=== PATIENT | female | born 1960 | race Caucasian/White ===

== ENCOUNTER 2022-10-28 16:15 | Observation (INO) | payer OTHER, SELFPAY ==
[2022-10-28] VITALS (8 sets, daily range): BP systolic 111–138; BP diastolic 56–78; PULSE 76–94; RESP 16–24; TEMP 36.4; O2SAT 91–99; BMI 28.3
[2022-10-28 16:44] LABS: Basophils Absolute Auto 0.1 K/mm3 (0.0-0.1); Basophils Percent Auto 0.6 % (0.2-1.2); Eosinophils Absolute Auto 0.3 K/mm3 (0-0.3); Eosinophils Percent Auto 2.4 % (0-4.4); Hemoglobin 14.2 g/dL (12.0-15.0); Immature Granulocyte Absolute 0.07 K/mm3 (0.00-0.031); Immature Granulocyte Percent A 0.5 % (0-0.5); Lymphocytes Absolute Auto 1.64 K/mm3 (0.9-3.2); Lymphocytes Percent Auto 12.1 % (18.3-44.2); Mean Corpuscular Hemoglobin 30.7 pg (26-34); Mean Corpuscular Volume 92.9 fl (80-100); Mean Platelet Volume 10.2 fl (7.4-10.4); Neutrophils Absolute Auto 10.4 K/mm3 (1.3-6.7); Neutrophils Percent Auto 77.4 % (45.5-73.1); Platelet Count Result 356 k/mm3 (150-375); Red Blood Count 4.63 M/mm3 (4.2-5.4); Red Cell Distribution Width 12.1 % (11.5-14.5); White Blood Count 13.5 K/mm3 (4.5-10.0)
[2022-10-28 16:57] LABS: Alanine Aminotransferase 17 U/L (6-35); Alkaline Phosphatase 104 U/L (38-126); Anion Gap 8 mmol/L (8-16); Aspartate Amino Transferase 18 U/L (14-36); Bilirubin,Total 0.5 mg/dL (0.2-1.3); Blood Urea Nitrogen 22 mg/dL (7-17); Calcium 9.6 mg/dL (8.4-10.2); Carbon Dioxide 31 mmol/L (22-30); Chloride 94 mmol/L (98-107); Estimated CRCL calculation 58 ml/min; Estimated Glomerular Filt Rate 50; Glucose 475 mg/dL (65-110); Magnesium 1.4 mg/dL (1.6-2.3); Phosphorus 3.2 mg/dL (2.5-4.5); Potassium 4.6 mmol/L (3.4-5.0); Sodium 133 mmol/L (137-145)
--- NOTE | 2022-10-28 17:57 | ED.GENADULT ---
HPI - General Adult General Chief complaint: Recheck/Abnormal Lab/Rx <Sandro Hdz PA-C - Last Filed: 10/28/22 21:13> Stated complaint: high blood sugar <Sandro Hdz PA-C - Last Filed: 10/28/22 21:13> Time Seen by Provider: 10/28/22 17:23 <Sandro Hdz PA-C - Last Filed: 10/28/22 21:13> Source: patient <JUDD Luo Last Filed: 10/28/22 21:13> Mode of arrival: ambulatory <Sandro Hdz PA-C - Last Filed: 10/28/22 21:13> Limitations: no limitations <Sandro Hdz PA-C - Last Filed: 10/28/22 21:13> History of Present Illness HPI narrative: This is a 62-year-old female who presents to the ED with chief complaint of high blood sugars diagnosed at her outpatient appointment earlier today. They recommended that she go to an ER due to the abnormally high sugars. Patient recently had a CVA and was being treated at [facility]. She was discharged Thursday afternoon. She was receiving insulin in the hospital. She has a previous prescription for long-acting insulin but has not been able to pick it up in the last couple of days. She and family members state that she was sent to the ER to rule out DKA. Patient reports residual left-sided deficits in her leg and arm. She also has some speech deficit. Patient has additional complaints of left arm redness and tenderness at the AC. She states there is an infection of present from where the IV was in the hospital. She was given a prescription for Augmentin by her doctor today for this and they were going to recheck in a few days at her next appointment. Denies fevers, chills, nausea, vomiting, abdominal pain. Patient states she is feeling fine otherwise. <Sandro Hdz PA-C - Last Filed: 10/28/22 21:13> Related Data Home medications: Home Medications Medication Instructions Recorded Confirmed aspirin 81 mg chewable tablet 1 tablet PO DAILY 10/28/22 10/28/22 atorvastatin 40 mg tablet 40 mg PO DAILY 10/28/22 10/28/22 clotrimazole 1 % topical cream 1 applic topical BID 10/28/22 10/28/22 insulin glargine 100 unit/mL (3 10 unit subcut HS 10/28/22 10/28/22 mL) subcutaneous pen (Lantus Solostar U-100 Insulin) <Sandro Hdz PA-C - Last Filed: 10/28/22 21:13> Allergies/adverse reactions: Allergies Allergy/AdvReac Type Severity Reaction Status Date / Time No Known Allergies Allergy Verified 10/29/22 23:28 <Sandro Hdz PA-C - Last Filed: 10/28/22 21:13> PMFSH Social History Social History: Social History Smoking status: Never smoker Alcohol intake: never Substance use: never Lack of Transportation: No Lack of Food: Never True Current Housing: I Have Housing Concerned About Future Housing: No Difficulty Paying Gas/Electric Bills: No Difficulty Paying for Meds: No Currently Unemployed: No Education: High School Diploma/GED Difficulty w/ Childcare or Family Care: No Spiritual care concerns: No <Sandro Hdz PA-C - Last Filed: 10/28/22 21:13> Exam Narrative: GENERAL: Well-appearing, well-nourished, and in no acute distress. HEAD: Normocephalic, atraumatic. EYES: PERRLA and EOMI. ENT: Nares clear, no rhinorrhea or epistaxis. Mucous membranes moist. Oropharynx without tonsillar hypertrophy exudate or other lesions. NECK: Supple. No adenopathy or masses. CHEST: No respiratory distress. Clear to auscultation. No wheezes rales or rhonchi HEART: Regular rate and rhythm. No murmur heard. Normal peripheral pulses. ABDOMEN: Soft, nontender, nondistended, normal active bowel sounds. MSK: Normal range of motion. No edema. SKIN: 5 x 5 cm area of erythema to the left antecubital fossa. There is a central abscess appearing lesion. The area is very indurated. No active drainage. Warm to touch and quite tender. NEURO: Alert and oriented x3. No deficits above baseline. PSYCH: Normal mood and affect. <JUDD Luo
[2022-10-28 18:17] LABS: Appearance Urine Cloudy (Clear); Bacteria Urine 3+ /hpf; Bilirubin Urine Negative (Negative); Blood Urine 3+ (Negative); Color Urine Yellow (Yellow); Glucose Urine UA 3+ mg/dL (Negative); Ketones Urine Negative (Negative); Leukocyte Esterase Ur 2+ LEU/UL (Negative); Need Manual Microscopic Reviewed; Nitrate Urine Negative (Negative); Non Pathogenic Casts 0-2; Protein Urine 2+ mg/dL (Negative); Specific Grav Ur 1.025 (1.001-1.035); Squamous Epithelial Cell Urine Few /hpf (Few); Urobilinogen Urine 0.2 mg/dL (<2.0); WBC Urine >100 /hpf
[2022-10-28 18:19] LABS: Add Urine Microscopic? YES
[2022-10-28] MEDS: LACTATED RINGERS 1,000 ML 999 ML IV CONT ×2 (18:23)
[2022-10-28] MEDS: ONDANSETRON INJ 4 MG/2 ML VIAL IV PUSH (19:12)
[2022-10-28] MEDS: MORPHINE SULFATE (*CRX) 4 MG/ML INJ IV PUSH (19:12)
[2022-10-28] MEDS: CEFEPIME 2 GM/NS 50 ML 2 GM/50 ML BAG IVPB (19:13)
[2022-10-28 19:34] LABS: Glucose Point of Care 425 mg/dl (65-105)
[2022-10-28] MEDS: INSULIN HUMAN REGULAR (*BKC) 100 UNITS/ML 10 UNITS IV PUSH (19:38)
[2022-10-28] MEDS: metroNIDAZOLE 500 MG/ISO 100ML 500 MG/100 ML BAG 100 MG IVPB (19:51)
--- NOTE | 2022-10-28 20:24 | PM.IMHP ---
H&P: HPI History of Present Illness Date/Time: 10/28/22 20:24 Chief Complaint: Elevated blood sugars. Narrative: This is a 62-year-old with a past medical history including but not limited to recent stroke from which she was discharged from [facility]. She was sent to the ED with chief complaint of high blood sugars diagnosed at her outpatient appointment earlier today.? They recommended that she go to an ER due to the abnormally high sugars.? Patient recently had a CVA and was being treated at [facility] and was discharged Thursday afternoon.? She has a previous prescription for long-acting insulin but has not been able to pick it up in the last couple of days.? She and family members state that she was sent to the ER to rule out DKA. Patient reports residual left-sided deficits in her leg and arm.? She also has some speech deficit.Patient has additional complaints of left arm redness and tenderness at the AC.? She states there is an infection of present from where the IV was in the hospital.? She was given a prescription for Augmentin by her doctor today for this and they were going to recheck in a few days at her next appointment.? Denies fevers, chills, nausea, vomiting, abdominal pain.? Patient states she is feeling fine otherwise. On arrival to the emergency department, the patient was stable and afebrile with a temperature of 97.6?, pulse rate 94, respirations 16, blood pressure 124/78, pulse ox 96% on room air. Her CBC showed leukocytosis with 13.5 WBC, hemoglobin 14.2, hematocrit 43, platelet count 3 5 6. Her chemistry shows a sodium of 133, potassium 4.6, chloride 94, bicarbonate 31, BUN 22, creatinine 1.1 and glucose 475. She was given VA in insulin 10 units IV in started on IV antibiotic with cefepime. Hospital medicine was consulted for further evaluation and management. Patient will be admitted to the med surge unit under observation. Review of Systems Review of Systems: CONSTITUTIONAL: Negative for any fevers, chills, night sweats, tiredness, fatigue, malaise, anorexia or weight loss. CARDIOVASCULAR: Negative for chest pain, palpitations, dizziness, orthopnea or lower extremity edema. RESPIRATORY: Negative for shortness of breath, cough, wheezing, sputum. GASTROINTESTINAL: Negative for nausea vomiting diarrhea abdominal pain. GENITOURINARY: Negative for frequency, nocturia, dysuria, hematuria. GYNECOLOGIC: Negative for abnormal bleeding. HEMATOLOGIC: Negative for any abnormal bleeding or bruising. MUSCULOSKELETAL: Negative for joint swelling, stiffness or pain. SKIN: Positive for left arm is erythematous rash. Negative for drainage, oozing or eruption. NEUROLOGIC: Positive for left-sided neurologic deficits. PSYCHIATRIC: Negative for anxiety, panic, depression. [facility] Social History Social History Smoking status: Never smoker Alcohol intake: never Substance use: never Lack of Transportation: No Lack of Food: Never True Current Housing: I Have Housing Concerned About Future Housing: No Difficulty Paying Gas/Electric Bills: No Difficulty Paying for Meds: No Currently Unemployed: No Education: High School Diploma/GED Difficulty w/ Childcare or Family Care: No Spiritual care concerns: No Meds Home Medications and Allergies Home Medications Medication Instructions Recorded Confirmed Type amoxicillin 875 mg-potassium 1 tablet PO BID 10/28/22 10/28/22 History clavulanate 125 mg tablet aspirin 81 mg chewable tablet 1 tablet PO DAILY 10/28/22 10/28/22 History atorvastatin 40 mg tablet 40 mg PO DAILY 10/28/22 10/28/22 History clotrimazole 1 % topical cream 1 applic topical BID 10/28/22 10/28/22 History insulin glargine 100 unit/mL (3 10 unit subcut HS 10/28/22 10/28/22 History mL) subcutaneous pen (Lantus Solostar U-100 Insulin) Allergies Allergy/AdvReac Type Severity Reaction Status Date / Time No Known Allergies Allergy Ve
[2022-10-28 20:26] LABS: Beta-Hydroxybutyrate/Acetoacetate 0.26 mmol/L (0.02-0.27)
[2022-10-28 20:36] LABS: Glucose Point of Care 255 mg/dl (65-105)
[2022-10-28] MEDS: LACTATED RINGERS 1,000 ML 125 ML IV CONT (22:45)
[2022-10-28 22:48] LABS: Glucose Point of Care 219 mg/dl (65-105)
[2022-10-28] MEDS: INSULIN GLARGINE (*BKC) 100 UNITS/ML 15 UNITS SUB-Q (22:49)
[2022-10-29] MEDS: AMPICILLIN SULB 3 GM/NS 100 ML 3 GM/100 ML VIAL IVPB ×4 (00:46→18:01)
[2022-10-29] MEDS: MAGNESIUM SULF 1 GM/D5W 100 ML 1 GM/100 ML BAG IVPB (00:51)
[2022-10-29 01:11] LABS: Hemoglobin A1C 13.1 % (<5.7)
[2022-10-29 04:33] VITALS: BP 107/50; PULSE 83; RESP 16; TEMP 36.4; O2SAT 94
[2022-10-29] MEDS: ACETAMINOPHEN 325 MG TABLET 650 MG PO (04:39)
[2022-10-29 07:12] LABS: Creatine Kinase 107 U/L (30-135); Estimated CRCL calculation 58 ml/min; Estimated Glomerular Filt Rate 56; Magnesium 1.5 mg/dL (1.6-2.3)
[2022-10-29 07:21] LABS: Glucose Point of Care 259 mg/dl (65-105)
[2022-10-29] MEDS: INSULIN ASPART (*BKC) 100 UNITS/ML SUB-Q ×4 (08:59→21:11)
[2022-10-29] MEDS: ATORVASTATIN 40 MG TABLET PO (09:00)
[2022-10-29] MEDS: ASPIRIN 81 MG CHEWABLE TABLET PO (09:01)
[2022-10-29] MEDS: ENOXAPARIN 40 MG/0.4 ML SYRINGE SUB-Q (09:02)
[2022-10-29] MEDS: MICONAZOLE NITRATE 2% CREAM 30 GM TUBE 1 APPLIC TOPICAL ×2 (09:02→18:00)
[2022-10-29 11:35] LABS: Glucose Point of Care 296 mg/dl (65-105)
[2022-10-29] MEDS: LACTATED RINGERS 1,000 ML 125 ML IV CONT (12:33)
[2022-10-29 14:00] VITALS: BP 114/58; PULSE 68; RESP 14; TEMP 37; O2SAT 97
--- NOTE | 2022-10-29 16:05 | WPDPN ---
Progress Note: A&P Assessment and Plan (1) Cellulitis and abscess of other specified site: Code(s): L03.818 - Cellulitis of other sites; L02.818 - Cutaneous abscess of other sites Status: Acute Assessment and Plan: Patient was started on IV antibiotic with cefepime and vancomycin. Will continue with Unasyn 3 g IV q.6 hours. Given recent hospital admission and diabetes status, a resistant organism may be a concern. Follow up blood cultures and de-escalate if no MRSA growth. The patient pain will be managed appropriately. Warm compresses as needed. 10/29/2022 interval history: Patient presented with hyperglycemia a blood sugar have trended down, also patient is found to cellulitis in her left arm states started on IV infiltrated, patient states it is painful, there is redness and some swelling, patient is being treated with ampicillin and vancomycin blood and wound cultures were not collected, will continue clinically, urine culture is pending will monitor. (2) Acute hyperglycemia: Code(s): R73.9 - Hyperglycemia, unspecified Status: Acute Assessment and Plan: She has no evidence of DKA. Patient is not acidotic. No additional plan. Patient will be treated with IV fluid, insulin 10 units IV x2 doses with improvement of blood glucose down to 219. Continue home Lantus 10 units at bedtime. A single dose of 15 units at bedtime was given tonight. Patient was started on insulin sliding scale coverage. Monitor blood glucose. (3) History of CVA (cerebrovascular accident): Code(s): Z86.73 - Personal history of transient ischemic attack (TIA), and cerebral infarction without residual deficits Status: Acute Plan Per home medication list, patient is on aspirin. Will start the patient on high-dose statin as tolerated. Monitor CK level. Subjective Date/time seen: 10/29/22 16:05 Interval history: Elevated blood sugars. HPI-Narrative: This is a 62-year-old with a past medical history including but not limited to recent stroke from which she was discharged from [facility].? She was sent to the ED with chief complaint of high blood sugars diagnosed at her outpatient appointment earlier today.? They recommended that she go to an ER due to the abnormally high sugars.? Patient recently had a CVA and was being treated at [facility] and was discharged Thursday afternoon.? ?She has a previous prescription for long-acting insulin but has not been able to pick it up in the last couple of days.? She and family members state that she was sent to the ER to rule out DKA. Patient reports residual left-sided deficits in her leg and arm.? She also has some speech deficit.Patient has additional complaints of left arm redness and tenderness at the AC.? She states there is an infection of present from where the IV was in the hospital.? She was given a prescription for Augmentin by her doctor today for this and they were going to recheck in a few days at her next appointment.? Denies fevers, chills, nausea, vomiting, abdominal pain.? Patient states she is feeling fine otherwise. On arrival to the emergency department, the patient was stable and afebrile with a temperature of 97.6?, pulse rate 94, respirations 16, blood pressure 124/78, pulse ox 96% on room air.? Her CBC showed leukocytosis with 13.5 WBC, hemoglobin 14.2, hematocrit 43, platelet count 3 5 6.? Her chemistry shows a sodium of 133, potassium 4.6, chloride 94, bicarbonate 31, BUN 22, creatinine 1.1 and glucose 475. She was given VA in insulin 10 units IV in started on IV antibiotic with cefepime.? Hospital medicine was consulted for further evaluation and management. 10/29/2022 interval history: Patient presented with hyperglycemia a blood sugar have trended down, also patient is found to cellulitis in her left arm states started on IV infiltrated, patient states it is painful, there is redness and some swelling, patient is being treated with ampicillin and vancomycin blood and woun
[2022-10-29 16:45] LABS: Glucose Point of Care 327 mg/dl (65-105)
[2022-10-29 20:00] VITALS: PULSE 64; RESP 14; O2SAT 97
[2022-10-29] MEDS: INSULIN GLARGINE (*BKC) 100 UNITS/ML 10 UNITS SUB-Q (21:10)
[2022-10-29 21:44] LABS: Glucose Point of Care 341 mg/dl (65-105)
[2022-10-29 21:49] VITALS: BP 124/57; PULSE 64; RESP 14; TEMP 36; O2SAT 97
[2022-10-30] MEDS: LACTATED RINGERS 1,000 ML 125 ML IV CONT ×2 (01:53→12:35)
[2022-10-30] MEDS: AMPICILLIN SULB 3 GM/NS 100 ML 3 GM/100 ML VIAL IVPB ×4 (01:56→17:06)
--- NOTE | 2022-10-30 03:48 | ADMGEN ---
This patient, Maria Long, was admitted to [facility] Surg Room 323-01. Patient/family oriented to hospital policies and general routines including ID bracelet, bed and alarms, visiting hours, pain management, procedures, bathroom and other care routines, personal items, smoking policy, room service/diet, and visiting hours. Information on how to activate the Rapid Response Team has been discussed. Patient/Family are encouraged to report perceived risks to care and to ask questions if they do not understand what they are told or what they should do.
[2022-10-30 06:00] VITALS: BP 137/58; PULSE 70; RESP 16; TEMP 35.7; O2SAT 93
[2022-10-30 06:34] LABS: Hemoglobin 11.2 g/dL (12.0-15.0); Mean Corpuscular HGB Conc 32.9 g/dl (32-36); Mean Corpuscular Hemoglobin 30.4 pg (26-34); Mean Corpuscular Volume 92.4 fl (80-100); Mean Platelet Volume 10.3 fl (7.4-10.4); Platelet Count Result 282 k/mm3 (150-375); Red Blood Count 3.68 M/mm3 (4.2-5.4); Red Cell Distribution Width 11.8 % (11.5-14.5); White Blood Count 8.8 K/mm3 (4.5-10.0)
[2022-10-30 06:58] LABS: Anion Gap 4 mmol/L (8-16); Blood Urea Nitrogen 13 mg/dL (7-17); Calcium 8.5 mg/dL (8.4-10.2); Carbon Dioxide 29 mmol/L (22-30); Chloride 105 mmol/L (98-107); Estimated CRCL calculation 64 ml/min; Estimated Glomerular Filt Rate > 60; Glucose 253 mg/dL (65-110); Magnesium 1.3 mg/dL (1.6-2.3); Potassium 3.9 mmol/L (3.4-5.0); Sodium 138 mmol/L (137-145)
[2022-10-30 08:11] LABS: Glucose Point of Care 281 mg/dl (65-105)
[2022-10-30] MEDS: ATORVASTATIN 40 MG TABLET PO (09:14)
[2022-10-30] MEDS: ASPIRIN 81 MG CHEWABLE TABLET PO (09:14)
[2022-10-30] MEDS: ENOXAPARIN 40 MG/0.4 ML SYRINGE SUB-Q (09:14)
[2022-10-30] MEDS: MAGNESIUM SULFATE 3GM/D5W100ML 3 GM/100 ML BAG IVPB (09:15)
[2022-10-30] MEDS: INSULIN ASPART (*BKC) 100 UNITS/ML SUB-Q ×4 (09:15→21:40)
[2022-10-30] MEDS: MICONAZOLE NITRATE 2% CREAM 30 GM TUBE 1 APPLIC TOPICAL ×2 (09:16→17:07)
[2022-10-30 12:12] LABS: Glucose Point of Care 354 mg/dl (65-105)
[2022-10-30 13:38] VITALS: BP 128/57; PULSE 64; RESP 18; TEMP 37.2; O2SAT 96
--- NOTE | 2022-10-30 16:23 | WPDPN ---
Progress Note: A&P Assessment and Plan (1) Cellulitis and abscess of other specified site: Code(s): L03.818 - Cellulitis of other sites; L02.818 - Cutaneous abscess of other sites Status: Acute Assessment and Plan: Patient was started on IV antibiotic with cefepime and vancomycin. Will continue with Unasyn 3 g IV q.6 hours. Given recent hospital admission and diabetes status, a resistant organism may be a concern. Follow up blood cultures and de-escalate if no MRSA growth. The patient pain will be managed appropriately. Warm compresses as needed. 10/30/2022 interval history: Patient presented with hyperglycemia a blood sugar have trended down, also patient is found to have cellulitis in her left arm states started on IV infiltrated while she was at [facility], patient states it is painful, there is redness and some swelling, patient is being treated with ampicillin and vancomycin blood and wound cultures were not collected, will continue clinically, urine culture is pending will monitor. (2) Acute hyperglycemia: Code(s): R73.9 - Hyperglycemia, unspecified Status: Acute Assessment and Plan: She has no evidence of DKA. Patient is not acidotic. No additional plan. Patient will be treated with IV fluid, insulin 10 units IV x2 doses with improvement of blood glucose down to 219. Continue home Lantus 10 units at bedtime. A single dose of 15 units at bedtime was given tonight. Patient was started on insulin sliding scale coverage. Monitor blood glucose. (3) History of CVA (cerebrovascular accident): Code(s): Z86.73 - Personal history of transient ischemic attack (TIA), and cerebral infarction without residual deficits Status: Acute Plan Per home medication list, patient is on aspirin. Will start the patient on high-dose statin as tolerated. Monitor CK level. Subjective Date/time seen: 10/30/22 16:23 Interval history: Elevated blood sugars. HPI-Narrative: This is a 62-year-old with a past medical history including but not limited to recent stroke from which she was discharged from [facility].? She was sent to the ED with chief complaint of high blood sugars diagnosed at her outpatient appointment earlier today.? They recommended that she go to an ER due to the abnormally high sugars.? Patient recently had a CVA and was being treated at [facility] and was discharged Thursday afternoon.? ?She has a previous prescription for long-acting insulin but has not been able to pick it up in the last couple of days.? She and family members state that she was sent to the ER to rule out DKA. Patient reports residual left-sided deficits in her leg and arm.? She also has some speech deficit.Patient has additional complaints of left arm redness and tenderness at the AC.? She states there is an infection of present from where the IV was in the hospital.? She was given a prescription for Augmentin by her doctor today for this and they were going to recheck in a few days at her next appointment.? Denies fevers, chills, nausea, vomiting, abdominal pain.? Patient states she is feeling fine otherwise. On arrival to the emergency department, the patient was stable and afebrile with a temperature of 97.6?, pulse rate 94, respirations 16, blood pressure 124/78, pulse ox 96% on room air.? Her CBC showed leukocytosis with 13.5 WBC, hemoglobin 14.2, hematocrit 43, platelet count 3 5 6.? Her chemistry shows a sodium of 133, potassium 4.6, chloride 94, bicarbonate 31, BUN 22, creatinine 1.1 and glucose 475. She was given VA in insulin 10 units IV in started on IV antibiotic with cefepime.? Hospital medicine was consulted for further evaluation and management. 10/30/2022 interval history: Patient presented with hyperglycemia a blood sugar have trended down, also patient is found to have cellulitis in her left arm states started on IV infiltrated while she was [facility], patient states it is painful, there is redness and some swelling, patient is being rakan
[2022-10-30 17:09] LABS: Glucose Point of Care 270 mg/dl (65-105)
[2022-10-30 20:00] VITALS: PULSE 62; RESP 18; O2SAT 97
[2022-10-30 21:20] VITALS: BP 146/62; PULSE 62; RESP 18; TEMP 37.1; O2SAT 97
[2022-10-30 21:36] LABS: Glucose Point of Care 308 mg/dl (65-105)
[2022-10-30] MEDS: INSULIN GLARGINE (*BKC) 100 UNITS/ML 10 UNITS SUB-Q (21:40)
[2022-10-31] MEDS: AMPICILLIN SULB 3 GM/NS 100 ML 3 GM/100 ML VIAL IVPB ×4 (00:34→17:34)
[2022-10-31 06:00] VITALS: BP 130/58; PULSE 56; RESP 18; TEMP 36.9; O2SAT 98
[2022-10-31 07:43] LABS: Hematocrit 33.5 % (37.0-47.0); Mean Corpuscular HGB Conc 32.8 g/dl (32-36); Mean Corpuscular Hemoglobin 30.7 pg (26-34); Mean Corpuscular Volume 93.6 fl (80-100); Mean Platelet Volume 10.3 fl (7.4-10.4); Platelet Count Result 300 k/mm3 (150-375); Red Blood Count 3.58 M/mm3 (4.2-5.4); Red Cell Distribution Width 11.6 % (11.5-14.5); White Blood Count 8.5 K/mm3 (4.5-10.0)
[2022-10-31 07:49] LABS: Glucose Point of Care 263 mg/dl (65-105)
[2022-10-31 07:54] LABS: Anion Gap 8 mmol/L (8-16); Blood Urea Nitrogen 9 mg/dL (7-17); Calcium 8.5 mg/dL (8.4-10.2); Carbon Dioxide 27 mmol/L (22-30); Chloride 104 mmol/L (98-107); Estimated CRCL calculation 71 ml/min; Estimated Glomerular Filt Rate > 60; Glucose 236 mg/dL (65-110); Magnesium 1.5 mg/dL (1.6-2.3); Potassium 3.8 mmol/L (3.4-5.0); Sodium 139 mmol/L (137-145)
[2022-10-31] MEDS: INSULIN ASPART (*BKC) 100 UNITS/ML SUB-Q ×3 (08:35→17:34)
[2022-10-31] MEDS: ATORVASTATIN 40 MG TABLET PO (08:35)
[2022-10-31] MEDS: ENOXAPARIN 40 MG/0.4 ML SYRINGE SUB-Q (08:35)
[2022-10-31] MEDS: ASPIRIN 81 MG CHEWABLE TABLET PO (08:38)
[2022-10-31] MEDS: MICONAZOLE NITRATE 2% CREAM 30 GM TUBE 1 APPLIC TOPICAL ×2 (08:39→17:36)
[2022-10-31] MEDS: POTASSIUM CHLORIDE 20 MEQ ER TABLET 40 MEQ PO (08:54)
[2022-10-31] MEDS: MAGNESIUM SULF 2 GM/WATER 50ML 2 GM/50 ML BAG IVPB (08:54)
[2022-10-31 11:59] LABS: Glucose Point of Care 278 mg/dl (65-105)
[2022-10-31 14:00] VITALS: BP 131/63; PULSE 66; RESP 18; TEMP 36.2; O2SAT 94
--- NOTE | 2022-10-31 15:22 | WPDCN ---
Assessment and Plan Assessment and plan (1) Cellulitis and abscess of other specified site: Code(s): L03.818 - Cellulitis of other sites; L02.818 - Cutaneous abscess of other sites Status: Acute Assessment and Plan: The cellulitis and abscess in the left antecubital fossa is improving. She has been on IV antibiotics and can transition to an oral antibiotic if she is discharged home. There has been spontaneous drainage of the abscess which was now very small. The cellulitis looks to be improving. There are no neurovascular deficits the left arm. She be discharged home on oral antibiotic can follow-up see me in the office in [address] to [address] antibiotic ointment on the wound and cover with dry gauze and a large Band-Aid. No need for additional surgical drainage of the very small abscess. HPI Data of Consult Date/Time: 10/31/22 15:22 Requesting Physician: Ayanna Marc MD Primary Care Provider: Hyacinth Mujica, Consult Narrative Reason for consult: Left antecubital fossa cellulitis and small abscess. Narrative: Maria Long is a 62 year old female admitted to [facility] due to hyperglycemia. She apparently was treated recently at [facility] for stroke. During hospitalization she had a left antecubital fossa IV which has now become infected. She denies having significant pain in the area unless it is palpated. I have been asked to evaluate the wound to see if he has any surgical drainage. Review of Systems Review of Systems: The remainder of the review of systems to include constitutional, HEENT, cardiovascular, respiratory, GI, , integumentary, musculoskeletal, endocrine, immunologic, hematologic, psychiatric, and neurologic are all negative except for which is mentioned above in the HPI. [facility] Social History Social History Smoking status: Never smoker Alcohol intake: never Substance use: never Lack of Transportation: No Lack of Food: Never True Current Housing: I Have Housing Concerned About Future Housing: No Difficulty Paying Gas/Electric Bills: No Difficulty Paying for Meds: No Currently Unemployed: No Education: High School Diploma/GED Difficulty w/ Childcare or Family Care: No Spiritual care concerns: No Meds Home Medications and Allergies Home Medications Medication Instructions Recorded Confirmed Type amoxicillin 875 mg-potassium 1 tablet PO BID 10/28/22 10/28/22 History clavulanate 125 mg tablet aspirin 81 mg chewable tablet 1 tablet PO DAILY 10/28/22 10/28/22 History atorvastatin 40 mg tablet 40 mg PO DAILY 10/28/22 10/28/22 History clotrimazole 1 % topical cream 1 applic topical BID 10/28/22 10/28/22 History insulin glargine 100 unit/mL (3 10 unit subcut HS 10/28/22 10/28/22 History mL) subcutaneous pen (Lantus Solostar U-100 Insulin) Allergies Allergy/AdvReac Type Severity Reaction Status Date / Time No Known Allergies Allergy Verified 10/29/22 23:28 Vital Signs Vital Signs - 24 hr 10/30/22 21:20 10/30/22 20:00 10/31/22 06:00 Temperature 37.1 C 36.9 C Pulse Rate 62 62 56 L Respiratory Rate 18 18 18 Blood Pressure 146/62 H 130/58 L Pulse Oximetry 97 97 98 Oxygen Delivery Room Air 10/31/22 08:30 10/31/22 14:00 Temperature 36.2 C L Pulse Rate 66 Respiratory Rate 18 Blood Pressure 131/63 Pulse Oximetry 94 Oxygen Delivery Room Air Exam Const: General: comfortable and no acute distress Eyes: Sclera: sclerae normal Pupils: Equal, round and reactive pupils present EOM: EOMs intact bilaterally Neck: Neck: supple and no JVD Resp: Effort & Inspection: normal respiratory effort Auscultation: clear to auscultation bilaterally Cardio: Rate: regular rate Rhythm: regular rhythm GI: GI Palp: Yes Soft to palpation, No Firmness to palpation present (GI), No Tenderness to palpation pre
--- NOTE | 2022-10-31 16:09 | PM.DS ---
DS: Admitting Diagnosis Discharge Date 10/31/2022 Admitting Diagnosis Elevated blood sugars. DS: Discharge Diagnosis Discharge Diagnosis (1) Cellulitis and abscess of other specified site: Code(s): L03.818 - Cellulitis of other sites; L02.818 - Cutaneous abscess of other sites Status: Acute Assessment and Plan: Patient was started on IV antibiotic with cefepime and vancomycin. Will continue with Unasyn 3 g IV q.6 hours. Given recent hospital admission and diabetes status, a resistant organism may be a concern. Follow up blood cultures and de-escalate if no MRSA growth. The patient pain will be managed appropriately. Warm compresses as needed. 10/30/2022 interval history: Patient presented with hyperglycemia a blood sugar have trended down, also patient is found to have cellulitis in her left arm states started on IV infiltrated while she was at [facility], patient states it is painful, there is redness and some swelling, patient is being treated with ampicillin and vancomycin blood and wound cultures were not collected, will continue clinically, urine culture is pending will monitor. (2) Acute hyperglycemia: Code(s): R73.9 - Hyperglycemia, unspecified Status: Acute Assessment and Plan: She has no evidence of DKA. Patient is not acidotic. No additional plan. Patient will be treated with IV fluid, insulin 10 units IV x2 doses with improvement of blood glucose down to 219. Continue home Lantus 10 units at bedtime. A single dose of 15 units at bedtime was given tonight. Patient was started on insulin sliding scale coverage. Monitor blood glucose. (3) History of CVA (cerebrovascular accident): Code(s): Z86.73 - Personal history of transient ischemic attack (TIA), and cerebral infarction without residual deficits Status: Acute Plan Per home medication list, patient is on aspirin. Will start the patient on high-dose statin as tolerated. Monitor CK level. DS: Summary Hospital Course Reason for hospitalization: Elevated blood sugars. Narrative: This is a 62-year-old with a past medical history including but not limited to recent stroke from which she was discharged from [facility].? She was sent to the ED with chief complaint of high blood sugars diagnosed at her outpatient appointment earlier today.? They recommended that she go to an ER due to the abnormally high sugars.? Patient recently had a CVA and was being treated at [facility] and was discharged Thursday afternoon.? ?She has a previous prescription for long-acting insulin but has not been able to pick it up in the last couple of days.? She and family members state that she was sent to the ER to rule out DKA. Patient reports residual left-sided deficits in her leg and arm.? She also has some speech deficit.Patient has additional complaints of left arm redness and tenderness at the AC.? She states there is an infection of present from where the IV was in the hospital.? She was given a prescription for Augmentin by her doctor today for this and they were going to recheck in a few days at her next appointment.? Denies fevers, chills, nausea, vomiting, abdominal pain.? Patient states she is feeling fine otherwise. On arrival to the emergency department, the patient was stable and afebrile with a temperature of 97.6?, pulse rate 94, respirations 16, blood pressure 124/78, pulse ox 96% on room air.? Her CBC showed leukocytosis with 13.5 WBC, hemoglobin 14.2, hematocrit 43, platelet count 3 5 6.? Her chemistry shows a sodium of 133, potassium 4.6, chloride 94, bicarbonate 31, BUN 22, creatinine 1.1 and glucose 475. She was given VA in insulin 10 units IV in started on IV antibiotic with cefepime.? Hospital medicine was consulted for further evaluation and management.? Patient will be admitted to the med surge unit under observation. Hospital Course: Patient presented with hyperglycemia a blood sugar have trended down, also patient is found to have cellulitis in her lef
[2022-10-31 16:42] LABS: Glucose Point of Care 321 mg/dl (65-105)
== END 2022-10-31 18:58 | disposition home or self-care (01) ==
LOC: ANHED 19:19 → ANH3MEDSUR 22:02
PROVIDERS: Emergency Medicine; Admitting Provider Internal Medicine; Emergency Provider Physician Assistant; PCP Emergency Medicine; Visit Provider Family Medicine
DX: L03.114 Cellulitis of left upper limb (principal); L02.414 Cutaneous abscess of left upper limb; R73.9 Hyperglycemia, unspecified; I69.354 Hemiplegia and hemiparesis following cerebral infarction affecting left non-dominant side; I69.328 Other speech and language deficits following cerebral infarction; Z79.82 Long term (current) use of aspirin; Z79.4 Long term (current) use of insulin; Z79.899 Other long term (current) drug therapy; Z79.2 Long term (current) use of antibiotics
CPT/HCPCS: 10060; 36415; 80048; 80053; 81001; 82010; 82550; 82565; 82948; 83036; 83735; 84100; 85025; 85027; 87086; 96361; 96365; 96366; 96367; 96372; 96375; 96376; 97161; 97165; 99285; A9270; G0378; G0379; J0295; J0692; J1650; J1815; J1836; J2270; J2405; J3370; J3475; J7120

== ENCOUNTER 2023-07-17 15:56 | Inpatient (IN) | payer OTHER, SELFPAY ==
[2023-07-17] VITALS (10 sets, daily range): BP systolic 112–146; BP diastolic 54–75; PULSE 66–97; RESP 18–20; TEMP 36.2–36.7; O2SAT 92–99; BMI 28.4
--- NOTE | ~2023-07-17 | CT_ITS ---
Non-contrast CT scan of the Abdomen Clinical indication: Right renal mass Technique: 2.5 mm axial scans were obtained through the abdomen without intravenous or oral contrast . Dose reduction technique was used on this scan by utilizing automated exposure control and iterativ e reconstruction technique. The dose-length product (DLP) was 543.52 mGy-cm. Findings: Images through the lung bases reveal no abnormalities. There is no evidence of renal or ureteral calculi. The kidneys and the ureters are nondilated. 6.3 cm right renal cyst present with thin calcified septation. No other renal mass identified. The liver, spleen, pancreas, and adrenals appear normal. Gallbladder is absent. There are atheroscler otic calcifications of the aorta. Visualized bowel loops are unremarkable. There is a superior ventral fat-containing hernia. No ascite s. L3 compression fracture present. Impression: 6.3 cm benign-appearing right renal cyst with probable thin calcified septation. Pre and postcontrast exam would be more sensitive for small enhancing soft tissue components. Chronic L3 compression fracture. Superior ventral fat-containing hernia. Reviewed, dictated and finalized at [facility]. Impression: 6.3 cm benign-appearing right renal cyst with probable thin calcified septation . Pre and postcontrast exam would be more sensitive for small enhancing soft ti ssue components. Chronic L3 compression fracture. Superior ventral fat-containing hernia.
--- NOTE | ~2023-07-17 | MR_ITS ---
EXAMINATION: MR brain/brain stem wo/w con DATE: 07/18/2023 14:28 INDICATION: CVA TECHNIQUE: Magnetic resonance imaging (MRI) of the brain and brainstem was performed without and with 16 mL MultiHance intravenous contrast. Sequences included sagittal and axial T1-weighted SE, axial d iffusion-weighted FS EPI ASSET, axial T2*-weighted GRE, axial T2-weighted FLAIR, and axial T2-weighte d Propeller. Postcontrast sequences included axial and coronal T1 FSE Apparent diffusion coefficient (ADC) maps were created. COMPARISON: CT brain and CTA brain carotid 07/17/2023. FINDINGS: 4 mm focus of restricted diffusion in the inferior right thalamus. Focal old left basal ganglia and r ight periventricular white matter lacunar infarcts. Right occipital encephalomalacia. No MRI evidence of hemorrhage or extra-axial collection. No suspicious foci of susceptibility to suggest prior intra parenchymal hemorrhage. Scattered foci of white matter hyperintensity, likely representing mild small vessel ischemic disease. Mild generalized parenchymal volume loss. The basilar cisterns are patent. Flow voids are preserved. Paranasal sinus mucosal thickening. Bilateral lens replacements. IMPRESSION: 4 mm focal acute infarct in the inferior right thalamus. Reviewed, dictated and finalized at location [facility].
--- NOTE | ~2023-07-17 | CT_ITS ---
EXAMINATION: CTA brain carotid DATE: 07/17/2023 18:42 INDICATION: CVA suspected, left sided face, arm and leg numb TECHNIQUE: Computed tomographic angiography (CTA) of the head and neck was performed with 100 mL Omni paque-350 intravenous contrast. Automated exposure control and iterative reconstruction technique wer e employed. The dose-length product was 998.02 mGy-cm. Maximum intensity projection and volume rende red 3D-reconstructions were created by the technologist on a separate workstation. COMPARISON: CT brain, same date. FINDINGS: CTA HEAD: No large vessel occlusion, aneurysm, high flow vascular malformation, nidus or extravasation. Hypopla stic left P1 segment, with predominant flow via the left posterior communicating artery. The intradur al segment of the right vertebral artery appears to terminate in a cerebral artery, which is a normal variant. Old bilateral basal ganglia and right occipital infarcts, otherwise symmetric parenchymal e nhancement. Patent cerebral veins. CTA NECK: Aortic arch and proximal great vessels: Normal arch anatomy. Mild atherosclerotic calcification. Right common carotid, carotid bifurcation, and internal carotid artery: Mild calcified plaque at the bifurcation.There is 0% stenosis of the proximal right internal carotid artery relative to normal dis jeison artery lumen diameter (NASCET criteria). Left common carotid, carotid bifurcation, and internal carotid artery: Moderate calcified and noncalc ified plaque at the bifurcation.There is 19% stenosis of the proximal left internal carotid artery re lative to normal distal artery lumen diameter (NASCET criteria). Vertebral arteries: No significant plaque or stenosis. Left vertebral artery is dominant. Other findings: Paranasal sinus disease. Mild dependent atelectasis/edema. Subcentimeter left thyroid nodules which require no additional evaluation. IMPRESSION: No large vessel intracranial occlusion, high-grade intracranial stenosis, or aneurysm. No carotid or vertebral artery occlusion, dissection, or significant stenosis. Reviewed, dictated and finalized at location [facility]. IMPRESSION: No large vessel intracranial occlusion, high-grade intracranial stenosis, or an eurysm. No carotid or vertebral artery occlusion, dissection, or significant stenosis.
--- NOTE | ~2023-07-17 | CT_ITS ---
EXAMINATION: CT brain wo con DATE: 07/17/2023 16:53 INDICATION: Left-sided weakness and numbness TECHNIQUE: Computed tomography (CT) of the head was performed without intravenous contrast. Sagittal and coronal reconstructions were performed. The mA was adjusted according to patient size. Iterative reconstruction technique was employed. The dose-length product was 605.33 mGy-cm. COMPARISON: None FINDINGS: Small region of encephalomalacia in the right occipital lobe consistent with chronic infarct. Additio nal small old lacunar infarcts at the body of the left lentiform nucleus and at the right caudate nuc leus and adjacent right frontal lobe grant radiata. No acute intracranial hemorrhage, acute infarcti on or abnormal extra axial fluid collection. There is mild scattered white matter hypoattenuation con sistent with chronic small vessel ischemic disease. Symmetric prominence of the sulci consistent with mild age-appropriate diffuse cerebral volume loss. Ventricles are normal and symmetric. No mass/mass effect. Changes of bilateral intraocular lens replacement. The orbits and mastoid air cells are norm al. Mucosal thickening the paranasal sinuses with opacification of multiple left ethmoid air cells, t he left frontoethmoidal recess and partial opacification of the left frontal sinus. IMPRESSION: 1. A few old infarcts at the right occipital lobe and bilateral basal ganglia. No acute intracranial process. 2. Age-related changes including mild diffuse volume loss and mild scattered white matter hypoattenua tion consistent with chronic small vessel ischemic disease. 3. Sinus disease. Reviewed, dictated and finalized at location [facility]. IMPRESSION: 1. A few old infarcts at the right occipital lobe and bilateral basal ganglia. No acute intracranial process. 2. Age-related changes including mild diffuse volume loss and mild scattered wh ite matter hypoattenuation consistent with chronic small vessel ischemic diseas e. 3. Sinus disease.
--- NOTE | ~2023-07-17 | US_ITS ---
EXAMINATION: US renal BI DATE: 07/18/2023 13:15 INDICATION: elevated creatinine TECHNIQUE: Multiple grayscale and Doppler ultrasound images of the kidneys were obtained. COMPARISON: None. FINDINGS: The right kidney measures 12.0 x 6.2 x 5.6 cm. The left kidney measures 11.1 x 5.5 x 6.9 cm. The kidn eys demonstrate normal parenchymal echogenicity. 7.8 cm simple right upper pole mass, mostly anechoic , with echogenic, somewhat nodular appearing septae. There is no hydronephrosis. The bladder contains echogenic dependent debris. IMPRESSION: 7.8 cm right upper pole cystic mass, with echogenic somewhat nodular appearing septae, recommend CT o r MRI without and with contrast for further characterization. Echogenic dependent material in the urinary bladder may represent crystalline proteinaceous or hemorr hagic debris. Correlate with urinalysis Reviewed, dictated and finalized at [facility]. IMPRESSION: 7.8 cm right upper pole cystic mass, with echogenic somewhat nodular appearing septae, recommend CT or MRI without and with contrast for further characterizat ion. Echogenic dependent material in the urinary bladder may represent crystalline p roteinaceous or hemorrhagic debris. Correlate with urinalysis
--- NOTE | ~2023-07-17 | XR_ITS ---
EXAMINATION: XR chest 1V Exam Date/Time: 07/17/2023 16:57 CDT HISTORY: left sided weakness/numbness Comparison: None. RESULT: Lines, tubes, and devices: None. Lungs and pleura: Clear. Cardiomediastinal silhouette: Mild arch calcification. 2.2 cm ovoid opacity projecting over the righ t hilum/right pulmonary artery. Other: No acute osseous or upper abdominal finding. IMPRESSION: No focal consolidation, pleural effusion, or pneumothorax. 2.2 cm right hilar opacity probably representing the right pulmonary artery viewed en face, although hilar lymphadenopathy could appear similarly. Reviewed, dictated and finalized at location [facility]. IMPRESSION: No focal consolidation, pleural effusion, or pneumothorax. 2.2 cm right hilar opacity probably representing the right pulmonary artery vie wed en face, although hilar lymphadenopathy could appear similarly.
--- NOTE | 2023-07-17 16:31 | ECG_ITS ---
Measurements Intervals [place] Rate: 76 P: 37 IN: 169 QRS: -50 QRSD: 97 T: 75 QT: 368 QTc: 415 Interpretive Statements SINUS RHYTHM WITH OCCASIONAL VENTRICULAR PREMATURE COMPLEXES LEFT ANTERIOR FASCICULAR BLOCK [QRS AXIS <= -45, QR IN I, RS IN II] ANTEROSEPTAL MYOCARDIAL INFARCTION NO PREVIOUS ECG AVAILABLE FOR COMPARISON Electronically Signed On 07-18-2023 13:21:41 CDT by Mer Wells M.D.
[2023-07-17 16:37] LABS: Glucose Point of Care 340 mg/dl (65-105)
[2023-07-17 16:48] LABS: Basophils Absolute Auto 0.1 K/mm3 (0.0-0.1); Basophils Percent Auto 0.6 % (0.2-1.2); Eosinophils Absolute Auto 0.4 K/mm3 (0-0.3); Eosinophils Percent Auto 4.9 % (0-4.4); Hematocrit 36.6 % (37.0-47.0); Hemoglobin 12.1 g/dL (12.0-15.0); Immature Granulocyte Absolute 0.07 K/mm3 (0.00-0.031); Immature Granulocyte Percent A 0.9 % (0-0.5); Lymphocytes Absolute Auto 2.85 K/mm3 (0.9-3.2); Mean Corpuscular HGB Conc 33.1 g/dl (32-36); Mean Corpuscular Hemoglobin 29.7 pg (26-34); Mean Corpuscular Volume 89.7 fl (80-100); Mean Platelet Volume 9.8 fl (7.4-10.4); Monocytes Absolute Auto 0.7 K/mm3 (0.1-0.6); Monocytes Percent Auto 8.6 % (2.6-8.5); Neutrophils Absolute Auto 4.1 K/mm3 (1.3-6.7); Platelet Count Result 297 k/mm3 (150-375); Red Blood Count 4.08 M/mm3 (4.2-5.4); Red Cell Distribution Width 12.1 % (11.5-14.5); White Blood Count 8.2 K/mm3 (4.5-10.0)
[2023-07-17 16:58] LABS: Alanine Aminotransferase 8 U/L (6-35); Albumin Level 3.5 g/dL (3.5-5.1); Alkaline Phosphatase 106 U/L (38-126); Anion Gap 5 mmol/L (4-12); Aspartate Amino Transferase 17 U/L (14-36); Bilirubin,Total 0.6 mg/dL (0.2-1.3); Blood Urea Nitrogen 15 mg/dL (7-17); Calcium 9.6 mg/dL (8.4-10.2); Carbon Dioxide 26 mmol/L (22-30); Chloride 103 mmol/L (98-107); Estimated CRCL calculation 44 ml/min; Estimated Glomerular Filt Rate 45; Glucose 353 mg/dL (65-110); Potassium 4.2 mmol/L (3.4-5.0); Sodium 134 mmol/L (137-145)
[2023-07-17 17:00] LABS: Partial Thromboplastin Time 27.4 Seconds (22.3-36.8)
[2023-07-17 17:30] LABS: Troponin I 0.159 ng/mL (0.000-0.034)
--- NOTE | 2023-07-17 17:53 | ED.NEUROSD ---
HPI - Neuro Symptoms/Deficit General Chief Complaint: Suspected CVA Stated Complaint: think I had a stroke again Time Seen by Provider: 07/17/23 17:29 History of Present Illness HPI Narrative: 63-year-old female with a history of hypertension, hyperlipidemia, type 2 diabetes into prior CVAs presents to emergency department with her friend at bedside for left-sided facial, arm and leg numbness that started this morning at 2:00 a.m. patient reports decreased sensation in the left side of her face left leg with associated weakness in her left leg. She notes that she is not taking any for medications since May including her hypertension, cholesterol and diabetes medications. States she never had a refill and did not follow-up with her PCP to get another 1. States she had a stroke approximately 5 years ago and 1 in September of 2022 that left residual rights leg numbness and weakness. She denies head injury or trauma, chest pain or shortness of breath, dysarthria, aphasia or dysphasia. She is reporting a cough and runny nose. Related Data Home Medications Medication Instructions Recorded Confirmed aspirin 81 mg chewable tablet 1 tablet PO DAILY 10/28/22 10/28/22 atorvastatin 40 mg tablet 40 mg PO DAILY 10/28/22 10/28/22 clotrimazole 1 % topical cream 1 applic topical BID 10/28/22 10/28/22 insulin glargine 100 unit/mL (3 10 unit subcut HS 10/28/22 10/28/22 mL) subcutaneous pen (Lantus Solostar U-100 Insulin) Allergies Allergy/AdvReac Type Severity Reaction Status Date / Time No Known Allergies Allergy Verified 11/12/22 10:33 Review of Systems Review of Systems: CONSTITUTIONAL: Denies fever, chills, or sweats. EYES: Denies visual changes, redness, or discharge. ENT: Denies rhinorrhea, congestion, sore throat, or otalgia. CARDIOVASCULAR: Denies chest pain, palpitations, or edema. RESPIRATORY: Denies cough or dyspnea. GASTROINTESTINAL: Denies abdominal pain, nausea, vomiting, or diarrhea. GENITOURINARY: Denies dysuria or hematuria. SKIN: Denies rash or itching. MUSCULOSKELETAL: Denies back pain, joint pain, or myalgia. NEUROLOGIC: See HPI PSYCHIATRIC: Denies anxiety or depression. [facility] Social History Social History Smoking status: Never smoker Alcohol intake: never Substance use: never Lack of Transportation: No Lack of Food: Never True Current Housing: I Have Housing Concerned About Future Housing: No Difficulty Paying Gas/Electric Bills: No Difficulty Paying for Meds: No Currently Unemployed: No Education: High School Diploma/GED Difficulty w/ Childcare or Family Care: No Spiritual care concerns: No Exam Narrative: GENERAL: Well-appearing, well-nourished, and in no acute distress. HEAD: Normocephalic, atraumatic. EYES: PERRLA and EOMI. ENT: Nares clear, no rhinorrhea or epistaxis. Mucous membranes moist. NECK: Supple. CHEST: Clear to auscultation. No respiratory distress. HEART: Regular rate and rhythm. No murmur heard. Normal peripheral pulses. ABDOMEN: Soft, nontender, nondistended, normal active bowel sounds. EXTREMITIES: Normal range of motion. No edema. SKIN: Warm, dry, no rash. NEURO: Alert and oriented x3. Decreased sensation to the V2 and V3 distribution on the left side of the face when compared to the right. Decreased sensation throughout the left arm and left leg. Strength 4/5 with hip flexion of the left leg, otherwise strength 5/5 bilaterally throughout upper and lower extremities. Left drooping of the face with smiling. Tremulousness and overshooting with the [id number] test with the left hand. Positive left hand pronator drift. NIHSS: 5 Course Vital Signs Vital signs: Vital Signs Temperature 97.9 F 07/17/23 15:58 Pulse Rate 97 07/17/23 15:58 Respiratory Rate 18 07/17/23 15:58 Blood Pressure 140/67 07/17/23 15:58 Pulse Oximetry 99 07/17/23 15:58 Oxygen Delivery Room Air
[2023-07-17] MEDS: ASPIRIN 81 MG CHEWABLE TABLET 324 MG PO (18:15)
[2023-07-17 18:39] LABS: Influenza A QL RT-PCR Negative (Negative); Influenza B QL RT-PCR Negative (Negative); RSV RNA, RT-PCR Negative (Negative); SARS-CoV-2 RNA PCR Negative (Negative)
--- NOTE | 2023-07-17 19:23 | ECG_ITS ---
Measurements Intervals [employer] Rate: 71 P: 32 MD: 156 QRS: -39 QRSD: 85 T: 75 QT: 386 QTc: 420 Interpretive Statements SINUS RHYTHM MARKED LEFT AXIS DEVIATION [QRS AXIS < -30] LOW QRS VOLTAGE IN PRECORDIAL LEADS [QRS DEFLECTION < 1.0 mV IN CHEST LEADS] ANTEROSEPTAL MYOCARDIAL INFARCTION , OF INDETERMINATE AGE [40+ ms Q WAVE IN V1-V4] COMPARED TO ECG 07/17/2023 16:37:37 NO SIGNIFICANT CHANGES Electronically Signed On 07-18-2023 13:24:44 CDT by Mer Wells M.D.
--- NOTE | 2023-07-17 20:07 | PM.IMHP ---
H&P: HPI History of Present Illness Date/Time: 07/17/23 20:07 Chief Complaint: AMS Narrative: THIS IS A 63-YEAR-OLD FEMALE WITH PAST MEDICAL HISTORY SIGNIFICANT FOR INSULIN-DEPENDENT DIABETES MELLITUS, , STROKE,DYSLIPIDEMIA. PATIENT PRESENTS TO THE EMERGENCY ROOM DUE TO NUMBNESS PRESENT ON THE LEFT SIDE OF HER FACE AND ARM SINCE THE DAY BEFORE NO WORSENING THROUGHOUT THE DAY, NO SPEECH DISTURBANCE, NO DROOLING, NO FOCAL WEAKNESS. PATIENT STATES THAT SHE HAS BEEN HER USUAL STATE OF HEALTH UP UNTIL THIS POINT DENIES ANY FEVERS, RIGORS, CHILLS, NAUSEA, VOMITING, DIARRHEA, PAIN OR BURNING WITH URINATION. PRELIMINARY WORKUP WAS SIGNIFICANT FOR URINALYSIS WITH NUMEROUS WBCS PRESENT EXAMINATION: CT brain wo con DATE: 07/17/2023 16:53 INDICATION: Left-sided weakness and numbness TECHNIQUE: Computed tomography (CT) of the head was performed without intravenous contrast. Sagittal and coronal reconstructions were performed. The mA was adjusted according to patient size. Iterative reconstruction technique was employed. The dose-length product was 605.33 mGy-cm. COMPARISON: None FINDINGS: Small region of encephalomalacia in the right occipital lobe consistent with chronic infarct. Additional small old lacunar infarcts at the body of the left lentiform nucleus and at the right caudate nucleus and adjacent right frontal lobe grant radiata. No acute intracranial hemorrhage, acute infarction or abnormal extra axial fluid collection. There is mild scattered white matter hypoattenuation consistent with chronic small vessel ischemic disease. Symmetric prominence of the sulci consistent with mild age-appropriate diffuse cerebral volume loss. Ventricles are normal and symmetric. No mass/mass effect. Changes of bilateral intraocular lens replacement. The orbits and mastoid air cells are normal. Mucosal thickening the paranasal sinuses with opacification of multiple left ethmoid air cells, the left frontoethmoidal recess and partial opacification of the left frontal sinus. IMPRESSION: 1. A few old infarcts at the right occipital lobe and bilateral basal ganglia. No acute intracranial process. 2. Age-related changes including mild diffuse volume loss and mild scattered white matter hypoattenuation consistent with chronic small vessel ischemic disease. 3. Sinus disease. EXAMINATION:? XR chest 1V Exam Date/Time:? 07/17/2023 16:57 CDT HISTORY: left sided weakness/numbness ? Comparison:? None. RESULT: Lines, tubes, and devices:? None. Lungs and pleura:? Clear. Cardiomediastinal silhouette:? Mild arch calcification. 2.2 cm ovoid opacity projecting over the right hilum/right pulmonary artery. Other:? No acute osseous or upper abdominal finding. ? IMPRESSION: No focal consolidation, pleural effusion, or pneumothorax. 2.2 cm right hilar opacity probably representing the right pulmonary artery viewed en face, although hilar lymphadenopathy could appear similarly. Review of Systems Review of Systems: LEFT-SIDED OF THE FACE NUMBNESS AND ARM Constitutional: Constitutional: Denies chills, Denies fever(s), Denies malaise and Denies weakness Eyes: Eyes: Denies change in vision ENT: Denies dysphagia, Denies vertigo, Denies dizziness, Denies nasal congestion, Denies nasal discharge, Denies odynophagia and Denies disequilibrium Cardiovascular: Cardiovascular: Denies chest pain, Denies radiating jaw, neck or arm pain and Denies palpitations Respiratory: Respiratory: Denies chest congestion, Denies cough and Denies excessive phlegm production Gastrointestinal: Gastrointestinal: Denies abdominal pain, Denies dyspepsia, Denies heartburn, Denies diarrhea, Denies nausea and Denies vomiting Genitourinary: Genitourinary: Denies dysuria Musculoskeletal: Musculoskeletal: Denies myalgias and Reports other ( PATIENT USES A QUAD CANE) Integumentary/Breasts: Skin/Breast: Denies rash Neurologic: Denies focal weakness, Denies Sensory deficit (Neuro)
[2023-07-17 20:11] LABS: Troponin I 0.146 ng/mL (0.000-0.034)
--- NOTE | 2023-07-17 22:57 | ADMGEN ---
This patient, Maria Long, was admitted to IMU Room 204-01 at 2142. Patient/family oriented to hospital policies and general routines including ID bracelet, bed and alarms, visiting hours, pain management, procedures, bathroom and other care routines, personal items, smoking policy, room service/diet, and visiting hours. Information on how to activate the Rapid Response Team has been discussed. Patient/Family are encouraged to report perceived risks to care and to ask questions if they do not understand what they are told or what they should do.
[2023-07-17 23:43] LABS: Glucose Point of Care 264 mg/dl (65-105)
[2023-07-17 23:48] LABS: Troponin I 0.164 ng/mL (0.000-0.034)
[2023-07-18] VITALS (13 sets, daily range): BP systolic 112–127; BP diastolic 40–60; PULSE 58–89; RESP 18–20; TEMP 36.4–36.7; O2SAT 94–100
--- NOTE | 2023-07-18 | ECHO_ITS ---
Patient Info Name: Maria Long Age: 63 years : 1960 Gender: Female Ht: 69 in Wt: 185 lbs BSA: 2.04 m2 HR: 69 bpm BP: 125 / 57 mmHg Heart Rhythm: Sinus Rhythm Technical Quality: Good Exam Date: 07/18/2023 12:18 PM Exam Location: Echo Lab Patient Status: Outpatient Admit Date: 07/17/2023 Staff Ordering Physician: Ashish Kirkpatrick MD Environmental Marketer: Paxton Kramer RDCS Attending Provider: Chata Olivo MD Referring Physician: Casimiro CHAUDHARI; Exam Type: CA echo doppler w bubble study Study Info Indications - strtoke, abn ekg Complete two-dimensional, color flow and Doppler transthoracic echocardiogram is performed with agitated saline. Summary 1. Left ventricular chamber dimension is moderately enlarged. 2. Left ventricular systolic function is normal, estimated at 55-60%. 3. The left ventricular diastolic function is grade I diastolic dysfunction. 4. Right ventricular systolic function is normal. 5. No significant valvular disease. 6. Intact interatrial septum visualized by color flow and agitated saline imaging. Negative bubble study. Left Ventricle Left ventricular chamber dimension is moderately enlarged. Left ventricular systolic function is normal, estimated at 55-60%. There is no increased left ventricular wall thickness. The left ventricular diastolic function is grade I diastolic dysfunction. Right Ventricle Right ventricular chamber dimension is normal. Right ventricular systolic function is normal. Left Atria Left atrial chamber dimension is normal. Right Atria Right atrial chamber dimension is normal. Atrial Septum Intact interatrial septum visualized by color flow and agitated saline imaging. Negative bubble study. Aortic Valve The aortic valve is probable trileaflet. There is no aortic valve stenosis. There is no aortic valve regurgitation. Pulmonic Valve The pulmonic valve is not well visualized. Mitral Valve There is trace mitral valve regurgitation. Tricuspid Valve There is trace tricuspid valve regurgitation. Pericardium/Pleural There is no pericardial effusion. Inferior Vena Cava Normal inferior vena cava with >50% collapse upon inspiration consistent with normal right atrial pressure, 3 mmHg. Aorta The aortic root size at the sinus of Valsalva is normal. Left Ventricular Outflow Tract Name Value Normal LVOT 2D LVOT Diameter 2.2 cm LVOT Doppler LVOT Peak Gradient 3 mmHg LVOT Mean Gradient 2 mmHg LVOT VTI 21 cm LVOT VTI/AV VTI Ratio 0.8 LVOT Stroke Volume 84 ml LVOT CO 4.9 l/min LVOT CI 2.4 l/min/m2 Pulmonic Valve Name Value Normal RVOT Doppler RVOT Peak Gradient 1 mmHg PV Doppler
[2023-07-18 08:29] LABS: Glucose Point of Care 256 mg/dl (65-105)
[2023-07-18 08:56] LABS: Hematocrit 36.8 % (37.0-47.0); Hemoglobin 12.1 g/dL (12.0-15.0); Mean Corpuscular HGB Conc 32.9 g/dl (32-36); Mean Corpuscular Hemoglobin 29.7 pg (26-34); Mean Corpuscular Volume 90.2 fl (80-100); Mean Platelet Volume 9.7 fl (7.4-10.4); Platelet Count Result 287 k/mm3 (150-375); Red Blood Count 4.08 M/mm3 (4.2-5.4); Red Cell Distribution Width 12.2 % (11.5-14.5); White Blood Count 7.8 K/mm3 (4.5-10.0)
[2023-07-18 09:01] LABS: Appearance Urine Turbid (Clear); Bacteria Urine 4+ /hpf; Bilirubin Urine Negative (Negative); Blood Urine 2+ (Negative); Color Urine Yellow (Yellow); Glucose Urine UA Negative (Negative); Ketones Urine Negative (Negative); Leukocyte Esterase Ur 3+ LEU/UL (Negative); Need Manual Microscopic Reviewed; Nitrate Urine Negative (Negative); Non Pathogenic Casts 0-2; Protein Urine 3+ mg/dL (Negative); RBC Urine 21-50 /hpf (0-2); Squamous Epithelial Cell Urine Moderate /hpf (Few); Urobilinogen Urine 0.2 mg/dL (<2.0); WBC Urine >100 /hpf (0-3); pH Urine 6.5 (5.0-9.0)
[2023-07-18 09:02] LABS: Specific Grav Ur 1.044 (1.001-1.035)
[2023-07-18 09:03] LABS: Add Urine Microscopic? YES
[2023-07-18 09:34] LABS: Albumin Level 3.1 g/dL (3.5-5.1); Anion Gap 3 mmol/L (4-12); Blood Urea Nitrogen 16 mg/dL (7-17); Calcium 9.4 mg/dL (8.4-10.2); Carbon Dioxide 27 mmol/L (22-30); Chloride 106 mmol/L (98-107); Estimated CRCL calculation 48 ml/min; Estimated Glomerular Filt Rate 45; Glucose 268 mg/dL (65-110); Phosphorus 3.7 mg/dL (2.5-4.5); Potassium 4.1 mmol/L (3.4-5.0); Sodium 136 mmol/L (137-145)
[2023-07-18] MEDS: ATORVASTATIN 40 MG TABLET PO (09:36)
[2023-07-18] MEDS: ASPIRIN 81 MG CHEWABLE TABLET PO (09:36)
--- NOTE | 2023-07-18 10:05 | PM.IMPN ---
Progress Note: A&P Assessment and Plan (1) Neurological deficit present: Code(s): R29.818 - Other symptoms and signs involving the nervous system Status: Acute Assessment and Plan: Chronically most likely has acute right cortical stroke CT with old infarcts and CTA with no flow-limiting lesions MRI pending 07/17 Continue telemetry Consider outpatient tomographic tech Continue aspirin and add clopidogrel for 3 weeks, pending MRI results PT and OT (2) Urinary tract infection: Code(s): N39.0 - Urinary tract infection, site not specified Status: Acute Assessment and Plan: Ceftriaxone pending culture results (3) IDDM (insulin dependent diabetes mellitus): Status: Acute Assessment and Plan: Continue glycemic management (4) Elevated troponin: Code(s): R79.89 - Other specified abnormal findings of blood chemistry Status: Acute Assessment and Plan: 0.15, 0.14, 0.16 In presence of chronic kidney disease No acute coronary syndrome (5) Abnormal EKG: Code(s): R94.31 - Abnormal electrocardiogram [ECG] [EKG] Status: Acute Assessment and Plan: Suggests old anterior infarction Echocardiogram (6) History of CVA (cerebrovascular accident): Code(s): Z86.73 - Personal history of transient ischemic attack (TIA), and cerebral infarction without residual deficits Status: Acute Assessment and Plan: As above (7) Stage 3a chronic kidney disease (CKD): Code(s): N18.31 - Chronic kidney disease, stage 3a Status: Acute Assessment and Plan: Creatinine below 1 in October 2022 Renal ultrasound Subjective Date/time seen: 07/18/23 10:05 Interval history: Continues paresthesias left cheek left arm. Mild weakness left arm. No difficulty with vision speech or swallowing. No difficulty with gait. Denied chest pain shortness a breath palpitations. Denied GI issues. Chronic mixed urinary incontinence. Wears depends at home. Denied abnormal bleeding. Blood sugars at home run 180s. No hypoglycemia. Review of Systems Review of Systems: All systems reviewed & are unremarkable except as noted in HPI and below Exam Narrative: HEENT: EOMI, PERRL, sclerae nonicteric, pharyngeal mucosa pink and intact NECK: No JVD, adenopathy, or thyromegaly CHEST: Clear to auscultation. Normal effort. HEART: NL S1/S2, regular, no murmur ABDOMEN: BS+, soft, nontender, no mass, no bruits EXTREMITIES: No cyanosis, edema, or clubbing NEUROLOGIC: CN with mild left facial weakness vs right, DTRs symmetric and 2+ except absent ankle jerks, Babinski's negative, MILD LUE DRIFT AND MINIMAL FIX, LEFT TECHNICAL APPLICATIONS SPECIALIST 4/5, LEFT BICEPS AND TRICEPS 4/5, strength otherwise intact. MUSCULOSKELETAL: Tone and strength symmetric. PSYCH: Alert. Oriented to person, place, and time. Objective Data Vital Signs Vital Signs: Vital Signs - 24 hr 07/17/23 15:58 07/17/23 16:30 07/17/23 17:37 Temperature 97.9 F Pulse Rate 97 73 Respiratory Rate 18 18 Blood Pressure 140/67 136/71 Pulse Oximetry 99 97 96 Oxygen Delivery Room Air 07/17/23 16:30 07/17/23 19:22 07/17/23 20:35 Temperature Pulse Rate 70 77 Respiratory Rate 20 Blood Pressure 135/75 Pulse Oximetry 98 97 Oxygen Delivery 07/17/23 20:36 07/17/23 21:40 07/17/23 21:42 Temperature 97.2 F L Pulse Rate 66 71 69 Respiratory Rate 18 18 18 Blood Pressure 137/67 122/55 L 146/67 H Pulse Oximetry 97 98 97 Oxygen Delivery 07/17/23 23:52 07/17/23 22:00 07/18/23 00:00 Temperature 98.0 F Pulse Rate 69 Respiratory Rate 18 Blood Pressure 112/54 L Pulse Oximetry 92 Oxygen Delivery Room Air Room Air 07/17/23 21:56 07/18/23 00:00 07/18/23 02:00 Temperature Pulse Rate 73 69 70 Respiratory Rate Blood Pressure Pulse Oximetry Oxygen Delivery 07/18/23 04:00 07/18/23 04:00 07/18/23 05:49 Temperature 97.6 F Pulse Rate 58 L 66 Resp
[2023-07-18 12:16] LABS: Glucose Point of Care 267 mg/dl (65-105)
[2023-07-18] MEDS: CLOPIDOGREL BISULFATE 75 MG TABLET PO (13:17)
--- NOTE | 2023-07-18 15:01 | WPDNEURCNPN ---
Assessment and Plan Assessment and plan (1) Stage 3a chronic kidney disease (CKD): Code(s): N18.31 - Chronic kidney disease, stage 3a Status: Acute (2) Neurological deficit present: Code(s): R29.818 - Other symptoms and signs involving the nervous system Status: Acute (3) IDDM (insulin dependent diabetes mellitus): Status: Acute Plan 1. TIA 2. Early neuropathy 3. Subcortical infarcts 4. Plan as ordered Consult date: 07/18/23 HPI: Maria Long is a 63 year old female Admitted to the hospital through the emergency room for the possibility of stroke in addition to ongoing history of 1. Hypertension 2. Hyperlipidemia 3. Diabetes mellitus and with the information the left-sided facial arm and leg weakness is started to a.m. with decreased sensation on the left side of the face and left lower extremity patient has not been taking any medications since May which included medicine for the hypertension for hypercholesterolemia and for diabetes mellitus did not follow with a primary care physician to get another physician she has had stroke about 5 years ago and 2nd 1 in September of 2022 with residual weakness of the right lower extremity there is no history of recent trauma. Medications included aspirin 81mg daily atorvastatin 40mg daily insulin 10units subQ HS with no history of being allergic to any medications history of being never smoker never alcohol intake or and initial exam with decreased sensation on the left side of the face and the left upper extremity and left lower extremity along with the decreased strength and drooping of the face on the left side initial vital signs normal, CBC normal BMP with blood sugar 353 and sodium 134 BUN 15 creatinine 1.2, initial CT head with old infarct in the right occipital lobe bilateral basal ganglia along with the age-related changes with diffuse volume loss, head neck CTA negative next day of the chest with 2.2cm right hilar opacity. Review of Systems Review of Systems: All systems reviewed & are unremarkable except as noted in HPI and below [facility] Family History Family History Sibling Breast cancer Father Acute myocardial infarction Congestive heart failure Sibling Acute myocardial infarction Social History Social History Smoking packs per day: 0.10 Smoking cigarettes per day: 2.0 Years smoked: 40 Smoking pack-years: 4.00 Smoking status: Current every day smoker Tobacco type: cigarettes Additional smoking assessment comments: PT STARTED AGE 17, STOPPED 5YRS AGO, BUT HAS RESTARTED Alcohol intake: never Substance use: never Do You Feel Safe in your Home?: Yes Lack of Transportation: YES Lack of Food: Never True Current Housing: I Have Housing Concerned About Future Housing: No Difficulty Paying Gas/Electric Bills: No Difficulty Paying for Meds: No Currently Unemployed: No Education: High School Diploma/GED Difficulty w/ Childcare or Family Care: No Spiritual care concerns: No Meds Home Medications and Allergies Home Medications Medication Instructions Recorded Confirmed Type aspirin 81 mg chewable tablet 1 tablet PO DAILY 10/28/22 07/17/23 History atorvastatin 40 mg tablet 40 mg PO DAILY 10/28/22 07/17/23 History clotrimazole 1 % topical cream 1 applic topical BID PRN Rash 10/28/22 07/17/23 History insulin glargine 100 unit/mL (3 15 unit subcut HS 10/28/22 07/17/23 History mL) subcutaneous pen (Lantus Solostar U-100 Insulin) Allergies Allergy/AdvReac Type Severity Reaction Status Date / Time No Known Allergies Allergy Verified 07/17/23 22:18 Vital Signs Vital Signs - 24 hr 07/17/23 15:58 07/17/23 16:30 07/17/23 17:37 Temperature 36.6 C Pulse Rate 97 73 Respiratory Rate 18 18 Blood Pressure 140/67 136/71 Pulse Oximetry 99 97 96 Oxygen Delivery Room Air 07/17/23
[2023-07-18 16:09] LABS: Glucose Point of Care 235 mg/dl (65-105)
--- NOTE | 2023-07-18 18:47 | PC.NURSE ---
On 07/18/23, the student nurse, eLti Barahona, provided care and completed [facility] documentation on this patient. I have reviewed the student's documentation and agree with the findings.
--- NOTE | 2023-07-18 19:01 | PC.NURSE ---
Patient transferred from IMU to room 250 @ 1855.
--- NOTE | 2023-07-18 19:35 | PC.NURSE ---
This patient, Maria Long, was transferred to [facility] on 07/18/23 at 1830. Personal belongings sent with patient. Report given to LUTHER Titus. Appropriate documentation sent with patient.
[2023-07-18 20:29] LABS: Glucose Point of Care 453 mg/dl (65-105)
--- NOTE | 2023-07-18 20:38 | PCDIET ---
Report received at shift change that pt transfered from IMU and did not receive insulin today. Breakfast and lunch, BS high, not dosed due to NPO for Brain MRI. Dinner, BS high, not dosed because nurse had already put away insulin. Pt BS 453 at 1999. Provider notified.
[2023-07-18] MEDS: INSULIN ASPART (*BKC) 100 UNITS/ML 10 UNITS SUB-Q (21:01)
[2023-07-18] MEDS: INSULIN GLARGINE (*BKC) 100 UNITS/ML 15 UNITS SUB-Q (21:02)
[2023-07-19] VITALS: BP 125/50; PULSE 80; PULSE 81; RESP 18; TEMP 36.6; O2SAT 97
[2023-07-19 04:00] VITALS: PULSE 70
[2023-07-19 05:17] LABS: Anion Gap 3 mmol/L (4-12); Blood Urea Nitrogen 20 mg/dL (7-17); Calcium 8.9 mg/dL (8.4-10.2); Carbon Dioxide 27 mmol/L (22-30); Chloride 102 mmol/L (98-107); Cholesterol 163 mg/dL (0-200); Estimated CRCL calculation 35 ml/min; Estimated Glomerular Filt Rate 30; Glucose 218 mg/dL (65-110); HDL Direct 23 mg/dL; Phosphorus 3.3 mg/dL (2.5-4.5); Potassium 3.9 mmol/L (3.4-5.0); Sodium 132 mmol/L (137-145); Triglycerides 254 mg/dL (<150)
[2023-07-19 05:27] LABS: LDL Cholesterol Direct 85 mg/dL
[2023-07-19 06:07] VITALS: BP 103/46; PULSE 73; RESP 18; TEMP 36.8; O2SAT 96
[2023-07-19 08:00] VITALS: PULSE 67
[2023-07-19] MEDS: ATORVASTATIN 40 MG TABLET PO (08:15)
[2023-07-19] MEDS: CLOPIDOGREL BISULFATE 75 MG TABLET PO (08:15)
[2023-07-19] MEDS: ASPIRIN 81 MG CHEWABLE TABLET PO (08:15)
[2023-07-19 08:44] LABS: Glucose Point of Care 189 mg/dl (65-105)
[2023-07-19] MEDS: levoFLOXacin 250 MG TABLET PO (13:55)
[2023-07-19] MEDS: INSULIN ASPART (*BKC) 100 UNITS/ML SUB-Q (16:58)
--- NOTE | 2023-07-19 17:00 | PM.IMPN ---
Progress Note: A&P Assessment and Plan (1) Stroke: Code(s): I63.9 - Cerebral infarction, unspecified Status: Acute Assessment and Plan: Continue statin, ASA, clopidogrel PT, OT (2) Urinary tract infection: Code(s): N39.0 - Urinary tract infection, site not specified Status: Acute Assessment and Plan: Culture pending 07/18 stopped ceftriaxone and started po Levaquin (3) Stage 3a chronic kidney disease (CKD): Code(s): N18.31 - Chronic kidney disease, stage 3a Status: Acute Assessment and Plan: Creatinine below 1 in October 202207/17 creatinine 1.2, 07/18 1.7 (suspect due to IV contrast dye for CTA 07/16) Renal ultrasound: 7.8 cm right upper pole cystic mass, with echogenic somewhat nodular appearing septae.. Echogenic dependent material in the urinary bladder may represent crystalline proteinaceous or hemorrhagic debris. CT abdomen (w/o contrast initially due to creatinine 1.7) UA (4) Abnormal EKG: Code(s): R94.31 - Abnormal electrocardiogram [ECG] [EKG] Status: Acute Assessment and Plan: Suggests old anterior infarction Echocardiogram with good LV function and no wall motion abnormalities noted (5) IDDM (insulin dependent diabetes mellitus): Status: Acute Assessment and Plan: FBS 07/18 218, increased Lantus from 15 to 18 U (6) Elevated troponin: Code(s): R79.89 - Other specified abnormal findings of blood chemistry Status: Acute Assessment and Plan: 0.15, 0.14, 0.16 In presence of chronic kidney disease No acute coronary syndrome (7) History of CVA (cerebrovascular accident): Code(s): Z86.73 - Personal history of transient ischemic attack (TIA), and cerebral infarction without residual deficits Status: Acute Assessment and Plan: As above Subjective Date/time seen: 07/19/23 17:00 Interval history: Tolerating diet. Stable left arm numbness and mild weakness. Review of Systems Review of Systems: All systems reviewed & are unremarkable except as noted in HPI and below Exam Narrative: HEENT: EOMI, PERRL, sclerae nonicteric, pharyngeal mucosa pink and intact NECK: No JVD, adenopathy, or thyromegaly CHEST: Clear to auscultation. Normal effort. HEART: NL S1/S2, regular, no murmur ABDOMEN: BS+, soft, nontender, no mass, no bruits EXTREMITIES: No cyanosis, edema, or clubbing NEUROLOGIC: CN with mild left facial weakness vs right, LEFT DEPOT AGENT 4/5 MUSCULOSKELETAL: No gross deformities PSYCH: Alert. Oriented to person, place, and time. Objective Data Vital Signs Vital Signs: Vital Signs - 24 hr 07/18/23 18:51 07/18/23 19:43 07/18/23 20:00 Temperature 97.8 F Pulse Rate 80 89 Respiratory Rate 18 Blood Pressure 127/48 L Pulse Oximetry 99 Oxygen Delivery Room Air 07/19/23 00:00 07/19/23 00:00 07/18/23 21:40 Temperature 97.8 F Pulse Rate 81 80 Respiratory Rate 18 Blood Pressure 125/50 L Pulse Oximetry 97 97 Oxygen Delivery Room Air 07/19/23 04:00 07/19/23 06:07 07/19/23 08:00 Temperature 98.3 F Pulse Rate 70 73 Respiratory Rate 18 Blood Pressure 103/46 L Pulse Oximetry 96 Oxygen Delivery Room Air 07/19/23 09:35 07/19/23 08:00 07/19/23 12:28 Temperature Pulse Rate 67 Respiratory Rate Blood Pressure Pulse Oximetry Oxygen Delivery Room Air Room Air Intake/Output Intake/Output: Intake & Output 07/16/23 07/17/23 07/18/23 07/19/23 23:59 23:59 23:59 23:59 Intake Total 290 530 Output Total 301 Balance -11 530 Meds/Results Medications: Active Medications Generic Name Dose Route Start Last Admin Trade Name Freq PRN Reason Stop Dose Admin Aspirin 81 mg 07/18/23 09:00 07/19/23 08:15 Aspirin 81 Mg Chewable Tablet PO 81 mg DAILY PRERNA Administration Atorvastatin Calcium 40 mg 07/18/23 09:00 07/19/23 08:15 Atorvastatin 40 Mg Tablet PO 40 mg DAILY PRERNA Administration C
[2023-07-19 17:06] LABS: Glucose Point of Care 250 mg/dl (65-105)
[2023-07-19 17:12] LABS: Glucose Point of Care 316 mg/dl (65-105)
[2023-07-19] MEDS: INSULIN GLARGINE (*BKC) 100 UNITS/ML 18 UNITS SUB-Q (20:56)
[2023-07-19 22:00] VITALS: BP 131/59; PULSE 64; RESP 16; TEMP 36.1; O2SAT 98
[2023-07-19 22:42] LABS: Glucose Point of Care 212 mg/dl (65-105)
[2023-07-20] VITALS (7 sets, daily range): BP systolic 111–137; BP diastolic 58–61; PULSE 65–80; RESP 16–18; TEMP 36.1–37; O2SAT 95–100
[2023-07-20 06:43] LABS: Albumin Level 3.5 g/dL (3.5-5.1); Anion Gap 6 mmol/L (4-12); Blood Urea Nitrogen 21 mg/dL (7-17); Calcium 9.2 mg/dL (8.4-10.2); Carbon Dioxide 28 mmol/L (22-30); Chloride 101 mmol/L (98-107); Estimated CRCL calculation 33 ml/min; Estimated Glomerular Filt Rate 28; Glucose 170 mg/dL (65-110); Phosphorus 4.1 mg/dL (2.5-4.5); Potassium 3.6 mmol/L (3.4-5.0); Sodium 135 mmol/L (137-145)
[2023-07-20 07:24] LABS: Appearance Urine Turbid (Clear); Bacteria Urine None Seen /hpf; Bilirubin Urine Negative (Negative); Blood Urine 2+ (Negative); Color Urine Yellow (Yellow); Glucose Urine UA Negative (Negative); Ketones Urine Negative (Negative); Leukocyte Esterase Ur 3+ LEU/UL (Negative); Nitrate Urine Negative (Negative); Protein Urine 1+ mg/dL (Negative); RBC Urine 0-2 /hpf (0-2); Specific Grav Ur 1.006 (1.001-1.035); Squamous Epithelial Cell Urine None Seen /hpf (Few); Urobilinogen Urine 0.2 mg/dL (<2.0); WBC Urine >100 /hpf (0-3); pH Urine 5.5 (5.0-9.0)
[2023-07-20 07:32] LABS: Glucose Point of Care 178 mg/dl (65-105)
[2023-07-20 07:48] LABS: Add Urine Microscopic? YES
[2023-07-20] MEDS: CLOPIDOGREL BISULFATE 75 MG TABLET PO (08:15)
[2023-07-20] MEDS: levoFLOXacin 250 MG TABLET PO (08:15)
[2023-07-20] MEDS: ATORVASTATIN 40 MG TABLET PO (08:16)
[2023-07-20] MEDS: ASPIRIN 81 MG CHEWABLE TABLET PO (08:16)
[2023-07-20 11:39] LABS: Glucose Point of Care 257 mg/dl (65-105)
[2023-07-20] MEDS: INSULIN ASPART (*BKC) 100 UNITS/ML SUB-Q ×2 (12:28→16:51)
[2023-07-20 16:49] LABS: Glucose Point of Care 293 mg/dl (65-105)
--- NOTE | 2023-07-20 18:14 | WPDNEUROPN ---
Progress Note: A&P Assessment and Plan (1) Right thalamic infarction: Code(s): I63.81 - Other cerebral infarction due to occlusion or stenosis of small artery Status: Acute (2) IDDM (insulin dependent diabetes mellitus): Status: Acute (3) Stage 3a chronic kidney disease (CKD): Code(s): N18.31 - Chronic kidney disease, stage 3a Status: Acute (4) Smoker: Code(s): F17.200 - Nicotine dependence, unspecified, uncomplicated Status: Acute Plan Patient did well antiplatelets and statins. Her symptoms have improved nevertheless this he does have a right thalamic infarct that could present with sensory symptoms as he did. He seizure 2nd stroke within less than a year. His risk factor management including cessation of smoking and control of diabetes and blood pressure and lipid profile is certainly highly recommended. Patient was given some advice regarding this. She voices understanding and states he will work on these. Subjective Date/time seen: 07/20/23 18:14 Interval history: The patient presented with the numbness on the left side of the body. Subsequently symptoms have improved. They history of previous stroke in September of 2022 which should lead to right lower limb weakness however patient also improved from that. The history of smoking. Initial CT scan and CT angiogram of the head and neck did not show any large vessel occlusion. MRI of the brain shows a right thalamic infarct and old right occipital infarct. The films were reviewed. Review of Systems Review of Systems: All systems reviewed & are unremarkable except as noted in HPI and below Exam Const: General: comfortable and no acute distress Eyes: General: appearance normal, both eyes and all related structures Neck: Neck: supple Carotids: bruit (No carotid bruit) Resp: Effort & Inspection: normal respiratory effort Cardio: Rhythm: regular rhythm Skin: General skin exam: normal color Neuro: General: deep tendon reflexes 2+ bilaterally (Deep tendon reflex were 1 to 2/4) Speech: normal speech Motor exam (neuro): 5/5 motor strength present throughout and Normal motor muscle tone present throughout Sensory Exam: normal sensation Extrem: General: normal to inspection Objective Data Vital Signs Vital Signs: Vital Signs - 24 hr 07/19/23 20:00 07/19/23 22:00 07/20/23 04:46 Temperature 36.1 C L 36.1 C L Pulse Rate 64 75 Respiratory Rate 16 16 Blood Pressure 131/59 L 137/58 L Pulse Oximetry 98 100 Oxygen Delivery Room Air 07/20/23 08:00 07/20/23 14:00 07/20/23 08:00 Temperature 36.1 C L Pulse Rate 80 67 Respiratory Rate 16 Blood Pressure 111/60 Pulse Oximetry 100 Oxygen Delivery Room Air 07/20/23 12:00 07/20/23 16:00 Temperature Pulse Rate 79 65 Respiratory Rate Blood Pressure Pulse Oximetry Oxygen Delivery Intake/Output Intake/Output: Intake & Output 07/17/23 07/18/23 07/19/23 07/20/23 23:59 23:59 23:59 23:59 Intake Total 290 1302 1070 Output Total 301 175 Balance -11 1302 895 Meds/Results Medications: Active Medications Generic Name Dose Route Start Last Admin Trade Name Freq PRN Reason Stop Dose Admin Aspirin 81 mg 07/18/23 09:00 07/20/23 08:16 Aspirin 81 Mg Chewable Tablet PO 81 mg DAILY PRERNA Administration Atorvastatin Calcium 40 mg 07/18/23 09:00 07/20/23 08:16 Atorvastatin 40 Mg Tablet PO 40 mg DAILY PRERNA Administration Clopidogrel Bisulfate 75 mg 07/18/23 10:15 07/20/23 08:15 Clopidogrel Bisulfate 75 Mg Tablet PO 75 mg QAM PRERNA Administration Dextrose 12.5 gm 07/18/23 08:47 Dextrose 50% 25 Gm/50 Ml Syringe IV PUSH PRN PRN Hypoglycemia Protocol Glucagon 1 mg 07/18/23 08:47 Glucagon For Inj 1 Mg Vial IM PRN PRN Hypoglycemia Protocol Glucose 15 gm 07/18/23 08:47 Glucose Oral Gel 15 Gm Of Glucse In 37.5 Gm Tube PO PRN PRN Hypoglycemia Pr
--- NOTE | 2023-07-20 20:34 | PM.IMPN ---
Progress Note: A&P Assessment and Plan (1) Smoker: Code(s): F17.200 - Nicotine dependence, unspecified, uncomplicated Status: Acute (2) Right thalamic infarction: Code(s): I63.81 - Other cerebral infarction due to occlusion or stenosis of small artery Status: Acute (3) Stage 3a chronic kidney disease (CKD): Code(s): N18.31 - Chronic kidney disease, stage 3a Status: Acute (4) Urinary tract infection: Code(s): N39.0 - Urinary tract infection, site not specified Status: Acute (5) Stroke: Code(s): I63.9 - Cerebral infarction, unspecified Status: Acute Plan #Right thalamic infarct -symptoms improving, no apparent deficits -right thalamic infarct -appreciate neuro recs: DAPT, DMII management, statin, smoking cessation -aspirin/plavix, statin -reitereted importance of DMII management -LDL 85, continue high intensity statin #acute kidney injury on CKD3a -likely contrast induced nephropathy -Cr up to 1.8, will continue to monitor -patient has underlying renal disease #UTI -levaquin for UTI ,was on rocephin #Chronic conditions -DMII: lantus 18u qHS, sliding scale insulin, accucheck ACHS, hypoglycemia protocol. A1c was 13 last year -nicotine dependence: smoking cessation counseling Diet: Diabetic diet DVT ppx: ambulatory Code status: Full code Disposition: likely home tomorrow Subjective Date/time seen: 07/20/23 20:34 Interval history: Patient seen and examined. She is doing well clinically. However her Cr continues to rise which is likely from the contrast she had received several days ago. We will continue to monitor and anticipate discharge tomorrow. We will continue levaquin ABx. She denies fever, chills, N/V/D, chest pain, dyspnea. Review of Systems Review of Systems: 10 point ROS complete, negative other than what is specified in HPI. Exam Narrative: - GENERAL: Pleasant womain in no acute distress. Well-nourished. - EYES: EOMI. Anicteric. - HENT: Moist mucous membranes. - LUNGS: Clear to auscultation bilaterally, no wheezing, rhonchi, or rales. - CARDIOVASCULAR: Regular rate and rhythm. No murmur. No JVD. - ABDOMEN: Soft, non-tender and non-distended. No palpable masses. - EXTREMITIES: No edema. Peripheral pulses 2+. Non-tender. - NEUROLOGIC: No focal neurological deficits. CN II-XII grossly intact. - PSYCHIATRIC: Awake, Alert and oriented x 3. Appropriate mood and affect. - SKIN: No rashes or lesions. Warm. - LYMPH: No cervical lymphadenopathy. Objective Data Vital Signs Vital Signs: Vital Signs - 24 hr 07/19/23 22:00 07/20/23 04:46 07/20/23 08:00 Temperature 36.1 C L 36.1 C L Pulse Rate 64 75 Respiratory Rate 16 16 Blood Pressure 131/59 L 137/58 L Pulse Oximetry 98 100 Oxygen Delivery Room Air 07/20/23 14:00 07/20/23 08:00 07/20/23 12:00 Temperature 36.1 C L Pulse Rate 80 67 79 Respiratory Rate 16 Blood Pressure 111/60 Pulse Oximetry 100 Oxygen Delivery 07/20/23 16:00 Temperature Pulse Rate 65 Respiratory Rate Blood Pressure Pulse Oximetry Oxygen Delivery Intake/Output Intake/Output: Intake & Output 07/17/23 07/18/23 07/19/23 07/20/23 23:59 23:59 23:59 23:59 Intake Total 290 1302 1070 Output Total 301 175 Balance -11 1302 895 Meds/Results Medications: Active Medications Generic Name Dose Route Start Last Admin Trade Name Freq PRN Reason Stop Dose Admin Aspirin 81 mg 07/18/23 09:00 07/20/23 08:16 Aspirin 81 Mg Chewable Tablet PO 81 mg DAILY PRERNA Administration Atorvastatin Calcium 40 mg 07/18/23 09:00 07/20/23 08:16 Atorvastatin 40 Mg Tablet PO 40 mg DAILY PRERNA Administration Clopidogrel Bisulfate 75 mg 07/18/23 10:15 07/20/23 08:15 Clopidogrel Bisulfate 75 Mg Tablet PO 75 mg QAM PRERNA Administration Dextrose 12.5 gm 07/18/23 08:47 Dextrose 50% 25 Gm/50 Ml Syringe IV PUSH PRN PRN Hypoglycemia Protocol
[2023-07-20 20:51] LABS: Glucose Point of Care 252 mg/dl (65-105)
[2023-07-20] MEDS: INSULIN GLARGINE (*BKC) 100 UNITS/ML 18 UNITS SUB-Q (20:59)
[2023-07-21] VITALS: PULSE 61
[2023-07-21 04:00] VITALS: PULSE 60
[2023-07-21 05:10] VITALS: BP 119/67; PULSE 65; RESP 14; TEMP 36.4; O2SAT 99
[2023-07-21 06:28] LABS: Hematocrit 36.9 % (37.0-47.0); Hemoglobin 11.9 g/dL (12.0-15.0); Mean Corpuscular HGB Conc 32.2 g/dl (32-36); Mean Corpuscular Hemoglobin 29.5 pg (26-34); Mean Corpuscular Volume 91.6 fl (80-100); Platelet Count Result 265 k/mm3 (150-375); Red Blood Count 4.03 M/mm3 (4.2-5.4); Red Cell Distribution Width 11.9 % (11.5-14.5); White Blood Count 11.3 K/mm3 (4.5-10.0)
[2023-07-21 06:45] LABS: Albumin Level 3.6 g/dL (3.5-5.1); Anion Gap 8 mmol/L (4-12); Blood Urea Nitrogen 23 mg/dL (7-17); Calcium 9.6 mg/dL (8.4-10.2); Carbon Dioxide 25 mmol/L (22-30); Chloride 104 mmol/L (98-107); Estimated CRCL calculation 39 ml/min; Estimated Glomerular Filt Rate 35; Glucose 210 mg/dL (65-110); Phosphorus 4.4 mg/dL (2.5-4.5); Potassium 4.1 mmol/L (3.4-5.0); Sodium 137 mmol/L (137-145)
[2023-07-21 07:54] LABS: Glucose Point of Care 201 mg/dl (65-105)
[2023-07-21 08:00] VITALS: PULSE 71
[2023-07-21] MEDS: CLOPIDOGREL BISULFATE 75 MG TABLET PO (08:34)
[2023-07-21] MEDS: ASPIRIN 81 MG CHEWABLE TABLET PO (08:34)
[2023-07-21] MEDS: levoFLOXacin 250 MG TABLET PO (08:34)
[2023-07-21] MEDS: INSULIN ASPART (*BKC) 100 UNITS/ML SUB-Q ×2 (08:34→12:12)
[2023-07-21] MEDS: ATORVASTATIN 40 MG TABLET PO (08:34)
[2023-07-21 11:55] LABS: Glucose Point of Care 355 mg/dl (65-105)
[2023-07-21 12:00] VITALS: PULSE 74
--- NOTE | 2023-07-21 13:19 | PM.DS ---
DS: Admitting Diagnosis Discharge Date 07/21/23 Admitting Diagnosis Left-sided facial numbness DS: Discharge Diagnosis Discharge Diagnosis (1) Right thalamic infarction: Code(s): I63.81 - Other cerebral infarction due to occlusion or stenosis of small artery Status: Acute (2) Smoker: Code(s): F17.200 - Nicotine dependence, unspecified, uncomplicated Status: Acute (3) Stage 3a chronic kidney disease (CKD): Code(s): N18.31 - Chronic kidney disease, stage 3a Status: Acute (4) IDDM (insulin dependent diabetes mellitus): Status: Acute Plan #Right thalamic infarct -symptoms improving, no apparent deficits remaining -right thalamic infarct seen on MRI -appreciate neuro recs: DAPT, DMII management, statin, smoking cessation - echocardiogram shows EF 55-60%, grade 1 diastolic dysfunction, no cause for stroke seen -aspirin/plavix, statin -reitereted importance of DMII management. have increased home Lantus from 15 units to 20 units, Rx given -LDL 85, continue high intensity statin - patient worked well with therapy and will not need inpatient rehab #acute kidney injury on CKD3a -likely contrast induced nephropathy -Cr peaked at 1.8, down to 1.5 with supportive care -patient has underlying renal disease - patient stay hydrated, and may resume home med #UTI? -levaquin for UTI ,was on rocephin, completed treatment #Chronic conditions -DMII: lantus 18u qHS, sliding scale insulin, accucheck ACHS, hypoglycemia protocol. A1c was 13 last year -nicotine dependence: smoking cessation counseling Diet:?Diabetic diet DVT ppx:?ambulatory Code status:?Full code Disposition:?likely home tomorrow DS: Summary Hospital Course Reason for hospitalization: CVA Hospital Course: Patient is a 63-year-old female with past med history of poorly controlled insulin-dependent type 2 diabetes, dyslipidemia, nicotine dependence 2, CKD stage IIIA who presents to ED with complaints of left face and arm numbness. Patient on workup was found to have a right thalamic stroke. recommendation from neurology is for dual anti-platelet therapy aspirin, Plavix, patient is on statin 40 mg Lipitor. Her LDL is 85, will continue high-intensity statin. Echocardiogram showed no wall motion abnormality, EF 55-60%, grade 1 diastolic dysfunction. On telemetry patient did not have any abnormal rhythms. CTA neck shows no large vessel occlusion or stenosis. It is unclear where the source of her stroke was. We discussed importance of smoking cessation and diabetes management. I have increased her home Lantus from 15 units to 20 units nightly. Rx for Plavix, refill on Lantus given. Of note she started developing acute kidney injury secondary to the IV contrast from imaging. With supportive care her creatinine peaked at 1.8 and then decreased to 1.5. does also concern for UTI and patient was treated with Levaquin. No more antibiotics needed on discharge. At time of discharge patient's labs are stable, vitals stable, patient is stable for discharge home. Patient to follow up with PCP for further management of diabetes and smoking cessation. Patient understands and agrees with plan Status at Discharge Cognitive/behavioral status at discharge: stable, baseline Time Spent with Patient Time attestation: Total time spent providing and/or coordinating discharge services: 35 minutes Exam Narrative: - GENERAL:? Pleasant womain in no acute distress. Well-nourished. - EYES: EOMI. Anicteric. - HENT: Moist mucous membranes. - LUNGS: Clear to auscultation bilaterally, no wheezing, rhonchi, or rales. - CARDIOVASCULAR: Regular rate and rhythm. No murmur. No JVD. - ABDOMEN: Soft, non-tender and non-distended. No palpable masses. - EXTREMITIES: No edema. Peripheral pulses 2+. Non-tender. - NEUROLOGIC: No focal neurological deficits. CN II-XII grossly intact. - PSYCHIATRIC: Awake, Alert and oriented x 3. Appropriate mood and affect. - SKIN: N
[2023-07-21 13:36] VITALS: BP 107/55; PULSE 72; RESP 16; TEMP 35.9; O2SAT 100
== END 2023-07-21 13:45 | disposition home or self-care (01) | DRG 45 ==
LOC: ANHED 20:16 → ANHIMU 21:06 → ANH2MED 07-18 19:03 → ANH3MEDSUR 07-19 16:45
PROVIDERS: Emergency Medicine; Internal Medicine; Admitting Provider Internal Medicine; Emergency Provider Physician Assistant; PCP Emergency Medicine; Visit Provider Student in an Organized Health Care Education/Training Program
DX: I63.9 Cerebral infarction, unspecified (principal); R29.818 Other symptoms and signs involving the nervous system; R20.0 Anesthesia of skin; R29.810 Facial weakness; G81.94 Hemiplegia, unspecified affecting left nondominant side; E11.65 Type 2 diabetes mellitus with hyperglycemia; I12.9 Hypertensive chronic kidney disease with stage 1 through stage 4 chronic kidney disease, or unspecified chronic kidney disease; E11.22 Type 2 diabetes mellitus with diabetic chronic kidney disease; N14.11 Contrast-induced nephropathy; N17.9 Acute kidney failure, unspecified; N18.31 Chronic kidney disease, stage 3a; E78.5 Hyperlipidemia, unspecified; Z20.822 Contact with and (suspected) exposure to COVID-19; N39.0 Urinary tract infection, site not specified; R32 Unspecified urinary incontinence; E11.42 Type 2 diabetes mellitus with diabetic polyneuropathy; F17.210 Nicotine dependence, cigarettes, uncomplicated; R94.31 Abnormal electrocardiogram [ECG] [EKG]; R79.89 Other specified abnormal findings of blood chemistry
CPT/HCPCS: 36415; 70450; 70496; 70498; 70553; 71045; 74150; 76775; 80053; 80061; 80069; 81001; 82948; 84484; 85025; 85027; 85610; 85730; 87086; 87186; 87637; 93005; 93306; 96365; 96375; 97110; 97116; 97161; 97165; 97530; 97535; 99285; A9270; A9577; G0378; G0379; J0696; J1815; Q9967

== ENCOUNTER 2024-04-01 20:36 | Inpatient (IN) | payer SELFPAY ==
--- NOTE | ~2024-04-01 | XR_ITS ---
EXAMINATION: XR humerus RT DATE: 04/01/2024 21:30 INDICATION: Right humerus fracture. TECHNIQUE: 2 views of right humerus on 3 radiographs were obtained. COMPARISON: None. FINDINGS: There is a comminuted fracture of proximal humerus with displaced fracture components at th e greater tuberosity and surgical neck. The main distal fracture fragment demonstrates 1.6 cm anterio r displacement, 2.2 cm medial displacement, 3.3 cm shortening, and undefined angulation. The glenohum eral joint is not well profiled. There is mild acromioclavicular joint osteoarthritis. IMPRESSION: 1. Comminuted three-part fracture of proximal right humerus. Reviewed, dictated and finalized at location A. R EQUIPMENT LIEUTENANT
--- NOTE | ~2024-04-01 | CT_ITS ---
EXAMINATION: CT brain wo con DATE: 04/01/2024 21:46 INDICATION: Weakness. Fall. TECHNIQUE: Computed tomography (CT) of the head was performed without intravenous contrast. The mA wa s adjusted according to patient size. Iterative reconstruction technique was employed. The dose-lengt h product was 756.67 mGy-cm. COMPARISON: Head CT 07/17/2023 FINDINGS: There is an old infarct in the right occipital lobe. There is an old infarct involving the right basal ganglia and internal capsule. There are scattered areas of low attenuation in the cerebra l white matter. There is an old infarct in the left basal ganglia. There is an old infarct in the rig ht thalamus. There is no intracranial hemorrhage, acute infarction, or abnormal intracranial mass les ion. The ventricles are normal in size. There is mild mucosal thickening in paranasal sinuses. The ma stoid air cells are normal. There are likely changes of ocular lens replacement surgeries. Right paro tid gland is enlarged with surrounding fat stranding. IMPRESSION: 1. 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 2. Mild nonspecific cerebral white matter disease, which likely represents chronic small vessel ische paola disease. 3. Right-sided parotiditis. Reviewed, dictated and finalized at location A. 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 Old infarcts involving the right occipital lobe, bilateral basal ganglia, ri ght internal capsule, and right thalamus. 2. Mild nonspecific cerebral white matter disease, which likely represents material requirements worker melissa small vessel ischemic disease. 3. Right-sided parotiditis.
--- NOTE | ~2024-04-01 | CT_ITS ---
EXAMINATION: CT cervical spine wo con DATE: 04/01/2024 21:46 INDICATION: Neck injury. Fall. Weakness. TECHNIQUE: Computed tomography (CT) of the cervical spine was performed without intravenous contrast. Automated exposure control and iterative reconstruction technique were employed. The dose-length pro duct was 369.39 mGy-cm. COMPARISON: None FINDINGS: Right parotid gland is enlarged with surrounding fat stranding consistent with parotiditis. There is fat stranding in right neck. There are mildly enlarged bilateral spinal accessory chain nod es and a left occipital lymph node. There is 8 degrees dextrocurvature of cervical spine. Vertebral b fermin heights are normal. There is mildly decreased disc height at C4-C5 and C5-C6. The following disc levels are specifically discussed: C2-C3: There is moderate left uncovertebral joint osteoarthritis. There is mild right and moderate le ft facet joint osteoarthritis. There is mild left neural foraminal stenosis. There is no central will l stenosis. C3-C4: There is no uncovertebral joint osteoarthritis. There is severe left facet joint osteoarthriti s. There is mild left neural foraminal stenosis. There is no central canal stenosis. C4-C5: There is no uncovertebral joint osteoarthritis. There is mild right and moderate left facet kevan int osteoarthritis. There is no neural foraminal stenosis. There is no central canal stenosis. C5-C6: There is no uncovertebral joint osteoarthritis. There is no facet joint osteoarthritis. There is no neural foraminal stenosis. There is no central canal stenosis. C6-C7: There is no uncovertebral joint osteoarthritis. There is mild bilateral facet joint osteoarthr itis. There is no neural foraminal stenosis. There is no central canal stenosis. C7-T1: There is no uncovertebral joint osteoarthritis. There is mild bilateral facet joint osteoarthr itis. There is no neural foraminal stenosis. There is no central canal stenosis. IMPRESSION: 1. No fracture. 2. Mild cervical spondylosis. 3. Right-sided parotiditis. 4. Mild bilateral cervical lymphadenopathy, likely reactive. Reviewed, dictated and finalized at location A. SMAN
--- NOTE | ~2024-04-01 | CT_ITS ---
EXAMINATION:CT diagnostic chest wo con DATE: 04/01/2024 21:46 INDICATION: Right chest wall ecchymosis. Fall. TECHNIQUE: Computed tomography (CT) of the chest was performed without intravenous contrast. Automate d exposure control and iterative reconstruction technique were employed. The dose-length product (DLP ) was 458.94 mGy-cm. COMPARISON: CT abdomen 07/19/2023 FINDINGS: The lungs demonstrate mild atelectasis. No pleural effusion. The heart size is normal. Ther e is a small pericardial effusion. There are coronary artery calcifications. There is a 6.5 cm cyst i n right kidney. There are multiple old bilateral rib fractures. There is a comminuted fracture of pro ximal right humerus. IMPRESSION: 1. Small pericardial effusion. 2. Comminuted fracture of proximal right humerus. Reviewed, dictated and finalized at location A. CTURAL MILL SUPERVISOR
--- NOTE | ~2024-04-01 | CT_ITS ---
EXAMINATION: CT abdomen pelvis w con DATE: 04/02/2024 01:08 INDICATION: Sepsis. Urinary tract infection. Hematuria. TECHNIQUE: Computed tomography (CT) of the abdomen and pelvis was performed with 100 mL Omnipaque 350 intravenous contrast. Automated exposure control and iterative reconstruction technique were employe d. The dose-length product was 1214.11 mGy-cm. COMPARISON: CT abdomen 07/19/2023 FINDINGS: The visualized portions of the lung bases demonstrate mild atelectasis. No pleural effusion . Cardiomegaly is noted. There is thrombus in left ventricular apex. No pericardial effusion. There a re coronary artery calcifications. The liver and spleen are normal. The gallbladder is absent. The pa ncreas and adrenal glands are normal. There is cortical thinning of the kidneys. There is a 6.[address] in right kidney. There is gas in the bladder lumen and a calyx of left kidney, likely from recent instrumentation. There is wall thickening of the bladder, consistent with cystitis. There are no dila amber loops of bowel. The appendix is normal. There is an umbilical hernia containing fat. There is dave cified atherosclerosis of the aorta and many of the other arteries. There are no pathologically enlar ged lymph nodes. There is no free intraperitoneal fluid. There is fat stranding posterior to left ini tial tuberosity, consistent with inflammation/scarring. There is a supraumbilical ventral hernia cont aining fat. There are bilateral rib fractures. There is a chronic burst fracture of L3. IMPRESSION: 1. Cystitis. 2. Thrombus in left ventricular apex of the heart. Reviewed, dictated and finalized at location A. RVISOR GLYCERIN
--- NOTE | ~2024-04-01 | US_ITS ---
RIGHT UPPER EXTREMITY VENOUS ULTRASOUND Ordering provider: Gerardo Fonseca MD History: . edema . Comparison: None FINDINGS: --JUGULAR: Patent and free of thrombus. Normal compressibility, phasic flow and augmentation. --SUBCLAVIAN: Patent and free of thrombus. Normal compressibility, phasic flow and augmentation. --AXILLARY: Patent and free of thrombus. Normal compressibility, phasic flow and augmentation. --BRACHIAL: Patent and free of thrombus. Normal compressibility, phasic flow and augmentation. --CEPHALIC: Patent and free of thrombus. Normal compressibility, phasic flow and augmentation. --BASILIC: Thrombosed. --RADIAL: Patent and free of thrombus. Normal compressibility, phasic flow and augmentation. --ULNAR: Patent and free of thrombus. Normal compressibility, phasic flow and augmentation. IMPRESSION: THROMBOSED RIGHT BASILIC VEIN. OTHERWISE, UNREMARKABLE. Reviewed, dictated and finalized at location A. RALTY LAWYER
[2024-04-01 20:50] VITALS: BP 119/48; PULSE 101; PULSE 110; RESP 18; TEMP 36.8; O2SAT 99
--- NOTE | 2024-04-01 21:13 | PC.NURSE ---
Pt was given ice pack for right fractured arm/humerus.
--- NOTE | 2024-04-01 21:15 | ECG_ITS ---
Test Date: 2024-04-01 21:52:00 Measurements Intervals [place] Rate: 100 P: 39 FL: 150 QRS: -38 QRSD: 94 T: 66 QT: 351 QTc: 454 Interpretive Statements SINUS TACHYCARDIA LEFT AXIS DEVIATION [QRS AXIS < -30] LOW QRS VOLTAGE IN PRECORDIAL LEADS [QRS DEFLECTION < 1.0 mV IN CHEST LEADS] ANTEROSEPTAL MYOCARDIAL INFARCTION , OF INDETERMINATE AGE [40+ ms Q WAVE IN V1-V4] No previous ECG available for comparison Electronically Signed On 04-02-2024 07:40:16 VALUE ADVISOR by Meet Box M.D.
[2024-04-01] MEDS: ACETAMINOPHEN 500 MG TABLET 1000 MG PO (21:50)
[2024-04-01 22:20] LABS: Glucose Point of Care 485 mg/dl (65-105)
[2024-04-01 22:21] VITALS: BP 80/66; PULSE 103; RESP 18; O2SAT 100
[2024-04-01 22:52] VITALS: BP 110/58; PULSE 103; RESP 18; O2SAT 100
[2024-04-01 23:04] LABS: Basophils Absolute Auto 0.1 K/mm3 (0.0-0.1); Basophils Percent Auto 0.4 % (0.2-1.2); Eosinophils Absolute Auto 0.2 K/mm3 (0-0.3); Eosinophils Percent Auto 1.2 % (0-4.4); Hematocrit 27.6 % (37.0-47.0); Hemoglobin 8.6 g/dL (12.0-15.0); Immature Granulocyte Absolute 0.12 K/mm3 (0.00-0.031); Immature Granulocyte Percent A 0.6 % (0-0.5); Lymphocytes Absolute Auto 2.28 K/mm3 (0.9-3.2); Lymphocytes Percent Auto 12.3 % (18.3-44.2); Mean Corpuscular HGB Conc 31.2 g/dl (32-36); Mean Corpuscular Hemoglobin 29.4 pg (26-34); Mean Corpuscular Volume 94.2 fl (80-100); Monocytes Absolute Auto 0.8 K/mm3 (0.1-0.6); Monocytes Percent Auto 4.1 % (2.6-8.5); Neutrophils Absolute Auto 15.1 K/mm3 (1.3-6.7); Neutrophils Percent Auto 81.4 % (45.5-73.1); Platelet Count Result 440 k/mm3 (150-375); Red Blood Count 2.93 M/mm3 (4.2-5.4); Red Cell Distribution Width 12.2 % (11.5-14.5); White Blood Count 18.6 K/mm3 (4.5-10.0)
[2024-04-01] MEDS: SODIUM CHLORIDE 0.9% IV 1,000 ML 999 ML IV CONT (23:10)
[2024-04-01 23:17] LABS: INR 1.2; Prothrombin Time 15.7 Seconds (11.1-14.7)
[2024-04-01 23:18] LABS: Partial Thromboplastin Time 38.6 Seconds (22.3-36.8)
[2024-04-01 23:20] LABS: Add Urine Microscopic? YES; Appearance Urine Turbid (Clear); Bacteria Urine 4+ /hpf; Bilirubin Urine 2+ (Negative); Blood Urine 3+ (Negative); Color Urine Orange (Yellow); Glucose Urine UA 3+ mg/dL (Negative); Ketones Urine Negative (Negative); Leukocyte Esterase Ur 3+ LEU/UL (Negative); Mucus Urine Present /lpf; Need Manual Microscopic Reviewed; Nitrate Urine Negative (Negative); Protein Urine 4+ mg/dL (Negative); RBC Urine >100 /hpf (0-2); Specific Grav Ur 1.022 (1.001-1.035); Squamous Epithelial Cell Urine Moderate /hpf (Few); Urobilinogen Urine 0.2 mg/dL (<2.0); WBC Urine >100 /hpf (0-3)
[2024-04-01 23:22] LABS: Ethanol < 10 mg/dL (<10)
[2024-04-01 23:23] LABS: Lactic Acid Reflex 2.9 mmol/L (0.7-2.0)
[2024-04-01 23:24] LABS: Benzodiazepines Screen Urine Negative (Negative)
[2024-04-01 23:32] LABS: Barbiturate Screen Urine Negative (Negative)
[2024-04-01 23:51] LABS: Influenza A QL RT-PCR Negative (Negative); Influenza B QL RT-PCR Negative (Negative); RSV RNA, RT-PCR Negative (Negative); SARS-CoV-2 RNA PCR Positive (Negative)
[2024-04-02] VITALS (18 sets, daily range): BP systolic 96–127; BP diastolic 31–87; PULSE 68–102; RESP 14–22; TEMP 36.2–37; O2SAT 94–100; BMI 36.6
--- NOTE | 2024-04-02 | ECHO_ITS ---
Patient Info Name: Maria Long Age: 63 years : 1960 Gender: Female Ht: 68 in Wt: 241 lbs BSA: 2.33 m2 HR: 98 bpm BP: 126 / 87 mmHg Technical Quality: Fair Exam Date: 04/02/2024 11:13 AM Exam Location: Echo Lab Exam Room: [facility] Patient Status: Inpatient Admit Date: 04/02/2024 Staff Ordering Physician: Gerardo Fonseca MD Clerical Specialist: Tami Diaz RDCS Attending Provider: Carola Danielle DO Referring Physician: ECTOR; Exam Type: CA echo doppler color flow Study Info Complete two-dimensional, color flow and Doppler transthoracic echocardiogram is performed. Summary 1. Complete two-dimensional, color flow and Doppler transthoracic echocardiogram is performed. 2. Left ventricular chamber dimension is mildly enlarged. 3. Left ventricular systolic function is moderately reduced, estimated at 40-45%. 4. The left ventricular diastolic function is abnormal. 5. There is small pericardial effusion. 6. Technically difficult study. Left Ventricle Left ventricular chamber dimension is mildly enlarged. Left ventricular systolic function is moderately reduced, estimated at 40-45%. There is moderately increased left ventricular wall thickness. The left ventricular diastolic function is abnormal. Right Ventricle Right ventricular chamber dimension is normal. Right ventricular systolic function is normal. Left Atria Left atrial chamber dimension is normal. Right Atria Right atrial chamber dimension is normal. Aortic Valve The aortic valve is trileaflet. There is no aortic valve sclerosis. There is no aortic valve stenosis. There is no aortic valve regurgitation. Pulmonic Valve The pulmonic valve is normal. There is no pulmonic valve stenosis. There is no pulmonic regurgitation. Mitral Valve The mitral valve has normal leaflets. There is no mitral valve stenosis. There is no mitral valve regurgitation. Tricuspid Valve The tricuspid valve leaflets are normal. There is no significant tricuspid valve stenosis. There is no tricuspid valve regurgitation. Pericardium/Pleural The pericardium appears normal. There is small pericardial effusion. Inferior Vena Cava not well visualized. Aorta The aortic root size at the sinus of Valsalva is normal. The prox ascending aorta size is normal. Left Ventricular Outflow Tract Name Value Normal LVOT 2D LVOT Diameter 2.4 cm Pulmonic Valve Name Value Normal PV Doppler PV Peak Gradient 6 mmHg PV Regurgitation Doppler VA Peak End Diastolic Velocity 99 cm/s Mitral Valve Name Value Normal MV Doppler MV Decel [place] 314 cm/s2 MV PHT 69 ms MV Area (PHT) 3.2 cm2 4.0-5.0 MV Diastolic Function MV E Peak Velocity 75 cm/s MV A Peak Velocity 99 cm/s MV E/A 0.8 MV Decel Time 238 ms MV Annular TDI MV E/e' (Septal) 12.3 <=8.0 MV E/e' (Lateral) 15.2 <=8.0 MV E/e' (Average) 13.8 Aortic Valve Name Value Normal AV Regurgitation 2D LVOT Area 4.5 cm2 Ventricles Name Value Normal LV Dimensions 2D/MM IVS Diastolic Thickness (2D) 0.9 cm 0.6-1.0 LVID Diastole (2D) 6.6 cm 3.8-5.2 LVIW Diastolic Thickness (2D) 0.9 cm 0.6-0.9 LVID Systole (2D) 4.8 cm 2.2-3.5 LVOT Diameter 2.4 cm LV Mass (2D Cubed) 264.96 g 67.00-162.00 LV Mass Index (2D Cubed) 113 g/m2 43-95 Relative Wall Thickness (2D) 0.28 LV Fractional Shortening/Ejection Fraction 2D/MM LV Fractional Shortening (2D) 26 % 27-45 LV EF (2D Teicholz) 51 % 54-74 Atria Name Value Normal RA Dimensions RA Area (4C) 16.8 cm2 <=18.0 Report Signatures
--- NOTE | 2024-04-02 00:04 | ED.GENADULT ---
HPI - General Adult General Chief complaint: Weakness Stated complaint: feel weak in the legs Time Seen by Provider: 04/01/24 20:55 History of Present Illness HPI narrative: This is a 63 year female presenting for weakness. On March 23 the patient had a fall and fractured her right humerus. She was sitting [facility] and was formed the fracture but the family do not think that they scanned her head despite striking her head and losing consciousness. Since then the patient has not been getting out of bed. She says that she is too weak to get up. She is denying fever chills chest pain difficulty breathing abdominal pain or urinary symptoms. She does get frequent UTIs. She has also noticed swelling on her right cheek. The patient is tearful and states multiple life stressors including her failing health as well as accumulating bills. Related Data Home Medications ?Medication ?Instructions ?Recorded ?Confirmed ?Last Taken ?Type aspirin 81 mg chewable tablet 1 tablet PO DAILY 10/28/22 07/17/23 10/28/22 08:00 History atorvastatin 40 mg tablet 40 mg PO DAILY 10/28/22 07/17/23 Unknown History clotrimazole 1 % topical cream 1 applic topical BID PRN Rash 10/28/22 07/17/23 10/28/22 08:00 History Allergies Allergy/AdvReac Type Severity Reaction Status Date / Time No Known Allergies Allergy Verified 07/17/23 22:18 FOR[facility]LY [facility], [facility] Past Medical History Medical History (Updated 04/02/24 @ 02:52 by Uche Wheeler MD) Smoker Right thalamic infarction Stroke Family History Family History Sibling Breast cancer Father Acute myocardial infarction Congestive heart failure Sibling Acute myocardial infarction Social History Social History Smoking packs per day: 0.10 Smoking cigarettes per day: 2.0 Years smoked: 40 Smoking pack-years: 4.00 Smoking status: Current every day smoker Tobacco type: cigarettes Additional smoking assessment comments: PT STARTED AGE 17, STOPPED 5YRS AGO, BUT HAS RESTARTED Alcohol intake: never Substance use: never Do You Feel Safe in your Home?: Yes Lack of Transportation: YES Lack of Food: Never True Current Housing: I Have Housing Concerned About Future Housing: No Difficulty Paying Gas/Electric Bills: No Difficulty Paying for Meds: No Currently Unemployed: No Education: High School Diploma/GED Difficulty w/ Childcare or Family Care: No Spiritual care concerns: No Exam Narrative: APPEARANCE: Patient appears older than her stated age Head: Mild swelling over the right parotid gland EYES: EOMI, NOSE: Atraumatic NECK: Trachea midline RESPIRATORY: No increased rate of breathing clear to auscultation CARDIOVASCULAR: tachycardic, no peripheral edema Rectal exam: JANETH negative for blood. Hemoccult negative. ABDOMINAL: Non-distended , soft nontender MUSCULOSKELETAl: deformity and tenderness over the right upper extremity, additionally significant ecchymosis over the right breast. Hand is neurovascularly intact. NEURO: Alert. Moving 4/4 extremities SKIN:: Warm, dry. Normal color PSYCHIATRIC: Normal affect Course Vital Signs Vital signs: Vital Signs Temperature 98.2 F 04/01/24 20:50 Pulse Rate 110 H 04/01/24 20:50 Respiratory Rate 18 04/01/24 20:50 Blood Pressure 119/48 L 04/01/24 20:50 Pulse Oximetry 99 04/01/24 20:50 Oxygen Delivery Room Air 04/01/24 20:50 Temperature 98.2 F 04/01/24 20:50 Pulse Rate 101 H 04/02/24 02:15 Respiratory Rate 18 04/02/24 02:15 Blood Pressure 127/61 04/02/24 02:15 Pulse Oximetry 99 04/02/24 02:15 Oxygen Delivery Room Air 04/01/24 20:50 Medical Decision Making [facility] Narrative Medical decision making narrative: -Course: 63-year-old female presenting for weakness and lethargy since breaking her arm 10 days ago. Patient is tachycardic on arrival. Patient full sepsis workup obtained. Workup significant for an elevated white blood cell count and lactic. Sources of infection include urinary tract infection/covid/parotitis. No respiratory symptoms or hypoxia. review of previous cultures showed woods sensitive Klebsiella. Patient started on ceftriaxone/flagyl to cover UTI/Parotitis and given 30 cc/kilogram bolus. -DDX includes but is not limited to: Depression, sepsis UTI pneumonia viral syndrome -Co-morbidities complicating care: high cholesterol, diabetes, hypertension -Independent interpretation of studies: white count 18.6 hemoglobin 8.6 from a baseline of 11-12. no blood on digital rectal exam. Significant ecchymosis of the right humerus and left breast which may be a source of blood loss. Type and screen added she may need transfusion after fluid resuscitation potassium 5.4. BUN 67 with a creatinine of 1.8 lactic 2.9. Magnesium 1.5 which is been repleted urine indicative infection COVID positive UDS negative Independent EKG interpretation: Rhythm [sinus], Rate [100], [place] -[normal], [place] -[normal], QRS [narrow], QTC [normal], T waves -[negative for concerning inversions], ST Segments - [Negative for concerning elevations] Final interpretations: [Normal Sinus Rhythm] -Discussion of Management/Consultants:Carola Danielle -Shared decision making / Disposition:admitted. Vital Signs Vital Signs: Vital Signs Temperature 98.2 F 04/01/24 20:50 Pulse Rate 110 H 04/01/24 20:50 Respiratory Rate 18 04/01/24 20:50 Blood Pressure 119/48 L 04/01/24 20:50 Pulse Oximetry 99 04/01/24 20:50 Oxygen Delivery Room Air 04/01/24 20:50 Temperature 98.2 F 04/01/24 20:50 Pulse Rate 101 H 04/02/24 02:15 Respiratory Rate 18 04/02/24 02:15 Blood Pressure 127/61 04/02/24 02:15 Pulse Oximetry 99 04/02/24 02:15 Oxygen Delivery Room Air 04/01/24 20:50 Lab Data 04/01/24 22:53 04/01/24 22:53 Labs: Lab Results 04/01/24 04/01/24 04/01/24 Range/Units 22:16 22:53 22:53 WBC 18.6 H (4.5-10.0) K/mm3 RBC 2.93 L (4.2-5.4) M/mm3 Hgb 8.6 L D (12.0-15.0) g/dL Hct 27.6 L (37.0-47.0) % MCV 94.2 (80-100) fl MCH 29.4 (26-34) pg MCHC 31.2 L (32-36) g/dl RDW 12.2 (11.5-14.5) % Plt Count 440 H D (150-375) k/mm3 MPV 10.0 (7.4-10.4) fl Immature Gran % (Auto) 0.6 H (0-0.5) % Neut % (Auto) 81.4 H (45.5-73.1) % Lymph % (Auto) 12.3 L (18.3-44.2) % [place] % (Auto) 4.1 (2.6-8.5) % Eos % (Auto) 1.2 (0-4.4) % Baso % (Auto) 0.4 (0.2-1.2) % Lymph # (Auto) 2.28 (0.9-3.2) K/mm3 [place] # (Auto) 0.8 H (0.1-0.6) K/mm3 Eos # (Auto) 0.2 (0-0.3) K/mm3 Baso # (Auto) 0.1 (0.0-0.1) K/mm3 Abs Immat Gran (auto) 0.12 H (0.00-0.031) K/mm3 Absolute Neuts (auto) 15.1 H (1.3-6.7) K/mm3 Absolute Nucleated RBC 0.000 (0.0-0.012) K/mm3 Nucleated RBC % 0.0 (0.0-0.2) % PT 15.7 H (11.1-14.7) Seconds INR 1.2 APTT 38.6 H (22.3-36.8) Seconds Sodium 133 L (137-145) mmol/L Potassium 5.4 H (3.4-5.0) mmol/L Chloride 104 (98-107) mmol/L Carbon Dioxide 24 (22-30) mmol/L Anion Gap 5 (4-12) mmol/L BUN 67 H D (7-17) mg/dL Creatinine 1.80 H (0.7-1.0) mg/dL Estim Creat Clear Calc 37 ml/min Estimated GFR 28 L (59 - ) Glucose 454 H (65-110) mg/dL POC Capillary Glucose 485 H (65-105) mg/dl Lactic Acid 2.9 H (0.7-2.0) mmol/L Calcium 8.4 (8.4-10.2) mg/dL Phosphorus 3.1 Cancelled (2.5-4.5) mg/dL Magnesium 1.5 L (1.6-2.3) mg/dL Total Bilirubin (0.2-1.3) mg/dL AST (14-36) U/L ALT (6-35) U/L Alkaline Phosphatase (38-126) U/L Total Protein (6.3-8.2) g/dL Albumin (3.5-5.1) g/dL Lipase (23-300) U/L TSH (Reflex) (0.465-4.68) uIU/mL Urine Color (Yellow) Urine Appearance (Clear) Urine pH (5.0-9.0) Ur Specific [place] (1.001-1.035) Urine Protein (Negative) mg/dL Urine Glucose (UA) (Negative) mg/dL Urine Ketones (Negative) mg/dL Ur Blood (Man) (Negative) Urine Nitrate (Negative) Urine Bilirubin (Negative) Urine Urobilinogen (<2.0) mg/dL Add Ur Microanalysis Leukocyte Esterase Rfl (Negative) BRITTNEY/UL Urine RBC (0-2) /hpf Urine WBC (0-3) /hpf Ur Squamous Epith Cells (Few) /hpf Urine Bacteria /hpf Urine Casts Urine Mucus /lpf Urine Opiates Screen (Negative) Urine Methadone Screen (Negative) Ur Barbiturates Screen (Negative) Ur Phencyclidine Scrn (Negative) Ur Amphetamine Screen (Negative) U Benzodiazepines Scrn (Negative) Urine Cocaine Screen (Negative) U Cannabinoids Screen (Negative) Ethyl Alcohol (<10) mg/dL Influenza A (RT-PCR) (Negative) Influenza B (RT-PCR) (Negative) RSV (RT-PCR) (Negative) SARS-CoV-2 RNA (RT-PCR) (Negative) 04/01/24 04/01/24 04/01/24 Range/Units 22:53 22:53 23:09 WBC (4.5-10.0) K/mm3 RBC (4.2-5.4) M/mm3 Hgb (12.0-15.0) g/dL Hct (37.0-47.0) % MCV (80-100) fl MCH (26-34) pg MCHC (32-36) g/dl RDW (11.5-14.5) % Plt Count (150-375) k/mm3 MPV (7.4-10.4) fl Immature Gran % (Auto) (0-0.5) % Neut % (Auto) (45.5-73.1) % Lymph % (Auto) (18.3-44.2) % [place] % (Auto) (2.6-8.5) % Eos % (Auto) (0-4.4) % Baso % (Auto) (0.2-1.2) % Lymph # (Auto) (0.9-3.2) K/mm3 [place] # (Auto) (0.1-0.6) K/mm3 Eos # (Auto) (0-0.3) K/mm3 Baso # (Auto) (0.0-0.1) K/mm3 Abs Immat Gran (auto) (0.00-0.031) K/mm3 Absolute Neuts (auto) (1.3-6.7) K/mm3 Absolute Nucleated RBC (0.0-0.012) K/mm3 Nucleated RBC % (0.0-0.2) % PT (11.1-14.7) Seconds INR APTT (22.3-36.8) Seconds Sodium (137-145) mmol/L Potassium (3.4-5.0) mmol/L Chloride (98-107) mmol/L Carbon Dioxide (22-30) mmol/L Anion Gap (4-12) mmol/L BUN (7-17) mg/dL Creatinine (0.7-1.0) mg/dL Estim Creat Clear Calc ml/min Estimated GFR (59 - ) Glucose (65-110) mg/dL POC Capillary Glucose (65-105) mg/dl Lactic Acid (0.7-2.0) mmol/L Calcium (8.4-10.2) mg/dL Phosphorus (2.5-4.5) mg/dL Magnesium Cancelled (1.6-2.3) mg/dL Total Bilirubin 0.5 (0.2-1.3) mg/dL AST 31 (14-36) U/L ALT 11 (6-35) U/L Alkaline Phosphatase 116 (38-126) U/L Total Protein 7.0 (6.3-8.2) g/dL Albumin 2.5 L (3.5-5.1) g/dL Lipase 35 Cancelled (23-300) U/L TSH (Reflex) 2.730 (0.465-4.68) uIU/mL Urine Color [place] H (Yellow) Urine Appearance Turbid H (Clear) Urine pH 5.0 (5.0-9.0) Ur Specific [place] 1.022 (1.001-1.035) Urine Protein 4+ H (Negative) mg/dL Urine Glucose (UA) 3+ H (Negative) mg/dL Urine Ketones Negative (Negative) mg/dL Ur Blood (Man) 3+ H (Negative) Urine Nitrate Negative (Negative) Urine Bilirubin 2+ H (Negative) Urine Urobilinogen 0.2 (<2.0) mg/dL Add Ur Microanalysis Reviewed Leukocyte Esterase Rfl 3+ H (Negative) BRITTNEY/UL Urine RBC >100 H (0-2) /hpf Urine WBC >100 H (0-3) /hpf Ur Squamous Epith Cells Moderate (Few) /hpf Urine Bacteria 4+ H /hpf Urine Casts 11-20 Urine Mucus Present /lpf Urine Opiates Screen Negative (Negative) Urine Methadone Screen Negative (Negative) Ur Barbiturates Screen Negative (Negative) Ur Phencyclidine Scrn Negative (Negative) Ur Amphetamine Screen Negative (Negative) U Benzodiazepines Scrn Negative (Negative) Urine Cocaine Screen Negative (Negative) U Cannabinoids Screen Negative (Negative) Ethyl Alcohol < 10 (<10) mg/dL Influenza A (RT-PCR) Negative (Negative) Influenza B (RT-PCR) Negative (Negative) RSV (RT-PCR) Negative (Negative) SARS-CoV-2 RNA (RT-PCR) Positive A (Negative) Critical Care Time Critical Care Time Critical Care Time: Yes Total Critical Care Time: 35 Discharge Plan Discharge Clinical Impression: UTI (urinary tract infection), Sepsis, Acute parotitis, COVID Patient Disposition: Still a Patient Condition: Stable Patient Language: Chadian Prescriptions: No Action clopidogrel 75 mg Tablet 75 mg PO QAM 90 Days Qty: 90 1RF insulin glargine [Lantus Solostar U-100 Insulin] 100 unit/mL (3 mL) insulin pen 20 unit SUBCUT HS Qty: 15 0RF Patient Comments: Patient has not taken due to running out atorvastatin 40 mg tablet 40 mg PO DAILY Patient Comments: PATIENT HASNT STARTED YET MED HASNT BEEN PICKEDUP/RECEIVED YET PER SPOUSE aspirin 81 mg tablet,chewable 1 tablet PO DAILY clotrimazole 1 % cream 1 applic TOPICAL BID PRN (Reason: Rash) Rx Instructions: Apply to left arm rash Follow-up/Referrals: Guanako,Hyacinth Knight MD [Primary Care Provider] -
[2024-04-02] MEDS: SODIUM CHLORIDE 0.9% IV 2,000 ML 999 ML IV CONT (00:20)
[2024-04-02 00:23] LABS: Alanine Aminotransferase 11 U/L (6-35); Albumin Level 2.5 g/dL (3.5-5.1); Alkaline Phosphatase 116 U/L (38-126); Anion Gap 5 mmol/L (4-12); Aspartate Amino Transferase 31 U/L (14-36); Bilirubin,Total 0.5 mg/dL (0.2-1.3); Blood Urea Nitrogen 67 mg/dL (7-17); Calcium 8.4 mg/dL (8.4-10.2); Carbon Dioxide 24 mmol/L (22-30); Chloride 104 mmol/L (98-107); Estimated CRCL calculation 37 ml/min; Estimated Glomerular Filt Rate 28; Glucose 454 mg/dL (65-110); Lipase 35 U/L (23-300); Magnesium 1.5 mg/dL (1.6-2.3); Phosphorus 3.1 mg/dL (2.5-4.5); Potassium 5.4 mmol/L (3.4-5.0); Sodium 133 mmol/L (137-145)
[2024-04-02 00:24] LABS: Amphetamine Screen Urine Negative (Negative); Cannabinoid Screen Urine Negative (Negative); Cocaine Screen Urine Negative (Negative); Methadone Screen Urine Negative (Negative); Phencyclidine Screen Urine Negative (Negative)
[2024-04-02 01:00] LABS: Opiate Screen Urine Negative (Negative)
[2024-04-02] MEDS: MAGNESIUM SULF 2 GM/WATER 50ML 2 GM/50 ML BAG IVPB (01:20)
[2024-04-02 02:00] LABS: Reflex Lactic Acid Yes or No Add Lactic
[2024-04-02] MEDS: metroNIDAZOLE 500 MG/ISO 100ML 500 MG/100 ML BAG 100 MG IVPB ×3 (03:18→21:02)
[2024-04-02 04:18] LABS: Lactic Acid 1.2 mmol/L (0.7-2.0)
[2024-04-02] MEDS: LACTATED RINGERS 1,000 ML 100 ML IV CONT (04:51)
--- NOTE | 2024-04-02 06:41 | ADMGEN ---
This patient, Maria Long, was admitted to [facility] Room 317-02. Patient/family oriented to hospital policies and general routines including ID bracelet, bed and alarms, visiting hours, pain management, procedures, bathroom and other care routines, personal items, smoking policy, room service/diet, and visiting hours. Information on how to activate the Rapid Response Team has been discussed. Patient/Family are encouraged to report perceived risks to care and to ask questions if they do not understand what they are told or what they should do.
[2024-04-02 07:47] LABS: Glucose Point of Care 313 mg/dl (65-105)
--- NOTE | 2024-04-02 08:27 | PM.IMHP ---
H&P: HPI History of Present Illness Date/Time: 04/02/24 08:27 Chief Complaint: Weakness Narrative: 63yo female with hx of CVAs and DM here for weakness. She was seen at [place] ED 03/23/24 after a fall and was found to have a right humerus fracture. Patient is alert and oriented. She normally walks with a walker. Her CVA has resulted in diffuse weakness. She has not seen a provider since being in the ED. She has poor appetite but no bad pain, nausea, vomiting or diarrhea. She denied headache, vision changes, hearing changes, odynophagia or dysphagia. She denies fever or chills. She has been having dry mouth and developed right pre-auricular pain past few days. No CP, SOB or cough. No dysuria or hematuria but with mild urine frequency. She denies hx of GI bleeds, HLD, thyroid dz, CAD or seizures. She rarely checks her glucose at home. She is not on medications for DM. She believes that she has had COVID vaccine this year. She quit tobacco 1 month ago. She has been getting weaker to the point family was concerned and brought her in to the ED for evaluation. In the ED, she was hemodynamically stable. Heart rate elevated to 110. Afebrile and was not hypoxic. WBC 18.6K and was anemic with Hgb 8.6. Stool guaiac was negative in the ED but she was noted to have right shoulder and upper chest bruising. INR 1.2 with mildly elevated PT and PTT. Sodium was 133 with potassium 5.4. BUN 67 with Cr 1.8. Glucose 454 but no acidosis and normal gap. Lactic 2.9 that normalized on repeat. Mag level slightly low at 1.5. LFTs normal except for an albumin of 2.5. TSH and lipase normal. UA was consistent with UTI except for moderate squamous cells. Alcohol level negative. UDS negative. Influenza and RSV negative but she was COVID positive. Humerus xray showing comminuted 3 part fracture of the proximal right humerus. Head CT showing old CVAs right occipital, bilateral basal ganglia, right internal capsule and right thalamus. Also noted was right parotiditis. CT cervical spine showing no fracture but with right parotiditis and mild reactive adenopathy. CT chest showing small pericardial effusion and right humerus fracture. CT abd/pelvis showing cystitis and thrombus in LV apex of the heart. EKG showing sinus tach (100), LAD and possible old anteroseptal FL. She was given acetaminophen, IV fluid bolus for sepsis and started on Rocephin/Flagyl. Mag was replaced. This morning, noted patient had a CT Abdomen showing LV thrombus. Repeat labs ordered and Heparin drip ordered as well. Patient had an episode of emesis of bilious emesis this morning. Hgb this morning was 6.0. Cr 1.8 with BUN 82 now. Albumin was 2.0. Review of Systems Review of Systems: All systems reviewed & are unremarkable except as noted in HPI and below [facility] Past Medical History Medical History (Updated 04/02/24 @ 10:02 by Gerardo Fonseca MD) Stage 3a chronic kidney disease (CKD) Diabetes mellitus Smoker Right thalamic infarction Stroke Surgical History Surgical History (Updated 04/02/24 @ 09:29 by Gerardo Fonseca MD) No history of previous surgery Family History Family History Sibling Breast cancer Father Acute myocardial infarction Congestive heart failure Sibling Acute myocardial infarction Social History Social History (Updated 04/02/24 @ 13:33 by Gerardo Fonseca MD) Social History: Smoked <1ppd x 47yrs. No alcohol or drug use. Lives at home with her . They have a dog Code status - Full Surrogate decision maker - Smoking packs per day: 0.10 Smoking cigarettes per day: 2.0 Years smoked: 40 Smoking pack-years: 4.00 Smoking status: Never smoker Tobacco type: cigarettes Additional smoking assessment comments: PT STARTED AGE 17, STOPPED 5YRS AGO, BUT HAS RESTARTED Alcohol intake: former Drinks per week: 1 Substance use: never Do You Feel Safe in your Home?: Yes Lack of Transportation: YES Lack of Food: Sometimes True Current Housing: I Have Housing Concerned About Future Housing: No Difficulty Paying Gas/Electric Bills: No Difficulty Paying for Meds: YES Currently Unemployed: No Education: Don't Know Difficulty w/ Childcare or Family Care: No Spiritual care concerns: No Meds Home Medications and Allergies Home Medications ?Medication ?Instructions ?Recorded ?Confirmed ?Type aspirin 81 mg chewable tablet 1 tablet PO DAILY 10/28/22 04/02/24 History atorvastatin 40 mg tablet 40 mg PO DAILY 10/28/22 04/02/24 History clotrimazole 1 % topical cream 1 applic topical BID PRN Rash 10/28/22 04/02/24 History clopidogrel 75 mg tablet 75 mg PO QAM 90 days #90 tabs 07/21/23 04/02/24 Rx insulin glargine 100 unit/mL (3 20 unit (0.2 mL) subcut HS #15 mL 07/21/23 04/02/24 Rx mL) subcutaneous pen (Lantus Solostar U-100 Insulin) Allergies Allergy/AdvReac Type Severity Reaction Status Date / Time No Known Allergies Allergy Verified 04/02/24 06:59 Vital Signs Vital Signs - 24 hr 04/01/24 20:50 04/01/24 20:50 04/01/24 22:21 Temperature 98.2 F Pulse Rate 110 H 101 H 103 H Respiratory Rate 18 18 Blood Pressure 119/48 L 80/66 L Pulse Oximetry 99 100 Oxygen Delivery Room Air 04/01/24 22:52 04/02/24 00:47 04/02/24 02:15 Temperature Pulse Rate 103 H 99 101 H Respiratory Rate 18 18 18 Blood Pressure 110/58 L 105/57 L 127/61 Pulse Oximetry 100 99 99 Oxygen Delivery 04/02/24 04:11 04/02/24 05:19 04/02/24 06:00 Temperature 97.6 F Pulse Rate 91 99 98 Respiratory Rate 18 18 22 H Blood Pressure 105/73 111/67 126/87 Pulse Oximetry 98 99 100 Oxygen Delivery 04/02/24 08:14 Temperature Pulse Rate Respiratory Rate Blood Pressure Pulse Oximetry 100 Oxygen Delivery Room Air Exam Narrative: AF 97.6 126/87 98 22 100% ra Gen - ill appearing female in no acute respiratory distress who is nontoxic-appearing lying semi recumbent in bed HEENT - normocephalic. Atraumatic. Pupils equal round and reactive. Extraocular motions intact. Sclera clear and anicteric but with small amount of purulent material right medial canthus. Nares patent. Oropharynx was poorly visualized. Dry mucous membranes with bilious phlegm noted in the oral cavity. Tongue was midline. Right parotid sweling and tenderness. Neck - neck was supple. Prominent right sided neck edema. 2+ carotid upstrokes without bruits. Chest - left basilar crackles o/w clear. Right breast is enlarged compared to left (patient states this is chronic) and is ecchymotic but no masses of hematoma. CV - heart was regular rate and rhythm. S1-S2. No murmurs gallops or rubs. Abd - abdomen was soft. Nontender. Nondistended. Positive bowel sounds. No organomegaly or masses. - Green secured draining dark yellow urine Ext - no clubbing, cyanosis or edema. 2+ DP pulses bilaterally. Neuro - patient is alert and oriented x4. Strength is 4+/5 in both upper and lower extremities. Cranial nerves 2-12 are intact. Speech is clear. Psych - normal mood and affect. Patient appears ill Skin - warm and dry. No rashes noted but with healing thin linar excoriations right shoulder, posterior neck and shins H&P: Results Labs Labs: Short CBC 04/01/24 Range/Units 22:53 WBC 18.6 H (4.5-10.0) K/mm3 Hgb 8.6 L D (12.0-15.0) g/dL Hct 27.6 L (37.0-47.0) % Plt Count 440 H D (150-375) k/mm3 BMP 04/01/24 22:53 Sodium 133 L Potassium 5.4 H Chloride 104 Carbon Dioxide 24 BUN 67 H D Creatinine 1.80 H Glucose 454 H Calcium 8.4 Liver Function 04/01/24 Range/Units 22:53 Total Bilirubin 0.5 (0.2-1.3) mg/dL AST 31 (14-36) U/L ALT 11 (6-35) U/L Alkaline Phosphatase 116 (38-126) U/L Albumin 2.5 L (3.5-5.1) g/dL Urine 04/01/24 Range/Units 22:53 Urine Color [place] H (Yellow) Urine Appearance Turbid H (Clear) Urine pH 5.0 (5.0-9.0) Ur Specific [place] 1.022 (1.001-1.035) Urine Protein 4+ H (Negative) mg/dL Urine Glucose (UA) 3+ H (Negative) mg/dL Assessment and Plan Assessment and plan (1) Sepsis: Code(s): A41.9 - Sepsis, unspecified organism Status: Acute Assessment and Plan: Patient presents with weakness and found to have sepsis with tachycardia, leukocytisis and elevated lactic. She received appropriate IV fluids in ED. Source is COVID, UTI and parotiditis. Started on Rocephin and Flagyl after Cx collected. May have conjunctivitis but sclera clear so this may be coming from the tear duct. WBC better today. No Fevers. Follow on culture results (2) Anemia: Code(s): D64.9 - Anemia, unspecified Status: Acute Assessment and Plan: Hgb low on admission at 8.6. Hgb was 12 in July. She does take ASA but not Plavix at home. Suspect anemia is from recent fracture and noted ecchymosis. Stool guaiac negative by ED exam. She is now having bilious emesis but not felt to be coffee ground. Hgb today dropped to 6.0. Could be acute blood loss and/or Hgb drop from IV fluids. Will add PPI for possible gastric source. Iron studies and B12/folate ordered. Transfuse. Trend HH and transfuse to a stable Hgb. request old records from recent ED visit (3) LV (left ventricular) mural thrombus: Code(s): I51.3 - Intracardiac thrombosis, not elsewhere classified Status: Acute Assessment and Plan: CT Abd showing a LV thrombus. No hx of CAD or signs of CHF to suggest poor LV function. Echo in July 2023 showing normal LV systolic function with EF 55-60% and grade I diastolic dysfxn. Heparin drip ordered but now on hold for anemia Echo ordered. Consider anticoagulation once HH stable. (4) Acute parotitis: Code(s): K11.21 - Acute sialoadenitis Status: Acute Assessment and Plan: Imaging and exam confirm right parotiditis. Started on Rocephin and Flagyl. Monitor for clinical improvement. Lemon drops. (5) UTI (urinary tract infection): Code(s): N39.0 - Urinary tract infection, site not specified Status: Acute Assessment and Plan: UA is consistent with UTI except for moderate squamous cells and relatively asymptomatic. UCx collected. CT scan showing bladder wall thickening c/w cystitis. Rocephin started. Green placed. UCx pending. Follow up on UCx results. (6) COVID: Code(s): U07.1 - COVID-19 Status: Acute Assessment and Plan: Patient found to have COVID. She believes she received the COVID vaccine. CT chest showing mild atelectasis. Remains on room air so will monitor and provide supportive care (7) Fracture, humerus closed: Code(s): S42.309A - Unspecified fracture of shaft of humerus, unspecified arm, initial encounter for closed fracture Status: Acute Assessment and Plan: Patient with known right humerus fracture that is in 3 parts. This is associated with blood loss and bruising. Place in sling. No BP in right arm Ortho consult. (8) Diabetes mellitus: Code(s): E11.9 - Type 2 diabetes mellitus without complications Status: Acute Assessment and Plan: Patient with DM and is poorly controlled here. She does not take her insulin at home and rarely checks her glucose. Start AccuCheks covering with sliding scale. Hypoglycemia protocol will be available as needed. Check A1c and TSH (9) Hx of completed stroke: Code(s): Z86.73 - Personal history of transient ischemic attack (TIA), and cerebral infarction without residual deficits Status: Acute Assessment and Plan: Head CT showing old CVAs right occipital, bilateral basal ganglia, right internal capsule and right thalamus. She is on ASA but not on Plavix or lipitor at home Resume ASA when able. Restart lipitor. (10) Smoker: Code(s): F17.200 - Nicotine dependence, unspecified, uncomplicated Status: Acute Assessment and Plan: Patient was congratulated on stopping smoking. (11) Stage 3a chronic kidney disease (CKD): Code(s): N18.31 - Chronic kidney disease, stage 3a Status: Acute Assessment and Plan: Cr normal in 2022 but was 1.2-1.8 range when hospitalized in July for CVA. [place] she had an acute component at that time possible contrast induced nephropathy. Here, Cr 1.8 and BUN 67. Cr unchanged but BUN now 82. Related to occult GI bleed? CKD probably related to DM. CT Abd/pelvis showing cortical thinning of the kidneys and a 6.3cm right renal cyst. There is gas in the bladder and left kidny likely form instrumentation. UA noted and UCx pending. ROCIO could be related to UTI, parotiditis, anemia, COVID Given IV fluids which will continue for now. Check urine studies. Plan DVT prophylaxis - SCDs Code status - Full Hospitalist [facility] Advance Care Plan I have confirmed that the patient's Advanced Care Plan is present, code status is documented, or surrogate decision maker is listed in patient medical record.: Yes Medication Reconciliation I have utilized all available resources to obtain, update and review the patients current medications (includes all prescriptions, OTC, herbals, cannabis, and nutritional supplements).: Yes
[2024-04-02 08:33] LABS: Basophils Absolute Auto 0.1 K/mm3 (0.0-0.1); Basophils Percent Auto 0.3 % (0.2-1.2); Eosinophils Absolute Auto 0.4 K/mm3 (0-0.3); Eosinophils Percent Auto 2.5 % (0-4.4); Immature Granulocyte Absolute 0.11 K/mm3 (0.00-0.031); Immature Granulocyte Percent A 0.7 % (0-0.5); Lymphocytes Absolute Auto 3.28 K/mm3 (0.9-3.2); Lymphocytes Percent Auto 20.3 % (18.3-44.2); Mean Corpuscular HGB Conc 31.6 g/dl (32-36); Mean Corpuscular Hemoglobin 29.6 pg (26-34); Mean Corpuscular Volume 93.6 fl (80-100); Mean Platelet Volume 9.6 fl (7.4-10.4); Neutrophils Absolute Auto 11.3 K/mm3 (1.3-6.7); Neutrophils Percent Auto 70.2 % (45.5-73.1); Platelet Count Result 371 k/mm3 (150-375); Red Blood Count 2.03 M/mm3 (4.2-5.4); Red Cell Distribution Width 12.4 % (11.5-14.5); White Blood Count 16.2 K/mm3 (4.5-10.0)
[2024-04-02 08:44] LABS: Iron 76 ug/dL (37-170)
[2024-04-02 08:47] LABS: INR 1.3; Prothrombin Time 16.7 Seconds (11.1-14.7)
[2024-04-02 08:48] LABS: Partial Thromboplastin Time 38.7 Seconds (22.3-36.8)
[2024-04-02 08:50] LABS: Anisocytosis 1+; Platelet Estimate Adequate (Adequate); Schistocytes None Seen
[2024-04-02 08:53] LABS: Percent Iron Saturation 46 % (20-50); TOTAL IRON BINDING CAPACITY 166 ug/dL (261-462)
[2024-04-02 08:54] LABS: Alanine Aminotransferase 7 U/L (6-35); Alkaline Phosphatase 84 U/L (38-126); Anion Gap 3 mmol/L (4-12); Aspartate Amino Transferase 13 U/L (14-36); Bilirubin,Total 0.3 mg/dL (0.2-1.3); Blood Urea Nitrogen 82 mg/dL (7-17); Calcium 7.7 mg/dL (8.4-10.2); Carbon Dioxide 20 mmol/L (22-30); Chloride 111 mmol/L (98-107); Estimated CRCL calculation 37 ml/min; Estimated Glomerular Filt Rate 28; Glucose 376 mg/dL (65-110); Magnesium 1.8 mg/dL (1.6-2.3); Phosphorus 2.7 mg/dL (2.5-4.5); Potassium 4.8 mmol/L (3.4-5.0); Sodium 134 mmol/L (137-145)
[2024-04-02 09:22] LABS: Procalcitonin 0.7 ng/mL
[2024-04-02 10:38] LABS: Creatine Kinase 44 U/L (30-135)
[2024-04-02 10:58] LABS: Creatinine Urine 66.6 mg/dL; Urea Random Urine 595 MG/DL
[2024-04-02 11:02] LABS: Sodium Urine Random 25 meq/L
[2024-04-02 11:10] LABS: Eosinophil Urine 1 % (None Seen)
[2024-04-02 11:11] LABS: Urine Eos QC 2nd Tech Confirmed
[2024-04-02 11:59] LABS: Hemoglobin A1C 12.6 % (<5.7)
[2024-04-02 12:09] LABS: Glucose Point of Care 315 mg/dl (65-105)
[2024-04-02] MEDS: INSULIN ASPART (*BKC) 100 UNITS/ML SUB-Q ×2 (12:29→17:10)
[2024-04-02] MEDS: ONDANSETRON INJ 4 MG/2 ML VIAL IV PUSH (12:29)
[2024-04-02] MEDS: PANTOPRAZOLE SODIUM IV 40 MG VIAL IV PUSH ×2 (12:30→21:02)
[2024-04-02] MEDS: HYDROcodone/acetaminophen (*CRX) 5-325 MG TABLET 1 TAB PO ×2 (12:30→21:00)
--- NOTE | 2024-04-02 13:57 | PM.CNOR ---
Assessment and Plan Assessment and plan (1) Fracture of proximal end of right humerus: Qualifiers: Encounter type: initial encounter Fracture type: closed Fracture morphology: other fracture Fracture alignment: displaced Qualified Code(s): S42.291A - Other displaced fracture of upper end of right humerus, initial encounter for closed fracture Code(s): S42.201A - Unspecified fracture of upper end of right humerus, initial encounter for closed fracture Status: Acute Assessment and Plan: Displaced surgical neck fracture with extension into the greater tuberosity. Subacute presentation after a fall several weeks ago. Multiple medical comorbidities. Currently septic. Poor surgical candidate. I recommend non-operative treatment. Although she may have a reasonable clinical outcome, significant weakness and stiffness is expected. Risks associated with the fracture include malunion, nonunion, stiffness, and arthritis. She may begin to use the arm and perform therapy as tolerated. She may use a sling for comfort only. History of Present Illness HPI Consult date: 04/02/24 Chief complaint: UTI Narrative: 63-year-old patient with sepsis and multiple medical comorbidities fell 1 month ago. Suffered a proximal humerus fracture, treated in [place]. Now with UTI and sepsis. Review of Systems Review of Systems: ROS unobtainable: Yes unobtainable due to medical condition [facility] Past Medical History Medical History Stage 3a chronic kidney disease (CKD) Diabetes mellitus Smoker Right thalamic infarction Stroke Surgical History Surgical History No history of previous surgery Family History Family History Sibling Breast cancer Father Acute myocardial infarction Congestive heart failure Sibling Acute myocardial infarction Social History Social History Social History: Smoked <1ppd x 47yrs. No alcohol or drug use. Lives at home with her . They have a dog Code status - Full Surrogate decision maker - Smoking packs per day: 0.10 Smoking cigarettes per day: 2.0 Years smoked: 40 Smoking pack-years: 4.00 Smoking status: Never smoker Tobacco type: cigarettes Additional smoking assessment comments: PT STARTED AGE 17, STOPPED 5YRS AGO, BUT HAS RESTARTED Alcohol intake: former Drinks per week: 1 Substance use: never Do You Feel Safe in your Home?: Yes Lack of Transportation: YES Lack of Food: Sometimes True Current Housing: I Have Housing Concerned About Future Housing: No Difficulty Paying Gas/Electric Bills: No Difficulty Paying for Meds: YES Currently Unemployed: No Education: Don't Know Difficulty w/ Childcare or Family Care: No Spiritual care concerns: No Meds Home Medications and Allergies Home Medications ?Medication ?Instructions ?Recorded ?Confirmed ?Type aspirin 81 mg chewable tablet 1 tablet PO DAILY 10/28/22 04/02/24 History atorvastatin 40 mg tablet 40 mg PO DAILY 10/28/22 04/02/24 History clotrimazole 1 % topical cream 1 applic topical BID PRN Rash 10/28/22 04/02/24 History clopidogrel 75 mg tablet 75 mg PO QAM 90 days #90 tabs 07/21/23 04/02/24 Rx insulin glargine 100 unit/mL (3 20 unit (0.2 mL) subcut HS #15 mL 07/21/23 04/02/24 Rx mL) subcutaneous pen (Lantus Solostar U-100 Insulin) Allergies Allergy/AdvReac Type Severity Reaction Status Date / Time No Known Allergies Allergy Verified 04/02/24 06:59 Vital Signs Vital Signs - 24 hr 04/01/24 20:50 04/01/24 20:50 04/01/24 22:21 Temperature 36.8 C Pulse Rate 110 H 101 H 103 H Respiratory Rate 18 18 Blood Pressure 119/48 L 80/66 L Pulse Oximetry 99 100 Oxygen Delivery Room Air 04/01/24 22:52 04/02/24 00:47 04/02/24 02:15 Temperature Pulse Rate 103 H 99 101 H Respiratory Rate 18 18 18 Blood Pressure 110/58 L 105/57 L 127/61 Pulse Oximetry 100 99 99 Oxygen Delivery 04/02/24 04:11 04/02/24 05:19 04/02/24 06:00 Temperature 36.4 C Pulse Rate 91 99 98 Respiratory Rate 18 18 22 H Blood Pressure 105/73 111/67 126/87 Pulse Oximetry 98 99 100 Oxygen Delivery 04/02/24 08:00 04/02/24 08:14 04/02/24 08:50 Temperature 36.4 C Pulse Rate 102 H 98 Respiratory Rate 20 22 H Blood Pressure 107/65 126/87 Pulse Oximetry 98 100 100 Oxygen Delivery Room Air Room Air 04/02/24 11:10 04/02/24 11:25 04/02/24 12:25 Temperature 37.0 C 36.3 C L 36.2 C L Pulse Rate 94 88 88 Respiratory Rate 16 14 14 Blood Pressure 105/46 L 108/50 L 106/58 L Pulse Oximetry 95 94 100 Oxygen Delivery 04/02/24 13:27 04/02/24 13:42 Temperature 36.2 C L 36.5 C Pulse Rate 93 68 Respiratory Rate 16 16 Blood Pressure 106/31 L 108/48 L Pulse Oximetry 99 Oxygen Delivery Exam Narrative: Somnolent. Poorly responsive. Right shoulder without obvious clinical deformity. Fires deltoid. Good wind development director strength. Wiggles hands. Mild upper extremity edema. Skin with diffuse excoriations about the shoulder. No warmth erythema. No obvious effusion. Results Labs 04/02/24 08:25 04/02/24 08:25 Labs: Abnormal lab results 04/01/24 04/01/24 04/01/24 Range/Units 22:16 22:53 23:09 WBC 18.6 H (4.5-10.0) K/mm3 RBC 2.93 L (4.2-5.4) M/mm3 Hgb 8.6 L D (12.0-15.0) g/dL Hct 27.6 L (37.0-47.0) % MCHC 31.2 L (32-36) g/dl Plt Count 440 H D (150-375) k/mm3 Immature Gran % (Auto) 0.6 H (0-0.5) % Neut % (Auto) 81.4 H (45.5-73.1) % Lymph % (Auto) 12.3 L (18.3-44.2) % Lymph # (Auto) (0.9-3.2) K/mm3 [place] # (Auto) 0.8 H (0.1-0.6) K/mm3 Eos # (Auto) (0-0.3) K/mm3 Abs Immat Gran (auto) 0.12 H (0.00-0.031) K/mm3 Absolute Neuts (auto) 15.1 H (1.3-6.7) K/mm3 PT 15.7 H (11.1-14.7) Seconds APTT 38.6 H (22.3-36.8) Seconds Sodium 133 L (137-145) mmol/L Potassium 5.4 H (3.4-5.0) mmol/L Chloride (98-107) mmol/L Carbon Dioxide (22-30) mmol/L Anion Gap (4-12) mmol/L BUN 67 H D (7-17) mg/dL Creatinine 1.80 H (0.7-1.0) mg/dL Estimated GFR 28 L (59 - ) Glucose 454 H (65-110) mg/dL POC Capillary Glucose 485 H (65-105) mg/dl Hemoglobin A1c (<5.7) % Lactic Acid 2.9 H (0.7-2.0) mmol/L Calcium (8.4-10.2) mg/dL Magnesium 1.5 L (1.6-2.3) mg/dL TIBC (261-462) ug/dL AST (14-36) U/L Total Protein (6.3-8.2) g/dL Albumin 2.5 L (3.5-5.1) g/dL Urine Color [place] H (Yellow) Urine Appearance Turbid H (Clear) Urine Protein 4+ H (Negative) mg/dL Urine Glucose (UA) 3+ H (Negative) mg/dL Ur Blood (Man) 3+ H (Negative) Urine Bilirubin 2+ H (Negative) Leukocyte Esterase Rfl 3+ H (Negative) BRITTNEY/UL Urine RBC >100 H (0-2) /hpf Urine WBC >100 H (0-3) /hpf Urine Bacteria 4+ H /hpf SARS-CoV-2 RNA (RT-PCR) Positive A (Negative) Crossmatch 04/02/24 04/02/24 04/02/24 Range/Units 03:33 07:44 08:25 WBC 16.2 H (4.5-10.0) K/mm3 RBC 2.03 L (4.2-5.4) M/mm3 Hgb 6.0 L* (12.0-15.0) g/dL Hct 19.0 L* (37.0-47.0) % MCHC 31.6 L (32-36) g/dl Plt Count (150-375) k/mm3 Immature Gran % (Auto) 0.7 H (0-0.5) % Neut % (Auto) (45.5-73.1) % Lymph % (Auto) (18.3-44.2) % Lymph # (Auto) 3.28 H (0.9-3.2) K/mm3 [place] # (Auto) 1.0 H (0.1-0.6) K/mm3 Eos # (Auto) 0.4 H (0-0.3) K/mm3 Abs Immat Gran (auto) 0.11 H (0.00-0.031) K/mm3 Absolute Neuts (auto) 11.3 H (1.3-6.7) K/mm3 PT 16.7 H (11.1-14.7) Seconds APTT 38.7 H (22.3-36.8) Seconds Sodium 134 L (137-145) mmol/L Potassium (3.4-5.0) mmol/L Chloride 111 H (98-107) mmol/L Carbon Dioxide 20 L (22-30) mmol/L Anion Gap 3 L (4-12) mmol/L BUN 82 H D (7-17) mg/dL Creatinine 1.80 H (0.7-1.0) mg/dL Estimated GFR 28 L (59 - ) Glucose 376 H (65-110) mg/dL POC Capillary Glucose 313 H (65-105) mg/dl Hemoglobin A1c 12.6 H (<5.7) % Lactic Acid (0.7-2.0) mmol/L Calcium 7.7 L (8.4-10.2) mg/dL Magnesium (1.6-2.3) mg/dL TIBC 166 L (261-462) ug/dL AST 13 L (14-36) U/L Total Protein 6.0 L (6.3-8.2) g/dL Albumin 2.0 L (3.5-5.1) g/dL Urine Color (Yellow) Urine Appearance (Clear) Urine Protein (Negative) mg/dL Urine Glucose (UA) (Negative) mg/dL Ur Blood (Man) (Negative) Urine Bilirubin (Negative) Leukocyte Esterase Rfl (Negative) BRITTNEY/UL Urine RBC (0-2) /hpf Urine WBC (0-3) /hpf Urine Bacteria /hpf SARS-CoV-2 RNA (RT-PCR) (Negative) Crossmatch See Detail 04/02/24 Range/Units 12:07 WBC (4.5-10.0) K/mm3 RBC (4.2-5.4) M/mm3 Hgb (12.0-15.0) g/dL Hct (37.0-47.0) % MCHC (32-36) g/dl Plt Count (150-375) k/mm3 Immature Gran % (Auto) (0-0.5) % Neut % (Auto) (45.5-73.1) % Lymph % (Auto) (18.3-44.2) % Lymph # (Auto) (0.9-3.2) K/mm3 [place] # (Auto) (0.1-0.6) K/mm3 Eos # (Auto) (0-0.3) K/mm3 Abs Immat Gran (auto) (0.00-0.031) K/mm3 Absolute Neuts (auto) (1.3-6.7) K/mm3 PT (11.1-14.7) Seconds APTT (22.3-36.8) Seconds Sodium (137-145) mmol/L Potassium (3.4-5.0) mmol/L Chloride (98-107) mmol/L Carbon Dioxide (22-30) mmol/L Anion Gap (4-12) mmol/L BUN (7-17) mg/dL Creatinine (0.7-1.0) mg/dL Estimated GFR (59 - ) Glucose (65-110) mg/dL POC Capillary Glucose 315 H (65-105) mg/dl Hemoglobin A1c (<5.7) % Lactic Acid (0.7-2.0) mmol/L Calcium (8.4-10.2) mg/dL Magnesium (1.6-2.3) mg/dL TIBC (261-462) ug/dL AST (14-36) U/L Total Protein (6.3-8.2) g/dL Albumin (3.5-5.1) g/dL Urine Color (Yellow) Urine Appearance (Clear) Urine Protein (Negative) mg/dL Urine Glucose (UA) (Negative) mg/dL Ur Blood (Man) (Negative) Urine Bilirubin (Negative) Leukocyte Esterase Rfl (Negative) BRITTNEY/UL Urine RBC (0-2) /hpf Urine WBC (0-3) /hpf Urine Bacteria /hpf SARS-CoV-2 RNA (RT-PCR) (Negative) Crossmatch H & H 04/01/24 04/02/24 Range/Units 22:53 08:25 Hgb 8.6 L D 6.0 L* (12.0-15.0) g/dL Hct 27.6 L 19.0 L* (37.0-47.0) % Coagulation 04/01/24 04/02/24 Range/Units 22:53 08:25 INR 1.2 1.3 All other labs normal.
[2024-04-02 14:18] LABS: Folic Acid 3.5 ng/mL (2.76->20)
[2024-04-02] MEDS: SODIUM CHLORIDE 0.9% IV 250 ML 30 ML IV CONT (17:10)
[2024-04-02 17:54] LABS: Glucose Point of Care 372 mg/dl (65-105)
[2024-04-02 19:06] LABS: Hematocrit 23.7 % (37.0-47.0); Hemoglobin 7.8 g/dL (12.0-15.0)
[2024-04-02 20:56] LABS: Glucose Point of Care 233 mg/dl (65-105)
[2024-04-02] MEDS: INSULIN GLARGINE (*BKC) 100 UNITS/ML 16 UNITS SUB-Q (20:57)
[2024-04-03] MEDS: HYDROcodone/acetaminophen (*CRX) 5-325 MG TABLET 1 TAB PO ×3 (03:45→18:08)
[2024-04-03 04:42] VITALS: BP 88/52; PULSE 88; RESP 18; TEMP 36.2; O2SAT 94
[2024-04-03] MEDS: metroNIDAZOLE 500 MG/ISO 100ML 500 MG/100 ML BAG 100 MG IVPB ×3 (05:00→22:43)
[2024-04-03 06:41] LABS: Basophils Absolute Auto 0.1 K/mm3 (0.0-0.1); Basophils Percent Auto 0.4 % (0.2-1.2); Eosinophils Percent Auto 5.2 % (0-4.4); Hematocrit 23.8 % (37.0-47.0); Hemoglobin 7.6 g/dL (12.0-15.0); Immature Granulocyte Absolute 0.09 K/mm3 (0.00-0.031); Immature Granulocyte Percent A 0.5 % (0-0.5); Lymphocytes Absolute Auto 3.82 K/mm3 (0.9-3.2); Lymphocytes Percent Auto 20.4 % (18.3-44.2); Mean Corpuscular HGB Conc 31.9 g/dl (32-36); Mean Corpuscular Hemoglobin 29.7 pg (26-34); Mean Platelet Volume 9.6 fl (7.4-10.4); Monocytes Absolute Auto 0.9 K/mm3 (0.1-0.6); Monocytes Percent Auto 4.7 % (2.6-8.5); Neutrophils Absolute Auto 12.8 K/mm3 (1.3-6.7); Neutrophils Percent Auto 68.8 % (45.5-73.1); Platelet Count Result 351 k/mm3 (150-375); Red Blood Count 2.56 M/mm3 (4.2-5.4); Red Cell Distribution Width 13.9 % (11.5-14.5); White Blood Count 18.7 K/mm3 (4.5-10.0)
[2024-04-03 06:42] VITALS: BP 113/52
[2024-04-03 07:01] LABS: Alanine Aminotransferase 9 U/L (6-35); Albumin Level 2.2 g/dL (3.5-5.1); Alkaline Phosphatase 88 U/L (38-126); Anion Gap 7 mmol/L (4-12); Aspartate Amino Transferase 20 U/L (14-36); Bilirubin,Total 0.3 mg/dL (0.2-1.3); Blood Urea Nitrogen 92 mg/dL (7-17); Calcium 8.5 mg/dL (8.4-10.2); Carbon Dioxide 17 mmol/L (22-30); Chloride 115 mmol/L (98-107); Estimated CRCL calculation 32 ml/min; Estimated Glomerular Filt Rate 24; Glucose 144 mg/dL (65-110); Magnesium 1.9 mg/dL (1.6-2.3); Phosphorus 3.1 mg/dL (2.5-4.5); Potassium 4.2 mmol/L (3.4-5.0); Sodium 139 mmol/L (137-145)
[2024-04-03 08:00] VITALS: PULSE 88; RESP 18; O2SAT 94
[2024-04-03 08:13] LABS: Glucose Point of Care 142 mg/dl (65-105)
[2024-04-03] MEDS: INSULIN ASPART (*BKC) 100 UNITS/ML SUB-Q ×5 (08:58→18:10)
[2024-04-03] MEDS: PANTOPRAZOLE SODIUM IV 40 MG VIAL IV PUSH ×2 (08:59→22:42)
[2024-04-03] MEDS: SODIUM CHLORIDE 0.9% IV 1,000 ML 100 ML IV CONT ×2 (08:59→18:30)
[2024-04-03] MEDS: ATORVASTATIN 40 MG TABLET PO (08:59)
[2024-04-03] MEDS: ONDANSETRON INJ 4 MG/2 ML VIAL IV PUSH (10:47)
[2024-04-03 12:06] LABS: Glucose Point of Care 322 mg/dl (65-105)
--- NOTE | 2024-04-03 12:09 | PCSTNOTE ---
Please refer to the Bedside Swallow Evaluation in the EMR. Please note, silent aspiration cannot be ruled out at bedside. This 63 year old female patient was evaluated at bedside to ensure swallowing safety during oral intake. The pt was admitted d/t weakness. The pt has a hx of CVAs which has resulted in diffuse weakness. An oral motor exam was completed. The pt demonstrates appropriate range of mobility and strength for oral intake. The pt is edentulous but has dentures at home that she consistently wears during oral intake. Per LUTHER Verde, the pt got sick yesterday during oral intake with her tech and started coughing/spitting out water today when with Mehreen. Pt verbalized that she has not had trouble swallowing in the past, and she believes that she got sick and started coughing during previous events because she was eating/drinking to fast. Trials of thin liquid (water), mixed consistency (fruit cocktail), extremely thick liquid (pudding), and solids (fior cracker) were administered at bedside via cup edge, spoon, and straw. The pt was also observed taking a pill with a straw sip of water. Pt is right handed and has multiple broken bones in her right arm, so it is recommended that the pt have 1:1 supervision and assistance during meals. Throughout all trials of different consistencies, the pt demonstrated no s/s of aspiration. The pt?s vocal quality remained clear after all trials and the pt did not cough/throat clear. Oral transit was timely. No oral residue observed. Laryngeal elevation was adequate and timely for all swallows. Please note that silent aspiration cannot be ruled out at bedside. Given the results of this assessment, it is recommended this pt receive an oral diet of regular solids (IDDSI Level 7) and thin liquids (IDDSI Level 1). It is additionally recommended that the pt follow these standard swallowing precautions: Small bites/sips, slow down the pace of oral intake, sit upright during meals, and alternate solids/liquids with 1:1 supervision during meals. No further ST is warranted at this time. Thank you for this referral. Dr. Fonseca and LUTHER Verde were notified of BSE results and recommendations. Thank you for this referral.
--- NOTE | 2024-04-03 13:52 | PM.IMPN ---
Progress Note: A&P Assessment and Plan (1) Sepsis: Code(s): A41.9 - Sepsis, unspecified organism Status: Acute Assessment and Plan: Patient presents with weakness and found to have sepsis with tachycardia, leukocytisis and elevated lactic. She received appropriate IV fluids in ED. Source is COVID, UTI and parotiditis. Started on Rocephin and Flagyl after Cx collected. May have conjunctivitis but sclera clear so this may be coming from the tear duct. WBC worse today. No Fevers. Parotid exam worse. BCx NGTD. UCx growing EColi. Follow on culture results. Adjust abx now. (2) Anemia: Code(s): D64.9 - Anemia, unspecified Status: Acute Assessment and Plan: Hgb low on admission at 8.6. Hgb was 12 in July. She does take ASA but not Plavix at home. Suspect anemia is from recent fracture and noted ecchymosis. Stool guaiac negative by ED exam. She is now having bilious emesis but not felt to be coffee ground. Hgb dropped to 6.0 on 04/02 and transfused 2U PRBCs. Could be acute blood loss and/or Hgb drop from IV fluids. We added PPI for possible gastric source. Iron studies consistent with anemia of chronic disease. B12/folate normal Hgb only up to 7 range and stable on repeat. Trend HH and transfuse to a stable Hgb. (3) Acute parotitis: Code(s): K11.21 - Acute sialoadenitis Status: Acute Assessment and Plan: Imaging and exam confirm right parotiditis. Started on Rocephin and Flagyl. No fevers but WBC higher. Will advance Rocephin dose and add Vanco Requested family bring in Lemon drops. (4) Stage 3a chronic kidney disease (CKD): Code(s): N18.31 - Chronic kidney disease, stage 3a Status: Acute Assessment and Plan: Cr normal in 2022 but was 1.2-1.8 range when hospitalized in July for CVA. Conger she had an acute component at that time possible contrast induced nephropathy. Here, Cr 1.8 and BUN 67. Cr higher at 2.1 and BUN now 92. Related to occult GI bleed? CKD probably related to DM. ROCIO could be related to sepsis, UTI, parotiditis, anemia, COVID, HoTN CT Abd/pelvis showing cortical thinning of the kidneys and a 6.3cm right renal cyst. There is gas in the bladder and left kidney likely form instrumentation but consider pyelonephritis. UCx growing EColi. She was given IV fluids and fluid positive but UOP poor and BP soft. Continue IV fluids. Add Midodrine Follow renal function, electrolytes and UOP. (5) UTI (urinary tract infection): Code(s): N39.0 - Urinary tract infection, site not specified Status: Acute Assessment and Plan: UA is consistent with UTI except for moderate squamous cells and relatively asymptomatic. UCx collected. CT scan showing bladder wall thickening c/w cystitis. Rocephin started. Green placed. UCx growing EColi. Follow up on UCx results. (6) LV (left ventricular) mural thrombus: Code(s): I51.3 - Intracardiac thrombosis, not elsewhere classified Status: Acute Assessment and Plan: CT Abd showing a LV thrombus. No hx of CAD or signs of CHF to suggest poor LV function. Echo in July 2023 showing normal LV systolic function with EF 55-60% and grade I diastolic dysfxn. Heparin drip was ordered but held due to anemia (Heparin was never started). Echo this admission showing LV mildly enlarged with moderately reduced LV systolic fxn with EF 40-45% and diastolic dysfunction. No visualized thrombus in the LV by Echo. (7) COVID: Code(s): U07.1 - COVID-19 Status: Acute Assessment and Plan: Patient found to have COVID. She believes she received the COVID vaccine. CT chest showing mild atelectasis. Remains on room air so will monitor and provide supportive care (8) Fracture, humerus closed: Code(s): S42.309A - Unspecified fracture of shaft of humerus, unspecified arm, initial encounter for closed fracture Status: Inactive Assessment and Plan: Patient with known right humerus fracture that is in 3 parts. This is associated with blood loss and bruising. No BP in right arm. Use sling as needed Ortho consulted and apprecaite their input. (9) Diabetes mellitus: Code(s): E11.9 - Type 2 diabetes mellitus without complications Status: Acute Assessment and Plan: Patient with DM and is poorly controlled with A1c 12.6%. She does not take her insulin at home and rarely checks her glucose. The patient's blood glucose was reviewed on 04/03 Glucose better controlled. Continue AccuCheks covering with sliding scale. Hypoglycemia protocol available as needed. Continue Lantus and meal time Novolog. (10) Hx of completed stroke: Code(s): Z86.73 - Personal history of transient ischemic attack (TIA), and cerebral infarction without residual deficits Status: Acute Assessment and Plan: Head CT showing old CVAs right occipital, bilateral basal ganglia, right internal capsule and right thalamus. She is on ASA but not on Plavix or lipitor at home Resume ASA when able. Lipitor restarted. Bedside swallow was normal. Continue full liquid diet and advance as tolerated. (11) Smoker: Code(s): F17.200 - Nicotine dependence, unspecified, uncomplicated Status: Acute Assessment and Plan: Patient was congratulated on stopping smoking. Plan DVT prophylaxis - SCDs Code status - Full Subjective Date/time seen: 04/03/24 13:52 Interval history: 63yo female with hx of CVAs and DM here for weakness. Patient is 'itchy all over'. Having pain around her right ear but no change from yesterday. No n/v. No CP or SOB. No cough. Exam Narrative: AF 97.2 113/52 88 18 94% ra Gen - NARD HEENT - Right parotid swelling and tenderness with edema that tracts post-auricular Neck - neck was supple. Prominent right sided neck edema. Chest - lungs clear bilaterally. nml RR. bruising tracking into the medial left breast (RN present) CV - RRR S1/S2 Abd - soft. NT/ND - Green secured draining clear yellow urine Ext - no pedal edema. 2+ radial pulse Psych - normal mood and affect. Skin - excoriations right shoulder, posterior neck and up in to posterior hair line. no obvious bedbugs. no interdigital tunnels. small erythema noted in the groin c/w tinea Objective Data Vital Signs Vital Signs: Vital Signs - 24 hr 04/02/24 14:00 04/02/24 14:27 04/02/24 15:55 Temperature 97.3 F L 98.0 F 98.1 F Pulse Rate 90 68 88 Respiratory Rate 18 15 16 Blood Pressure 96/41 L 106/45 L 104/52 L Pulse Oximetry 97 100 Oxygen Delivery 04/02/24 16:00 04/02/24 20:00 04/02/24 20:07 Temperature 97.4 F L 97.3 F L Pulse Rate 86 86 Respiratory Rate 18 18 Blood Pressure 120/68 116/61 Pulse Oximetry 100 100 Oxygen Delivery Room Air 04/03/24 04:42 04/03/24 06:42 04/03/24 08:00 Temperature 97.2 F L Pulse Rate 88 88 Respiratory Rate 18 18 Blood Pressure 88/52 L 113/52 L Pulse Oximetry 94 94 Oxygen Delivery Room Air Intake/Output Intake/Output: Intake & Output 03/31/24 04/01/24 04/02/24 04/03/24 23:59 23:59 23:59 23:59 Intake Total 4100 440 Output Total 20 700 600 Balance -20 3400 -160 Meds/Results Medications: Active Medications Generic Name Dose Route Start Last Admin Trade Name Freq PRN Reason Stop Dose Admin Acetaminophen 650 mg 04/02/24 09:53 Acetaminophen 325 Mg Tablet PO Q6H PRN Mild Pain (1-5) Or Fever Hydrocodone Bitart/Acetaminophen 1 tab 04/02/24 09:53 04/03/24 10:46 Hydrocodone/Acetaminophen (*Crx) 5-325 Mg Tablet PO 1 tab Q6H PRN Administration Pain Rated 6 or Greater Atorvastatin Calcium 40 mg 04/03/24 09:00 04/03/24 08:59 Atorvastatin 40 Mg Tablet PO 40 mg DAILY PRERNA Administration Dextrose 12.5 gm 04/02/24 07:07 Dextrose 50% 25 Gm/50 Ml Syringe IV PUSH PRN PRN Hypoglycemia Protocol Glucagon 1 mg 04/02/24 07:07 Glucagon For Inj 1 Mg Vial IM PRN PRN Hypoglycemia Protocol Glucose 15 gm 04/02/24 07:07 Glucose Oral Gel 15 Gm Of Glucse In 37.5 Gm Tube PO PRN PRN Hypoglycemia Protocol Ceftriaxone Sodium 1 gm in 50 mls @ 100 mls/hr 04/03/24 00:00 04/03/24 00:00 Rocephin 1 Gm/Ns 50 Ml IVPB Infused Q24H PRERNA Infusion Metronidazole 500 mg in 100 mls @ 100 mls/hr 04/02/24 14:00 04/03/24 05:00 Flagyl 500 Mg/Iso Soln 100 Ml IVPB 100 mls/hr Q8HR PRERNA Administration Dextrose 1,000 mls @ 100 mls/hr 04/02/24 07:07 Dextrose 5% 1,000 Ml IVPB PRN PRN Hypoglycemia Protocol Sodium Chloride 1,000 mls @ 100 mls/hr 04/03/24 07:15 04/03/24 08:59 Normal Saline Iv IV CONT 100 mls/hr .Q10H PRERNA Administration Insulin Aspart 4 - 8 units 04/02/24 08:00 04/03/24 08:58 Insulin Aspart (*Bkc) 100 Units/Ml SUB-Q Not Given TIDWM [facility] Protocol Insulin Aspart 5 units 04/03/24 08:00 04/03/24 08:58 Insulin Aspart (*Bkc) 100 Units/Ml 0.05 units/kg (5 units) 5 units SUB-Q Administration TIDWM [facility] Insulin Glargine 16 units 04/02/24 21:00 04/02/24 20:57 Insulin Glargine (*Bkc) 100 Units/Ml 0.15 units/kg (16 units) 16 units SUB-Q Administration [facility] Ondansetron HCl 4 mg 04/02/24 09:53 04/03/24 10:47 Ondansetron Inj 4 Mg/2 Ml Vial IV PUSH 4 mg Q6H PRN Administration Nausea And Vomiting Pantoprazole Sodium 40 mg 04/02/24 09:00 04/03/24 08:59 Pantoprazole Sodium Iv 40 Mg Vial IV PUSH 40 mg Q12HR PRERNA Administration Perflutren Lipid Microsphere 0 ml 04/02/24 07:03 Perflutren Lipid Microspheres 1.5 Ml Vial Diluted To 10 Ml Total Volume IV PUSH 04/05/24 07:04 ONCE PRN adequate visualization Protocol Radiology Results: ITS Impressions Humerus X-Ray 04/01/24 21:37 IMPRESSION: 1. Comminuted three-part fracture of proximal right humerus. Head CT 04/01/24 21:47 IMPRESSION: 1. 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 2. Mild nonspecific cerebral white matter disease, which likely represents chronic small vessel ischemic disease. 3. Right-sided parotiditis. Cervical Spine CT 04/01/24 21:50 IMPRESSION: 1. No fracture. 2. Mild cervical spondylosis. 3. Right-sided parotiditis. 4. Mild bilateral cervical lymphadenopathy, likely reactive. Chest CT 04/01/24 21:56 IMPRESSION: 1. Small pericardial effusion. 2. Comminuted fracture of proximal right humerus. Abdomen/Pelvis CT 04/02/24 06:28 IMPRESSION: 1. Cystitis. 2. Thrombus in left ventricular apex of the heart. Labs Labs: Laboratory Results - last 24 hr 04/02/24 04/02/24 04/02/24 03:33 08:25 17:06 WBC RBC Hgb Hct MCV MCH MCHC RDW Plt Count MPV Immature Gran % (Auto) Neut % (Auto) Lymph % (Auto) Whiteside % (Auto) Eos % (Auto) Baso % (Auto) Lymph # (Auto) Whiteside # (Auto) Eos # (Auto) Baso # (Auto) Abs Immat Gran (auto) Absolute Neuts (auto) Absolute Nucleated RBC Nucleated RBC % Sodium Potassium Chloride Carbon Dioxide Anion Gap BUN Creatinine Estim Creat Clear Calc Estimated GFR Glucose POC Capillary Glucose 372 H Calcium Phosphorus Magnesium Total Bilirubin AST ALT Alkaline Phosphatase Total Protein Albumin Vitamin B12 954.0 H Folate 3.5 Crossmatch See Detail 04/02/24 04/02/24 04/03/24 19:01 20:36 06:35 WBC 18.7 H RBC 2.56 L Hgb 7.8 L 7.6 L Hct 23.7 L 23.8 L MCV 93.0 MCH 29.7 MCHC 31.9 L RDW 13.9 Plt Count 351 MPV 9.6 Immature Gran % (Auto) 0.5 Neut % (Auto) 68.8 Lymph % (Auto) 20.4 Whiteside % (Auto) 4.7 Eos % (Auto) 5.2 H Baso % (Auto) 0.4 Lymph # (Auto) 3.82 H Whiteside # (Auto) 0.9 H Eos # (Auto) 1.0 H Baso # (Auto) 0.1 Abs Immat Gran (auto) 0.09 H Absolute Neuts (auto) 12.8 H Absolute Nucleated RBC 0.000 Nucleated RBC % 0.0 Sodium 139 Potassium 4.2 Chloride 115 H Carbon Dioxide 17 L Anion Gap 7 BUN 92 H D Creatinine 2.10 H Estim Creat Clear Calc 32 Estimated GFR 24 L Glucose 144 H POC Capillary Glucose 233 H Calcium 8.5 Phosphorus 3.1 Magnesium 1.9 Total Bilirubin 0.3 AST 20 ALT 9 Alkaline Phosphatase 88 Total Protein 6.0 L Albumin 2.2 L Vitamin B12 Folate Crossmatch 04/03/24 04/03/24 08:07 12:00 WBC RBC Hgb Hct MCV MCH MCHC RDW Plt Count MPV Immature Gran % (Auto) Neut % (Auto) Lymph % (Auto) Whiteside % (Auto) Eos % (Auto) Baso % (Auto) Lymph # (Auto) Whiteside # (Auto) Eos # (Auto) Baso # (Auto) Abs Immat Gran (auto) Absolute Neuts (auto) Absolute Nucleated RBC Nucleated RBC % Sodium Potassium Chloride Carbon Dioxide Anion Gap BUN Creatinine Estim Creat Clear Calc Estimated GFR Glucose POC Capillary Glucose 142 H 322 H Calcium Phosphorus Magnesium Total Bilirubin AST ALT Alkaline Phosphatase Total Protein Albumin Vitamin B12 Folate Crossmatch
[2024-04-03 14:00] VITALS: BP 100/53; PULSE 84; RESP 16; TEMP 36.3; O2SAT 100
[2024-04-03 17:15] LABS: Glucose Point of Care 217 mg/dl (65-105)
[2024-04-03] MEDS: cefTRIAXone 2 GM/NS 100 ML 2 GM/100 ML BAG IVPB (18:06)
[2024-04-03] MEDS: MIDODRINE HCL 2.5 MG TABLET 5 MG PO (18:07)
[2024-04-03] MEDS: VANCOMYCIN 1,250 MG/NS 250 ML 1,250 MG/250 ML BAG 166.67 MG IVPB ×2 (18:07→18:08)
[2024-04-03] MEDS: DIPHENHYDRAMINE 1%/ZINC 0.1% CREAM 30 GM TUBE 1 APPLIC TOPICAL (18:07)
[2024-04-03] MEDS: MICONAZOLE NITRATE 2% CREAM 30 GM TUBE 1 APPLIC TOPICAL (18:08)
[2024-04-03 18:30] LABS: MRSA (PCR) NOT DETECTED (NOT DETECTE)
[2024-04-03 22:00] VITALS: BP 125/57; PULSE 78; RESP 22; TEMP 36.8; O2SAT 98
[2024-04-03] MEDS: INSULIN GLARGINE (*BKC) 100 UNITS/ML 16 UNITS SUB-Q (22:42)
[2024-04-03 22:44] LABS: Glucose Point of Care 126 mg/dl (65-105)
[2024-04-04] VITALS (13 sets, daily range): BP systolic 108–146; BP diastolic 44–68; PULSE 73–91; RESP 16–18; TEMP 36.1–36.9; O2SAT 96–100
[2024-04-04] MEDS: HYDROcodone/acetaminophen (*CRX) 5-325 MG TABLET 1 TAB PO ×2 (04:45→21:30)
[2024-04-04] MEDS: metroNIDAZOLE 500 MG/ISO 100ML 500 MG/100 ML BAG 100 MG IVPB ×3 (05:11→21:44)
[2024-04-04 07:31] LABS: Alanine Aminotransferase 7 U/L (6-35); Alkaline Phosphatase 77 U/L (38-126); Anion Gap 6 mmol/L (4-12); Aspartate Amino Transferase 24 U/L (14-36); Bilirubin,Total 0.4 mg/dL (0.2-1.3); Blood Urea Nitrogen 71 mg/dL (7-17); Calcium 8.4 mg/dL (8.4-10.2); Carbon Dioxide 15 mmol/L (22-30); Chloride 120 mmol/L (98-107); Estimated CRCL calculation 39 ml/min; Estimated Glomerular Filt Rate 30; Glucose 102 mg/dL (65-110); Magnesium 1.8 mg/dL (1.6-2.3); Potassium 4.9 mmol/L (3.4-5.0); Sodium 141 mmol/L (137-145)
[2024-04-04 08:09] LABS: Glucose Point of Care 105 mg/dl (65-105)
[2024-04-04 08:37] LABS: Basophils Absolute Auto 0.1 K/mm3 (0.0-0.1); Basophils Percent Auto 0.5 % (0.2-1.2); Eosinophils Absolute Auto 0.8 K/mm3 (0-0.3); Eosinophils Percent Auto 4.9 % (0-4.4); Hematocrit 21.6 % (37.0-47.0); Immature Granulocyte Absolute 0.08 K/mm3 (0.00-0.031); Immature Granulocyte Percent A 0.5 % (0-0.5); Lymphocytes Absolute Auto 2.94 K/mm3 (0.9-3.2); Lymphocytes Percent Auto 18.2 % (18.3-44.2); Mean Corpuscular Hemoglobin 29.3 pg (26-34); Mean Corpuscular Volume 94.3 fl (80-100); Mean Platelet Volume 9.4 fl (7.4-10.4); Monocytes Absolute Auto 0.9 K/mm3 (0.1-0.6); Monocytes Percent Auto 5.6 % (2.6-8.5); Neutrophils Absolute Auto 11.4 K/mm3 (1.3-6.7); Neutrophils Percent Auto 70.3 % (45.5-73.1); Platelet Count Result 370 k/mm3 (150-375); Red Blood Count 2.29 M/mm3 (4.2-5.4); White Blood Count 16.2 K/mm3 (4.5-10.0)
[2024-04-04 08:40] LABS: Hemoglobin 6.7 g/dL (12.0-15.0)
[2024-04-04 09:34] LABS: Lactate Dehydrogenase 272 U/L (120-246)
[2024-04-04] MEDS: SODIUM BICARBONATE TAB 650 MG TABLET PO (09:39)
[2024-04-04] MEDS: ATORVASTATIN 40 MG TABLET PO (09:39)
[2024-04-04] MEDS: MIDODRINE HCL 2.5 MG TABLET 5 MG PO ×3 (09:39→17:08)
[2024-04-04] MEDS: MICONAZOLE NITRATE 2% CREAM 30 GM TUBE 1 APPLIC TOPICAL ×2 (09:40→21:28)
[2024-04-04] MEDS: PANTOPRAZOLE SODIUM IV 40 MG VIAL IV PUSH ×2 (09:40→21:28)
--- NOTE | 2024-04-04 10:30 | P.CONGI_ITS ---
<Statement entered by Schuyler Alvarez MD - 04/04/24 15:35> I, Schuyler Alvarez MD, have provided a substantive portion of the care of this patient and discussed the patient with my Nurse Practitioner. I have reviewed any new relevant radiographic and laboratory results including medications. I agree with her documentation as noted below.?I personally performed the medical decision making and much of the history and exam for this encounter. briefly, she is here after a fall with humerus fracture, also recent COVID, bed bug infestation and diagnosed with parotiditis and sepsis on abx. Noted more anemia than usual but no overt gib in fact occult blood in stool negative. She is receiving blood transfusion. Anemia probably is multifactorial, no need of acute endoscopic intervention. If anemia persists then can be set up as outpatient. Will follow only as needed. Assessment and Plan Assessment and plan (1) Normocytic anemia: Code(s): D64.9 - Anemia, unspecified Status: Acute Plan 1. Anemia: Endoscopy Hx unknown. Iron panel normal except low TIBC. No B12 or folate deficiency noted. Patient with known CKD stage 3 with BUN 71, creatinine 1.70 and GFR 30. No signs of active GI bleeding and fecal occult blood negative. No coffee ground emesis since admission. On admission Hgb 8.6 and on 04/02 Hgb down to 6.0. Patient received one unit PRBC's. Patient with recent fall that resulted in a right humerus fracture March 23 and has bruising to right shoulder and chest. She has a Hx of stroke and right thalamic infarction and was previously prescribed Plavix and aspirin 81 mg daily but patient has not been taking Plavix. Patient has multiple poorly managed chronic conditions. Current COVID diagnosis and patient states that she is dealing with a bed bug infestation at her home. * Likely multifactorial etiology of anemia give multiple comorbidities and recent trauma * No indication for emergent endoscopic evaluation, may consider outpatient workup if anemia persists once patient is more stable * Primary care team to continue monitoring for signs of active GI bleeding and monitor H/H and transfuse as needed to keep Hgb >7 * Consider hematology evaluation to evaluate for non GI source of anemia * Continue PPI 2. Leukocytosis: Patient with Parotiditis and UTI. WBC's on admission 19 and now 16. Patient afebrile. * Primary care team managing, continue antibiotics Thank you very much for allowing me to share in the care of this patient. This report may have been done utilizing a voice recognition system. Attempts have been made to correct errors. However, there may be uncorrected grammatical, spelling, and recognition errors present. GI Consult Note Consult date/time: 04/04/24 10:30 Reason for consult: Anemia HPI: This is a 63-year-old female with history of CVA, right bowel make infarction, diabetes, chronic kidney disease stage 3, and recent right humerus fracture. She presented to the emergency room 04/01/2024 with complaints of weakness and lethargy. Patient was seen at [facility] March 23 after a fall resulting in a right humerus fracture. GI consulted for anemia. ENDOSCOPY HISTORY: EGD: Bx results: COLONOSCOPY: Bx results: LABS AND STOOL STUDIES: Labs 04/04/2024: Sodium 141, potassium 4.9, BUN 71, creatinine 1.70, GFR 30 WBC 16, HGB 7, HCT 22, MCV 94, platelets 370. Total bilirubin 0.4, AST 24, ALT 7, alkaline phosphatase 77, albumin 2.0 Calcium 8.4, phosphorus 4.0, magnesium 1.8 Iron 76, TIBC 166, iron saturation 46%, ferritin 149. Labs 04/01/2024 WBC 19, HGB 9, HCT 28, MCV 94, platelets 440 IMAGING: CT abd/pelvis w/contrast 04/02/2024 FINDINGS: The visualized portions of the lung bases demonstrate mild atelectasis. No pleural effusion. Cardiomegaly is noted. There is thrombus in left ventricular apex. No pericardial effusion. There are coronary artery calcifications. The liver and spleen are normal. The gallbladder is absent. The pancreas and adrenal glands are normal. There is cortical thinning of the kidneys. There is a 6.3 cm cyst in right kidney. There is gas in the bladder lumen and a calyx of left kidney, likely from recent instrumentation. There is wall thickening of the bladder, consistent with cystitis. There are no dilated loops of bowel. The appendix is normal. There is an umbilical hernia containing fat. There is calcified atherosclerosis of the aorta and many of the other arteries. There are no pathologically enlarged lymph nodes. There is no free intraperitoneal fluid. There is fat stranding posterior to left initial tuberosity, consistent with inflammation/scarring. There is a supraumbilical ventral hernia containing fat. There are bilateral rib fractures. There is a chronic burst fracture of L3. IMPRESSION: 1. Cystitis. 2. Thrombus in left ventricular apex of the heart. CT chest 04/01/2024 IMPRESSION: 1. Small pericardial effusion. 2. Comminuted fracture of proximal right humerus. Review of Systems 2 Review of Systems: ROS unobtainable: Yes unobtainable due to medical condition and other (History obtained from ER documentation, prior records and RN) [facility] Past Medical History Medical History Stage 3a chronic kidney disease (CKD) Diabetes mellitus Smoker Right thalamic infarction Stroke Surgical History Surgical History No history of previous surgery Family History Family History Sibling Breast cancer Father Acute myocardial infarction Congestive heart failure Sibling Acute myocardial infarction Social History Social History Social History: Smoked <1ppd x 47yrs. No alcohol or drug use. Lives at home with her . They have a dog Code status - Full Surrogate decision maker - Smoking packs per day: 0.10 Smoking cigarettes per day: 2.0 Years smoked: 40 Smoking pack-years: 4.00 Smoking status: Never smoker Tobacco type: cigarettes Additional smoking assessment comments: PT STARTED AGE 17, STOPPED 5YRS AGO, BUT HAS RESTARTED Alcohol intake: former Drinks per week: 1 Substance use: never Do You Feel Safe in your Home?: Yes Lack of Transportation: YES Lack of Food: Sometimes True Current Housing: I Have Housing Concerned About Future Housing: No Difficulty Paying Gas/Electric Bills: No Difficulty Paying for Meds: YES Currently Unemployed: No Education: Don't Know Difficulty w/ Childcare or Family Care: No Spiritual care concerns: No Meds Home Medications and Allergies Home Medications ?Medication ?Instructions ?Recorded ?Confirmed ?Type aspirin 81 mg chewable tablet 1 tablet PO DAILY 10/28/22 04/02/24 History atorvastatin 40 mg tablet 40 mg PO DAILY 10/28/22 04/02/24 History clotrimazole 1 % topical cream 1 applic topical BID PRN Rash 10/28/22 04/02/24 History clopidogrel 75 mg tablet 75 mg PO QAM 90 days #90 tabs 07/21/23 04/02/24 Rx insulin glargine 100 unit/mL (3 20 unit (0.2 mL) subcut HS #15 mL 07/21/23 04/02/24 Rx mL) subcutaneous pen (Lantus Solostar U-100 Insulin) Allergies Allergy/AdvReac Type Severity Reaction Status Date / Time No Known Allergies Allergy Verified 04/02/24 06:59 Vital Signs Vital Signs - 24 hr 04/03/24 14:00 04/03/24 20:00 04/03/24 22:00 Temperature 97.4 F L 98.2 F Pulse Rate 84 78 Respiratory Rate 16 22 H Blood Pressure 100/53 L 125/57 L Pulse Oximetry 100 98 Oxygen Delivery Room Air 04/04/24 04:46 04/04/24 08:00 Temperature 97.4 F L 96.9 F L Pulse Rate 91 86 Respiratory Rate 18 18 Blood Pressure 108/61 120/48 L Pulse Oximetry 98 100 Oxygen Delivery Results Labs 04/04/24 10:28 04/04/24 06:55 Labs: Short CBC 04/04/24 Range/Units 08:30 WBC 16.2 H (4.5-10.0) K/mm3 Hgb 6.7 L* (12.0-15.0) g/dL Hct 21.6 L (37.0-47.0) % Plt Count 370 (150-375) k/mm3 [facility] 04/04/24 06:55 Sodium 141 Potassium 4.9 Chloride 120 H Carbon Dioxide 15 L BUN 71 H D Creatinine 1.70 H Glucose 102 Calcium 8.4 Liver Function 04/04/24 Range/Units 06:55 Total Bilirubin 0.4 (0.2-1.3) mg/dL AST 24 (14-36) U/L ALT 7 (6-35) U/L Alkaline Phosphatase 77 (38-126) U/L Albumin 2.0 L (3.5-5.1) g/dL
[2024-04-04 10:54] LABS: Hematocrit 19.8 % (37.0-47.0); Hemoglobin 6.1 g/dL (12.0-15.0)
[2024-04-04 12:13] LABS: Glucose Point of Care 136 mg/dl (65-105)
--- NOTE | 2024-04-04 14:07 | P.PNIM_ITS ---
Progress Note: A&P Assessment and Plan (1) Sepsis: Code(s): A41.9 - Sepsis, unspecified organism Status: Acute Assessment and Plan: Patient presents with weakness and found to have sepsis with tachycardia, leuk ocytisis and elevated lactic. She received appropriate IV fluids in ED. Source is COVID, UTI and parotiditis. Started on Rocephin and Flagyl after Cx collected. May have conjunctivitis but sclera clear so this may be coming from the tear duct without recurrence. WBC worse and Parotid exam worse yesterday so Vanco added 04/03. BCx NGTD. UCx growing EColi. WBC better. Exam improved and patient feels better Follow on culture results. (2) Anemia: Code(s): D64.9 - Anemia, unspecified Status: Acute Assessment and Plan: Hgb low on admission at 8.6. Hgb was 12 in July. She does take ASA but not Plavix at home. Suspect anemia is from recent fracture and noted ecchymosis. Stool guaiac negative by ED exam. She was having bilious emesis but not felt to be coffee ground. Hgb dropped to 6.0 on 04/02 and transfused 2U PRBCs. Could be acute blood loss and/or Hgb drop from IV fluids. PPI added. Iron studies consistent with anemia of chronic disease. B12/folate normal. Hgb 6.1 today and 2u PRBCs ordered again. GI consulted and appreciate their input. Trend HH and transfuse to a stable Hgb. Serial HH (3) Acute parotitis: Code(s): K11.21 - Acute sialoadenitis Status: Acute Assessment and Plan: Imaging and exam confirm right parotiditis. Started on Rocephin and Flagyl. No fevers but WBC higher so Rocephin dose advanced and Vanco added. Clincially better and WBC improved. Requested family bring in Lemon drops. Follow (4) Stage 3a chronic kidney disease (CKD): Code(s): N18.31 - Chronic kidney disease, stage 3a Status: Acute Assessment and Plan: Cr normal in 2022 but was 1.2-1.8 range when hospitalized in July for CVA. [place] she had an acute component at that time possible contrast induced nephropathy. Here, Cr 1.8 and BUN 67. Cr higher at 2.1 and BUN now 92. Related to occult GI bleed? CKD probably related to DM. ROCIO could be related to sepsis, UTI, parotiditis, anemia, COVID, [facility] CT Abd/pelvis showing cystitis, cortical thinning of the kidneys and a 6.3cm right renal cyst. There is also gas in the bladder and left kidney likely form instrumentation but consider pyelonephritis. UCx growing EColi that is pansensitive. She was given IV fluids and UOP better. Stop IV fluids since will be receiving PRBCs. Continue Midodrine. Serum bicarb 15 (AG 6) so will add oral bicarb Follow renal function, electrolytes and UOP. (5) UTI (urinary tract infection): Code(s): N39.0 - Urinary tract infection, site not specified Status: Acute Assessment and Plan: UA is consistent with UTI except for moderate squamous cells and relatively asymptomatic. UCx collected. CT scan showing bladder wall thickening c/w cystitis. Also with gas in the bladder and left kidney likely form instrumentation but consider pyelonephritis. Rocephin started. Green placed. UCx growing relatively woods-sensitive EColi. Continue Rocephin (6) LV (left ventricular) mural thrombus: Code(s): I51.3 - Intracardiac thrombosis, not elsewhere classified Status: Acute Assessment and Plan: CT Abd showing a LV thrombus. No hx of CAD or signs of CHF to suggest poor LV function. Echo in July 2023 showing normal LV systolic function with EF 55-60% and grade I diastolic dysfxn. Heparin drip was ordered but held due to anemia (Heparin was never started). Echo this admission showing LV mildly enlarged with moderately reduced LV systolic fxn with EF 40-45% and diastolic dysfunction. No visualized thrombus in the LV by Echo. Will plan to start GDT if BP allows. (7) COVID: Code(s): U07.1 - COVID-19 Status: Acute Assessment and Plan: Patient found to have COVID. She believes she received the COVID vaccine. CT chest showing mild atelectasis. Remains on room air so will monitor and provide supportive care (8) Fracture, humerus closed: Code(s): S42.309A - Unspecified fracture of shaft of humerus, unspecified arm, initial encounter for closed fracture Status: Inactive Assessment and Plan: Patient with known right humerus fracture that is in 3 parts. This is associated with blood loss and bruising. No BP in right arm. Use sling as needed Ortho consulted and apprecaite their input. (9) Diabetes mellitus: Code(s): E11.9 - Type 2 diabetes mellitus without complications Status: Acute Assessment and Plan: Patient with DM and is poorly controlled with A1c 12.6%. She does not take her insulin at home and rarely checks her glucose. The patient's blood glucose was reviewed on 04/04 Glucose better controlled. Continue AccuCheks covering with sliding scale. Hypoglycemia protocol available as needed. Continue Lantus but decrease dose; stop meal time Novolog. (10) Hx of completed stroke: Code(s): Z86.73 - Personal history of transient ischemic attack (TIA), and cerebral infarction without residual deficits Status: Acute Assessment and Plan: Head CT showing old CVAs right occipital, bilateral basal ganglia, right internal capsule and right thalamus. She is on ASA but not on Plavix or lipitor at home Resume ASA when able. Lipitor restarted. Bedside swallow was normal. Started on full liquid diet due to n/v. Advance as tolerated. (11) Smoker: Code(s): F17.200 - Nicotine dependence, unspecified, uncomplicated Status: Acute Assessment and Plan: Patient was congratulated on stopping smoking. Plan DVT prophylaxis - SCDs Code status - Full Subjective Date/time seen: 04/04/24 14:07 Interval history: 63yo female with hx of CVAs and DM here for weakness. Pruritus better. Right ear/jaw pain better. Slept okay. No CP or SOB. No n/v. Exam Narrative: AF 97.6 115/6 85 16 100% ra Gen - NARD HEENT - Right parotid swelling and tenderness with decreasing edema Chest - bibasilar crackles. nml RR. CV - RRR S1/S2 Abd - soft. NT/ND - Green secured draining clear yellow urine Ext - no pedal edema. Psych - normal mood and affect. Skin - excoriations right shoulder, posterior neck and up in to posterior hair line. no obvious bedbugs. ecchymosis right upper chest without change. Objective Data Vital Signs Vital Signs: Vital Signs - 24 hr 04/03/24 20:00 04/03/24 22:00 04/04/24 04:46 Temperature 98.2 F 97.4 F L Pulse Rate 78 91 Respiratory Rate 22 H 18 Blood Pressure 125/57 L 108/61 Pulse Oximetry 98 98 Oxygen Delivery Room Air 04/04/24 08:00 04/04/24 10:59 04/04/24 13:15 Temperature 96.9 F L 97 F L Pulse Rate 86 85 Respiratory Rate 18 16 Blood Pressure 120/48 L 115/61 Pulse Oximetry 100 100 Oxygen Delivery Room Air 04/04/24 13:29 04/04/24 13:30 Temperature 97.6 F 97.6 F Pulse Rate 85 85 Respiratory Rate 16 16 Blood Pressure 115/62 115/62 Pulse Oximetry 100 100 Oxygen Delivery Intake/Output Intake/Output: Intake & Output 04/01/24 04/02/24 04/03/24 04/04/24 23:59 23:59 23:59 23:59 Intake Total 4100 1911.7 556 Output Total 20 700 1700 1000 Balance -20 3400 211.7 -444 Meds/Results Medications: Active Medications Generic Name Dose Route Start Last Admin Trade Name Freq PRN Reason Stop Dose Admin Acetaminophen 650 mg 04/02/24 09:53 Acetaminophen 325 Mg Tablet PO Q6H PRN Mild Pain (1-5) Or Fever Hydrocodone Bitart/Acetaminophen 1 tab 04/02/24 09:53 04/04/24 04:45 Hydrocodone/Acetaminophen (*Crx) 5-325 Mg Tablet PO 1 tab Q6H PRN Administration Pain Rated 6 or Greater Atorvastatin Calcium 40 mg 04/03/24 09:00 04/04/24 09:39 Atorvastatin 40 Mg Tablet PO 40 mg DAILY PRERNA Administration Dextrose 12.5 gm 04/02/24 07:07 Dextrose 50% 25 Gm/50 Ml Syringe IV PUSH PRN PRN Hypoglycemia Protocol Glucagon 1 mg 04/02/24 07:07 Glucagon For Inj 1 Mg Vial IM PRN PRN Hypoglycemia Protocol Glucose 15 gm 04/02/24 07:07 Glucose Oral Gel 15 Gm Of Glucse In 37.5 Gm Tube PO PRN PRN Hypoglycemia Protocol Metronidazole 500 mg in 100 mls @ 100 mls/hr 04/02/24 14:00 04/04/24 06:11 Flagyl 500 Mg/Iso Soln 100 Ml IVPB Infused Q8HR PRERNA Infusion Dextrose 1,000 mls @ 100 mls/hr 04/02/24 07:07 Dextrose 5% 1,000 Ml IVPB PRN PRN Hypoglycemia Protocol Ceftriaxone Sodium 2 gm in 100 mls @ 200 mls/hr 04/03/24 15:00 04/03/24 18:06 Rocephin 2 Gm/Ns 100 Ml IVPB 200 mls/hr Q24H PRERNA Administration Vancomycin HCl 1,500 mg in 500 mls @ 250 mls/hr 04/05/24 04:00 Vancomycin 1,500 Mg/Ns 500 Ml IVPB Q36H PRERNA Sodium Chloride 250 mls @ 30 mls/hr 04/04/24 10:58 Normal Saline Iv IV CONT 04/04/24 19:17 .Q8H20M STA Insulin Aspart 4 - 8 units 04/02/24 08:00 04/04/24 12:36 Insulin Aspart (*Bkc) 100 Units/Ml SUB-Q Not Given TIDWM [facility] Protocol Insulin Glargine 12 units 04/04/24 21:00 Insulin Glargine (*Bkc) 100 Units/Ml SUB-Q HS [facility] Miconazole Nitrate 1 applic 04/03/24 21:00 04/04/24 09:40 Miconazole Nitrate 2% Cream 30 Gm Tube TOPICAL 1 applic Q12HR PRERNA Administration Midodrine 5 mg 04/03/24 17:00 04/04/24 13:23 Midodrine Hcl 2.5 Mg Tablet PO 5 mg TID PRERNA Administration Ondansetron HCl 4 mg 04/02/24 09:53 04/03/24 10:47 Ondansetron Inj 4 Mg/2 Ml Vial IV PUSH 4 mg Q6H PRN Administration Nausea And Vomiting Pantoprazole Sodium 40 mg 04/02/24 09:00 04/04/24 09:40 Pantoprazole Sodium Iv 40 Mg Vial IV PUSH 40 mg Q12HR PRERNA Administration Perflutren Lipid Microsphere 0 ml 04/02/24 07:03 Perflutren Lipid Microspheres 1.5 Ml Vial Diluted To 10 Ml Total Volume IV PUSH 04/05/24 07:04 ONCE PRN adequate visualization Protocol Sodium Bicarbonate 650 mg 04/04/24 09:00 04/04/24 09:39 Sodium Bicarbonate Tab 650 Mg Tablet PO 650 mg BID PRERNA Administration Zinc Acetate/Diphenhydramine 1 applic 04/03/24 14:15 04/03/24 18:07 Diphenhydramine 1%/Zinc 0.1% Cream 30 Gm Tube TOPICAL 1 applic QID PRN Administration Itching Radiology Results: ITS Impressions Humerus X-Ray 04/01/24 21:37 IMPRESSION: 1. Comminuted three-part fracture of proximal right humerus. Head CT 04/01/24 21:47 IMPRESSION: 1. 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 2. Mild nonspecific cerebral white matter disease, which likely represents chronic small vessel ischemic disease. 3. Right-sided parotiditis. Cervical Spine CT 04/01/24 21:50 IMPRESSION: 1. No fracture. 2. Mild cervical spondylosis. 3. Right-sided parotiditis. 4. Mild bilateral cervical lymphadenopathy, likely reactive. Chest CT 04/01/24 21:56 IMPRESSION: 1. Small pericardial effusion. 2. Comminuted fracture of proximal right humerus. Abdomen/Pelvis CT 04/02/24 06:28 IMPRESSION: 1. Cystitis. 2. Thrombus in left ventricular apex of the heart. Labs Labs: Laboratory Results - last 24 hr 04/02/24 04/03/24 04/03/24 03:33 16:42 16:46 WBC RBC Hgb Hct MCV MCH MCHC RDW Plt Count MPV Immature Gran % (Auto) Neut % (Auto) Lymph % (Auto) [place] % (Auto) Eos % (Auto) Baso % (Auto) Lymph # (Auto) [place] # (Auto) Eos # (Auto) Baso # (Auto) Abs Immat Gran (auto) Absolute Neuts (auto) Absolute Nucleated RBC Nucleated RBC % Sodium Potassium Chloride Carbon Dioxide Anion Gap BUN Creatinine Estim Creat Clear Calc Estimated GFR Glucose POC Capillary Glucose 217 H Calcium Phosphorus Magnesium Total Bilirubin AST ALT Alkaline Phosphatase Lactate Dehydrogenase Total Protein Albumin Nasal MRSA (PCR) Not detected Blood Type O Negative Antibody Screen Negative Crossmatch See Detail 04/03/24 04/04/24 04/04/24 22:32 06:55 07:50 WBC RBC Hgb Hct MCV MCH MCHC RDW Plt Count MPV Immature Gran % (Auto) Neut % (Auto) Lymph % (Auto) [place] % (Auto) Eos % (Auto) Baso % (Auto) Lymph # (Auto) [place] # (Auto) Eos # (Auto) Baso # (Auto) Abs Immat Gran (auto) Absolute Neuts (auto) Absolute Nucleated RBC Nucleated RBC % Sodium 141 Potassium 4.9 Chloride 120 H Carbon Dioxide 15 L Anion Gap 6 BUN 71 H D Creatinine 1.70 H Estim Creat Clear Calc 39 Estimated GFR 30 L Glucose 102 POC Capillary Glucose 126 H 105 Calcium 8.4 Phosphorus 4.0 Magnesium 1.8 Total Bilirubin 0.4 AST 24 ALT 7 Alkaline Phosphatase 77 Lactate Dehydrogenase Total Protein 6.0 L Albumin 2.0 L Nasal MRSA (PCR) Blood Type Antibody Screen Crossmatch 04/04/24 04/04/24 04/04/24 08:29 08:30 10:28 WBC 16.2 H RBC 2.29 L Hgb 6.7 L* 6.1 L* Hct 21.6 L 19.8 L* MCV 94.3 MCH 29.3 MCHC 31.0 L RDW 14.0 Plt Count 370 MPV 9.4 Immature Gran % (Auto) 0.5 Neut % (Auto) 70.3 Lymph % (Auto) 18.2 L [place] % (Auto) 5.6 Eos % (Auto) 4.9 H Baso % (Auto) 0.5 Lymph # (Auto) 2.94 [place] # (Auto) 0.9 H Eos # (Auto) 0.8 H Baso # (Auto) 0.1 Abs Immat Gran (auto) 0.08 H Absolute Neuts (auto) 11.4 H Absolute Nucleated RBC 0.000 Nucleated RBC % 0.0 Sodium Potassium Chloride Carbon Dioxide Anion Gap BUN Creatinine Estim Creat Clear Calc Estimated GFR Glucose POC Capillary Glucose Calcium Phosphorus Magnesium Total Bilirubin AST ALT Alkaline Phosphatase Lactate Dehydrogenase 272 H Total Protein Albumin Nasal MRSA (PCR) Blood Type Antibody Screen Crossmatch 04/04/24 12:04 WBC RBC Hgb Hct MCV MCH MCHC RDW Plt Count MPV Immature Gran % (Auto) Neut % (Auto) Lymph % (Auto) [place] % (Auto) Eos % (Auto) Baso % (Auto) Lymph # (Auto) [place] # (Auto) Eos # (Auto) Baso # (Auto) Abs Immat Gran (auto) Absolute Neuts (auto) Absolute Nucleated RBC Nucleated RBC % Sodium Potassium Chloride Carbon Dioxide Anion Gap BUN Creatinine Estim Creat Clear Calc Estimated GFR Glucose POC Capillary Glucose 136 H Calcium Phosphorus Magnesium Total Bilirubin AST ALT Alkaline Phosphatase Lactate Dehydrogenase Total Protein Albumin Nasal MRSA (PCR) Blood Type Antibody Screen Crossmatch
[2024-04-04] MEDS: cefTRIAXone 2 GM/NS 100 ML 2 GM/100 ML BAG IVPB (17:07)
[2024-04-04 17:35] LABS: Glucose Point of Care 161 mg/dl (65-105)
[2024-04-04] MEDS: INSULIN GLARGINE (*BKC) 100 UNITS/ML 12 UNITS SUB-Q (21:36)
[2024-04-04 21:47] LABS: Glucose Point of Care 175 mg/dl (65-105)
[2024-04-05] MEDS: VANCOMYCIN 1,500 MG/NS 500 ML 1,500 MG/500 ML BAG 250 MG IVPB (03:48)
[2024-04-05 06:15] VITALS: BP 129/69; PULSE 89; RESP 16; TEMP 36.2; O2SAT 99
[2024-04-05 06:45] LABS: Basophils Absolute Auto 0.1 K/mm3 (0.0-0.1); Basophils Percent Auto 0.8 % (0.2-1.2); Eosinophils Absolute Auto 0.9 K/mm3 (0-0.3); Eosinophils Percent Auto 7.9 % (0-4.4); Hematocrit 28.7 % (37.0-47.0); Hemoglobin 9.1 g/dL (12.0-15.0); Immature Granulocyte Absolute 0.05 K/mm3 (0.00-0.031); Immature Granulocyte Percent A 0.4 % (0-0.5); Lymphocytes Absolute Auto 2.61 K/mm3 (0.9-3.2); Lymphocytes Percent Auto 22.5 % (18.3-44.2); Mean Corpuscular HGB Conc 31.7 g/dl (32-36); Mean Corpuscular Hemoglobin 30.4 pg (26-34); Mean Platelet Volume 9.4 fl (7.4-10.4); Monocytes Absolute Auto 0.8 K/mm3 (0.1-0.6); Monocytes Percent Auto 6.9 % (2.6-8.5); Neutrophils Absolute Auto 7.1 K/mm3 (1.3-6.7); Neutrophils Percent Auto 61.5 % (45.5-73.1); Platelet Count Result 330 k/mm3 (150-375); Red Blood Count 2.99 M/mm3 (4.2-5.4); Red Cell Distribution Width 14.5 % (11.5-14.5); White Blood Count 11.6 K/mm3 (4.5-10.0)
[2024-04-05] MEDS: metroNIDAZOLE 500 MG/ISO 100ML 500 MG/100 ML BAG 100 MG IVPB ×3 (06:48→21:25)
[2024-04-05 07:48] LABS: Albumin Level 2.4 g/dL (3.5-5.1); Anion Gap 2 mmol/L (4-12); Blood Urea Nitrogen 50 mg/dL (7-17); Calcium 8.5 mg/dL (8.4-10.2); Carbon Dioxide 19 mmol/L (22-30); Chloride 117 mmol/L (98-107); Estimated CRCL calculation 47 ml/min; Estimated Glomerular Filt Rate 38; Glucose 126 mg/dL (65-110); Magnesium 1.8 mg/dL (1.6-2.3); Phosphorus 3.7 mg/dL (2.5-4.5); Potassium 4.2 mmol/L (3.4-5.0); Sodium 138 mmol/L (137-145)
[2024-04-05] MEDS: SODIUM BICARBONATE TAB 650 MG TABLET PO ×2 (08:35→16:51)
[2024-04-05] MEDS: MIDODRINE HCL 2.5 MG TABLET 5 MG PO ×3 (08:35→16:51)
[2024-04-05] MEDS: PANTOPRAZOLE SODIUM IV 40 MG VIAL IV PUSH ×2 (08:35→21:25)
[2024-04-05] MEDS: ATORVASTATIN 40 MG TABLET PO (08:35)
[2024-04-05] MEDS: MICONAZOLE NITRATE 2% CREAM 30 GM TUBE 1 APPLIC TOPICAL ×2 (08:35→21:25)
[2024-04-05 08:39] LABS: Glucose Point of Care 130 mg/dl (65-105)
--- NOTE | 2024-04-05 10:50 | PC.NURSE ---
Outer shell of several bugs noted to patients bed. Bed cleansed and new linen applied. Informed patient to alert family of findings.
[2024-04-05 12:41] LABS: Glucose Point of Care 297 mg/dl (65-105)
[2024-04-05] MEDS: INSULIN ASPART (*BKC) 100 UNITS/ML SUB-Q ×2 (12:43→16:55)
[2024-04-05 14:00] VITALS: BP 126/65; PULSE 74; RESP 18; TEMP 36.3; O2SAT 99
[2024-04-05] MEDS: cefTRIAXone 2 GM/NS 100 ML 2 GM/100 ML BAG IVPB (14:05)
[2024-04-05 16:58] LABS: Glucose Point of Care 218 mg/dl (65-105)
--- NOTE | 2024-04-05 18:02 | PM.IMPN ---
Progress Note: A&P Assessment and Plan (1) Sepsis: Code(s): A41.9 - Sepsis, unspecified organism Status: Acute Assessment and Plan: Patient presents with weakness and found to have sepsis with tachycardia, leukocytisis and elevated lactic. She received appropriate IV fluids in ED. Source is COVID, UTI and/or parotiditis. Started on Rocephin and Flagyl after Cx collected. May have conjunctivitis but sclera clear so this may be coming from the tear duct; this has improved. WBC worsened and Parotid exam worsened so Vanco added and Rocephin increased 04/03. BCx NGTD. UCx growing EColi. WBC better. Exam much improved and patient feels better Follow on culture results. (2) Anemia: Code(s): D64.9 - Anemia, unspecified Status: Acute Assessment and Plan: Hgb low on admission at 8.6. Hgb was 12 in July. She does take ASA but not Plavix at home. Suspect anemia is from recent fracture and noted ecchymosis. Stool guaiac negative by ED exam. She was having bilious emesis on admission but not felt to be coffee ground. Hgb dropped to 6.0 on 04/02 and transfused 2U PRBCs. Could be acute blood loss and/or Hgb drop from IV fluids. PPI added. Iron studies consistent with anemia of chronic disease. B12/folate normal. Hgb 6.1 04/04 and 2u PRBCs ordered again. GI consulted and appreciate their input. Trend HH and transfuse to a stable Hgb. (3) Acute parotitis: Code(s): K11.21 - Acute sialoadenitis Status: Acute Assessment and Plan: Imaging and exam confirm right parotiditis. Started on Rocephin and Flagyl. MRSA nasal swab negative No fevers but WBC higher so Rocephin dose advanced and Vanco added 04/03. Clincially much better and WBC improved. Requested family bring in Lemon drops. Follow (4) Stage 3a chronic kidney disease (CKD): Code(s): N18.31 - Chronic kidney disease, stage 3a Status: Acute Assessment and Plan: Cr normal in 2022. Cr 1.2-1.8 range July 2023 for CVA. Possibly an acute component of contrast induced nephropathy. Here, Cr 1.8 and climbed to 2.1. BUN up to 92; related to occult GI bleed? CKD probably related to DM. ROCIO related to sepsis, UTI, parotiditis, anemia, COVID, HoTN CT Abd/pelvis showing cystitis, cortical thinning of the kidneys and a 6.3cm right renal cyst. There is also gas in the bladder and left kidney likely form instrumentation but consider pyelonephritis. UCx growing EColi that is pansensitive. She was given IV fluids and UOP better. Midodrine added for HoTN. Serum bicarb 15 (AG 6) so oral bicarb added Cr down to 1.4 and BUn 50. Serum bicarb improved. Follow renal function, electrolytes and UOP. (5) UTI (urinary tract infection): Code(s): N39.0 - Urinary tract infection, site not specified Status: Acute Assessment and Plan: UA is consistent with UTI except for moderate squamous cells and relatively asymptomatic. UCx collected. CT scan showing bladder wall thickening c/w cystitis. Also with gas in the bladder and left kidney likely form instrumentation but consider pyelonephritis. Rocephin started. Green placed. UCx growing relatively woods-sensitive EColi. Continue Rocephin. Remove Green (6) LV (left ventricular) mural thrombus: Code(s): I51.3 - Intracardiac thrombosis, not elsewhere classified Status: Acute Assessment and Plan: CT Abd showing a LV thrombus. No hx of CAD or signs of CHF to suggest poor LV function. Echo in July 2023 showing normal LV systolic function with EF 55-60% and grade I diastolic dysfxn. Heparin drip was ordered but never started due to anemia Echo this admission showing LV mildly enlarged with moderately reduced LV systolic fxn with EF 40-45% and diastolic dysfunction. No visualized thrombus in the LV by Echo. Will plan to start GDT if BP allows and renal function continues to improve. (7) COVID: Code(s): U07.1 - COVID-19 Status: Acute Assessment and Plan: Patient found to have COVID. She believes she received the COVID vaccine. CT chest showing mild atelectasis. Remains on room air so will monitor and provide supportive care (8) Fracture, humerus closed: Code(s): S42.309A - Unspecified fracture of shaft of humerus, unspecified arm, initial encounter for closed fracture Status: Inactive Assessment and Plan: Patient with known right humerus fracture that is in 3 parts. This is associated with blood loss and bruising. No BP in right arm. Use sling as needed for comfort Ortho consulted and appreciate their input. (9) Diabetes mellitus: Code(s): E11.9 - Type 2 diabetes mellitus without complications Status: Acute Assessment and Plan: Patient with DM and is poorly controlled with A1c 12.6%. She does not take her insulin at home and rarely checks her glucose. The patient's blood glucose was reviewed on 04/05 Glucose mostly better controlled. Continue AccuCheks covering with sliding scale. Hypoglycemia protocol available as needed. Continue Lantus (10) Hx of completed stroke: Code(s): Z86.73 - Personal history of transient ischemic attack (TIA), and cerebral infarction without residual deficits Status: Acute Assessment and Plan: Head CT showing old CVAs right occipital, bilateral basal ganglia, right internal capsule and right thalamus. She is on ASA but not on Plavix or lipitor at home Resume ASA when able. Lipitor restarted. Bedside swallow was normal. Started on full liquid diet due to n/v. Advanced to soft and bite sized level 6 . (11) Smoker: Code(s): F17.200 - Nicotine dependence, unspecified, uncomplicated Status: Acute Assessment and Plan: Patient was congratulated on stopping smoking. Plan DVT prophylaxis - SCDs Code status - Full Subjective Date/time seen: 04/05/24 18:02 Interval history: 63yo female with hx of CVAs and DM here for weakness. Feeling better. Slept well. Still having considerable pruritus. No SOB or CP. Decreased pain to the right jamshid-auricular region. Exam Narrative: AF 97.4 126/65 74 18 99% ra Gen - NARD HEENT - Right parotid swelling much better. No post-auricular erythema. less tender Chest - mild inspir scattered rhonchi o/w clear CV - RRR S1/S2 Abd - soft. NT/ND - Green secured draining clear yellow urine Ext - no pedal edema. Psych - normal mood and affect. Skin - excoriations right shoulder, posterior neck and up in to posterior hair line. no obvious bedbugs. ecchymosis right upper chest Objective Data Vital Signs Vital Signs: Vital Signs - 24 hr 04/04/24 18:56 04/04/24 19:12 04/04/24 20:00 Temperature 97 F L 97 F L Pulse Rate 85 85 Respiratory Rate 16 16 Blood Pressure 122/65 133/60 Pulse Oximetry 100 100 Oxygen Delivery Room Air 04/04/24 20:12 04/04/24 21:02 04/05/24 06:15 Temperature 98.5 F 98.2 F 97.1 F L Pulse Rate 73 84 89 Respiratory Rate 16 16 Blood Pressure 138/68 146/66 H 129/69 Pulse Oximetry 96 99 Oxygen Delivery 04/05/24 08:00 04/05/24 09:30 04/05/24 14:00 Temperature 97.4 F L Pulse Rate 74 Respiratory Rate 18 Blood Pressure 126/65 Pulse Oximetry 99 Oxygen Delivery Room Air Room Air Intake/Output Intake/Output: Intake & Output 04/02/24 04/03/24 04/04/24 04/05/24 23:59 23:59 23:59 23:59 Intake Total 4100 2011.7 2466 2380 Output Total 700 1700 1800 1550 Balance 3400 311.7 666 830 Meds/Results Medications: Active Medications Generic Name Dose Route Start Last Admin Trade Name Freq PRN Reason Stop Dose Admin Acetaminophen 650 mg 04/02/24 09:53 Acetaminophen 325 Mg Tablet PO Q6H PRN Mild Pain (1-5) Or Fever Hydrocodone Bitart/Acetaminophen 1 tab 04/02/24 09:53 04/04/24 21:30 Hydrocodone/Acetaminophen (*Crx) 5-325 Mg Tablet PO 1 tab Q6H PRN Administration Pain Rated 6 or Greater Atorvastatin Calcium 40 mg 04/03/24 09:00 04/05/24 08:35 Atorvastatin 40 Mg Tablet PO 40 mg DAILY PRERNA Administration Dextrose 12.5 gm 04/02/24 07:07 Dextrose 50% 25 Gm/50 Ml Syringe IV PUSH PRN PRN Hypoglycemia Protocol Glucagon 1 mg 04/02/24 07:07 Glucagon For Inj 1 Mg Vial IM PRN PRN Hypoglycemia Protocol Glucose 15 gm 04/02/24 07:07 Glucose Oral Gel 15 Gm Of Glucse In 37.5 Gm Tube PO PRN PRN Hypoglycemia Protocol Metronidazole 500 mg in 100 mls @ 100 mls/hr 04/02/24 14:00 04/05/24 14:03 Flagyl 500 Mg/Iso Soln 100 Ml IVPB Infused Q8HR PRERNA Infusion Dextrose 1,000 mls @ 100 mls/hr 04/02/24 07:07 Dextrose 5% 1,000 Ml IVPB PRN PRN Hypoglycemia Protocol Ceftriaxone Sodium 2 gm in 100 mls @ 200 mls/hr 04/03/24 15:00 04/05/24 14:35 Rocephin 2 Gm/Ns 100 Ml IVPB Infused Q24H PRERNA Infusion Vancomycin HCl 1,500 mg in 500 mls @ 250 mls/hr 04/06/24 04:00 Vancomycin 1,500 Mg/Ns 500 Ml IVPB Q24H [facility] Insulin Aspart 4 - 8 units 04/02/24 08:00 04/05/24 16:55 Insulin Aspart (*Bkc) 100 Units/Ml SUB-Q 4 units TIDWM [facility] Administration Protocol Insulin Glargine 12 units 04/04/24 21:00 04/04/24 21:36 Insulin Glargine (*Bkc) 100 Units/Ml SUB-Q 12 units HS PRERNA Administration Miconazole Nitrate 1 applic 04/03/24 21:00 04/05/24 08:35 Miconazole Nitrate 2% Cream 30 Gm Tube TOPICAL 1 applic Q12HR PRERNA Administration Midodrine 5 mg 04/03/24 17:00 04/05/24 16:51 Midodrine Hcl 2.5 Mg Tablet PO 5 mg TID PRERNA Administration Ondansetron HCl 4 mg 04/02/24 09:53 04/03/24 10:47 Ondansetron Inj 4 Mg/2 Ml Vial IV PUSH 4 mg Q6H PRN Administration Nausea And Vomiting Pantoprazole Sodium 40 mg 04/02/24 09:00 04/05/24 08:35 Pantoprazole Sodium Iv 40 Mg Vial IV PUSH 40 mg Q12HR PRERNA Administration Sodium Bicarbonate 650 mg 04/04/24 09:00 04/05/24 16:51 Sodium Bicarbonate Tab 650 Mg Tablet PO 650 mg BID PRERNA Administration Zinc Acetate/Diphenhydramine 1 applic 04/03/24 14:15 04/03/24 18:07 Diphenhydramine 1%/Zinc 0.1% Cream 30 Gm Tube TOPICAL 1 applic QID PRN Administration Itching Radiology Results: ITS Impressions Humerus X-Ray 04/01/24 21:37 IMPRESSION: 1. Comminuted three-part fracture of proximal right humerus. Head CT 04/01/24 21:47 IMPRESSION: 1. 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 2. Mild nonspecific cerebral white matter disease, which likely represents chronic small vessel ischemic disease. 3. Right-sided parotiditis. Cervical Spine CT 04/01/24 21:50 IMPRESSION: 1. No fracture. 2. Mild cervical spondylosis. 3. Right-sided parotiditis. 4. Mild bilateral cervical lymphadenopathy, likely reactive. Chest CT 04/01/24 21:56 IMPRESSION: 1. Small pericardial effusion. 2. Comminuted fracture of proximal right humerus. Abdomen/Pelvis CT 04/02/24 06:28 IMPRESSION: 1. Cystitis. 2. Thrombus in left ventricular apex of the heart. Labs Labs: Laboratory Results - last 24 hr 04/02/24 04/04/24 04/05/24 03:33 21:35 06:28 WBC 11.6 H RBC 2.99 L Hgb 9.1 L D Hct 28.7 L MCV 96.0 MCH 30.4 MCHC 31.7 L RDW 14.5 Plt Count 330 MPV 9.4 Immature Gran % (Auto) 0.4 Neut % (Auto) 61.5 Lymph % (Auto) 22.5 [place] % (Auto) 6.9 Eos % (Auto) 7.9 H Baso % (Auto) 0.8 Lymph # (Auto) 2.61 [place] # (Auto) 0.8 H Eos # (Auto) 0.9 H Baso # (Auto) 0.1 Abs Immat Gran (auto) 0.05 H Absolute Neuts (auto) 7.1 H Absolute Nucleated RBC 0.000 Nucleated RBC % 0.0 Sodium 138 Potassium 4.2 Chloride 117 H Carbon Dioxide 19 L Anion Gap 2 L BUN 50 H D Creatinine 1.40 H Estim Creat Clear Calc 47 Estimated GFR 38 L Glucose 126 H POC Capillary Glucose 175 H Calcium 8.5 Phosphorus 3.7 Magnesium 1.8 Albumin 2.4 L Blood Type O Negative Antibody Screen Negative Crossmatch See Detail 04/05/24 04/05/24 04/05/24 08:35 12:36 16:54 WBC RBC Hgb Hct MCV MCH MCHC RDW Plt Count MPV Immature Gran % (Auto) Neut % (Auto) Lymph % (Auto) [place] % (Auto) Eos % (Auto) Baso % (Auto) Lymph # (Auto) [place] # (Auto) Eos # (Auto) Baso # (Auto) Abs Immat Gran (auto) Absolute Neuts (auto) Absolute Nucleated RBC Nucleated RBC % Sodium Potassium Chloride Carbon Dioxide Anion Gap BUN Creatinine Estim Creat Clear Calc Estimated GFR Glucose POC Capillary Glucose 130 H 297 H 218 H Calcium Phosphorus Magnesium Albumin Blood Type Antibody Screen Crossmatch
[2024-04-05 21:24] VITALS: BP 142/65; PULSE 74; RESP 14; TEMP 36.2; O2SAT 97
[2024-04-05] MEDS: INSULIN GLARGINE (*BKC) 100 UNITS/ML 12 UNITS SUB-Q (21:25)
[2024-04-05] MEDS: HYDROcodone/acetaminophen (*CRX) 5-325 MG TABLET 1 TAB PO (21:25)
[2024-04-05 21:34] LABS: Glucose Point of Care 175 mg/dl (65-105)
[2024-04-06] MEDS: VANCOMYCIN 1,500 MG/NS 500 ML 1,500 MG/500 ML BAG 250 MG IVPB (03:24)
[2024-04-06 06:00] VITALS: BP 148/67; PULSE 68; RESP 14; TEMP 36.1; O2SAT 99
[2024-04-06] MEDS: metroNIDAZOLE 500 MG/ISO 100ML 500 MG/100 ML BAG 100 MG IVPB ×3 (06:51→22:08)
[2024-04-06 07:08] LABS: Hematocrit 26.1 % (37.0-47.0); Hemoglobin 8.5 g/dL (12.0-15.0); Mean Corpuscular HGB Conc 32.6 g/dl (32-36); Mean Corpuscular Volume 92.2 fl (80-100); Mean Platelet Volume 9.3 fl (7.4-10.4); Platelet Count Result 350 k/mm3 (150-375); Red Blood Count 2.83 M/mm3 (4.2-5.4); Red Cell Distribution Width 14.3 % (11.5-14.5); White Blood Count 12.6 K/mm3 (4.5-10.0)
[2024-04-06 07:27] LABS: Anion Gap -1 mmol/L (4-12); Blood Urea Nitrogen 33 mg/dL (7-17); Calcium 8.3 mg/dL (8.4-10.2); Carbon Dioxide 21 mmol/L (22-30); Chloride 117 mmol/L (98-107); Estimated CRCL calculation 55 ml/min; Estimated Glomerular Filt Rate 45; Glucose 152 mg/dL (65-110); Potassium 3.8 mmol/L (3.4-5.0); Sodium 137 mmol/L (137-145)
[2024-04-06 08:37] LABS: Glucose Point of Care 145 mg/dl (65-105)
[2024-04-06] MEDS: SODIUM BICARBONATE TAB 650 MG TABLET PO ×2 (09:48→17:47)
[2024-04-06] MEDS: ATORVASTATIN 40 MG TABLET PO (09:48)
[2024-04-06] MEDS: MIDODRINE HCL 2.5 MG TABLET 5 MG PO ×3 (09:48→17:47)
[2024-04-06] MEDS: MICONAZOLE NITRATE 2% CREAM 30 GM TUBE 1 APPLIC TOPICAL ×2 (11:15→21:30)
[2024-04-06] MEDS: PANTOPRAZOLE 40 MG TABLET PO ×2 (11:15→21:30)
[2024-04-06 12:01] LABS: Glucose Point of Care 193 mg/dl (65-105)
--- NOTE | 2024-04-06 13:02 | PM.IMPN ---
Progress Note: A&P Assessment and Plan (1) Sepsis: Code(s): A41.9 - Sepsis, unspecified organism Status: Acute Assessment and Plan: Patient presents with weakness and found to have sepsis with tachycardia, leukocytisis and elevated lactic. She received appropriate IV fluids in ED. Source is COVID, UTI and/or parotiditis. Started on Rocephin and Flagyl after Cx collected. May have conjunctivitis but sclera clear so this may be coming from the tear duct; this has improved. WBC worsened and Parotid exam worsened so Vanco added and Rocephin increased 04/03. BCx NGTD. UCx growing EColi. WBC better. Exam much improved and patient feels better Follow on culture results. 04/06/2024 urine culture showing E coli, will continue with IV antibiotics. (2) Anemia: Code(s): D64.9 - Anemia, unspecified Status: Acute Assessment and Plan: Hgb low on admission at 8.6. Hgb was 12 in July. She does take ASA but not Plavix at home. Suspect anemia is from recent fracture and noted ecchymosis. Stool guaiac negative by ED exam. She was having bilious emesis on admission but not felt to be coffee ground. Hgb dropped to 6.0 on 04/02 and transfused 2U PRBCs. Could be acute blood loss and/or Hgb drop from IV fluids. PPI added. Iron studies consistent with anemia of chronic disease. B12/folate normal. Hgb 6.1 04/04 and 2u PRBCs ordered again. GI consulted and appreciate their input. Trend HH and transfuse to a stable Hgb. 04/06/2024 will continue with trending and monitoring hemoglobin. Start vitamins and iron pills. (3) Acute parotitis: Code(s): K11.21 - Acute sialoadenitis Status: Acute Assessment and Plan: Imaging and exam confirm right parotiditis. Started on Rocephin and Flagyl. MRSA nasal swab negative No fevers but WBC higher so Rocephin dose advanced and Vanco added 04/03. Clincially much better and WBC improved. Requested family bring in Lemon drops. Follow 04/06/2024 Stable will continue to monitor (4) Stage 3a chronic kidney disease (CKD): Code(s): N18.31 - Chronic kidney disease, stage 3a Status: Acute Assessment and Plan: Cr normal in 2022. Cr 1.2-1.8 range July 2023 for CVA. Possibly an acute component of contrast induced nephropathy. Here, Cr 1.8 and climbed to 2.1. BUN up to 92; related to occult GI bleed? CKD probably related to DM. ROCIO related to sepsis, UTI, parotiditis, anemia, COVID, [facility]TN CT Abd/pelvis showing cystitis, cortical thinning of the kidneys and a 6.3cm right renal cyst. There is also gas in the bladder and left kidney likely form instrumentation but consider pyelonephritis. UCx growing EColi that is pansensitive. She was given IV fluids and UOP better. Midodrine added for HoTN. Serum bicarb 15 (AG 6) so oral bicarb added Cr down to 1.4 and BUn 50. Serum bicarb improved. Follow renal function, electrolytes and UOP. 04/06/2024 Renal function improving, continue to monitor closely. (5) UTI (urinary tract infection): Code(s): N39.0 - Urinary tract infection, site not specified Status: Acute Assessment and Plan: UA is consistent with UTI except for moderate squamous cells and relatively asymptomatic. UCx collected. CT scan showing bladder wall thickening c/w cystitis. Also with gas in the bladder and left kidney likely form instrumentation but consider pyelonephritis. Rocephin started. Green placed. UCx growing relatively woods-sensitive EColi. Continue Rocephin. Remove Green Continue current treatment, getting better.. (6) LV (left ventricular) mural thrombus: Code(s): I51.3 - Intracardiac thrombosis, not elsewhere classified Status: Acute Assessment and Plan: CT Abd showing a LV thrombus. No hx of CAD or signs of CHF to suggest poor LV function. Echo in July 2023 showing normal LV systolic function with EF 55-60% and grade I diastolic dysfxn. Heparin drip was ordered but never started due to anemia Echo this admission showing LV mildly enlarged with moderately reduced LV systolic fxn with EF 40-45% and diastolic dysfunction. No visualized thrombus in the LV by Echo. Will plan to start GDT if BP allows and renal function continues to improve. (7) COVID: Code(s): U07.1 - COVID-19 Status: Acute Assessment and Plan: Patient found to have COVID. She believes she received the COVID vaccine. CT chest showing mild atelectasis. Remains on room air so will monitor and provide supportive care (8) Fracture, humerus closed: Code(s): S42.309A - Unspecified fracture of shaft of humerus, unspecified arm, initial encounter for closed fracture Status: Inactive Assessment and Plan: Patient with known right humerus fracture that is in 3 parts. This is associated with blood loss and bruising. No BP in right arm. Use sling as needed for comfort Ortho consulted and appreciate their input. (9) Diabetes mellitus: Code(s): E11.9 - Type 2 diabetes mellitus without complications Status: Acute Assessment and Plan: Patient with DM and is poorly controlled with A1c 12.6%. She does not take her insulin at home and rarely checks her glucose. The patient's blood glucose was reviewed on 04/05 Glucose mostly better controlled. Continue AccuCheks covering with sliding scale. Hypoglycemia protocol available as needed. Continue Lantus (10) Hx of completed stroke: Code(s): Z86.73 - Personal history of transient ischemic attack (TIA), and cerebral infarction without residual deficits Status: Acute Assessment and Plan: Head CT showing old CVAs right occipital, bilateral basal ganglia, right internal capsule and right thalamus. She is on ASA but not on Plavix or lipitor at home Resume ASA when able. Lipitor restarted. Bedside swallow was normal. Started on full liquid diet due to n/v. Advanced to soft and bite sized level 6 . (11) Smoker: Code(s): F17.200 - Nicotine dependence, unspecified, uncomplicated Status: Acute Assessment and Plan: Patient was congratulated on stopping smoking. Plan DVT prophylaxis - SCDs Code status - Full Subjective Date/time seen: 04/06/24 13:02 Interval history: 04/06/2024 Patient was seen during the morning rounds today. 63yo female with hx of CVAs and DM here for weakness, sepsis and UTI. Feeling much better. No shortness breath or chest pain. Itching is better. Review of Systems Review of Systems: All systems reviewed & are unremarkable except as noted in HPI and below Exam Narrative: Vital signs are stable. Gen - NARD HEENT - Right parotid swelling much better. No post-auricular erythema. less tender Chest - Air entry is better and clear to auscultation. CV - RRR S1/S2 Abd - soft. NT/ND - Green secured draining clear yellow urine Ext - no pedal edema. Psych - normal mood and affect. Skin - excoriations right shoulder, posterior neck and up in to posterior hair line. no obvious bedbugs. ecchymosis right upper chest Objective Data Vital Signs Vital Signs: Vital Signs - 24 hr 04/05/24 14:00 04/05/24 20:00 04/05/24 21:24 Temperature 36.3 C L 36.2 C L Pulse Rate 74 74 Respiratory Rate 18 14 Blood Pressure 126/65 142/65 H Pulse Oximetry 99 97 Oxygen Delivery Room Air 04/06/24 06:00 Temperature 36.1 C L Pulse Rate 68 Respiratory Rate 14 Blood Pressure 148/67 H Pulse Oximetry 99 Oxygen Delivery Intake/Output Intake/Output: Intake & Output 04/03/24 04/04/24 04/05/24 04/06/24 23:59 23:59 23:59 23:59 Intake Total 2011.7 2466 2480 1010 Output Total 1700 1800 1550 250 Balance 311.7 666 930 760 Meds/Results Medications: Active Medications Generic Name Dose Route Start Last Admin Trade Name Freq PRN Reason Stop Dose Admin Acetaminophen 650 mg 04/02/24 09:53 Acetaminophen 325 Mg Tablet PO Q6H PRN Mild Pain (1-5) Or Fever Hydrocodone Bitart/Acetaminophen 1 tab 04/02/24 09:53 04/05/24 21:25 Hydrocodone/Acetaminophen (*Crx) 5-325 Mg Tablet PO 1 tab Q6H PRN Administration Pain Rated 6 or Greater Atorvastatin Calcium 40 mg 04/03/24 09:00 04/06/24 09:48 Atorvastatin 40 Mg Tablet PO 40 mg DAILY PRERNA Administration Dextrose 12.5 gm 04/02/24 07:07 Dextrose 50% 25 Gm/50 Ml Syringe IV PUSH PRN PRN Hypoglycemia Protocol Glucagon 1 mg 04/02/24 07:07 Glucagon For Inj 1 Mg Vial IM PRN PRN Hypoglycemia Protocol Glucose 15 gm 04/02/24 07:07 Glucose Oral Gel 15 Gm Of Glucse In 37.5 Gm Tube PO PRN PRN Hypoglycemia Protocol Metronidazole 500 mg in 100 mls @ 100 mls/hr 04/02/24 14:00 04/06/24 06:51 Flagyl 500 Mg/Iso Soln 100 Ml IVPB 100 mls/hr Q8HR PRERNA Administration Dextrose 1,000 mls @ 100 mls/hr 04/02/24 07:07 Dextrose 5% 1,000 Ml IVPB PRN PRN Hypoglycemia Protocol Ceftriaxone Sodium 2 gm in 100 mls @ 200 mls/hr 04/03/24 15:00 04/05/24 14:35 Rocephin 2 Gm/Ns 100 Ml IVPB Infused Q24H PRERNA Infusion Vancomycin HCl 1,500 mg in 500 mls @ 250 mls/hr 04/06/24 04:00 04/06/24 05:24 Vancomycin 1,500 Mg/Ns 500 Ml IVPB Infused Q24H PRERNA Infusion Insulin Aspart 4 - 8 units 04/02/24 08:00 04/06/24 12:05 Insulin Aspart (*Bkc) 100 Units/Ml SUB-Q Not Given TIDWM [facility] Protocol Insulin Glargine 12 units 04/04/24 21:00 04/05/24 21:25 Insulin Glargine (*Bkc) 100 Units/Ml SUB-Q 12 units HS PRERNA Administration Miconazole Nitrate 1 applic 04/03/24 21:00 04/06/24 11:15 Miconazole Nitrate 2% Cream 30 Gm Tube TOPICAL 1 applic Q12HR [facility] Administration Midodrine 5 mg 04/03/24 17:00 04/06/24 09:48 Midodrine Hcl 2.5 Mg Tablet PO 5 mg TID [facility] Administration Multivitamins/Minerals 15 ml 04/07/24 09:00 Multivit W/ Iron, Minerals 15 Ml Liquid (*Bkc) PO DAILY [facility] Ondansetron HCl 4 mg 04/02/24 09:53 04/03/24 10:47 Ondansetron Inj 4 Mg/2 Ml Vial IV PUSH 4 mg Q6H PRN Administration Nausea And Vomiting Pantoprazole Sodium 40 mg 04/06/24 09:55 04/06/24 11:15 Pantoprazole 40 Mg Tablet PO 40 mg Q12HR PRERNA Administration Sodium Bicarbonate 650 mg 04/04/24 09:00 04/06/24 09:48 Sodium Bicarbonate Tab 650 Mg Tablet PO 650 mg BID PRERNA Administration Zinc Acetate/Diphenhydramine 1 applic 04/03/24 14:15 04/03/24 18:07 Diphenhydramine 1%/Zinc 0.1% Cream 30 Gm Tube TOPICAL 1 applic QID PRN Administration Itching Radiology Results: ITS Impressions Humerus X-Ray 04/01/24 21:37 IMPRESSION: 1. Comminuted three-part fracture of proximal right humerus. Head CT 04/01/24 21:47 IMPRESSION: 1. 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 2. Mild nonspecific cerebral white matter disease, which likely represents chronic small vessel ischemic disease. 3. Right-sided parotiditis. Cervical Spine CT 04/01/24 21:50 IMPRESSION: 1. No fracture. 2. Mild cervical spondylosis. 3. Right-sided parotiditis. 4. Mild bilateral cervical lymphadenopathy, likely reactive. Chest CT 04/01/24 21:56 IMPRESSION: 1. Small pericardial effusion. 2. Comminuted fracture of proximal right humerus. Abdomen/Pelvis CT 04/02/24 06:28 IMPRESSION: 1. Cystitis. 2. Thrombus in left ventricular apex of the heart. Labs Labs: Laboratory Results - last 24 hr 04/05/24 04/05/24 04/06/24 16:54 21:22 06:51 WBC 12.6 H RBC 2.83 L Hgb 8.5 L Hct 26.1 L MCV 92.2 MCH 30.0 MCHC 32.6 RDW 14.3 Plt Count 350 MPV 9.3 Sodium 137 Potassium 3.8 Chloride 117 H Carbon Dioxide 21 L Anion Gap -1 L BUN 33 H D Creatinine 1.20 H Estim Creat Clear Calc 55 Estimated GFR 45 L Glucose 152 H POC Capillary Glucose 218 H 175 H Calcium 8.3 L 04/06/24 04/06/24 08:31 11:52 WBC RBC Hgb Hct MCV MCH MCHC RDW Plt Count MPV Sodium Potassium Chloride Carbon Dioxide Anion Gap BUN Creatinine Estim Creat Clear Calc Estimated GFR Glucose POC Capillary Glucose 145 H 193 H Calcium
[2024-04-06 14:00] VITALS: BP 118/56; PULSE 77; RESP 20; TEMP 36.2; O2SAT 96
[2024-04-06] MEDS: cefTRIAXone 2 GM/NS 100 ML 2 GM/100 ML BAG IVPB (14:23)
[2024-04-06 16:00] VITALS: BP 138/78; PULSE 82; RESP 16; TEMP 36.1; O2SAT 98
[2024-04-06 16:55] LABS: Glucose Point of Care 251 mg/dl (65-105)
[2024-04-06] MEDS: INSULIN ASPART (*BKC) 100 UNITS/ML SUB-Q (17:45)
--- NOTE | 2024-04-06 18:51 | PC.NURSE ---
On 04/06/24, the MANAGER PEST, [ Rafaela Carson], provided care and completed [facility] documentation on this patient. I have reviewed the MANAGER PEST's documentation and agree with the findings.
[2024-04-06] MEDS: INSULIN GLARGINE (*BKC) 100 UNITS/ML 12 UNITS SUB-Q (21:30)
[2024-04-06] MEDS: HYDROcodone/acetaminophen (*CRX) 5-325 MG TABLET 1 TAB PO (21:30)
[2024-04-06 22:00] VITALS: BP 132/56; PULSE 78; RESP 18; TEMP 36.7; O2SAT 95
[2024-04-06 22:00] LABS: Glucose Point of Care 210 mg/dl (65-105)
[2024-04-07 04:30] LABS: Vancomycin Trough 13.6 ug/mL (10.0-20.0)
[2024-04-07] MEDS: VANCOMYCIN 1,750 MG/NS 500 ML 1,750 MG/500 ML BAG 250 MG IVPB (05:56)
[2024-04-07 06:00] VITALS: BP 140/85; PULSE 75; RESP 18; TEMP 36.2; O2SAT 95
[2024-04-07] MEDS: metroNIDAZOLE 500 MG/ISO 100ML 500 MG/100 ML BAG 100 MG IVPB ×3 (06:00→21:34)
[2024-04-07 08:00] VITALS: O2SAT 95
[2024-04-07 08:17] LABS: Glucose Point of Care 161 mg/dl (65-105)
[2024-04-07] MEDS: ATORVASTATIN 40 MG TABLET PO (08:51)
[2024-04-07] MEDS: THERAPEUTIC MULTIVITAMINS/MINERALS TAB (*BKC) 1 TABLET PO (08:51)
[2024-04-07] MEDS: PANTOPRAZOLE 40 MG TABLET PO ×2 (08:51→21:35)
[2024-04-07] MEDS: SODIUM BICARBONATE TAB 650 MG TABLET PO ×2 (08:51→17:09)
[2024-04-07] MEDS: MIDODRINE HCL 2.5 MG TABLET 5 MG PO ×3 (08:51→17:09)
--- NOTE | 2024-04-07 11:14 | P.PNIM_ITS ---
Progress Note: A&P Assessment and Plan (1) Sepsis: Code(s): A41.9 - Sepsis, unspecified organism Status: Acute Assessment and Plan: Patient presents with weakness and found to have sepsis with tachycardia, leuk ocytisis and elevated lactic. She received appropriate IV fluids in ED. Source is COVID, UTI and/or parotiditis. Started on Rocephin and Flagyl after Cx collected. May have conjunctivitis but sclera clear so this may be coming from the tear duct; this has improved. WBC worsened and Parotid exam worsened so Vanco added and Rocephin increased 04/03. BCx NGTD. UCx growing EColi. WBC better. Exam much improved and patient feels better Follow on culture results. 04/06/2024 urine culture showing E coli, will continue with IV antibiotics. 04/07/2024 Patient is clinically for improvement. Plan is to continue with IV antibiotics monitor closely. (2) Anemia: Code(s): D64.9 - Anemia, unspecified Status: Acute Assessment and Plan: Hgb low on admission at 8.6. Hgb was 12 in July. She does take ASA but not Plavix at home. Suspect anemia is from recent fracture and noted ecchymosis. Stool guaiac negative by ED exam. She was having bilious emesis on admission but not felt to be coffee ground. Hgb dropped to 6.0 on 04/02 and transfused 2U PRBCs. Could be acute blood loss and/or Hgb drop from IV fluids. PPI added. Iron studies consistent with anemia of chronic disease. B12/folate normal. Hgb 6.1 04/04 and 2u PRBCs ordered again. GI consulted and appreciate their input. Trend HH and transfuse to a stable Hgb. 04/07/2024 will continue with trending and monitoring hemoglobin. Start vitamins and iron pills. (3) Acute parotitis: Code(s): K11.21 - Acute sialoadenitis Status: Acute Assessment and Plan: Imaging and exam confirm right parotiditis. Started on Rocephin and Flagyl. MRSA nasal swab negative No fevers but WBC higher so Rocephin dose advanced and Vanco added 04/03. Clincially much better and WBC improved. Requested family bring in Lemon drops. Follow 04/07/2024 Stable will continue to monitor (4) Stage 3a chronic kidney disease (CKD): Code(s): N18.31 - Chronic kidney disease, stage 3a Status: Acute Assessment and Plan: Cr normal in 2022. Cr 1.2-1.8 range July 2023 for CVA. Possibly an acute component of contrast induced nephropathy. Here, Cr 1.8 and climbed to 2.1. BUN up to 92; related to occult GI bleed? CKD probably related to DM. ROCIO related to sepsis, UTI, parotiditis, anemia, COVID, HoTN CT Abd/pelvis showing cystitis, cortical thinning of the kidneys and a 6.3cm right renal cyst. There is also gas in the bladder and left kidney likely form instrumentation but consider pyelonephritis. UCx growing EColi that is pansensitive. She was given IV fluids and UOP better. Midodrine added for HoTN. Serum bicarb 15 (AG 6) so oral bicarb added Cr down to 1.4 and BUn 50. Serum bicarb improved. Follow renal function, electrolytes and UOP. 04/07/2024 Renal function improving, continue to monitor closely. (5) UTI (urinary tract infection): Code(s): N39.0 - Urinary tract infection, site not specified Status: Acute Assessment and Plan: UA is consistent with UTI except for moderate squamous cells and relatively asym ptomatic. UCx collected. CT scan showing bladder wall thickening c/w cystitis. Also with gas in the bladder and left kidney likely form instrumentation but consider pyelonephritis. Rocephin started. Green placed. UCx growing relatively woods-sensitive EColi. Continue Rocephin. Remove Green 04/07/2024 Continue current treatment, getting better.. (6) LV (left ventricular) mural thrombus: Code(s): I51.3 - Intracardiac thrombosis, not elsewhere classified Status: Acute Assessment and Plan: CT Abd showing a LV thrombus. No hx of CAD or signs of CHF to suggest poor LV function. Echo in July 2023 showing normal LV systolic function with EF 55-60% and grade I diastolic dysfxn. Heparin drip was ordered but never started due to anemia Echo this admission showing LV mildly enlarged with moderately reduced LV systolic fxn with EF 40-45% and diastolic dysfunction. No visualized thrombus in the LV by Echo. Will plan to start GDT if BP allows and renal function continues to improve. (7) COVID: Code(s): U07.1 - COVID-19 Status: Acute Assessment and Plan: Patient found to have COVID. She believes she received the COVID vaccine. CT chest showing mild atelectasis. 04/07/2024 Remains on room air so will monitor and provide supportive care (8) Fracture, humerus closed: Code(s): S42.309A - Unspecified fracture of shaft of humerus, unspecified arm, initial encounter for closed fracture Status: Inactive Assessment and Plan: Patient with known right humerus fracture that is in 3 parts. This is associated with blood loss and bruising. No BP in right arm. Use sling as needed for comfort 04/07/2024 Ortho consulted and appreciate their input. (9) Diabetes mellitus: Code(s): E11.9 - Type 2 diabetes mellitus without complications Status: Acute Assessment and Plan: Patient with DM and is poorly controlled with A1c 12.6%. She does not take her insulin at home and rarely checks her glucose. The patient's blood glucose was reviewed on 04/05 Glucose mostly better controlled. Continue AccuCheks covering with sliding scale. Hypoglycemia protocol available as needed. Continue Lantus 04/07/2024 Stable on current medications, will continue current treatment (10) Hx of completed stroke: Code(s): Z86.73 - Personal history of transient ischemic attack (TIA), and cerebral infarction without residual deficits Status: Acute Assessment and Plan: Head CT showing old CVAs right occipital, bilateral basal ganglia, right internal capsule and right thalamus. She is on ASA but not on Plavix or lipitor at home Resume ASA when able. Lipitor restarted. Bedside swallow was normal. Started on full liquid diet due to n/v. Advanced to soft and bite sized level 6 . (11) Smoker: Code(s): F17.200 - Nicotine dependence, unspecified, uncomplicated Status: Acute Assessment and Plan: Patient was congratulated on stopping smoking. Plan DVT prophylaxis - SCDs Code status - Full Subjective Date/time seen: 04/07/24 11:14 Interval history: 04/07/2024 Patient was seen during the morning rounds today. 63yo female with hx of CVAs and DM here for weakness, sepsis and UTI. No new overnight complaints Feeling much better. No shortness breath or chest pain. Itching is better. Review of Systems Review of Systems: All systems reviewed & are unremarkable except as noted in HPI and below Exam Narrative: Vital signs are stable. Gen - NARD HEENT - Right parotid swelling much better. No post-auricular erythema. less tender Chest - Air entry is better and clear to auscultation. CV - RRR S1/S2 Abd - soft. NT/ND - Green secured draining clear yellow urine Ext - no pedal edema. Psych - normal mood and affect. Skin - excoriations right shoulder, posterior neck and up in to posterior hair line. no obvious bedbugs. ecchymosis right upper chest Objective Data Vital Signs Vital Signs: Vital Signs - 24 hr 04/06/24 14:00 04/06/24 16:00 04/06/24 20:00 Temperature 36.2 C L 36.1 C L Pulse Rate 77 82 Respiratory Rate 20 16 Blood Pressure 118/56 L 138/78 Pulse Oximetry 96 98 Oxygen Delivery Room Air 04/06/24 22:00 04/07/24 06:00 04/07/24 08:00 Temperature 36.7 C 36.2 C L Pulse Rate 78 75 Respiratory Rate 18 18 Blood Pressure 132/56 L 140/85 Pulse Oximetry 95 95 95 Oxygen Delivery Room Air Intake/Output Intake/Output: Intake & Output 04/04/24 04/05/24 04/06/24 04/07/24 23:59 23:59 23:59 23:59 Intake Total 2466 2480 2670 490 Output Total 1800 1550 1050 400 Balance 254 767 9291 90 Meds/Results Medications: Active Medications Generic Name Dose Route Start Last Admin Trade Name Freq PRN Reason Stop Dose Admin Acetaminophen 650 mg 04/02/24 09:53 Acetaminophen 325 Mg Tablet PO Q6H PRN Mild Pain (1-5) Or Fever Hydrocodone Bitart/Acetaminophen 1 tab 04/02/24 09:53 04/06/24 21:30 Hydrocodone/Acetaminophen (*Crx) 5-325 Mg Tablet PO 1 tab Q6H PRN Administration Pain Rated 6 or Greater Atorvastatin Calcium 40 mg 04/03/24 09:00 04/07/24 08:51 Atorvastatin 40 Mg Tablet PO 40 mg DAILY PRERNA Administration Dextrose 12.5 gm 04/02/24 07:07 Dextrose 50% 25 Gm/50 Ml Syringe IV PUSH PRN PRN Hypoglycemia Protocol Glucagon 1 mg 12/21/24 07:07 Glucagon For Inj 1 Mg Vial IM PRN PRN Hypoglycemia Protocol Glucose 15 gm 04/02/24 07:07 Glucose Oral Gel 15 Gm Of Glucse In 37.5 Gm Tube PO PRN PRN Hypoglycemia Protocol Metronidazole 500 mg in 100 mls @ 100 mls/hr 04/02/24 14:00 04/07/24 06:00 Flagyl 500 Mg/Iso Soln 100 Ml IVPB 100 mls/hr Q8HR PRERNA Administration Dextrose 1,000 mls @ 100 mls/hr 04/02/24 07:07 Dextrose 5% 1,000 Ml IVPB PRN PRN Hypoglycemia Protocol Ceftriaxone Sodium 2 gm in 100 mls @ 200 mls/hr 04/03/24 15:00 04/06/24 14:23 Rocephin 2 Gm/Ns 100 Ml IVPB 200 mls/hr Q24H PRERNA Administration Vancomycin HCl 1,750 mg in 500 mls @ 250 mls/hr 04/07/24 05:00 04/07/24 05:56 Vancomycin 1,750 Mg/Ns 500 Ml IVPB 250 mls/hr Q24H PRERNA Administration Insulin Aspart 4 - 8 units 04/02/24 08:00 04/07/24 08:39 Insulin Aspart (*Bkc) 100 Units/Ml SUB-Q Not Given TIDWM PRERNA Protocol Insulin Glargine 12 units 04/04/24 21:00 04/06/24 21:30 Insulin Glargine (*Bkc) 100 Units/Ml SUB-Q 12 units HS PRERNA Administration Miconazole Nitrate 1 applic 04/03/24 21:00 04/06/24 21:30 Miconazole Nitrate 2% Cream 30 Gm Tube TOPICAL 1 applic Q12HR PRERNA Administration Midodrine 5 mg 04/03/24 17:00 04/07/24 08:51 Midodrine Hcl 2.5 Mg Tablet PO 5 mg TID PRERNA Administration Multivitamins/Calcium 1 tablet 04/07/24 09:00 04/07/24 08:51 Therapeutic Multivitamins/Minerals Tab (*Bkc) PO 1 tablet DAILY PRERNA Administration Ondansetron HCl 4 mg 04/02/24 09:53 04/03/24 10:47 Ondansetron Inj 4 Mg/2 Ml Vial IV PUSH 4 mg Q6H PRN Administration Nausea And Vomiting Pantoprazole Sodium 40 mg 04/06/24 09:55 04/07/24 08:51 Pantoprazole 40 Mg Tablet PO 40 mg Q12HR PRERNA Administration Sodium Bicarbonate 650 mg 04/04/24 09:00 04/07/24 08:51 Sodium Bicarbonate Tab 650 Mg Tablet PO 650 mg BID PRERNA Administration Zinc Acetate/Diphenhydramine 1 applic 04/03/24 14:15 04/03/24 18:07 Diphenhydramine 1%/Zinc 0.1% Cream 30 Gm Tube TOPICAL 1 applic QID PRN Administration Itching Radiology Results: ITS Impressions Humerus X-Ray 04/01/24 21:37 IMPRESSION: 1. Comminuted three-part fracture of proximal right humerus. Head CT 04/01/24 21:47 IMPRESSION: 1. 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 2. Mild nonspecific cerebral white matter disease, which likely represents chronic small vessel ischemic disease. 3. Right-sided parotiditis. Cervical Spine CT 04/01/24 21:50 IMPRESSION: 1. No fracture. 2. Mild cervical spondylosis. 3. Right-sided parotiditis. 4. Mild bilateral cervical lymphadenopathy, likely reactive. Chest CT 04/01/24 21:56 IMPRESSION: 1. Small pericardial effusion. 2. Comminuted fracture of proximal right humerus. Abdomen/Pelvis CT 04/02/24 06:28 IMPRESSION: 1. Cystitis. 2. Thrombus in left ventricular apex of the heart. Labs Labs: Laboratory Results - last 24 hr 04/06/24 04/06/24 04/06/24 11:52 16:50 21:38 POC Capillary Glucose 193 H 251 H 210 H Vancomycin Trough 04/07/24 04/07/24 03:12 08:05 POC Capillary Glucose 161 H Vancomycin Trough 13.6
[2024-04-07 11:34] LABS: Glucose Point of Care 219 mg/dl (65-105)
[2024-04-07] MEDS: MICONAZOLE NITRATE 2% CREAM 30 GM TUBE 1 APPLIC TOPICAL ×2 (12:23→21:36)
[2024-04-07] MEDS: INSULIN ASPART (*BKC) 100 UNITS/ML SUB-Q ×2 (12:24→17:08)
[2024-04-07 14:00] VITALS: BP 152/67; PULSE 76; RESP 16; TEMP 36.3; O2SAT 100
[2024-04-07] MEDS: cefTRIAXone 2 GM/NS 100 ML 2 GM/100 ML BAG IVPB (14:41)
[2024-04-07 16:42] LABS: Glucose Point of Care 253 mg/dl (65-105)
[2024-04-07 17:57] LABS: Hematocrit 31.3 % (37.0-47.0); Hemoglobin 10.1 g/dL (12.0-15.0); Mean Corpuscular HGB Conc 32.3 g/dl (32-36); Mean Corpuscular Hemoglobin 30.1 pg (26-34); Mean Corpuscular Volume 93.4 fl (80-100); Mean Platelet Volume 9.4 fl (7.4-10.4); Platelet Count Result 417 k/mm3 (150-375); Red Blood Count 3.35 M/mm3 (4.2-5.4); Red Cell Distribution Width 14.3 % (11.5-14.5)
[2024-04-07] MEDS: INSULIN GLARGINE (*BKC) 100 UNITS/ML 12 UNITS SUB-Q (21:35)
[2024-04-07 21:46] LABS: Glucose Point of Care 254 mg/dl (65-105)
[2024-04-07 21:51] VITALS: BP 121/54; PULSE 72; RESP 18; TEMP 36.4; O2SAT 99
[2024-04-08] MEDS: VANCOMYCIN 1,750 MG/NS 500 ML 1,750 MG/500 ML BAG 250 MG IVPB (05:13)
[2024-04-08 05:18] VITALS: BP 141/71; PULSE 74; RESP 18; TEMP 36.4; O2SAT 98
--- NOTE | 2024-04-08 07:37 | PC.NURSE ---
Pt's IV started leaving while receiving vancomycin. She did not finish the last 1/3 of the vancomycin due to both of her IV's leaking. The day nurse was here and made aware. She is contacting the vascular nurse to get a new line.
[2024-04-08 08:00] VITALS: O2SAT 98
[2024-04-08 08:31] LABS: Glucose Point of Care 182 mg/dl (65-105)
[2024-04-08] MEDS: ATORVASTATIN 40 MG TABLET PO (08:36)
[2024-04-08] MEDS: THERAPEUTIC MULTIVITAMINS/MINERALS TAB (*BKC) 1 TABLET PO (08:36)
[2024-04-08] MEDS: MIDODRINE HCL 2.5 MG TABLET 5 MG PO ×2 (08:36→12:05)
[2024-04-08] MEDS: SODIUM BICARBONATE TAB 650 MG TABLET PO ×2 (08:36→16:40)
[2024-04-08] MEDS: PANTOPRAZOLE 40 MG TABLET PO ×2 (08:36→21:13)
[2024-04-08] MEDS: DIPHENHYDRAMINE 1%/ZINC 0.1% CREAM 30 GM TUBE 1 APPLIC TOPICAL (08:37)
[2024-04-08] MEDS: MICONAZOLE NITRATE 2% CREAM 30 GM TUBE 1 APPLIC TOPICAL ×2 (08:37→21:23)
[2024-04-08] MEDS: metroNIDAZOLE 500 MG/ISO 100ML 500 MG/100 ML BAG 100 MG IVPB ×3 (08:37→21:13)
[2024-04-08 08:51] LABS: Alanine Aminotransferase 8 U/L (6-35); Albumin Level 2.4 g/dL (3.5-5.1); Alkaline Phosphatase 74 U/L (38-126); Anion Gap 3 mmol/L (4-12); Aspartate Amino Transferase 21 U/L (14-36); Bilirubin,Total 0.5 mg/dL (0.2-1.3); Blood Urea Nitrogen 17 mg/dL (7-17); Calcium 8.1 mg/dL (8.4-10.2); Carbon Dioxide 22 mmol/L (22-30); Chloride 113 mmol/L (98-107); Estimated CRCL calculation 72 ml/min; Estimated Glomerular Filt Rate > 60; Glucose 173 mg/dL (65-110); Potassium 3.8 mmol/L (3.4-5.0); Sodium 138 mmol/L (137-145)
[2024-04-08 09:07] LABS: Hematocrit 27.7 % (37.0-47.0); Hemoglobin 8.9 g/dL (12.0-15.0); Mean Corpuscular HGB Conc 32.1 g/dl (32-36); Mean Corpuscular Hemoglobin 30.2 pg (26-34); Mean Corpuscular Volume 93.9 fl (80-100); Mean Platelet Volume 9.8 fl (7.4-10.4); Platelet Count Result 410 k/mm3 (150-375); Red Blood Count 2.95 M/mm3 (4.2-5.4); Red Cell Distribution Width 14.3 % (11.5-14.5); White Blood Count 14.7 K/mm3 (4.5-10.0)
[2024-04-08 11:52] LABS: Glucose Point of Care 212 mg/dl (65-105)
[2024-04-08] MEDS: INSULIN ASPART (*BKC) 100 UNITS/ML SUB-Q ×2 (12:04→16:39)
[2024-04-08 14:00] VITALS: BP 128/64; PULSE 75; RESP 14; TEMP 36.5; O2SAT 98
[2024-04-08] MEDS: cefTRIAXone 2 GM/NS 100 ML 2 GM/100 ML BAG IVPB (14:49)
--- NOTE | 2024-04-08 16:13 | P.PNIM_ITS ---
Progress Note: A&P Assessment and Plan (1) Sepsis: Code(s): A41.9 - Sepsis, unspecified organism Status: Acute Assessment and Plan: Patient presents with weakness and found to have sepsis with tachycardia, leuk ocytisis and elevated lactic. She received appropriate IV fluids in ED. Source is COVID, UTI and/or parotiditis. Started on Rocephin and Flagyl after Cx collected. May have conjunctivitis but sclera clear so this may be coming from the tear duct; this has improved. WBC worsened and Parotid exam worsened so Vanco added and Rocephin increased 04/03. BCx NGTD. UCx growing EColi. WBC better. Exam much improved and patient feels better Follow on culture results. (2) Anemia: Code(s): D64.9 - Anemia, unspecified Status: Acute Assessment and Plan: Hgb low on admission at 8.6. Hgb was 12 in July. She does take ASA but not Plavix at home. Suspect anemia is from recent fracture and noted ecchymosis. Stool guaiac negative by ED exam. She was having bilious emesis on admission but not felt to be coffee ground. Hgb dropped to 6.0 on 04/02 and transfused 2U PRBCs. Could be acute blood loss and/or Hgb drop from IV fluids. PPI added. Iron studies consistent with anemia of chronic disease. B12/folate normal. Hgb 6.1 04/04 and 2u PRBCs ordered again. GI consulted and appreciate their input. Trend HH and transfuse to a stable Hgb. (3) Acute parotitis: Code(s): K11.21 - Acute sialoadenitis Status: Acute Assessment and Plan: Imaging and exam confirm right parotiditis. Started on Rocephin and Flagyl MRSA nasal swab negative No fevers but WBC higher so Rocephin dose advanced and Vanco added 04/03. Clincially much better and WBC improved. Requested family bring in Lemon drops. (4) Stage 3a chronic kidney disease (CKD): Code(s): N18.31 - Chronic kidney disease, stage 3a Status: Acute Assessment and Plan: Cr normal in 2022. Cr 1.2-1.8 range July 2023 for CVA. Possibly an acute component of contrast induced nephropathy. Here, Cr 1.8 and climbed to 2.1. BUN up to 92; related to occult GI bleed? CKD probably related to DM. ROCIO related to sepsis, UTI, parotiditis, anemia, COVID, [facility] CT Abd/pelvis showing cystitis, cortical thinning of the kidneys and a 6.3cm right renal cyst. There is also gas in the bladder and left kidney likely form instrumentation but consider pyelonephritis. UCx growing EColi that is pansensitive. She was given IV fluids and UOP better. Midodrine added for HoTN. Serum bicarb 15 (AG 6) so oral bicarb added Cr down to 1.4 and BUn 50. Serum bicarb improved. Follow renal function, electrolytes and UOP. (5) UTI (urinary tract infection): Code(s): N39.0 - Urinary tract infection, site not specified Status: Acute Assessment and Plan: UA is consistent with UTI except for moderate squamous cells and relatively asymptomatic. UCx collected. CT scan showing bladder wall thickening c/w cystitis. Also with gas in the bladder and left kidney likely form instrumentation but consider pyelonephritis. Rocephin started. Green placed. UCx growing relatively woods-sensitive EColi. Continue Rocephin. Remove Green (6) LV (left ventricular) mural thrombus: Code(s): I51.3 - Intracardiac thrombosis, not elsewhere classified Status: Acute Assessment and Plan: CT Abd showing a LV thrombus. No hx of CAD or signs of CHF to suggest poor LV function. Echo in July 2023 showing normal LV systolic function with EF 55-60% and grade I diastolic dysfxn. Heparin drip was ordered but never started due to anemia Echo this admission showing LV mildly enlarged with moderately reduced LV systolic fxn with EF 40-45% and diastolic dysfunction. No visualized thrombus in the LV by Echo. Will plan to start GDT if BP allows and renal function continues to improve. will hold midodrine first (7) COVID: Code(s): U07.1 - COVID-19 Status: Acute Assessment and Plan: Patient found to have COVID. She believes she received the COVID vaccine. CT chest showing mild atelectasis. on room air, continue to monitor (8) Fracture, humerus closed: Code(s): S42.309A - Unspecified fracture of shaft of humerus, unspecified arm, initial encounter for closed fracture Status: Inactive Assessment and Plan: Patient with known right humerus fracture that is in 3 parts. This is associated with blood loss and bruising. No BP in right arm. Use sling as needed for comfort ortho consulted (9) Diabetes mellitus: Code(s): E11.9 - Type 2 diabetes mellitus without complications Status: Acute Assessment and Plan: Patient with DM and is poorly controlled with A1c 12.6%. She does not take her insulin at home and rarely checks her glucose. Continue AccuCheks covering with sliding scale. Hypoglycemia protocol available as needed. Continue Lantus (10) Hx of completed stroke: Code(s): Z86.73 - Personal history of transient ischemic attack (TIA), and cerebral infarction without residual deficits Status: Acute Assessment and Plan: Head CT showing old CVAs right occipital, bilateral basal ganglia, right internal capsule and right thalamus. She is on ASA but not on Plavix or lipitor at home Resume ASA when able. Lipitor restarted. Bedside swallow was normal. Started on full liquid diet due to n/v. Advanced to soft and bite sized level 6 . (11) Smoker: Code(s): F17.200 - Nicotine dependence, unspecified, uncomplicated Status: Acute Assessment and Plan: she stopped on stopping smoking Plan DVT prophylaxis - SCDs Code status - Full Subjective Date/time seen: 04/08/24 16:13 Interval history: Reports right arm pain and weakness. Breathing okay nose chest pain or shortness of breath. No cough. Review of Systems Review of Systems: All systems reviewed & are unremarkable except as noted in HPI and below Exam Narrative: Gen - NARD HEENT - Right parotid swelling much better. No post-auricular erythema. less tender Chest - Air entry is better and clear to auscultation. CV - RRR S1/S2 Abd - soft. NT/ND - Green secured draining clear yellow urine Ext - no pedal edema. Psych - normal mood and affect. Skin - excoriations right shoulder, posterior neck and up in to posterior hair line. no obvious bedbugs. ecchymosis right upper chest Objective Data Vital Signs Vital Signs: Vital Signs - 24 hr 04/07/24 21:51 04/08/24 05:18 04/08/24 08:00 Temperature 97.6 F 97.6 F Pulse Rate 72 74 Respiratory Rate 18 18 Blood Pressure 121/54 L 141/71 H Pulse Oximetry 99 98 98 Oxygen Delivery Room Air 04/08/24 14:00 Temperature 97.7 F Pulse Rate 75 Respiratory Rate 14 Blood Pressure 128/64 Pulse Oximetry 98 Oxygen Delivery Intake/Output Intake/Output: Intake & Output 04/05/24 04/06/24 04/07/24 04/08/24 23:59 23:59 23:59 23:59 Intake Total 2480 2770 1990 760 Output Total 1550 1050 800 575 Balance 930 1720 1190 185 Meds/Results Medications: Active Medications Generic Name Dose Route Start Last Admin Trade Name Freq PRN Reason Stop Dose Admin Acetaminophen 650 mg 04/02/24 09:53 Acetaminophen 325 Mg Tablet PO Q6H PRN Mild Pain (1-5) Or Fever Hydrocodone Bitart/Acetaminophen 1 tab 04/02/24 09:53 04/06/24 21:30 Hydrocodone/Acetaminophen (*Crx) 5-325 Mg Tablet PO 1 tab Q6H PRN Administration Pain Rated 6 or Greater Atorvastatin Calcium 40 mg 04/03/24 09:00 04/08/24 08:36 Atorvastatin 40 Mg Tablet PO 40 mg DAILY PRERNA Administration Dextrose 12.5 gm 04/02/24 07:07 Dextrose 50% 25 Gm/50 Ml Syringe IV PUSH PRN PRN Hypoglycemia Protocol Glucagon 1 mg 04/02/24 07:07 Glucagon For Inj 1 Mg Vial IM PRN PRN Hypoglycemia Protocol Glucose 15 gm 04/02/24 07:07 Glucose Oral Gel 15 Gm Of Glucse In 37.5 Gm Tube PO PRN PRN Hypoglycemia Protocol Metronidazole 500 mg in 100 mls @ 100 mls/hr 04/02/24 14:00 04/08/24 13:28 Flagyl 500 Mg/Iso Soln 100 Ml IVPB 100 mls/hr Q8HR PRERNA Administration Dextrose 1,000 mls @ 100 mls/hr 04/02/24 07:07 Dextrose 5% 1,000 Ml IVPB PRN PRN Hypoglycemia Protocol Ceftriaxone Sodium 2 gm in 100 mls @ 200 mls/hr 04/03/24 15:00 04/08/24 14:49 Rocephin 2 Gm/Ns 100 Ml IVPB 200 mls/hr Q24H PRERNA Administration Vancomycin HCl 1,750 mg in 500 mls @ 250 mls/hr 04/07/24 05:00 04/08/24 05:13 Vancomycin 1,750 Mg/Ns 500 Ml IVPB 250 mls/hr Q24H PRERNA Administration Insulin Aspart 4 - 8 units 04/02/24 08:00 04/08/24 12:04 Insulin Aspart (*Bkc) 100 Units/Ml SUB-Q 4 units TIDWM PRERNA Administration Protocol Insulin Glargine 12 units 04/04/24 21:00 04/07/24 21:35 Insulin Glargine (*Bkc) 100 Units/Ml SUB-Q 12 units HS PRERNA Administration Miconazole Nitrate 1 applic 04/03/24 21:00 04/08/24 08:37 Miconazole Nitrate 2% Cream 30 Gm Tube TOPICAL 1 applic Q12HR PRERNA Administration Midodrine 5 mg 04/03/24 17:00 04/08/24 12:05 Midodrine Hcl 2.5 Mg Tablet PO 5 mg TID PRERNA Administration Multivitamins/Calcium 1 tablet 04/07/24 09:00 04/08/24 08:36 Therapeutic Multivitamins/Minerals Tab (*Bkc) PO 1 tablet DAILY PRERNA Administration Ondansetron HCl 4 mg 04/02/24 09:53 04/03/24 10:47 Ondansetron Inj 4 Mg/2 Ml Vial IV PUSH 4 mg Q6H PRN Administration Nausea And Vomiting Pantoprazole Sodium 40 mg 04/06/24 09:55 04/08/24 08:36 Pantoprazole 40 Mg Tablet PO 40 mg Q12HR PRERNA Administration Sodium Bicarbonate 650 mg 04/04/24 09:00 04/08/24 08:36 Sodium Bicarbonate Tab 650 Mg Tablet PO 650 mg BID PRERNA Administration Zinc Acetate/Diphenhydramine 1 applic 04/03/24 14:15 04/08/24 08:37 Diphenhydramine 1%/Zinc 0.1% Cream 30 Gm Tube TOPICAL 1 applic QID PRN Administration Itching Radiology Results: ITS Impressions Humerus X-Ray 04/01/24 21:37 IMPRESSION: 1. Comminuted three-part fracture of proximal right humerus. Head CT 04/01/24 21:47 IMPRESSION: 1. 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 2. Mild nonspecific cerebral white matter disease, which likely represents chronic small vessel ischemic disease. 3. Right-sided parotiditis. Cervical Spine CT 04/01/24 21:50 IMPRESSION: 1. No fracture. 2. Mild cervical spondylosis. 3. Right-sided parotiditis. 4. Mild bilateral cervical lymphadenopathy, likely reactive. Chest CT 04/01/24 21:56 IMPRESSION: 1. Small pericardial effusion. 2. Comminuted fracture of proximal right humerus. Abdomen/Pelvis CT 04/02/24 06:28 IMPRESSION: 1. Cystitis. 2. Thrombus in left ventricular apex of the heart. Labs Labs: Laboratory Results - last 24 hr 04/07/24 04/07/24 04/07/24 16:38 17:51 20:28 WBC 17.0 H RBC 3.35 L Hgb 10.1 L Hct 31.3 L MCV 93.4 MCH 30.1 MCHC 32.3 RDW 14.3 Plt Count 417 H MPV 9.4 Sodium Potassium Chloride Carbon Dioxide Anion Gap BUN Creatinine Estim Creat Clear Calc Estimated GFR Glucose POC Capillary Glucose 253 H 254 H Calcium Total Bilirubin AST ALT Alkaline Phosphatase Total Protein Albumin 04/08/24 04/08/24 04/08/24 08:08 08:10 11:42 WBC 14.7 H RBC 2.95 L Hgb 8.9 L Hct 27.7 L MCV 93.9 MCH 30.2 MCHC 32.1 RDW 14.3 Plt Count 410 H MPV 9.8 Sodium 138 Potassium 3.8 Chloride 113 H Carbon Dioxide 22 Anion Gap 3 L BUN 17 D Creatinine 0.90 Estim Creat Clear Calc 72 Estimated GFR > 60 Glucose 173 H POC Capillary Glucose 182 H 212 H Calcium 8.1 L Total Bilirubin 0.5 AST 21 ALT 8 Alkaline Phosphatase 74 Total Protein 7.0 Albumin 2.4 L
[2024-04-08 16:36] LABS: Glucose Point of Care 259 mg/dl (65-105)
--- NOTE | 2024-04-08 16:37 | PM.PNORT ---
Progress Note: A&P Assessment and Plan (1) Fracture of proximal end of right humerus: Qualifiers: Encounter type: initial encounter Fracture alignment: displaced Fracture morphology: other fracture Fracture type: closed Qualified Code(s): S42.291A - Other displaced fracture of upper end of right humerus, initial encounter for closed fracture Code(s): S42.201A - Unspecified fracture of upper end of right humerus, initial encounter for closed fracture Status: Acute Assessment and Plan: Displaced surgical neck fracture with extension into the greater tuberosity. Subacute presentation after a fall several weeks ago. Continues to heal. Patient may continue formal physical therapy. Sling as needed for pain. I recommended ice and elevation to help with the hand swelling. Patient has multiple medical comorbidities. Currently septic. Poor surgical candidate. May cotninue non-operative treatment. Although she may have a reasonable clinical outcome, significant weakness and stiffness is expected. Risks associated with the fracture include malunion, nonunion, stiffness, and arthritis. Subjective Subjective Date/Time Seen: 04/08/24 16:37 Interval history: Patient resting comfortably. Notes some pain in the shoulder with motion but not terrible. She is wearing the sling. No numbness or tingling. Swelling in the hand. Review of Systems Review of Systems: All systems reviewed & are unremarkable except as noted in HPI and below Exam Narrative: 63 y/o female. Resting comfortably. Right shoulder without obvious clinical deformity. Mild ecchymosis in the chest. Fires deltoid. 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 Wiggles hands. Mild upper extremity edema. Skin with diffuse excoriations about the shoulder. No warmth erythema. No obvious effusion. Objective Data Vital Signs Vital Signs: Vital Signs - 24 hr 04/07/24 21:51 04/08/24 05:18 04/08/24 08:00 Temperature 97.6 F 97.6 F Pulse Rate 72 74 Respiratory Rate 18 18 Blood Pressure 121/54 L 141/71 H Pulse Oximetry 99 98 98 Oxygen Delivery Room Air 04/08/24 14:00 Temperature 97.7 F Pulse Rate 75 Respiratory Rate 14 Blood Pressure 128/64 Pulse Oximetry 98 Oxygen Delivery Intake/Output Intake/Output: Intake & Output 04/05/24 04/06/24 04/07/24 04/08/24 23:59 23:59 23:59 23:59 Intake Total 2480 2770 1990 760 Output Total 1550 1050 800 575 Balance 930 1720 1190 185 Meds/Results Medications: Active Medications Generic Name Dose Route Start Last Admin Trade Name Freq PRN Reason Stop Dose Admin Acetaminophen 650 mg 04/02/24 09:53 Acetaminophen 325 Mg Tablet PO Q6H PRN Mild Pain (1-5) Or Fever Hydrocodone Bitart/Acetaminophen 1 tab 04/02/24 09:53 04/06/24 21:30 Hydrocodone/Acetaminophen (*Crx) 5-325 Mg Tablet PO 1 tab Q6H PRN Administration Pain Rated 6 or Greater Atorvastatin Calcium 40 mg 04/03/24 09:00 04/08/24 08:36 Atorvastatin 40 Mg Tablet PO 40 mg DAILY PRERNA Administration Dextrose 12.5 gm 04/02/24 07:07 Dextrose 50% 25 Gm/50 Ml Syringe IV PUSH PRN PRN Hypoglycemia Protocol Glucagon 1 mg 04/02/24 07:07 Glucagon For Inj 1 Mg Vial IM PRN PRN Hypoglycemia Protocol Glucose 15 gm 04/02/24 07:07 Glucose Oral Gel 15 Gm Of Glucse In 37.5 Gm Tube PO PRN PRN Hypoglycemia Protocol Metronidazole 500 mg in 100 mls @ 100 mls/hr 04/02/24 14:00 04/08/24 13:28 Flagyl 500 Mg/Iso Soln 100 Ml IVPB 100 mls/hr Q8HR PRERNA Administration Dextrose 1,000 mls @ 100 mls/hr 04/02/24 07:07 Dextrose 5% 1,000 Ml IVPB PRN PRN Hypoglycemia Protocol Ceftriaxone Sodium 2 gm in 100 mls @ 200 mls/hr 04/03/24 15:00 04/08/24 14:49 Rocephin 2 Gm/Ns 100 Ml IVPB 200 mls/hr Q24H PRERNA Administration Vancomycin HCl 1,750 mg in 500 mls @ 250 mls/hr 04/07/24 05:00 04/08/24 05:13 Vancomycin 1,750 Mg/Ns 500 Ml IVPB 250 mls/hr Q24H PRERNA Administration Insulin Aspart 4 - 8 units 04/02/24 08:00 04/08/24 12:04 Insulin Aspart (*Bkc) 100 Units/Ml SUB-Q 4 units TIDWM PRERNA Administration Protocol Insulin Glargine 12 units 04/04/24 21:00 04/07/24 21:35 Insulin Glargine (*Bkc) 100 Units/Ml SUB-Q 12 units HS PRERNA Administration Miconazole Nitrate 1 applic 04/03/24 21:00 04/08/24 08:37 Miconazole Nitrate 2% Cream 30 Gm Tube TOPICAL 1 applic Q12HR PRERNA Administration Midodrine 5 mg 04/03/24 17:00 04/08/24 12:05 Midodrine Hcl 2.5 Mg Tablet PO 5 mg TID PRERNA Administration Multivitamins/Calcium 1 tablet 04/07/24 09:00 04/08/24 08:36 Therapeutic Multivitamins/Minerals Tab (*Bkc) PO 1 tablet DAILY PRERNA Administration Ondansetron HCl 4 mg 04/02/24 09:53 04/03/24 10:47 Ondansetron Inj 4 Mg/2 Ml Vial IV PUSH 4 mg Q6H PRN Administration Nausea And Vomiting Pantoprazole Sodium 40 mg 04/06/24 09:55 04/08/24 08:36 Pantoprazole 40 Mg Tablet PO 40 mg Q12HR PRERNA Administration Sodium Bicarbonate 650 mg 04/04/24 09:00 04/08/24 08:36 Sodium Bicarbonate Tab 650 Mg Tablet PO 650 mg BID PRERNA Administration Zinc Acetate/Diphenhydramine 1 applic 04/03/24 14:15 04/08/24 08:37 Diphenhydramine 1%/Zinc 0.1% Cream 30 Gm Tube TOPICAL 1 applic QID PRN Administration Itching Radiology Results: ITS Impressions Humerus X-Ray 04/01/24 21:37 IMPRESSION: 1. Comminuted three-part fracture of proximal right humerus. Head CT 04/01/24 21:47 IMPRESSION: 1. 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 2. Mild nonspecific cerebral white matter disease, which likely represents chronic small vessel ischemic disease. 3. Right-sided parotiditis. Cervical Spine CT 04/01/24 21:50 IMPRESSION: 1. No fracture. 2. Mild cervical spondylosis. 3. Right-sided parotiditis. 4. Mild bilateral cervical lymphadenopathy, likely reactive. Chest CT 04/01/24 21:56 IMPRESSION: 1. Small pericardial effusion. 2. Comminuted fracture of proximal right humerus. Abdomen/Pelvis CT 04/02/24 06:28 IMPRESSION: 1. Cystitis. 2. Thrombus in left ventricular apex of the heart. Labs Labs: Laboratory Results - last 24 hr 04/07/24 04/07/24 04/07/24 16:38 17:51 20:28 WBC 17.0 H RBC 3.35 L Hgb 10.1 L Hct 31.3 L MCV 93.4 MCH 30.1 MCHC 32.3 RDW 14.3 Plt Count 417 H MPV 9.4 Sodium Potassium Chloride Carbon Dioxide Anion Gap BUN Creatinine Estim Creat Clear Calc Estimated GFR Glucose POC Capillary Glucose 253 H 254 H Calcium Total Bilirubin AST ALT Alkaline Phosphatase Total Protein Albumin 04/08/24 04/08/24 04/08/24 08:08 08:10 11:42 WBC 14.7 H RBC 2.95 L Hgb 8.9 L Hct 27.7 L MCV 93.9 MCH 30.2 MCHC 32.1 RDW 14.3 Plt Count 410 H MPV 9.8 Sodium 138 Potassium 3.8 Chloride 113 H Carbon Dioxide 22 Anion Gap 3 L BUN 17 D Creatinine 0.90 Estim Creat Clear Calc 72 Estimated GFR > 60 Glucose 173 H POC Capillary Glucose 182 H 212 H Calcium 8.1 L Total Bilirubin 0.5 AST 21 ALT 8 Alkaline Phosphatase 74 Total Protein 7.0 Albumin 2.4 L 04/08/24 16:28 WBC RBC Hgb Hct MCV MCH MCHC RDW Plt Count MPV Sodium Potassium Chloride Carbon Dioxide Anion Gap BUN Creatinine Estim Creat Clear Calc Estimated GFR Glucose POC Capillary Glucose 259 H Calcium Total Bilirubin AST ALT Alkaline Phosphatase Total Protein Albumin
[2024-04-08 20:30] LABS: Glucose Point of Care 182 mg/dl (65-105)
[2024-04-08] MEDS: INSULIN GLARGINE (*BKC) 100 UNITS/ML 12 UNITS SUB-Q (21:11)
[2024-04-08 21:29] VITALS: BP 125/63; PULSE 72; RESP 16; TEMP 36.2; O2SAT 97
[2024-04-09] MEDS: metroNIDAZOLE 500 MG/ISO 100ML 500 MG/100 ML BAG 100 MG IVPB ×3 (05:01→21:53)
[2024-04-09 05:05] LABS: Basophils Absolute Auto 0.1 K/mm3 (0.0-0.1); Basophils Percent Auto 0.6 % (0.2-1.2); Eosinophils Absolute Auto 1.2 K/mm3 (0-0.3); Eosinophils Percent Auto 8.7 % (0-4.4); Hemoglobin 9.5 g/dL (12.0-15.0); Immature Granulocyte Absolute 0.15 K/mm3 (0.00-0.031); Immature Granulocyte Percent A 1.1 % (0-0.5); Lymphocytes Absolute Auto 2.96 K/mm3 (0.9-3.2); Lymphocytes Percent Auto 20.8 % (18.3-44.2); Mean Corpuscular HGB Conc 32.8 g/dl (32-36); Mean Corpuscular Hemoglobin 30.4 pg (26-34); Mean Corpuscular Volume 92.9 fl (80-100); Mean Platelet Volume 9.3 fl (7.4-10.4); Monocytes Absolute Auto 1.3 K/mm3 (0.1-0.6); Monocytes Percent Auto 8.9 % (2.6-8.5); Neutrophils Absolute Auto 8.5 K/mm3 (1.3-6.7); Neutrophils Percent Auto 59.9 % (45.5-73.1); Platelet Count Result 390 k/mm3 (150-375); Red Blood Count 3.12 M/mm3 (4.2-5.4); Red Cell Distribution Width 14.5 % (11.5-14.5); White Blood Count 14.2 K/mm3 (4.5-10.0)
--- OUTSIDE RECORDS SUMMARY | 2024-04-09 05:12 | XMS_ITS | Clinical Summary ---
Author Organization [facility] Address [address] [place] [address] Care Team Providers Care Plaster Block Layer Name Role Phone Unavailable Primary Care Provider Unavailabl e Allergies No known active allergies Medications glimepiride (AMARYL) 4 MG tablet Take 1 tablet (4 mg total) by mouth daily with breakfast. 30 tablet 8 Active metFORMIN (GLUCOPHAGE) 500 MG tablet Take 1 tablet (500 mg total) by mouth 2 (two) times a day with Breakfast and Dinner. 60 tablet 8 Active miconazole (ANTIFUNGAL) 2 % cream Apply topically 2 (two) times a day. 14 g 8 Active senna (SENOKOT) 8.6 MG tablet Take 1 tablet by mouth once a day. 0 8 Active aspirin 81 MG EC tablet Take 1 tablet (81 mg total) by mouth once a day. 0 8 Active Active Problems Problem Noted Date Diagnosed Date Essential hypertension 09/15/2017 Diabetes mellitus without me ntion of complication, type II or unspecified type, uncontrolled 09/15/2017 Hemiplegia affecting right dominant side 018 Dysarthria 09/15/2017 Dyslipidemia with high densi ty lipoprotein below reference range and triglyceride above reference range due to type 2 diabetes mellitus 09/15/2017 Multiple lacunar infarcts 09/15/2017 Morbid obesity 09/15/2017 Immunizations Name Administration Dates Next Due Influenza, Unspecified 09/15/2017(Deferred: Shannen ent Refused) Family History Medical History Relation Name Comments Heart disease Father No Known Problems Mother Relation Name Status Comments Father Mother Social History Tobacco Use Types Packs/Day Years Used Date Smoking Tobacco: Every Day Cigarettes 0.3 45 Started: 1980 Smokeless Tobacco: Never Tobacco Cessation:Ready to Q uit: Yes; Counseling Given: Yes Comments:offered nicotene patch, pt declined Alcohol Use Standard Drinks/Week Comments No 0 (1 standard drink = 0.6 oz pur e alcohol) Comments Unknown Sex and Gender Information Value Date Recorded Sex Assigned at Not on file Legal Sex Female 1:48 PM EDT Gender Identity Not on file Sexual Orientation Not on file Last Filed Vital Signs Vital Sign Reading Time Taken Comments Blood Pressure 124/71 10/10/2017 7:30 AM CDT Pulse 82 10/10/2017 7:30 AM CDT Temperature 36 ??C (96.8 ??F) 10/10/2017 7:30 AM CDT Respiratory Rate 18 10/10/2017 7:30 AM CDT Oxygen Saturation 94% 10/10/2017 7:30 AM CDT Inhaled Oxygen Concentration - - Weight 87.3 kg (192 lb 8 oz) 09/30/2017 6:00 AM CDT Height 167.6 cm (5' 6 ) 09/15/2017 8:07 PM CDT Body Mass Index 31.07 09/15/2017 8:07 PM CDT Plan of Treatment Not on file Advance Directives * Full Resuscitation (Latest Code Status on File) Date Activated Date Inactivated Comments 09/15/2017 8:36 PM 10/10/2017 2:38 PM
--- OUTSIDE RECORDS SUMMARY | 2024-04-09 05:12 | XMS_ITS | Data Portability ---
Author Organization [facility] Bryanna [facility] Address [address] [place] [address] Care Team Providers Care Insurance Salesperson Name Role Phone HYACINTH MUJICA Primary Care Provider Unavailabl e Assessment No assessment recorded. Plan of Treatment Reminders Order Date Submit Date Provider Last Modified By Organization Details Last Modified Time Details Appointments ANY 15 2024 11:00A Sera Gomez MD Not available Not available Not available Lab HbA1c (hemogl obin A1c), blood 2022 023 ANN In-Office Order, Internal Use Only DO Not Attach Compendium DO Not Attach Compendium, Do Not Delete/merge, [id number] 10/28/2022 09:22:03 HbA1c (hemogl obin A1c), blood 2022 023 [email or web address] In-Office Order, Internal Use Only DO Not Attach Compendium DO Not Attach Compendium, Do Not Delete/merge, [id number] 01/14/2023 14:43:42 CMP, serum or plasma 2022 023 [facility], [address], [address], [place], [address], 01/14/2023 14:43:58 CBC 2022 023 [facility], [facility] [address], [address], [place], [address], 01/14/2023 14:43:58 TSH, ultra-s ensitiv e, serum 2022 023 [facility], [address], [address], [place], [address], 01/14/2023 14:43:58 HbA1c (hemogl obin A1c), blood 2023 024 [facility] In-Office Order, Internal Use Only DO Not Attach Compendium DO Not Attach Compendium, Do Not Delete/merge, [id number] 04/20/2023 17:08:12 CMP, serum or plasma 2023 024 [facility], [address], [address], [place], [address], 04/20/2023 17:08:24 CBC 2023 024 [facility], [address], [address], [place], [address], 04/20/2023 17:08:24 urinaly sis, dipstic k 2023 024 ANN [facility], [address], [address], [place], [address], 04/20/2023 17:08:23 Referral home health referra l - PT 2022 023 [facility], [address] [facility], Andrea Gomez, [place], [address], 12/22/2022 14:50:12 ophthal mologis t referra l - diabete s 2023 024 [facility], [address], [place], [address], 07/06/2023 16:13:04 Procedures None recorde d. Surgeries None recorde d. Imaging None recorde d. Medication Orders Augment in 875 mg-125 mg tablet [address] [facility] #[id number], [address], [place], [place], [id number], 11/10/2022 15:00:54 aspirin 81 mg chewabl e tablet 2022 023 [facility] #82253, [address], [place], [place], [id number], 10/27/2022 17:10:48 atorvas tatin 40 mg tablet 2022 023 [facility] #79463, [address], [place], [place], [id number], 10/27/2022 17:10:50 insulin glargin e (U-100) 100 unit/mL (3 mL) subcuta neous pen 2022 023 [facility] #51677, [address], [place], [place], [id number], 11/26/2022 16:23:40 clotrim azole 1 % topical cream [address] [facility] #95294, [address], [place], [place], [id number], 11/10/2022 15:01:31 atorvas tatin 40 mg tablet 2022 023 [facility] #43037, [address], [place], [place], [id number], 11/10/2022 15:44:10 Lubride rm Daily Moistur e lotion 2022 023 [facility] #24448, [address], [place], [place], [id number], 11/10/2022 15:41:33 atorvas tatin 40 mg tablet 2022 023 [facility] #58033, [address], [place], [place], [id number], 01/14/2023 14:46:45 aspirin 81 mg chewabl e tablet 2022 023 [facility] #73289, [address], [place], [place], [id number], 01/14/2023 14:46:52 Lantus U-100 Insulin 100 unit/mL subcuta neous solutio n 2022 023 [facility] #04830, [address], [place], [place], [id number], 02/10/2023 10:19:26 OneTouc h Ultra Test strips 2022 023 [facility] #80364, [address] , [place], [place], [id number], 01/14/2023 14:46:52 metform in 850 mg tablet [address] [facility] #78051, [address], [place], [place], [id number], 04/20/2023 16:57:01 Lubride rm Daily Moistur e lotion 2022 023 [facility] #12487, [address], [place], [place], [id number], 01/14/2023 14:46:48 aspirin 81 mg chewabl e tablet 2023 024 [facility] #25928, [address], [place], [place], [id number], 04/20/2023 17:08:50 atorvas tatin 40 mg tablet 2023 024 [facility] #81468, [address], [place], [place], [id number], 04/20/2023 17:08:51 Lantus Solosta r U-100 Insulin 100 unit/mL (3 mL) subcuta neous pen 2023 [facility] #16893, [address], [place], [place], [id number], 04/20/2023 17:08:48 OneTouc h Ultra Test strips 2023 024 [facility] #56144, [address], [place], [place], [id number], 04/20/2023 17:08:51 Trulici ty 0.75 mg/0.5 mL subcuta neous pen injecto r 2023 024 [facility] #15281, [address], [place], [place], [id number], 04/20/2023 17:34:53 Patient TargetsNo targets recorded. 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 Referral for Type 2 diabetes mellitus diabetes Referring Physician: Family Ascencion Medina, Encounter Date: 04/20/2023 Results Created Date Observation Date Name Description Value Unit Range Abnormal Flag Note LastModifiedBy Organization Detail LastModifiedTime 10/29/19 23 10/28/2022 HbA1c (hemo globi n A1c), blood HbA1c 13.6 Not Available In-Office Order Internal Use Only DO Not Attach Compendium DO Not Attach Compendium, Do Not Delete/merge, [id number] 10/27/2022 17:29:49 01/15/20 23 01/14/2023 HbA1c (hemo globi n A1c), blood HbA1c 10.0 Not Available In-Office Order Internal Use Only DO Not Attach Compendium DO Not Attach Compendium, Do Not Delete/merge, [id number] 01/14/2023 14:16:13 04/20/19 24 04/20/2023 HbA1c (hemo globi n A1c), blood HbA1c 13.7 Not Available In-Office Order Internal Use Only DO Not Attach Compendium DO Not Attach Compendium, Do Not Delete/merge, [id number] 04/20/2023 16:53:38 07/18/19 24 07/17/2023 CT, angio gram, head, w/ contr ast No observ ation record ed. [address] [facility], [place], [address], 07/21/2023 09:51:13 01/18/20 24 01/18/2024 CT, chest + abdom en + pelvi s, w/o contr ast No observ ation record ed. [address] [place], [address], 01/25/2024 10:43:19 03/23/20 24 03/23/2024 XR, shoul aida No observ ation record ed. [facility] [address] [place], [address], 03/30/2024 10:25:29 Result Notes None recorded. Problems Name Problem SNOMED Code Status Onset Date Resolution Date Notes Provider Name and Address Organization Details Recorded Time Cerebrov ascular accident 620840643 Active 2017 Edrohit Bernstein PA-C Attn: Wiliamwilber mcnally,[address] [facility], [place], [address], [facility] 8 16:22:42 Pain in right arm 920218593 Active 2017 Gerardo Bernstein PA-C Attn: Accountwilber g,[address] [facility], [place], [address], [place] [facility] 8 12:45:21 On examinat ion - macules Active 2017 Gerardo Bernstein PA-C Attn: Accountwilber g,[address] [facility], [place], [address], [place] [facility] 8 11:24:12 Dehydrat ion 91076245 Active 2017 Gerardo Bernstein PA-C Attn: Accountin g,[address] [facility], [place], [address], [place] - [facility] 8 11:29:10 Tinea corporis 40157968 Active 2017 Gerardo Bernstein PA-C Attn: Accountwilber g,[address] [facility], [place], [address], [place] [facility] 8 11:33:56 Bladder muscle dysfunct ion - overacti ve Active 2017 Gerardo Bernstein PA-C Attn: Accountwilber mcnally,[address] [facility], [place], [address], [place] - [facility] 8 11:42:57 Acute urinary tract infectio n 417966545 Active 2017 Gerardo Bernstein PA-C Attn: Wiliamwilber g,[address] [facility], [place], [address], [place] - [facility] 8 18:23:17 Injury of shoulder region 923629300 Completed 201802/28/2020 Removal Reason: No longer injured Gerardo Bernstein PA-C Attn: Katharina g,[address] [facility], [place], [address], [place] - [facility] 0 11:46:19 Lacerati on of left forearm 61301753842 906350 Active 2018 Gerardo Bernstein PA-C Attn: Accountwilber g,[address] [facility], [place], [address], [place] [facility] 9 22:28:51 Plantar fasciiti s 757317958 Active 2018 Gerardo Bernstein PA-C Attn: Accountin g,[address] [facility], [place], [address], [place] [facility] 9 17:48:39 Pre-surg rhonda testing Active 2019 Gerardo Bernstein PA-C Attn: Accountin g,[address] [facility], [place], [address], [place] [facility] 0 10:24:16 Renal mass 951844179 Active 2020 right kidney Gerardo Bernstein PA-C Attn: Accountin g,[address] [facility], [place], [address], [place] [facility] 1 15:41:21 Disorder of vitamin B12 787666314 Active Gerardo Bernstein PA-C Attn: Accountin g,[address] [facility], [place], [address], [place] [facility] 6 16:17:58 Dyslipid emia 764723513 Active Gerardo Bernstein PA-C Attn: Accountin g,[address] [facility], [place], [address], [place] [facility] 6 16:17:58 Diabetes mellitus 87040248 Active Gerardo Bernstein PA-C Attn: Accountin g,[address] [facility], [place], [address], [place] [facility] 6 16:17:58 Syncope 718669584 Active Gerardo Bernstein PA-C Attn: Accountin g,[address] [facility], [place], [address], [place] [facility] 5 14:42:04 Obesity 938223648 Active Gerardo Bernstein PA-C Attn: Accountin g,[address] [facility], [place], [address], [place] [facility] 6 16:17:58 Vitamin D deficien cy 31005341 Active Gerardo Bernstein PA-C Attn: Accountin g,[address] [facility], [place], [place], [address] [place] [address] 2, [place] - [facility] 6 16:17:58 Strain of knee 19586878855 3 Active Gerardo Bernstein PA-C Attn: Accountin g,[address] [facility], [place], [address] [place] [address] 2, [place] [facility] 6 16:54:26 Bacteria l vaginosi s 916993104 Active Gerardo Bernstein PA-C Attn: Accountin g,[address] [facility], [place], [address] [place] [address] 2, [place] - [facility] 5 14:42:04 Knee pain Active Gerardo Bernstein PA-C Attn: Accountin g,[address] [facility], [place], [address] [place] [address] 2, [place] - [facility] 6 16:40:18 Contact dermatit is 37353110 Active Gerardo Bernstein PA-C Attn: Accountin g,[address] [facility], [place], [address], [place] [facility] 6 16:54:26 Rib pain 918463561 Active Gerardo Bernstein PA-C Attn: Accountin g,[address] [facility], [place], [address], [place] [facility] 6 16:40:18 Eruption 234034988 Active Gerardo Bernstein PA-C Attn: Accountin g,[address] [facility], [place], [address], [place] - [facility] 6 16:17:58 Problem Notes None recorded. Procedures Surgical History Date Name Laterality Status Provider Name and Address Organization Details Recorded Time 0 extraction of cataract completed Rafaela Mccrary MA [facility] 02/28/2020 11:15:24 0 extraction of cataract completed Rafaela Mccrary MA [facility] 02/28/2020 11:15:17 9 Suture/Staple removal completed Gerardo Bernstein PA-C Attn: Accounting,[address], [place], [address], [place] [facility] 07/21/2018 22:31:56 TURP completed Josefina Finley [place] - [facility] 06/20/2014 12:23:19 Imaging Results Imaging Date Name Status LastModified by Organiz ation Details LastModified Time 07/17/2023 CT, angiogram, head, w/ contrast completed [address], [place], [address], 07/21/2023 09:51:13 01/18/2024 CT, chest + abdomen + pelvis, w/o contrast completed [address] [place], [address], 01/25/2024 10:43:19 03/23/2024 XR, shoulder active [facility] [address] [place], [address], 03/30/2024 10:25:29 Procedure Notes None recorded. Medical Equipment None Reported. Allergies No known drug allergies Medications Name Sig Start Date Stop Date Status Note LastModified by Organization Details LastModified Time Prescript ion - Prior Authoriza tion Request 05/19 completed Not Available Not Available Not Available cyclobenz aprine 10 mg tablet TAKE 1 TABLET BY MOUTH ONCE DAILY AT BEDTIME FOR 30 DAYS 02/27 completed Not Available Not Available Not Available atorvasta tin 40 mg tablet TAKE 1 TABLET BY MOUTH NIGHTLY 2023 active Not Available Not Available Not Avai lable metformin 500 mg tablet TAKE 1 TABLET BY MOUTH IN THE MORNING THEN TAKE 2 TABLETS BY MOUTH IN THE EVENING BEFORE SUPPER 10/27 completed Not Available Not Available Not Available doxycycli ne hyclate 100 mg capsule TAKE 1 CAPSULE BY MOUTH TWICE DAILY 01/14 completed Not Available Not Available Not Available atorvasta tin 20 mg tablet Take 1 tablet every day by oral route in the morning for 30 days. 04/18/ 2017 01/09 /2019 completed Not Available Not Available Not Available azithromy kierra 250 mg tablet TAKE 2 TABLETS (500 MG) BY ORAL ROUTE ONCE DAILY FOR 1 DAY THEN 1 TABLET (250 MG) BY ORAL ROUTE ONCE DAILY FOR 4 DAYS 10/15 completed Not Available Not Available Not Available prednison e 20 mg tablet Take 2 tablets twice a day by oral route as directed for 2 days. 03/11 completed Not Available Not Available Not Available metformin 850 mg tablet TAKE 1 TABLET BY MOUTH TWICE DAILY active Not Available Not Available No t Available Lantus U-100 Insulin 100 unit/mL subcutane ous solution INJECT 15 UNITS SUBCUTAN EOUSLY ONCE DAILY AT BEDTIME 2022 active Not Available Not Available Not Avai lable pioglitaz one 45 mg tablet TAKE 1 TABLET BY MOUTH ONCE DAILY 07/26 completed hypoglyc emia Not Available Not Available Not Available metronida zole 500 mg tablet Take 1 tablet twice a day by oral route for 7 days. 03/11 completed Not Available Not Available Not Available clopidogr el 75 mg tablet TAKE 1 TABLET BY MOUTH EVERY MORNING active Not Available Not Available No t Available sulfameth oxazole 800 mg-trimet hoprim 160 mg tablet Take 1 tablet every 12 hours by oral route for 10 days. 04/21 completed Not Available Not Available Not Available glimepiri de 2 mg tablet TAKE 1 TABLET BY MOUTH IN THE MORNING FOR 30 DAYS 10/27 completed Not Available Not Available Not Available terbinafi ne HCl 250 mg tablet Take 1 tablet every day by oral route for 14 days. 04/21 completed Not Available Not Available Not Available OneTouch Ultra Test strips check fasting glucose daily active Not Available Not Available No t Available hydrocodo ne 7.5 mg-acetam inophen 325 mg tablet Take 1 tablet every 6 hours by oral route. 03/11 completed Not Available Not Available Not Available cyanocoba ricarda (vit B-12) 1,000 mcg/mL injection solution Inject 1000 microgra ms every month by intramus cular route. 03/11 completed Not Available Not Available Not Available triamcino lone acetonide 0.1 % topical ointment APPLY A THIN LAYER TO THE AFFECTED AREA(S) BY TOPICAL ROUTE 2 TIMES PER DAY 03/11 completed Not Available Not Available Not Available glimepiri de 4 mg tablet TAKE ONE TABLET BY MOUTH ONCE DAILY 03/11 completed Not Available Not Available Not Available ibuprofen 200 mg tablet Take 1 tablet every 6 hours by oral route for 30 days. 05/19 completed Not Available Not Available Not Available aspirin 81 mg chewable tablet Chew 1 tablet every day by oral route. 2023 active Not Available Not Available Not Avai lable alcohol swabs Apply 1 pad every day by topical route for 30 days. 10/27 completed Not Available Not Available Not Available cefdinir 300 mg capsule TAKE 1 CAPSULE BY MOUTH TWICE DAILY 10/27 completed Not Available Not Available Not Available metformin ER 500 mg tablet,ex tended release 24 hr TAKE 1 TABLET BY MOUTH IN THE EVENING WITH A MEAL 04/20 completed Not Available Not Available Not Available clotrimaz ole 1 % topical cream APPLY EXTERNAL LY TO THE AFFECTED AREA ON LEFT ARM TWICE DAILY FOR 2 WEEKS 11/10 completed Not Available Not Available Not Available naproxen 500 mg tablet Take 1 tablet twice a day by oral route with meals for 30 days. 02/27 completed Not Available Not Available Not Available griseoful clarice ultramicr osize 250 mg tablet TAKE 1 TABLET BY MOUTH TWICE DAILY FOR 14 DAYS 05/19 completed Not Available Not Available Not Available amoxicill in 875 mg-potass ium clavulana te 125 mg tablet TAKE 1 TABLET BY MOUTH TWICE DAILY active Not Available Not Available No t Available Vesicare 5 mg tablet TAKE 1 TABLET BY MOUTH ONCE DAILY FOR 30 DAYS 04/21 completed Not Available Not Available Not Available glimepiri de 03/11 completed Not Available Not Available Not Available Januvia 100 mg tablet TAKE 1 TABLET BY MOUTH ONCE DAILY IN THE MORNING FOR 30 DAYS 10/27 completed Not Available Not Available Not Available Lant Solmaliaar U-100 Insulin 100 unit/mL (3 mL) subcutane ous pen ADMINIST ER 15 UNITS UNDER THE SKIN AT BEDTIME 2023 active Not Available Not Available Not Avai lable diclofena c 1 % topical gel APPLY 2 GRAMS TO THE AFFECTED AREA(S) RUB INTO THE RIGHT UPPER ARM FOUR TIMES DAILY 02/27 completed Not Available Not Available Not Available Tradjenta 5 mg tablet TAKE ONE TABLET BY MOUTH ONCE DAILY IN THE MORNING 04/21 completed Not Available Not Available Not Available TRUEplus Insulin 1 mL 31 gauge x 5/16 syringe USE SYRINGE ONCE DAILY DIRECTED 10/27 completed Not Available Not Available Not Available Lubriderm Daily Moisture lotion apply BID to affected area 2022 active Not Available Not Available Not Avai lable Jardiance 25 mg tablet TAKE 1 TABLET BY MOUTH ONCE DAILY IN THE MORNING FOR 30 DAYS 10/27 completed Not Available Not Available Not Available Trulicity 0.75 mg/0.5 mL subcutane ous pen injector .75 mg subcu q week 2023 active Not Available Not Available Not Avai lable TRUEplus Pen Needle 31 gauge x 5/16 USE DIRECTED active Not Available Not Available No t Available Vitals Date Recorded Body height Oxygen saturation Oxygen saturation in Arterial blood by Pulse oximetry Heart rate Systolic blood pressure Diastolic blood pressure Provider Name and Address Organization Details Last Updated DateTime 3 170.18 cm 94 % 94 % 84 /min 133 mm[Hg] 77 mm[Hg] Roxanne Clay MA [facility] 3 16:21:31 Date Recorded Body height Oxygen saturation Oxygen saturation in Arterial blood by Pulse oximetry Heart rate Systolic blood pressure Diastolic blood pressure Provider Name and Address Organization Details Last Updated DateTime 3 170.18 cm 94 % 94 % 77 /min 128 mm[Hg] 80 mm[Hg] Roxanne Clay MA [facility] 3 14:46:56 Date Recorded Body height Body mass index (BMI) Body weight Oxygen saturation Oxygen saturation in Arterial blood by Pulse oximetry Heart rate Systolic blood pressure Diastolic blood pressure Provider Name and Address Organization Details Last Updated DateTime 3 170.18 cm 27.3 kg/m2 02688.0 7 g 96 % 96 % 73 /min 114 mm[Hg] 68 mm[Hg] Roxanne Clay MA [facility] 3 14:06:02 Date Recorded Body height Body mass index (BMI) Body weight Oxygen saturation Oxygen saturation in Arterial blood by Pulse oximetry Heart rate Systolic blood pressure Diastolic blood pressure Provider Name and Address Organization Details Last Updated DateTime 4 170.18 cm 30.4 kg/m2 48198.9 2 g 98 % 98 % 88 /min 118 mm[Hg] 78 mm[Hg] Roxanne Clay MA [facility] 4 16:21:01 Date Recorded Body height Body temperature Body mass index (BMI) Body weight Heart rate Systolic blood pressure Diastolic blood pressure Provider Name and Address Organization Details Last Updated DateTime 4 170.18 cm 97.9 [degF] 29.3 kg/m2 07395.4 9 g 85 /min 150 mm[Hg] 83 mm[Hg] Maria Alejandra Moses [place] [facility] 4 12:25:37 Social History Question Answer Notes LastModified by [email or web address] ion Details LastModified Time Tobacco Smoking Status Current Every Day Smoker every once in a while Roxanne Clay MA [facility], [place] - [facility] 01/14/2023 14:03:04 Do You Have An Advance Directive? No Information not available 06/18/2023 Are You Blind Or Do You Have Difficulty Seeing? No Information not available 06/20/2014 How Much Tobacco Do You Chew? None Information not available 06/20/2014 In The 14 Days Before Symptom Onset, Have You Had Close Contact With A Laboratory-confir med COVID-19 While That Case Was Ill? No Information not available 06/18/2023 In The 14 Days Before Symptom Onset, Have You Had Close Contact With A Person Who Is Under Investigation For COVID-19 While That Person Was Ill? No Information not available 06/18/2023 Have You Been To An Area Known To Be High Risk For COVID-19? No Information not available 06/18/2023 Are You Currently Employed? No Information not available 06/28/2020 Are You Deaf Or Do You Have Serious Difficulty Hearing? No Information not available 06/20/2014 What Type Of Diet Are You Following? REGULAR Information not available 06/20/2014 Are There Any Guns Present In Your Home? No Information not available 06/28/2020 Hard Of Hearing Or Deaf In One Or Both Ears? No Information not available 06/20/2014 Legally Blind In One Or Both Eyes? No Information no t available 06/20/2014 Marital Status Informatio n not available 06/20/2014 Do You Have A Medical Power Of Foreign Broadcast Specialist? No Information not available 06/18/2023 What Was The Date Of Your Most Recent Tobacco Screening? 06/18/2023 Information not available 06/18/2023 What Is Your Relationship Status? Information not available 06/28/2020 Do You Use Your Seat Belt Or Car Seat Routinely? Yes Information not available 06/28/2020 Do You Have Smoke And Carbon Monoxide Detectors In Your Home? Yes Information not available 06/28/2020 Are You Passively Exposed To Smoke? No Information no t available 06/28/2020 How Much Tobacco Do You Smoke? No Information not available 08/28/2020 General Stress Level Low Information not available 06/20/2014 Do You Feel Stressed (tense, Restless, Nervous, Or Anxious, Or Unable To Sleep At Night)? [id number] Information not available 06/28/2020 Do You Use Sunscreen Routinely? No Information not available 06/28/2020 On What Date Was Tobacco Cessation Counseling Provided? 06/18/2023 Information not available 06/18/2023 Sex: Female Functional Status Question Answer Note LastModified by Organization D etails LastModified Time Do you have difficulty walking or climbing stairs? Yes Information not available 06/20/2014 Do you have difficulty doing errands alone? Yes Information not available 06/20/2014 Are you able to care for yourself? Yes Information n ot available 06/28/2020 Do you have difficulty dressing or bathing? Yes Information not available 06/20/2014 What is your exercise level? None Information not available 06/20/2014 Mental Status None recorded. Family History Relationship Description Onset Age of this Age Resolved Age Notes LastModified by Organization Details LastModified Time Mother Heart disease Not available 2014 14:09:26 Mother Hypertensive disorder Not available 2014 14:09:26 Father Heart disease Not available 2014 14:09:26 Father Hypertensive disorder Not available 2014 14:09:26 Medical History Condition Response Coronary Artery Disease N Atrial Fibrillation N High Blood Pressure N Kidney or Bladder Problems N Thyroid Problems N GI Problems N Depression N COPD N Blood Clots N Skin Problems Y Anemia N Heart Attack ([place]) N Diabetes Y Anxiety Disorder N Muscle, Joint, or Bone Problems N Seizures/Epilepsy N Acid Reflux (GERD) N Cancer N Stroke Y Asthma N Allergies N High Cholesterol N Hepatitis N Liver Disease N Headaches N Osteoporosis N Heart Failure N Gynecological HistoryNo gynecological history recorded. Obstetrics History GPAL:G 0 P 0 0 0 0 Past Encounters Encounter ID Performer Location Encounter Start Date Encounter Closed Date Diagnosis/Indication Diagnosis SNOMED-CT Code Diagnosis ICD10 Code [id number] JUDD Qureshi (Adult Med) [address] [place] [address] 06/20/2014 11:31:13 06/20/2014 13:00:44 Strain of knee 1962001906 03 Diabetes mellitus 689678 09 Disorder o f vitamin B12 644411395 Dyslipidemia 824720903 Obesity 614176400 Syncope 749532690 Vitamin D deficiency 347 63690 [id number] NESSA Kendall (Adult Med) [address] [place] [address] 11/14/2014 13:41:46 11/14/2014 14:48:01 Strain of knee 9546922730 03 Obesity 502228631 Syncope 077027682 Dyslipidemia 101790265 Disorder o f vitamin B12 931316577 Diabetes mellitus 407393 09 Vitamin D deficiency 347 88560 Bacterial vaginosis 4197 73498 [id number] JUDD Qureshi (Adult Med) [address] [place] [address] 03/05/2015 16:09:26 03/05/2015 16:43:04 Knee pain 54326877 M25.561 Disorder o f vitamin B12 362983894 D51.1 Diabetes mellitus 233867 09 E11.9 Dyslipidemia 736441631 E 78.5 Obesity 841580993 E66.9 Vitamin D deficiency 347 49946 E55.9 [id number] Tania Osman Jaren (Adult Med) [address] [place] [address] 0 05/04/2015 15:43:17 05/04/2015 16:34:17 Dyslipidemia 674582627 E78.5 Diabetes mellitus 006953 09 E11.9 Disorder o f vitamin B12 344901144 D51.1 Knee pain 14168043 M25.5 61 [id number] JUDD Qureshi (Adult Med) [address] [place] [address]29[address]061 0 07/06/2015 15:59:46 07/06/2015 16:56:21 Knee pain 70248927 M25.561 Diabetes mellitus 336864 09 E11.9 Disorder o f vitamin B12 836779316 D51.1 Dyslipidemia 941159817 E 78.5 Obesity 696405885 E66.9 Strain of knee 572867884 1 03 S86.919D Vitamin D deficiency 347 32930 E55.9 Contact dermatitis 74468 004 L25.9 [id number] JUDD Qureshi (Adult Med) [address] [place] [address]236 0 10/09/2015 16:08:10 10/09/2015 18:18:36 Diabetes mellitus 46921050 E11.9 Disorder o f vitamin B12 146017312 D51.1 Dyslipidemia 739152490 E 78.5 Knee pain 09271288 M25.5 61 Obesity 708362137 E66.9 Vitamin D deficiency 347 34802 E55.9 Rib pain 723338980 R07.8 1 [id number] JUDD Qureshi (Adult Med) [address] [place] [address]669 0 01/01/2016 15:39:31 01/01/2016 16:14:34 Diabetes mellitus 13160702 E11.9 Disorder o f vitamin B12 888788757 D51.1 Dyslipidemia 552764846 E 78.5 Obesity 155612430 E66.9 Vitamin D deficiency 347 47803 E55.9 Eruption 808630287 R21 [id number] JUDD Qureshi (Adult Med) [address] [place] [address] 69948-574 0 03/11/2016 15:52:19 03/11/2016 18:29:14 Diabetes mellitus 72775928 E11.9 Disorder o f vitamin B12 011826625 D51.1 Vitamin D deficiency 347 14083 E55.9 Obesity 018711097 E66.9 Dyslipidemia 450353426 E 78.5 [id number] JUDD Qureshi (Adult Med) [address] [place] [address]395 0 06/05/2016 16:18:14 06/05/2016 17:00:44 Diabetes mellitus 42779719 E11.9 Hyperlipidemia 91561228 E78.5 Acute maxi llary sinusitis 70793496 J01.00 [id number] JUDD Qureshi (Adult Med) [address] [place] [address]81-808 0 07/29/2016 16:05:59 07/29/2016 17:06:46 Diabetes mellitus 09799749 E11.9 Disorder o f vitamin B12 267691533 D51.1 Dyslipidemia 014209516 E 78.5 Vitamin D deficiency 347 57146 E55.9 [id number] JUDD Qureshi (Adult Med) [address] [place] [address] 93582-838 0 12/24/2016 11:27:49 12/25/2016 11:36:18 Diabetes mellitus 24323952 E11.9 Obesity 643837701 E66.9 Disorder o f vitamin B12 026830287 D51.1 Dyslipidemia 984001094 E 78.5 Vitamin D deficiency 347 97775 E55.9 Knee pain 98652175 M25.5 61 [id number] JUDD Qureshi (Adult Med) [address] [place] [address] 17641-102 0 10/15/2017 15:21:16 10/15/2017 16:31:20 Dyslipidemia 623361816 E78.5 Cerebrovas cular accident 596158601 I63.9 Diabetes mellitus 283913 09 E11.9 Obesity 287312065 E66.9 [id number] JUDD Qureshi (Adult Med) [address] [place] [address] 45486-533 0 12/22/2017 10:50:22 12/22/2017 12:50:24 Diabetes mellitus 34128178 E11.9 Pain in right arm 379384 004 M79.601 Vitamin D deficiency 347 92805 E55.9 Dyslipidemia 451618758 E 78.5 Obesity 574727476 E66.9 [id number] JUDD Qureshi (Adult Med) [address] [place] [address] 37457-079 0 02/23/2018 10:33:42 02/23/2018 11:33:18 Diabetes mellitus 45493147 E11.9 On examina tion - macules 894250548 R21 Dehydration 78638815 E86 .0 Vitamin D deficiency 347 25248 E55.9 Dyslipidemia 653161852 E 78.5 Disorder o f vitamin B12 368162764 D51.1 Obesity 303745842 E66.9 [id number] JUDD Qureshi (Adult Med) [address] [place] [address] 21492-993 0 03/23/2018 10:15:50 03/23/2018 12:09:06 Tinea corporis 61997624 B35.4 Diabetes mellitus 111015 09 E11.9 Bladder mu scle dysfunction - overactive 956176001 N32.81 Cerebrovas cular accident 657207188 I63.9 Vitamin D deficiency 347 25265 E55.9 Dyslipidemia 841144701 E 78.5 Disorder o f vitamin B12 485428956 D51.1 Obesity 238701045 E66.9 [id number] JUDD Qureshi (Adult Med) [address] [place] [address] 24293[address]769 0 04/21/2018 09:09:18 04/21/2018 10:07:25 Tinea corporis 97927977 B35.4 Injury of shoulder region 028688936 S49.91XA Diabetes mellitus 715509 09 E11.9 Knee pain 42715784 M25.5 61 Pain in right arm 368353 004 M79.601 Dyslipidemia 254075210 E 78.5 Vitamin D deficiency 347 51748 E55.9 Cerebrovas cular accident 250086417 I63.9 Bladder mu scle dysfunction - overactive 494465166 N32.81 [id number] Leyla Wu [facility] FP (ANDREA 104) [address] [place] [address]30[address]735 2 05/05/2018 12:43:42 05/06/2018 08:18:26 Granuloma annulare 11572332 L92.0 [id number] JUDD Qureshi (Adult Med) [address] [place] [address] 21009-419 0 05/19/2018 10:04:07 05/19/2018 11:03:36 Injury of shoulder region 289848321 S49.91XA Diabetes mellitus 564421 09 E11.9 Cerebrovas cular accident 188023107 I63.9 Bladder mu scle dysfunction - overactive 097372997 N32.81 Vitamin D deficiency 347 06734 E55.9 Dyslipidemia 985171484 E 78.5 Obesity 371081054 E66.9 [id number] JUDD Qureshi (Adult Med) [address] [place] [address] 04379-572 0 07/01/2018 10:50:45 07/01/2018 11:51:13 Diabetes mellitus 97624468 E11.9 Cerebrovas cular accident 987619082 I63.9 Vitamin D deficiency 347 59805 E55.9 Dyslipidemia 026883224 E 78.5 Disorder o f vitamin B12 763299470 D51.1 Obesity 939756132 E66.9 Injury of shoulder region 896377179 S49.91XA [id number] JUDD Qureshi (Adult Med) [address] [place] [address] 99127-565 0 07/16/2018 15:38:37 07/22/2018 09:14:10 Laceration of left forearm 0696930198 4140510 S51.812D [id number] JUDD Qureshi (Adult Med) [address] [place] [address] 33634-038 0 12/23/2018 10:14:43 12/24/2018 15:54:33 Injury of shoulder region 429699824 S49.91XA Diabetes mellitus 382927 09 E11.9 Type 2 velia betes mellitus 68662365 E11.9 Dyslipidemia 032544613 E 78.5 Vitamin D deficiency 347 57303 E55.9 Disorder o f vitamin B12 186792684 D51.1 Obesity 829420634 E66.9 Cerebrovas cular accident 977025107 I63.9 Plantar fasciitis 048371 003 M72.2 [id number] JUDD Qureshi (Adult Med) [address] [place] [address] 87495-187 0 09/15/2019 08:27:14 09/15/2019 15:13:05 Diabetes mellitus 06936800 E11.9 [id number] JUDD Qureshi (Adult Med) [address] [place] [address] 71077-029 0 10/17/2019 16:23:56 10/18/2019 12:50:24 Vitamin D deficiency 88172513 E55.9 Diabetes mellitus 046023 09 E11.9 [id number] JUDD Qureshi (Adult Med) [address] [place] [address] 67258-613 0 11/29/2019 08:18:59 11/29/2019 15:25:03 Type 2 diabetes mellitus 74344147 E11.9 Cerebrovas cular accident 473213717 I63.9 Dyslipidemia 867647121 E 78.5 Vitamin D deficiency 347 98662 E55.9 Diabetes mellitus 771948 09 E11.9 Obesity 974035636 E66.9 [id number] JUDD Qureshi (Adult Med) [address] [place] [address] 87046-437 0 11/30/2019 11:15:56 11/30/2019 12:06:15 Diabetes mellitus 62341630 E11.9 Type 2 velia betes mellitus 04135243 E11.9 [id number] JUDD Qureshi (Adult Med) [address] [place] [address] 08912-273 0 12/30/2019 14:47:07 12/30/2019 15:44:49 Diabetes mellitus 36375550 E11.9 Dyslipidemia 683383872 E 78.5 Obesity 353528756 E66.9 Vitamin D deficiency 347 85550 E55.9 [id number] JUDD Qureshi (Adult Med) [address] [place] [address] 48962-375 0 02/28/2020 11:10:31 02/28/2020 11:49:01 Dyslipidemia 994234025 E78.5 Diabetes mellitus 659546 09 E11.9 Cerebrovas cular accident 958866357 I63.9 Disorder o f vitamin B12 577545838 D51.1 Vitamin D deficiency 347 55213 E55.9 [id number] JUDD Qureshi (Adult Med) [address] [place] [address] 81725-898 0 05/01/2020 10:28:52 05/02/2020 11:21:52 Type 2 diabetes mellitus 35686127 E11.9 Diabetes mellitus 268940 09 E11.9 Dyslipidemia 203419715 E 78.5 Cerebrovas cular accident 214740309 I63.9 Vitamin D deficiency 347 02117 E55.9 [id number] JUDD Qureshi (Adult Med) [address] [place] [address] 91793-754 0 06/28/2020 08:51:30 06/28/2020 16:38:08 Diabetes mellitus 82311760 E11.9 Cerebrovas cular accident 225251130 I63.9 Disorder o f vitamin B12 698497476 D51.1 Dyslipidemia 982237190 E 78.5 Obesity 414494346 E66.9 Vitamin D deficiency 347 82591 E55.9 [id number] JUDD Qureshi (Adult Med) [address] [place] [address] 43789-058 0 07/26/2020 08:39:52 07/26/2020 16:10:03 Renal mass 031944232 N28.89 Diabetes mellitus 293826 09 E11.9 Cerebrovas cular accident 600758739 I63.9 Disorder o f vitamin B12 989112102 D51.1 Dyslipidemia 455279893 E 78.5 Vitamin D deficiency 347 29167 E55.9 [id number] JUDD Qureshi (Adult Med) [address] [place] [address] 81019-953 0 08/28/2020 11:26:38 08/28/2020 12:45:00 Dehydration 16456788 E86.0 Type 2 velia betes mellitus 65150437 E11.9 Diabetes mellitus 623215 09 E11.9 Cerebrovas cular accident 353779057 I63.9 Renal mass 840729167 N28 .89 Vitamin D deficiency 347 23963 E55.9 Dyslipidemia 122721371 E 78.5 Disorder o f vitamin B12 829399624 D51.1 [id number] MD Jaren Medina (Adult Med) [address] [place] [address] 30673-904 0 10/27/2022 16:08:52 11/03/2022 17:07:58 Cerebrovascular accident 359566402 I63.9 Localized eruption of skin 910218236 R21 Abscess 856690066 L02.91 Type 2 velia betes mellitus 98667200 E11.9 [id number] MD Jaren Medina (Adult Med) [address] [place] [address] 46992-064 0 11/10/2022 14:09:41 11/11/2022 16:23:52 Cerebrovascular accident 778746874 I63.9 Type 2 velia betes mellitus 28466782 E11.9 Acute dermatitis 5530214 6 L30.9 Abscess 137733211 L02.91 Adjustment disorder with depressed mood 66454893 F43.21 [id number] MD Jaren Medina (Adult Med) [address] [place] [address] 48691-108 0 01/14/2023 13:47:11 01/20/2023 11:36:38 Cerebrovascular accident 060214009 I63.9 Type 2 velia betes mellitus 66048563 E11.9 Acute dermatitis 7639015 6 L30.9 [id number] MD Jaren Medina (Adult Med) [address] [place] [address] 59739-845 0 04/20/2023 15:59:12 04/22/2023 16:22:42 Cerebrovascular accident 727922992 I63.9 Type 2 velia betes mellitus 93648253 E11.9 Nicotine user 811115072 Z72.0 [id number] Luke Gomez MD [facility] [address] [place] [address] 06/18/2023 11:53:49 06/19/2023 13:53:18 Presbyopia 26343361 H52.4 Type 2 velia betes mellitus without complication 223421183 E11.9 After-analisa ract not obscuring vision following extraction of cataract 13475125 H26.492 Health Concerns Section Related Observation LastModified by Organization Detai ls LastModified Time None Recorded Concern Status LastModified by Organization Details LastModified Time None Recorded Advance Directives Directive N: Payers Encounter Date Sequence Insurance Name Policy Number Policy Bennett Covered Member ID Bennett Member ID Guarantor Name 10/27/2022 1 [facility] PRIOR TO 10/11/2020 (MEDICAID REPLACEMENT - HMO) Maria Nolasco [id number] Maria Long 11/10/2022 1 [facility] ON OR AFTER 10/11/20 (MEDICAID REPLACEMENT - HMO) Maria Long [id number] Maria Long 01/14/2023 1 [facility] ON OR AFTER 10/11/20 (MEDICAID REPLACEMENT - HMO) Maria Long [id number] Maria Long 04/20/2023 1 [facility] ON OR AFTER 10/11/20 (MEDICAID REPLACEMENT - HMO) Maria Long [id number] Maria Long 06/18/2023 1 [facility] ON OR AFTER 10/11/20 (MEDICAID REPLACEMENT - HMO) Maria Long [id number] Maria Long Notes Date Note Type Note Provider Name and Address Organization Details Recorded Time 10/27/2022 text/html follow up ER vis it, was diagnosed with CVA, left leg and arm went numb, no weakness, happened Thursday night, admitted to [facility], did an MRI of head, second stroke, five years ago had first stroke, no lasting symptoms, diabetes was well controlled, stopped medication two years ago, glucose was in the 400s this morning, physical therapy supposed to be coming to the house, has follow up with transitional care team tomorrow, has follow up with neurology in November, Hyacinth Mujica MD Attn: Accounting, [address] , [place], [address], [facility] 11/10/2022 18:02:53 11/10/2022 text/html 1.) discharged f [facility] October 31 for abscess, has follow up with General Surgeon later this week, 2.) did not see Neurologist yet for follow up, appointment is November 28, still taking aspirin daily and cholesterol medicine, has not started any PT yet 3.) continuing on insulin, doing ten units of insulin at night, brings in acu checks, needs glucose strips, 5.) left arm red, used antifungal for two weeks now, itches at night, 6.) has been feeling down, no thought of hurting herself, wondering about anti-depressant medication, Hyacinth Mujica MD Attn: Accounting[address] , [place], [address], [facility] 11/11/2022 15:12:03 01/14/2023 text/html released from [facility] PT, when started Metformin it helped bring sugar down some, started it in November, it is not causing any GI issues, taking insulin at night 15 units, yesterday for dinner had pizza, this morning had diarrhea, otherwise normal bowel movements, no abdominal pain, no increased urinary frequency or increased thirst, not sure how to manage diabetic diet, did not see neurologist, was unable to get a ride, physical therapy helped strength, walks better, able to get up, has been able to get out some, going on walks, goes to store, getting some dominique out of things, feeling better, CVA affected left side Hyacinth Mujica MD Attn: Accounting[address] , [place], [address], [facility] 01/14/2023 17:37:35 04/20/2023 text/html patient stopped taking blood sugar because couldn't tolerate Metformin, now is not taking any of her diabetic medication, Metformin was causing diarrhea, stopped Metformin, not taking insulin, ran out of that a month back, needs pens, has never taken anything else for diabetes, no problems today, at home uses the cane, steady with the cane without instability, could never get a ride to see neurologist, has difficulty getting transportation, needs cholesterol medication, last eye appointment 2020, checking feet every day, no numbness or pain with feet, no sores on feet, Hyacinth Mujica MD Attn: Accounting[address] [facility], [place], [address], [facility] 04/21/2023 09:33:47 06/18/2023 text/html Blurred vision , DM , Hyperlipidemia Luke Gomez MD [address], [place], [address], [facility] 06/18/2023 13:27:57 OBGyn Episode No OBEpisode recorded.
--- OUTSIDE RECORDS SUMMARY | 2024-04-09 05:13 | XMS_ITS | Referral Summary ---
Author Organization [facility] Address [address] [place] [address] Care Team Providers Care Binding Cutter Synthetic Cloth Name Role Phone Unavailable Primary Care Provider Unavailabl e Source Comments [facility],non-owned Affiliates and Associated Physician Practices is amultiple site organization consisting of ambulatory clinics and hospital sitesin [place], [place], [place] and [place]. This disclosure is being madepursuant to the Care Everywhere program and may not contain all information available regarding this patient. Last updated 18.[facility] Allergies No known active allergies Medications * Be aware that medications may not be up to date on this document. Alwaysverify current medications with the patient. Medication Sig Dispensed Refills Start Date End Date Status clotrimazole (LOTRIMIN AF) 1 % cream Apply to affected area 2 times daily 09/15/2017 Active aspirin (Aspirin) 81 MG chew tablet Take 1 (one) tablet by mouth once daily 30 tablet 3 10/25/2022 Active atorvastatin (Lipitor) 40 MG tablet Take 1 (one) tablet by mouth at bedtime 30 tablet 3 10/24/2022 Active Additional Information Patient not taking.Reported on 10/28/2022 amoxicillin-clavu lanate (Augmentin) 875-125 MG tablet Take 1 (one) tablet by mouth 2 times daily with morning and evening meal Active Cinnamon 500 MG Active insulin glargine (Lantus/Semglee) 100 units/mL pen Inject 10 (ten) Units subcutaneously at bedtime Active Active Problems Problem Noted Date Diagnosed Date Diabetes 10/23/2022 Left arm weakness 10/22/2022 Cerebrovascular accident (CVA), unspecified mech anism 10/22/2022 Facial droop due to acute stroke 10/22/2022 Cerebrovascular accident (CV A) due to occlusion of cerebral artery 09/12/2017 Immunizations Name Administration Dates Next Due PNEUMOCOCCAL PCV20 CONJ VAC IM 10/28/2022 TDAP (7yrs+) 10/28/2022 Zoster Hzv Vacc Recombinant Inj Im 10/28/2022 Social History Tobacco Use Types Packs/Day Years Used Date Smoking Tobacco: Every Day Cigarettes 0.5 45 Started: 1980 Smokeless Tobacco: Never Tobacco Cessation:Ready to Q uit: Not Asked; Counseling Given: Not Answered Comments:Smokes some days Alcohol Use Standard Drinks/Week Comments No 0 (1 standard drink = 0.6 oz pur e alcohol) PHQ-2 Answer Date Recorded PHQ2 TOTAL SCORE 1 10/28/2022 Sex and Gender Information Value Date Recorded Sex Assigned at Not on file Gender Identity Not on file Sexual Orientation Not on file Last Filed Vital Signs Vital Sign Reading Time Taken Comments Blood Pressure 127/74 10/28/2022 2:02 PM CDT Pulse 88 10/28/2022 2:02 PM CDT Temperature 36.6 ??C (97.8 ??F) 10/28/2022 2:02 PM CD T Respiratory Rate 16 10/28/2022 2:02 PM CDT Oxygen Saturation 97% 10/28/2022 2:02 PM CDT Inhaled Oxygen Concentration - - Weight 134.3 kg (296 lb) 10/24/2022 4:34 AM CDT Height 172.7 cm (5' 8 ) 10/28/2022 2:02 PM CDT Body Mass Index 45.01 10/24/2022 4:34 AM CDT Functional Status Functional Status Response Date of Assess ment Is person deaf or have serious hearing difficult y? No 10/24/2022 Is person blind or have serious difficulty seein g? No 10/24/2022 Does person have serious dif ficulty walking/climbing stairs? Yes 10/24/2022 Does person have difficulty dressing/bathing? Ye s 10/24/2022 Does person have difficulty doing errands alone? Yes 10/24/2022 Cognitive Status Response Date of Assessm ent Does person have difficulty concentrating/remembering/making decisions? Yes 10/24/2022 Plan of Treatment Not on file Procedures Procedure Name Priority Date/Time Associated Diagnosis Comments BASIC METABOLIC PANEL (CALCIUM TOTAL) Routine 10/24/2022 1:48 AM CDT HEMOGLOBIN A1C FILOMENA 10/23/2022 9:14 AM CDT from Last 3 Months or Most Recently Relevant to Health Maintenance Results * (ABNORMAL) BASIC METABOLIC PANEL (CALCIUM TOTAL) (10/24/2022 1:48 AM CDT) BUN 15 7 - 26 mg/dL 10/24/2022 3:36 AM [facility] Creatinine 1.23(H) 0.56 - 0.96 mg/dL 10/24/2022 3:36 AM [facility] Sodium 141 136 - 145 mmol/L 10/24/2022 3:36 AM [facility] Potassium 4.8(H) 3.5 - 4.5 mmol/L 10/24/2022 3:36 AM [facility] Chloride 104 98 - 107 mmol/L 10/24/2022 3:36 AM [facility] CO2 27 22 - 29 mmol/L 10/24/2022 3:36 AM [facility] Glucose 227(H) 70 - 115 mg/dL 10/24/2022 3:36 AM [facility] Calcium 9.8 8.4 - 10.2 mg/dL 10/24/2022 3:36 AM [facility] Anion Gap 15 8 - 18 10/24/2022 3:36 AM [facility] BUN/Creatinine Ratio 12 7 - 23 10/24/2022 3:36 AM [facility] Osmolality Calculated 300 270 - 300 mOsm/kg 10/24/2022 3:36 AM [facility] eGFR by CKD-EPI 49(L) >=90 mL/min/1.7 3 m2 10/24/2022 3:36 AM [facility] Blood BLOOD SPECIMEN / Unknown Lab Venipuncture / Unknown 10/24/2022 1:48 AM CDT 10/24/2022 3:17 AM CDT Jairo Nunez MD LAB - CHEMISTRY [facility] [address] [place] [address], [facility] [phone] * (ABNORMAL) HEMOGLOBIN A1C (10/23/2022 9:14 AM CDT) Hemoglobin A1c 13.8(H) <=5.6 % 10/23/2022 1:53 PM CDT [facility] Estimated Average Glucose 349 mg/dL 10/23/2022 1:53 PM CDT [facility] Comment: HbA1c Interpretation: Normal : < 5.7% Pre-diabetes: 5.7-6.4% Diabetes: Equal to or greater than 6.5% Test results diagnostic of diabetes should be repeated for confirmation. Treatment target values recommended by ADA and other clinical organizations should be used to evaluate metabolic control in patients. Reference: [place] [employer], Standards of Care in Diabetes -2020 In patients 70 years and older consider HbA1c target range of 7.0-7.5% (Reference: Mookie Gomez et al. JAMDA. 2012) The Sebia assay for the measurement of HbA1c is a National Glycohemoglobin Standardization Program (NGSP) certified method. Blood BLOOD SPECIMEN / Unknown Venipuncture / Unknown 10/23/2022 9:14 AM CDT 10/23/2022 9:27 AM CDT Shiva Nayak MD LAB - CHEMISTRY [facility] [address] [place] [address], [facility] [phone] from Last 3 Months or Most Recently Relevant to Health Maintenance Advance Directives * Full Code (Latest Code Status on File) Date Activated Date Inactivated Comments 10/22/2022 8:43 PM 10/24/2022 8:45 PM * Full Code Date Activated Date Inactivated Comments 10/03/2017 9:23 AM 10/10/2017 12:42 PM * Full Code Date Activated Date Inactivated Comments 09/12/2017 9:56 AM 09/15/2017 7:58 PM * Full Code Date Activated Date Inactivated Comments 09/12/2017 9:53 AM 09/12/2017 9:56 AM
--- OUTSIDE RECORDS SUMMARY | 2024-04-09 05:13 | XMS_ITS | Encounter Summary ---
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 Shear Operator Name Role Phone Unavailable Primary Care Provider Unavailabl e Reason for Referral * (Routine) - Closed Specialty Diagnoses / Procedures Referred By Devante t Referred To Contact Diagnoses Tinea corporis Essential hypertension Diabetes mellitus without mention of complication, type II or unspecified type, uncontrolled Dysarthria Dyslipidemia with high density lipoprotein below reference range and triglyceride above reference range due to type 2 diabetes mellitus Multiple lacunar infarcts Spastic hemiplegia affecting right dominant side Yue Reed MD [address] [place] [id number] Phone: tel: fax: Referral ID Status Reason Start Date Expiration Date V isits Requested Visits Authorized [id number] Closed Specialty Services Required 10/09/2017 04/07/2018 1 1 Question Answer Reason for Consult? s/p stroke Anticipated Discharge Date 10/10/2017 Therapy PT - eval and treat, OT - eval and treat, ST - eval and treat Frequency: eval and treat Duration: eval and treatt Encounter Details Date Type Department Care Team (Latest Contact Info) Description 09/15/2017 7:26 PM CDT - 10/10/2017 10:30 AM CDT Hospital Encounter [address] [id number] Yeu Reed MD [address] [place] [id number] Tinea corporis (Primary Dx); Essential hypertension; Diabetes mellitus without mention of complication, type II or unspecified type, uncontrolled; Flaccid hemiplegia affecting right dominant side; Dysarthria; Dyslipidemia with high density lipoprotein below reference range and triglyceride above reference range due to type 2 diabetes mellitus; Multiple lacunar infarcts; Spastic hemiplegia affecting right dominant side; Morbid obesity Discharge Disposition: Discharged Home/Self Care Social History Tobacco Use Types Packs/Day Years [...] on file Sexual Orientation Not on file documented as of this encounter Last Filed Vital Signs Vital Sign Reading [...] Mass Index 31.07 09/15/2017 8:07 PM CDT documented in this encounter Discharge Summaries * Yue Reed MD - 10/10/2017 10:30 AM CDT Date of Admission: 09/15/2017 Date of Discharge: 10/10/2017 Diagnosis on Admission and Discharge: Patient Active Problem List Diagnosis ??? Essential hypertension ??? Diabetes mellitus without mention of complication, type II or unspecified type, uncontrolled ??? Hemiplegia affecting right dominant side ??? Dysarthria ??? Dyslipidemia with high density lipoprotein below reference range and triglyceride above reference range due to type 2 diabetes mellitus ??? Multiple lacunar infarcts ??? Morbid obesity Hospital Course: The patient was admitted for the main diagnoses as above cited. The patient underwent comprehensive inpatient rehabilitation program and made significant progress during her stay. Issues of note during her hospitalization include: ? CVA / right tristan: 09/17 stable. Therapies initiated. 09/18 stable. Continue therapies. 10/07 improving. Continue therapies. Patient is happy with her progress. ? CVA PRX: ASA+Lipitor. ? HTN: 09/17 within nornal limit without treatment. Observe closely. 09/18 low level of normal range. On no treatment. Observe. 10/08 within nornal limit. F/up. ? Diabetes mellitus follow up: 09/17 BS is significantly hig. I started her on Glimepiride 4 mg daily and d/c Lantus. Continue Metformin. 09/18 BS remains high. I started alogliptin along with others. Continue SSI. 09/21 BS is appropriate. Continue current treatment. 09/22 discussed with [employer] [facility], her BS is now within a good range but we don't think she can afford alogliptin at home. It will be d/aislinn and I will adjust her on metformin and Glimepiride only. 09/23 within nornal limit..Observe. 09/24 BS at lunch was 190+ but in PM 74. Observe closely with decrease metformin from today. 09/25 BS is slightly down. I d/c SSI. Continue Glimepiride and Metformin. 09/28 BS increasing today.F/up closely. 09/29 BS appropriately high. Continue current meds. 09/30 bs 151, appropriate for now. Continue treatment. 10/01 appropriate. F/up. 10/07 relatively stable. I discussed with [employer] regarding meds and financial coverage. of her meds. 10/08 within nornal limit. Continue current treatment. ? Bowel and Bladder functions: 09/17 incontinent of bladder. I discussed with patient of scheduled assistance to toilet. ? Ring worm skin rash: 09/17 contact isolation was ordered. Lotrimin was started. Observed. 09/21 remains seen. Continue treatment. 09/22 improving. Observe. 09/25 I started her on Griseofulvin orally. Continue ointment. 09/28 the red color of the lesions are fading and the rings are flatten better. Patient is happy. I suggested the Griseofulvin to continue for 14 days course. 09/29 continue improving.10/07 the redness subsides gradually. The raise of the border is also flattened down. Continue Griseofulvin. 10/08 application signed for discount meds in prep for d/c plan. ? DVT PRx: 09/17 switch heparin to Lovenox 09/18 asymptomatic. 09/25 d/c Lovenox for good improvement of walking distance. ? Lab review: 09/21 non significant. F/up. ? Leda-pharyngeal dysphagia: 09/21 note: DIET: NDD3 and Thin liquids. SWALLOWING STRATEGIES: Upright 90 degrees, small bites/sips, slow rate, monitor right cheek for pocketing and alternation of solids/liquids. 10/07 resolved. ? Mobility progress: I have seen patient in the gym and reviewed the PT notes as follow: 09/17 ambulates 120 feet with fww with R hand splint with minimal assistance for safety and balance. gait deiations include dec joseline dec step length, dec control intermittently of R knee, dec base of support. 09/30 ambulates 300 feet with fww and close supervision. gait deviations include dec joseline dec step length, inc trunk flexion; ambualtes 100 feet with single point ncane and close supervision; dec step length and uneven step length on the R, dec R foot clearance but does not drag foot. 10/07 ambulates 200 feet x 3 with fww and modified independence. gait deviaitons include dec caddence dec step length, inc trunk felxion. ??ambulates 100 feet without assistive device with cga for safey and no loss of balance or safety issues noted. 10/09 D/C SUMMARY NOTE: TRANSFERS: sit to stand with modified independence, stand pivot with modified indpednence with fornt wheeled walker, independent in transfers with single point cane GAIT: Ambulates 200 feet with front wheeled walker and modified independence; 200 feet with single point cane and close supervision ELEVATIONS: ascends/descends 12 6 inch steps with rail and distant supervision,ascends/descends 2 inch and 6 [address] with fww with supervision; ascneds/desececnds [address] with single point cane and close supervision. WHEELCHAIR: PRopels manaual wheelchair 150 feet with modified independence. Car transfer with modified independencec [facility] fornt [facility]ed walker. MCDONALD 49/56 in dicating low risk for falls. She has made progress as noted above and she would benefit from continued skilled PT per POC in outpatient settting to maximize safety,functional abiltiies, and independence. Family attended family training and denied any furher questions at this time. family will be avaiable to assist at home as needed. reocmmend front wheeld walker for mobility at this time, pt alredy has isngle point cane. ? Personal care activity progress: I have reviewed OT progress notes as follow: 09/17 Pt demos good progress with R UE neuro re-education and functional transfers. POC to continue addressing R UE function, cognitive skills and balance. 10/01 Pt family expresses concern with bathroom setup and having a garden tub, which is a tub with awider ledge and a step to get into. Discussed having pt sit on wider ledge of tub then swing LEs into tub stand using grab bars and transfer to showre chair. Pt demos understanding on narrow ledge ofstandard tub shower and pt daughter provides CGA with cues for positioning from therapist after demo nstration. Pt and family are educated on recommendation to obtain shower chair and at least two grab bars at dc and they are agreeable. 10/07 KITCHEN TASK: She demos modified independence with simple and simple- moderate level cooking tasks. ? Cognitive linguistic functions: I have reviewed ST notes as follow: 09/21 COMPREHENSION: Supervisory assist for basic comprehension. WFL for basic conversation and increased amount of assist for complex conversation. EXPRESSION:Supervisory assist for verbal expression. WFL for basic conversation with increased amount of assist for complex conversation. Improved speech intelligibility over the past few days. REASONING: Moderately impaired for basic reasoning tasks.Cues required half of the time for reasoning. Decreased reasoning, thought organization, insight, and attention. MEMORY: Moderately impaired for basic memory tasks. She requires cues half of the timefor basic memory. Noted difficulty with delayed recall paragraph recall, and carryover of novel information. 09/28 Pt independently recalled weekend and name of new grandchild. Pt recalled 3/3 items after a 5-10 minute delay. Pt completed a scheduling activity to attend to thought organization, problem solving, attention, and reasoning with 50% accuracy with moderate to maximal assistance. Pt presented with slow processing speed during task. Pt completed problem solving task with 78% accuracy with minimal assistance. Pt required moderate to maximal assistance to attend to constraints of task. Recommendto continue current plan of care. 10/08 Pt independently recalled details of morning and breakfast as well as plans for discharge. Pt described planning of future holiday and accomodations for mobility. Pt independently recalled 2/3 details of a message after 15 minute delay. Pt answered problem solving questions with 75% accuracy with supervisory assistance. Pt completed basic sequencing task with 87% accuracy with independence. Pt completed word deduction task to address thought organization, reasoning, and word finding with 81% accuracy with minimal assistance. ? Coordination with consultants/read notes: ?? 09/[address] today. Progress and barriers ajnd discharge plan were discussed.Total time: 30 minutes, 1/2 spent in coordination of care. ?? 09/[address] today. Progress and barriers ajnd discharge plan were discussed.Total time: 30 minutes, 1/2 spent in coordination of care. ?? 10/[address] took place today. Progress and barriers ajnd discharge plan were discussed.Total time: 30 minutes, 1/2 spent in coordination of care. ?? 10/10 D/C home. Patient is ready. Meds reviewed and Rx written. Instructions was given for compliance of meds and fall precautions. ?Discharge exam: Temp: 96.8 ??F (36 ??C) Temp Source: Axillary Pulse: 82 Resp: 18 BP: 124/71 Patient Position: Lying SpO2: 94 % O2 Device: None (Room air) Drug Calculation Weight: 296 lb (134 kg) LABS/IMAGING: ?? I reviewed the lab test results as follow: ? POC Glucose ? POC Glucose ? 10/09/17 1150 132(A) ? 10/09/17 0607 116 ? Results for MARIA LONG ( ) as of 09/21/2017 14:12 ?? Ref. Range 09/21/2017 04:20 Glucose mg/dL Blood Latest Ref Range: 74 - 106 mg/dL 113 (H) Bun mg/dL Blood Latest Ref Range: 7 - 21 mg/dL 15 Creatinine S Latest Ref Range: 0.50 - 1.30 mg/dL 0.70 Sodium mmol/L Blood Latest Ref Range: 136 - 145 mmol/L 138 Potassium mmol/L Blood Latest Ref Range: 3.5 - 5.1 mmol/L 3.8 Chloride Latest Ref Range: 98 - 107 mmol/L 101 CO2 Latest Ref Range: 22 - 31 mmol/L 28 Calcium mg/dL Blood Latest Ref Range: 8.5 - 10.1 mg/dL 9.1 Anion Gap Blood Latest Ref Range: 8 - 16 mmol/L 9 Egfr By MDRD ml/Min/1.73 M2 Blood Latest Ref Range: >60 mL/min/1.73m2 >60 Egfr By MDRD ml/Min/1.73 M2 Blood Afr.Amer Latest Ref Range: >60 mL/min/1.73m2 >60 HCT % Blood Latest Ref Range: 35.9 - 45.5 % 44.3 HGB gm/dL Blood Latest Ref Range: 12.0 - 15.6 gm/dL 15.1 MCH pg Blood Latest Ref Range: 26.7 - 34.0 pg 31.7 MCHC gm/dL Blood Latest Ref Range: 30.8 - 35.9 gm/dL 34.1 MCV fL Blood Latest Ref Range: 80.7 - 98.3 fl 92.9 MPV fL Blood Latest Ref Range: 9.4 - 12.[address] X(10)9/L Blood Latest Ref Range: 153 - 416 x10E9/L 240 RDW-Cv % Blood Latest Ref Range: 12.1 - 14.9 % 11.9 (L) WBC X(10)9/L Blood Latest Ref Range: 4.4 - 10.7 x10E9/L 10.6 Rbc X(10)12/L Blood Latest Ref Range: 3.80 - 5.20 x10E12/L 4.77 ? CURRENT MEDS: ?? Scheduled/Continuous Medications Scheduled ?? Medication Dose/Rate, Route, Frequency Last Action ?? aspirin EC tablet 81 mg 81 mg, PO, Once a day Given: 10/09 817 ?? atorvastatin (LIPITOR) tablet 40 mg 40 mg, PO, Nightly Given: 10/08 2024 ?? glimepiride (AMARYL) tablet 4 mg 4 mg, PO, Daily with breakfast Given: 10/09 816 ?? griseofulvin (JOSELITO-PEG) tablet 250 mg 250 mg, PO, BID PC Given: 10/09 1736 ?? metFORMIN (GLUCOPHAGE) tablet 500 mg 500 mg, PO, BID with meals Given: 10/09 1736 ?? miconazole (MICOTIN) 2 % cream No Dose/Rate, TP, BID Given: 10/09 818 ?? senna (SENOKOT) tablet 8.6 mg 8.6 mg, PO, Nightly Given: 10/08 2025 ? glucose ??? dextrose 5 % and sodium chloride 0.45 % ??? dextrose ??? glucagon ??? lactulose ? No Known Allergies ?? documented in this encounter Discharge Instructions * Discharge Instr - Activity* Rona Cruz RN - 10/10/2017 9:58 AM CDT Activity as tolerated Do not drive until cleared by primary care provider * Discharge Instr- Wound* Rona Cruz RN - 10/10/2017 9:58 AM CDT Wash gently with soap and water Apply miconazole cream 2 times a day to ringworm rash. documented in this encounter Medications at Time of Discharge aspirin 81 MG EC tablet Take 1 tablet (81 mg total) by mouth once a day. 0 10/10/2017 glimepiride (AMARYL) 4 MG tablet Take 1 tablet (4 mg total) by mouth daily with breakfast. 30 tablet 10/09/2017 metFORMIN (GLUCOPHAGE) 500 MG tablet Take 1 tablet (500 mg total) by mouth 2 (two) times a day with Breakfast and Dinner. 60 tablet 10/08/2017 miconazole (ANTIFUNGAL) 2 % cream Apply topically 2 (two) times a day. 14 g 10/08/2017 senna (SENOKOT) 8.6 MG tablet Take 1 tablet by mouth once a day. 0 10/08/2017 atorvastatin (LIPITOR) 40 MG tablet Take 1 tablet (40 mg total) by mouth nightly. 30 tablet 10/08/2017 8 griseofulvin (JOSELITO-PEG) 250 MG tablet Take 1 tablet (250 mg total) by mouth 2 (two) times a day after meals for 18 doses. 18 tablet 10/08/2017 8 documented as of this encounter Progress Notes * Yue Reed MD - 10/09/2017 6:15 PM CDT REHAB PROGRESS NOTE Patient: Maria Long, 57 y.o. CC: No c/o. The rest of ROS is negative. PFSHX: PMH: I have reviewed and there is no change Family: I have reviewed and there is no change Social: I have reviewed and there is no change OBJECTIVE: Vitals: Vitals: 10/09/17 0700 BP: 110/72 Pulse: 82 Resp: 18 Temp: 97 ??F (36.1 ??C) SpO2: 98% CONSTITUTIONAL: CALM. EYES: PERRLA, EOMI ENT/MOUTH/NECK: EXT EAR NORMAL, NARES PATENT, OP CLEAR. CV: RRR. PULM: CTA BILATERAL. GI: SOFT, NON TENDER, NON DISTENDED, BOWEL SOUNDS INTACT. : DIAPERS EXT: NO CLUBBING, CYANOSIS, EDEMA, NO CALF TENDERNESS JAM'S SIGNS NEGATIVE. MSK: TONE, STRENGTH, GAIT SKIN: DRESSINGS, SURGICAL WOUND, EDEMA, LESIONS RING WORM LESIONS DRY CLEAN, FADING GRADUALLY. NEURO: A&OX3, REFLEXES, SENSATION. PSYCH: MOOD, AFFECT, PLEASANT. LABS/IMAGING: I reviewed the lab test results as follow: POC Glucose POC Glucose 10/09/17 1150 132(A) 10/09/17 0607 116 Results for MARIA LONG ( ) as of 09/21/2017 14:12 Ref. Range 09/21/2017 04:20 Glucose mg/dL Blood Latest Ref Range: 74 - 106 mg/dL 113 (H) Bun mg/dL Blood Latest Ref Range: 7 - 21 mg/dL 15 Creatinine S Latest Ref Range: 0.50 - 1.30 mg/dL 0.70 Sodium mmol/L Blood Latest Ref Range: 136 - 145 mmol/L 138 Potassium mmol/L Blood Latest Ref Range: 3.5 - 5.1 mmol/L 3.8 Chloride Latest Ref Range: 98 - 107 mmol/L 101 CO2 Latest Ref Range: 22 - 31 mmol/L 28 Calcium mg/dL Blood Latest Ref Range: 8.5 - 10.1 mg/dL 9.1 Anion Gap Blood Latest Ref Range: 8 - 16 mmol/L 9 Egfr By MDRD ml/Min/1.73 M2 Blood Latest Ref Range: >60 mL/min/1.73m2 >60 Egfr By MDRD ml/Min/1.73 M2 Blood Afr.Amer Latest Ref Range: >60 mL/min/1.73m2 >60 HCT % Blood Latest Ref Range: 35.9 - 45.5 % 44.3 HGB gm/dL Blood Latest Ref Range: 12.0 - 15.6 gm/dL 15.1 MCH pg Blood Latest Ref Range: 26.7 - 34.0 pg 31.7 MCHC gm/dL Blood Latest Ref Range: 30.8 - 35.9 gm/dL 34.1 MCV fL Blood Latest Ref Range: 80.7 - 98.3 fl 92.9 MPV fL Blood Latest Ref Range: 9.4 - 12.[address] X(10)9/L Blood Latest Ref Range: 153 - 416 x10E9/L 240 RDW-Cv % Blood Latest Ref Range: 12.1 - 14.9 % 11.9 (L) WBC X(10)9/L Blood Latest Ref Range: 4.4 - 10.7 x10E9/L 10.6 Rbc X(10)12/L Blood Latest Ref Range: 3.80 - 5.20 x10E12/L 4.77 CURRENT MEDS: Scheduled/Continuous Medications Scheduled Medication Dose/Rate, Route, Frequency Last Action aspirin EC tablet 81 mg 81 mg, PO, Once a day Given: 10/09 817 atorvastatin (LIPITOR) tablet 40 mg 40 mg, PO, Nightly Given: 10/08 2024 glimepiride (AMARYL) tablet 4 mg 4 mg, PO, Daily with breakfast Given: 10/09 816 griseofulvin (JOSELITO-PEG) tablet 250 mg 250 mg, PO, BID PC Given: 10/09 1736 metFORMIN (GLUCOPHAGE) tablet 500 mg 500 mg, PO, BID with meals Given: 10/09 1736 miconazole (MICOTIN) 2 % cream No Dose/Rate, TP, BID Given: 10/09 818 senna (SENOKOT) tablet 8.6 mg 8.6 mg, PO, Nightly Given: 10/08 2025 glucose ??? dextrose 5 % and sodium chloride 0.45 % ??? dextrose ??? glucagon ??? lactulose No Known Allergies MEDICAL DECISION MAKING/PLAN: Patient Active Problem List Diagnosis ??? Essential hypertension ??? Diabetes mellitus without mention of complication, type II or unspecified type, uncontrolled ??? Hemiplegia affecting right dominant side ??? Dysarthria ??? Dyslipidemia with high density lipoprotein below reference range and triglyceride above reference range due to type 2 diabetes mellitus ??? Multiple lacunar infarcts ??? Morbid obesity ?? CVA / right tristan: 09/17 stable. Therapies initiated. 09/18 stable. Continue therapies. 09/21 stable. Continues therapies. 09/25 improving. Continue therapies. 09/28 improving well. Continue therapies. 10/01 keep improving. Family training given today with patient. 10/07 improving. Continue therapies. Patient is happy with her progress. ?? CVA PRX: ASA+Lipitor. ?? HTN: 09/17 within nornal limit without treatment. Observe closely. 09/18 low level of normal range. On no treatment. Observe. 09/21 within nornal limit without treatment. F/up. 09/25 within nornal limit. Observe. 09/30 slightly low on no treatment. F/up. 10/07 within nornal limit.. Observe. 10/08 within nornal limit. F/up. ?? Diabetes mellitus follow up: 09/17 BS is significantly hig. I started her on Glimepiride 4 mg daily and d/c Lantus. Continue Metformin. 09/18 BS remains high. I started alogliptin along with others. Continue SSI. 09/21 BS is appropriate. Continue current treatment. 09/22 discussed with [employer] [facility], her BS is now within a good range but we don't think she can afford alogliptin at home. It will be d/aislinn and I will adjust her on metformin and Glimepiride only. 09/23 within nornal limit..Observe. 09/24 BS at lunch was 190+ but in PM 74. Observe closely with decrease metformin from today. 09/25 BS is slightly down. I d/c SSI. Continue Glimepiride and Metformin. 09/28 BS increasing today.F/up closely. 09/29 BS appropriately high. Continue current meds. 09/30 bs 151, appropriate for now. Continue treatment. 10/01 appropriate. F/up. 10/07 relatively stable. I discussed with [employer] regarding meds and financial coverage. of her meds. 10/08 within nornal limit. Continue current treatment. ?? Bowel and Bladder functions: 09/17 incontinent of bladder. I discussed with patient of scheduled assistance to toilet. ?? Ring worm skin rash: 09/17 contact isolation was ordered. Lotrimin was started. Observed. 09/21 remains seen. Continue treatment. 09/22 improving. Observe. 09/25 I started her on Griseofulvin orally. Continue ointment. 09/28 the red color of the lesions are fading and the rings are flatten better. Patient is happy. I suggested the Griseofulvin to continue for 14 days course. 09/29 continue improving.10/07 the redness subsides gradually. The raise of the border is also flattened down. Continue Griseofulvin. 10/08 application signed for discount meds in prep for d/c plan. ?? DVT PRx: 09/17 switch heparin to Lovenox 09/18 asymptomatic. 09/25 d/c Lovenox for good improvement of walking distance. ?? Lab review: 09/21 non significant. F/up. ?? Leda-pharyngeal dysphagia: 09/21 ST note: DIET: NDD3 and Thin liquids. SWALLOWING STRATEGIES: Upright 90 degrees, small bites/sips, slow rate, monitor right cheek for pocketing and alternation of solids/liquids. 10/07 resolved. ?? Mobility progress: I have seen patient in the gym and reviewed the PT notes as follow: 09/17 ambulates 120 feet with fww with R hand splint with minimal assistance for safety and balance. gait deiations include dec joseline dec step length, dec control intermittently of R knee, dec base of support. 09/18 t/f with minimal assistance. ambulates 20 ft with RW and min assist for balance. Gait deviations include decreased joseline, step length, increased trunk flexion. Slight path deviation x 3, difficulty navigating walker around cluttered corners. 09/22 ambulates 200 feet with R hand splint walker and conotact guard asssitance. gait deviations include dec joseline dec step length very slight r knee hyperextension but pt is able to control with cues. 09/23 ambulates 200 feet with fww and close supervision for safety. gait deviations include dec joseline dec step length, very slight r knee hyperextension. Ambulates 100 feet with single point cane and cga for safety. gait deviaitons include decc cdence dec step length, slightly dec R foot clearance. 09/25 ambulates 200 feet with fww and close supervision for safety. ambulates 100 feet with single point cane and contact guard assistance for safety. gait deviations include dec joseline dec step length, inc trunk flexion with single point cane needs cues for increasing RLE step length 09/28 ambulates 200 feet with fww and close supervision, no lob or safety issues noted. ambulates 140 feet with single point cane and contact guard assitance for safety, one instasnce of verbal cues for clearing R foot required. gait deviaiton sinclude dec joseline dec step lenght, inc trunk flexion,slightly uneven step lengths. 09/30 ambulates 300 feet with fww and close supervision. gait deviations include dec joseline dec step length, inc trunk flexion; ambualtes 100 feet with single point ncane and close supervision; dec step length and uneven step length on the R, dec R foot clearance but does not drag foot. 10/07 ambulates 200 feet x 3 with fww and modified independence. gait deviaitons include dec caddence dec step length, inc trunk felxion. ambulates 100 feet without assistive device with cga for safeyand no loss of balance or safety issues noted. 10/09 D/C SUMMARY NOTE: TRANSFERS: sit to stand with modified independence, stand pivot with modified indpednence with fornt wheeled walker, independent in transfers with single point cane GAIT: Ambulates 200 feet with front wheeled walker and modified independence; 200 feet with single point cane and close supervision ELEVATIONS: ascends/descends 12 6 inch steps with rail and distant supervision,ascends/descends 2 inch and 6 [address] with fww with supervision; ascneds/desececnds 6 [address] with single point cane and close supervision. WHEELCHAIR: PRopels manaual wheelchair 150 feet with modified independence. Car transfer with modified independencec iw fornt wheeled walker. MCDONALD 49/56 in dicating low risk for falls. She has made progress as noted above and she would benefit from continued skilled PT per POC in outpatient settting to maximize safety,functional abiltiies, and independence. Family attended family training and denied any furher questions at this time. family will be avaiable to assist at home as needed. reocmmend front wheeld walker for mobility at this time, pt alredy has isngle point cane. ? Personal care activity progress: I have reviewed OT progress notes as follow: 09/17 Pt demos good progress with R UE neuro re-education and functional transfers. POC to continue addressing R UE function, cognitive skills and balance. 09/29 In addition to transfer to and from mat/wc with SBA, pt completes functional mobilty approximately 150 feet pushing wc with cues for attention to R LE especially as pt fatigues. She require CGA for balance during task. 10/01 Pt family expresses concern with bathroom setup and having a garden tub, which is a tub with awider ledge and a step to get into. Discussed having pt sit on wider ledge of tub then swing LEs into tub stand using grab bars and transfer to showre chair. Pt demos understanding on narrow ledge ofstandard tub shower and pt daughter provides CGA with cues for positioning from therapist after demo nstration. Pt and family are educated on recommendation to obtain shower chair and at least two grab bars at [place] and they are agreeable. 10/07 KITCHEN TASK: She demos modified independence with simple and simple- moderate level cooking tasks. ?? Cognitive linguistic functions: I have reviewed ST notes as follow: 09/21 COMPREHENSION: Supervisory assist for basic comprehension. WFL for basic conversation and increased amount of assist for complex conversation. EXPRESSION:Supervisory assist for verbal expression. WFL for basic conversation with increased amount of assist for complex conversation. Improved speech intelligibility over the past few days. REASONING: Moderately impaired for basic reasoning tasks.Cues required half of the time for reasoning. Decreased reasoning, thought organization, insight, and attention. MEMORY: Moderately impaired for basic memory tasks. She requires cues half of the timefor basic memory. Noted difficulty with delayed recall paragraph recall, and carryover of novel information. 09/28 Pt independently recalled weekend and name of new grandchild. Pt recalled 3/3 items after a 5-10 minute delay. Pt completed a scheduling activity to attend to thought organization, problem solving, attention, and reasoning with 50% accuracy with moderate to maximal assistance. Pt presented with slow processing speed during task. Pt completed problem solving task with 78% accuracy with minimal assistance. Pt required moderate to maximal assistance to attend to constraints of task. Recommendto continue current plan of care. 10/08 Pt independently recalled details of morning and breakfast as well as plans for discharge. Pt described planning of future holiday and accomodations for mobility. Pt independently recalled 2/3 details of a message after 15 minute delay. Pt answered problem solving questions with 75% accuracy with supervisory assistance. Pt completed basic sequencing task with 87% accuracy with independence. Pt completed word deduction task to address thought organization, reasoning, and word finding with 81% accuracy with minimal assistance. ?? Coordination with consultants/read notes: ?? 09/[address] today. Progress and barriers ajnd discharge plan were discussed.Total time: 30 minutes, 1/2 spent in coordination of care. 09/[address] today. Progress and barriers ajnd discharge plan were discussed. Total time: 30 minutes, 1/2 spent in coordination of care. 10/[address] today. Progress and barriers ajnd discharge plan were discussed. Total time: 30 minutes, 1/2 spent in coordination of care. ?? 10/09 D/C home tomorrow. Patient is ready. Meds reviewed and Rx written. Instructions was given for compliance of meds and fall precautions. CODE: Full. YUE REED MD 6:15 PM * Yue Reed MD - 10/08/2017 10:40 AM CDT REHAB PROGRESS NOTE Patient: Maria Long, 57 y.o. CC: No c/o. The rest of ROS is negative. PFSHX: PMH: I have reviewed and there is no change Family: I have reviewed and there is no change Social: I have reviewed and there is no change OBJECTIVE: Vitals: Vitals: 10/09/17 0700 BP: 110/72 Pulse: 82 Resp: 18 Temp: 97 ??F (36.1 ??C) SpO2: 98% CONSTITUTIONAL: CALM. EYES: PERRLA, EOMI ENT/MOUTH/NECK: EXT EAR NORMAL, NARES PATENT, OP CLEAR. CV: RRR. PULM: CTA BILATERAL. GI: SOFT, NON TENDER, NON DISTENDED, BOWEL SOUNDS INTACT. : DIAPERS EXT: NO CLUBBING, CYANOSIS, EDEMA, NO CALF TENDERNESS JAM'S SIGNS NEGATIVE. MSK: TONE, STRENGTH, GAIT SKIN: DRESSINGS, SURGICAL WOUND, EDEMA, LESIONS RING WORM LESIONS DRY CLEAN, FADING GRADUALLY. NEURO: A&OX3, REFLEXES, SENSATION. PSYCH: MOOD, AFFECT, PLEASANT. LABS/IMAGING: I reviewed the lab test results as follow: POC Glucose POC Glucose 10/09/17 0607 116 10/08/17 1648 115 10/08/17 1232 109 Results for MARIA LONG ( ) as of 09/21/2017 14:12 Ref. Range 09/21/2017 04:20 Glucose mg/dL Blood Latest Ref Range: 74 - 106 mg/dL 113 (H) Bun mg/dL Blood Latest Ref Range: 7 - 21 mg/dL 15 Creatinine S Latest Ref Range: 0.50 - 1.30 mg/dL 0.70 Sodium mmol/L Blood Latest Ref Range: 136 - 145 mmol/L 138 Potassium mmol/L Blood Latest Ref Range: 3.5 - 5.1 mmol/L 3.8 Chloride Latest Ref Range: 98 - 107 mmol/L 101 CO2 Latest Ref Range: 22 - 31 mmol/L 28 Calcium mg/dL Blood Latest Ref Range: 8.5 - 10.1 mg/dL 9.1 Anion Gap Blood Latest Ref Range: 8 - 16 mmol/L 9 Egfr By MDRD ml/Min/1.73 M2 Blood Latest Ref Range: >60 mL/min/1.73m2 >60 Egfr By MDRD ml/Min/1.73 M2 Blood Afr.Amer Latest Ref Range: >60 mL/min/1.73m2 >60 HCT % Blood Latest Ref Range: 35.9 - 45.5 % 44.3 HGB gm/dL Blood Latest Ref Range: 12.0 - 15.6 gm/dL 15.1 MCH pg Blood Latest Ref Range: 26.7 - 34.0 pg 31.7 MCHC gm/dL Blood Latest Ref Range: 30.8 - 35.9 gm/dL 34.1 MCV fL Blood Latest Ref Range: 80.7 - 98.3 fl 92.9 MPV fL Blood Latest Ref Range: 9.4 - 12.[address] X(10)9/L Blood Latest Ref Range: 153 - 416 x10E9/L 240 RDW-Cv % Blood Latest Ref Range: 12.1 - 14.9 % 11.9 (L) WBC X(10)9/L Blood Latest Ref Range: 4.4 - 10.7 x10E9/L 10.6 Rbc X(10)12/L Blood Latest Ref Range: 3.80 - 5.20 x10E12/L 4.77 CURRENT MEDS: Scheduled/Continuous Medications Scheduled Medication Dose/Rate, Route, Frequency Last Action aspirin EC tablet 81 mg 81 mg, PO, Once a day Given: 10/09 817 atorvastatin (LIPITOR) tablet 40 mg 40 mg, PO, Nightly Given: 10/08 2024 glimepiride (AMARYL) tablet 4 mg 4 mg, PO, Daily with breakfast Given: 10/09 816 griseofulvin (JOSELITO-PEG) tablet 250 mg 250 mg, PO, BID PC Given: 10/09 817 metFORMIN (GLUCOPHAGE) tablet 500 mg 500 mg, PO, BID with meals Given: 10/09 817 miconazole (MICOTIN) 2 % cream No Dose/Rate, TP, BID Given: 10/09 818 senna (SENOKOT) tablet 8.6 mg 8.6 mg, PO, Nightly Given: 10/08 2025 glucose ??? dextrose 5 % and sodium chloride 0.45 % ??? dextrose ??? glucagon ??? lactulose No Known Allergies MEDICAL DECISION MAKING/PLAN: Patient Active Problem List Diagnosis ??? Essential hypertension ??? Diabetes mellitus without mention of complication, type II or unspecified type, uncontrolled ??? Hemiplegia affecting right dominant side ??? Dysarthria ??? Dyslipidemia with high density lipoprotein below reference range and triglyceride above reference range due to type 2 diabetes mellitus ??? Multiple lacunar infarcts ??? Morbid obesity ?? CVA / right tristan: 09/17 stable. Therapies initiated. 09/18 stable. Continue therapies. 09/21 stable. Continues therapies. 09/25 improving. Continue therapies. 09/28 improving well. Continue therapies. 10/01 keep improving. Family training given today with patient. 10/07 improving. Continue therapies. Patient is happy with her progress. ?? CVA PRX: ASA+Lipitor. ?? HTN: 09/17 within nornal limit without treatment. Observe closely. 09/18 low level of normal range. On no treatment. Observe. 09/21 within nornal limit without treatment. F/up. 09/25 within nornal limit. Observe. 09/30 slightly low on no treatment. F/up. 10/07 within nornal limit.. Observe. 10/08 within nornal limit. F/up. ?? Diabetes mellitus follow up: 09/17 BS is significantly hig. I started her on Glimepiride 4 mg daily and d/c Lantus. Continue Metformin. 09/18 BS remains high. I started alogliptin along with others. Continue SSI. 09/21 BS is appropriate. Continue current treatment. 09/22 discussed with [employer] [facility], her BS is now within a good range but we don't think she can afford alogliptin at home. It will be d/aislinn and I will adjust her on metformin and Glimepiride only. 09/23 within nornal limit..Observe. 09/24 BS at lunch was 190+ but in PM 74. Observe closely with decrease metformin from today. 09/25 BS is slightly down. I d/c SSI. Continue Glimepiride and Metformin. 09/28 BS increasing today.F/up closely. 09/29 BS appropriately high. Continue current meds. 09/30 bs 151, appropriate for now. Continue treatment. 10/01 appropriate. F/up. 10/07 relatively stable. I discussed with [employer] regarding meds and financial coverage. of her meds. 10/08 within nornal limit. Continue current treatment. ?? Bowel and Bladder functions: 09/17 incontinent of bladder. I discussed with patient of scheduled assistance to toilet. ?? Ring worm skin rash: 09/17 contact isolation was ordered. Lotrimin was started. Observed. 09/21 remains seen. Continue treatment. 09/22 improving. Observe. 09/25 I started her on Griseofulvin orally. Continue ointment. 09/28 the red color of the lesions are fading and the rings are flatten better. Patient is happy. I suggested the Griseofulvin to continue for 14 days course. 09/29 continue improving.10/07 the redness subsides gradually. The raise of the border is also flattened down. Continue Griseofulvin. 10/08 application signed for discount meds in prep for d/c plan. ?? DVT PRx: 09/17 switch heparin to Lovenox 09/18 asymptomatic. 09/25 d/c Lovenox for good improvement of walking distance. ?? Lab review: 09/21 non significant. F/up. ?? Leda-pharyngeal dysphagia: 09/21 ST note: DIET: NDD3 and Thin liquids. SWALLOWING STRATEGIES: Upright 90 degrees, small bites/sips, slow rate, monitor right cheek for pocketing and alternation of solids/liquids. 10/07 resolved. ?? Mobility progress: I have seen patient in the gym and reviewed the PT notes as follow: 09/17 ambulates 120 feet with fww with R hand splint with minimal assistance for safety and balance. gait deiations include dec joseline dec step length, dec control intermittently of R knee, dec base of support. 09/18 t/f with minimal assistance. ambulates 20 ft with RW and min assist for balance. Gait deviations include decreased joseline, step length, increased trunk flexion. Slight path deviation x 3, difficulty navigating walker around cluttered corners. 09/22 ambulates 200 feet with R hand splint walker and conotact guard asssitance. gait deviations include dec joseline dec step length very slight r knee hyperextension but pt is able to control with cues. 09/23 ambulates 200 feet with fww and close supervision for safety. gait deviations include dec joseline dec step length, very slight r knee hyperextension. Ambulates 100 feet with single point cane and cga for safety. gait deviaitons include decc cdence dec step length, slightly dec R foot clearance. 09/25 ambulates 200 feet with fww and close supervision for safety. ambulates 100 feet with single point cane and contact guard assistance for safety. gait deviations include dec joseline dec step length, inc trunk flexion with single point cane needs cues for increasing RLE step length 09/28 ambulates 200 feet with fww and close supervision, no lob or safety issues noted. ambulates 140 feet with single point cane and contact guard assitance for safety, one instasnce of verbal cues for clearing R foot required. gait deviaiton sinclude dec joseline dec step lenght, inc trunk flexion,slightly uneven step lengths. 09/30 ambulates 300 feet with fww and close supervision. gait deviations include dec joseline dec step length, inc trunk flexion; ambualtes 100 feet with single point ncane and close supervision; dec step length and uneven step length on the R, dec R foot clearance but does not drag foot. 10/07 ambulates 200 feet x 3 with fww and modified independence. gait deviaitons include dec caddence dec step length, inc trunk felxion. ambulates 100 feet without assistive device with cga for safeyand no loss of balance or safety issues noted. ?? Personal care activity progress: I have reviewed OT progress notes as follow: 09/17 Pt demos good progress with R UE neuro re-education and functional transfers. POC to continue addressing R UE function, cognitive skills and balance. 09/29 In addition to transfer to and from mat/wc with SBA, pt completes functional mobilty approximately 150 feet pushing wc with cues for attention to R LE especially as pt fatigues. She require CGA for balance during task. 10/01 Pt family expresses concern with bathroom setup and having a garden tub, which is a tub with awider ledge and a step to get into. Discussed having pt sit on wider ledge of tub then swing LEs into tub stand using grab bars and transfer to showre chair. Pt demos understanding on narrow ledge ofstandard tub shower and pt daughter provides CGA with cues for positioning from therapist after demo nstration. Pt and family are educated on recommendation to obtain shower chair and at least two grab bars at [place] and they are agreeable. 10/07 KITCHEN TASK: She demos modified independence with simple and simple- moderate level cooking tasks. ?? Cognitive linguistic functions: I have reviewed ST notes as follow: 09/21 COMPREHENSION: Supervisory assist for basic comprehension. WFL for basic conversation and increased amount of assist for complex conversation. EXPRESSION:Supervisory assist for verbal expression. WFL for basic conversation with increased amount of assist for complex conversation. Improved speech intelligibility over the past few days. REASONING: Moderately impaired for basic reasoning tasks.Cues required half of the time for reasoning. Decreased reasoning, thought organization, insight, and attention. MEMORY: Moderately impaired for basic memory tasks. She requires cues half of the timefor basic memory. Noted difficulty with delayed recall paragraph recall, and carryover of novel information. 09/28 Pt independently recalled weekend and name of new grandchild. Pt recalled 3/3 items after a 5-10 minute delay. Pt completed a scheduling activity to attend to thought organization, problem solving, attention, and reasoning with 50% accuracy with moderate to maximal assistance. Pt presented with slow processing speed during task. Pt completed problem solving task with 78% accuracy with minimal assistance. Pt required moderate to maximal assistance to attend to constraints of task. Recommendto continue current plan of care. 10/08 Pt independently recalled details of morning and breakfast as well as plans for discharge. Pt described planning of future holiday and accomodations for mobility. Pt independently recalled 2/3 details of a message after 15 minute delay. Pt answered problem solving questions with 75% accuracy with supervisory assistance. Pt completed basic sequencing task with 87% accuracy with independence. Pt completed word deduction task to address thought organization, reasoning, and word finding with 81% accuracy with minimal assistance. ?? Coordination with consultants/read notes: ?? 09/[address] today. Progress and barriers ajnd discharge plan were discussed.Total time: 30 minutes, 1/2 spent in coordination of care. 09/[address] today. Progress and barriers ajnd discharge plan were discussed. Total time: 30 minutes, 1/2 spent in coordination of care. 10/[address] today. Progress and barriers ajnd discharge plan were discussed. Total time: 30 minutes, 1/2 spent in coordination of care. ?? CODE: Full. YUE REED MD 10:40 AM * Yue Reed MD - 10/07/2017 6:07 PM CDT REHAB PROGRESS NOTE Patient: Maria Long, 57 y.o. CC: No c/o. The rest of ROS is negative. PFSHX: PMH: I have reviewed and there is no change Family: I have reviewed and there is no change Social: I have reviewed and there is no change OBJECTIVE: Vitals: Vitals: 10/07/17 0700 BP: 122/66 Pulse: 79 Resp: 18 Temp: 97.6 ??F (36.4 ??C) SpO2: 96% CONSTITUTIONAL: CALM. EYES: PERRLA, EOMI ENT/MOUTH/NECK: EXT EAR NORMAL, NARES PATENT, OP CLEAR. CV: RRR. PULM: CTA BILATERAL. GI: SOFT, NON TENDER, NON DISTENDED, BOWEL SOUNDS INTACT. : DIAPERS EXT: NO CLUBBING, CYANOSIS, EDEMA, NO CALF TENDERNESS JAM'S SIGNS NEGATIVE. MSK: TONE, STRENGTH, GAIT SKIN: DRESSINGS, SURGICAL WOUND, EDEMA, LESIONS RING WORM LESIONS DRY CLEAN, FADING GRADUALLY. NEURO: A&OX3, REFLEXES, SENSATION, STRENGTH RIGHT /5 AND LEFT /5 PSYCH: MOOD, AFFECT LABS/IMAGING: I reviewed the lab test results as follow: POC Glucose POC Glucose 10/07/17 0634 151(A) 10/06/172013 151(A) 10/06/172012 151(A) Results for MARIA LONG ( ) as of 09/21/2017 14:12 Ref. Range 09/21/2017 04:20 Glucose mg/dL Blood Latest Ref Range: 74 - 106 mg/dL 113 (H) Bun mg/dL Blood Latest Ref Range: 7 - 21 mg/dL 15 Creatinine S Latest Ref Range: 0.50 - 1.30 mg/dL 0.70 Sodium mmol/L Blood Latest Ref Range: 136 - 145 mmol/L 138 Potassium mmol/L Blood Latest Ref Range: 3.5 - 5.1 mmol/L 3.8 Chloride Latest Ref Range: 98 - 107 mmol/L 101 CO2 Latest Ref Range: 22 - 31 mmol/L 28 Calcium mg/dL Blood Latest Ref Range: 8.5 - 10.1 mg/dL 9.1 Anion Gap Blood Latest Ref Range: 8 - 16 mmol/L 9 Egfr By MDRD ml/Min/1.73 M2 Blood Latest Ref Range: >60 mL/min/1.73m2 >60 Egfr By MDRD ml/Min/1.73 M2 Blood Afr.Amer Latest Ref Range: >60 mL/min/1.73m2 >60 HCT % Blood Latest Ref Range: 35.9 - 45.5 % 44.3 HGB gm/dL Blood Latest Ref Range: 12.0 - 15.6 gm/dL 15.1 MCH pg Blood Latest Ref Range: 26.7 - 34.0 pg 31.7 MCHC gm/dL Blood Latest Ref Range: 30.8 - 35.9 gm/dL 34.1 MCV fL Blood Latest Ref Range: 80.7 - 98.3 fl 92.9 MPV fL Blood Latest Ref Range: 9.4 - 12.[address] X(10)9/L Blood Latest Ref Range: 153 - 416 x10E9/L 240 RDW-Cv % Blood Latest Ref Range: 12.1 - 14.9 % 11.9 (L) WBC X(10)9/L Blood Latest Ref Range: 4.4 - 10.7 x10E9/L 10.6 Rbc X(10)12/L Blood Latest Ref Range: 3.80 - 5.20 x10E12/L 4.77 CURRENT MEDS: Scheduled/Continuous Medications Scheduled Medication Dose/Rate, Route, Frequency Last Action aspirin EC tablet 81 mg 81 mg, PO, Once a day Given: 10/07 833 atorvastatin (LIPITOR) tablet 40 mg 40 mg, PO, Nightly Given: 10/06 2117 glimepiride (AMARYL) tablet 4 mg 4 mg, PO, Daily with breakfast Given: 10/07 833 griseofulvin (JOSELITO-PEG) tablet 250 mg 250 mg, PO, BID PC Given: 10/07 1728 metFORMIN (GLUCOPHAGE) tablet 500 mg 500 mg, PO, BID with meals Given: 10/07 1728 miconazole (MICOTIN) 2 % cream No Dose/Rate, TP, BID Given: 10/07 841 senna (SENOKOT) tablet 8.6 mg 8.6 mg, PO, Nightly Given: 10/06 2117 glucose ??? dextrose 5 % and sodium chloride 0.45 % ??? dextrose ??? glucagon ??? lactulose No Known Allergies MEDICAL DECISION MAKING/PLAN: Patient Active Problem List Diagnosis ??? Essential hypertension ??? Diabetes mellitus without mention of complication, type II or unspecified type, uncontrolled ??? Hemiplegia affecting right dominant side ??? Dysarthria ??? Dyslipidemia with high density lipoprotein below reference range and triglyceride above reference range due to type 2 diabetes mellitus ??? Multiple lacunar infarcts ??? Morbid obesity ?? CVA / right tristan: 09/17 stable. Therapies initiated. 09/18 stable. Continue therapies. 09/21 stable. Continues therapies. 09/25 improving. Continue therapies. 09/28 improving well. Continue therapies. 10/01 keep improving. Family training given today with patient. 10/07 improving. Continue therapies. Patient is happy with her progress. ?? CVA PRX: ASA+Lipitor. ?? HTN: 09/17 within nornal limit without treatment. Observe closely. 09/18 low level of normal range. On no treatment. Observe. 09/21 within nornal limit without treatment. F/up. 09/25 within nornal limit. Observe. 09/30 slightly low on no treatment. F/up. 10/07 within nornal limit.. Observe. ?? Diabetes mellitus follow up: 09/17 BS is significantly hig. I started her on Glimepiride 4 mg daily and d/c Lantus. Continue Metformin. 09/18 BS remains high. I started alogliptin along with others. Continue SSI. 09/21 BS is appropriate. Continue current treatment. 09/22 discussed with [employer] [facility], her BS is now within a good range but we don't think she can afford alogliptin at home. It will be d/aislinn and I will adjust her on metformin and Glimepiride only. 09/23 within nornal limit..Observe. 09/24 BS at lunch was 190+ but in PM 74. Observe closely with decrease metformin from today. 09/25 BS is slightly down. I d/c SSI. Continue Glimepiride and Metformin. 09/28 BS increasing today.F/up closely. 09/29 BS appropriately high. Continue current meds. 09/30 bs 151, appropriate for now. Continue treatment. 10/01 appropriate. F/up. 10/07 relatively stable. I discussed with [employer] regarding meds and financial coverage of her meds. ?? Bowel and Bladder functions: 09/17 incontinent of bladder. I discussed with patient of scheduled assistance to toilet. ?? Ring worm skin rash: 09/17 contact isolation was ordered. Lotrimin was started. Observed. 09/21 remains seen. Continue treatment. 09/22 improving. Observe. 09/25 I started her on Griseofulvin orally. Continue ointment. 09/28 the red color of the lesions are fading and the rings are flatten better. Patient is happy. I suggested the Griseofulvin to continue for 14 days course. 09/29 continue improving.10/07 the redness subsides gradually. The raise of the border is also flattened down. Continue Griseofulvin. ?? DVT PRx: 09/17 switch heparin to Lovenox 09/18 asymptomatic. 09/25 d/c Lovenox for good improvement of walking distance. ?? Lab review: 09/21 non significant. F/up. ?? Leda-pharyngeal dysphagia: 09/21 ST note: DIET: NDD3 and Thin liquids. SWALLOWING STRATEGIES: Upright 90 degrees, small bites/sips, slow rate, monitor right cheek for pocketing and alternation of solids/liquids. 10/07 resolved. ?? Mobility progress: I have seen patient in the gym and reviewed the PT notes as follow: 09/17 ambulates 120 feet with fww with R hand splint with minimal assistance for safety and balance. gait deiations include dec joseline dec step length, dec control intermittently of R knee, dec base of support. 09/18 t/f with minimal assistance. ambulates 20 ft with RW and min assist for balance. Gait deviations include decreased joseline, step length, increased trunk flexion. Slight path deviation x 3, difficulty navigating walker around cluttered corners. 09/22 ambulates 200 feet with R hand splint walker and conotact guard asssitance. gait deviations include dec joseline dec step length very slight r knee hyperextension but pt is able to control with cues. 09/23 ambulates 200 feet with fww and close supervision for safety. gait deviations include dec joseline dec step length, very slight r knee hyperextension. Ambulates 100 feet with single point cane and cga for safety. gait deviaitons include decc cdence dec step length, slightly dec R foot clearance. 09/25 ambulates 200 feet with fww and close supervision for safety. ambulates 100 feet with single point cane and contact guard assistance for safety. gait deviations include dec joseline dec step length, inc trunk flexion with single point cane needs cues for increasing RLE step length 09/28 ambulates 200 feet with fww and close supervision, no lob or safety issues noted. ambulates 140 feet with single point cane and contact guard assitance for safety, one instasnce of verbal cues for clearing R foot required. gait deviaiton sinclude dec joseline dec step lenght, inc trunk flexion,slightly uneven step lengths. 09/30 ambulates 300 feet with fww and close supervision. gait deviations include dec joseline dec step length, inc trunk flexion; ambualtes 100 feet with single point ncane and close supervision; dec step length and uneven step length on the R, dec R foot clearance but does not drag foot. 10/07 ambulates 200 feet x 3 with fww and modified independence. gait deviaitons include dec caddence dec step length, inc trunk felxion. ambulates 100 feet without assistive device with cga for safeyand no loss of balance or safety issues noted. ?? Personal care activity progress: I have reviewed OT progress notes as follow: 09/17 Pt demos good progress with R UE neuro re-education and functional transfers. POC to continue addressing R UE function, cognitive skills and balance. 09/29 In addition to transfer to and from mat/wc with SBA, pt completes functional mobilty approximately 150 feet pushing wc with cues for attention to R LE especially as pt fatigues. She require CGA for balance during task. 10/01 Pt family expresses concern with bathroom setup and having a garden tub, which is a tub with awider ledge and a step to get into. Discussed having pt sit on wider ledge of tub then swing LEs into tub stand using grab bars and transfer to showre chair. Pt demos understanding on narrow ledge ofstandard tub shower and pt daughter provides CGA with cues for positioning from therapist after demo nstration. Pt and family are educated on recommendation to obtain shower chair and at least two grab bars at [place] and they are agreeable. 10/07 KITCHEN TASK: She demos modified independence with simple and simple- moderate level cooking tasks. ?? Cognitive linguistic functions: I have reviewed ST notes as follow: 09/21 COMPREHENSION: Supervisory assist for basic comprehension. WFL for basic conversation and increased amount of assist for complex conversation. EXPRESSION:Supervisory assist for verbal expression. WFL for basic conversation with increased amount of assist for complex conversation. Improved speech intelligibility over the past few days. REASONING: Moderately impaired for basic reasoning tasks.Cues required half of the time for reasoning. Decreased reasoning, thought organization, insight, and attention. MEMORY: Moderately impaired for basic memory tasks. She requires cues half of the timefor basic memory. Noted difficulty with delayed recall paragraph recall, and carryover of novel information. 09/28 Pt independently recalled weekend and name of new grandchild. Pt recalled 3/3 items after a 5-10 minute delay. Pt completed a scheduling activity to attend to thought organization, problem solving, attention, and reasoning with 50% accuracy with moderate to maximal assistance. Pt presented with slow processing speed during task. Pt completed problem solving task with 78% accuracy with minimal assistance. Pt required moderate to maximal assistance to attend to constraints of task. Recommendto continue current plan of care. ?? Coordination with consultants/read notes: ?? 09/[address] today. Progress and barriers ajnd discharge plan were discussed.Total time: 30 minutes, 1/2 spent in coordination of care. 09/[address] today. Progress and barriers ajnd discharge plan were discussed. Total time: 30 minutes, 1/2 spent in coordination of care. 10/[address] took place today. Progress and barriers ajnd discharge plan were discussed. Total time: 30 minutes, 1/2 spent in coordination of care. ?? CODE: Full. YUE REED MD 6:07 PM * Ellie Martínez MD - 10/05/2017 5:06 PM CDT REHAB PROGRESS NOTE Patient: Maria Long, 57 y.o. CC: Patient indicates no new complaints, she is pleased with functional gains. PFSHX: PMH: I have reviewed and there is no change Family: I have reviewed and there is no change Social: I have reviewed and there is no change REVIEW OF SYSTEMS: She denies chest pain, dyspnea, nausea or emesis. OBJECTIVE: Vitals: Vitals: 10/05/17 0735 BP: 122/69 Pulse: 79 Resp: 18 Temp: 98.3 ??F (36.8 ??C) SpO2: 97% CONSTITUTIONAL: Alert, responsive. EYES: PERRLA, EOMI ENT/MOUTH/NECK: EXT EAR NORMAL, NARES PATENT, OP CLEAR. CV: RRR. PULM: CTA BILATERAL. GI: SOFT, NON TENDER, NON DISTENDED, BOWEL SOUNDS INTACT. : WNL EXT: Palpable pulses MSK: no peripheral joint pain or swelling. SKIN: fungal rash persists on extremities. NEURO: A&OX3, Right hemiplegia. PSYCH: MOOD stable, AFFECT bright and reactive. LABS/IMAGING: Recent labs reviewed. POC Glucose POC Glucose 10/05/17 1200 178(A) 10/05/17 0627 173(A) 10/04/17 2207 190(A) 10/04/17 1712 152(A) CURRENT MEDS: Scheduled/Continuous Medications Scheduled Medication Dose/Rate, Route, Frequency Last Action aspirin EC tablet 81 mg 81 mg, PO, Once a day Given: 10/05 857 atorvastatin (LIPITOR) tablet 40 mg 40 mg, PO, Nightly Given: 10/04 2025 glimepiride (AMARYL) tablet 4 mg 4 mg, PO, Daily with breakfast Given: 10/06 855 griseofulvin (JOSELITO-PEG) tablet 250 mg 250 mg, PO, BID PC Given: 10/05 857 metFORMIN (GLUCOPHAGE) tablet 500 mg 500 mg, PO, BID with meals Given: 10/05 857 miconazole (MICOTIN) 2 % cream No Dose/Rate, TP, BID Given: 10/05 858 senna (SENOKOT) tablet 8.6 mg 8.6 mg, PO, Nightly Given: 10/04 2026 glucose ??? dextrose 5 % and sodium chloride 0.45 % ??? dextrose ??? glucagon ??? lactulose No Known Allergies MEDICAL DECISION MAKING/PLAN: Patient Active Problem List Diagnosis ??? Essential hypertension ??? Diabetes mellitus without mention of complication, type II or unspecified type, uncontrolled ??? Hemiplegia affecting right dominant side ??? Dysarthria ??? Dyslipidemia with high density lipoprotein below reference range and triglyceride above reference range due to type 2 diabetes mellitus ??? Multiple lacunar infarcts ??? Morbid obesity ?? CVA / right tristan: Progress d/w team in Conference. Final recommendations for equipment reviewed.Anticipate discharge on October 10. ?? CVA PRX: ASA+Lipitor. HTN: BP in acceptable range. Diabetes mellitus follow up: Uncontrolled despite Amaryl, low dose Glucophage. Will d/w hospitalist. ?? Bowel and Bladder functions: Offering frequent toileting to minimize incontinence. ?? Ring worm skin rash: On oral Griseofulvin. ?? DVT PRx: Off LMWH due to markedly improved mobility. ?? Leda-pharyngeal dysphagia: Currently on bite cut solids, cleared for thin liquids. CODE: Full. ELLIE MARTÍNEZ MD 5:06 PM * Shanell Oh RD - 10/02/2017 4:17 PM CDT Medical Nutrition Therapy Progress Note Significant Information: po intake 100% Relevant Medications: Scheduled/Continuous Medications Scheduled Medication Dose/Rate, Route, Frequency Last Action aspirin EC tablet 81 mg 81 mg, PO, Once a day Given: 10/03 839 atorvastatin (LIPITOR) tablet 40 mg 40 mg, PO, Nightly Given: 10/01 2025 glimepiride (AMARYL) tablet 4 mg 4 mg, PO, Daily with breakfast Given: 10/02 840 griseofulvin (JOSELITO-PEG) tablet 250 mg 250 mg, PO, BID PC Given: 10/02 840 metFORMIN (GLUCOPHAGE) tablet 500 mg 500 mg, PO, BID with meals Given: 10/02 840 miconazole (MICOTIN) 2 % cream No Dose/Rate, TP, BID Given: 10/02 840 senna (SENOKOT) tablet 8.6 mg 8.6 mg, PO, Nightly Given: 10/01 2025 Relevant Labs: Most recent labs reviewed. POC Glucose POC Glucose 10/02/17 1152 200(A) 10/02/17 0658 182(A) 10/02/17 0612 73(A) 10/01/17 2217 125 10/01/172003 100 10/01/172003 151(A) 10/01/172002 125 Weight: Admit Weight: 196 lb 6 oz (89.1 kg) Latest Weight: 192 lb 8 oz (87.3 kg) (09/30/17 0600) Weight Comment: weight loss; bmi 31 Diet Order: Dietary Orders Start Ordered 09/21/17 0808 Adult Diet Therapeutic Diet: Low Fat, Carb Controlled; Carbohydrate Controlled: 5 Carb/75gm/meal (2000 calories); Diet Texture: Regular Bite-Cut; Liquid Consistency: All Liquids - No Restrictions Diet effective now Question Answer Comment Therapeutic Diet: Low Fat Therapeutic Diet: Carb Controlled Carbohydrate Controlled: 5 Carb/75gm/meal (2000 calories) Diet Texture: Regular Bite-Cut Liquid Consistency All Liquids - No Restrictions Place order in third democrat system. Done 09/21/17 0807 Nutrition Related Concerns: None Skin: Intact Energy Needs: Total Energy Estimated Needs: 25 calories/kg (89) = 2225 Total Protein Estimated Needs: 1.5 gm protien /kg = 135 Total Fluid Estimated Needs: 1 mL fluid/kcalorie Nutrition Support: No Goals: PO intake > or = to 50-100 % most meals & snacks Care Plans: Plan of Care - Nutrition Care Plans (Notes for yesterday and today) 1 Author: Shanell Oh RD Service: (none) Author Type: Registered Dietitian Filed: 10/02/2017 4:17 PM Date of Service: 10/02/2017 4:17 PM Status: Signed Director Of Maintenance: Shanell Oh RD (Registered Dietitian) Problem: Unintended Weight Loss Related to: hospitalizaiton As Evidenced By: pt stating she lost 29# in the past month since she had been hospitalized Goal: Clinical Nutrition Goal Outcome: Progressing 09/16/17 1612 09/24/17 0912 Nutrition Goals Primary Goal Adequate Meals and Snack/Oral Nutrition Supplement Intake -- Primary Goal Progress -- Ongoing Primary Indicator/Monitor PO intake 75-100% -- Intervention: Medical Nutrition Therapy Interventions 09/16/17 1612 Nutrition Interventions Meals and Snacks General/healthful diet Coordination of Nutrition Care Continue to Monitor Additional Comments/Recommendations: No issues; continue same diet order; reviewed carb controlled; hi fiber diet SHANELL OH RD 10/02/17 4:17 PM * Yue Reed MD - 10/01/2017 9:42 PM CDT REHAB PROGRESS NOTE Patient: Maria Long, 57 y.o. CC: No c/o. The rest of ROS is negative. PFSHX: PMH: I have reviewed and there is no change Family: I have reviewed and there is no change Social: I have reviewed and there is no change OBJECTIVE: Vitals: Vitals: 10/01/17 0932 BP: 122/70 Pulse: 79 Resp: 20 Temp: 97.7 ??F (36.5 ??C) SpO2: 95% CONSTITUTIONAL: CALM. EYES: PERRLA, EOMI ENT/MOUTH/NECK: EXT EAR NORMAL, NARES PATENT, OP CLEAR. CV: RRR. PULM: CTA BILATERAL. GI: SOFT, NON TENDER, NON DISTENDED, BOWEL SOUNDS INTACT. : DIAPERS EXT: NO CLUBBING, CYANOSIS, EDEMA, NO CALF TENDERNESS JAM'S SIGNS NEGATIVE. MSK: TONE, STRENGTH, GAIT SKIN: DRESSINGS, SURGICAL WOUND, EDEMA, LESIONS RING WORM LESIONS DRY CLEAN, FADING GRADUALLY. NEURO: A&OX3, REFLEXES, SENSATION, STRENGTH RIGHT /5 AND LEFT /5 PSYCH: MOOD, AFFECT LABS/IMAGING: I reviewed the lab test results as follow: POC Glucose POC Glucose 10/01/172003 100 10/01/172003 151(A) 10/01/172002 125 Results for MARIA LONG ( ) as of 09/21/2017 14:12 Ref. Range 09/21/2017 04:20 Glucose mg/dL Blood Latest Ref Range: 74 - 106 mg/dL 113 (H) Bun mg/dL Blood Latest Ref Range: 7 - 21 mg/dL 15 Creatinine S Latest Ref Range: 0.50 - 1.30 mg/dL 0.70 Sodium mmol/L Blood Latest Ref Range: 136 - 145 mmol/L 138 Potassium mmol/L Blood Latest Ref Range: 3.5 - 5.1 mmol/L 3.8 Chloride Latest Ref Range: 98 - 107 mmol/L 101 CO2 Latest Ref Range: 22 - 31 mmol/L 28 Calcium mg/dL Blood Latest Ref Range: 8.5 - 10.1 mg/dL 9.1 Anion Gap Blood Latest Ref Range: 8 - 16 mmol/L 9 Egfr By MDRD ml/Min/1.73 M2 Blood Latest Ref Range: >60 mL/min/1.73m2 >60 Egfr By MDRD ml/Min/1.73 M2 Blood Afr.Amer Latest Ref Range: >60 mL/min/1.73m2 >60 HCT % Blood Latest Ref Range: 35.9 - 45.5 % 44.3 HGB gm/dL Blood Latest Ref Range: 12.0 - 15.6 gm/dL 15.1 MCH pg Blood Latest Ref Range: 26.7 - 34.0 pg 31.7 MCHC gm/dL Blood Latest Ref Range: 30.8 - 35.9 gm/dL 34.1 MCV fL Blood Latest Ref Range: 80.7 - 98.3 fl 92.9 MPV fL Blood Latest Ref Range: 9.4 - 12.[address] X(10)9/L Blood Latest Ref Range: 153 - 416 x10E9/L 240 RDW-Cv % Blood Latest Ref Range: 12.1 - 14.9 % 11.9 (L) WBC X(10)9/L Blood Latest Ref Range: 4.4 - 10.7 x10E9/L 10.6 Rbc X(10)12/L Blood Latest Ref Range: 3.80 - 5.20 x10E12/L 4.77 CURRENT MEDS: Scheduled/Continuous Medications Scheduled Medication Dose/Rate, Route, Frequency Last Action aspirin EC tablet 81 mg 81 mg, PO, Once a day Given: 10/01 848 atorvastatin (LIPITOR) tablet 40 mg 40 mg, PO, Nightly Given: 10/01 2025 glimepiride (AMARYL) tablet 4 mg 4 mg, PO, Daily with breakfast Given: 10/02 847 griseofulvin (JOSELITO-PEG) tablet 250 mg 250 mg, PO, BID PC Given: 10/02 1727 metFORMIN (GLUCOPHAGE) tablet 500 mg 500 mg, PO, BID with meals Given: 10/02 1727 miconazole (MICOTIN) 2 % cream No Dose/Rate, TP, BID Given: 10/01 2024 senna (SENOKOT) tablet 8.6 mg 8.6 mg, PO, Nightly Given: 10/01 2025 glucose ??? dextrose 5 % and sodium chloride 0.45 % ??? dextrose ??? glucagon ??? lactulose No Known Allergies MEDICAL DECISION MAKING/PLAN: Patient Active Problem List Diagnosis ??? Essential hypertension ??? Diabetes mellitus without mention of complication, type II or unspecified type, uncontrolled ??? Hemiplegia affecting right dominant side ??? Dysarthria ??? Dyslipidemia with high density lipoprotein below reference range and triglyceride above reference range due to type 2 diabetes mellitus ??? Multiple lacunar infarcts ??? Morbid obesity ?? CVA / right tristan: 09/17 stable. Therapies initiated. 09/18 stable. Continue therapies. 09/21 stable. Continues therapies. 09/25 improving. Continue therapies. 09/28 improving well. Continue therapies. 10/01 keep improving. Family training given today with patient. ?? CVA PRX: ASA+Lipitor. ?? HTN: 09/17 within nornal limit without treatment. Observe closely. 09/18 low level of normal range. On no treatment. Observe. 09/21 within nornal limit without treatment. F/up. 09/25 within nornal limit. Observe. 09/30 slightly low on no treatment. F/up. ?? Diabetes mellitus follow up: 09/17 BS is significantly hig. I started her on Glimepiride 4 mg daily and d/c Lantus. Continue Metformin. 09/18 BS remains high. I started alogliptin along with others. Continue SSI. 09/21 BS is appropriate. Continue current treatment. 09/22 discussed with [employer] [facility], her BS is now within a good range but we don't think she can afford alogliptin at home. It will be d/aislinn and I will adjust her on metformin and Glimepiride only. 09/23 within nornal limit..Observe. 09/24 BS at lunch was 190+ but in PM 74. Observe closely with decrease metformin from today. 09/25 BS is slightly down. I d/c SSI. Continue Glimepiride and Metformin. 09/28 BS increasing today.F/up closely. 09/29 BS appropriately high. Continue current meds. 6/20 bs 151, appropriate for now. Continue treatment. 10/01 appropriate. F/up. ?? Bowel and Bladder functions: 09/17 incontinent of bladder. I discussed with patient of scheduled assistance to toilet. ?? Ring worm skin rash: 09/17 contact isolation was ordered. Lotrimin was started. Observed. 09/21 remains seen. Continue treatment. 09/22 improving. Observe. 09/25 I started her on Griseofulvin orally. Continue ointment. 09/28 the red color of the lesions are fading and the rings are flatten better. Patient is happy. I suggested the Griseofulvin to continue for 14 days course. 09/29 continue improving. ?? DVT PRx: 09/17 switch heparin to Lovenox 09/18 asymptomatic. 09/25 d/c Lovenox for good improvement of walking distance. ?? Lab review: 09/21 non significant. F/up. ?? Leda-pharyngeal dysphagia: 09/21 ST note: DIET: NDD3 and Thin liquids. SWALLOWING STRATEGIES: Upright 90 degrees, small bites/sips, slow rate, monitor right cheek for pocketing and alternation of solids/liquids. ?? Mobility progress: I have seen patient in the gym and reviewed the PT notes as follow: 09/17 ambulates 120 feet with fww with R hand splint with minimal assistance for safety and balance. gait deiations include dec joseline dec step length, dec control intermittently of R knee, dec base of support. 09/18 t/f with minimal assistance. ambulates 20 ft with RW and min assist for balance. Gait deviations include decreased joseline, step length, increased trunk flexion. Slight path deviation x 3, difficulty navigating walker around cluttered corners. 09/22 ambulates 200 feet with R hand splint walker and conotact guard asssitance. gait deviations include dec joseline dec step length very slight r knee hyperextension but pt is able to control with cues. 09/23 ambulates 200 feet with fww and close supervision for safety. gait deviations include dec joseline dec step length, very slight r knee hyperextension. Ambulates 100 feet with single point cane and cga for safety. gait deviaitons include decc cdence dec step length, slightly dec R foot clearance. 09/25 ambulates 200 feet with fww and close supervision for safety. ambulates 100 feet with single point cane and contact guard assistance for safety. gait deviations include dec joseline dec step length, inc trunk flexion with single point cane needs cues for increasing RLE step length 09/28 ambulates 200 feet with fww and close supervision, no lob or safety issues noted. ambulates 140 feet with single point cane and contact guard assitance for safety, one instasnce of verbal cues for clearing R foot required. gait deviaiton sinclude dec joseline dec step lenght, inc trunk flexion,slightly uneven step lengths. 09/30 ambulates 300 feet with fww and close supervision. gait deviations include dec joseline dec step length, inc trunk flexion; ambualtes 100 feet with single point ncane and close supervision; dec step length and uneven step length on the R, dec R foot clearance but does not drag foot. ?? Personal care activity progress: I have reviewed OT progress notes as follow: 09/17 Pt demos good progress with R UE neuro re-education and functional transfers. POC to continue addressing R UE function, cognitive skills and balance. 09/29 In addition to transfer to and from mat/wc with SBA, pt completes functional mobilty approximately 150 feet pushing wc with cues for attention to R LE especially as pt fatigues. She require CGA for balance during task. 10/01 Pt family expresses concern with bathroom setup and having a garden tub, which is a tub with awider ledge and a step to get into. Discussed having pt sit on wider ledge of tub then swing LEs into tub stand using grab bars and transfer to showre chair. Pt demos understanding on narrow ledge ofstandard tub shower and pt daughter provides CGA with cues for positioning from therapist after demo nstration. Pt and family are educated on recommendation to obtain shower chair and at least two grab bars at [place] and they are agreeable. ?? Cognitive linguistic functions: I have reviewed ST notes as follow: 09/21 COMPREHENSION: Supervisory assist for basic comprehension. WFL for basic conversation and increased amount of assist for complex conversation. EXPRESSION:Supervisory assist for verbal expression. WFL for basic conversation with increased amount of assist for complex conversation. Improved speech intelligibility over the past few days. REASONING: Moderately impaired for basic reasoning tasks.Cues required half of the time for reasoning. Decreased reasoning, thought organization, insight, and attention. MEMORY: Moderately impaired for basic memory tasks. She requires cues half of the timefor basic memory. Noted difficulty with delayed recall paragraph recall, and carryover of novel information. 09/28 Pt independently recalled weekend and name of new grandchild. Pt recalled 3/3 items after a 5-10 minute delay. Pt completed a scheduling activity to attend to thought organization, problem solving, attention, and reasoning with 50% accuracy with moderate to maximal assistance. Pt presented with slow processing speed during task. Pt completed problem solving task with 78% accuracy with minimal assistance. Pt required moderate to maximal assistance to attend to constraints of task. Recommendto continue current plan of care. ?? Coordination with consultants/read notes: ?? 09/[address] took [address] today. Progress and barriers ajnd discharge plan were discussed.Total time: 30 minutes, 1/2 spent in coordination of care. 09/[address] today. Progress and barriers ajnd discharge plan were discussed. Total time: 30 minutes, 1/2 spent in coordination of care. ?? CODE: Full. YUE REED MD 9:42 PM * Yue Reed MD - 09/30/2017 11:19 PM CDT REHAB PROGRESS NOTE Patient: Maria Long, 57 y.o. CC: No c/o. The rest of ROS is negative. PFSHX: PMH: I have reviewed and there is no change Family: I have reviewed and there is no change Social: I have reviewed and there is no change OBJECTIVE: Vitals: Vitals: 09/30/172030 BP: 99/65 Pulse: 96 Resp: 18 Temp: 98.7 ??F (37.1 ??C) SpO2: 93% CONSTITUTIONAL: CALM. EYES: PERRLA, EOMI ENT/MOUTH/NECK: EXT EAR NORMAL, NARES PATENT, OP CLEAR. CV: RRR. PULM: CTA BILATERAL. GI: SOFT, NON TENDER, NON DISTENDED, BOWEL SOUNDS INTACT. : DIAPERS EXT: NO CLUBBING, CYANOSIS, EDEMA, NO CALF TENDERNESS JAM'S SIGNS NEGATIVE. MSK: TONE, STRENGTH, GAIT SKIN: DRESSINGS, SURGICAL WOUND, EDEMA, LESIONS RING WORM LESIONS DRY CLEAN, FADING GRADUALLY. NEURO: A&OX3, REFLEXES, SENSATION, STRENGTH RIGHT /5 AND LEFT /5 PSYCH: MOOD, AFFECT LABS/IMAGING: I reviewed the lab test results as follow: POC Glucose POC Glucose 09/30/17 1840 151(A) Results for MARIA LONG ( ) as of 09/21/2017 14:12 Ref. Range 09/21/2017 04:20 Glucose mg/dL Blood Latest Ref Range: 74 - 106 mg/dL 113 (H) Bun mg/dL Blood Latest Ref Range: 7 - 21 mg/dL 15 Creatinine S Latest Ref Range: 0.50 - 1.30 mg/dL 0.70 Sodium mmol/L Blood Latest Ref Range: 136 - 145 mmol/L 138 Potassium mmol/L Blood Latest Ref Range: 3.5 - 5.1 mmol/L 3.8 Chloride Latest Ref Range: 98 - 107 mmol/L 101 CO2 Latest Ref Range: 22 - 31 mmol/L 28 Calcium mg/dL Blood Latest Ref Range: 8.5 - 10.1 mg/dL 9.1 Anion Gap Blood Latest Ref Range: 8 - 16 mmol/L 9 Egfr By MDRD ml/Min/1.73 M2 Blood Latest Ref Range: >60 mL/min/1.73m2 >60 Egfr By MDRD ml/Min/1.73 M2 Blood Afr.Amer Latest Ref Range: >60 mL/min/1.73m2 >60 HCT % Blood Latest Ref Range: 35.9 - 45.5 % 44.3 HGB gm/dL Blood Latest Ref Range: 12.0 - 15.6 gm/dL 15.1 MCH pg Blood Latest Ref Range: 26.7 - 34.0 pg 31.7 MCHC gm/dL Blood Latest Ref Range: 30.8 - 35.9 gm/dL 34.1 MCV fL Blood Latest Ref Range: 80.7 - 98.3 fl 92.9 MPV fL Blood Latest Ref Range: 9.4 - 12.[address] X(10)9/L Blood Latest Ref Range: 153 - 416 x10E9/L 240 RDW-Cv % Blood Latest Ref Range: 12.1 - 14.9 % 11.9 (L) WBC X(10)9/L Blood Latest Ref Range: 4.4 - 10.7 x10E9/L 10.6 Rbc X(10)12/L Blood Latest Ref Range: 3.80 - 5.20 x10E12/L 4.77 CURRENT MEDS: Scheduled/Continuous Medications Scheduled Medication Dose/Rate, Route, Frequency Last Action aspirin EC tablet 81 mg 81 mg, PO, Once a day Given: 09/30 816 atorvastatin (LIPITOR) tablet 40 mg 40 mg, PO, Nightly Given: 09/30 2041 clotrimazole (LOTRIMIN) 1 % cream No Dose/Rate, TP, BID Given: 09/30 2041 glimepiride (AMARYL) tablet 4 mg 4 mg, PO, Daily with breakfast Given: 09/30 816 griseofulvin (JOSELITO-PEG) tablet 250 mg 250 mg, PO, BID PC Given: 09/30 1729 metFORMIN (GLUCOPHAGE) tablet 500 mg 500 mg, PO, BID with meals Given: 09/30 1728 senna (SENOKOT) tablet 8.6 mg 8.6 mg, PO, Nightly Given: 09/30 2041 glucose ??? dextrose 5 % and sodium chloride 0.45 % ??? dextrose ??? glucagon ??? lactulose No Known Allergies MEDICAL DECISION MAKING/PLAN: Patient Active Problem List Diagnosis ??? Essential hypertension ??? Diabetes mellitus without mention of complication, type II or unspecified type, uncontrolled ??? Hemiplegia affecting right dominant side ??? Dysarthria ??? Dyslipidemia with high density lipoprotein below reference range and triglyceride above reference range due to type 2 diabetes mellitus ??? Multiple lacunar infarcts ??? Morbid obesity ?? CVA / right tristan: 09/17 stable. Therapies initiated. 09/18 stable. Continue therapies. 09/21 stable. Continues therapies. 09/25 improving. Continue therapies. 09/28 improving well. Continue therapies. ?? CVA PRX: ASA+Lipitor. ?? HTN: 09/17 within nornal limit without treatment. Observe closely. 09/18 low level of normal range. On no treatment. Observe. 09/21 within nornal limit without treatment. F/up. 09/25 within nornal limit. Observe. 09/30 slightly low on no treatment. F/up. ?? Diabetes mellitus follow up: 09/17 BS is significantly hig. I started her on Glimepiride 4 mg daily and d/c Lantus. Continue Metformin. 09/18 BS remains high. I started alogliptin along with others. Continue SSI. 09/21 BS is appropriate. Continue current treatment. 09/22 discussed with [employer] [facility], her BS is now within a good range but we don't think she can afford alogliptin at home. It will be d/aislinn and I will adjust her on metformin and Glimepiride only. 09/23 within nornal limit..Observe. 09/24 BS at lunch was 190+ but in PM 74. Observe closely with decrease metformin from today. 09/25 BS is slightly down. I d/c SSI. Continue Glimepiride and Metformin. 09/28 BS increasing today.F/up closely. 09/29 BS appropriately high. Continue current meds. 09/30 bs 151, appropriate for now. Continue treatment. ?? Bowel and Bladder functions: 09/17 incontinent of bladder. I discussed with patient of scheduled assistance to toilet. ?? Ring worm skin rash: 09/17 contact isolation was ordered. Lotrimin was started. Observed. 09/21 remains seen. Continue treatment. 09/22 improving. Observe. 09/25 I started her on Griseofulvin orally. Continue ointment. 09/28 the red color of the lesions are fading and the rings are flatten better. Patient is happy. I suggested the Griseofulvin to continue for 14 days course. 09/29 continue improving. ?? DVT PRx: 09/17 switch heparin to Lovenox 09/18 asymptomatic. 09/25 d/c Lovenox for good improvement of walking distance. ?? Lab review: 09/21 non significant. F/up. ?? Leda-pharyngeal dysphagia: 09/21 ST note: DIET: NDD3 and Thin liquids. SWALLOWING STRATEGIES: Upright 90 degrees, small bites/sips, slow rate, monitor right cheek for pocketing and alternation of solids/liquids. ?? Mobility progress: I have seen patient in the gym and reviewed the PT notes as follow: 09/17 ambulates 120 feet with fww with R hand splint with minimal assistance for safety and balance. gait deiations include dec joseline dec step length, dec control intermittently of R knee, dec base of support. 09/18 t/f with minimal assistance. ambulates 20 ft with RW and min assist for balance. Gait deviations include decreased joseline, step length, increased trunk flexion. Slight path deviation x 3, difficulty navigating walker around cluttered corners. 09/22 ambulates 200 feet with R hand splint walker and conotact guard asssitance. gait deviations include dec joseline dec step length very slight r knee hyperextension but pt is able to control with cues. 09/23 ambulates 200 feet with fww and close supervision for safety. gait deviations include dec joseline dec step length, very slight r knee hyperextension. Ambulates 100 feet with single point cane and cga for safety. gait deviaitons include decc cdence dec step length, slightly dec R foot clearance. 09/25 ambulates 200 feet with fww and close supervision for safety. ambulates 100 feet with single point cane and contact guard assistance for safety. gait deviations include dec joseline dec step length, inc trunk flexion with single point cane needs cues for increasing RLE step length 09/28 ambulates 200 feet with fww and close supervision, no lob or safety issues noted. ambulates 140 feet with single point cane and contact guard assitance for safety, one instasnce of verbal cues for clearing R foot required. gait deviaiton sinclude dec joseline dec step lenght, inc trunk flexion,slightly uneven step lengths. 09/30 ambulates 300 feet with fww and close supervision. gait deviations include dec joseline dec step length, inc trunk flexion; ambualtes 100 feet with single point ncane and close supervision; dec step length and uneven step length on the R, dec R foot clearance but does not drag foot. ?? Personal care activity progress: I have reviewed OT progress notes as follow: 09/17 Pt demos good progress with R UE neuro re-education and functional transfers. POC to continue addressing R UE function, cognitive skills and balance. 09/29 In addition to transfer to and from mat/wc with SBA, pt completes functional mobilty approximately 150 feet pushing wc with cues for attention to R LE especially as pt fatigues. She require CGA for balance during task. ?? Cognitive linguistic functions: I have reviewed ST notes as follow: 09/21 COMPREHENSION: Supervisory assist for basic comprehension. WFL for basic conversation and increased amount of assist for complex conversation. EXPRESSION:Supervisory assist for verbal expression. WFL for basic conversation with increased amount of assist for complex conversation. Improved speech intelligibility over the past few days. REASONING: Moderately impaired for basic reasoning tasks.Cues required half of the time for reasoning. Decreased reasoning, thought organization, insight, and attention. MEMORY: Moderately impaired for basic memory tasks. She requires cues half of the timefor basic memory. Noted difficulty with delayed recall paragraph recall, and carryover of novel information. 09/28 Pt independently recalled weekend and name of new grandchild. Pt recalled 3/3 items after a 5-10 minute delay. Pt completed a scheduling activity to attend to thought organization, problem solving, attention, and reasoning with 50% accuracy with moderate to maximal assistance. Pt presented with slow processing speed during task. Pt completed problem solving task with 78% accuracy with minimal assistance. Pt required moderate to maximal assistance to attend to constraints of task. Recommendto continue current plan of care. ?? Coordination with consultants/read notes: ?? 09/[address] today. Progress and barriers ajnd discharge plan were discussed.Total time: 30 minutes, 1/2 spent in coordination of care. 09/[address] today. Progress and barriers ajnd discharge plan were discussed. Total time: 30 minutes, 1/2 spent in coordination of care. ?? CODE: Full. YUE REED MD 11:19 PM * Yue Reed MD - 09/29/2017 10:31 PM CDT REHAB PROGRESS NOTE Patient: Maria Long, 57 y.o. CC: No c/o. The rest of ROS is negative. PFSHX: PMH: I have reviewed and there is no change Family: I have reviewed and there is no change Social: I have reviewed and there is no change OBJECTIVE: Vitals: Vitals: 09/29/17 0811 BP: 116/69 Pulse: 76 Resp: 18 Temp: 98.8 ??F (37.1 ??C) SpO2: 96% CONSTITUTIONAL: CALM. EYES: PERRLA, EOMI ENT/MOUTH/NECK: EXT EAR NORMAL, NARES PATENT, OP CLEAR. CV: RRR. PULM: CTA BILATERAL. GI: SOFT, NON TENDER, NON DISTENDED, BOWEL SOUNDS INTACT. : DIAPERS EXT: NO CLUBBING, CYANOSIS, EDEMA, NO CALF TENDERNESS JAM'S SIGNS NEGATIVE. MSK: TONE, STRENGTH, GAIT SKIN: DRESSINGS, SURGICAL WOUND, EDEMA, LESIONS NEURO: A&OX3, REFLEXES, SENSATION, STRENGTH RIGHT /5 AND LEFT /5 PSYCH: MOOD, AFFECT LABS/IMAGING: I reviewed the lab test results as follow: POC Glucose POC Glucose 09/29/17 1706 88 09/29/17 1200 154(A) 09/29/17 0648 151(A) Results for MARIA LONG ( ) as of 09/21/2017 14:12 Ref. Range 09/21/2017 04:20 Glucose mg/dL Blood Latest Ref Range: 74 - 106 mg/dL 113 (H) Bun mg/dL Blood Latest Ref Range: 7 - 21 mg/dL 15 Creatinine S Latest Ref Range: 0.50 - 1.30 mg/dL 0.70 Sodium mmol/L Blood Latest Ref Range: 136 - 145 mmol/L 138 Potassium mmol/L Blood Latest Ref Range: 3.5 - 5.1 mmol/L 3.8 Chloride Latest Ref Range: 98 - 107 mmol/L 101 CO2 Latest Ref Range: 22 - 31 mmol/L 28 Calcium mg/dL Blood Latest Ref Range: 8.5 - 10.1 mg/dL 9.1 Anion Gap Blood Latest Ref Range: 8 - 16 mmol/L 9 Egfr By MDRD ml/Min/1.73 M2 Blood Latest Ref Range: >60 mL/min/1.73m2 >60 Egfr By MDRD ml/Min/1.73 M2 Blood Afr.Amer Latest Ref Range: >60 mL/min/1.73m2 >60 HCT % Blood Latest Ref Range: 35.9 - 45.5 % 44.3 HGB gm/dL Blood Latest Ref Range: 12.0 - 15.6 gm/dL 15.1 MCH pg Blood Latest Ref Range: 26.7 - 34.0 pg 31.7 MCHC gm/dL Blood Latest Ref Range: 30.8 - 35.9 gm/dL 34.1 MCV fL Blood Latest Ref Range: 80.7 - 98.3 fl 92.9 MPV fL Blood Latest Ref Range: 9.4 - 12.[address] X(10)9/L Blood Latest Ref Range: 153 - 416 x10E9/L 240 RDW-Cv % Blood Latest Ref Range: 12.1 - 14.9 % 11.9 (L) WBC X(10)9/L Blood Latest Ref Range: 4.4 - 10.7 x10E9/L 10.6 Rbc X(10)12/L Blood Latest Ref Range: 3.80 - 5.20 x10E12/L 4.77 CURRENT MEDS: Scheduled/Continuous Medications Scheduled Medication Dose/Rate, Route, Frequency Last Action aspirin EC tablet 81 mg 81 mg, PO, Once a day Given: 09/29 824 atorvastatin (LIPITOR) tablet 40 mg 40 mg, PO, Nightly Given: 09/29 2113 clotrimazole (LOTRIMIN) 1 % cream No Dose/Rate, TP, BID Given: 09/29 2114 glimepiride (AMARYL) tablet 4 mg 4 mg, PO, Daily with breakfast Given: 09/30 823 griseofulvin (JOSELITO-PEG) tablet 250 mg 250 mg, PO, BID PC Given: 09/29 1730 metFORMIN (GLUCOPHAGE) tablet 500 mg 500 mg, PO, BID with meals Given: 09/29 1729 senna (SENOKOT) tablet 8.6 mg 8.6 mg, PO, Nightly Given: 09/29 2113 glucose ??? dextrose 5 % and sodium chloride 0.45 % ??? dextrose ??? glucagon ??? lactulose No Known Allergies MEDICAL DECISION MAKING/PLAN: Patient Active Problem List Diagnosis ??? Essential hypertension ??? Diabetes mellitus without mention of complication, type II or unspecified type, uncontrolled ??? Hemiplegia affecting right dominant side ??? Dysarthria ??? Dyslipidemia with high density lipoprotein below reference range and triglyceride above reference range due to type 2 diabetes mellitus ??? Multiple lacunar infarcts ??? Morbid obesity ?? CVA / right tristan: 09/17 stable. Therapies initiated. 09/18 stable. Continue therapies. 09/21 stable. Continues therapies. 09/25 improving. Continue therapies. 09/28 improving well. Continue therapies. ?? CVA PRX: ASA+Lipitor. ?? HTN: 6/7 within nornal limit without treatment. Observe closely. 09/18 low level of normal range. On no treatment. Observe. 09/21 within nornal limit without treatment. F/up. 09/25 within nornal limit. Observe. ?? Diabetes mellitus follow up: 09/17 BS is significantly hig. I started her on Glimepiride 4 mg daily and d/c Lantus. Continue Metformin. 09/18 BS remains high. I started alogliptin along with others. Continue SSI. 09/21 BS is appropriate. Continue current treatment. 09/22 discussed with [facility] [employer] [facility], her BS is now within a good range but we don't think she can afford alogliptin at home. It will be d/aislinn and I will adjust her on metformin and Glimepiride only. 09/23 within nornal limit..Observe. 09/24 BS at lunch was 190+ but in PM 74. Observe closely with decrease metformin from today. 09/25 BS is slightly down. I d/c SSI. Continue Glimepiride and Metformin. 09/28 BS increasing today.F/up closely. 09/29 BS appropriately high. Continue current meds. ?? Bowel and Bladder functions: 09/17 incontinent of bladder. I discussed with patient of scheduled assistance to toilet. ?? Ring worm skin rash: 09/17 contact isolation was ordered. Lotrimin was started. Observed. 09/21 remains seen. Continue treatment. 09/22 improving. Observe. 09/25 I started her on Griseofulvin orally. Continue ointment. 09/28 the red color of the lesions are fading and the rings are flatten better. Patient is happy. I suggested the Griseofulvin to continue for 14 days course. 09/29 continue improving. ?? DVT PRx: 09/17 switch heparin to Lovenox 09/18 asymptomatic. 09/25 d/c Lovenox for good improvement of walking distance. ?? Lab review: 09/21 non significant. F/up. ?? Leda-pharyngeal dysphagia: 09/21 ST note: DIET: NDD3 and Thin liquids. SWALLOWING STRATEGIES: Upright 90 degrees, small bites/sips, slow rate, monitor right cheek for pocketing and alternation of solids/liquids. ?? Mobility progress: I have seen patient in the gym and reviewed the PT notes as follow: 09/17 ambulates 120 feet with fww with R hand splint with minimal assistance for safety and balance. gait deiations include dec joseline dec step length, dec control intermittently of R knee, dec base of support. 09/18 t/f with minimal assistance. ambulates 20 ft with RW and min assist for balance. Gait deviations include decreased joseline, step length, increased trunk flexion. Slight path deviation x 3, difficulty navigating walker around cluttered corners. 09/22 ambulates 200 feet with R hand splint walker and conotact guard asssitance. gait deviations include dec joseline dec step length very slight r knee hyperextension but pt is able to control with cues. 09/23 ambulates 200 feet with fww and close supervision for safety. gait deviations include dec joseline dec step length, very slight r knee hyperextension. Ambulates 100 feet with single point cane and cga for safety. gait deviaitons include decc cdence dec step length, slightly dec R foot clearance. 09/25 ambulates 200 feet with fww and close supervision for safety. ambulates 100 feet with single point cane and contact guard assistance for safety. gait deviations include dec joseline dec step length, inc trunk flexion with single point cane needs cues for increasing RLE step length 09/28 ambulates 200 feet with fww and close supervision, no lob or safety issues noted. ambulates 140 feet with single point cane and contact guard assitance for safety, one instasnce of verbal cues for clearing R foot required. gait deviaiton sinclude dec joseline dec step lenght, inc trunk flexion,slightly uneven step lengths ?? Personal care activity progress: I have reviewed OT progress notes as follow: 09/17 Pt demos good progress with R UE neuro re-education and functional transfers. POC to continue addressing R UE function, cognitive skills and balance. 09/29 In addition to transfer to and from mat/wc with SBA, pt completes functional mobilty approximately 150 feet pushing wc with cues for attention to R LE especially as pt fatigues. She require CGA for balance during task. ?? Cognitive linguistic functions: I have reviewed ST notes as follow: 09/21 COMPREHENSION: Supervisory assist for basic comprehension. WFL for basic conversation and increased amount of assist for complex conversation. EXPRESSION:Supervisory assist for verbal expression. WFL for basic conversation with increased amount of assist for complex conversation. Improved speech intelligibility over the past few days. REASONING: Moderately impaired for basic reasoning tasks.Cues required half of the time for reasoning. Decreased reasoning, thought organization, insight, and attention. MEMORY: Moderately impaired for basic memory tasks. She requires cues half of the timefor basic memory. Noted difficulty with delayed recall paragraph recall, and carryover of novel information. 09/28 Pt independently recalled weekend and name of new grandchild. Pt recalled 3/3 items after a 5-10 minute delay. Pt completed a scheduling activity to attend to thought organization, problem solving, attention, and reasoning with 50% accuracy with moderate to maximal assistance. Pt presented with slow processing speed during task. Pt completed problem solving task with 78% accuracy with minimal assistance. Pt required moderate to maximal assistance to attend to constraints of task. Recommendto continue current plan of care. ?? Coordination with consultants/read notes: ?? 09/[address] today. Progress and barriers ajnd discharge plan were discussed.Total time: 30 minutes, 1/2 spent in coordination of care. 09/[address] today. Progress and barriers ajnd discharge plan were discussed. Total time: 30 minutes, 1/2 spent in coordination of care. ?? CODE: Full. YUE REED MD 10:31 PM * Yue Reed MD - 09/28/2017 11:11 PM CDT REHAB PROGRESS NOTE Patient: Maria Long, 57 y.o. CC: No c/o. The rest of ROS is negative. PFSHX: PMH: I have reviewed and there is no change Family: I have reviewed and there is no change Social: I have reviewed and there is no change OBJECTIVE: Vitals: Vitals: 09/28/17 1920 BP: 102/76 Pulse: 80 Resp: 18 Temp: 98 ??F (36.7 ??C) SpO2: 96% CONSTITUTIONAL: CALM. EYES: PERRLA, EOMI ENT/MOUTH/NECK: EXT EAR NORMAL, NARES PATENT, OP CLEAR. CV: RRR. PULM: CTA BILATERAL. GI: SOFT, NON TENDER, NON DISTENDED, BOWEL SOUNDS INTACT. : DIAPERS EXT: NO CLUBBING, CYANOSIS, EDEMA, NO CALF TENDERNESS JAM'S SIGNS NEGATIVE. MSK: TONE, STRENGTH, GAIT SKIN: DRESSINGS, SURGICAL WOUND, EDEMA, LESIONS NEURO: A&OX3, REFLEXES, SENSATION, STRENGTH RIGHT /5 AND LEFT /5 PSYCH: MOOD, AFFECT LABS/IMAGING: I reviewed the lab test results as follow: POC Glucose POC Glucose 09/28/17 1743 86 09/28/17 1217 182(A) 09/28/17 0630 219(A) Results for MARIA LONG ( ) as of 09/21/2017 14:12 Ref. Range 09/21/2017 04:20 Glucose mg/dL Blood Latest Ref Range: 74 - 106 mg/dL 113 (H) Bun mg/dL Blood Latest Ref Range: 7 - 21 mg/dL 15 Creatinine S Latest Ref Range: 0.50 - 1.30 mg/dL 0.70 Sodium mmol/L Blood Latest Ref Range: 136 - 145 mmol/L 138 Potassium mmol/L Blood Latest Ref Range: 3.5 - 5.1 mmol/L 3.8 Chloride Latest Ref Range: 98 - 107 mmol/L 101 CO2 Latest Ref Range: 22 - 31 mmol/L 28 Calcium mg/dL Blood Latest Ref Range: 8.5 - 10.1 mg/dL 9.1 Anion Gap Blood Latest Ref Range: 8 - 16 mmol/L 9 Egfr By MDRD ml/Min/1.73 M2 Blood Latest Ref Range: >60 mL/min/1.73m2 >60 Egfr By MDRD ml/Min/1.73 M2 Blood Afr.Amer Latest Ref Range: >60 mL/min/1.73m2 >60 HCT % Blood Latest Ref Range: 35.9 - 45.5 % 44.3 HGB gm/dL Blood Latest Ref Range: 12.0 - 15.6 gm/dL 15.1 MCH pg Blood Latest Ref Range: 26.7 - 34.0 pg 31.7 MCHC gm/dL Blood Latest Ref Range: 30.8 - 35.9 gm/dL 34.1 MCV fL Blood Latest Ref Range: 80.7 - 98.3 fl 92.9 MPV fL Blood Latest Ref Range: 9.4 - 12.[address] X(10)9/L Blood Latest Ref Range: 153 - 416 x10E9/L 240 RDW-Cv % Blood Latest Ref Range: 12.1 - 14.9 % 11.9 (L) WBC X(10)9/L Blood Latest Ref Range: 4.4 - 10.7 x10E9/L 10.6 Rbc X(10)12/L Blood Latest Ref Range: 3.80 - 5.20 x10E12/L 4.77 CURRENT MEDS: Scheduled/Continuous Medications Scheduled Medication Dose/Rate, Route, Frequency Last Action aspirin EC tablet 81 mg 81 mg, PO, Once a day Given: 09/28 857 atorvastatin (LIPITOR) tablet 40 mg 40 mg, PO, Nightly Given: 09/28 2028 clotrimazole (LOTRIMIN) 1 % cream No Dose/Rate, TP, BID Given: 09/28 2030 glimepiride (AMARYL) tablet 4 mg 4 mg, PO, Daily with breakfast Given: 09/28 857 griseofulvin (JOSELITO-PEG) tablet 250 mg 250 mg, PO, BID PC Given: 09/29 1747 metFORMIN (GLUCOPHAGE) tablet 500 mg 500 mg, PO, BID with meals Given: 09/29 1747 senna (SENOKOT) tablet 8.6 mg 8.6 mg, PO, Nightly Given: 09/28 2028 glucose ??? dextrose 5 % and sodium chloride 0.45 % ??? dextrose ??? glucagon ??? lactulose No Known Allergies MEDICAL DECISION MAKING/PLAN: Patient Active Problem List Diagnosis ??? Essential hypertension ??? Diabetes mellitus without mention of complication, type II or unspecified type, uncontrolled ??? Hemiplegia affecting right dominant side ??? Dysarthria ??? Dyslipidemia with high density lipoprotein below reference range and triglyceride above reference range due to type 2 diabetes mellitus ??? Multiple lacunar infarcts ??? Morbid obesity ?? CVA / right tristan: 09/17 stable. Therapies initiated. 09/18 stable. Continue therapies. 09/21 stable. Continues therapies. 09/25 improving. Continue therapies. 09/28 improving well. Continue therapies. ?? CVA PRX: ASA+Lipitor. ?? HTN: 09/17 within nornal limit without treatment. Observe closely. 09/18 low level of normal range. On no treatment. Observe. 09/21 within nornal limit without treatment. F/up. 09/25 within nornal limit. Observe. ?? Diabetes mellitus follow up: 09/17 BS is significantly hig. I started her on Glimepiride 4 mg daily and d/c Lantus. Continue Metformin. 09/18 BS remains high. I started alogliptin along with others. Continue SSI. 09/21 BS is appropriate. Continue current treatment. 09/22 discussed with [facility] [facility], her BS is now within a good range but we don't think she can afford alogliptin at home. It will be d/aislinn and I will adjust her on metformin and Glimepiride only. 09/23 within nornal limit..Observe. 09/24 BS at lunch was 190+ but in PM 74. Observe closely with decrease metformin from today. 09/25 BS is slightly down. I d/c SSI. Continue Glimepiride and Metformin. 09/28 BS increasing today.F/up closely. ?? Bowel and Bladder functions: 09/17 incontinent of bladder. I discussed with patient of scheduled assistance to toilet. ?? Ring worm skin rash: 09/17 contact isolation was ordered. Lotrimin was started. Observed. 09/21 remains seen. Continue treatment. 09/22 improving. Observe. 09/25 I started her on Griseofulvin orally. Continue ointment. 09/28 the red color of the lesions are fading and the rings are flatten better. Patient is happy. I suggested the Griseofulvin to continue for 14 days course. ?? DVT PRx: 09/17 switch heparin to Lovenox 09/18 asymptomatic. 09/25 d/c Lovenox for good improvement of walking distance. ?? Lab review: 09/21 non significant. F/up. ?? Leda-pharyngeal dysphagia: 09/21 ST note: DIET: NDD3 and Thin liquids. SWALLOWING STRATEGIES: Upright 90 degrees, small bites/sips, slow rate, monitor right cheek for pocketing and alternation of solids/liquids. ?? Mobility progress: I have seen patient in the gym and reviewed the PT notes as follow: 09/17 ambulates 120 feet with fww with R hand splint with minimal assistance for safety and balance. gait deiations include dec joseline dec step length, dec control intermittently of R knee, dec base of support. 09/18 t/f with minimal assistance. ambulates 20 ft with RW and min assist for balance. Gait deviations include decreased joseline, step length, increased trunk flexion. Slight path deviation x 3, difficulty navigating walker around cluttered corners. 09/22 ambulates 200 feet with R hand splint walker and conotact guard asssitance. gait deviations include dec joseline dec step length very slight r knee hyperextension but pt is able to control with cues. 09/23 ambulates 200 feet with fww and close supervision for safety. gait deviations include dec joseline dec step length, very slight r knee hyperextension. Ambulates 100 feet with single point cane and cga for safety. gait deviaitons include decc cdence dec step length, slightly dec R foot clearance. 09/25 ambulates 200 feet with fww and close supervision for safety. ambulates 100 feet with single point cane and contact guard assistance for safety. gait deviations include dec joseline dec step length, inc trunk flexion with single point cane needs cues for increasing RLE step length 09/28 ambulates 200 feet with fww and close supervision, no lob or safety issues noted. ambulates 140 feet with single point cane and contact guard assitance for safety, one instasnce of verbal cues for clearing R foot required. gait deviaiton sinclude dec joseline dec step lenght, inc trunk flexion,slightly uneven step lengths ?? Personal care activity progress: I have reviewed OT progress notes as follow: 09/17 Pt demos good progress with R UE neuro re-education and functional transfers. POC to continue addressing R UE function, cognitive skills and balance ?? Cognitive linguistic functions: I have reviewed ST notes as follow: 09/21 COMPREHENSION: Supervisory assist for basic comprehension. WFL for basic conversation and increased amount of assist for complex conversation. EXPRESSION:Supervisory assist for verbal expression. WFL for basic conversation with increased amount of assist for complex conversation. Improved speech intelligibility over the past few days. REASONING: Moderately impaired for basic reasoning tasks.Cues required half of the time for reasoning. Decreased reasoning, thought organization, insight, and attention. MEMORY: Moderately impaired for basic memory tasks. She requires cues half of the timefor basic memory. Noted difficulty with delayed recall paragraph recall, and carryover of novel information. 09/28 Pt independently recalled weekend and name of new grandchild. Pt recalled 3/3 items after a 5-10 minute delay. Pt completed a scheduling activity to attend to thought organization, problem solving, attention, and reasoning with 50% accuracy with moderate to maximal assistance. Pt presented with slow processing speed during task. Pt completed problem solving task with 78% accuracy with minimal assistance. Pt required moderate to maximal assistance to attend to constraints of task. Recommendto continue current plan of care. ?? Coordination with consultants/read notes: ?? 09/[address] today. Progress and barriers ajnd discharge plan were discussed.Total time: 30 minutes, 1/2 spent in coordination of care. 09/[address] today. Progress and barriers ajnd discharge plan were discussed. Total time: 30 minutes, 1/2 spent in coordination of care. ?? CODE: Full. YUE REED MD 11:11 PM * Gopi Ellis, PhD - 09/28/2017 1:46 PM CDT PSYCHOLOGY PROGRESS NOTE SUBJECTIVE: Ms. Long's perception of rehabilitation progress/specific concerns: pleased with rehabilitationprogress and continued gains in R LE and UE functions; she is distressed with separation from home and family Pain: does not report any pain Mood: distressed and hopeful OBJECTIVE: Behavior and Appearance: alert Orientation: oriented generally, but unable to retrieve the place name Speech and Communication: improving and word finding difficulties Affective Quality: congruent with mood and verbal expression Interactions: receptive to psychological support ASSESSMENT: Cognitive Function: Ms. Long demonstrated improving speech and language and insight into impairments and their implications Ms. Long demonstrated continued impairment in speech and language Adjustment: Ms. Long demonstrated improving perception of rehabilitation gains Ms. Long demonstrated continued distress with impairments and separation feelings Therapy Participation: Good PLAN: Interventions: concerns were discussed supportively continued efforts in rehab were encouraged GOPI ELLIS, PhD 09/28/2017 1:47 PM * Zehra Hirsch MD - 09/25/2017 11:05 PM CDT HOSPITALIST PROGRESS NOTE Patient Name: Maria Long : 1960 Medical Record: [id number] DATE OF SERVICE 09/25/17 ATTENDING Yue Reed MD SUBJECTIVE The patient is being seen for follow-up of <principal problem not specified>. BP, BS , HR, labs, strength. .Chief Complaint walkign better Rash improving strength improving, able to do therapy ok. No chest pain, no SOB, no dizziness, no palpitations, no new neurologic symptoms. No cough, No nausea or vomiting, No abdominal pain. History also obtained from Nurse and staff about how the patient did overnight and during the day strength improving, able to do therapy ok. CURRENT Medications Current Facility-Administered Medications: ??? aspirin EC tablet 81 mg, 81 mg, Oral, Once a day, Yue Reed MD, 81 mg at 09/25/17813 ??? atorvastatin (LIPITOR) tablet 40 mg, 40 mg, Oral, Nightly, Yue Reed MD, 40 mg at ??? clotrimazole (LOTRIMIN) 1 % cream, , Topical, 2 times per day, Yue Reed MD ??? dextrose (GLUTOSE) 40 % oral gel 15 g, 15 g, Oral, PRN, Yue Reed MD ??? dextrose 5 % and sodium chloride 0.45 % infusion, 50 mL/hr, Intravenous, PRN, Yue Reed MD ??? dextrose 50 % solution 25 g, 25 g, Intravenous, PRN, Yue Reed MD ??? glimepiride (AMARYL) tablet 4 mg, 4 mg, Oral, Daily with breakfast, Yue Reed MD, 4 mg at 09/25/17813 ??? glucagon (human recombinant) injection 1 mg, 1 mg, Intramuscular, PRN, Yue Reed MD ??? griseofulvin (JOSELITO-PEG) tablet 250 mg, 250 mg, Oral, BID PC, Yue Reed MD ??? lactulose (CHRONULAC) 10 GM/15ML solution 30 g, 30 g, Oral, Daily PRN, Yue Reed MD, 30 g at 09/23/17 1730 ??? metFORMIN (GLUCOPHAGE) tablet 500 mg, 500 mg, Oral, BID with meals, Yue Reed MD, 500 mg at 09/25/17 1730 ??? senna (SENOKOT) tablet 8.6 mg, 8.6 mg, Oral, Nightly, Yue Reed MD, 8.6 mg at 09/25/172052 DATA Vitals: 09/24/17 0700 09/24/17201409/25/17 0700 09/25/172032 BP: 111/68 120/74 105/68 100/62 Pulse: 81 78 73 69 Resp: Temp: 97.5 ??F (36.4 ??C) 98.8 ??F (37.1 ??C) 98.4 ??F (36.9 ??C) 98.2 ??F (36.8 ??C) TempSrc: Oral Oral Oral Oral SpO2: 98% 95% 94% 93% Weight: Height: POC Glucose POC Glucose 09/25/17 1659 90 09/25/17 1208 113 09/25/17 1208 113 09/25/17 0555 130 Weights (last 3 days) Date/Time Weight 09/23/17 0526 197 lb (89.4 kg) @ANTICOAGSUMMARY@ @FLOWDATE(2706:LAST)@ Intake/Output Summary (Last 24 hours) at 09/26/17 0105 Last data filed at 09/25/17 2000 Gross per 24 hour Intake 1080 ml Output 1 ml Net 1079 ml PHYSICAL EXAM General appearance: awake, alert, cooperative, no distress HEENT: Normocephalic, No icterus, No oral lesions, Oral and nasal mucosa moist Neck: Supple, no lymphadenopathy Eyes: EOMI, Conjunctiva normal, No discharge Cardiovascular: Normal heart rate, Normal rhythm, No murmurs, No rubs, No gallops Respiratory: Normal breath sounds, No respiratory distress, No wheezing, No rhonchi, No rales, No chest tenderness. GI: Bowel sounds normal, Soft, No tenderness, No rebound or guarding, No masses. Abdomen: soft without mass, non-tender, with normal bowel sounds Extremities: no clubbing, cyanosis or edema, no calf tenderness Musculoskeletal:no swelling of joints.no redness Psychologic: Mood ok, no suicidal ideation. Skin: No rash. Warm and Dry, CLOTH DYEING RANGE TENDER:No new deficits LABS CBC with Differential: No results found for: WBC, RBC, HGB, HEMOGLOBIN, HCT, HEMATOCRIT, PLT, MCV, MCH, MCHC, RDW, NEUTPERCENT, MONOPERCENT, LYMPHPERCENT, BASOPERCENT[ BMP: No results found for: NA, SODIUM, K, CL, CO2, BUN, CREATININE, LABCREA, AA, EGFR, GLU, LABGLUC, GLUCOSE, GLUCOSEFL, CALCIUM, CALCIUMUR, ANIONGAP MG/PHOS: No results found for: MG, PHOS CKMB: No components found for: CKMB;2 PT/INR: No results found for: LABPROT, INR BNP: No results found for: BNP Last 3 Troponin: No components found for: TROPONINI;3 U/A: No results found for: COLORU, CLARITYU, GLUCOSEU, BILIRUBINUR, KETONESU, SPECGRAV, BLOODU, PHUR, UROBILINOGEN, NITRITE, LEUKOCYTESUR, MUCUS, RBCUA, WBCUA CMP: No results found for: NA, SODIUM, K, CL, CO2, BUN, CREATININE, LABCREA, GLU, LABGLUC, GLUCOSE, PROT, CALCIUM, ALBUMIN, BILITOT, ALKALINEPHO, ALT, AST, ANIONGAP, AA, EGFR LFT's: No results found for: ALB, PROT Ionized Calcium: No components found for: IONCA ABG: No results found for: PHART, UCM9DRV, PO2ART, XVB4OZO, BEART, [id number] HgBA1c: No results found for: HGBA1C Lipid Panel: No results found for: CHOL, TRIG, HDL TSH: No results found for: TSH Lab Results Component Value Date GLUCOSE 113 (H) 09/21/2017 BUN 15 09/21/2017 CREATININE 0.70 09/21/2017 NA 138 09/21/2017 K 3.8 09/21/2017 CL 101 09/21/2017 CO2 28 09/21/2017 CALCIUM 9.1 09/21/2017 @RESU CBC: Results from last 7 days Lab Units 09/21/17 0420 WBC X(10)9/L BLOOD x10E9/L 10.6 HGB GM/DL BLOOD gm/dL 15.[address] X(10)9/L BLOOD x10E9/L 240 MCV FL BLOOD fl 92.9 BMP: Results from last 7 days Lab Units 09/21/17 0420 SODIUM MMOL/L BLOOD mmol/L 138 POTASSIUM MMOL/L BLOOD mmol/L 3.8 CHLORIDE mmol/L 101 CO2 mmol/L 28 BUN MG/DL BLOOD mg/dL 15 CREATININE mg/dL 0.70 GLUCOSE MG/DL BLOOD mg/dL 113* CALCIUM MG/DL BLOOD mg/dL 9.1 I reviewed the EKG tracing/Xray Results from last 7 days Lab Units 09/21/17 0420 SODIUM MMOL/L BLOOD mmol/L 138 POTASSIUM MMOL/L BLOOD mmol/L 3.8 CHLORIDE mmol/L 101 CO2 mmol/L 28 BUN MG/DL BLOOD mg/dL 15 CREATININE mg/dL 0.70 GLUCOSE MG/DL BLOOD mg/dL 113* CALCIUM MG/DL BLOOD mg/dL 9.1 ANION GAP BLOOD mmol/L 9 ASSESSMENT AND PLAN Active Problems: Essential hypertension Diabetes mellitus without mention of complication, type II or unspecified type, uncontrolled Hemiplegia affecting right dominant side Dysarthria Dyslipidemia with high density lipoprotein below reference range and triglyceride above reference range due to type 2 diabetes mellitus Multiple lacunar infarcts Morbid obesity Left Delgado Radiata/ Internal Capsule: - Lacunar infarction - Continue ASA, Statin - Target Normotension - PT/OT DMUncontrolled Increase lantus HT N allow pwrissive htn AZEEM UE TINEA corpioris rig worm Topical antifungals Rash improving Leukocytosis F/U METABOLIC ACIDOSIS FEN. Nutrition consult for evaluation of nutritional status and the best diet. And for BMI evaluation and education regarding maintaining a healthy BMI Bladder management Bowel management . Titrate bowel medications for constipation/diarrhea. Skin. Nursing to address skin care throughout stay. Sleep. Monitor sleep-wake cycle. High Fall risk- Fall precautions DVT Prophylaxis Code Status full D/w son in the room D/W patient , and attending physician about test results and treatment plan .No family in the room.Patient requiring monitoring of BP and HR while doing 3 hour intensive exercises to avoid fluctuations and hypotension . Aswell as monitoring of nutritional and fluid status , by weights, leg edema .Notified staff and patient to notify me of any change inconditions or new problems Electronically signed by: ZEHRA HIRSCH MD, 09/26/2017 1:05 AM * Yue Reed MD - 09/25/2017 6:02 PM CDT REHAB PROGRESS NOTE Patient: Maria Long, 57 y.o. CC: No c/o. The rest of ROS is negative. PFSHX: PMH: I have reviewed and there is no change Family: I have reviewed and there is no change Social: I have reviewed and there is no change OBJECTIVE: Vitals: Vitals: 09/25/17 0700 BP: 105/68 Pulse: 73 Resp: 18 Temp: 98.4 ??F (36.9 ??C) SpO2: 94% CONSTITUTIONAL: CALM. EYES: PERRLA, EOMI ENT/MOUTH/NECK: EXT EAR NORMAL, NARES PATENT, OP CLEAR. CV: RRR. PULM: CTA BILATERAL. GI: SOFT, NON TENDER, NON DISTENDED, BOWEL SOUNDS INTACT. : DIAPERS EXT: NO CLUBBING, CYANOSIS, EDEMA, NO CALF TENDERNESS JAM'S SIGNS NEGATIVE. MSK: TONE, STRENGTH, GAIT SKIN: DRESSINGS, SURGICAL WOUND, EDEMA, LESIONS NEURO: A&OX3, REFLEXES, SENSATION, STRENGTH RIGHT /5 AND LEFT /5 PSYCH: MOOD, AFFECT LABS/IMAGING: I reviewed the lab test results as follow: POC Glucose POC Glucose 09/25/17 1659 90 09/25/17 1208 113 09/25/17 1208 113 09/25/17 0555 130 09/24/17 2122 144(A) Results for MARIA LONG ( ) as of 09/21/2017 14:12 Ref. Range 09/21/2017 04:20 Glucose mg/dL Blood Latest Ref Range: 74 - 106 mg/dL 113 (H) Bun mg/dL Blood Latest Ref Range: 7 - 21 mg/dL 15 Creatinine S Latest Ref Range: 0.50 - 1.30 mg/dL 0.70 Sodium mmol/L Blood Latest Ref Range: 136 - 145 mmol/L 138 Potassium mmol/L Blood Latest Ref Range: 3.5 - 5.1 mmol/L 3.8 Chloride Latest Ref Range: 98 - 107 mmol/L 101 CO2 Latest Ref Range: 22 - 31 mmol/L 28 Calcium mg/dL Blood Latest Ref Range: 8.5 - 10.1 mg/dL 9.1 Anion Gap Blood Latest Ref Range: 8 - 16 mmol/L 9 Egfr By MDRD ml/Min/1.73 M2 Blood Latest Ref Range: >60 mL/min/1.73m2 >60 Egfr By MDRD ml/Min/1.73 M2 Blood Afr.Amer Latest Ref Range: >60 mL/min/1.73m2 >60 HCT % Blood Latest Ref Range: 35.9 - 45.5 % 44.3 HGB gm/dL Blood Latest Ref Range: 12.0 - 15.6 gm/dL 15.1 MCH pg Blood Latest Ref Range: 26.7 - 34.0 pg 31.7 MCHC gm/dL Blood Latest Ref Range: 30.8 - 35.9 gm/dL 34.1 MCV fL Blood Latest Ref Range: 80.7 - 98.3 fl 92.9 MPV fL Blood Latest Ref Range: 9.4 - 12.[address] X(10)9/L Blood Latest Ref Range: 153 - 416 x10E9/L 240 RDW-Cv % Blood Latest Ref Range: 12.1 - 14.9 % 11.9 (L) WBC X(10)9/L Blood Latest Ref Range: 4.4 - 10.7 x10E9/L 10.6 Rbc X(10)12/L Blood Latest Ref Range: 3.80 - 5.20 x10E12/L 4.77 CURRENT MEDS: Scheduled/Continuous Medications Scheduled Medication Dose/Rate, Route, Frequency Last Action aspirin EC tablet 81 mg 81 mg, PO, Once a day Given: 09/25 813 atorvastatin (LIPITOR) tablet 40 mg 40 mg, PO, Nightly Given: 09/24 2022 clotrimazole (LOTRIMIN) 1 % cream No Dose/Rate, TP, BID Given: 09/25 816 glimepiride (AMARYL) tablet 4 mg 4 mg, PO, Daily with breakfast Given: 09/25 813 griseofulvin (JOSELITO-PEG) tablet 250 mg 250 mg, PO, BID PC Ordered metFORMIN (GLUCOPHAGE) tablet 500 mg 500 mg, PO, BID with meals Given: 09/25 1730 senna (SENOKOT) tablet 8.6 mg 8.6 mg, PO, Nightly Ordered glucose ??? dextrose 5 % and sodium chloride 0.45 % ??? dextrose ??? glucagon ??? lactulose No Known Allergies MEDICAL DECISION MAKING/PLAN: Patient Active Problem List Diagnosis ??? Essential hypertension ??? Diabetes mellitus without mention of complication, type II or unspecified type, uncontrolled ??? Hemiplegia affecting right dominant side ??? Dysarthria ??? Dyslipidemia with high density lipoprotein below reference range and triglyceride above reference range due to type 2 diabetes mellitus ??? Multiple lacunar infarcts ??? Morbid obesity ?? CVA / right tristan: 09/17 stable. Therapies initiated. 09/18 stable. Continue therapies. 09/21 stable. Continues therapies. 09/25 improving. Continue therapies. ?? CVA PRX: ASA+Lipitor. ?? HTN: 09/17 within nornal limit without treatment. Observe closely. 09/18 low level of normal range. On no treatment. Observe. 09/21 within nornal limit without treatment. F/up. 09/25 within nornal limit. Observe. ?? Diabetes mellitus follow up: 09/17 BS is significantly hig. I started her on Glimepiride 4 mg daily and d/c Lantus. Continue Metformin. 09/18 BS remains high. I started alogliptin along with others. Continue SSI. 09/21 BS is appropriate. Continue current treatment. 09/22 discussed with [facility] [facility], her BS is now within a good range but we don't think she can afford alogliptin at home. It will be d/aislinn and I will adjust her on metformin and Glimepiride only. 09/23 within nornal limit..Observe. 09/24 BS at lunch was 190+ but in PM 74. Observe closely with decrease metformin from today. 09/25 BS is slightly down. I d/c SSI. Continue Glimepiride and Metformin. ?? Bowel and Bladder functions: 09/17 incontinent of bladder. I discussed with patient of scheduled assistance to toilet. ?? Ring worm skin rash: 09/17 contact isolation was ordered. Lotrimin was started. Observed. 09/21 remains seen. Continue treatment. 09/22 improving. Observe. 09/25 I started her on Griseofulvin orally. Continue ointment. ?? DVT PRx: 09/17 switch heparin to Lovenox 09/18 asymptomatic. 09/25 d/c Lovenox for good improvement of walking distance. ?? Lab review: 09/21 non significant. F/up. ?? Leda-pharyngeal dysphagia: 09/21 ST note: DIET: NDD3 and Thin liquids. SWALLOWING STRATEGIES: Upright 90 degrees, small bites/sips, slow rate, monitor right cheek for pocketing and alternation of solids/liquids. ?? Mobility progress: I have seen patient in the gym and reviewed the PT notes as follow: 09/17 ambulates 120 feet with fww with R hand splint with minimal assistance for safety and balance. gait deiations include dec joseline dec step length, dec control intermittently of R knee, dec base of support. 09/18 t/f with minimal assistance. ambulates 20 ft with RW and min assist for balance. Gait deviations include decreased joseline, step length, increased trunk flexion. Slight path deviation x 3, difficulty navigating walker around cluttered corners. 09/22 ambulates 200 feet with R hand splint walker and conotact guard asssitance. gait deviations include dec joseline dec step length very slight r knee hyperextension but pt is able to control with cues. 09/23 ambulates 200 feet with fww and close supervision for safety. gait deviations include dec joseline dec step length, very slight r knee hyperextension. Ambulates 100 feet with single point cane and cga for safety. gait deviaitons include decc cdence dec step length, slightly dec R foot clearance. 09/25 ambulates 200 feet with fww and close supervision for safety. ambulates 100 feet with single point cane and contact guard assistance for safety. gait deviations include dec joseline dec step length, inc trunk flexion with single point cane needs cues for increasing RLE step length ?? Personal care activity progress: I have reviewed OT progress notes as follow: 09/17 Pt demos good progress with R UE neuro re-education and functional transfers. POC to continue addressing R UE function, cognitive skills and balance ?? Cognitive linguistic functions: I have reviewed ST notes as follow: 09/21 COMPREHENSION: Supervisory assist for basic comprehension. WFL for basic conversation and increased amount of assist for complex conversation. EXPRESSION:Supervisory assist for verbal expression. WFL for basic conversation with increased amount of assist for complex conversation. Improved speech intelligibility over the past few days. REASONING: Moderately impaired for basic reasoning tasks.Cues required half of the time for reasoning. Decreased reasoning, thought organization, insight, and attention. MEMORY: Moderately impaired for basic memory tasks. She requires cues half of the timefor basic memory. Noted difficulty with delayed recall paragraph recall, and carryover of novel information. ?? Coordination with consultants/read notes: ?? 09/[address] today. Progress and barriers ajnd discharge plan were discussed.Total time: 30 minutes, 1/2 spent in coordination of care. CODE: Full. YUE REED MD 6:02 PM * Yue Reed MD - 09/24/2017 5:58 PM CDT REHAB PROGRESS NOTE Patient: Maria Long, 57 y.o. CC: No c/o. The rest of ROS is negative. PFSHX: PMH: I have reviewed and there is no change Family: I have reviewed and there is no change Social: I have reviewed and there is no change OBJECTIVE: Vitals: Vitals: 09/24/17 0700 BP: 111/68 Pulse: 81 Resp: 19 Temp: 97.5 ??F (36.4 ??C) SpO2: 98% CONSTITUTIONAL: CALM. EYES: PERRLA, EOMI ENT/MOUTH/NECK: EXT EAR NORMAL, NARES PATENT, OP CLEAR. CV: RRR. PULM: CTA BILATERAL. GI: SOFT, NON TENDER, NON DISTENDED, BOWEL SOUNDS INTACT. : DIAPERS EXT: NO CLUBBING, CYANOSIS, EDEMA, NO CALF TENDERNESS JAM'S SIGNS NEGATIVE. MSK: TONE, STRENGTH, GAIT SKIN: DRESSINGS, SURGICAL WOUND, EDEMA, LESIONS NEURO: A&OX3, REFLEXES, SENSATION, STRENGTH RIGHT /5 AND LEFT /5 PSYCH: MOOD, AFFECT LABS/IMAGING: I reviewed the lab test results as follow: POC Glucose POC Glucose 09/24/17 1709 74(A) 09/24/17 1143 194(A) 09/24/17 0629 137(A) 09/23/17 2128 98 Results for MARIA LONG ( ) as of 09/21/2017 14:12 Ref. Range 09/21/2017 04:20 Glucose mg/dL Blood Latest Ref Range: 74 - 106 mg/dL 113 (H) Bun mg/dL Blood Latest Ref Range: 7 - 21 mg/dL 15 Creatinine S Latest Ref Range: 0.50 - 1.30 mg/dL 0.70 Sodium mmol/L Blood Latest Ref Range: 136 - 145 mmol/L 138 Potassium mmol/L Blood Latest Ref Range: 3.5 - 5.1 mmol/L 3.8 Chloride Latest Ref Range: 98 - 107 mmol/L 101 CO2 Latest Ref Range: 22 - 31 mmol/L 28 Calcium mg/dL Blood Latest Ref Range: 8.5 - 10.1 mg/dL 9.1 Anion Gap Blood Latest Ref Range: 8 - 16 mmol/L 9 Egfr By MDRD ml/Min/1.73 M2 Blood Latest Ref Range: >60 mL/min/1.73m2 >60 Egfr By MDRD ml/Min/1.73 M2 Blood Afr.Amer Latest Ref Range: >60 mL/min/1.73m2 >60 HCT % Blood Latest Ref Range: 35.9 - 45.5 % 44.3 HGB gm/dL Blood Latest Ref Range: 12.0 - 15.6 gm/dL 15.1 MCH pg Blood Latest Ref Range: 26.7 - 34.0 pg 31.7 MCHC gm/dL Blood Latest Ref Range: 30.8 - 35.9 gm/dL 34.1 MCV fL Blood Latest Ref Range: 80.7 - 98.3 fl 92.9 MPV fL Blood Latest Ref Range: 9.4 - 12.[address] X(10)9/L Blood Latest Ref Range: 153 - 416 x10E9/L 240 RDW-Cv % Blood Latest Ref Range: 12.1 - 14.9 % 11.9 (L) WBC X(10)9/L Blood Latest Ref Range: 4.4 - 10.7 x10E9/L 10.6 Rbc X(10)12/L Blood Latest Ref Range: 3.80 - 5.20 x10E12/L 4.77 CURRENT MEDS: Scheduled/Continuous Medications Scheduled Medication Dose/Rate, Route, Frequency Last Action aspirin EC tablet 81 mg 81 mg, PO, Once a day Given: 09/24 899 atorvastatin (LIPITOR) tablet 40 mg 40 mg, PO, Nightly Given: 09/23 2024 clotrimazole (LOTRIMIN) 1 % cream No Dose/Rate, TP, BID Given: 09/24 902 enoxaparin (LOVENOX) syringe 40 mg 40 mg, SC, Q24H PRERNA Given: 09/24 599 glimepiride (AMARYL) tablet 4 mg 4 mg, PO, Daily with breakfast Given: 09/24 899 insulin lispro (HumaLOG) injection 0-12 Units 2 Units, SC, AC & HS Given - Witness Not Required: 09/24 122 metFORMIN (GLUCOPHAGE) tablet 750 mg 750 mg, PO, BID with meals Given: 09/24 1725 glucose ??? dextrose 5 % and sodium chloride 0.45 % ??? dextrose ??? glucagon ??? lactulose No Known Allergies MEDICAL DECISION MAKING/PLAN: Patient Active Problem List Diagnosis ??? Essential hypertension ??? Diabetes mellitus without mention of complication, type II or unspecified type, uncontrolled ??? Hemiplegia affecting right dominant side ??? Dysarthria ??? Dyslipidemia with high density lipoprotein below reference range and triglyceride above reference range due to type 2 diabetes mellitus ??? Multiple lacunar infarcts ??? Morbid obesity ?? CVA / right tristan: 09/17 stable. Therapies initiated. 09/18 stable. Continue therapies. 09/21 stable. Continues therapies. ? CVA PRX: ASA+Lipitor. ? HTN: 09/17 within nornal limit without treatment. Observe closely. 09/18 low level of normal range. On no treatment. Observe. 09/21 within nornal limit [id number] treatment. F/up. ?? Diabetes mellitus follow up: 09/17 BS is significantly hig. I started her on Glimepiride 4 mg daily and d/c Lantus. Continue Metformin. 09/18 BS remains high. I started alogliptin along with others. Continue SSI. 09/21 BS is appropriate. Continue current treatment. 09/22 discussed with [employer] [facility], her BS is now within a good range but we don't think she can afford alogliptin at home. It will be d/aislinn and I will adjust her on metformin and Glimepiride only. 09/23 within nornal limit..Observe. 09/24 BS at lunch was 190+ but in PM 74. Observe closely with decrease metformin from today. ?? Bowel and Bladder functions: 09/17 incontinent of bladder. I discussed with patient of scheduled assistance to toilet. ?? Ring worm skin rash: 09/17 contact isolation was ordered. Lotrimin was started. Observed. 09/21 remains seen. Continue treatment. 09/22 improving. Observe. ?? DVT PRx: 09/17 switch heparin to Lovenox 09/18 asymptomatic. ?? Lab review: 09/21 non significant. F/up. ?? Leda-pharyngeal dysphagia: 09/21 ST note: DIET: NDD3 and Thin liquids. SWALLOWING STRATEGIES: Upright 90 degrees, small bites/sips, slow rate, monitor right cheek for pocketing and alternation of solids/liquids. ?? Mobility progress: I have seen patient in the gym and reviewed the PT notes as follow: 09/17 ambulates 120 feet with fww with R hand splint with minimal assistance for safety and balance. gait deiations include dec joseline dec step length, dec control intermittently of R knee, dec base of support. 09/18 t/f with minimal assistance. ambulates 20 ft with RW and min assist for balance. Gait deviations include decreased joseline, step length, increased trunk flexion. Slight path deviation x 3, difficulty navigating walker around cluttered corners. 09/22 ambulates 200 feet with R hand splint walker and conotact guard asssitance. gait deviations include dec joseline dec step length very slight r knee hyperextension but pt is able to control with cues. 09/23 ambulates 200 feet with fww and close supervision for safety. gait deviations include dec joseline dec step length, very slight r knee hyperextension. Ambulates 100 feet with single point cane and cga for safety. gait deviaitons include decc cdence dec step length, slightly dec R foot clearance. ?? Personal care activity progress: I have reviewed OT progress notes as follow: 09/17 Pt demos good progress with R UE neuro re-education and functional transfers. POC to continue addressing R UE function, cognitive skills and balance ?? Cognitive linguistic functions: I have reviewed ST notes as follow: 09/21 COMPREHENSION: Supervisory assist for basic comprehension. WFL for basic conversation and increased amount of assist for complex conversation. EXPRESSION:Supervisory assist for verbal expression. WFL for basic conversation with increased amount of assist for complex conversation. Improved speech intelligibility over the past few days. REASONING: Moderately impaired for basic reasoning tasks.Cues required half of the time for reasoning. Decreased reasoning, thought organization, insight, and attention. MEMORY: Moderately impaired for basic memory tasks. She requires cues half of the timefor basic memory. Noted difficulty with delayed recall paragraph recall, and carryover of novel information. ?? Coordination with consultants/read notes: ?? 09/[address] today. Progress and barriers ajnd discharge plan were discussed.Total time: 30 minutes, 1/2 spent in coordination of care. CODE: Full. YUE REED MD 5:58 PM * Shanell Oh, GIGI - 09/24/2017 9:14 AM CDT Medical Nutrition Therapy Progress Note Significant Information: po intake 75-100% Relevant Medications: Scheduled/Continuous Medications Scheduled Medication Dose/Rate, Route, Frequency Last Action aspirin EC tablet 81 mg 81 mg, PO, Once a day Given: 09/24 899 atorvastatin (LIPITOR) tablet 40 mg 40 mg, PO, Nightly Given: 09/23 2024 clotrimazole (LOTRIMIN) 1 % cream No Dose/Rate, TP, BID Given: 09/24 902 enoxaparin (LOVENOX) syringe 40 mg 40 mg, SC, Q24H PRERNA Given: 09/24 599 glimepiride (AMARYL) tablet 4 mg 4 mg, PO, Daily with breakfast Given: 09/24 899 insulin lispro (HumaLOG) injection 0-12 Units 2 Units, SC, AC & HS Given: 09/22 2113 metFORMIN (GLUCOPHAGE) tablet 750 mg 750 mg, PO, BID with meals Given: 09/24 0859 Relevant Labs: Most recent labs reviewed. POC Glucose POC Glucose 09/24/17 0629 137(A) 09/23/17 2128 98 09/23/17 1721 111 09/23/17 1224 85 Weight: Admit Weight: 196 lb 6 oz (89.1 kg) Latest Weight: 197 lb (89.4 kg) (09/23/17 0526) Weight Comment: weight gain Diet Order: Dietary Orders Start Ordered 09/21/17 0808 Adult Diet Therapeutic Diet: Low Fat, Carb Controlled; Carbohydrate Controlled: 5 Carb/75gm/meal (2000 calories); Diet Texture: Regular Bite-Cut; Liquid Consistency: All Liquids - No Restrictions Diet effective now Question Answer Comment Therapeutic Diet: Low Fat Therapeutic Diet: Carb Controlled Carbohydrate Controlled: 5 Carb/75gm/meal (2000 calories) Diet Texture: Regular Bite-Cut Liquid Consistency All Liquids - No Restrictions Place order in third democrat system. Done 09/21/17 0807 Nutrition Related Concerns: None Skin: Intact Energy Needs: Total Energy Estimated Needs: 25 calories/kg (89) = 2225 Total Protein Estimated Needs: 1.5 gm protien /kg = 135 Total Fluid Estimated Needs: 1 mL fluid/kcalorie Nutrition Support: No Goals: PO intake > or = to 50-100 % most meals & snacks Care Plans: Plan of Care - Nutrition Care Plans (Notes for yesterday and today) 1 Author: Shanell Oh RD Service: (none) Author Type: Registered Dietitian Filed: 09/24/2017 9:13 AM Date of Service: 09/24/2017 9:13 AM Status: Signed Director Of Maintenance: Shanell Oh RD (Registered Dietitian) Problem: Unintended Weight Loss Related to: hospitalizaiton As Evidenced By: pt stating she lost 29# in the past month since she had been hospitalized Goal: Clinical Nutrition Goal Outcome: Progressing 09/16/17 1612 09/24/17 0912 Nutrition Goals Primary Goal Adequate Meals and Snack/Oral Nutrition Supplement Intake -- Primary Goal Progress -- Ongoing Primary Indicator/Monitor PO intake 75-100% -- Intervention: Medical Nutrition Therapy Interventions 09/16/17 1612 Nutrition Interventions Meals and Snacks General/healthful diet Coordination of Nutrition Care Continue to Monitor Additional Comments/Recommendations: Diet is advancing and po is improving; pt with weight gain. Reviewed new alternative menu selections SHANELL OH RD 09/24/17 9:20 AM * Zehra Hirsch MD - 09/23/2017 11:30 PM CDT HOSPITALIST PROGRESS NOTE Patient Name: Maria Long : 1960 Medical Record: [id number] DATE OF SERVICE 09/23/2017 ATTENDING Yue Reed MD SUBJECTIVE The patient is being seen for follow-up of <principal problem not specified>. BP, BS , HR, labs, strength. .Chief Complaint walkign better Rash improving strength improving, able to do therapy ok. No chest pain, no SOB, no dizziness, no palpitations, no new neurologic symptoms. No cough, No nausea or vomiting, No abdominal pain. History also obtained from Nurse and staff about how the patient did overnight and during the day strength improving, able to do therapy ok. CURRENT Medications Current Facility-Administered Medications: ??? aspirin EC tablet 81 mg, 81 mg, Oral, Once a day, Yue Reed MD, 81 mg at 09/23/17 0801 ??? atorvastatin (LIPITOR) tablet 40 mg, 40 mg, Oral, Nightly, Yue Reed MD, 40 mg at ??? clotrimazole (LOTRIMIN) 1 % cream, , Topical, 2 times per day, Yue Reed MD ??? dextrose (GLUTOSE) 40 % oral gel 15 g, 15 g, Oral, PRN, Yue Reed MD ??? dextrose 5 % and sodium chloride 0.45 % infusion, 50 mL/hr, Intravenous, PRN, Yue Reed MD ??? dextrose 50 % solution 25 g, 25 g, Intravenous, PRN, Yue Reed MD ??? enoxaparin (LOVENOX) syringe 40 mg, 40 mg, Subcutaneous, Q24H PRERNA, Yue Reed MD, 40 mg at 09/23/17 0504 ??? glimepiride (AMARYL) tablet 4 mg, 4 mg, Oral, Daily with breakfast, Yue Reed MD, 4 mg at 09/23/17 0800 ??? glucagon (human recombinant) injection 1 mg, 1 mg, Intramuscular, PRN, Yue Reed MD ? ? insulin lispro (HumaLOG) injection 0-12 Units, 0-12 Units, Subcutaneous, AC & HS, 2 Units at 09/22/17 2114 AND POCT glucose, , , AC & HS, Yue Reed MD ??? lactulose (CHRONULAC) 10 GM/15ML solution 30 g, 30 g, Oral, Daily PRN, Yue Reed MD, 30 g at 09/23/17 1730 ??? metFORMIN (GLUCOPHAGE) tablet 750 mg, 750 mg, Oral, BID with meals, Yue Reed MD, 750 mg at 09/23/17 1731 DATA Vitals: 09/22/17 2035 09/23/17 0526 09/23/17 0730 09/23/17 2203 BP: 119/65 124/68 119/77 Pulse: 70 70 78 Resp: Temp: 98.1 ??F (36.7 ??C) 98.1 ??F (36.7 ??C) 98.5 ??F (36.9 ??C) TempSrc: Oral Oral SpO2: 93% 97% 92% Weight: 197 lb (89.4 kg) Height: POC Glucose POC Glucose 09/23/17 2128 98 09/23/17 1721 111 09/23/17 1224 85 09/23/17 0626 118 Weights (last 3 days) Date/Time Weight 09/23/17 0526 197 lb (89.4 kg) @ANTICOAGSUMMARY@ @FLOWDATE(2706:LAST)@ Intake/Output Summary (Last 24 hours) at 09/23/17 2330 Last data filed at 09/23/17 1813 Gross per 24 hour Intake 840 ml Output 0 ml Net 840 ml PHYSICAL EXAM General appearance: awake, alert, cooperative, no distress HEENT: Normocephalic, No icterus, No oral lesions, Oral and nasal mucosa moist Neck: Supple, no lymphadenopathy Eyes: EOMI, Conjunctiva normal, No discharge Cardiovascular: Normal heart rate, Normal rhythm, No murmurs, No rubs, No gallops Respiratory: Normal breath sounds, No respiratory distress, No wheezing, No rhonchi, No rales, No chest tenderness. GI: Bowel sounds normal, Soft, No tenderness, No rebound or guarding, No masses. Abdomen: soft without mass, non-tender, with normal bowel sounds Extremities: no clubbing, cyanosis or edema, no calf tenderness Musculoskeletal:no swelling of joints.no redness Psychologic: Mood ok, no suicidal ideation. Skin: No rash. Warm and Dry, CLOTH DYEING RANGE TENDER:No new deficits LABS CBC with Differential: Lab Results Component Value Date WBC 10.6 09/21/2017 HGB 15.1 09/21/2017 HCT 44.3 09/21/2017 PLT 240 09/21/2017 MCV 92.9 09/21/2017 MCH 31.7 09/21/2017 MCHC 34.1 09/21/2017 RDW 11.9 (L) 09/21/2017 [ BMP: Lab Results Component Value Date NA 138 09/21/2017 K 3.8 09/21/2017 CL 101 09/21/2017 CO2 28 09/21/2017 BUN 15 09/21/2017 CREATININE 0.70 09/21/2017 GLUCOSE 113 (H) 09/21/2017 CALCIUM 9.1 09/21/2017 ANIONGAP 9 09/21/2017 MG/PHOS: No results found for: MG, PHOS CKMB: No components found for: CKMB;2 PT/INR: No results found for: LABPROT, INR BNP: No results found for: BNP Last 3 Troponin: No components found for: TROPONINI;3 U/A: No results found for: COLORU, CLARITYU, GLUCOSEU, BILIRUBINUR, KETONESU, SPECGRAV, BLOODU, PHUR, UROBILINOGEN, NITRITE, LEUKOCYTESUR, MUCUS, RBCUA, WBCUA CMP: Lab Results Component Value Date NA 138 09/21/2017 K 3.8 09/21/2017 CL 101 09/21/2017 CO2 28 09/21/2017 BUN 15 09/21/2017 CREATININE 0.70 09/21/2017 GLUCOSE 113 (H) 09/21/2017 CALCIUM 9.1 09/21/2017 ANIONGAP 9 09/21/2017 LFT's: No results found for: ALB, PROT Ionized Calcium: No components found for: IONCA ABG: No results found for: PHART, XFA1SLE, PO2ART, RZY3JHR, BEART, M2WCMCAT HgBA1c: No results found for: HGBA1C Lipid Panel: No results found for: CHOL, TRIG, HDL TSH: No results found for: TSH Lab Results Component Value Date GLUCOSE 113 (H) 09/21/2017 BUN 15 09/21/2017 CREATININE 0.70 09/21/2017 NA 138 09/21/2017 K 3.8 09/21/2017 CL 101 09/21/2017 CO2 28 09/21/2017 CALCIUM 9.1 09/21/2017 @RESU CBC: Results from last 7 days Lab Units 09/21/17 0420 WBC X(10)9/L BLOOD x10E9/L 10.6 HGB GM/DL BLOOD gm/dL 15.[address] X(10)9/L BLOOD x10E9/L 240 MCV FL BLOOD fl 92.9 BMP: Results from last 7 days Lab Units 09/21/17 0420 SODIUM MMOL/L BLOOD mmol/L 138 POTASSIUM MMOL/L BLOOD mmol/L 3.8 CHLORIDE mmol/L 101 CO2 mmol/L 28 BUN MG/DL BLOOD mg/dL 15 CREATININE mg/dL 0.70 GLUCOSE MG/DL BLOOD mg/dL 113* CALCIUM MG/DL BLOOD mg/dL 9.1 I reviewed the EKG tracing/Xray Results from last 7 days Lab Units 09/21/17 0420 SODIUM MMOL/L BLOOD mmol/L 138 POTASSIUM MMOL/L BLOOD mmol/L 3.8 CHLORIDE mmol/L 101 CO2 mmol/L 28 BUN MG/DL BLOOD mg/dL 15 CREATININE mg/dL 0.70 GLUCOSE MG/DL BLOOD mg/dL 113* CALCIUM MG/DL BLOOD mg/dL 9.1 ANION GAP BLOOD mmol/L 9 ASSESSMENT AND PLAN Active Problems: Essential hypertension Diabetes mellitus without mention of complication, type II or unspecified type, uncontrolled Hemiplegia affecting right dominant side Dysarthria Dyslipidemia with high density lipoprotein below reference range and triglyceride above reference range due to type 2 diabetes mellitus Multiple lacunar infarcts Morbid obesity Left Delgado Radiata/ Internal Capsule: - Lacunar infarction - Continue ASA, Statin - Target Normotension - PT/OT DMUncontrolled Increase lantus HT N allow pwrissive htn AZEEM UE TINEA corpioris rig worm Topical antifungals Rash improving Leukocytosis F/U METABOLIC ACIDOSIS FEN. Nutrition consult for evaluation of nutritional status and the best diet. And for BMI evaluation and education regarding maintaining a healthy BMI Bladder management Bowel management . Titrate bowel medications for constipation/diarrhea. Skin. Nursing to address skin care throughout stay. Sleep. Monitor sleep-wake cycle. High Fall risk- Fall precautions DVT Prophylaxis Code Status full D/w son in the room D/W patient , and attending physician about test results and treatment plan .No family in the room.Patient requiring monitoring of BP and HR while doing 3 hour intensive exercises to avoid fluctuations and hypotension . Aswell as monitoring of nutritional and fluid status , by weights, leg edema .Notified staff and patient to notify me of any change inconditions or new problems Electronically signed by: ZEHRA HIRSCH MD, 09/23/2017 11:30 PM * Yue Reed MD - 09/23/2017 5:56 PM CDT REHAB PROGRESS NOTE Patient: Maria Long, 57 y.o. CC: No c/o. The rest of ROS is negative. PFSHX: PMH: I have reviewed and there is no change Family: I have reviewed and there is no change Social: I have reviewed and there is no change OBJECTIVE: Vitals: Vitals: 09/24/17 0700 BP: 111/68 Pulse: 81 Resp: 19 Temp: 97.5 ??F (36.4 ??C) SpO2: 98% CONSTITUTIONAL: CALM. EYES: PERRLA, EOMI ENT/MOUTH/NECK: EXT EAR NORMAL, NARES PATENT, OP CLEAR. CV: RRR. PULM: CTA BILATERAL. GI: SOFT, NON TENDER, NON DISTENDED, BOWEL SOUNDS INTACT. : DIAPERS EXT: NO CLUBBING, CYANOSIS, EDEMA, NO CALF TENDERNESS JAM'S SIGNS NEGATIVE. MSK: TONE, STRENGTH, GAIT SKIN: DRESSINGS, SURGICAL WOUND, EDEMA, LESIONS NEURO: A&OX3, REFLEXES, SENSATION, STRENGTH RIGHT /5 AND LEFT /5 PSYCH: MOOD, AFFECT LABS/IMAGING: I reviewed the lab test results as follow: POC Glucose POC Glucose 09/24/17 1709 74(A) 09/24/17 1143 194(A) 09/24/17 0629 137(A) 09/23/17 2128 98 Results for MARIA LONG ( ) as of 09/21/2017 14:12 Ref. Range 09/21/2017 04:20 Glucose mg/dL Blood Latest Ref Range: 74 - 106 mg/dL 113 (H) Bun mg/dL Blood Latest Ref Range: 7 - 21 mg/dL 15 Creatinine S Latest Ref Range: 0.50 - 1.30 mg/dL 0.70 Sodium mmol/L Blood Latest Ref Range: 136 - 145 mmol/L 138 Potassium mmol/L Blood Latest Ref Range: 3.5 - 5.1 mmol/L 3.8 Chloride Latest Ref Range: 98 - 107 mmol/L 101 CO2 Latest Ref Range: 22 - 31 mmol/L 28 Calcium mg/dL Blood Latest Ref Range: 8.5 - 10.1 mg/dL 9.1 Anion Gap Blood Latest Ref Range: 8 - 16 mmol/L 9 Egfr By MDRD ml/Min/1.73 M2 Blood Latest Ref Range: >60 mL/min/1.73m2 >60 Egfr By MDRD ml/Min/1.73 M2 Blood Afr.Amer Latest Ref Range: >60 mL/min/1.73m2 >60 HCT % Blood Latest Ref Range: 35.9 - 45.5 % 44.3 HGB gm/dL Blood Latest Ref Range: 12.0 - 15.6 gm/dL 15.1 MCH pg Blood Latest Ref Range: 26.7 - 34.0 pg 31.7 MCHC gm/dL Blood Latest Ref Range: 30.8 - 35.9 gm/dL 34.1 MCV fL Blood Latest Ref Range: 80.7 - 98.3 fl 92.9 MPV fL Blood Latest Ref Range: 9.4 - 12.[address] X(10)9/L Blood Latest Ref Range: 153 - 416 x10E9/L 240 RDW-Cv % Blood Latest Ref Range: 12.1 - 14.9 % 11.9 (L) WBC X(10)9/L Blood Latest Ref Range: 4.4 - 10.7 x10E9/L 10.6 Rbc X(10)12/L Blood Latest Ref Range: 3.80 - 5.20 x10E12/L 4.77 CURRENT MEDS: Scheduled/Continuous Medications Scheduled Medication Dose/Rate, Route, Frequency Last Action aspirin EC tablet 81 mg 81 mg, PO, Once a day Given: 09/24 899 atorvastatin (LIPITOR) tablet 40 mg 40 mg, PO, Nightly Given: 09/23 2024 clotrimazole (LOTRIMIN) 1 % cream No Dose/Rate, TP, BID Given: 09/24 902 enoxaparin (LOVENOX) syringe 40 mg 40 mg, SC, Q24H PRERNA Given: 09/24 599 glimepiride (AMARYL) tablet 4 mg 4 mg, PO, Daily with breakfast Given: 09/24 899 insulin lispro (HumaLOG) injection 0-12 Units 2 Units, SC, AC & HS Given - Witness Not Required: 09/24 1229 metFORMIN (GLUCOPHAGE) tablet 750 mg 750 mg, PO, BID with meals Given: 09/24 172 glucose ??? dextrose 5 % and sodium chloride 0.45 % ??? dextrose ??? glucagon ??? lactulose No Known Allergies MEDICAL DECISION MAKING/PLAN: Patient Active Problem List Diagnosis ??? Essential hypertension ??? Diabetes mellitus without mention of complication, type II or unspecified type, uncontrolled ??? Hemiplegia affecting right dominant side ??? Dysarthria ??? Dyslipidemia with high density lipoprotein below reference range and triglyceride above reference range due to type 2 diabetes mellitus ??? Multiple lacunar infarcts ??? Morbid obesity ?? CVA / right tristan: 09/17 stable. Therapies initiated. 09/18 stable. Continue therapies. 09/21 stable. Continues therapies. ? CVA PRX: ASA+Lipitor. ? HTN: 09/17 within nornal limit without treatment. Observe closely. 09/18 low level of normal range. On no treatment. Observe. 09/21 within nornal limit [id number] treatment. F/up. ?? Diabetes mellitus follow up: 09/17 BS is significantly hig. I started her on Glimepiride 4 mg daily and d/c Lantus. Continue Metformin. 09/18 BS remains high. I started alogliptin along with others. Continue SSI. 09/21 BS is appropriate. Continue current treatment. 09/22 discussed with [employer] [facility], her BS is now within a good range but we don't think she can afford alogliptin at home. It will be d/aislinn and I will adjust her on metformin and Glimepiride only. 09/23 within nornal limit..Observe. ?? Bowel and Bladder functions: 09/17 incontinent of bladder. I discussed with patient of scheduled assistance to toilet. ?? Ring worm skin rash: 09/17 contact isolation was ordered. Lotrimin was started. Observed. 09/21 remains seen. Continue treatment. 09/22 improving. Observe. ?? DVT PRx: 09/17 switch heparin to Lovenox 09/18 asymptomatic. ?? Lab review: 09/21 non significant. F/up. ?? Leda-pharyngeal dysphagia: 09/21 ST note: DIET: NDD3 and Thin liquids. SWALLOWING STRATEGIES: Upright 90 degrees, small bites/sips, slow rate, monitor right cheek for pocketing and alternation of solids/liquids. ?? Mobility progress: I have seen patient in the gym and reviewed the PT notes as follow: 09/17 ambulates 120 feet with fww with R hand splint with minimal assistance for safety and balance. gait deiations include dec joseline dec step length, dec control intermittently of R knee, dec base of support. 09/18 t/f with minimal assistance. ambulates 20 ft with RW and min assist for balance. Gait deviations include decreased joseline, step length, increased trunk flexion. Slight path deviation x 3, difficulty navigating walker around cluttered corners. 09/22 ambulates 200 feet with R hand splint walker and conotact guard asssitance. gait deviations include dec joseline dec step length very slight r knee hyperextension but pt is able to control with cues. 09/23 ambulates 200 feet with fww and close supervision for safety. gait deviations include dec joseline dec step length, very slight r knee hyperextension. Ambulates 100 feet with single point cane and cga for safety. gait deviaitons include decc cdence dec step length, slightly dec R foot clearance. ?? Personal care activity progress: I have reviewed OT progress notes as follow: 09/17 Pt demos good progress with R UE neuro re-education and functional transfers. POC to continue addressing R UE function, cognitive skills and balance ?? Cognitive linguistic functions: I have reviewed ST notes as follow: 09/21 COMPREHENSION: Supervisory assist for basic comprehension. WFL for basic conversation and increased amount of assist for complex conversation. EXPRESSION:Supervisory assist for verbal expression. WFL for basic conversation with increased amount of assist for complex conversation. Improved speech intelligibility over the past few days. REASONING: Moderately impaired for basic reasoning tasks.Cues required half of the time for reasoning. Decreased reasoning, thought organization, insight, and attention. MEMORY: Moderately impaired for basic memory tasks. She requires cues half of the timefor basic memory. Noted difficulty with delayed recall paragraph recall, and carryover of novel information. ?? Coordination with consultants/read notes: ?? 09/[address] today. Progress and barriers ajnd discharge plan were discussed.Total time: 30 minutes, 1/2 spent in coordination of care. CODE: Full. YUE REED MD 5:56 PM * Yue Reed MD - 09/22/2017 5:17 PM CDT REHAB PROGRESS NOTE Patient: Maria Long, 57 y.o. CC: No c/o. The rest of ROS is negative. PFSHX: PMH: I have reviewed and there is no change Family: I have reviewed and there is no change Social: I have reviewed and there is no change OBJECTIVE: Vitals: Vitals: 09/22/17 0743 BP: 114/66 Pulse: 69 Resp: 16 Temp: 97.9 ??F (36.6 ??C) SpO2: 94% CONSTITUTIONAL: CALM. EYES: PERRLA, EOMI ENT/MOUTH/NECK: EXT EAR NORMAL, NARES PATENT, OP CLEAR. CV: RRR. PULM: CTA BILATERAL. GI: SOFT, NON TENDER, NON DISTENDED, BOWEL SOUNDS INTACT. : DIAPERS EXT: NO CLUBBING, CYANOSIS, EDEMA, NO CALF TENDERNESS JAM'S SIGNS NEGATIVE. MSK: TONE, STRENGTH, GAIT SKIN: DRESSINGS, SURGICAL WOUND, EDEMA, LESIONS NEURO: A&OX3, REFLEXES, SENSATION, STRENGTH RIGHT /5 AND LEFT /5 PSYCH: MOOD, AFFECT LABS/IMAGING: I reviewed the lab test results as follow: POC Glucose POC Glucose 09/22/17 1640 113 09/22/17 1219 131(A)[C] 09/22/17 0604 169(A) 09/21/17 2200 109 Results for MARIA LONG ( ) as of 09/21/2017 14:12 Ref. Range 09/21/2017 04:20 Glucose mg/dL Blood Latest Ref Range: 74 - 106 mg/dL 113 (H) Bun mg/dL Blood Latest Ref Range: 7 - 21 mg/dL 15 Creatinine S Latest Ref Range: 0.50 - 1.30 mg/dL 0.70 Sodium mmol/L Blood Latest Ref Range: 136 - 145 mmol/L 138 Potassium mmol/L Blood Latest Ref Range: 3.5 - 5.1 mmol/L 3.8 Chloride Latest Ref Range: 98 - 107 mmol/L 101 CO2 Latest Ref Range: 22 - 31 mmol/L 28 Calcium mg/dL Blood Latest Ref Range: 8.5 - 10.1 mg/dL 9.1 Anion Gap Blood Latest Ref Range: 8 - 16 mmol/L 9 Egfr By MDRD ml/Min/1.73 M2 Blood Latest Ref Range: >60 mL/min/1.73m2 >60 Egfr By MDRD ml/Min/1.73 M2 Blood Afr.Amer Latest Ref Range: >60 mL/min/1.73m2 >60 HCT % Blood Latest Ref Range: 35.9 - 45.5 % 44.3 HGB gm/dL Blood Latest Ref Range: 12.0 - 15.6 gm/dL 15.1 MCH pg Blood Latest Ref Range: 26.7 - 34.0 pg 31.7 MCHC gm/dL Blood Latest Ref Range: 30.8 - 35.9 gm/dL 34.1 MCV fL Blood Latest Ref Range: 80.7 - 98.3 fl 92.9 MPV fL Blood Latest Ref Range: 9.4 - 12.[address] X(10)9/L Blood Latest Ref Range: 153 - 416 x10E9/L 240 RDW-Cv % Blood Latest Ref Range: 12.1 - 14.9 % 11.9 (L) WBC X(10)9/L Blood Latest Ref Range: 4.4 - 10.7 x10E9/L 10.6 Rbc X(10)12/L Blood Latest Ref Range: 3.80 - 5.20 x10E12/L 4.77 CURRENT MEDS: Scheduled/Continuous Medications Scheduled Medication Dose/Rate, Route, Frequency Last Action Alogliptin Benzoate (NESINA) 6.25 mg 6.25 mg, PO, Once a day Given: 09/22 812 aspirin EC tablet 81 mg 81 mg, PO, Once a day Given: 09/22 812 atorvastatin (LIPITOR) tablet 40 mg 40 mg, PO, Nightly Given: 09/21 2057 clotrimazole (LOTRIMIN) 1 % cream No Dose/Rate, TP, BID Given: 09/23 815 enoxaparin (LOVENOX) syringe 40 mg 40 mg, SC, Q24H PRERNA Given: 09/22 521 glimepiride (AMARYL) tablet 4 mg 4 mg, PO, Daily with breakfast Given: 09/22 812 insulin lispro (HumaLOG) injection 0-12 Units 2 Units, SC, AC & HS Given - Witness Not Required: 09/22 812 metFORMIN (GLUCOPHAGE) tablet 500 mg 500 mg, PO, BID with meals Given: 09/22 812 glucose ??? dextrose 5 % and sodium chloride 0.45 % ??? dextrose ??? glucagon No Known Allergies MEDICAL DECISION MAKING/PLAN: Patient Active Problem List Diagnosis ??? Essential hypertension ??? Diabetes mellitus without mention of complication, type II or unspecified type, uncontrolled ??? Hemiplegia affecting right dominant side ??? Dysarthria ??? Dyslipidemia with high density lipoprotein below reference range and triglyceride above reference range due to type 2 diabetes mellitus ??? Multiple lacunar infarcts ??? Morbid obesity ?? CVA / right tristan: 09/17 stable. Therapies initiated. 09/18 stable. Continue therapies. 09/21 stable. Continues therapies. ? CVA PRX: ASA+Lipitor. ? HTN: 09/17 within nornal limit without treatment. Observe closely. 09/18 low level of normal range. On no treatment. Observe. 09/21 within nornal limit [id number] treatment. F/up. ?? Diabetes mellitus follow up: 09/17 BS is significantly hig. I started her on Glimepiride 4 mg daily and d/c Lantus. Continue Metformin. 09/18 BS remains high. I started alogliptin along with others. Continue SSI. 09/21 BS is appropriate. Continue current treatment. 09/22 discussed with [employer] [facility], her BS is now within a good range but we don't think she can afford alogliptin at home. It will be d/aislinn and I will adjust her on metformin and Glimepiride only. ?? Bowel and Bladder functions: 09/17 incontinent of bladder. I discussed with patient of scheduled assistance to toilet. ?? Ring worm skin rash: 09/17 contact isolation was ordered. Lotrimin was started. Observed. 09/21 remains seen. Continue treatment. 09/22 improving. Observe. ?? DVT PRx: 09/17 switch heparin to Lovenox 09/18 asymptomatic. ?? Lab review: 09/21 non significant. F/up. ?? Leda-pharyngeal dysphagia: 09/21 ST note: DIET: NDD3 and Thin liquids. SWALLOWING STRATEGIES: Upright 90 degrees, small bites/sips, slow rate, monitor right cheek for pocketing and alternation of solids/liquids. ?? Mobility progress: I have seen patient in the gym and reviewed the PT notes as follow: 09/17 ambulates 120 feet with fww with R hand splint with minimal assistance for safety and balance. gait deiations include dec joseline dec step length, dec control intermittently of R knee, dec base of support. 09/18 t/f with minimal assistance. ambulates 20 ft with RW and min assist for balance. Gait deviations include decreased joseline, step length, increased trunk flexion. Slight path deviation x 3, difficulty navigating walker around cluttered corners. 09/22 ambulates 200 feet with R hand splint walker and conotact guard asssitance. gait deviations include dec joseline dec step length very slight r knee hyperextension but pt is able to control with cues. ?? Personal care activity progress: I have reviewed OT progress notes as follow: 09/17 Pt demos good progress with R UE neuro re-education and functional transfers. POC to continue addressing R UE function, cognitive skills and balance ?? Cognitive linguistic functions: I have reviewed ST notes as follow: 09/21 COMPREHENSION: Supervisory assist for basic comprehension. WFL for basic conversation and increased amount of assist for complex conversation. EXPRESSION:Supervisory assist for verbal expression. WFL for basic conversation with increased amount of assist for complex conversation. Improved speech intelligibility over the past few days. REASONING: Moderately impaired for basic reasoning tasks.Cues required half of the time for reasoning. Decreased reasoning, thought organization, insight, and attention. MEMORY: Moderately impaired for basic memory tasks. She requires cues half of the timefor basic memory. Noted difficulty with delayed recall paragraph recall, and carryover of novel information. ?? Coordination with consultants/read notes: ?? 09/[address] today. Progress and barriers ajnd discharge plan were discussed.Total time: 30 minutes, 1/2 spent in coordination of care. CODE: Full. YUE REED MD 5:17 PM * Zehra Hirsch MD - 09/21/2017 11:57 PM CDT HOSPITALIST PROGRESS NOTE Patient Name: Maria Long : 1960 Medical Record: [id number] DATE OF SERVICE 09/21/2017 ATTENDING Yue Reed MD SUBJECTIVE The patient is being seen for follow-up of <principal problem not specified>. BP, BS , HR, labs, strength. .Chief Complaint strength improving, able to do therapy ok. No chest pain, no SOB, no dizziness, no palpitations, no new neurologic symptoms. No cough, No nausea or vomiting, No abdominal pain. History also obtained from Nurse and staff about how the patient did overnight and during the day strength improving, able to do therapy ok. CURRENT Medications Current Facility-Administered Medications: ??? Alogliptin Benzoate (NESINA) 6.25 mg, 6.25 mg, Oral, Once a day, Yue Reed MD, 6.25 mg at 09/21/17839 ??? aspirin EC tablet 81 mg, 81 mg, Oral, Once a day, Yue Reed MD, 81 mg at 09/21/17839 ??? atorvastatin (LIPITOR) tablet 40 mg, 40 mg, Oral, Nightly, Yue Reed MD, 40 mg at ??? clotrimazole (LOTRIMIN) 1 % cream, , Topical, 2 times per day, Yue Reed MD ??? dextrose (GLUTOSE) 40 % oral gel 15 g, 15 g, Oral, PRN, Yue Reed MD ??? dextrose 5 % and sodium chloride 0.45 % infusion, 50 mL/hr, Intravenous, PRN, Yue Reed MD ??? dextrose 50 % solution 25 g, 25 g, Intravenous, PRN, Yue Reed MD ??? enoxaparin (LOVENOX) syringe 40 mg, 40 mg, Subcutaneous, Q24H PRERNA, Yue Reed MD, 40 mg at 09/21/17 0526 ??? glimepiride (AMARYL) tablet 4 mg, 4 mg, Oral, Daily with breakfast, Yue Reed MD, 4 mg at 09/21/17 0750 ??? glucagon (human recombinant) injection 1 mg, 1 mg, Intramuscular, PRN, Yue Reed MD ? ? insulin lispro (HumaLOG) injection 0-12 Units, 0-12 Units, Subcutaneous, AC & HS, 2 Units at 09/20/17 0814 AND POCT glucose, , , AC & HS, Yue Reed MD ??? metFORMIN (GLUCOPHAGE) tablet 500 mg, 500 mg, Oral, BID with meals, Yue Reed MD, 500 mg at 09/21/17 1731 DATA Vitals: 09/20/17 0808 09/20/17 2018 09/21/17 0822 09/21/17 1900 BP: 123/73 140/86 108/72 120/77 Pulse: 93 86 88 85 Resp: Temp: 97 ??F (36.1 ??C) 98 ??F (36.7 ??C) 97.2 ??F (36.2 ??C) 97.3 ??F (36.3 ??C) TempSrc: Oral Oral Oral Oral SpO2: 97% 93% 95% 93% Weight: Height: POC Glucose POC Glucose 09/21/17 2200 109 09/21/17 1200 115 09/21/17 0621 140(A) 09/21/17 0621 140(A) Weights (last 3 days) None @ANTICOAGSUMMARY@ @FLOWDATE(2706:LAST)@ Intake/Output Summary (Last 24 hours) at 09/21/17 2357 Last data filed at 09/21/17 1837 Gross per 24 hour Intake 960 ml Output 0 ml Net 960 ml PHYSICAL EXAM General appearance: awake, alert, cooperative, no distress HEENT: Normocephalic, No icterus, No oral lesions, Oral and nasal mucosa moist Neck: Supple, no lymphadenopathy Eyes: EOMI, Conjunctiva normal, No discharge Cardiovascular: Normal heart rate, Normal rhythm, No murmurs, No rubs, No gallops Respiratory: Normal breath sounds, No respiratory distress, No wheezing, No rhonchi, No rales, No chest tenderness. GI: Bowel sounds normal, Soft, No tenderness, No rebound or guarding, No masses. Abdomen: soft without mass, non-tender, with normal bowel sounds Extremities: no clubbing, cyanosis or edema, no calf tenderness Musculoskeletal:no swelling of joints.no redness Psychologic: Mood ok, no suicidal ideation. Skin: No rash. Warm and Dry, CLOTH DYEING RANGE TENDER:No new deficits LABS CBC with Differential: Lab Results Component Value Date WBC 10.6 09/21/2017 HGB 15.1 09/21/2017 HCT 44.3 09/21/2017 PLT 240 09/21/2017 MCV 92.9 09/21/2017 MCH 31.7 09/21/2017 MCHC 34.1 09/21/2017 RDW 11.9 (L) 09/21/2017 [ BMP: Lab Results Component Value Date NA 138 09/21/2017 K 3.8 09/21/2017 CL 101 09/21/2017 CO2 28 09/21/2017 BUN 15 09/21/2017 CREATININE 0.70 09/21/2017 GLUCOSE 113 (H) 09/21/2017 CALCIUM 9.1 09/21/2017 ANIONGAP 9 09/21/2017 MG/PHOS: No results found for: MG, PHOS CKMB: No components found for: CKMB;2 PT/INR: No results found for: LABPROT, INR BNP: No results found for: BNP Last 3 Troponin: No components found for: TROPONINI;3 U/A: No results found for: COLORU, CLARITYU, GLUCOSEU, BILIRUBINUR, KETONESU, SPECGRAV, BLOODU, PHUR, UROBILINOGEN, NITRITE, LEUKOCYTESUR, MUCUS, RBCUA, WBCUA CMP: Lab Results Component Value Date NA 138 09/21/2017 K 3.8 09/21/2017 CL 101 09/21/2017 CO2 28 09/21/2017 BUN 15 09/21/2017 CREATININE 0.70 09/21/2017 GLUCOSE 113 (H) 09/21/2017 CALCIUM 9.1 09/21/2017 ANIONGAP 9 09/21/2017 LFT's: No results found for: ALB, PROT Ionized Calcium: No components found for: IONCA ABG: No results found for: PHART, [id number], PO2ART, [id number], BEART, [id number] HgBA1c: No results found for: HGBA1C Lipid Panel: No results found for: CHOL, TRIG, HDL TSH: No results found for: TSH Lab Results Component Value Date GLUCOSE 113 (H) 09/21/2017 BUN 15 09/21/2017 CREATININE 0.70 09/21/2017 NA 138 09/21/2017 K 3.8 09/21/2017 CL 101 09/21/2017 CO2 28 09/21/2017 CALCIUM 9.1 09/21/2017 @RESU CBC: Results from last 7 days Lab Units 09/21/17 0420 WBC X(10)9/L BLOOD x10E9/L 10.6 HGB GM/DL BLOOD gm/dL 15.[address] X(10)9/L BLOOD x10E9/L 240 MCV FL BLOOD fl 92.9 BMP: Results from last 7 days Lab Units 09/21/17 0420 SODIUM MMOL/L BLOOD mmol/L 138 POTASSIUM MMOL/L BLOOD mmol/L 3.8 CHLORIDE mmol/L 101 CO2 mmol/L 28 BUN MG/DL BLOOD mg/dL 15 CREATININE mg/dL 0.70 GLUCOSE MG/DL BLOOD mg/dL 113* CALCIUM MG/DL BLOOD mg/dL 9.1 I reviewed the EKG tracing/Xray Results from last 7 days Lab Units 09/21/17 0420 SODIUM MMOL/L BLOOD mmol/L 138 POTASSIUM MMOL/L BLOOD mmol/L 3.8 CHLORIDE mmol/L 101 CO2 mmol/L 28 BUN MG/DL BLOOD mg/dL 15 CREATININE mg/dL 0.70 GLUCOSE MG/DL BLOOD mg/dL 113* CALCIUM MG/DL BLOOD mg/dL 9.1 ANION GAP BLOOD mmol/L 9 ASSESSMENT AND PLAN Active Problems: Essential hypertension Diabetes mellitus without mention of complication, type II or unspecified type, uncontrolled Hemiplegia affecting right dominant side Dysarthria Dyslipidemia with high density lipoprotein below reference range and triglyceride above reference range due to type 2 diabetes mellitus Multiple lacunar infarcts Morbid obesity Left Delgado Radiata/ Internal Capsule: - Lacunar infarction - Continue ASA, Statin - Target Normotension - PT/OT DMUncontrolled Increase lantus HT N allow pwrissive htn AZEEM UE TINEA corpioris rig worm Topical antifungals Rash improving Leukocytosis F/U METABOLIC ACIDOSIS FEN. Nutrition consult for evaluation of nutritional status and the best diet. And for BMI evaluation and education regarding maintaining a healthy BMI Bladder management Bowel management . Titrate bowel medications for constipation/diarrhea. Skin. Nursing to address skin care throughout stay. Sleep. Monitor sleep-wake cycle. High Fall risk- Fall precautions DVT Prophylaxis Code Status full D/W patient , and attending physician about test results and treatment plan .No family in the room.Patient requiring monitoring of BP and HR while doing 3 hour intensive exercises to avoid fluctuations and hypotension . Aswell as monitoring of nutritional and fluid status , by weights, leg edema .Notified staff and patient to notify me of any change inconditions or new problems Electronically signed by: ZEHRA HIRSCH MD, 09/21/2017 11:57 PM * Gopi Ellis, PhD - 09/21/2017 3:12 PM CDT PSYCHOLOGY PROGRESS NOTE SUBJECTIVE: Ms. Long's perception of rehabilitation progress/specific concerns: pleased with rehabilitationprogress and noted continued gains in R UE and LE function Pain: does not report any pain Mood: good apart from distress related to isolation precautions OBJECTIVE: Behavior and Appearance: alert and pleasant Orientation: oriented to person, place, time and circumstance Speech and Communication: dysarthric and dysfluent Affective Quality: bright and calm Interactions: pleasant ASSESSMENT: Cognitive Function: Ms. Long demonstrated continued impairment in attention/concentration and new learning/recent memory Adjustment: Ms. Long demonstrated improving hope and perception of rehabilitation gains Therapy Participation: Good PLAN: Interventions: patient gains were reviewed continued efforts in rehab were encouraged discussed with physician discussed with rehabilitation team GOPI ELLIS, PhD 09/21/2017 3:18 PM * Yue Reed MD - 09/21/2017 2:13 PM CDT REHAB PROGRESS NOTE Patient: Maria Long, 57 y.o. CC: No c/o. The rest of ROS is negative. PFSHX: PMH: I have reviewed and there is no change Family: I have reviewed and there is no change Social: I have reviewed and there is no change OBJECTIVE: Vitals: Vitals: 09/21/17 0822 BP: 108/72 Pulse: 88 Resp: 20 Temp: 97.2 ??F (36.2 ??C) SpO2: 95% CONSTITUTIONAL: CALM. EYES: PERRLA, EOMI ENT/MOUTH/NECK: EXT EAR NORMAL, NARES PATENT, OP CLEAR. CV: RRR. PULM: CTA BILATERAL. GI: SOFT, NON TENDER, NON DISTENDED, BOWEL SOUNDS INTACT. : DIAPERS EXT: NO CLUBBING, CYANOSIS, EDEMA, NO CALF TENDERNESS JAM'S SIGNS NEGATIVE. MSK: TONE, STRENGTH, GAIT SKIN: DRESSINGS, SURGICAL WOUND, EDEMA, LESIONS NEURO: A&OX3, REFLEXES, SENSATION, STRENGTH RIGHT /5 AND LEFT /5 PSYCH: MOOD, AFFECT LABS/IMAGING: I reviewed the lab test results as follow: POC Glucose POC Glucose 09/21/17 1200 115 09/21/17 0621 140(A) 09/21/17 0621 140(A) 09/20/17 2201 149(A) 09/20/17 2201 149(A) Results for MARIA LONG ( ) as of 09/21/2017 14:12 Ref. Range 09/21/2017 04:20 Glucose mg/dL Blood Latest Ref Range: 74 - 106 mg/dL 113 (H) Bun mg/dL Blood Latest Ref Range: 7 - 21 mg/dL 15 Creatinine S Latest Ref Range: 0.50 - 1.30 mg/dL 0.70 Sodium mmol/L Blood Latest Ref Range: 136 - 145 mmol/L 138 Potassium mmol/L Blood Latest Ref Range: 3.5 - 5.1 mmol/L 3.8 Chloride Latest Ref Range: 98 - 107 mmol/L 101 CO2 Latest Ref Range: 22 - 31 mmol/L 28 Calcium mg/dL Blood Latest Ref Range: 8.5 - 10.1 mg/dL 9.1 Anion Gap Blood Latest Ref Range: 8 - 16 mmol/L 9 Egfr By MDRD ml/Min/1.73 M2 Blood Latest Ref Range: >60 mL/min/1.73m2 >60 Egfr By MDRD ml/Min/1.73 M2 Blood Afr.Amer Latest Ref Range: >60 mL/min/1.73m2 >60 HCT % Blood Latest Ref Range: 35.9 - 45.5 % 44.3 HGB gm/dL Blood Latest Ref Range: 12.0 - 15.6 gm/dL 15.1 MCH pg Blood Latest Ref Range: 26.7 - 34.0 pg 31.7 MCHC gm/dL Blood Latest Ref Range: 30.8 - 35.9 gm/dL 34.1 MCV fL Blood Latest Ref Range: 80.7 - 98.3 fl 92.9 MPV fL Blood Latest Ref Range: 9.4 - 12.[address] X(10)9/L Blood Latest Ref Range: 153 - 416 x10E9/L 240 RDW-Cv % Blood Latest Ref Range: 12.1 - 14.9 % 11.9 (L) WBC X(10)9/L Blood Latest Ref Range: 4.4 - 10.7 x10E9/L 10.6 Rbc X(10)12/L Blood Latest Ref Range: 3.80 - 5.20 x10E12/L 4.77 CURRENT MEDS: Scheduled/Continuous Medications Scheduled Medication Dose/Rate, Route, Frequency Last Action Alogliptin Benzoate (NESINA) 6.25 mg 6.25 mg, PO, Once a day Given: 09/22 839 aspirin EC tablet 81 mg 81 mg, PO, Once a day Given: 09/22 839 atorvastatin (LIPITOR) tablet 40 mg 40 mg, PO, Nightly Given: 09/20 2044 clotrimazole (LOTRIMIN) 1 % cream No Dose/Rate, TP, BID Given: 09/22 839 enoxaparin (LOVENOX) syringe 40 mg 40 mg, SC, Q24H PRERNA Given: 09/21 525 glimepiride (AMARYL) tablet 4 mg 4 mg, PO, Daily with breakfast Given: 09/21 749 insulin lispro (HumaLOG) injection 0-12 Units 2 Units, SC, AC & HS Given - Witness Not Required: 09/20 08 metFORMIN (GLUCOPHAGE) tablet 500 mg 500 mg, PO, BID with meals Given: 09/21 075 glucose ??? dextrose 5 % and sodium chloride 0.45 % ??? dextrose ??? glucagon No Known Allergies MEDICAL DECISION MAKING/PLAN: Patient Active Problem List Diagnosis ??? Essential hypertension ??? Diabetes mellitus without mention of complication, type II or unspecified type, uncontrolled ??? Hemiplegia affecting right dominant side ??? Dysarthria ??? Dyslipidemia with high density lipoprotein below reference range and triglyceride above reference range due to type 2 diabetes mellitus ??? Multiple lacunar infarcts ??? Morbid obesity ?? CVA / right tristan: 09/17 stable. Therapies initiated. 09/18 stable. Continue therapies. 09/21 stable. Continues therapies. ? CVA PRX: ASA+Lipitor. ? HTN: 09/17 within nornal limit without treatment. Observe closely. 09/18 low level of normal range. On no treatment. Observe. 09/21 within nornal limit [id number] treatment. F/up. ?? Diabetes mellitus follow up: 09/17 BS is significantly hig. I started her on Glimepiride 4 mg daily and d/c Lantus. Continue Metformin. 09/18 BS remains high. I started alogliptin along with others. Continue SSI. 09/21 BS is appropriate. Continue current treatment. ?? Bowel and Bladder functions: 09/17 incontinent of bladder. I discussed with patient of scheduled assistance to toilet. ?? Ring worm skin rash: 09/17 contact isolation was ordered. Lotrimin was started. Observed. 09/21 remains seen. Continue treatment. ?? DVT PRx: 09/17 switch heparin to Lovenox 09/18 asymptomatic. ?? Lab review: 09/21 non significant. F/up. ?? Leda-pharyngeal dysphagia: 09/21 ST note: DIET: NDD3 and Thin liquids. SWALLOWING STRATEGIES: Upright 90 degrees, small bites/sips, slow rate, monitor right cheek for pocketing and alternation of solids/liquids. ?? Mobility progress: I have seen patient in the gym and reviewed the PT notes as follow: 09/17 ambulates 120 feet with fww with R hand splint with minimal assistance for safety and balance. gait deiations include dec joseline dec step length, dec control intermittently of R knee, dec base of support. 09/18 t/f with minimal assistance. ambulates 20 ft with RW and min assist for balance. Gait deviations include decreased joseline, step length, increased trunk flexion. Slight path deviation x 3, difficulty navigating walker around cluttered corners. ?? Personal care activity progress: I have reviewed OT progress notes as follow: 09/17 Pt demos good progress with R UE neuro re-education and functional transfers. POC to continue addressing R UE function, cognitive skills and balance ?? Cognitive linguistic functions: I have reviewed ST notes as follow: 09/21 COMPREHENSION: Supervisory assist for basic comprehension. WFL for basic conversation and increased amount of assist for complex conversation. EXPRESSION:Supervisory assist for verbal expression. WFL for basic conversation with increased amount of assist for complex conversation. Improved speech intelligibility over the past few days. REASONING: Moderately impaired for basic reasoning tasks.Cues required half of the time for reasoning. Decreased reasoning, thought organization, insight, and attention. MEMORY: Moderately impaired for basic memory tasks. She requires cues half of the timefor basic memory. Noted difficulty with delayed recall paragraph recall, and carryover of novel information. ?? Coordination with consultants/read notes: ?? 09/[address] today[address] Progress and barriers ajnd discharge plan were discussed.Total time: 30 minutes, 1/2 spent in coordination of care. CODE: Full. YUE REED MD 2:13 PM * Yue Reed MD - 09/18/2017 6:25 PM CDT REHAB PROGRESS NOTE Patient: Maria Long, 57 y.o. CC: I wish I could go home soon . The rest of ROS is negative. PFSHX: PMH: I have reviewed and there is no change Family: I have reviewed and there is no change Social: I have reviewed and there is no change OBJECTIVE: Vitals: Vitals: 09/18/17 0700 BP: 107/63 Pulse: 61 Resp: 18 Temp: 98.2 ??F (36.8 ??C) SpO2: 99% CONSTITUTIONAL: CALM. EYES: PERRLA, EOMI ENT/MOUTH/NECK: EXT EAR NORMAL, NARES PATENT, OP CLEAR. CV: RRR. PULM: CTA BILATERAL. GI: SOFT, NON TENDER, NON DISTENDED, BOWEL SOUNDS INTACT. : DIAPERS EXT: NO CLUBBING, CYANOSIS, EDEMA, NO CALF TENDERNESS JAM'S SIGNS NEGATIVE. MSK: TONE, STRENGTH, GAIT SKIN: DRESSINGS, SURGICAL WOUND, EDEMA, LESIONS NEURO: A&OX3, REFLEXES, SENSATION, STRENGTH RIGHT /5 AND LEFT /5 PSYCH: MOOD, AFFECT LABS/IMAGING: I reviewed the lab test results as follow: POC Glucose POC Glucose 09/18/17 1718 145(A) 09/18/17 1200 230(A) 09/18/17 0536 241(A) 09/17/17 2219 220(A) Results for MARIA LONG ( ) as of 09/18/2017 18:27 Ref. Range 09/18/2017 04:00 Glucose mg/dL Blood Latest Ref Range: 74 - 106 mg/dL 219 (H) Bun mg/dL Blood Latest Ref Range: 7 - 21 mg/dL 19 Creatinine S Latest Ref Range: 0.50 - 1.30 mg/dL 0.62 Sodium mmol/L Blood Latest Ref Range: 136 - 145 mmol/L 136 Potassium mmol/L Blood Latest Ref Range: 3.5 - 5.1 mmol/L 4.3 Chloride Latest Ref Range: 98 - 107 mmol/L 105 CO2 Latest Ref Range: 22 - 31 mmol/L 21 (L) Calcium mg/dL Blood Latest Ref Range: 8.5 - 10.1 mg/dL 8.7 Anion Gap Blood Latest Ref Range: 8 - 16 mmol/L 10 Egfr By MDRD ml/Min/1.73 M2 Blood Latest Ref Range: >60 mL/min/1.73m2 >60 Egfr By MDRD ml/Min/1.73 M2 Blood Afr.Amer Latest Ref Range: >60 mL/min/1.73m2 >60 HCT % Blood Latest Ref Range: 35.9 - 45.5 % 45.1 HGB gm/dL Blood Latest Ref Range: 12.0 - 15.6 gm/dL 14.9 MCH pg Blood Latest Ref Range: 26.7 - 34.0 pg 31.3 MCHC gm/dL Blood Latest Ref Range: 30.8 - 35.9 gm/dL 33.0 MCV fL Blood Latest Ref Range: 80.7 - 98.3 fl 94.7 MPV fL Blood Latest Ref Range: 9.4 - 12.[address] X(10)9/L Blood Latest Ref Range: 153 - 416 x10E9/L 218 RDW-Cv % Blood Latest Ref Range: 12.1 - 14.9 % 11.5 (L) WBC X(10)9/L Blood Latest Ref Range: 4.4 - 10.7 x10E9/L 11.1 (H) Rbc X(10)12/L Blood Latest Ref Range: 3.80 - 5.20 x10E12/L 4.76 CURRENT MEDS: Scheduled/Continuous Medications Scheduled Medication Dose/Rate, Route, Frequency Last Action aspirin EC tablet 81 mg 81 mg, PO, Once a day Given: 09/18 909 atorvastatin (LIPITOR) tablet 40 mg 40 mg, PO, Nightly Given: 09/17 2020 clotrimazole (LOTRIMIN) 1 % cream No Dose/Rate, TP, BID Given: 09/18 909 enoxaparin (LOVENOX) syringe 40 mg 40 mg, SC, Q24H PRERNA Given: 09/18 513 glimepiride (AMARYL) tablet 4 mg 4 mg, PO, Daily with breakfast Given: 09/18 909 insulin lispro (HumaLOG) injection 0-12 Units 4 Units, SC, AC & HS Given - Witness Not Required: 09/18 122 metFORMIN (GLUCOPHAGE) tablet 500 mg 500 mg, PO, BID with meals Given: 09/18 175 glucose ??? dextrose 5 % and sodium chloride 0.45 % ??? dextrose ??? glucagon No Known Allergies MEDICAL DECISION MAKING/PLAN: Patient Active Problem List Diagnosis ??? Essential hypertension ??? Diabetes mellitus without mention of complication, type II or unspecified type, uncontrolled ??? Hemiplegia affecting right dominant side ??? Dysarthria ??? Dyslipidemia with high density lipoprotein below reference range and triglyceride above reference range due to type 2 diabetes mellitus ??? Multiple lacunar infarcts ??? Morbid obesity ?? CVA / right tristan: 09/17 stable. Therapies initiated. 09/18 stable. Continue therapies. ? CVA PRX: ASA+Lipitor. ? HTN: 09/17 within nornal limit without treatment. Observe closely. 09/18 low level of normal range. On no treatment. Observe. ?? Diabetes mellitus follow up: 09/17 BS is significantly hig. I started her on Glimepiride 4 mg daily and d/c Lantus. Continue Metformin. 09/18 BS remains high. I started alogliptin along with others. Continue SSI. ?? Bowel and Bladder functions: 09/17 incontinent of bladder. I discussed with patient of scheduled assistance to toilet. ?? Ring worm skin rash: 09/17 contact isolation was ordered. Lotrimin was started. Observed. ?? DVT PRx: 09/17 switch heparin to Lovenox 09/18 asymptomatic. ?? Mobility progress: I have seen patient in the gym and reviewed the PT notes as follow: 09/17 ambulates 120 feet with fww with R hand splint with minimal assistance for safety and balance. gait deiations include dec joseline dec step length, dec control intermittently of R knee, dec base of support. 09/18 t/f with minimal assistance. ambulates 20 ft with RW and min assist for balance. Gait deviations include decreased joseline, step length, increased trunk flexion. Slight path deviation x 3, difficulty navigating walker around cluttered corners. ?? Personal care activity progress: I have reviewed OT progress notes as follow: 09/17 Pt demos good progress with R UE neuro re-education and functional transfers. POC to continue addressing R UE function, cognitive skills and balance ?? Cognitive linguistic functions: I have reviewed ST notes as follow: ?? Coordination with consultants/read notes: CODE: Full. YUE REED MD 6:25 PM * Zehra Hirsch MD - 09/18/2017 4:40 PM CDT HOSPITALIST PROGRESS NOTE Patient Name: Maria Long : 1960 Medical Record: [id number] DATE OF SERVICE 09/18/2017 ATTENDING Yue Reed MD SUBJECTIVE The patient is being seen for follow-up of <principal problem not specified>. BP, BS , HR, labs, strength. .Chief Complaint ABN LABS strength improving, able to do therapy ok. No chest pain, no SOB, no dizziness, no palpitations, no new neurologic symptoms. No cough, No nausea or vomiting, No abdominal pain. History also obtained from Nurse and staff about how the patient did overnight and during the day strength improving, able to do therapy ok. CURRENT Medications Current Facility-Administered Medications: ??? aspirin EC tablet 81 mg, 81 mg, Oral, Once a day, Yue Reed MD, 81 mg at 09/18/17 0910 ??? atorvastatin (LIPITOR) tablet 40 mg, 40 mg, Oral, Nightly, Yue Reed MD, 40 mg at ??? clotrimazole (LOTRIMIN) 1 % cream, , Topical, 2 times per day, Yue Reed MD ??? dextrose (GLUTOSE) 40 % oral gel 15 g, 15 g, Oral, PRN, Yue Reed MD ??? dextrose 5 % and sodium chloride 0.45 % infusion, 50 mL/hr, Intravenous, PRN, Yue Reed MD ??? dextrose 50 % solution 25 g, 25 g, Intravenous, PRN, Yue Reed MD ??? enoxaparin (LOVENOX) syringe 40 mg, 40 mg, Subcutaneous, Q24H PRERNA, Yue Reed MD, 40 mg at 09/18/17 0514 ??? glimepiride (AMARYL) tablet 4 mg, 4 mg, Oral, Daily with breakfast, Yue Reed MD, 4 mg at 09/18/17 0910 ??? glucagon (human recombinant) injection 1 mg, 1 mg, Intramuscular, PRN, Yue Reed MD ? ? insulin lispro (HumaLOG) injection 0-12 Units, 0-12 Units, Subcutaneous, AC & HS, 4 Units at 09/18/17 1224 AND POCT glucose, , , AC & HS, Yue Reed MD ??? metFORMIN (GLUCOPHAGE) tablet 500 mg, 500 mg, Oral, BID with meals, Yue Reed MD, 500 mg at 09/18/17 0909 DATA Vitals: 09/16/17 2016 09/17/17 0715 09/17/17201209/18/17 0700 BP: 121/84 119/71 118/88 107/63 Pulse: 78 79 74 61 Resp: Temp: 98.1 ??F (36.7 ??C) 97.1 ??F (36.2 ??C) 98.1 ??F (36.7 ??C) 98.2 ??F (36.8 ??C) TempSrc: Oral Oral Oral Oral SpO2: 97% 94% 96% 99% Weight: Height: POC Glucose POC Glucose 09/18/17 0536 241(A) 09/17/17 2219 220(A) Weights (last 3 days) Date/Time Weight Drug Calculation Weight Height BSA (Calculated - sq m) 09/15/172006 196 lb 6 oz (89.1 kg) -- 5' 6 (1.676 m) 2.03 sq meters 09/15/17 1754 -- 296 lb (134 kg) -- -- @ANTICOAGSUMMARY@ @FLOWDATE(2706:LAST)@ Intake/Output Summary (Last 24 hours) at 09/18/17 1640 Last data filed at 09/17/17 1800 Gross per 24 hour Intake 240 ml Output 0 ml Net 240 ml PHYSICAL EXAM General appearance: awake, alert, cooperative, no distress HEENT: Normocephalic, No icterus, No oral lesions, Oral and nasal mucosa moist Neck: Supple, no lymphadenopathy Eyes: EOMI, Conjunctiva normal, No discharge Cardiovascular: Normal heart rate, Normal rhythm, No murmurs, No rubs, No gallops Respiratory: Normal breath sounds, No respiratory distress, No wheezing, No rhonchi, No rales, No chest tenderness. GI: Bowel sounds normal, Soft, No tenderness, No rebound or guarding, No masses. Abdomen: soft without mass, non-tender, with normal bowel sounds Extremities: no clubbing, cyanosis or edema, no calf tenderness Musculoskeletal:no swelling of joints.no redness Psychologic: Mood ok, no suicidal ideation. Skin: No rash. Warm and Dry, CLOTH DYEING RANGE TENDER:No new deficits LABS CBC with Differential: Lab Results Component Value Date WBC 11.1 (H) 09/18/2017 HGB 14.9 09/18/2017 HCT 45.1 09/18/2017 PLT 218 09/18/2017 MCV 94.7 09/18/2017 MCH 31.3 09/18/2017 MCHC 33.0 09/18/2017 RDW 11.5 (L) 09/18/2017 [ BMP: Lab Results Component Value Date NA 136 09/18/2017 K 4.3 09/18/2017 CL 105 09/18/2017 CO2 21 (L) 09/18/2017 BUN 19 09/18/2017 CREATININE 0.62 09/18/2017 GLUCOSE 219 (H) 09/18/2017 CALCIUM 8.7 09/18/2017 ANIONGAP 10 09/18/2017 MG/PHOS: No results found for: MG, PHOS CKMB: No components found for: CKMB;2 PT/INR: No results found for: LABPROT, INR BNP: No results found for: BNP Last 3 Troponin: No components found for: TROPONINI;3 U/A: No results found for: COLORU, CLARITYU, GLUCOSEU, BILIRUBINUR, KETONESU, SPECGRAV, BLOODU, PHUR, UROBILINOGEN, NITRITE, LEUKOCYTESUR, MUCUS, RBCUA, WBCUA CMP: Lab Results Component Value Date NA 136 09/18/2017 K 4.3 09/18/2017 CL 105 09/18/2017 CO2 21 (L) 09/18/2017 BUN 19 09/18/2017 CREATININE 0.62 09/18/2017 GLUCOSE 219 (H) 09/18/2017 CALCIUM 8.7 09/18/2017 ANIONGAP 10 09/18/2017 LFT's: No results found for: ALB, PROT Ionized Calcium: No components found for: IONCA ABG: No results found for: PHART, [id number], PO2ART, [id number], BEART, [id number] HgBA1c: No results found for: HGBA1C Lipid Panel: No results found for: CHOL, TRIG, HDL TSH: No results found for: TSH Lab Results Component Value Date GLUCOSE 219 (H) 09/18/2017 BUN 19 09/18/2017 CREATININE 0.62 09/18/2017 NA 136 09/18/2017 K 4.3 09/18/2017 CL 105 09/18/2017 CO2 21 (L) 09/18/2017 CALCIUM 8.7 09/18/2017 @RESU CBC: Results from last 7 days Lab Units 09/18/17 0400 WBC X(10)9/L BLOOD x10E9/L 11.1* HGB GM/DL BLOOD gm/dL 14.[address] X(10)9/L BLOOD x10E9/L 218 MCV FL BLOOD fl 94.7 BMP: Results from last 7 days Lab Units 09/18/17 0400 SODIUM MMOL/L BLOOD mmol/L 136 POTASSIUM MMOL/L BLOOD mmol/L 4.3 CHLORIDE mmol/L 105 CO2 mmol/L 21* BUN MG/DL BLOOD mg/dL 19 CREATININE mg/dL 0.62 GLUCOSE MG/DL BLOOD mg/dL 219* CALCIUM MG/DL BLOOD mg/dL 8.7 I reviewed the EKG tracing/Xray Results from last 7 days Lab Units 09/18/17 0400 SODIUM MMOL/L BLOOD mmol/L 136 POTASSIUM MMOL/L BLOOD mmol/L 4.3 CHLORIDE mmol/L 105 CO2 mmol/L 21* BUN MG/DL BLOOD mg/dL 19 CREATININE mg/dL 0.62 GLUCOSE MG/DL BLOOD mg/dL 219* CALCIUM MG/DL BLOOD mg/dL 8.7 ANION GAP BLOOD mmol/L 10 ASSESSMENT AND PLAN Active Problems: Essential hypertension Diabetes mellitus without mention of complication, type II or unspecified type, uncontrolled Hemiplegia affecting right dominant side Dysarthria Dyslipidemia with high density lipoprotein below reference range and triglyceride above reference range due to type 2 diabetes mellitus Multiple lacunar infarcts Morbid obesity Left Delgado Radiata/ Internal Capsule: - Lacunar infarction - Continue ASA, Statin - Target Normotension - PT/OT DMUncontrolled Increase lantus HT N allow pwrissive htn AZEEM UE TINEA corpioris rig worm Topical antifungals Leukocytosis F/U METABOLIC ACIDOSIS FEN. Nutrition consult for evaluation of nutritional status and the best diet. And for BMI evaluation and education regarding maintaining a healthy BMI Bladder management Bowel management . Titrate bowel medications for constipation/diarrhea. Skin. Nursing to address skin care throughout stay. Sleep. Monitor sleep-wake cycle. High Fall risk- Fall precautions DVT Prophylaxis Code Status full D/W patient , and attending physician about test results and treatment plan .No family in the room.Patient requiring monitoring of BP and HR while doing 3 hour intensive exercises to avoid fluctuations and hypotension . Aswell as monitoring of nutritional and fluid status , by weights, leg edema .Notified staff and patient to notify me of any change inconditions or new problems Electronically signed by: ZEHRA HIRSCH MD, 09/18/2017 4:40 PM * Zehra Hirsch MD - 09/17/2017 11:23 PM CDT HOSPITALIST PROGRESS NOTE Patient Name: Maria Long : 1960 Medical Record: [id number] DATE OF SERVICE 09/17/2017 ATTENDING Yue Reed MD SUBJECTIVE The patient is being seen for follow-up of <principal problem not specified>. BP, BS , HR, labs, strength. .Chief Complaint BG high strength improving, able to do therapy ok. No chest pain, no SOB, no dizziness, no palpitations, no new neurologic symptoms. No cough, No nausea or vomiting, No abdominal pain. History also obtained from Nurse and staff about how the patient did overnight and during the day strength improving, able to do therapy ok. CURRENT Medications Current Facility-Administered Medications: ??? aspirin EC tablet 81 mg, 81 mg, Oral, Once a day, Yue Reed MD, 81 mg at 09/17/17 0803 ??? atorvastatin (LIPITOR) tablet 40 mg, 40 mg, Oral, Nightly, Yue Reed MD, 40 mg at ??? clotrimazole (LOTRIMIN) 1 % cream, , Topical, 2 times per day, Yue Reed MD ??? dextrose (GLUTOSE) 40 % oral gel 15 g, 15 g, Oral, PRN, Yue Reed MD ??? dextrose 5 % and sodium chloride 0.45 % infusion, 50 mL/hr, Intravenous, PRN, Yue Reed MD ??? dextrose 50 % solution 25 g, 25 g, Intravenous, PRN, Yue Reed MD ??? [START ON 09/18/2017] enoxaparin (LOVENOX) syringe 40 mg, 40 mg, Subcutaneous, Q24H PRERNA, Yue Reed MD ??? [START ON 09/18/2017] glimepiride (AMARYL) tablet 4 mg, 4 mg, Oral, Daily with breakfast, Yue Reed MD ??? glucagon (human recombinant) injection 1 mg, 1 mg, Intramuscular, PRN, Yue Reed MD ? ? insulin lispro (HumaLOG) injection 0-12 Units, 0-12 Units, Subcutaneous, AC & HS, 4 Units at 09/17/17 2128 AND POCT glucose, , , AC & HS, Yue Reed MD ??? metFORMIN (GLUCOPHAGE) tablet 500 mg, 500 mg, Oral, BID with meals, Yue Reed MD, 500 mg at 09/17/17 1628 DATA Vitals: 09/16/17 1031 09/16/17201509/17/17 0715 09/17/172012 BP: 112/65 121/84 119/71 118/88 Pulse: 70 78 79 74 Resp: Temp: 98.1 ??F (36.7 ??C) 97.1 ??F (36.2 ??C) 98.1 ??F (36.7 ??C) TempSrc: Oral Oral Oral SpO2: 96% 97% 94% 96% Weight: Height: POC Glucose POC Glucose 09/17/17 2219 220(A) 09/17/17 1621 250(A) 09/17/17 1159 244(A) 09/17/17 0629 239(A) 09/16/17 2325 283(A) Weights (last 3 days) Date/Time Weight Drug Calculation Weight Height BSA (Calculated - sq m) 09/15/172006 196 lb 6 oz (89.1 kg) -- 5' 6 (1.676 m) 2.03 sq meters 09/15/17 175 -- 296 lb (134 kg) -- -- @ANTICOAGSUMMARY@ @FLOWDATE(2706:LAST)@ Intake/Output Summary (Last 24 hours) at 09/17/17 2323 Last data filed at 09/17/17 1800 Gross per 24 hour Intake 990 ml Output 0 ml Net 990 ml PHYSICAL EXAM General appearance: awake, alert, cooperative, no distress HEENT: Normocephalic, No icterus, No oral lesions, Oral and nasal mucosa moist Neck: Supple, no lymphadenopathy Eyes: EOMI, Conjunctiva normal, No discharge Cardiovascular: Normal heart rate, Normal rhythm, No murmurs, No rubs, No gallops Respiratory: Normal breath sounds, No respiratory distress, No wheezing, No rhonchi, No rales, No chest tenderness. GI: Bowel sounds normal, Soft, No tenderness, No rebound or guarding, No masses. Abdomen: soft without mass, non-tender, with normal bowel sounds Extremities: no clubbing, cyanosis or edema, no calf tenderness Musculoskeletal:no swelling of joints.no redness Psychologic: Mood ok, no suicidal ideation. Skin: circular rash on both hands. Warm and Dry, CLOTH DYEING RANGE TENDER:No new deficits LABS CBC with Differential: No results found for: WBC, RBC, HGB, HEMOGLOBIN, HCT, HEMATOCRIT, PLT, MCV, MCH, MCHC, RDW, NEUTPERCENT, MONOPERCENT, LYMPHPERCENT, BASOPERCENT[ BMP: No results found for: NA, SODIUM, K, CL, CO2, BUN, CREATININE, LABCREA, AA, EGFR, GLU, LABGLUC, GLUCOSE, GLUCOSEFL, CALCIUM, CALCIUMUR, ANIONGAP MG/PHOS: No results found for: MG, PHOS CKMB: No components found for: CKMB;2 PT/INR: No results found for: LABPROT, INR BNP: No results found for: BNP Last 3 Troponin: No components found for: TROPONINI;3 U/A: No results found for: COLORU, CLARITYU, GLUCOSEU, BILIRUBINUR, KETONESU, SPECGRAV, BLOODU, PHUR, UROBILINOGEN, NITRITE, LEUKOCYTESUR, MUCUS, RBCUA, WBCUA CMP: No results found for: NA, SODIUM, K, CL, CO2, BUN, CREATININE, LABCREA, GLU, LABGLUC, GLUCOSE,PROT, CALCIUM, ALBUMIN, BILITOT, ALKALINEPHO, ALT, AST, ANIONGAP, AA, EGFR LFT's: No results found for: ALB, PROT Ionized Calcium: No components found for: IONCA ABG: No results found for: PHART, [id number], PO2ART, [id number], BEART, [id number] HgBA1c: No results found for: HGBA1C Lipid Panel: No results found for: CHOL, TRIG, HDL TSH: No results found for: TSH No results found for: GLUCOSE, BUN, CREATININE, EGRF, AA, ROXANNE, NA, K, CL, CO2, CALCIUM @RESU CBC: BMP: I reviewed the EKG tracing/Xray Invalid input(s): POTASSIUM, GLF, CA ASSESSMENT AND PLAN Active Problems: Essential hypertension Diabetes mellitus without mention of complication, type II or unspecified type, uncontrolled Hemiplegia affecting right dominant side Dysarthria Dyslipidemia with high density lipoprotein below reference range and triglyceride above reference range due to type 2 diabetes mellitus Multiple lacunar infarcts Morbid obesity Left Delgado Radiata/ Internal Capsule: - Lacunar infarction - Continue ASA, Statin - Target Normotension - PT/OT DMUncontrolled Still high Just Increase lantus HT N allow pwrissive htn AZEEM UE TINEA corpioris rig worm Topical antifungals FEN. Nutrition consult for evaluation of nutritional status and the best diet. And for BMI evaluation and education regarding maintaining a healthy BMI Bladder management Bowel management . Titrate bowel medications for constipation/diarrhea. Skin. Nursing to address skin care throughout stay. Sleep. Monitor sleep-wake cycle. High Fall risk- Fall precautions DVT Prophylaxis Code Status full D/W patient , and attending physician about test results and treatment plan .No family in the room.Patient requiring monitoring of BP and HR while doing 3 hour intensive exercises to avoid fluctuations and hypotension . Aswell as monitoring of nutritional and fluid status , by weights, leg edema .Notified staff and patient to notify me of any change inconditions or new problems Electronically signed by: ZEHRA HIRSCH MD, 09/17/2017 11:23 PM * Yue Reed MD - 09/17/2017 12:04 PM CDT REHAB PROGRESS NOTE Patient: Maria Long, 57 y.o. CC: . The rest of ROS is negative. PFSHX: PMH: I have reviewed and there is no change Family: I have reviewed and there is no change Social: I have reviewed and there is no change OBJECTIVE: Vitals: Vitals: 09/17/17714 BP: 119/71 Pulse: 79 Resp: 18 Temp: 97.1 ??F (36.2 ??C) SpO2: 94% CONSTITUTIONAL: CALM. EYES: PERRLA, EOMI ENT/MOUTH/NECK: EXT EAR NORMAL, NARES PATENT, OP CLEAR. CV: RRR. PULM: CTA BILATERAL. GI: SOFT, NON TENDER, NON DISTENDED, BOWEL SOUNDS INTACT. : DIAPERS EXT: NO CLUBBING, CYANOSIS, EDEMA, NO CALF TENDERNESS JAM'S SIGNS NEGATIVE. MSK: TONE, STRENGTH, GAIT SKIN: DRESSINGS, SURGICAL WOUND, EDEMA, LESIONS NEURO: A&OX3, REFLEXES, SENSATION, STRENGTH RIGHT /5 AND LEFT /5 PSYCH: MOOD, AFFECT LABS/IMAGING: I reviewed the lab test results as follow: POC Glucose POC Glucose 09/17/17 1159 244(A) 09/17/17 0629 239(A) 09/16/17 2325 283(A) 09/16/17 1928 269(A) 09/16/17 192 263(A) CURRENT MEDS: Scheduled/Continuous Medications Scheduled Medication Dose/Rate, Route, Frequency Last Action aspirin EC tablet 81 mg 81 mg, PO, Once a day Given: 09/17 802 atorvastatin (LIPITOR) tablet 40 mg 40 mg, PO, Nightly Given: 09/16 2132 clotrimazole (LOTRIMIN) 1 % cream No Dose/Rate, TP, BID Given: 09/18 907 heparin (porcine) injection 5,000 Units 5,000 Units, SC, Q8H PRERNA Given: 09/17 614 insulin glargine (LANTUS) injection 10 Units 10 Units, SC, Daily with breakfast Given - Witness NotRequired: 09/18 719 insulin lispro (HumaLOG) injection 0-12 Units 4 Units, SC, AC & HS Given - Witness Not Required: 09/18 1199 metFORMIN (GLUCOPHAGE) tablet 500 mg 500 mg, PO, BID with meals Given: 09/17 720 glucose ??? dextrose 5 % and sodium chloride 0.45 % ??? dextrose ??? glucagon No Known Allergies MEDICAL DECISION MAKING/PLAN: Patient Active Problem List Diagnosis ??? Essential hypertension ??? Diabetes mellitus without mention of complication, type II or unspecified type, uncontrolled ??? Hemiplegia affecting right dominant side ??? Dysarthria ??? Dyslipidemia with high density lipoprotein below reference range and triglyceride above reference range due to type 2 diabetes mellitus ??? Multiple lacunar infarcts ??? Morbid obesity ?? CVA / right tristan: 09/17 stable. Therapies initiated. ? CVA PRX: ASA+Lipitor. ? HTN: 09/17 within nornal limit without treatment. Observe closely. ?? Diabetes mellitus follow up: 09/17 BS is significantly hig. I started her on Glimepiride 4 mg daily and d/c Lantus. Continue Metformin. ?? Bowel and Bladder functions: 09/17 incontinent of bladder. I discussed with patient of scheduled assistance to toilet. ?? Ring worm skin rash: 09/17 contact isolation was ordered. Lotrimin was started. Observed. ?? DVT PRx: 09/17 switch heparin to Lovenox ?? Mobility progress: I have seen patient in the gym and reviewed the PT notes as follow: 09/17 ambulates 120 feet with fww with R hand splint with minimal assistance for safety and balance. gait deiations include dec joseline dec step length, dec control intermittently of R knee, dec base of support. ?? Personal care activity progress: I have reviewed OT progress notes as follow: 09/17 Pt demos good progress with R UE neuro re-education and functional transfers. POC to continue addressing R UE function, cognitive skills and balance ?? Cognitive linguistic functions: I have reviewed ST notes as follow: ?? Coordination with consultants/read notes: CODE: Full. YUE REED MD 12:04 PM documented in this encounter H&P Notes * Yue Reed MD - 09/16/2017 1:17 PM CDT 09/15/2017 7:26 PM Date of admission to acute hospital: 09/12/2017 DIAGNOSES ON ADMISSION: Patient Active Problem List Diagnosis ??? Essential hypertension ??? Diabetes mellitus without mention of complication, type II or unspecified type, uncontrolled ??? Hemiplegia affecting right dominant side ??? Dysarthria ??? Dyslipidemia with high density lipoprotein below reference range and triglyceride above reference range due to type 2 diabetes mellitus ??? Multiple lacunar infarcts ??? Morbid obesity ?? Self-care, activities of daily living deficits ?? Mobility deficits ?? Cognition deficits. REASON FOR ADMISSION: I have a stroke. HPI: Patient is a 57 year old female with a PMHx of DM on metformin who presented to [facility] by [facility] for right sided weakness and slurred speech. Last seen normal on 09/11/2017 at 10 pm. Patient was noted to have right sided weakness and slurred speech by EMS at 1 am. She was brought next day morning to [facility] ER. Her glucose was 323 by EMS and 426 here at [facility]. Her CTH was negative for any bleeding. CTA didn't show LVO. Her NIHSS was 5 (3 for right arm, 1 for facial palsy and 1 for dysarthria). TPA was not given due to being outside the window. Patient was admitted to Stroke service for further evaluation. Neuro functions: Cortical Function: MS: Awake, Alert, Follows Commands, Oriented to Person, Place and Time. Language: Coherent, Repetition Intact. Mild dysarthria. VF: Intact to confrontation test. Neglect: No visual neglect, No tactile neglect. Cranial Nerves:Pupils 3 mm BRTL, Full EOM, No ptosis or nystagmus. Motor: Abnormal Movements: None. Bulk: Normal. Tone: Normal RUE Proximal: 1/5 LUE Proximal: 5/5. Distal: 1/5 Distal: 5/5 RLE Proximal: 4/5 LLE Proximal: 5/5 Distal: 4/5 Distal: 5/5 09/12/2017 16:32 MRI BRAIN WO CONTRAST: Small volume acute left basal ganglia infarct without hemorrhagic conversion. ECHO (09/14/2017) 1. There is concentric remodeling of the left ventricle. 2. The left ventricular cavity size and systolic function are normal with no regional wall motion abnormalities present. 3. The left ventricular ejection fraction is estimated at 65 %. 4. Normal left ventricular diastolic function. 5. The right ventricular systolic function is normal.The right ventricular cavity size is normal. 6. Agitated saline bubble study is technically difficult due to image quality but appears normal. 7. No hemodynamically significant valvular abnormalities. 09/13/2017 03:42 Hemoglobin A1c: 13.4 (H) Estimated average glucose: 338 09/12/2017 10:00 Cholesterol: 188 Triglycerides: 400 (H) HDL: 28 (L) LDL (Calculated): 80 Patient was evaluated by therapies in which she with moderate assistance for mobility and with minimal assistance/with moderate assistance for ADL's. She was deemed an appropriate candidate for inpatient rehabilitation and brought to [facility] for post acute care on 09/15/2017 7:26 PM Review of Systems Denied headache, dizziness, double or blurred vision, hearing deficit, stuffy nose, neck pain, chest pain, abdominal discomforts. RN reported to me of her skin rash to the hands and forearm. Patient reported of its chronicity, denied itching. Denied rash anywhere else in the body. Remainder of review of systems as per HPI. PAST MEDICAL HISTORY: Active Ambulatory Problems Diagnosis Date Noted ??? No Active Ambulatory Problems Resolved Ambulatory Problems Diagnosis Date Noted ??? No Resolved Ambulatory Problems Past Medical History: Diagnosis Date ??? Diabetes mellitus ??? Hypertension PAST SURGICAL HISTORY: Past Surgical History: Procedure Laterality Date ??? CHOLECYSTECTOMY 1986 FAMILY HISTORY: Parents . She doesn't remember their medical history. Daughter is healthy. SOCIAL HISTORY: Lives with:: Spouse;Daughter;Other (Comment) Type of Residence: Private Residence Steps to Enter: 1 Handrails: None Home Structure: One Story ALLERGIES: No Known Allergies CURRENT MEDICATIONS: Current Facility-Administered Medications Medication Dose Route Frequency Provider Last Rate Last Dose ??? aspirin EC tablet 81 mg 81 mg Oral Once a day Yue Reed MD 81 mg at 09/16/17 0840 ??? atorvastatin (LIPITOR) tablet 40 mg 40 mg Oral Nightly Yue Reed MD 40 mg at 09/15/17 2134 ??? clotrimazole (LOTRIMIN) 1 % cream Topical 2 times per day Yue Reed MD ??? dextrose (GLUTOSE) 40 % oral gel 15 g 15 g Oral PRN Yue Reed MD ??? dextrose 5 % and sodium chloride 0.45 % infusion 50 mL/hr Intravenous PRN Yue Reed MD ??? dextrose 50 % solution 25 g 25 g Intravenous PRN Yue Reed MD ??? glucagon (human recombinant) injection 1 mg 1 mg Intramuscular PRN Yue Reed MD ??? heparin (porcine) injection 5,000 Units 5,000 Units Subcutaneous Q8H [facility] Yue Reed MD 5,000 Units at 09/16/17 0604 ? ? insulin lispro (HumaLOG) injection 0-12 Units 0-12 Units Subcutaneous AC & HS Yue Reed MD 6 Units at 09/16/17 1225 PHYSICAL EXAMINATION: VITAL SIGNS: BP 112/65 Pulse 70 Temp 97.3 ??F (36.3 ??C) (Oral) Resp 18 Ht 5' 6 (1.676 m) Wt 196 lb 6 oz (89.1 kg) SpO2 96% BMI 31.7 kg/m2 GENERAL: calm, in no apparent distress. HEAD: Normocephalic. EYES: Extraocular muscles intact. ENT: Hearing grossly normal. Nares patent. Oropharynx clear. Mucous membranes moist. Patient is edentulous. CARDIOVASCULAR: S1, S2. No murmurs. LUNGS: Clear anteriorly. No wheezes, no rales. ABDOMEN: Soft, nontender, nondistended. Positive bowel sounds. EXTREMITIES: No clubbing, cyanosis, or edema. MUSCULOSKELETAL: good bulk. SKIN: rash is noted to both hand dorsum and left forearm, ring form, border raise, pink color of different sizes. Denied itching. NURSING WOUND ASSESSMENT: NEUROLOGIC: Patient is alert. Oriented X3 . CN II-XI: right facial drooping. Full EOM. No visual deficit. Slurred speech. Sightly drooping of right shoulder. Pt has impaired strength of right side with 4-/5 strength. Fair coordination and sensation. Performs [id number] with with weakness. 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 Reflexes are increased on right throughout. Speech is intelligible. Pt follows simple 1-step commands ok. Gait was not tested. LABS AND IMAGIN09/12/2017 09:50 XR CHEST 1VW PORTABLE: No acute pulmonary process. 09/12/2017 09:43 TROPONIN I: <0.010 09/12/2017 09:51 B-TYPE NATRIURETIC (SLH): <10 09/12/2017 09:51 PT: 13.0 INR: 1.0 PTT: 25.7 09/15/2017 03:04 Glucose: 189 (H) BUN: 19 Creatinine: 0.6 BUN/Creatinine Ratio: 32 (H) Sodium: 139 Potassium: 3.3 (L) Chloride: 104 Carbon Dioxide: 27 ANION GAP: 11 Calcium: 9.4 Alkaline Phosphatase: 88 ALT (SGPT): 11 AST/SGOT: 12 Total Protein: 6.3 Albumin: 3.0 (L) Bilirubin Total: 0.5 PHOSPHOROUS: 4.0 eGFR: >60 Osmolality Ca A/G Ratio: 0.9 (L) ASSESSMENT AND PLAN: Patient is admitted to inpatient rehab for post-acute care. ?? The patient will be admitted for inpatient comprehensive interdisciplinary rehabilitation to address the impairments and medical conditions listed above while assessing equipment needs and compensatory strategies with coordinated interdisciplinary services that will include physical therapy, occupational therapy, and close monitoring and treatment with 24-hour rehabilitative nursing. This interdisciplinary program will be performed under the direction of a tinning machine set up operator. ?? Internal medicine consult for medical comorbidity management. ?? Neuropsychological consult for adjustment to disability. ?? Case management to arrange team conferences and safe home disposition. ?? Cerebrovascular accident prophylaxis. Continue Aspirin and statin. ?? HTN - continue current regimen. Continue monitoring blood pressure. ?? DM - accucheck ACHS. Continue SSI and scheduled insulin. Continue hypoglycemia protocol. Will start Metformin and glimepiride. ?? Skin: r/o ring worm. Started Lotrimin. ?? Bladder management: Assisted schedule ?? Bowel management. Titrate bowel medications for constipation/diarrhea. We will encourage p.o. fluids and mobility. ?? Skin. Nursing to address skin care throughout stay. ?? Deep venous thrombosis on Heparin. CODE STATUS. I have reviewed the patient and she is a FULL CODE. DISPOSITION: Home. ESTIMATED LENGTH OF STAY: 2-3 weeks. REHABILITATION GOALS: ?? HTN: controlled. ?? DM: controlled. ?? CVA prophylaxis: ASA and Lipitor. ?? Mobility: independently with wheeled walker for in house distance. ?? Personal care activities independently with equipmwnt. ?? Patient and caregiver education for safe home disposition. ?? Equipment evaluation. PRECAUTIONS: Fall precautions and aspiration precautions. PROGNOSIS: At the current time, this inpatient hospital rehabilitation stay is medically necessary to achieve important health and functional goals. The patient requires frequent physician visits, 24-hour rehabilitation nursing, and a coordinated intensive rehabilitation program as described above to address complex medical, nursing, and rehabilitation needs. The patient has a good prognosis for benefiting from this program and returning to home and community. documented in this encounter Consult Notes * Zehra Hirsch MD - 09/16/2017 11:48 PM CDT Hospitalist Consultation Patient Name: Maria Long : 1960 Medical Record: [id number] Date of Service 09/16/2017 Primary Care Physician No primary care provider on file. Attending Physician Yue Reed MD Consulting physician ZEHRA HIRSCH MD Reason for consult Management of multiple active medical problems including Active Problems: Essential hypertension Diabetes mellitus without mention of complication, type II or unspecified type, uncontrolled Hemiplegia affecting right dominant side Dysarthria Dyslipidemia with high density lipoprotein below reference range and triglyceride above reference range due to type 2 diabetes mellitus Multiple lacunar infarcts Morbid obesity History of Present illness The patient is a 57 y.o. y/o female with history of DM , HTN presented to acute hospital forRIGHT WEAKNESS diagnsoed with cva , currently here for therapy Todays chief Complains Right weakness BG high Rash on hands circualr Duration of problems- Intensity Type Associated symptoms Aggrevating/relieving factors History also obtained from review of patients previous acute hospitalization chart, current rehabilitation chart , discussion with family members in the room and discussion with nursing staff taking care of the patient. Review of Systems General: no weight loss, no fever, no chills, no anorexia Skin: no rash Eyes: no blurry vision Ears/Nose/Throat: no nasal congestion, no sore throat Respiratory: no cough, no dyspnea, no wheezing Cardiovascular: no chest pain, no ankle swelling Gastrointestinal: no nausea, no vomiting, no diarrhea, no constipation, no abdominal pain. No melena, no bright red blood per rectum Genitourinary: no dysuria, no hematuria Musculoskeletal: no joint pain, no myalgia, no muscle weakness Neurologic: no seizures, no tremors, no fainting, no focal weakness , tingling or numbness Hematologic/Lymphatic: no abnormal bleeding, no abnormal bruising Endocrine: no heat or cold intolerance, no polydipsia, no polyuria Psychiatric: no anxiety, no depression Allergy/Immunology: no seasonal allergies, no joint stiffness in morning Review of ssytems pertinent as above and all the other 14 organ systems are negative Past Medical History Past Medical History: Diagnosis Date ??? Diabetes mellitus ??? Hypertension Past Surgical History Past Surgical History: Procedure Laterality Date ??? CHOLECYSTECTOMY 1986 Allergies No Known Allergies Home Medications Prior to Admission medications Not on File CURRENT Medications Current Facility-Administered Medications: ??? aspirin EC tablet 81 mg, 81 mg, Oral, Once a day, Yue Reed MD, 81 mg at 09/16/17 0840 ??? atorvastatin (LIPITOR) tablet 40 mg, 40 mg, Oral, Nightly, Yue Reed MD, 40 mg at 133 ??? clotrimazole (LOTRIMIN) 1 % cream, , Topical, 2 times per day, Yue Reed MD ??? dextrose (GLUTOSE) 40 % oral gel 15 g, 15 g, Oral, PRN, Yue Reed MD ??? dextrose 5 % and sodium chloride 0.45 % infusion, 50 mL/hr, Intravenous, PRN, Yue Reed MD ??? dextrose 50 % solution 25 g, 25 g, Intravenous, PRN, Yue Reed MD ??? glucagon (human recombinant) injection 1 mg, 1 mg, Intramuscular, PRN, Yue Reed MD ??? heparin (porcine) injection 5,000 Units, 5,000 Units, Subcutaneous, Q8H PRERNA, Yue Reed MD,5,000 Units at 09/16/172132 ? ? insulin lispro (HumaLOG) injection 0-12 Units, 0-12 Units, Subcutaneous, AC & HS, 6 Units at 09/16/172132 AND POCT glucose, , , AC & HS, Yue Reed MD ??? metFORMIN (GLUCOPHAGE) tablet 500 mg, 500 mg, Oral, BID with meals, Yue Reed MD, 500 mg at 09/16/17 1723 Social History reports that she has been smoking. She started smoking about 38 years ago. She has been smoking about 0.25 packs per day. She has never used smokeless tobacco. She reports that she does not drink alcohol or use illicit drugs. Denies smoking, alcohol or illicit drugs currently Family History Family History Problem Relation Age of Onset ??? No Known Problems Mother ??? Heart disease Father No known history of thromboembolism Physical Exam Vital Signs: Temp: [97.3 ??F (36.3 ??C)-98.1 ??F (36.7 ??C)] 98.1 ??F (36.7 ??C) Pulse: [70-112] 78 Resp: [18] 18 BP: (112-159)/(65-84) 121/84 I/O Intake/Output Summary (Last 24 hours) at 09/16/17 2348 Last data filed at 09/16/17 1230 Gross per 24 hour Intake 480 ml Output 0 ml Net 480 ml POC Glucose POC Glucose 09/16/17 2325 283(A) 09/16/171927 269(A) 09/16/171926 263(A) Weights (last 3 days) Date/Time Weight Drug Calculation Weight Height BSA (Calculated - sq m) 09/15/172006 196 lb 6 oz (89.1 kg) -- 5' 6 (1.676 m) 2.03 sq meters 09/15/17 175 -- 296 lb (134 kg) -- -- WEIGHTS 196 lb 6 oz (89.1 kg) General appearance: awake, alert, cooperative, no distress HEENT: Normocephalic, No icterus, No oral lesions, Oral and nasal mucosa moist Neck: Supple, no lymphadenopathy Eyes: EOMI, Conjunctiva normal, No discharge Cardiovascular: Normal heart rate, Normal rhythm, No murmurs, No rubs, No gallops Respiratory: Normal breath sounds, No respiratory distress, No wheezing, No rhonchi, No rales, No chest tenderness. GI: Bowel sounds normal, Soft, No tenderness, No rebound or guarding, No masses. Abdomen: soft without mass, non-tender, with normal bowel sounds External Genitalia not examined, groin Extremities: no clubbing, cyanosis or edema, no calf tenderness Musculoskeletal:no swelling of joints.no redness, FROM otherjoints Psychologic: Mood ok, no suicidal ideation. Skin: No rash, swelling or erythema identified . Warm and Dry, Neurologic/CLOTH DYEING RANGE TENDER:Alert & oriented x 3, Speech normal Tongue and uvulaleft extremities , right 3/5 , left 4/5 No clonus Gait not tested ? Please see height, weight, and BP reported elsewhere as part of this encounter Labs No results found for: BUN, CREATININE, EGRF, AA, ROXANNE, NA, K, CL, CALCIUM No results found for: NA, SODIUM, K, CL, CO2, BUN, CREATININE, LABCREA, GLU, LABGLUC, GLUCOSE, PROT, CALCIUM, ALBUMIN, BILITOT, ALKALINEPHO, ALT, AST, ANIONGAP, AA, EGFR HgBA1c: No results found for: HGBA1C Lipid Panel: No results found for: CHOL, TRIG, HDL TSH: No results found for: TSH CBC: BMP: CBC with Differential: No results found for: WBC, RBC, HGB, HEMOGLOBIN, HCT, HEMATOCRIT, PLT, MCV, MCH, MCHC, RDW, NEUTPERCENT, MONOPERCENT, LYMPHPERCENT, BASOPERCENT[ BMP: No results found for: NA, SODIUM, K, CL, CO2, BUN, CREATININE, LABCREA, AA, EGFR, GLU, LABGLUC, GLUCOSE, GLUCOSEFL, CALCIUM, CALCIUMUR, ANIONGAP MG/PHOS: No results found for: MG, PHOS CKMB: No components found for: CKMB;2 PT/INR: No results found for: LABPROT, INR BNP: No results found for: BNP Last 3 Troponin: No components found for: TROPONINI;3 U/A: No results found for: COLORU, CLARITYU, GLUCOSEU, BILIRUBINUR, KETONESU, SPECGRAV, BLOODU, PHUR, UROBILINOGEN, NITRITE, LEUKOCYTESUR, MUCUS, RBCUA, WBCUA CMP: No results found for: NA, SODIUM, K, CL, CO2, BUN, CREATININE, LABCREA, GLU, LABGLUC, GLUCOSE,PROT, CALCIUM, ALBUMIN, BILITOT, ALKALINEPHO, ALT, AST, ANIONGAP, AA, EGFR LFT's: No results found for: ALB, PROT Ionized Calcium: No components found for: IONCA ABG: No results found for: PHART, RUA9QOD, PO2ART, MSC4IGL, BEART, B5OFTCIT HgBA1c: No results found for: HGBA1C Lipid Panel: No results found for: CHOL, TRIG, HDL TSH: No results found for: TSH IMAGING STUDIES & OTHER STUDIES Xrays EKG Assessment and plan Active Problems: Essential hypertension Diabetes mellitus without mention of complication, type II or unspecified type, uncontrolled Hemiplegia affecting right dominant side Dysarthria Dyslipidemia with high density lipoprotein below reference range and triglyceride above reference range due to type 2 diabetes mellitus Multiple lacunar infarcts Morbid obesity Left Delgado Radiata/ Internal Capsule: - Lacunar infarction - Continue ASA, Statin - Target Normotension - PT/OT DMUncontrolled Increase lantus HT N allow pwrissive htn AZEEM UE TINEA corpioris rig worm Topical antifungals FEN. Nutrition consult for evaluation of nutritional status and the best diet. And for BMI evaluation and education regarding maintaining a healthy BMI Bladder management Bowel management . Titrate bowel medications for constipation/diarrhea. Skin. Nursing to address skin care throughout stay. Sleep. Monitor sleep-wake cycle. High Fall risk- Fall precautions DVT Prophylaxis Code Status full The plan was discussed with the patient, attending physician.no family in the room Thank you for the Consult. Electronically signed by: ZEHRA HIRSCH MD, 09/16/2017 11:48 PM CC: No primary care provider on file. * Shanell Oh RD - 09/16/2017 4:13 PM CDTAssociated Order(s): IP CONSULT TO NUTRITION SERVICES; IP CONSULT TO NUTRITION SERVICES Nutrition Initial Assessment Note Date: 09/16/2017 Time: 4:14 PM Patient Name: Maria Long Date of : 1960 Sex: Female Room/Bed: 321/[facility] Principal Problem: Multiple lacunar infarcts [I63.8] Admit Date/Time: 09/15/2017 7:26 PM Relevant Medications: Scheduled/Continuous Medications Scheduled Medication Dose/Rate, Route, Frequency Last Action aspirin EC tablet 81 mg 81 mg, PO, Once a day Given: 09/17 839 atorvastatin (LIPITOR) tablet 40 mg 40 mg, PO, Nightly Given: 09/15 2133 clotrimazole (LOTRIMIN) 1 % cream No Dose/Rate, TP, BID Given: 09/17 839 heparin (porcine) injection 5,000 Units 5,000 Units, SC, Q8H PRERNA Given: 09/17 603 insulin lispro (HumaLOG) injection 0-12 Units 6 Units, SC, AC & HS Given - Witness Not Required: 09/16 1225 metFORMIN (GLUCOPHAGE) tablet 500 mg 500 mg, PO, BID with meals Ordered Relevant Labs: Most recent labs reviewed. Weight: Admit Weight: 196 lb 6 oz (89.1 kg) Latest Weight: 196 lb 6 oz (89.1 kg) (09/15/172006) Weight Comment: usual weight 225# Diet Order: Dietary Orders Start Ordered 09/15/171936 Adult Diet Therapeutic Diet: Low Fat, Carb Controlled; Carbohydrate Controlled: 5 Carb/75gm/meal (2000 calories); Diet Texture: NDD III (Mechanical Soft); Liquid Consistency: All Liquids - No Restrictions Diet effective now Question Answer Comment Therapeutic Diet: Low Fat Therapeutic Diet: Carb Controlled Carbohydrate Controlled: 5 Carb/75gm/meal (2000 calories) Diet Texture: NDD III (Mechanical Soft) Liquid Consistency All Liquids - No Restrictions Place order in third democrat system. Done 09/15/171935 Food/Nutrient Intake: P.O. (mL): 240 mL Percent Meals Eaten (%): 75 Difficulty Chewing or Swallowing: No Anthropometrics: Height: 5' 6 (167.6 cm) Height Method: Stated Weight: 196 lb 6 oz (89.1 kg) Historical Weight Trend (Time Frame): usual weight 225# Weight Method: Bed scale Drug Calculation Weight: 296 lb (134 kg) BMI Amputation Adjustment: No BSA (Calculated - sq m): 2.03 sq meters BMI (Calculated): 31.7 Weight in (lb) to have BMI = 25: 154.6 Nutrition Focused Physical Findings: Physical Assessment: Yes Scalp/Hair: WDL Face: WDL [place] Region (Temporalis muscle): WDL Orbital Region: WDL Eyes: WDL Nose: WDL Lips: WDL Skin: WDL Wounds: No Edema: No edema Hand Region: WDL Nails: WDL Clinical Characteristics of Malnutrition: Malnutrition Context: Acute Illness or Injury Interpretation of weight loss from baseline: >5% over 1 month (severe) Findings: Moderate protein calorie malnutrition Energy Needs: Total Energy Estimated Needs: 25 calories/kg (89) = 2225 Total Protein Estimated Needs: 1.5 gm protien /kg = 135 Total Fluid Estimated Needs: 1 mL fluid/kcalorie Nutrition Support: No Plan of Care - Nutrition Care Plans (Notes for yesterday and today) 1 Author: Shanell Oh RD Service: (none) Author Type: Registered Dietitian Filed: 09/16/2017 4:13 PM Date of Service: 09/16/2017 4:13 PM Status: Signed Director Of Maintenance: Shanell Oh RD (Registered Dietitian) Problem: Unintended Weight [facility] As Evidenced By: pt stating she lost 29# in the past month since she had been hospitalized Goal: Clinical Nutrition Goal Outcome: Progressing 09/16/17 1612 Nutrition Goals Primary Goal Adequate Meals and Snack/Oral Nutrition Supplement Intake Primary Goal Progress New Primary Indicator/Monitor PO intake 75-100% Intervention: Medical Nutrition Therapy Interventions 09/16/17 1612 Nutrition Interventions Meals and Snacks General/healthful diet Coordination of Nutrition Care Continue to Monitor Additional Comments/Recommendations: Reviewed meal ordering process and gave alternative menu selections; Reviewed snacks available uponrequest; Rd name and number given Reviewed modified diet and carb controlled diet; SHANELL OH RD 09/16/17 4:14 PM * Gopi Ellis, PhD - 09/16/2017 3:09 PM CDT PSYCHOLOGY INITIAL EVALUATION SUBJECTIVE: Reason for Referral: Ms. Long is a right handed, female referred for evaluation in order to evaluate cognition and address adjustment to impairment or loss of function. 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 Diabetes mellitus ??? Hypertension Past Surgical History: Procedure Laterality Date ??? CHOLECYSTECTOMY 1987 History of Psych Disorders and Substance Abuse: no history reported Current Medications: Current Facility-Administered Medications: ??? aspirin EC tablet 81 mg, 81 mg, Oral, Once a day, Yue Reed MD, 81 mg at 06/06/18 0840 ??? atorvastatin (LIPITOR) tablet 40 mg, 40 mg, Oral, Nightly, Yue Reed MD, 40 mg at 134 ??? clotrimazole (LOTRIMIN) 1 % cream, , Topical, 2 times per day, Yue Reed MD ??? dextrose (GLUTOSE) 40 % oral gel 15 g, 15 g, Oral, PRN, Yue Reed MD ??? dextrose 5 % and sodium chloride 0.45 % infusion, 50 mL/hr, Intravenous, PRN, Yue Reed MD ??? dextrose 50 % solution 25 g, 25 g, Intravenous, PRN, Yue Reed MD ??? glucagon (human recombinant) injection 1 mg, 1 mg, Intramuscular, PRN, Yue Reed MD ??? heparin (porcine) injection 5,000 Units, 5,000 Units, Subcutaneous, Q8H PRERNA, Yue Reed MD,5,000 Units at 09/16/17 0604 ? ? insulin lispro (HumaLOG) injection 0-12 Units, 0-12 Units, Subcutaneous, AC & HS, 6 Units at 09/16/17 1225 AND POCT glucose, , , AC & HS, Yue Reed MD ??? metFORMIN (GLUCOPHAGE) tablet 500 mg, 500 mg, Oral, BID with meals, Yue Reed MD Family Psych History: no history reported Living Arrangement: family Prior Level of Functioning: Ambulated with an assisstive device Smoking: Yes, denies current cravings Behavior and Appearance: alert Speech: dysarthric Articulation: moderately impaired Fluency: mildly impaired Repetition: no impairment noted Comprehension; no impairment noted Pain: does not report any pain Neurovegetative Symptoms: disturbed sleep onset and disturbed sleep maintenance Affective Range: full Affective Quality: bright and calm Patient reports mood as okay Patient reports cognitive change? (describe if yes): No Recent Stressors or Losses: none Patients stated goals: get better Patients primary supports/community integration: family OBJECTIVE: Cognitive Assessment: Mini Mental Status Exam prorated score 24 / 30 T (age and edu) = 31 Domains Assessed: Orientation: oriented to person, place, time and circumstance Attention: mildly impaired Comprehension: no impairment noted Repetition: no impairment noted Naming: mildly impaired Memory: moderately impaired Registration: 06/13 Free Recall: 04/15 with confabulation Social Judgment: mildly impaired Mood Rating: Geriatric Depression Scale, Score +0/5, WNL ASSESSMENT: Mild to moderate cognitive and communication impairment without apparent insight. Mood non depressed The pt is hopeful for the benefit of rehabilitation; she already perceives gains in mobility and R UE function Ability and willingness to work towards goals, receptivity to psychological support and plan of care :Good PLAN: individual intervention Goals: Patient to show initial understanding of and adjustment to stroke Active participation in all therapies Recommendations for Treatment Team: Recommendations for Attention and Distractibility: ?? Minimize external distractions Recommendations for Memory: ?? Emphasize over-learned tasks such as basic self care ?? Emphasize procedural memory-patient will require much practice and learning by doing ?? Allow increased practice to facilitate encoding of novel information and unfamiliar tasks ?? Assess new learning in rehab via multiple choice ?? Emphasize new learning via demonstration vs. explanation Thank you for the opportunity to participate in your patient's care. If there are any questions about the assessment or recommendations, please do not hesitate to call. GOPI ELLIS, PhD 09/16/2017 3:09 PM documented in this encounter Nursing Notes * Rona Cruz RN - 10/10/2017 10:58 AM CDT Pt received all discharge education and safety education. Verbalized understanding. Discharged to home with family. Belongings went with pt * Amy Juarez RN - 10/09/2017 10:43 PM CDT Images from the original note were not included. * Pati Dean LPN - 10/09/2017 5:40 PM CDT Attended therapy today, has denied any pain today, up in w/c now, call light in reach Cosigned by Shiva Romero RN at 10/09/2017 7:29 PM CDT * Pati Dean LPN - 10/06/2017 3:00 PM CDT Attended therapy today, has denied any pain today Cosigned by Evelia Cowart RN at 10/06/2017 5:31 PM CDT * Pati Dean LPN - 10/05/2017 5:30 PM CDT attende therapy today, has denied any pain today, up in chair now, call light in reach Cosigned by Shiva Romero RN at 10/09/2017 7:29 PM CDT * Bettina Milner RN - 10/05/2017 3:09 AM CDT Pt slept well, no change in status or distress noted this far, pt denies pain upon assessment, cream applied as per protocol and contact precautions followed, pt uses call light appropriately, pt resting in bed at this time. * Kasey Cruz RN - 10/04/2017 6:33 PM CDT Pt denies pain, sat by window watching television most of the day. Seems to be in pleasant mood today. No major shift changes to report. * Bettina Milner RN - 10/04/2017 5:57 AM CDT Pt slept well denies pain upon assessment, no change in status or distress noted this far, cream applied to skin as per protocol. Pt sleeping at this time * Bettina Milner RN - 10/03/2017 10:23 PM CDT Pt HS blood sugar 88 pt given a snack * Bettina Milner RN - 10/03/2017 4:02 AM CDT Pt slept well denies pain upon assessment, no change in status or distress noted this far, pt remains on contact isolation, pt uses call light appropriately. * Emmie Logan RN - 10/02/2017 7:38 PM CDT Pt status unchanged since assessment * Anitha Negron RN - 10/02/2017 6:12 AM CDT Pt had restful night. No reports of pain/discomfort. VSS. Safety maintained. Call light in reach. * Kasey Cruz RN - 10/01/2017 6:00 PM CDT Pt has ringworms all over her body, not just her right and left hands. Has them on her legs and feet as well. Spoke to Dr. Reed, says Lotrimin treatment needs to be applied all over her body. No other major changes to report. * Yudelka Urrutia RN - 10/01/2017 3:41 AM CDT Slept well during the night. Physician ordered sleep hygiene is in effect for this patient. No change in condition noted. Contact plus isolation for ringworm infections currently being treated. Bed low, locked, and bed alarm on. Call light and bedside table in reach. Patient is pleasant and cooperative with care. * Kasey Cruz RN - 09/30/2017 6:37 PM CDT No major shift changes to report. Continuing to monitor pt. * Yudelka Urrutia RN - 09/30/2017 6:36 AM CDT Slept well. No change in condition noted. Pleasant and cooperative with care. * Bettina Milner RN - 09/28/2017 6:41 AM CDT Pt slept well denies pain upon assessment, pt educated about taking a laxative due to last BM documented 09/24/17, pt refused and voiced does not want med at this time. * Pati Dean LPN - 09/27/2017 4:59 PM CDT Has denied any pain today, LBM 09/24, patient refused laxative, up in w/c now, call light in reach Cosigned by Azul Wilson RN at 09/27/2017 6:41 PM CDT * Pati Dean LPN - 09/26/2017 5:42 PM CDT Has denied any pain today, up in w/c now, call light in reach, chair alarm on Cosigned by Shiva Romero RN at 09/26/2017 6:54 PM CDT * Clara Romero RN - 09/26/2017 4:18 AM CDT Patient had a restful night, denies pain, no s/s of distress noted. Assessment as charted, call light within reach. * Anitha Negron RN - 09/23/2017 6:26 AM CDT Pt had restful night. No reports of pain/discomfort. VSS. Safety maintained. Call light in reach. * Anitha Negron RN - 09/22/2017 6:04 AM CDT Pt had restful night. No reports of pain/discomfort. VSS. Safety maintained. Call light in reach. * Pati Dean LPN - 09/21/2017 6:04 PM CDT Attended therapy today, has denied any pain today, has rash on buttocks, Dr Reed was notified Cosigned by Shiva Romero RN at 09/21/2017 6:09 PM CDT * Bettina Milner RN - 09/21/2017 5:38 AM CDT Pt slept well no change in status or distress noted though tout the night, marybel a.m labs this far, pt denies pain upon assessment, contact precautions maintained, pt uses call light appropriately. * Bettina Milner RN - 09/20/2017 6:36 AM CDT Pt slept well denies pain upon assessment, cream applied to azeem arms, pt call light within reach, pt up in the chair at this time * Pati Dean LPN - 09/18/2017 5:30 PM CDT Attended therapy today, has denied any pain today, up in chair now, call light in reach Cosigned by Shiva Romero RN at 09/18/2017 6:25 PM CDT * Berta Youngblood RN - 09/17/2017 5:31 PM CDT Patient remain on contact isolation for ring worms.Patient incont of bladder today. Patient denies pain or discomfort. At this time in room with family. Will continue to monitor. * Migdalia Solano RN - 09/17/2017 4:34 AM CDT Appears to be resting well this noc. Denies pain. Bed alarm on & call baldwin at side. Incont X 1 . Cont to monitor * Kasey Cruz RN - 09/16/2017 6:30 PM CDT Patient skin lesions confirmed contagious. Placed on contact precautions for ringworms. Not other changes to report. * Yudelka Urrutia RN - 09/16/2017 4:16 AM CDT Slept well during this shift. No change in condition noted. Bed low, locked, with 3 siderails up and bed alarm on. Call light and bedside table in reach. Pleasant and cooperative with care. * Yudelka Urrutia RN - 09/15/2017 7:30 PM CDT 57 yo wf admitted to [facility] via [facility]. Awake and alert, No complaints of pain at this time. Admission nurse here to do admmission assessment. documented in this encounter Miscellaneous Notes * Plan of Care - Rona Cruz RN - 10/10/2017 10:55 AM CDT Bowel Incontinence ??? Perineal Skin Integrity is Maintained or Improved Adequate for Discharge Discharge Planning ??? Discharge to home or other facility with appropriate resources Adequate for Discharge ??? mud analysis operator will develop a plan to decrease their burden and enhance comfort in role Adequate for Discharge Fall Safety ??? Free from fall injury Adequate for Discharge Infection ??? Absence of infection and prevention of transmission during hospitalization Adequate for Discharge Knowledge Deficit ??? Patient and/or family demonstrate readiness to learn Adequate for Discharge ??? Patient and/or family verbalizes understanding of education, and/or performs desired skill Adequate for Discharge Knowledge Deficit ??? Patient/family/caregiver demonstrates understanding of disease process, treatment plan, medications, and discharge instructions Adequate for Discharge Potential for Compromised Skin Integrity ??? Skin integrity is maintained or improved Adequate for Discharge ??? Nutritional status is improving Adequate for Discharge Urinary Incontinence ??? Perineal skin integrity is maintained or improved Adequate for Discharge * Plan of Care - Amy Juarez RN - 10/09/2017 8:43 PM CDT Bowel Incontinence ??? Perineal Skin Integrity is Maintained or Improved Progressing Discharge Planning ??? Discharge to home or other facility with appropriate resources Progressing ??? 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 Free from fall injury Progressing Infection ??? Absence of infection and prevention of transmission during hospitalization Progressing Knowledge Deficit ??? Patient and/or family demonstrate readiness to learn Progressing ??? Patient and/or family verbalizes understanding of education, and/or performs desired skill Progressing Knowledge Deficit ??? Patient/family/caregiver demonstrates understanding of disease process, treatment plan, medications, and discharge instructions Progressing Potential for Compromised Skin Integrity ??? Skin integrity is maintained or improved Progressing ??? Nutritional status is improving Progressing Urinary Incontinence ??? Perineal skin integrity is maintained or improved Progressing * [employer] Discharge Summary - Inge Kenter - 10/09/2017 4:00 PM CDT SpeechTherapy Discharge Summary: Care Home Goals: Expression: Expression Care Home Goals Expression Goals - Curb Supervisor: Curb Supervisor 1 Expression Care Home Goal 1: participate in basic conversation with supervisory fior for use of speech intelligibility strategies and expression of thoughts/ideas. Expression Care Home Goal 1 Status: Achieved Expected Achievement Date: 09/30/17 Additional Cognition: Additional Cognition Care Home Goals Additional Cognition Goals - Care Home: Care Home 1 Additional Cognition Care Home Goal 1: participate in daily routines with minimal cues for basic memory and reasoning tasks to safely complete ADLs. Additional Cognition Care Home Goal 1 Status: Achieved Expected Achievement Date: 09/30/17 Swallowing: Swallowing Curb Supervisor Goals Swallowing Goals - Care Home: Curb Supervisor 1 Swallowing Care Home Goal 1: tolerate the least restrictive diet with less than 10% s/s of aspiration for safe and adequate consumption of daily meals. Swallowing Curb Supervisor Goal 1 Status: Achieved Expected Achievement Date: 09/30/17 Short Term Goals: Expression: Expression Short Term Goals Expression Goals - Short Term: Short Term 1 Expression Short Term Goal 1: utilize speech intelligibility strategies at the conversational levelat 100% intelligibility with supervisory assist. Expression Short Term Goal 1 Status: Achieved Expected Achievement Date: 10/02/17 Problem Solving: Problem Solving Short Term Goals Problem Solving Goals - Short Term: Short Term 2 Problem Solving Short Term Goal 1: complete functional problem solving/reasoning tasks at 80% accuracy with min cues. Problem Solving Short Term Goal 1 Status: Achieved Problem Solving Short Term Goal 2: complete functional problem solving/reasoning tasks at 80% accuracy with occasional cues Problem Solving Short Term Goal 2 Status: Partially Achieved Expected Achievement Date: 10/09/17 Memory: Memory Short Term Goals Memory Goals - Short Term: Short Term 1 Memory Short Term Goal 1: complete short term memory tasks at 80% with minimal cues. (Goal met for basic short-term recall; progressing to more complex tasks.) Memory Short Term Goal 1 Status: Partially Achieved Expected Achievement Date: 10/09/17 Additional Cognition: Additional Cognition Short Term Goals Additional Cognition Goals - Short Term: Short Term 1, Short Term 2 Additional Cognition Short Term Goal 1: complete thought organization tasks at 80% with minimal cues. Additional Cognition Short Term Goal 1 Status: Partially Achieved Additional Cognition Short Term Goal 2: participate in CLQT, as appropriate. Additional Cognition Short Term Goal 2 Status: Achieved Expected Achievement Date: 10/09/17 Swallowing: Swallowing Short Term Goals Swallowing Goals - Short Term: Short Term 1 Swallowing Short Term Goal 1: tolerate regular solids and thin liquids with less than 10% s/s of aspiration and independent use of swallowing strategies. Swallowing Short Term Goal 1 Status: Achieved Expected Achievement Date: 10/02/17 Facilitating Factors/Barriers: Facilitating Factors in Goal Achievement: Patient compliance, Patient motivation, Improvement in cognitive skills, Improvement in communication skills, Ability to use compensatory strategies, Progress to date, Support of other(s) Barriers: Other (comment) (complex cognition and reasoning) Date Last Assessed: 10/09/17 Functional Status at Discharge: 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 Long's current functional status is as follows: DIET: Regular and Thin liquids. SWALLOWING STRATEGIES: Upright 90 degrees, small bites/sips, slow rate, monitorright cheek for pocketing and alternation of solids/liquids. COMPREHENSION: Modified independence for basic comprehension. WFL for basic conversation with mild difficulty with complex conversation. EXPRESSION: Modified independence for verbal expression. WFL for basic conversation with mild difficulty with complex conversation. SOCIAL: WFL. Mrs. Long acts appropriately with staff and family members. REASONING: Supervisory assist for basic reasoning tasks. WFL for basic reasoning with increased amount of assist for complex reasoning. MEMORY: Supervisory assist for basic memory tasks. WFL for basic memory tasks requires increased amount of assist for complex and during unfamiliar circumstances. PROGRESS: Mrs. Long has demonstrated progress through improved score on the Cognitive Linguistic Quick Test (CLQT) from 2.0/4.0 (moderate severity) to 3.4/4.0 (mild severity). Mrs. Longdemonstrated progress over her length of stay with upgraded diet, increased intelligibility, and increased accuracy with short-term recall, thought organization, and functional problem solving tasks.Progress also noted for basic sequencing and reasoning. Mrs. Long would benefit from further ST at the next level of care which could include: cognitive retraining involving sequencing, reasoning, thought organization, and memory. Last Filed FIM Scores: Communication/ Cognition FIM - Comprehension : 6: Mod I - Patient understands readily or with only mild difficulty complex or abstract directions and conversations. Patient does not require prompting, though may require a hearing/visual aid, assistive device, or extra time to understand information. FIM - Primary Mode of Comprehension: Auditory FIM - Expression : 6: Mod I - In most situations, the patient expresses complex or abstract ideas relatively clear or with only mild difficulty. The patient does not need any prompting, but (s)he mayrequire an augmentative communication device or system. FIM - Primary Mode of Expression: Verbal FIM - Social Interaction : 7: Comp Ind - Patient interacts appropriately with staff, other patients, and family members (e.g., controls temper, accepts criticism, is aware that words and actions havean impact on others), and does not require medication for control. FIM - Problem Solvin: Supervision- The patient requires supervision (e.g., cueing, or coaxing) to solve less routine problems only under stressful or unfamiliar conditions, but no more than 10% of the time. FIM - Memory: 5: Supervision- The patient requires prompting (e.g., cueing, repetition, reminders) only under stressful or unfamiliar conditions, but not more than 10% of the time INGE VEGA Cosigned by ST Uyen at 10/09/2017 4:02 PM CDT * PT Discharge Summary - Bertha Dawn, PT - 10/09/2017 3:44 PM CDT Physical Therapy Discharge Summary: Care Home Goals: Transfers: Transfer Goals - Curb Supervisor Transfer Goals - Curb Supervisor: intermodal customer service 1, intermodal customer service 2 Transfer Care Home Goal 1: sit to stand with modified independence Transfer Curb Supervisor Goal 1 Status: Achieved Transfer Curb Supervisor Goal 2: stand pviot with modified idnependence Transfer Curb Supervisor Goal 2 Status: Achieved Expected Achievement Date: 10/15/17 Bed/Mat Mobility: Bed/Mat Mobility Goals - Curb Supervisor Bed/Mat Mobility Goals - Curb Supervisor: Curb Supervisor 1 Bed/Mat Mobility Curb Supervisor Goal 1: supine to and from sit with independence Bed/Mat Mobility Care Home Goal 1 Status: Achieved Expected Achievement Date: 10/07/17 Gait: Gait Goals - Care Home Gait Goals - Care Home: Care Home Goal 1 Gait Care Home Goal 1: Ambulate 150 feet with least restrictive assistive device and modified independence Gait Curb Supervisor Goal 1 Status: Achieved Expected Achievement Date: 10/07/17 Elevation: Elevation Goals - Curb Supervisor Elevation Goals - Care Home: Curb Supervisor 1, Care Home 2 Elevation Curb Supervisor Goal 1: ascend/descend 1 curb step with modified independence Elevation Curb Supervisor Goal Status: Achieved Elevation Care Home Goal 2: sacend/descend 4 steps with rail and supervision Elevation Care Home Goal 2 Status: Achieved Expected Achievement Date: 10/07/17 Wheelchair Management and Propulsion: Wheelchair Management and Propulsion Goals - Care Home Wheelchair Management and Propulsion Goals - Care Home: Care Home 1 Wheelchair Management and Propulsion Care Home Goal 1: Propel manual wheelchair 150 feet with supervision Wheelchair Management and Propulsion Curb Supervisor Goal 1 Status: Achieved Expected Achievement Date: 09/22/17 Other: Other PT Care Home Goals Other Goals - Curb Supervisor: Care Home 1 Other Curb Supervisor Goal 1: PASS to be completed Other Care Home Goal 1 Status: Discontinued Expected Achievement Date: 10/07/17 Short Term Goals: Transfers: Transfer Goals - Short Term Transfer Goals - Short Term: Short Term 3 Transfer Short Term Goal 1: sit to stand with contact guard assistance Transfer Short Term Goal 1 Status: Achieved Transfer Short Term Goal 2: stand pivot with contact guard assistance Transfer Short Term Goal 2 Status: Achieved Transfer Short Term Goal 3: sit to stand and stand pivot with modified indpeendence with front wheeeld walker Transfer Short Term Goal 3 Status: Achieved Transfer Short Term Goal 4: sit to stand and stand pivot with modified indpeendence with single point cane Transfer Short Term Goal 4 Status: Established Expected Achievement Date: 10/11/17 Bed/Mat Mobility: Bed/Mat Mobility Goals - Short Term Bed/Mat Mobility Goals - Short Term: Short Term 2 Bed/Mat Mobility Short Term Goal 1: supine to and from sit with supervision Bed/Mat Mobility Short Term Goal 1 Status: Achieved Bed/Mat Mobility Short Term Goal 2: supine to and from sit with independence Bed/Mat Mobility Short Term Goal 2 Status: Achieved Expected Achievement Date: 10/11/17 Gait: Gait Goals - Short Term Gait Goals - Short Term: Short Term Goal 1 Gait Short Term Goal 1: Ambulate 100 feet with front wheeled walker with splint and contact guard assistance. Gait Short Term Goal 1 Status: Achieved Gait Short Term Goal 2: Ambulate 150 feet with front wheeled walker with modified independence Gait Short Term Goal 2 Status: Partially Achieved Expected Achievement Date: 10/11/17 Elevation: Elevation Goals - Short Term Elevation Goals - Short Term: Short Term 3 Elevation Short Term Goal 1: ascend/descend curb step with front wheeeld walker and minimal assistance Elevation Short Term Goal 1 Status: Achieved Elevation Short Term Goal 2: ascend/descedn 4 4 inch steps with one rail and contact guard assistance Elevation Short Term Goal 2 Status: Partially Achieved Elevation Short Term Goal 3: asc/desc 6 inch curb step with modified independence and approrpiate assistive devcie Elevation Short Term Goal 3 Status: Established Expected Achievement Date: 10/11/17 Wheelchair Management and Propulsion: Wheelchair Management and Propulsion Goals - Short Term Wheelchair Management and Propulsion Goals - Short Term: Short Term 1 Wheelchair Management and Propulsion Short Term Goal 1: Propel manaul wheelchair 150 feet modified independent Wheelchair Management and Propulsion Short Term Goal 1 Status: Achieved Expected Achievement Date: 09/22/17 Facilitating Factors/Barriers: Facilitating Factors in Goal Achievement: Patient understanding and knowledge, Patient compliance, Patient motivation, Use of compensatory strategies, Improved safety awareness, Improved functional mobility, Improved strength, Improved ROM Barriers: Balance deficits, Strength limitations Date Last Assessed: 10/09/17 Functional Status at Discharge: PT Overall Functional Status: Ms. Long is currently: TRANSFERS: sit to stand with modified independence, stand pivot with modified indpednence with fornt wheeled walker, independent in transfers with single point cane GAIT: Ambulates 200 feet with front wheeled walker and modified independence;200 feet with single point cane and close supervision ELEVATIONS: ascends/descends 12 6 inch steps with rail and distant supervision, ascends/descends 2 inch and [address] with fww with supervision; ascneds/desececnds [address] with single point cane and close supervision. WHEELCHAIR: PRopels manaual wheelchair 150 feet with modified independence. Car transfer with modified independencec iwth fornt wheeled walker. MCDONALD 49/56 indicating low risk for falls. She has made progress as noted aboveand she would benefit from continued skilled PT per POC in outpatient settting to maximize safety,functional abiltiies, and independence. Family attended family training and denied any furher questions at this time. family will be avaiable to assist at home as needed. reocmmend front wheeld walker for mobility at this time, pt abramdc has isngle point cane. Last Filed FIM Scores: FIM-Locomotion FIM - Primary Mode of Locomotion: Walk FIM - Walk: 6: Mod I - The patient walks a minimum of 150ft. (50m), but uses a brace (orthosis) or prosthesis, adaptive shoes, cane, crutches, or walkerette, or takes more than a reasonable amount oftime to complete activity or there are safety considerations. FIM - Distance Walked: 150 or greater FIM - Wheelchair: 6: Mod I - The patient operates a manual or motorized wheelchair independently for a minimum of 150ft. (50m), turns around, maneuvers the chair to a table, bed, toilet, negotiates at least 3% grade, and maneuvers on rugs and over door wen. FIM - Distance Traveled in Wheelchair: 150 or greater FIM - Stairs: 5: Supervision - The patient requires supervision (e.g., standing by, cueing, or coaxing) to go up and down one flight of stairs. FIM - Number of Steps: 12 or greater Patient needs assistance with the following activities: (high level balance) Will patient require a prosthetic or orthotic device upon discharge: No (Retired) DME Recommendations (Retired) OT & PT DME Recommendations: (tbd) Bertha Dawn, PT 10/09/2017, 3:44 PM * PT Treatment Note - Bertha Dawn, PT - 10/09/2017 3:34 PM CDT 10/09/17 0827 Pain Assessment Pain Context Therapy Assessment Prior to Treatment Pain Assessment NRS 0-10 Pain Score 0 - No pain Transfer 1 Transfer to 1 Stand Transfer From 1 Sit Technique 1 Sit to stand Transfer Level of Assistance 1 Modified Independent Trials/Comments 1 to fww Transfers 2 Transfer to 2 Sit Transfer From 2 Stand Technique 2 Stand to sit Transfer Level of Assistance 2 Modified Independent Trials/Comments 2 from fww Transfers 3 Transfer to 3 Wheelchair Transfer From 3 Bed Technique 3 Ambulatory Transfer Level of Assistance 3 Modified Independent Trials/Comments 3 with fww Transfers 4 Transfer to 4 Car Transfer From 4 Stand Technique 4 Ambulatory Transfer Level of Assistance 4 Modified Independent Trials/Comments 4 with fww Ambulation Surface Even surface;Indoor Assistive Device RW Ambulation Level of Assistance Modified Independent Distance (feet) 300 ft Gait Analysis ambulates 300 feet with fww and modified independence Stairs Rails Right;Left (r asc/l desc) Assistive Device Single point cane Stairs Level of Assistance Distant Supervision Number of Steps 12 Stairs Height of Step 6-inch Stairs Analysis asc/desc 12 6 inch steps with cane and rail and distant supervision with one rail Curb Assistive device Cane Curb Level of Assistance Close Supervision Curb Height 6 inch Curb Comment asc/desc 3 6 inch curbs with single point cane and close supervision Activity tolerance Activity Type Standing Activity Endurance Good Activity Comment uses fww Therapeutic Activities and Neuromuscular Re-education Therapeutic Activities and Neuromuscular Re-education pt demonstrates independence with previously issues home exericse program, has written hand outs. she denies any questions or other needs. sheis able ot verbalize safety, fall prevention and was instructed in when to have assistance at home. recomend use of fww upon discharge. Outcomes PT Treatment Outcomes: Safety device reapplied;Patient tolerated treatment well;Patient is progressing toward STG;Goals met for this session PT Summary: pt aware of recommendatiosn for discharge home, home safety, fall prevention. family completed family tarining prior todischarge PT Summary Plan of Care (pt discharging home tomorrow) Individual (PT) Time In 0815 Time Out 0900 Total Time with Patient (Min) 45 min Missed Minutes Missed Minutes 0 Bertha Dawn, PT 10/09/2017, 3:34 PM * OT Discharge Summary - Shanae Chambers OT - 10/09/2017 3:10 PM CDT Occupational Therapy Discharge Summary: Curb Supervisor Goals: Eating: Eating Curb Supervisor Goals Eating Goals - Curb Supervisor: Care Home Goal 1 Eating Care Home Goal 1: with modified independence and dentures Eating Care Home Goal 1 Status: Achieved Expected Achievement Date: 10/14/17 Grooming: Grooming Curb Supervisor Goals Grooming Goals - Care Home: Grooming Care Home 1 Grooming Curb Supervisor Goal 1: with modified independence using hemitechnique Grooming Care Home Goal 1 Status: Achieved Expected Achievement Date: 10/14/17 Bathing: Bathing Curb Supervisor Goals Bathing Goals - Care Home: Bathing Curb Supervisor 1 Bathing Curb Supervisor Goal 1: with stand by assistance using grab bars Bathing Care Home Goal 1 Status: Achieved Expected Achievement Date: 10/14/17 Upper Body Dressing: Upper Body Dressing Curb Supervisor Goals Upper Body Dressing Goals - Care Home: Care Home Goal 1 UE Dressing Curb Supervisor Goal 1: with modified independence using hemitechnique UE Dressing Care Home Goal 1 Status: Achieved Expected Achievement Date: 10/14/17 Lower Body Dressing: Lower Body Dressing Care Home Goals Lower Body Dressing Goals - Care Home: Curb Supervisor Goal 1 LE Dressing Care Home Goal 1: with modified independence using hemitechnique LE Dressing Curb Supervisor Goal 1 Status: Achieved Expected Achievement Date: 10/14/17 Toileting: Toileting Curb Supervisor Goals Toileting Goals - Care Home: Curb Supervisor Goal 1 Toileting Curb Supervisor Goal 1: with modified independence using grab bars Toileting Care Home Goal 1 Status: Established Expected Achievement Date: 10/14/17 Transfer: Transfer Care Home Goals Transfer Care Home Goal 1: BED/CHAIR: with modified independence using least restrictive device Transfer Care Home Goal 1 Status: Achieved Transfer Curb Supervisor Goal 2: TOILET: with modified independence using grab bars Transfer Care Home Goal 2 Status: Achieved Transfer Curb Supervisor Goal 3: TUB/SHOWER: with stand by assistnace using grab bars Transfer Curb Supervisor Goal 3 Status: Achieved Expected Achievement Date: 10/14/17 Short Term Goals: Eating: Eating Short Term Goals Eating Goals - Short Term: Short Term Goal 1 Eating Short Term Goal 1: with modified independence Eating Short Term Goal 1 Status: Achieved Expected Achievement Date: 09/28/17 Grooming: Grooming Short Term Goals Grooming Goals - Short Term: Short Term Goal 1 Grooming Short Term Goal 1: with setup seated Grooming Short Term Goal 1 Status: Achieved Grooming Short Term Goal 2: with modified independence standing at sink Grooming Short Term Goal 2 Status: Not Achieved Expected Achievement Date: 10/12/17 Bathing: Bathing Short Term Goals Bathing Goals - Short Term: Bathing Short Term 1, Bathing Short Term 2, Bathing Short Term 3 Bathing Short Term Goal 1: with contact guard assistance using grab bars and shower chair Bathing Short Term Goal 1 Status: Achieved Bathing Short Term Goall 2: with stand by assistance using grab bars and shower chair Bathing Short Term Goal 2 Status: Achieved Bathing Short Term Goal 3: with distant supervision using grab bars and shower chair Bathing Short Term Goal 3 Status: Not Achieved Expected Achievement Date: 10/12/17 Upper Body Dressing: Upper Body Dressing Short Term Goals Upper Body Dressing Goals - Short Term: Short Term Goal 1, Short Term Goal 2 UE Dressing Short Term Goal 1: with setup and cues UE Dressing Short Term Goal 1 Status: Achieved UE Dressing short term goal 2: with modified independence UE Dressing Short Term Goal 2 Status: Not Achieved Expected Achievement Date: 10/12/17 Lower Body Dressing: Lower Body Dressing Short Term Goals Lower Body Dressing Goals - Short Term: Short Term Goal 1, Short Term Goal 2, Short Term Goal 3 LE Dressing Short Term Goal 1: with minimal assistance using hemitechnique LE Dressing Short Term Goal 1 Status: Achieved LE Dressing short term goal 2: with contact guard assistance using hemitechnique LE Dressing Short Term Goal 2 Status: Achieved LE Dressing Short Term Goal 3: with modified independence using ww LE Dressing Short Term Goal 3 Status: Not Achieved Expected Achievement Date: 10/12/17 Toileting: Toileting Short Term Goals Toileting Goals - Short Term: Short Term Goal 1, Short Term Goal 2, Short Term Goal 3, Short Term Goal 4 Toileting Short Term Goal 1: with maximal assistance using grab bars Toileting Short Term Goal 1 Status: Achieved Toileting Short Term Goal 2: with moderate assistance using grab bars Toileting Short Term Goal 2 Status: Achieved Toileting Short Term Goal 3: with modified independence using grab bars Toileting Short Term Goal 3 Status: Achieved Toileting Short Term Goal 4: with independence Toileting Short Term Goal 4 Status: Established Expected Achievement Date: 10/12/17 Transfer: Transfer Short Term Goals Transfer Goals-Short Term: Short Term 1, Short Term 2, Short Term 3 Transfer Short Term Goal 1: BED/CHAIR: with modified independence using wheeled walker Transfer Short Term Goal1 Status: Not Achieved Transfer Short Term Goal 2: TOILET: with modified independence using grab bars Transfer Short Term Goal 2 Status: Not Achieved Transfer Short Term Goal 3: TUB/SHOWER: with modified independence using grab bars Transfer Short Term Goal 3 Status: Not Achieved Expected Achievement Date: 10/12/17 Facilitating Factors/Barriers: Facilitating Factors in Goal Achievement: Patient understanding and knowledge, Patient compliance, Patient motivation, Use of compensatory strategies, Improved functional mobility, Improved strength Barriers: Strength limitations, Balance deficits, Motor control deficits, Cognitive deficits Date Last Assessed: 10/09/17 Functional Status at Discharge: OT Overall Functional Status: Ms Long and family have been educated on recommendation for supervision with initial bathing and tub transfer upon discharge home to ensure her safety. They have also been educated on recommendation to receive assistance with medication management, financial analyst, meal preparation, and housework at discharge. Education and handouts have been provided on recommended DME . She will benefit from further intensive out patient skilled occupational therapy to improve independence and safety at home and in community in order to return to prior level of function and participate in meaningful occupation as well as addressing high level balance, cognitive deficits and R UE strength and coordination. They verbalize and demonstrate understanding with all of these education topics. Last Filed FIM Scores: FIM-Self Care FIM - Eatin: Mod I - Performs activity with safety considerations, or pt. requires adaptive or assistive device, requires more than reasonable amount of time to eat, or requires modified food consistency, then self-administers the feedings. (use of dentures copmleting 3/3 aspects of task) FIM - Groomin: Comp Ind -The patient cleans teeth or dentures, rodrigues or brushes hair, washes the hands, washes the face, and either shaves the face or applies make-up, including all preparations.The patient performs this activity safely. (no deficits completing 4/4 aspects o task) FIM - Bathin: Mod I - The patient requires specialized equipment (including prosthesis or orthosis) to bathe, or takes more than a reasonable time, or there are safety considerations. (use of shower chair and grab bars completing 10/10 aspects) FIM - Dressing Upper Body: 7: Comp Ind - Dresses/undresses safely. Obtains clothes from customary place, manages bra, pullover garment, front-opening garment, zippers/buttons/snaps. Application/removal of prosthesis/orthosis (not used as device for dressing). (no deficits completing 15/15 aspects of task) FIM - Dressing Lower Body: 7: Comp Ind-Dresses/undresses safely. Obtains clothes from customary place, manages underpants, slacks, skirt, belt, stockings, shoes, zippers/buttons/snaps. Application/removal of prosthesis/orthosis (not used as device for dressing). (no deficits completing 20/20 aspects) FIM - Toiletin: Comp Ind - The patient safely cleanses self after voiding and bowel movements, and safely adjusts clothing before and after using toilet, bedpan, commode or urinal. (no deficits completing 3/3 aspects) FIM-Transfers FIM - Bed, Chair, Wheelchair Transfer: 6: Mod I - Requires adaptive/assistive device, or activity takes more than a reasonable amount of time, or there are safety considerations. A prosthesis or orthosis is considered an assistive device if used for transfer. FIM - Toilet Transfer: 6: Mod I - Requires adaptive/assistive device, or activity takes more than areasonable amount of time, or there are safety considerations. A prosthesis or orthosis is considered an assistive device if used for transfer. FIM - Shower Transfer : 6: Mod I - Patient requires adaptive/assistive device (including prosthesis/orthosis) such as a sliding board, lift, grab bars, or special seat, or takes more than a reasonable amount of time to complete the activity, or there are safety considerations. FIM-Functional Communication FIM - Comprehension : 6: Mod I - Patient understands readily or with only mild difficulty complex or abstract directions and conversations. Patient does not require prompting, though may require a hearing/visual aid, assistive device, or extra time to understand information. FIM - Primary Mode of Comprehension: Auditory FIM - Expression : 6: Mod I - In most situations, the patient expresses complex or abstract ideas relatively clear or with only mild difficulty. The patient does not need any prompting, but (s)he mayrequire an augmentative communication device or system. FIM - Primary Mode of Expression: Verbal FIM - Social Interaction : 7: Comp Ind - Patient interacts appropriately with staff, other patients, and family members (e.g., controls temper, accepts criticism, is aware that words and actions havean impact on others), and does not require medication for control. FIM - Problem Solvin: Supervision- The patient requires supervision (e.g., cueing, or coaxing) to solve less routine problems only under stressful or unfamiliar conditions, but no more than 10% of the time. Problem Solving comments: Pt continues to demonsrate deficits with complex cognitive skills but good reasoning with basic cognition to assemble complex puzzle following visual reference. She requirescues for strategy to break down tasks to make it more simple/basic and she reuqires increased time to manipulate small peices to push them together with cues for orientation of puzzle for greatest success FIM - Memory: 5: Supervision- The patient requires prompting (e.g., cueing, repetition, reminders) only under stressful or unfamiliar conditions, but not more than 10% of the time Memory comments: Pt reports memory feeling same as prior to admissoin. She requires min cues and iseducated on memory strategies during memory card matching task while standing Weight bearing status: Full - No restrictions throughout (Retired) DME Recommendations (Retired) OT & PT DME Recommendations: (Needs will be assessed as pt progresses) SHANAE CHAMBERS OT 10/09/2017 3:11 PM * OT Treatment Note - Shanae Chambers OT - 10/09/2017 1:00 PM CDT 10/09/17 1300 Pain Assessment Pain Context Therapy Assessment Prior to Treatment Pain Assessment NRS 0-10 Pain Assessment NRS 0-10 Pain Score 0 - No pain Coordination Training Coordination Training Narrative Pt completes R UE FMC training completing peg design replicatoin task within 16 minutes to pinch and obtain and place pegs and place into board. She demos poor in handmanipulation and complex motor movements but good motivation with task. Pt will benefit from continued R UE FMC training to improve functional use in self care Cognitive Skills Training Cognitive Skills Training Problem solving skill training;Training on executive function Problem Solving comments Pt continues to demonsrate deficits with complex cognitive skills but goodreasoning with basic cognition to assemble complex puzzle following visual reference. She requires cues for strategy to break down tasks to make it more simple/basic and she reuqires increased time to manipulate small peices to push them together with cues for orientation of puzzle for greatest success Other Interventions Narrative: Pt completes functional moblity to and from therapy gym propelling self in wc with BLEs with modified independence navigating environmental obstacles well Treatment, Outcomes, and Plan OT Narrative: Pt demos good progress with basic-moderate level reasoning, R UE FMC and strength. Please see discharge summary for further details OT Treatment Outcomes: Patient tolerated treatment well;Patient is progressing toward STG(s) OT Summary Plan of Care Continue with current plan of care Individual (OT) Time In 1300 Time Out 1345 Breaks/Pauses (Min) 0 mins Total Time with Patient (Min) 45 min Missed Minutes Missed Minutes 0 SHANAE CHAMBERS OT 10/09/2017 3:04 PM * [employer] Treatment Note - Inge Vega - 10/09/2017 12:33 PM CDT 10/09/17 0900 Patient Subjective Report Patient Subjective Report Pt seen alert and in chair; agreeable to treatment. Pain Assessment Pain Context Therapy Assessment Prior to Treatment Pain Assessment None/denies pain Daily Treatment Cognitive Communication Short-term memory;Basic attention;Semi-complex to complex attention;Recall of biographical information;Orientation;Word finding;Verbal organization;Organization;Speed of processing;Compensatory techniques for cognition Patient/Caregiver Training Discussed;Participated;Verbalized understanding Treatment Outcome and Plan of Care ST Narrative: Administered the Cognitive Linguistic Quick Test (CLQT) to compare to initial results, resulting in score of 3.4/4.0, indicating mild impairments. Pt demonstrated progress in all areas of assessment. For detailed results see CLQT flowsheets below. Results discussed with pt, who verbalized understanding. ST Session Outcomes Tolerated treatment well;Progressing toward STGs;Patient/family education progressing;Qualitative gains in function;Imrpovement in cognition ST Summary Plan of Care Continue with current plan of care Individual (ST) Time In 0900 Time Out 0945 Total Time with Patient (Min) 45 min Missed Minutes Missed Minutes 0 09/17/17 0900 Cognitive Linguistic Quick Test (CLQT) CLQT Administration Administered in entirety CLQT Tasks Personal Facts 8 Symbol Cancellation 11 Confrontation Naming 10 Clock Drawing 10 (use of non dominant hand) Story Retelling/Auditory Comprehension 3 Symbol Trails 4 Generative Naming 3 Design Memory 3 Mazes 4 Design Generation 1 CLQT Cognitive Domain Severity Ratings Attention Mild Memory Severe Executive Function Severe Language Moderate Visuospatial Skills Mild Composite Severity Rating Moderate (2.0) Clock Drawing Severity Rating Mild 10/09/17 0900 Cognitive Linguistic Quick Test (CLQT) CLQT Administration Administered in entirety CLQT Tasks Personal Facts 8 Symbol Cancellation 12 Confrontation Naming 10 Clock Drawing 13 Story Retelling/Auditory Comprehension 4 Symbol Trails 7 Generative Naming 3 Design Memory 6 Mazes 8 Design Generation 2 CLQT Cognitive Domain Severity Ratings Attention WNL Memory Mild Executive Function Mild Language Mild Visuospatial Skills WNL Composite Severity Rating Mild Clock Drawing Severity Rating WNL INGE VEGA Cosigned by ST Uyen at 10/09/2017 12:36 PM CDT * OT Treatment Note - Shanae Chambers OT - 10/09/2017 11:15 AM CDT 10/09/17 1115 Pain Assessment Pain Context Therapy Assessment Prior to Treatment Pain Assessment NRS 0-10 Pain Assessment NRS 0-10 Pain Score 0 - No pain Grooming Grooming Independent Grooming Where Assessed Standing at sink Grooming Comments no deficits Bathing Bathing Modified Independent Bathing Where Assessed Seated in shower;Standing in shower Bathing Comments bathing 10/10 body parts using shower chair and grab bars Toileting Toileting Independent Toileting Where Assessed Toilet Toilet Comments no deficits completing 3/3 aspects of task Upper Body Dressing Dressing Upper Body Independent Upper Body Dressing Where Assessed Sitting in chair Upper Body Dressing Comments no deficits complteing 15/15 aspects of task Lower Body Dressing Dressing Lower Body Independent Lower Body Dressing Where Assessed Sitting in chair;Standing Lower Body Dressing Comments no deficits completign 20/20 aspects of task Toilet Transfers Toilet Transfer Modified Independent Toilet Transfer To Standard toilet Toilet Transfer From Stand Toilet Transfer Technique Ambulatory Toilet Transfers Comments using ww Shower Transfers Shower Transfer Modified Independent Shower Transfer to Shower seat with back Shower Transfer From Stand Shower Transfer Technique Ambulatory Shower Transfers Comments use of grab bars and ww Bed, Chair, Wheelchair Transfers Bed, Chair, Wheelchair Transfer Modified Independent Bed/Chair Transfer to Wheelchair Bed/Chair Transfer from Stand Bed/Chair Transfer Technique Sit to stand;Stand to sit Assistive Devices Used Walker Treatment, Outcomes, and Plan OT Narrative: Pt completes dressing, bathing and functional tranfsers well. POC to continue addressing high level balance, R UE function, and safety OT Treatment Outcomes: Safety device reapplied;Patient tolerated treatment well;Patient is progressing toward STG(s) OT Summary Plan of Care Continue with current plan of care Individual (OT) Time In 1115 Time Out 1200 Breaks/Pauses (Min) 0 mins Total Time with Patient (Min) 45 min Missed Minutes Missed Minutes 0 SHANAE CHAMBERS OT 10/09/2017 2:58 PM * Plan of Care - Lisseth Child RN - 10/09/2017 9:23 AM CDT Problem: Case Management Discharge Goals Goal: Identify patient's discharge goals Outcome: Completed Date Met: 10/09/17 Goal: Coordinate Safe Discharge Plan Outcome: Completed Date Met: 10/09/17 Goal: Work with the treatment team to assess caregiver capability Outcome: Completed Date Met: 10/09/17 * PT Treatment Note - Bertha Dawn, PT - 10/08/2017 2:41 PM CDT 10/08/17 0844 Pain Assessment Pain Context Therapy Assessment Prior to Treatment Pain Assessment NRS 0-10 Pain Score 0 - No pain Transfer 1 Transfer to 1 Stand Transfer From 1 Sit Technique 1 Sit to stand Transfer Level of Assistance 1 Modified Independent Trials/Comments 1 fww Transfers 2 Transfer to 2 Sit Transfer From 2 Stand Technique 2 Stand to sit Transfer Level of Assistance 2 Modified Independent Trials/Comments 2 fww Ambulation Surface Even surface;Indoor Assistive Device Cane Ambulation Level of Assistance Close Supervision Distance (feet) 300 ft Gait Analysis ambulates 300 feet with spc and close supervision. gait deviaiotns include dec joseline dec step length Stairs Rails Right;Left (r asc/l desc) Assistive Device No device Stairs Level of Assistance Contact Guard Number of Steps 12 Stairs Height of Step 6-inch Stairs Analysis asc/desc 12 6 inch steps with one rail and contact guard assistnace for safety Curb Curb Comment asc/desc 3 steps with single point cane only and with contact guard asssitance for safety. Wheelchair Management Wheelchair Level of Assistance Modified Independent Distance Traveled in Wheelchair (feet) 200 ft Wheelchair Type Manual Left Brakes Level of Assistance Independent Right Brakes Level of Assistance Independent Wheelchair Propulsion Surface Even surface;Indoor Propulsion Method Bilateral lower extremity Outcomes PT Treatment Outcomes: Patient tolerated treatment well;Patient is progressing toward STG;Goals metfor this session PT Summary: discharging home this weekend PT Summary Plan of Care Continue with current plan of care Individual (PT) Time In 0815 Time Out 0900 Total Time with Patient (Min) 45 min Missed Minutes Missed Minutes 0 * Plan of Care - Berta Youngblood RN - 10/08/2017 1:06 PM CDT Discharge Planning ??? Discharge to home or other facility with appropriate resources Progressing ??? 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 Free from fall injury Progressing Infection ??? Absence of infection and prevention of transmission during hospitalization Progressing Knowledge Deficit ??? Patient and/or family demonstrate readiness to learn Progressing ??? Patient and/or family verbalizes understanding of education, and/or performs desired skill Progressing Knowledge Deficit ??? Patient/family/caregiver demonstrates understanding of disease process, treatment plan, medications, and discharge instructions Progressing Potential for Compromised Skin Integrity ??? Skin integrity is maintained or improved Progressing ??? Nutritional status is improving Progressing Urinary Incontinence ??? Perineal skin integrity is maintained or improved Progressing * [employer] Treatment Note - Inge Vega - 10/08/2017 12:42 PM CDT 10/08/17 1116 Patient Subjective Report Patient Subjective Report Pt seen alert and in chair; agreeable to treatment. Pain Assessment Pain Context Therapy Assessment Prior to Treatment Pain Assessment NRS 0-10 Pain Assessment NRS 0-10 Pain Score 2 Pain Location Arm Daily Treatment Cognitive Communication Short-term memory;Basic attention;Semi-complex to complex attention;Organization;Compensatory techniques for cognition;Planning and sequencing Patient/Caregiver Training Discussed;Participated;Verbalized understanding Treatment Outcome and Plan of Care ST Narrative: Pt independently recalled 3/3 details from a message with after a 10 minute delay. Ptindependently completed sequencing task to address thought organization, reasoning, and planning with 75% accuracy. Pt completed [employer] card game to address thought organization with supervisory assistance. Recommend to continue current plan of care. *Pt left in room with call light and phone within reach. ST Session Outcomes Tolerated treatment fairly;Progressing toward STGs;Patient/family education progressing ST Summary Plan of Care Continue with current plan of care Individual (ST) Time In 1116 Time Out 1201 Total Time with Patient (Min) 45 min Missed Minutes Missed Minutes 0 INGE VEGA Cosigned by ST Uyen at 10/08/2017 12:44 PM CDT * OT Treatment Note - Shanae Chambers OT - 10/08/2017 11:16 AM CDT 10/08/17 0946 Pain Assessment Pain Context Therapy Assessment Prior to Treatment Pain Assessment NRS 0-10 Pain Assessment None/denies pain Pain Score 0 - No pain Bed, Chair, Wheelchair Transfers Bed, Chair, Wheelchair Transfer Modified Independent Bed/Chair Transfer to Wheelchair Bed/Chair Transfer from Stand Bed/Chair Transfer Technique Sit to stand;Stand to sit Assistive Devices Used Walker Standing Tolerance Standing Tolerance Time (mins) 25 min then 10 min Activity static standing during cognitve task then BITs Functional Standing Tolerance Comments no LOB Standing Assist Modified Independent Therapeutic Exercise - Strength Strength Exercise Pt completes BUE strengthening using 6# dowel emphasizing R UE strength and bilateral integration while seated at wc level. She requires cues for proper form and core strength as she fatigues and leans back into chair. She completes 20 reps x 2 sets in planes of shoulder flexion, horizontal abduction, push press for tricep extension, bicep curls and protraction/retraction in punc mike form. She requires cues for form at R UE especially as she fatigues. Task completed to improveR UE functional use in self care skills and force production for transfers. Coordination Training Coordination Training Narrative Pt completes R UE FMC training using blocks to stack in strategic form with increased time while wearing 2# wrist weight then she uses R UE to push blocks from stack to improve accuracy of R UE. She participates in task for 14 min with increased time for in hand manipulation and accuracy in stacking and pushing blocks. Task completed to improve R UE FMC for improved independence with lids and fastners (such as bra) Cognitive Skills Training Problem Solving comments Pt completes complex calendar task emphasizing thought organization and planning. She follows written instructions and each direction has an associated color to fill in calendar with based on its proper category. She demos ability to complete basic instructions (first day of month starts on Thursday and there are 30 days in month) but more complex directions she requires increased time for reasoning and minimal cues for success and cues for though translation and dividedattention to switch colors as needed for proper categorization. She demos improved ability to complete legible handwriting with R UE during task however. She is educated on recommendation to obtain assist for complex planning tasks upon dc and is educated on double checking self to self identify and correct errors as needed. Other Interventions Narrative: Pt completes BITs while standing on user paced task to improve R UE reaction time, visual scanning and accuracy of R UE for improved functional use in daily meaningful occupations. First trial is as follows for one minute: 47%accuracy, 1.69 sec reaction time, 32 hits. Second and third trial as follows for 2 minutes each: 1) 61% accuracy, 2.35 sec reaction time (decreased attention to Rlower quadrant), 51 hits. 2) 56% accuracy, 1.80 sec reaction time, and 66 hits. On last and 4th trial pt participates in divided attention task with central fixator after demonstration with poor divided attention noted but good new learning for success and results are as follows for one minute: 80%accuracy, 2.11 sec reaction time, 28 hits, unattended 1/3 times to central fixator. Treatment, Outcomes, and Plan OT Narrative: Pt renettaos good progress with R UE strength, standing tolerance, and IADL management. POC to continue addressing ADLs, cognitive skills and balance OT Treatment Outcomes: Safety device reapplied;Patient tolerated treatment well;Patient is progressing toward STG(s) OT Summary Plan of Care Continue with current plan of care Individual (OT) Time In 0946 Time Out 1116 Breaks/Pauses (Min) 0 mins Total Time with Patient (Min) 90 min Missed Minutes Missed Minutes 0 SHANAE CHAMBERS OT 10/08/2017 11:16 AM * Plan of Care - Fortino Martinez RN - 10/07/2017 8:00 PM CDT Fall Safety ??? Free from fall injury Progressing Potential for Compromised Skin Integrity ??? Skin integrity is maintained or improved Progressing ??? Nutritional status is improving Progressing * PT Treatment Note - Bertha Dawn, PT - 10/07/2017 2:58 PM CDT 10/07/17 1411 Pain Assessment Pain Context Therapy Assessment Prior to Treatment Pain Assessment NRS 0-10 Pain Score 0 - No pain Bed Mobility Bed Mobility Performed on mat;Short sit to - from supine Bed Mobility Level of Assistance Independent Transfer 1 Transfer to 1 Stand Transfer From 1 Sit Technique 1 Sit to stand Transfer Level of Assistance 1 Modified Independent Trials/Comments 1 to fww Transfers 2 Transfer to 2 Sit Transfer From 2 Stand Technique 2 Stand to sit Transfer Level of Assistance 2 Modified Independent Trials/Comments 2 from fww Transfers 3 Transfer to 3 Floor Transfer From 3 Stand Technique 3 Stand to sit Transfer Level of Assistance 3 Contact Guard Trials/Comments 3 stand to floor with ue use on the mat, quad then sitting position Ambulation Surface Even surface;Indoor Assistive Device RW Ambulation Level of Assistance Modified Independent Distance (feet) 200 ft Gait Analysis ambulates 200 feet x 3 with fww and modified independence. gait deviaitons include dec caddence dec step length, inc trunk felxion. ambulates 100 feet without assistive device with cga for safey and no loss of balance or safety issues noted. Activity tolerance Activity Type Standing Activity Endurance Good Therapeutic Activities and Neuromuscular Re-education Therapeutic Activities and Neuromuscular Re-education completes sidelying exercises to improve RLE and core strength inclduding clams, hip extension to slightly past neutral, hip abd sidelying x 10 reps with rest breaks as needed. supine bridges x 10 reps and tva with hip flexion to improve core strenth and stabilization for carry over into gait. nm re-ed: stnading on blue air ex foam x 30 seconds with nbos with eyes open with cga for safety, eyes closed x 15 seconds with min assist for safety and mini steps on the foam x 5 reps on each side Outcomes PT Treatment Outcomes: Patient tolerated treatment well;Patient is progressing toward STG;Goals metfor this session;Improved safety awareness;Qualitative gains in function;Improved transfer ability noted;Improved ambulation performance;Gait deviations reduced PT Summary: tolerates session well, denies pain, reports some fatigue with RLE exercises but with rest denies any other issues. PT Summary Plan of Care Continue with current plan of care Individual (PT) Time In 1345 Time Out 1431 Total Time with Patient (Min) 46 min Missed Minutes Missed Minutes 1 Bertha Dawn, PT 10/07/2017, 2:58 PM * OT Treatment Note - Shanae Chambers, OT - 10/07/2017 12:14 PM CDT 10/07/17 1035 Pain Assessment Pain Context Therapy Assessment Prior to Treatment Pain Assessment NRS 0-10 Pain Assessment None/denies pain Pain Score 0 - No pain Standing Tolerance Standing Tolerance Time (mins) 40 min (10 min cog task, 10 min functional mobilty, 6 min laundry folding, 16 min meal prep) Activity various tasks Functional Standing Tolerance Comments no LOB using ww Standing Assist Modified Independent Kitchen Mobility Mobility Assist for the Kitchen Walker Kitchen Activity Retrieve items;Transport items;Store items Kitchen Mobility Comments see below Meal Prep Mobility Assist for Meal Prep Walker Meal Prep Level of Assistance Modified Independent Meal Preparation Pt is given demonstration and education of ww safety in home to transport and gather items in kitchen. She demos modified independence using ww and demos good understanding of safety. She demos good familiar recall of items needed to make grilled cheese sandwich and demos good safety in preheating then turning off hot appliances at proper times. She demos good sequencing and susta ined attention for task. She is educated on recommendation to obtain assist for complex meal prep tasks (use of oven/stove top and cutting items) and she is agreeable. She demos modified independencewith simple and simple-moderate level cooking tasks. Light Housekeeping Mobility Assist for Light Housekeeping Walker Light Housekeeping Level of Assistance Modified Independent Light Housekeeping Pt participates in various laundry tasks this date. Pt first is educated on technique using ww to gather clothing from various heights including from ground level. She demos understanding without cues and increased time to gather all clothing with increased time scan to obtain items from R side. She demos no LOB and requires modified independence. Pt then stands at table using ww for UE support to fold laundry with modified independence. Pt then loads front loading washing machine simulating home chores with modified independence. She does require orientation of knobs of unfamiliar washing machine however but demos ability to pick appropriate setting for washing clothing.Pt requires one cue for integration of use of RU Coordination Training Coordination Training Narrative Pt completes R UE FMC training for 15 min using R UE to pickling solution maker andreplace small various shaped pieces completing 100% of task within 15 minutes She demos good improvements with R UE function but decreased accuracy, in hand strength, and coordnation. Task completed to improve functional use of R UE in daily tasks. Cognitive Skills Training Cognitive Skills Training Problem solving skill training;Training in sequencing;Planning Problem Solving comments Pt demos ability to peice together 25 peice puzzle (upside down but when complete she orientes it properly) using visual reference with good strategy to obtain end pieces first then center pieces demonstating good basic reasoning skills Other Interventions Narrative: Pt completes functional mobility to and from therapy gym/bedroom using ww with modified independence and occasional raul with items on R side Treatment, Outcomes, and Plan OT Narrative: Pt demonstrates good progress with IADL management, balance and R UE FMC. POC to continue addressing dynamic standing balance, R UE strength, and safety in IADLs OT Treatment Outcomes: Safety device reapplied;Patient tolerated treatment well;Patient is progressing toward STG(s);Qualitative gains in function OT Summary Plan of Care Continue with current plan of care Individual (OT) Time In 1035 Time Out 1205 Breaks/Pauses (Min) 0 mins Total Time with Patient (Min) 90 min SHANAE CHAMBERS OT 10/07/2017 12:14 PM * [employer] Treatment Note - Inge Vega - 10/07/2017 11:38 AM CDT 10/07/17 0930 Patient Subjective Report Patient Subjective Report Pt seen alert and in chair; agreeable to treatment. Pain Assessment Pain Context Therapy Assessment Prior to Treatment Pain Assessment None/denies pain Daily Treatment Cognitive Communication Short-term memory;Verbal organization;Organization;Functional problem solving;Compensatory techniques for cognition Patient/Caregiver Training Discussed;Participated;Verbalized understanding Treatment Outcome and Plan of Care ST Narrative: Pt independently recalled details of morning and breakfast. Pt recalled 2/3 items after five minute delay with minimal cues. Pt answered functional problem solving questions with 88% accuracy with supervisory assistance. Pt identified similarities and differences between two words to a ddress thought organization and reasoning with 75% accuracy with moderate to maximal assistance to attend to constraints of task. Recommend to continue current plan of care. *Pt taken to OT. ST Session Outcomes Tolerated treatment well;Progressing toward STGs;Independent during session;Minimal cues during session;Moderate cues during session;Maximal cues during session;Patient/family education progressing ST Summary Plan of Care Continue with current plan of care Individual (ST) Time In 0945 Time Out 1030 Total Time with Patient (Min) 45 min Missed Minutes Missed Minutes 0 INGE VEGA Cosigned by ST Uyen at 10/07/2017 11:41 AM CDT * Plan of Care - Mata Downs RN - 10/07/2017 11:18 AM CDT Bowel Incontinence ??? Perineal Skin Integrity is Maintained or Improved Progressing Discharge Planning ??? Discharge to home or other facility with appropriate resources Progressing ??? 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 Free from fall injury Progressing Infection ??? Absence of infection and prevention of transmission during hospitalization Progressing Knowledge Deficit ??? Patient and/or family demonstrate readiness to learn Progressing ??? Patient and/or family verbalizes understanding of education, and/or performs desired skill Progressing Knowledge Deficit ??? Patient/family/caregiver demonstrates understanding of disease process, treatment plan, medications, and discharge instructions Progressing Potential for Compromised Skin Integrity ??? Skin integrity is maintained or improved Progressing ??? Nutritional status is improving Progressing Urinary Incontinence ??? Perineal skin integrity is maintained or improved Progressing * [facility] Treatment Note - Inge Vega - 10/06/2017 12:41 PM CDT 10/06/17 1030 Patient Subjective Report Patient Subjective Report Pt seen alert and in chair; agreeable to treatment. Pain Assessment Pain Context Therapy Assessment Prior to Treatment Pain Assessment None/denies pain Daily Treatment Cognitive Communication Basic attention;Short-term memory;Organization;Planning and sequencing;Functional problem solving;Compensatory techniques for cognition Patient/Caregiver Training Discussed;Participated;Verbalized understanding Treatment Outcome and Plan of Care ST Narrative: Pt independently recalled details of morning and breakfast as well as plans for discharge. Pt described planning of future holiday and accomodations for mobility. Pt independently recalled 2/3 details of a message after 15 minute delay. Pt answered problem solving questions with 75% accuracy with supervisory assistance. Pt completed basic sequencing task with 87% accuracy with independence. Pt completed word deduction task to address thought organization, reasoning, and word finding with 81% accuracy with minimal assistance. Recommend to continue current plan of care. Pt taken to PT. ST Session Outcomes Tolerated treatment well;Progressing toward STGs;Patient/family education progressing;Minimal cues during session;Independent during session ST Summary Plan of Care Continue with current plan of care Individual (ST) Time In 1030 Time Out 1115 Total Time with Patient (Min) 45 min Missed Minutes Missed Minutes 0 INGE VEGA Cosigned by ST Uyen at 10/06/2017 12:46 PM CDT * PT Treatment Note - Bertha Dawn, PT - 10/06/2017 12:34 PM CDT 10/06/17 1117 Pain Assessment Pain Context Therapy Assessment Prior to Treatment Pain Assessment NRS 0-10 Pain Score 0 - No pain Bed Mobility Bed Mobility Performed on mat;Short sit to - from supine Bed Mobility Level of Assistance Independent Transfer 1 Transfer to 1 Stand Transfer From 1 Sit Technique 1 Sit to stand Transfer Level of Assistance 1 Modified Independent Trials/Comments 1 to fww Transfers 2 Transfer to 2 Sit Transfer From 2 Stand Technique 2 Stand to sit Transfer Level of Assistance 2 Modified Independent Trials/Comments 2 from fww Transfers 3 Transfer to 3 Chair with arms Transfer From 3 Wheelchair Technique 3 Stand pivot Transfer Level of Assistance 3 Modified Independent Trials/Comments 3 with fww Ambulation Surface Even surface;Indoor Assistive Device RW Ambulation Level of Assistance Modified Independent Distance (feet) 200 ft Gait Analysis ambulates 200 feet with fww and modified independence. dec joseline, no safety issues noted Wheelchair Management Wheelchair Level of Assistance Modified Independent Distance Traveled in Wheelchair (feet) 150 ft Wheelchair Type Manual Wheelchair Cushion Standard Left Brakes Level of Assistance Modified Independent Right Brakes Level of Assistance Modified Indepdent Wheelchair Propulsion Surface Even surface;Indoor Propulsion Method Bilateral lower extremity Activity tolerance Activity Type Standing Activity Endurance Good Activity Comment use of fww Therapeutic Activities and Neuromuscular Re-education Therapeutic Activities and Neuromuscular Re-education pt was issued written home exercise program. pt demosntrates all exercises without cues from PT (completes with written instructions) independently. discussed safety and fall prevention. pt completes standing exercises iwth use of walker and no issues, completed modified independent stnading exericses x 10 reps including hip flexion, hip flexion with knee flexed, knee flexion, heel raises, toe raises, hip abd, hip ext, mini squats. completessitting exericse program and sidelying hip abd, hip ext and hip flexion with knee flexed, and clamsx 10 reps. denies any questions or needs at this time. Outcomes PT Treatment Outcomes: Patient is progressing toward STG;Patient tolerated treatment well PT Summary: pt issued green card this session; transfers and ambulates in room with front wheeled walker modified Ind; OT in agreement with green card. PT Summary Plan of Care Continue with current plan of care Individual (PT) Time In 1117 Time Out 1203 Total Time with Patient (Min) 46 min Missed Minutes Missed Minutes 1 Bertha Dawn, PT 10/06/2017, 12:34 PM * OT Treatment Note - Shanae Chambers OT - 10/06/2017 9:00 AM CDT 10/06/17 0730 Pain Assessment Pain Context Therapy Assessment Prior to Treatment Pain Assessment None/denies pain Pain Assessment NRS 0-10 Pain Score 0 - No pain Grooming Grooming Independent Grooming Where Assessed Standing at sink Bathing Bathing Distant Supervision Bathing Where Assessed Seated in shower;Standing in shower Bathing Equipment Provided Bath Mitt;Hand held shower hose Bathing Comments distant supervison when standing due to concerns with balance using grab bars and shower chair Toileting Toileting Modified Independent Toileting Where Assessed Toilet Toilet Comments using grab bar and ww Upper Body Dressing Dressing Upper Body Modified Independent Upper Body Dressing Where Assessed Sitting in chair Upper Body Dressing Comments increased time to fasten bra, completing 15/15 aspects of task, including using ww to gather clothing from bedroom Lower Body Dressing Dressing Lower Body Modified Independent Lower Body Dressing Where Assessed Sitting in chair;Standing Lower Body Dressing Comments use of ww for balance completing 20/20 aspects of task Toilet Transfers Toilet Transfer Modified Independent Toilet Transfer To Standard toilet Toilet Transfer From Stand Toilet Transfer Technique Ambulatory Toilet Transfers Comments use of grab bars and ww Shower Transfers Shower Transfer Close Supervision Shower Transfer to Shower seat with back Shower Transfer From Stand Shower Transfer Technique Ambulatory Shower Transfers Comments close SBA required using grab bars to step over simulated threshold Bed, Chair, Wheelchair Transfers Bed, Chair, Wheelchair Transfer Modified Independent Bed/Chair Transfer to Bed Bed/Chair Transfer from Stand Bed/Chair Transfer Technique Sit to stand;Stand to sit;Ambulatory Assistive Devices Used Walker Bed/Chair Transfer Comments BED MOBILITY : with independence. SIT TO ANDFROM STAND: with modified independence using ww Standing Tolerance Standing Tolerance Time (mins) 10 min Activity static standing Functional Standing Tolerance Comments no LOB Standing Assist Independent Therapeutic Exercise - Strength Strength Exercise Pt participates in R UE strengthening using 2# free weight in planes of shoulder flexion, abduction, protraction/retraction in punching form, elbow flexion and tricep extension x 10reps x 2 sets. She requires cues for form as she fatigues. She demos good progress with strength and good motivation througout. Task completed to improve R UE strength and overall endurance for functional transfers and self care skills Coordination Training Coordination Training Narrative Pt participates in R UE coordination training placing medium sized cylindrical pegs into slots on foam board with improved speed then she threads string through small holes on pegs with increased time but improved in hand manipulation skills of R UE. she places 25 pegs then strings 25 pegs within 12 min Cognitive Skills Training Memory comments Pt reports memory feeling same as prior to admissoin. She requires min cues and is educated on memory strategies during memory card matching task while standing Treatment, Outcomes, and Plan OT Narrative: Pt demos good progress with bathing and dressing as well as R UE strength. POC to contnue addressing IADL and cognition, R UE funciton and dynamic balance OT Treatment Outcomes: Safety device reapplied;Patient tolerated treatment well;Patient is progressing toward STG(s);Goals met for this session;Qualitative gains in function;Improved ADL performance OT Summary Plan of Care Continue with current plan of care Individual (OT) Time In 0730 Time Out 0900 Breaks/Pauses (Min) 0 mins Total Time with Patient (Min) 90 min Missed Minutes Missed Minutes 0 SHANAE CHAMBERS, TE[place]ORO 10/06/2017 9:00 AM * Plan of Care - Issa Mooney RN - 10/06/2017 4:44 AM CDT Bowel Incontinence ??? Perineal Skin Integrity is Maintained or Improved Progressing Case Management Discharge Goals ??? Identify patient's discharge goals Progressing ??? Coordinate Safe Discharge Plan Progressing ??? Work with the treatment team to assess caregiver capability Progressing Discharge Planning ??? Discharge to home or other facility with appropriate resources Progressing ??? 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 Free from fall injury Progressing Infection ??? Absence of infection and prevention of transmission during hospitalization Progressing Knowledge Deficit ??? Patient and/or family demonstrate readiness to learn Progressing ??? Patient and/or family verbalizes understanding of education, and/or performs desired skill Progressing Knowledge Deficit ??? Patient/family/caregiver demonstrates understanding of disease process, treatment plan, medications, and discharge instructions Progressing Potential for Compromised Skin Integrity ??? Skin integrity is maintained or improved Progressing ??? Nutritional status is improving Progressing Urinary Incontinence ??? Perineal skin integrity is maintained or improved Progressing * Plan of Care - Lisseth Child RN - 10/05/2017 5:00 PM CDT Problem: Case Management Discharge Goals Goal: Identify patient's discharge goals Outcome: Progressing Goal: Coordinate Safe Discharge Plan Outcome: Progressing Goal: Work with the treatment team to assess caregiver capability Outcome: Progressing * Team Conference - Lisseth Child RN - 10/05/2017 3:07 PM CDT Team Conference Note Date: 10/05/2017 Time: 3:07 PM Patient Name: Maria Long Date of : 1960 Sex: Female Room/Bed: 321/321-1 Payor Info: No coverage found. Admit Date/Time: 09/15/2017 7:26 PM Patient Active Problem List Diagnosis Date Noted ??? Essential hypertension 09/15/2017 ??? Diabetes mellitus without mention of complication, type II or unspecified type, uncontrolled 09/15/2017 ??? Hemiplegia affecting right dominant side 09/15/2017 ??? Dysarthria 09/15/2017 ??? Dyslipidemia with high density lipoprotein below reference range and triglyceride above reference range due to type 2 diabetes mellitus 09/15/2017 ??? Multiple lacunar infarcts 09/15/2017 ??? Morbid obesity 09/15/2017 Team Members Present: Attendees: Lisseth Child RN, Carlos A Sherwood, PharmD, Halle Santana, AIR DIRECTOR, Bertha Dawn, PT, Pati Dean, RECORD CENTER SPECIALIST, Shanae Chambers, OT, Other (comment), Scott Coles, [facility] (Dr Ellie Martínez MD) Patient/Family Present: Patient Present: No Patient's Family Present: No Anticipated Discharge 10/10/2017 Discharge Plan: Discharge Destination Type: Own Home Potential Barriers to Return to Prior Living (Use comments to be specific): Caregiver limitations;Architectural/environmental barrier(s);Potential need for 24 hour care Medications: Current Facility-Administered Medications: ??? aspirin EC tablet 81 mg, 81 mg, Oral, Once a day, Yue Reed MD, 81 mg at 10/05/17 0858 ??? atorvastatin (LIPITOR) tablet 40 mg, 40 mg, Oral, Nightly, Yue Reed MD, 40 mg at ??? dextrose (GLUTOSE) 40 % oral gel 15 g, 15 g, Oral, PRN, Yue Reed MD ??? dextrose 5 % and sodium chloride 0.45 % infusion, 50 mL/hr, Intravenous, PRN, Yue Reed MD ??? dextrose 50 % solution 25 g, 25 g, Intravenous, PRN, Yue Reed MD ??? glimepiride (AMARYL) tablet 4 mg, 4 mg, Oral, Daily with breakfast, Yue Reed MD, 4 mg at 10/05/17 0856 ??? glucagon (human recombinant) injection 1 mg, 1 mg, Intramuscular, PRN, Yue Reed MD ??? griseofulvin (JOSELITO-PEG) tablet 250 mg, 250 mg, Oral, BID PC, Yue Reed MD, 250 mg at 10/05/17 0858 ??? lactulose (CHRONULAC) 10 GM/15ML solution 30 g, 30 g, Oral, Daily PRN, Yue Reed MD, 30 g at 09/28/17 1748 ??? metFORMIN (GLUCOPHAGE) tablet 500 mg, 500 mg, Oral, BID with meals, Yue Reed MD, 500 mg at 10/05/17 0858 ??? miconazole (MICOTIN) 2 % cream, , Topical, 2 times per day, Yue Reed MD ??? senna (SENOKOT) tablet 8.6 mg, 8.6 mg, Oral, Nightly, Yue Reed MD, 8.6 mg at 10/04/172026 Pharmacy: Anti-infective Durations: Griseofulvin 250mg PO BIDWM for dermatophytosis through 10/17 Glycemic Control: Metformin BIDWM ; Glimepiride daily with breakfast Special Discharge Medications: Discharging on alogliptan Special Clinical Monitoring Protocols: CrCl 120ml/min Nursing Team Conference: Physical Therapy Weekly Progress Note: PT Overall Functional Status: Ms. Long is currently: TRANSFERS: sit to stand with modified independence (improved from close supervision) GAIT: Ambulates 200 feet with single point cane and closesupervision (improved from 200 feet with front wheeled walker and close supervision) ELEVATIONS: ascends/descends 3 6 inch steps with rail and contact guard assistance (improved from 1 4 inch step with minimal assistance), ascends/descends 2 inch and [address] with f[address] and with spc with close supervision and cga. WHEELCHAIR: PRopels manaual wheelchair 150 feet with modified independence (improved from supervision). She has made progress as noted above and she would benefit from continued skilled PT per POC to maximize safety,functional abiltiies, and independence (10/05/17 0943) Facilitating Factors in Goal Achievement: Patient understanding and knowledge, Patient compliance, Patient motivation, Use of compensatory strategies, Improved safety awareness, Improved functional mobility, Improved strength (10/05/17 1229) Barriers: Strength limitations, Balance deficits, Motor control deficits, Diminished endurance (10/05/17 1229) Short Term Goals: Transfer Goals - Short Term Transfer Goals - Short Term: Short Term 3 (09/28/17 1247) Transfer Short Term Goal 1: sit to stand with contact guard assistance (10/05/17 1223) Transfer Short Term Goal 1 Status: Achieved (10/05/17 1223) Transfer Short Term Goal 2: stand pivot with contact guard assistance (10/05/17 1223) Transfer Short Term Goal 2 Status: Achieved (10/05/17 122) Transfer Short Term Goal 3: sit to stand and stand pivot with modified indpeendence with front wheeeld walker (10/05/17 1223) Transfer Short Term Goal 3 Status: Achieved (10/05/17 1223) Transfer Short Term Goal 4: sit to stand and stand pivot with modified indpeendence with single point cane (10/05/17 1223) Transfer Short Term Goal 4 Status: Established (10/05/17 1223) Expected Achievement Date: 10/11/17 (10/05/17 1223) Bed/Mat Mobility Goals - Short Term Bed/Mat Mobility Goals - Short Term: Short Term 2 (09/28/17 1247) Bed/Mat Mobility Short Term Goal 1: supine to and from sit with supervision (10/05/17 1227) Bed/Mat Mobility Short Term Goal 1 Status: Achieved (10/05/17 122) Bed/Mat Mobility Short Term Goal 2: supine to and from sit with independence (10/05/17 1227) Bed/Mat Mobility Short Term Goal 2 Status: Achieved (10/05/17 122) Expected Achievement Date: 10/11/17 (10/05/17 1227) Gait Goals - Short Term Gait Goals - Short Term: Short Term Goal 1 (09/16/17 1608) Gait Short Term Goal 1: Ambulate 100 feet with front wheeled walker with splint and contact guard assistance. (10/05/17 1227) Gait Short Term Goal 1 Status: Achieved (10/05/17 1227) Gait Short Term Goal 2: Ambulate 150 feet with front wheeled walker with modified independence (10/05/17 1227) Gait Short Term Goal 2 Status: Partially Achieved (10/05/17 1227) Expected Achievement Date: 10/11/17 (10/05/17 1227) Elevation Goals - Short Term Elevation Goals - Short Term: Short Term 3 (10/05/17 1228) Elevation Short Term Goal 1: ascend/descend curb step with front wheeeld walker and minimal assistance (10/05/17 1228) Elevation Short Term Goal 1 Status: Achieved (10/05/17 1228) Elevation Short Term Goal 2: ascend/descedn 4 4 inch steps with one rail and contact guard assistance (10/05/17 1228) Elevation Short Term Goal 2 Status: Partially Achieved (10/05/17 1228) Elevation Short Term Goal 3: asc/desc 6 inch curb step with modified independence and approrpiate assistive devcie (10/05/17 1228) Elevation Short Term Goal 3 Status: Established (10/05/17 1228) Expected Achievement Date: 10/11/17 (10/05/17 1228) Wheelchair Management and Propulsion Goals - Short Term Wheelchair Management and Propulsion Goals - Short Term: Short Term 1 (09/16/17 1609) Wheelchair Management and Propulsion Short Term Goal 1: Propel manaul wheelchair 150 feet modified independent (10/05/17 1229) Wheelchair Management and Propulsion Short Term Goal 1 Status: Achieved (10/05/17 1229) Expected Achievement Date: 09/22/17 (09/16/17 1609) Curb Supervisor Goals: Transfer Goals - Care Home Transfer Goals - Curb Supervisor: prison 1, intermodal customer service 2 (09/16/17 1602) Transfer Curb Supervisor Goal 1: sit to stand with modified independence (09/16/17 1602) Transfer Care Home Goal 1 Status: Established (09/16/17 1602) Transfer Curb Supervisor Goal 2: stand pviot with modified idnependence (09/16/17 1602) Transfer Curb Supervisor Goal 2 Status: Established (09/16/17 1602) Expected Achievement Date: 10/07/17 (09/16/17 1602) Bed/Mat Mobility Goals - Care Home Bed/Mat Mobility Goals - Curb Supervisor: Curb Supervisor 1 (09/16/17 1603) Bed/Mat Mobility Care Home Goal 1: supine to and from sit with independence (09/16/17 1603) Bed/Mat Mobility Curb Supervisor Goal 1 Status: Established (09/16/17 1603) Expected Achievement Date: 10/07/17 (09/16/17 1603) Gait Goals - Care Home Gait Goals - Curb Supervisor: Care Home Goal 1 (09/16/17 1603) Gait Curb Supervisor Goal 1: Ambulate 150 feet with least restrictive assistive device and modified independence (09/16/17 1603) Gait Curb Supervisor Goal 1 Status: Established (09/16/17 1603) Expected Achievement Date: 10/07/17 (09/16/17 1603) Elevation Goals - Care Home Elevation Goals - Curb Supervisor: Care Home 1, Curb Supervisor 2 (09/16/17 1603) Elevation Care Home Goal 1: ascend/descend 1 curb step with modified independence (09/16/17 1603) Elevation Curb Supervisor Goal Status: Established (09/16/17 1603) Elevation Care Home Goal 2: sacend/descend 4 steps with rail and supervision (09/16/17 1603) Elevation Curb Supervisor Goal 2 Status: Established (09/16/17 1603) Expected Achievement Date: 10/07/17 (09/16/17 1603) Wheelchair Management and Propulsion Goals - Curb Supervisor Wheelchair Management and Propulsion Goals - Curb Supervisor: Curb Supervisor 1 (09/16/17 1604) Wheelchair Management and Propulsion Care Home Goal 1: Propel manual wheelchair 150 feet with supervision (09/16/17 1604) Wheelchair Management and Propulsion Care Home Goal 1 Status: Established (09/16/17 1604) Expected Achievement Date: 09/22/17 (09/16/17 1604) Other PT Care Home Goals Other Goals - Curb Supervisor: Curb Supervisor 1 (09/16/17 1605) Other Care Home Goal 1: PASS to be completed (09/16/17 1605) Other Curb Supervisor Goal 1 Status: Established (09/16/17 1605) Expected Achievement Date: 10/07/17 (09/16/17 1605) Occupational Therapy Weekly Progress Note: OT Overall Functional Status: Ms Long is making good progress in occupational therapy and current functional status is as follows: EATING: with modified independence GROOMING: with setup and increased time while standing BATHING: with stand by assistance using shower chair and grab bars with wash mitt UPPER BODY DRESSING: with setup and increased time LOWER BODY DRESSING: with stand by assistance TOILETING: with modified independence using grab bars (improved from stand by assistance using grab bars) BED/CHAIR TRANSFER: with stand by assistance using wheeled walker TOILET TRANSFER: with stand by assistance using grab bars TUB/SHOWER TRANSFER: with stand by assistance using grab bars. Inaddition to progress with ADLs and transfers, she has also made progress with R UE AROM and strength as well as FMC, static standing balance and tolerance, balance during functional mobility and functional cognitive skills. Continued impairments include decreased R UE strength and endurance, decreased high level cognitive skills impeding independence with IADLs, decreased dynamic standing balancedue to R knee instability. Ms Long will benefit from continued inpatient occupational therapy to improve independence with ADLs and transfers to ensure safe discharge to least restrictive environment. (10/05/17722) Facilitating Factors in Goal Achievement: Patient understanding and knowledge, Patient compliance, Patient motivation, Use of compensatory strategies, Improved functional mobility, Improved strength,Improved cognition, Improved safety awareness (10/05/17724) Barriers: Strength limitations, Balance deficits, Motor control deficits, Diminished endurance, Cognitive deficits (10/05/17724) Short Term Goals: Eating Short Term Goals Eating Goals - Short Term: Short Term Goal 1 (09/28/17 1059) Eating Short Term Goal 1: with modified independence (09/28/17 1059) Eating Short Term Goal 1 Status: Achieved (09/28/17 1059) Expected Achievement Date: 09/28/17 (09/21/17 07) Grooming Short Term Goals Grooming Goals - Short Term: Short Term Goal 1 (10/05/17722) Grooming Short Term Goal 1: with setup seated (10/05/17722) Grooming Short Term Goal 1 Status: Achieved (10/05/17722) Grooming Short Term Goal 2: with modified independence standing at sink (10/05/17722) Grooming Short Term Goal 2 Status: Not Achieved (10/05/17722) Expected Achievement Date: 10/12/17 (10/05/17722) Bathing Short Term Goals Bathing Goals - Short Term: Bathing Short Term 1, Bathing Short Term 2, Bathing Short Term 3 (10/05/17723) Bathing Short Term Goal 1: with contact guard assistance using grab bars and shower chair (724) Bathing Short Term Goal 1 Status: Achieved (10/05/17723) Bathing Short Term Goall 2: with stand by assistance using grab bars and shower chair (10/05/17723) Bathing Short Term Goal 2 Status: Achieved (10/05/17723) Bathing Short Term Goal 3: with distant supervision using grab bars and shower chair (10/05/17723) Bathing Short Term Goal 3 Status: Not Achieved (10/05/17723) Expected Achievement Date: 10/12/17 (10/05/17723) Upper Body Dressing Short Term Goals Upper Body Dressing Goals - Short Term: Short Term Goal 1, Short Term Goal 2 (10/05/17723) UE Dressing Short Term Goal 1: with setup and cues (10/05/17723) UE Dressing Short Term Goal 1 Status: Achieved (10/05/17723) UE Dressing short term goal 2: with modified independence (10/05/17723) UE Dressing Short Term Goal 2 Status: Not Achieved (10/05/17723) Expected Achievement Date: 10/12/17 (10/05/17723) Lower Body Dressing Short Term Goals Lower Body Dressing Goals - Short Term: Short Term Goal 1, Short Term Goal 2, Short Term Goal 3 (10/05/17723) LE Dressing Short Term Goal 1: with minimal assistance using hemitechnique (10/05/17723) LE Dressing Short Term Goal 1 Status: Achieved (10/05/17723) LE Dressing short term goal 2: with contact guard assistance using hemitechnique (10/05/17723) LE Dressing Short Term Goal 2 Status: Achieved (10/05/17723) LE Dressing Short Term Goal 3: with modified independence using ww (10/05/17723) LE Dressing Short Term Goal 3 Status: Not Achieved (06/25/18 0724) Expected Achievement Date: 10/12/17 (10/05/1724) Toileting Short Term Goals Toileting Goals - Short Term: Short Term Goal 1, Short Term Goal 2, Short Term Goal 3, Short Term Goal 4 (10/05/17723) Toileting Short Term Goal 1: with maximal assistance using grab bars (10/05/1724) Toileting Short Term Goal 1 Status: Achieved (10/05/17723) Toileting Short Term Goal 2: with moderate assistance using grab bars (10/05/17723) Toileting Short Term Goal 2 Status: Achieved (10/05/17723) Toileting Short Term Goal 3: with modified independence using grab bars (10/05/17723) Toileting Short Term Goal 3 Status: Achieved (10/05/17723) Toileting Short Term Goal 4: with independence (10/05/17723) Toileting Short Term Goal 4 Status: Established (10/05/17723) Expected Achievement Date: 10/12/17 (10/05/17723) Transfer Short Term Goals Transfer Goals-Short Term: Short Term 1, Short Term 2, Short Term 3 (10/05/17723) Transfer Short Term Goal 1: BED/CHAIR: with modified independence using wheeled walker (10/05/17723) Transfer Short Term Goal1 Status: Not Achieved (10/05/17723) Transfer Short Term Goal 2: TOILET: with modified independence using grab bars (10/05/17723) Transfer Short Term Goal 2 Status: Not Achieved (10/05/17723) Transfer Short Term Goal 3: TUB/SHOWER: with modified independence using grab bars (10/05/17723) Transfer Short Term Goal 3 Status: Not Achieved (10/05/17723) Expected Achievement Date: 10/12/17 (10/05/17723) Care Home Goals: Eating Curb Supervisor Goals Eating Goals - Curb Supervisor: Curb Supervisor Goal 1 (09/16/17 1034) Eating Curb Supervisor Goal 1: with modified independence and dentures (09/16/17 1034) Eating Care Home Goal 1 Status: Established (09/16/17 1034) Expected Achievement Date: 10/14/17 (09/16/17 1034) Grooming Care Home Goals Grooming Goals - Curb Supervisor: Grooming Curb Supervisor 1 (09/16/17 1034) Grooming Care Home Goal 1: with modified independence using hemitechnique (09/16/17 1034) Grooming Care Home Goal 1 Status: Established (09/16/17 1034) Expected Achievement Date: 10/14/17 (09/16/17 1034) Bathing Care Home Goals Bathing Goals - Care Home: Bathing Curb Supervisor 1 (09/16/17 1035) Bathing Curb Supervisor Goal 1: with stand by assistance using grab bars (09/16/17 1035) Bathing Care Home Goal 1 Status: Established (09/16/17 1035) Expected Achievement Date: 10/14/17 (09/16/17 1035) Upper Body Dressing Care Home Goals Upper Body Dressing Goals - Care Home: Care Home Goal 1 (09/16/17 1035) UE Dressing Care Home Goal 1: with modified independence using hemitechnique (09/16/17 1035) UE Dressing Curb Supervisor Goal 1 Status: Established (09/16/17 1035) Expected Achievement Date: 10/14/17 (09/16/17 1035) Lower Body Dressing Curb Supervisor Goals Lower Body Dressing Goals - Curb Supervisor: Care Home Goal 1 (09/16/17 1036) LE Dressing Curb Supervisor Goal 1: with modified independence using hemitechnique (09/16/17 1036) LE Dressing Curb Supervisor Goal 1 Status: Established (09/16/17 1036) Expected Achievement Date: 10/14/17 (09/16/17 1036) Toileting Curb Supervisor Goals Toileting Goals - Curb Supervisor: Care Home Goal 1 (09/16/17 1036) Toileting Care Home Goal 1: with modified independence using grab bars (09/16/17 1036) Toileting Care Home Goal 1 Status: Established (09/16/17 1036) Expected Achievement Date: 10/14/17 (09/16/17 1036) Transfer Care Home Goals Transfer Care Home Goal 1: BED/CHAIR: with modified independence using least restrictive device (09/16/17 1037) Transfer Curb Supervisor Goal 1 Status: Established (09/16/17 1037) Transfer Curb Supervisor Goal 2: TOILET: with modified independence using grab bars (09/16/17 1037) Transfer Care Home Goal 2 Status: Established (09/16/17 1037) Transfer Care Home Goal 3: TUB/SHOWER: with stand by assistnace using grab bars (09/16/17 1037) Transfer Care Home Goal 3 Status: Established (09/16/17 1037) Expected Achievement Date: 10/14/17 (09/16/17 1037) Speech Therapy Weekly Progress Note: CITY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 Long's current functional status is as follows: DIET: Regular and Thin liquids. SWALLOWING STRATEGIES: Upright 90 degrees, small bites/sips, slow rate, monitorright cheek for pocketing and alternation of solids/liquids. COMPREHENSION: Supervisory assist for basic comprehension. WFL for basic conversation and increased amount of assist for complex conversation. EXPRESSION: Supervisory assist for verbal expression. WFL for basic conversation with increasedamount of assist for complex conversation. SOCIAL: WFL. Mrs. Long acts appropriately with staffand family members. REASONING: Mildly impaired for basic reasoning tasks. Cues required some of the time for reasoning. Decreased reasoning, thought organization, and attention. MEMORY: Supervisory assist for basic memory tasks. WFL for basic memory tasks requires increased amount of assist for complex and during unfamiliar circumstances. Noted difficulty with paragraph recall. PROGRESS: Mrs. Long has continued to demonstrate progress with short-term recall, thought organization, and functional problem solving. Progress also noted for basic sequencing and reasoning. Mrs. Long would benefit from further ST. Recommend to continue current plan of care. (10/02/17 1455) Facilitating Factors in Goal Achievement: Patient motivation, Improvement in communication skills, Increased insight into deficits, Ability to use compensatory strategies, Progress to date (10/02/17 1502) Barriers: Other (comment) (Cognitive deficits) (10/02/17 1502) Short Term Goals: Expression Short Term Goals Expression Goals - Short Term: Short Term 1 (09/16/17 1248) Expression Short Term Goal 1: utilize speech intelligibility strategies at the conversational levelat 100% intelligibility with supervisory assist. (10/02/17 1456) Expression Short Term Goal 1 Status: Achieved (10/02/17 1456) Expected Achievement Date: 10/02/17 (10/02/17 1456) Problem Solving Short Term Goals Problem Solving Goals - Short Term: Short Term 2 (09/25/17 1453) Problem Solving Short Term Goal 1: complete functional problem solving/reasoning tasks at 80% accuracy with min cues. (10/02/17 1457) Problem Solving Short Term Goal 1 Status: Achieved (10/02/17 145) Problem Solving Short Term Goal 2: complete functional problem solving/reasoning tasks at 80% accuracy with occasional cues (10/02/17 1457) Problem Solving Short Term Goal 2 Status: Partially Achieved (10/02/17 1457) Expected Achievement Date: 10/09/17 (10/02/17 1457) Memory Short Term Goals Memory Goals - Short Term: Short Term 1 (09/16/17 1250) Memory Short Term Goal 1: complete short term memory tasks at 80% with minimal cues. (Goal met for basic short-term recall; progressing to more complex tasks.) (10/02/17 1458) Memory Short Term Goal 1 Status: Partially Achieved (10/02/17 1458) Expected Achievement Date: 10/09/17 (10/02/17 1458) Additional Cognition Short Term Goals Additional Cognition Goals - Short Term: Short Term 1, Short Term 2 (09/16/17 1252) Additional Cognition Short Term Goal 1: complete thought organization tasks at 80% with minimal cues. (10/02/17 1459) Additional Cognition Short Term Goal 1 Status: Partially Achieved (10/02/17 145) Additional Cognition Short Term Goal 2: participate in CLQT, as appropriate. (10/02/17 1459) Additional Cognition Short Term Goal 2 Status: Achieved (10/02/17 1459) Expected Achievement Date: 10/09/17 (10/02/17 1459) Swallowing Short Term Goals Swallowing Goals - Short Term: Short Term 1 (09/16/17 1247) Swallowing Short Term Goal 1: tolerate regular solids and thin liquids with less than 10% s/s of aspiration and independent use of swallowing strategies. (10/02/17 1500) Swallowing Short Term Goal 1 Status: Achieved (10/02/17 1500) Expected Achievement Date: 10/02/17 (10/02/17 1500) Care Home Goals: Expression Curb Supervisor Goals Expression Goals - Curb Supervisor: Curb Supervisor 1 (09/16/17 1241) Expression Care Home Goal 1: participate in basic conversation with supervisory fior for use of speech intelligibility strategies and expression of thoughts/ideas. (09/16/17 1241) Expression Care Home Goal 1 Status: Established (09/16/17 1241) Expected Achievement Date: 09/30/17 (09/16/17 124) Additional Cognition Care Home Goals Additional Cognition Goals - Care Home: Care Home 1 (09/16/17 124) Additional Cognition Curb Supervisor Goal 1: participate in daily routines with minimal cues for basic memory and reasoning tasks to safely complete ADLs. (09/16/17 1244) Additional Cognition Curb Supervisor Goal 1 Status: Established (09/16/17 1244) Expected Achievement Date: 09/30/17 (09/16/17 124) Swallowing Curb Supervisor Goals Swallowing Goals - Curb Supervisor: Curb Supervisor 1 (09/16/17 124) Swallowing Care Home Goal 1: tolerate the least restrictive diet with less than 10% s/s of aspiration for safe and adequate consumption of daily meals. (09/16/17 124) Swallowing Care Home Goal 1 Status: Established (09/16/17 124) Expected Achievement Date: 09/30/17 (09/16/17 124) Respiratory Team Conference: Nutrition Team Conference: Dietary Orders Start Ordered 09/21/17 0808 Adult Diet Therapeutic Diet: Low Fat, Carb Controlled; Carbohydrate Controlled: 5 Carb/75gm/meal (2000 calories); Diet Texture: Regular Bite-Cut; Liquid Consistency: All Liquids - No Restrictions Diet effective now Question Answer Comment Therapeutic Diet: Low Fat Therapeutic Diet: Carb Controlled Carbohydrate Controlled: 5 Carb/75gm/meal (2000 calories) Diet Texture: Regular Bite-Cut Liquid Consistency All Liquids - No Restrictions Place order in third democrat system. Done 09/21/17 0807 Height: 5' 6 (167.6 cm) Admit Weight: 196 lb 6 oz (89.1 kg) Current Weight: 192 lb 8 oz (87.3 kg) Body mass index is 31.07 kg/(m^2). Calorie Count: Nutrition Intake: Oral Nutrition Risk: Patient not at nutrition risk Nutrition Recommendations: continue same diet order Nutrition Update: 100% po intake of carb controlled, low fat diet with 4# weight loss - bmi 31 Wound: Case management: Family training completed Goal to dc home with dtr and spouse and home exercises Cont and incont of bladder Cont of bowel Pain: no c/o voiced Barriers: high level problem solving; decrease fine motor Need assest with all IALDS post dc Recommend dc with str cane poss instead of ww; [facility] family able to provide transportation Cosigned by Ellie Martínez MD at 10/05/2017 5:06 PM CDT Associated attestation - Ellie Martínez MD - 10/05/2017 6:06 PM EDT 10/05/2017 A team conference was held on 10/05/2017 and included members of the multidisciplinary team identified in the attendance section of this note. Issues related to Ms. Long's status include; continued contact isolation for ringworm. Improving fine motor coordination at right upper extremity. Ms. Crystals progress toward rehabilitation goals, impediments to attaining these goals, and associated revisions to the treatment plans and goals were discussed by the team. Details of this multidisciplinary process are included below. Issues of particular significance at this time regarding 's progress towards rehabilitation goals and treatment plan include: recommendation for a Green Card, will likely be able to use a straight ane by discharge. As discussed during this team conference, I concur with the decisions set forth by the members of the multidisciplinary team. Ms. Long continues to require frequent physician visits and 24 hours per day acute rehabilitation nursing care in order to meet medical needs and progress toward the achievement of the rehabilitation goals. LELIE MARTÍNEZ MD 10/05/2017 5:03 PM * OT Treatment Note - Shanae Chambers OT - 10/05/2017 2:45 PM CDT 10/05/17 1259 Pain Assessment Pain Context Therapy Assessment Prior to Treatment Pain Assessment NRS 0-10 Pain Assessment NRS 0-10 Pain Score 0 - No pain Grooming Grooming Independent Grooming Where Assessed Standing at sink Grooming Comments pt independent with washing hands at sink after toileting Toileting Toileting Modified Independent Toileting Where Assessed Toilet Toilet Comments use of grab bars for UE support Toilet Transfers Toilet Transfer Modified Independent Toilet Transfer To Standard toilet Toilet Transfer From Stand Toilet Transfer Technique Ambulatory Toilet Transfers Comments use of ww and grab bars Bed, Chair, Wheelchair Transfers Bed, Chair, Wheelchair Transfer Modified Independent Bed/Chair Transfer to Wheelchair Bed/Chair Transfer from Stand Bed/Chair Transfer Technique Sit to stand;Stand to sit;Ambulatory Assistive Devices Used Walker Bed/Chair Transfer Comments Pt completes functional mobility from bedroom to bathroom in bedroom onlevel surfaces using ww with modified independence. She completes sit to and from stand transfer with modified independence using ww Standing Tolerance Standing Tolerance Time (mins) 10 min Activity dynamic standing balance activity Functional Standing Tolerance Comments Pt completes dynamic standing balance task first using balloon and reaching out side base of support with BUEs out to each side and overhead with good reaction time and use of R UE. She has no LOB and completes this task for 5 min. She then takes a short rest break then stands again for 5 min to completes dynamic standing balance task using weighted (3#) medicine ball to toss with BUEs progressing to reaching ball behind back then tossing with only R UE toimprove dynamic standing balance and functional dynamic use of R UE in self care skills such as LB dressing and toileting, she has no LOB and does not use device Standing Assist Distant Supervision Transfer Training: Narrative: Pt completes functional mobility from therapy gym to bedroom with ww and modified independence approximately 125 feet navigating environmental obstacles well Weight Bearing Weight Bearing Technique Yes RUE Weight Bearing Prone Response to Weight Bearing Technique Pt tolerates prone positiong for 10 min weight bearing throughBUEs on forearms and elbows and uses R UE to complete coordination task. task completed to improve R UE function via weight bearing and proprioceptive input for improved independence in self care skills Coordination Training Coordination Training Narrative Pt completes various R UE coordination tasks this date. First she uses moderate resistance clothes pin to improve in hand strength to pinch small pegs and place into narrow slot to improve accuracy and precision. She initially demos difficulty with task and requries rest breaks as she fatigues. She demos good motivation despite and completes task for 15 min placingapprox 12 pegs into slot within this time frame. Pt then participates in R UE card game task requiring pt to flip cards with R UE with increased time and no signfiicant difficulty however. Pt completes this task to improve R UE function for self care skills and ADLs Cognitive Skills Training Cognitive Skills Training Activities to improve sustained attention;Problem solving skill training;Training on executive function;Complex problem solving;Planning;Training in sequencing Problem Solving comments Pt participates in [employer] map reading task. She states she uses public transit prior to admission. She requires max cues for success with task and reasoning and requires each question to be broken down with maximal guidance. She completes two separate tasks: hours of operation in which pt successfully answers 1/3 basic problems and reqiures cues for success on all moderate level problems. Pt then completes stations list questions and requires cues for 7/8 problems toensure success. Pt is educated to obtain assist for [place] to [place] and she is agreeable Sequencing comments Pt demos good famliar recall of basic card game and demos ability to take turnswithout cues Treatment, Outcomes, and Plan OT Narrative: Pt demos good progress with functional transfers, basic cogntiion and dynamic standing balance. POC to continue addressing dressing, bathing, and balance OT Treatment Outcomes: Safety device reapplied;Patient tolerated treatment well;Patient is progressing toward STG(s);Goals met for this session OT Summary Plan of Care Continue with current plan of care Individual (OT) Time In 1259 Time Out 1430 Breaks/Pauses (Min) 0 mins Total Time with Patient (Min) 91 min Missed Minutes Missed Minutes 1 SHANAE CHAMBERS, OT 10/05/2017 2:45 PM * PT Treatment Note - Bertha Dawn, PT - 10/05/2017 2:04 PM CDT 10/05/17 0915 Pain Assessment Pain Context Therapy Assessment Prior to Treatment Pain Assessment NRS 0-10 Pain Score 0 - No pain Transfer 1 Transfer to 1 Stand Transfer From 1 Sit Technique 1 Sit to stand Transfer Level of Assistance 1 Modified Independent Trials/Comments 1 to fww Transfers 2 Transfer to 2 Sit Transfer From 2 Stand Technique 2 Stand to sit Transfer Level of Assistance 2 Modified Independent Trials/Comments 2 from fww Transfers 3 Transfer to 3 Toilet Transfer From 3 Stand Technique 3 Ambulatory Transfer Level of Assistance 3 Distant Supervision Trials/Comments 3 with fww Ambulation Surface Even surface;Indoor Assistive Device Cane Ambulation Level of Assistance Close Supervision Distance (feet) 200 ft Gait Analysis ambulates 200 feet x 1 trial and 140 feet with single pointn cane and close supervision. gait deviations include dec cadnece dec step length, inc time to complete. Wheelchair Management Wheelchair Level of Assistance Modified Independent Distance Traveled in Wheelchair (feet) 160 ft Wheelchair Type Manual Left Brakes Level of Assistance Independent Right Brakes Level of Assistance Independent Wheelchair Propulsion Surface Even surface;Indoor Propulsion Method Bilateral lower extremity Wheelchair Analysis inc time adela omplete Activity tolerance Activity Type Standing Activity Endurance Good Activity Comment use of assistive device Therapeutic Activities and Neuromuscular Re-education Therapeutic Activities and Neuromuscular Re-education increased time for dressing and toileting this session. distant supervision for safety. ambulates short distances in the room with fww and modified independence; standing balance exercises including hip abduction on LLEto work on RLE stabilizingx 10 reps, sidelying clams x 15 reps to improve R hip abd strength, saq rle x 10 reps with 5 secondhold, bridges x 10 reps; all to improve rle and core strength Outcomes PT Treatment Outcomes: Safety device reapplied;Patient tolerated treatment well;Patient is progressing toward STG PT Summary Plan of Care Continue with current plan of care Individual (PT) Time In 0900 Time Out 0945 Total Time with Patient (Min) 45 min Missed Minutes Missed Minutes 0 Bertha Dawn, PT 10/05/2017, 2:04 PM * CITY COUNCILMAN Weekly Progress Note - ST New - 10/05/2017 12:32 PM CDT Hi Madrigal MS [facility] CITY COUNCILMAN have read and reviewed Inge Vgea's CITY COUNCILMAN Weekly Progress note from 10/05 and agree with the contents of this note. Note not formally co-signed due to EPIC malfunction. HI CESPEDES ST * CITY COUNCILMAN Treatment Note - Inge Vega - 10/05/2017 12:31 PM CDT 10/05/17 1030 Patient Subjective Report Patient Subjective Report Pt seen alert and in chair; agreeable to treatment. Pain Assessment Pain Context Therapy Assessment Prior to Treatment Pain Assessment None/denies pain Daily Treatment Cognitive Communication Organization;Basic attention;Semi-complex to complex attention;Planning andsequencing;Compensatory techniques for cognition;Functional problem solving Patient/Caregiver Training Discussed;Participated;Verbalized understanding;Further training needed Treatment Outcome and Plan of Care ST Narrative: Pt completed calendar activity to address functional thought organization, planning, and sequencing with 76% accuracy with supervisory assistance. Pt identified commonalities and differences between two words to address thought organization and reasoning with 75% accuracy with minimalto moderate assistance to attend to constraints of task. Pt answered functional problem solving questions with 84% accuracy with supervisory assistance. Recommend to continue current plan of care. *Pt left in room with call light and phone within reach. ST Session Outcomes Tolerated treatment well;Progressing toward STGs;Independent during session;Minimal cues during session;Patient/family education progressing ST Summary Plan of Care Continue with current plan of care Individual (ST) Time In 1030 Time Out 1115 Total Time with Patient (Min) 45 min Missed Minutes Missed Minutes 0 INGE VEGA Cosigned by ST Uyen at 10/06/2017 7:11 AM CDT * PT Weekly Progress Note - Bertha Dawn, PT - 10/05/2017 12:30 PM CDT Physical Therapy Weekly Progress Note: PT Overall Functional Status: Ms. Long is currently: TRANSFERS: sit to stand with modified independence (improved from close supervision) GAIT: Ambulates 200 feet with single point cane and closesupervision (improved from 200 feet with front wheeled walker and close supervision) ELEVATIONS: ascends/descends 3 6 inch steps with rail and contact guard assistance (improved from 1 4 inch step with minimal assistance), ascends/descends 2 inch and [address] with fww and with spc with close supervision and cga. WHEELCHAIR: PRopels manaual wheelchair 150 feet with modified independence (improved from supervision). She has made progress as noted above and she would benefit from continued skilled PT per POC to maximize safety,functional abiltiies, and independence (10/05/17 0943) Facilitating Factors in Goal Achievement: Patient understanding and knowledge, Patient compliance, Patient motivation, Use of compensatory strategies, Improved safety awareness, Improved functional mobility, Improved strength (10/05/17 1229) Barriers: Strength limitations, Balance deficits, Motor control deficits, Diminished endurance (10/05/17 1229) Short Term Goals: Transfer Goals - Short Term Transfer Goals - Short Term: Short Term 3 (09/28/17 1247) Transfer Short Term Goal 1: sit to stand with contact guard assistance (10/05/17 1223) Transfer Short Term Goal 1 Status: Achieved (10/05/17 1223) Transfer Short Term Goal 2: stand pivot with contact guard assistance (10/05/17 1223) Transfer Short Term Goal 2 Status: Achieved (10/05/17 1223) Transfer Short Term Goal 3: sit to stand and stand pivot with modified indpeendence with front wheeeld walker (10/05/17 1223) Transfer Short Term Goal 3 Status: Achieved (10/05/17 1223) Transfer Short Term Goal 4: sit to stand and stand pivot with modified indpeendence with single point cane (10/05/17 1223) Transfer Short Term Goal 4 Status: Established (10/05/17 1223) Expected Achievement Date: 10/11/17 (10/05/17 1223) Bed/Mat Mobility Goals - Short Term Bed/Mat Mobility Goals - Short Term: Short Term 2 (09/28/17 1247) Bed/Mat Mobility Short Term Goal 1: supine to and from sit with supervision (10/05/17 1227) Bed/Mat Mobility Short Term Goal 1 Status: Achieved (10/05/17 1227) Bed/Mat Mobility Short Term Goal 2: supine to and from sit with independence (10/05/17 1227) Bed/Mat Mobility Short Term Goal 2 Status: Achieved (10/05/17 1227) Expected Achievement Date: 10/11/17 (10/05/17 1227) Gait Goals - Short Term Gait Goals - Short Term: Short Term Goal 1 (09/16/17 1608) Gait Short Term Goal 1: Ambulate 100 feet with front wheeled walker with splint and contact guard assistance. (10/05/17 1227) Gait Short Term Goal 1 Status: Achieved (10/05/17 1227) Gait Short Term Goal 2: Ambulate 150 feet with front wheeled walker with modified independence (10/05/17 1227) Gait Short Term Goal 2 Status: Partially Achieved (10/05/17 1227) Expected Achievement Date: 10/11/17 (10/05/17 1227) Elevation Goals - Short Term Elevation Goals - Short Term: Short Term 3 (10/05/17 1228) Elevation Short Term Goal 1: ascend/descend curb step with front wheeeld walker and minimal assistance (10/05/17 1228) Elevation Short Term Goal 1 Status: Achieved (10/05/17 1228) Elevation Short Term Goal 2: ascend/descedn 4 4 inch steps with one rail and contact guard assistance (10/05/17 1228) Elevation Short Term Goal 2 Status: Partially Achieved (10/05/17 1228) Elevation Short Term Goal 3: asc/desc 6 inch curb step with modified independence and approrpiate assistive devcie (10/05/17 1228) Elevation Short Term Goal 3 Status: Established (10/05/17 1228) Expected Achievement Date: 10/11/17 (10/05/17 1228) Wheelchair Management and Propulsion Goals - Short Term Wheelchair Management and Propulsion Goals - Short Term: Short Term 1 (09/16/17 1609) Wheelchair Management and Propulsion Short Term Goal 1: Propel manaul wheelchair 150 feet modified independent (10/05/17 1229) Wheelchair Management and Propulsion Short Term Goal 1 Status: Achieved (10/05/17 1229) Expected Achievement Date: 09/22/17 (09/16/17 1609) Care Home Goals: Transfer Goals - Curb Supervisor Transfer Goals - Care Home: prison 1, intermodal customer service 2 (09/16/17 1602) Transfer Curb Supervisor Goal 1: sit to stand with modified independence (09/16/17 1602) Transfer Curb Supervisor Goal 1 Status: Established (09/16/17 1602) Transfer Care Home Goal 2: stand pviot with modified idnependence (09/16/17 1602) Transfer Care Home Goal 2 Status: Established (09/16/17 1602) Expected Achievement Date: 10/07/17 (09/16/17 1602) Bed/Mat Mobility Goals - Care Home Bed/Mat Mobility Goals - Care Home: Care Home 1 (09/16/17 1603) Bed/Mat Mobility Curb Supervisor Goal 1: supine to and from sit with independence (09/16/17 1603) Bed/Mat Mobility Care Home Goal 1 Status: Established (09/16/17 1603) Expected Achievement Date: 10/07/17 (09/16/17 1603) Gait Goals - Curb Supervisor Gait Goals - Care Home: Care Home Goal 1 (09/16/17 1603) Gait Curb Supervisor Goal 1: Ambulate 150 feet with least restrictive assistive device and modified independence (09/16/17 1603) Gait Care Home Goal 1 Status: Established (09/16/17 1603) Expected Achievement Date: 10/07/17 (09/16/17 1603) Elevation Goals - Curb Supervisor Elevation Goals - Care Home: Curb Supervisor 1, Curb Supervisor 2 (09/16/17 1603) Elevation Care Home Goal 1: ascend/descend 1 curb step with modified independence (09/16/17 1603) Elevation Care Home Goal Status: Established (09/16/17 1603) Elevation Curb Supervisor Goal 2: sacend/descend 4 steps with rail and supervision (09/16/17 1603) Elevation Care Home Goal 2 Status: Established (09/16/17 1603) Expected Achievement Date: 10/07/17 (09/16/17 1603) Wheelchair Management and Propulsion Goals - Curb Supervisor Wheelchair Management and Propulsion Goals - Care Home: Care Home 1 (09/16/17 1604) Wheelchair Management and Propulsion Care Home Goal 1: Propel manual wheelchair 150 feet with supervision (09/16/17 1604) Wheelchair Management and Propulsion Curb Supervisor Goal 1 Status: Established (09/16/17 1604) Expected Achievement Date: 09/22/17 (09/16/17 1604) Other PT Curb Supervisor Goals Other Goals - Curb Supervisor: Care Home 1 (09/16/17 1605) Other Curb Supervisor Goal 1: PASS to be completed (09/16/17 1605) Other Curb Supervisor Goal 1 Status: Established (09/16/17 1605) Expected Achievement Date: 10/07/17 (09/16/17 1605) Bertha Dawn, PT 10/05/2017, 12:31 PM * CITY COUNCILMAN Weekly Progress Note - Inge Vega - 10/05/2017 10:32 AM CDT Speech Therapy Weekly Progress Note: CITY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 Long's current functional status is as follows: DIET: Regular and Thin liquids. SWALLOWING STRATEGIES: Upright 90 degrees, small bites/sips, slow rate, monitorright cheek for pocketing and alternation of solids/liquids. COMPREHENSION: Supervisory assist for basic comprehension. WFL for basic conversation and increased amount of assist for complex conversation. EXPRESSION: Supervisory assist for verbal expression. WFL for basic conversation with increasedamount of assist for complex conversation. SOCIAL: WFL. Mrs. Long acts appropriately with staffand family members. REASONING: Mildly impaired for basic reasoning tasks. Cues required some of the time for reasoning. Decreased reasoning, thought organization, and attention. MEMORY: Supervisory assist for basic memory tasks. WFL for basic memory tasks requires increased amount of assist for complex and during unfamiliar circumstances. Noted difficulty with paragraph recall. PROGRESS: Mrs. Long has continued to demonstrate progress with short-term recall, thought organization, and functional problem solving. Progress also noted for basic sequencing and reasoning. Mrs. Long would benefit from further ST. Recommend to continue current plan of care. (10/02/17 1455) Facilitating Factors in Goal Achievement: Patient motivation, Improvement in communication skills, Increased insight into deficits, Ability to use compensatory strategies, Progress to date (10/02/17 1502) Barriers: Other (comment) (Cognitive deficits) (10/02/17 1502) Short Term Goals: Expression Short Term Goals Expression Goals - Short Term: Short Term 1 (09/16/17 1248) Expression Short Term Goal 1: utilize speech intelligibility strategies at the conversational levelat 100% intelligibility with supervisory assist. (10/02/17 1456) Expression Short Term Goal 1 Status: Achieved (10/02/17 1456) Expected Achievement Date: 10/02/17 (10/02/17 1456) Problem Solving Short Term Goals Problem Solving Goals - Short Term: Short Term 2 (09/25/17 1453) Problem Solving Short Term Goal 1: complete functional problem solving/reasoning tasks at 80% accuracy with min cues. (10/02/17 1457) Problem Solving Short Term Goal 1 Status: Achieved (10/02/17 1457) Problem Solving Short Term Goal 2: complete functional problem solving/reasoning tasks at 80% accuracy with occasional cues (10/02/17 1457) Problem Solving Short Term Goal 2 Status: Partially Achieved (10/02/17 1457) Expected Achievement Date: 10/09/17 (10/02/17 1457) Memory Short Term Goals Memory Goals - Short Term: Short Term 1 (09/16/17 1250) Memory Short Term Goal 1: complete short term memory tasks at 80% with minimal cues. (Goal met for basic short-term recall; progressing to more complex tasks.) (10/02/17 1458) Memory Short Term Goal 1 Status: Partially Achieved (10/02/17 1458) Expected Achievement Date: 10/09/17 (10/02/17 1458) Additional Cognition Short Term Goals Additional Cognition Goals - Short Term: Short Term 1, Short Term 2 (09/16/17 1252) Additional Cognition Short Term Goal 1: complete thought organization tasks at 80% with minimal cues. (10/02/17 1459) Additional Cognition Short Term Goal 1 Status: Partially Achieved (10/02/17 1459) Additional Cognition Short Term Goal 2: participate in CLQT, as appropriate. (10/02/17 1459) Additional Cognition Short Term Goal 2 Status: Achieved (10/02/17 1459) Expected Achievement Date: 10/09/17 (10/02/17 1459) Swallowing Short Term Goals Swallowing Goals - Short Term: Short Term 1 (09/16/17 1247) Swallowing Short Term Goal 1: tolerate regular solids and thin liquids with less than 10% s/s of aspiration and independent use of swallowing strategies. (10/02/17 1500) Swallowing Short Term Goal 1 Status: Achieved (10/02/17 1500) Expected Achievement Date: 10/02/17 (10/02/17 1500) Curb Supervisor Goals: Expression Curb Supervisor Goals Expression Goals - Care Home: Care Home 1 (09/16/17 1241) Expression Care Home Goal 1: participate in basic conversation with supervisory fior for use of speech intelligibility strategies and expression of thoughts/ideas. (09/16/17 1241) Expression Curb Supervisor Goal 1 Status: Established (09/16/17 1241) Expected Achievement Date: 09/30/17 (09/16/17 124) Additional Cognition Curb Supervisor Goals Additional Cognition Goals - Curb Supervisor: Curb Supervisor 1 (09/16/17 1244) Additional Cognition Curb Supervisor Goal 1: participate in daily routines with minimal cues for basic memory and reasoning tasks to safely complete ADLs. (09/16/17 1244) Additional Cognition Curb Supervisor Goal 1 Status: Established (09/16/17 1244) Expected Achievement Date: 09/30/17 (09/16/17 124) Swallowing Care Home Goals Swallowing Goals - Care Home: Care Home 1 (09/16/17 124) Swallowing Care Home Goal 1: tolerate the least restrictive diet with less than 10% s/s of aspiration for safe and adequate consumption of daily meals. (09/16/17 124) Swallowing Care Home Goal 1 Status: Established (09/16/17 1245) Expected Achievement Date: 09/30/17 (09/16/17 1245) INGE VEGA Cosigned by ST Uyen at 10/06/2017 7:11 AM CDT * OT Weekly Progress Note - Shanae Chambers OT - 10/05/2017 7:26 AM CDT Occupational Therapy Weekly Progress Note: OT Overall Functional Status: Ms Long is making good progress in occupational therapy and current functional status is as follows: EATING: with modified independence GROOMING: with setup and increased time while standing BATHING: with stand by assistance using shower chair and grab bars with wash mitt UPPER BODY DRESSING: with setup and increased time LOWER BODY DRESSING: with stand by assistance TOILETING: with modified independence using grab bars (improved from stand by assistance using grab bars) BED/CHAIR TRANSFER: with stand by assistance using wheeled walker TOILET TRANSFER: with stand by assistance using grab bars TUB/SHOWER TRANSFER: with stand by assistance using grab bars. Inaddition to progress with ADLs and transfers, she has also made progress with R UE AROM and strength as well as FMC, static standing balance and tolerance, balance during functional mobility and functional cognitive skills. Continued impairments include decreased R UE strength and endurance, decreased high level cognitive skills impeding independence with IADLs, decreased dynamic standing balancedue to R knee instability. Ms Long will benefit from continued inpatient occupational therapy to improve independence with ADLs and transfers to ensure safe discharge to least restrictive environment. (10/05/17722) Facilitating Factors in Goal Achievement: Patient understanding and knowledge, Patient compliance, Patient motivation, Use of compensatory strategies, Improved functional mobility, Improved strength,Improved cognition, Improved safety awareness (10/05/17724) Barriers: Strength limitations, Balance deficits, Motor control deficits, Diminished endurance, Cognitive deficits (10/05/17724) Short Term Goals: Eating Short Term Goals Eating Goals - Short Term: Short Term Goal 1 (09/28/17 105) Eating Short Term Goal 1: with modified independence (09/28/17 1059) Eating Short Term Goal 1 Status: Achieved (09/28/17 105) Expected Achievement Date: 09/28/17 (09/21/17719) Grooming Short Term Goals Grooming Goals - Short Term: Short Term Goal 1 (10/05/17722) Grooming Short Term Goal 1: with setup seated (10/05/17722) Grooming Short Term Goal 1 Status: Achieved (10/05/17722) Grooming Short Term Goal 2: with modified independence standing at sink (10/05/17722) Grooming Short Term Goal 2 Status: Not Achieved (10/05/17722) Expected Achievement Date: 10/12/17 (10/05/17722) Bathing Short Term Goals Bathing Goals - Short Term: Bathing Short Term 1, Bathing Short Term 2, Bathing Short Term 3 (10/05/17723) Bathing Short Term Goal 1: with contact guard assistance using grab bars and shower chair (724) Bathing Short Term Goal 1 Status: Achieved (10/05/17723) Bathing Short Term Goall 2: with stand by assistance using grab bars and shower chair (10/05/17723) Bathing Short Term Goal 2 Status: Achieved (10/05/17723) Bathing Short Term Goal 3: with distant supervision using grab bars and shower chair (10/05/17723) Bathing Short Term Goal 3 Status: Not Achieved (10/05/17723) Expected Achievement Date: 10/12/17 (10/05/17723) Upper Body Dressing Short Term Goals Upper Body Dressing Goals - Short Term: Short Term Goal 1, Short Term Goal 2 (10/05/17723) UE Dressing Short Term Goal 1: with setup and cues (10/05/17723) UE Dressing Short Term Goal 1 Status: Achieved (10/05/17723) UE Dressing short term goal 2: with modified independence (10/05/17723) UE Dressing Short Term Goal 2 Status: Not Achieved (10/05/17723) Expected Achievement Date: 10/12/17 (10/05/17723) Lower Body Dressing Short Term Goals Lower Body Dressing Goals - Short Term: Short Term Goal 1, Short Term Goal 2, Short Term Goal 3 (10/05/17723) LE Dressing Short Term Goal 1: with minimal assistance using hemitechnique (10/05/17723) LE Dressing Short Term Goal 1 Status: Achieved (10/05/17723) LE Dressing short term goal 2: with contact guard assistance using hemitechnique (10/05/17723) LE Dressing Short Term Goal 2 Status: Achieved (10/05/17723) LE Dressing Short Term Goal 3: with modified independence using ww (10/05/17723) LE Dressing Short Term Goal 3 Status: Not Achieved (10/05/17723) Expected Achievement Date: 10/12/17 (10/05/17723) Toileting Short Term Goals Toileting Goals - Short Term: Short Term Goal 1, Short Term Goal 2, Short Term Goal 3, Short Term Goal 4 (10/05/17723) Toileting Short Term Goal 1: with maximal assistance using grab bars (10/05/17723) Toileting Short Term Goal 1 Status: Achieved (10/05/17723) Toileting Short Term Goal 2: with moderate assistance using grab bars (10/05/17723) Toileting Short Term Goal 2 Status: Achieved (10/05/17723) Toileting Short Term Goal 3: with modified independence using grab bars (10/05/17723) Toileting Short Term Goal 3 Status: Achieved (10/05/17723) Toileting Short Term Goal 4: with independence (10/05/17723) Toileting Short Term Goal 4 Status: Established (10/05/17723) Expected Achievement Date: 10/12/17 (10/05/17723) Transfer Short Term Goals Transfer Goals-Short Term: Short Term 1, Short Term 2, Short Term 3 (10/05/17723) Transfer Short Term Goal 1: BED/CHAIR: with modified independence using wheeled walker (10/05/17723) Transfer Short Term Goal1 Status: Not Achieved (10/05/17723) Transfer Short Term Goal 2: TOILET: with modified independence using grab bars (10/05/17723) Transfer Short Term Goal 2 Status: Not Achieved (10/05/17723) Transfer Short Term Goal 3: TUB/SHOWER: with modified independence using grab bars (10/05/17723) Transfer Short Term Goal 3 Status: Not Achieved (10/05/17723) Expected Achievement Date: 10/12/17 (10/05/1724) Care Home Goals: Eating Care Home Goals Eating Goals - Care Home: Care Home Goal 1 (09/16/17 1034) Eating Curb Supervisor Goal 1: with modified independence and dentures (09/16/17 1034) Eating Curb Supervisor Goal 1 Status: Established (09/16/17 1034) Expected Achievement Date: 10/14/17 (09/16/17 1034) Grooming Care Home Goals Grooming Goals - Care Home: Grooming Curb Supervisor 1 (09/16/17 1034) Grooming Curb Supervisor Goal 1: with modified independence using hemitechnique (09/16/17 1034) Grooming Care Home Goal 1 Status: Established (09/16/17 1034) Expected Achievement Date: 10/14/17 (09/16/17 1034) Bathing Care Home Goals Bathing Goals - Care Home: Bathing Curb Supervisor 1 (09/16/17 1035) Bathing Curb Supervisor Goal 1: with stand by assistance using grab bars (09/16/17 1035) Bathing Care Home Goal 1 Status: Established (09/16/17 1035) Expected Achievement Date: 10/14/17 (09/16/17 1035) Upper Body Dressing Curb Supervisor Goals Upper Body Dressing Goals - Care Home: Care Home Goal 1 (09/16/17 1035) UE Dressing Curb Supervisor Goal 1: with modified independence using hemitechnique (09/16/17 1035) UE Dressing Curb Supervisor Goal 1 Status: Established (09/16/17 1035) Expected Achievement Date: 10/14/17 (09/16/17 1035) Lower Body Dressing Care Home Goals Lower Body Dressing Goals - Curb Supervisor: Care Home Goal 1 (09/16/17 1036) LE Dressing Care Home Goal 1: with modified independence using hemitechnique (09/16/17 1036) LE Dressing Care Home Goal 1 Status: Established (09/16/17 1036) Expected Achievement Date: 10/14/17 (09/16/17 1036) Toileting Curb Supervisor Goals Toileting Goals - Care Home: Curb Supervisor Goal 1 (09/16/17 1036) Toileting Curb Supervisor Goal 1: with modified independence using grab bars (09/16/17 1036) Toileting Care Home Goal 1 Status: Established (09/16/17 1036) Expected Achievement Date: 10/14/17 (09/16/17 1036) Transfer Curb Supervisor Goals Transfer Curb Supervisor Goal 1: BED/CHAIR: with modified independence using least restrictive device (09/16/17 1037) Transfer Care Home Goal 1 Status: Established (09/16/17 1037) Transfer Care Home Goal 2: TOILET: with modified independence using grab bars (09/16/17 1037) Transfer Care Home Goal 2 Status: Established (09/16/17 1037) Transfer Curb Supervisor Goal 3: TUB/SHOWER: with stand by assistnace using grab bars (09/16/17 1037) Transfer Curb Supervisor Goal 3 Status: Established (09/16/17 1037) Expected Achievement Date: 10/14/17 (09/16/17 1037) * Plan of Care - Bettina Milner RN - 10/04/2017 10:13 PM CDT Perineal Skin Integrity is Maintained or Improved Progressing Identify patient's discharge goals Progressing Coordinate Safe Discharge Plan Progressing Work with the treatment team to assess caregiver capability Progressing Discharge to home or other facility with appropriate resources Progressing mud analysis operator will develop a plan to decrease their burden and enhance comfort in role Progressing Free from fall injury Progressing Absence of infection and prevention of transmission during hospitalization Progressing Patient and/or family demonstrate readiness to learn Progressing Patient and/or family verbalizes understanding of education, and/or performs desired skill Progressing Patient/family/caregiver demonstrates understanding of disease process, treatment plan, medications, and discharge instructions Progressing Skin integrity is maintained or improved Progressing Nutritional status is improving Progressing Perineal skin integrity is maintained or improved Progressing * Plan of Care - Kasey Cruz RN - 10/04/2017 11:35 AM CDT Bowel Incontinence ??? Perineal Skin Integrity is Maintained or Improved Progressing Case Management Discharge Goals ??? Identify patient's discharge goals Progressing ??? Coordinate Safe Discharge Plan Progressing ??? Work with the treatment team to assess caregiver capability Progressing Discharge Planning ??? Discharge to home or other facility with appropriate resources Progressing ??? 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 Free from fall injury Progressing Infection ??? Absence of infection and prevention of transmission during hospitalization Progressing Knowledge Deficit ??? Patient and/or family demonstrate readiness to learn Progressing ??? Patient and/or family verbalizes understanding of education, and/or performs desired skill Progressing Knowledge Deficit ??? Patient/family/caregiver demonstrates understanding of disease process, treatment plan, medications, and discharge instructions Progressing Potential for Compromised Skin Integrity ??? Skin integrity is maintained or improved Progressing ??? Nutritional status is improving Progressing Urinary Incontinence ??? Perineal skin integrity is maintained or improved Progressing * Plan of Care - Bettina Milner RN - 10/04/2017 12:07 AM CDT Perineal Skin Integrity is Maintained or Improved Progressing Identify patient's discharge goals Progressing Coordinate Safe Discharge Plan Progressing Work with the treatment team to assess caregiver capability Progressing Discharge to home or other facility with appropriate resources Progressing mud analysis operator will develop a plan to decrease their burden and enhance comfort in role Progressing Free from fall injury Progressing Absence of infection and prevention of transmission during hospitalization Progressing Patient and/or family demonstrate readiness to learn Progressing Patient and/or family verbalizes understanding of education, and/or performs desired skill Progressing Patient/family/caregiver demonstrates understanding of disease process, treatment plan, medications, and discharge instructions Progressing Skin integrity is maintained or improved Progressing Nutritional status is improving Progressing Perineal skin integrity is maintained or improved Progressing * Plan of Care - Kasey Cruz RN - 10/03/2017 4:29 PM CDT Bowel Incontinence ??? Perineal Skin Integrity is Maintained or Improved Progressing Case Management Discharge Goals ??? Identify patient's discharge goals Progressing ??? Coordinate Safe Discharge Plan Progressing ??? Work with the treatment team to assess caregiver capability Progressing Discharge Planning ??? Discharge to home or other facility with appropriate resources Progressing ??? 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 Free from fall injury Progressing Infection ??? Absence of infection and prevention of transmission during hospitalization Progressing Knowledge Deficit ??? Patient and/or family demonstrate readiness to learn Progressing ??? Patient and/or family verbalizes understanding of education, and/or performs desired skill Progressing Knowledge Deficit ??? Patient/family/caregiver demonstrates understanding of disease process, treatment plan, medications, and discharge instructions Progressing Potential for Compromised Skin Integrity ??? Skin integrity is maintained or improved Progressing ??? Nutritional status is improving Progressing Urinary Incontinence ??? Perineal skin integrity is maintained or improved Progressing * Plan of Care - Bettina Milner RN - 10/03/2017 1:57 AM CDT Perineal Skin Integrity is Maintained or Improved Progressing Identify patient's discharge goals Progressing Coordinate Safe Discharge Plan Progressing Work with the treatment team to assess caregiver capability Progressing Discharge to home or other facility with appropriate resources Progressing mud analysis operator will develop a plan to decrease their burden and enhance comfort in role Progressing Free from fall injury Progressing Absence of infection and prevention of transmission during hospitalization Progressing Patient and/or family demonstrate readiness to learn Progressing Patient and/or family verbalizes understanding of education, and/or performs desired skill Progressing Skin integrity is maintained or improved Progressing Nutritional status is improving Progressing Perineal skin integrity is maintained or improved Progressing * Plan of Care - Shanell Oh RD - 10/02/2017 4:17 PM CDT Problem: Unintended Weight Loss Related to: hospitalizaiton As Evidenced By: pt stating she lost 29# in the past month since she had been hospitalized Goal: Clinical Nutrition Goal Outcome: Progressing 09/16/17 1612 09/24/17 0912 Nutrition Goals Primary Goal Adequate Meals and Snack/Oral Nutrition Supplement Intake -- Primary Goal Progress -- Ongoing Primary Indicator/Monitor PO intake 75-100% -- Intervention: Medical Nutrition Therapy Interventions 09/16/17 1612 Nutrition Interventions Meals and Snacks General/healthful diet Coordination of Nutrition Care Continue to Monitor * OT Treatment Note - Shanae Chambers OT - 10/02/2017 3:20 PM CDT 10/02/17 1300 Pain Assessment Pain Context Therapy Assessment Prior to Treatment Pain Assessment NRS 0-10 Pain Score 0 - No pain Grooming Grooming Independent Grooming Where Assessed Standing at sink Grooming Comments pt washes hands after toleting with independence Toileting Toileting Modified Independent Toileting Where Assessed Toilet Toilet Comments use of grab bars and ww Toilet Transfers Toilet Transfer Distant Supervision Toilet Transfer To Standard toilet Toilet Transfer From Stand Toilet Transfer Technique Ambulatory Toilet Transfers Comments use of ww Bed, Chair, Wheelchair Transfers Bed, Chair, Wheelchair Transfer Distant Supervision Bed/Chair Transfer to Wheelchair Bed/Chair Transfer from Stand Bed/Chair Transfer Technique Sit to stand;Stand to sit Bed/Chair Transfer Status With stand by assist Assistive Devices Used Walker Standing Tolerance Standing Tolerance Time (mins) 8 min Activity BUE strengthening Functional Standing Tolerance Comments static standing Standing Assist Modified Independent Coordination Training Coordination Training Narrative Pt participates in handwriting task with cues for proper pen grasp and improving in hand manipulation vs gross hand movements for legible handwriting during cogntive task. Pt is issued HEP of use of hand application software engineer with minimal resistance for R UE and she demos understanding of use x 25 reps x 2 sets to improve composite grasp and prolonged grasp strength during functional tasks. Endurance Training Endurance Training Narrative Pt participates in endurance training while using UE restorator with moderate resistance for 8 min while standing without a rest break. Task completed to improve BUE strength and overall endurance of improved independence with self care and functional transfers Other Interventions Narrative: COGNITION: Pt requires prompting for recall of day to day tasks and of next instruction for task completion in writing out dailiy routine at home prior to admission. She is then able to identify 3 items in which she will have difficulty with upon dc home demonstrating good insight (including dishes, taking the bus for errand running, and laundry , ie carrying laundry across home) . Treatment, Outcomes, and Plan OT Narrative: Pt demos good progress with standing balance ,R UE strength , and cognitve skills. Continue skilled OT services per POC OT Treatment Outcomes: Safety device reapplied;Patient tolerated treatment well;Patient is progressing toward STG(s) OT Summary Plan of Care Continue with current plan of care Individual (OT) Time In 1300 Time Out 1345 Breaks/Pauses (Min) 0 mins Total Time with Patient (Min) 45 min Missed Minutes Missed Minutes 0 SHANAE CHAMBERS, OT 10/02/2017 3:20 PM * [employer] Treatment Note - ST New - 10/02/2017 2:51 PM CDT I can confirm that the documented information created by Inge Vega is valid. Due to inability to cosign note, this note will be used to verify that I agree with documentation. [facility] * PT Treatment Note - Bertha Dawn, PT - 10/02/2017 2:45 PM CDT 10/02/17 1351 Pain Assessment Pain Context Therapy Assessment Prior to Treatment Pain Assessment NRS 0-10 Pain Score 0 - No pain Transfer 1 Transfer to 1 Stand Transfer From 1 Sit Technique 1 Sit to stand Transfer Level of Assistance 1 Modified Independent Trials/Comments 1 to straight cane Transfers 2 Transfer to 2 Sit Transfer From 2 Stand Technique 2 Stand to sit Transfer Level of Assistance 2 Modified Independent Trials/Comments 2 spc Ambulation Surface Even surface;Indoor Assistive Device Cane Ambulation Level of Assistance Close Supervision Distance (feet) 200 ft Gait Analysis ambulates 200 feet with single point cane and clsoe supervivsion for safety. gait deviations include dec joseline dec step length slight r knee hyperextension but pt able to control, verbal cues to increase step length on RLE required. Wheelchair Management Wheelchair Level of Assistance Modified Independent Distance Traveled in Wheelchair (feet) 100 ft Wheelchair Type Manual Left Brakes Level of Assistance Independent Right Brakes Level of Assistance Independent Wheelchair Propulsion Surface Even surface;Indoor Propulsion Method Bilateral lower extremity Wheelchair Analysis distance limited by destination not by effort Activity tolerance Activity Type Standing Activity Endurance Good Compromised ability to maintain sitting or standing? No Activity Comment requires rest breaks Therapeutic Activities and Neuromuscular Re-education Therapeutic Activities and Neuromuscular Re-education performs sitting on mat to quadruped positiontowards L side with close supervision, attempted towards r side but pt fearful. completes x 3 trials. tall kneeling x 3 trials with reaching to the R and L to work on core strength and then half kneeling x 1 trial with each le leading cga to min assist for trainsition to half kneeling, min assist for getting R leg in half kneeling positon. standing ble exericses to improve ble strength and endurance for carry over into functional mobility including hip abdcution with spc without putting foot down while abducted min assist for balalnce. completes standing marching in place with cues for getting R hip into higher flexion, knee flexion ble with cga and spc all x 10 reps. ,ambulates 40 feet without assistive device with contact guard assitance to work on dynamic staning balance and progression to no assistive device Outcomes PT Treatment Outcomes: Patient tolerated treatment well;Safety device reapplied;Patient is progressing toward STG PT Summary Plan of Care Continue with current plan of care Individual (PT) Time In 1347 Time Out 1435 Total Time with Patient (Min) 48 min Missed Minutes Missed Minutes 3 Bertha Dawn, PT 10/02/2017, 2:45 PM * [employer] Treatment Note - Inge Vega - 10/02/2017 12:50 PM CDT 10/02/17 0900 Patient Subjective Report Patient Subjective Report Pt seen alert and in chair; agreeable to treatment. Pain Assessment Pain Context Therapy Assessment Prior to Treatment Pain Assessment None/denies pain Daily Treatment Cognitive Communication Short-term memory;Organization;Functional problem solving;Compensatory techniques for cognition Treatment Outcome and Plan of Care ST Narrative: Pt independently recalled details of morning as well as 3/3 items after 15 minute delay. Pt completed word deduction task to address thought organization, reasoning, and word finding with 62% accuracy with minimal to moderate assistance. Pt answered questions when presented with problem solving pictures with 77% accuracy with minimal assistance. Recommend to continue current plan ofcare. *Pt left in room for OT. ST Session Outcomes Tolerated treatment well;Progressing toward STGs;Minimal cues during session;Patient/family education progressing ST Summary Plan of Care Continue with current plan of care Individual (ST) Time In 0900 Time Out 0945 Total Time with Patient (Min) 45 min Missed Minutes Missed Minutes 0 INGE VEGA Cosigned by ST Uyen at 10/06/2017 7:11 AM CDT * OT Treatment Note - Monalisa Wilson, OT - 10/02/2017 10:30 AM CDT 10/02/17 0945 Pain Assessment Pain Context Therapy Assessment Prior to Treatment Pain Assessment None/denies pain Pain Score 0 - No pain Grooming Grooming Modified Independent Grooming Where Assessed Standing at sink Grooming Comments pt stood at sink with SBA to wash and dry hands with Mod I Toileting Toileting Distant Supervision Toileting Where Assessed Toilet Toilet Transfers Toilet Transfer Distant Supervision Toilet Transfer To Standard toilet with rails Toilet Transfer From Chair with arms Toilet Transfer Technique Ambulatory Toilet Transfers Comments pt ambulated with WW from chair to toilet in room with SBA Wheelchair Propulsion Surface Even surface;Smooth surfaces Propulsion Method Bilateral lower extremity;Bilateral upper extremity Comments: pt able to complete WC mobility with SBA to mod I. Pt used B LE's and occasionallly UE's. Cognitive Skills Training Cognitive Skills Training Activities to improve selective attention;Routine problem solving;Complexproblem solving;Training on executive function;Activities to improve divided attention;Problem solving skill training Other Interventions Other Interventions Yes Narrative: pt participated in deduction reasoning puzzle, requiring maximal assist. Decreased higher level cogntion. Pt also noted to have decreased hand strength while handwiriting with pencil. Ableto complete handwriting with 100% legibility.. Pt used clothespins of varying resistance to complete hand exercises with R hand. Pt demonstrates significant weakness and only able to open high resistance clothespins a minimal amount. Pt reports that she has theraputty in her room for continued practice on hand strength Treatment, Outcomes, and Plan OT Narrative: Pt participated well in therapy. Continues to demonstrate improvement in therapy. OT Treatment Outcomes: Patient tolerated treatment well;Improved ability to perform functional transfers OT Summary Plan of Care Continue with current plan of care Individual (OT) Time In 0945 Time Out 1030 Total Time with Patient (Min) 45 min * Plan of Care - Anitha Negron RN - 10/01/2017 10:25 PM CDT Problem: Infection Goal: Absence of infection and prevention of transmission during hospitalization Outcome: Progressing Problem: Fall Safety Goal: Free from fall injury Outcome: Progressing Problem: Knowledge Deficit Goal: Patient and/or family demonstrate readiness to learn Outcome: Progressing Goal: Patient and/or family verbalizes understanding of education, and/or performs desired skill Outcome: Progressing Problem: Discharge Planning Goal: Discharge to home or other facility with appropriate resources Outcome: Progressing Goal: mud analysis operator will develop a plan to decrease their burden and enhance comfort in role Outcome: Progressing Problem: Knowledge Deficit Goal: Patient/family/caregiver demonstrates understanding of disease process, treatment plan, medications, and discharge instructions Outcome: Progressing Problem: Potential for Compromised Skin Integrity Goal: Skin integrity is maintained or improved Outcome: Progressing Goal: Nutritional status is improving Outcome: Progressing * Plan of Care - Kasey Cruz RN - 10/01/2017 6:00 PM CDT Bowel Incontinence ??? Perineal Skin Integrity is Maintained or Improved Progressing Case Management Discharge Goals ??? Identify patient's discharge goals Progressing ??? Coordinate Safe Discharge Plan Progressing ??? Work with the treatment team to assess caregiver capability Progressing Discharge Planning ??? Discharge to home or other facility with appropriate resources Progressing ??? 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 Free from fall injury Progressing Infection ??? Absence of infection and prevention of transmission during hospitalization Progressing Knowledge Deficit ??? Patient and/or family demonstrate readiness to learn Progressing ??? Patient and/or family verbalizes understanding of education, and/or performs desired skill Progressing Knowledge Deficit ??? Patient/family/caregiver demonstrates understanding of disease process, treatment plan, medications, and discharge instructions Progressing Potential for Compromised Skin Integrity ??? Skin integrity is maintained or improved Progressing ??? Nutritional status is improving Progressing Urinary Incontinence ??? Perineal skin integrity is maintained or improved Progressing * PT Treatment Note - Bertha Dawn, PT - 10/01/2017 3:45 PM CDT 10/01/17 1116 Pain Assessment Pain Context Therapy Assessment Prior to Treatment Pain Assessment NRS 0-10 Pain Score 0 - No pain Transfer 1 Transfer to 1 Stand Transfer From 1 Sit Technique 1 Sit to stand Transfer Level of Assistance 1 Modified Independent Trials/Comments 1 to fww Transfers 2 Transfer to 2 Sit Transfer From 2 Stand Technique 2 Stand to sit Transfer Level of Assistance 2 Modified Independent Trials/Comments 2 from fww Transfers 3 Transfer to 3 Car Transfer From 3 Stand Technique 3 Ambulatory Transfer Level of Assistance 3 Contact Guard Trials/Comments 3 cues for technique; daughter ocmpletes transfer with pt Transfers 4 Transfer to 4 Floor Transfer From 4 Stand Technique 4 Stand to sit Transfer Level of Assistance 4 Minimal Assistance Trials/Comments 4 min assist for getting from floor to quadruped position then contact guard assistance for the remainder of activity. pt tolerates well without complaints. daughter present and was trained on technique, daughter provided minimal assistance for getting pt to standing positon. use ofmat for upper extremity pushing to assist Ambulation Surface Even surface;Indoor Assistive Device RW;Cane Ambulation Level of Assistance Close Supervision Distance (feet) 200 ft Gait Analysis ambulates 200 feet with fww and clsoe supervision. gait deviaiotns include dec joseilne dec step length. Ambulates 200 feet with single point cane and contact guard assistance for safety. gait deviations include dec joseline dec step length, slightly unsteady but without any losses of balance this session Stairs Rails Left Assistive Device Single point cane Stairs Level of Assistance Contact Guard Number of Steps 3 Stairs Height of Step 6-inch Stairs Analysis asc/desc 3 6 inch steps with rail and spc and contact gaurd assistance, step to pattern, inc time to complete Curb Assistive device RW;Cane Curb Level of Assistance Contact Guard Curb Height 2 inch;6 inch Curb Comment asc/desc 2 and 6 inch curb with spc and with fww on 2 separate trials with close supervision for walker and cga for cane. Activity tolerance Activity Type Standing Activity Endurance Good Compromised ability to maintain sitting or standing? Yes Outcomes PT Treatment Outcomes: Safety device reapplied;Patient tolerated treatment well;Patient is progressing toward STG PT Summary: pt's family present for training (daughter, son in law and son). daughter dons/doffs gait belt,ambulates with pt with walker and cane, performs car transfer, elevaitons on steps and curb,floor transfer with pt. both daughter and pt deny any questions or concerns at this time. Discussedsafety and fall prevention with all family and with pt. PT Summary Plan of Care Continue with current plan of care Individual (PT) Time In 1116 Time Out 1201 Total Time with Patient (Min) 45 min Missed Minutes Missed Minutes 0 Bertha Dawn, PT 10/01/2017, 3:45 PM * OT Treatment Note - Shanae Chambers OT - 10/01/2017 3:29 PM CDT 10/01/17 1300 Pain Assessment Pain Context Therapy Assessment Prior to Treatment Pain Assessment NRS 0-10 Pain Score 0 - No pain Bathing Bathing Comments educated family on use of wash mitt Toilet Transfers Toilet Transfer Close Supervision Toilet Transfer To Standard toilet Toilet Transfer From Stand Toilet Transfer Technique Ambulatory Toilet Transfers Comments using ww and grab bar to simulate placement of coutner top at home, pt daughter provides SBA Tub Transfers Tub Transfer Contact Guard Tub Transfer to Standing Tub Transfer From Stand Tub Transfer Technique Ambulatory Tub Transfers Comments Pt family expresses concern with bathroom setup and having a garden tub, which is a tub with a wider ledge and a step to get into. Discussed having pt sit on wider ledge of tubthen swing LEs into tub stand using grab bars and transfer to showre chair. Pt demos understanding on narrow ledge of standard tub shower and pt daughter provides CGA with cues for positioning from therapist after demonstration. Pt and family are educated on recommendation to obtain shower chair and at least two grab bars at [place] and they are agreeable. Bed, Chair, Wheelchair Transfers Bed, Chair, Wheelchair Transfer Close Supervision Bed/Chair Transfer to Wheelchair Bed/Chair Transfer from Stand Bed/Chair Transfer Technique Stand pivot;Stand to sit;Sit to stand Bed/Chair Transfer Status With stand by assist Assistive Devices Used Walker Bed/Chair Transfer Comments cues for safe hand placement for optimal force production. discussed use of chairs that are firm with arm rests for ease of transfers and they are agreeable. Pt completes bed mobility sit to and from supine on flat bed with simulated bed height from home with independence. She completes functional mobility to and from therapy gym with approximately 200ft with SBA provided by daughter using juliann Neuromuscular Reducation Neuromuscular Narrative Pt and family are educated on and then pt demos understanding of RUE AROM HEP in all planes with handout provided x 20 reps with recommendation to complete 3-5 times per day to improve RUE strength and overall endurance for functional transfers and independence with self care skills. They are educated to utilize R UE functionally as much as possible daily to improve its use (i.e. eating, handwriting, meaningful occupations of board games, sorting coins, etc). Pt is also issued deck of cards to work with R UE in flipping cards Other Interventions Narrative: Pt and family (daughter, son in law, and son) are educated on general home safety concerns including to remove throw rugs to prevent tripping during functional mobility within the home, keeping items within a reachable height, keeping a night light in bedroom and bathroom, and moving clutter from walkways. They are agreeable and handout is provided. Pt and family are educated on recommendation to obtain assist with all meal prep, med management, housework, and finances due to poor standing balance, decreased endurance, and decreased safe reasoning skills to ensure pt safety and they are agreeable. Pt and family are educated on pts current functional status and level of assist required to ensure pt greatest independence and safety. They are educated on recommendation to provide pt with 24/7 assist at home as pt is unsafe to complete transfers and self care independently and they are agreeable, pt daughter reports staying home 24/7 as stay at home mother and she states she can assist pt as necessary. Treatment, Outcomes, and Plan OT Narrative: Pt demos good progress with transfers, R UE HEP, and endurance. POC to continue addressing R UE function, balance, and ADL OT Treatment Outcomes: Safety device reapplied;Patient tolerated treatment well;Patient is progressing toward STG(s) OT Summary Plan of Care Continue with current plan of care Individual (OT) Time In 1300 Time Out 1430 Breaks/Pauses (Min) 0 mins Total Time with Patient (Min) 90 min Missed Minutes Missed Minutes 0 SHANAE CHAMBERS OT 10/01/2017 3:29 PM * [employer] Treatment Note - Inge Vega - 10/01/2017 12:15 PM CDT 10/01/17 1030 Patient Subjective Report Patient Subjective Report Pt seen alert and in chair; agreeable to treatment. Pain Assessment Pain Context Therapy Assessment Prior to Treatment Pain Assessment None/denies pain Daily Treatment Cognitive Communication Basic attention;Short-term memory;Speed of processing;Organization;Planningand sequencing Treatment Outcome and Plan of Care ST Narrative: Pt independently recalled details of morning and previous days as well as who would be coming to visit today. Pt recalled 3/3 details of an appointment after 10 minute delay with minimal assistance. Pt completed sequencing task to address attention and thought organization with 89% accuracy with minimal assistance. Pt identified similarities between two words to address processing, thought organization, and reasoning with 76% accuracy supervisory assistance. Pt required minimal tomoderate cues to attend to constraints of task. Recommend to continue current plan of care. *Pt taken to PT. ST Session Outcomes Tolerated treatment well;Patient/family education progressing;Progressing toward STGs ST Summary Plan of Care Continue with current plan of care Individual (ST) Time In 1030 Time Out 1115 Total Time with Patient (Min) 45 min Missed Minutes Missed Minutes 0 INGE VEGA Cosigned by ST Uyen at 10/01/2017 12:16 PM CDT * Plan of Care - Kasey Cruz RN - 09/30/2017 6:35 PM CDT Bowel Incontinence ??? Perineal Skin Integrity is Maintained or Improved Progressing Case Management Discharge Goals ??? Identify patient's discharge goals Progressing ??? Coordinate Safe Discharge Plan Progressing ??? Work with the treatment team to assess caregiver capability Progressing Discharge Planning ??? Discharge to home or other facility with appropriate resources Progressing ??? 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 Free from fall injury Progressing Infection ??? Absence of infection and prevention of transmission during hospitalization Progressing Knowledge Deficit ??? Patient and/or family demonstrate readiness to learn Progressing ??? Patient and/or family verbalizes understanding of education, and/or performs desired skill Progressing Knowledge Deficit ??? Patient/family/caregiver demonstrates understanding of disease process, treatment plan, medications, and discharge instructions Progressing Potential for Compromised Skin Integrity ??? Skin integrity is maintained or improved Progressing ??? Nutritional status is improving Progressing Urinary Incontinence ??? Perineal skin integrity is maintained or improved Progressing * OT Treatment Note - Prema Beck, OT - 09/30/2017 3:55 PM CDT 09/30/17 1302 Pain Assessment Pain Context Therapy Assessment Prior to Treatment Pain Assessment NRS 0-10 Pain Score 0 - No pain Pre-therapy pain intervention required Patient expressed pain is tolerable/able to proceed Pain Evaluation and Follow-up Response to Therapy Interventions Improved functional status Pain Reassessment No pain Nursing notified of patient's pain assessment Not indicated - pain score 2 or less Grooming Grooming Setup Grooming Where Assessed Standing at sink Grooming Comments Patient able to comb hair with supervision standing at sink, but not able to squeeze out denture adhesive onto dentures (therapist not able to either, tube was malfunctioning). Therapist cut end of tube and applied once Pt seated and therapist able to obtain scissors. Once cream applied Pt able to put dentures in mouth no assist. Bathing Bathing Comments Verbal cues and close stand by/supervision for 10/10 tasks. Using shower seat and grab bars. Toileting Toileting Close Supervision Toileting Where Assessed Toilet Toilet Comments grab bars Upper Body Dressing Dressing Upper Body Minimal Assistance Upper Body Dressing Where Assessed Sitting in chair Upper Body Dressing Comments Assisted with 1/16 parts of UB dressing. doffed and donned bra and pulll over shirt. Pt was able to fasted the clasps of bra but had gotten the straps twisted, not able to correct herself once one unless starting all over with task, and requested assist out of frustration. . Lower Body Dressing Dressing Lower Body Close Supervision Lower Body Dressing Where Assessed Sitting in chair Lower Body Dressing Comments Able to complete 20/20 tasks herself given only supervision for safety Toilet Transfers Toilet Transfer Close Supervision Toilet Transfer Technique Ambulatory Toilet Transfers Comments walker. grab bars Shower Transfers Shower Transfer Close Supervision Shower Transfer to Shower seat with back Shower Transfer Technique Ambulatory Shower Transfers Comments use of walker and grab bar. Other Interventions Narrative: FINE MOTOR/HANDWRITING: Patient worked on handwriting tasks with built up handle on pen.Able to technical publications writer her name legibly with extended time and whole arm movements. Demonstrated isolated finger movements to compelte tasks, with following exercises. Demonstrated in room finger movements to complete (finger abd/add, tapping on table, rolling and flipping pen in hand). Treatment, Outcomes, and Plan OT Narrative: Patient continues to be motivated and engaged during therapy tasks. Observed to be following through in room recommendations for fine motor and in hand manipulation tasks. OT Treatment Outcomes: Patient tolerated treatment well;Patient is progressing toward STG(s) OT Summary Plan of Care Continue with current plan of care Individual (OT) Time In 1302 Time Out 1432 Total Time with Patient (Min) 90 min Missed Minutes Missed Minutes 0 PREMA BECK, OT * [employer] Treatment Note - Inge Vega - 09/30/2017 12:57 PM CDT 09/30/17 0900 Patient Subjective Report Patient Subjective Report Pt seen alert and in chair; agreeable to treatment. (Simultaneous filing. User may not have seen previous data.) Pain Assessment Pain Context Therapy Assessment Prior to Treatment Pain Assessment None/denies pain Daily Treatment Cognitive Communication Short-term memory;Functional problem solving;Planning and sequencing;Compensatory techniques for cognition Treatment Outcome and Plan of Care ST Narrative: Pt independently identified compensatory memory strategies and utilized them with independence. Pt recalled 3/3 details from a message after 20 minute delay with minimal assistance. Pt completed functional problem solving task with 80% accuracy with supervisory to minimal assistance. Pt completed sequencing task to address thought organization with 60% accuracy with independence. Recommend to continue current plan of care. *Pt left in room with call light and phone within reach. ST Session Outcomes Tolerated treatment well;Progressing toward STGs;Independent during session;Minimal cues during session;Patient/family education progressing ST Summary Plan of Care Continue with current plan of care Individual (ST) Time In 0900 Time Out 0945 Total Time with Patient (Min) 45 min Missed Minutes Missed Minutes 0 INGE VEGA Cosigned by ST Uyen at 09/30/2017 12:57 PM CDT * PT Treatment Note - Bertha Dawn, PT - 09/30/2017 12:32 PM CDT 09/30/17 1122 Pain Assessment Pain Context Therapy Assessment Prior to Treatment Pain Assessment NRS 0-10 Pain Score 0 - No pain Transfer 1 Transfer to 1 Stand Transfer From 1 Sit Technique 1 Sit to stand Transfer Level of Assistance 1 Close Supervision Transfers 2 Transfer to 2 Sit Transfer From 2 Stand Technique 2 Stand to sit Transfer Level of Assistance 2 Close Supervision Ambulation Surface Even surface;Indoor Assistive Device RW Ambulation Level of Assistance Close Supervision Distance (feet) 300 ft Gait Analysis ambulates 300 feet with fww and close supervision. gait deviations include dec joseline dec step length, inc trunk flexion; ambualtes 100 feet with single point ncane and close supervision; dec step length and uneven step length on the R, dec R foot clearance but does not drag foot Wheelchair Management Wheelchair Level of Assistance Modified Independent Distance Traveled in Wheelchair (feet) 150 ft Wheelchair Type Manual Left Brakes Level of Assistance Modified Independent Right Brakes Level of Assistance Modified Indepdent Wheelchair Propulsion Surface Even surface;Indoor Propulsion Method Bilateral lower extremity Therapeutic Activities and Neuromuscular Re-education Therapeutic Activities and Neuromuscular Re-education nm re-ed: mat exercises including supine hooklying hip flexion, hooklying R knee extension, sidelying clamx 15 reps and hip abducton with RLE straight x 10 reps with maximal verbal cues; supine slr on RLE x 10 reps with rest during reps, bkfo x 15 reps on each le with cues for core control and activation Outcomes PT Treatment Outcomes: Safety device reapplied;Patient tolerated treatment well;Patient is progressing toward STG PT Summary Plan of Care Continue with current plan of care Individual (PT) Time In 1115 Time Out 1200 Total Time with Patient (Min) 45 min Missed Minutes Missed Minutes 0 Bertha Dawn, PT 09/30/2017, 12:32 PM * OT Treatment Note - Shanae Chambers OT - 09/29/2017 4:25 PM CDT 09/29/17 1345 Pain Assessment Pain Context Therapy Assessment Prior to Treatment Pain Assessment NRS 0-10 Pain Score 0 - No pain Grooming Grooming Comments independence with hand washing after toileting seated at wc level Bathing Bathing Comments declines stating she wishes to work in therapy gym Toileting Toileting Close Supervision Toileting Where Assessed Toilet Toilet Comments use of grab bars Upper Body Dressing Upper Body Dressing Comments declines Lower Body Dressing Lower Body Dressing Comments declines Bed, Chair, Wheelchair Transfers Bed, Chair, Wheelchair Transfer Close Supervision Bed/Chair Transfer to Wheelchair Bed/Chair Transfer from Mat Bed/Chair Transfer Technique Stand pivot Bed/Chair Transfer Status With stand by assist Assistive Devices Used No Device Bed/Chair Transfer Comments In addition to transfer to and from mat/wc with SBA, pt completes functional mobilty approximately 150 feet pushing wc with cues for attention to R LE especially as pt fatigues. She require CGA for balance during task Transfer Training: Narrative: Pt completes transfer training task using 3# weighted ball. She sits edge of mat and completes sit to and from stand transfers with weighted ball held between each hand. While standing shelifts ball overhead. She requires SBA and completes 10 reps x 3 sets. She has no LOB. She requires cues for form and cues to synchronize stand with lifting ball overhead. She demos good strength in lifting ball with R UE in shoulder flexion. Task completed to improve core strength and trunk stability as well as force production for functional transfers and dynamic standing balance during self care skills Neuromuscular Reducation Neuromuscular Narrative Pt completes R UE coordination and neuro re-education task well. She participates in pouring water from various containers with R UE and stabilizing cup being poured into withLUE. She pours from milk gallon, to Styrofoam cup, to large glass, to small glass and then to coffee cup x 2 trials in same sequence with spillage noted x 2 instances during task due to poor R UE complex motor coordination and planning. She demos good motivation with task and improved functional use of R UE specifically with prolonged grasp and wrist movements. Next pt uses purdue pegboard to place small rods then washes into board x 12 minutes with increased time for in hand manipulation and neat pincher grasp for success with task. Task complete to improve functional use of R UE and R UE FMC for self care skills specifically fasteners such as bra. Other Interventions Narrative: COGNITION: Pt participates in basic sequencing and categorization task ([employer] it [employer]). She demos good new learning during 12 part task and demos ability to scan and sequence proper patterns. She requires cues for 2/12 items due to impaired attention to detail. Pt then uses same task to complete basic in head addition with 100% accuracy and good ability to follow through with new learning without cues. She continues to demo deficits with complex reasoning skills. Next pt completes basic sequencing pictures with 100% accuracy on sequencing simple meal prep task of cooking an egg. She requires cues for attention to detail with laundry (washer to dryer) sequencing task with attention to type of machine Treatment, Outcomes, and Plan OT Narrative: Pt demos good progress with R UE function, basic cognitive skills and functional transfers. POC to continue addressing balance, R UE strength, and IADL safety OT Treatment Outcomes: Safety device reapplied;Patient tolerated treatment well;Patient is progressing toward STG(s) OT Summary Plan of Care Continue with current plan of care Individual (OT) Time In 1345 Time Out 1517 Breaks/Pauses (Min) 2 mins (attended team conference [phone]) Total Time with Patient (Min) 90 min SHANAE CHAMBERS OT 09/29/2017 4:25 PM * [facility] Treatment Note - Inge Vega - 09/29/2017 2:57 PM CDT 09/29/17 1030 Patient Subjective Report Patient Subjective Report Pt seen alert and in chair; agreeable to treatment. Pain Assessment Pain Context Therapy Assessment Prior to Treatment Pain Assessment None/denies pain Daily Treatment Cognitive Communication Immediate memory;Organization;Functional problem solving;Compensatory techniques for cognition Treatment Outcome and Plan of Care ST Narrative: Pt completed paragraph recall with 56% accuracy with minimal assistance. Pt completedbasic problem solving questions with 80% accuracy with minimal assistance. Pt completed identifyingsimilarities between two words task to attend to thought organization with 65% accuracy with minimal assistance. Noted improvement attending to constraints of task with supervisory assistance. Recommend to continue current plan of care. *Pt left in room with call light and phone within reach. ST Session Outcomes Tolerated treatment well;Progressing toward STGs;Minimal cues during session;Patient/family education progressing ST Summary Plan of Care Continue with current plan of care Individual (ST) Time In 1030 Time Out 1115 Total Time with Patient (Min) 45 min Missed Minutes Missed Minutes 0 INGE VEGA Cosigned by ST Uyen at 09/29/2017 3:01 PM CDT * Plan of Care - Lisseth Child RN - 09/29/2017 2:01 PM CDT Problem: Case Management Discharge Goals Goal: Identify patient's discharge goals Outcome: Progressing Goal: Coordinate Safe Discharge Plan Outcome: Progressing Goal: Work with the treatment team to assess caregiver capability Outcome: Progressing * PT Treatment Note - Bertha Dawn, PT - 09/29/2017 12:28 PM CDT 09/29/17 1126 Pain Assessment Pain Context Therapy Assessment Prior to Treatment Pain Assessment NRS 0-10 Pain Score 0 - No pain Transfer 1 Transfer to 1 Stand Transfer From 1 Sit Technique 1 Sit to stand Transfer Level of Assistance 1 Close Supervision Trials/Comments 1 to fww Transfers 2 Transfer to 2 Sit Transfer From 2 Stand Technique 2 Stand to sit Transfer Level of Assistance 2 Contact Guard Trials/Comments 2 with spc Ambulation Surface Even surface;Indoor Assistive Device RW;Cane Ambulation Level of Assistance Close Supervision;Contact Guard Distance (feet) 300 ft Gait Analysis ambulates 200 feet with fww and close supervision and then immediately after ambulates 100 feet with single point cane. gait deviaitons include dec joseline dec step length, inc trunk flexion, with spc pt ambulates slower and more rigid. Wheelchair Management Wheelchair Level of Assistance Modified Independent Distance Traveled in Wheelchair (feet) 150 ft Wheelchair Type Manual Left Brakes Level of Assistance Modified Independent Right Brakes Level of Assistance Modified Indepdent Wheelchair Propulsion Surface Even surface;Indoor Propulsion Method Bilateral lower extremity Wheelchair Analysis inc time to complete Activity tolerance Activity Type Standing Activity Endurance Good Compromised ability to maintain sitting or standing? Yes Activity Comment requires rest breaks throughout session Therapeutic Activities and Neuromuscular Re-education Therapeutic Activities and Neuromuscular Re-education sit to stand x 10 blocked repetitions withoutUE use to improve ble strength and endurance, standing ble exercises including: hip abduction without toe tap while abducted, hip flexion, knee flexion, mini squats x 10 reps for all without rest between and with use of single point cane. ambulates through step ladder x 4 trials with cga and single point cane Outcomes PT Treatment Outcomes: Patient tolerated treatment well;Safety device reapplied;Patient is progressing toward STG PT Summary Plan of Care Continue with current plan of care Individual (PT) Time In 1118 Time Out 1203 Total Time with Patient (Min) 45 min Missed Minutes Missed Minutes 0 Bertha Dawn, PT 09/29/2017, 12:29 PM * Plan of Care - Mata Downs RN - 09/29/2017 10:48 AM CDT Fall Safety ??? Free from fall injury Progressing * Plan of Care - Mata Downs RN - 09/29/2017 10:48 AM CDT Fall Safety ??? Free from fall injury Progressing * Plan of Care - Issa Mooney RN - 09/29/2017 4:01 AM CDT Bowel Incontinence ??? Perineal Skin Integrity is Maintained or Improved Progressing Case Management Discharge Goals ??? Identify patient's discharge goals Progressing ??? Coordinate Safe Discharge Plan Progressing ??? Work with the treatment team to assess caregiver capability Progressing Discharge Planning ??? Discharge to home or other facility with appropriate resources Progressing ??? 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 Free from fall injury Progressing Infection ??? Absence of infection and prevention of transmission during hospitalization Progressing Knowledge Deficit ??? Patient and/or family demonstrate readiness to learn Progressing ??? Patient and/or family verbalizes understanding of education, and/or performs desired skill Progressing Knowledge Deficit ??? Patient/family/caregiver demonstrates understanding of disease process, treatment plan, medications, and discharge instructions Progressing Potential for Compromised Skin Integrity ??? Skin integrity is maintained or improved Progressing ??? Nutritional status is improving Progressing Urinary Incontinence ??? Perineal skin integrity is maintained or improved Progressing * PT Treatment Note - Bertha Dawn, PT - 09/28/2017 3:54 PM CDT 09/28/17 9211 Pain Assessment Pain Context Therapy Assessment Prior to Treatment Pain Assessment NRS 0-10 Pain Score 0 - No pain Transfer 1 Transfer to 1 Stand Transfer From 1 Sit Technique 1 Sit to stand Transfer Level of Assistance 1 Close Supervision Trials/Comments 1 to spc and to fww Transfers 2 Transfer to 2 Sit Transfer From 2 Stand Technique 2 Stand to sit Transfer Level of Assistance 2 Close Supervision Trials/Comments 2 from spc and fww Transfers 3 Transfer to 3 Floor Transfer From 3 Stand Technique 3 Stand to sit Transfer Level of Assistance 3 Minimal Assistance Trials/Comments 3 using mat for assist if needed, step by step cues needd Ambulation Surface Even surface;Indoor Assistive Device RW;Cane Ambulation Level of Assistance Close Supervision;Contact Guard Distance (feet) 200 ft Gait Analysis ambulates 200 feet with fww and close supervision, no lob or safety issues noted. ambulates 140 feet with single point cane and contact guard assitance for safety, one instasnce of verbal cues for clearing R foot required. gait deviaiton sinclude dec joseline dec step lenght, inc trunkflexion, slightly uneven step lengths Curb Assistive device RW Curb Level of Assistance Contact Guard Curb Height 2 inch;6 inch Curb Comment asc/desc 2 inch and 6 inch curb with fww and cga with verbal cues for safety Wheelchair Management Wheelchair Level of Assistance Modified Independent Distance Traveled in Wheelchair (feet) 150 ft Wheelchair Type Manual Left Brakes Level of Assistance Modified Independent Right Brakes Level of Assistance Modified Indepdent Wheelchair Propulsion Surface Even surface;Indoor Propulsion Method Bilateral lower extremity Wheelchair Analysis inc time to complete Activity tolerance Activity Type Standing Activity Endurance Good Compromised ability to maintain sitting or standing? Yes Therapeutic Activities and Neuromuscular Re-education Therapeutic Activities and Neuromuscular Re-education sit to stand x 5 blocked repetitions Outcomes PT Treatment Outcomes: Safety device reapplied;Patient tolerated treatment well;Patient is progressing toward STG PT Summary: pt initially anxious about floor transfer, but with step by step cues, able to completeand denies any anxiety after completing floor transfer. denies pain with rue or rle with any activity. progressing well. PT Summary Plan of Care Continue with current plan of care Individual (PT) Time In 1300 Time Out 1345 Total Time with Patient (Min) 45 min Missed Minutes Missed Minutes 0 Bertha Dawn, PT 09/28/2017, 3:54 PM * Team Conference - Lisseth Child RN - 09/28/2017 3:20 PM CDT Team Conference Note Date: 09/28/2017 Time: 3:20 PM Patient Name: Maria Long Date of : 1960 Sex: Female Room/Bed: 321/321-1 Payor Info: No coverage found. Admit Date/Time: 09/15/2017 7:26 PM Patient Active Problem List Diagnosis Date Noted ??? Essential hypertension 09/15/2017 ??? Diabetes mellitus without mention of complication, type II or unspecified type, uncontrolled 09/15/2017 ??? Hemiplegia affecting right dominant side 09/15/2017 ??? Dysarthria 09/15/2017 ??? Dyslipidemia with high density lipoprotein below reference range and triglyceride above reference range due to type 2 diabetes mellitus 09/15/2017 ??? Multiple lacunar infarcts 09/15/2017 ??? Morbid obesity 09/15/2017 Team Members Present: Attendees: Yue Reed MD, Lisseth Child RN, Shanae Chambers, OT, Mata Downs RN, Bertha Dawn, PT, Carlos A Sherwood, PharmD, Other (comment), ST Uyen (Dr Ellis, PHD) Patient/Family Present: Patient Present: No Patient's Family Present: No Anticipated Discharge 10/06/2017 Discharge Plan: Medications: Current Facility-Administered Medications: ??? aspirin EC tablet 81 mg, 81 mg, Oral, Once a day, Yue Reed MD, 81 mg at 09/28/17 0858 ??? atorvastatin (LIPITOR) tablet 40 mg, 40 mg, Oral, Nightly, Yeu Reed MD, 40 mg at 112 ??? clotrimazole (LOTRIMIN) 1 % cream, , Topical, 2 times per day, Yue Reed MD ??? dextrose (GLUTOSE) 40 % oral gel 15 g, 15 g, Oral, PRN, Yue Reed MD ??? dextrose 5 % and sodium chloride 0.45 % infusion, 50 mL/hr, Intravenous, PRN, Yue Reed MD ??? dextrose 50 % solution 25 g, 25 g, Intravenous, PRN, Yue Reed MD ??? glimepiride (AMARYL) tablet 4 mg, 4 mg, Oral, Daily with breakfast, Yue Reed MD, 4 mg at 09/28/17 0858 ??? glucagon (human recombinant) injection 1 mg, 1 mg, Intramuscular, PRN, Yue Reed MD ??? griseofulvin (JOSELITO-PEG) tablet 250 mg, 250 mg, Oral, BID PC, Yue Reed MD, 250 mg at 09/28/17 0859 ??? lactulose (CHRONULAC) 10 GM/15ML solution 30 g, 30 g, Oral, Daily PRN, Yue Reed MD, 30 g at 09/23/17 1730 ??? metFORMIN (GLUCOPHAGE) tablet 500 mg, 500 mg, Oral, BID with meals, Yue Reed MD, 500 mg at 09/28/17 0858 ??? senna (SENOKOT) tablet 8.6 mg, 8.6 mg, Oral, Nightly, Yue Reed MD, 8.6 mg at 09/27/17 2113 Pharmacy: Nursing Team Conference: Bladder Continent: Continent Bowel Continent: Continent Pain: Patient denies pain Nutrition Intake: Oral Respiratory O2 Delivery System: None Respiratory Interventions: None Skin Intact: Rash Skin Interventions: Weight shift/Turned respositioned every 2 hours Wound Rx: None (Rash) Safety Status: Good safety awareness Safety Interventions: Performed rounding Cognitive Orientation: Person;Place;Time;Date Pain Issues: None Educational Topics: Glucose control Patient-Family barriers to learning: None Is patient on dialysis?: No Physical Therapy Weekly Progress Note: PT Overall Functional Status: Ms. Long was just evaluated this session she currently: TRANSFERS: sit to stand with close supervision (improved from minimal assistance). GAIT: Ambulates 200 feet with front wheeled walker and close superivsion (improve dfrom 40 feet with fornt wheeled walker withhand splint and mnimal assistnace and 20 feet iwth single point cane and minimal assistance). ELEVATIONS: ascends/descends 1 4 inch step with minimal assistance. WHEELCHAIR: PRopels manaual wheelchair 150 feet with modified independence (improved from supervision). She would benefit from continued skilled PT per POC to maximize safety,functional abiltiies, and independence. (09/28/171236) Facilitating Factors in Goal Achievement: Patient understanding and knowledge, Patient compliance, Patient motivation, Use of compensatory strategies, Improved safety awareness, Improved functional mobility, Improved strength (09/28/171248) Barriers: Strength limitations, Balance deficits, Motor control deficits, Diminished endurance (09/28/171248) Short Term Goals: Transfer Goals - Short Term Transfer Goals - Short Term: Short Term 3 (09/28/171246) Transfer Short Term Goal 1: sit to stand with contact guard assistance (09/28/171246) Transfer Short Term Goal 1 Status: Achieved (09/28/171246) Transfer Short Term Goal 2: stand pivot with contact guard assistance (09/28/171246) Transfer Short Term Goal 2 Status: Achieved (09/28/171246) Transfer Short Term Goal 3: sit to stand and stand pivot with modified indpeendence with front wheeeld walker (09/28/171246) Transfer Short Term Goal 3 Status: Established (09/28/171246) Expected Achievement Date: 10/04/17 (09/28/171246) Bed/Mat Mobility Goals - Short Term Bed/Mat Mobility Goals - Short Term: Short Term 2 (09/28/171246) Bed/Mat Mobility Short Term Goal 1: supine to and from sit with supervision (09/28/171246) Bed/Mat Mobility Short Term Goal 1 Status: Achieved (09/28/171246) Bed/Mat Mobility Short Term Goal 2: supine to and from sit with independence (09/28/171246) Bed/Mat Mobility Short Term Goal 2 Status: Established (09/28/171246) Expected Achievement Date: 10/04/17 (09/28/17 1247) Gait Goals - Short Term Gait Goals - Short Term: Short Term Goal 1 (09/16/17 1608) Gait Short Term Goal 1: Ambulate 100 feet with front wheeled walker with splint and contact guard assistance. (09/28/17 1248) Gait Short Term Goal 1 Status: Established (09/16/17 1608) Gait Short Term Goal 2: Ambulate 150 feet with front wheeled walker with modified independence (09/28/17 1248) Gait Short Term Goal 2 Status: Established (09/28/17 1248) Expected Achievement Date: 10/04/17 (09/28/17 1248) Elevation Goals - Short Term Elevation Goals - Short Term: Short Term 1, Short Term 2 (09/16/17 1608) Elevation Short Term Goal 1: ascend/descend curb step with front wheeeld walker and minimal assistance (09/28/17 1248) Elevation Short Term Goal 1 Status: Established (09/16/17 1608) Elevation Short Term Goal 2: ascend/descedn 4 4 inch steps with one rail and contact guard assistance (09/28/17 1248) Elevation Short Term Goal 2 Status: Established (09/16/17 1608) Expected Achievement Date: 10/04/17 (09/28/17 1248) Wheelchair Management and Propulsion Goals - Short Term Wheelchair Management and Propulsion Goals - Short Term: Short Term 1 (09/16/17 1609) Wheelchair Management and Propulsion Short Term Goal 1: Propel manaul wheelchair 150 feet modified independent (09/28/17 1248) Wheelchair Management and Propulsion Short Term Goal 1 Status: Achieved (09/28/17 1248) Expected Achievement Date: 09/22/17 (09/16/17 1609) Care Home Goals: Transfer Goals - Curb Supervisor Transfer Goals - Care Home: prison 1, intermodal customer service 2 (09/16/17 1602) Transfer Curb Supervisor Goal 1: sit to stand with modified independence (09/16/17 1602) Transfer Curb Supervisor Goal 1 Status: Established (09/16/17 1602) Transfer Curb Supervisor Goal 2: stand pviot with modified idnependence (09/16/17 1602) Transfer Curb Supervisor Goal 2 Status: Established (09/16/17 1602) Expected Achievement Date: 10/07/17 (09/16/17 1602) Bed/Mat Mobility Goals - Curb Supervisor Bed/Mat Mobility Goals - Curb Supervisor: Curb Supervisor 1 (09/16/17 1603) Bed/Mat Mobility Care Home Goal 1: supine to and from sit with independence (09/16/17 1603) Bed/Mat Mobility Care Home Goal 1 Status: Established (09/16/17 1603) Expected Achievement Date: 10/07/17 (09/16/17 1603) Gait Goals - Care Home Gait Goals - Curb Supervisor: Care Home Goal 1 (09/16/17 1603) Gait Curb Supervisor Goal 1: Ambulate 150 feet with least restrictive assistive device and modified independence (09/16/17 1603) Gait Care Home Goal 1 Status: Established (09/16/17 1603) Expected Achievement Date: 10/07/17 (09/16/17 1603) Elevation Goals - Curb Supervisor Elevation Goals - Curb Supervisor: Curb Supervisor 1, Curb Supervisor 2 (09/16/17 1603) Elevation Curb Supervisor Goal 1: ascend/descend 1 curb step with modified independence (09/16/17 1603) Elevation Care Home Goal Status: Established (09/16/17 1603) Elevation Curb Supervisor Goal 2: sacend/descend 4 steps with rail and supervision (09/16/17 1603) Elevation Care Home Goal 2 Status: Established (09/16/17 1603) Expected Achievement Date: 10/07/17 (09/16/17 1603) Wheelchair Management and Propulsion Goals - Curb Supervisor Wheelchair Management and Propulsion Goals - Curb Supervisor: Curb Supervisor 1 (09/16/17 1604) Wheelchair Management and Propulsion Curb Supervisor Goal 1: Propel manual wheelchair 150 feet with supervision (09/16/17 1604) Wheelchair Management and Propulsion Care Home Goal 1 Status: Established (09/16/17 1604) Expected Achievement Date: 09/22/17 (09/16/17 1604) Other PT Curb Supervisor Goals Other Goals - Curb Supervisor: Care Home 1 (09/16/17 1605) Other Care Home Goal 1: PASS to be completed (09/16/17 1605) Other Curb Supervisor Goal 1 Status: Established (09/16/17 1605) Expected Achievement Date: 10/07/17 (09/16/17 1605) Occupational Therapy Weekly Progress Note: OT Overall Functional Status: Ms Long is making good progress in occupational therapy and current functional status is as follows: EATING: with modified independence (improved from setup) GROOMING: with setup and increased time (improved from minimal assistance for denture care seated) BATHING:with stand by assistance using shower chair and grab bars with wash mitt (improved from contact guard assistance using shower chair and grab bars) UPPER BODY DRESSING: with setup and increased time with minimal assistance for bra fastener LOWER BODY DRESSING: with stand by assistance (improved fromminimal assistance) TOILETING: with stand by assistance using grab bars (improved from maximal fluctuating to moderate assistance) BED/CHAIR TRANSFER: with stand by assistance using wheeled walker (improved from minimal assistance) TOILET TRANSFER: with stand by assistance using grab bars (improvedfrom minimal assistance) TUB/SHOWER TRANSFER: with stand by assistance using grab bars (improved from minimal assistance) . In addition to progress with ADLs and transfers, she has also made progresswith R UE functional grasp and release, R UE ROM especially at shoulder, static standing balance and tolerance, and moderate level functional cognitive skills during IADLs. Continued impairments include decreased R UE functional use due to weakness and decreased coordination, decreased high level cognitive skills impeding independence with IADLs, decreased dynamic standing balance due to R knee instability. Ms Long will benefit from continued inpatient occupational therapy to improve independence with ADLs and transfers to ensure safe discharge to least restrictive environment. (09/28/17 105) Facilitating Factors in Goal Achievement: Patient understanding and knowledge, Patient compliance, Patient motivation, Use of compensatory strategies, Improved cognition, Improved functional mobility, Improved strength, Improved safety awareness, Improved ROM (09/28/17 1102) Barriers: Strength limitations, Balance deficits, Motor control deficits, Cognitive deficits, Diminished endurance (09/28/17 1102) Short Term Goals: Eating Short Term Goals Eating Goals - Short Term: Short Term Goal 1 (09/28/17 105) Eating Short Term Goal 1: with modified independence (09/28/17 105) Eating Short Term Goal 1 Status: Achieved (09/28/17 105) Expected Achievement Date: 09/28/17 (09/21/17719) Grooming Short Term Goals Grooming Goals - Short Term: Short Term Goal 1, Short Term Goal 2 (09/28/17 105) Grooming Short Term Goal 1: with setup seated (09/28/171058) Grooming Short Term Goal 1 Status: Achieved (09/28/171058) Grooming Short Term Goal 2: with modified independence standing at sink (09/28/171058) Grooming Short Term Goal 2 Status: Established (09/28/17 105) Expected Achievement Date: 10/05/17 (09/28/17 105) Bathing Short Term Goals Bathing Goals - Short Term: Bathing Short Term 1, Bathing Short Term 2, Bathing Short Term 3 (09/28/171058) Bathing Short Term Goal 1: with contact guard assistance using grab bars and shower chair () Bathing Short Term Goal 1 Status: Achieved (09/28/171058) Bathing Short Term Goall 2: with stand by assistance using grab bars and shower chair (09/28/171058) Bathing Short Term Goal 2 Status: Achieved (09/28/171058) Bathing Short Term Goal 3: with distant supervision using grab bars and shower chair (09/28/171058) Bathing Short Term Goal 3 Status: Established (09/28/171058) Expected Achievement Date: 10/05/17 (09/28/171058) Upper Body Dressing Short Term Goals Upper Body Dressing Goals - Short Term: Short Term Goal 1, Short Term Goal 2 (09/28/17 1100) UE Dressing Short Term Goal 1: with setup and cues (09/28/17 1100) UE Dressing Short Term Goal 1 Status: Achieved (09/28/17 1100) UE Dressing short term goal 2: with modified independence (09/28/17 1100) UE Dressing Short Term Goal 2 Status: Established (09/28/17 1100) Expected Achievement Date: 10/05/17 (09/28/17 1100) Lower Body Dressing Short Term Goals Lower Body Dressing Goals - Short Term: Short Term Goal 1, Short Term Goal 2, Short Term Goal 3 (09/28/17 1100) LE Dressing Short Term Goal 1: with minimal assistance using hemitechnique (09/28/17 1100) LE Dressing Short Term Goal 1 Status: Achieved (09/28/17 1100) LE Dressing short term goal 2: with contact guard assistance using hemitechnique (09/28/17 1100) LE Dressing Short Term Goal 2 Status: Achieved (09/28/17 1100) LE Dressing Short Term Goal 3: with modified independence using ww (09/28/17 1100) LE Dressing Short Term Goal 3 Status: Established (09/28/17 1100) Expected Achievement Date: 10/05/17 (09/28/17 1100) Toileting Short Term Goals Toileting Goals - Short Term: Short Term Goal 1, Short Term Goal 2, Short Term Goal 3 (09/28/17 1101) Toileting Short Term Goal 1: with maximal assistance using grab bars (09/28/17 1101) Toileting Short Term Goal 1 Status: Achieved (09/28/17 1101) Toileting Short Term Goal 2: with moderate assistance using grab bars (09/28/17 1101) Toileting Short Term Goal 2 Status: Achieved (09/28/17 1101) Toileting Short Term Goal 3: with modified independence using grab bars (09/28/17 1101) Toileting Short Term Goal 3 Status: Established (09/28/17 1101) Expected Achievement Date: 10/05/17 (09/28/17 1101) Transfer Short Term Goals Transfer Goals-Short Term: Short Term 2, Short Term 1, Short Term 3 (09/28/17 1102) Transfer Short Term Goal 1: BED/CHAIR: with modified independence using wheeled walker (09/28/17 1102) Transfer Short Term Goal1 Status: Established (09/28/17 1102) Transfer Short Term Goal 2: TOILET: with modified independence using grab bars (09/28/17 1102) Transfer Short Term Goal 2 Status: Established (09/28/17 1102) Transfer Short Term Goal 3: TUB/SHOWER: with modified independence using grab bars (09/28/17 1102) Transfer Short Term Goal 3 Status: Established (09/28/17 1102) Expected Achievement Date: 10/05/17 (09/28/17 1102) Care Home Goals: Eating Curb Supervisor Goals Eating Goals - Care Home: Care Home Goal 1 (09/16/17 1034) Eating Curb Supervisor Goal 1: with modified independence and dentures (09/16/17 1034) Eating Care Home Goal 1 Status: Established (09/16/17 1034) Expected Achievement Date: 10/14/17 (09/16/17 1034) Grooming Curb Supervisor Goals Grooming Goals - Care Home: Grooming Curb Supervisor 1 (09/16/17 1034) Grooming Care Home Goal 1: with modified independence using hemitechnique (09/16/17 1034) Grooming Curb Supervisor Goal 1 Status: Established (09/16/17 1034) Expected Achievement Date: 10/14/17 (09/16/17 1034) Bathing Care Home Goals Bathing Goals - Curb Supervisor: Bathing Care Home 1 (09/16/17 1035) Bathing Care Home Goal 1: with stand by assistance using grab bars (09/16/17 1035) Bathing Care Home Goal 1 Status: Established (09/16/17 1035) Expected Achievement Date: 10/14/17 (09/16/17 1035) Upper Body Dressing Curb Supervisor Goals Upper Body Dressing Goals - Care Home: Curb Supervisor Goal 1 (09/16/17 1035) UE Dressing Curb Supervisor Goal 1: with modified independence using hemitechnique (09/16/17 1035) UE Dressing Curb Supervisor Goal 1 Status: Established (09/16/17 1035) Expected Achievement Date: 10/14/17 (09/16/17 1035) Lower Body Dressing Curb Supervisor Goals Lower Body Dressing Goals - Curb Supervisor: Care Home Goal 1 (09/16/17 1036) LE Dressing Care Home Goal 1: with modified independence using hemitechnique (09/16/17 1036) LE Dressing Curb Supervisor Goal 1 Status: Established (09/16/17 1036) Expected Achievement Date: 10/14/17 (09/16/17 1036) Toileting Curb Supervisor Goals Toileting Goals - Care Home: Curb Supervisor Goal 1 (09/16/17 1036) Toileting Care Home Goal 1: with modified independence using grab bars (09/16/17 1036) Toileting Curb Supervisor Goal 1 Status: Established (09/16/17 1036) Expected Achievement Date: 10/14/17 (09/16/17 1036) Transfer Curb Supervisor Goals Transfer Care Home Goal 1: BED/CHAIR: with modified independence using least restrictive device (09/16/17 1037) Transfer Care Home Goal 1 Status: Established (09/16/17 1037) Transfer Curb Supervisor Goal 2: TOILET: with modified independence using grab bars (09/16/17 1037) Transfer Care Home Goal 2 Status: Established (09/16/17 1037) Transfer Care Home Goal 3: TUB/SHOWER: with stand by assistnace using grab bars (09/16/17 1037) Transfer Care Home Goal 3 Status: Established (09/16/17 1037) Expected Achievement Date: 10/14/17 (09/16/17 1037) Speech Therapy Weekly Progress Note: 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 Long's current functional status is as follows: DIET: Regular and Thin liquids. SWALLOWING STRATEGIES: Upright 90 degrees, small bites/sips, slow rate, monitorright cheek for pocketing and alternation of solids/liquids. COMPREHENSION: Supervisory assist for basic comprehension. WFL for basic conversation and increased amount of assist for complex conversation. EXPRESSION:Supervisory assist for verbal expression. WFL for basic conversation with increased amount of assist for complex conversation. SOCIAL: WFL. Mrs. Long acts appropriately with staff and family members. REASONING: Mildly impaired for basic reasoning tasks. Cues required some of the time for reasoning. Decreased reasoning, thought organization, and attention. MEMORY: Supervisory assist for basic memory tasks. WFL for basic memory tasks requires increased amount of assist for complex and during unfamiliar circumstances. Noted difficulty with delayed recall paragraph recall. PROGRESS: Mrs. Long has demonstrated progress with carryover of novel information, short-term recall, thought organization, functional problem solving, and reasoning. Recommend to continue current plan of care. (09/25/17 3509) Facilitating Factors in Goal Achievement: Patient motivation, Patient compliance, Increased insightinto deficits, Improvement in cognitive skills, Progress to date, Support of other(s) (09/25/17 6926) Barriers: Other (comment) (Cognition) (09/25/17 7759) Short Term Goals: Expression Short Term Goals Expression Goals - Short Term: Short Term 1 (09/16/17 1248) Expression Short Term Goal 1: utilize speech intelligibility strategies at the conversational levelat 100% intelligibility with supervisory assist. (09/25/17 1452) Expression Short Term Goal 1 Status: Achieved (09/25/17 1452) Expected Achievement Date: 09/25/17 (09/25/17 1452) Problem Solving Short Term Goals Problem Solving Goals - Short Term: Short Term 2 (09/25/17 1453) Problem Solving Short Term Goal 1: complete functional problem solving/reasoning tasks at 80% accuracy with min cues. (09/25/17 1453) Problem Solving Short Term Goal 1 Status: Achieved (09/25/17 1453) Problem Solving Short Term Goal 2: complete functional problem solving/reasoning tasks at 80% accuracy with occasional cues (09/25/17 1453) Problem Solving Short Term Goal 2 Status: Established (09/25/17 1453) Expected Achievement Date: 10/02/17 (09/25/17 1453) Memory Short Term Goals Memory Goals - Short Term: Short Term 1 (09/16/17 1250) Memory Short Term Goal 1: complete short term memory tasks at 80% with minimal cues. (Goal met for basic short-term recall; progressing to more complex tasks.) (09/25/17 1456) Memory Short Term Goal 1 Status: Partially Achieved (09/25/17 1456) Expected Achievement Date: 10/02/17 (09/25/17 1456) Additional Cognition Short Term Goals Additional Cognition Goals - Short Term: Short Term 1, Short Term 2 (09/16/17 1252) Additional Cognition Short Term Goal 1: complete thought organization tasks at 80% with minimal cues. (09/25/17 1457) Additional Cognition Short Term Goal 1 Status: Partially Achieved (09/25/17 1457) Additional Cognition Short Term Goal 2: participate in CLQT, as appropriate. (09/18/17 1443) Additional Cognition Short Term Goal 2 Status: Achieved (09/18/17 1443) Expected Achievement Date: 10/02/17 (09/25/17 1457) Swallowing Short Term Goals Swallowing Goals - Short Term: Short Term 1 (09/16/17 1247) Swallowing Short Term Goal 1: tolerate regular solids and thin liquids with less than 10% s/s of aspiration and independent use of swallowing strategies. (09/25/17 1459) Swallowing Short Term Goal 1 Status: Achieved (09/25/17 1459) Expected Achievement Date: 09/25/17 (09/18/17 1444) Care Home Goals: Expression Care Home Goals Expression Goals - Care Home: Care Home 1 (09/16/17 1241) Expression Care Home Goal 1: participate in basic conversation with supervisory fior for use of speech intelligibility strategies and expression of thoughts/ideas. (09/16/17 1241) Expression Curb Supervisor Goal 1 Status: Established (09/16/17 1241) Expected Achievement Date: 09/30/17 (09/16/17 1241) Additional Cognition Curb Supervisor Goals Additional Cognition Goals - Care Home: Care Home 1 (09/16/17 1244) Additional Cognition Care Home Goal 1: participate in daily routines with minimal cues for basic memory and reasoning tasks to safely complete ADLs. (09/16/17 1244) Additional Cognition Curb Supervisor Goal 1 Status: Established (09/16/17 1244) Expected Achievement Date: 09/30/17 (09/16/17 124) Swallowing Curb Supervisor Goals Swallowing Goals - Curb Supervisor: Care Home 1 (09/16/17 124) Swallowing Curb Supervisor Goal 1: tolerate the least restrictive diet with less than 10% s/s of aspiration for safe and adequate consumption of daily meals. (09/16/17 1245) Swallowing Curb Supervisor Goal 1 Status: Established (09/16/17 1245) Expected Achievement Date: 09/30/17 (09/16/17 1245) Respiratory Team Conference: Nutrition Team Conference: Dietary Orders Start Ordered 09/21/17 0808 Adult Diet Therapeutic Diet: Low Fat, Carb Controlled; Carbohydrate Controlled: 5 Carb/75gm/meal (2000 calories); Diet Texture: Regular Bite-Cut; Liquid Consistency: All Liquids - No Restrictions Diet effective now Question Answer Comment Therapeutic Diet: Low Fat Therapeutic Diet: Carb Controlled Carbohydrate Controlled: 5 Carb/75gm/meal (2000 calories) Diet Texture: Regular Bite-Cut Liquid Consistency All Liquids - No Restrictions Place order in third democrat system. Done 09/21/17 0807 Height: 5' 6 (167.6 cm) Admit Weight: 196 lb 6 oz (89.1 kg) Current Weight: 193 lb 3.2 oz (87.6 kg) Body mass index is 31.18 kg/(m^2). Calorie Count: Nutrition Intake: Oral Nutrition Risk: Patient not at nutrition risk Nutrition Recommendations: encourage snacks Nutrition Update: 100% of carb controlled, low fat, diet with 3# weight loss Wound: Wound Rx: None (Rash) Case management: Medically stable Treatment cont to ringworm and add po meds for along with the cream Blood sugars: insulin dc'd on oral meds and montoiring/adjusting still Pain: no c/o voiced Cont of bowel and bladder Diet: regular with thin liquids Tearful and c/o homesick, but see progress with neuropsy Barriers: dif with high level with cog def; balance Right arm/hand good progress Need assist with IALDs DME: shower chair; ww Recommended tent dc for 10/13/17 with HEP Cosigned by Yue Reed MD at 09/28/2017 5:31 PM CDT Associated attestation - Yue Reed MD - 09/28/2017 6:31 PM EDT A team conference was held on 09/28/2017 and included members of the multidisciplinary team identified in the attendance section of this note. Issues related to Ms. Long's status include; Patient Active Problem List Diagnosis ??? Essential hypertension ??? Diabetes mellitus without mention of complication, type II or unspecified type, uncontrolled ??? Hemiplegia affecting right dominant side ??? Dysarthria ??? Dyslipidemia with high density lipoprotein below reference range and triglyceride above reference range due to type 2 diabetes mellitus ??? Multiple lacunar infarcts ??? Morbid obesity Ms. Hernandez progress toward rehabilitation goals, impediments to attaining these goals, and associated revisions to the treatment plans and goals were discussed by the team. Details of this multidisciplinary process are included below. Issues of particular significance at this time regarding progress towards rehabilitation goals and treatment plan include: Patient Active Problem List Diagnosis ??? Essential hypertension ??? Diabetes mellitus without mention of complication, type II or unspecified type, uncontrolled ??? Hemiplegia affecting right dominant side ??? Dysarthria ??? Dyslipidemia with high density lipoprotein below reference range and triglyceride above reference range due to type 2 diabetes mellitus ??? Multiple lacunar infarcts ??? Morbid obesity As discussed during this team conference, I concur with the decisions set forth by the members of the multidisciplinary team. Ms. Long continues to require frequent physician visits and 24 hours per day acute rehabilitation nursing care in order to meet medical needs and progress toward the achievement of the rehabilitation goals. YUE REED MD 09/28/2017 5:30 PM * Plan of Care - Mata Downs RN - 09/28/2017 2:37 PM CDT Fall Safety ??? Free from fall injury Progressing * Plan of Care - Mata Downs RN - 09/28/2017 2:36 PM CDT Fall Safety ??? Free from fall injury Progressing * [employer] Treatment Note - Inge Vega - 09/28/2017 1:53 PM CDT 09/28/17 0900 Patient Subjective Report Patient Subjective Report Pt seen alert in bed; agreeable to treatment. Pain Assessment Pain Context Therapy Assessment Prior to Treatment Pain Assessment None/denies pain Daily Treatment Cognitive Communication Short-term memory;Semi-complex to complex attention;Functional reading for activites of daily living;Organization;Planning and sequencing;Functional problem solving;Compensatory techniques for cognition Treatment Outcome and Plan of Care ST Narrative: Pt independently recalled weekend and name of new grandchild. Pt recalled 3/3 items after a 5-10 minute delay. Pt completed a scheduling activity to attend to thought organization, problem solving, attention, and reasoning with 50% accuracy with moderate to maximal assistance. Pt presented with slow processing speed during task. Pt completed problem solving task with 78% accuracy with minimal assistance. Pt required moderate to maximal assistance to attend to constraints of task. Recommend to continue current plan of care. *Pt left in room with call light and phone within reach. ST Session Outcomes Tolerated treatment well;Progressing toward STGs;Patient/family education progressing;Minimal cues during session;Moderate cues during session;Maximal cues during session ST Summary Plan of Care Continue with current plan of care Individual (ST) Time In 0900 Time Out 0945 Total Time with Patient (Min) 45 min Missed Minutes Missed Minutes 0 INGE VEGA Cosigned by ST Uyen at 09/28/2017 1:54 PM CDT * PT Weekly Progress Note - Bertha Dawn, PT - 09/28/2017 12:49 PM CDT Physical Therapy Weekly Progress Note: PT Overall Functional Status: Ms. Long was just evaluated this session she currently: TRANSFERS: sit to stand with close supervision (improved from minimal assistance). GAIT: Ambulates 200 feet with front wheeled walker and close superivsion (improve dfrom 40 feet with fornt wheeled walker withhand splint and mnimal assistnace and 20 feet iwth single point cane and minimal assistance). ELEVATIONS: ascends/descends 1 4 inch step with minimal assistance. WHEELCHAIR: PRopels manaual wheelchair 150 feet with modified independence (improved from supervision). She would benefit from continued skilled PT per POC to maximize safety,functional abiltiies, and independence. (09/28/17 123) Facilitating Factors in Goal Achievement: Patient understanding and knowledge, Patient compliance, Patient motivation, Use of compensatory strategies, Improved safety awareness, Improved functional mobility, Improved strength (09/28/17 1249) Barriers: Strength limitations, Balance deficits, Motor control deficits, Diminished endurance (09/28/17 1249) Short Term Goals: Transfer Goals - Short Term Transfer Goals - Short Term: Short Term 3 (09/28/17 124) Transfer Short Term Goal 1: sit to stand with contact guard assistance (09/28/17 1247) Transfer Short Term Goal 1 Status: Achieved (09/28/17 124) Transfer Short Term Goal 2: stand pivot with contact guard assistance (09/28/17 124) Transfer Short Term Goal 2 Status: Achieved (09/28/17 124) Transfer Short Term Goal 3: sit to stand and stand pivot with modified indpeendence with front wheeeld walker (09/28/17 1247) Transfer Short Term Goal 3 Status: Established (09/28/17 124) Expected Achievement Date: 10/04/17 (09/28/17 1247) Bed/Mat Mobility Goals - Short Term Bed/Mat Mobility Goals - Short Term: Short Term 2 (09/28/17 1247) Bed/Mat Mobility Short Term Goal 1: supine to and from sit with supervision (09/28/17 1247) Bed/Mat Mobility Short Term Goal 1 Status: Achieved (09/28/17 124) Bed/Mat Mobility Short Term Goal 2: supine to and from sit with independence (09/28/17 1247) Bed/Mat Mobility Short Term Goal 2 Status: Established (09/28/17 1247) Expected Achievement Date: 10/04/17 (09/28/17 1247) Gait Goals - Short Term Gait Goals - Short Term: Short Term Goal 1 (09/16/17 1608) Gait Short Term Goal 1: Ambulate 100 feet with front wheeled walker with splint and contact guard assistance. (09/28/17 1248) Gait Short Term Goal 1 Status: Established (09/16/17 1608) Gait Short Term Goal 2: Ambulate 150 feet with front wheeled walker with modified independence (09/28/17 1248) Gait Short Term Goal 2 Status: Established (09/28/17 1248) Expected Achievement Date: 10/04/17 (09/28/17 1248) Elevation Goals - Short Term Elevation Goals - Short Term: Short Term 1, Short Term 2 (09/16/17 1608) Elevation Short Term Goal 1: ascend/descend curb step with front wheeeld walker and minimal assistance (09/28/17 1248) Elevation Short Term Goal 1 Status: Established (09/16/17 1608) Elevation Short Term Goal 2: ascend/descedn 4 4 inch steps with one rail and contact guard assistance (09/28/17 1248) Elevation Short Term Goal 2 Status: Established (09/16/17 1608) Expected Achievement Date: 10/04/17 (09/28/17 1248) Wheelchair Management and Propulsion Goals - Short Term Wheelchair Management and Propulsion Goals - Short Term: Short Term 1 (09/16/17 1609) Wheelchair Management and Propulsion Short Term Goal 1: Propel manaul wheelchair 150 feet modified independent (09/28/17 1248) Wheelchair Management and Propulsion Short Term Goal 1 Status: Achieved (09/28/17 1248) Expected Achievement Date: 09/22/17 (09/16/17 1609) Curb Supervisor Goals: Transfer Goals - Curb Supervisor Transfer Goals - Care Home: prison 1, intermodal customer service 2 (09/16/17 1602) Transfer Curb Supervisor Goal 1: sit to stand with modified independence (09/16/17 1602) Transfer Care Home Goal 1 Status: Established (09/16/17 1602) Transfer Care Home Goal 2: stand pviot with modified idnependence (09/16/17 1602) Transfer Care Home Goal 2 Status: Established (09/16/17 1602) Expected Achievement Date: 10/07/17 (09/16/17 1602) Bed/Mat Mobility Goals - Curb Supervisor Bed/Mat Mobility Goals - Curb Supervisor: Curb Supervisor 1 (09/16/17 1603) Bed/Mat Mobility Care Home Goal 1: supine to and from sit with independence (09/16/17 1603) Bed/Mat Mobility Curb Supervisor Goal 1 Status: Established (09/16/17 1603) Expected Achievement Date: 10/07/17 (09/16/17 1603) Gait Goals - Care Home Gait Goals - Curb Supervisor: Care Home Goal 1 (09/16/17 1603) Gait Curb Supervisor Goal 1: Ambulate 150 feet with least restrictive assistive device and modified independence (09/16/17 1603) Gait Care Home Goal 1 Status: Established (09/16/17 1603) Expected Achievement Date: 10/07/17 (09/16/17 1603) Elevation Goals - Curb Supervisor Elevation Goals - Curb Supervisor: Curb Supervisor 1, Care Home 2 (09/16/17 1603) Elevation Care Home Goal 1: ascend/descend 1 curb step with modified independence (09/16/17 1603) Elevation Curb Supervisor Goal Status: Established (09/16/17 1603) Elevation Care Home Goal 2: sacend/descend 4 steps with rail and supervision (09/16/17 1603) Elevation Care Home Goal 2 Status: Established (09/16/17 1603) Expected Achievement Date: 10/07/17 (09/16/17 1603) Wheelchair Management and Propulsion Goals - Curb Supervisor Wheelchair Management and Propulsion Goals - Curb Supervisor: Curb Supervisor 1 (09/16/17 1604) Wheelchair Management and Propulsion Curb Supervisor Goal 1: Propel manual wheelchair 150 feet with supervision (09/16/17 1604) Wheelchair Management and Propulsion Curb Supervisor Goal 1 Status: Established (09/16/17 1604) Expected Achievement Date: 09/22/17 (09/16/17 1604) Other PT Care Home Goals Other Goals - Curb Supervisor: Care Home 1 (09/16/17 1605) Other Care Home Goal 1: PASS to be completed (09/16/17 1605) Other Care Home Goal 1 Status: Established (09/16/17 1605) Expected Achievement Date: 10/07/17 (09/16/17 1605) Bertha Dawn, PT 09/28/2017, 12:50 PM * OT Treatment Note - Shanae Chambers OT - 09/28/2017 12:03 PM CDT 09/28/17 1038 Pain Assessment Pain Context Therapy Assessment Prior to Treatment Pain Assessment NRS 0-10 Pain Score 0 - No pain Eating Eating Modified Independent Eating Where Assessed Sitting at table Feeding Comments use of denture Grooming Grooming Setup Grooming Where Assessed Standing at sink Grooming Comments pt stands at sink for 6 min and requires increased time for denture care and cleaning due to poor R UE [facility] [place] Bathing Bathing Comments declines stating she had shower yesterday Toileting Toileting Close Supervision Toileting Where Assessed Toilet Toilet Comments use of grab bars and increased time to don pants over R hip Upper Body Dressing Dressing Upper Body Setup Upper Body Dressing Where Assessed Sitting in chair Upper Body Dressing Comments pt demos ability to don/doff pullover shirt with setup Lower Body Dressing Dressing Lower Body Close Supervision Lower Body Dressing Where Assessed Sitting in chair;Standing Lower Body Dressing Comments pt demos sidnificant improvement with functional use of R UE in don/doff pants over hips, she requires increased time to don socks andshoes and close SBA for balance to complete all aspects of LB dressing Toilet Transfers Toilet Transfer Close Supervision Toilet Transfer To Standard toilet Toilet Transfer From Stand Toilet Transfer Technique Ambulatory Toilet Transfers Comments use of ww and grab bars Bed, Chair, Wheelchair Transfers Bed, Chair, Wheelchair Transfer Close Supervision Bed/Chair Transfer to Bed Bed/Chair Transfer from Wheelchair Bed/Chair Transfer Technique Stand pivot;Sit to stand;Stand to sit;Ambulatory Bed/Chair Transfer Status With stand by assist Assistive Devices Used Walker Bed/Chair Transfer Comments bed mobility with independence. sit to and from stand and functional mobillty within bedroom using ww with close SBA Therapeutic Exercise - Strength Strength Exercise Pt completes R UE strengthening using 1# free weight while seated at edge of mat.She requires cues for proper form and pacing. She completes 10 reps x 1 set in planes of bicep curls, shoulder flexion, protraction/retraction in punching form, tricep extension, abduction/adduction. She demos good motivation with task and noted strength improvements with R UE. Task completed to promote R UE strength for increased independence in meaningful occupations. Neuromuscular Reducation Neuromuscular Narrative Pt completes core strengthening tolerating quadruped position and alternating BUE/Les x 10 reps to each side x 3 sets with minimal rest break between sets and cues for proper form to improve trunk stability and core stability. She demos good sequencing during task without cues. Task completed to increase trunk stability and proximal UE strength for increased independence with dynamic balance for functional transfers and ADLs. Coordination Training Coordination Training Narrative Pt completes FMC training utilizing R UE well with noted improvement in digit extension and wrist control. She demos understanding of yellow theraputty HEP and states she completed her AROM of R UE HEP over the weekend. She then completes task emphasizing R UE FMC, spatial relations and in hand manipulation with small pieces (perfection). She is challenged to remove the 25 pieces she placed within 60 sec and demos ability to remove all the pieces with 5 sec to spare. Task completed to improve functional use of R UE in self care specifically for use of lid management and fasteners. Other Interventions Narrative: COGNITION: Pt completes moderate level complexity deductive reasoning puzzle. She requires mod cues for reasoning and recall of task throughout she demos good new learning and motivation for task completion. She completes handwriting to fill in worksheet with R UE, though handwriting is legible she demos shakiness. Treatment, Outcomes, and Plan OT Narrative: Pt demos good progress with dressing, grooming and hygiene and R UE function. POC to continue addressing balance, L UE strength, and IADL management OT Treatment Outcomes: Safety device reapplied;Patient is progressing toward STG(s);Patient tolerated treatment well;Goals met for this session OT Summary Plan of Care Continue with current plan of care Individual (OT) Time In 1031 Time Out 1202 Breaks/Pauses (Min) 0 mins Total Time with Patient (Min) 91 min Missed Minutes Missed Minutes 1 SHANAE CHAMBERS OT 09/28/2017 12:03 PM * OT Weekly Progress Note - Shanae Chambers OT - 09/28/2017 11:03 AM CDT Occupational Therapy Weekly Progress Note: OT Overall Functional Status: Ms Long is making good progress in occupational therapy and current functional status is as follows: EATING: with modified independence (improved from setup) GROOMING: with setup and increased time (improved from minimal assistance for denture care seated) BATHING:with stand by assistance using shower chair and grab bars with wash mitt (improved from contact guard assistance using shower chair and grab bars) UPPER BODY DRESSING: with setup and increased time with minimal assistance for bra fastener LOWER BODY DRESSING: with stand by assistance (improved fromminimal assistance) TOILETING: with stand by assistance using grab bars (improved from maximal fluctuating to moderate assistance) BED/CHAIR TRANSFER: with stand by assistance using wheeled walker (improved from minimal assistance) TOILET TRANSFER: with stand by assistance using grab bars (improvedfrom minimal assistance) TUB/SHOWER TRANSFER: with stand by assistance using grab bars (improved from minimal assistance) . In addition to progress with ADLs and transfers, she has also made progresswith R UE functional grasp and release, R UE ROM especially at shoulder, static standing balance and tolerance, and moderate level functional cognitive skills during IADLs. Continued impairments include decreased R UE functional use due to weakness and decreased coordination, decreased high level cognitive skills impeding independence with IADLs, decreased dynamic standing balance due to R knee instability. Ms Long will benefit from continued inpatient occupational therapy to improve independence with ADLs and transfers to ensure safe discharge to least restrictive environment. (09/28/17 1059) Facilitating Factors in Goal Achievement: Patient understanding and knowledge, Patient compliance, Patient motivation, Use of compensatory strategies, Improved cognition, Improved functional mobility, Improved strength, Improved safety awareness, Improved ROM (09/28/17 1102) Barriers: Strength limitations, Balance deficits, Motor control deficits, Cognitive deficits, Diminished endurance (09/28/17 1102) Short Term Goals: Eating Short Term Goals Eating Goals - Short Term: Short Term Goal 1 (09/28/17 105) Eating Short Term Goal 1: with modified independence (09/28/17 105) Eating Short Term Goal 1 Status: Achieved (09/28/17 105) Expected Achievement Date: 09/28/17 (09/21/17 0720) Grooming Short Term Goals Grooming Goals - Short Term: Short Term Goal 1, Short Term Goal 2 (09/28/17 105) Grooming Short Term Goal 1: with setup seated (09/28/17 105) Grooming Short Term Goal 1 Status: Achieved (09/28/17 105) Grooming Short Term Goal 2: with modified independence standing at sink (09/28/17 105) Grooming Short Term Goal 2 Status: Established (09/28/17 105) Expected Achievement Date: 10/05/17 (09/28/17 105) Bathing Short Term Goals Bathing Goals - Short Term: Bathing Short Term 1, Bathing Short Term 2, Bathing Short Term 3 (09/28/17 105) Bathing Short Term Goal 1: with contact guard assistance using grab bars and shower chair () Bathing Short Term Goal 1 Status: Achieved (09/28/17 105) Bathing Short Term Goall 2: with stand by assistance using grab bars and shower chair (09/28/17 105) Bathing Short Term Goal 2 Status: Achieved (09/28/17 105) Bathing Short Term Goal 3: with distant supervision using grab bars and shower chair (09/28/17 105) Bathing Short Term Goal 3 Status: Established (09/28/17 105) Expected Achievement Date: 10/05/17 (09/28/17 1059) Upper Body Dressing Short Term Goals Upper Body Dressing Goals - Short Term: Short Term Goal 1, Short Term Goal 2 (09/28/17 1100) UE Dressing Short Term Goal 1: with setup and cues (09/28/17 1100) UE Dressing Short Term Goal 1 Status: Achieved (09/28/17 1100) UE Dressing short term goal 2: with modified independence (09/28/17 1100) UE Dressing Short Term Goal 2 Status: Established (09/28/17 1100) Expected Achievement Date: 10/05/17 (09/28/17 1100) Lower Body Dressing Short Term Goals Lower Body Dressing Goals - Short Term: Short Term Goal 1, Short Term Goal 2, Short Term Goal 3 (09/28/17 1100) LE Dressing Short Term Goal 1: with minimal assistance using hemitechnique (09/28/17 1100) LE Dressing Short Term Goal 1 Status: Achieved (09/28/17 1100) LE Dressing short term goal 2: with contact guard assistance using hemitechnique (09/28/17 1100) LE Dressing Short Term Goal 2 Status: Achieved (09/28/17 1100) LE Dressing Short Term Goal 3: with modified independence using ww (09/28/17 1100) LE Dressing Short Term Goal 3 Status: Established (09/28/17 1100) Expected Achievement Date: 10/05/17 (09/28/17 1100) Toileting Short Term Goals Toileting Goals - Short Term: Short Term Goal 1, Short Term Goal 2, Short Term Goal 3 (09/28/17 1101) Toileting Short Term Goal 1: with maximal assistance using grab bars (09/28/17 1101) Toileting Short Term Goal 1 Status: Achieved (09/28/17 1101) Toileting Short Term Goal 2: with moderate assistance using grab bars (09/28/17 1101) Toileting Short Term Goal 2 Status: Achieved (09/28/17 1101) Toileting Short Term Goal 3: with modified independence using grab bars (09/28/17 1101) Toileting Short Term Goal 3 Status: Established (09/28/17 1101) Expected Achievement Date: 10/05/17 (09/28/17 1101) Transfer Short Term Goals Transfer Goals-Short Term: Short Term 2, Short Term 1, Short Term 3 (09/28/17 1102) Transfer Short Term Goal 1: BED/CHAIR: with modified independence using wheeled walker (09/28/17 1102) Transfer Short Term Goal1 Status: Established (09/28/17 1102) Transfer Short Term Goal 2: TOILET: with modified independence using grab bars (09/28/17 1102) Transfer Short Term Goal 2 Status: Established (09/28/17 1102) Transfer Short Term Goal 3: TUB/SHOWER: with modified independence using grab bars (09/28/17 1102) Transfer Short Term Goal 3 Status: Established (09/28/17 1102) Expected Achievement Date: 10/05/17 (09/28/17 1102) Curb Supervisor Goals: Eating Care Home Goals Eating Goals - Care Home: Care Home Goal 1 (09/16/17 1034) Eating Care Home Goal 1: with modified independence and dentures (09/16/17 1034) Eating Care Home Goal 1 Status: Established (09/16/17 1034) Expected Achievement Date: 10/14/17 (09/16/17 1034) Grooming Care Home Goals Grooming Goals - Care Home: Grooming Care Home 1 (09/16/17 1034) Grooming Care Home Goal 1: with modified independence using hemitechnique (09/16/17 1034) Grooming Care Home Goal 1 Status: Established (09/16/17 1034) Expected Achievement Date: 10/14/17 (09/16/17 1034) Bathing Care Home Goals Bathing Goals - Care Home: Bathing Care Home 1 (09/16/17 1035) Bathing Curb Supervisor Goal 1: with stand by assistance using grab bars (09/16/17 1035) Bathing Care Home Goal 1 Status: Established (09/16/17 1035) Expected Achievement Date: 10/14/17 (09/16/17 1035) Upper Body Dressing Care Home Goals Upper Body Dressing Goals - Curb Supervisor: Care Home Goal 1 (09/16/17 1035) UE Dressing Care Home Goal 1: with modified independence using hemitechnique (09/16/17 1035) UE Dressing Curb Supervisor Goal 1 Status: Established (09/16/17 1035) Expected Achievement Date: 10/14/17 (09/16/17 1035) Lower Body Dressing Curb Supervisor Goals Lower Body Dressing Goals - Curb Supervisor: Curb Supervisor Goal 1 (09/16/17 1036) LE Dressing Care Home Goal 1: with modified independence using hemitechnique (09/16/17 1036) LE Dressing Care Home Goal 1 Status: Established (09/16/17 1036) Expected Achievement Date: 10/14/17 (09/16/17 1036) Toileting Care Home Goals Toileting Goals - Care Home: Curb Supervisor Goal 1 (09/16/17 1036) Toileting Curb Supervisor Goal 1: with modified independence using grab bars (09/16/17 1036) Toileting Curb Supervisor Goal 1 Status: Established (09/16/17 1036) Expected Achievement Date: 10/14/17 (09/16/17 1036) Transfer Care Home Goals Transfer Care Home Goal 1: BED/CHAIR: with modified independence using least restrictive device (09/16/17 1037) Transfer Care Home Goal 1 Status: Established (09/16/17 1037) Transfer Curb Supervisor Goal 2: TOILET: with modified independence using grab bars (09/16/17 1037) Transfer Curb Supervisor Goal 2 Status: Established (09/16/17 1037) Transfer Curb Supervisor Goal 3: TUB/SHOWER: with stand by assistnace using grab bars (09/16/17 1037) Transfer Curb Supervisor Goal 3 Status: Established (09/16/17 1037) Expected Achievement Date: 10/14/17 (09/16/17 1037) * [facility]IL[facility] Weekly Progress Note - [facility] - 09/28/2017 9:11 AM CDT Speech Therapy Weekly Progress Note: [employer]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 Long's current functional status is as follows: DIET: Regular solids and Thin liquids. SWALLOWING STRATEGIES: Upright 90 degrees, small bites/sips, slow rate, monitor right cheek for pocketing and alternation of solids/liquids. COMPREHENSION: Supervisory assist for basic comprehension. WFL for basic conversation and increased amount of assist for complex conversation. EXPRESSION:Supervisory assist for verbal expression. WFL for basic conversation with increased amount of assist for complex conversation. SOCIAL: WFL. Mrs. Long acts appropriately withstaff and family members. REASONING: Mildly impaired for basic reasoning tasks. Cues required some of the time for reasoning. Decreased reasoning, thought organization, and attention. MEMORY: Supervisory assist for basic memory tasks. WFL for basic memory tasks requires increased amount of assist for complex and during unfamiliar circumstances. Noted difficulty with delayed recall paragraph recall. PROGRESS: Mrs. Long has demonstrated progress with carryover of novel information, short-termrecall, thought organization, functional problem solving, and reasoning. Recommend to continue current plan of care. (09/25/17 1452) Facilitating Factors in Goal Achievement: Patient motivation, Patient compliance, Increased insightinto deficits, Improvement in cognitive skills, Progress to date, Support of other(s) (09/25/17 1459) Barriers: Other (comment) (Cognition) (09/25/17 1459) Short Term Goals: Expression Short Term Goals Expression Goals - Short Term: Short Term 1 (09/16/17 1248) Expression Short Term Goal 1: utilize speech intelligibility strategies at the conversational levelat 100% intelligibility with supervisory assist. (09/25/17 1452) Expression Short Term Goal 1 Status: Achieved (09/25/17 1452) Expected Achievement Date: 09/25/17 (09/25/17 1452) Problem Solving Short Term Goals Problem Solving Goals - Short Term: Short Term 2 (09/25/17 1453) Problem Solving Short Term Goal 1: complete functional problem solving/reasoning tasks at 80% accuracy with min cues. (09/25/17 1453) Problem Solving Short Term Goal 1 Status: Achieved (09/25/17 145) Problem Solving Short Term Goal 2: complete functional problem solving/reasoning tasks at 80% accuracy with occasional cues (09/25/17 1453) Problem Solving Short Term Goal 2 Status: Established (09/25/17 1453) Expected Achievement Date: 10/02/17 (09/25/17 1453) Memory Short Term Goals Memory Goals - Short Term: Short Term 1 (09/16/17 1250) Memory Short Term Goal 1: complete short term memory tasks at 80% with minimal cues. (Goal met for basic short-term recall; progressing to more complex tasks.) (09/25/17 1456) Memory Short Term Goal 1 Status: Partially Achieved (09/25/17 1456) Expected Achievement Date: 10/02/17 (09/25/17 1456) Additional Cognition Short Term Goals Additional Cognition Goals - Short Term: Short Term 1, Short Term 2 (09/16/17 1252) Additional Cognition Short Term Goal 1: complete thought organization tasks at 80% with minimal cues. (09/25/17 1457) Additional Cognition Short Term Goal 1 Status: Partially Achieved (09/25/17 1457) Additional Cognition Short Term Goal 2: participate in CLQT, as appropriate. (09/18/17 1443) Additional Cognition Short Term Goal 2 Status: Achieved (09/18/17 1443) Expected Achievement Date: 10/02/17 (09/25/17 1457) Swallowing Short Term Goals Swallowing Goals - Short Term: Short Term 1 (09/16/17 1247) Swallowing Short Term Goal 1: tolerate regular solids and thin liquids with less than 10% s/s of aspiration and independent use of swallowing strategies. (09/25/17 1459) Swallowing Short Term Goal 1 Status: Achieved (09/25/17 145) Expected Achievement Date: 09/25/17 (09/18/17 1444) Care Home Goals: Expression Curb Supervisor Goals Expression Goals - Curb Supervisor: Curb Supervisor 1 (09/16/17 1241) Expression Care Home Goal 1: participate in basic conversation with supervisory fior for use of speech intelligibility strategies and expression of thoughts/ideas. (09/16/17 1241) Expression Curb Supervisor Goal 1 Status: Established (09/16/17 1241) Expected Achievement Date: 09/30/17 (09/16/17 1241) Additional Cognition Curb Supervisor Goals Additional Cognition Goals - Care Home: Curb Supervisor 1 (09/16/17 1244) Additional Cognition Care Home Goal 1: participate in daily routines with minimal cues for basic memory and reasoning tasks to safely complete ADLs. (09/16/17 1244) Additional Cognition Curb Supervisor Goal 1 Status: Established (09/16/17 1244) Expected Achievement Date: 09/30/17 (09/16/17 1244) Swallowing Care Home Goals Swallowing Goals - Curb Supervisor: Care Home 1 (09/16/17 1245) Swallowing Care Home Goal 1: tolerate the least restrictive diet with less than 10% s/s of aspiration for safe and adequate consumption of daily meals. (09/16/17 1245) Swallowing Curb Supervisor Goal 1 Status: Established (09/16/17 1245) Expected Achievement Date: 09/30/17 (09/16/17 1245) [facility] * Plan of Care - Bettina Milner RN - 09/27/2017 11:05 PM CDT Perineal Skin Integrity is Maintained or Improved Progressing Identify patient's discharge goals Progressing Coordinate Safe Discharge Plan Progressing Work with the treatment team to assess caregiver capability Progressing Discharge to home or other facility with appropriate resources Progressing mud analysis operator will develop a plan to decrease their burden and enhance comfort in role Progressing Free from fall injury Progressing Absence of infection and prevention of transmission during hospitalization Progressing Patient and/or family demonstrate readiness to learn Progressing Patient and/or family verbalizes understanding of education, and/or performs desired skill Progressing Patient/family/caregiver demonstrates understanding of disease process, treatment plan, medications, and discharge instructions Progressing Skin integrity is maintained or improved Progressing Nutritional status is improving Progressing Perineal skin integrity is maintained or improved Progressing * Plan of Care - Bettina Milner RN - 09/26/2017 11:30 PM CDT Perineal Skin Integrity is Maintained or Improved Progressing Identify patient's discharge goals Progressing Coordinate Safe Discharge Plan Progressing Work with the treatment team to assess caregiver capability Progressing Discharge to home or other facility with appropriate resources Progressing mud analysis operator will develop a plan to decrease their burden and enhance comfort in role Progressing Free from fall injury Progressing Absence of infection and prevention of transmission during hospitalization Progressing Patient and/or family demonstrate readiness to learn Progressing Patient and/or family verbalizes understanding of education, and/or performs desired skill Progressing Patient/family/caregiver demonstrates understanding of disease process, treatment plan, medications, and discharge instructions Progressing Skin integrity is maintained or improved Progressing Nutritional status is improving Progressing Perineal skin integrity is maintained or improved Progressing * Plan of Care - Clara Romero RN - 09/25/2017 11:48 PM CDT Bowel Incontinence ??? Perineal Skin Integrity is Maintained or Improved Progressing Case Management Discharge Goals ??? Identify patient's discharge goals Progressing ??? Coordinate Safe Discharge Plan Progressing ??? Work with the treatment team to assess caregiver capability Progressing Discharge Planning ??? Discharge to home or other facility with appropriate resources Progressing ??? 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 Free from fall injury Progressing Infection ??? Absence of infection and prevention of transmission during hospitalization Progressing Knowledge Deficit ??? Patient and/or family demonstrate readiness to learn Progressing ??? Patient and/or family verbalizes understanding of education, and/or performs desired skill Progressing Knowledge Deficit ??? Patient/family/caregiver demonstrates understanding of disease process, treatment plan, medications, and discharge instructions Progressing Potential for Compromised Skin Integrity ??? Skin integrity is maintained or improved Progressing ??? Nutritional status is improving Progressing Urinary Incontinence ??? Perineal skin integrity is maintained or improved Progressing * OT Treatment Note - Shanae Chambers OT - 09/25/2017 2:35 PM CDT 09/25/17 1303 Pain Assessment Pain Context Therapy Assessment Prior to Treatment Pain Assessment NRS 0-10 Pain Score 0 - No pain Bed, Chair, Wheelchair Transfers Bed, Chair, Wheelchair Transfer Close Supervision Bed/Chair Transfer to Wheelchair Bed/Chair Transfer from Stand Bed/Chair Transfer Technique Sit to stand;Stand to sit Bed/Chair Transfer Status With stand by assist Assistive Devices Used No Device Standing Tolerance Standing Tolerance Time (mins) 10 min Activity BUE strength task Functional Standing Tolerance Comments static standing, No LOB and good equal weight shifting to BLEs Standing Assist Distant Supervision Health Management Mobility Assist for Health Management Close Supervision Health Management Pt completes one simple and one complex med management task using pill organizer.She first completes simple 3 step med management task with 100% accuracy and minimal slippage due to R hand impaired ROM and coordination. She then completes complex 5 step med management task with use of pill organizer and moderate cues for attention to detail and complex reasoning. She demos good ability to discuss thought processing but despite continues to require cues for success with 3/5 problems. She is educated on recommendation to obtain assist with med management at [place] to ensure safety and compliance and she is agreeable. She requires significantly increased for med management as she incorporates use of R UE to obtain pills (small beads) and place into pill organizer and containers. She demos good motivation to incorporate R UE and use to open child proof pill containers with increased time. She demos spillage and slippage of pills using R UE. Therapeutic Exercise - Strength Strength Exercise Pt participates in BUE strengthening to increase strength and endurance for ADLs and functional transfers emphasizing bilateral integration and R shoulder strength using BUE tara on 45 degree incline with 3# resistance x 10 minutes without a rest break and cues for proper form and activity pacing as pt fatigues. Neuromuscular Reducation Neuromuscular Narrative Pt educated on and demos understanding of RUE AROM HEP and is issued handout in planes of shoulder shrugs, shoulder rolls, protraction/retraction, bicep curls, external shoulder rotation, shoulder flexion, wrist supination/pronation, wrist flexion/extension, digit composite f lexion/extension, digit finger isolation, serial opposition and finger abduction/adduction. She demos understanding of each exercise following handout without cues. She is educated on recommendation to complete x 20 reps with recommendation to complete 2-3 times per day to improve RUE strength and overall endurance for functional transfers and independence with self care skills. She is also educated to discontinue task if pain or discomfort occurs and is educated on recommendation to maintain proper form vs fast quick movements. She verbalizes understanding. Other Interventions Narrative: Pt participates in home safety card task. She completes 6 cards with cues for identifying unsafe situation on 2 cards. When unsafe situation is identified she demos abilty to identify safer situation and risk / hazard of unsafe situation for falls. Treatment, Outcomes, and Plan OT Narrative: Pt demos good progress with R UE strenghtening and AROM, home safety, and med management. Continue skilled OT services per POC OT Treatment Outcomes: Safety device reapplied;Patient tolerated treatment well;Patient is progressing toward STG(s) OT Summary Plan of Care Continue with current plan of care Individual (OT) Time In 1303 Time Out 1433 Breaks/Pauses (Min) 0 mins Total Time with Patient (Min) 90 min Missed Minutes Missed Minutes 0 SHANAE CHAMBERS OT 09/25/2017 2:35 PM * [employer] COUNCILMAN Treatment Note - Inge Vega - 09/25/2017 12:49 PM CDT 09/25/17 0815 Patient Subjective Report Patient Subjective Report Pt seen alert in bed; agreeable to treatment. Pain Assessment Pain Context Therapy Assessment Prior to Treatment Pain Assessment None/denies pain Daily Treatment Cognitive Communication Basic attention;Functional reading for activites of daily living;Organization;Compensatory techniques for cognition;Short-term memory;Speed of processing Treatment Outcome and Plan of Care ST Narrative: Pt completed functional organization task by independently making selections from tomorrow's menu. Pt completed thought organization task with 87% accuracy with minimal assistance. Pt completed functional organization, attention, reasoning, and functional reading task, by identifying billing information with 86% accuracy with minimal assistance. Noted improved attention to detail throughout task, when compare to previous sessions. Pt completed attention, and thought organization task by naming items in a concrete category with 92% accuracy with minimal assistance. Improved processing and thought organization with naming items in concrete cateogories; increased amount of assistfor categories with slight increased complexity. Recommend to continue current plan of care. *Pt left in room with call light and phone within reach. ST Session Outcomes Tolerated treatment well;Progressing toward STGs;Patient/family education progressing;Minimal cues during session;Independent during session ST Summary Plan of Care Continue with current plan of care Individual (ST) Time In 0815 Time Out 0900 Total Time with Patient (Min) 45 min Missed Minutes Missed Minutes 0 INGE VEGA Cosigned by ST Uyen at 09/25/2017 12:58 PM CDT * PT Treatment Note - Bertha Dawn, PT - 09/25/2017 12:26 PM CDT 09/25/17 1122 Pain Assessment Pain Context Therapy Assessment Prior to Treatment Pain Assessment NRS 0-10 Pain Score 0 - No pain Bed Mobility Bed Mobility Performed on mat;Short sit to - from supine Bed Mobility Level of Assistance Close supervision Transfer 1 Transfer to 1 Stand Transfer From 1 Sit Technique 1 Sit to stand Transfer Level of Assistance 1 Close Supervision Trials/Comments 1 to fww Transfers 2 Transfer to 2 Sit Transfer From 2 Stand Technique 2 Stand to sit Transfer Level of Assistance 2 Close Supervision Trials/Comments 2 from fww Ambulation Surface Even surface;Indoor Assistive Device RW;Cane Ambulation Level of Assistance (close sup for fww, cga for spc with verbal cues) Distance (feet) 200 ft Gait Analysis ambulates 200 feet with fww and close supervision for safety. ambulates 100 feet withsingle point cane and contact guard assistance for safety. gait deviations include dec joseline dec step length, inc trunk flexion with single point cane needs cues for increasing RLE step length Wheelchair Management Wheelchair Level of Assistance Modified Independent Distance Traveled in Wheelchair (feet) 150 ft Wheelchair Type Manual Left Brakes Level of Assistance (cues for brakes) Right Brakes Level of Assistance (cues for brakes) Wheelchair Propulsion Surface Even surface;Indoor Propulsion Method Bilateral lower extremity Wheelchair Analysis inc time to complete, no cues or safety issues noted Activity tolerance Activity Type Standing Activity Endurance Good Compromised ability to maintain sitting or standing? Yes Activity Comment requires rest breaks Therapeutic Activities and Neuromuscular Re-education Therapeutic Activities and Neuromuscular Re-education quadruped from prone position with 5 shoulderflexion on each side and 5 leg extension on each side to improve core strength and ble ue and le control and strength, tall kneeling x 30 seconds with one instance of min assist, otherwise contact guard assistance. ambulates 10 feet without assistive device with min assist for balance. Outcomes PT Treatment Outcomes: Safety device reapplied;Patient tolerated treatment well;Patient is progressing toward STG PT Summary Plan of Care Continue with current plan of care Individual (PT) Time In 1115 Time Out 1200 Total Time with Patient (Min) 45 min Missed Minutes Missed Minutes 0 Bertha Dawn, PT 09/25/2017, 12:26 PM * Plan of Care - Mata Downs RN - 09/25/2017 11:16 AM CDT Fall Safety ??? Free from fall injury Progressing * Plan of Care - Roxanne Lora RN - 09/24/2017 11:12 PM CDT Bowel Incontinence ??? Perineal Skin Integrity is Maintained or Improved Progressing Case Management Discharge Goals ??? Identify patient's discharge goals Progressing ??? Coordinate Safe Discharge Plan Progressing ??? Work with the treatment team to assess caregiver capability Progressing Discharge Planning ??? Discharge to home or other facility with appropriate resources Progressing ??? 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 Free from fall injury Progressing Infection ??? Absence of infection and prevention of transmission during hospitalization Progressing Knowledge Deficit ??? Patient and/or family demonstrate readiness to learn Progressing ??? Patient and/or family verbalizes understanding of education, and/or performs desired skill Progressing Knowledge Deficit ??? Patient/family/caregiver demonstrates understanding of disease process, treatment plan, medications, and discharge instructions Progressing Potential for Compromised Skin Integrity ??? Skin integrity is maintained or improved Progressing ??? Nutritional status is improving Progressing Urinary Incontinence ??? Perineal skin integrity is maintained or improved Progressing * Plan of Care - Mata Downs RN - 09/24/2017 4:07 PM CDT Fall Safety ??? Free from fall injury Progressing * Plan of Care - Mata Downs RN - 09/24/2017 4:06 PM CDT Fall Safety ??? Free from fall injury Progressing * Wound Progress Note - Maria Dave RN - 09/24/2017 3:33 PM CDT Wound Progress Note Reason for wound Consult: Asked to assist with assessment and recommendations for care of rash to buttocks. Patient is awake, alert and oriented Maria Long is a 57 y.o. female with the following Problems. Presented to ED at [facility] 09/12/17 with right sided weakness and slurred speech, work up revealed left acute ischemic stroke. Incontinentof urine and stool. Buttocks with redness and rash with satellite lesions at the edges suggesting fungal component - will cleanse with Dial soap and apply antifungal barrier cream BID and as needed. Lotriman cream 1% BID has been ordered to be applied to hands and feet to circular red areas BID. Heel elevation at all times when in bed. Minerin cream to feet and lower legs at HS Patient Active Problem List Diagnosis ??? Essential hypertension ??? Diabetes mellitus without mention of complication, type II or unspecified type, uncontrolled ??? Hemiplegia affecting right dominant side ??? Dysarthria ??? Dyslipidemia with high density lipoprotein below reference range and triglyceride above reference range due to type 2 diabetes mellitus ??? Multiple lacunar infarcts ??? Morbid obesity Past Medical History: Past Medical History: Diagnosis Date ??? Diabetes mellitus ??? Hypertension Past Surgical History: Past Surgical History: Procedure Laterality Date ??? CHOLECYSTECTOMY 1987 Allergies: Review of patient's allergies indicates no known allergies. Addi Score: Addi Scale Score: 17 Wound/Ulcer Assessment: Rash to buttock - see photo documentation Recommendations: Turn and reposition q 2-4 hours when in bed and encourage q 20- 30 min shifts in wheelchair Cleanse skin folds with Dial soap and water, rinse and dry and apply 2% Miconozole powder. Lotriman cream as ordered to hands and foot BID Heel elevation at all times when in bed. Anti fungalbarrier cream to buttocks BID and as needed after cleansing Minerin cream to feet and lower legs daily. Plan of care discussed with Dr Reed Signature: MARIA DAVE RN Date: 09/24/2017 Time: 3:33 PM * PT Treatment Note - Bertha Dawn, PT - 09/24/2017 12:41 PM CDT 09/24/17 0957 Pain Assessment Pain Context Therapy Assessment Prior to Treatment Pain Assessment NRS 0-10 Pain Score 0 - No pain Romano-Hinson FACES Pain Rating 0 Transfer 1 Transfer to 1 Stand Transfer From 1 Sit Technique 1 Sit to stand Transfer Level of Assistance 1 Close Supervision Trials/Comments 1 to fww Transfers 2 Transfer to 2 Sit Transfer From 2 Stand Technique 2 Stand to sit Transfer Level of Assistance 2 Close Supervision Trials/Comments 2 from fww Ambulation Surface Even surface;Indoor Assistive Device RW Ambulation Level of Assistance Close Supervision Distance (feet) 200 ft Gait Analysis ambulates 200 feet with fww and close supervision for safety. gait deviations includedec joseline dec step length, very slight r knee hyperextension. Ambulates 100 feet with single point cane and cga for safety. gait deviaitons include decc cdence dec step length, slightly dec R foot c learance. Wheelchair Management Wheelchair Level of Assistance Modified Independent Distance Traveled in Wheelchair (feet) 150 ft Wheelchair Type Manual Left Brakes Level of Assistance Modified Independent Right Brakes Level of Assistance Modified Indepdent Wheelchair Propulsion Surface Even surface;Indoor Propulsion Method Bilateral lower extremity Activity tolerance Activity Type Standing Activity Endurance Good Compromised ability to maintain sitting or standing? Yes Activity Comment requires assistive device Static Standing Balance Static Standing Balance Assistive device needed (Comment) (fww) Static Standing Level of Assistance Close Supervision Static Standing-# of Mins/Comments < 5 mins Therapeutic Activities and Neuromuscular Re-education Therapeutic Activities and Neuromuscular Re-education quadruped position on mat, tall kneeling on mat, completes 5 reps or alteranting shoulder flexion while in both positions, min assist to attain positions/ tolerated well without any complaints. completes standing small range lunge forward and back with RLE with emphasis on R knee flexion to improve RLE strength and endurance Outcomes PT Treatment Outcomes: Safety device reapplied;Patient tolerated treatment well;Patient is progressing toward STG PT Summary Plan of Care Continue with current plan of care Individual (PT) Time In 0945 Time Out 1030 Total Time with Patient (Min) 45 min Missed Minutes Missed Minutes 0 Bertha Dawn, PT 09/24/2017, 12:41 PM * [employer] Treatment Note - Inge Vega - 09/24/2017 12:40 PM CDT 09/24/17 1030 Patient Subjective Report Patient Subjective Report Pt seen alert and in chair; agreeable to treatment. Pain Assessment Pain Context Therapy Assessment Prior to Treatment Pain Assessment None/denies pain Daily Treatment Cognitive Communication Short-term memory;Functional reading for activites of daily living;Functional problem solving;Compensatory techniques for cognition;Organization;Planning and sequencing Treatment Outcome and Plan of Care ST Narrative: Pt independently recalled details of morning therapies and breakfast. Pt completed thought organization and sequencing task with 94% accuracy with minimal assistance. Pt completed functional thought organization, reasoning, attention, and reading activity identifying billing information with 75% accuracy with minimal assistance. Pt completed problem solving task with 90% accuracy with minimal assistance. Recommend to continue current plan of care. *Pt left in room with call light and phone within reach. ST Session Outcomes Tolerated treatment well;Progressing toward STGs;Minimal cues during session;Patient/family education progressing ST Summary Plan of Care Continue with current plan of care Individual (ST) Time In 1030 Time Out 1115 Total Time with Patient (Min) 45 min Missed Minutes Missed Minutes 0 INGE VEGA Cosigned by ST Uyen at 09/24/2017 12:41 PM CDT * OT Treatment Note - Shanae Chambers OT - 09/24/2017 9:46 AM CDT 09/24/17 0814 Pain Assessment Pain Context Therapy Assessment Prior to Treatment Pain Assessment NRS 0-10 Pain Score 0 - No pain Grooming Grooming Minimal Assistance Grooming Where Assessed Sitting at sink;Wheelchair Grooming Comments min assist for cleaning dentures seated at sinkside due to poor prolonged grasp and in hand manipulation skills of R UE . pt rodrigues hair with increased time and attempts to incorporate use of RUE in task and she washes face and hands with setup Bathing Bathing Close Supervision Bathing Where Assessed Seated in shower;Standing in shower Bathing Equipment Provided Bath Mitt;Hand held shower hose Bathing Comments pt demos ability to wash L UE using R UE with bath mitt after setup and use of shower chair and grab bars . she stands briefly with SBA for balance as she washes buttocks also attemptting to utlize R UE for success in task Toileting Toileting Close Supervision Toileting Where Assessed Toilet Toilet Comments cues for safety and pacing using grab bars completing 3/3 aspects of task with close SBA and increased time to don pants over R hip Upper Body Dressing Dressing Upper Body Contact Guard Upper Body Dressing Where Assessed Sitting in chair;Standing Upper Body Dressing Comments cues for donning bra fastener in front of body then twisting around and incidental assist required for success howver pt demos improving use of R UE in task. She don/doffpullover shirt with setup Lower Body Dressing Dressing Lower Body Contact Guard Lower Body Dressing Where Assessed Sitting in chair;Standing Lower Body Dressing Comments incidental assist to don pants over R hip thoroughly and close SBA required for balanc during LB dressing. Pt conitnues to demo good iniation in use of R UE in task Toilet Transfers Toilet Transfer Close Supervision Toilet Transfer To Standard toilet Toilet Transfer From Wheelchair Toilet Transfer Technique Stand pivot Toilet Transfers Comments cues for pacing and use of grab bars with cues for attention to R LE for success Shower Transfers Shower Transfer Close Supervision Shower Transfer to Shower seat with back Shower Transfer From Wheelchair Shower Transfer Technique Stand pivot Shower Transfers Comments use of grab bars and cues for pacing Bed, Chair, Wheelchair Transfers Bed, Chair, Wheelchair Transfer Close Supervision Bed/Chair Transfer to Wheelchair Bed/Chair Transfer from Stand Bed/Chair Transfer Technique Sit to stand;Stand to sit Bed/Chair Transfer Status With stand by assist Assistive Devices Used No Device Bed/Chair Transfer Comments cues to widen base of support specifally to R LE Coordination Training Coordination Training Narrative Pt completes R UE FMC training empahsizing in hand strength using resistnace clothes pins of min-mod resistance with cues for proper pinch grasp . She places clothes pins on rods horizontally placed at less su n90 degree shoulder flexion. She places 12 clothes pins within 18 min. Pt is then issued yellow soft resistance theraputty in which she demos abilty to pinch and pull small beads from putty with R UE only. She demos great motivation with task . She then isinstructed on futher HEP using putty to roll out and pinch to improve functional grasp and use of RUE in dailiy tasks such as LB dressing and fastener training. Treatment, Outcomes, and Plan OT Narrative: Pt demos good progress with R UE in hand strength and manipulation,dressing and incorporating R UE into tasks, and bathing. POC to continue addressing R UE function and coordination, balance and cognition for IADLs OT Treatment Outcomes: Safety device reapplied;Patient tolerated treatment well;Patient is progressing toward STG(s) OT Summary Plan of Care Continue with current plan of care Individual (OT) Time In 0814 Time Out 0944 Breaks/Pauses (Min) 0 mins Total Time with Patient (Min) 90 min Missed Minutes Missed Minutes 0 SHANAE CHAMBERS OT 09/24/2017 9:46 AM * Plan of Care - Shanell Oh RD - 09/24/2017 9:13 AM CDT Problem: Unintended [facility] As Evidenced By: pt stating she lost 29# in the past month since she had been hospitalized Goal: Clinical Nutrition Goal Outcome: Progressing 09/16/17 1612 09/24/17 0912 Nutrition Goals Primary Goal Adequate Meals and Snack/Oral Nutrition Supplement Intake -- Primary Goal Progress -- Ongoing Primary Indicator/Monitor PO intake 75-100% -- Intervention: Medical Nutrition Therapy Interventions 09/16/17 1612 Nutrition Interventions Meals and Snacks General/healthful diet Coordination of Nutrition Care Continue to Monitor * Plan of Care - Roxanne Lora RN - 09/23/2017 10:16 PM CDT Bowel Incontinence ??? Perineal Skin Integrity is Maintained or Improved Progressing Case Management Discharge Goals ??? Identify patient's discharge goals Progressing ??? Coordinate Safe Discharge Plan Progressing ??? Work with the treatment team to assess caregiver capability Progressing Discharge Planning ??? Discharge to home or other facility with appropriate resources Progressing ??? 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 Free from fall injury Progressing Infection ??? Absence of infection and prevention of transmission during hospitalization Progressing Knowledge Deficit ??? Patient and/or family demonstrate readiness to learn Progressing ??? Patient and/or family verbalizes understanding of education, and/or performs desired skill Progressing Knowledge Deficit ??? Patient/family/caregiver demonstrates understanding of disease process, treatment plan, medications, and discharge instructions Progressing Potential for Compromised Skin Integrity ??? Skin integrity is maintained or improved Progressing ??? Nutritional status is improving Progressing Urinary Incontinence ??? Perineal skin integrity is maintained or improved Progressing * OT Treatment Note - Shanae Chambers, OT - 09/23/2017 2:57 PM CDT 09/23/17 1302 Pain Assessment Pain Context Therapy Assessment Prior to Treatment Pain Assessment NRS 0-10 Pain Score 0 - No pain Grooming Grooming Comments setup for handwashing after toileting seated at wc level Toileting Toileting Contact Guard Toilet Comments Pt requries CGA for balance using grab bars to don/doff pants over hips primarily using L UE due to poor functional use of R UE depsite good progress with RUE . She demos ability to copmlete hygiene after voiding Toilet Transfers Toilet Transfer Close Supervision;Contact Guard Toilet Transfer To Standard toilet Toilet Transfer From Wheelchair Toilet Transfer Technique Stand pivot Toilet Transfers Comments CGA due to one LOB using grab bars but emergin SBA Bed, Chair, Wheelchair Transfers Bed, Chair, Wheelchair Transfer Contact Guard Bed/Chair Transfer to Wheelchair Bed/Chair Transfer from Mat Bed/Chair Transfer Technique Stand pivot Assistive Devices Used Walker Bed/Chair Transfer Comments cues for pacing and R LE attention Meal Prep Meal Preparation Pt participates in simple meal prep task emphasizing functional use of R UE for feeding. She requires assist of L UE to open peanut butter container and requires increased time with poor coordination and in hand manipulation of R UE to spread peanut butter on cracker. She demos good motivation for success with task throughout. Neuromuscular Reducation Neuromuscular Narrative Pt completes R UE AROM and strength training for improved functional use indaily tasks. She demos difficulty with full ROM at shoulder and digit/hand extension but continues to demo good effort and motivation for successful task completion. She uses mirror for visual biofeed back and is cued for noncompensatory use of R UE. She completes shoulder flexion, abduction, protraction/retraction in punching form, tricep extension, elbow flexion, wrist extension, composite digitflexion/extension with emphasis on extension, finger extension isolation, wrist supination/pronation. She tolerates this task well x 10 reps in each plane x 2 sets. Coordination Training Coordination Training Narrative Pt utilizes RUE to place and displace x 30 large cylindrical rods into depth perception board with increased time but noted improvement of in hand manipulation skills from previous treatment sessions as noted by less slippage and decreased amount of time for task completion. Task completed to improve R UE functional use in daily tasks such as clothing management for toileting. Other Interventions Narrative: Pt participates in R UE hand writing task as well as divergent naming. When handwriting she demos fair ability to maintain proper grasp on pen however utilizes whole arm movements for writing vs finger/wrist movements despite education for proper form. She demos legible but shaky handwriting in this manner. Pt demos ability to properly categorize 5 items in 4 basic grocery store categories with increased time for thought formation but no cues for accuracy. Treatment, Outcomes, and Plan OT Narrative: Pt demos good progress with R UE FMC and AROM at shoulder, functional transfers and sitting balance at edge of mat POC to continue addressing balance, R UE functional use and ADLs OT Treatment Outcomes: Safety device reapplied;Patient tolerated treatment well;Patient is progressing toward STG(s) OT Summary Plan of Care Continue with current plan of care Individual (OT) Time In 1302 Time Out 1432 Breaks/Pauses (Min) 0 mins Total Time with Patient (Min) 90 min Missed Minutes Missed Minutes 0 SHANAE CHAMBERS OT 09/23/2017 2:57 PM * [employer] Treatment Note - Inge Gary - 09/23/2017 1:58 PM CDT 09/23/17 0900 Patient Subjective Report Patient Subjective Report Pt seen alert and in chair; agreeable to treatment Pain Assessment Pain Context Therapy Assessment Prior to Treatment Pain Assessment None/denies pain Daily Treatment Cognitive Communication Short-term memory;Processing information of increased length or complexity;Verbal organization;Organization;Compensatory techniques for cognition Treatment Outcome and Plan of Care ST Narrative: Pt independently recalled details of morning and breakfast. Pt completed short-term memory task by independently recalling 3/3 items after 5-10 minute delay. Pt completed temporal reasoning task to adress functional executive functioning and processing with 70% accuracy with minimal to moderate cueing. Pt completed a deductive reasoning task to address attention, thought organization, reasoning, and processing with 50% accuracy with moderate to maximal assistance. Pt completed thought organization and reasoning task by identifying similarities between two words with 75% accuracywith minimal assistance. Recommend to continue current plan of care. *Pt left in room with phone and call light within reach. ST Session Outcomes Tolerated treatment well;Progressing toward STGs;Minimal cues during session;Moderate cues during session;Patient/family education progressing;Maximal cues during session ST Summary Plan of Care Continue with current plan of care Individual (ST) Time In 0900 Time Out 0945 Total Time with Patient (Min) 45 min Missed Minutes Missed Minutes 0 INGE VEGA Cosigned by ST Uyen at 09/23/2017 1:58 PM CDT * PT Treatment Note - Bertha Dawn, PT - 09/23/2017 12:42 PM CDT 09/23/17 1122 Pain Assessment Pain Context Therapy Assessment Prior to Treatment Pain Assessment None/denies pain Bed Mobility Bed Mobility Performed on mat;Short sit to - from supine Bed Mobility Level of Assistance Close supervision (scooting side to side supine sup but inc time to complete) Transfer 1 Transfer to 1 Stand Transfer From 1 Sit Technique 1 Sit to stand Transfer Level of Assistance 1 Close Supervision Trials/Comments 1 to fww Transfers 2 Transfer to 2 Sit Transfer From 2 Stand Technique 2 Stand to sit Transfer Level of Assistance 2 Close Supervision Trials/Comments 2 from fww Ambulation Surface Even surface;Indoor Assistive Device RW Ambulation Level of Assistance Contact Guard Distance (feet) 200 ft Gait Analysis ambulates 200 feet with fww and cga for safety. gait deviations include dec joseline dec step length, inc trunk flexion, slight R knee hyperextension Wheelchair Management Wheelchair Level of Assistance Modified Independent Distance Traveled in Wheelchair (feet) 150 ft Wheelchair Type Manual Left Brakes Level of Assistance Modified Independent Wheelchair Propulsion Surface Even surface;Indoor Propulsion Method Bilateral lower extremity Wheelchair Analysis inc time to complete Activity tolerance Activity Type Standing Activity Endurance Fair Compromised ability to maintain sitting or standing? Yes Activity Comment requires rest breaks Therapeutic Activities and Neuromuscular Re-education Therapeutic Activities and Neuromuscular Re-education sit to stand x 5 blocked trials from low mat,3 trials with RUE only and then 4 trials without any ue support. cga without ue support, close supervision and i ncreased time for other trials. ; hooklying mini hip flexion x 15 reps, partial range bkfo x 10 reps, very small range bridging x 10 reps pain free, glut sets x 15 reps, sidelying R clams x 15 reps pain free with verbal cues for proper technique Outcomes PT Treatment Outcomes: Safety device reapplied;Patient tolerated treatment well;Patient is progressing toward STG PT Summary Plan of Care Continue with current plan of care Individual (PT) Time In 1115 Time Out 1200 Total Time with Patient (Min) 45 min Missed Minutes Missed Minutes 0 Bertha Dawn, PT 09/23/2017, 12:43 PM * Plan of Care - Mata Downs RN - 09/23/2017 10:46 AM CDT Fall Safety ??? Free from fall injury Progressing * Plan of Care - Anitha Negron RN - 09/22/2017 10:09 PM CDT Problem: Infection Goal: Absence of infection and prevention of transmission during hospitalization Outcome: Progressing Problem: Fall Safety Goal: Free from fall injury Outcome: Progressing Problem: Knowledge Deficit Goal: Patient and/or family demonstrate readiness to learn Outcome: Progressing Goal: Patient and/or family verbalizes understanding of education, and/or performs desired skill Outcome: Progressing Problem: Discharge Planning Goal: Discharge to home or other facility with appropriate resources Outcome: Progressing Goal: mud analysis operator will develop a plan to decrease their burden and enhance comfort in role Outcome: Progressing Problem: Knowledge Deficit Goal: Patient/family/caregiver demonstrates understanding of disease process, treatment plan, medications, and discharge instructions Outcome: Progressing Problem: Potential for Compromised Skin Integrity Goal: Skin integrity is maintained or improved Outcome: Progressing Goal: Nutritional status is improving Outcome: Progressing * Plan of Care - Lisseth Child RN - 09/22/2017 3:36 PM CDT Problem: Case Management Discharge Goals Goal: Identify patient's discharge goals Outcome: Progressing Goal: Coordinate Safe Discharge Plan Outcome: Progressing Goal: Work with the treatment team to assess caregiver capability Outcome: Progressing * PT Treatment Note - Bertha Dawn, PT - 09/22/2017 2:44 PM CDT 09/22/17 1307 Pain Assessment Pain Context Therapy Assessment Prior to Treatment Pain Assessment NRS 0-10 Pain Score 0 - No pain Transfer 1 Transfer to 1 Stand Transfer From 1 Sit Technique 1 Sit to stand Transfer Level of Assistance 1 Contact Guard Trials/Comments 1 to fww with R hand splint Transfers 2 Transfer to 2 Sit Transfer From 2 Stand Technique 2 Stand to sit Transfer Level of Assistance 2 Contact Guard Trials/Comments 2 from fww Ambulation Surface Even surface;Indoor Assistive Device RW (with hand splint) Ambulation Level of Assistance Contact Guard Distance (feet) 200 ft Gait Analysis ambulates 200 feet with R hand splint walker and conotact guard asssitance. gait deviations include dec joseline dec step length very slight r knee hyperextension but pt is able to control with cues. Stairs Rails Left Assistive Device No device Stairs Level of Assistance Contact Guard Number of Steps 3 Stairs Height of Step 6-inch Stairs Analysis asc/desc 3 6inch steps with l rail and cga (both hands on the l rail) verbal cues for technique required.) step to pattern and increased time to complete. Wheelchair Management Wheelchair Level of Assistance Modified Independent Distance Traveled in Wheelchair (feet) 150 ft Wheelchair Type Manual Left Brakes Level of Assistance Modified Independent Wheelchair Propulsion Surface Even surface;Indoor Propulsion Method Bilateral lower extremity Wheelchair Analysis inc time to complete Activity tolerance Activity Type Standing Activity Endurance Fair Compromised ability to maintain sitting or standing? Yes Activity Comment requires rest breaks throughout session Therapeutic Activities and Neuromuscular Re-education Therapeutic Activities and Neuromuscular Re-education sit to stand x 10 blocked repetitions to fww with r hand splint and close supervision, completed for strength and endurance ble for carry over into functioanl mobility ; completes standing balance activity with cone taps including 10 taps on R and L with bue support and cga for safety increased time and cues for RLE control, completes two conetaps by color coding on both rle and lle x 4-5 trials on each side with cga for safety and then copmletes 3-5 taps with rue support only and min assist for balance and sfeaty' Outcomes PT Treatment Outcomes: Safety device reapplied;Patient tolerated treatment well;Patient is progressing toward STG PT Summary Plan of Care Continue with current plan of care Individual (PT) Time In 1300 Time Out 1345 Total Time with Patient (Min) 45 min Missed Minutes Missed Minutes 0 Bertha Dawn, PT 09/22/2017, 2:44 PM * OT Treatment Note - Xiomy Logan, OT - 09/22/2017 12:45 PM CDT 09/22/17 0908 Pain Assessment Pain Context Therapy Assessment Prior to Treatment Pain Score 0 - No pain Eating Feeding Comments issued built up foam for pt use with eating utensils Grooming Grooming Where Assessed Standing at sink Grooming Comments OT provided SBA while pt performs oral care w/denture removal, cleaning and application with set up assist; OT encouraged pt to use RUE in several aspects of task, especially as a helper limb, which pt performs well. Bathing Bathing Where Assessed Seated in shower Bathing Comments pt able to bathe all body parts, assist for drying back; OT encouraged pt's use ofRUE; issued bath shirin for right hand use (after shower). pt able to use RUE as helper limb; needs frequent reminders ro use right, as she over-compensates w/LUE. Upper Body Dressing Upper Body Dressing Where Assessed Standing Upper Body Dressing Comments OT assessed pt's ability to fasten bra in front, using both hands, however, is not possible at this time; briefly discussed velcro adapation for bra; dons shirt w/cueing to use RUE to assist w/pulling up over head Lower Body Dressing Lower Body Dressing Comments instructed pt to use rt hand on right side of brief and slacks when threading and pulling up; good return demo; needs incidental assist for pulling up both. dons shoes indep Shower Transfers Shower Transfer Minimal Assistance Shower Transfer to Shower seat with back Shower Transfer Technique Ambulatory (no AD) Bed, Chair, Wheelchair Transfers Bed, Chair, Wheelchair Transfer Contact Guard Assistive Devices Used No Device Bed/Chair Transfer Comments no AD in pt room so OT provided GAS BURNER OPERATOR with gait belt for all transfers, and ambulation to/from BR for self care Standing Tolerance Standing Tolerance Time (mins) stands for 10+ mins at sink during oral care, with good tolerance Coordination Training Coordination Training Narrative OT instructed pt in functional use of RUE for tasks such as turningtv on/off, using volunme and channel dials and turning on phone. pt shows fairly good return demo but will benefit from additional training Grasp and Pinch Training Grasp and Pinch Training Functional activities working towards skill to form grasp and voluntary release;Functional activities working towards skill to use tip to tip pinch Treatment, Outcomes, and Plan OT Narrative: Mrs. Long actively participates in self care and coordination tasks. She demonstrates good potential for improved functional use of RUE and increased independence in self care OT Treatment Outcomes: Patient tolerated treatment well;Patient is progressing toward STG(s);Improved ADL performance;Improved ability to tolerate 90 min. therapy session;Improved ability to perform functional transfers OT Summary Plan of Care Continue with current plan of care Individual (OT) Time In 0858 Time Out 1028 Total Time with Patient (Min) 90 min Missed Minutes Missed Minutes 0 XIOMY LOGAN OT * [facility] Treatment Note - Inge Vega - 09/22/2017 12:13 PM CDT 09/22/17 1030 Patient Subjective Report Patient Subjective Report Pt seen alert and in chair; agreeable to treatment. Pain Assessment Pain Context Therapy Assessment Prior to Treatment Pain Assessment None/denies pain Daily Treatment Cognitive Communication Short-term memory;Semi-complex to complex attention;Processing information of increased length or complexity;Functional reading for activites of daily living;Verbal organization;Organization;Planning and sequencing;Compensatory techniques for cognition Treatment Outcome and Plan of Care ST Narrative: Pt independently recalled events of her morning including therapy and breakfast. Pt completed functional billing information task to address functional thought organization, reasoning, and attention with 67% accuracy with minimal assistance. Slow processing speed throughout task was noted. Pt completed a thought organization, reasoning, sequencing and planning task with 80% accuracywith minimal assistance. Pt completed thought organization task identifying similarities between two words with 56% accuracy with minimal assistance. Recommend to continue current plan of care. *Pt left in room with call light and phone within reach. ST Session Outcomes Tolerated treatment well;Progressing toward STGs;Minimal cues during session;Patient/family education progressing ST Summary Plan of Care Continue with current plan of care Individual (ST) Time In 1030 Time Out 1115 Total Time with Patient (Min) 45 min Missed Minutes Missed Minutes 0 INGE VEGA Cosigned by ST Uyen at 09/22/2017 12:15 PM CDT * Plan of Care - Mata Downs RN - 09/22/2017 11:18 AM CDT Fall Safety ??? Free from fall injury Progressing * Plan of Care - Anitha Negron RN - 09/21/2017 10:56 PM CDT Problem: Infection Goal: Absence of infection and prevention of transmission during hospitalization Outcome: Progressing Problem: Fall Safety Goal: Free from fall injury Outcome: Progressing Problem: Knowledge Deficit Goal: Patient and/or family demonstrate readiness to learn Outcome: Progressing Goal: Patient and/or family verbalizes understanding of education, and/or performs desired skill Outcome: Progressing Problem: Discharge Planning Goal: Discharge to home or other facility with appropriate resources Outcome: Progressing Goal: mud analysis operator will develop a plan to decrease their burden and enhance comfort in role Outcome: Progressing Problem: Knowledge Deficit Goal: Patient/family/caregiver demonstrates understanding of disease process, treatment plan, medications, and discharge instructions Outcome: Progressing Problem: Potential for Compromised Skin Integrity Goal: Skin integrity is maintained or improved Outcome: Progressing Goal: Nutritional status is improving Outcome: Progressing * Team Conference - Lisseth Child RN - 09/21/2017 3:20 PM CDT Team Conference Note Date: 09/21/2017 Time: 3:20 PM Patient Name: Maria Long Date of : 1960 Sex: Female Room/Bed: 321/321-1 Payor Info: No coverage found. Admit Date/Time: 09/15/2017 7:26 PM Patient Active Problem List Diagnosis Date Noted ??? Essential hypertension 09/15/2017 ??? Diabetes mellitus without mention of complication, type II or unspecified type, uncontrolled 09/15/2017 ??? Hemiplegia affecting right dominant side 09/15/2017 ??? Dysarthria 09/15/2017 ??? Dyslipidemia with high density lipoprotein below reference range and triglyceride above reference range due to type 2 diabetes mellitus 09/15/2017 ??? Multiple lacunar infarcts 09/15/2017 ??? Morbid obesity 09/15/2017 Team Members Present: Attendees: Lisseth Child RN, Shanae Chambers, TEODORO, Pati Dean LPN, Carlos A Sherwood, DaneD, [facility] (Dr Gopi Ellis, PHD; Steffany Yang, PT) Patient/Family Present: Patient Present: No Patient's Family Present: No Anticipated Discharge 10/06/2017 Discharge Plan: Discharge Destination Type: Own Home Potential Barriers to Return to Prior Living (Use comments to be specific): Caregiver limitations;Architectural/environmental barrier(s);Potential need for 24 hour care;Basic living needs (including medication access) Clinical Barriers : Medication Medications: Current Facility-Administered Medications: ??? Alogliptin Benzoate (NESINA) 6.25 mg, 6.25 mg, Oral, Once a day, Yue Reed MD, 6.25 mg at 09/21/17 0840 ??? aspirin EC tablet 81 mg, 81 mg, Oral, Once a day, Yue Reed MD, 81 mg at 09/21/17 0840 ??? atorvastatin (LIPITOR) tablet 40 mg, 40 mg, Oral, Nightly, Yue Reed MD, 40 mg at 045 ??? clotrimazole (LOTRIMIN) 1 % cream, , Topical, 2 times per day, Yue Reed MD ??? dextrose (GLUTOSE) 40 % oral gel 15 g, 15 g, Oral, PRN, Yue Reed MD ??? dextrose 5 % and sodium chloride 0.45 % infusion, 50 mL/hr, Intravenous, PRN, Yue Reed MD ??? dextrose 50 % solution 25 g, 25 g, Intravenous, PRN, Yue Reed MD ??? enoxaparin (LOVENOX) syringe 40 mg, 40 mg, Subcutaneous, Q24H PRERNA, Yue Reed MD, 40 mg at 09/21/17 0526 ??? glimepiride (AMARYL) tablet 4 mg, 4 mg, Oral, Daily with breakfast, Yue Reed MD, 4 mg at 09/21/17 0750 ??? glucagon (human recombinant) injection 1 mg, 1 mg, Intramuscular, PRN, Yue Reed MD ? ? insulin lispro (HumaLOG) injection 0-12 Units, 0-12 Units, Subcutaneous, AC & HS, 2 Units at 09/20/17 0814 AND POCT glucose, , , AC & HS, Yue Reed MD ??? metFORMIN (GLUCOPHAGE) tablet 500 mg, 500 mg, Oral, BID with meals, Yue Reed MD, 500 mg at 09/21/17 0750 Pharmacy: Anti-infective Durations: None IV Medication Transitions: None Pain Management: None Sedation Impact: None Glycemic Control: Humalog, metformin, glimepiride, alogliptan Medication Impact- Delirium: None Medication Schedule Impact- Side Effects/ Behavior: Hypoglyecmia risk Special Discharge Medications: Discharging on alogliptan Adverse Reactions Impacting Team Goals: None Duration of Ongoing Medication Taper: None Special Clinical Monitoring Protocols: None Nursing Team Conference: Physical Therapy Weekly Progress Note: PT Overall Functional Status: Ms. Long was just evaluated this session she currently: TRANSFERS: sit to stand with minimal assistance to assistive device and no device. GAIT: Ambulates 40 feet with fornt wheeled walker with hand splint and mnimal assistnace and 20 feet iwth single point cane and minimal assistance. ELEVATIONS: ascends/descends 1 4 inch step with minimal assistance. WHEELCHAIR: PRopels manaual wheelchair 150 feet with supervision. She would benefit from continued skilled PT per POC to maximize safety,functional abiltiies, and independence. (09/16/17 1605) Facilitating Factors in Goal Achievement: (just evaluated this session) (09/16/17 1609) Barriers: (just evaluated this session) (09/16/17 1609) Short Term Goals: Transfer Goals - Short Term Transfer Goals - Short Term: Short Term 1, Short Term 2 (09/16/17 160) Transfer Short Term Goal 1: sit to stand with contact guard assistance (09/16/17 1607) Transfer Short Term Goal 1 Status: Established (09/16/17 160) Transfer Short Term Goal 2: stand pivot with contact guard assistance (09/16/17 1607) Transfer Short Term Goal 2 Status: Established (09/16/17 1607) Expected Achievement Date: 09/22/17 (09/16/17 160) Bed/Mat Mobility Goals - Short Term Bed/Mat Mobility Goals - Short Term: Short Term 1 (09/16/17 160) Bed/Mat Mobility Short Term Goal 1: supine to and from sit with supervision (09/16/17 160) Bed/Mat Mobility Short Term Goal 1 Status: Established (09/16/17 1607) Expected Achievement Date: 09/22/17 (09/16/17 1607) Gait Goals - Short Term Gait Goals - Short Term: Short Term Goal 1 (09/16/17 1608) Gait Short Term Goal 1: Ambulate 100 feet with front wheeled walker with splint and contact guard assistance. (09/16/17 1608) Gait Short Term Goal 1 Status: Established (09/16/17 1608) Expected Achievement Date: 09/22/17 (09/16/17 1608) Elevation Goals - Short Term Elevation Goals - Short Term: Short Term 1, Short Term 2 (09/16/17 1608) Elevation Short Term Goal 1: ascend/descend curb step with front wheeeld walker and minimal assistance (09/16/17 1608) Elevation Short Term Goal 1 Status: Established (09/16/17 1608) Elevation Short Term Goal 2: ascend/descedn 4 4 inch steps with one rail and contact guard assistance (09/16/17 1608) Elevation Short Term Goal 2 Status: Established (09/16/17 1608) Expected Achievement Date: 09/22/17 (09/16/17 1608) Wheelchair Management and Propulsion Goals - Short Term Wheelchair Management and Propulsion Goals - Short Term: Short Term 1 (09/16/17 1609) Wheelchair Management and Propulsion Short Term Goal 1: Propel manaul wheelchair 150 feet modified independent (09/16/17 1609) Wheelchair Management and Propulsion Short Term Goal 1 Status: Established (09/16/17 1609) Expected Achievement Date: 09/22/17 (09/16/17 1609) Care Home Goals: Transfer Goals - Care Home Transfer Goals - Care Home: prison 1, intermodal customer service 2 (09/16/17 1602) Transfer Care Home Goal 1: sit to stand with modified independence (09/16/17 1602) Transfer Care Home Goal 1 Status: Established (09/16/17 1602) Transfer Curb Supervisor Goal 2: stand pviot with modified idnependence (09/16/17 1602) Transfer Curb Supervisor Goal 2 Status: Established (09/16/17 1602) Expected Achievement Date: 10/07/17 (09/16/17 1602) Bed/Mat Mobility Goals - Curb Supervisor Bed/Mat Mobility Goals - Care Home: Curb Supervisor 1 (09/16/17 1603) Bed/Mat Mobility Care Home Goal 1: supine to and from sit with independence (09/16/17 1603) Bed/Mat Mobility Care Home Goal 1 Status: Established (09/16/17 1603) Expected Achievement Date: 10/07/17 (09/16/17 1603) Gait Goals - Curb Supervisor Gait Goals - Curb Supervisor: Care Home Goal 1 (09/16/17 1603) Gait Care Home Goal 1: Ambulate 150 feet with least restrictive assistive device and modified independence (09/16/17 1603) Gait Curb Supervisor Goal 1 Status: Established (09/16/17 1603) Expected Achievement Date: 10/07/17 (09/16/17 1603) Elevation Goals - Curb Supervisor Elevation Goals - Care Home: Curb Supervisor 1, Care Home 2 (09/16/17 1603) Elevation Care Home Goal 1: ascend/descend 1 curb step with modified independence (09/16/17 1603) Elevation Curb Supervisor Goal Status: Established (09/16/17 1603) Elevation Curb Supervisor Goal 2: sacend/descend 4 steps with rail and supervision (09/16/17 1603) Elevation Curb Supervisor Goal 2 Status: Established (09/16/17 1603) Expected Achievement Date: 10/07/17 (09/16/17 1603) Wheelchair Management and Propulsion Goals - Care Home Wheelchair Management and Propulsion Goals - Care Home: Curb Supervisor 1 (09/16/17 1604) Wheelchair Management and Propulsion Curb Supervisor Goal 1: Propel manual wheelchair 150 feet with supervision (09/16/17 1604) Wheelchair Management and Propulsion Curb Supervisor Goal 1 Status: Established (09/16/17 1604) Expected Achievement Date: 09/22/17 (09/16/17 1604) Other PT Care Home Goals Other Goals - Care Home: Curb Supervisor 1 (09/16/17 1605) Other Care Home Goal 1: PASS to be completed (09/16/17 1605) Other Curb Supervisor Goal 1 Status: Established (09/16/17 1605) Expected Achievement Date: 10/07/17 (09/16/17 1605) Occupational Therapy Weekly Progress Note: OT Overall Functional Status: Ms Long is making good progress in occupational therapy and current functional status is as follows: EATING: with setup GROOMING: with minimal assistance for denturecare seated BATHING: with contact guard assistance using shower chair and grab bars (improved from minimal assistance) UPPER BODY DRESSING: with minimal assistance for bra fastener LOWER BODY DRESSING: with minimal assistance (improved from moderate assistance) TOILETING: with maximal fluctuating to moderate assistance (improved from total assistance) BED/CHAIR TRANSFER: with minimal assistance (improved from moderate assistance) TOILET TRANSFER: with minimal assistance (improved from moderate a ssistance) TUB/SHOWER TRANSFER: with minimal assistance (improved from moderate assistance) . In addition to progress with ADLs and transfers, she has also made progress with R UE functional grasp and release, R UE ROM especially at shoulder, static standing balance, and force production for transfers. Continued impairments include decreased R UE functional use due to weakness, lack of ROM and decreased coordination, decreased high level cognitive skills impeding independence with IADLs, decreased dynamic standing balance due to R knee instability, and mild R inattention. Ms Long will benefit from continued inpatient occupational therapy to improve independence with ADLs and transfers to ensure safe discharge to least restrictive environment. (09/21/17719) Facilitating Factors in Goal Achievement: Patient understanding and knowledge, Patient compliance, Patient motivation, Use of compensatory strategies, Improved strength, Improved ROM (09/21/17721) Barriers: ROM limitations, Strength limitations, Balance deficits, Diminished endurance, Motor control deficits, Cognitive deficits, Decreased safety awareness, Visual deficits (09/21/17721) Short Term Goals: Eating Short Term Goals Eating Goals - Short Term: Short Term Goal 1 (09/21/17719) Eating Short Term Goal 1: with modified independence (09/21/17719) Eating Short Term Goal 1 Status: Not Achieved (09/21/17719) Expected Achievement Date: 09/28/17 (09/21/17719) Grooming Short Term Goals Grooming Goals - Short Term: Short Term Goal 1 (09/21/17719) Grooming Short Term Goal 1: with setup seated (09/21/17719) Grooming Short Term Goal 1 Status: Not Achieved (09/21/17719) Expected Achievement Date: 09/28/17 (09/21/17719) Bathing Short Term Goals Bathing Goals - Short Term: Bathing Short Term 1, Bathing Short Term 2 (09/21/17720) Bathing Short Term Goal 1: with contact guard assistance using grab bars and shower chair () Bathing Short Term Goal 1 Status: Achieved (09/21/17720) Bathing Short Term Goall 2: with stand by assistance using grab bars and shower chair (09/21/17720) Bathing Short Term Goal 2 Status: Established (09/21/17720) Expected Achievement Date: 09/28/17 (09/21/17720) Upper Body Dressing Short Term Goals Upper Body Dressing Goals - Short Term: Short Term Goal 1 (09/21/17720) UE Dressing Short Term Goal 1: with setup and cues (09/21/17720) UE Dressing Short Term Goal 1 Status: Not Achieved (09/21/17720) Expected Achievement Date: 09/28/17 (09/21/17720) Lower Body Dressing Short Term Goals Lower Body Dressing Goals - Short Term: Short Term Goal 1, Short Term Goal 2 (09/21/17720) LE Dressing Short Term Goal 1: with minimal assistance using hemitechnique (09/21/17720) LE Dressing Short Term Goal 1 Status: Achieved (09/21/17720) LE Dressing short term goal 2: with contact guard assistance using hemitechnique (09/21/17720) LE Dressing Short Term Goal 2 Status: Established (09/21/17720) Expected Achievement Date: 09/28/17 (09/21/17720) Toileting Short Term Goals Toileting Goals - Short Term: Short Term Goal 1, Short Term Goal 2 (09/21/17721) Toileting Short Term Goal 1: with maximal assistance using grab bars (09/21/17721) Toileting Short Term Goal 1 Status: Achieved (09/21/17721) Toileting Short Term Goal 2: with moderate assistance using grab bars (09/21/17721) Toileting Short Term Goal 2 Status: Established (09/21/17721) Expected Achievement Date: 09/28/17 (09/21/17721) Transfer Short Term Goals Transfer Goals-Short Term: Short Term 1, Short Term 2, Short Term 3 (09/21/17722) Transfer Short Term Goal 1: BED/CHAIR: with contact guard assistance using least restrictive device(09/21/17722) Transfer Short Term Goal1 Status: Established (09/21/17722) Transfer Short Term Goal 2: TOILET: with contact guard assistance using grab bars (09/21/17722) Transfer Short Term Goal 2 Status: Established (09/21/17722) Transfer Short Term Goal 3: TUB/SHOWER: with contact guard assistance using grab bars (09/21/17722) Transfer Short Term Goal 3 Status: Established (09/21/17 0723) Expected Achievement Date: 09/28/17 (09/21/17 0723) Curb Supervisor Goals: Eating Curb Supervisor Goals Eating Goals - Care Home: Care Home Goal 1 (09/16/17 1034) Eating Curb Supervisor Goal 1: with modified independence and dentures (09/16/17 1034) Eating Care Home Goal 1 Status: Established (09/16/17 1034) Expected Achievement Date: 10/14/17 (09/16/17 1034) Grooming Care Home Goals Grooming Goals - Care Home: Grooming Curb Supervisor 1 (09/16/17 1034) Grooming Care Home Goal 1: with modified independence using hemitechnique (09/16/17 1034) Grooming Curb Supervisor Goal 1 Status: Established (09/16/17 1034) Expected Achievement Date: 10/14/17 (09/16/17 1034) Bathing Curb Supervisor Goals Bathing Goals - Curb Supervisor: Bathing Curb Supervisor 1 (09/16/17 1035) Bathing Care Home Goal 1: with stand by assistance using grab bars (09/16/17 1035) Bathing Care Home Goal 1 Status: Established (09/16/17 1035) Expected Achievement Date: 10/14/17 (09/16/17 1035) Upper Body Dressing Care Home Goals Upper Body Dressing Goals - Care Home: Care Home Goal 1 (09/16/17 1035) UE Dressing Curb Supervisor Goal 1: with modified independence using hemitechnique (09/16/17 1035) UE Dressing Curb Supervisor Goal 1 Status: Established (09/16/17 1035) Expected Achievement Date: 10/14/17 (09/16/17 1035) Lower Body Dressing Curb Supervisor Goals Lower Body Dressing Goals - Curb Supervisor: Curb Supervisor Goal 1 (09/16/17 1036) LE Dressing Care Home Goal 1: with modified independence using hemitechnique (09/16/17 1036) LE Dressing Care Home Goal 1 Status: Established (09/16/17 1036) Expected Achievement Date: 10/14/17 (09/16/17 1036) Toileting Care Home Goals Toileting Goals - Care Home: Curb Supervisor Goal 1 (09/16/17 1036) Toileting Curb Supervisor Goal 1: with modified independence using grab bars (09/16/17 1036) Toileting Curb Supervisor Goal 1 Status: Established (09/16/17 1036) Expected Achievement Date: 10/14/17 (09/16/17 1036) Transfer Care Home Goals Transfer Care Home Goal 1: BED/CHAIR: with modified independence using least restrictive device (09/16/17 1037) Transfer Care Home Goal 1 Status: Established (09/16/17 1037) Transfer Curb Supervisor Goal 2: TOILET: with modified independence using grab bars (09/16/17 1037) Transfer Care Home Goal 2 Status: Established (09/16/17 1037) Transfer Care Home Goal 3: TUB/SHOWER: with stand by assistnace using grab bars (09/16/17 1037) Transfer Curb Supervisor Goal 3 Status: Established (09/16/17 1037) Expected Achievement Date: 10/14/17 (09/16/17 1037) Speech Therapy Weekly Progress Note: [employer]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 Long's current functional status is as follows: DIET: NDD3 and Thin liquids. SWALLOWING STRATEGIES: Upright 90 degrees, small bites/sips, slow rate, monitor right cheek for pocketing and alternation of solids/liquids. COMPREHENSION: Supervisory assist for basic comprehension. WFL for basic conversation and increased amount of assist for complex conversation. EXPRESSION:Supervisory assist for verbal expression. WFL for basic conversation with increased amount of assist for complex conversation. Improved speech intelligibility over the past few days. REASONING: Moderately impaired for basic reasoning tasks. Cues required half of the time for reasoning. D ecreased reasoning, thought organization, insight, and attention. MEMORY: Moderately impaired for basic memory tasks. She requires cues half of the time for basic memory. Noted difficulty with delayed recall paragraph recall, and carryover of novel information. PROGRESS: Mrs. Long has demonstrated progress through completion of the Cognitive Linguistic Quick Test (CLQT), resulting in score of2.0, indicating moderate impairments. Progress also noted with speech intelligibility, thought organization, and verbal reasoning. Recommend to continue current plan of care. (09/18/17 1442) Facilitating Factors in Goal Achievement: Patient understanding and knowledge, Patient motivation, Improvement in communication skills (09/18/17 1444) Barriers: Other (comment) (cognition) (09/18/17 1444) Short Term Goals: Expression Short Term Goals Expression Goals - Short Term: Short Term 1 (09/16/17 1248) Expression Short Term Goal 1: utilize speech intelligibility strategies at the conversational levelat 100% intelligibility with supervisory assist. (09/18/17 1443) Expression Short Term Goal 1 Status: Partially Achieved (09/18/17 1443) Expected Achievement Date: 09/25/17 (09/18/17 1443) Problem Solving Short Term Goals Problem Solving Goals - Short Term: Short Term 1 (09/16/17 1253) Problem Solving Short Term Goal 1: complete functional problem solving/reasoning tasks at 80% accuracy with min cues. (09/18/17 1443) Problem Solving Short Term Goal 1 Status: Not Achieved (09/18/17 1443) Expected Achievement Date: 09/25/17 (09/18/17 1443) Memory Short Term Goals Memory Goals - Short Term: Short Term 1 (09/16/17 1250) Memory Short Term Goal 1: complete short term memory tasks at 80% with minimal cues. (09/18/17 1443) Memory Short Term Goal 1 Status: Not Achieved (09/18/17 1443) Expected Achievement Date: 09/25/17 (09/18/17 1443) Additional Cognition Short Term Goals Additional Cognition Goals - Short Term: Short Term 1, Short Term 2 (09/16/17 1252) Additional Cognition Short Term Goal 1: complete thought organization tasks at 80% with minimal cues. (09/18/17 1443) Additional Cognition Short Term Goal 1 Status: Not Achieved (09/18/17 1443) Additional Cognition Short Term Goal 2: participate in CLQT, as appropriate. (09/18/17 1443) Additional Cognition Short Term Goal 2 Status: Achieved (09/18/17 1443) Expected Achievement Date: 09/25/17 (09/18/17 1443) Swallowing Short Term Goals Swallowing Goals - Short Term: Short Term 1 (09/16/17 1247) Swallowing Short Term Goal 1: tolerate regular solids and thin liquids with less than 10% s/s of aspiration and independent use of swallowing strategies. (09/18/17 1444) Swallowing Short Term Goal 1 Status: Not Achieved (09/18/17 1444) Expected Achievement Date: 09/25/17 (09/18/17 1444) Curb Supervisor Goals: Expression Curb Supervisor Goals Expression Goals - Care Home: Care Home 1 (09/16/17 1241) Expression Care Home Goal 1: participate in basic conversation with supervisory fior for use of speech intelligibility strategies and expression of thoughts/ideas. (09/16/17 1241) Expression Curb Supervisor Goal 1 Status: Established (09/16/17 1241) Expected Achievement Date: 09/30/17 (09/16/17 1241) Additional Cognition Care Home Goals Additional Cognition Goals - Care Home: Curb Supervisor 1 (09/16/17 1244) Additional Cognition Curb Supervisor Goal 1: participate in daily routines with minimal cues for basic memory and reasoning tasks to safely complete ADLs. (09/16/17 1244) Additional Cognition Care Home Goal 1 Status: Established (09/16/17 1244) Expected Achievement Date: 09/30/17 (09/16/17 1244) Swallowing Curb Supervisor Goals Swallowing Goals - Curb Supervisor: Care Home 1 (09/16/17 124) Swallowing Care Home Goal 1: tolerate the least restrictive diet with less than 10% s/s of aspiration for safe and adequate consumption of daily meals. (09/16/17 1245) Swallowing Care Home Goal 1 Status: Established (09/16/17 1245) Expected Achievement Date: 09/30/17 (09/16/17 124) Respiratory Team Conference: Nutrition Team Conference: Dietary Orders Start Ordered 09/21/17 0808 Adult Diet Therapeutic Diet: Low Fat, Carb Controlled; Carbohydrate Controlled: 5 Carb/75gm/meal (2000 calories); Diet Texture: Regular Bite-Cut; Liquid Consistency: All Liquids - No Restrictions Diet effective now Question Answer Comment Therapeutic Diet: Low Fat Therapeutic Diet: Carb Controlled Carbohydrate Controlled: 5 Carb/75gm/meal (2000 calories) Diet Texture: Regular Bite-Cut Liquid Consistency All Liquids - No Restrictions Place order in third democrat system. Done 09/21/17 0807 Height: 5' 6 (167.6 cm) Admit Weight: 196 lb 6 oz (89.1 kg) Current Weight: 196 lb 6 oz (89.1 kg) Body mass index is 31.7 kg/(m^2). Calorie Count: Case management: partnership manager arranged for 09/22/17 with dtr On oral diabetic meds and ss insulin only currently; pt was on insulin prior and could not afford insulin and stopped taking it; Dr Reed feels prob dc on oral meds ringworm on isolation and on treatment Goal to dc home with spouse and dtr and LUDIN Pain: no c/o voiced Cont of bowel and bladder Rash present on buttocks today and MD to assess Barriers: dif with high level Cog and will affect post dc IADLS assist; poor grasp UE right; decrease rt standing balance Diet: upgraded to reg with thn liquids MCDONALD high fall risk Less blockage of right knee Cosigned by Yue Reed MD at 09/21/2017 6:30 PM CDT Associated attestation - Yue Reed MD - 09/21/2017 7:30 PM EDT A team conference was held on 09/21/2017 and included members of the multidisciplinary team identified in the attendance section of this note. Issues related to Ms. Long's status include; Patient Active Problem List Diagnosis ??? Essential hypertension ??? Diabetes mellitus without mention of complication, type II or unspecified type, uncontrolled ??? Hemiplegia affecting right dominant side ??? Dysarthria ??? Dyslipidemia with high density lipoprotein below reference range and triglyceride above reference range due to type 2 diabetes mellitus ??? Multiple lacunar infarcts ??? Morbid obesity Ms. Hernandez progress toward rehabilitation goals, impediments to attaining these goals, and associated revisions to the treatment plans and goals were discussed by the team. Details of this multidisciplinary process are included below. Issues of particular significance at this time regarding progress towards rehabilitation goals and treatment plan include: Patient Active Problem List Diagnosis ??? Essential hypertension ??? Diabetes mellitus without mention of complication, type II or unspecified type, uncontrolled ??? Hemiplegia affecting right dominant side ??? Dysarthria ??? Dyslipidemia with high density lipoprotein below reference range and triglyceride above reference range due to type 2 diabetes mellitus ??? Multiple lacunar infarcts ??? Morbid obesity As discussed during this team conference, I concur with the decisions set forth by the members of the multidisciplinary team. Ms. Long continues to require frequent physician visits and 24 hours per day acute rehabilitation nursing care in order to meet medical needs and progress toward the achievement of the rehabilitation goals. YUE REED MD 09/21/2017 6:30 PM * PT Treatment Note - Scott Yang PT - 09/21/2017 12:18 PM CDT 09/21/17 1032 Subjective Patient Report Subjective Patient Report Pt reports feeling well this date. Pain Assessment Pain Context Therapy Assessment Prior to Treatment Pain Assessment None/denies pain Transfers Transfer Yes Transfer 1 Transfer to 1 Sit Transfer From 1 Stand Technique 1 Sit to stand Transfer Level of Assistance 1 Minimal Assistance Trials/Comments 1 To WW; min A due to UE assist on R with arm placement Transfers 2 Transfer to 2 Wheelchair Transfer From 2 Mat Technique 2 Stand pivot Transfer Level of Assistance 2 Contact Guard Trials/Comments 2 Without AD Ambulation Surface Even surface;Indoor;Tile Assistive Device RW (R UE splint ) Ambulation Level of Assistance Contact Guard Distance (feet) 200 ft Gait Analysis Pt ambulates 200 ft with WW and R hand splint; CGA. Pt has decreased awareness to deviations; pt hyperextends R LE, foot flat gait, absent heel strike, and decreased step length L due to stance on R. Pt fatigues after 200 ft. Ambulates additional 150 ft with focus on gait deviations. Wheelchair Management Wheelchair Level of Assistance Close Supervision Distance Traveled in Wheelchair (feet) 50 ft Wheelchair Propulsion Surface Even surface;Indoor;Tile Propulsion Method Bilateral lower extremity Wheelchair Analysis Pt propels self to room 50 ft; distance not limited. Increased time to complete. Therapeutic Exercises Seated Position Pt performs seated LAQ with focus on control, marching, and cone tap x 3 cones with2 lb weights. Standing Position Pt performs standing step taps x 20 reps forward and lateral. VCs for improved posture. Standing without UE support alternating toe taps with DF. 1 UE support heel raises x 20 reps. Mat position Pt performs supine hip abduction, briding, heel slides, with 2 lb ankle weights, knee to chest with physioball and focus on R LE control x 2 reps, sidelying clam shells. All therex to improve strength, R LE control, decreased deviations with gait and transfers, and improve independence. Pt tolerates therex well however fatigues quickly needing rest breaks. VCs for improved breathing. Static Sitting Balance Static Sitting Balance Support Feet supported Static Sitting Level of Assistance Distant Supervision Static Sitting-# of Mins/Comments < 5 mins Therapeutic Activities and Neuromuscular Re-education Therapeutic Activities and Neuromuscular Re-education Pt performs seated cone tap with 2 lb weights; pt has difficulty with control R LE and decreased force production. High level balance; step lungeonto foam with 1 UE support; pt has foot catch and decreased force production multiple reps necessitating min A. Standing static balance with feet together x 3 min without UE support and CGA. Pt performs static standing balance with eyes closed and feet together x 1 min with min A for correction. SLS x 15 sec multiple reps with 1 UE support and CGA. Unable to perform without UE support and mod A. Outcomes PT Treatment Outcomes: Patient tolerated treatment well PT Summary: Pt tolerates session well. Focus on strength deficits and deviations this date. Pt improves in awareness to deviations however slow processing demonstrated at times. Pt conitnues to benefit from PT. Pt reports no pain at end of session; pt seated in chair with belt in place and call light in reach upon exit. PT Summary Plan of Care Continue with current plan of care Individual (PT) Time In 1032 Time Out 1202 Total Time with Patient (Min) 90 min Missed Minutes Missed Minutes 0 Chart Correction Type of Chart Edit Addendum Reason for Correction Additional information added Name Scott Yang Date 09/21/17 Time 1218 SCOTT YANG PT * [employer]MAN Treatment Note - Inge Vega - 09/21/2017 12:11 PM CDT 09/21/17 0730 Patient Subjective Report Patient Subjective Report Pt seen alert and in chair; agreeable to treatment. Pain Assessment Pain Context Therapy Assessment Prior to Treatment Pain Assessment NRS 0-10 Pain Score 0 - No pain Daily Treatment Cognitive Communication Orientation;Short-term memory;Lingustic calculation for daily planning;Verbal organization;Compensatory techniques for cognition Treatment Outcome and Plan of Care ST Narrative: Pt seen with breakfast to observe tolerance of solids and use of strategies. Pt used strategies (taking small bites/drinks, sitting at a 90 degree angle, checking right cheek for pocketing) with minimal assistance throughout meal. Pt reminded that strategies are posted on wall;minimalcues for carryover. Pt tolerated solids with small amount of pocketing in right cheek and no s/s ofaspiration. Pt demonstrated occasional throat clearing and small coughs with large drinks of thin liquid trials. Improvement was noted when reminded to take small sips. Pt demonstrated short-term memory abilities by independently recalling what she did over the weekend and who had visited her. Pt completed functional organization task by making selections from tomorrow's menu with minimal assistance. Pt completed thought organization and reasoning task by naming similarities and differences between two words with 56% accuracy with moderate to maximal assistance. Recommend to continue current plan of care. *Pt left in room with call light and phone within reach. ST Session Outcomes Tolerated treatment well;Progressing toward STGs;Moderate cues during session;Patient/family education progressing;Diet upgraded ST Summary Plan of Care Continue with current plan of care Individual (ST) Time In 0730 Time Out 0815 Total Time with Patient (Min) 45 min Missed Minutes Missed Minutes 0 INGE VEGA Cosigned by ST Uyen at 09/21/2017 12:25 PM CDT * OT Treatment Note - Shanae Chambers OT - 09/21/2017 10:57 AM CDT 09/21/17 0944 Pain Assessment Pain Context Therapy Assessment Prior to Treatment Pain Assessment NRS 0-10 Pain Score 0 - No pain Grooming Grooming Comments setup for handwashing seated after toileting Toileting Toileting Moderate Assistance Toileting Where Assessed Toilet Toilet Comments Pt completes 2/3 aspects of task with assist to don pants over R side of hips, therapist blocks R knee to prevent buckling and pt intermittently using grab bars for UE support Toilet Transfers Toilet Transfer Contact Guard Toilet Transfer To Standard toilet Toilet Transfer From Wheelchair Toilet Transfer Technique Stand pivot Toilet Transfers Comments use of grab bars and blocking of L knee to prevent buckling Bed, Chair, Wheelchair Transfers Bed, Chair, Wheelchair Transfer Contact Guard Bed/Chair Transfer to Stand Bed/Chair Transfer from Wheelchair Bed/Chair Transfer Technique Sit to stand;Stand to sit Assistive Devices Used No Device Bed/Chair Transfer Comments CGA for sit to and from stand transfer at table Standing Tolerance Standing Tolerance Time (mins) 10 min Activity static standing during cognitive table top task Functional Standing Tolerance Comments intermittent support of UEs on table for balance, cues for equal weight shifting, no noted R knee buckling Standing Assist Contact Guard Coordination Training Coordination Training Narrative Pt completes R UE neuro re-education and FMC training using R UE toplace large pegs into foam board with increased time and frequent rest breaks due to pt c/o kaitlynn noted discoordination as pt becomes fatigued. She requires increased time and places 15 pegs within 18 min with cues for prolonged pinch and form. Pt then removes pegs and places them with R UE in bucket to L side crossing midline promoting shoulder flexion and prolonged grasp. Task completed to improve functional use of R UE in dailiy tasks. Other Interventions Narrative: COGNITION: pt completes 20 pc puzzle with minimal cues, but good initial strategy to find end peices of puzzle first then middle peices. She requires cues for thought translation using visual reference to reduce amount of use of trial and error reasoning Treatment, Outcomes, and Plan OT Narrative: Pt demos good progress with R UE shoulder ROM, R UE FMC and functional transfers. POCto continue addressing functional use of R UE, IADL management, and balance OT Treatment Outcomes: Safety device reapplied;Patient tolerated treatment well;Patient is progressing toward STG(s) OT Summary Plan of Care Continue with current plan of care Individual (OT) Time In 943 Time Out 1029 Breaks/Pauses (Min) 0 mins Total Time with Patient (Min) 45 min Missed Minutes Missed Minutes 0 SHANAE CHAMBERS OT 09/21/2017 10:57 AM * OT Weekly Progress Note - Shanae Chambers OT - 09/21/2017 7:24 AM CDT Occupational Therapy Weekly Progress Note: OT Overall Functional Status: Ms Long is making good progress in occupational therapy and current functional status is as follows: EATING: with setup GROOMING: with minimal assistance for denturecare seated BATHING: with contact guard assistance using shower chair and grab bars (improved from minimal assistance) UPPER BODY DRESSING: with minimal assistance for bra fastener LOWER BODY DRESSING: with minimal assistance (improved from moderate assistance) TOILETING: with maximal fluctuating to moderate assistance (improved from total assistance) BED/CHAIR TRANSFER: with minimal assistance (improved from moderate assistance) TOILET TRANSFER: with minimal assistance (improved from moderate a ssistance) TUB/SHOWER TRANSFER: with minimal assistance (improved from moderate assistance) . In addition to progress with ADLs and transfers, she has also made progress with R UE functional grasp and release, R UE ROM especially at shoulder, static standing balance, and force production for transfers. Continued impairments include decreased R UE functional use due to weakness, lack of ROM and decreased coordination, decreased high level cognitive skills impeding independence with IADLs, decreased dynamic standing balance due to R knee instability, and mild R inattention. Ms Long will benefit from continued inpatient occupational therapy to improve independence with ADLs and transfers to ensure safe discharge to least restrictive environment. (09/21/17719) Facilitating Factors in Goal Achievement: Patient understanding and knowledge, Patient compliance, Patient motivation, Use of compensatory strategies, Improved strength, Improved ROM (09/21/17721) Barriers: ROM limitations, Strength limitations, Balance deficits, Diminished endurance, Motor control deficits, Cognitive deficits, Decreased safety awareness, Visual deficits (09/21/17721) Short Term Goals: Eating Short Term Goals Eating Goals - Short Term: Short Term Goal 1 (09/21/17719) Eating Short Term Goal 1: with modified independence (09/21/17719) Eating Short Term Goal 1 Status: Not Achieved (09/21/17719) Expected Achievement Date: 09/28/17 (09/21/17719) Grooming Short Term Goals Grooming Goals - Short Term: Short Term Goal 1 (09/21/17719) Grooming Short Term Goal 1: with setup seated (09/21/17719) Grooming Short Term Goal 1 Status: Not Achieved (09/21/17719) Expected Achievement Date: 09/28/17 (09/21/17719) Bathing Short Term Goals Bathing Goals - Short Term: Bathing Short Term 1, Bathing Short Term 2 (09/21/17720) Bathing Short Term Goal 1: with contact guard assistance using grab bars and shower chair () Bathing Short Term Goal 1 Status: Achieved (09/21/17720) Bathing Short Term Goall 2: with stand by assistance using grab bars and shower chair (09/21/17720) Bathing Short Term Goal 2 Status: Established (09/21/17720) Expected Achievement Date: 09/28/17 (09/21/17720) Upper Body Dressing Short Term Goals Upper Body Dressing Goals - Short Term: Short Term Goal 1 (09/21/17720) UE Dressing Short Term Goal 1: with setup and cues (09/21/17720) UE Dressing Short Term Goal 1 Status: Not Achieved (09/21/17720) Expected Achievement Date: 09/28/17 (09/21/17720) Lower Body Dressing Short Term Goals Lower Body Dressing Goals - Short Term: Short Term Goal 1, Short Term Goal 2 (09/21/17720) LE Dressing Short Term Goal 1: with minimal assistance using hemitechnique (09/21/17720) LE Dressing Short Term Goal 1 Status: Achieved (09/21/17720) LE Dressing short term goal 2: with contact guard assistance using hemitechnique (09/21/17720) LE Dressing Short Term Goal 2 Status: Established (09/21/17720) Expected Achievement Date: 09/28/17 (09/21/17720) Toileting Short Term Goals Toileting Goals - Short Term: Short Term Goal 1, Short Term Goal 2 (09/21/17721) Toileting Short Term Goal 1: with maximal assistance using grab bars (09/21/17721) Toileting Short Term Goal 1 Status: Achieved (09/21/17721) Toileting Short Term Goal 2: with moderate assistance using grab bars (09/21/17721) Toileting Short Term Goal 2 Status: Established (09/21/17721) Expected Achievement Date: 09/28/17 (09/21/17721) Transfer Short Term Goals Transfer Goals-Short Term: Short Term 1, Short Term 2, Short Term 3 (09/21/17722) Transfer Short Term Goal 1: BED/CHAIR: with contact guard assistance using least restrictive device(09/21/17722) Transfer Short Term Goal1 Status: Established (09/21/17722) Transfer Short Term Goal 2: TOILET: with contact guard assistance using grab bars (09/21/17722) Transfer Short Term Goal 2 Status: Established (09/21/17722) Transfer Short Term Goal 3: TUB/SHOWER: with contact guard assistance using grab bars (09/21/17722) Transfer Short Term Goal 3 Status: Established (09/21/17722) Expected Achievement Date: 09/28/17 (09/21/17722) Curb Supervisor Goals: Eating Curb Supervisor Goals Eating Goals - Curb Supervisor: Care Home Goal 1 (09/16/17 1034) Eating Curb Supervisor Goal 1: with modified independence and dentures (09/16/17 1034) Eating Care Home Goal 1 Status: Established (09/16/17 1034) Expected Achievement Date: 10/14/17 (09/16/17 1034) Grooming Curb Supervisor Goals Grooming Goals - Curb Supervisor: Grooming Care Home 1 (09/16/17 1034) Grooming Care Home Goal 1: with modified independence using hemitechnique (09/16/17 1034) Grooming Care Home Goal 1 Status: Established (09/16/17 1034) Expected Achievement Date: 10/14/17 (09/16/17 1034) Bathing Care Home Goals Bathing Goals - Curb Supervisor: Bathing Care Home 1 (09/16/17 1035) Bathing Curb Supervisor Goal 1: with stand by assistance using grab bars (09/16/17 1035) Bathing Curb Supervisor Goal 1 Status: Established (09/16/17 1035) Expected Achievement Date: 10/14/17 (09/16/17 1035) Upper Body Dressing Care Home Goals Upper Body Dressing Goals - Care Home: Curb Supervisor Goal 1 (09/16/17 1035) UE Dressing Care Home Goal 1: with modified independence using hemitechnique (09/16/17 1035) UE Dressing Curb Supervisor Goal 1 Status: Established (09/16/17 1035) Expected Achievement Date: 10/14/17 (09/16/17 1035) Lower Body Dressing Curb Supervisor Goals Lower Body Dressing Goals - Care Home: Curb Supervisor Goal 1 (09/16/17 1036) LE Dressing Curb Supervisor Goal 1: with modified independence using hemitechnique (09/16/17 1036) LE Dressing Care Home Goal 1 Status: Established (09/16/17 1036) Expected Achievement Date: 10/14/17 (09/16/17 1036) Toileting Curb Supervisor Goals Toileting Goals - Curb Supervisor: Care Home Goal 1 (09/16/17 1036) Toileting Care Home Goal 1: with modified independence using grab bars (09/16/17 1036) Toileting Curb Supervisor Goal 1 Status: Established (09/16/17 1036) Expected Achievement Date: 10/14/17 (09/16/17 1036) Transfer Care Home Goals Transfer Curb Supervisor Goal 1: BED/CHAIR: with modified independence using least restrictive device (09/16/17 1037) Transfer Care Home Goal 1 Status: Established (09/16/17 1037) Transfer Curb Supervisor Goal 2: TOILET: with modified independence using grab bars (09/16/17 1037) Transfer Care Home Goal 2 Status: Established (09/16/17 1037) Transfer Care Home Goal 3: TUB/SHOWER: with stand by assistnace using grab bars (09/16/17 1037) Transfer Care Home Goal 3 Status: Established (09/16/17 1037) Expected Achievement Date: 10/14/17 (09/16/17 1037) * CITY 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 Long's current functional status is as follows: DIET: NDD3 and Thin liquids. SWALLOWING STRATEGIES: Upright 90 degrees, small bites/sips, slow rate, monitor right cheek for pocketing and alternation of solids/liquids. COMPREHENSION: Supervisory assist for basic comprehension. WFL for basic conversation and increased amount of assist for complex conversation. EXPRESSION:Supervisory assist for verbal expression. WFL for basic conversation with increased amount of assist for complex conversation. Improved speech intelligibility over the past few days. REASONING: Moderately impaired for basic reasoning tasks. Cues required half of the time for reasoning. D ecreased reasoning, thought organization, insight, and attention. MEMORY: Moderately impaired for basic memory tasks. She requires cues half of the time for basic memory. Noted difficulty with delayed recall paragraph recall, and carryover of novel information. PROGRESS: Mrs. Long has demonstrated progress through completion of the Cognitive Linguistic Quick Test (CLQT), resulting in score of2.0, indicating moderate impairments. Progress also noted with speech intelligibility, thought organization, and verbal reasoning. Recommend to continue current plan of care. (09/18/17 1442) Facilitating Factors in Goal Achievement: Patient understanding and knowledge, Patient motivation, Improvement in communication skills (09/18/17 144) Barriers: Other (comment) (cognition) (09/18/17 1444) Short Term Goals: Expression Short Term Goals Expression Goals - Short Term: Short Term 1 (09/16/17 1248) Expression Short Term Goal 1: utilize speech intelligibility strategies at the conversational levelat 100% intelligibility with supervisory assist. (09/18/17 144) Expression Short Term Goal 1 Status: Partially Achieved (09/18/17 1443) Expected Achievement Date: 09/25/17 (09/18/17 144) Problem Solving Short Term Goals Problem Solving Goals - Short Term: Short Term 1 (09/16/17 1253) Problem Solving Short Term Goal 1: complete functional problem solving/reasoning tasks at 80% accuracy with min cues. (09/18/17 1443) Problem Solving Short Term Goal 1 Status: Not Achieved (09/18/17 1443) Expected Achievement Date: 09/25/17 (09/18/17 1443) Memory Short Term Goals Memory Goals - Short Term: Short Term 1 (09/16/17 1250) Memory Short Term Goal 1: complete short term memory tasks at 80% with minimal cues. (09/18/17 1443) Memory Short Term Goal 1 Status: Not Achieved (09/18/17 1443) Expected Achievement Date: 09/25/17 (09/18/17 1443) Additional Cognition Short Term Goals Additional Cognition Goals - Short Term: Short Term 1, Short Term 2 (09/16/17 1252) Additional Cognition Short Term Goal 1: complete thought organization tasks at 80% with minimal cues. (09/18/17 1443) Additional Cognition Short Term Goal 1 Status: Not Achieved (09/18/17 1443) Additional Cognition Short Term Goal 2: participate in CLQT, as appropriate. (09/18/17 1443) Additional Cognition Short Term Goal 2 Status: Achieved (09/18/17 1443) Expected Achievement Date: 09/25/17 (09/18/17 1443) Swallowing Short Term Goals Swallowing Goals - Short Term: Short Term 1 (09/16/17 1247) Swallowing Short Term Goal 1: tolerate regular solids and thin liquids with less than 10% s/s of aspiration and independent use of swallowing strategies. (09/18/17 1444) Swallowing Short Term Goal 1 Status: Not Achieved (09/18/17 1444) Expected Achievement Date: 09/25/17 (09/18/17 1444) Curb Supervisor Goals: Expression Curb Supervisor Goals Expression Goals - Curb Supervisor: Curb Supervisor 1 (09/16/17 1241) Expression Care Home Goal 1: participate in basic conversation with supervisory fior for use of speech intelligibility strategies and expression of thoughts/ideas. (09/16/17 1241) Expression Curb Supervisor Goal 1 Status: Established (09/16/17 1241) Expected Achievement Date: 09/30/17 (09/16/17 124) Additional Cognition Care Home Goals Additional Cognition Goals - Care Home: Care Home 1 (09/16/17 1244) Additional Cognition Care Home Goal 1: participate in daily routines with minimal cues for basic memory and reasoning tasks to safely complete ADLs. (09/16/17 1244) Additional Cognition Care Home Goal 1 Status: Established (09/16/17 1244) Expected Achievement Date: 09/30/17 (09/16/17 1244) Swallowing Care Home Goals Swallowing Goals - Care Home: Curb Supervisor 1 (09/16/17 1245) Swallowing Care Home Goal 1: tolerate the least restrictive diet with less than 10% s/s of aspiration for safe and adequate consumption of daily meals. (09/16/17 1245) Swallowing Care Home Goal 1 Status: Established (09/16/17 1245) Expected Achievement Date: 09/30/17 (09/16/17 1245) [facility] * Plan of Care - Bettina Milner RN - 09/20/2017 11:24 PM CDT Perineal Skin Integrity is Maintained or Improved Progressing Identify patient's discharge goals Progressing Coordinate Safe Discharge Plan Progressing Work with the treatment team to assess caregiver capability Progressing Discharge to home or other facility with appropriate resources Progressing mud analysis operator will develop a plan to decrease their burden and enhance comfort in role Progressing Free from fall injury Progressing Absence of infection and prevention of transmission during hospitalization Progressing Patient and/or family demonstrate readiness to learn Progressing Patient/family/caregiver demonstrates understanding of disease process, treatment plan, medications, and discharge instructions Progressing Skin integrity is maintained or improved Progressing Nutritional status is improving Progressing Perineal skin integrity is maintained or improved Progressing * Plan of Care - Gilma Hope RN - 09/20/2017 3:38 PM CDT Bowel Incontinence ??? Perineal Skin Integrity is Maintained or Improved Progressing Discharge Planning ??? Discharge to home or other facility with appropriate resources Progressing ??? 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 Free from fall injury Progressing Infection ??? Absence of infection and prevention of transmission during hospitalization Progressing Knowledge Deficit ??? Patient and/or family demonstrate readiness to learn Progressing ??? Patient and/or family verbalizes understanding of education, and/or performs desired skill Progressing Knowledge Deficit ??? Patient/family/caregiver demonstrates understanding of disease process, treatment plan, medications, and discharge instructions Progressing Potential for Compromised Skin Integrity ??? Skin integrity is maintained or improved Progressing ??? Nutritional status is improving Progressing Urinary Incontinence ??? Perineal skin integrity is maintained or improved Progressing Patient tolerated therapy with no complaints of pain. Pt VS WNL. Gilma BARRIOS, RN * OT Treatment Note - Ann Faye OT - 09/20/2017 12:46 PM CDT 09/20/17 0950 Pain Assessment Pain Context Therapy Assessment Prior to Treatment Pain Assessment None/denies pain Pain Score 0 - No pain Pain Evaluation and Follow-up Response to Therapy Interventions Improved activity tolerance;Improved mobility Pain Reassessment No pain Nursing notified of patient's pain assessment Not indicated - pain score 2 or less Bed, Chair, Wheelchair Transfers Bed, Chair, Wheelchair Transfer Contact Guard Bed/Chair Transfer to Stand Bed/Chair Transfer from Sit Bed/Chair Transfer Technique Sit to stand;Stand to sit Assistive Devices Used (table top) Bed/Chair Transfer Comments Pt completed sit to stand at table top with CGA due to decreased standing balance. Standing Tolerance Standing Tolerance Time (mins) 5 minutes Activity word search at table top Functional Standing Tolerance Comments decreased standing endurance noted, no LOB noted Standing Assist Contact Guard Neuromuscular Reducation Neuromuscular Narrative Pt participated in neuromuscular re-education of R UE with son and [id number] present. Pt completed composite flexion/extension x10, wrist flexion/extension x10-in gravity eliminated plane, elbow flexion/extension x10, shoulder flexion/extension x10 with support of arm a gainst gravity to 140 degrees and AAROM for full range, Pt completed shoulder ab/adduction with support for arm weight to 90 degrees, and shoulder shrugs x10. Pt required increased time to complete and was educated on visually attending to R UE to increase motor engram. She verbalizes understanding. Pt completed repetitive grasp/release of small cone in diagonal pattern x30 in both directions with increased time to complete. Pt attempted grasping 1 pegs and inserting into peg board. Pt demos increased difficulty, task modified with Pt grasping clothespin x5 and releasing into bucket with increased accuracy. Pt used R hand during word search with increased time and cueing to use R hand. Pt and family educated on tasks Pt can complete in room to promote coordination and AROM. They verbalize understanding. Treatment, Outcomes, and Plan OT Narrative: Pt participated well in therapy session today and son and daughter in law were educated on AROM and FMC tasks Pt could complete in room OT Treatment Outcomes: Patient tolerated treatment well;Patient is progressing toward STG(s) OT Summary Plan of Care Continue with current plan of care Individual (OT) Time In 0950 Time Out 1030 Total Time with Patient (Min) 40 min Missed Minutes Missed Minutes -5 ANN FAYE OT * CITY COUNCILMAN Treatment Note - [facility] - 09/20/2017 12:00 PM CDT 09/20/17 1030 Patient Subjective Report Patient Subjective Report Pt was seen in room following contact precautions. Pt was seen sitting upright in her wheelchair. Pain Assessment Pain Context Therapy Assessment Prior to Treatment Pain Assessment NRS 0-10 Pain Score 0 - No pain Daily Treatment Cognitive Communication Basic attention;Semi-complex to complex attention;Speed of processing;Verbal organization;Organization Treatment Outcome and Plan of Care ST Narrative: Pt was seen for individual 45 minute session targeting attention, thought organization, and sequencing. Pt completed visual ID attention tasks in which the pt had to ID clocks using a color code system for certain times. This task was completed with 90% accuracy. Pt completed verbal category matrix with moderate cues for word identification due to impaired thought organization. Pt completed 6-step sequencing with 75% accuracy. Pt independently completed a moderately complex word search. ST Session Outcomes Tolerated treatment well ST Summary Plan of Care Continue with current plan of care Individual (ST) Time In 1030 Time Out 1120 Breaks/Pauses (Min) 0 mins Total Time with Patient (Min) 50 min Missed Minutes Missed Minutes [address] * PT Treatment Note - Steffany J Selena PT - 09/20/2017 11:57 AM CDT 09/20/17 0815 Pain Assessment Pain Context Therapy Assessment Prior to Treatment Pain Assessment NRS 0-10 Pain Score 0 - No pain Pain Evaluation and Follow-up Response to Therapy Interventions Improved mobility;Improved activity tolerance;Improved social interactions Pain Reassessment No pain Nursing notified of patient's pain assessment Not indicated - pain score 2 or less Transfer 1 Transfer to 1 Stand Transfer From 1 Sit Technique 1 Sit to stand Transfer Level of Assistance 1 Minimal Assistance Trials/Comments 1 to FWW with min A for force production Transfers 2 Transfer to 2 Sit Transfer From 2 Stand Technique 2 Stand to sit Transfer Level of Assistance 2 Contact Guard Trials/Comments 2 with FWW and minimal cues for hand position Transfers 3 Transfer to 3 Car Transfer From 3 Wheelchair Technique 3 Stand pivot Transfer Level of Assistance 3 Contact Guard Trials/Comments 3 no AD but holds onto car frame and requires CGA, but takes multiple attempts to perform sit to stand out of low car. Ambulation Surface Even surface;Indoor;Tile Assistive Device RW (with right hand splint) Ambulation Level of Assistance Contact Guard;Minimal Assistance Distance (feet) 200 ft Gait Analysis Ambulates 200 feet x2 with FWW with right hand splint support with CGA and occasionally min A due to poor step length on riht and foot catching and patient having non-continuous steps. Deviations: decrease foot clearance on right, step to gait pattern with right, poor heel strike on right, increase reliance on FWW with UEs, and decrease joseline. Occasional difficulty with walker management around corners. Ambulates over compliant surface 10 feet x2 with FWW with right hand slint and min A for balance. Stairs Rails Left Assistive Device No device Stairs Level of Assistance Minimal Assistance Number of Steps 4 Stairs Height of Step 6-inch Stairs Analysis Ascends/descends 4 steps with left hand rail and minimal assistance. Right knee block available every step, but patient did not have instance of knee buckling and was not needed. Stepto pattern. Curb Assistive device RW (right hand splint) Curb Level of Assistance Minimal Assistance Curb Height 4 inch Curb Comment Ascends/descends a 4 inch curb step x2 with min A for balance during walker managementand cues for step to gait pattern. Wheelchair Management Wheelchair Level of Assistance Close Supervision Distance Traveled in Wheelchair (feet) 200 ft Wheelchair Type Manual Wheelchair Parts Management Yes Left Brakes Level of Assistance Minimal Verbal Cues Right Brakes Level of Assistance Minimal Verbal Cues Wheelchair Propulsion Surface Even surface;Indoor;Tile Propulsion Method Bilateral lower extremity;Left upper extremity Wheelchair Analysis Patient propel manual WC 200 feet with 4 left turns and 4 right turns with close supervision and increase time. Therapeutic Exercises Seated Position Performs LE strengthening of marching 3x10 and LAQ 3x10 with minimal cues for form. Activity tolerance Activity Type Standing Activity Endurance Fair Compromised ability to maintain sitting or standing? Yes Activity Comment Requires seated rest breaks throughout the session due to fatigue. Static Sitting Balance Static Sitting Balance Support Feet supported;No upper extremity supported Static Sitting Level of Assistance Close Supervision Static Sitting-# of Mins/Comments < 5 mins Static Standing Balance Static Standing Balance Assistive device needed (Comment) (FWW) Static Standing Level of Assistance Contact Guard Static Standing-# of Mins/Comments < 5 mins Therapeutic Activities and Neuromuscular Re-education Therapeutic Activities and Neuromuscular Re-education Weaving through 8 cones over 20 feet with FWWwith right surgical instrument maker splint - performed for improved walker management and turns due to poor demonstration of walker management around corner. Patient demonstrates decrease ability to stay within walker on right turns more than left turns. Cues required for correct position and min A provided for stability during gait. Special Test and Outcome Measures Special Test and Outcome Measures BBS (MCDONALD 23/56 indicating high fall risk. ) Outcomes PT Treatment Outcomes: Patient tolerated treatment well;Goals met for this session;Cues needed for safety;Improved ambulation performance;Improved balance and coordination;Increasing strength;Improving neuromuscular control PT Summary: Patient demonstrated improved stability on the right LE during this session, improved ambulation, and improved elevation with less assistance. PT Summary Plan of Care Continue with current plan of care Individual (PT) Time In 0815 Time Out 0945 Total Time with Patient (Min) 90 min Missed Minutes Missed Minutes 0 Steffany Yang DPT 09/20/2017 11:57 AM * Plan of Care - Bettina Milner RN - 09/20/2017 12:55 AM CDT Perineal Skin Integrity is Maintained or Improved Progressing Identify patient's discharge goals Progressing Coordinate Safe Discharge Plan Progressing Work with the treatment team to assess caregiver capability Progressing Discharge to home or other facility with appropriate resources Progressing mud analysis operator will develop a plan to decrease their burden and enhance comfort in role Progressing Free from fall injury Progressing Absence of infection and prevention of transmission during hospitalization Progressing Patient and/or family demonstrate readiness to learn Progressing Patient and/or family verbalizes understanding of education, and/or performs desired skill Progressing Patient/family/caregiver demonstrates understanding of disease process, treatment plan, medications, and discharge instructions Progressing Skin integrity is maintained or improved Progressing Nutritional status is improving Progressing Perineal skin integrity is maintained or improved Progressing * Plan of Care - Gilma Hope RN - 09/19/2017 6:22 PM CDT Bowel Incontinence ??? Perineal Skin Integrity is Maintained or Improved Progressing Case Management Discharge Goals ??? Identify patient's discharge goals Progressing ??? Coordinate Safe Discharge Plan Progressing ??? Work with the treatment team to assess caregiver capability Progressing Discharge Planning ??? Discharge to home or other facility with appropriate resources Progressing ??? 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 Free from fall injury Progressing Infection ??? Absence of infection and prevention of transmission during hospitalization Progressing Knowledge Deficit ??? Patient and/or family demonstrate readiness to learn Progressing ??? Patient and/or family verbalizes understanding of education, and/or performs desired skill Progressing Knowledge Deficit ??? Patient/family/caregiver demonstrates understanding of disease process, treatment plan, medications, and discharge instructions Progressing Potential for Compromised Skin Integrity ??? Skin integrity is maintained or improved Progressing ??? Nutritional status is improving Progressing Urinary Incontinence ??? Perineal skin integrity is maintained or improved Progressing Pt denies pain and discomfort throughout day. Pt set in chair during lunch and dinner. Gilma BARRIOS, RN * Plan of Care - Fortino Martinez RN - 09/18/2017 8:00 PM CDT Bowel Incontinence ??? Perineal Skin Integrity is Maintained or Improved Progressing Fall Safety ??? Free from fall injury Progressing Potential for Compromised Skin Integrity ??? Skin integrity is maintained or improved Progressing ??? Nutritional status is improving Progressing Urinary Incontinence ??? Perineal skin integrity is maintained or improved Progressing * PT Treatment Note - Peg Alonso, PT - 09/18/2017 2:45 PM CDT 09/18/17 8763 Subjective Patient Report Subjective Patient Report Pt consents to therapy Pain Assessment Pain Context Therapy Assessment Prior to Treatment Pain Assessment NRS 0-10 Pain Score 0 - No pain Cognition Overall Cognitive Status WFL Transfer 1 Transfer to 1 Sit Transfer From 1 Stand Technique 1 Sit to stand;Stand to sit Transfer Level of Assistance 1 Minimal Assistance Trials/Comments 1 no AD and rW Transfers 2 Transfer to 2 Wheelchair Transfer From 2 Chair with arms Technique 2 Stand pivot Transfer Level of Assistance 2 Minimal Assistance;Minimal Verbal Cues Trials/Comments 2 no AD Transfers 3 Transfer to 3 Wheelchair Transfer From 3 Toilet Technique 3 Stand pivot Transfer Level of Assistance 3 Minimal Assistance;Minimal Verbal Cues Trials/Comments 3 with grab bars, cues for sequency, assist for self care Ambulation Surface Even surface;Indoor Assistive Device RW (R hand splint) Ambulation Level of Assistance Minimal Assistance Distance (feet) 80 ft (x2) Gait Analysis ambulates 20 ft with RW and min assist for balance. Gait deviations include decreasedcadence, step length, increased trunk flexion. Slight path deviation x 3, difficulty navigating walker around cluttered corners Curb Assistive device RW (R hand splint) Curb Level of Assistance Minimal Assistance;Maximal Verbal Cues Curb Height 6 inch Curb Comment Ascends/descends 6 inch curb step x 2. Max cues for sequencing, min A for steadying, close block of R knee upon descent (leg behind thigh incase of buckle) Therapeutic Exercises Seated Position Pt instructed on importance of self ROM in bed or chair. Ankle pumps, LAQs, assisted UE ROM, and propping of R UE to protect shoulder joint Activity tolerance Activity Type Standing Activity Endurance Fair Compromised ability to maintain sitting or standing? Yes Activity Comment requires seated rest break after ambulation and elevation training. Noted SOB thatresolves with light breathing techniques and with time Outcomes PT Treatment Outcomes: Safety device reapplied;Patient tolerated treatment well;Goals met for this session PT Summary: Pt tolerated treatment session well with some SOB after ambulation and elevation training. Resolves with rest and deep breathing. Pt expresses a lot of insecurity and fear about elevationtraining. Benefits from step by step instruction as well as reasoning behind sequencing. Noted improvement in elevation height today. She will continue to benefit from skilled PT while inpatient to address remaining deficits and maximimze functional recovery. PT Summary Plan of Care Continue with current plan of care Individual (PT) Time In 1345 Time Out 1430 Total Time with Patient (Min) 45 min Missed Minutes Missed Minutes 0 * [employer] COUNCILMAN Treatment Note - [facility] - 09/18/2017 9:44 AM CDT 06/08/18 0900 Patient Subjective Report Patient Subjective Report Pt seen alert and in chair; cooperative throughout session. Pain Assessment Pain Context Therapy Assessment Prior to Treatment Pain Assessment None/denies pain Daily Treatment Cognitive Communication Basic attention;Short-term memory;Verbal problem solving;Planning and sequencing;Verbal organization;Compensatory techniques for cognition Treatment Outcome and Plan of Care ST Narrative: Delayed recall of 3/3 pt selected food items following a 10 minute delay with independence; carryover of items a further 20 minutes with independence. Educated on compensatory memory strategies to facilitate accurate recall in functional situations. Convergent naming task completed at80% accuracy with min cues; pt added a similar item to the category at 90% accuracy with min cues. Occasional word finding exhibited throughout session. Verbal reasoning task completed at 80% accuacywith minimal cues. Recommend to continue current plan of care. *left in room with call light and phone within ST Session Outcomes Tolerated treatment well;Progressing toward STGs;Patient/family education progressing;Moderate cues during session;Minimal cues during session ST Summary Plan of Care Continue with current plan of care Individual (ST) Time In 0900 Time Out 0945 Total Time with Patient (Min) 45 min Missed Minutes Missed Minutes [address] * OT Treatment Note - Shanae Chambers OT - 09/18/2017 9:00 AM CDT 09/18/17 0728 Pain Assessment Pain Context Therapy Assessment Prior to Treatment Pain Assessment NRS 0-10 Pain Score 0 - No pain Eating Eating Setup Eating Where Assessed Sitting at table Feeding Comments pt uses non dominant L UE for feeding due to R UE coordination and strength deficits. She requires setup for object manipulation due to R UE weakness Grooming Grooming Minimal Assistance Grooming Where Assessed Sitting at sink;Wheelchair Grooming Comments pt requires assist with denture care (placing fixodent on dentures and cleaning) but demos abilty to complete all other aspects of grooming and hygiene with setup seated Bathing Bathing Contact Guard Bathing Where Assessed Seated in shower;Standing in shower Bathing Comments pt stands briefly using grab bars to wash jamshid area and buttocks with CGA. Pt requires setup for soapy wash cloth to wash all other body parts seated at shower chair Toileting Toileting Moderate Assistance;Maximal Assistance Toileting Where Assessed Toilet Toilet Comments pt demos abilty to doff pants with CGA for balance, she completes toilet hygiene after voiding with setup and use of non dominant UE. Anticipate she will require assist for hygiene after BM. She requires assist to don pants over R hip Upper Body Dressing Dressing Upper Body Minimal Verbal Cues;Minimal Assistance Upper Body Dressing Where Assessed Sitting in chair Upper Body Dressing Comments pt requires cues for recall of hemitechnique and educatio nof hemitechnique. She demos understanding to don/doff pullover shirt. She requires cues for alternate strategy for bra management and educated on alternate bra options (clasp in front/ pullover bra) and she verbalizes understanding Lower Body Dressing Dressing Lower Body Minimal Assistance Lower Body Dressing Where Assessed Sitting in chair;Standing Lower Body Dressing Comments pt requires assist to don underpants/pants over R hip. She requries incraesed time to don socks and shoes and requries education for hemitechnique to thread LEs into pants Toilet Transfers Toilet Transfer Minimal Assistance Toilet Transfer To Standard toilet Toilet Transfer From Wheelchair Toilet Transfer Technique Stand pivot Toilet Transfers Comments use of grab bars and R knee instability Shower Transfers Shower Transfer Minimal Assistance Shower Transfer to Shower seat with back Shower Transfer From Wheelchair Shower Transfer Technique Stand pivot Shower Transfers Comments min assist and use of grab bars with blocking of R knee to prevent buckling Bed, Chair, Wheelchair Transfers Bed, Chair, Wheelchair Transfer Minimal Assistance Bed/Chair Transfer to Bed Bed/Chair Transfer from Wheelchair Bed/Chair Transfer Technique Stand pivot Bed/Chair Transfer Status With minimal assist Assistive Devices Used No Device Bed/Chair Transfer Comments R knee instability requiring blocking and min assist for transfer. She completes bed mobility supine to sitting with SBA Wheelchair Propulsion Surface Even surface;Indoor;Tile Propulsion Method Bilateral lower extremity Comments: greater than 150 feet with supervisoin for navigating environmental obstacles Neuromuscular Reducation Neuromuscular Narrative Pt participates in R UE neuro re-education emphasizing smooth and controlled movement with full ROM in pain free range (as pt fatigues and with wrist / shoulder movements pt lacks full ROM). She completes task in planes of abduction/adduction to 90 degrees, shoulder flexion and bicep curls x 5 reps then wrist supination/pronation, wrist flexion/extension, finger abduction/adduction, composite grasp/extension x 10 reps and x 2 sets for all exercises. She requires cues throughout and use of mirror for non compensatory movement and pacing. Task completed to improve RUE ROM and overall endurance for improved independence with self care skills. Coordination Training Coordination Training Narrative Pt participates in R UE FMC training using MSRT to pickling solution maker and replace 1 diameter circular items into slots with increased time and multiple instances of slippage dueto poor R UE grasp, pinch and strength. She requires frequent rest breaks due to c/o R UE fatigue but great motivation with task. Task completed over 10 min time period and she demos ability to complete 30% of task. She completes this task to improve functional use of R UE in self care skills especially with bra fastener. Treatment, Outcomes, and Plan OT Narrative: Pt demos good progress with dressing, bathing and R UE funciton. Continue skilled OT services per POC OT Treatment Outcomes: Safety device reapplied;Patient tolerated treatment well;Patient is progressing toward STG(s);Goals met for this session;Qualitative gains in function;Improved ADL performance OT Summary Plan of Care Continue with current plan of care Individual (OT) Time In 0728 Time Out 0859 Breaks/Pauses (Min) 0 mins Total Time with Patient (Min) 91 min Missed Minutes Missed Minutes 1 SHANAE CHAMBERS, OT 09/18/2017 9:00 AM Cardiac Education Needs Maria Anaya Ethan 09/18/2017 Diagnosis: Multiple lacunar infarcts [I63.8] The following education is provided during the Cardiac Recovery Program. Understanding your Heart Condition ??? Coronary Heart Disease ??? Heart Attack with warning signs ??? Congestive Heart Failure ??? Pacemakers ??? Coronary Artery Bypass Graft ??? Valve Replacement Managing Risk Factors ??? High Blood Pressure ??? Cholesterol ??? Diabetes Managing Medication Resuming Daily Activities ??? Traveling ??? Sexual Activity ??? Returning to work Lifestyle Modifications Increasing Physical Activity Smoking Cessation Managing Stress Nutrition Management Shopping Tips Safe Home Environment Energy Conservation Patient will not require further education. Continued education needs include: (Understanding HeartCondition, Managing Risk Factors, Managing Medications, Resuming Daily Activity, Lifestyle Modifications, Increasing Physical Activity, Smoking Cessation, Managing Stress, Nutrition Management, Shopping Trips, Safe Home Environment, Energy Conservation.) Were the educational needs met for Maria Long yes. Specific questions for rehab team? no SHANAE CHAMBERS OT 09/18/2017 2:37 PM * Plan of Care - Roxanne Lora RN - 09/17/2017 11:32 PM CDT Bowel Incontinence ??? Perineal Skin Integrity is Maintained or Improved Progressing Case Management Discharge Goals ??? Identify patient's discharge goals Progressing ??? Coordinate Safe Discharge Plan Progressing ??? Work with the treatment team to assess caregiver capability Progressing Discharge Planning ??? Discharge to home or other facility with appropriate resources Progressing ??? 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 Free from fall injury Progressing Infection ??? Absence of infection and prevention of transmission during hospitalization Progressing Knowledge Deficit ??? Patient and/or family demonstrate readiness to learn Progressing ??? Patient and/or family verbalizes understanding of education, and/or performs desired skill Progressing Knowledge Deficit ??? Patient/family/caregiver demonstrates understanding of disease process, treatment plan, medications, and discharge instructions Progressing Potential for Compromised Skin Integrity ??? Skin integrity is maintained or improved Progressing ??? Nutritional status is improving Progressing Urinary Incontinence ??? Perineal skin integrity is maintained or improved Progressing * PT Treatment Note - Bertha Dawn, PT - 09/17/2017 12:35 PM CDT 09/17/17 0801 Pain Assessment Pain Context Therapy Assessment Prior to Treatment Pain Assessment NRS 0-10 Pain Score 0 - No pain Bed Mobility Bed Mobility Performed on bed;Short sit to - from supine (supine to sito from elevated hob) Bed Mobility Level of Assistance Close supervision Transfer 1 Transfer to 1 Stand Transfer From 1 Sit Technique 1 Sit to stand Transfer Level of Assistance 1 Contact Guard Trials/Comments 1 to no AD Transfers 2 Transfer to 2 Sit Transfer From 2 Stand Technique 2 Stand to sit Transfer Level of Assistance 2 Contact Guard Trials/Comments 2 no AD Transfers 3 Transfer to 3 Toilet Transfer From 3 Wheelchair Technique 3 Stand pivot Transfer Level of Assistance 3 Minimal Assistance Trials/Comments 3 with grab bars, cues for safety required Ambulation Surface Even surface;Indoor Assistive Device RW (with R hand splint) Ambulation Level of Assistance Minimal Assistance Distance (feet) 120 ft Gait Analysis ambulates 120 feet with fww with R hand splint with minimal assistance for safety andbalance. gait deiations include dec joseline dec step length, dec control intermittently of R knee, dec base of support. Wheelchair Management Wheelchair Level of Assistance Close Supervision Distance Traveled in Wheelchair (feet) 160 ft Wheelchair Type Manual Wheelchair Parts Management (mod I brakes, seat belt) Wheelchair Propulsion Surface Even surface;Indoor Propulsion Method Bilateral lower extremity Wheelchair Analysis inc time to complete Activity tolerance Activity Type Standing Activity Endurance Fair Compromised ability to maintain sitting or standing? Yes Activity Comment requires rest breaks Therapeutic Activities and Neuromuscular Re-education Therapeutic Activities and Neuromuscular Re-education increased time spent for toileting as well asassisting pt dress. standing balance ocmpleted without ue support while pulling up and down pants and brief, min assist for balance and verbal cues for safety Outcomes PT Treatment Outcomes: Safety device reapplied;Patient tolerated treatment well;Patient is progressing toward STG PT Summary Plan of Care Continue with current plan of care Individual (PT) Time In 0730 Time Out 0815 Total Time with Patient (Min) 45 min Missed Minutes Missed Minutes 0 Bertha Dawn, PT 09/17/2017, 12:35 PM * [facility]IL[facility] Treatment Note - [facility] Uyen - 09/17/2017 11:54 AM CDT 09/17/17 1116 Patient Subjective Report Patient Subjective Report Pt seen alert and in chair in room; cooperative and friendly. Pain Assessment Pain Context Therapy Assessment Prior to Treatment Pain Assessment None/denies pain Daily Treatment Cognitive Communication Basic attention;Short-term memory;Verbal problem solving;Compensatory techniques for cognition Treatment Outcome and Plan of Care ST Narrative: Daily recall of events from the morning; improved account of details. Completed the [place] [employer] My Life Check . Lifestyle change recommendations and management were discussed with patient to promote a healthier lifestyle. Further education completed regarding heart healthy diet management and options through review of the Healthy Living packet. Due to error in website unable to print My Life Check score and paperwork (pt had received score of 2.1/10). Educated on signs of CVA (FAST); mod to max cues for recall of signs of stroke following 20 minute delay. Recommend to continue current plan of care. *left in room with call light and phone within reach ST Session Outcomes Tolerated treatment well;Progressing toward STGs;Patient/family education progressing;Moderate cues during session ST Summary Plan of Care Continue with current plan of care Individual (ST) Time In 1116 Time Out 1201 Total Time with Patient (Min) 45 min Missed Minutes Missed Minutes [address] * OT Treatment Note - Shanae Chambers OT - 09/17/2017 10:30 AM CDT 09/17/17 0945 Pain Assessment Pain Context Therapy Assessment Prior to Treatment Pain Assessment NRS 0-10 Pain Score 0 - No pain Bed, Chair, Wheelchair Transfers Bed, Chair, Wheelchair Transfer Minimal Assistance Bed/Chair Transfer to Wheelchair Bed/Chair Transfer from Mat Bed/Chair Transfer Technique Stand pivot Bed/Chair Transfer Status With minimal assist Assistive Devices Used No Device Bed/Chair Transfer Comments unsteady gait for pivot Therapeutic Exercise - ROM Other Exercise Pt completes RUE shoulder ROM in pain free range . She lays supine and uses 2# dowelwith R hand ileana wrapped to dowel to promote prolonged grasp. She uses L UE as guide and uses R UE as primary muscular power. Pt requires cues throughout for proper form especially keeping R elbow straightened during shoulder flexion with gravity assist 90-180 , shoulder protraction/retraction in bench press form and elbow flexion/extension x 10 reps x 3 sets with minimal rest breaks between planes of motion. Pt then uses only R UE for active tricep extension with support at pt shoulder at 90 degrees with controlled movement in descent from extension to flexion. Tasks completd to promote R UE ROM and functional use during ADL tasks. Neuromuscular Reducation Neuromuscular Narrative Pt participates in R UE functional grasp and release training by picking upJenga blocks and placing into bucket at 45 degree shoulder flexion to improve prolonged grasp and voluntary release as well as [facility] for improved independence in self care skills. She requires increased time, frequent rest breaks and is very motivated for successful task completion. She places 20 blocks into bucket within 9 minutes Treatment, Outcomes, and Plan OT Narrative: Pt demos good progress with R UE neuro re-education and functional transfers. POC to continue addressing R UE function, cognitive skills and balance OT Treatment Outcomes: Safety device reapplied;Patient tolerated treatment well;Patient is progressing toward STG(s) OT Summary Plan of Care Continue with current plan of care Individual (OT) Time In 0945 Time Out 1030 Breaks/Pauses (Min) 0 mins Total Time with Patient (Min) 45 min Missed Minutes Missed Minutes 0 SHANAE CHAMBERS, TE[place]ORO 09/17/2017 10:30 AM * Plan of Care - Berta Youngblood RN - 09/17/2017 10:11 AM CDT Bowel Incontinence ??? Perineal Skin Integrity is Maintained or Improved Progressing Discharge Planning ??? Discharge to home or other facility with appropriate resources Progressing ??? 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 Free from fall injury Progressing Infection ??? Absence of infection and prevention of transmission during hospitalization Progressing Knowledge Deficit ??? Patient and/or family demonstrate readiness to learn Progressing ??? Patient and/or family verbalizes understanding of education, and/or performs desired skill Progressing Knowledge Deficit ??? Patient/family/caregiver demonstrates understanding of disease process, treatment plan, medications, and discharge instructions Progressing Potential for Compromised Skin Integrity ??? Skin integrity is maintained or improved Progressing ??? Nutritional status is improving Progressing Urinary Incontinence ??? Perineal skin integrity is maintained or improved Progressing * [facility] Treatment Note - [facility] - 09/17/2017 9:41 AM CDT 09/17/17 0900 Patient Subjective Report Patient Subjective Report Pt seen alert and in chair; cooperative throughout session. Pain Assessment Pain Context Therapy Assessment Prior to Treatment Pain Assessment None/denies pain Daily Treatment Cognitive Communication Basic attention;Short-term memory;Planning and sequencing;Compensatory techniques for cognition Treatment Outcome and Plan of Care ST Narrative: Administered the Cognitive Linguistic Quick Test (CLQT), resulting in score of 2.0/4.0, indicating moderate impairments (severe for memory and executive functions; moderate language; mild attention and visuospatial). For detailed results see CLQT flowsheet below. Results discussed with pt, who verbalized understanding. Recommend to continue current plan of care. *left in room with call light and phone within reach ST Session Outcomes Tolerated treatment well;Progressing toward STGs;Patient/family education progressing;Moderate cues during session ST Summary Plan of Care Continue with current plan of care Special Tests and Outcome Measures Special Tests and Outcome Measures CLQT Individual (ST) Time In 0900 Time Out 0945 Total Time with Patient (Min) 45 min Missed Minutes Missed Minutes 0 09/17/17 0900 Cognitive Linguistic Quick Test (CLQT) CLQT Administration Administered in entirety CLQT Tasks Personal Facts 8 Symbol Cancellation 11 Confrontation Naming 10 Clock Drawing 10 (use of non dominant hand) Story Retelling/Auditory Comprehension 3 Symbol Trails 4 Generative Naming 3 Design Memory 3 Mazes 4 Design Generation 1 CLQT Cognitive Domain Severity Ratings Attention Mild Memory Severe Executive Function Severe Language Moderate Visuospatial Skills Mild Composite Severity Rating Moderate (2.0) Clock Drawing Severity Rating Mild KAEL OSMAN ST * Plan of Care - Migdalia Solano RN - 09/16/2017 10:47 PM CDT Problem: Infection Goal: Absence of infection and prevention of transmission during hospitalization Outcome: Progressing Problem: Fall Safety Goal: Free from fall injury Outcome: Progressing Problem: Knowledge Deficit Goal: Patient and/or family demonstrate readiness to learn Outcome: Progressing Goal: Patient and/or family verbalizes understanding of education, and/or performs desired skill Outcome: Progressing Problem: Discharge Planning Goal: Discharge to home or other facility with appropriate resources Outcome: Progressing Problem: Urinary Incontinence Goal: Perineal skin integrity is maintained or improved Outcome: Progressing * Individualized Overall Plan of Care - Yue Reed MD - 09/16/2017 4:22 PM CDT INDIVIDUALIZED OVERALL PLAN OF CARE I have reviewed the admitting History and Physical examination on Maria Long and monitored the patient's status and progress since the admission. Based on the patient's multi-disciplinary evaluations, deficits, and functional needs, my plan of care is inclusive of the following therapies and associated goals: Physical Therapy The following physical therapy plan of care is recommended for Ms. Long Plan of Care and Recommendations Evaluation Summary:: Ms. Long is a 57 year old female admitted to inpatient rehabilitation hospital with a medical diagnosis of stroke R body involvement, L brain, HTN, type II DM. She lives withher and daughter in a one story home with 1 step to enter. She uses a cane at home but was independent in mobility. Problem List:: Decreased strength, Decreased range of motion, Decreased endurance, Impaired balance, Impaired transfer ability, Impaired ambulation ability, Impaired elevation ability, Impaired wheelchair management, Impaired bed mobility, Decreased mobility, Decreased coordination, Impaired Neuromm Control, Impaired Neuromm Strength Additional Pertinent Information: precautions include falls PT to Provide the Following Services:: Aerobic/Endurance conditioning, Adaptive equipment/DME prescription and application, Balance/proprioceptive training, Body mechanics/ergonomics, Education - patient/family, Electrical stimulation - Neuromuscular (NMES), Fall prevention, Elevation training, Gait training, Home Exercise Program (HEP) prescription, Neuromuscular re-education, Therapeutic exercise, Therapeutic activities, Wheelchair safety and mobility training, Therapeutic modalities - cold therapy Frequency:: 45-90 minutes 5 out of 7 days Therapist that Will Oversee Plan of Care:: Bertha Dawn Ms. Long will achieve the following: Transfer Goals - Care Home Transfer Goals - Curb Supervisor: prison 1, intermodal customer service 2 Transfer Care Home Goal 1: sit to stand with modified independence Transfer Curb Supervisor Goal 1 Status: Established Transfer Curb Supervisor Goal 2: stand pviot with modified idnependence Transfer Care Home Goal 2 Status: Established Expected Achievement Date: 10/07/17 Bed/Mat Mobility Goals - Care Home Bed/Mat Mobility Goals - Curb Supervisor: Care Home 1 Bed/Mat Mobility Curb Supervisor Goal 1: supine to and from sit with independence Bed/Mat Mobility Care Home Goal 1 Status: Established Expected Achievement Date: 10/07/17 Gait Goals - Curb Supervisor Gait Goals - Care Home: Curb Supervisor Goal 1 Gait Care Home Goal 1: Ambulate 150 feet with least restrictive assistive device and modified independence Gait Care Home Goal 1 Status: Established Expected Achievement Date: 10/07/17 Elevation Goals - Curb Supervisor Elevation Goals - Care Home: Curb Supervisor 1, Curb Supervisor 2 Elevation Curb Supervisor Goal 1: ascend/descend 1 curb step with modified independence Elevation Curb Supervisor Goal Status: Established Elevation Care Home Goal 2: sacend/descend 4 steps with rail and supervision Elevation Care Home Goal 2 Status: Established Expected Achievement Date: 10/07/17 Wheelchair Management and Propulsion Goals - Curb Supervisor Wheelchair Management and Propulsion Goals - Curb Supervisor: Care Home 1 Wheelchair Management and Propulsion Care Home Goal 1: Propel manual wheelchair 150 feet with supervision Wheelchair Management and Propulsion Care Home Goal 1 Status: Established Expected Achievement Date: 09/22/17 Other PT Curb Supervisor Goals Other Goals - Curb Supervisor: Care Home 1 Other Care Home Goal 1: PASS to be completed Other Care Home Goal 1 Status: Established Expected Achievement Date: 10/07/17 Occupational Therapy: The following occupational therapy plan of care is recommended for Ms. Long: Plan of Care and Recommendations Evaluation Summary:: Ms Long presents as 57 y/o female s/p L basal ganglia CVA, with a history of hypertension, diabetes type 2, ringworm. She was independent prior to admission. She currently presents with moderate deficits limiting independence with ADLs and transfers. PRECAUTIONS INCLUDE: FALL/SAFETY, ASPIRATION, RINGWORM. Ms Long demonstrates good potential to improve in rehab. She will receive 45-90 minute of intense occupational therapy in individual or group setting as appropriate 5 days per week to increase independence for safe d/c to least restrictive environment. Plan of care to include ADL and transfer training, UE therex and HEP, neuromuscular re- education, cognitive retraining, visual perceptual training, coordination training, balance training, energy conservation/work simplification techniques, AE/DME recommendations and patient/family training. Problem List:: Activity Tolerance, Cognitive deficits, Community access, Community deficits, Functional skill, Knowledge of resources, Knowledge of risk factors and health promotions, Leisure skill, Mobility, Social support, Decreased functional endurance, Decreased functional status in ADL's, Impaired balance, Decreased transfer status, Decreased upper extremity strength, Decreased upper extremity range of motion, Decreased fine motor coordination, Impaired gradation of grasp, Impaired hand eye coordination, Upper extremity edema, Impaired visual and/or perceptual skills, Impaired cognitive skills, Impaired sensation, Impaired sensory processing/integration, Impaired psychosocial adaption Additional Pertinent Information : Pt lives with and daughter and son in law (and 3 grandkids). Pt is retired, daughter stays home with kids, son in law works. Grandkids usually go toschool but summer so not in school (varying ages 11-6yo). 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: I with BADLs, IADLs, (-) driving, pt enjoys crossword puzzles, being outside, taking care of grand kids OT to Provide the Following Services:: ADL and Transfer Training, Neuromusculature Re-education, UETherex, Manual Therapy Techniques as Appropriate, Edema Management, Cognitive Retraining, Visual/Perceptual Skills Training, Visual/Perceptual Compensatory education, Balance Training, Coordination Training, Sensory Re-education, Sensory Processing/Integration, Functional Endurance Training, EnergyConservation and Activity Modifications, Home Safety and Modification Education, Assistive Technology Education and Training, Wheelchair Safety and Mobility Training, Adaptive Equipment/DME Education, Positioning, Splinting, Modalities to prepare for functional training, Home Evaluation as needed, Community Reintegration as needed prior to discharge, Patient/Family Education and Training, Scapular mobilization, Joint approximation, OT IADLS (homemaking skills, med. mgmt, meal prep,etc.), OT Neur omuscular Electrical Stimulation for UE, OT Constraint Induced Movement Therapy, OT General Conditioning Exercises & Endurance Training, OT Moist Heat, OT Progressive Resistive Exercise, OT Ice & Cold Packs, OT Shoulder Program, Ot Wheelchair & Seating Evaluation, OT Advanaced Wheelchair Skills, OT Upper Extremity FES Ergometry, OT Home Exercise Program Frequency:: 45-90 minutes 5 out of 7 days Therapist that Will Oversee Plan of Care:: SANDY Light/L Ms. Long will achieve the following: Eating Curb Supervisor Goals Eating Goals - Curb Supervisor: Care Home Goal 1 Eating Care Home Goal 1: with modified independence and dentures Eating Care Home Goal 1 Status: Established Expected Achievement Date: 10/14/17 Grooming Curb Supervisor Goals Grooming Goals - Curb Supervisor: Grooming Care Home 1 Grooming Curb Supervisor Goal 1: with modified independence using hemitechnique Grooming Curb Supervisor Goal 1 Status: Established Expected Achievement Date: 10/14/17 Bathing Curb Supervisor Goals Bathing Goals - Care Home: Bathing Curb Supervisor 1 Bathing Curb Supervisor Goal 1: with stand by assistance using grab bars Bathing Care Home Goal 1 Status: Established Expected Achievement Date: 10/14/17 Upper Body Dressing Curb Supervisor Goals Upper Body Dressing Goals - Curb Supervisor: Curb Supervisor Goal 1 UE Dressing Care Home Goal 1: with modified independence using hemitechnique UE Dressing Care Home Goal 1 Status: Established Expected Achievement Date: 10/14/17 Lower Body Dressing Care Home Goals Lower Body Dressing Goals - Curb Supervisor: Care Home Goal 1 LE Dressing Curb Supervisor Goal 1: with modified independence using hemitechnique LE Dressing Care Home Goal 1 Status: Established Expected Achievement Date: 10/14/17 Toileting Curb Supervisor Goals Toileting Goals - Curb Supervisor: Curb Supervisor Goal 1 Toileting Care Home Goal 1: with modified independence using grab bars Toileting Care Home Goal 1 Status: Established Expected Achievement Date: 10/14/17 Transfer Curb Supervisor Goals Transfer Curb Supervisor Goal 1: BED/CHAIR: with modified independence using least restrictive device Transfer Care Home Goal 1 Status: Established Transfer Care Home Goal 2: TOILET: with modified independence using grab bars Transfer Care Home Goal 2 Status: Established Transfer Curb Supervisor Goal 3: TUB/SHOWER: with stand by assistnace using grab bars Transfer Care Home Goal 3 Status: Established Expected Achievement Date: 10/14/17 Speech Therapy: The following speech therapy plan is recommended for Ms. Long: Plan of Care and Recommendations-Complete with each evaluation Recommended diet: NDD 3 (advanced/mechanical soft), All liquids-no restrictions Compensatory swallowing techniques recommended: Small bites, Small sips, Eat slowly-control rate, Alternate solids/liquids-liquid wash, Lingual/finger sweep Level of supervision at meals recommended: Assistance with set-up Therapy Recommendations : Speech therapy services recommended Treatment plan discussed with: Patient Patient/Caregiver Training : Discussed, Participated, Verbalized understanding, Further training needed, Dysphagia education Problem List:: Cognitive Communication Disorder, Dysarthria, Oral Dysphagia CITY COUNCILMAN to Provide the Following Dysphagia Services:: Therapeutic feeding trials, Diet modification as needed, Train in compensatory swallowing strategies CITY COUNCILMAN to Provide the Following Cognitive, Language, Speech Services:: Basic cognitive communication skills training/strategies, Articulatory precision training/strategies, Ongoing patient/caregiver training Frequency:: 45-90 minutes 5 out of 7 days Therapist that Will Oversee Plan of Care: Scott Coles Ms. Long will: Expression Curb Supervisor Goals Expression Goals - Curb Supervisor: Curb Supervisor 1 Expression Care Home Goal 1: participate in basic conversation with supervisory fior for use of speech intelligibility strategies and expression of thoughts/ideas. Expression Curb Supervisor Goal 1 Status: Established Expected Achievement Date: 09/30/17 Additional Cognition Curb Supervisor Goals Additional Cognition Goals - Curb Supervisor: Care Home 1 Additional Cognition Curb Supervisor Goal 1: participate in daily routines with minimal cues for basic memory and reasoning tasks to safely complete ADLs. Additional Cognition Care Home Goal 1 Status: Established Expected Achievement Date: 09/30/17 Swallowing Care Home Goals Swallowing Goals - Curb Supervisor: Curb Supervisor 1 Swallowing Curb Supervisor Goal 1: tolerate the least restrictive diet with less than 10% s/s of aspiration for safe and adequate consumption of daily meals. Swallowing Curb Supervisor Goal 1 Status: Established Expected Achievement Date: 09/30/17 Additionally, the patient will receive 24 hour rehabilitation nursing with the following goals: Care Plan Problems/Goals Infection Disciplines: Interdisciplinary, Nurse, Parcel Contractor/RN Absence of infection and prevention of transmission during hospitalization Progressing By Lorie Grace RN on 09/15/172005 Fall Safety Disciplines: Nurse, Parcel Contractor/RN, Interdisciplinary Free from fall injury Progressing By Lorie Grace RN on 09/15/172005 Knowledge Deficit Disciplines: Interdisciplinary, Nurse, Parcel Contractor/RN Patient and/or family demonstrate readiness to learn Progressing By Lorie Grace RN on 09/15/172005 Patient and/or family verbalizes understanding of education, and/or performs desired skill Progressing By Lorie Grace RN on 09/15/17 2006 Discharge Planning Disciplines: Interdisciplinary, Nurse, Parcel Contractor/faith healer to home or other facility with appropriate resources Progressing By Lorie Grace RN on 09/15/172005 mud analysis operator will develop a plan to decrease their burden and enhance comfort in role Progressing By Lorie Grace RN on 09/15/172005 Potential for Compromised Skin Integrity Disciplines: Nurse, Parcel Contractor/RN, Interdisciplinary Skin integrity is maintained or improved Progressing By Lorie Grace RN on 06/05/18 2006 Nutritional status is improving Progressing By Lorie rGace RN on 09/15/172005 Overall, I expect the patient will stay at our facility until approximately 10/06/2017, with an anticipated discharge destination of Patients own home and a tentative discharge plan of Home with outpatient. The patient's overall plan of care and current status continue to justify the patient's hospital inpatient status. I plan to monitor the patient's health and functional status daily, to assure that there is continuing benefit from our care. The patient's progress towards goals and treatment will also be monitoredon an ongoing basis during team conferences. The patient has a good prognosis for benefiting from this program and returning to home and community. YUE REED MD 09/16/2017 4:22 PM * Plan of Care - Shanell Oh RD - 09/16/2017 4:13 PM CDT Problem: Unintended Weight Loss Related to: hospitalizaiton As Evidenced By: pt stating she lost 29# in the past month since she had been hospitalized Goal: Clinical Nutrition Goal Outcome: Progressing 09/16/17 1612 Nutrition Goals Primary Goal Adequate Meals and Snack/Oral Nutrition Supplement Intake Primary Goal Progress New Primary Indicator/Monitor PO intake 75-100% Intervention: Medical Nutrition Therapy Interventions 09/16/17 1612 Nutrition Interventions Meals and Snacks General/healthful diet Coordination of Nutrition Care Continue to Monitor * PT Initial Evaluation - Bertha Dawn PT - 09/16/2017 4:10 PM CDT Physical Therapy Weekly Progress Note: PT Overall Functional Status: Ms. Long was just evaluated this session she currently: TRANSFERS: sit to stand with minimal assistance to assistive device and no device. GAIT: Ambulates 40 feet with fornt wheeled walker with hand splint and mnimal assistnace and 20 feet iwth single point cane and minimal assistance. ELEVATIONS: ascends/descends 1 4 inch step with minimal assistance. WHEELCHAIR: PRopels manaual wheelchair 150 feet with supervision. She would benefit from continued skilled PT per POC to maximize safety,functional abiltiies, and independence. (09/16/17 1605) Facilitating Factors in Goal Achievement: (just evaluated this session) (09/16/17 1609) Barriers: (just evaluated this session) (09/16/17 1609) Short Term Goals: Transfer Goals - Short Term Transfer Goals - Short Term: Short Term 1, Short Term 2 (09/16/17 160) Transfer Short Term Goal 1: sit to stand with contact guard assistance (09/16/17 1607) Transfer Short Term Goal 1 Status: Established (09/16/17 160) Transfer Short Term Goal 2: stand pivot with contact guard assistance (09/16/17 160) Transfer Short Term Goal 2 Status: Established (09/16/17 160) Expected Achievement Date: 09/22/17 (09/16/17 1607) Bed/Mat Mobility Goals - Short Term Bed/Mat Mobility Goals - Short Term: Short Term 1 (09/16/17 160) Bed/Mat Mobility Short Term Goal 1: supine to and from sit with supervision (09/16/17 160) Bed/Mat Mobility Short Term Goal 1 Status: Established (09/16/17 160) Expected Achievement Date: 09/22/17 (09/16/17 160) Gait Goals - Short Term Gait Goals - Short Term: Short Term Goal 1 (09/16/17 160) Gait Short Term Goal 1: Ambulate 100 feet with front wheeled walker with splint and contact guard assistance. (09/16/17 160) Gait Short Term Goal 1 Status: Established (09/16/17 160) Expected Achievement Date: 09/22/17 (09/16/17 1608) Elevation Goals - Short Term Elevation Goals - Short Term: Short Term 1, Short Term 2 (09/16/17 1608) Elevation Short Term Goal 1: ascend/descend curb step with front wheeeld walker and minimal assistance (09/16/17 1608) Elevation Short Term Goal 1 Status: Established (09/16/17 160) Elevation Short Term Goal 2: ascend/descedn 4 4 inch steps with one rail and contact guard assistance (09/16/17 1608) Elevation Short Term Goal 2 Status: Established (09/16/17 1608) Expected Achievement Date: 09/22/17 (09/16/17 1608) Wheelchair Management and Propulsion Goals - Short Term Wheelchair Management and Propulsion Goals - Short Term: Short Term 1 (09/16/17 1609) Wheelchair Management and Propulsion Short Term Goal 1: Propel manaul wheelchair 150 feet modified independent (09/16/17 1609) Wheelchair Management and Propulsion Short Term Goal 1 Status: Established (09/16/17 1609) Expected Achievement Date: 09/22/17 (09/16/17 1609) Curb Supervisor Goals: Transfer Goals - Care Home Transfer Goals - Care Home: intermodal customer service 1, intermodal customer service 2 (09/16/17 1602) Transfer Care Home Goal 1: sit to stand with modified independence (09/16/17 1602) Transfer Care Home Goal 1 Status: Established (09/16/17 1602) Transfer Care Home Goal 2: stand pviot with modified idnependence (09/16/17 1602) Transfer Care Home Goal 2 Status: Established (09/16/17 1602) Expected Achievement Date: 10/07/17 (09/16/17 1602) Bed/Mat Mobility Goals - Care Home Bed/Mat Mobility Goals - Care Home: Curb Supervisor 1 (09/16/17 1603) Bed/Mat Mobility Curb Supervisor Goal 1: supine to and from sit with independence (09/16/17 1603) Bed/Mat Mobility Curb Supervisor Goal 1 Status: Established (09/16/17 1603) Expected Achievement Date: 10/07/17 (09/16/17 1603) Gait Goals - Care Home Gait Goals - Care Home: Care Home Goal 1 (09/16/17 1603) Gait Care Home Goal 1: Ambulate 150 feet with least restrictive assistive device and modified independence (09/16/17 1603) Gait Curb Supervisor Goal 1 Status: Established (09/16/17 1603) Expected Achievement Date: 10/07/17 (09/16/17 1603) Elevation Goals - Care Home Elevation Goals - Care Home: Curb Supervisor 1, Curb Supervisor 2 (09/16/17 1603) Elevation Care Home Goal 1: ascend/descend 1 curb step with modified independence (09/16/17 1603) Elevation Care Home Goal Status: Established (09/16/17 1603) Elevation Care Home Goal 2: sacend/descend 4 steps with rail and supervision (09/16/17 1603) Elevation Curb Supervisor Goal 2 Status: Established (09/16/17 1603) Expected Achievement Date: 10/07/17 (09/16/17 1603) Wheelchair Management and Propulsion Goals - Care Home Wheelchair Management and Propulsion Goals - Care Home: Curb Supervisor 1 (09/16/17 1604) Wheelchair Management and Propulsion Care Home Goal 1: Propel manual wheelchair 150 feet with supervision (09/16/17 1604) Wheelchair Management and Propulsion Curb Supervisor Goal 1 Status: Established (09/16/17 1604) Expected Achievement Date: 09/22/17 (09/16/17 1604) Other PT Care Home Goals Other Goals - Curb Supervisor: Care Home 1 (09/16/17 1605) Other Care Home Goal 1: PASS to be completed (09/16/17 1605) Other Curb Supervisor Goal 1 Status: Established (09/16/17 1605) Expected Achievement Date: 10/07/17 (09/16/17 1605) Bertha Dawn, PT 09/16/2017, 4:10 PM * PT Initial Evaluation - Bertha Dawn, PT - 09/16/2017 4:01 PM CDT 09/16/17 1031 Pain Assessment Pain Context Therapy Assessment Prior to Treatment Pain Assessment NRS 0-10 Pain Score 0 - No pain Vitals BP 112/65 Pulse 70 SpO2 96 % Sensation Light Touch No apparent deficits Coordination Coordination Impaired Coordination and Movement Description Heels to samaniego eyes open right Transfers Transfer Yes Transfer 1 Transfer to 1 Stand Transfer From 1 Sit Technique 1 Sit to stand Transfer Level of Assistance 1 Minimal Assistance Trials/Comments 1 to no AD and fww Transfers 2 Transfer to 2 Sit Transfer From 2 Stand Technique 2 Stand to sit Transfer Level of Assistance 2 Minimal Assistance Trials/Comments 2 no AD Mode of Locomotion FIM - Primary Mode of Locomotion Walk Ambulation Surface Even surface;Indoor Assistive Device Cane (cane is plof) FIM - Walk 1: Total Assistance - The patient performs less than 25% of effort, or requires the assistance of two people, or walks to less than 50ft. (15m). FIM - Distance Walked 0-49 Gait Analysis ambualtes 20 feet with spc and minimal assistance for balance initially. gait deviations include dec joseline dec step length inc trunk flexion, guarded gait pattern; then ambulates 50 feet with front wheeled walker with R hand splint and minimal assitance to assist with walker management Wheelchair Management FIM - Wheelchair 5: Supervision - The patient requires standby supervision, cueing, or coaxing to go a minimum of 150ft. (50m) in a wheelchair. Wheelchair Level of Assistance Close Supervision FIM - Distance Traveled in Wheelchair 150 or greater Distance Traveled in Wheelchair (feet) 150 ft Wheelchair Type Manual Wheelchair Parts Management (cues for brakes) Wheelchair Propulsion Surface Even surface;Indoor Propulsion Method Bilateral lower extremity Wheelchair Analysis inc time to complete Stairs Rails Left Assistive Device No device FIM - Stairs 1: Total Assistance - The patient performs less than 25% of effort, or requires the assistance of two people, or goes up and down fewer than 4 stairs. FIM - Number of Steps Less than 4 Stairs Height of Step 4-inch Stairs Analysis asc/desc 1 4 inch step with left rail and minimal assistance. Activity tolerance Activity Type Standing Activity Endurance Fair Compromised ability to maintain sitting or standing? Yes Activity Comment requires rest break RLE Assessment-ROM and MMT RLE Assessment X Strength RLE R Hip Flexion 3+/5 R Hip ABduction 3/5 R Knee Flexion 1/5 R Knee Extension 2/5 (lacking 10 degrees of arom) R Ankle Dorsiflexion 3+/5 R Ankle Plantar Flexion 3+/5 LLE Assessment-ROM and MMT LLE Assessment (grossly 4+/5 to 5/5) DME Recommendations OT & PT DME Recommendations (tbd) Plan of Care and Recommendations Evaluation Summary: Ms. Long is a 57 year old female admitted to inpatient rehabilitation hospital with a medical diagnosis of stroke R body involvement, L brain, HTN, type II DM. She lives with her and daughter in a one story home with 1 step to enter. She uses a cane at home but was independent in mobility. Problem List: Decreased strength;Decreased range of motion;Decreased endurance;Impaired balance;Impaired transfer ability;Impaired ambulation ability;Impaired elevation ability;Impaired wheelchair management;Impaired bed mobility;Decreased mobility;Decreased coordination;Impaired Neuromm Control;Imp aired Neuromm Strength Additional Pertinent Information precautions include falls PT to Provide the Following Services: Aerobic/Endurance conditioning;Adaptive equipment/DME prescription and application;Balance/proprioceptive training;Body mechanics/ergonomics;Education - patient/family;Electrical stimulation - Neuromuscular (NMES);Fall prevention;Elevation training;Gait training;Home Exercise Program (HEP) prescription;Neuromuscular re-education;Therapeutic exercise;Therapeutic activities;Wheelchair safety and mobility training;Therapeutic modalities - cold therapy Frequency: 45-90 minutes 5 out of 7 days Therapist that Will Oversee Plan of Care: Bertha Dawn Evaluation (PT) Time In 1031 Time Out 1117 Time calculation (min) 46 min Missed Minutes Missed Minutes 1 Bertha Dawn, PT 09/16/2017, 4:01 PM * CITY COUNCILMAN Communication Evaluation - [facility] - 09/16/2017 2:28 PM CDT Speech Therapy Communication Evaluation: CITY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 Long is a 57 year old female with PMH of diabetes. She was recently admitted for left CVA. Prior to hospital admission, Mrs. Long lived with her spouse anddaughter. She reports receiving assistance from family for cooking, cleaning, laundry, and transportation; and reports independence for medicine and financial analyst. Mrs. Long's current functional status is as follows: DIET: NDD3 and Thin liquids. SWALLOWING STRATEGIES: Upright 90 degrees,small bites/sips, slow rate, monitor right cheek for pocketing and alternation of solids/liquids. COMPREHENSION: Supervisory assist for basic comprehension. WFL for basic conversation and increased amount of assist for complex conversation. EXPRESSION: Mildly impaired for basic verbal expression. She requires some of the time for expression. Mild dysarthria with occasional slurring and imprecise articulation. SOCIAL: Supervisory assist for basic social interactions. Cues required during stressful or unfamiliar circumstances. REASONING: Moderately impaired for basic reasoning tasks. Cues required half of the time for reasoning. Decreased reasoning, thought organization, insight, and attention. Recommend further assessment. MEMORY: Moderately impaired for basic memory tasks. She requires cues half of the time for basic memory. Noted difficulty with delayed recall paragraph recall, and carryover of novel information. Recommend further assessment. These impairments limit Mrs. Long's ability to independently and safely participate in daily conversations, routines, and to return to prior level of function. Mrs. Long demonstrates good potential for improvement and would benefit from intensive speech therapy 45-90 minutes daily, 5 days week, focusing on dysphagia treatment, and,cognitive-communication retraining for increased safety and independence. Plan of care to include: compensatory strategy training, cognitive retraining, and patient/family education. (09/16/17 7197) Facilitating Factors in Goal Achievement: Patient understanding and knowledge (09/16/17 1253) Barriers: Other (comment) (cognition) (09/16/17 1253) Short Term Goals: Expression Short Term Goals Expression Goals - Short Term: Short Term 1 (09/16/17 1248) Expression Short Term Goal 1: utilize speech intelligibility strategies at the conversational levelat 100% intelligibility with supervisory assist. (09/16/17 1248) Expression Short Term Goal 1 Status: Established (09/16/17 1248) Expected Achievement Date: 09/23/17 (09/16/17 1248) Problem Solving Short Term Goals Problem Solving Goals - Short Term: Short Term 1 (09/16/17 1253) Problem Solving Short Term Goal 1: complete functional problem solving/reasoning tasks at 80% accuracy with min cues. (09/16/17 1253) Problem Solving Short Term Goal 1 Status: Established (09/16/17 1253) Expected Achievement Date: 09/23/17 (09/16/17 1253) Memory Short Term Goals Memory Goals - Short Term: Short Term 1 (09/16/17 1250) Memory Short Term Goal 1: complete short term memory tasks at 80% with minimal cues. (09/16/17 1250) Memory Short Term Goal 1 Status: Established (09/16/17 1250) Expected Achievement Date: 09/23/17 (09/16/17 1250) Additional Cognition Short Term Goals Additional Cognition Goals - Short Term: Short Term 1, Short Term 2 (09/16/17 1252) Additional Cognition Short Term Goal 1: complete thought organization tasks at 80% with minimal cues. (09/16/17 1252) Additional Cognition Short Term Goal 1 Status: Established (09/16/17 1252) Additional Cognition Short Term Goal 2: participate in CLQT, as appropriate. (09/16/17 1252) Additional Cognition Short Term Goal 2 Status: Established (09/16/17 1252) Expected Achievement Date: 09/23/17 (09/16/17 1252) Swallowing Short Term Goals Swallowing Goals - Short Term: Short Term 1 (09/16/17 1247) Swallowing Short Term Goal 1: tolerate regular solids and thin liquids with less than 10% s/s of aspiration and independent use of swallowing strategies. (09/16/17 1247) Swallowing Short Term Goal 1 Status: Established (09/16/17 1247) Expected Achievement Date: 09/23/17 (09/16/17 1247) Care Home Goals: Expression Care Home Goals Expression Goals - Care Home: Care Home 1 (09/16/17 124) Expression Care Home Goal 1: participate in basic conversation with supervisory fior for use of speech intelligibility strategies and expression of thoughts/ideas. (09/16/17 124) Expression Care Home Goal 1 Status: Established (09/16/17 1241) Expected Achievement Date: 09/30/17 (09/16/17 1241) Additional Cognition Curb Supervisor Goals Additional Cognition Goals - Curb Supervisor: Care Home 1 (09/16/17 1244) Additional Cognition Care Home Goal 1: participate in daily routines with minimal cues for basic memory and reasoning tasks to safely complete ADLs. (09/16/17 1244) Additional Cognition Curb Supervisor Goal 1 Status: Established (09/16/17 1244) Expected Achievement Date: 09/30/17 (09/16/17 1244) Swallowing Care Home Goals Swallowing Goals - Care Home: Care Home 1 (09/16/17 1245) Swallowing Curb Supervisor Goal 1: tolerate the least restrictive diet with less than 10% s/s of aspiration for safe and adequate consumption of daily meals. (09/16/17 1245) Swallowing Curb Supervisor Goal 1 Status: Established (09/16/17 1245) Expected Achievement Date: 09/30/17 (09/16/17 1245) KAEL OSM[facility] * CITY COUNCILMAN Communication Evaluation - [facility] - 09/16/2017 2:22 PM CDT 09/16/17 0945 Patient Subjective Report Patient Subjective Report Pt seen alert and in chair; agreeable to evaluation. Pain Assessment Pain Context Therapy Assessment Prior to Treatment Pain Assessment NRS 0-10 Pain Score 3 Pain Location (right shoulder) General Patient Assessment-Complete with each evaluation Pertinent history CVA;Diabetes Auditory and visual status/observations Hearing WFL Diet at current time NDD 3 (advanced/mechanical soft);All liquids-no restrictions Oral peripheral speech mechanism Right facial weakness;Decreased lingual strength;Decreased lingualROM;Decreased labial ROM;Decreased labial strength;Decreased lingual coordination;Dysarthria Dentition and oral health status Adequate oral health;Upper denture;Patient has dentures but not inplace or reports missing Respiratory status - tracheostomy tube Room air Communication Assessment Comprehension Deficits Complex directions Expression Deficits Verbal fluency;Thoughts/Ideas Cognitive Deficits Short term memory;Working memory;Information processing- simple;Slow processing;Verbal /thought organization;Planning and sequencing;Further assessment indicated Dysarthria Symptoms Intelligibility- conversational level;Articulation;Further assessment indicated Narrative summary of evaluation Supervisory assist for basic comprehension. WFL for basic conversation and increased amount of assist for complex conversation. Mildly impaired for basic verbal expression. Mild dysarthria with cues some of the time for use of intelligibility strategies. Speech characterized with mild articulation errors and slurring. Language Screening Test (LAST), completed with score of 15/15. Moderately impaired for basic memory and reasoning tasks. She requires cues half of the time. Oriented x4. Divergent naming of 6 items in one minute; convergent naming at 20% accuracy,category differentiation at 40% accuracy, verbal reasoning at 90% with min cues, and math reasoningat 33% accuracy. Delayed recall of 1/3 items on BIMS with independence (2/3 with semantic cue), paragraph recall at 70% accuracy, and recall of events from the morning with independence. Recommend further assessment. Clinical Bedside Swallow Eval (CBSE) Patient complaints as related to swallowing Denies swallowing difficulty Cognitive status WFL;Compliant;Able to follow directions/strategies Consistencies tested Regular solid;Water;NDD I (puree) Oral phase impairments Slow anterior-posterior transport;Dentition status impacts mastication;Pocketing on right Clinical impressions Oral dysphagia;Mild severity;No overt signs/symptoms of aspiration across tested consistencies Narrative summary of evaluation Naik Assessment of Swallowing Ability (MASA), administered with score of 184/200, indicating nil abnormality or risk for dysphagia/aspiration. Oral [facility] exam remarkable for right facial weakness, edentulous state, lingual weakness/incoordination, decreased unilateralpalate movement, and strong volitional cough. Presented with trials of thin liquids, pureed solids,and fior cracker. Oral phase is prolonged with mild residue post swallow; suspect increased pocketing with solids from meal trays. Pharyngeal phase is timely with good laryngeal elevation to palpation. No overt s/s of aspiration exhibited. Recommend to continue current diet of NDD3 solids and thin liquids. Educated on swallowing strategies and handout placed in room. Special Tests and Outcome Measures Special Tests and Outcome Measures FIM;MASA (BIM; LAST) FIM-Functional Communication FIM - Comprehension 5: Standby Prompting - The patient understands directions and conversations about basic daily needs more than 90% of the time. The patient requires prompting less than 10 % of thetime. FIM - Primary Mode of Comprehension Auditory FIM - Expression 4: Minimal Prompting - The patient expresses basic daily needs and ideas 75 to 90%of the time. FIM - Primary Mode of Expression Verbal FIM - Social Interaction 5: Supervision- The patient requires supervision (e.g., monitoring, verbalcontrol, cueing, or coaxing) only under stressful or unfamiliar conditions, but less than 10% of the time. The patient may require encouragement to initiate participation. FIM - Problem Solving 3: Moderate Direction - The patient solves routine problems 50 to 74% of the time. FIM - Memory 3: Moderate Prompting - The patient recognizes and remembers 50 to 74% of the time. Patient's and/or Caregiver's Goals Goals (in their own words) To get back home Goals Generated By: Patient generated response independently Plan of Care and Recommendations-Complete with each evaluation Recommended diet NDD 3 (advanced/mechanical soft);All liquids-no restrictions Compensatory swallowing techniques recommended Small bites;Small sips;Eat slowly-control rate;Alternate solids/liquids-liquid wash;Lingual/finger sweep Level of supervision at meals recommended Assistance with set-up Therapy Recommendations Speech therapy services recommended Treatment plan discussed with Patient Patient/Caregiver Training Discussed;Participated;Verbalized understanding;Further training needed;Dysphagia education Problem List: Cognitive Communication Disorder;Dysarthria;Oral Dysphagia CITY COUNCILMAN to Provide the Following Dysphagia Services: Therapeutic feeding trials;Diet modification as needed;Train in compensatory swallowing strategies CITY COUNCILMAN to Provide the Following Cognitive, Language, Speech Services: Basic cognitive communication skills training/strategies;Articulatory precision training/strategies;Ongoing patient/caregiver training Frequency: 45-90 minutes 5 out of 7 days Therapist that Will Oversee Plan of Care Scott Gutierrez Evaluation (ST) Time In 0945 Time Out 1015 Time calculation (min) 30 min CBSE Evaluation (ST) Time In 1015 Time Out 1030 Time calculation (min) 15 min Missed Minutes Missed Minutes [address] * Post Admission Assessment - Yue Reed MD - 09/16/2017 1:16 PM CDT Post Admission Assessment: I have had the opportunity to examine the patient within 24 hours of admission and have reviewed the pre-admission assessment and find it consistent with my examination andevaluation of the patient. I confirm that this patient requires admission and treatment in this inpatient rehabilitation hospital, needs intense interdisciplinary rehabilitation care under my direction and is expected to achieve meaningful goals within a reasonable period of time that are consistent with the planned discharge disposition. We will provide comprehensive inpatient rehabilitation, which may include PT, OT and CITY COUNCILMAN and supportive services to improve functional outcome of impaired mobility, ADLs, transfers, and self-care. YUE REED MD * OT Initial Evaluation - Shanae Chambers OT - 09/16/2017 12:39 PM CDT Occupational Therapy Eval Goals: OT Overall Functional Status: Ms Long presents as 57 y/o female s/p L basal ganglia CVA, with ahistory of hypertension, diabetes type 2, ringworm. She was independent prior to admission. She currently presents with moderate deficits limiting independence with ADLs and transfers. PRECAUTIONS INCLUDE: FALL/SAFETY, ASPIRATION, RINGWORM. Ms Long demonstrates good potential to improve in rehab. She will receive 45-90 minute of intense occupational therapy in individual or group setting as appropriate 5 days per week to increase independence for safe d/c to least restrictive environment. Plan of care to include ADL and transfer training, UE therex and HEP, neuromuscular re- education, cognitive retraining, visual perceptual training, coordination training, balance training, energy conservation/work simplification techniques, AE/DME recommendations and patient/family training. (09/16/171041) Facilitating Factors in Goal Achievement: Patient understanding and knowledge, Patient compliance, Patient motivation (09/16/171045) Barriers: Balance deficits, Strength limitations, ROM limitations, Diminished endurance, Motor control deficits, Cognitive deficits, Decreased patient understanding, Communication deficits, Decreasedsafety awareness (09/16/171045) Short Term Goals: Eating Short Term Goals Eating Goals - Short Term: Short Term Goal 1 (09/16/171042) Eating Short Term Goal 1: with modified independence (09/16/171042) Eating Short Term Goal 1 Status: Established (09/16/171042) Expected Achievement Date: 09/23/17 (09/16/171042) Grooming Short Term Goals Grooming Goals - Short Term: Short Term Goal 1 (09/16/171042) Grooming Short Term Goal 1: with setup seated (09/16/171042) Grooming Short Term Goal 1 Status: Established (09/16/171042) Expected Achievement Date: 09/23/17 (09/16/171042) Bathing Short Term Goals Bathing Goals - Short Term: Bathing Short Term 1 (09/16/171043) Bathing Short Term Goal 1: with contact guard assistance using grab bars and shower chair () Bathing Short Term Goal 1 Status: Established (09/16/171043) Expected Achievement Date: 09/23/17 (09/16/171043) Upper Body Dressing Short Term Goals Upper Body Dressing Goals - Short Term: Short Term Goal 1 (09/16/171043) UE Dressing Short Term Goal 1: with setup and cues (09/16/171043) UE Dressing Short Term Goal 1 Status: Established (09/16/171043) Expected Achievement Date: 09/23/17 (09/16/171043) Lower Body Dressing Short Term Goals Lower Body Dressing Goals - Short Term: Short Term Goal 1 (09/16/171043) LE Dressing Short Term Goal 1: with minimal assistance using hemitechnique (09/16/17 1044) LE Dressing Short Term Goal 1 Status: Established (09/16/17 1044) Expected Achievement Date: 09/23/17 (09/16/17 1044) Toileting Short Term Goals Toileting Goals - Short Term: Short Term Goal 1 (09/16/17 1044) Toileting Short Term Goal 1: with maximal assistance using grab bars (09/16/17 1044) Toileting Short Term Goal 1 Status: Established (09/16/17 1044) Expected Achievement Date: 09/23/17 (09/16/17 1044) Transfer Short Term Goals Transfer Goals-Short Term: Short Term 1, Short Term 2, Short Term 3 (09/16/17 1045) Transfer Short Term Goal 1: BED/CHAIR: with minimal assistance using least restrictive device (09/16/17 1045) Transfer Short Term Goal1 Status: Established (09/16/17 1045) Transfer Short Term Goal 2: TOILET: with minimal assistance using grab bars (09/16/17 1045) Transfer Short Term Goal 2 Status: Established (09/16/17 1045) Transfer Short Term Goal 3: TUB/SHOWER: with minimal assistance using grab bars (09/16/17 1045) Transfer Short Term Goal 3 Status: Established (09/16/17 1045) Expected Achievement Date: 09/23/17 (09/16/17 1045) Curb Supervisor Goals: Eating Care Home Goals Eating Goals - Care Home: Curb Supervisor Goal 1 (09/16/17 1034) Eating Curb Supervisor Goal 1: with modified independence and dentures (09/16/17 1034) Eating Care Home Goal 1 Status: Established (09/16/17 1034) Expected Achievement Date: 10/14/17 (09/16/17 1034) Grooming Curb Supervisor Goals Grooming Goals - Care Home: Grooming Curb Supervisor 1 (09/16/17 1034) Grooming Curb Supervisor Goal 1: with modified independence using hemitechnique (09/16/17 1034) Grooming Care Home Goal 1 Status: Established (09/16/17 1034) Expected Achievement Date: 10/14/17 (09/16/17 1034) Bathing Curb Supervisor Goals Bathing Goals - Care Home: Bathing Curb Supervisor 1 (09/16/17 1035) Bathing Care Home Goal 1: with stand by assistance using grab bars (09/16/17 1035) Bathing Curb Supervisor Goal 1 Status: Established (09/16/17 1035) Expected Achievement Date: 10/14/17 (09/16/17 1035) Upper Body Dressing Care Home Goals Upper Body Dressing Goals - Curb Supervisor: Care Home Goal 1 (09/16/17 1035) UE Dressing Curb Supervisor Goal 1: with modified independence using hemitechnique (09/16/17 1035) UE Dressing Curb Supervisor Goal 1 Status: Established (09/16/17 1035) Expected Achievement Date: 10/14/17 (09/16/17 1035) Lower Body Dressing Curb Supervisor Goals Lower Body Dressing Goals - Curb Supervisor: Care Home Goal 1 (09/16/17 1036) LE Dressing Care Home Goal 1: with modified independence using hemitechnique (09/16/17 1036) LE Dressing Care Home Goal 1 Status: Established (09/16/17 1036) Expected Achievement Date: 10/14/17 (09/16/17 1036) Toileting Curb Supervisor Goals Toileting Goals - Curb Supervisor: Care Home Goal 1 (09/16/17 1036) Toileting Curb Supervisor Goal 1: with modified independence using grab bars (09/16/17 1036) Toileting Care Home Goal 1 Status: Established (09/16/17 1036) Expected Achievement Date: 10/14/17 (09/16/17 1036) Transfer Curb Supervisor Goals Transfer Curb Supervisor Goal 1: BED/CHAIR: with modified independence using least restrictive device (09/16/17 1037) Transfer Care Home Goal 1 Status: Established (09/16/17 1037) Transfer Curb Supervisor Goal 2: TOILET: with modified independence using grab bars (09/16/17 1037) Transfer Curb Supervisor Goal 2 Status: Established (09/16/17 1037) Transfer Curb Supervisor Goal 3: TUB/SHOWER: with stand by assistnace using grab bars (09/16/17 1037) Transfer Curb Supervisor Goal 3 Status: Established (09/16/17 1037) Expected Achievement Date: 10/14/17 (09/16/17 1037) * OT Initial Evaluation - Shanae Chambers, TEODORO - 09/16/2017 12:39 PM CDT 09/16/17 0730 Pain Assessment Pain Context Therapy Assessment Prior to Treatment Pain Assessment NRS 0-10 Pain Score 0 - No pain Vitals BP (!) 159/83 BP Location Right arm BP Method Automatic Patient Position Sitting Pulse 112 Resp 18 Oxygen Context Sitting SpO2 93 % O2 Device None (Room air) Occupation/Work History Vocation retired Current Work Status Retired Prior Functional Status ADL Required Assistance Independent DME Currently Owned (none) Previously Used Home Health Aide No Drove Vehicle Prior to Admission No Required assistance for mobility? No Significant Habits and Routines Roles Mother;Spouse Interests Games (being outside) Previous Living Status Lives with others;Private home Patient's and/or Caregiver's Goals Communication Goals (in their own words) I want to be able to walk and my arm Goals Generated By: Patient generated response independently FIM-Functional Communication FIM - Comprehension 5: Standby Prompting - The patient understands directions and conversations about basic daily needs more than 90% of the time. The patient requires prompting less than 10 % of thetime. FIM - Primary Mode of Comprehension Auditory FIM - Expression 4: Minimal Prompting - The patient expresses basic daily needs and ideas 75 to 90%of the time. FIM - Primary Mode of Expression Verbal FIM - Social Interaction 5: Supervision- The patient requires supervision (e.g., monitoring, verbalcontrol, cueing, or coaxing) only under stressful or unfamiliar conditions, but less than 10% of the time. The patient may require encouragement to initiate participation. FIM - Problem Solving 3: Moderate Direction - The patient solves routine problems 50 to 74% of the time. FIM - Memory 3: Moderate Prompting - The patient recognizes and remembers 50 to 74% of the time. Eating FIM - Eating 5: Supervision or Setup - Requires supervision (e.g., standing by, cueing, or coaxing)or setup (application of orthoses or assistive/adaptive devices), or another person is required to open containers, butter bread, cut meat, or pour liquids. Feeding Comments pt feeds self with cues for swallow strategy and alternating solids/liquids after setup completing 3/3 aspects of tassk Grooming FIM - Grooming 4: Minimal Contact Assistance - The patient performs 75% or more of grooming task. Grooming Where Assessed Sitting at sink;Wheelchair Grooming Comments assist with handwashing and setup for all other aspects of task including hair combing, face washing and oral care Bathing FIM - Bathing 4: Minimal Contact Assistance - The patient performs 75% or more of bathing task. Bathing Where Assessed Seated in shower Bathing Comments pt unsafe to sales representative business courses shower this date and bathes 8/10 body parts with assist for buttocks and washing L UE due to R UE weakness Toileting FIM - Toileting 1: Total Assistance - The patient performs less than 25% of toileting task. Toileting Where Assessed Toilet Toilet Comments pt iniates hygiene but requries assist for thoroughness and assist to don/doff pants requiring total assist completing 0/3 aspects of task Upper Body Dressing FIM - Dressing Upper Body 4: Minimal Contact Assistance - The patient performs 75% or more of dressing task. Upper Body Dressing Where Assessed Sitting in chair Upper Body Dressing Comments pt copmletes 12/15 aspects of UB dressing with good routine problem solving Lower Body Dressing FIM - Dressing Lower Body 3: Moderate Assistance - The patient performs 50% to 74% of dressing task. Lower Body Dressing Where Assessed Sitting in chair;Standing Lower Body Dressing Comments pt completes 14/20 aspects of task with good ination and assist in don/doff pants/underpants over hips as well as threading LEs into pants/underpants Toilet Transfers FIM - Toilet Transfer 3: Moderate Assistance - The patient requires more help than touching or performs 50% to 74% of transferring tasks. Toilet Transfer To Standard toilet Toilet Transfer From Wheelchair Toilet Transfer Technique Stand pivot Toilet Transfers Comments mod assist and blocking of R LE to prevent buckling for safety (no signs of buckling Shower Transfers FIM - Shower Transfer 3: Moderate Assistance - The patient requires more help than touching or performs 50% to 74% of transferring tasks. Shower Transfer to Shower seat with back Shower Transfer From Wheelchair Shower Transfer Technique Stand pivot Shower Transfers Comments mod assist with good effort emerging min assist Bed, Chair, Wheelchair Transfers FIM - Bed, Chair, Wheelchair Transfer 3: Moderate Assistance-The patient requires more help than touching or performs 50 to 74% of transferring tasks. Bed/Chair Transfer to Wheelchair Bed/Chair Transfer from Bed Bed/Chair Transfer Technique Sit to stand;Stand to sit;Stand pivot Bed/Chair Transfer Status With moderate assist Assistive Devices Used No Device Bed/Chair Transfer Comments BED MOBILITY: with SBA and increased time for all bed mobility. SIT TO AND FROM STAND with min assist. STAND PIVOT with mod assist Performance Skills Assessment Behavioral/Affective Observations Goal directed Cognitive Skills Oriented to personal circumstance;Oriented to place;Oriented to time;Able to follow 1 step commands;Able to follow 2 step commands;Impaired probem solving;Impaired memory;Decreased safety awareness or impaired judgement;Decreased awareness of deficits;Further evaluation required (dysarthric) Musculoskeletal Status Posture/Trunk Control Upright/symmetrical Static Sitting balance Close Supervision Dynamic Sitting Balance Minimal Assistance Gross Motor Coordination Right Finger to Nose Coordination-Eyes Open Impaired Left Finger to Nose Coordination- Eyes Open Intact Fine Motor/Dexterity 9 Hole Peg Right none 9 Hole Peg Left 27 sec Right Eye Hand Coordination Impaired Left Eye Hand Coordination Intact Hand Function Hand Dominance Right Right Gross Grasp Impaired Right Grasp Release Impaired Left Gross Grasp Functional Left Grasp Release Functional Coordination Impaired Senior Data Scientist Strength Right Senior Data Scientist Strength 4.6lb Left Senior Data Scientist Strength 29.4lb RUE Assessment-ROM and MMT RUE Assessment-ROM and MMT X (AROM of shoulder to 90 degrees, PROM WFL) UE Edema Location Mild;Distal;RUE (MMT at least 2+/5 in all planes) LUE Assessment-ROM and MMT LUE Assessment-ROM and MMT WFL (AROM WFL, MMT: 4/5) UE Edema Location No edema present Quality of UE Movements Left Upper Extremity WNL Tremors No Upper Extremity Sensation: Light Touch Right Upper Extremity Light Touch Intact Left Upper Extremity Light Touch Intact Plan of Care and Recommendations Evaluation Summary: Ms Long presents as 57 y/o female s/p L basal ganglia CVA, with a history of hypertension, diabetes type 2, ringworm. She was independent prior to admission. She currently presents with moderate deficits limiting independence with ADLs and transfers. PRECAUTIONS INCLUDE: FALL/SAFETY, ASPIRATION, RINGWORM. Ms Long demonstrates good potential to improve in rehab. She will receive 45-90 minute of intense occupational therapy in individual or group setting as appropriate5 days per week to increase independence for safe d/c to least restrictive environment. Plan of care to include ADL and transfer training, UE therex and HEP, neuromuscular re- education, cognitive retraining, visual perceptual training, coordination training, balance training, energy conservation/work simplification techniques, AE/DME recommendations and patient/family training. Problem List: Activity Tolerance;Cognitive deficits;Community access;Community deficits;Functional skill;Knowledge of resources;Knowledge of risk factors and health promotions;Leisure skill;Mobility;Social support;Decreased functional endurance;Decreased functional status in ADL's;Impaired balance;Decreased transfer status;Decreased upper extremity strength;Decreased upper extremity range of motion;Decreased fine motor coordination;Impaired gradation of grasp;Impaired hand eye coordination;Upper extremity edema;Impaired visual and/or perceptual skills;Impaired cognitive skills;Impaired sensation;Impaired sensory processing/integration;Impaired psychosocial adaption Additional Pertinent Information Pt lives with and daughter and son in law (and 3 grandkids). Pt is retired, daughter stays home with kids, son in law works. Grandkids usually go to school but summer so not in school (varying ages 11-6yo). Pt has tub shower, regular height toilet. 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: I with BADLs, IADLs, (-) driving, pt enjoys crossword puzzles, being outside, taking care of grand kids OT to Provide the Following Services: ADL and Transfer Training;Neuromusculature Re-education;UE Therex;Manual Therapy Techniques as Appropriate;Edema Management;Cognitive Retraining;Visual/Perceptual Skills Training;Visual/Perceptual Compensatory education;Balance Training;Coordination Training;Sensory Re-education;Sensory Processing/Integration;Functional Endurance Training;Energy Conservation and Activity Modifications;Home Safety and Modification Education;Assistive Technology Education andTraining;Wheelchair Safety and Mobility Training;Adaptive Equipment/DME Education;Positioning;Splinting;Modalities to prepare for functional training;Home Evaluation as needed;Community Reintegrationas needed prior to discharge;Patient/Family Education and Training;Scapular mobilization;Joint approximation;OT IADLS (homemaking skills, med. mgmt, meal prep,etc.);OT Neuromuscular Electrical Stimulation for UE;OT Constraint Induced Movement Therapy;OT General Conditioning Exercises & Endurance Training;OT Moist Heat;OT Progressive Resistive Exercise;OT Ice & Cold Packs;OT Shoulder Program;Ot Wheelchair & Seating Evaluation;OT Advanaced Wheelchair Skills;OT Upper Extremity FES Ergometry;OT Home Exercise Program Frequency: 45-90 minutes 5 out of 7 days Therapist that Will Oversee Plan of Care: Shanae Chambers OTR/L Evaluation (OT) Time In 0730 Time Out 0900 Breaks/Pauses (Min) 0 mins Time calculation (min) 90 min Missed Minutes Missed Minutes 0 SHANAE CHAMBERS OT 09/16/2017 12:39 PM * Plan of Care - Lorie Grace RN - 09/15/2017 8:06 PM CDT Bowel Incontinence ??? Perineal Skin Integrity is Maintained or Improved Progressing Discharge Planning ??? Discharge to home or other facility with appropriate resources Progressing ??? 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 Free from fall injury Progressing Infection ??? Absence of infection and prevention of transmission during hospitalization Progressing Knowledge Deficit ??? Patient and/or family demonstrate readiness to learn Progressing ??? Patient and/or family verbalizes understanding of education, and/or performs desired skill Progressing Knowledge Deficit ??? Patient/family/caregiver demonstrates understanding of disease process, treatment plan, medications, and discharge instructions Progressing Potential for Compromised Skin Integrity ??? Skin integrity is maintained or improved Progressing ??? Nutritional status is improving Progressing Urinary Incontinence ??? Perineal skin integrity is maintained or improved Progressing * Drug Regimen Review - Carlos A Sherwood PharmD - 09/15/2017 7:51 PM CDT [facility] Note Drug Regimen Review / Medication Reconciliation Performed A Drug Regimen Review / Medication Reconciliation was performed upon Admission for: MARIA LONG (57 y.o.) Medication orders from the previous facility were reviewed by the pharmacy department. The pharmacy department will monitor the medication orders and associated labs during the patient'slength of stay for assurance of medication safety and efficacy. CARLOS A SHERWOOD, PharmD 7:51 PM documented in this encounter Plan of Treatment Pending Results Name Type Priority Associated Diagnoses Date /Time POCT glucose Point of Care Testing Routine 09/15/2017 10:45 PM CDT POCT glucose Point of Care Testing Routine 09/16/2017 6:27 AM CDT POCT glucose Point of Care Testing Routine 09/19/2017 11:53 AM CDT Point of Care Glucose Testing Point of Care Testing Routine 09/19/2017 5:10 PM CDT POCT glucose Point of Care Testing Routine 09/20/2017 12:44 PM CDT POCT glucose Point of Care Testing Routine 09/20/2017 5:34 PM CDT POCT glucose Point of Care Testing Routine 09/21/2017 5:00 PM CDT POCT glucose Point of Care Testing Routine 09/29/2017 9:00 PM CDT Point of Care Glucose Testing Point of Care Testing Routine 09/29/2017 9:00 PM CDT POCT glucose Point of Care Testing Routine 09/30/2017 6:37 PM CDT POCT glucose Point of Care Testing Routine 09/30/2017 9:00 PM CDT Point of Care Glucose Testing Point of Care Testing Routine 09/30/2017 6:00 AM CDT POCT glucose Point of Care Testing Routine 10/01/2017 6:00 AM CDT Scheduled Referrals Name Type Priority Associated Diagnoses Orde r Schedule Consult to Outpatient Therapy Outpatient Referral Routine Tinea corporis Essential hypertension Diabetes mellitus without mention of complication, type II or unspecified type, uncontrolled Dysarthria Dyslipidemia with high density lipoprotein below reference range and triglyceride above reference range due to type 2 diabetes mellitus Multiple lacunar infarcts Spastic hemiplegia affecting right dominant side Ordered: 10/09/2017 documented as of this encounter Procedures Procedure Name Priority Date/Time Associated Diagnosis Comments POCT GLUCOSE Routine 10/10/2017 6:57 AM CDT POCT GLUCOSE Routine 10/09/2017 11:17 PM CDT POCT GLUCOSE Routine 10/09/2017 11:50 AM CDT POCT GLUCOSE Routine 10/09/2017 6:07 AM CDT POCT GLUCOSE Routine 10/08/2017 4:48 PM CDT POCT GLUCOSE Routine 10/08/2017 12:32 PM CDT POCT GLUCOSE Routine 10/08/2017 7:41 AM CDT POCT GLUCOSE Routine 10/08/2017 6:24 AM CDT POCT GLUCOSE Routine 10/07/2017 8:00 PM CDT POCT GLUCOSE Routine 10/07/2017 5:00 PM CDT POCT GLUCOSE Routine 10/07/2017 12:00 PM CDT POCT GLUCOSE Routine 10/07/2017 6:34 AM CDT POCT GLUCOSE Routine 10/06/2017 8:14 PM CDT POCT GLUCOSE Routine 10/06/2017 8:13 PM CDT POCT GLUCOSE Routine 10/06/2017 5:04 PM CDT POCT GLUCOSE Routine 10/06/2017 12:00 PM CDT POCT GLUCOSE Routine 10/06/2017 6:53 AM CDT POCT GLUCOSE Routine 10/05/2017 10:00 PM CDT POCT GLUCOSE Routine 10/05/2017 4:40 PM CDT POCT GLUCOSE Routine 10/05/2017 4:00 PM CDT POCT GLUCOSE Routine 10/05/2017 12:00 PM CDT POCT GLUCOSE Routine 10/05/2017 6:27 AM CDT POCT GLUCOSE Routine 10/04/2017 10:07 PM CDT POCT GLUCOSE Routine 10/04/2017 5:12 PM CDT POCT GLUCOSE Routine 10/04/2017 11:54 AM CDT POCT GLUCOSE Routine 10/04/2017 11:53 AM CDT POCT GLUCOSE Routine 10/04/2017 6:28 AM CDT POCT GLUCOSE Routine 10/03/2017 10:22 PM CDT POCT GLUCOSE Routine 10/03/2017 10:21 PM CDT POCT GLUCOSE Routine 10/03/2017 6:36 AM CDT POCT GLUCOSE Routine 10/03/2017 6:35 AM CDT POCT GLUCOSE Routine 10/03/2017 2:00 AM CDT POCT GLUCOSE Routine 10/02/2017 5:00 PM CDT POCT GLUCOSE Routine 10/02/2017 11:52 AM CDT POCT GLUCOSE Routine 10/02/2017 6:58 AM CDT POCT GLUCOSE Routine 10/02/2017 6:12 AM CDT POCT GLUCOSE Routine 10/01/2017 10:17 PM CDT POCT GLUCOSE Routine 10/01/2017 8:04 PM CDT POCT GLUCOSE Routine 10/01/2017 8:04 PM CDT POCT GLUCOSE Routine 10/01/2017 8:03 PM CDT POCT GLUCOSE Routine 09/30/2017 6:40 PM CDT POCT GLUCOSE Routine 09/29/2017 5:06 PM CDT POCT GLUCOSE Routine 09/29/2017 12:00 PM CDT POCT GLUCOSE Routine 09/29/2017 6:48 AM CDT POCT GLUCOSE Routine 09/28/2017 10:00 PM CDT POCT GLUCOSE Routine 09/28/2017 5:43 PM CDT POCT GLUCOSE Routine 09/28/2017 12:17 PM CDT POCT GLUCOSE Routine 09/28/2017 6:30 AM CDT POCT GLUCOSE Routine 09/27/2017 10:09 PM CDT POCT GLUCOSE Routine 09/27/2017 4:00 PM CDT POCT GLUCOSE Routine 09/27/2017 12:00 PM CDT POCT GLUCOSE Routine 09/27/2017 6:35 AM CDT POCT GLUCOSE Routine 09/27/2017 6:33 AM CDT POCT GLUCOSE Routine 09/26/2017 10:21 PM CDT POCT GLUCOSE Routine 09/26/2017 10:20 PM CDT POCT GLUCOSE Routine 09/26/2017 5:00 PM CDT POCT GLUCOSE Routine 09/26/2017 12:00 PM CDT POCT GLUCOSE Routine 09/26/2017 6:52 AM CDT POCT GLUCOSE Routine 09/25/2017 8:15 PM CDT POCT GLUCOSE Routine 09/25/2017 4:59 PM CDT POCT GLUCOSE Routine 09/25/2017 12:08 PM CDT POCT GLUCOSE Routine 09/25/2017 12:08 PM CDT POCT GLUCOSE Routine 09/25/2017 5:55 AM CDT POCT GLUCOSE Routine 09/24/2017 9:22 PM CDT POCT GLUCOSE Routine 09/24/2017 5:09 PM CDT POCT GLUCOSE Routine 09/24/2017 11:43 AM CDT POCT GLUCOSE Routine 09/24/2017 6:29 AM CDT POCT GLUCOSE Routine 09/23/2017 9:28 PM CDT POCT GLUCOSE Routine 09/23/2017 5:21 PM CDT POCT GLUCOSE Routine 09/23/2017 12:24 PM CDT POCT GLUCOSE Routine 09/23/2017 6:26 AM CDT POCT GLUCOSE Routine 09/22/2017 10:00 PM CDT POCT GLUCOSE Routine 09/22/2017 4:40 PM CDT POCT GLUCOSE Routine 09/22/2017 12:19 PM CDT POCT GLUCOSE Routine 09/22/2017 6:04 AM CDT POCT GLUCOSE Routine 09/21/2017 10:00 PM CDT POCT GLUCOSE Routine 09/21/2017 12:00 PM CDT POCT GLUCOSE Routine 09/21/2017 6:21 AM CDT POCT GLUCOSE Routine 09/21/2017 6:21 AM CDT CBC Routine 09/21/2017 4:20 AM CDT BASIC METABOLIC PANEL Routine 09/21/2017 4:20 AM CDT POCT GLUCOSE Routine 09/20/2017 10:01 PM CDT POCT GLUCOSE Routine 09/20/2017 10:01 PM CDT POCT GLUCOSE Routine 09/20/2017 6:18 AM CDT POCT GLUCOSE Routine 09/19/2017 10:30 PM CDT POCT GLUCOSE Routine 09/19/2017 6:20 AM CDT POCT GLUCOSE Routine 09/18/2017 9:12 PM CDT POCT GLUCOSE Routine 09/18/2017 5:18 PM CDT POCT GLUCOSE Routine 09/18/2017 12:00 PM CDT POCT GLUCOSE Routine 09/18/2017 5:36 AM CDT CBC Routine 09/18/2017 4:00 AM CDT BASIC METABOLIC PANEL Routine 09/18/2017 4:00 AM CDT POCT GLUCOSE Routine 09/17/2017 10:19 PM CDT POCT GLUCOSE Routine 09/17/2017 4:21 PM CDT POCT GLUCOSE Routine 09/17/2017 11:59 AM CDT POCT GLUCOSE Routine 09/17/2017 6:29 AM CDT POCT GLUCOSE Routine 09/16/2017 11:25 PM CDT POCT GLUCOSE Routine 09/16/2017 7:28 PM CDT POCT GLUCOSE Routine 09/16/2017 7:27 PM CDT documented in this encounter Results * (ABNORMAL) Point of Care Glucose Testing (10/10/2017 6:57 AM CDT) Glucose Blood, POC 138(A) 80 - 130 mg/dL SM IN-HOUSE PROCEDURES Blood 10/10/2017 6:57 AM CDT us Yue Reed MD LAB POINT OF CARE TEST ORDERABL ES Final Result Performing Organization Address [facility] de Phone Number SM IN-HOUSE PROCEDURES * (ABNORMAL) Point of Care Glucose Testing (10/09/2017 11:17 PM CDT) Glucose Blood, POC 134(A) 80 - 130 mg/dL SM IN-HOUSE PROCEDURES Blood 10/09/2017 11:1 7 PM CDT us Yue Reed MD LAB POINT OF CARE TEST ORDERABL ES Final Result Performing Organization Address [facility] de Phone Number SM IN-HOUSE PROCEDURES * (ABNORMAL) POCT glucose (10/09/2017 11:50 AM CDT) Glucose Blood, POC 132(A) 80 - 130 mg/dL SM IN-HOUSE PROCEDURES Blood 10/09/2017 11:5 0 AM CDT us Yue Reed MD LAB POINT OF CARE TEST ORDERABL ES Final Result Performing Organization Address [facility] Co de Phone Number IN-HOUSE PROCEDURES * POCT glucose (10/09/2017 6:07 AM CDT) Glucose Blood, POC 116 80 - 130 mg/dL SM IN-HOUSE PROCEDURES Blood 10/09/2017 6:07 AM CDT us Yue Reed MD LAB POINT OF CARE TEST ORDERABL ES Final Result Performing Organization Address [facility]/ZIP Co de Phone Number SM IN-HOUSE PROCEDURES * POCT glucose (10/08/2017 4:48 PM CDT) Glucose Blood, POC 115 80 - 130 mg/dL SM IN-HOUSE PROCEDURES Blood 10/08/2017 4:48 PM CDT us Yue Reed MD LAB POINT OF CARE TEST ORDERABL ES Final Result Performing Organization Address [facility] de Phone Number IN-HOUSE PROCEDURES * POCT glucose (10/08/2017 12:32 PM CDT) Glucose Blood, POC 109 80 - 130 mg/dL IN-HOUSE PROCEDURES Blood 10/08/2017 12:3 2 PM CDT us Yue Reed MD LAB POINT OF CARE TEST ORDERABL ES Final Result Performing Organization Address [facility] de Phone Number IN-HOUSE PROCEDURES * (ABNORMAL) POCT glucose (10/08/2017 7:41 AM CDT) Glucose Blood, POC 154(A) 80 - 130 mg/dL IN-HOUSE PROCEDURES Blood 10/08/2017 7:41 AM CDT us Yue Rede MD LAB POINT OF CARE TEST ORDERABL ES Final Result Performing Organization Address [facility] de Phone Number IN-HOUSE PROCEDURES * (ABNORMAL) Point of Care Glucose Testing (10/08/2017 6:24 AM CDT) Glucose Blood, POC 154(A) 80 - 130 mg/dL IN-HOUSE PROCEDURES Blood 10/08/2017 6:24 AM CDT us Yue Reed MD LAB POINT OF CARE TEST ORDERABL ES Final Result Performing Organization Address [facility] de Phone Number IN-HOUSE PROCEDURES * (ABNORMAL) Point of Care Glucose Testing (10/07/2017 8:00 PM CDT) Glucose Blood, POC 170(A) 80 - 130 mg/dL SM IN-HOUSE PROCEDURES Blood 10/07/2017 8:00 PM CDT us Yue Reed MD LAB POINT OF CARE TEST ORDERABL ES Final Result Performing Organization Address [facility] de Phone Number IN-HOUSE PROCEDURES * (ABNORMAL) Point of Care Glucose Testing (10/07/2017 5:00 PM CDT) Glucose Blood, POC 185(A) 80 - 130 mg/dL SM IN-HOUSE PROCEDURES Blood 10/07/2017 5:00 PM CDT us Yue Reed MD LAB POINT OF CARE TEST ORDERABL ES Final Result Performing Organization Address [facility] de Phone Number IN-HOUSE PROCEDURES * (ABNORMAL) Point of Care Glucose Testing (10/07/2017 12:00 PM CDT) Glucose Blood, POC 271(A) 80 - 130 mg/dL IN-HOUSE PROCEDURES Blood 10/07/2017 12:0 0 PM CDT us Yue Reed MD LAB POINT OF CARE TEST ORDERABL ES Final Result Performing Organization Address [facility] Co de Phone Number IN-HOUSE PROCEDURES * (ABNORMAL) POCT glucose (10/07/2017 6:34 AM CDT) Glucose Blood, POC 151(A) 80 - 130 mg/dL IN-HOUSE PROCEDURES Blood 10/07/2017 6:34 AM CDT us Yue Reed MD LAB POINT OF CARE TEST ORDERABL ES Final Result Performing Organization Address [facility] Co de Phone Number IN-HOUSE PROCEDURES * (ABNORMAL) POCT glucose (10/06/2017 8:14 PM CDT) Glucose Blood, POC 151(A) 80 - 130 mg/dL SM IN-HOUSE PROCEDURES Blood 10/06/2017 8:14 PM CDT us Yue Reed MD LAB POINT OF CARE TEST ORDERABL ES Final Result Performing Organization Address [facility] de Phone Number IN-HOUSE PROCEDURES * (ABNORMAL) Point of Care Glucose Testing (10/06/2017 8:13 PM CDT) Glucose Blood, POC 151(A) 80 - 130 mg/dL SM IN-HOUSE PROCEDURES Blood 10/06/2017 8:13 PM CDT us Yue Reed MD LAB POINT OF CARE TEST ORDERABL ES Final Result Performing Organization Address [facility] de Phone Number IN-HOUSE PROCEDURES * POCT glucose (10/06/2017 5:04 PM CDT) Glucose Blood, POC 91 80 - 130 mg/dL SM IN-HOUSE PROCEDURES Blood 10/06/2017 5:04 PM CDT us Yue Reed MD LAB POINT OF CARE TEST ORDERABL ES Final Result Performing Organization Address [facility] de Phone Number IN-HOUSE PROCEDURES * (ABNORMAL) POCT glucose (10/06/2017 12:00 PM CDT) Glucose Blood, POC 157(A) 80 - 130 mg/dL SM IN-HOUSE PROCEDURES Blood 10/06/2017 12:0 0 PM CDT us Yue Reed MD LAB POINT OF CARE TEST ORDERABL ES Final Result Performing Organization Address [facility] Co de Phone Number IN-HOUSE PROCEDURES * (ABNORMAL) POCT glucose (10/06/2017 6:53 AM CDT) Glucose Blood, POC 128 80 - 130 mg/dL SM IN-HOUSE PROCEDURES Blood 10/06/2017 6:53 AM CDT us Yue Reed MD LAB POINT OF CARE TEST ORDERABL ES Final Result Performing Organization Address [facility] de Phone Number IN-HOUSE PROCEDURES * (ABNORMAL) POCT glucose (10/05/2017 10:00 PM CDT) Glucose Blood, POC 142(A) 80 - 130 mg/dL SM IN-HOUSE PROCEDURES Blood 10/05/2017 10:0 0 PM CDT us Yue Reed MD LAB POINT OF CARE TEST ORDERABL ES Final Result Performing Organization Address [facility] Phone Number IN-HOUSE PROCEDURES * POCT glucose (10/05/2017 4:40 PM CDT) Glucose Blood, POC 81 80 - 130 mg/dL IN-HOUSE PROCEDURES Blood 10/05/2017 4:40 PM CDT us Yue Reed MD LAB POINT OF CARE TEST ORDERABL ES Final Result Performing Organization Address [facility] de Phone Number IN-HOUSE PROCEDURES * (ABNORMAL) Point of Care Glucose Testing (10/05/2017 4:00 PM CDT) Glucose Blood, POC 70(A) 80 - 130 mg/dL IN-HOUSE PROCEDURES Blood 10/05/2017 4:00 PM CDT us Yue Reed MD LAB POINT OF CARE TEST ORDERABL ES Final Result Performing Organization Address [facility] de Phone Number IN-HOUSE PROCEDURES * (ABNORMAL) POCT glucose (10/05/2017 12:00 PM CDT) Glucose Blood, POC 178(A) 80 - 130 mg/dL SM IN-HOUSE PROCEDURES Blood 10/05/2017 12:0 0 PM CDT us Yue Reed MD LAB POINT OF CARE TEST ORDERABL ES Final Result Performing Organization Address [facility] Phone Number IN-HOUSE PROCEDURES * (ABNORMAL) POCT glucose (10/05/2017 6:27 AM CDT) Glucose Blood, POC 173(A) 80 - 130 mg/dL IN-HOUSE PROCEDURES Blood 10/05/2017 6:27 AM CDT us Yue Reed MD LAB POINT OF CARE TEST ORDERABL ES Final Result Performing Organization Address [facility] Phone Number IN-HOUSE PROCEDURES * (ABNORMAL) POCT glucose (10/04/2017 10:07 PM CDT) Glucose Blood, POC 190(A) 80 - 130 mg/dL IN-HOUSE PROCEDURES Blood 10/04/2017 10:0 7 PM CDT us Yue Reed MD LAB POINT OF CARE TEST ORDERABL ES Final Result Performing Organization Address [facility] Phone Number IN-HOUSE PROCEDURES * (ABNORMAL) POCT glucose (10/04/2017 5:12 PM CDT) Glucose Blood, POC 152(A) 80 - 130 mg/dL IN-HOUSE PROCEDURES Blood 10/04/2017 5:12 PM CDT us Yue Reed MD LAB POINT OF CARE TEST ORDERABL ES Final Result Performing Organization Address [facility] de Phone Number IN-HOUSE PROCEDURES * (ABNORMAL) POCT glucose (10/04/2017 11:54 AM CDT) Glucose Blood, POC 139(A) 80 - 130 mg/dL IN-HOUSE PROCEDURES Blood 10/04/2017 11:5 4 AM CDT us uYe Reed MD LAB POINT OF CARE TEST ORDERABL ES Final Result Performing Organization Address [facility] de Phone Number IN-HOUSE PROCEDURES * (ABNORMAL) Point of Care Glucose Testing (10/04/2017 11:53 AM CDT) Glucose Blood, POC 174(A) 80 - 130 mg/dL IN-HOUSE PROCEDURES Blood 10/04/2017 11:5 3 AM CDT us Yue Reed MD LAB POINT OF CARE TEST ORDERABL ES Final Result Performing Organization Address [facility] de Phone Number IN-HOUSE PROCEDURES * (ABNORMAL) POCT glucose (10/04/2017 6:28 AM CDT) Glucose Blood, POC 174(A) 80 - 130 mg/dL IN-HOUSE PROCEDURES Blood 10/04/2017 6:28 AM CDT us Yue Reed MD LAB POINT OF CARE TEST ORDERABL ES Final Result Performing Organization Address [facility] de Phone Number IN-HOUSE PROCEDURES * Point of Care Glucose Testing (10/03/2017 10:22 PM CDT) Glucose Blood, POC 88 80 - 130 mg/dL IN-HOUSE PROCEDURES Blood 10/03/2017 10:2 2 PM CDT us Yue Reed MD LAB POINT OF CARE TEST ORDERABL ES Final Result Performing Organization Address [facility] Co de Phone Number IN-HOUSE PROCEDURES * POCT glucose (10/03/2017 10:21 PM CDT) Glucose Blood, POC 88 80 - 130 mg/dL IN-HOUSE PROCEDURES Blood 10/03/2017 10:2 1 PM CDT us Yue Reed MD LAB POINT OF CARE TEST ORDERABL ES Final Result Performing Organization Address [facility]/ZIP Co de Phone Number IN-HOUSE PROCEDURES * Point of Care Glucose Testing (10/03/2017 6:36 AM CDT) Glucose Blood, POC 128 80 - 130 mg/dL SM IN-HOUSE PROCEDURES Blood 10/03/2017 6:36 AM CDT us Yue Reed MD LAB POINT OF CARE TEST ORDERABL ES Final Result Performing Organization Address [facility] Co de Phone Number IN-HOUSE PROCEDURES * POCT glucose (10/03/2017 6:35 AM CDT) Glucose Blood, POC 128 80 - 130 mg/dL IN-HOUSE PROCEDURES Blood 10/03/2017 6:35 AM CDT us Yue Reed MD LAB POINT OF CARE TEST ORDERABL ES Final Result Performing Organization Address [facility] Co de Phone Number IN-HOUSE PROCEDURES * (ABNORMAL) POCT glucose (10/03/2017 2:00 AM CDT) Glucose Blood, POC 145(A) 80 - 130 mg/dL IN-HOUSE PROCEDURES Blood 10/03/2017 2:00 AM CDT us Yue Reed MD LAB POINT OF CARE TEST ORDERABL ES Final Result Performing Organization Address [facility]/ZIP Co de Phone Number IN-HOUSE PROCEDURES * Point of Care Glucose Testing (10/02/2017 5:00 PM CDT) Glucose Blood, POC 100 80 - 130 mg/dL IN-HOUSE PROCEDURES Blood 10/02/2017 5:00 PM CDT us Yue Reed MD LAB POINT OF CARE TEST ORDERABL ES Final Result Performing Organization Address [facility]/State/ZIP Co de Phone Number SM IN-HOUSE PROCEDURES * (ABNORMAL) Point of Care Glucose Testing (10/02/2017 11:52 AM CDT) Glucose Blood, POC 200(A) 80 - 130 mg/dL SM IN-HOUSE PROCEDURES Blood 10/02/2017 11:5 2 AM CDT us Yue Reed MD LAB POINT OF CARE TEST ORDERABL ES Final Result Performing Organization Address [facility]/ZIP Co de Phone Number IN-HOUSE PROCEDURES * (ABNORMAL) Point of Care Glucose Testing (10/02/2017 6:58 AM CDT) Glucose Blood, POC 182(A) 80 - 130 mg/dL SM IN-HOUSE PROCEDURES Blood 10/02/2017 6:58 AM CDT us Yue Reed MD LAB POINT OF CARE TEST ORDERABL ES Final Result Performing Organization Address [facility] Co de Phone Number IN-HOUSE PROCEDURES * (ABNORMAL) Point of Care Glucose Testing (10/02/2017 6:12 AM CDT) Glucose Blood, POC 73(A) 80 - 130 mg/dL SM IN-HOUSE PROCEDURES Blood 10/02/2017 6:1 2 AM CDT us Yue Reed MD LAB POINT OF CARE TEST ORDERABL ES Final Result Performing Organization Address [facility] Co de Phone Number IN-HOUSE PROCEDURES * Point of Care Glucose Testing (10/01/2017 10:17 PM CDT) Glucose Blood, POC 125 80 - 130 mg/dL SM IN-HOUSE PROCEDURES Blood 10/01/2017 10:1 7 PM CDT us Yue Reed MD LAB POINT OF CARE TEST ORDERABL ES Final Result Performing Organization Address [facility] de Phone Number IN-HOUSE PROCEDURES * Point of Care Glucose Testing (10/01/2017 8:04 PM CDT) Glucose Blood, POC 100 80 - 130 mg/dL IN-HOUSE PROCEDURES Blood 10/01/2017 8:04 PM CDT us Yue Reed MD LAB POINT OF CARE TEST ORDERABL ES Final Result Performing Organization Address [facility] de Phone Number IN-HOUSE PROCEDURES * (ABNORMAL) POCT glucose (10/01/2017 8:04 PM CDT) Glucose Blood, POC 151(A) 80 - 130 mg/dL IN-HOUSE PROCEDURES Blood 10/01/2017 8:04 PM CDT us Yue Reed MD LAB POINT OF CARE TEST ORDERABL ES Final Result Performing Organization Address [facility] de Phone Number IN-HOUSE PROCEDURES * Point of Care Glucose Testing (10/01/2017 8:03 PM CDT) Glucose Blood, POC 125 80 - 130 mg/dL IN-HOUSE PROCEDURES Blood 10/01/2017 8:03 PM CDT us Yue Reed MD LAB POINT OF CARE TEST ORDERABL ES Final Result Performing Organization Address [facility] de Phone Number IN-HOUSE PROCEDURES * (ABNORMAL) POCT glucose (09/30/2017 6:40 PM CDT) Glucose Blood, POC 151(A) 80 - 130 mg/dL IN-HOUSE PROCEDURES Blood 09/30/2017 6:40 PM CDT us Yue Reed MD LAB POINT OF CARE TEST ORDERABL ES Final Result Performing Organization Address [facility] de Phone Number IN-HOUSE PROCEDURES * Point of Care Glucose Testing (09/29/2017 5:06 PM CDT) Glucose Blood, POC 88 80 - 130 mg/dL SM IN-HOUSE PROCEDURES Blood 09/29/2017 5:06 PM CDT us Yue Reed MD LAB POINT OF CARE TEST ORDERABL ES Final Result Performing Organization Address [facility] Co de Phone Number IN-HOUSE PROCEDURES * (ABNORMAL) Point of Care Glucose Testing (09/29/2017 12:00 PM CDT) Glucose Blood, POC 154(A) 80 - 130 mg/dL SM IN-HOUSE PROCEDURES Blood 09/29/2017 12:0 0 PM CDT us Yue Reed MD LAB POINT OF CARE TEST ORDERABL ES Final Result Performing Organization Address [facility] de Phone Number IN-HOUSE PROCEDURES * (ABNORMAL) POCT glucose (09/29/2017 6:48 AM CDT) Glucose Blood, POC 151(A) 80 - 130 mg/dL IN-HOUSE PROCEDURES Blood 09/29/2017 6:48 AM CDT us Yue Reed MD LAB POINT OF CARE TEST ORDERABL ES Final Result Performing Organization Address [facility] Co de Phone Number IN-HOUSE PROCEDURES * POCT glucose (09/28/2017 10:00 PM CDT) Glucose Blood, POC 127 80 - 130 mg/dL SM IN-HOUSE PROCEDURES Blood 09/28/2017 10:0 0 PM CDT us Yue Reed MD LAB POINT OF CARE TEST ORDERABL ES Final Result Performing Organization Address [facility] Co de Phone Number IN-HOUSE PROCEDURES * Point of Care Glucose Testing (09/28/2017 5:43 PM CDT) Glucose Blood, POC 86 80 - 130 mg/dL SM IN-HOUSE PROCEDURES Blood 09/28/2017 5:43 PM CDT us Yue Reed MD LAB POINT OF CARE TEST ORDERABL ES Final Result Performing Organization Address [facility] Co de Phone Number IN-HOUSE PROCEDURES * (ABNORMAL) POCT glucose (09/28/2017 12:17 PM CDT) Glucose Blood, POC 182(A) 80 - 130 mg/dL SM IN-HOUSE PROCEDURES Blood 09/28/2017 12:1 7 PM CDT us Yue Reed MD LAB POINT OF CARE TEST ORDERABL ES Final Result Performing Organization Address [facility] de Phone Number IN-HOUSE PROCEDURES * (ABNORMAL) POCT glucose (09/28/2017 6:30 AM CDT) Glucose Blood, POC 219(A) 80 - 130 mg/dL SM IN-HOUSE PROCEDURES Blood 09/28/2017 6:30 AM CDT us Yue Reed MD LAB POINT OF CARE TEST ORDERABL ES Final Result Performing Organization Address [facility] de Phone Number IN-HOUSE PROCEDURES * (ABNORMAL) POCT glucose (09/27/2017 10:09 PM CDT) Glucose Blood, POC 147(A) 80 - 130 mg/dL SM IN-HOUSE PROCEDURES Blood 09/27/2017 10:0 9 PM CDT us Yue Reed MD LAB POINT OF CARE TEST ORDERABL ES Final Result Performing Organization Address [facility] Co de Phone Number IN-HOUSE PROCEDURES * (ABNORMAL) Point of Care Glucose Testing (09/27/2017 4:00 PM CDT) Glucose Blood, POC 142(A) 80 - 130 mg/dL SM IN-HOUSE PROCEDURES Blood 09/27/2017 4:00 PM CDT us Yue Reed MD LAB POINT OF CARE TEST ORDERABL ES Final Result Performing Organization Address [facility] Phone Number IN-HOUSE PROCEDURES * (ABNORMAL) Point of Care Glucose Testing (09/27/2017 12:00 PM CDT) Glucose Blood, POC 172(A) 80 - 130 mg/dL SM IN-HOUSE PROCEDURES Blood 09/27/2017 12:0 0 PM CDT us Yue Reed MD LAB POINT OF CARE TEST ORDERABL ES Final Result Performing Organization Address [facility] [facility] Phone Number IN-HOUSE PROCEDURES * (ABNORMAL) Point of Care Glucose Testing (09/27/2017 6:35 AM CDT) Glucose Blood, POC 174(A) 80 - 130 mg/dL SM IN-HOUSE PROCEDURES Blood 09/27/2017 6:35 AM CDT us Yue Reed MD LAB POINT OF CARE TEST ORDERABL ES Final Result Performing Organization Address [facility] de Phone Number IN-HOUSE PROCEDURES * (ABNORMAL) POCT glucose (09/27/2017 6:33 AM CDT) Glucose Blood, POC 174(A) 80 - 130 mg/dL IN-HOUSE PROCEDURES Blood 09/27/2017 6:33 AM CDT us Yue Reed MD LAB POINT OF CARE TEST ORDERABL ES Final Result Performing Organization Address [facility] Co de Phone Number IN-HOUSE PROCEDURES * (ABNORMAL) Point of Care Glucose Testing (09/26/2017 10:21 PM CDT) Glucose Blood, POC 149(A) 80 - 130 mg/dL SM IN-HOUSE PROCEDURES Blood 09/26/2017 10:2 1 PM CDT us Yue Reed MD LAB POINT OF CARE TEST ORDERABL ES Final Result Performing Organization Address [facility] de Phone Number IN-HOUSE PROCEDURES * (ABNORMAL) POCT glucose (09/26/2017 10:20 PM CDT) Glucose Blood, POC 149(A) 80 - 130 mg/dL SM IN-HOUSE PROCEDURES Blood 09/26/2017 10:2 0 PM CDT us Yue Reed MD LAB POINT OF CARE TEST ORDERABL ES Final Result Performing Organization Address [facility] Phone Number IN-HOUSE PROCEDURES * POCT glucose (09/26/2017 5:00 PM CDT) Glucose Blood, POC 127 80 - 130 mg/dL IN-HOUSE PROCEDURES Blood 09/26/2017 5:00 PM CDT us Yue Reed MD LAB POINT OF CARE TEST ORDERABL ES Final Result Performing Organization Address [facility] de Phone Number IN-HOUSE PROCEDURES * (ABNORMAL) POCT glucose (09/26/2017 12:00 PM CDT) Glucose Blood, POC 176(A) 80 - 130 mg/dL IN-HOUSE PROCEDURES Blood 09/26/2017 12:0 0 PM CDT us Yue Reed MD LAB POINT OF CARE TEST ORDERABL ES Final Result Performing Organization Address [facility] Co de Phone Number IN-HOUSE PROCEDURES * (ABNORMAL) POCT glucose (09/26/2017 6:52 AM CDT) Glucose Blood, POC 157(A) 80 - 130 mg/dL SM IN-HOUSE PROCEDURES Blood 09/26/2017 6:52 AM CDT us Yue Reed MD LAB POINT OF CARE TEST ORDERABL ES Final Result Performing Organization Address [facility] Phone Number IN-HOUSE PROCEDURES * POCT glucose (09/25/2017 8:15 PM CDT) Glucose Blood, POC 96 80 - 130 mg/dL IN-HOUSE PROCEDURES Blood 09/25/2017 8:15 PM CDT us Yue Reed MD LAB POINT OF CARE TEST ORDERABL ES Final Result Performing Organization Address [facility] Phone Number IN-HOUSE PROCEDURES * POCT glucose (09/25/2017 4:59 PM CDT) Glucose Blood, POC 90 80 - 130 mg/dL IN-HOUSE PROCEDURES Blood 09/25/2017 4:59 PM CDT us Yue Reed MD LAB POINT OF CARE TEST ORDERABL ES Final Result Performing Organization Address [facility] de Phone Number IN-HOUSE PROCEDURES * Point of Care Glucose Testing (09/25/2017 12:08 PM CDT) Glucose Blood, POC 113 80 - 130 mg/dL IN-HOUSE PROCEDURES Blood 09/25/2017 12:0 8 PM CDT us Yue Reed MD LAB POINT OF CARE TEST ORDERABL ES Final Result Performing Organization Address [facility] Co de Phone Number IN-HOUSE PROCEDURES * Point of Care Glucose Testing (09/25/2017 12:08 PM CDT) Glucose Blood, POC 113 80 - 130 mg/dL IN-HOUSE PROCEDURES Blood 09/25/2017 12:0 8 PM CDT us Yue Reed MD LAB POINT OF CARE TEST ORDERABL ES Final Result Performing Organization Address [facility]/ZIP Co de Phone Number IN-HOUSE PROCEDURES * POCT glucose (09/25/2017 5:55 AM CDT) Glucose Blood, POC 130 80 - 130 mg/dL SM IN-HOUSE PROCEDURES Blood 09/25/2017 5:55 AM CDT Yue Reed MD LAB POINT OF CARE TEST ORDERABL ES Final Result Performing Organization Address [facility] Co de Phone Number IN-HOUSE PROCEDURES * (ABNORMAL) POCT glucose (09/24/2017 9:22 PM CDT) Glucose Blood, POC 144(A) 80 - 130 mg/dL SM IN-HOUSE PROCEDURES Blood 09/24/2017 9:22 PM CDT Yue Reed MD LAB POINT OF CARE TEST ORDERABL ES Final Result Performing Organization Address [facility] Co de Phone Number IN-HOUSE PROCEDURES * (ABNORMAL) Point of Care Glucose Testing (09/24/2017 5:09 PM CDT) Glucose Blood, POC 74(A) 80 - 130 mg/dL SM IN-HOUSE PROCEDURES Blood 09/24/2017 5:09 PM CDT Yue Reed MD LAB POINT OF CARE TEST ORDERABL ES Final Result Performing Organization Address [facility] Co de Phone Number IN-HOUSE PROCEDURES * (ABNORMAL) Point of Care Glucose Testing (09/24/2017 11:43 AM CDT) Glucose Blood, POC 194(A) 80 - 130 mg/dL SM IN-HOUSE PROCEDURES Blood 09/24/2017 11:4 3 AM CDT us Yue Reed MD LAB POINT OF CARE TEST ORDERABL ES Final Result Performing Organization Address [facility] Co de Phone Number IN-HOUSE PROCEDURES * (ABNORMAL) POCT glucose (09/24/2017 6:29 AM CDT) Glucose Blood, POC 137(A) 80 - 130 mg/dL IN-HOUSE PROCEDURES Blood 09/24/2017 6:29 AM CDT us Yue Reed MD LAB POINT OF CARE TEST ORDERABL ES Final Result Performing Organization Address [facility] Co de Phone Number IN-HOUSE PROCEDURES * POCT glucose (09/23/2017 9:28 PM CDT) Glucose Blood, POC 98 80 - 130 mg/dL IN-HOUSE PROCEDURES Blood 09/23/2017 9:28 PM CDT us Yue Reed MD LAB POINT OF CARE TEST ORDERABL ES Final Result Performing Organization Address [facility] de Phone Number IN-HOUSE PROCEDURES * Point of Care Glucose Testing (09/23/2017 5:21 PM CDT) Glucose Blood, POC 111 80 - 130 mg/dL IN-HOUSE PROCEDURES Blood 09/23/2017 5:21 PM CDT us Yue Reed MD LAB POINT OF CARE TEST ORDERABL ES Final Result Performing Organization Address [facility] de Phone Number IN-HOUSE PROCEDURES * POCT glucose (09/23/2017 12:24 PM CDT) Glucose Blood, POC 85 80 - 130 mg/dL IN-HOUSE PROCEDURES Blood 09/23/2017 12:2 4 PM CDT us Yue Reed MD LAB POINT OF CARE TEST ORDERABL ES Final Result Performing Organization Address [facility] Co de Phone Number IN-HOUSE PROCEDURES * Point of Care Glucose Testing (09/23/2017 6:26 AM CDT) Glucose Blood, POC 118 80 - 130 mg/dL SM IN-HOUSE PROCEDURES Blood 09/23/2017 6:26 AM CDT us Yue Reed MD LAB POINT OF CARE TEST ORDERABL ES Final Result Performing Organization Address [facility] de Phone Number IN-HOUSE PROCEDURES * (ABNORMAL) Point of Care Glucose Testing (09/22/2017 10:00 PM CDT) Glucose Blood, POC 169(A) 80 - 130 mg/dL SM IN-HOUSE PROCEDURES Blood 09/22/2017 10:0 0 PM CDT us Yue Reed MD LAB POINT OF CARE TEST ORDERABL ES Final Result Performing Organization Address [facility] de Phone Number IN-HOUSE PROCEDURES * Point of Care Glucose Testing (09/22/2017 4:40 PM CDT) Glucose Blood, POC 113 80 - 130 mg/dL IN-HOUSE PROCEDURES Blood 09/22/2017 4:40 PM CDT us Yue Reed MD LAB POINT OF CARE TEST ORDERABL ES Final Result Performing Organization Address [facility] Co de Phone Number IN-HOUSE PROCEDURES * (ABNORMAL) POCT glucose (09/22/2017 12:19 PM CDT) Glucose Blood, POC 131(A) 80 - 130 mg/dL SM IN-HOUSE PROCEDURES Blood 09/22/2017 12:1 9 PM CDT us Yue Reed MD LAB POINT OF CARE TEST ORDERABL ES Edited Result - Final Performing Organization Address [facility] Co de Phone Number IN-HOUSE PROCEDURES * (ABNORMAL) Point of Care Glucose Testing (09/22/2017 6:04 AM CDT) Glucose Blood, POC 169(A) 80 - 130 mg/dL SM IN-HOUSE PROCEDURES Blood 09/22/2017 6:04 AM CDT us Yue Reed MD LAB POINT OF CARE TEST ORDERABL ES Final Result Performing Organization Address [facility] Phone Number IN-HOUSE PROCEDURES * Point of Care Glucose Testing (09/21/2017 10:00 PM CDT) Glucose Blood, POC 109 80 - 130 mg/dL SM IN-HOUSE PROCEDURES Blood 09/21/2017 10:0 0 PM CDT us Yue Reed MD LAB POINT OF CARE TEST ORDERABL ES Final Result Performing Organization Address [facility] Phone Number IN-HOUSE PROCEDURES * POCT glucose (09/21/2017 12:00 PM CDT) Glucose Blood, POC 115 80 - 130 mg/dL SM IN-HOUSE PROCEDURES Blood 09/21/2017 12:0 0 PM CDT us Yue Reed MD LAB POINT OF CARE TEST ORDERABL ES Final Result Performing Organization Address [facility] Phone Number IN-HOUSE PROCEDURES * (ABNORMAL) Point of Care Glucose Testing (09/21/2017 6:21 AM CDT) Glucose Blood, POC 140(A) 80 - 130 mg/dL SM IN-HOUSE PROCEDURES Blood 09/21/2017 6:21 AM CDT us Yue Reed MD LAB POINT OF CARE TEST ORDERABL ES Final Result Performing Organization Address [facility] de Phone Number IN-HOUSE PROCEDURES * (ABNORMAL) POCT glucose (09/21/2017 6:21 AM CDT) Glucose Blood, POC 140(A) 80 - 130 mg/dL IN-HOUSE PROCEDURES Blood 09/21/2017 6:21 AM CDT Yue Reed MD LAB POINT OF CARE TEST ORDERABL ES Final Result Performing Organization Address [facility] Co de Phone Number IN-HOUSE PROCEDURES * (ABNORMAL) Basic metabolic panel (09/21/2017 4:20 AM CDT) Glucose mg/dL Blood 113(H) 74 - 106 mg/dL [facility] Sodium mmol/L Blood 138 136 - 145 mmol/L [facility] Potassium mmol/L Blood 3.8 3.5 - 5.1 mmol/L [facility] Chloride 101 98 - 107 mmol/L [facility] CO2 28 22 - 31 mmol/L [facility] Calcium mg/dL Blood 9.1 8.5 - 10.1 mg/dL [facility] Anion Gap Blood 9 8 - 16 mmol/L [facility] Bun mg/dL Blood 15 7 - 21 mg/dL [facility] Creatinine 0.70 0.50 - 1.30 mg/dL [facility] Egfr By MDRD ml/Min/1.73 M2 Blood >60 >60 mL/min/1.7 3m2 [facility] Egfr By MDRD ml/Min/1.73 M2 Blood Afr.Amer >60 >60 mL/min/1.7 3m2 [facility] Blood 09/21/2017 4:20 AM CDT 09/21/2017 7:27 AM CDT Zehra Hirsch MD LAB BLOOD ORDERABLES Final Res ult Performing Organization Address [facility]/ZIP Co de Phone Number [facility] [address] [place] [address] * (ABNORMAL) CBC (09/21/2017 4:20 AM CDT) WBC X(10)9/L Blood 10.6 4.4 - 10.7 x10E9/L [facility] Rbc X(10)12/L Blood 4.77 3.80 - 5.20 x10E12/L [facility] HGB gm/dL Blood 15.1 12.0 - 15.6 gm/dL [facility] HCT % Blood 44.3 35.9 - 45.5 % [facility] MCV fL Blood 92.9 80.7 - 98.3 fl [facility] MCH pg Blood 31.7 26.7 - 34.0 pg [facility] MCHC gm/dL Blood 34.1 30.8 - 35.9 gm/dL [facility] Plt Ct X(10)9/L Blood 240 153 - 416 x10E9/L [facility] RDW-Cv % Blood 11.9(L) 12.1 - 14.9 % [facility] MPV fL Blood 11.1 9.4 - 12.9 fl [facility] Blood 09/21/2017 4:20 AM CDT 09/21/2017 7:27 AM CDT Zehra Hirsch MD LAB BLOOD ORDERABLES Final Res ult [facility] [id number] [place] [id number] * (ABNORMAL) Point of Care Glucose Testing (09/20/2017 10:01 PM CDT) Glucose Blood, POC 149(A) 80 - 130 mg/dL IN-HOUSE PROCEDURES Blood 09/20/2017 10:0 1 PM CDT Yue eRed MD LAB POINT OF CARE TEST ORDERABL ES Final Result IN-HOUSE PROCEDURES * (ABNORMAL) POCT glucose (09/20/2017 10:01 PM CDT) Glucose Blood, POC 149(A) 80 - 130 mg/dL IN-HOUSE PROCEDURES Blood 09/20/2017 10:0 1 PM CDT Yue Reed MD LAB POINT OF CARE TEST ORDERABL ES Final Result Performing Organization Address [facility] de Phone Number SM IN-HOUSE PROCEDURES * (ABNORMAL) POCT glucose (09/20/2017 6:18 AM CDT) Glucose Blood, POC 155(A) 80 - 130 mg/dL SM IN-HOUSE PROCEDURES Blood 09/20/2017 6:18 AM CDT us Yue Reed MD LAB POINT OF CARE TEST ORDERABL ES Final Result Performing Organization Address [facility] de Phone Number IN-HOUSE PROCEDURES * POCT glucose (09/19/2017 10:30 PM CDT) Glucose Blood, POC 122 80 - 130 mg/dL IN-HOUSE PROCEDURES Blood 09/19/2017 10:3 0 PM CDT us Yue Reed MD LAB POINT OF CARE TEST ORDERABL ES Final Result Performing Organization Address [facility] de Phone Number IN-HOUSE PROCEDURES * (ABNORMAL) Point of Care Glucose Testing (09/19/2017 6:20 AM CDT) Glucose Blood, POC 183(A) 80 - 130 mg/dL IN-HOUSE PROCEDURES Blood 09/19/2017 6:20 AM CDT us Yue Reed MD LAB POINT OF CARE TEST ORDERABL ES Final Result Performing Organization Address [facility] de Phone Number IN-HOUSE PROCEDURES * (ABNORMAL) Point of Care Glucose Testing (09/18/2017 9:12 PM CDT) Glucose Blood, POC 143(A) 80 - 130 mg/dL IN-HOUSE PROCEDURES Blood 09/18/2017 9:12 PM CDT us Yue Reed MD LAB POINT OF CARE TEST ORDERABL ES Final Result Performing Organization Address [facility] de Phone Number IN-HOUSE PROCEDURES * (ABNORMAL) POCT glucose (09/18/2017 5:18 PM CDT) Glucose Blood, POC 145(A) 80 - 130 mg/dL IN-HOUSE PROCEDURES Blood 09/18/2017 5:18 PM CDT Yue Reed MD LAB POINT OF CARE TEST ORDERABL ES Final Result Performing Organization Address [facility] de Phone Number IN-HOUSE PROCEDURES * (ABNORMAL) POCT glucose (09/18/2017 12:00 PM CDT) Glucose Blood, POC 230(A) 80 - 130 mg/dL IN-HOUSE PROCEDURES Blood 09/18/2017 12:0 0 PM CDT Yue Reed MD LAB POINT OF CARE TEST ORDERABL ES Final Result Performing Organization Address [facility] de Phone Number IN-HOUSE PROCEDURES * (ABNORMAL) POCT glucose (09/18/2017 5:36 AM CDT) Glucose Blood, POC 241(A) 80 - 130 mg/dL IN-HOUSE PROCEDURES Blood 09/18/2017 5:36 AM CDT Yue Reed MD LAB POINT OF CARE TEST ORDERABL ES Final Result Performing Organization Address [facility] de Phone Number IN-HOUSE PROCEDURES * (ABNORMAL) Basic metabolic panel (09/18/2017 4:00 AM CDT) Glucose mg/dL Blood 219(H) 74 - 106 mg/dL [facility] Sodium mmol/L Blood 136 136 - 145 mmol/L [facility] Potassium mmol/L Blood 4.3 3.5 - 5.1 mmol/L [facility] Chloride 105 98 - 107 mmol/L [facility] CO2 21(L) 22 - 31 mmol/L [facility] Calcium mg/dL Blood 8.7 8.5 - 10.1 mg/dL [facility] Anion Gap Blood 10 8 - 16 mmol/L [facility] Bun mg/dL Blood 19 7 - 21 mg/dL [facility] Creatinine 0.62 0.50 - 1.30 mg/dL [facility] Egfr By MDRD ml/Min/1.73 M2 Blood >60 >60 mL/min/1.7 3m2 [facility] Egfr By MDRD ml/Min/1.73 M2 Blood Afr.Amer >60 >60 mL/min/1.7 3m2 [facility] Blood 09/18/2017 4:00 AM CDT 09/18/2017 7:02 AM CDT us Zehra Hirsch MD LAB BLOOD ORDERABLES Final Res ult [facility] [address] [place] [address] * (ABNORMAL) CBC (09/18/2017 4:00 AM CDT) WBC X(10)9/L Blood 11.1(H) 4.4 - 10.7 x10E9/L [facility] Rbc X(10)12/L Blood 4.76 3.80 - 5.20 x10E12/L [facility] HGB gm/dL Blood 14.9 12.0 - 15.6 gm/dL [facility] HCT % Blood 45.1 35.9 - 45.5 % [facility] MCV fL Blood 94.7 80.7 - 98.3 fl [facility] MCH pg Blood 31.3 26.7 - 34.0 pg [facility] MCHC gm/dL Blood 33.0 30.8 - 35.9 gm/dL [facility] Plt Ct X(10)9/L Blood 218 153 - 416 x10E9/L [facility] RDW-Cv % Blood 11.5(L) 12.1 - 14.9 % [facility] MPV fL Blood 11.0 9.4 - 12.9 fl [facility] Blood 09/18/2017 4:00 AM CDT 09/18/2017 7:03 AM CDT Zehra Hirsch MD LAB BLOOD ORDERABLES Final Res ult Performing Organization Address [facility] Co de Phone Number [facility] [address] [place] [id number] * (ABNORMAL) POCT glucose (09/17/2017 10:19 PM CDT) Glucose Blood, POC 220(A) 80 - 130 mg/dL IN-HOUSE PROCEDURES Blood 09/17/2017 10:1 9 PM CDT Yue Reed MD LAB POINT OF CARE TEST ORDERABL ES Final Result Performing Organization Address [facility] de Phone Number IN-HOUSE PROCEDURES * (ABNORMAL) POCT glucose (09/17/2017 4:21 PM CDT) Glucose Blood, POC 250(A) 80 - 130 mg/dL IN-HOUSE PROCEDURES Blood 09/17/2017 4:21 PM CDT us Yue Reed MD LAB POINT OF CARE TEST ORDERABL ES Final Result Performing Organization Address [facility] de Phone Number IN-HOUSE PROCEDURES * (ABNORMAL) POCT glucose (09/17/2017 11:59 AM CDT) Glucose Blood, POC 244(A) 80 - 130 mg/dL IN-HOUSE PROCEDURES Blood 09/17/2017 11:5 9 AM CDT Yue Reed MD LAB POINT OF CARE TEST ORDERABL ES Final Result Performing Organization Address [facility] de Phone Number IN-HOUSE PROCEDURES * (ABNORMAL) POCT glucose (09/17/2017 6:29 AM CDT) Glucose Blood, POC 239(A) 80 - 130 mg/dL IN-HOUSE PROCEDURES Blood 09/17/2017 6:29 AM CDT us Yue Reed MD LAB POINT OF CARE TEST ORDERABL ES Final Result Performing Organization Address [facility] Co de Phone Number IN-HOUSE PROCEDURES * (ABNORMAL) POCT glucose (09/16/2017 11:25 PM CDT) Glucose Blood, POC 283(A) 80 - 130 mg/dL IN-HOUSE PROCEDURES Blood 09/16/2017 11:2 5 PM CDT us Yue Reed MD LAB POINT OF CARE TEST ORDERABL ES Final Result Performing Organization Address [facility] de Phone Number IN-HOUSE PROCEDURES * (ABNORMAL) POCT glucose (09/16/2017 7:28 PM CDT) Glucose Blood, POC 269(A) 80 - 130 mg/dL IN-HOUSE PROCEDURES Blood 09/16/2017 7:28 PM CDT us Yue Reed MD LAB POINT OF CARE TEST ORDERABL ES Final Result Performing Organization Address [facility] Co de Phone Number IN-HOUSE PROCEDURES * (ABNORMAL) POCT glucose (09/16/2017 7:27 PM CDT) Glucose Blood, POC 263(A) 80 - 130 mg/dL IN-HOUSE PROCEDURES Blood 09/16/2017 7:27 PM CDT us Yue Reed MD LAB POINT OF CARE TEST ORDERABL ES Final Result Performing Organization Address [facility] Co de Phone Number IN-HOUSE PROCEDURES documented in this encounter Visit Diagnoses Diagnosis Tinea corporis- Primary Essential hypertension Diabetes mellitus without mention of complication, type II or unspecified type, uncontrolled Flaccid hemiplegia affecting right dominant side Dysarthria Dyslipidemia with high density lipoprotein below reference range and triglyceride above reference range due to type 2 diabetes mellitus Multiple lacunar infarcts Spastic hemiplegia affecting right dominant side Morbid obesity Essential hypertension Diabetes mellitus without mention of complication, type II or unspecified type, uncontrolled Hemiplegia affecting right dominant side Dysarthria Dyslipidemia with high density lipoprotein below reference range and triglyceride above reference range due to type 2 diabetes mellitus Multiple lacunar infarcts Morbid obesity documented in this encounter Administered Medications Inactive Administered Medications - up to 3 most recent administrations Medication Order MAR Action Action Date Dose Rate Site Alogliptin Benzoate (NESINA) 6.25 mg 6.25 mg, Oral, Daily, First dose on Thu09/19/17 at 0900, Until Discontinued Given 09/22/2017 8:13 AM CDT 6.25 mg Given 09/21/2017 8:40 AM CDT 6.25 mg Given 09/20/2017 8:14 AM CDT 6.25 mg aspirin EC tablet 81 mg 81 mg, Oral, Daily, First dose on Thu09/16/17 at 0900, Until Discontinued Given 10/10/2017 9:07 AM CDT 81 mg Given 10/09/2017 8:18 AM CDT 81 mg Given 10/08/2017 8:20 AM CDT 81 mg atorvastatin (LIPITOR) tablet 40 mg 40 mg, Oral, Nightly, First dose on Thu09/15/17 at 2100, Until Discontinued Given 10/09/2017 9:49 PM CDT 40 mg Given 10/08/2017 8:25 PM CDT 40 mg Given 10/07/2017 8:04 PM CDT 40 mg clotrimazole (LOTRIMIN) 1 % cream Topical, 2 times daily (2 times per day), First dose on Thu09/15/17 at 2100, Until Discontinued, Apply to SKIN FOLDS WITH RASH., Reason for Therapy: Fungal Infection Suspected, Type of Therapy: Continued from 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, Indication: Other, Specify: SKIN FOLDS RASH Given 10/01/2017 8:49 AM CDT Given 09/30/2017 8:42 PM CDT Given 09/29/2017 9:15 PM CDT enoxaparin (LOVENOX) syringe 40 mg 40 mg, Subcutaneous, Every 24 hours, First dose on Thu09/18/17 at 0600, Until Discontinued, HIGH RISK MEDICATION Given 09/25/2017 5:15 AM CDT 40 mg Abdominal Tissue Given 09/24/2017 6:00 AM CDT 40 mg Ab dominal Tissue Given 09/23/2017 5:04 AM CDT 40 mg Ab dominal Tissue glimepiride (AMARYL) tablet 4 mg 4 mg, Oral, Daily with breakfast, First dose on Thu09/18/17 at 0800, Until Discontinued Given 10/10/2017 9:07 AM CDT 4 mg Given 10/09/2017 8:17 AM CDT 4 mg Given 10/08/2017 8:21 AM CDT 4 mg griseofulvin (JOSELITO-PEG) tablet 250 mg 250 mg, Oral, 2 times daily after meals, 28 doses, First dose on Thu09/26/17 at 1000, Last dose on Thu10/09/17 at 1800, Please continue the treatment for 3 weeks in total. PAVEL Reed M.D., Reason for Therapy: Fungal Infection Documented, Type of Therapy: New Therapy, Indication: Other, Specify: dermatophytosis Given 09/30/2017 8:17 AM CDT 250 mg Given 09/29/2017 5:31 PM CDT 250 mg Given 09/29/2017 8:25 AM CDT 250 mg griseofulvin (JOSELITO-PEG) tablet 250 mg 250 mg, Oral, 2 times daily after meals, 34 doses, First dose (after last modification) on Thu09/30/17 at 1800, Last dose on Thu10/17/17 at 0900, Please continue the treatment for 3 weeks in total. - note written 09/30. PAVEL Reed M.D., Reason for Therapy: Fungal Infection Documented, Type of Therapy: New Therapy, Indication: Other, Specify: dermatophytosis Given 10/10/2017 9:08 AM CDT 250 mg Given 10/09/2017 5:37 PM CDT 250 mg Given 10/09/2017 8:18 AM CDT 250 mg heparin (porcine) injection 5,000 Units 5,000 Units, Subcutaneous, Every 8 hours, First dose on Thu09/15/17 at 2200, Until Discontinued, HIGH RISK MEDICATION Given 09/17/2017 1:44 PM CDT 5,000 Units Abdominal Tissue Given 09/17/2017 6:15 AM CDT 5,000 Units A bdominal Tissue Given 09/16/2017 9:33 PM CDT 5,000 Units A bdominal Tissue insulin glargine (LANTUS) injection 10 Units 10 Units, Subcutaneous, Daily with breakfast, First dose on Thu09/17/17 at 0800, Until Discontinued Given - Witness Not Required 09/17/2017 7:20 AM CDT 10 Units Abdominal Tissue insulin lispro (HumaLOG) injection 0-12 Units 0-12 Units, Subcutaneous, 4 times daily before meals and nightly, 80 doses, First dose on Thu09/15/17 at 2230, Last dose on Thu10/05/17 at 1630, Blood Sugar Low Dose <70 Initiate hypoglycemia treatment 70 - 150 No Insulin 151-200 2 units 201-250 4 units 251-300 6 units 301-350 8 units 351-400 10 units >400 12 units & Call Medical Provider Given - Witness Not Required 09/24/2017 12:29 PM CDT 2 Units Abdominal Tissue Given 09/22/2017 9:14 PM CDT 2 Units Ab dominal Tissue Given - Witness Not Required 09/22/2017 8:13 AM CDT 2 Unit s Abdominal Tissue lactulose (CHRONULAC) 10 GM/15ML solution 30 g 30 g, Oral, Daily PRN, Starting on Thu09/23/17 at 1152, Until 10/10/17 at 1337, constipation Given 09/28/2017 5:48 PM CDT 30 g Given 09/23/2017 5:30 PM CDT 30 g metFORMIN (GLUCOPHAGE) tablet 500 mg 500 mg, Oral, 2 times daily with meals, First dose on Thu09/16/17 at 1700, Until Discontinued Given 09/22/2017 8:13 AM CDT 500 mg Given 09/21/2017 5:31 PM CDT 500 mg Given 09/21/2017 7:50 AM CDT 500 mg metFORMIN (GLUCOPHAGE) tablet 500 mg 500 mg, Oral, 2 times daily with meals, First dose (after last modification) on Thu09/25/17 at 0800, Until Discontinued Given 10/10/2017 9:07 AM CDT 500 mg Given 10/09/2017 5:37 PM CDT 500 mg Given 10/09/2017 8:18 AM CDT 500 mg metFORMIN (GLUCOPHAGE) tablet 750 mg 750 mg, Oral, 2 times daily with meals, First dose (after last modification) on Thu09/23/17 at 0800, Until Discontinued Given 09/24/2017 5:26 PM CDT 750 mg Given 09/24/2017 8:59 AM CDT 750 mg Given 09/23/2017 5:31 PM CDT 750 mg miconazole (MICOTIN) 2 % cream Topical, 2 times daily (2 times per day), First dose on Thu10/01/17 at 2100, Until Discontinued, Apply to skin folds with rash Given 10/10/2017 9:08 AM CDT Given 10/09/2017 9:00 PM CDT Given 10/09/2017 8:19 AM CDT senna (SENOKOT) tablet 8.6 mg 8.6 mg, Oral, Nightly, First dose on Thu09/25/17 at 2100, Until Discontinued Given 10/09/2017 9:50 PM CDT 8.6 mg Given 10/08/2017 8:26 PM CDT 8.6 mg Given 10/07/2017 8:04 PM CDT 8.6 mg documented in this encounter Active and Recently Administered Medications Times are shown in CDT. Scheduled Medication Order 10/08/2017 10/09/2017 10/10/2017 aspirin EC tablet 81 mg 81 mg, Oral, Daily, First dose on Thu09/16/17 at 0900, Until Discontinued 819 (Given - Provider: Berta Youngblood RN) 08 (Given - Provider: Pati Dean LPN) 0907 (Given - Provider: Rona Cruz, LUTHER) atorvastatin (LIPITOR) tablet 40 mg 40 mg, Oral, Nightly, First dose on Thu09/15/17 at 2100, Until Discontinued 2024 (Given - Provider: Madina Kirkpatrick RN) 2148 (Given - Provider: Amy Juarez RN) glimepiride (AMARYL) tablet 4 mg 4 mg, Oral, Daily with breakfast, First dose on Thu09/18/17 at 0800, Until Discontinued 820 (Given - Provider: Berta Youngblood RN) 0817 (Given - Provider: Pati Dean LPN) 0907 (Given - Provider: Rona Cruz, LUTHER) griseofulvin (JOSELITO-PEG) tablet 250 mg 250 mg, Oral, 2 times daily after meals, 34 doses, First dose (after last modification) on Thu09/30/17 at 1800, Last dose on Thu10/17/17 at 0900, Please continue the treatment for 3 weeks in total. - note written 6/20. PT Patrick Reed, Reason for Therapy: Fungal Infection Documented, Type of Therapy: New Therapy, Indication: Other, Specify: dermatophytosis 0821 (Given - Provider: Berta Youngblood RN)1717 (Given - Provider: Berta Youngblood RN) 0818 (Given - Provider: Pati Dean LPN)1737 (Given - Provider: Pati Dean LPN) 0908 (Given - Provider: Rona Cruz RN) metFORMIN (GLUCOPHAGE) tablet 500 mg 500 mg, Oral, 2 times daily with meals, First dose (after last modification) on Thu09/25/17 at 0800, Until Discontinued 0821 (Given - Provider: Berta Youngblood RN)1649 (Given - Provider: Berta Youngblood RN) 0818 (Given - Provider: Pati Dean LPN)1737 (Given - Provider: Pati Dean LPN) 0907 (Given - Provider: Rona Cruz RN) miconazole (MICOTIN) 2 % cream Topical, 2 times daily (2 times per day), First dose on Thu10/01/17 at 2100, Until Discontinued, Apply to skin folds with rash 1210 (Given - Provider: Berta Youngblood RN)202 (Given - Provider: Madina Kirkpatrick RN) 0819 (Given - Provider: Pati Dean LPN)2100 (Given - Provider: Amy Juarez RN) 0908 (Given - Provider: Rona Cruz, LUTHER) senna (SENOKOT) tablet 8.6 mg 8.6 mg, Oral, Nightly, First dose on Thu09/25/17 at 2100, Until Discontinued 2025 (Given - Provider: Madina Kirkpatrick, LUTHER) 2150 (Given - Provider: Amy Juarez RN) PRN Medication Order 10/08/2017 10/09/2017 10/10/2017 dextrose (GLUTOSE) 40 % oral gel 15 g 15 g, Oral, As needed, Starting on Thu09/15/17 at 1936, Until 10/10/17 at 1337, blood sugar < 70 mg/dL, If patient is alert and taking food/drink PO or per tube: a. Give patient ONE of the following: i. 4 ounces (1/2 cup) apple juice or non-diet carbonated beverage ii. 15 grams of glucose tablets or glucose gel b. Repeat finger stick every 15 minutes and treat as above if blood glucose remains less than 70 mg/dl. c. blood glucose remains less than 70 mg/dl after two treatments or meal time is more than one hour away, give patient ONE of the following. i. 8 ounces (1 cup) of milk ii. One serving of fruit and protein (i.e. juice, cheese, etc.) iii. One serving of bread and protein (i.e. peanut butter and crackers) d. Call physician to notify with patient response prior to administering any further insulin or oral hypoglycemia agents. dextrose 5 % and sodium chloride 0.45 % infusion 50 mL/hr, Intravenous, As needed, Starting on e 09/15/17 at 1936, Until 10/10/17 at 1337, For hypoglycemia dextrose 50 % solution 25 g 25 g, Intravenous, at 1,000 mL/hr, Administer over 3 Minutes, As needed, Starting on 09/15/17 at 1936, Until 10/10/17 at 1337, blood sugar < 70 mg/dL, If patient is not-alert or NPO and has IV access a. Give patient 50 ml of Dextrose 50% IV push over 3 minutes. b. Start IV D5-0.45% saline at 50 ml/hr. c. Call physician to notify with patient response prior to administering any further insulin or oral hypoglycemia agents. glucagon (human recombinant) injection 1 mg 1 mg, Intramuscular, As needed, Starting on Thu09/15/17 at 1936, Until 10/10/17 at 1337, blood sugar < 70 mg/dL, if no IV access, If patient is not-alert or NPO and has no IV access a. Give Glucagon 1 mg IM x 1 dose (give immediately do not wait for IV access). b. Place IV and start IV D5-0.45% saline at 50 ml/hr when IV can be started. c. Call physician to notify with patient response to treatment. lactulose (CHRONULAC) 10 GM/15ML solution 30 g 30 g, Oral, Daily PRN, Starting on 09/23/17 at 1152, Until 10/10/17 at 1337, constipation documented in this encounter
--- OUTSIDE RECORDS SUMMARY | 2024-04-09 05:13 | XMS_ITS | Clinical Summary ---
Author Organization [facility] Address [address] [place] [address] Care Team Providers Care Websphere Architect Name Role Phone Unavailable Primary Care Provider Unavailabl e Source Comments [facility],non-owned Affiliates and Associated Physician Practices is amultiple site organization consisting of ambulatory clinics and hospital sitesin [place], [place], [place] and [place]. This disclosure is being madepursuant to the Care Everywhere program and may not contain all information available regarding this patient. Last updated 18.[facility] Allergies No known active allergies Medications * [...] Mass Index 45.01 10/24/2022 4:34 AM CDT Plan of Treatment Health Maintenance Due Date Last Done Comments COLOGUARD (AGES 45-75) - COLON CA SCREENING 1959 COLON MONITORING 1959 COLONOSCOPY - COLON CA SCREENING 1959 CT COLONOGRAPHY - COLON CA SCREENING 1959 Colorectal Cancer Screening 1959 FIT - COLON CA SCREENING 1959 FLEX SIG - COLON CA SCREENING 1959 MAMMOGRAM 1959 PAP SMEAR 1959 HIV SCREENING 07/06/1974 HEPATITIS C SCREENING 07/02/1977 Respiratory Syncytial Virus (RSV) Vaccine Pt: or over 60 yrs (1 - Risk 60-74 years 1-dose series) 2019 DIABETES - URINE PROTEIN SCREENING 10/23/2022 DIABETES RETINOPATHY SCREENING 10/23/2022 DIABETES-FOOT EXAM WITH MONOFILAMENT 10/23/2022 ZOSTER VACCINE (2 of 2) 12/23/2022 10/28/2022 DIABETES-HGB A1C 01/23/2023 10/23/2022, 09/13/2017 DEPRESSION SCREENING 04/13/2023 10/28/2022 DIABETES-SERUM CREATININE 10/25/20232022, 10/23/2022, 10/22/2022, Additional history exists COVID-19 VACCINE ( - season) 2023 INFLUENZA VACCINE (#1) 2023 DTAP/TDAP/TD VACCINES (2 - Td or Tdap) 10/28/2032 10/28/2022 PNEUMOCOCCAL VACCINE Completed 10/28/2022 HEPATITIS B VACCINE Aged Out No longe r eligible based on patient's age to complete this topic HIB VACCINE Aged Out No longer eligi ble based on patient's age to complete this topic HPV VACCINE Aged Out No longer eligi ble based on patient's age to complete this topic MENINGOCOCCAL VACCINE Aged Out No orly cecile eligible based on patient's age to complete this topic Procedures Procedure Name Priority Date/Time Associated Diagnosis Comments BASIC METABOLIC PANEL (CALCIUM TOTAL) Routine 10/24/2022 1:48 AM CDT HEMOGLOBIN A1C FILOMENA 10/23/2022 9:14 AM CDT from Last 3 Months or Most Recently Relevant to Health Maintenance Results * (ABNORMAL) BASIC METABOLIC PANEL (CALCIUM TOTAL) (10/24/2022 1:48 AM CDT) BUN 15 7 - 26 mg/dL 10/24/2022 3:36 AM CDT [facility] Creatinine 1.23(H) 0.56 - 0.96 mg/dL 10/24/2022 3:36 AM CDT [facility] Sodium 141 136 - 145 mmol/L 10/24/2022 3:36 AM CDT [facility] Potassium 4.8(H) 3.5 - 4.5 mmol/L 10/24/2022 3:36 AM CDT [facility] Chloride 104 98 - 107 mmol/L 10/24/2022 3:36 AM [facility] CO2 27 22 - 29 mmol/L 10/24/2022 3:36 AM [facility] Glucose 227(H) 70 - 115 mg/dL 10/24/2022 3:36 AM [facility] Calcium 9.8 8.4 - 10.2 mg/dL 10/24/2022 3:36 AM [facility] Anion Gap 15 8 - 18 10/24/2022 3:36 AM [facility] BUN/Creatinine Ratio 12 7 - 23 10/24/2022 3:36 AM [facility] Osmolality Calculated 300 270 - 300 mOsm/kg 10/24/2022 3:36 AM [facility] eGFR by CKD-EPI 49(L) >=90 mL/min/1.7 3 m2 10/24/2022 3:36 AM [facility] Blood BLOOD SPECIMEN / Unknown Lab Venipuncture / Unknown 10/24/2022 1:48 AM CDT 10/24/2022 3:17 AM CDT Jairo Nunez MD LAB - CHEMISTRY MYLA [facility] Organization Address City/State/ZIP Co de Phone Number [facility] [address] [place] [address], [facility] [phone] * (ABNORMAL) HEMOGLOBIN A1C (10/23/2022 9:14 AM CDT) Hemoglobin A1c 13.8(H) <=5.6 % 10/23/2022 1:53 PM [facility] Estimated Average Glucose 349 mg/dL 10/23/2022 1:53 PM [facility] Comment: HbA1c Interpretation: Normal : < 5.7% Pre-diabetes: 5.7-6.4% Diabetes: Equal to or greater than 6.5% Test results diagnostic of diabetes should be repeated for confirmation. Treatment target values recommended by ADA and other clinical organizations should be used to evaluate metabolic control in patients. Reference: [place] [employer], Standards of Care in Diabetes -2020 In patients 70 years and older consider HbA1c target range of 7.0-7.5% (Reference: Damico A, et al. HERIDA. 2012) The Sebia assay for the measurement of HbA1c is a National Glycohemoglobin Standardization Program (NGSP) certified method. Blood BLOOD SPECIMEN / Unknown Venipuncture / Unknown 10/23/2022 9:14 AM CDT 10/23/2022 9:27 AM CDT Shiva Nayak MD LAB - CHEMISTRY MYLA [facility] Organization Address City/State/[facility] Co de Phone Number [facility] [address] [place] [address], [facility] [phone] from Last 3 Months or Most Recently [...]
--- OUTSIDE RECORDS SUMMARY | 2024-04-09 05:14 | XMS_ITS | Encounter Summary ---
Author Organization [facility] Address [address] [place] [address] Care Team Providers Care Assisted Sales Representative Name Role Phone Unavailable Primary Care Provider Unavailabl e Encounter Details Date Type Department Care Team (Latest Contact Info) Description 12/01/2022 Travel Social History Tobacco Use Types Packs/Day Years Used Date Smoking Tobacco: Every Day Cigarettes 0.5 45 Started: 1979 Smokeless Tobacco: Never Comments:Smokes some days Alcohol Use Standard Drinks/Week Comments No 0 (1 standard drink = 0.6 oz pur e alcohol) PHQ-2 Answer Date Recorded PHQ2 TOTAL SCORE 1 10/28/2022 Sex and Gender Information Value Date Recorded Sex Assigned at Not on file Gender Identity Not on file Sexual Orientation Not on file documented as of this encounter Functional Status Functional Status Response Date of [...] person have difficulty concentrating/remembering/making decisions? Yes 10/24/2022 documented as of this encounter Plan of Treatment Not on file documented as of this encounter Visit Diagnoses Not on filedocumented in this encounter
--- OUTSIDE RECORDS SUMMARY | 2024-04-09 05:14 | XMS_ITS | Encounter Summary ---
Author Organization [facility] Address [address] [place] [address] Care Team Providers Care Business Process Engineer Name Role Phone Unavailable Primary Care Provider Unavailabl e Reason for Visit * Reason Comments Hospital Discharge Encounter Details Date Type Department Care Team (Late st Contact Info) Description 10/28/2022 2:30 PM CDT Office Visit Transitional Care at [address] [id number] Unknown, Provider Hospital discharge follow-up (Primary Dx); Cerebrovascular accident (CVA), unspecified mechanism (HCC); Type 2 diabetes mellitus with other specified complication, with long-term current use of insulin (HCC); Tobacco abuse; Need for vaccination; Need for prophylactic vaccination with combined bjqdmxsmxi-afdtozz-xw rtussis (DTP) vaccine; Cellulitis, unspecified cellulitis site Social History Tobacco Use Types Packs/Day Years [...] CDT Inhaled Oxygen Concentration - - Weight - - Height 172.7 cm (5' 8 ) 10/28/2022 2:02 PM CDT Body Mass Index - - documented in this encounter Functional Status Functional Status Response [...] Yes 10/24/2022 documented as of this encounter Patient Instructions * Patient Instructions* Hyacinth Andrade PharmD - 10/28/2022 2:25 PM CDT Vaccinations Recommended: Below vaccines that are recommended based on your age and medical conditions. Please stop by your local pharmacy or ask your physician about these vaccines. COVID-19 (Pfizer or Moderna): 1 doses of Pfizer or Moderna COVID bivalent is recommended for primary series For those over the age of 65, 1 booster dose is recommended 4 months after the first shot. Moderately to severely immunocompromised patients who have received a single dose of bivalent vaccine are authorized to receive an additional bivalent dose at least two months after their initial bivalent dose. Additionally, these individuals may continue to receive additional bivalent doses at intervals determined by their healthcare provider. Shingles Shot (Shingrix): For those over the age of 50, a 2-dose series should be given 2-6 months apart regardless of previous shingles outbreak or previously received older formulation of vaccine (Zostavax) Today you were given: Shingrix (shingles), Boostrix (tetanus), Prevnar 20 (pneumonia) documented in this encounter Progress Notes * Hyacinth Andrade, DaneD - 10/28/2022 2:58 PM CDT [facility] Medication Reconciliation Note: Clarified outpatient medications with patient using memory. Medication Concerns/Issues: Other issues/concerns: Pt had recently seen PCP, who had sent her medications to a mail order pharmacy. Therefore, she did not have her Augmentin, aspirin, atorvastatin and Lantus. Pt had only been using clotrimazole and cinnamon tablets to help control infection and blood glucose. Pt states that the medications are being mailed to her now, but does not know when she will receive them. Pt's glucose has been running 300-400 at home. Discussed with nurse practitioner about prescribing an oral medication to help control blood sugar until they receive insulin Current Updated Home Medications: Current Outpatient Medications Medication Sig amoxicillin-clavulanate (Augmentin) 875-125 MG tablet Take 1 (one) tablet by mouth 2 times daily with morning and evening meal (Patient not taking: Reported on 10/28/2022) aspirin (Aspirin) 81 MG chew tablet Take 1 (one) tablet by mouth once daily atorvastatin (Lipitor) 40 MG tablet Take 1 (one) tablet by mouth at bedtime (Patient not taking: Reported on 10/28/2022) Cinnamon 500 MG clotrimazole (LOTRIMIN AF) 1 % cream Apply to affected area 2 times daily insulin glargine (Lantus/Semglee) 100 units/mL pen Inject 10 (ten) Units subcutaneously at bedtime metFORMIN (Glucophage) 500 MG tablet Take one tablet by mouth once daily for 3 days, then increase to one tablet twice daily No current facility-administered medications for this visit. Medication List Updates and Changes Made: added Augmentin and Lantus Med Rec was Completed by: Hyacinth Andrade PharmD 10/28/22 2:48 PM [facility] Vaccination Note: Maria Long is a 62 year old female who was screened for vaccination needs. The patient was provided education regarding need for: COVID bivalent (Pfizer/Moderna), Prevnar-20, Tetanus (Tdap), and Shingles vaccine (Shingrix) vaccine(s). Patient was given Prevnar-20, Tetanus (Tdap), and Shingles vaccine (Shingrix) vaccine(s). Patient experienced no signs or symptoms of adverse reaction after completing the 15-minute observation period. Vaccines given by Isabel Took PharmD * Arnulfo Hinton, SANTIAGO-TEACHER EMOTIONALLY IMPAIRED - 10/28/2022 2:30 PM CDT Ambulatory Discharge Clinic Note Date of Service: 10/28/2022 CC: discharge follow-up Assessment and Plan: - Hospital discharge follow-up - discussed all past and present medical history, social history, family history, and medications with pt during today's visit - f/u with pcp- saw pcp 10/27, and going back on Thursday- 10/31, neurology 11/28 # CVA - h/o stroke in the past as well- no residual CTA was negative for LVO. MRI confirmed right basal ganglia lacunar infarct, and an old, prior occipital lobe infarct - KATH as outpt - on statin, asa - reports no neuro deficient - already saw her pcp and neuro karon set # dm type2- uncontrolled -supposed to be on 10 units of lantus, insulin ss with meals - her pcp left- so she quit taking all of her meds for diabetes-her family was giving her cinnamon pills to help with - this morning it was 300- thanks for cinnamon pills since it was in 400's - all of her meds should be deloivered - was taking metformin at some point- out of it now- wants to restart but unable to get it filled now- until pt is checked out to ensure she is not in DKA/HHS - discussed the need not to skip med/insulin - education provided about Not stopping meds on her own Of note: accucheck is >493 in the office. Advised to go to ER for eval for DKA/HHS # tobacco abuse - actively trying to quit smoking - down to just few puffs here and there - encouraged to quit # cellulitis to lt forearm - was prescribed Augmentin for cellulitis - pt has not started taking it- waiting for meds to be delivered Complexity of Medical Decision-Making: high Subjective: Maria Long is an 62 year old female who presents for follow up after recent hospital admission for lt sided arm. Pt was seen by her PCP yesterday, all medications were reordered. Patient's medical problems include: Patient Active Problem List: Cerebrovascular accident (CVA) due to occlusion of cerebral artery (CMS/HCC) Left arm weakness Cerebrovascular accident (CVA), unspecified mechanism (CMS/HCC) Facial droop due to acute stroke (CMS/HCC) Diabetes (CMS/HCC) Date of Initial Inpatient Discharge: 10/24 Date of Successful Post-Discharge Communication with Patient: 10/27 Date(s) of Unsuccessful Post-Discharge Communication with Patient (Document at least 2 attempts): na Date of Ucfv-pn-Fwlt Visit: 10/28/2022 Previous Report(s) Reviewed: Hospital discharge summary Brief hospital course: Retrieved from hospital discharge summary Hospital Course: Maria Long??is a 62 year old??female??who has a PMH of DMT2 and an old stroke with no residual deficits who presented as a code stroke for new onset left sided arm weakness, left facial droop. On arrival her NIHSS was 6. CTH was obtained which showed a subacute appearing small hypodensity of the basal ganglia, internal capsule and of the right medial occipital lobe. CTA was negative for LVO. MRI confirmed right basal ganglia lacunar infarct, and an old, prior occipital lobe infarct. Surface echo was obtained and was unremarkable. She was discharged, to follow up [facility], and well as to obtain a KATH as an outpatient. Today's visit was focused on the following issues: Med list, vaccination, diabetic management, diabetic diet Past Medical/Surgical/Family/History History: Reviewed and updated in [facility] History tab Medication Reconciliation:Reviewed and updated in [facility] Medications tab Current Outpatient Medications Medication Sig Dispense Refill ??? amoxicillin-clavulanate (Augmentin) 875-125 MG tablet Take 1 (one) tablet by mouth 2 times daily with morning and evening meal (Patient not taking: Reported on 10/28/2022) ??? aspirin (Aspirin) 81 MG chew tablet Take 1 (one) tablet by mouth once daily 30 tablet 3 ??? atorvastatin (Lipitor) 40 MG tablet Take 1 (one) tablet by mouth at bedtime (Patient not taking: Reported on 10/28/2022) 30 tablet 3 ??? Cinnamon 500 MG ??? clotrimazole (LOTRIMIN AF) 1 % cream Apply to affected area 2 times daily ??? insulin glargine (Lantus SoloStar) pen Inject subcutaneously at bedtime (Patient not taking: Reported on 10/28/2022) ??? metFORMIN (Glucophage) 500 MG tablet Take one tablet by mouth once daily for 3 days, then increase to one tablet twice daily 180 tablet 0 No current facility-administered medications for this visit. I reconciled the patient's medications during this visit and the above list is accurate. Allergies: Reviewed and updated in Epic Allergies Tab Review of systems: Review of Systems HENT: Negative. Eyes: Negative. Respiratory: Negative. Cardiovascular: Negative. Gastrointestinal: Negative. Genitourinary: Negative. Musculoskeletal: Generalized weakness Neurological: Negative. Psychiatric/Behavioral: Negative. Objective: Physical Exam: BP 127/74 (BP SITE: RIGHT ARM, BP POSITION: SITTING) Pulse 88 Temp 97.8 ??F (36.6 ??C) (Temporal) Resp 16 Ht 1.727 m (5' 8 ) SpO2 97% ; Body mass index is 45.01 kg/m??. Physical Exam Vitals reviewed. Cardiovascular: Rate and Rhythm: Normal rate and regular rhythm. Pulmonary: Effort: Pulmonary effort is normal. Breath sounds: Normal breath sounds. Abdominal: General: Bowel sounds are normal. Palpations: Abdomen is soft. Skin: General: Skin is warm and dry. Neurological: General: No focal deficit present. Mental Status: She is alert and oriented to person, place, and time. Psychiatric: Mood and Affect: Mood normal. Lab Preference: [address] [id number] GUILHERME Iverson 10/28/2022 documented in this encounter Miscellaneous Notes * Addendum Note - Arnulfo Hinton APRN-CNP - 10/28/2022 3:12 PM CDTAddended by: ARNULFO HINTON on: 10/28/2022 03:12 PM Modules accepted: Orders documented in this encounter Plan of Treatment Not on file documented as of this encounter Procedures Procedure Name Priority Date/Time Associated Diagnosis Comments GLUCOSE - POINT OF CARE Routine 10/28/2022 2:39 PM CDT Type 2 diabetes mellitus with other specified complication, with long-term current use of insulin (HCC) documented in this encounter Results * (ABNORMAL) GLUCOSE - POINT OF CARE (10/28/2022 2:39 PM CDT) Glucose WB/POC 493(HH) 70 - 115 mg/dL 10/28/2022 2:40 PM CDT [facility] Specimen Type Cap Fingerstick 2022 2:40 PM CDT [facility] Blood BLOOD SPECIMEN / Unknown 10/28/2022 2:39 PM CDT 10/28/2022 2:40 PM CDT Arnulfo Hinton PAYER SPECIALIST-TEACHER EMOTIONALLY IMPAIRED LAB - POINT OF CA RE ORDERABLES [facility] [address] [address], [facility] [phone] documented in this encounter Visit Diagnoses Diagnosis Hospital discharge follow-up- Primary Other follow-up examination Cerebrovascular accident (CVA), unspecified mechanism (HCC) Type 2 diabetes mellitus with other specified complication, with long-term current use of insulin (HCC) Tobacco abuse Tobacco use disorder Need for vaccination Need for prophylactic vaccination and inoculation against unspecified single disease Need for prophylactic vaccination with combined fynpslgqzt-kncfyne-sbymmrirc (DTP) vaccine Cellulitis, unspecified cellulitis site documented in this encounter
--- OUTSIDE RECORDS SUMMARY | 2024-04-09 05:14 | XMS_ITS | Patient Health Summary ---
Author Organization [facility] Address [address] [place] [address] Care Team Providers Care Senior Applications Analyst Name Role Phone Unavailable Primary Care Provider Unavailabl e Note from [facility],non-owned Affiliates and Associated Physician Practices is amultiple site organization consisting of ambulatory clinics and hospital sitesin [place], [place], [place] and [place]. This disclosure is being madepursuant to the Care Everywhere program and may not contain all information available regarding this patient. Last updated 18.[facility] Game Closure Allergies No known active allergies Medications * Be aware that medications may not be up to date on this document. Alwaysverify current medications with the patient. * clotrimazole (LOTRIMIN AF) 1 % cream(Started 09/15/2017) Apply to affected area 2 times daily * aspirin (Aspirin) 81 MG chew tablet(Started 10/25/2022) Take 1 (one) tablet by mouth once daily 3 refills by 10/24/2023 * atorvastatin (Lipitor) 40 MG tablet(Started 10/24/2022) Take 1 (one) tablet by mouth at bedtime 3 refills by 10/24/2023 * amoxicillin-clavulanate (Augmentin) 875-125 MG tablet Take 1 (one) tablet by mouth 2 times daily with morning and evening meal * Cinnamon 500 MG * insulin glargine (Lantus/Semglee) 100 units/mL pen Inject 10 (ten) Units subcutaneously at bedtime Active Problems Problem Noted Date Diagnosed Date Diabetes 10/23/2022 Left arm weakness 10/22/2022 Cerebrovascular accident (CVA), unspecified mech anism 10/22/2022 Facial droop due to acute stroke 10/22/2022 Cerebrovascular accident (CV A) due to occlusion of cerebral artery 09/12/2017 Immunizations * PNEUMOCOCCAL PCV20 CONJ VAC IM(Given 10/28/2022) * TDAP (7yrs+)(Given 10/28/2022) * Zoster Hzv Vacc Recombinant Inj Im(Given 10/28/2022) Social History Tobacco Use Types Packs/Day Years [...] Mass Index 45.01 10/24/2022 4:34 AM CDT Procedures * GLUCOSE - POINT OF CARE(Performed 10/28/2022) Performed for Type 2 diabetes mellitus with other specified complication, with long-term current use of insulin (HCC) * GLUCOSE - POINT OF CARE(Performed 10/24/2022) * CARDIAC EKG ORDER(Performed 10/24/2022) * GLUCOSE - POINT OF CARE(Performed 10/24/2022) * ECHO COMPLETE W BUBBLE STUDY(Performed 10/24/2022) Performed for Cerebrovascular accident (CVA), unspecified mechanism (HCC), Left arm weakness, Facial droop due to acute stroke (HCC) * GLUCOSE - POINT OF CARE(Performed 10/24/2022) * CBC W/O DIFFERENTIAL(Performed 10/24/2022) * BASIC METABOLIC PANEL (CALCIUM TOTAL)(Performed 10/24/2022) * GLUCOSE - POINT OF CARE(Performed 10/23/2022) * GLUCOSE - POINT OF CARE(Performed 10/23/2022) * GLUCOSE - POINT OF CARE(Performed 10/23/2022) * HEMOGLOBIN A1C(Performed 10/23/2022) * MRI BRAIN WO CONTRAST(Performed 10/23/2022) Performed for Cerebrovascular accident (CVA), unspecified mechanism (HCC), Left arm weakness, Facial droop due to acute stroke (HCC) * GLUCOSE - POINT OF CARE(Performed 10/23/2022) * XR ABDOMEN KUB PORTABLE(Performed 10/23/2022) Performed for Left arm weakness * XR CHEST 1VW PORTABLE(Performed 10/23/2022) Performed for Left arm weakness * EKG 12-LEAD(Performed 10/23/2022) Performed for Cerebrovascular accident (CVA), unspecified mechanism (HCC) * BLOOD TYPE VERIFICATION(Performed 10/23/2022) * TROPONIN-I HIGH SENSITIVE REFLEX 1HOUR(Performed 10/23/2022) * LIPID PROFILE(Performed 10/23/2022) * CBC W/O DIFFERENTIAL(Performed 10/23/2022) * BASIC METABOLIC PANEL (CALCIUM TOTAL)(Performed 10/23/2022) * TROPONIN-I HIGH SENSITIVE BASELINE + 1HR(Performed 10/23/2022) * GLUCOSE - POINT OF CARE(Performed 10/22/2022) * CT ANGIO BRAIN NECK STROKE(Performed 10/22/2022) Performed for Cerebrovascular accident (CVA), unspecified mechanism (HCC) * CT BRAIN STROKE(Performed 10/22/2022) Performed for Cerebrovascular accident (CVA), unspecified mechanism (HCC) * TYPE + SCREEN PANEL(Performed 10/22/2022) * PT-INR [facility](Performed 10/22/2022) * COMPREHENSIVE METABOLIC PANEL(Performed 10/22/2022) * CBC W AUTO DIFFERENTIAL(Performed 10/22/2022) * CREATININE - POCT INTERFACED(Performed 10/22/2022) * INR WHOLE BLOOD - POINT OF CARE (IP) STROKE(Performed 10/22/2022) * BASIC METABOLIC PANEL (CALCIUM TOTAL)(Performed 09/21/2017) * CBC W/O DIFFERENTIAL(Performed 09/21/2017) * BASIC METABOLIC PANEL (CALCIUM TOTAL)(Performed 09/18/2017) * CBC W/O DIFFERENTIAL(Performed 09/18/2017) * GLUCOSE - POINT OF CARE(Performed 09/15/2017) * GLUCOSE - POINT OF CARE(Performed 09/15/2017) * GLUCOSE - POINT OF CARE(Performed 09/15/2017) * GLUCOSE - POINT OF CARE(Performed 09/15/2017) * PHOSPHORUS BLOOD(Performed 09/15/2017) * CBC W/O DIFFERENTIAL(Performed 09/15/2017) * COMPREHENSIVE METABOLIC PANEL(Performed 09/15/2017) * GLUCOSE - POINT OF CARE(Performed 09/15/2017) * GLUCOSE - POINT OF CARE(Performed 09/14/2017) * GLUCOSE - POINT OF CARE(Performed 09/14/2017) * ECHO COMPLETE(Performed 09/14/2017) Performed for Cerebrovascular accident (CVA) due to embolism of cerebral artery (HCC) * GLUCOSE - POINT OF CARE(Performed 09/14/2017) * GLUCOSE - POINT OF CARE(Performed 09/14/2017) * PHOSPHORUS BLOOD(Performed 09/14/2017) * CBC W/O DIFFERENTIAL(Performed 09/14/2017) * COMPREHENSIVE METABOLIC PANEL(Performed 09/14/2017) * GLUCOSE - POINT OF CARE(Performed 09/14/2017) * GLUCOSE - POINT OF CARE(Performed 09/13/2017) * GLUCOSE - POINT OF CARE(Performed 09/13/2017) * GLUCOSE - POINT OF CARE(Performed 09/13/2017) * GLUCOSE - POINT OF CARE(Performed 09/13/2017) * GLUCOSE - POINT OF CARE(Performed 09/13/2017) * CARDIAC EKG ORDER(Performed 09/13/2017) * CARDIAC EKG ORDER(Performed 09/13/2017) * GLUCOSE - POINT OF CARE(Performed 09/13/2017) * GLUCOSE - POINT OF CARE(Performed 09/13/2017) * HEMOGLOBIN A1C(Performed 09/13/2017) * PHOSPHORUS BLOOD(Performed 09/13/2017) * CBC W/O DIFFERENTIAL(Performed 09/13/2017) * COMPREHENSIVE METABOLIC PANEL(Performed 09/13/2017) * GLUCOSE - POINT OF CARE(Performed 09/13/2017) * GLUCOSE - POINT OF CARE(Performed 09/12/2017) * GLUCOSE - POINT OF CARE(Performed 09/12/2017) * MRI BRAIN WO CONTRAST(Performed 09/12/2017) Performed for Weakness * GLUCOSE - POINT OF CARE(Performed 09/12/2017) * GLUCOSE - POINT OF CARE(Performed 09/12/2017) * GLUCOSE - POINT OF CARE(Performed 09/12/2017) * GLUCOSE - POINT OF CARE(Performed 09/12/2017) * URINALYSIS W/MICROSCOPIC NO CULTURE(Performed 09/12/2017) * URINE DRUG SCREEN IMMUNOASSAY(Performed 09/12/2017) * CULTURE URINE(Performed 09/12/2017) * TROPONIN I(Performed 09/12/2017) * LIPID PROFILE(Performed 09/12/2017) * PULSE OXIMETRY, SPOT(Performed 09/12/2017) * PULSE OXIMETRY, SPOT(Performed 09/12/2017) * PULSE OXIMETRY, SPOT(Performed 09/12/2017) * PULSE OXIMETRY, SPOT(Performed 09/12/2017) * PULSE OXIMETRY, SPOT(Performed 09/12/2017) * PULSE OXIMETRY, SPOT(Performed 09/12/2017) * B-TYPE NATRIURETIC PEPTIDE(Performed 09/12/2017) * PTT [facility](Performed 09/12/2017) * PT-INR [facility](Performed 09/12/2017) * XR CHEST 1VW PORTABLE(Performed 09/12/2017) Performed for Weakness * EKG 12-LEAD(Performed 09/12/2017) Performed for Weakness * TROPONIN I(Performed 09/12/2017) * BLOOD GASES ALLYSON(Performed 09/12/2017) * HYDROXYBUTYRATE BETA(Performed 09/12/2017) * PHOSPHORUS BLOOD(Performed 09/12/2017) * MAGNESIUM BLOOD(Performed 09/12/2017) * ALCOHOL ETHYL BLOOD(Performed 09/12/2017) * CBC W AUTO DIFFERENTIAL(Performed 09/12/2017) * COMPREHENSIVE METABOLIC PANEL(Performed 09/12/2017) * CT CEREBRAL PERFUSION ANALYSIS(Performed 09/12/2017) Performed for Weakness * CT ANGIO BRAIN AND NECK(Performed 09/12/2017) Performed for Weakness * CT HEAD WO CONTRAST(Performed 09/12/2017) Performed for Weakness * CREATININE BLOOD - POCT (IP) [facility](Performed 09/12/2017) Performed for Weakness * GLUCOSE - POINT OF CARE(Performed 09/12/2017) Results * (ABNORMAL) GLUCOSE - POINT OF CARE (10/28/2022 2:39 PM CDT) Only the most recent of34 resultswithin the time period is included. Glucose WB/POC 493(HH) 70 - 115 mg/dL 10/28/2022 2:40 PM CDT [facility] Specimen Type Cap Fingerstick 2022 2:40 PM CDT [facility] Blood BLOOD SPECIMEN / Unknown 10/28/2022 2:39 PM CDT 10/28/2022 2:40 PM CDT Marisel Jamaal PRODUCT TECHNICIAN-DEHYDRATION UNIT OPERATOR LAB - POINT OF CA RE ORDERABLES [address] [address], [place] [phone] * CARDIAC EKG ORDER (10/24/2022 3:32 PM CDT) Only the most recent of3 resultswithin the time period is included. Narrative 10/24/2022 3:32 PM CDT Ordered by an unspecified provider. Scanned Document CARDIAC SERVICES ORD ERABLES * ECHO COMPLETE W BUBBLE STUDY (10/24/2022 8:45 AM CDT) Pathologist [facility] BSA [id number] m2 SSM CV FUJ I PACS LV biplane EF 59 54 - 74 % SSM CV FUJI PACS LV A2C EF 55 52 - 76 % SSM CV FUJ I PACS LV A4C EF 61 46 - 78 % SSM CV FUJ I PACS LV stroke vol 2D teich 74.182 ml SSM CV FUJI PACS LV stroke vol index A4C MOD 86.802 ml SSM CV FUJI PACS LVIDd 4.85 3.8 - 5.2 cm SSM CV FUJI PACS LVIDs 3.04 2.2 - 3.5 cm SSM CV FUJI PACS IVSd 2D 1.625 0.6 - 0.9 cm SSM CV FUJI PACS LVPWd 1.16 cm SSM CV FUJ I PACS Fractional Shortening 2D 37 28 - 44 % SSM CV FUJI PACS LV ESV BP 56.995 14 - 42 mL SSM CV FUJI PACS LV ESV index BP 21.9 8 - 24 mL/m2 SSM CV FUJI PACS LV ESV A2C 56.41 10 - 54 mL SSM CV FUJI PACS LV EDV BP 137.518 mL SSM CV FUJ I PACS LV ESV A4C 56.637 12 - 60 mL SSM CV FUJI PACS LV EDV index BP 52.7 29 - 61 mL/m2 SSM CV FUJI PACS LV EDV A2C 126.758 41 - 133 mL SSM CV FUJI PACS LV EDV A4C 143.212 mL SSM CV FU JI PACS LV ESV 2D 36.064 14 - 42 mL SSM CV FUJI PACS LV EDV 2D 110.246 46 - 106 mL SSM CV FUJI PACS LVOT diam 2.1 cm SSM CV FUJ I PACS LVOT area 3.46 cm2 SSM CV FUJ I PACS LV RWT 0.478 SSM CV FUJ I PACS LV White A2C 9.193 cm SSM CV F UJI PACS LV White A4C 8.787 cm SSM CV F UJI PACS IVS/LVPW 1.402 SSM CV FUJ I PACS MV E pk hellen 53.895 cm/s SSM CV F UJI PACS MV avg E/e' ratio 10.63 SS M CV FUJI PACS MV A pk hellen 72.7 cm/s SSM CV F UJI PACS MV E A ratio 0.74 SSM CV FUJI PACS MV E' lateral hellen 5.334 cm/s SS M CV FUJI PACS MV DT 349 ms SSM CV FUJ I PACS MV E' septal hellen 4.834 cm/s SSM CV FUJI PACS MV A duration 220 ms SSM CV FUJI PACS MV E/e' septal 11.149 SSM C V FUJI PACS MV E/e' lateral 10.103 SSM CV FUJI PACS P vein A hellen 23.9 cm/s SSM CV FUJI PACS P vein A duration 160 ms SS M CV FUJI PACS LA ESV A2C MOD Index 26 ml/m2 SSM CV FUJI PACS LA ESV A4C MOD Index 18 ml/m2 SSM CV FUJI PACS LA size 3.499 2.7 - 3.8 cm SSM CV FUJI PACS LA vol BP A-L 69.685 mL SSM CV FUJI PACS RV-white basal diam 3.2 2.5 - 4.1 cm SSM CV FUJI PACS RV-white longitudinal diam 7.9 5.9 - 8.3 cm SSM CV FUJI PACS RVIDd 3.2 cm SSM CV FUJ I PACS RVOT VTI 14.697 cm SSM CV FUJ I PACS TV S' hellen 10.54 SSM CV FUJ I PACS TAPSE 2.595 1.7 cm SSM CV FUJ I PACS RVOT pk hellen 0.63 m/s SSM CV F UJI PACS RA area 14.964 cm2 SSM CV FUJ I PACS AV mn grad 3 mmHg SSM CV FU JI PACS AV pk grad 7 mmHg SSM CV FU JI PACS AV pk hellen 1.28 m/s SSM CV FUJ I PACS AV VTI 27.955 cm SSM CV FUJ I PACS MV mn grad 1 mmHg SSM CV FU JI PACS MV pk grad 5 mmHg SSM CV FU JI PACS MV mn hellen 0.48 m/s SSM CV FUJ I PACS MV pk hellen 114.638 cm/s SSM CV FUJ I PACS MV VTI 26.773 cm SSM CV FUJ I PACS MV decel slope 154.562 cm/s2 SSM C V FUJI PACS RVOT mn grad 1 mmHg SSM CV FUJI PACS RVOT pk grad 2 mmHg SSM CV FUJI PACS PV mn grad 2 mmHg SSM CV FU JI PACS PV pk hellen 91.7 cm/s SSM CV FUJ I PACS PV pk grad 3 mmHg SSM CV FU JI PACS PV VTI 18.741 cm SSM CV FUJ I PACS PV mn hellen 58.281 cm/s SSM CV FUJ I PACS IVC size 1.6 cm SSM CV FUJ I PACS Max Age Predicted HR 157 SSM CV FUJI PACS Target HR 133 SSM CV FUJ I PACS [id number] 7.611 cm SSM CV FUJ I PACS [id number] 7.769 cm SSM CV FUJ I PACS LV stroke vol BP 80.523 ml/m2 SSM CV FUJI PACS LVIDs index 1.17 1.3 - 2.1 cm/m2 SSM CV FUJI PACS LV LVIDd index 1.86 2.3 - 3.1 cm/m2 SSM CV FUJI PACS Est RA pressure 3.0 mmHg SSM CV FUJI PACS Sinus of Valsalva 3.60 cm SS M CV FUJI PACS Ascending aorta 3.40 cm SSM CV FUJI PACS Anatomical Region Laterality Modality Ultrasound Narrative 10/24/2022 10:02 AM CDT ?Left??Ventricle: Left ventricle size is normal. Mildly increased wall thickness. Mildly increased ventricular mass. Findings consistent with concentric hypertrophy. Normal systolic function. EF by 2D Pearce biplane is 59%. Normal wall motion. Normal diastolic function. Normal mean left atrial pressure. ?Left??Atrium: No intracardiac shunt viewable with agitated saline. ?Mitral??Valve: Trace regurgitation. ?Aortic??Valve: Trace regurgitation. ?Tricuspid??Valve: Trace regurgitation. The pulmonary artery systolic pressure is normal (under 35 mmHg). ?IVC/SVC: IVC diameter is less than or equal to 21 mm and decreases greater than 50% during inspiration; therefore the estimated right atrial pressure is normal (~3 mmHg). ?Pericardium: No pericardial effusion. Left Ventricle Left ventricle size is normal. Mildly increased wall thickness. Mildly increased ventricular mass. Findings consistent with concentric hypertrophy. Normal systolic function. EF by 2D Pearce biplane is 59%. Normal wall motion. Normal diastolic function. Normal mean left atrial pressure. Right Ventricle Right ventricle size is normal. Normal systolic function. TAPSE is 2.595 cm. Left Atrium Left atrium size is normal. No intracardiac shunt viewable with agitated saline. Right Atrium Right atrium size is normal. IVC/SVC IVC diameter is less than or equal to 21 mm and decreases greater than 50% during inspiration; therefore the estimated right atrial pressure is normal (~3 mmHg). Mitral Valve Valve structure is normal. Trace regurgitation. No stenosis. Tricuspid Valve Valve structure is normal. Trace regurgitation. The pulmonary artery systolic pressure is normal (under 35 mmHg). No stenosis. Aortic Valve Valve structure is trileaflet. Trace regurgitation. No stenosis. Pulmonic Valve Valve structure is normal. No regurgitation. No stenosis. Ascending Aorta Normal sized sinus of Valsalva (aortic root) and ascending aorta. Sinus of Valsalva is 3.60 cm. Ascending Aorta is 3.40 cm. Pericardium No pericardial effusion. Study Details Study quality was adequate. A complete 2D, color Doppler, spectral Doppler and M-mode echocardiogram was performed. The apical, parasternal, subcostal and suprasternal views were obtained. Saline ultrasound enhancing agent used. Jairo Nunez MD ECHO CUPID * CBC W/O DIFFERENTIAL (10/24/2022 1:48 AM [facility]) Only the most recent of7 resultswithin the time period is included. WBC 8.4 3.5 - 10.5 10? 3 /uL 10/24/2022 3:04 AM [facility] RBC 4.38 3.80 - 5.20 10? 6 /uL 10/24/2022 3:04 AM [facility] Hemoglobin 13.1 12.0 - 15.6 g/dL 10/24/2022 3:04 AM [facility] Hematocrit 40.0 35.0 - 45.0 % 10/24/2022 3:04 AM [facility] MCV 91.3 80.7 - 98.3 fL 10/24/2022 3:04 AM [facility] MCH 29.9 26.7 - 34.0 pg 10/24/2022 3:04 AM [facility] MCHC 32.8 30.8 - 35.9 g/dL 10/24/2022 3:04 AM [facility] RDW-SD 39.7 36.0 - 50.0 fL 10/24/2022 3:04 AM [facility] RDW-CV 11.9 11.2 - 14.8 % 10/24/2022 3:04 AM [facility] Platelet Count 349 150 - 400 10? 3 /uL 10/24/2022 3:04 AM [facility] MPV 10.1 9.4 - 12.9 fL 10/24/2022 3:04 AM [facility] nRBC Absolute 0.00 0 10? 3 /uL 10/24/2022 3:04 AM [facility] nRBC Auto 0.0 0 /100 WBC 10/24/2022 3:04 AM [facility] Blood BLOOD SPECIMEN / Unknown Lab Venipuncture / Unknown 10/24/2022 1:48 AM CDT 10/24/2022 2:59 AM CDT Jairo Nunez MD LAB - HEMATOLOGY ORD ERABLES [facility] [address] [place] [address], [place] [phone] * (ABNORMAL) BASIC METABOLIC PANEL (CALCIUM TOTAL) (10/24/2022 1:48 AM CDT) Only the most recent of4 resultswithin the time period is included. BUN 15 7 - 26 mg/dL 10/24/2022 3:36 AM [facility] Creatinine 1.23(H) 0.56 - 0.96 mg/dL 10/24/2022 3:36 AM [facility] Sodium 141 136 - 145 mmol/L 10/24/2022 3:36 AM [facility] Potassium 4.8(H) 3.5 - 4.5 mmol/L 10/24/2022 3:36 AM [facility] Chloride 104 98 - 107 mmol/L 10/24/2022 3:36 AM [facility] CO2 27 22 - 29 mmol/L 10/24/2022 3:36 AM [facility] Glucose 227(H) 70 - 115 mg/dL 10/24/2022 3:36 AM [facility] Calcium 9.8 8.4 - 10.2 mg/dL 10/24/2022 3:36 AM [facility] Anion Gap 15 8 - 18 10/24/2022 3:36 AM [facility] BUN/Creatinine Ratio 12 7 - 23 10/24/2022 3:36 AM [facility] Osmolality Calculated 300 270 - 300 mOsm/kg 10/24/2022 3:36 AM [facility] eGFR by CKD-EPI 49(L) >=90 mL/min/1.7 3 m2 10/24/2022 3:36 AM CDT [facility] Blood BLOOD SPECIMEN / Unknown Lab Venipuncture / Unknown 10/24/2022 1:48 AM CDT 10/24/2022 3:17 AM CDT Jairo Nunez MD LAB - CHEMISTRY MYLA GOOD Performing Organization Address City/[facility]/ZIP Co de Phone Number [address] [address], [place] [phone] * (ABNORMAL) HEMOGLOBIN A1C (10/23/2022 9:14 AM CDT) Only the most recent of2 resultswithin the time period is included. Hemoglobin A1c 13.8(H) <=5.6 % 10/23/2022 1:53 PM CDT [facility] Estimated Average Glucose 349 mg/dL 10/23/2022 1:53 PM T [facility] Comment: HbA1c Interpretation: Normal : < 5.7% Pre-diabetes: 5.7-6.4% Diabetes: Equal to or greater than 6.5% Test results diagnostic of diabetes should be repeated for confirmation. Treatment target values recommended by ADA and other clinical organizations should be used to evaluate metabolic control in patients. Reference: [place] [employer], Standards of Care in Diabetes [...] Nayak MD LAB - CHEMISTRY MYLA GOOD Performing Organization Address City/[facility]/ZIP Co de Phone Number [facility] [address] [place] [id number], [place] [phone] * MRI BRAIN NON CONTRAST (10/23/2022 9:09 AM CDT) Only the most recent of2 resultswithin the time period is included. Anatomical Region Laterality Modality Head Magnetic Resonan ce 10/23/2022 9:09 AM CDT Impressions 10/23/2022 9:59 AM CDT IMPRESSION: 1.Small focus of restricted diffusion and T2 hyperintensity in the right periventricular white matter, compatible with small acute infarction. No evidence of hemorrhagic transformation. 2.No midline shift. 3.Chronic encephalomalacia and gliosis in the right occipital lobe. 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 Report dictated by Krystian Zhao MD (vice president of advertising). I, Fatuma Green MD have personally reviewed and interpreted this examination/study. > Interpreting Provider: Fatuma Green MD on 10/23/2022 9:59 AM Narrative 10/23/2022 9:59 AM CDT PROCEDURE: ??MRI BRAIN WO CONTRAST, DATE/TIME OF EXAM: ??10/23/2022 9:09 AM, LOCATION ??[facility] INDICATION: I63.9: Cerebrovascular accident (CVA), unspecified mechanism (CMS/HCC) R29.898: Left arm weakness I63.9: Facial droop due to acute stroke (CMS/HCC) R29.810: Facial droop due to acute stroke ([facility]/HCC) ADDITIONAL CLINICAL INFORMATION: Ordering Provider Reason For Exam: ??stroke follow up TECHNIQUE: MRI of the brain was performed without contrast according to standard protocol. COMPARISON: CT brain stroke 10/22/2022 FINDINGS: There is an area of diffusion restriction and T2 hyperintensity in the right periventricular white matter. This appears to extend inferiorly to involve the posterior limb of the right internal capsule. Findings are consistent with acute infarct. T2 FLAIR hyperintensities in the right posterior parieto-occipital region without corresponding diffusion restriction represents a chronic infarct. No evidence of acute or chronic hemorrhage is identified. There is mild cerebral volume loss with associated ex vacuo ventricular dilatation. No mass effect or midline shift is seen. Periventricular white matter FLAIR hyperintensities likely represent sequelae of chronic small vessel ischemic disease. Old lacunar infarcts are present in the left basal ganglia. The corpus callosum and sella appear normal. The posterior fossa, brainstem, and craniocervical junction appear normal. No evidence of acute or chronic hemorrhage is identified. There is a small area of restricted diffusion in the right periventricular white matter, involving the right grant radiata and the posterior limb of the right internal capsule, compatible with evolving acute infarction. No evidence of hemorrhagic transformation. The ventricles are of normal size, shape, and morphology. No mass effect or midline shift is seen. Periventricular, subcortical, and pontine white matter FLAIR hyperintensities likely represent sequelae of chronic small vessel ischemic disease. There is a region of encephalomalacia and gliosis in the right occipital lobe, compatible with chronic right WOOL SAMPLER territory infarction. Chronic infarcts are seen in the left basal ganglia. Suspected partial empty sella. The corpus callosum appears grossly unremarkable. The posterior fossa, brainstem, and craniocervical junction appear grossly unremarkable. Subtle increased FLAIR hyperintensity in the periaqueductal templeton matter and the hypothalamus is a nonspecific finding but can be seen in the setting of thiamine deficiency. Clinical correlation is recommended. Other than bilateral cataract extractions, the visualized portions of the orbits, paranasal sinuses, and mastoids appear normal. Normal flow voids are demonstrated in the carotid arteries and basilar artery. The calvarium and visualized cervical spine appear normal. Procedure Note Fatuma Green MD - 10/23/2022 PROCEDURE: MRI BRAIN WO CONTRAST, DATE/TIME OF EXAM: 10/23/2022 9:09AM, LOCATION [facility] INDICATION: I63.9: Cerebrovascular accident (CVA), unspecified mechanism (CMS/HCC) R29.898: Left arm weakness I63.9: Facial droop due to acute stroke (CMS/HCC) R29.810: Facial droop due to acute stroke (CMS/HCC) ADDITIONAL CLINICAL INFORMATION: Ordering Provider Reason For Exam: stroke follow up TECHNIQUE: MRI of the brain was performed without contrast according to standard protocol. COMPARISON: CT brain stroke 10/22/2022 FINDINGS: There is an area of diffusion restriction and T2 hyperintensity in the right periventricular white matter. This appears to extend inferiorly to involve the posterior limb of the right internal capsule. Findings are consistent with acute infarct. T2 FLAIR hyperintensities in the right posterior parieto-occipitalregion without corresponding diffusion restriction represents a chronicinfarct. No evidence of acute or chronic hemorrhage is identified. There is mild cerebral volume loss with associated ex vacuo ventricular dilatation. No mass effect or midline shift is seen. Periventricular white matter FLAIR hyperintensities likely represent sequelae of chronic small vesselischemic disease. Old lacunar infarcts are present in the left basal ganglia. The corpus callosum and sella appear normal. The posterior fossa, brainstem, and craniocervical junction appear normal. No evidence of acute or chronic hemorrhage is identified. There is a small area of restricted diffusion in the rightperiventricular white matter, involving the right grant radiata and the posterior limbof the right internal capsule, compatible with evolving acute infarction.No evidence of hemorrhagic transformation. The ventricles are of normal size, shape, and morphology. No mass effector midline shift is seen. Periventricular, subcortical, and pontine white matter FLAIR hyperintensities likely represent sequelae of chronic small vessel ischemic disease. There is a region of encephalomalacia andgliosis in the right occipital lobe, compatible with chronic right WOOL SAMPLER territory infarction. Chronic infarcts are seen in the left basal ganglia.Suspected partial empty sella. The corpus callosum appears grossly unremarkable.The posterior fossa, brainstem, and craniocervical junction appear grossly unremarkable. Subtle increased FLAIR hyperintensity in theperiaqueductal templeton matter and the hypothalamus is a nonspecific finding but can beseen in the setting of thiamine deficiency. Clinical correlation isrecommended. Other than bilateral cataract extractions, the visualized portions ofthe orbits, paranasal sinuses, and mastoids appear normal. Normal flow voids are demonstrated in the carotid arteries and basilar artery. Thecalvarium and visualized cervical spine appear normal. IMPRESSION: 1.Small focus of restricted diffusion and T2 hyperintensity in the right periventricular white matter, compatible with small acute infarction. No evidence of hemorrhagic transformation. 2.No midline shift. 3.Chronic encephalomalacia and gliosis in the right occipital lobe. 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 Report dictated by Krystian Zhao MD (vice president of advertising). I, Fatuma Green MD have personally reviewed and interpretedthis examination/study. > Interpreting Provider: Fatuma Green MD on 10/23/2022 9:59 AM Jairo Nunez MD MR ORDERABLES * XR ABDOMEN KUB PORTABLE (10/23/2022 7:38 AM CDT) Anatomical Region Laterality Modality Abdomen Radiographic Ashely ging 10/23/2022 7:41 AM CDT Impressions 10/23/2022 9:28 AM CDT IMPRESSION: No unexpected radiopaque object is identified in the llrgz-ti-purd. Foreshortening of the left femoral neck. Consider x-rays of the left hip. Report dictated by George Silva MD (resident service coordinator). Adia Madrigal MD have personally reviewed and interpreted this examination/study. > Interpreting Provider: Adia King MD on 10/23/2022 9:28 AM Narrative 10/23/2022 9:28 AM CDT EXAMINATION: XR ABDOMEN KUB PORTABLE DATE/TIME OF EXAM: ??10/23/2022 7:38 AM, LOCATION ??[facility] HISTORY: R29.898: Left arm weakness MRI safety COMPARISON: No prior study is available for comparison. FINDINGS: No unexpected radiopaque object is identified in the wiawh-qp-qend. Average stool burden. There are no abnormally dilated bowel loops. Free intraperitoneal air is not adequately assessed on supine radiographs. No pathological calcifications are seen. The urinary bladder is distended with contrast. There is foreshortening of the left femoral neck; consider further evaluation with radiographs of the hip. There is compression deformity of L3 and associated degenerative changes. Procedure Note Adia King MD - 10/23/2022 EXAMINATION: XR ABDOMEN KUB PORTABLE DATE/TIME OF EXAM: 10/23/2022 7:38 AM, LOCATION [facility] HISTORY: R29.898: Left arm weakness MRI safety COMPARISON: No prior study is available for comparison. FINDINGS: No unexpected radiopaque object is identified in the rvudk-oj-cvoa. Average stool burden. There are no abnormally dilated bowel loops. Free intraperitoneal air is not adequately assessed on supine radiographs. No pathological calcifications are seen. The urinary bladder is distendedwith contrast. There is foreshortening of the left femoral neck; consider further evaluation with radiographs of the hip. There is compression deformity of L3 and associated degenerative changes. IMPRESSION: No unexpected radiopaque object is identified in the mosth-mi-ifwb. Foreshortening of the left femoral neck. Consider x-rays of the lefthip. Report dictated by George Silva MD (resident service coordinator). Adia Madrigal MD have personally reviewed and interpreted this examination/study. > Interpreting Provider: Adia King MD on 10/23/2022 9:28 AM Shiva Nayak MD DIAGNOSTIC IMAGING O RDERABLES * XR CHEST 1VW PORTABLE (10/23/2022 7:38 AM CDT) Only the most recent of2 resultswithin the time period is included. Anatomical Region Laterality Modality Chest Radiographic Ashely ging 10/23/2022 7:39 AM CDT Impressions 10/23/2022 9:30 AM CDT IMPRESSION: No unexpected radiopaque object is identified in the ndhkx-mo-kvoo. No acute pulmonary process. Report dictated by George Silva MD (resident service coordinator). Adia Madrigal MD have personally reviewed and interpreted this examination/study. > Interpreting Provider: Adia King MD on 10/23/2022 9:30 AM Narrative 10/23/2022 9:30 AM CDT EXAMINATION: XR CHEST 1VW PORTABLE DATE/TIME OF EXAM: ??10/23/2022 7:38 AM, LOCATION ??[facility] HISTORY: R29.898: Left arm weakness MRI safety COMPARISON: 09/12/2017 FINDINGS: No unexpected radiopaque object is identified in the rtkar-at-dozm. No confluent consolidation is noted. No pleural effusion is seen. No pneumothorax is identified. The cardiac silhouette is normal. Aortic atherosclerosis is noted. The superior mediastinal contours are within normal limits. No acute osseous abnormality. Old right rib fractures are seen. Procedure Note Adia King MD - 10/23/2022 EXAMINATION: XR CHEST 1VW PORTABLE DATE/TIME OF EXAM: 10/23/2022 7:38 AM, LOCATION [facility] HISTORY: R29.898: Left arm weakness MRI safety COMPARISON: 09/12/2017 FINDINGS: No unexpected radiopaque object is identified in the ucozl-bj-pspl. No confluent consolidation is noted. No pleural effusion is seen. No pneumothorax is identified. The cardiac silhouette is normal. Aortic atherosclerosis is noted. The superior mediastinal contours are within normal limits. No acute osseous abnormality. Old right rib fractures are seen. IMPRESSION: No unexpected radiopaque object is identified in the ntdkv-yn-htgs. No acute pulmonary process. Report dictated by George Silva MD (resident service coordinator). I, Adia King MD have personally reviewed and interpreted this examination/study. > Interpreting Provider: Adia King MD on 10/23/2022 9:30 AM Shiva Nayak MD DIAGNOSTIC IMAGING O RDERABLES * EKG 12-LEAD (10/23/2022 6:13 AM CDT) Only the most recent of2 resultswithin the time period is included. Ventricular Rate 64 BPM SL MUSE Atrial Rate 64 BPM [facility] MUSE P-R Interval 170 ms [facility] MUSE QRS Duration ms 84 ms [facility] MUSE Q-T Interval ms 426 ms [facility] MUSE QTC Calculation (Bezet) 439 ms SL MUSE Calculated P [place] 33 degrees SL MUSE Calculated R [place] -52 degrees SL MUSE Calculated T [place] 44 degrees SL MUSE Interpretation EKG NORMAL SINUS RHYTHM LEFT AXIS DEVIATION POSSIBLE SEPTAL INFARCT , AGE UNDETERMINED ABNORMAL ECG WHEN COMPARED WITH ECG OF 12-SEP-2017 09:45, NO SIGNIFICANT CHANGE WAS FOUND Confirmed by GEORGE SNELL, NATALIANGUYEN ([id number]) on 10/24/2022 10:42:46 PM [facility] MUSE 10/23/2022 6:13 AM CDT 10/24/2022 10:42 PM CDT Steffany Bailey MD ECG ORDERABLES [facility] M[facility] * (ABNORMAL) TROPONIN-I HIGH SENSITIVE REFLEX 1HOUR (10/23/2022 6:08 AM CDT) Pathologist [facility] Troponin I High Sensitive 15(H) <=14 ng/L 10/23/2022 7:26 AM CDT [facility] Delta Troponin I HS 10/23/2022 7:26 AM CDT [facility] Comment:Delta value intentio joel not calculated. Baseline to 1 hour specimen collection interval exceeded. Blood BLOOD SPECIMEN / Unknown Venipuncture / Unknown 10/23/2022 6:08 AM CDT 10/23/2022 6:39 AM CDT Jairo Nunez MD LAB - CHEMISTRY MYLA GOOD Performing Organization Address City/[facility]/ZIP Co de Phone Number [address] [address], [place] [phone] * BLOOD TYPE VERIFICATION (10/23/2022 6:08 AM CDT) ABO Rh O NEG 10/23/2022 7:0 5 AM CDT [facility] Blood Bank BLOOD SPECIMEN / Unknown Venipuncture / Unknown 10/23/2022 6:08 AM CDT 10/23/2022 6:21 AM CDT Leyla Weber MD LAB - BLOOD BANK ORD ENMA Performing Organization Address [facility]/ZIP Co de Phone Number [facility] [address] [place] [id number], [place] [phone] * (ABNORMAL) TROPONIN-I HIGH SENSITIVE BASELINE + 1HR (10/23/2022 3:48 AM CDT) Troponin I High Sensitive 15(H) <=14 ng/L 10/23/2022 4:23 AM CDT [facility] Blood BLOOD SPECIMEN / Unknown Venipuncture / Unknown 10/23/2022 3:48 AM CDT 10/23/2022 4:04 AM CDT Jairo Nunez MD LAB - CHEMISTRY [facility]LA [facility] Performing Organization Address City/[facility]/ZIP Co de Phone Number [address] [address], [place] [phone] * (ABNORMAL) LIPID PROFILE (10/23/2022 3:48 AM CDT) Only the most recent of2 resultswithin the time period is included. Cholesterol Total 157 <200 mg/dL 10/23/2022 4:17 AM CDT [facility] HDL 22(L) >40 mg/dL 10/23/2022 4:17 AM [facility] Comment: ATP III Classification of HDL Cholesterol: ? <40 mg/dL: ??Considered a major risk factor. ? >60 mg/dL: ??Considered a negative risk factor. ? LDL Calculated 76 <100 mg/dL 10/23/2022 4:17 AM [facility] Comment: ATP III Classification of LDL Cholesterol: ?<100 mg/dL: ??Optimal ? 100 - 129 mg/dL: ??Near Optimal/Above Optimal ? 130 - 159 mg/dL: ??Borderline High ? 160 - 189 mg/dL: ??High ?>190 mg/dL: ??Very High ? Triglycerides 296(H) <150 mg/dL 10/23/2022 4:17 AM [facility] Comment: ATP III Classification of Triglycerides: ?<150 mg/dL: ??Normal ? 150 - 199 mg/dL: ??Borderline High ? 200 - 400 mg/dL: ??High ?>500 mg/dL: ??Very High Blood BLOOD SPECIMEN / Unknown Venipuncture / Unknown 10/23/2022 3:48 AM CDT 10/23/2022 4:04 AM CDT Jairo Nunez MD LAB - CHEMISTRY MYLA [facility] Performing Organization Address [facility]/State/ZIP Co de Phone Number [facility] [address] [place] [address], [place] [phone] * CT ANGIO BRAIN NECK STROKE (10/22/2022 8:40 PM CDT) Anatomical Region Laterality Modality Head Computed Tomogra phy 10/22/2022 9:00 PM CDT Impressions 10/22/2022 9:22 PM CDT IMPRESSION: 1.No occlusion, hemodynamically significant stenosis, or aneurysm of the major intracranial arteries. 2.No occlusion, hemodynamically significant stenosis, or dissection of the major neck arteries. Results of this exam were verbally discussed by Dr. Zeynep Rosenberg with Dr. Garcia on 10/22/2022 at 9:11 PM for a Critical Stroke Protocol with readback confirmation and verification. The images were reviewed by attending physician Dr. Zeynep Rosenberg prior to this communication. > Interpreting Provider: Zeynep Rosenberg MD, PhD on 10/22/2022 9:22 PM Narrative 10/22/2022 9:22 PM CDT EXAM: CT ANGIO BRAIN NECK STROKE, DATE/TIME OF EXAM: 10/22/2022 8:52 PM, LOCATION: ??[facility] HISTORY: I63.9: Cerebrovascular accident (CVA), unspecified mechanism (CMS/HCC) EXAMINATION: CT angiogram images of the head and neck acquired with intravenous contrast. Multiplanar reformations acquired. TECHNIQUE: CT angiography of the head and neck was obtained after administration of intravenous contrast. Three dimensional postprocessing was performed by the technologist and sent to the workstation for review. NASCET criteria was utilized for evaluation of carotid stenosis. Additionally, Viz.AI was used for large vessel occlusion detection. CT dose reduction technique was used, including Automated Exposure Control. CONTRAST: ??IOPAMIDOL 76 % IV SOLN:80 mL ?? COMPARISON: Head CT 10/22/2022 at 8:34 PM. FINDINGS: CTA HEAD: No occlusion, hemodynamically significant stenosis, or aneurysm. Ohna-nx-ejatcicj calcific atherosclerosis of the cavernous and clinoid segments of the internal carotid arteries (ICAs) and minimal calcific atherosclerosis of the left vertebral artery V4 segment without occlusion or hemodynamically significant stenosis. 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 CTA NECK: GREAT VESSELS: Visualized segments are patent. Mild calcific atherosclerosis of the aortic arch and proximal branches. RIGHT CCA/ICA: No occlusion. ICA at the carotid bifurcation with less than 50% stenosis by NASCET criteria secondary to calcific atherosclerosis. No evidence of dissection. LEFT CCA/ICA: No occlusion. ICA at the carotid bifurcation with less than 50% stenosis by NASCET criteria secondary to calcific atherosclerosis. No evidence of dissection. VERTEBRAL ARTERIES: No occlusion or hemodynamically significant stenosis. No evidence of dissection. Dominant left vertebral artery. OTHER: Minimal dependent subsegmental atelectasis of the imaged portions of the lung apices. No neck mass or suspicious lymph nodes. Bones demonstrate no significant abnormality. ??Patient is edentulous. Procedure Note Zeynep Rosenberg MD - 10/22/2022 EXAM: CT ANGIO BRAIN NECK STROKE, DATE/TIME OF EXAM: 10/22/2022 8:52 PM, LOCATION: [facility] HISTORY: I63.9: Cerebrovascular accident (CVA), unspecified mechanism (CMS/HCC) EXAMINATION: CT angiogram images of the head and neck acquired with intravenous contrast. Multiplanar reformations acquired. TECHNIQUE: CT angiography of the head and neck was obtained after administration of intravenous contrast. Three dimensional postprocessing was performed by the technologist and sent to the workstation forreview. NASCET criteria was utilized for evaluation of carotid stenosis. Additionally, Viz.AI was used for large vessel occlusion detection. CTdose reduction technique was used, including Automated Exposure Control. CONTRAST: IOPAMIDOL 76 % IV SOLN:80 mL COMPARISON: Head CT 10/22/2022 at 8:34 PM. FINDINGS: CTA HEAD: No occlusion, hemodynamically significant stenosis, oraneurysm. Yfuu-wj-odkxksmt calcific atherosclerosis of the cavernous and clinoid segments of the internal carotid arteries (ICAs) and minimal calcific atherosclerosis of the left vertebral artery V4 segment withoutocclusion or hemodynamically significant stenosis. 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 CTA NECK: GREAT VESSELS: Visualized segments are patent. Mild calcific atherosclerosis of the aortic arch and proximal branches. RIGHT CCA/ICA: No occlusion. ICA at the carotid bifurcation with lessthan 50% stenosis by NASCET criteria secondary to calcific atherosclerosis.No evidence of dissection. LEFT CCA/ICA: No occlusion. ICA at the carotid bifurcation with lessthan 50% stenosis by NASCET criteria secondary to calcific atherosclerosis.No evidence of dissection. VERTEBRAL ARTERIES: No occlusion or hemodynamically significantstenosis. No evidence of dissection. Dominant left vertebral artery. OTHER: Minimal dependent subsegmental atelectasis of the imaged portionsof the lung apices. No neck mass or suspicious lymph nodes. Bonesdemonstrate no significant abnormality. Patient is edentulous. IMPRESSION: 1.No occlusion, hemodynamically significant stenosis, or aneurysm of the major intracranial arteries. 2.No occlusion, hemodynamically significant stenosis, or dissection ofthe major neck arteries. Results of this exam were verbally discussed by Dr. Zeynep Rosenberg with Dr. Garcia on 10/22/2022 at 9:11 PM for a Critical Stroke Protocol withreadback confirmation and verification. The images were reviewed by attending physician Dr. Zeynep Rosenberg prior to this communication. > Interpreting Provider: Zeynep Rosenberg MD, PhD on 10/22/2022 9:22 PM Steffany Bailey MD CT ORDERABLES * CT BRAIN - Stroke (10/22/2022 8:35 PM CDT) Anatomical Region Laterality Modality Head Computed Tomogra phy 10/22/2022 8:44 PM CDT Impressions 10/22/2022 9:00 PM CDT IMPRESSION: 1.Right medial occipital lobe with an age-indeterminate hypodensity with mcnally-white differentiation loss, which is new compared to prior brain MRI 09/12/2017 and favors a mwsujtbv-rp-jotfbde infarct. 2.Right gangliocapsular region with an age-indeterminate hypodensity measuring 1.2 cm, which is new compared to prior brain MRI 09/12/2017 and favors a chronic lacune. 3.No acute intracranial hemorrhage or significant mass effect. Results of this exam were verbally discussed by Dr. Zeynep Rosenberg with Dr. Garcia on 10/22/2022 at 8:47 PM for a Critical Stroke Protocol with readback confirmation and verification. The images were reviewed by attending physician Dr. Zeynep Rosenberg prior to this communication. > Interpreting Provider: Zeynep Rosenberg MD, PhD on 10/22/2022 9:00 PM Narrative 10/22/2022 9:00 PM CDT EXAM: CT BRAIN STROKE, DATE/TIME OF EXAM: 10/22/2022 8:42 PM, LOCATION: ??[facility] HISTORY: Code Stroke EXAMINATION: CT scan of the head without intravenous contrast TECHNIQUE: CT of the head was performed without intravenous contrast according to standard protocol. CT dose reduction technique was used, including Automated Exposure Control. COMPARISON: Brain MRI and head CT 09/12/2017. FINDINGS: BRAIN PARENCHYMA: No acute parenchymal hemorrhage or significant mass effect. Right medial occipital lobe with an age-indeterminate hypodensity with mcnally-white differentiation loss, which is new compared to prior brain MRI 09/12/2017 and favors a uuhdbghy-do-agcikip infarct. Right gangliocapsular region with an age-indeterminate hypodensity measuring 1.2 cm, which is new compared to prior brain MRI 09/12/2017 and favors a chronic lacune. Additional small chronic lacunes of the left gangliocapsular region. Scattered white matter hypodensities, which are nonspecific but likely represents the sequela of chronic microangiopathic change. Mild generalized parenchymal volume loss, which is commensurate for age. VENTRICLES/EXTRA-AXIAL SPACES: No ventriculomegaly or extra-axial collection. Basal cisterns are patent. Incidentally noted prominent anterior parafalcine ossific focus. EXTRACRANIAL STRUCTURES: Normal bones and soft tissues. Paranasal sinuses, nasal cavity, and mastoid air cells are clear. Bilateral lens replacement; otherwise, orbits are unremarkable. Wgaj-wo-ullvqetu calcific atherosclerosis of the carotid siphons. Procedure Note Zeynep Rosenberg MD - 10/22/2022 EXAM: CT BRAIN STROKE, DATE/TIME OF EXAM: 10/22/2022 8:42 PM, LOCATION:[facility] HISTORY: Code Stroke EXAMINATION: CT scan of the head without intravenous contrast TECHNIQUE: CT of the head was performed without intravenous contrast according to standard protocol. CT dose reduction technique was used, including Automated Exposure Control. COMPARISON: Brain MRI and head CT 09/12/2017. FINDINGS: BRAIN PARENCHYMA: No acute parenchymal hemorrhage or significant mass effect. Right medial occipital lobe with an age-indeterminate hypodensity with mcnally-white differentiation loss, which is new compared to prior brainMRI 09/12/2017 and favors a oqbxswls-vk-rgphrib infarct. Right gangliocapsular region with an age-indeterminate hypodensity measuring 1.2 cm, which is new compared to prior brain MRI 09/12/2017 and favors a chronic lacune. Additional small chronic lacunes of the left gangliocapsular region. Scattered white matter hypodensities, which are nonspecific but likely represents the sequela of chronic microangiopathic change. Mildgeneralized parenchymal volume loss, which is commensurate for age. VENTRICLES/EXTRA-AXIAL SPACES: No ventriculomegaly or extra-axial collection. Basal cisterns are patent. Incidentally noted prominent anterior parafalcine ossific focus. EXTRACRANIAL STRUCTURES: Normal bones and soft tissues. Paranasalsinuses, nasal cavity, and mastoid air cells are clear. Bilateral lensreplacement; otherwise, orbits are unremarkable. Oxjb-vs-muueixrf calcific atherosclerosis of the carotid siphons. IMPRESSION: 1.Right medial occipital lobe with an age-indeterminate hypodensity with mcnally-white differentiation loss, which is new compared to prior brainMRI 09/12/2017 and favors a wjnlclsf-js-dpodppk infarct. 2.Right gangliocapsular region with an age-indeterminate hypodensity measuring 1.2 cm, which is new compared to prior brain MRI 09/12/2017 and favors a chronic lacune. 3.No acute intracranial hemorrhage or significant mass effect. Results of this exam were verbally discussed by Dr. Zeynep Rosenberg with Dr. Garcia on 10/22/2022 at 8:47 PM for a Critical Stroke Protocol withreadback confirmation and verification. The images were reviewed by attending physician Dr. Zeynep Rosenberg prior to this communication. > Interpreting Provider: Zeynep Rosenberg MD, PhD on 10/22/2022 9:00 PM Steffany Bailey MD CT ORDERABLES * PT-INR [facility] (10/22/2022 8:34 PM CDT) Only the most recent of2 resultswithin the time period is included. PT 13.1 12.1 - 14.8 Seconds 10/22/2022 8:59 PM CDT [facility] INR 1.0 See Comment 10/22/2022 8:59 PM CDT [facility] Comment:The suggested therap eutic range for standard coumadin (warfarin) therapy is an INR of 2.0-3.0. For high-risk patients (Mechanical Mitral Valve Prosthesis, etc.), the suggested prophylactic therapeutic range is an INR of 2.5-3.5. Blood BLOOD SPECIMEN / Unknown Venipuncture / Unknown 10/22/2022 8:34 PM CDT 10/22/2022 8:51 PM CDT Steffany Bailey MD LAB - COAGULATION OR DERABLES Performing Organization Address City/[facility]/ZIP Co de Phone Number [facility] [address] [place] [address], [place] [phone] * TYPE + SCREEN PANEL (10/22/2022 8:34 PM CDT) Pathologist [facility] Antibody Screen NEG 9:21 PM CDT [facility] ABO Rh O NEG 10/22/2022 9:21 PM CDT [facility] Blood Bank BLOOD SPECIMEN / Unknown Venipuncture / Unknown 10/22/2022 8:34 PM CDT 10/22/2022 8:39 PM CDT Steffany Bailey MD LAB - BLOOD BANK ORD ERABLES Performing Organization Address [facility] Co de Phone Number [facility] [address] [place] [address], [place] [phone] * (ABNORMAL) CBC W AUTO DIFFERENTIAL (10/22/2022 8:34 PM CDT) Only the most recent of2 resultswithin the time period is included. WBC 11.4(H) 3.5 - 10.5 10? 3 /uL 10/22/2022 8:49 PM CDT [facility] RBC 4.19 3.80 - 5.20 10? 6 /uL 10/22/2022 8:49 PM CDT [facility] Hemoglobin 12.8 12.0 - 15.6 g/dL 10/22/2022 8:49 PM CDT [facility] Hematocrit 38.2 35.0 - 45.0 % 10/22/2022 8:49 PM [facility] MCV 91.2 80.7 - 98.3 fL 10/22/2022 8:49 PM [facility] MCH 30.5 26.7 - 34.0 pg 10/22/2022 8:49 PM [facility] MCHC 33.5 30.8 - 35.9 g/dL 10/22/2022 8:49 PM [facility] RDW-SD 39.7 36.0 - 50.0 fL 10/22/2022 8:49 PM [facility] RDW-CV 11.9 11.2 - 14.8 % 10/22/2022 8:49 PM [facility] Platelet Count 383 150 - 400 10? 3 /uL 10/22/2022 8:49 PM [facility] MPV 9.8 9.4 - 12.9 fL 10/22/2022 8:49 PM [facility] nRBC Absolute 0.00 0 10? 3 /uL 10/22/2022 8:49 PM [facility] nRBC Auto 0.0 0 /100 WBC 10/22/2022 8:49 PM [facility] Neutrophils % 56.4 35.0 - 70.0 % 10/22/2022 8:49 PM [facility] Lymphocytes % 30.2 20.0 - 43.0 % 10/22/2022 8:49 PM [facility] Monocytes % 7.9 5.0 - 13.0 % 10/22/2022 8:49 PM [facility] Eosinophils % 4.5 0.0 - 6.0 % 10/22/2022 8:49 PM [facility] Basophil % 0.5 0.0 - 2.0 % 10/22/2022 8:49 PM [facility] Neutrophils Absolute 6.40 1.60 - 7.00 10? 3 /uL 10/22/2022 8:49 PM [facility] Lymphocyte Absolute 3.43 1.10 - 3.90 10? 3 /uL 10/22/2022 8:49 PM [facility] Monocytes Absolute 0.90 0.26 - 1.07 10? 3 /uL 10/22/2022 8:49 PM [facility] Eosinophils Absolute 0.51(H) 0.00 - 0.47 10? 3 /uL 10/22/2022 8:49 PM CDT [facility] Basophils Absolute 0.06 0.00 - 0.08 10? 3 /uL 10/22/2022 8:49 PM CDT [facility] Immature Granulocytes % 0.5 0.0 - 1.0 % 10/22/2022 8:49 PM [facility] Immature Granulocytes Absolute 0.06 10/22/2022 8:49 PM [facility] Blood BLOOD SPECIMEN / Unknown Venipuncture / Unknown 10/22/2022 8:34 PM CDT 10/22/2022 8:40 PM CDT Steffany Bailey MD LAB - HEMATOLOGY ORD ERABLES [address] [address], [place] [phone] * (ABNORMAL) COMPREHENSIVE METABOLIC PANEL (10/22/2022 8:34 PM CDT) Only the most recent of5 resultswithin the time period is included. BUN 17 7 - 26 mg/dL 10/22/2022 9:18 PM [facility] Creatinine 1.13(H) 0.56 - 0.96 mg/dL 10/22/2022 9:18 PM [facility] Sodium 134(L) 136 - 145 mmol/L 10/22/2022 9:18 PM [facility] Potassium 3.9 3.5 - 4.5 mmol/L 10/22/2022 9:18 PM [facility] Chloride 102 98 - 107 mmol/L 10/22/2022 9:18 PM [facility] CO2 24 22 - 29 mmol/L 10/22/2022 9:18 PM [facility] Glucose 289(H) 70 - 115 mg/dL 10/22/2022 9:18 PM [facility] Calcium 9.6 8.4 - 10.2 mg/dL 10/22/2022 9:18 PM [facility] Protein Total 7.5 6.0 - 8.3 g/dL 10/22/2022 9:18 PM [facility] Albumin 2.8(L) 3.4 - 5.0 g/dL 10/22/2022 9:18 PM [facility] Bilirubin Total 0.2 0.2 - 1.2 mg/dL 10/22/2022 9:18 PM [facility] Alkaline Phosphatase 79 40 - 150 U/L 10/22/2022 9:18 PM [facility] ALT 9 5 - 55 U/L 10/22/2022 9:18 PM [facility] AST 9 5 - 34 U/L 10/22/2022 9:18 PM [facility] Anion Gap 12 8 - 18 10/22/2022 9:18 PM [facility] BUN/Creatinine Ratio 15 7 - 23 10/22/2022 9:18 PM [facility] Osmolality Calculated 290 270 - 300 mOsm/kg 10/22/2022 9:18 PM [facility] Albumin/Globulin Ratio 0.6(L) 1.1 - 2.3 10/22/2022 9:18 PM [facility] eGFR by CKD-EPI 55(L) >=90 mL/min/1.7 3 m2 10/22/2022 9:18 PM [facility] Blood BLOOD SPECIMEN / Unknown Venipuncture / Unknown 10/22/2022 8:34 PM CDT 10/22/2022 9:04 PM CDT Steffany Bailey MD LAB - CHEMISTRY ORDE LATISHA [facility] Organization Address City/State/ZIP Co de Phone Number [facility] [address] [place] [address], [place] [phone] * INR WHOLE BLOOD - POINT OF CARE (IP) STROKE (10/22/2022 8:32 PM CDT) INR 0.9 0.9 - 1.2 10/22/2022 8:37 PM [facility] Device [id number] 10/22/2022 8:37 PM CDT [facility] [employer] Artist ID [id number] 10/22/2022 8:37 PM CDT [facility] Blood BLOOD SPECIMEN / Unknown 10/22/2022 8:32 PM CDT 10/22/2022 8:37 PM CDT Provider Unknown LAB - POINT OF CARE ORDERABLES Performing Organization Address City/[facility]/ZIP Co de Phone Number [facility] [address] [place] [phone], [place] [phone] * (ABNORMAL) CREATININE - POCT INTERFACED (10/22/2022 8:32 PM CDT) Creatinine POCT 0.79 0.30 - 1.30 mg/dL 10/22/2022 8:38 PM CDT [facility] eGFR 84(L) >90 mL/min/1.7 3 m2 10/22/2022 8:38 PM CDT [facility] Blood BLOOD SPECIMEN / Unknown 10/22/2022 8:32 PM CDT 10/22/2022 8:37 PM CDT Provider Unknown LAB - POINT OF CARE ORDERABLES Performing Organization Address [facility]/ZIP Co de Phone Number [facility] [address] [place] [phone], [place] [phone] * PHOSPHORUS BLOOD (09/15/2017 3:04 AM CDT) Only the most recent of4 resultswithin the time period is included. Phosphorus 4.0 2.3 - 4.7 mg/dL 09/15/2017 3:52 AM CDT [facility] Blood BLOOD SPECIMEN / Unknown Lab Venipuncture / Unknown 09/15/2017 3:04 AM CDT 09/15/2017 3:21 AM CDT John Carpenter MD LAB - CHEMISTRY MYLA GOOD [facility] [address] [place] [address], [place] [phone] * ECHO W DOPPLER AND COLOR FLOW (09/14/2017 3:59 PM CDT) Anatomical Region Laterality Modality Color Flow Doppl er 09/14/2017 3:29 PM CDT Narrative Procedure Note Migdalia Mace MD - 09/14/2017 Jose Hughes MD ECHOCARDIOGRAPHY RAD IANT * (ABNORMAL) URINALYSIS W/MICROSCOPIC NO CULTURE (09/12/2017 10:38 AM CDT) Color UA Yellow Straw, Yellow, Colorless, Light Yellow 09/12/2017 10:51 AM [facility] Clarity UA Clear Clear 09/12/2017 10:51 AM [facility] Specific [place] UA >1.040(H) 1.001 - 1.030 09/12/2017 10:51 AM [facility] pH UA 6.0 5.0 - 8.0 09/12/2017 10:51 AM [facility] Protein UA Negative <=20 mg/dL 09/12/2017 10:51 AM [facility] Glucose UA >1000(A) Negative mg/dL 09/12/2017 10:51 AM [facility] Ketone UA Trace(A) Negative mg/dL 09/12/2017 10:51 AM [facility] Bilirubin UA Negative Negative mg/dL 09/12/2017 10:51 AM [facility] Blood UA Negative Negative 09/12/2017 10:51 AM [facility] Nitrite UA Negative Negative 09/12/2017 10:51 AM [facility] Leukocyte Esterase Small(A) Negative 09/12/2017 10:51 AM [facility] Urobilinogen UA <2.0 <2.0 mg/dL 8 10:51 AM [facility] RBC UA 3 0 - 8 /HPF 09/12/2017 10:51 AM [facility] WBC UA 22(H) 0 - 2 /HPF 09/12/2017 10:51 AM [facility] Bacteria UA Occasional Rare, Occasional, None /HPF 09/12/2017 10:51 AM CDT [facility] Squamous Epithelial Cells UA <1 0 - 1 /HPF 09/12/2017 10:51 AM CDT [facility] Renal Epithelial UA <1 0 - 1 /HPF 09/12/2017 10:51 AM CDT [facility] Urine URINE SPECIMEN OBTAINED BY CLEAN CATCH PROCEDURE / Unknown Collection / Unknown 09/12/2017 10:38 AM CDT 09/12/2017 10:38 AM CDT Narrative [facility] - 09/12/2017 10:51 AM CDT Specific gravity results confirmed by refractometer. Alesha Aragon MD LAB - URINALYSIS ORD ERABLES Performing Organization Address City/[facility]/ZIP Co de Phone Number [facility] [address] [phone] * CULTURE URINE (09/12/2017 10:38 AM CDT) Culture Urine 10,000-50,000 CFU/mL urogenital darryl KIMBERLY 09/13/2017 9:51 AM CDT [facility] Urine URINE SPECIMEN OBTAINED BY CLEAN CATCH PROCEDURE / Unknown Collection / Unknown 09/12/2017 10:38 AM CDT 09/12/2017 10:38 AM CDT Alesha Aragon MD LAB - MICROBIOLOGY O RDERABLES [facility] [address] [phone] * DRUG SCREEN TOX URINE PANEL (09/12/2017 10:38 AM CDT) Amphetamines Screen Urine Negative Negative: < 1000 ng/mL 09/12/2017 11:02 AM [facility] Barbiturates Screen Urine Negative Negative: < 200 ng/mL 09/12/2017 11:02 AM [facility] Benzodiazepine Screen Urine Negative Negative: < 200 ng/mL 09/12/2017 11:02 AM [facility] Opiates Urine Negative Negative: < 300 ng/mL 09/12/2017 11:02 AM CDT [facility] Cocaine Metabolites Urine Negative Negative: < 300 ng/mL 09/12/2017 11:02 AM CDT [facility] Phencyclidine Screen Urine Negative Negative: < 25 ng/ml 09/12/2017 11:02 AM CDT [facility] Cannabinoids Screen Urine Negative Negative: <50 ng/mL 09/12/2017 11:02 AM CDT [facility] Methadone Screen Urine Negative Negative: < 300 ng/mL 09/12/2017 11:02 AM T [facility] Urine URINE / Unknown Collection / Unknown 09/12/2017 10:38 AM CDT 09/12/2017 10:38 AM CDT Narrative [facility] - 09/12/2017 11:02 AM CDT The Urine Toxicology Screening Panel does not screen for Propoxyphene, Meprobamate, Carisoprodol, Trazodone, rrvy-qng-rsonspw medications and/or volatiles (Acetone, Isopropanol, Methanol or Ethylene Glycol). Ethanol, Salicylate, Acetaminophen, Tricyclic Antidepressants and several therapeutic drugs may be individually assayed in serum or plasma specimen. Toxicology testing by the [facility] is an aid to medical diagnosis and treatment of patients. No documented chain of custody was maintained. Results are intended to be used for clinical purposes only. ? Alesha Aragon MD LAB - URINE CHEMISTR Y ORDERABLES [facility] [address] [place] [address], [place] [phone] * TROPONIN I (09/12/2017 10:00 AM CDT) Only the most recent of2 resultswithin the time period is included. Troponin I <0.010 <0.032 ng/mL 09/12/2017 10:49 AM CDT [facility] Blood BLOOD SPECIMEN / Unknown Venipuncture / Unknown 09/12/2017 10:00 AM CDT 09/12/2017 10:12 AM CDT Jose Hughes MD LAB - CHEMISTRY ORDE LATISHA [facility] [address] [place] [address] * PTT [facility] (09/12/2017 9:51 AM CDT) APTT 25.7 23.0 - 38.4 Seconds 09/12/2017 10:25 AM CDT [facility] Comment: Suggested therapeutic range for full dose I.V. heparin therapy for venous thromboembolism is 66.0-91.0 seconds. Blood BLOOD SPECIMEN / Unknown Venipuncture / Unknown 09/12/2017 9:51 AM CDT 09/12/2017 9:55 AM CDT Alesha Aragon MD LAB - COAGULATION OR DERABLES Performing Organization Address [facility]/ZIP Co de Phone Number [address] [phone] * B-TYPE NATRIURETIC PEPTIDE (09/12/2017 9:51 AM CDT) BNP <10 See Comment pg/mL 09/12/2017 10:29 AM CDT [facility] Comment: A decision threshold of 100 pg/mL has been demonstrated to provide the maximal combination of sensitivity, specificity and predictive value for the diagnosis of congestive heart failure (CHF). ??Virtually all patients with no evidence of CHF have BNP values less than 100 pg/mL. A BNP value greater than 100 pg/mL is consistent with the diagnosis of CHF in the appropriate clinical setting. In a study of 693 patients (male and female) with diagnosed CHF, the following values were determined based on the NYHA functional classification system: NYHA Functional Class ?Mean Valule (pg/mL) ? % >100 pg/mL ?I ?320 ? 58.1 ?II ? 432 ? 73.0 ?III ?656 ? 79.0 ?IV ?1635 ? 98.3 ? Blood BLOOD SPECIMEN / Unknown Venipuncture / Unknown 09/12/2017 9:51 AM CDT 09/12/2017 9:59 AM CDT Alesha Aragon MD LAB - CHEMISTRY MYLA GOOD Performing Organization Address [facility]/State/[place] [address], [place] [phone] * (ABNORMAL) HYDROXYBUTYRATE BETA (09/12/2017 9:43 AM CDT) Beta-Hydroxybu tyrate 0.64(H) 0.02 - 0.27 mmol/L 09/12/2017 10:14 AM CDT [facility] Blood BLOOD SPECIMEN / Unknown Venipuncture / Unknown 09/12/2017 9:43 AM CDT 09/12/2017 9:50 AM CDT Alesha Aragon MD LAB - CHEMISTRY MYLA GOOD [facility] Organization Address City/State/ZIP Co de Phone Number [facility] [address] [place] [address] * (ABNORMAL) BLOOD GASES [place] (09/12/2017 9:43 AM CDT) pH Mixed Venous 7.41(H) 7.30 - 7.40 09/12/2017 9:54 AM [facility] pCO2 Mixed Venous 43 40 - 46 mmHg 09/12/2017 9:54 AM [facility] pO2 Mixed Venous 40 35 - 42 mmHg 09/12/2017 9:54 AM [facility] HCO3 Mixed Venous 26.2(H) 22.0 - 26.0 mmol/L 09/12/2017 9:54 AM [facility] TCO2 Mixed Venous 27.5 25.0 - 29.0 mmol/L 09/12/2017 9:54 AM [facility] Base Excess Venous 1.2 -2.0 - 2.0 mmol/L 09/12/2017 9:54 AM [facility] Hemoglobin Mixed Venous 14.5 12.0 - 15.5 g/dL 09/12/2017 9:54 AM [facility] Oxyhemoglobin Mixed Venous 77.0 66.0 - 77.0 % 09/12/2017 9:54 AM [facility] Carboxyhemoglobin Venous 3.8(H) 0.0 - 3.0 % 09/12/2017 9:54 AM [facility] Methemoglobin 0.3 0.0 - 2.0 % 09/12/2017 9:54 AM [facility] FI O2 Mixed Venous 21.0 % 2017 9:54 AM [facility] Blood BLOOD SPECIMEN / Unknown Venipuncture / Unknown 09/12/2017 9:43 AM CDT 09/12/2017 9:49 AM CDT Alesha Aragon MD LAB - BLOOD GASES OR DERABLES Performing Organization Address [facility] Co de Phone Number [address] [phone] * (ABNORMAL) MAGNESIUM BLOOD (09/12/2017 9:43 AM CDT) Pathologist [facility] Magnesium 1.4(L) 1.6 - 2.6 mg/dL 09/12/2017 10:09 AM CDT [facility] Blood BLOOD SPECIMEN / Unknown Venipuncture / Unknown 09/12/2017 9:43 AM CDT 09/12/2017 9:50 AM CDT Alesha Aragon MD LAB - CHEMISTRY MYLA GOOD Performing Organization Address [facility] Co de Phone Number [address] [phone] ALCOHOL ETHYL BLOOD (09/12/2017 9:43 AM CDT) [facility] Interpretation Ethanol None Detected None Detected mg/dL 09/12/2017 10:11 AM CDT [facility] Comment: Ethanol levels less than 10 mg/dL are resulted as None detected . Blood BLOOD SPECIMEN / Unknown Venipuncture / Unknown 09/12/2017 9:43 AM CDT 09/12/2017 9:50 AM CDT Alesha Aragon MD LAB - CHEMISTRY MYLA GOOD Performing Organization Address [facility] Co de Phone Number [address] [phone] * CT ANGIO BRAIN AND NECK (09/12/2017 9:36 AM CDT) Anatomical Region Laterality Modality Head Computed Tomogra phy 09/12/2017 9:28 AM CDT Impressions 09/12/2017 1:14 PM CDT IMPRESSION: 1. No acute intracranial hemorrhage. 2. No large arterial occlusions or significant stenoses identified in the head or neck. 3. No cerebral perfusion abnormality identified. I, Dr. Ruben Matthews have personally reviewed and interpreted this examination/study. This report was electronically signed by Ruben Matthews ??on 09/12/2017 1:14 PM . Narrative 09/12/2017 1:14 PM CDT EXAMINATION: 1. Computed tomographic (CT) angiography of the head without and with contrast 2. CT angiography of the neck with contrast 3. CT cerebral perfusion HISTORY: R53.1: Weakness TECHNIQUE: CT of the head was performed without contrast according to standard protocol. Then CT angiography of the head and neck and CT cerebral perfusion was obtained after the uneventful administration of 75 mL Isovue-370 intravenous contrast. Three dimensional postprocessing was performed by the technologist and sent to the workstation for review. FINDINGS: No prior study is available for comparison at the time of this dictation. Non-angiographic findings: No acute intra- or extra-axial fluid collections are identified. The ventricles are of normal size, shape, and morphology. The basilar cisterns are patent. No mass effect or midline shift is seen. The templeton-white matter differentiation is normal. Periventricular white matter hypoattenuation is indicative of chronic small vessel ischemic disease. There is vascular calcification of the carotid siphons. The visualized portions of the orbits, paranasal sinuses, and mastoids appear normal. No acute fracture is identified. Nonspecific scattered lymph nodes. Angiographic findings: There is mild atherosclerotic disease of the aortic arch. The configuration of the brachiocephalic vessels is typical. The innominate artery and both calcified plaque in the left reflux segment. Subclavian arteries appear normal. There is mild atherosclerotic disease of the right carotid bifurcation and origin of the right internal carotid artery with less than 50 percent focal stenosis. The right common and internal carotid arteries otherwise appear normal. There is mild atherosclerotic disease of the left carotid bifurcation and origin of the left internal carotid artery with less than 50 percent focal stenosis. The left common and internal carotid arteries otherwise appear normal. The normal-appearing left cervical vertebral artery is dominant and terminates as the basilar artery. The right cervical vertebral artery is diminutive and terminates as the right posterior inferior cerebellar artery. There is atherosclerotic disease involving the distal internal carotid arteries without significant focal stenosis. The anterior and middle cerebral arteries appear normal. . The basilar artery and posterior cerebral arteries appear normal with origin of the left posterior cerebral artery. No aneurysms, vascular occlusions, or intracranial stenoses are identified. Calcified plaque in the left V4 segment. Perfusion findings: No perfusion abnormality is identified. Procedure Note Ruben Matthews MD - 09/12/2017 EXAMINATION: 1. Computed tomographic (CT) angiography of the head without and with contrast 2. CT angiography of the neck with contrast 3. CT cerebral perfusion HISTORY: R53.1: Weakness TECHNIQUE: CT of the head was performed without contrast according to standard protocol. Then CT angiography of the head and neck and CT cerebral perfusion was obtained after the uneventful administration of75 mL Isovue-370 intravenous contrast. Three dimensional postprocessing was performed by the technologist and sent to the workstation for review. FINDINGS: No prior study is available for comparison at the time of this dictation. Non-angiographic findings: No acute intra- or extra-axial fluid collections are identified. The ventricles are of normal size, shape, and morphology. The basilarcisterns are patent. No mass effect or midline shift is seen. The templeton-whitematter differentiation is normal. Periventricular white matter hypoattenuationis indicative of chronic small vessel ischemic disease. There is vascular calcification of the carotid siphons. The visualized portions of the orbits, paranasal sinuses, and mastoids appear normal. No acute fracture is identified. Nonspecific scattered lymph nodes. Angiographic findings: There is mild atherosclerotic disease of the aortic arch. The configuration of the brachiocephalic vessels is typical. The innominate artery and both calcified plaque in the left reflux segment. Subclavian arteries appear normal. There is mild atherosclerotic disease of theright carotid bifurcation and origin of the right internal carotid artery with less than 50 percent focal stenosis. The right common and internalcarotid arteries otherwise appear normal. There is mild atherosclerotic diseaseof the left carotid bifurcation and origin of the left internal carotid artery with less than 50 percent focal stenosis. The left common and internal carotid arteries otherwise appear normal. The normal-appearing left cervical vertebral artery is dominant and terminates as the basilar artery. The right cervical vertebral artery is diminutive and terminates as the right posterior inferior cerebellar artery. There is atherosclerotic disease involving the distal internal carotid arteries without significant focal stenosis. The anterior and middle cerebral arteries appear normal. . The basilar artery and posterior cerebral arteries appear normal with origin of the left posterior cerebral artery. No aneurysms, vascular occlusions, or intracranial stenoses are identified. Calcified plaque in the left V4 segment. Perfusion findings: No perfusion abnormality is identified. IMPRESSION: 1. No acute intracranial hemorrhage. 2. No large arterial occlusions or significant stenoses identified inthe head or neck. 3. No cerebral perfusion abnormality identified. Dr. Ruben Madrigal have personally reviewed and interpreted this examination/study. This report was electronically signed by Ruben Matthews on 09/12/20171:14 PM . Alesha Aragon MD CT ORDERABLES * CT CEREBRAL PERFUSION ANALYSIS (09/12/2017 9:36 AM CDT) Anatomical Region Laterality Modality Head Computed Tomogra phy 09/12/2017 9:28 AM CDT Impressions 09/12/2017 1:14 PM CDT IMPRESSION: 1. No acute intracranial hemorrhage. 2. No large arterial occlusions or significant stenoses identified in the head or neck. 3. No cerebral perfusion abnormality identified. IDr. Ruben have personally reviewed and interpreted this examination/study. This report was electronically signed by Ruben Matthews ??on 09/12/2017 1:14 PM . Narrative 09/12/2017 1:14 PM CDT EXAMINATION: 1. Computed tomographic (CT) angiography of the head without and with contrast 2. CT angiography of the neck with contrast 3. CT cerebral perfusion HISTORY: R53.1: Weakness TECHNIQUE: CT of the head was performed without contrast according to standard protocol. Then CT angiography of the head and neck and CT cerebral perfusion was obtained after the uneventful administration of 75 mL Isovue-370 intravenous contrast. Three dimensional postprocessing was performed by the technologist and sent to the workstation for review. FINDINGS: No prior study is available for comparison at the time of this dictation. Non-angiographic findings: No acute intra- or extra-axial fluid collections are identified. The ventricles are of normal size, shape, and morphology. The basilar cisterns are patent. No mass effect or midline shift is seen. The templeton-white matter differentiation is normal. Periventricular white matter hypoattenuation is indicative of chronic small vessel ischemic disease. There is vascular calcification of the carotid siphons. The visualized portions of the orbits, paranasal sinuses, and mastoids appear normal. No acute fracture is identified. Nonspecific scattered lymph nodes. Angiographic findings: There is mild atherosclerotic disease of the aortic arch. The configuration of the brachiocephalic vessels is typical. The innominate artery and both calcified plaque in the left reflux segment. Subclavian arteries appear normal. There is mild atherosclerotic disease of the right carotid bifurcation and origin of the right internal carotid artery with less than 50 percent focal stenosis. The right common and internal carotid arteries otherwise appear normal. There is mild atherosclerotic disease of the left carotid bifurcation and origin of the left internal carotid artery with less than 50 percent focal stenosis. The left common and internal carotid arteries otherwise appear normal. The normal-appearing left cervical vertebral artery is dominant and terminates as the basilar artery. The right cervical vertebral artery is diminutive and terminates as the right posterior inferior cerebellar artery. There is atherosclerotic disease involving the distal internal carotid arteries without significant focal stenosis. The anterior and middle cerebral arteries appear normal. . The basilar artery and posterior cerebral arteries appear normal with origin of the left posterior cerebral artery. No aneurysms, vascular occlusions, or intracranial stenoses are identified. Calcified plaque in the left V4 segment. Perfusion findings: No perfusion abnormality is identified. Procedure Note Ruben Matthews MD - 09/12/2017 EXAMINATION: 1. Computed tomographic (CT) angiography of the head without and with contrast 2. CT angiography of the neck with contrast 3. CT cerebral perfusion HISTORY: R53.1: Weakness TECHNIQUE: CT of the head was performed without contrast according to standard protocol. Then CT angiography of the head and neck and CT cerebral perfusion was obtained after the uneventful administration of75 mL Isovue-370 intravenous contrast. Three dimensional postprocessing was performed by the technologist and sent to the workstation for review. FINDINGS: No prior study is available for comparison at the time of this dictation. Non-angiographic findings: No acute intra- or extra-axial fluid collections are identified. The ventricles are of normal size, shape, and morphology. The basilarcisterns are patent. No mass effect or midline shift is seen. The templeton-whitematter differentiation is normal. Periventricular white matter hypoattenuationis indicative of chronic small vessel ischemic disease. There is vascular calcification of the carotid siphons. The visualized portions of the orbits, paranasal sinuses, and mastoids appear normal. No acute fracture is identified. Nonspecific scattered lymph nodes. Angiographic findings: There is mild atherosclerotic disease of the aortic arch. The configuration of the brachiocephalic vessels is typical. The innominate artery and both calcified plaque in the left reflux segment. Subclavian arteries appear normal. There is mild atherosclerotic disease of theright carotid bifurcation and origin of the right internal carotid artery with less than 50 percent focal stenosis. The right common and internalcarotid arteries otherwise appear normal. There is mild atherosclerotic diseaseof the left carotid bifurcation and origin of the left internal carotid artery with less than 50 percent focal stenosis. The left common and internal carotid arteries otherwise appear normal. The normal-appearing left cervical vertebral artery is dominant and terminates as the basilar artery. The right cervical vertebral artery is diminutive and terminates as the right posterior inferior cerebellar artery. There is atherosclerotic disease involving the distal internal carotid arteries without significant focal stenosis. The anterior and middle cerebral arteries appear normal. . The basilar artery and posterior cerebral arteries appear normal with origin of the left posterior cerebral artery. No aneurysms, vascular occlusions, or intracranial stenoses are identified. Calcified plaque in the left V4 segment. Perfusion findings: No perfusion abnormality is identified. IMPRESSION: 1. No acute intracranial hemorrhage. 2. No large arterial occlusions or significant stenoses identified inthe head or neck. 3. No cerebral perfusion abnormality identified. Dr. Ruben Madrigal have personally reviewed and interpreted this examination/study. This report was electronically signed by Ruben Matthews on 09/12/20171:14 PM . Alesha Aragon MD CT ORDERABLES * CT HEAD NON CONTRAST (09/12/2017 9:36 AM CDT) Anatomical Region Laterality Modality Head Computed Tomogra phy 09/12/2017 9:28 AM CDT Impressions 09/12/2017 1:14 PM CDT IMPRESSION: 1. No acute intracranial hemorrhage. 2. No large arterial occlusions or significant stenoses identified in the head or neck. 3. No cerebral perfusion abnormality identified. Dr. Ruben Madrigal have personally reviewed and interpreted this examination/study. This report was electronically signed by Ruben Matthews ??on 09/12/2017 1:14 PM . Narrative 09/12/2017 1:14 PM CDT EXAMINATION: 1. Computed tomographic (CT) angiography of the head without and with contrast 2. CT angiography of the neck with contrast 3. CT cerebral perfusion HISTORY: R53.1: Weakness TECHNIQUE: CT of the head was performed without contrast according to standard protocol. Then CT angiography of the head and neck and CT cerebral perfusion was obtained after the uneventful administration of 75 mL Isovue-370 intravenous contrast. Three dimensional postprocessing was performed by the technologist and sent to the workstation for review. FINDINGS: No prior study is available for comparison at the time of this dictation. Non-angiographic findings: No acute intra- or extra-axial fluid collections are identified. The ventricles are of normal size, shape, and morphology. The basilar cisterns are patent. No mass effect or midline shift is seen. The templeton-white matter differentiation is normal. Periventricular white matter hypoattenuation is indicative of chronic small vessel ischemic disease. There is vascular calcification of the carotid siphons. The visualized portions of the orbits, paranasal sinuses, and mastoids appear normal. No acute fracture is identified. Nonspecific scattered lymph nodes. Angiographic findings: There is mild atherosclerotic disease of the aortic arch. The configuration of the brachiocephalic vessels is typical. The innominate artery and both calcified plaque in the left reflux segment. Subclavian arteries appear normal. There is mild atherosclerotic disease of the right carotid bifurcation and origin of the right internal carotid artery with less than 50 percent focal stenosis. The right common and internal carotid arteries otherwise appear normal. There is mild atherosclerotic disease of the left carotid bifurcation and origin of the left internal carotid artery with less than 50 percent focal stenosis. The left common and internal carotid arteries otherwise appear normal. The normal-appearing left cervical vertebral artery is dominant and terminates as the basilar artery. The right cervical vertebral artery is diminutive and terminates as the right posterior inferior cerebellar artery. There is atherosclerotic disease involving the distal internal carotid arteries without significant focal stenosis. The anterior and middle cerebral arteries appear normal. . The basilar artery and posterior cerebral arteries appear normal with origin of the left posterior cerebral artery. No aneurysms, vascular occlusions, or intracranial stenoses are identified. Calcified plaque in the left V4 segment. Perfusion findings: No perfusion abnormality is identified. Procedure Note Ruben Matthews MD - 09/12/2017 EXAMINATION: 1. Computed tomographic (CT) angiography of the head without and with contrast 2. CT angiography of the neck with contrast 3. CT cerebral perfusion HISTORY: R53.1: Weakness TECHNIQUE: CT of the head was performed without contrast according to standard protocol. Then CT angiography of the head and neck and CT cerebral perfusion was obtained after the uneventful administration of75 mL Isovue-370 intravenous contrast. Three dimensional postprocessing was performed by the technologist and sent to the workstation for review. FINDINGS: No prior study is available for comparison at the time of this dictation. Non-angiographic findings: No acute intra- or extra-axial fluid collections are identified. The ventricles are of normal size, shape, and morphology. The basilarcisterns are patent. No mass effect or midline shift is seen. The templeton-whitematter differentiation is normal. Periventricular white matter hypoattenuationis indicative of chronic small vessel ischemic disease. There is vascular calcification of the carotid siphons. The visualized portions of the orbits, paranasal sinuses, and mastoids appear normal. No acute fracture is identified. Nonspecific scattered lymph nodes. Angiographic findings: There is mild atherosclerotic disease of the aortic arch. The configuration of the brachiocephalic vessels is typical. The innominate artery and both calcified plaque in the left reflux segment. Subclavian arteries appear normal. There is mild atherosclerotic disease of theright carotid bifurcation and origin of the right internal carotid artery with less than 50 percent focal stenosis. The right common and internalcarotid arteries otherwise appear normal. There is mild atherosclerotic diseaseof the left carotid bifurcation and origin of the left internal carotid artery with less than 50 percent focal stenosis. The left common and internal carotid arteries otherwise appear normal. The normal-appearing left cervical vertebral artery is dominant and terminates as the basilar artery. The right cervical vertebral artery is diminutive and terminates as the right posterior inferior cerebellar artery. There is atherosclerotic disease involving the distal internal carotid arteries without significant focal stenosis. The anterior and middle cerebral arteries appear normal. . The basilar artery and posterior cerebral arteries appear normal with origin of the left posterior cerebral artery. No aneurysms, vascular occlusions, or intracranial stenoses are identified. Calcified plaque in the left V4 segment. Perfusion findings: No perfusion abnormality is identified. IMPRESSION: 1. No acute intracranial hemorrhage. 2. No large arterial occlusions or significant stenoses identified inthe head or neck. 3. No cerebral perfusion abnormality identified. I, Dr. Ruben Mhapsekar have personally reviewed and interpreted this examination/study. This report was electronically signed by Ruben Matthews on 09/12/20171:14 PM . Alesha Aragon MD CT ORDERABLES * CREATININE BLOOD - POCT (IP) [facility] (09/12/2017 9:21 AM CDT) Creatinine POCT 0.89 0.3 - 1.3 mg/dL [facility] eGFR POCT 60 60 ml/min [facility] Blood BLOOD SPECIMEN / Unknown 09/12/2017 9:21 AM CDT René Lawrence MD LAB - POINT OF CARE ORDERABLES [facility] [address] [phone]
--- OUTSIDE RECORDS SUMMARY | 2024-04-09 05:14 | XMS_ITS | Encounter Summary ---
Author Organization [facility] Health Address [address] [facility] [place] [address] Care Team Providers Care Rough Rounder Machine Name Role Phone Unavailable Primary Care Provider Unavailabl e Reason for Visit * Reason Comments Weakness pt BIBEMS for R side d weakness and facial droop around 10 pm last night. * Auth/Cert Specialty Diagnoses / Procedures Referred By Devante t Referred To Contact Referral ID Status Reason Start Date Expiration Date Visits Re quested Visits Authorized [id number] 1 1 Encounter Details Date Type Department Care Team (Late st Contact Info) Description 09/12/2017 9:14 AM CDT - 09/15/2017 6:53 PM CDT Hospital Encounter [address] [address] René Lawrence MD [facility] [place] [address] John Carpenter MD [address] [address] Neurology Discharge Disposition: Rehab:Inpatient Social History Tobacco Use Types Packs/Day Years Used Date Smoking Tobacco: Every Day Cigarettes 0.5 45 Started: 1979 Smokeless Tobacco: Never Tobacco Cessation:Ready to Q uit: No; Counseling Given: No Alcohol Use Standard Drinks/Week Comments No 0 (1 standard drink = 0.6 oz pur e alcohol) Sex and Gender Information Value Date Recorded Sex Assigned at Not on file Gender Identity Not on file Sexual Orientation Not on file documented as of this encounter Last Filed Vital Signs Vital Sign Reading Time Taken Comments Blood Pressure 101/57 09/15/2017 4:00 PM CDT Pulse 61 09/15/2017 4:00 PM CDT Temperature 36.8 ??C (98.3 ??F) 09/15/2017 4:00 PM CD T Respiratory Rate 18 09/15/2017 4:00 PM CDT Oxygen Saturation 94% 09/15/2017 4:00 PM CDT Inhaled Oxygen Concentration - - Weight 134.3 kg (296 lb) 09/12/2017 9:15 AM CDT Height 172.7 cm (5' 8 ) 09/12/2017 9:15 AM CDT Body Mass Index 45.01 09/12/2017 9:15 AM CDT documented in this encounter Functional Status Functional Status Response Date of Assess ment Is person deaf or have serious hearing difficult y? No 09/15/2017 Is person blind or have serious difficulty seein g? No 09/15/2017 Does person have serious dif ficulty walking/climbing stairs? Yes 09/15/2017 Does person have difficulty dressing/bathing? Ye s 09/15/2017 Does person have difficulty doing errands alone? Yes 09/15/2017 Cognitive Status Response Date of Assessm ent Does person have difficulty concentrating/remembering/making decisions? No 09/15/2017 documented as of this encounter Discharge Summaries * Jose Hughes MD - 09/15/2017 6:53 PM CDT Physician Discharge Summary Patient ID: Maria Long [id number] y.o. 1960 Admit date: 09/12/2017 Discharge date: 09/15/2017 Admitting Physician: John Carpenter MD Discharge Physician: John Carpenter MD Admission Diagnoses: There are no admission diagnoses documented for this encounter. Discharge Diagnoses: acute left basal ganglia infarct Admission Condition: fair Discharged Condition: good Indication for Admission: right sided weakness and slurred speech Hospital Course: Patient is a 57 year old female with a PMHx of DM recently off metformin who presented to [facility] by EMS for right sided weakness and slurred speech. Last seen normal on 09/11/2017 at 10 pm. Her glucose was 323 by EMS and 426 here at [facility]. Her CTH was negative for any bleeding. CTA didn'tshow LVO. Her NIHSS was 5 (3 for right arm, 1 for facial palsy and 1 for dysarthria). TPA was not given due to being outside the window. Patient was admitted to Stroke service for further evaluation.MRI showed small volume acute left basal ganglia infarct without hemorrhagic conversion. TTE with EF of 65%. No motion abnormalities. Started on ASA and Lipitor for stroke prevention. HbA1c 13.4 was placed on SSI and received Lantus while inpatient. regulatory compliance specialist was consulted. Consults: regulatory compliance specialist Significant Diagnostic Studies: CT Brain No acute intracranial hemorrhage. CTA H & N No large arterial occlusions or significant stenoses identified in the head or neck. No cerebral perfusion abnormality identified on CTP MRI Brain small volume acute left basal ganglia infarct without hemorrhagic conversion Discharge Exam: Cortical Function: MS: Awake, Alert, Follows Commands Oriented to Person, Place and Time Language: Mild dysarthria VF Intact to confrontation test Neglect No visual neglect, No tactile neglect Cranial Nerves: Pupils 4 mm BRTL, Full EOM, Facial sensation intact bilaterally to LT; RUMN facial weakness Palate symmetric; Normal tongue protrusion Motor: Abnormal Movements: None Bulk: Normal Tone: Normal Strength: Appropriate for Age RUE 3/5 LUE 5/5 RLE 4/5 LLE 5/5 DTR: Bi Tri BR Pat Ach Toes R 2 2 2 2 2 Down L 2 2 2 2 2 Down Sensory: Intact to light touch and pin prick Cerebellar: FNF intact bilaterally in left side Gait: Deferred Discharge Dispo: Rehabilitation Medications Current Discharge Medication List START taking these medications Instructions Authorizing Provider aspirin 81 MG chew tablet Commonly known as: ASPIRIN Take 1 tablet by mouth once daily Shmuel Bruno atorvastatin 40 MG tablet Commonly known as: LIPITOR Quantity Dispensed: 30 tablet Take 1 tablet by mouth at bedtime Shmuel Bruno clotrimazole 1 % cream Commonly known as: LOTRIMIN AF Apply to affected area 2 times daily Shmuel Bruno heparin 5000 UNIT/ML injection Inject 1 mL subcutaneously every 8 hours Shmuel rBuno insulin aspart vial Commonly known as: NovoLOG Inject 0-12 Units subcutaneously every 4 hours Shmuel Bruno Signed: Jose Hughes MD 09/16/2017 3:30 PM documented in this encounter Discharge Instructions * Discharge Instructions* Noelle Doe RN - 09/15/2017 3:17 PM CDT Images from the original note were not included. Ischemic Stroke WHAT YOU NEED TO KNOW: An ischemic stroke occurs when blood flow to a part of your brain is blocked. The blockage is usually caused by a blood clot that gets stuck in a narrow blood vessel. When oxygen cannot get to an area of the brain, tissue in that area may get damaged. The damage can cause loss of body functions controlled by that area of the brain. DISCHARGE INSTRUCTIONS: Call 911 for any of the following: ? You have any of the following signs of a stroke: ?? Numbness or drooping on one side of your face ?? Weakness in an arm or leg ?? Confusion or difficulty speaking ?? Dizziness, a severe headache, or vision loss ?? You have a seizure. ?? You feel lightheaded, short of breath, and have chest pain. ?? You cough up blood. ?? You have a severe headache, or loss of balance or coordination. Seek care immediately if: ?? Your arm or leg feels warm, tender, and painful. It may look swollen and red. ?? You have double vision or vision loss. ?? You have unusual or heavy bleeding. Contact your healthcare provider or neurologist if: ?? Your blood pressure is higher or lower than you were told it should be. ?? You have questions or concerns about your condition or care. Warning signs of a stroke: The word F.A.S.T. can help you remember and recognize signs of a stroke: ?? F = Face: One side of the face droops. ?? A = Arms: One arm starts to drop when both arms are raised. ?? S = Speech: Speech is slurred or sounds different than usual. ?? T = Time: A person who is having a stroke needs to be seen immediately. A stroke is a medical emergency that needs immediate treatment. Some medicines and treatments work best if given within a few hours of a stroke. Early treatment can decrease the risk of long-term effects of a stroke. ?? Medicines: You may need any of the following: ?? Thrombolytics help break apart clots. ?? Antiplatelets , such as aspirin, help prevent blood clots. Take your antiplatelet medicine exactly as directed. These medicines make it more likely for you to bleed or bruise. If you are told to take aspirin, do not take acetaminophen or ibuprofen instead. ?? Blood thinners help prevent blood clots. Examples of blood thinners include heparin and warfarin. Clots can cause strokes, heart attacks, and . The following are general safety guidelines to follow while you are taking a blood thinner: ?? Watch for bleeding and bruising while you take blood thinners. Watch for bleeding from your gumsor nose. Watch for blood in your urine and bowel movements. Use a soft washcloth on your skin, and a soft toothbrush to brush your teeth. This can keep your skin and gums from bleeding. If you shave,use an electric shaver. Do not play contact sports. ?? Tell your dentist and other healthcare providers that you take anticoagulants. Wear a bracelet or necklace that says you take this medicine. ?? Do not start or stop any medicines unless your healthcare provider tells you to. Many medicines cannot be used with blood thinners. ?? Tell your healthcare provider right away if you forget to take the medicine, or if you take too much. ?? Warfarin is a blood thinner that you may need to take. The following are things you should be aware of if you take warfarin. ?? Foods and medicines can affect the amount of warfarin in your blood. Do not make major changes to your diet while you take warfarin. Warfarin works best when you eat about the same amount of vitamin K every day. Vitamin K is found in green leafy vegetables and certain other foods. Ask for more information about what to eat when you are taking warfarin. ?? You will need to see your healthcare provider for follow-up visits when you are on warfarin. Youwill need regular blood tests. These tests are used to decide how much medicine you need. ?? Other medicines may be given to treat other health conditions such as high cholesterol, high blood pressure, or diabetes. ?? Take your medicine as directed. Contact your healthcare provider if you think your medicine is not helping or if you have side effects. Tell him or her if you are allergic to any medicine. Keep a list of the medicines, vitamins, and herbs you take. Include the amounts, and when and why you take them. Bring the list or the pill bottles to follow-up visits. Carry your medicine list with you in case of an emergency. Follow up with your healthcare provider or neurologist as directed: You may need to come in for regular tests of your brain function. You may also need regular blood tests. Write down your questions so you remember to ask them during your visits. Self-care: ?? Go to rehabilitation (rehab) as directed. Rehab is an important part of treatment. A speech therapist helps you relearn or improve your ability to talk and swallow. You may start slowly and start doing more difficult tasks over time. Physical therapists can help you gain strength and build endurance. Occupational therapists teach you new ways to do daily activities, such as getting dressed. Therapy can help you improve your ability to walk or keep your balance. Your therapy may include tasksor movements you will need to do for everyday activities. An example is being able to raise or lower yourself from a chair. ?? Make your home safe. Remove anything you might trip over. Tape electrical cords down. Keep pathsclear throughout your home. Make sure your home is well lit. Put nonslip materials on surfaces thatmight be slippery. An example is your bathtub or shower floor. ?? Use walking devices as directed. A cane or walker may help you keep your balance as you walk. What you need to know about depression: Depression can happen after a stroke. Talk to your healthcare provider if you have depression that continues or is getting worse. Your provider may be able to help treat your depression. Your provider can also recommend support groups for you to join. A support group is a place to talk with others who have had a stroke. It may also help to talk to friends and family members about how you are feeling. Tell your family and friends that if they see these signs, to let your healthcare provider know. You may show any of the following signs of depression: ?? Extreme sadness ?? Avoiding social interaction with family or friends ?? A lack of interest in things you once enjoyed ?? Irritability ?? Trouble sleeping ?? Low energy levels ?? A change in eating habits or sudden weight gain or loss Decrease your risk for another stroke: ?? Manage health conditions. Take your medicine as directed. Check your blood pressure and blood sugar levels as directed. Keep a record and bring it to your follow-up visits. ?? Eat a variety of healthy foods. Healthy foods include whole-grain breads, low-fat dairy products, beans, fish, and lean meats. Eat at least 5 servings of fruits and vegetables each day. Choose foods that are low in salt, unhealthy fats (saturated and trans fat), salt, and sugar. Eat foods that are high in potassium, such as potatoes and bananas. Ask your dietitian what other nutrition guidelines you should follow. He or she can help you choose foods that are right for you. ?? Maintain a healthy weight. Ask your healthcare provider how much you should weigh. Ask him or her to help you create a weight loss plan if you are overweight. Ask about the best exercise plan for you. ?? Do not drink alcohol. Alcohol can increase your risk for a stroke. Alcohol may also increase your blood pressure or thin your blood. Blood thinning can increase your risk for hemorrhagic stroke. ?? Do not smoke cigarettes or use illegal drugs. Smoking and drugs increase your risk for a stroke.Nicotine and other chemicals in cigarettes and cigars can also cause lung damage. Ask your healthcare provider for information if you currently smoke or use drugs and need help to quit. E-cigarettes or smokeless tobacco still contain nicotine. Talk to your healthcare provider before you use these pr oducts. For support and more information: ?? National Stroke Association [address] [place] [address] Phone: Web Address: http://www.stroke.org ?? 2017 [employer] Information is for End User's use only and may not be sold, redistributed or otherwise used for commercial purposes. All illustrations and images included in CareNotes?? are the copyrighted property of [employer]. or [employer]. The above information is an educational technician only. It is not intended as medical advice for individual conditions or treatments. Talk to your doctor, nurse or pharmacist before following any medical regimen to see if it is safe and effective for you. Stroke Prevention MACHINE WOODWORKING SANDER: Stroke prevention includes a number of ways that you can decrease your risk for a stroke. Talk to your healthcare provider about your risk for stroke. Create a plan with him to decrease your risk. Know your risk factors: The following are risk factors for a stroke: ?? Age greater than 55 or being -[place] ?? A family history of stroke or heart attack, or a personal history of transient ischemic attacks (TIA) ?? Diabetes or high cholesterol ?? Atrial fibrillation, high blood pressure, or heart disease ?? Smoking cigarettes, excessive use of alcohol, or using drugs such as cocaine ?? Not enough physical activity, or obesity ?? Taking control pills, especially in women older than 35 who smoke cigarettes Stay active: Physical activity for 30 minutes most days of the week can lower your blood pressure, cholesterol, weight, and blood sugar levels. It can also reduce your risk for a stroke. Find an exercise that you enjoy. This will make it easier for you to exercise every day. Ask your healthcare provider about the best exercise plan for you. Follow a heart healthy diet: A heart healthy diet may help control your blood pressure, and preventatherosclerosis or coronary artery disease. It may also help you manage your weight and blood sugarlevels. A heart healthy diet is an eating plan low in total fat, unhealthy fats, and sodium (salt).Limit sodium to less than 2,300 mg each day. Eat plenty of fruits and vegetables. Ask your healthcare provider for more information about a heart healthy diet. Maintain a healthy weight: Being overweight or obese can increase your risk for a stroke. Ask your healthcare provider how much you should weigh. Limit alcohol: Heavy alcohol use can increase your risk for a stroke. Ask your healthcare provider if it is okay for you to drink alcohol. A drink of alcohol is 12 ounces of beer, 5 ounces of wine, or 1?? ounces of liquor. Do not smoke: Nicotine and other chemicals in cigarettes and cigars can cause lung and heart damage. Heart and lung damage can increase your risk for a stroke. Ask your healthcare provider for information if you currently smoke and need help to quit. E-cigarettes or smokeless tobacco still contain nicotine. Talk to your healthcare provider before you use these products. Do not use illegal drugs: The use of cocaine and other illegal drugs can cause a stroke. Talk to your healthcare provider if you currently use cocaine or other drugs and need help to quit. Manage your heart conditions: Management of your blood pressure and heart conditions may reduce your risk for a stroke. Atrial fibrillation (a-fib), an abnormal heart rhythm, can cause blood clots. Blood clots may happen in your brain and cause a stroke. You may need to do the following to manage your blood pressure or heart conditions: ?? Medicine may be needed to lower your blood pressure, prevent blood clots, or control abnormal heart rhythms. You may also need medicine to lower your cholesterol. Talk to your healthcare provider about a daily aspirin or blood thinner to reduce your risk for a blood clot. ?? Regular blood pressure screening will help reduce your risk for stroke. You can monitor your blood pressure at home. Ask your healthcare provider how often to check your blood pressure and what your blood pressure should be. Tell your healthcare provider if your blood pressure is higher than what he says it should be. He may need to change your medicine or help you make changes to your diet or exercise plan. ?? Surgery and other procedures may be needed to remove blockages in your blood vessels and improveblood flow to your heart or brain. Procedures may also be needed to treat a-fib. Manage your sleep apnea: Sleep apnea can cause high blood pressure, heart failure, arrhythmias, heart attack, and stroke. Get screened and treated for sleep apnea. Screening and treatment for sleep apnea may reduce your risk for stroke and other health problems. Talk to your healthcare provider about devices that help prevent complications from sleep apnea. You may need to use a special machine during sleep. The machine will increase your oxygen levels and keep your airways open. Manage your diabetes: Good control of your blood sugar levels may decrease your risk for a stroke. If you take diabetes medicine or insulin, take it as directed. A healthy diet and exercise also helplower your blood sugar levels. Monitor your blood sugars as directed. Keep a record of your blood sugar levels and bring them to your appointments. This will help your healthcare provider make changes to your medicines. It may also help you find ways to get better control of your diabetes. Stroke risk factors for women: ?? The use of control pills may increase your risk for a stroke. Smoking while taking control pills may also increase your risk for a stroke. Talk to your healthcare provider about other forms of contraception. ?? Estrogen levels drop during menopause. Low estrogen levels may increase your risk for stroke. Talk to your healthcare provider about hormone replacement therapy to reduce your risk for a stroke. Talk to your healthcare provider about other medical conditions: Other medical conditions such as anxiety, depression, and sickle cell disease, can increase your risk for a stroke. Depression and anxiety can cause stress on your heart. This may lead to high blood pressure or heart disease. Sickle cell disease, or sickle cell anemia, can cause blockages in blood vessels. If these blockages happen in the blood vessels in your brain, it may cause a stroke. Talk to your healthcare provider about how you can manage these health conditions and decrease your risk for a stroke. Follow up with your healthcare provider as directed: You may need a CT or MRI of your brain to check for problems that may cause stroke. Write down your questions so you remember to ask them during your visits. ?? 2017 [employer] Information is for End User's use only and may not be sold, redistributed or otherwise used for commercial purposes. All illustrations and images included in CareNotes?? are the copyrighted property of [employer]. or [employer]. The above information is an educational technician only. It is not intended as medical advice for individual conditions or treatments. Talk to your doctor, nurse or pharmacist before following any medical regimen to see if it is safe and effective for you. How to Stop Smoking WHAT YOU NEED TO KNOW: You will improve your health and the health of others around you if you stop smoking. Your risk forheart and lung disease, cancer, stroke, heart attack, and vision problems will also decrease. You can benefit from quitting no matter how long you have smoked. DISCHARGE INSTRUCTIONS: Prepare to stop smoking: Nicotine is a highly addictive drug found in cigarettes. Withdrawal symptoms can happen when you stop smoking and make it hard to quit. These include anxiety, depression, irritability, trouble sleeping, and increased appetite. You increase your chances of success if you prepare to quit. ?? Set a quit date. Pick a date that is within the next 2 weeks. Do not pick a day that you think may be stressful or busy. Write down the day or [place] it on your calender. ?? Tell friends and family that you plan to quit. Explain that you may have withdrawal symptoms when you try to quit. Ask them to support you. They may be able to encourage you and help reduce your stress to make it easier for you to quit. ?? Make a list of your reasons for quitting. Put the list somewhere you will see it every day, suchas your refrigerator. You can look at the list when you have a craving. ?? Remove all tobacco and nicotine products from your home, car, and workplace. Also, remove anything else that will tempt you to smoke, such as lighters, matches, or ashtrays. Clean your car, home, and places at work that smell like smoke. The smell of smoke can trigger a craving. ?? Identify triggers that make you want to smoke. This may include activities, feelings, or people.Also write down 1 way you can deal with each of your triggers. For example, if you want to smoke assoon as you wake up, plan another activity during this time, such as exercise. ?? Make a plan for how you will quit. Learn about the tools that can help you quit, such as medicine, counseling, or nicotine replacement therapy. Choose at least 2 options to help you quit. Tools to help you stop smoking: ?? Counseling from a trained healthcare provider can provide you with support and skills to quit smoking. The provider will also teach you to manage your withdrawal symptoms and cravings. You may receive counseling from one counselor, in group therapy, or through phone therapy called a quit line. ?? Nicotine replacement therapy (NRT) such as nicotine patches, gum, or lozenges may help reduce your nicotine cravings. You may get these without a doctor's order. Do not use e-cigarettes or smokeless tobacco in place of cigarettes or to help you quit. They still contain nicotine. ?? Prescription medicines such as nasal sprays or nicotine inhalers may help reduce your withdrawalsymptoms. Other medicines may also be used to reduce your urge to smoke. Ask your healthcare provider about these medicines. You may need to start certain medicines 2 weeks before your quit date for them to work well. ?? Hypnosis is a practice that helps guide you through thoughts and feelings. Hypnosis may help decrease your cravings and make you more willing to quit. ?? Acupuncture therapy uses very thin needles to balance energy channels in the body. This is thought to help decrease cravings and symptoms of nicotine withdrawal. ?? Support groups let you talk to others who are trying to quit or have already quit. It may be helpful to speak with others about how they quit. Manage your cravings: ?? Avoid situations, people, and places that tempt you to smoke. Go to nonsmoking places, such as libraries or restaurants. Understand what tempts you and try to avoid these things. ?? Keep your hands busy. Hold things such as a stress ball or pen. ?? Put candy or toothpicks in your mouth. Keep lollipops, sugarless gum, or toothpicks with you at all times. ?? Do not have alcohol or caffeine. These drinks may tempt you to smoke. Drink healthy liquids suchas water or juice instead. ?? Reward yourself when you resist your cravings. Rewards will motivate you and help you stay positive. ?? Do an activity that distracts you from your craving. Examples include going for a walk, exercising, or cleaning. Prevent weight gain after you quit: You may gain a few pounds after you quit smoking. It is healthier for you to gain a few pounds than to continue to smoke. The following can help you prevent weightgain: ?? Eat healthy foods. These include fruits, vegetables, whole-grain breads, low- fat dairy products,beans, lean meats, and fish. Eat healthy snacks, such as low- fat yogurt, if you get hungry between meals. ?? Drink water before, during, and between meals. This will make your stomach feel full and help prevent you from overeating. Ask your healthcare provider how much liquid to drink each day and which liquids are best for you. ?? Exercise. Take a walk or do some kind of exercise every day. Ask your healthcare provider what exercise is right for you. This may help reduce your cravings and reduce stress. For support and more information: ?? [employer]Sk[employer] Phone: Web Address: www.[employer] ?? 2017 [employer] Information is for End User's use only and may not be sold, redistributed or otherwise used for commercial purposes. All illustrations and images included in CareNotes?? are the copyrighted property of [employer].D.A.M., Inc. or [employer]. The above information is an educational technician only. It is not intended as medical advice for individual conditions or treatments. Talk to your doctor, nurse or pharmacist before following any medical regimen to see if it is safe and effective for you. Type 2 Diabetes in Adults WHAT YOU NEED TO KNOW: Type 2 diabetes is a disease that affects how your body uses glucose (sugar). Normally, when the blood sugar level increases, the pancreas makes more insulin. Insulin helps move sugar out of the blood so it can be used for energy. Type 2 diabetes develops because either the body cannot make enough insulin, or it cannot use the insulin correctly. After many years, your pancreas may stop making insulin. DISCHARGE INSTRUCTIONS: Call 911 for any of the following: ?? You have any of the following signs of a stroke: ?? Numbness or drooping on one side of your face ?? Weakness in an arm or leg ?? Confusion or difficulty speaking ?? Dizziness, a severe headache, or vision loss ?? You have any of the following signs of a heart attack: ?? Squeezing, pressure, or pain in your chest ?? and any of the following: ?? Discomfort or pain in your back, neck, jaw, stomach, or arm ?? Shortness of breath ?? Nausea or vomiting ?? Lightheadedness or a sudden cold sweat Seek care immediately if: ?? You have severe abdominal pain, or the pain spreads to your back. You may also be vomiting. ?? You have trouble staying awake or focusing. ?? You are shaking or sweating. ?? You have blurred or double vision. ?? Your breath has a fruity, sweet smell. ?? Your breathing is deep and labored, or rapid and shallow. ?? Your heartbeat is fast and weak. Contact your healthcare provider if: ?? You are vomiting or have diarrhea. ?? You have an upset stomach and cannot eat the foods on your meal plan. ?? You feel weak or more tired than usual. ?? You feel dizzy, have headaches, or are easily irritated. ?? Your skin is red, warm, dry, or swollen. ?? You have a wound that does not heal. ?? You have numbness in your arms or legs. ?? You have trouble coping with your illness, or you feel anxious or depressed. ?? You have questions or concerns about your condition or care. Medicines: You may need any of the following: ?? Hypoglycemic medicines or insulin may be given to decrease the amount of sugar in your blood. ?? Blood pressure medicine may be given to lower your blood pressure. ?? Cholesterol lowering medicine may be given to prevent heart disease. ?? Antiplatelets , such as aspirin, help prevent blood clots. Take your antiplatelet medicine exactly as directed. These medicines make it more likely for you to bleed or bruise. If you are told to take aspirin, do not take acetaminophen or ibuprofen instead. ?? Take your medicine as directed. Contact your healthcare provider if you think your medicine is not helping or if you have side effects. Tell him or her if you are allergic to any medicine. Keep a list of the medicines, vitamins, and herbs you take. Include the amounts, and when and why you take them. Bring the list or the pill bottles to follow-up visits. Carry your medicine list with you in case of an emergency. Check your blood sugar level as directed: You will be taught how to use a glucose monitor. Ask yourhealthcare provider when and how often to check during the day. You will need to check your blood sugar level at least 3 times each day if you are on insulin. If you check your blood sugar level before a meal , it should be between 80 and 130 mg/dL. If you check your blood sugar level 1 to 2 hours after a meal , it should be less than 180 mg/dL. Ask your healthcare provider if these are good goals for you. Write down your results, and show them to your healthcare provider. He may use the results to make changes to your medicine, food, or exercise schedules. If your blood sugar level is too low: Your blood sugar level is too low if it goes below 70 mg/dL. If the level is too low, eat or drink 15 grams of fast- acting carbohydrate. These are found naturally in fruits. Fast-acting carbohydrates will raise your blood sugar level quickly. Examples of 15 grams of fast-acting carbohydrate are 4 ounces (?? cup) of fruit juice or 4 ounces of regular soda. Other examples are 2 tablespoons of raisins or 3 to 4 glucose tablets. Check your blood sugar level 15 minutes later. If the level is still low (less than 100 mg/dL), eat another 15 grams of carbohydrate. When the level returns to 100 mg/dL, eat a snack or meal that contains carbohydrates. This will help prevent another drop in blood sugar. Always carefully follow your healthcare provider's instructions on how to treat low blood sugar levels. Wear medical alert identification: Wear medical alert jewelry or carry a card that says you have diabetes. Ask your healthcare provider where to get these items. Check your feet each day for sores: Wear shoes and socks that fit correctly. Do not trim your toenails. Ask your healthcare provider for more information about foot care. Maintain a healthy weight: Ask your healthcare provider how much you should weigh. A healthy weightcan help you control your diabetes. Ask your provider to help you create a weight loss plan if you are overweight. Together you can set manageable weight loss goals. Follow your meal plan: A dietitian will help you make a meal plan to keep your blood sugar level steady. Do not skip meals. Your blood sugar level may drop too low if you have taken diabetes medicineand do not eat. ?? Keep track of carbohydrates (sugar and starchy foods). Your blood sugar level can get too high if you eat too many carbohydrates. Your dietitian will help you plan meals and snacks that have the right amount of carbohydrates. ?? Eat low-fat foods , such as skinless chicken and low-fat milk. ?? Eat less sodium (salt). Limit high-sodium foods, such as soy sauce, potato chips, and soup. Do not add salt to food you cook. Limit your use of table salt. You should have less than 2,300 mg of sodium per day. ?? Eat high-fiber foods , such as vegetables, whole grain breads, and beans. ?? Limit alcohol. Alcohol affects your blood sugar level and can make it harder to manage your diabetes. Limit alcohol to 1 drink a day if you are a woman. Limit alcohol to 2 drinks a day if you are a man. A drink of alcohol is 12 ounces of beer, 5 ounces of wine, or 1?? ounces of liquor. Exercise as directed: Exercise can help keep your blood sugar level steady, decrease your risk of heart disease, and help you lose weight. Stretch before and after you exercise. Exercise for at minutes every week. Spread this amount of exercise over at least 3 days a week. Do not skip exercise more than 2 days in a row. Include muscle strengthening activities 2 to 3 days each week. Older adults should include balance training 2 to 3 times each week. Activities that help increase balance include yoga and nikki chi. Work with your healthcare provider to create an exercise plan. ?? Check your blood sugar level before and after exercise. Healthcare providers may tell you to change the amount of insulin you take or food you eat. If your blood sugar level is high, check your blood or urine for ketones before you exercise. Do not exercise if your blood sugar level is high and you have ketones. ?? If your blood sugar level is less than 100 mg/dL, have a carbohydrate snack before you exercise.Examples are 4 to 6 crackers, ?? banana, 8 ounces (1 cup) of milk, or 4 ounces (?? cup) of juice. Drink water or liquids that do not contain sugar before, during, and after exercise. Ask your dietitian or healthcare provider which liquids you should drink when you exercise. ?? Do not sit for longer than 30 minutes. If you cannot walk around, at least stand up. This will help you stay active and keep your blood circulating. Do not smoke: Nicotine and other chemicals in cigarettes and cigars can cause lung damage and make it more difficult to manage your diabetes. Ask your healthcare provider for information if you currently smoke and need help to quit. Do not use e-cigarettes or smokeless tobacco in place of cigarettes or to help you quit. They still contain nicotine. Check your blood pressure as directed: A normal blood pressure is 119/79 or lower. A normal blood pressure can help prevent certain complications from diabetes. Examples include retinopathy (eye damage) and kidney damage. Talk to your healthcare provider about your blood pressure goals. Together you can create a plan to lower your blood pressure if needed and keep it in a healthy range. The plan may include lifestyle changes or medicines to lower your blood pressure. Ask about vaccines: You have a higher risk for serious illness if you get the flu, pneumonia, or hepatitis. Ask your healthcare provider if you should get a flu, pneumonia, or hepatitis B vaccine, and when to get the vaccine. Follow up with your healthcare provider as directed: You may need to return to have your A1c checked every 3 months. You will need to return at least once each year to have your feet checked. You will need an eye exam once a year to check for retinopathy. You will also need urine tests every year to check for kidney problems. You may need tests to monitor for heart disease such as an EKG, stress test, blood pressure monitoring, and blood tests. Write down your questions so you remember to ask them during your visits. ?? 2017 [employer] Information is for End User's use only and may not be sold, redistributed or otherwise used for commercial purposes. All illustrations and images included in CareNotes?? are the copyrighted property of [employer] or [employer]. The above information is an educational technician only. It is not intended as medical advice for individual conditions or treatments. Talk to your doctor, nurse or pharmacist before following any medical regimen to see if it is safe and effective for you. documented in this encounter Medications at Time of Discharge Medication Sig Dispensed Refills Start Date End Date clotrimazole (LOTRIMIN AF) 1 % cream Apply to affected area 2 times daily 09/15/2017 aspirin (ASPIRIN) 81 MG chew tablet Take 1 tablet by mouth once daily 09/16/2017 10/24/2022 atorvastatin (LIPITOR) 40 MG tablet Take 1 tablet by mouth at bedtime 30 tablet 3 09/15/2017 10/24/2022 heparin 5000 UNIT/ML injection Inject 1 mL subcutaneously every 8 hours 09/15/2017 10/24/2022 insulin aspart (NOVOLOG) vial Inject 0-12 Units subcutaneously every 4 hours 09/15/2017 10/28/2022 documented as of this encounter Progress Notes * Sigrid Evans, PASTRYCOOK'S ASSISTANT - 09/15/2017 5:54 PM CDT 09/15/17 1700 PHQ-9 Over the past two weeks, how often have you been bothered by any of the following problems? Little interest or pleasure in doing things 0 Feeling down, depressed, or hopeless 0 Trouble falling or staying asleep, or sleeping too much 0 Feeling tired or having little energy 0 Poor appetite or overeating 0 Feeling bad about yourself - or that you are a failure or have let yourself or your family down 0 Trouble concentrating on things, such as reading the newspaper or watching television 0 Moving or speaking so slowly that other people could have noticed. Or the opposite -- being so fidgety or restless that you have been moving around a lot more than usual 0 Thoughts that you would be better off , or of hurting yourself in some way 0 PHQ9 TOTAL SCORE 0 Results/Impressions: 1. SW met with patient at bedside on 09/15/2017 and administered this PHQ-9 Depression Screening. 2. Patient scored a total of 0, indicating no presence of depression symptoms. 3. Patient reported having some worry over not having insurance. 4. Patient did not appear to be a danger to herself or others and seem to have a great support system. 5. Patient was educated on how to report signs and symptoms of depression if they develop. 6. No further intervention is required at this time. BERNADETTE Christine 09/15/2017 5:57 PM *[id number] * Sigrid Evans MSW - 09/15/2017 5:28 PM CDT Facility Transfer Note Level of Care: Inpatient Acute Rehab Facility Name (include name of person confirming admission): [facility]. [place] Made Aware of Special Needs (if applicable): N/A RN to Please Call Report to: [phone] RN to Please Fax D/C Orders to: [phone] Transportation (company and number): [facility] Certificate of Medical Necessity rationale: CVA; Unable to walk without assist. Date/time of transfer: 09/15/2017, with a scheduled picker tender helper time of 5:15pm. Accepting MD: Dr. Montes Completed and signed DA 124C (if applicable): N/A Family/Other Notified of Transfer (name/phone): SW notified patient and her daughter at bedside of transfer plan and they verbalized agreement. Authorization Skilled Care: Obtained by Facility. Authorization for Transportation: Obtained by transport company. Comments: SW was notified for the first time by [facility] liaison at 2:45pm that patient is approved for transfer to today. Patient is medicaid pending and was accepted on katie by [facility]. Name/Phone number: BERNADETTE Christine, *[id number] * Angella Pickard, LUTHER - 09/15/2017 3:46 PM CDT [facility] Rehab has accepted this patient and she is in agreement be transfered to acute rehab on the [facility] to room [address] Dr[address] Montes is the accepting physician. May fax discharge ORDERS and a copy of the MAR to [phone]. May call REPORT to [phone]. Thank you for the referral. Angella Pickard RN MSN Clinical Liaison [facility] [phone] * Jose Hughes MD - 09/15/2017 11:42 AM CDT Stroke service progress notes Patient: Maria Nolasco (:1960) Room: [address] [place] [address] Subjective: Patient is a 57 year old female with a PMHx of DM on metformin who presented to [facility] by EMS for right sided weakness and slurred speech. Last seen normal on 09/11/2017 at 10 pm. Her glucose was 323 by EMS and 426 here at [facility]. Her CTH was negative for any bleeding. CTA didn't show LVO. Her NIHSS was 5 (3 for right arm, 1 for facial palsy and 1 for dysarthria). TPA was not given due to being outside the window. Patient was admitted to Stroke service for further evaluation. MRI showed small volume acute left basal ganglia infarct without hemorrhagic conversion. TTE with EF of 65%. No motion abnormalities. HbA1c 13.4 Overnight Events: No significant overnight events. CT Brain No acute intracranial hemorrhage. CTA H & N No large arterial occlusions or significant stenoses identified in the head or neck. No cerebral perfusion abnormality identified on CTP MRI Brain small volume acute left basal ganglia infarct without hemorrhagic conversion TTE with EF of 65%. No motion abnormalities EKG/Tele NSR HbA1c 13.4 LDL 80 Objective: Temp: [97.1 ??F (36.2 ??C)-98.1 ??F (36.7 ??C)] 98.1 ??F (36.7 ??C) Pulse: [56-79] 70 Resp: [16-18] 18 BP: (110-131)/(64-78) 115/64 Exam: Cortical Function: MS: Awake, Alert, Follows Commands Oriented to Person, Place and Time Language: Mild dysarthria VF Intact to confrontation test Neglect No visual neglect, No tactile neglect Cranial Nerves: Pupils 4 mm BRTL, Full EOM, Facial sensation intact bilaterally to LT; RUMN facial weakness Palate symmetric; Normal tongue protrusion Motor: Abnormal Movements: None Bulk: Normal Tone: Normal Strength: Appropriate for Age RUE 3/5 LUE 5/5 RLE 4/5 LLE 5/5 DTR: Bi Tri BR Pat Ach Toes R 2 2 2 2 2 Down L 2 2 2 2 2 Down Sensory: Intact to light touch and pin prick Cerebellar: FNF intact bilaterally in left side Gait: Deferred Labs: CBC: Recent Labs Component Name 09/15/17 0304 09/14/17 0353 09/13/17 034 WBC 9.4 10.1 10.5 RBC 4.57 4.67 4.55 HGB 14.4 14.4 14.0 HCT 41.8 42.6 41.7 PLT 208 220 208 BMP: Recent Labs Component Name 09/15/17 0304 09/14/17 0353 09/13/17 034 NA 139 139 140 CL 104 105 105 CO2 27 27 25 BUN 19 17 13 CREATININE 0.6 0.6 0.6 GLU 189* 159* 208* CALCIUM 9.4 9.3 9.0 Magnesium: No results for input(s): MG in the last 34653 hours. Phosphorus: Recent Labs Component Name 09/15/17 0304 09/14/17 0353 09/13/17 034 PHOS 4.0 3.9 3.2 Coagulation: Recent Labs Component Name 09/12/17 0951 PT 13.0 INR 1.0 PTT 25.7 @liver function tests Lab results smartLinks are not currently available Lab results smartLinks are not currently available Lab results smartLinks are not currently available Cardiac markers: ) Recent Labs Component Name 09/12/17 1000 09/12/17 0951 09/12/17 0943 TROPONINI <0.010 - <0.010 BNP - <10 - Medications: Current Facility-Administered Medications Medication ??? aspirin (ASPIRIN) chew tablet 81 mg ??? clotrimazole (LOTRIMIN AF) 1 % cream ??? perflutren Lipid Microsphere (DEFINITY) injection SUSP 0.5 mL ??? atorvastatin (LIPITOR) tablet 40 mg ??? labetalol (NORMODYNE; TRANDATE) injection 10 mg Or ??? labetalol (NORMODYNE; TRANDATE) injection 20 mg Or ??? hydrALAZINE (APRESOLINE) injection 10 mg ??? heparin injection 5,000 Units ??? glucose (Diabetic Use) oral gel ??? dextrose IV 12.5-25 g ??? glucagon (GLUCAGEN) injection 1 mg ??? insulin aspart (NovoLOG) vial 0-12 Units Problem List: Patient Active Problem List Diagnosis ??? Cerebrovascular accident (CVA) due to occlusion of cerebral artery Assesment and Plan: Left ischemic stroke- Left basal ganglia infarct Mechanism: Likely SMV ?? Plan: -ASA 81 mg for stroke prevention -Lipitor 40 mg qhs for stroke prevention -SSI/Accuchecks -PRN Hydralazine and Labetalol -Neurochecks -Tele while inpatient -TTE with EF of 65%. No motion abnormalities -Lipitor 40 mg qhs -PT/OT/COMBER FIXER/SW -Daily CBC, CMP, Mag and phsoph ? Core Measures: ?? tPA administration: no Anti-thrombotic: ASA: yes Statin; Lipitor 40 mg qhs DVT prophylaxis; Heparin SQ: Yes Subq heparin and SCDs Swallow Evaluation: Passed PT/OT Evaluation: Acute rehab Smoking cessation; will bereavement counselor: No ?? Individual Modifiable Risk Factors: ?? Hypertension: no Hyperlipidemia: Yes Diabetes: yes Atrial Fibrillation: no Tobacco: no ? Patient was seen and examined with Dr. Carpenter, stroke attending Jose Hughes MD, MD PGY-2, Neurology 09/15/2017 11:43 AM Associated attestation - John Carpenter MD - 09/15/2017 3:45 PM CDT I saw this patient with the resident team today. I reviewed the interval history, labs, presentation, confirmed the kirk elements of examination as noted in the resident's note. I agree with the assessment and plan. In addition, I note this 57 y/o woman hx of DM, recently off metformin due to insurance reasons waslkw 10 pm and this AM was noted to have right sided weakness with dysarthria following which evaluated for acute stroke, initial NIHSS 5, tPA not administered due to delayed presentation, while no LVO noted on CTA. Initial blood sugar in 400s. F/u MR brain with left capsular infarct. O/N: no events Temp Min: 97.1 ??F (36.2 ??C) Max: 98.5 ??F (36.9 ??C), Pulse Min: 56 Max: 87, Resp Min: 16 Max: 21, BP Min: 93/50 Max: 158/85 AAO x self, location, situation, mild dysarthria (improving), language wnl otherwise, EOMI, RUMN facial weakness, right hemiparesis (UE, weakly against gravity> LE, against gravity) Noted to have semi-raised skin rashes on extremities, long-standing per patient, stable Recent Labs Component Name 09/15/17 0304 09/14/17 0353 HGB 14.4 14.4 HCT 41.8 42.6 MCV 91.5 91.2 PLT 208 220 Recent Labs Component Name 09/15/1730309/14/17 0353 NA 139 139 CL 104 105 CO2 27 27 BUN 19 17 CREATININE 0.6 0.6 CALCIUM 9.4 9.3 PHOS 4.0 3.9 Recent Labs Component Name 09/15/17 0304 ALT 11 AST 12 ALKPHOS 88 TBILI 0.5 ALB 3.0* No results for input(s): A1C in the last 55349 hours. Recent Labs Component Name 09/12/17 1000 CHOL 188 HDL 28* LDLCALC 80 TRIG 400* aspirin 81 mg Oral QDAY clotrimazole Topical BID perflutren Lipid Microsphere 0.5 mL Intravenous intra-Procedure multiple atorvastatin 40 mg Oral AT BEDTIME heparin 5,000 Units Subcutaneous q8h insulin aspart 0-12 Units Subcutaneous q4h I/P Stroke: Likely small vessel, atherosclerotic disease Continue secondary stroke prophylaxis TTE wnl COMBER FIXER, PT, OT, ADAT, Lantus 40 u today SCDs, SC heparin Counseled patient re: smoking cessation and improved diet Clotrimazole re: skin rash SW consult re: placement- acute rehab John Carpenter MD 09/15/2017 3:40 PM * Steffany Almaraz - 09/15/2017 10:58 AM CDT [facility] Occupational Therapy Progress Note Patient: Maria Nolasco Med Record Number: [id number] Date of : 1960 Age: 57 y.o. Recommendation: Recommendation: Patient will benefit from intense 3 hour per day multidisciplinary inpatient therapies Treatment Interventions: ADL retraining;Functional transfer training;UE strengthening/ROM;Patient/Family training;Neuro muscular reeducation Need Tech Assist: Yes OT Patient: Yes Plan: OT Frequency: 7 Times/Week Precautions: Subjective: Patient reports I feel okay , agreeable to therapy. Patient daughter in room. At start of therapy session, patient found in patient bedside chair and with chair alarm on. Pain: Patient reports no pain this date. Activities of Daily Living Feeding:Not tested Grooming/Bathing: Minimal assist for set up to complete facial and body hygiene seated EOB, mod assist to use R UE in hygiene tasks Upper Extremity Dressing: Minimal assist to fasten gown seated EOB Lower Extremity Dressing: not tested Toileting/Transfers: not tested Mobility: Assist device: Tristan Cane Supine to/from Sit:Minimal assist of 2 Sit to/from Stand: Moderate assist of 2 Bed to/from Chair: Moderate assist of 2 Functional Mobility: From bed to chair with Moderate assist of 2, patient requires R knee block during mobility, min physical/verbal cueing to advance R LE Splint Issued/Checked: none Splint Check Completed: N/A Balance: Static Sitting: good Dynamic Sitting: fair minus, patient demonstrates mild R posterior lean with UE movement sitting EOB, able to self correct with min verbal cues Static Standing: poor Dynamic Standing: poor Activity Tolerance: Patient's activity tolerance: fair, Patient requests to return to supine in bed post treatment, instead of returning to bedside chair 2/2 fatigue. Modified [place] Scale: Moderate severe disability, unable to walk without assistance and unable to attend to own bodily needs without assistance Cognitive/Perceptual: Patient A&O x4, has fair+ safety awareness, and good insight to deficits.Patient follows 100% of multi-step commands and is appropriate in conversation. Patient demonstrates good carryover of tristan techniques, is motivated to participate in therapy and has pleasant affect t hroughout session. Treatment/Therapeutic Exercise: Treatment session this date focused on ADL training Functional transfer training Endurance training Safety awareness Patient/Family Teaching: Exercise, Mobility and Self care Patient complete L UE AROM, R UE AAROM with assist from L UE and therapist shoulder flexion/extension, elbow flexion/extension, wrist flexion/extension, composite digit flexion/extension x10. Patient completes dynamic reaching activity in all planes with L UE and R UE with assist from L UE x5. Equipment Issued: none Update Treatment Plan/Goals : Patient continues to benefit from skilled OT to improve independence with activities of daily living, increase strength, endurance, range of motion and decrease pain. Will continue per POC. Short Term Goals: Patient will perform lower extremity dressing ??With min assist Patient will perform sit to stand ??With min assist Patient will perform bed to chair ??With min assist Patient will tolerate AROM ?10 reps and with good endurance Patient will tolerate treatment ??15 minutes and with fair + endurance ? [facility] Goal: Patient to discharge to appropriate next level of inpatient care If patient is discharged from the facility, this note serves as a discharge note if further occupational therapy visits did not occur. Following therapy session, patient left in bed, with bed alarm on, with call light within reach andwith family in room. PILAR Hartley * Isabel Wells, PT - 09/15/2017 10:57 AM CDT [facility] Medicine and Rehabilitation PhysicalTherapy Progress Note Patient: Maria Nolasco Med Record Number: [id number] Date of : 1960 Age: 57 y.o. Discharge Recommendation: Recommendation: Patient will benefit from intense 3 hour per day multidisciplinary inpatient therapies Plan: Treatment/Interventions: Functional transfer training;Patient/family training;Gait training;Bed mobility PT Frequency: 7 Times/Week Need Tech Assist: Yes PT Weekend Patient: Yes Subjective: states she is ready to work Patient currently using Tristan Cane and needs equipment if d/c home. Mental Status: A&Ox3; neglect and decreased safety awareness At start of therapy session, patient found in bed and with bed alarm on. Pain: Patient has 0 out of 10 pain. Nurse notified. Weight Bearing Status: WBAT Mobility: Rolling: Minimal assist Supine to Sit:Minimal assist of 1 Sit to Supine: NT Sit to Stand:Moderate assist of 2 first trial; subsequent trials mod x1 and min x 1 Bed to Chair: mod x 2 Gait: Device:Tristan Cane Assistance: Moderate assist of 2 Distance: 5 steps L and then 5 steps R alongside bed; second trial small steps and pivot from bed to chair; third trial 6 feet forward Deviations: needs cues to move R LE; barely moves R LE; cues for tristan cane use and position; needs cues to stand upright Oxygen Used: no Balance: Able to sit EOB with sbx1; tends to lose balance to R or posterior Static Sitting: good minus Dynamic sitting: fair plus Static Standing: poor Dynamic Standing: poor Stairs: NT Vitals: No c/o dizziness or SOB during mobility or treatment Activity Tolerance: Patient's activity tolerance: good Modified Rachel Scale: Moderate severe disability, unable to walk without assistance and unable to attend to own bodily needs without assistance Treatment/therapeutic Exercise: bed mobility, transfer, standing static balance, standing weight shifting; gait training; general LE AROM exercises bilat x 10 reps; seated AAROM for forward flexion and curls for R UE with pt using R UE and min cues Patient/Family Teaching: Exercise and Mobility Patient demonstrated Fair understanding of instructions given. Short Term Goals: Goal Formation With patient, Patient will transfer supine to/from sit With minimal assist, Sit to stand goal: With minimal assist and With assist of 2, Patient will perform rolling With stand by assist, Patient will transfer bed to/from chair With minimal assist and With assist of 2, Patient will ambulate 31-50 feet, With moderate assist and With assistive device, Patient will demonstrate standing balance Fair and + and Patient will sit on edge of bed 6-10 min and Independently ? [facility] Goal(s): Patient to discharge to appropriate next level of inpatient care Update Treatment Plan: continue If patient is discharged from the facility, this note serves as a discharge note if further physical therapy visits did not occur. Following therapy session, patient left in patient bedside chair, with chair alarm on, with call light within reach, with family in room, with Noelle SLOAN aware and with RN/CP rehab cues written on white board. Isabel Wells, PT 09/15/2017 * Sigrid Evans MSW - 09/15/2017 8:40 AM CDT Care Coordination Initial Assessment Case Management screen completed, welcome letter given. Met with patient; her son; and [id number] at bedside on 09/14/2017 and completed this SALES MANAGER. Lives with Spouse Emergency Contact: neville Morrow, at [phone]. Prior Level of Functioning: Physical Limitations: None Requires assistance with:: (TBD.) Discharge Plan: Patient is recommended for Inpatient Acute Rehab. SW discussed recommendation with patient and she verbalized agreement to transferring to [facility]. SW has initiated the referral process with [facility] liaison, who will be making contact with patient and her family. As of time of this note, patient has not been medically cleared for discharge. Anticipated level of care at discharge: Acute Rehab Facility Anticipated Discharge Date: 09/22/17 Transportation at discharge: Ambulance Transportation to MD appointments: Self; Family Equipment at Home: Cane-Straight Equipment Provider: N/A PCP: Blaine Bernstein MD Pharmacy benefit: Yes. If no, action taken: Pharmacy: Any If patient requires HHC at discharge, he/she requests: N/A Comments: SW explained role and the discharge planning process. Patient confirmed that, she is uninsured. SW sent request to [facility] to start a medicaid application on 09/14/17. Psychosocial: Patient denied experiencing any abuse. Patient denied having any problems with drugs and/or alcohol. ZIGGY will continue to follow. For any questions or needs please contact: Food Service Manager Name/Phone number: BERNADETTE Christine, Phone: *[phone] 09/15/2017 * Sigrid Evans MSW - 09/14/2017 6:11 PM CDT ZIGGY met with patient; her son, Cristhian; and [id number] at bedside and completed the SALES MANAGER. ZIGGY will complete documentation on 09/15/2017. BERNADETTE Christine 09/14/2017 6:12 PM * Shmuel Bruno APRN-TUBE MOUNTER - 09/14/2017 2:55 PM CDT Interdisciplinary Team Conference Date of Admission: 09/12/2017 Reason for Admission: There are no admission diagnoses documented for this encounter. Patient Name: Maria Nolasco Weight: 296 lb Current Facility-Administered Medications Medication ??? aspirin (ASPIRIN) chew tablet 81 mg ??? clotrimazole (LOTRIMIN AF) 1 % cream ??? atorvastatin (LIPITOR) tablet 40 mg ??? labetalol (NORMODYNE; TRANDATE) injection 10 mg Or ??? labetalol (NORMODYNE; TRANDATE) injection 20 mg Or ??? hydrALAZINE (APRESOLINE) injection 10 mg ??? heparin injection 5,000 Units ??? glucose (Diabetic Use) oral gel ??? dextrose IV 12.5-25 g ??? glucagon (GLUCAGEN) injection 1 mg ??? insulin aspart (NovoLOG) vial 0-12 Units Room/Bed: [address] [place] [address] Heater Tender: Sigrid Evans Patient Status: Lives with:: Spouse;Daughter;Other (Comment) Prior to admission level of care: Unknown Prior to admit provider: None Anticipated level of care at discharge: Unknown Anticipated level of care provider: None Patient's Current Condition: Continues to have R weakness Patient and Family Goals of Care: rehab Anticipated Discharge Date: Supervision Required at Discharge: Intermittent Equipment Needed: Tristan Greer Barriers to Achieving Goals: further testing and placement Medical Barriers: TTE pending Team Recommendations: rehab Unresolved issues and follow-up plan: 2-3 months Financial: no insurance - Medicaid application in progress Plan of Care Reviewed: no Plan of Care Updated: no Staff Present: Chief Dispatcher Service: Heater Tender: Sigrid Evans Surgery Nurse: Agueda Peter Nurse Flight Engineer Instructor: Nurse: Physician/Designee: Shmuel Bruno Nutrition: Anna Hester Therapy: Alka Vargas Palliative Care: Patient/Family: Other: Guillermo Grey - Pharmacy Documented by GUILHERME Hess * Isabel Wells, PT - 09/14/2017 11:20 AM CDT [facility] Physical Medicine and Rehabilitation PhysicalTherapy Progress Note Patient: Maria Nolasco Med Record Number: [id number] Date of : 1960 Age: 57 y.o. Discharge Recommendation: Recommendation: Patient will benefit from intense 3 hour per day multidisciplinary inpatient therapies Plan: Treatment/Interventions: Functional transfer training;Patient/family training;Gait training;Bed mobility PT Frequency: 7 Times/Week Need Tech Assist: Yes PT Weekend Patient: Yes Subjective: states she worked with OT earlier Patient currently using Tristan Cane and needs equipment if d/c home. Mental Status: A&Ox3; neglect and decreased safety awareness At start of therapy session, patient found in bed and with bed alarm on. Pain: Patient has 0 out of 10 pain. Nurse notified. Weight Bearing Status: WBAT Mobility: Rolling: Minimal assist Supine to Sit:Minimal assist of 1 Sit to Supine: Minimal assist of 1 Sit to Stand:Moderate assist of 2 first trial; subsequent trials mod x1 and min x 1 Bed to Chair: not tested Gait: Device:Tristan Cane Assistance: Moderate assist of 2 Distance: 5 steps L and then 5 steps R alongside bed; 2 trials of this Deviations: needs cues to move R LE; barely moves R LE; cues for tristan cane use and position; needs cues to stand upright Oxygen Used: no Balance: Able to sit EOB with sb/minx1; tends to lose balance to R or posterior Static Sitting: good minus Dynamic sitting: fair Static Standing: poor Dynamic Standing: poor Stairs: NT Vitals: No c/o dizziness or SOB during mobility or treatment Activity Tolerance: Patient's activity tolerance: good Modified Wyandot Scale: Moderate severe disability, unable to walk without assistance and unable to attend to own bodily needs without assistance Treatment/therapeutic Exercise: bed mobility, transfer, standing static balance, standing weight shifting; gait training; general LE AROM exercises bilat x 10 reps; seated AAROM for forward flexion and curls for R UE with pt using R UE and min cues Patient/Family Teaching: Exercise and Mobility Patient demonstrated Fair understanding of instructions given. Short Term Goals: Goal Formation With patient, Patient will transfer supine to/from sit With minimal assist, Sit to stand goal: With minimal assist and With assist of 2, Patient will perform rolling With stand by assist, Patient will transfer bed to/from chair With minimal assist and With assist of 2, Patient will ambulate 31-50 feet, With moderate assist and With assistive device, Patient will demonstrate standing balance Fair and + and Patient will sit on edge of bed 6-10 min and Independently ? [facility] Goal(s): Patient to discharge to appropriate next level of inpatient care Update Treatment Plan: continue If patient is discharged from the facility, this note serves as a discharge note if further physical therapy visits did not occur. Following therapy session, patient left in bed, with bed alarm on, with call light within reach, with RNRafaela aware and with RN/CP rehab cues written on white board. Isabel Wells, PT 09/14/2017 * Steffany Almaraz - 09/14/2017 10:05 AM CDT [facility] Physical Medicine and Rehabilitation Occupational Therapy Progress Note Patient: Maria Nolasco Med Record Number: [id number] Date of : 1960 Age: 57 y.o. Recommendation: Recommendation: Patient will benefit from intense 3 hour per day multidisciplinary inpatient therapies Treatment Interventions: ADL retraining;Functional transfer training;UE strengthening/ROM;Patient/Family training;Neuro muscular reeducation Need Tech Assist: Yes OT Weekend Patient: Yes Plan: OT Frequency: 7 Times/Week Precautions: Subjective: Patient reports I feel fine , agreeable to therapy. At start of therapy session, patient found in bed and with bed alarm on. Pain: Patient reports no pain this date. Activities of Daily Living Feeding:Not tested Grooming/Bathing: Minimal assist for set up to complete facial and body hygiene sitting EOB, mod assist to complete upperbody hygiene with R UE, min verbal cueing to complete hygiene tasks with R UE Upper Extremity Dressing: Minimal assist (to tie/untie) to don/doff gown sitting EOB, mod verbal cueing to use tristan-dressing technique Lower Extremity Dressing: Max assist to don/doff socks sitting EOB Toileting/Transfers: not tested Mobility: Assist device: HOT DIE PRESS FEEDER x2 Supine to/from Sit:Minimal assist of 2 Sit to/from Stand: Moderate assist of 2 Bed to/from Chair: not tested Functional Mobility: From head of bed to foot of bed x3 with min-Moderate assist of 2 Splint Issued/Checked: none Splint Check Completed: N/A Balance: Static Sitting: fair minus Dynamic Sitting: fair minus Static Standing: poor plus Dynamic Standing: poor Activity Tolerance: Patient's activity tolerance: fair. Patient demonstrates SOB periodically throughout treatment, instructed in PLB, able to return to normal breathing pattern. Modified Wyandot Scale: Moderate severe disability, unable to walk without assistance and unable to attend to own bodily needs without assistance Cognitive/Perceptual: Patient A&O x4, has good safety awareness, and fair+ insight to deficits.Patient follows 100% of multi-step commands and is appropriate in conversation. Patient becomes tearful when using R UE in dressing task, emotional support provided, patient is motivated throughout entire treatment. Treatment/Therapeutic Exercise: Treatment session this date focused on ADL training Functional transfer training Endurance training Safety awareness Patient/Family Teaching: Exercise, Mobility, Self care Patient completed L UE AROM, R UE AAROM with assist from L UE shoulder flexion/extension, elbow flexion/extension x10, L UE AROM, R UE AAROM with assist from therapist composite digit flexion/extension x10 sitting EOB. Equipment Issued: none Update Treatment Plan/Goals : Patient continues to benefit from skilled OT to improve independence with activities of daily living, increase strength, endurance, range of motion and decrease pain. Will continue per POC. Short Term Goals: Patient will perform lower extremity dressing With min assist Patient will perform sit to stand With min assist Patient will perform bed to chair With min assist Patient will tolerate AROM 10 reps and with good endurance Patient will tolerate treatment 15 minutes and with fair + endurance ? Trimmer And Borer Machine Operator Goal: Patient to discharge to appropriate next level of inpatient care If patient is discharged from the facility, this note serves as a discharge note if further occupational therapy visits did not occur. Following therapy session, patient left in bed, with bed alarm on and with call light within reach. PILAR Hartley * Lei Carpenter MD - 09/14/2017 8:52 AM CDT Stroke Progress Note Patient: Maria Nolasco (:1960) Room: [address] [place] [address] Subjective: Maria Nolasco is a 57 y.o. female admitted on 09/12 due to right sided weakness and speech difficulties. Course of hospital stay is summarized as followed: Last seen normal at 2200 on 09/11/2017. Thepatient presented to ER at 0915 on 09/12 with above symptoms. NIHSS score was 5. tPA was not administered Smoking status: yes. Antithrombotics at home: none. No significant overnight events. CT Brain NAICP CTA H & N No vessel occlusion MRI Brain left grant radiata/IC infarction TTE pending EKG NSr HbA1c 13.4 LDL 80 Objective: BP 109/63 Pulse 63 Temp 98 ??F (36.7 ??C) Resp 18 Ht 5' 8 Wt 296 lb SpO2 95% BMI 45.01 kg/m2 Exam: General appearance: alert, well appearing, and in no distress. Cortical Function: MS: Awake, Alert, Follows Commands Oriented to Person, Place and Time Language: Fluent, Coherent, Repetition Intact VF Intact to confrontation test Neglect No visual neglect, No tactile neglect Cranial Nerves: Pupils 3 mm BRTL, Full EOM, No ptosis or nystagmus Facial sensation intact bilaterally to LT; RUMN facial palsy Motor: Abnormal Movements: None Bulk: Normal Tone: Normal Strength: Appropriate for Age RUE 3/5 LUE 5/5 RLE 4/5 LLE 5/5 DTR: Symmetric Sensory: Intact to light touch, pin prick on both sides Cerebellar: FNF intact bilaterally Gait: Deferred Problem List: Patient Active Problem List: Cerebrovascular accident (CVA) due to occlusion of cerebral artery Assesment and Plan: Left Grant Radiata/ Internal Capsule: - Lacunar infarction - Continue ASA, Statin - Target Normotension - PT/OT - Passed swal eval - Echo is pending DM- Uncontrolled, non compliance - Accu checks in 200s - Received lantus 20 U yesterday, PRN Insulin 14 U - will give Lantus 30 U today, keep sliding scale Case findings discussed with Dr. Carpenter, Neurology Attending. Lei Carpenter MD Neurology Resident Associated attestation - John Carpenter MD - 09/14/2017 2:27 PM CDT I saw this patient with the resident team today. I reviewed the interval history, labs, presentation, confirmed the kirk elements of examination as noted in the resident's note. I agree with the assessment and plan. In addition, I note this 57 y/o woman hx of DM, recently off metformin due to insurance reasons waslkw 10 pm and this AM was noted to have right sided weakness with dysarthria following which evaluated for acute stroke, initial NIHSS 5, tPA not administered due to delayed presentation, while no LVO noted on CTA. Initial blood sugar in 400s. F/u MR brain with left capsular infarct. O/N: no events Temp Min: 97.6 ??F (36.4 ??C) Max: 98.5 ??F (36.9 ??C), Pulse Min: 58 Max: 87, Resp Min: 16 Max: 21, BP Min: 93/50 Max: 158/85 Working with therapy at bedside AAO x self, location, situation, mild dysarthria, language wnl otherwise, EOMI, RUMN facial weakness, right hemiparesis (UE, weakly against gravity> LE, against gravity) Noted to have semi-raised skin rashes on extremities, long-standing per patient Recent Labs Component Name 09/14/17 0353 09/13/17 0342 HGB 14.4 14.0 HCT 42.6 41.7 MCV 91.2 91.6 PLT 220 208 Recent Labs Component Name 09/14/17 0353 09/13/17 0342 NA 139 140 CL 105 105 CO2 27 25 BUN 17 13 CREATININE 0.6 0.6 CALCIUM 9.3 9.0 PHOS 3.9 3.2 Recent Labs Component Name 09/14/17 0353 ALT 11 AST 12 ALKPHOS 88 TBILI 0.5 ALB 3.0* No results for input(s): A1C in the last 59146 hours. Recent Labs Component Name 09/12/17 1000 CHOL 188 HDL 28* LDLCALC 80 TRIG 400* aspirin 81 mg Oral QDAY clotrimazole Topical BID atorvastatin 40 mg Oral AT BEDTIME heparin 5,000 Units Subcutaneous q8h insulin aspart 0-12 Units Subcutaneous q4h I/P Stroke: Likely small vessel, atherosclerotic disease Continue secondary stroke prophylaxis F/u TTE COMBER FIXER, PT, OT, ADAT, Lantus 30 u today SCDs, SC heparin Counseled patient re: smoking cessation SW consult re: placement- acute rehab John Carpenter MD 09/14/2017 2:26 PM * Isabel Wells, PT - 09/13/2017 9:53 AM CDT [facility] Department of Physical Medicine & Rehabilitation Progress Note Patient: Maria Nolasco Med Record Number: [id number] Date of : 1960 Age: 57 y.o. 09/13/17 0900 Author/Specialty Author / Specialty Physical Therapy Modified Wyandot Scale (To Be Completed by Therapists) Assessment Interval Initial Modified Wyandot Scale 4 Evaluation Status PT initial evaluation done Yes * Isabel Wells, PT - 09/13/2017 9:44 AM CDT [facility] Physical Medicine and Rehabilitation PhysicalTherapy Initial Evaluation Note Patient: Maria Nolasco [facility] Record Number: [id number] Date of : 1960 Age: 57 y.o. Recommendation: PT Frequency: 7 Times/Week Treatment/Interventions: Functional transfer training;Patient/family training;Gait training;Bed mobility Recommendation: Patient will benefit from intense 3 hour per day multidisciplinary inpatient therapies Need Tech Assist: Yes PT Weekend Patient: Yes Patient currently using no assistive device. Nurse and Occupational Therapy contacted regarding patient status and/or discharge plan. Physician Orders: Evaluation and Treat PRECAUTIONS: Fall Activity Level as tolerated DIAGNOSIS: Patient Active Problem List Diagnosis ??? Cerebrovascular accident (CVA) due to occlusion of cerebral artery Past Medical History: Diagnosis Date ??? Diabetes SUBJECTIVE: pt reports at least 4 falls in last 6 months - R knee gives out ; states multiple family members at home and someone would be with her all the time; PATIENT GOALS: get better Home living: Type of Residence: Private Residence Lives with:: Spouse;Daughter;Other (Comment) Steps to Enter: 1 Handrails: None Home Structure: One Story Prior Function: Mobility: Independent (pt reports occasional use of cane) Fallen Within 6 Mos: 4 Activity at Home: Active At start of therapy session, patient found in bed and with no alarm Pain: Patient has 0/10 pain Follow-up for pain: No follow-up for pain indicated and patient agreed to proceed with treatment OBJECTIVE: General Appearance: Obese female in bed in NAD Precautions: IV's: Peripheral line Skin, Incisions, Edema: Red martinez on legs and arms and several rings of red martinez - pt states MD thinks it is from a medication she was on Other: Vital Signs:(*Assess the 3 levels of oxygen saturations both for room air and 02 unless rest on room air is 88% or less). Rest: BP: HR: O2 SAT: L 02 Room air Post Ex/gait: BP: HR: O2 SAT: L 02 Room air Post cool down BP: HR: O2 SAT: L 02 Room air Observations:No c/o dizziness or SOB during mobility or treatment MENTAL STATUS: Alert and oriented times 3; flat affect; decrease insight and safety awareness DIRECTION FOLLOWING: Able to follow multi-step commands 100% ROM: LES WFL STRENGTH: L LE WFL; R hip 2+, knee 3, ankle 3 SENSATION: intact light touch LES TONE: WNL NEGLECT: yes R side COORDINATION: NT FUNCTIONAL MOBILITY Not Tested Not Applicable Independent Stand by Assist Minimal Moderate Maximum Dependent Rolling x Scooting x2 Supine to/from sit x2 Sit to/from Stand x2 Bed to/ chair x Observation: in static sitting requires min x1 - tends to lose balance posterior and to R BALANCE: Sitting Static: fair Dynamic: poor plus Standing Static: poor Dynamic: poor Observation: requires mod x 2 for static standing and bracing of R knee GAIT: Weight Bearing: WBAT Distance: 6 side steps to L/R alongside bed x2 trials Device: none Assistance: Moderate assist of 2 Balance: poor Steps: NT fair endurance Observation: both knees slightly buckle; small steps ACTIVITY TOLERANCE: Patient's activity tolerance: fair plus TREATMENT : evaluation, bed mobility training, transfer training and gait training EDUCATION: While performing PT, Patient was instructed in:Functional mobility training/weight bearing status and Safety awareness/fall precaution Patient demonstrated Fair understanding of instructions given. INFORMED CONSENT TO TREATMENT: Plan of care including recommended therapy, goals and frequency, discussed with patient who understands and agrees to proceed. ASSESSMENT: Pt would benefit from continued PT secondary to R sided weakness and neglect to increase indep with functional mobility Patient's functional performance presently limited due to: medical condition, strength, endurance, bed mobility, transfers, gait, safety awareness and balance and Patient would benefit from additional Physical Therapy to achieve the following functional goals to enhance independence. Modified Rachel Scale: Moderate severe disability, unable to walk without assistance and unable to attend to own bodily needs without assistance Short Term Goals: Goal Formation With patient, Patient will transfer supine to/from sit With minimal assist, Sit to stand goal: With minimal assist and With assist of 2, Patient will perform rolling With stand by assist, Patient will transfer bed to/from chair With minimal assist and With assist of 2, Patient will ambulate 31-50 feet, With moderate assist and With assistive device, Patient will demonstrate standing balance Fair and + and Patient will sit on edge of bed 6-10 min and Independently [facility] Goal(s): Patient to discharge to appropriate next level of inpatient care Equipment Issued: gait belt Plan: If patient is discharged from the facility, this note serves as a discharge summary if further physical therapy visits did not occur. Following therapy session, patient left in bed, with bed alarm on, with call light within reach, with Joy SLOAN aware and with RN/CP rehab cues written on white board Isabel Wells PT 09/13/2017 * Jose Hughes MD - 09/13/2017 8:49 AM CDT Stroke service progress notes Patient: Maria Nolasco (:1960) Room: [address] [place] [address] Subjective: Patient is a 57 year old female with a PMHx of DM on metformin who presented to [facility] by EMS for right sided weakness and slurred speech. Last seen normal on 09/11/2017 at 10 pm. Her glucose was 323 by EMS and 426 here at [facility]. Her CTH was negative for any bleeding. CTA didn't show LVO. Her NIHSS was 5 (3 for right arm, 1 for facial palsy and 1 for dysarthria). TPA was not given due to being outside the window. Patient was admitted to Stroke service for further evaluation Overnight Events: No significant overnight events. CT Brain No acute intracranial hemorrhage. CTA H & N No large arterial occlusions or significant stenoses identified in the head or neck. No cerebral perfusion abnormality identified on CTP MRI Brain Left internal capsule/grant radiata infarction TTE P EKG/Tele NSR HbA1c 13.4 LDL 80 WBC 8.8 Objective: Temp: [97.7 ??F (36.5 ??C)-98.5 ??F (36.9 ??C)] 98.3 ??F (36.8 ??C) Pulse: [60-81] 75 Resp: [16-21] 20 BP: (93-158)/(50-85) 120/72 Exam: Cortical Function: MS: Awake, Alert, Follows Commands Oriented to Person, Place and Time Language: Mild dysarthria VF Intact to confrontation test Neglect No visual neglect, No tactile neglect Cranial Nerves: Pupils 4 mm BRTL, Full EOM, Facial sensation intact bilaterally to LT; RUMN facial weakness Palate symmetric; Normal tongue protrusion Motor: Abnormal Movements: None Bulk: Normal Tone: Normal Strength: Appropriate for Age RUE 1/5 LUE 5/5 RLE 4/5 LLE 5/5 DTR: Bi Tri BR Pat Ach Toes R 2 2 2 2 2 Down L 2 2 2 2 2 Down Sensory: Intact to light touch and pin prick Cerebellar: FNF intact bilaterally in left side Gait: Deferred Labs: CBC: Recent Labs Component Name 09/13/17 0342 09/12/17 0943 WBC 10.5 8.8 RBC 4.55 4.67 HGB 14.0 14.6 HCT 41.7 41.7 PLT 208 213 BMP: Recent Labs Component Name 09/13/17 0342 09/12/17 0943 NA 140 136 CL 105 99 CO2 25 25 BUN 13 11 CREATININE 0.6 0.6 GLU 208* 458* CALCIUM 9.0 9.4 Magnesium: No results for input(s): MG in the last 65136 hours. Phosphorus: Recent Labs Component Name 09/13/17 0342 09/12/17 0943 PHOS 3.2 4.1 Coagulation: Recent Labs Component Name 09/12/17 0951 PT 13.0 INR 1.0 PTT 25.7 @liver function tests Lab results smartLinks are not currently available Lab results smartLinks are not currently available Lab results smartLinks are not currently available Cardiac markers: )Recent Labs Component Name 09/12/17 1000 09/12/17 0951 09/12/1743 TROPONINI <0.010 - <0.010 BNP - <10 - Medications: Current Facility-Administered Medications: potassium chloride 40 mEq in 0.9% NaCl 270 mL bolus iopamidol (ISOVUE 370) 76 % contrast labetalol (NORMODYNE; TRANDATE) injection 10 mg Or labetalol (NORMODYNE; TRANDATE) injection 20 mg Or hydrALAZINE (APRESOLINE) injection 10 mg heparin injection 5,000 Units aspirin (ASPIRIN) tablet 325 mg Or aspirin (ASPIRIN) suppository 300 mg glucose (Diabetic Use) oral gel dextrose IV 12.5-25 g glucagon (GLUCAGEN) injection 1 mg insulin aspart (NovoLOG) vial 0-12 Units Problem List: Patient Active Problem List: Cerebrovascular accident (CVA) due to occlusion of cerebral artery Assesment and Plan: Left ischemic stroke- Internal capsule/grant radiata Mechanism: Likely SMV ?? Plan: -ASA -SSI/Accuchecks -PRN Hydralazine and Labetalol PRN to keep SBP<220, DBP<110 -Neurochecks -IVF -Tele while inpatient -TTE -Lipitor 40 mg qhs -PT/OT/COMBER FIXER/SW -Daily CBC, CMP, Mag and phsoph ? Core Measures: ?? tPA administration: no Anti-thrombotic: ASA: yes Statin; Lipitor: P DVT prophylaxis; Heparin SQ: Yes Subq heparin and SCDs Swallow Evaluation: P PT/OT Evaluation: P Smoking cessation; will bereavement counselor: No ?? Individual Modifiable Risk Factors: ?? Hypertension: no Hyperlipidemia: no Diabetes: yes Atrial Fibrillation: no Tobacco: no ? Patient was seen and examined with Dr. Carpenter, stroke attending Jose Hughes MD, MD PGY-2, Neurology 09/13/2017 8:49 AM Associated attestation - John Carpenter MD - 09/13/2017 1:35 PM CDT I saw this patient with the resident team today. I reviewed the interval history, labs, presentation, confirmed the kirk elements of examination as noted in the resident's note. I agree with the assessment and plan. In addition, I note this 57 y/o woman hx of DM, recently off metformin due to insurance reasons waslkw 10 pm and this AM was noted to have right sided weakness with dysarthria following which evaluated for acute stroke, initial NIHSS 5, tPA not administered due to delayed presentation, while no LVO noted on CTA. Initial blood sugar in 400s. F/u MR brain with left capsular infarct. O/N: no events Temp Min: 97.7 ??F (36.5 ??C) Max: 98.5 ??F (36.9 ??C), Pulse Min: 60 Max: 81, Resp Min: 16 Max: 21, BP Min: 93/50 Max: 158/85 Feels better today AAO x self, location, situation, mild dysarthria, language wnl otherwise, EOMI, RUMN facial weakness, right hemiparesis (UE, weakly against gravity> LE, against gravity) Noted to have semi-raised skin rashes on extremities Recent Labs Component Name 09/13/1734109/12/17 0943 HGB 14.0 14.6 HCT 41.7 41.7 MCV 91.6 89.3 PLT 208 213 Recent Labs Component Name 09/13/1734109/12/17 0943 NA 140 136 CL 105 99 CO2 25 25 BUN 13 11 CREATININE 0.6 0.6 CALCIUM 9.0 9.4 PHOS 3.2 4.1 Recent Labs Component Name 06/03/18 0342 ALT 11 AST 13 ALKPHOS 87 TBILI 0.7 ALB 2.9* No results for input(s): A1C in the last 37692 hours. Recent Labs Component Name 09/12/17 1000 CHOL 188 HDL 28* LDLCALC 80 TRIG 400* atorvastatin 40 mg Oral AT BEDTIME iopamidol Intravenous Contrast - Once heparin 5,000 Units Subcutaneous q8h aspirin 325 mg Oral QDAY Or aspirin 300 mg Rectal QDAY insulin aspart 0-12 Units Subcutaneous q4h I/P Stroke: Likely small vessel, atherosclerotic disease Plan brain MR Continue secondary stroke prophylaxis F/u TTE COMBER FIXER, PT, OT, ADAT, Lantus 20 u today SCDs, SC heparin SW consult re: placement- acute rehab John Carpenter MD 09/13/2017 1:26 PM * Delmi Doe OT - 09/13/2017 8:45 AM CDT [facility] Physical Medicine and Rehabilitation Occupational Therapy Initial Evaluation Note Patient: Maria Nolasco [facility] Record Number: [id number] Date of : 1960 Age: 57 y.o. Recommendation: Patient will benefit from intense 3 hour per day multidisciplinary inpatient therapies Treatment Interventions: ADL retraining;Functional transfer training;UE strengthening/ROM;Patient/Family training;Neuro muscular reeducation Need Tech Assist: Yes OT Patient: Yes Plan: OT Frequency: 7 Times/Week Physician Orders: Evaluation and Treat Precautions: DIAGNOSIS: Patient Active Problem List Diagnosis ??? Cerebrovascular accident (CVA) due to occlusion of cerebral artery Past Medical History: Diagnosis Date ??? Diabetes SUBJECTIVE / PATIENT GOALS: Home living: Type of Residence: Private Residence Lives with:: Spouse;Daughter;Other (Comment) Steps to Enter: 1 Handrails: None Home Structure: One Story Equipment At Home: Cane-Straight Prior Function: Mobility: Independent (pt reports occasional use of cane) Fallen Within 6 Mos: 4 Activity at Home: Active At start of therapy session, patient found in bed. Pain: Patient has 0/10 pain Follow-up for pain: No follow-up for pain indicated and patient agreed to proceed with treatment OBJECTIVE: General Appearance: Pt is a 57 year old female presenting supine in bed in NAD. Pt agreeable to participation in therapy Precautions: IV's: Peripheral line Edema: No edema noted Vital Signs:(*Assess the 3 levels of oxygen saturations both for room air and 02 unless rest on room air is 88% or less). Pre-activity BP: HR: O2 SAT: L 02 Room air Peak activity BP: HR: O2 SAT: L 02 Room air Post cool down BP: HR: O2 SAT: L 02 Room air Cognitive: Pt A&O x3. Pt able to follow 1 step commands 100% of the time with increased time. Difficulty sequencing multi step commands. Pt demo fair activity tolerance, safety and insight into deficits Perceptual: No visual deficits noted. Pt able to track in all iqbal Upper extremity range of motion: LUE WFL, RUE shoulder flexion approximately 0- 85 degrees, elbow flexion lacking approximately 45 degrees, PROM WFL Upper extremity strength: RUE 3-/5, LUE 4/5 Tone: Flaccid RUE Coordination: Impaired Sensation: Pt denies any numbness/tingling in BUE Patient's activity tolerance: fair FUNCTIONAL MOBILITY Not tested Independent Stand by Assist Minimal Moderate Maximum Dependent Rolling x Supine to/from sit x2 Sit to/from Standing x2 Bed to/from chair x Pt able to demo lateral steps towards both left and right with mod assist x2 Balance: Static Sitting: fair pt tends to laterally lean to the R while seated Dynamic Sitting: poor Static Standing: poor Dynamic Standing: poor Feeding: Not tested Self-Care: Max assist for donning socks and managing gown during functional transfer Splint Issued/Checked: none TREATMENT / EDUCATION / EVALUATION: Purpose of Occupational Therapy evaluation explained. While performing mobility and self care, Patient was instructed in: Functional mobility training/weight bearing status, Safety awareness/fall precaution and Self care training Presented to patient who demonstrates Fair understanding of instructions given. INFORMED CONSENT TO TREATMENT: Plan of care including recommended therapy, goals and frequency, as well as potential risks and benefits of treatment/assessment explained to patient. Patient understands and agrees to proceed. ASSESSMENT: Patient continues to benefit from skilled Occupational Therapy to achieve the following functional goals. Modified [place] Scale: Moderate severe disability, unable to walk without assistance and unable to attend to own bodily needs without assistance Nurse contacted regarding patient status and/or discharge plan. 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 Following therapy session, patient left in bed, with bed alarm on and with call light within reach. Delmi Doe OT 09/13/2017 documented in this encounter H&P Notes * Jose Hughes MD - 09/12/2017 11:47 AM CDT [facility] Stroke History and Physical Maria Nolasco Age: 57 y.o. Date of : 1960 Date of Admission: 09/12/2017 Subjective: Patient is a 57 y.o. white female presents with right sided weakness and slurred speech. Date last known well: 09/11/2017 Time last known well: 10 pm Patient denies pain.. Past history includes Diabetes on metformin Previous studies include: None Patient is a 57 year old female [...] admitted to Stroke service for further evaluation. Patient Active Problem List Diagnosis Date Noted ??? Cerebrovascular accident (CVA) due to occlusion of cerebral artery 09/12/2017 Priority: Not Prioritized No past medical history on file. No past surgical history on file. (Not in a hospital admission) No Known Allergies Family History: No family history on file. Social History: Social History Social History ??? Marital status: Spouse name: N/A ??? Number of children: N/A ??? Years of education: N/A Social History Main Topics ??? Smoking status: Not on file ??? Smokeless tobacco: Not on file ??? Alcohol use Not on file ??? Drug use: Not on file ??? Sexual activity: Not on file Other Topics Concern ??? Not on file Social History Narrative Review of Systems Unable to obtain due to her condition Objective: Patient Vitals for the past 8 hrs: BP Temp Pulse Resp SpO2 Height Weight 09/12/17 1130 140/74 - 81 20 96 % - - 09/12/17 1000 128/61 - 77 17 95 % - - 09/12/17 0945 128/56 - - - - - - 09/12/17 0915 158/85 98.5 ??F (36.9 ??C) 80 18 92 % 5' 8 296 lb No intake or output data in the 24 hours ending 09/12/17 1147 General In no acute distress HEENT: Head normocephalic and atraumatic Heart: Regular rate and rhythm without murmur Lungs: Clear to auscultation bilaterally Abdomen: Non-tender, non-distended Extremities: No cyanosis or edema noted Cortical Function: MS: Awake, Alert, Follows Commands Oriented to Person, Place and Time Language: Fluent, Coherent, Repetition Intact Mild dysarthria VF Intact to confrontation test Neglect No visual neglect, No tactile neglect Cranial Nerves: Pupils 3 mm BRTL, Full EOM, No ptosis or nystagmus Facial sensation intact bilaterally to LT; Mild facial asymmetry Hearing intact to finger rub bilaterally Palate symmetric; Normal tongue protrusion Motor: Abnormal Movements: None Bulk: Normal Tone: Normal RUE Proximal 1/5 LUE Proximal 5/5 Distal 1/5 Distal 5/5 RLE Proximal 4/5 LLE Proximal 5/5 Distal 4/5 Distal 5/5 DTR: Bi Tri BR Pat Ach Toes R 2 2 2 2 2 Down L 2 2 2 2 2 Down Sensory: Intact to light touch and pin prick Cerebellar: FNF intact on left side Gait: Deferred ECG: NSR . Ischemic: Ischemic Stroke Documentation Comorbidities DM CardiovascularCerebrovascular Comorbidities None NIHSS Stroke Scale: Interval: Baseline Time: 0910 Person Administering Scale: Jose Hughes MD Administer stroke scale items in the order listed. Record performance in each category after each subscale exam. Do not go back and change scores. Follow directions provided for each exam technique. Scores should reflect whatthe patient does, not what the clinician thinks the patient can do. The clinician should record answers while administering the exam and work quickly. Except where indicated,the patient should not be coached (i.e., repeatedrequests to patient to make a special effort). 1a Level of consciousness: 0=alert; keenly responsive 1b. LOC questions: 0=Performs both tasks correctly 1c. LOC commands: 0=Performs both tasks correctly 2. Best Gaze: 0=normal 3. Visual: 0=No visual loss 4. Facial Palsy: 1=Minor paralysis (flattened nasolabial fold, asymmetric on smiling) 5a. Motor left arm: 0=No drift, limb holds 90 (or 45) degrees for full 10 seconds 5b. Motor right arm: 3=No effort against gravity, limb falls 6a. motor left le=No drift, limb holds 90 (or 45) degrees for full 10 seconds 6b Motor right le=No drift, limb holds 90 (or 45) degrees for full 10 seconds 7. Limb Ataxia: 0=Absent 8. Sensory: 0=Normal; no sensory loss 9. Best Language: 0=No aphasia, normal 10. Dysarthria: 1=Mild to moderate, patient slurs at least some words and at worst, can be understood with some difficulty 11. Extinction and Inattention: 0=No abnormality Total 5 Inclusion criteria for treatment 0-3 hours from last known well: A. Age equal to or greater than 18 years yes B. Clinical presentation consistent with acute ischemic stroke yes C. Head CT excludes ICH as primary cause of stroke symptoms yes Exclusion criteria for treatment 0-3 hours from last known well: A. Current ICH, SAH no B. Active internal bleeding no C .Recent (within 3 months) intracranial or intra-spinal surgery or serious head trauma no D. Presence of intracranial conditions that may increase the risk of bleeding (some neoplasms, AVMsor aneurysms) no E. Bleeding diathesis no F. Current severe uncontrolled hypertension no Additional exclusion criteria for treatment 3-4.5 hours from last known well: A. Age > 80 years no B. NIHSS >25 no C. History of stroke and diabetes mellitus no D. Oral anticoagulant use regardless of INR no tPA was not given due to: Outside the window Mechanical Thrombectomy Inclusion/Exclusion Factors: A. Age equal to or greater than 18 years yes B. Clinical presentation consistent with acute ischemic stroke yes C. Head CT excludes ICH as primary cause of stroke symptoms yes 1. Evidence of proximal large vessel intracranial occlusion no 2. Completed large infarction on neuroimaging no 3. Baseline disability with modified Wy[place]ot score greater or equal to 3 no 4. Patient and/or family refusal of treatment no 5. Mild/non-disabling neurological deficits no Mechanical Thrombectomy not considered due to: No LVO Assessment: Active Problems: Cerebrovascular accident (CVA) due to occlusion of cerebral artery Left ischemic stroke Mechanism: Likely underlying CE vs A-A Plan: -Admit to stroke floor for stroke workup -Brain MRI w/o contrast -Permissive HTN with Hydralazine and Labetalol PRN to keep SBP<220, DBP<110 -Neurochecks -A1c -Hold metformin while inpatient. Stat SSI and accuchecks -IVF -Troponin q8hx3 -Tele while inpatient -TTE -ASA 300 mg supp then daily once pass swallow eval -Lipid panel. Start lipitor for LDL>70 -PT/OT/COMBER FIXER/SW -Daily CBC, CMP, Mag and phsoph Core Measures: tPA administration: no Anti-thrombotic: ASA: yes Statin; Lipitor: P DVT prophylaxis; Heparin SQ: Yes Subq heparin and SCDs Swallow Evaluation: P PT/OT Evaluation: P Smoking cessation; will bereavement counselor: No Individual Modifiable Risk Factors: Hypertension: no Hyperlipidemia: no Diabetes: yes Atrial Fibrillation: no Tobacco: no Patient was seen and examined with Dr. Carpenter, stroke attending Jose Hughes MD PGY2 Neurology Associated attestation - John Carpenter MD - 09/12/2017 4:20 PM CDT I saw this patient with the resident team today after a code stroke. I reviewed the interval history, imaging, labs, presentation confirmed the kirk elements of examination as noted in the resident's note. I agree with the assessment and plan. In addition, I note this 57 y/o woman hx of DM, recently off metformin due to insurance reasons waslkw 10 pm and this AM was noted to have right sided weakness with dysarthria following which evaluated for acute stroke, initial NIHSS 5, tPA not administered due to delayed presentation, while no LVO noted on CTA. Initial blood sugar in 400s. Denies any palpitations/ dysrhythmias/ chest pain. Temp Min: 98.5 ??F (36.9 ??C) Max: 98.5 ??F (36.9 ??C), Pulse Min: 60 Max: 81, Resp Min: 16 Max: 21, BP Min: 111/55 Max: 158/85 Anxious, emotional, crying AAO x self, location, situation, mild dysarthria, language wnl otherwise, EOMI, RUMN facial weakness, right hemiparesis (UE, weakly against gravity> LE, against gravity) Recent Labs Component Name 09/12/17 0943 HGB 14.6 HCT 41.7 MCV 89.3 PLT 213 Recent Labs Component Name 09/12/17 0943 NA 136 CL 99 CO2 25 BUN 11 CREATININE 0.6 CALCIUM 9.4 PHOS 4.1 Recent Labs Component Name 09/12/17 0943 ALT 12 AST 10 ALKPHOS 122 TBILI 0.4 ALB 3.1* No results for input(s): A1C in the last 64346 hours. Recent Labs Component Name 09/12/17 1000 CHOL 188 HDL 28* LDLCALC 80 TRIG 400* iopamidol Intravenous Contrast - Once heparin 5,000 Units Subcutaneous q8h aspirin 325 mg Oral QDAY Or aspirin 300 mg Rectal QDAY insulin aspart 0-12 Units Subcutaneous q4h I/P Stroke: Likely small vessel, atherosclerotic disease Plan brain MR Continue secondary stroke prophylaxis Blood sugar control to normoglycemia Hydration with NS F/u trops, TTE COMBER FIXER, PT, OT SCDs, SC heparin John Carpenter MD 09/12/2017 4:14 PM documented in this encounter Consult Notes * Rafaela Alvarado - 09/15/2017 8:30 AM CDTAssociated Order(s): IP CONSULT TO SASH MAKER Chart Reviewed. This patient will need Stroke Education Documented by nursing EACH SHIFT. If possible, education could be completed during the NIH assessment. 1st Documented NIHSS Score: NIH Stroke Scale Assessment Interval: Baseline (06/02/18 0910) Level of Consciousness: Alert, keenly responsive (09/12/17909) LOC: Questions (Month and Age): Answers both questions correctly (09/12/17909) LOC: Commands (opens/closes, eyes/fists): Performs both tasks correctly (09/12/17909) Best Gaze: Normal (09/12/17909) Visual: No visual loss (09/12/17909) Facial Palsy: Minor paralysis (flattened naolabial fold, asymmetry on smiling) (09/12/17909) Motor Arm Function - Right: No effort against gravity, limb falls. (09/12/17909) Motor Arm Function - Left: No drift, limb hold 90 (or 45) degrees for full 10 seconds. (09/12/17909) Motor Leg - Right: No drift, leg holds 30-degree position for full 5 seconds. (09/12/17909) Motor Leg - Left: No drift, leg holds 30-degree position for full 5 seconds. (09/12/17909) Limb Ataxia: Absent (09/12/17909) Sensory: Normal, no sensory loss (09/12/17909) Best Language: No aphasis, normal (09/12/17909) Dysarthria: [id number]-mpesxinc dysarthria, patient slurs at least some words and, at worst, can be understood with some difficulty. (09/12/17909) Extinction and Inattention: No abnormality (09/12/17909) NIH Total: 5 (09/12/17909) LDL= DOES NOT MEET Core Measure Guideline of GOAL <70. Recent Labs Component Name 09/12/17 1000 LDLCALC 80 HGBA1C= If HGBA1C >6.5 Please assure that Diabetic Education has been consulted Per Protocol. Recent Labs Component Name 09/13/17 0342 HGBA1C 13.4* CORE MEASURE REVIEW: Anti platelet: Received Anticoagulant: Received DVT Prophylaxis: Received Per CMS guidelines: *Please assure that STK-1 and STK-2 are addressed daily to prevent outliers. *VTE abstraction begins on the day of the IP admission. If the patient is on OBS status for greaterthan 24 hours, the IP admission may be Day 2 or greater than the hospital stay. Statin: Received Per CMS guidelines: *If discharge diagnosis is AIS the patient must be discharged on a statin if: -There is no lipid panel drawn. -If the patient has an LDL > or equal to 70. *If the patient's LDL is less than 70 during the current IP admission, the patient does not need mayra discharged home on a Statin. CVA Education: Received Depression Screen: Received Nursing pending course of action: 1) Complete Stroke/TIA Education with documentation of Handout Given when you deem appropriate. *Document on Modifiable Risk Factors DAILY. *Document and provide Stroke Education Binder as a Handout. 2) Complete Depression Screener for patient's diagnosed with TIA/CVA after admission and prior to discharge located at the bottom of NIH Doc Flowsheet to evaluate the patient's potential for developing depression post potential Stroke/TIA. 3) Complete Neuro Checks and document as ordered by MD 4) Complete NIHSS per MD orders. I) To be completed at shift change and at any change in LOC. II) Per nursing judgement, if patient has an NIHSS deviation of 4 or greater from baseline, or per nursing judgement, please call Neurologist or PCP and repeat swallow screen evaluation. 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 She carrion no insurance at this time and for that reason she will likely need to be discharged on 70/30 regimen. Agreed that purchasing insulin at [facility] for $24 per bottle would be possible. Self injection with syringe and vial will be necessary. Will provide this teaching prior to discharge. Daughter lives with patient and can assist her. Exducation on Diet and exercise management ofthe disease, will also be provided. documented in this encounter ED Notes * Stephanie Ramirez RN - 09/12/2017 4:45 PM CDT [facility] hand off with Lorrie SLOAN. * Stephanie Ramirez RN - 09/12/2017 4:05 PM CDT Pt in MRI. * Stephanie Ramirez RN - 09/12/2017 10:38 AM CDT Pt used bedpan. Urine sent to lab. * René Lawrence MD - 09/12/2017 9:15 AM CDT ED Attending Note Interval History: Maria Nolasco is a 57 y.o. female presenting to the ED via EMS as a code stroke. LKW was 10 PM lastnight. ROS is unobtainable due to acuity of condition. Per EMS, pt's daughter noticed stroke-like symptoms around 1 AM this morning. EMS report slurred speech and R sided weakness. Pt is a&o x 3 per EMS and has been in NSR en route to ED. HPI limited 2/2 to patient's acuity of condition. No past medical history on file. No past surgical history on file. Social History Social History ??? Marital status: Spouse name: N/A ??? Number of children: N/A ??? Years of education: N/A Occupational History ??? Not on file. Social History Main Topics ??? Smoking status: Not on file ??? Smokeless tobacco: Not on file ??? Alcohol use Not on file ??? Drug use: Not on file ??? Sexual activity: Not on file Other Topics Concern ??? Not on file Social History Narrative Review of Systems: unable to obtain due to acuity of condition Vitals: 09/12/17 1400 09/12/17 1430 09/12/17 1500 09/12/17 1530 BP: 131/64 119/65 129/60 111/55 Pulse: 81 71 70 60 Resp: 20 17 18 18 Temp: SpO2: 100% 96% 95% 94% Weight: Exam: Constitutional: well developed, well nourished, no acute distress HENT: normocephalic, atraumatic, moist oral mucosa, conjunctiva normal Eyes: PERRL, EOMi Neck: supple, normal ROM Cardiovascular: regular rate and rhythm, no murmur Respiratory: clear to auscultation bilaterally, no wheezes, no respiratory distress Abdomen: soft, non-tender, non-distended Musculoskeletal: no edema or deformities Skin: warm, dry, no lesions Neurological: Right upper and right lower extremity weakness. Right facial droop and slurred speechnoted. 5/5 motor strength in LUE and LLE. Sensation is intact to light touch. Psychiatric: unable to assess Medical Decision Makin. Code stroke Differential diagnosis considered: CVA vs hyperglycemia vs DKA vs metabolic vs tox vs infections vs other Plan: Stroke consult, imaging, medications, labs, maintain blood sugar with insulin, and admit to stroke team Results: Labs Reviewed COMPREHENSIVE METABOLIC PANEL - Abnormal; Notable for the following: Result Value Glucose 458 (*) Albumin 3.1 (*) Calculated Osmolality 301 (*) A/G Ratio 0.9 (*) All other components within normal limits CBC W AUTO DIFFERENTIAL - Abnormal; Notable for the following: Eosinophil Absolute 0.29 (*) All other components within normal limits MAGNESIUM BLOOD - Abnormal; Notable for the following: Magnesium 1.4 (*) All other components within normal limits URINALYSIS W/MICROSCOPIC NO CULTURE - Abnormal; Notable for the following: Specific [place] UA >1.040 (*) Glucose UA >1000 (*) Ketones UA Trace (*) Leukocyte Esterase UA Small (*) WBC UA 22 (*) All other components within normal limits Narrative: Specific gravity results confirmed by refractometer. HYDROXYBUTYRATE BETA - Abnormal; Notable for the following: Beta-hydroxybutyrate 0.64 (*) All other components within normal limits BLOOD GASES ALLYSON - Abnormal; Notable for the following: pH Venous 7.41 (*) HCO3 Mixed Venous 26.2 (*) Carboxyhemoglobin 3.8 (*) All other components within normal limits LIPID PROFILE - Abnormal; Notable for the following: HDL 28 (*) Triglycerides 400 (*) All other components within normal limits GLUCOSE - POINT OF CARE - Abnormal; Notable for the following: Glucose 426 (*) All other components within normal limits Narrative: Social Media Marketer: LIAN CHONG GLUCOSE - POINT OF CARE - Abnormal; Notable for the following: Glucose 272 (*) All other components within normal limits Narrative: Social Media Marketer: NAYAN HANKINS GLUCOSE - POINT OF CARE - Abnormal; Notable for the following: Glucose 331 (*) All other components within normal limits Narrative: Social Media Marketer: NAYAN STEPHANIE GLUCOSE - POINT OF CARE - Abnormal; Notable for the following: Glucose 263 (*) All other components within normal limits Narrative: Social Media Marketer: ANIL PINTO PHOSPHORUS BLOOD - Normal DRUG SCREEN TOX URINE PANEL - Normal Narrative: The Urine Toxicology Screening Panel does not screen for Propoxyphene, Meprobamate, Carisoprodol, Trazodone, oobc-yge-jmqosrx medications and/or volatiles (Acetone, Isopropanol, Methanol or Ethylene Glycol). Ethanol, Salicylate, Acetaminophen, Tricyclic Antidepressants and several therapeutic drugsmay be individually assayed in serum or plasma specimen. Toxicology testing by the [facility] is an aid to medical diagnosisand treatment of patients. No documented chain of custody was maintained. Results are intended to be used for clinical purposes only. TROPONIN I - Normal PT-INR SLH - Normal PTT [facility] - Normal B-TYPE NATRIURETIC PEPTIDE - Normal TROPONIN I - Normal CULTURE URINE ALCOHOL ETHYL BLOOD CREATININE BLOOD - POCT (IP) [facility] CREATININE BLOOD - POCT (IP) [facility] CT HEAD NON CONTRAST Final Result EXAMINATION: 1. Computed tomographic (CT) angiography of [...] was electronically signed by Ruben Matthews on 09/12/2017 1:[address] ANGIO BRAIN AND NECK Final Result EXAMINATION: 1. Computed tomographic (CT) angiography of [...] was electronically signed by Ruben Matthews on 09/12/2017 1:[address] CEREBRAL PERFUSION ANALYSIS Final Result EXAMINATION: 1. Computed tomographic (CT) angiography of [...] was electronically signed by Ruben Matthews on 09/12/2017 1:14 PM . XR CHEST 1VW PORTABLE Final Result EXAMINATION: XR CHEST 1VW PORTABLE HISTORY: R53.1: Weakness COMPARISON: No prior study is available for comparison. FINDINGS: The lungs are clear. There is no focal consolidation, pleural effusion, or pneumothorax. The cardiac silhouette is normal. The aorta is atherosclerotic. The visible bony thorax is intact. IMPRESSION: No acute pulmonary process. Dictated by Jamaal Boswell MD (radiology clerk). I, Dr. Tj JAIME M.D. have personally reviewed and interpreted this examination/study. This report was electronically signed by Tj JAIME M.D. on 09/12/2017 1:06 PM . MRI BRAIN NON CONTRAST (Results Pending) EKG Interpretation: Interpreted by me 9:45 AM NSR, no acute changes 79 bpm ED course: The patient's Oxygen Saturation Monitor was interpreted by me. The reading was 95%. The patient wason RA at the time of the reading. This is interpreted as normal. 9:40 AM Neuro stroke team recommends managing BS at this time, pending CT/CTA brain results. Pt will be admitted to neuro stroke team. 4:03 PM: Patient has an available bed with the admitting service Neuro Stroke at this time. I have reviewed the diagnostic findings with the patient and they have had an opportunity to ask me any questions they have about care, diagnosis, and reason for admission. The patient states understanding and agrees to admission. Consult Yes Neuro stroke team Procedure done at this time No Ultrasound done at this time No CRITICAL CARE IN THE ED No Orders and Medicine administered during this encounter: Orders Placed This Encounter ??? CULTURE URINE ??? CT HEAD NON CONTRAST ??? CT ANGIO BRAIN AND NECK ??? CT CEREBRAL PERFUSION ANALYSIS ??? XR CHEST 1VW PORTABLE ??? MRI BRAIN NON CONTRAST ??? COMPREHENSIVE METABOLIC PANEL ??? CBC W AUTO DIFFERENTIAL ??? ALCOHOL ETHYL BLOOD ??? MAGNESIUM BLOOD ??? PHOSPHORUS BLOOD ??? DRUG SCREEN TOX URINE PANEL ??? URINALYSIS W/MICROSCOPIC NO CULTURE ??? HYDROXYBUTYRATE BETA ??? BLOOD GASES ALLYSON ??? TROPONIN I ??? PT-INR SLH ??? PTT SLH ??? B-TYPE NATRIURETIC PEPTIDE ??? LIPID PROFILE ??? COMPREHENSIVE METABOLIC PANEL ??? CBC W/O DIFFERENTIAL ??? PHOSPHORUS BLOOD ??? PT-INR [facility] ??? DRUG SCREEN TOX URINE PANEL ??? TROPONIN I ??? HEMOGLOBIN A1C ??? HEMOGLOBIN A1C ??? IP CONSULT TO SASH MAKER ??? IP CONSULT TO FROTHING MACHINE OPERATOR ??? PULSE OXIMETRY, SPOT ??? CREATININE BLOOD - POCT (IP) SL[facility] ??? CREATININE BLOOD - POCT (IP) SL[facility] ??? EKG 12-LEAD ??? iopamidol (ISOVUE 370) 76 % contrast ??? 0.9% NaCl IV Bolus ??? OR Linked Order Group ??? labetalol (NORMODYNE; TRANDATE) injection 10 mg ??? labetalol (NORMODYNE; TRANDATE) injection 20 mg ??? hydrALAZINE (APRESOLINE) injection 10 mg ??? heparin injection 5,000 Units ??? OR Linked Order Group ??? aspirin (ASPIRIN) tablet 325 mg ??? aspirin (ASPIRIN) suppository 300 mg ??? DISCONTD: aspirin (ASPIRIN) chew tablet 81 mg ??? insulin regular human (humuLIN R; novoLIN R) 100 UNIT/ML injection 10 Units ??? 0.9% NaCl IV Bolus ??? glucose (Diabetic Use) oral gel ??? dextrose IV 12.5-25 g ??? glucagon (GLUCAGEN) injection 1 mg ??? insulin aspart (NovoLOG) vial 0-12 Units Medications iopamidol (ISOVUE 370) 76 % contrast (125 mL Intravenous $ Given - Contrast 09/12/17 0921) labetalol (NORMODYNE; TRANDATE) injection 10 mg (not administered) Or labetalol (NORMODYNE; TRANDATE) injection 20 mg (not administered) Or hydrALAZINE (APRESOLINE) injection 10 mg (not administered) heparin injection 5,000 Units (5,000 Units Subcutaneous $ Given 09/12/17 1324) aspirin (ASPIRIN) tablet 325 mg (325 mg Oral $ Given 09/12/17 1007) Or aspirin (ASPIRIN) suppository 300 mg ( Rectal See Alternative 09/12/17 1007) glucose (Diabetic Use) oral gel (not administered) dextrose IV 12.5-25 g (not administered) glucagon (GLUCAGEN) injection 1 mg (not administered) insulin aspart (NovoLOG) vial 0-12 Units (6 Units Subcutaneous $ Given 09/12/17 1324) 0.9% NaCl IV Bolus (0 mL Intravenous Stopped 09/12/17 1038) insulin regular human (humuLIN R; novoLIN R) 100 UNIT/ML injection 10 Units (10 Units Intravenous $Given 09/12/17 1041) 0.9% NaCl IV Bolus (0 mL Intravenous Stopped 09/12/17 1157) Clinical Impression: 1. Weakness 2. Cerebrovascular accident (CVA) due to occlusion of cerebral artery Scripts: Disposition: Admit to neuro stroke Follow-up: By signing my name below, I, Taylor Cline, attfernando that this documentation has been prepared under thedirection and in the presence of Dr. Lawrence. Signed: Paloma Gonzalez. Date: 09/12/2017. Time:9:15 AM. By signing my name below, I, Abbe Madden, attfernando that this documentation has been prepared underthe direction and in the presence of Dr. Lawrence. Signed: Paloma Burk. Date: 09/12/2017 Time:2:52 PM I, Dr. Lawrence, personally performed the services described in this documentation. All medical record entries made by the scribe were at my direction and in my presence. I have reviewed the chart and agree that the record reflects my personal performance and is accurate and complete. Electronically signed: Dr. Lawrence. Date: 09/12/2017 Time: 4:14 PM * Payal Samuel RN - 09/12/2017 9:14 AM CDT Bed: T2 Expected date: Expected time: Means of arrival: Comments: Code stroke documented in this encounter Plan of Treatment Not on file documented as of this encounter Procedures Procedure Name Priority Date/Time Associated Diagnosis Comments GLUCOSE - POINT OF CARE Routine 09/16/19 18 6:09 PM CDT GLUCOSE - POINT OF CARE Routine 09/16/19 18 12:12 PM CDT GLUCOSE - POINT OF CARE Routine 09/16/19 18 8:02 AM CDT GLUCOSE - POINT OF CARE Routine 09/16/19 18 4:00 AM CDT CBC W/O DIFFERENTIAL Routine 09/15/2017 3:04 AM CDT COMPREHENSIVE METABOLIC PANEL Routine 09/15/2017 3:04 AM CDT PHOSPHORUS BLOOD Routine 09/15/2017 3:04 AM CDT GLUCOSE - POINT OF CARE Routine 09/16/19 18 12:02 AM CDT GLUCOSE - POINT OF CARE Routine 09/15/19 8:54 PM CDT GLUCOSE - POINT OF CARE Routine 09/15/19 5:48 PM CDT ECHO COMPLETE Routine 09/14/2017 3:59 PM CDT Cerebrovascular accident (CVA) due to embolism of cerebral artery (HCC) GLUCOSE - POINT OF CARE Routine 09/15/19 18 12:27 PM CDT GLUCOSE - POINT OF CARE Routine 09/15/19 8:14 AM CDT CBC W/O DIFFERENTIAL Routine 09/14/2017 3:53 AM CDT COMPREHENSIVE METABOLIC PANEL Routine 09/14/2017 3:53 AM CDT PHOSPHORUS BLOOD Routine 09/14/2017 3:53 AM CDT GLUCOSE - POINT OF CARE Routine 09/15/19 18 3:33 AM CDT GLUCOSE - POINT OF CARE Routine 09/14/19 18 11:47 PM CDT GLUCOSE - POINT OF CARE Routine 09/14/19 18 7:56 PM CDT GLUCOSE - POINT OF CARE Routine 09/14/19 5:11 PM CDT GLUCOSE - POINT OF CARE Routine 09/14/19 18 3:40 PM CDT GLUCOSE - POINT OF CARE Routine 09/14/19 18 12:27 PM CDT CARDIAC EKG ORDER 09/13/2017 9:3 5 AM CDT CARDIAC EKG ORDER 09/13/2017 9:3 5 AM CDT GLUCOSE - POINT OF CARE Routine 09/14/19 18 7:32 AM CDT GLUCOSE - POINT OF CARE Routine 09/14/19 18 4:04 AM CDT HEMOGLOBIN A1C Routine 09/13/2017 3:42 AM CDT CBC W/O DIFFERENTIAL Routine 09/13/2017 3:42 AM CDT COMPREHENSIVE METABOLIC PANEL Routine 09/13/2017 3:42 AM CDT PHOSPHORUS BLOOD Routine 09/13/2017 3:42 AM CDT GLUCOSE - POINT OF CARE Routine 09/14/19 18 12:04 AM CDT GLUCOSE - POINT OF CARE Routine 09/13/19 18 9:15 PM CDT GLUCOSE - POINT OF CARE Routine 09/13/19 18 6:40 PM CDT MRI BRAIN WO CONTRAST Routine 09/12/2017 4:32 PM CDT Weakness GLUCOSE - POINT OF CARE Routine 09/13/19 18 3:01 PM CDT GLUCOSE - POINT OF CARE Routine 09/13/19 18 1:19 PM CDT GLUCOSE - POINT OF CARE Routine 09/13/19 18 12:29 PM CDT GLUCOSE - POINT OF CARE Routine 09/13/19 18 11:09 AM CDT URINALYSIS W/MICROSCOPIC NO CULTURE STAT 09/12/2017 10:38 AM CDT CULTURE URINE STAT 09/12/2017 10:38 AM CDT URINE DRUG SCREEN IMMUNOASSAY STAT 09/12/2017 10:38 AM CDT TROPONIN I STAT 09/12/2017 10:00 AM CDT LIPID PROFILE STAT 09/12/2017 10:00 AM CDT PULSE OXIMETRY, SPOT Routine 09/12/2017 9:53 AM CDT PULSE OXIMETRY, SPOT Routine 09/12/2017 9:53 AM CDT PULSE OXIMETRY, SPOT Routine 09/12/2017 9:53 AM CDT PULSE OXIMETRY, SPOT Routine 09/12/2017 9:53 AM CDT PULSE OXIMETRY, SPOT Routine 09/12/2017 9:53 AM CDT PULSE OXIMETRY, SPOT Routine 09/12/2017 9:53 AM CDT PTT SLH STAT 09/12/2017 9:51 AM CDT PT-INR [facility]H STAT 09/12/2017 9:51 AM CDT B-TYPE NATRIURETIC PEPTIDE STAT 09/12/2017 9:51 AM CDT XR CHEST 1VW PORTABLE STAT 09/12/2017 9:50 AM CDT Weakness EKG 12-LEAD STAT 09/12/2017 9:45 AM CDT Weakness TROPONIN I STAT 09/12/2017 9:43 AM CDT HYDROXYBUTYRATE BETA STAT 09/12/2017 9:43 AM CDT CBC W AUTO DIFFERENTIAL STAT 09/13/19 18 9:43 AM CDT BLOOD GASES ALLYSON STAT 09/12/2017 9:43 AM CDT COMPREHENSIVE METABOLIC PANEL STAT 09/12/2017 9:43 AM CDT PHOSPHORUS BLOOD STAT 09/12/2017 9:43 AM CDT MAGNESIUM BLOOD STAT 09/12/2017 9:43 AM CDT ALCOHOL ETHYL BLOOD STAT 09/12/2017 9 :[address] ANGIO BRAIN AND NECK STAT 09/13/19 18 9:[address] CEREBRAL PERFUSION ANALYSIS STAT 09/12/2017 9:[address] HEAD WO CONTRAST STAT 09/12/2017 9 :36 AM CDT Weakness CREATININE BLOOD - POCT (IP) [facility] Routine 09/12/2017 9:21 AM CDT Weakness GLUCOSE - POINT OF CARE Routine 09/13/19 9:13 AM CDT documented in this encounter Results * (ABNORMAL) GLUCOSE - POINT OF CARE (09/15/2017 6:09 PM CDT) Glucose WB/POC 225(H) 70 - 115 mg/dL 09/15/2017 6:23 PM CDT [facility] Specimen Type Arterial/C apillary 09/15/2017 6:23 PM CDT [facility] Blood BLOOD SPECIMEN / Unknown 09/15/2017 6:09 PM CDT 09/15/2017 6:23 PM CDT Narrative [facility] - 09/15/2017 6:23 PM CDT Social Media Marketer: ALINA ??ANGEL John Carpenter MD LAB - POINT OF CARE ORDERABLES [facility] [address] [place] [address] * (ABNORMAL) GLUCOSE - POINT OF CARE (09/15/2017 12:12 PM CDT) Glucose WB/POC 236(H) 70 - 115 mg/dL 09/15/2017 12:25 PM CDT [facility] Specimen Type Arterial/C apillary 09/15/2017 12:25 PM CDT [facility] Blood BLOOD SPECIMEN / Unknown 09/15/2017 12:12 PM CDT 09/15/2017 12:25 PM CDT [facility] - 09/15/2017 12:25 PM CDT Social Media Marketer: ALINA ??ANGEL John Carpenter MD LAB - POINT OF CARE ORDERABLES [address] [phone] * (ABNORMAL) GLUCOSE - POINT OF CARE (09/15/2017 8:02 AM CDT) Glucose WB/POC 201(H) 70 - 115 mg/dL 09/15/2017 8:22 AM CDT [facility] Specimen Type Arterial/C apillary 09/15/2017 8:22 AM CDT [facility] Blood BLOOD SPECIMEN / Unknown 09/15/2017 8:02 AM CDT 09/15/2017 8:22 AM CDT [facility] - 09/15/2017 8:22 AM CDT Social Media Marketer: ALINA ??ANGEL John Carpenter MD LAB - POINT OF CARE ORDERABLES [address] [phone] * (ABNORMAL) GLUCOSE - POINT OF CARE (09/15/2017 4:00 AM CDT) Glucose WB/POC 218(H) 70 - 115 mg/dL 09/15/2017 4:22 AM CDT [facility] Specimen Type Arterial/C apillary 09/15/2017 4:22 AM CDT [facility] Blood BLOOD SPECIMEN / Unknown 09/15/2017 4:00 AM CDT 09/15/2017 4:22 AM CDT Narrative [facility] - 09/15/2017 4:22 AM CDT Social Media Marketer: ALEXIS ??CALI John Carpenter MD LAB - POINT OF CARE ORDERABLES Performing Organization Address [facility]/ZIP Co de Phone Number [address] [phone] * PHOSPHORUS BLOOD (09/15/2017 3:04 AM CDT) Phosphorus 4.0 2.3 - 4.7 mg/dL 09/15/2017 3:52 AM T [facility] Blood BLOOD SPECIMEN / Unknown Lab Venipuncture / Unknown 09/15/2017 3:04 AM CDT 09/15/2017 3:21 AM CDT John Carpenter MD LAB - CHEMISTRY ORDE LATISHA Performing Organization Address [facility]/ZIP Co de Phone Number [address] [phone] * CBC W/O DIFFERENTIAL (09/15/2017 3:04 AM CDT) WBC 9.4 3.5 - 10.5 10? 3 /uL 09/15/2017 3:27 AM [facility] RBC 4.57 3.90 - 5.00 10? 6 /uL 09/15/2017 3:27 AM [facility] Hemoglobin 14.4 12.0 - 15.5 g/dL 09/15/2017 3:27 AM [facility] Hematocrit 41.8 35.0 - 45.0 % 09/15/2017 3:27 AM [facility] MCV 91.5 81.0 - 97.0 fL 09/15/2017 3:27 AM [facility] MCH 31.5 28.0 - 34.0 pg 09/15/2017 3:27 AM [facility] MCHC 34.4 32.0 - 36.0 g/dL 09/15/2017 3:27 AM [facility] Platelet Count 208 150 - 400 10? 3 /uL 09/15/2017 3:27 AM [facility] RDW-SD 40.4 36.0 - 50.0 fL 09/15/2017 3:27 AM [facility] RDW-CV 12.1 11.2 - 14.8 % 09/15/2017 3:27 AM [facility] MPV 10.7 9.3 - 12.8 fL 09/15/2017 3:27 AM [facility] Blood BLOOD SPECIMEN / Unknown Lab Venipuncture / Unknown 09/15/2017 3:04 AM CDT 09/15/2017 3:21 AM CDT John Carpenter MD LAB - HEMATOLOGY ORD ERABLES [facility] [address] [phone] * (ABNORMAL) COMPREHENSIVE METABOLIC PANEL (09/15/2017 3:04 AM T) BUN 19 7 - 26 mg/dL 09/15/2017 3:52 AM [facility] Creatinine 0.6 0.6 - 1.2 mg/dL 09/15/2017 3:52 AM [facility] Sodium 139 136 - 145 mmol/L 09/15/2017 3:52 AM [facility] Potassium 3.3(L) 3.5 - 4.5 mmol/L 09/15/2017 3:52 AM [facility] Chloride 104 98 - 107 mmol/L 09/15/2017 3:52 AM [facility] CO2 27 22 - 29 mmol/L 09/15/2017 3:52 AM [facility] Glucose 189(H) 70 - 115 mg/dL 09/15/2017 3:52 AM [facility] Calcium 9.4 8.4 - 10.2 mg/dL 09/15/2017 3:52 AM [facility] Protein Total 6.3 6.0 - 8.3 g/dL 09/15/2017 3:52 AM [facility] Albumin 3.0(L) 3.4 - 5.0 g/dL 09/15/2017 3:52 AM [facility] Bilirubin Total 0.5 0.2 - 1.2 mg/dL 09/15/2017 3:52 AM [facility] Alkaline Phosphatase 88 40 - 150 Units/L 09/15/2017 3:52 AM [facility] ALT 11 0 - 55 Units/L 09/15/2017 3:52 AM [facility] AST 12 5 - 34 Units/L 09/15/2017 3:52 AM [facility] Anion Gap 11 8 - 18 09/15/2017 3:52 AM [facility] BUN/Creatinine Ratio 32(H) 7 - 23 09/15/2017 3:52 AM [facility] Osmolality Calculated 295 270 - 300 mOsm/kg 09/15/2017 3:52 AM [facility] Albumin/Globulin Ratio 0.9(L) 1.1 - 2.3 09/15/2017 3:52 AM [facility] eGFR >60 >60 mL/min/1.7 3 m2 09/15/2017 3:52 AM [facility] Blood BLOOD SPECIMEN / Unknown Lab Venipuncture / Unknown 09/15/2017 3:04 AM CDT 09/15/2017 3:21 AM CDT John Carpenter MD LAB - CHEMISTRY [facility] Organization Address City/State/ZIP Co de Phone Number [facility] [address] [place] [address] * (ABNORMAL) GLUCOSE - POINT OF CARE (09/15/2017 12:02 AM CDT) Glucose WB/POC 176(H) 70 - 115 mg/dL 09/15/2017 12:25 AM [facility] Specimen Type Arterial/C apillary 09/15/2017 12:25 AM [facility] Blood BLOOD SPECIMEN / Unknown 09/15/2017 12:02 AM CDT 09/15/2017 12:25 AM CDT Narrative [facility] - 09/15/2017 12:25 AM CDT Social Media Marketer: ALEXIS ?BRYCE John Carpenter MD LAB - POINT OF CARE ORDERABLES Performing Organization Address [facility]/ZIP Co de Phone Number [address] [phone] * (ABNORMAL) GLUCOSE - POINT OF CARE (09/14/2017 8:54 PM CDT) Glucose WB/POC 223(H) 70 - 115 mg/dL 09/14/2017 9:07 PM CDT [facility] Specimen Type Arterial/C apillary 09/14/2017 9:07 PM CDT [facility] Blood BLOOD SPECIMEN / Unknown 09/14/2017 8:54 PM CDT 09/14/2017 9:07 PM CDT Narrative [facility] - 09/14/2017 9:07 PM CDT Social Media Marketer: ALEXIS ??CALI John Carpenter MD LAB - POINT OF CARE ORDERABLES Performing Organization Address [facility]/ZIP Co de Phone Number [address] [phone] * (ABNORMAL) GLUCOSE - POINT OF CARE (09/14/2017 5:48 PM CDT) Glucose WB/POC 240(H) 70 - 115 mg/dL 09/14/2017 6:09 PM CDT [facility] Specimen Type Arterial/C apillary 09/14/2017 6:09 PM CDT [facility] Blood BLOOD SPECIMEN / Unknown 09/14/2017 5:48 PM CDT 09/14/2017 6:09 PM CDT Narrative [facility] - 09/14/2017 6:09 PM CDT Social Media Marketer: DEEP Garcia?ANIL John Carpenter MD LAB - POINT OF CARE ORDERABLES Performing Organization Address [facility]/[place] [address], [facility] [phone] * ECHO W DOPPLER AND COLOR FLOW (09/14/2017 3:59 PM CDT) Anatomical Region Laterality Modality Color Flow Doppl er 09/14/2017 3:29 PM CDT Narrative Procedure Note Migdalia Mace MD - 09/14/2017 Jose Hughes MD ECHOCARDIOGRAPHY RAD IANT * (ABNORMAL) GLUCOSE - POINT OF CARE (09/14/2017 12:27 PM CDT) Glucose WB/POC 263(H) 70 - 115 mg/dL 09/14/2017 12:47 PM CDT [facility] Specimen Type Arterial/C apillary 09/14/2017 12:47 PM CDT [facility] Blood BLOOD SPECIMEN / Unknown 09/14/2017 12:27 PM CDT 09/14/2017 12:47 PM CDT [facility] - 09/14/2017 12:47 PM CDT Social Media Marketer: DEEP GRIFFIN John Carpenter MD LAB - POINT OF CARE ORDERABLES Performing Organization Address [facility] Co de Phone Number [address] [phone] * (ABNORMAL) GLUCOSE - POINT OF CARE (09/14/2017 8:14 AM CDT) Glucose WB/POC 203(H) 70 - 115 mg/dL 09/14/2017 8:28 AM CDT [facility] Specimen Type Arterial/C apillary 09/14/2017 8:28 AM CDT [facility] Blood BLOOD SPECIMEN / Unknown 09/14/2017 8:14 AM CDT 09/14/2017 8:28 AM CDT Narrative [facility] - 09/14/2017 8:28 AM CDT Social Media Marketer: DEEP GRIFFIN John Carpenter MD LAB - POINT OF CARE ORDERABLES Performing Organization Address [facility]/ZIP Co de Phone Number [address] [phone] * PHOSPHORUS BLOOD (09/14/2017 3:53 AM CDT) Phosphorus 3.9 2.3 - 4.7 mg/dL 09/14/2017 4:55 AM [facility] Blood BLOOD SPECIMEN / Unknown Venipuncture / Unknown 09/14/2017 3:53 AM CDT 09/14/2017 4:29 AM CDT John Carpenter MD LAB - CHEMISTRY [facility] Organization Address City/State/[facility] Co de Phone Number [facility] [address] [place] [address] * CBC W/O DIFFERENTIAL (09/14/2017 3:53 AM CDT) WBC 10.1 3.5 - 10.5 10? 3 /uL 09/14/2017 4:34 AM [facility] RBC 4.67 3.90 - 5.00 10? 6 /uL 09/14/2017 4:34 AM [facility] Hemoglobin 14.4 12.0 - 15.5 g/dL 09/14/2017 4:34 AM [facility] Hematocrit 42.6 35.0 - 45.0 % 09/14/2017 4:34 AM [facility] MCV 91.2 81.0 - 97.0 fL 09/14/2017 4:34 AM [facility] MCH 30.8 28.0 - 34.0 pg 09/14/2017 4:34 AM [facility] MCHC 33.8 32.0 - 36.0 g/dL 09/14/2017 4:34 AM [facility] Platelet Count 220 150 - 400 10? 3 /uL 09/14/2017 4:34 AM [facility] RDW-SD 39.9 36.0 - 50.0 fL 09/14/2017 4:34 AM [facility] RDW-CV 12.0 11.2 - 14.8 % 09/14/2017 4:34 AM [facility] MPV 10.7 9.3 - 12.8 fL 09/14/2017 4:34 AM [facility] Blood BLOOD SPECIMEN / Unknown Venipuncture / Unknown 09/14/2017 3:53 AM CDT 09/14/2017 4:29 AM CDT John Carpenter MD LAB - HEMATOLOGY ORD ERABLES [facility] [address] [phone] * (ABNORMAL) COMPREHENSIVE METABOLIC PANEL (09/14/2017 3:53 AM CDT) BUN 17 7 - 26 mg/dL 09/14/2017 4:55 AM [facility] Creatinine 0.6 0.6 - 1.2 mg/dL 09/14/2017 4:55 AM [facility] Sodium 139 136 - 145 mmol/L 09/14/2017 4:55 AM [facility] Potassium 3.3(L) 3.5 - 4.5 mmol/L 09/14/2017 4:55 AM [facility] Chloride 105 98 - 107 mmol/L 09/14/2017 4:55 AM [facility] CO2 27 22 - 29 mmol/L 09/14/2017 4:55 AM [facility] Glucose 159(H) 70 - 115 mg/dL 09/14/2017 4:55 AM [facility] Calcium 9.3 8.4 - 10.2 mg/dL 09/14/2017 4:55 AM [facility] Protein Total 6.2 6.0 - 8.3 g/dL 09/14/2017 4:55 AM [facility] Albumin 3.0(L) 3.4 - 5.0 g/dL 09/14/2017 4:55 AM [facility] Bilirubin Total 0.5 0.2 - 1.2 mg/dL 09/14/2017 4:55 AM [facility] Alkaline Phosphatase 88 40 - 150 Units/L 09/14/2017 4:55 AM [facility] ALT 11 0 - 55 Units/L 09/14/2017 4:55 AM [facility] AST 12 5 - 34 Units/L 09/14/2017 4:55 AM [facility] Anion Gap 10 8 - 18 09/14/2017 4:55 AM [facility] BUN/Creatinine Ratio 28(H) 7 - 23 09/14/2017 4:55 AM [facility] Osmolality Calculated 293 270 - 300 mOsm/kg 09/14/2017 4:55 AM [facility] Albumin/Globulin Ratio 0.9(L) 1.1 - 2.3 09/14/2017 4:55 AM [facility] eGFR >60 >60 mL/min/1.7 3 m2 09/14/2017 4:55 AM [facility] Blood BLOOD SPECIMEN / Unknown Venipuncture / Unknown 09/14/2017 3:53 AM CDT 09/14/2017 4:29 AM CDT John Carpenter MD LAB - CHEMISTRY ORDE RABLES Performing Organization Address [facility]/ZIP Co de Phone Number [address] [phone] * (ABNORMAL) GLUCOSE - POINT OF CARE (09/14/2017 3:33 AM CDT) Glucose WB/POC 165(H) 70 - 115 mg/dL 09/14/2017 6:23 AM [facility] Specimen Type Arterial/C apillary 09/14/2017 6:23 AM [facility] Blood BLOOD SPECIMEN / Unknown 09/14/2017 3:33 AM CDT 09/14/2017 6:23 AM CDT Narrative [facility] - 09/14/2017 6:23 AM CDT Social Media Marketer: ROGELIO ??WEI John Carpenter MD LAB - POINT OF CARE ORDERABLES [address] [phone] * (ABNORMAL) GLUCOSE - POINT OF CARE (09/13/2017 11:47 PM CDT) Glucose WB/POC 155(H) 70 - 115 mg/dL 09/14/2017 12:03 AM CDT [facility] Specimen Type Arterial/C apillary 09/14/2017 12:03 AM CDT [facility] Blood BLOOD SPECIMEN / Unknown 09/13/2017 11:47 PM CDT 09/14/2017 12:03 AM CDT [facility] - 09/14/2017 12:03 AM CDT Social Media Marketer: ROGELIO KIM John Carpenter MD LAB - POINT OF CARE ORDERABLES Performing Organization Address [facility]/ZIP Co de Phone Number [address] [phone] * (ABNORMAL) GLUCOSE - POINT OF CARE (09/13/2017 7:56 PM CDT) Glucose WB/POC 201(H) 70 - 115 mg/dL 09/13/2017 8:42 PM CDT [facility] Specimen Type Arterial/C apillary 09/13/2017 8:42 PM CDT [facility] Blood BLOOD SPECIMEN / Unknown 09/13/2017 7:56 PM CDT 09/13/2017 8:42 PM CDT [facility] - 09/13/2017 8:42 PM CDT Social Media Marketer: ROGELIO KIM John Carpenter MD LAB - POINT OF CARE ORDERABLES Performing Organization Address [facility] Co de Phone Number [address] [phone] * (ABNORMAL) GLUCOSE - POINT OF CARE (09/13/2017 5:11 PM CDT) Glucose WB/POC 187(H) 70 - 115 mg/dL 09/13/2017 5:27 PM CDT [facility] Specimen Type Arterial/C apillary 09/13/2017 5:27 PM CDT [facility] Blood BLOOD SPECIMEN / Unknown 09/13/2017 5:11 PM CDT 09/13/2017 5:27 PM CDT [facility] - 09/13/2017 5:27 PM CDT Social Media Marketer: SETH BERUMEN John Carpenter MD LAB - POINT [place] [address], [facility] [phone] * (ABNORMAL) GLUCOSE - POINT OF CARE (09/13/2017 3:40 PM CDT) Glucose WB/POC 215(H) 70 - 115 mg/dL 09/13/2017 4:50 PM CDT [facility] Specimen Type Arterial/C apillary 09/13/2017 4:50 PM CDT [facility] Blood BLOOD SPECIMEN / Unknown 09/13/2017 3:40 PM CDT 09/13/2017 4:50 PM CDT Narrative [facility] - 09/13/2017 4:50 PM CDT Social Media Marketer: FELICIA ?TEMITOPE John Carpenter MD LAB - POINT OF CARE ORDERABLES Performing Organization Address [facility]/[place] [address], [facility] [phone] * (ABNORMAL) GLUCOSE - POINT OF CARE (09/13/2017 12:27 PM CDT) Glucose WB/POC 262(H) 70 - 115 mg/dL 09/13/2017 1:06 PM CDT [facility] Specimen Type Arterial/C apillary 09/13/2017 1:06 PM CDT [facility] Blood BLOOD SPECIMEN / Unknown 09/13/2017 12:27 PM CDT 09/13/2017 1:06 PM CDT Narrative [facility] - 09/13/2017 1:06 PM CDT Social Media Marketer: SETH BERUMEN John Carpenter MD LAB - POINT OF CARE ORDERABLES Performing Organization Address City/[facility]/[place] [address], [facility] [phone] * CARDIAC EKG ORDER (09/13/2017 9:35 AM CDT) Narrative 09/13/2017 9:35 AM CDT Ordered by an unspecified provider. Scanned Document CARDIAC SERVICES ORD ERABLES * CARDIAC EKG ORDER (09/13/2017 9:35 AM CDT) Narrative 09/13/2017 9:35 AM CDT Ordered by an unspecified provider. Scanned Document CARDIAC SERVICES ORD ERABLES * (ABNORMAL) GLUCOSE - POINT OF CARE (09/13/2017 7:32 AM CDT) Glucose WB/POC 240(H) 70 - 115 mg/dL 09/13/2017 7:49 AM CDT [facility] Specimen Type Arterial/C apillary 09/13/2017 7:49 AM CDT [facility] Blood BLOOD SPECIMEN / Unknown 09/13/2017 7:32 AM CDT 09/13/2017 7:49 AM CDT [facility] - 09/13/2017 7:49 AM CDT Social Media Marketer: SETH ?TORO John Carpenter MD LAB - POINT OF CARE ORDERABLES [address] [phone] * (ABNORMAL) GLUCOSE - POINT OF CARE (09/13/2017 4:04 AM CDT) Glucose WB/POC 193(H) 70 - 115 mg/dL 09/13/2017 4:22 AM CDT [facility] Specimen Type Arterial/C apillary 09/13/2017 4:22 AM CDT [facility] Blood BLOOD SPECIMEN / Unknown 09/13/2017 4:04 AM CDT 09/13/2017 4:22 AM CDT [facility] - 09/13/2017 4:22 AM CDT Social Media Marketer: KENYON LARSEN John Carpenter MD LAB - POINT OF CARE ORDERABLES [address] [phone] * PHOSPHORUS BLOOD (09/13/2017 3:42 AM CDT) Phosphorus 3.2 2.3 - 4.7 mg/dL 09/13/2017 4:29 AM [facility] Blood BLOOD SPECIMEN / Unknown Line Draw / Unknown 09/13/2017 3:42 AM CDT 09/13/2017 4:02 AM CDT John Carpenter MD LAB - CHEMISTRY [facility] Organization Address City/State/ZIP Co de Phone Number [facility] [address] [phone] * CBC W/O DIFFERENTIAL (09/13/2017 3:42 AM CDT) WBC 10.5 3.5 - 10.5 10? 3 /uL 09/13/2017 4:18 AM [facility] RBC 4.55 3.90 - 5.00 10? 6 /uL 09/13/2017 4:18 AM [facility] Hemoglobin 14.0 12.0 - 15.5 g/dL 09/13/2017 4:18 AM [facility] Hematocrit 41.7 35.0 - 45.0 % 09/13/2017 4:18 AM [facility] MCV 91.6 81.0 - 97.0 fL 09/13/2017 4:18 AM [facility] MCH 30.8 28.0 - 34.0 pg 09/13/2017 4:18 AM [facility] MCHC 33.6 32.0 - 36.0 g/dL 09/13/2017 4:18 AM [facility] Platelet Count 208 150 - 400 10? 3 /uL 09/13/2017 4:18 AM [facility] RDW-SD 41.0 36.0 - 50.0 fL 09/13/2017 4:18 AM [facility] RDW-CV 12.2 11.2 - 14.8 % 09/13/2017 4:18 AM [facility] MPV 10.7 9.3 - 12.8 fL 09/13/2017 4:18 AM [facility] Blood BLOOD SPECIMEN / Unknown Line Draw / Unknown 09/13/2017 3:42 AM CDT 09/13/2017 4:02 AM T John Carpenter MD LAB - HEMATOLOGY ORD ERABLES [facility] [address] [phone] * (ABNORMAL) COMPREHENSIVE METABOLIC PANEL (09/13/2017 3:42 AM CDT) BUN 13 7 - 26 mg/dL 09/13/2017 4:29 AM [facility] Creatinine 0.6 0.6 - 1.2 mg/dL 09/13/2017 4:29 AM [facility] Sodium 140 136 - 145 mmol/L 09/13/2017 4:29 AM [facility] Potassium 3.3(L) 3.5 - 4.5 mmol/L 09/13/2017 4:29 AM [facility] Chloride 105 98 - 107 mmol/L 09/13/2017 4:29 AM [facility] CO2 25 22 - 29 mmol/L 09/13/2017 4:29 AM [facility] Glucose 208(H) 70 - 115 mg/dL 09/13/2017 4:29 AM [facility] Calcium 9.0 8.4 - 10.2 mg/dL 09/13/2017 4:29 AM [facility] Protein Total 6.1 6.0 - 8.3 g/dL 09/13/2017 4:29 AM [facility] Albumin 2.9(L) 3.4 - 5.0 g/dL 09/13/2017 4:29 AM [facility] Bilirubin Total 0.7 0.2 - 1.2 mg/dL 09/13/2017 4:29 AM [facility] Alkaline Phosphatase 87 40 - 150 Units/L 09/13/2017 4:29 AM [facility] ALT 11 0 - 55 Units/L 09/13/2017 4:29 AM [facility] AST 13 5 - 34 Units/L 09/13/2017 4:29 AM [facility] Anion Gap 13 8 - 18 09/13/2017 4:29 AM [facility] BUN/Creatinine Ratio 22 7 - 23 09/13/2017 4:29 AM [facility] Osmolality Calculated 296 270 - 300 mOsm/kg 09/13/2017 4:29 AM [facility] Albumin/Globulin Ratio 0.9(L) 1.1 - 2.3 09/13/2017 4:29 AM [facility] eGFR >60 >60 mL/min/1.7 3 m2 09/13/2017 4:29 AM [facility] Blood BLOOD SPECIMEN / Unknown Line Draw / Unknown 09/13/2017 3:42 AM CDT 09/13/2017 4:02 AM T John Carpenter MD LAB - CHEMISTRY [facility] Organization Address City/State/ZIP Co de Phone Number [address] [phone] * (ABNORMAL) HEMOGLOBIN A1C (09/13/2017 3:42 AM CDT) Hemoglobin A1c 13.4(H) 4.4 - 6.3 % 09/13/2017 8:10 AM [facility] Estimated Average Glucose 338 mg/dL 09/13/2017 8:10 AM [facility] Comment: HbA1c Interpretation: Treatment target values recommended by ADA and other clinical organizations should be used to evaluate metabolic control in patients. Treatment Target Values: Normal : < 5.7% Pre-diabetes: 5.7-6.4% Diabetes: Equal to or greater than 6.5% Reference: [place] [employer] Standards of Care in Diabetes -2014 In patients 70 years and older consider HbA1c target range of 7.0-7.5% Reference: ??Diabetes Mellitus in Older People: Position Statement on behalf of the International Association of Gerontology and Geriatrics (IAGG), the Diabetes Working [employer] for Older People (EDWPOP), and the International Task Force of Experts in Diabetes. ??Mookie Gomez, et al. J [employer]. 2012 Test results diagnostic of diabetes should be repeated for confirmation. The Tosoh G8 assay for the measurement of HbA1c is a National Glycohemoglobin Standardization Program (NGSP)certified method. Results for patients with HbE disease should be interpreted with caution as this hemoglobinopathy has been shown to interfere with the Tosoh G8 assay. Whole Blood BLOOD SPECIMEN WITH EDTA / Unknown Line Draw / Unknown 09/13/2017 3:42 AM CDT 09/13/2017 4:02 AM CDT Jose Hughes MD LAB - CHEMISTRY [facility] Performing Organization Address City/[facility]/ZIP Co de Phone Number [address] [phone] * (ABNORMAL) GLUCOSE - POINT OF CARE (09/13/2017 12:04 AM CDT) Glucose WB/POC 210(H) 70 - 115 mg/dL 09/13/2017 12:25 AM CDT [facility] Specimen Type Arterial/C apillary 09/13/2017 12:25 AM CDT [facility] Blood BLOOD SPECIMEN / Unknown 09/13/2017 12:04 AM CDT 09/13/2017 12:25 AM CDT [facility] - 09/13/2017 12:25 AM CDT Social Media Marketer: KENYON LARSEN John Carepnter MD LAB - POINT OF CARE ORDERABLES Performing Organization Address [facility] Co de Phone Number [address] [phone] * (ABNORMAL) GLUCOSE - POINT OF CARE (09/12/2017 9:15 PM CDT) Glucose WB/POC 233(H) 70 - 115 mg/dL 09/12/2017 9:30 PM CDT [facility] Specimen Type Arterial/C apillary 09/12/2017 9:30 PM CDT [facility] Blood BLOOD SPECIMEN / Unknown 09/12/2017 9:15 PM CDT 09/12/2017 9:30 PM CDT [facility] - 09/12/2017 9:30 PM CDT Social Media Marketer: KENYON ??DAREK John Carpenter MD LAB - POINT OF CARE ORDERABLES Performing Organization Address City/[facility]/[place] [address], [facility] [phone] * (ABNORMAL) GLUCOSE - POINT OF CARE (09/12/2017 6:40 PM CDT) Glucose WB/POC 220(H) 70 - 115 mg/dL 09/12/2017 6:57 PM CDT [facility] Specimen Type Arterial/C apillary 09/12/2017 6:57 PM CDT [facility] Blood BLOOD SPECIMEN / Unknown 09/12/2017 6:40 PM CDT 09/12/2017 6:57 PM CDT Narrative [facility] - 09/12/2017 6:57 PM CDT Social Media Marketer: MARTA ??BEHZAD John Carpenter MD LAB - POINT OF CARE ORDERABLES Performing Organization Address [facility] [place] [address], [facility] [phone] * MRI BRAIN NON CONTRAST (09/12/2017 4:32 PM CDT) Anatomical Region Laterality Modality Head Magnetic Resonan ce 09/12/2017 4:42 PM CDT Impressions 09/13/2017 10:52 AM CDT IMPRESSION: 1. Small volume acute left basal ganglia infarct without hemorrhagic conversion. I, Dr. Ruben Matthews have personally reviewed and interpreted this examination/study. This report was electronically signed by Ruben Matthews ??on 09/13/2017 10:52 AM . Narrative 09/13/2017 10:52 AM CDT EXAMINATION: Magnetic resonance imaging (MRI) of the brain without contrast HISTORY: R53.1: Weakness TECHNIQUE: MRI of the brain was performed without contrast according to standard protocol. FINDINGS: No prior study is available for comparison at the time of this dictation. No evidence of acute or chronic hemorrhage is identified. There is abnormal signal on DWI in the left basal ganglia with matching hypointensity on the ADC map, consistent with an acute infarct. There is matching T2 signal abnormality. The ventricles are nondilated. No mass effect or midline shift is seen. Periventricular and subcortical white matter FLAIR hyperintensities likely represent sequelae of chronic small vessel ischemic disease. The corpus callosum and sella appear normal. The posterior fossa, brainstem, and craniocervical junction appear normal. The visualized portions of the orbits, paranasal sinuses, and mastoids appear normal. Normal flow voids are demonstrated in the carotid arteries and basilar artery. The calvarium and visualized cervical spine appear normal. Procedure Note Ruben Matthews MD - 09/13/2017 EXAMINATION: Magnetic resonance imaging (MRI) of the brain withoutcontrast HISTORY: R53.1: Weakness TECHNIQUE: MRI of the brain was performed without contrast according to standard protocol. FINDINGS: No prior study is available for comparison at the time of this dictation. No evidence of acute or chronic hemorrhage is identified. There is abnormal signal on DWI in the left basal ganglia with matching hypointensity on the ADC map, consistent with an acute infarct. There is matching T2 signal abnormality. The ventricles are nondilated. No mass effect or midline shift is seen. Periventricular and subcortical white matter FLAIR hyperintensities likely represent sequelae of chronic small vessel ischemic disease. The corpus callosum and sella appear normal.The posterior fossa, brainstem, and craniocervical junction appear normal. The visualized portions of the orbits, paranasal sinuses, and mastoids appear normal. Normal flow voids are demonstrated in the carotidarteries and basilar artery. The calvarium and visualized cervical spine appear normal. IMPRESSION: 1. Small volume acute left basal ganglia infarct without hemorrhagic conversion. I, Dr. Ruben Matthews have personally reviewed and interpreted this examination/study. This report was electronically signed by Ruben Matthews on 09/13/2017 10:52 AM . John Carpenter MD MR ORDERABLES * (ABNORMAL) GLUCOSE - POINT OF CARE (09/12/2017 3:01 PM CDT) Glucose WB/POC 263(H) 70 - 115 mg/dL 09/12/2017 3:15 PM CDT [facility] Specimen Type Arterial/C apillary 09/12/2017 3:15 PM CDT [facility] Blood BLOOD SPECIMEN / Unknown 09/12/2017 3:01 PM CDT 09/12/2017 3:15 PM CDT [facility] - 09/12/2017 3:15 PM CDT Social Media Marketer: ANIL MAJOR René Lawrence MD LAB - POINT OF CARE ORDERABLES Performing Organization Address City/[facility]/ZIP Co de Phone Number [address] [phone] * (ABNORMAL) GLUCOSE - POINT OF CARE (09/12/2017 1:19 PM CDT) Glucose WB/POC 272(H) 70 - 115 mg/dL 09/12/2017 1:32 PM CDT [facility] Specimen Type Arterial/C apillary 09/12/2017 1:32 PM CDT [facility] Blood BLOOD SPECIMEN / Unknown 09/12/2017 1:19 PM CDT 09/12/2017 1:32 PM CDT [facility] - 09/12/2017 1:32 PM CDT Social Media Marketer: NAYAN EWING René Lawrence MD LAB - POINT OF CARE ORDERABLES Performing Organization Address [facility]/ZIP Co de Phone Number [address] [phone] * (ABNORMAL) GLUCOSE - POINT OF CARE (09/12/2017 12:29 PM CDT) Glucose WB/POC 266(H) 70 - 115 mg/dL 09/13/2017 5:11 PM CDT [facility] Specimen Type Arterial/C apillary 09/13/2017 5:11 PM CDT [facility] Blood BLOOD SPECIMEN / Unknown 09/12/2017 12:29 PM CDT 09/13/2017 5:11 PM CDT [facility] - 09/13/2017 5:11 PM CDT Social Media Marketer: NETO ??KIRSTIN René Lawrence MD LAB - POINT OF CARE ORDERABLES [address] [phone] * (ABNORMAL) GLUCOSE - POINT OF CARE (09/12/2017 11:09 AM CDT) Glucose WB/POC 331(H) 70 - 115 mg/dL 09/12/2017 3:15 PM CDT [facility] Specimen Type Arterial/C apillary 09/12/2017 3:15 PM CDT [facility] Blood BLOOD SPECIMEN / Unknown 09/12/2017 11:09 AM CDT 09/12/2017 3:15 PM CDT Narrative [facility] - 09/12/2017 3:15 PM CDT Social Media Marketer: NAYAN ??STEPHANIE René Lawrence MD LAB - POINT OF CARE ORDERABLES Performing Organization Address [facility] Co de Phone Number [address] [phone] * CULTURE URINE (09/12/2017 10:38 AM CDT) Pathologist [facility] Culture Urine 10,000-50,000 CFU/mL urogenital darryl KIMBERLY 09/13/2017 9:51 AM CDT [facility] MICROBIOLOGY Urine URINE SPECIMEN OBTAINED BY CLEAN CATCH PROCEDURE / Unknown Collection / Unknown 09/12/2017 10:38 AM CDT 09/12/2017 10:38 AM CDT Alesha Aragon MD LAB - MICROBIOLOGY O RDERABLES [facility] MICROBIOLOGY [address] [place] [address], [facility] [phone] * (ABNORMAL) URINALYSIS W/MICROSCOPIC NO CULTURE (09/12/2017 10:38 AM CDT) Color UA Yellow Straw, Yellow, Colorless, Light Yellow 09/12/2017 10:51 AM CDT [facility] Clarity UA Clear Clear 09/12/2017 10:51 AM CDT [facility] Specific [place] UA >1.040(H) 1.001 - 1.030 09/12/2017 10:51 AM [facility] pH UA 6.0 5.0 - 8.0 09/12/2017 10:51 AM [facility] Protein UA Negative <=20 mg/dL 09/12/2017 10:51 AM [facility] Glucose UA >1000(A) Negative mg/dL 09/12/2017 10:51 AM [facility] Ketone UA Trace(A) Negative mg/dL 09/12/2017 10:51 AM [facility] Bilirubin UA Negative Negative mg/dL 09/12/2017 10:51 AM [facility] Blood UA Negative Negative 09/12/2017 10:51 AM [facility] Nitrite UA Negative Negative 09/12/2017 10:51 AM [facility] Leukocyte Esterase Small(A) Negative 09/12/2017 10:51 AM [facility] Urobilinogen UA <2.0 <2.0 mg/dL 8 10:51 AM [facility] RBC UA 3 0 - 8 /HPF 09/12/2017 10:51 AM [facility] WBC UA 22(H) 0 - 2 /HPF 09/12/2017 10:51 AM [facility] Bacteria UA Occasional Rare, Occasional, None /HPF 09/12/2017 10:51 AM [facility] Squamous Epithelial Cells UA <1 0 - 1 /HPF 09/12/2017 10:51 AM [facility] Renal Epithelial UA <1 0 - 1 /HPF 09/12/2017 10:51 AM [facility] Urine URINE SPECIMEN OBTAINED BY CLEAN CATCH PROCEDURE / Unknown Collection / Unknown 09/12/2017 10:38 AM T 09/12/2017 10:38 AM [facility] - 09/12/2017 10:51 AM [facility] Specific gravity results confirmed by refractometer. Alesha Aragon MD LAB - URINALYSIS ORD ERABLES [address] [phone] * DRUG SCREEN TOX URINE PANEL (09/12/2017 10:38 AM [facility]) [facility] Amphetamines Screen Urine Negative Negative: < 1000 ng/mL 09/12/2017 11:02 AM [facility] Barbiturates Screen Urine Negative Negative: < 200 ng/mL 09/12/2017 11:02 AM [facility] Benzodiazepine Screen Urine Negative Negative: < 200 ng/mL 09/12/2017 11:02 AM [facility] Opiates Urine Negative Negative: < 300 ng/mL 09/12/2017 11:02 AM [facility] Cocaine Metabolites Urine Negative Negative: < 300 ng/mL 09/12/2017 11:02 AM [facility] Phencyclidine Screen Urine Negative Negative: < 25 ng/ml 09/12/2017 11:02 AM [facility] Cannabinoids Screen Urine Negative Negative: <50 ng/mL 09/12/2017 11:02 AM [facility] Methadone Screen Urine Negative Negative: < 300 ng/mL 09/12/2017 11:02 AM [facility] Urine URINE / Unknown Collection / Unknown 09/12/2017 10:38 AM T 09/12/2017 10:38 AM [facility] - 09/12/2017 11:02 AM [facility] The Urine Toxicology Screening Panel does not screen for Propoxyphene, Meprobamate, Carisoprodol, Trazodone, [id number]-pjvepsx medications and/or volatiles (Acetone, Isopropanol, Methanol or Ethylene Glycol). Ethanol, Salicylate, Acetaminophen, Tricyclic Antidepressants and several therapeutic drugs may be individually assayed in serum or plasma specimen. Toxicology testing by the [facility] is an aid to medical diagnosis and treatment of patients. No documented chain of custody was maintained. Results are intended to be used for clinical purposes only. ? Alesha Aragon MD LAB - URINE CHEMISTR Y ORDERABLES Performing Organization Address [facility] Co de Phone Number [address] [phone] * TROPONIN I (09/12/2017 10:00 AM CDT) [facility] Troponin I <0.010 <0.032 ng/mL 09/12/2017 10:49 AM T [facility] Blood BLOOD SPECIMEN / Unknown Venipuncture / Unknown 09/12/2017 10:00 AM CDT 09/12/2017 10:12 AM CDT Jose Hughes MD LAB - CHEMISTRY [facility] Performing Organization Address [facility] Co de Phone Number [address] [phone] * (ABNORMAL) LIPID PROFILE (09/12/2017 10:00 AM CDT) [facility] Cholesterol Total 188 <200 mg/dL 09/12/2017 10:41 AM [facility] HDL 28(L) >40 mg/dL 09/12/2017 10:41 AM [facility] Comment: ATP III Classification of HDL Cholesterol: ? <40 mg/dL: ??Considered a major risk factor. ? >60 mg/dL: ??Considered a negative risk factor. ? LDL Calculated 80 <100 mg/dL 09/12/2017 10:41 AM [facility] Comment: ATP III Classification of LDL Cholesterol: ?<100 mg/dL: ??Optimal ? 100 - 129 mg/dL: ??Near Optimal/Above Optimal ? 130 - 159 mg/dL: ??Borderline High ? 160 - 189 mg/dL: ??High ?>190 mg/dL: ??Very High ? Triglycerides 400(H) <150 mg/dL 09/12/2017 10:41 AM CDT [facility] Comment: ATP III Classification of Triglycerides: ?<150 mg/dL: ??Normal ? 150 - 199 mg/dL: ??Borderline High ? 200 - 400 mg/dL: ??High ?>500 mg/dL: ??Very High Blood BLOOD SPECIMEN / Unknown Venipuncture / Unknown 09/12/2017 10:00 AM CDT 09/12/2017 10:12 AM CDT John Carpenter MD LAB - CHEMISTRY MYLA GOOD Performing Organization Address City/State/[facility] Co de Phone Number [facility] [address] [place] [address] * B-TYPE NATRIURETIC PEPTIDE (09/12/2017 9:51 AM CDT) BNP <10 See Comment pg/mL 09/12/2017 10:29 AM CDT [facility] Comment: A decision threshold of 100 pg/mL [...] - CHEMISTRY MYLA GOOD Performing Organization Address [facility] [facility] Phone Number [address] [phone] * PTT [facility] (09/12/2017 9:51 AM CDT) [facility] Signature APTT 25.7 23.0 - 38.4 Seconds 09/12/2017 10:25 AM CDT [facility] Comment: Suggested therapeutic range for full dose I.V. heparin therapy for venous thromboembolism is 66.0-91.0 seconds. Blood BLOOD SPECIMEN / Unknown Venipuncture / Unknown 09/12/2017 9:51 AM CDT 09/12/2017 9:55 AM CDT Alesha Aragon MD LAB - COAGULATION OR DERABLES Performing Organization Address [facility] [place] [address], [place] [phone] * PT-INR [facility] (09/12/2017 9:51 AM CDT) PT 13.0 12.1 - 14.8 Seconds 09/12/2017 10:24 AM CDT [facility] INR 1.0 See Comment 09/12/2017 10:24 AM CDT [facility] Comment: Suggested therapeutic range for low-intensity coumadin therapy for venous thromboembolism prophylaxis is an INR of 2.0-3.0. ??For high risk patients (Mitral Valve Prosthesis, Atrial Fibrillation, history of TIA/stroke), suggested prophylactic therapeutic range is an INR of 2.5-3.5. Blood BLOOD SPECIMEN / Unknown Venipuncture / Unknown 09/12/2017 9:51 AM CDT 09/12/2017 9:55 AM CDT Alesha Aragon MD LAB - COAGULATION OR DERABLES [facility] [address] [phone] * XR CHEST 1VW PORTABLE (09/12/2017 9:50 AM CDT) Anatomical Region Laterality Modality Chest Radiographic Ashely ging 09/12/2017 9:56 AM CDT Impressions 09/12/2017 1:06 PM CDT IMPRESSION: No acute pulmonary process. Dictated by Jamaal Boswell MD (radiology clerk). Dr. Tj Madrigal M.D. have personally reviewed and interpreted this examination/study. This report was electronically signed by Tj JAIME M.D. ??on 09/12/2017 1:06 PM . Narrative 09/12/2017 1:06 PM CDT EXAMINATION: XR CHEST 1VW PORTABLE HISTORY: R53.1: Weakness COMPARISON: No prior study is available for comparison. FINDINGS: The lungs are clear. There is no focal consolidation, pleural effusion, or pneumothorax. The cardiac silhouette is normal. The aorta is atherosclerotic. The visible bony thorax is intact. Procedure Note Maira Jaime MD - 09/12/2017 EXAMINATION: XR CHEST 1VW PORTABLE HISTORY: R53.1: Weakness COMPARISON: No prior study is available for comparison. FINDINGS: The lungs are clear. There is no focal consolidation, pleural effusion,or pneumothorax. The cardiac silhouette is normal. The aorta is atherosclerotic. The visible bony thorax is intact. IMPRESSION: No acute pulmonary process. Dictated by Jamaal Boswell MD (radiology clerk). I, Dr. Tj JAIME M.D. have personally reviewed and interpretedthis examination/study. This report was electronically signed by Tj JAIME M.D. on 09/12/2017 1:06 PM . Alesha Aragon MD DIAGNOSTIC IMAGING O RDERABLES * EKG 12-LEAD (09/12/2017 9:45 AM CDT) Ventricular Rate 79 BPM [facility] Atrial Rate 79 BPM [facility] P-R Interval 158 ms [facility] QRS Duration ms 82 ms [facility] Q-T Interval ms 398 ms H MUSE QTC Calculation (Bezet) 456 ms [facility] MUSE Calculated P Gilberts 44 degrees [facility] MUSE Calculated R Gilberts -40 degrees [facility] MUSE Calculated T Gilberts 39 degrees [facility] MUSE Interpretation EKG Normal sinus rhythm~Left axis deviation~P robably Inferior infarct , age undetermine d~Abnormal ECG~No previous ECGs available~C onfirmed by Royce COOPER, KIRBY ([id number]), editor school photograph Mateo Olsen ([id number]) on 09/18/2017 12:02:31 PM [facility] MUSE 09/12/2017 9:45 AM CDT 09/18/2017 12:02 PM CDT Alesha Aragon MD ECG ORDERABLES [facility] MUSE * TROPONIN I (09/12/2017 9:43 AM CDT) Troponin I <0.010 <0.032 ng/mL 09/12/2017 10:17 AM CDT [facility] Blood BLOOD SPECIMEN / Unknown Venipuncture / Unknown 09/12/2017 9:43 AM CDT 09/12/2017 9:50 AM CDT Alesha Aragon MD LAB - CHEMISTRY [facility] Organization Address City/State/ZIP Co de Phone Number [facility] [address] [phone] * (ABNORMAL) BLOOD GASES ALLYSON (09/12/2017 9:43 AM CDT) Pathologist [facility] pH Mixed Venous 7.41(H) 7.30 - 7.40 09/12/2017 9:54 AM [facility] pCO2 Mixed Venous 43 40 - 46 mmHg 09/12/2017 9:54 AM [facility] pO2 Mixed Venous 40 35 - 42 mmHg 09/12/2017 9:54 AM [facility] HCO3 Mixed Venous 26.2(H) 22.0 - 26.0 mmol/L 09/12/2017 9:54 AM [facility] TCO2 Mixed Venous 27.5 25.0 - 29.0 mmol/L 09/12/2017 9:54 AM [facility] Base Excess Venous 1.2 -2.0 - 2.0 mmol/L 09/12/2017 9:54 AM [facility] Hemoglobin Mixed Venous 14.5 12.0 - 15.5 g/dL 09/12/2017 9:54 AM [facility] Oxyhemoglobin Mixed Venous 77.0 66.0 - 77.0 % 09/12/2017 9:54 AM [facility] Carboxyhemoglobin Venous 3.8(H) 0.0 - 3.0 % 09/12/2017 9:54 AM [facility] Methemoglobin 0.3 0.0 - 2.0 % 09/12/2017 9:54 AM [facility] FI O2 Mixed Venous 21.0 % 2017 9:54 AM [facility] Blood BLOOD SPECIMEN / Unknown Venipuncture / Unknown 09/12/2017 9:43 AM CDT 09/12/2017 9:49 AM CDT Alesha Aragon MD LAB - BLOOD GASES OR DERABLES Performing Organization Address [facility]/ZIP Co de Phone Number [address] [phone] * (ABNORMAL) HYDROXYBUTYRATE BETA (09/12/2017 9:43 AM CDT) Beta-Hydroxybu tyrate 0.64(H) 0.02 - 0.27 mmol/L 09/12/2017 10:14 AM CDT [facility] Blood BLOOD SPECIMEN / Unknown Venipuncture / Unknown 09/12/2017 9:43 AM CDT 09/12/2017 9:50 AM CDT Alesha Aragon MD LAB - CHEMISTRY MYLA GOOD Performing Organization Address [facility] Co de Phone Number [address] [phone] * PHOSPHORUS BLOOD (09/12/2017 9:43 AM CDT) Phosphorus 4.1 2.3 - 4.7 mg/dL 09/12/2017 10:09 AM CDT [facility] Blood BLOOD SPECIMEN / Unknown Venipuncture / Unknown 09/12/2017 9:43 AM CDT 09/12/2017 9:50 AM CDT Alesha Aragon MD LAB - CHEMISTRY MYLA GOOD Performing Organization Address [facility] Co de Phone Number [address] [phone] * (ABNORMAL) MAGNESIUM BLOOD (09/12/2017 9:43 AM CDT) Magnesium 1.4(L) 1.6 - 2.6 mg/dL 09/12/2017 10:09 AM CDT [facility] Blood BLOOD SPECIMEN / Unknown Venipuncture / Unknown 09/12/2017 9:43 AM CDT 09/12/2017 9:50 AM CDT Alesha Aragon MD LAB - CHEMISTRY MYLA GOOD [address] [phone] * ALCOHOL ETHYL BLOOD (09/12/2017 9:43 AM CDT) Pathologist [facility] Interpretation Ethanol None Detected None Detected mg/dL 09/12/2017 10:11 AM [facility] Comment: Ethanol levels less than 10 mg/dL are resulted as None detected . Blood BLOOD SPECIMEN / Unknown Venipuncture / Unknown 09/12/2017 9:43 AM CDT 09/12/2017 9:50 AM CDT Alesha Aragon MD LAB - CHEMISTRY MYLA GOOD Performing Organization Address [facility]/ZIP Co de Phone Number [address] [phone] * (ABNORMAL) CBC W AUTO DIFFERENTIAL (09/12/2017 9:43 AM CDT) [facility] WBC 8.8 3.5 - 10.5 10? 3 /uL 09/12/2017 9:52 AM [facility] RBC 4.67 3.90 - 5.00 10? 6 /uL 09/12/2017 9:52 AM [facility] Hemoglobin 14.6 12.0 - 15.5 g/dL 09/12/2017 9:52 AM [facility] Hematocrit 41.7 35.0 - 45.0 % 09/12/2017 9:52 AM [facility] MCV 89.3 81.0 - 97.0 fL 09/12/2017 9:52 AM [facility] MCH 31.3 28.0 - 34.0 pg 09/12/2017 9:52 AM [facility] MCHC 35.0 32.0 - 36.0 g/dL 09/12/2017 9:52 AM [facility] Platelet Count 213 150 - 400 10? 3 /uL 09/12/2017 9:52 AM [facility] RDW-SD 38.1 36.0 - 50.0 fL 09/12/2017 9:52 AM [facility] RDW-CV 11.9 11.2 - 14.8 % 09/12/2017 9:52 AM [facility] MPV 10.9 9.3 - 12.8 fL 09/12/2017 9:52 AM [facility] Neutrophils % 60.4 35.0 - 70.0 % 09/12/2017 9:52 AM [facility] Lymphocytes % 29.5 19.7 - 55.1 % 09/12/2017 9:52 AM [facility] Monocytes % 6.5 3.0 - 15.0 % 09/12/2017 9:52 AM [facility] Eosinophils % 3.3 0.0 - 6.0 % 09/12/2017 9:52 AM [facility] Basophil % 0.3 0.0 - 1.5 % 09/12/2017 9:52 AM [facility] Neutrophils Absolute 5.3 1.6 - 7.0 10? 3 /uL 09/12/2017 9:52 AM [facility] Lymphocyte Absolute 2.6 0.8 - 2.9 10? 3 /uL 09/12/2017 9:52 AM [facility] Monocytes Absolute 0.57 0.14 - 0.66 10? 3 /uL 09/12/2017 9:52 AM [facility] Eosinophils Absolute 0.29(H) 0.00 - 0.22 10? 3 /uL 09/12/2017 9:52 AM [facility] Basophils Absolute 0.03 0.00 - 0.06 10? 3 /uL 09/12/2017 9:52 AM [facility] Immature Granulocytes % 0.3 0.0 - 1.0 % 09/12/2017 9:52 AM [facility] Blood BLOOD SPECIMEN / Unknown Venipuncture / Unknown 09/12/2017 9:43 AM CDT 09/12/2017 9:50 AM CDT Alesha Aragon MD LAB - HEMATOLOGY ORD ERABLES [facility] [address] [phone] * (ABNORMAL) COMPREHENSIVE METABOLIC PANEL (09/12/2017 9:43 AM CDT) BUN 11 7 - 26 mg/dL 09/12/2017 10:14 AM [facility] Creatinine 0.6 0.6 - 1.2 mg/dL 09/12/2017 10:14 AM [facility] Sodium 136 136 - 145 mmol/L 09/12/2017 10:14 AM [facility] Potassium 4.1 3.5 - 4.5 mmol/L 09/12/2017 10:14 AM [facility] Chloride 99 98 - 107 mmol/L 09/12/2017 10:14 AM [facility] CO2 25 22 - 29 mmol/L 09/12/2017 10:14 AM [facility] Glucose 458(H) 70 - 115 mg/dL 09/12/2017 10:14 AM [facility] Calcium 9.4 8.4 - 10.2 mg/dL 09/12/2017 10:14 AM [facility] Protein Total 6.6 6.0 - 8.3 g/dL 09/12/2017 10:14 AM [facility] Albumin 3.1(L) 3.4 - 5.0 g/dL 09/12/2017 10:14 AM [facility] Bilirubin Total 0.4 0.2 - 1.2 mg/dL 09/12/2017 10:14 AM [facility] Alkaline Phosphatase 122 40 - 150 Units/L 09/12/2017 10:14 AM [facility] ALT 12 0 - 55 Units/L 09/12/2017 10:14 AM [facility] AST 10 5 - 34 Units/L 09/12/2017 10:14 AM [facility] Anion Gap 16 8 - 18 09/12/2017 10:14 AM [facility] BUN/Creatinine Ratio 18 7 - 23 09/12/2017 10:14 AM [facility] Osmolality Calculated 301(H) 270 - 300 mOsm/kg 09/12/2017 10:14 AM [facility] Albumin/Globulin Ratio 0.9(L) 1.1 - 2.3 09/12/2017 10:14 AM [facility] eGFR >60 >60 mL/min/1.7 3 m2 09/12/2017 10:14 AM CDT [facility] Blood BLOOD SPECIMEN / Unknown Venipuncture / Unknown 09/12/2017 9:43 AM CDT 09/12/2017 9:50 AM CDT Alesha Aragon MD LAB - CHEMISTRY MYLA Blanco Organization Address City/State/ZIP Co de Phone Number [facility] [address] [place] [address] * CT CEREBRAL PERFUSION ANALYSIS (09/12/2017 9:36 [...] Alesha Aragon MD CT ORDERABLES * CT ANGIO BRAIN AND NECK (09/12/2017 [...] 3. No cerebral perfusion abnormality identified. IDr. Miranda Mhapsekar have personally reviewed and interpreted this [...] ORDERABLES * CREATININE BLOOD - POCT (IP) [facility] (09/12/2017 9:21 AM CDT) [facility] Creatinine POCT 0.89 0.3 - 1.3 mg/dL [facility] POCT TESTING eGFR POCT 60 60 ml/min [facility] POCT TESTING Blood BLOOD SPECIMEN / Unknown 09/12/2017 9:21 AM CDT René Lawrence MD LAB - POINT OF CARE ORDERABLES [facility] POCT TESTING [address] [phone] * (ABNORMAL) GLUCOSE - POINT OF CARE (09/12/2017 9:13 AM CDT) [facility] Glucose WB/POC 426(HH) 70 - 115 mg/dL 09/12/2017 9:30 AM CDT [facility] Specimen Type Arterial/C apillary 09/12/2017 9:30 AM CDT [facility] Blood BLOOD SPECIMEN / Unknown 09/12/2017 9:13 AM CDT 09/12/2017 9:30 AM CDT Narrative [facility] - 09/12/2017 9:30 AM CDT Social Media Marketer: LIAN ??CASTILLO Provider Unknown LAB - POINT OF CARE ORDERABLES [address] [phone] documented in this encounter Visit Diagnoses Diagnosis Weakness Other malaise and fatigue Cerebrovascular accident (CVA) due to occlusion of cerebral artery (HCC) 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 $ Given 09/14/2017 3:56 PM CDT 10 mL $ Given 09/14/2017 3:55 PM CDT 10 mL 0.9% NaCl IV Bolus 1,000 mL, at 3,000 mL/hr, Administer over 20 Minutes, NOW, 1 dose, On 09/12/17 at 1000 $ New Bag/Syringe 09/12/2017 10:07 AM CDT 1,000 mL 3000 mL/hr 0.9% NaCl IV Bolus 1,000 mL, at 3,000 mL/hr, Administer over 20 Minutes, NOW, 1 dose, On 09/12/17 at 1100 $ New Bag/Syringe 09/12/2017 11:20 AM CDT 1,000 mL 3000 mL/hr aspirin (ASPIRIN) chew tablet 81 mg 81 mg, Oral, DAILY, 365 doses, First dose on Thu09/14/17 at 0900, Last dose on Thu09/13/18 at 0900 $ Given 09/15/2017 8:15 AM CDT 81 mg $ Given 09/14/2017 8:26 AM CDT 81 mg aspirin (ASPIRIN) tablet 325 mg 325 mg, Oral, DAILY, 365 doses, First dose on Thu09/12/17 at 1030, Last dose on Thu09/11/18 at 0900, May give aspirin PO or OK $ Given 09/13/2017 8:44 AM CDT 325 mg $ Given 09/12/2017 10:07 AM CDT 325 mg atorvastatin (LIPITOR) tablet 40 mg 40 mg, Oral, AT BEDTIME, 365 doses, First dose on Thu09/13/17 at 2100, Last dose on Thu09/12/18 at 2100 $ Given 09/14/2017 9:10 PM CDT 40 mg $ Given 09/13/2017 8:20 PM CDT 40 mg clotrimazole (LOTRIMIN AF) 1 % cream Topical, 2 TIMES DAILY, 730 doses, First dose on Thu09/14/17 at 1130, Last dose on Thu09/13/18 at 2100, Apply to affected areas $ Given 09/15/2017 8:15 AM CDT $ Given 09/14/2017 9:12 PM CDT $ Given 09/14/2017 4:08 PM CDT dextrose IV 12.5-25 g 12.5-25 g (25-50 mL), Intravenous, PRN, Bedside Glucose less than 70 mg/dL -If NOT able to eat and/or NPO and with IV Access, Starting on Thu09/12/17 at 1124, Until Thu09/15/17 at 1927, If NOT able to eat and/or NPO and with IV Access: For Bedside Glucose 50-69 mg/dL give 25 mls D50W IVP STAT For Bedside glucose 50 mg/dL or LESS verify with a second Bedside Glucose (from a different site) and give 50 mls D50W IVP STAT Re-check and Re-treat blood glucose EVERY 10-25 minutes until blood glucose GREATER than or equal to 80 mg/dl. NOTIFY PROVIDER OF HYPOGLYCEMIC EVENT. glucagon (GLUCAGEN) injection 1 mg 1 mg, Intramuscular, PRN, Bedside Glucose less than 70 mg/dL - If NOT able to eat and/or NPO and withOUT IV Access, Starting on Thu09/12/17 at 1124, Until Thu09/15/17 at 1927, If NOT able to eat and/or NPO and NO IV Access: For Bedside glucose 50-69 mg/dL Give 1 mg IM or SQ For Bedside Glucose LESS than 50 mg/dl verify with a second bedside glucose (from a different site) and Give 1 mg IM or SQ Re-check and Re-treat blood glucose EVERY 10-25 minutes until blood glucose GREATER than or equal to 80 mg/dl. NOTIFY PROVIDER OF HYPOGLYCEMIC EVENT. Reconstitute vial with 1 mL of sterile water for injection for a final concentration of 1 mg/mL; shake vial gently; use immediately and discard unused portion glucose (Diabetic Use) oral gel Oral, PRN, Other, Bedside Glucose less than 70 mg/dL -If able to eat and does not have swallowing difficulties, Starting on 09/12/17 at 1124, Until 09/15/17 at 1927, If able to eat and does not have swallowing difficulties: For Bedside Glucose 50 - 69 mg/dL Give 15 grams of oral carbohydrates - 1 glucose gel (see MAR) If patient refuses glucose gel, then offer: - 4 ounces of fruit juice OR - 4 ounces non-diet soda OR - 8 ounces of fat-free milk For Bedside Glucose LESS than 50 mg/dL verify with a second Bedside Glucose (from a different site) - If pt is symptomatic, do not delay treatment If the patient is exhibiting symptoms which are not consistent with the results obtained, confirm the glucose with a STAT laboratory test. Give 30 grams of oral carbohydrates - 2 glucose gels (see MAR) If patient refuses glucose gel, then offer: - 8 ounces of fruit juice OR - 8 ounces non-diet soda OR - 16 ounces of fat-free milk Re-check and Re-treat blood glucose EVERY 10-25 minutes until blood glucose GREATER than or equal to 80 mg/dl. NOTIFY PROVIDER OF HYPOGLYCEMIC EVENT. heparin injection 5,000 Units 5,000 Units, Subcutaneous, EVERY 8 HOURS, 1095 doses, First dose on 09/12/17 at 1400, Last dose on Thu09/12/18 at 0600 $ Given 09/15/2017 1:52 PM CDT 5,000 Units Abdominal Tissue $ Given 09/15/2017 5:44 AM CDT 5,000 Units A bdominal Tissue $ Given 09/14/2017 9:10 PM CDT 5,000 Units A bdominal Tissue hydrALAZINE (APRESOLINE) injection 10 mg 10 mg, Intravenous, EVERY 15 MIN PRN, Hypertension, Starting on Thu09/12/17 at 0947, Until Thu09/15/17 at 1927, For SBP greater than 220 mmHg or DBP greater than 110 mmHg Administer if HR less than 70. Contact physician if no response after 4 doses. insulin aspart (NovoLOG) vial 0-12 Units 0-12 Units, Subcutaneous, EVERY 4 HOURS, 2190 doses, First dose on Thu09/12/17 at 1200, Last dose on Thu09/12/18 at 0800, . 150-200 = 2 unit 201-250 = 4 units 251-300 = 6 units 301-350 = 8 units 351-400 = 10 units GREATER than 400 = 12 units and call $ Given 09/15/2017 6:23 PM CDT 4 Units Abdominal Tissue $ Given 09/15/2017 12:38 PM CDT 4 Units A bdominal Tissue $ Given 09/15/2017 8:16 AM CDT 4 Units Ab dominal Tissue insulin glargine (LANTUS) pen 20 Units 20 Units, Subcutaneous, ONCE, 1 dose, On Thu09/13/17 at 0945, Obtain current Blood Glucose if necessary . WASTE DISPOSAL INSTRUCTIONS: Black Bin Disposal required. $ Given 09/13/2017 9:59 AM CDT 20 Units Left Arm insulin glargine (LANTUS) pen 30 Units 30 Units, Subcutaneous, ONCE, 1 dose, On Thu09/14/17 at 0715, Obtain current Blood Glucose if necessary . WASTE DISPOSAL INSTRUCTIONS: Black Bin Disposal required. $ Given 09/14/2017 8:26 AM CDT 30 Units Left Arm insulin glargine (LANTUS) pen 40 Units 40 Units, Subcutaneous, ONCE, 1 dose, On Thu09/15/17 at 0715, Obtain current Blood Glucose if necessary . WASTE DISPOSAL INSTRUCTIONS: Black Bin Disposal required. $ Given 09/15/2017 8:16 AM CDT 40 Units Abdominal Tissue insulin regular human (humuLIN R; novoLIN R) 100 UNIT/ML injection 10 Units 10 Units, Intravenous, NOW, 1 dose, On Thu09/12/17 at 1045, Obtain current Blood Glucose if necessary. . WASTE DISPOSAL INSTRUCTIONS: Black Bin Disposal required. $ Given 09/12/2017 10:41 AM CDT 10 Units iopamidol (ISOVUE 370) 76 % contrast Intravenous, CONTRAST ONCE, Starting on 09/12/17 at 0919, Until 09/14/17 at 0918 $ Given - Contrast 09/12/2017 9:21 AM CDT 125 mL labetalol (NORMODYNE; TRANDATE) injection 10 mg 10 mg, Intravenous, EVERY 15 MIN PRN, Hypertension, Starting on 09/12/17 at 0947, Until 09/15/17 at 1927, For SBP greater than 220 mmHg or DBP greater than 110 mmHg Hold Labetalol if HR less than 70 and administer hydralazine. May administer 20 mg dose if 10 mg dose is ineffective. Contact physician if no response after 4 doses. labetalol (NORMODYNE; TRANDATE) injection 20 mg 20 mg, Intravenous, EVERY 15 MIN PRN, Hypertension, Starting on 09/12/17 at 0947, Until 09/15/17 at 1927, For SBP greater than 220 mmHg or DBP greater than 110 mmHg Hold Labetalol if HR less than 70 and administer hydralazine. May administer 20 mg dose if 10 mg dose is ineffective. Contact physician if no response after 4 doses. perflutren Lipid Microsphere (DEFINITY) injection SUSP 0.5 mL 0.5 mL, Intravenous, INTRA-PROCEDURE MULTIPLE, 6 doses, Starting on 09/14/17 at 1549, Until Thu09/15/17 at 1927, For Echo Procedure - Per Protocol Give slowly Shake well before using. $ Given 09/14/2017 3:58 PM CDT 0.5 mL potassium chloride (KLOR-CON M) tablet 40 mEq 40 mEq, Oral, ONCE, 1 dose, On Thu09/15/17 at 0715, Do not crush or chew. $ Given 09/15/2017 8:15 AM CDT 40 mEq potassium chloride 40 mEq in 0.9% NaCl 270 mL bolus 40 mEq, at 67.5 mL/hr, Administer over 4 Hours, Intravenous, ONCE, 1 dose, On Thu09/13/17 at 0545 $ New Bag/Syringe 09/13/2017 6:31 AM CDT 40 mEq 67.5 mL/hr documented in this encounter Active and Recently Administered Medications Times are shown in CDT. Scheduled Medication Order 09/13/2017 09/14/2017 09/15/2017 0.9% NaCl injection 10 mL () 10 mL, Intracatheter, INTRA-PROCEDURE MULTIPLE, Starting on Thu09/14/17 at 1549, Until Thu09/14/17 at 1948, For Echo Procedure - Per Protocol Agitate saline before administration. 1555 ($ Given - Provider: Alice Cyr, RN)1556 ($ Given - Provider: Alice Cyr RN) aspirin (ASPIRIN) chew tablet 81 mg 81 mg, Oral, DAILY, 365 doses, First dose on Thu09/14/17 at 0900, Last dose on Thu09/13/18 at 0900 0826 ($ Given - Provider: Rafaela Mo, LUTHER) 0815 ($ Given - Provider: Noelle Doe, LUTHER) aspirin (ASPIRIN) tablet 325 mg (CANCELED)(Linked Group 1) 325 mg, Oral, DAILY, 365 doses, First dose on 09/12/17 at 1030, Last dose on Thu09/11/18 at 0900, May give aspirin PO or OK 0844 ($ Given - Provider: Rafaela Mo RN) atorvastatin (LIPITOR) tablet 40 mg 40 mg, Oral, AT BEDTIME, 365 doses, First dose on 09/13/17 at 2100, Last dose on 09/12/18 at 2100 2020 ($ Given - Provider: Gilma Bishop RN) 211 ($ Given - Provider: Ijeoma Asher, LUTHER) clotrimazole (LOTRIMIN AF) 1 % cream Topical, 2 TIMES DAILY, 730 doses, First dose on Thu09/14/17 at 1130, Last dose on Thu09/13/18 at 2100, Apply to affected areas 1608 ($ Given - Provider: Rafaela Mo RN - Comment: administered while talking with patient earlier in shift)2111 ($ Given - Provider: Ijeoma Asher, LUTHER - Comment: left hand) 0815 ($ Given - Provider: Noelle Doe, LUTHER) heparin injection 5,000 Units 5,000 Units, Subcutaneous, EVERY 8 HOURS, 1095 doses, First dose on 09/12/17 at 1400, Last dose on 09/12/18 at 0600 0631 ($ Given - Provider: Gilma L Bishop, RN)1243 ($ Given - Provider: Rafaela Mo RN)2020 ($ Given - Provider: Gilma Bishop RN) 0540 ($ Given - Provider: Gilma Bishop RN)1230 ($ Given - Provider: Rafaela Mo RN)2110 ($ Given - Provider: Ijeoma Asher RN) 0544 ($ Given - Provider: Ijeoma Asher, LUTHER)1352 ($ Given - Provider: Noelle Doe RN) insulin aspart (NovoLOG) vial 0-12 Units 0-12 Units, Subcutaneous, EVERY 4 HOURS, 2190 doses, First dose on 09/12/17 at 1200, Last dose on 09/12/18 at 0800, . 150-200 = 2 unit 201-250 = 4 units 251-300 = 6 units 301-350 = 8 units 351-400 = 10 units GREATER than 400 = 12 units and call 0014 ($ Given - Provider: Gilma Bishop RN)0411 ($ Given - Provider: Gilma Bishop RN)0844 ($ Given - Provider: Rafaela Mo RN)1245 ($ Given - Provider: Rafaela Mo RN)1730 ($ Given - Provider: Rafaela Mo RN)2020 ($ Given - Provider: Gilma Bishop RN) 0008 ($ Given - Provider: Gilma Bishop RN)0353 ($ Given - Provider: Gilma Bishop RN)0826 ($ Given - Provider: Rafaela Mo RN)1230 ($ Given - Provider: Rafaela Mo RN)1751 ($ Given - Provider: Rafaela Mo RN)2110 ($ Given - Provider: Ijeoma Asher RN) 0003 ($ Given - Provider: Ijeoma Asher RN)0401 ($ Given - Provider: Ijeoma Asher RN)0816 ($ Given - Provider: Noelle Doe RN)1238 ($ Given - Provider: Noelle Doe RN)1823 ($ Given - Provider: Noelle Doe RN - Comment: given with dinner trays) insulin glargine (LANTUS) pen 20 Units (COMPLETED) 20 Units, Subcutaneous, ONCE, 1 dose, On Thu09/13/17 at 0945, Obtain current Blood Glucose if necessary . WASTE DISPOSAL INSTRUCTIONS: Black Bin Disposal required. 0959 ($ Given - Provider: Rafaela Mo, LUTHER) insulin glargine (LANTUS) pen 30 Units (COMPLETED) 30 Units, Subcutaneous, ONCE, 1 dose, On Thu09/14/17 at 0715, Obtain current Blood Glucose if necessary . WASTE DISPOSAL INSTRUCTIONS: Black Bin Disposal required. 0826 ($ Given - Provider: Rafaela Mo, RN) insulin glargine (LANTUS) pen 40 Units (COMPLETED) 40 Units, Subcutaneous, ONCE, 1 dose, On Thu09/15/17 at 0715, Obtain current Blood Glucose if necessary . WASTE DISPOSAL INSTRUCTIONS: Black Bin Disposal required. 0816 ($ Given - Provider: Noelle Doe, LUTHER) perflutren Lipid Microsphere (DEFINITY) injection SUSP 0.5 mL 0.5 mL, Intravenous, INTRA-PROCEDURE MULTIPLE, 6 doses, Starting on Thu09/14/17 at 1549, Until Thu09/15/17 at 1927, For Echo Procedure - Per Protocol Give slowly Shake well before using. 1558 ($ Given - Provider: Alice Cyr, LUTHER) potassium chloride (KLOR-CON M) tablet 40 mEq (COMPLETED) 40 mEq, Oral, ONCE, 1 dose, On Thu09/15/17 at 0715, Do not crush or chew. 0815 ($ Given - Provider: Noelle Doe, LUTHER) potassium chloride 40 mEq in 0.9% NaCl 270 mL bolus (COMPLETED) 40 mEq, at 67.5 mL/hr, Administer over 4 Hours, Intravenous, ONCE, 1 dose, On Thu09/13/17 at 0545 0631 ($ New Bag/Syringe - Provider: Gilma Bishop RN)1035 (Stopped - Provider: Rafaela Mo, LUTHER) PRN Medication Order 09/13/2017 09/14/2017 09/15/2017 dextrose IV 12.5-25 g 12.5-25 g (25-50 mL), Intravenous, PRN, Bedside Glucose less than 70 mg/dL -If NOT able to eat and/or NPO and with IV Access, Starting on 09/12/17 at 1124, Until Thu09/15/17 at 1927, If NOT able to eat and/or NPO and with IV Access: For Bedside Glucose 50-69 mg/dL give 25 mls D50W IVP STAT For Bedside glucose 50 mg/dL or LESS verify with a second Bedside Glucose (from a different site) and give 50 mls D50W IVP STAT Re-check and Re-treat blood glucose EVERY 10-25 minutes until blood glucose GREATER than or equal to 80 mg/dl. NOTIFY PROVIDER OF HYPOGLYCEMIC EVENT. glucagon (GLUCAGEN) injection 1 mg 1 mg, Intramuscular, PRN, Bedside Glucose less than 70 mg/dL - If NOT able to eat and/or NPO and withOUT IV Access, Starting on 09/12/17 at 1124, Until Thu09/15/17 at 1927, If NOT able to eat and/or NPO and NO IV Access: For Bedside glucose 50-69 mg/dL Give 1 mg IM or SQ For Bedside Glucose LESS than 50 mg/dl verify with a second bedside glucose (from a different site) and Give 1 mg IM or SQ Re-check and Re-treat blood glucose EVERY 10-25 minutes until blood glucose GREATER than or equal to 80 mg/dl. NOTIFY PROVIDER OF HYPOGLYCEMIC EVENT. Reconstitute vial with 1 mL of sterile water for injection for a final concentration of 1 mg/mL; shake vial gently; use immediately and discard unused portion glucose (Diabetic Use) oral gel Oral, PRN, Other, Bedside Glucose less than 70 mg/dL -If able to eat and does not have swallowing difficulties, Starting on 09/12/17 at 1124, Until Thu09/15/17 at 1927, If able to eat and does not have swallowing difficulties: For Bedside Glucose 50 - 69 mg/dL Give 15 grams of oral carbohydrates - 1 glucose gel (see MAR) If patient refuses glucose gel, then offer: - 4 ounces of fruit juice OR - 4 ounces non-diet soda OR - 8 ounces of fat-free milk For Bedside Glucose LESS than 50 mg/dL verify with a second Bedside Glucose (from a different site) - If pt is symptomatic, do not delay treatment If the patient is exhibiting symptoms which are not consistent with the results obtained, confirm the glucose with a STAT laboratory test. Give 30 grams of oral carbohydrates - 2 glucose gels (see MAR) If patient refuses glucose gel, then offer: - 8 ounces of fruit juice OR - 8 ounces non-diet soda OR - 16 ounces of fat-free milk Re-check and Re-treat blood glucose EVERY 10-25 minutes until blood glucose GREATER than or equal to 80 mg/dl. NOTIFY PROVIDER OF HYPOGLYCEMIC EVENT. hydrALAZINE (APRESOLINE) injection 10 mg(Linked Group 2) 10 mg, Intravenous, EVERY 15 MIN PRN, Hypertension, Starting on 09/12/17 at 0947, Until 09/15/17 at 1927, For SBP greater than 220 mmHg or DBP greater than 110 mmHg Administer if HR less than 70. Contact physician if no response after 4 doses. labetalol (NORMODYNE; TRANDATE) injection 10 mg(Linked Group 2) 10 mg, Intravenous, EVERY 15 MIN PRN, Hypertension, Starting on 09/12/17 at 0947, Until 09/15/17 at 1927, For SBP greater than 220 mmHg or DBP greater than 110 mmHg Hold Labetalol if HR less than 70 and administer hydralazine. May administer 20 mg dose if 10 mg dose is ineffective. Contact physician if no response after 4 doses. labetalol (NORMODYNE; TRANDATE) injection 20 mg(Linked Group 2) 20 mg, Intravenous, EVERY 15 MIN PRN, Hypertension, Starting on 09/12/17 at 0947, Until 09/15/17 at 1927, For SBP greater than 220 mmHg or DBP greater than 110 mmHg Hold Labetalol if HR less than 70 and administer hydralazine. May administer 20 mg dose if 10 mg dose is ineffective. Contact physician if no response after 4 doses. Linked Groups Order Group 1: aspirin (ASPIRIN) tablet 325 mg (CANCELED)Jump to med 325 mg, Oral, DAILY, 365 doses, First dose on 09/12/17 at 1030, Last dose on 09/11/18 at 0900, May give aspirin PO or OK Or aspirin (ASPIRIN) suppository 300 mg (CANCELED) 300 mg, Rectal, DAILY, 365 doses, First dose on 09/12/17 at 1030, Last dose on 09/11/18 at 0900, May give rectally if unable to take orally. Group 2: labetalol (NORMODYNE; TRANDATE) injection 10 mgJump to med 10 mg, Intravenous, EVERY 15 MIN PRN, Hypertension, Starting on 09/12/17 at 0947, Until 09/15/17 at 1927, For SBP greater than 220 mmHg or DBP greater than 110 mmHg Hold Labetalol if HR less than 70 and administer hydralazine. May administer 20 mg dose if 10 mg dose is ineffective. Contact physician if no response after 4 doses. Or labetalol (NORMODYNE; TRANDATE) injection 20 mgJump to med 20 mg, Intravenous, EVERY 15 MIN PRN, Hypertension, Starting on 09/12/17 at 0947, Until 09/15/17 at 1927, For SBP greater than 220 mmHg or DBP greater than 110 mmHg Hold Labetalol if HR less than 70 and administer hydralazine. May administer 20 mg dose if 10 mg dose is ineffective. Contact physician if no response after 4 doses. Or hydrALAZINE (APRESOLINE) injection 10 mgJump to med 10 mg, Intravenous, EVERY 15 MIN PRN, Hypertension, Starting on 09/12/17 at 0947, Until 09/15/17 at 1927, For SBP greater than 220 mmHg or DBP greater than 110 mmHg Administer if HR less than 70. Contact physician if no response after 4 doses. documented in this encounter
--- OUTSIDE RECORDS SUMMARY | 2024-04-09 05:14 | XMS_ITS | Encounter Summary ---
Author Organization [facility] Health Address [address] [place] [address] Care Team Providers Care Parquetry Layer Name Role Phone Unavailable Primary Care Provider Unavailabl e Encounter Details Date Type Department Care Team (Latest Contact Info) Description 09/15/2017 7:31 PM CDT - 10/10/2017 10:30 AM CDT Hospital [facility] [id number] [place] [id number] Yue Jones MD Rehabilitation Discharge Disposition: Home or Self Care Social History Tobacco Use Types Packs/Day Years Used Date Smoking Tobacco: Every Day Cigarettes 0.5 45 Started: 1980 Smokeless Tobacco: Never Alcohol Use Standard Drinks/Week Comments No 0 [...] No 09/15/2017 documented as of this encounter Medications at Time of Discharge [...] 09/15/2017 10/28/2022 documented as of this encounter Plan of Treatment Not on file documented as of this encounter Visit Diagnoses Not on filedocumented in this encounter
--- OUTSIDE RECORDS SUMMARY | 2024-04-09 05:14 | XMS_ITS | Encounter Summary ---
Author Organization [facility] Address [address] [place] [address] Care Team Providers Care Precision Grinder Name Role Phone Unavailable Primary Care Provider Unavailabl e Encounter Details Date Type Department Care Team (Latest Contact Info) Description 09/15/2017 7:26 PM CDT - 10/10/2017 10:30 AM CDT Hospital Encounter [address] [address] Yue Jones MD [facility] Direct Discharge Disposition: Home or Self Care Social [...] Procedure Name Priority Date/Time Associated Diagnosis Comments CBC W/O DIFFERENTIAL Routine 09/21/2017 4:20 AM CDT BASIC METABOLIC PANEL (CALCIUM TOTAL) Routine 09/21/2017 4:20 AM CDT CBC W/O DIFFERENTIAL Routine 09/18/2017 4:00 AM CDT BASIC METABOLIC PANEL (CALCIUM TOTAL) Routine 09/18/2017 4:00 AM CDT documented in this encounter Results * (ABNORMAL) BASIC METABOLIC PANEL (CALCIUM TOTAL) (09/21/2017 4:20 AM CDT) Glucose 113(H) 74 - 106 mg/dL 09/21/2017 7:55 AM CDT [facility] Sodium 138 136 - 145 mmol/L 09/21/2017 7:55 AM CDT [facility] Potassium 3.8 3.5 - 5.1 mmol/L 09/21/2017 7:55 AM CDT [facility] Chloride 101 98 - 107 mmol/L 09/21/2017 7:55 AM CDT [facility] CO2 28 22 - 31 mmol/L 09/21/2017 7:55 AM CDT [facility] Calcium 9.1 8.5 - 10.1 mg/dL 09/21/2017 7:55 AM CDT [facility] Anion Gap 9 8 - 16 mmol/L 09/21/2017 7:55 AM CDT [facility] BUN 15 7 - 21 mg/dL 09/21/2017 7:55 AM CDT [facility] Creatinine 0.70 0.50 - 1.30 mg/dL 09/21/2017 7:55 AM CDT [facility] eGFR by MDRD >60 >60 mL/min/1.7 3m2 09/21/2017 7:55 AM CDT [facility] eGFR by MDRD >60 >60 mL/min/1.7 3m2 09/21/2017 7:55 AM CDT [facility] Blood BLOOD SPECIMEN / Unknown 09/21/2017 4:20 AM CDT 09/21/2017 7:27 AM CDT Zehra Hirsch MD LAB - CHEMISTRY MYLA [facility] Organization Address City/State/ZIP Co de Phone Number [facility] [address] [place] [address] * (ABNORMAL) CBC W/O DIFFERENTIAL (09/21/2017 4:20 AM CDT) WBC 10.6 4.4 - 10.7 x10E9/L 09/21/2017 7:38 AM CDT [facility] RBC 4.77 3.80 - 5.20 x10E12/L 09/21/2017 7:38 AM CDT [facility] Hemoglobin 15.1 12.0 - 15.6 gm/dL 09/21/2017 7:38 AM CDT [facility] Hematocrit 44.3 35.9 - 45.5 % 09/21/2017 7:38 AM CDT [facility] MCV 92.9 80.7 - 98.3 fl 09/21/2017 7:38 AM CDT [facility] MCH 31.7 26.7 - 34.0 pg 09/21/2017 7:38 AM CDT [facility] MCHC 34.1 30.8 - 35.9 gm/dL 09/21/2017 7:38 AM CDT [facility] Platelet Count 240 153 - 416 x10E9/L 09/21/2017 7:38 AM CDT [facility] RDW-CV 11.9(L) 12.1 - 14.9 % 09/21/2017 7:38 AM CDT [facility] MPV 11.1 9.4 - 12.9 fl 09/21/2017 7:38 AM CDT [facility] Blood BLOOD SPECIMEN / Unknown 09/21/2017 4:20 AM CDT 09/21/2017 7:27 AM CDT Zehra Hirsch MD LAB - HEMATOLOGY ORD ERABLES Performing Organization Address City/[facility]/ZIP Co de Phone Number [facility] [address] [place] [address] * (ABNORMAL) BASIC METABOLIC PANEL (CALCIUM TOTAL) (09/18/2017 4:00 AM CDT) Glucose 219(H) 74 - 106 mg/dL 09/18/2017 7:29 AM CDT [facility] Sodium 136 136 - 145 mmol/L 09/18/2017 7:29 AM CDT [facility] Potassium 4.3 3.5 - 5.1 mmol/L 09/18/2017 7:29 AM CDT [facility] Chloride 105 98 - 107 mmol/L 09/18/2017 7:29 AM CDT [facility] CO2 21(L) 22 - 31 mmol/L 09/18/2017 7:29 AM T [facility] Calcium 8.7 8.5 - 10.1 mg/dL 09/18/2017 7:29 AM T [facility] Anion Gap 10 8 - 16 mmol/L 09/18/2017 7:29 AM CDT [facility] BUN 19 7 - 21 mg/dL 09/18/2017 7:29 AM T [facility] Creatinine 0.62 0.50 - 1.30 mg/dL 09/18/2017 7:29 AM CDT [facility] eGFR by MDRD >60 >60 mL/min/1.7 3m2 09/18/2017 7:29 AM T [facility] eGFR by MDRD >60 >60 mL/min/1.7 3m2 09/18/2017 7:29 AM T [facility] Blood BLOOD SPECIMEN / Unknown Venipuncture / Unknown 09/18/2017 4:00 AM CDT 09/18/2017 7:02 AM CDT Zehra Hirsch MD LAB - CHEMISTRY ORDCarolyn GOOD Performing Organization Address City/[facility]/ZIP Co de Phone Number [facility] [address] [place], [place] [phone] * (ABNORMAL) CBC W/O DIFFERENTIAL (09/18/2017 4:00 AM CDT) WBC 11.1(H) 4.4 - 10.7 x10E9/L 09/18/2017 7:16 AM CDT [facility] RBC 4.76 3.80 - 5.20 x10E12/L 09/18/2017 7:16 AM CDT [facility] Hemoglobin 14.9 12.0 - 15.6 gm/dL 09/18/2017 7:16 AM CDT [facility] Hematocrit 45.1 35.9 - 45.5 % 09/18/2017 7:16 AM CDT [facility] MCV 94.7 80.7 - 98.3 fl 09/18/2017 7:16 AM CDT [facility] MCH 31.3 26.7 - 34.0 pg 09/18/2017 7:16 AM CDT [facility] MCHC 33.0 30.8 - 35.9 gm/dL 09/18/2017 7:16 AM CDT [facility] Platelet Count 218 153 - 416 x10E9/L 09/18/2017 7:16 AM CDT [facility] RDW-CV 11.5(L) 12.1 - 14.9 % 09/18/2017 7:16 AM CDT [facility] MPV 11.0 9.4 - 12.9 fl 09/18/2017 7:16 AM CDT [facility] Blood BLOOD SPECIMEN / Unknown Venipuncture / Unknown 09/18/2017 4:00 AM CDT 09/18/2017 7:03 AM CDT Zehra Hirsch MD LAB - HEMATOLOGY ORD ERABLES [facility] [address] [place] [address] documented in this encounter Visit Diagnoses Not on filedocumented in this encounter
--- OUTSIDE RECORDS SUMMARY | 2024-04-09 05:14 | XMS_ITS | Encounter Summary ---
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 Name Role Phone Unavailable Primary Care Provider Unavailabl e Reason for Referral * Home Health Care (Routine) - Closed Specialty Diagnoses / Procedures Referred By Devante rudolph Referred To Contact Home Health Services Diagnoses Left arm weakness Jairo Nunez MD [address] [place] [address] [facility] [address] [address] Referral ID Status Reason Start Date Expiration Date V isits Requested Visits Authorized [id number] Closed Specialty Services Required 10/24/2022 10/24/2023 999 999 * Evaluate & Treat (Routine) - Closed Specialty Diagnoses / Procedures Referred By Devante rudolph Referred To Contact Neurology Diagnoses Cerebrovascular accident (CVA) due to occlusion of cerebral artery (HCC) Jairo Nunez MD [address] [place] [address] Jairo Nunez MD [address] [place] [address] Referral ID Status Reason Start Date Expiration Date V isits Requested Visits Authorized [id number] Closed Discharge Follow-up 10/24/2022 10/24/2023 1 1 * Home Health Care (Routine) - Closed Specialty Diagnoses / Procedures Referred By Devante rudolph Referred To Contact Home Health Services Diagnoses Left arm weakness Jairo Nunez MD [address] [place] [address] [address] [place] [address] [facility] [address] [address] Referral ID Status Reason Start Date Expiration Date V isits Requested Visits Authorized [id number] Closed Specialty Services Required 10/24/2022 10/24/2023 999 999 Reason for Visit * Reason Comments Weakness Pt arrives with comp laint of weakness to left side. Per report, last known well from family was 1300 today. * Auth/Cert (Routine) Specialty Diagnoses / Procedures Referred By Devante rudolph Referred To Contact Referral ID Status Reason Start Date Expiration Date Visits Re quested Visits Authorized [id number] 1 1 Encounter Details Date Type Department Care Team (Latest Contact Info) Description 10/22/2022 8:30 PM CDT - 10/24/2022 7:45 PM CDT Hospital Encounter [facility] 5N ACUTE [address] [place] [id number] Steffany Bailey MD [address] [place], [place] [id number] Shiva Nayak MD [address] [place] [address] Jairo Nunez MD [address] [place] [address] [address] [place] [address] Neurology Discharge Disposition: Home Health Care Svc Social History Tobacco Use Types Packs/Day Years Used Date Smoking Tobacco: Every Day Cigarettes 0.5 45 Started: 1979 Smokeless Tobacco: Never Tobacco Cessation:Ready to Q uit: Not Asked; Counseling Given: Not Answered Alcohol Use Standard Drinks/Week Comments No 0 (1 standard drink = 0.6 oz pur e alcohol) Sex and Gender Information Value Date Recorded Sex Assigned at Not on file Gender Identity Not on file Sexual Orientation Not on file documented as of this encounter Last Filed Vital Signs Vital Sign Reading Time Taken Comments Blood Pressure 138/62 10/24/2022 4:07 PM CDT Pulse 76 10/24/2022 4:07 PM CDT Temperature 36.7 ??C (98 ??F) 10/24/2022 4:07 PM CDT Respiratory Rate 20 10/24/2022 4:07 PM CDT Oxygen Saturation 96% 10/24/2022 4:07 PM CDT Inhaled Oxygen Concentration - - Weight 134.3 kg (296 lb) 10/24/2022 4:34 AM CDT Height 172.7 cm (5' 8 ) 10/24/2022 4:34 AM CDT Body Mass Index 45.01 10/24/2022 4:34 AM CDT documented in this encounter Functional [...] Yes 10/24/2022 documented as of this encounter Discharge Summaries * Fabian Goldstein MD - 10/24/2022 12:27 PM CDT Stroke Team Physician Discharge Summary Patient ID: Maria Beck [id number] 62 year old 1960 Admit date: 10/22/2022 Discharge date and time: No discharge date for patient encounter. Admitting Physician: Jairo Nunez MD Discharge Physician: Jairo Nunez MD Present on Admission: None Discharge Diagnoses: stroke Admission Condition: stable Discharged Condition: stable Indication for Admission: right basal ganglia lacunar infarct Hospital Course: Maria Beck is a 62 year old female who has a PMH of DMT2 and an old stroke with no residual deficits who presented as a code stroke for new onset left sided arm weakness, left facial droop. On arrival her NIHSS was 6. CTH was obtained which showed a subacute appearing small hypodensity of thebasal ganglia, internal capsule and of the right medial occipital lobe. CTA was negative for LVO. MRI confirmed right basal ganglia lacunar infarct, and an old, prior occipital lobe infarct. Surface echo was obtained and was unremarkable. She was discharged, to follow up with [facility], and well as to obtain a KATH as an outpatient. Consults: Neurology Significant Diagnostic Studies: See hospital course Discharge Exam: Mental status: Awake, alert, Follows commands. Oriented x 3 Language: Fluency intact, comprehension intact, repetition intact. Visual moss: Intact bilaterally to confrontation. Neglect: No appreciable visual or tactile neglect noted. CN 3 - 12: left facial droop Motor: Tone/bulk/Abnormal movements: None. ?? Objective strength: ?? Proximal Upper Distal Upper Proximal Lower Distal Lower Right 5/5 5/5 5/5 5/5 Left 4-/5 4-/5 4+/5 4+/5 ?? Muscle Stretch Reflexes ?? BI BR PAT ACH TOES Right 2 2 2 2 Down Left 2 2 2 2 Down ?? Sensory LT: symmetric PP: symmetric Vibration: Deferred Proprioception: Deferred. ?? Cerebellar ?? FNF Right Intact Left dysmetria ?? Gait Deferred NIHSS at discharge: 5 Disposition: Home Medications at discharge for secondary stroke prophylaxis: Medication List CONTINUE taking these medications aspirin 81 MG chew tablet Commonly known as: Aspirin Take 1 (one) tablet by mouth once daily Start taking on: October 25, 2022 atorvastatin 40 MG tablet Commonly known as: Lipitor Take 1 (one) tablet by mouth at bedtime clotrimazole 1 % cream Commonly known as: Lotrimin AF Apply to affected area 2 times daily insulin aspart vial Commonly known as: NovoLOG Inject 0-12 Units subcutaneously every 4 hours STOP taking these medications heparin 5000 UNIT/ML injection Where to Get Your Medications These medications were sent to [facility] [id number] Portal to Registered [facility] [id number] ?? aspirin 81 MG chew tablet ?? atorvastatin 40 MG tablet Follow-up Information [facility] . Specialty: Neurology Contact information: [address] [facility] [address] [facility] [address] Transitional Care at [facility] . Specialty: Transitional Care Contact information: [address] [facility] [address] Discharge Instructions You were admitted to [facility] after presenting with a stroke. We recommend you take a daily aspirin 81mg and atorvastatin 40mg daily for your cholesterol (both have been prescribed). Your diabetes is severely uncontrolled. We have scheduled you into the hospital discharge clinic which will help you establish with a primary care provider for diabetes management. You have been scheduled with Monalisa Delgado PA-C for follow up in regards to your stroke and hospital stay. If the time and/or day of this appointment doesn't work for you, or you would like to do a virtual visit (by phone or video), please call [phone] to make changes. Signed: Fabian Goldstein MD 10/24/2022 documented in this encounter Discharge Instructions * Discharge Instructions* Bernadette Feng MD - 10/23/2022 10:41 AM CDT You were admitted to [facility] after presenting with a stroke. We recommend you take a daily aspirin 81mg and atorvastatin 40mg daily for your cholesterol (both have been prescribed). Your diabetes is severe uncontrolled. We have scheduled you into the hospital discharge clinic which will help you establish with a primary care provider for diabetes management. You have been scheduled with Monalisa Delgado PA-C for follow up in regards to your stroke and hospital stay. If the time and/or day of this appointment doesn't work for you, or you would like to do a virtual visit (by phone or video), please call [phone] to make changes. documented in this encounter Medications at Time of Discharge Medication Sig Dispensed Refills Start Date End Date aspirin (Aspirin) 81 MG chew tablet Take 1 (one) tablet by mouth once daily 30 tablet 3 10/25/2022 atorvastatin (Lipitor) 40 MG tablet Take 1 (one) tablet by mouth at bedtime 30 tablet 3 10/24/2022 clotrimazole (LOTRIMIN AF) 1 % cream Apply to affected area 2 times daily 09/15/2017 insulin aspart (NOVOLOG) vial Inject 0-12 Units subcutaneously every 4 hours 09/15/2017 10/28/2022 documented as of this encounter Progress Notes * Tanya Perera RN - 10/24/2022 7:45 PM CDT Case Management Progress Note Discharge Summary Maria Beck 1960 ?? Admit date: 10/22/2022 ?? Discharge date 10/24/2022 Patient Disposition: Home with [facility]. Discharge summary faxed. Pt arranged transportation home. No other CM needs identified. [facility] Tanya Perera RN [phone] Care Coordination Nurse Director Of Database Marketing * Tanya Perera RN - 10/24/2022 12:06 PM CDT Discharge Recommendations: Patient would benefit from ongoing therapy with home health. Referrals sent. Pending acceptance. Continued Care and Services - Admitted Since 10/22/2022 Home Medical Care Service Provider Request Status Selected Services Address Phone Fax Patient [facility]ALTH Pending - Request Sent N/A [address] [phone] -- [facility] Pending - Request Sent N/A [address] [address] [phone] -- [facility] Pending - Request Sent N/A [address] [facility] [address] [phone] -- [facility] Pending - Request Sent N/A [address] [facility] [address] [phone] -- [facility] Pending - Request Sent N/A [address] [place] [address] [phone] -- [facility] Declined Facility cannot provide for patient's needs N/A [address] [place], [address], [place] [address] -- Tanya Perera RN [phone] Care Coordination Nurse Director Of Database Marketing * Isabel Marc RN - 10/24/2022 10:25 AM CDT Discharge Process Trainer received a referral to schedule an appointment with the [facility]. The patient is scheduled to be seen on 10/28/22 at 1430 in the [facility]. [facility]. Isabel Marc RN 10/24/2022 * Debra Ruiz SLP - 10/24/2022 10:00 AM CDT [facility] Cognitive/Speech Evaluation Patient: Maria Beck Med Record Number: [id number] Date of : 1960 Age: [age] year old In addition to the 1:1 evaluation of the patient, additional eval time was spent completing the chart review prior to the assessment, completing the multidisciplinary plan of care and education plan post evaluation and communicating results of the eval to other treatment team members. Impressions: Pt demonstrated functional expressive communication but speech was marked by mild dysarthria with mild slowness of rate. Pt verbalized awareness of left facial weakness and admitted to some anterior leakage of liquids on left side. Pt was instructed in oral motor exercises. Pt was specifically oriented but demonstrated decreased delayed recall and decreased mathematical reasoning. Will continue speech therapy for improved cognitive/communicative function. Discharge Recommendations: Pt will likely benefit from further speech therapy upon discharge. Speech therapy is recommended to improve speech/cognitive/communicative function. Subjective: Mental Status: Alert and responsive Patient Goals: Pt was awaiting breakfast. Pain: Patient has no reported pain. Follow-up for pain: No follow-up for pain indicated and patient agreed to proceed with treatment Objective: Cognitive-Communication: Mild difficulties Visual neglect: none noted Attention: Pt attended to task with minimal distractions present; pt required occasional repetitions of stimuli Oriented to: Pt was oriented to self, day, month, year, and specific hospital. Immediate Recall: Pt recalled 5-7 digits in series; pt partially recalled 11- word sentence. Delayed/Recent Recall: Pt answered 4/6 questions from paragraph read aloud Reasoning: Decreased mathematical reasoning (pt required multiple cues and repetitions to answer questions); pt answered 2/6 questions Problem Solving: Pt required cues to elaborate solutions to everyday problem situations. Awareness/Insight: Decreased; with questioning, pt admitted to left facial weakness along with slower rate of speech. Organization: pt named items in categories and identified common features of items. Pragmatics: Pt established and maintained eye contact; pt participated in conversation with appropriate turn-taking; pt informed callers on phone that she needed to call them later because she was working with therapy. Assessment: Behavioral: Cooperative and pleasant Cognitive-Communication: Decreased Education: Patient instructed in recommedations and indicated understanding. Goals: Short Term Goals: Patient to demonstrate the ability to complete oral motor and/or pharyngeal exercises 3-5 times per week to improve swallow function. Patient to demonstrate use of techniques to improve speech intelligibility. Patient to demonstrate gains in problem solving/abstract reasoning. Fpc Goals: Patient to be independent/baseline with speech/language/cognitive/swallowing to beable to safely discharge to prior level of care. If patient is discharged from the facility, this note serves as a discharge note if further speech therapy visits did not occur. * Debra Ruiz SLP - 10/24/2022 8:19 AM CDT [facility] Department of Physical Medicine & Rehabilitation Speech Therapy Progress Note Patient: Maria Beck Med Record Number: [id number] Date of : 1960 Age: [age] year old 10/24/22 0817 Missed Visit Missed Visit Procedure In Room; Will attempt again at later time. * Pepe Rebolledo, PT - 10/23/2022 4:41 PM CDT [facility] Physical Medicine and Rehabilitation Physical Therapy Initial Evaluation Note Patient: Maria Beck [facility] Record Number: [id number] Date of : 1960 Age: [age] year old PPE worn by staff: gloves;mask - procedural PPE worn by patient: gown - patient, clean;socks - clean Co-eval with OT due to unknown level of skilled assist Recommendations: Discharge PT Discharge Recommendations: Patient would benefit from ongoing therapy with home health (PT) In addition to the 1:1 evaluation of the patient, additional eval time was spent completing the chart review prior to the assessment, completing the multidisciplinary plan of care and education plan post evaluation and communicating results of the eval to other treatment team members. Patient currently using Wheeled Walker and has equipment at home. No equipment needs if d/c home. Nurse and Occupational Therapy contacted regarding patient status and/or discharge plan. Physician Orders: Evaluation and Treat PRECAUTIONS: Weight Bearing Status: (no restrictions) Activity Level: Activity as Tolerated DIAGNOSIS: Patient Active Problem List: Cerebrovascular accident (CVA) due to occlusion of cerebral artery (CMS/HCC) Left arm weakness Cerebrovascular accident (CVA), unspecified mechanism (CMS/HCC) Facial droop due to acute stroke (CMS/HCC) Diabetes (CMS/HCC) Past Medical History: Diagnosis Date ??? Diabetes (CMS/HCC) SUBJECTIVE: PATIENT GOALS: Home Situation: Type of Residence: Private Residence Lives with:: Spouse;Son Steps to Enter: 1 Handrails: None Home Structure: One Story Primary Bedroom: First Floor Primary Bathroom: First Floor Bathroom : Tub/Shower Combo Equipment at Home: Hand Held Shower;Chair-Shower;Walker-4 Wheeled with Seat;Cane-Straight Prior Level of Functioning: Prior Level of Function Mobility: Ambulate-In Home ;With Assistive Device (and assist) Fallen Within 6 Mos: 4 (3-4 per daughter) Have Help at Home?: Yes, there is help at home now Who assists you at home?: Friends/Family How often is assistance provided?: Daily Oxygen at Home: No Vision: Corrected with glasses Hearing Exceptions: Hearing concerns Pain Assessment: Pain Location #1 Pain Scale/Observation: Numeric (0-10) Pain Rating Score #1: 0 OBJECTIVE: At start of therapy session, patient found in bed General Appearance: Pt supine in bed, NAD. Pt's daughter present. LDA: IV's: Peripheral line and Oxygen Nasal Cannula Edema: No edema noted ?? Vitals: (*Assess the 3 levels of oxygen saturations both for room air and 02 unless rest on room air is 88% or less). Rest BP: ? 130/70 (101) HR: 70 Sp02 ?? Sp02 95% Room Air ? Post Activity BP: 130/76 (86) HR: 75 Sp02 ?? Sp02 96% ?? Room Air ?? Observations: Pt monitored during session. Vitals stable and pt without signs or symptoms of distress. Mental Status/Cognition: Level of Consciousness-Adult: Alert Orientation Level: Oriented X4 Cognition: Follows Commands-Consistent;Attention/concentration-normal for age;Processing-Appropriate Attention Span: Appears intact Following Commands: Follows all commands and directions without difficulty Safety Judgement: Decreased awareness of need for safety Awareness of Errors: Decreased awareness of deficits ROM: RLE: AROM WFL LLE: AROM WFL Strength: RLE:WFL LLE: WFL Tone: RLE: no abnormal tone noted LLE: no abnormal tone noted Coordination: RLE: not tested LLE: not tested Sensation: RLE: intact, no complaints of numbness or tingling LLE: intact, no complaints of numbness or tingling Mobility: A gait belt and non-slip socks were used for all out of bed activity this date. Bed Mobility: Supine to Sit: Minimal Assistance (with increased time) with HOB in semi-fowlers position Sit to Supine: Stand By Assist Transfers: Sit to Stand: Minimal Assistance;Moderate Assistance Stand to Sit: Minimal Assistance;Moderate Assistance Transfer Device: Gait belt;Walker-2 Wheeled Gait: Weight Bearing Status: (no restrictions) Distance Ambulated: 20 FEET Ambulation: Assistive Device: Gait Belt;Walker-2 Wheeled Ambulation: Level of Assistance: Minimum Assistance Ambulation: Gait Deviations: Nicole - Decreased;Base of Support - Decreased;Increased Trunk Flexion;Increased Weight Bearing through Upper Extremity;Step Length - Decreased Balance: Balance Scales/Tests Used: Sitting: Static/Dynamic;Standing: Static/Dynamic Sitting - Static: Good - Sitting - Dynamic: Fair + Standing - Static: Fair;With Both Upper Extremity's Support Standing - Dynamic: Fair -;With Both Upper Extremity's Support ACTIVITY TOLERANCE: Patient's activity tolerance: good TREATMENT/INTERVENTIONS: evaluation, bed mobility training, transfer training and gait training Modified Rachel: Current Modified [place] Score: 4 AM-PAC 6 Clicks Mobility Raw Score:: 17 EDUCATION: While performing PT, Patient was instructed in:functional mobility training, energy conservation, safety awareness/fall precautions , pursed lip breathing techniques, use of adaptive equipment, discharge planning, use of call light Presented to patient who demonstrates Fair understanding of instructions given. INFORMED CONSENT TO TREATMENT: Plan of care including recommended therapy, goals and frequency, discussed with patient who understands and agrees to proceed. ASSESSMENT: Patient would benefit from additional Physical Therapy sessions to achieve the following functionalgoals to enhance independence. Short Term Goals: Goal Formation With patient Patient will perform bed mobility with stand by assist Patient will transfer sit to/from stand with stand by assist Patient will transfer bed to/from chair with stand by assist Patient will ambulate 50 feet with stand by assist and appropriate AD Surgical Manager Goal(s): Patient to be baseline with functional mobility and self-care and should discharge to prior level of care. Equipment Issued: gait belt Plan: Plan: Gait training Transfer training Stair training Assistive device training Endurance training Bed mobility training Balance training Energy conservation techniques Safety awareness If patient is discharged from the facility, this note serves as a discharge summary if further physical therapy visits did not occur. Refer to filed flowsheet for further details. Following therapy session, patient left in bed, with call light within reach, with family in room, with RN in room. * Fabian Goldstein MD - 10/23/2022 3:00 PM CDT Images from the original note were not included. [facility] Stroke Progress Maria Beck Age: [age] year old Date of : 1960 Date of Admission: 10/22/2022 Hospital Day: 1 Subjective Timeline Date LKW October 14 Time LKW unknown Code Stroke Paged 2020 Arrival at [facility] ED 2025 NIHSS Completed 2028 [facility] 2033 tPA orders placed - tPA begun - Presenting Blood pressure: 170/90 POC Glucose 259 POC INR 1 History of Present Illness Maria Beck is a 62 year old female who has a PMH of DMT2 and an old stroke with no residual deficits who presented as a code stroke for new onset left sided arm weakness, left facial droop. Her last known well was October 14. She was at a friends house for the 14 of October and had an episodeof fall while stepping off the deck. She did not hit her head and her blood glucose was high in [id number] so they attributed it to that. They are unsure if she had any noticeable weakness on the left side at that time. Patient herself states that since then for the past week she has been feeling weak on the left side. She lives with her who was unsure of the left sided weakness, thought that it would resolve. Today when her son and daughter in law were visiting, they noticed the left facial droop and noticeable left arm weakness and called the ambulance. On arrival her NIHSS was 6 see breakdown below. CTH was obtained which showed a subacute appearing small hypodensity of the basal ganglia, internal capsule and of the right medial occipital lobe. CTAwas negative for LVO. She denies history of hypertension Past Medical history: DMT2 Past Surgical history: no recent surgery Current medications: Was supposed to be on metformin and insulin but has not been taking it. Can not provide doses. Family Hx: Heart disease in brother Social Hx: smokes 1/2 PPD for 15 years, denies EtOH use and illicit drug use. Lives with . Interval Events No acute events overnight. Patient this morning reports slight improvement in left sided strength. Allergy No Known Allergies Review of Systems As per HPI Objective Patient Vitals for the past 8 hrs: BP Temp Pulse SpO2 10/23/22 1127 125/53 97.9 ??F (36.6 ??C) 60 93 % 10/23/22 1049 -- -- 68 -- Exam: Mental status: Awake, alert, Follows commands. Oriented x 3 Language: Fluency intact, comprehension intact, repetition intact. Visual moss: Intact bilaterally to confrontation. Neglect: No appreciable visual or tactile neglect noted. CN 3 - 12: left facial droop Motor: Tone/bulk/Abnormal movements: None. Objective strength: Proximal Upper Distal Upper Proximal Lower Distal Lower Right 5/5 5/5 5/5 5/5 Left 4-/5 4-/5 4+/5 4+/5 Muscle Stretch Reflexes BI BR PAT ACH TOES Right 2 2 2 2 Down Left 2 2 2 2 Down Sensory LT: symmetric PP: symmetric Vibration: Deferred Proprioception: Deferred. Cerebellar FNF Right Intact Left dysmetria Gait Deferred Ischemic Stroke Documentation NIHSS Stroke Scale: Interval: Baseline Time: 2028 Person Administering Scale: Nadine Garcia MD 1a Level of consciousness 0 = Alert; keenly responsive. 1b LOC questions 0 = Answers both questions correctly. 1c LOC commands 0 = Performs both tasks correctly. 2 Best gaze 0 = Normal. 3 Visual 0 = No visual loss. 4 Facial Palsy 2 = Partial paralysis (total or near-total paralysis of lower face). 5a Motor Left Arm 1 = Drift; limb holds 90 (or 45) degrees, but drifts down before full 10 seconds;does not hit bed or other support. 5b Motor Right Arm 0 = No drift; limb holds 90 (or 45) degrees for full 10 seconds. 6a Motor Left Leg 0 = No drift; leg holds 30 degree position for full 5 seconds. 6b Motor Right Leg 0 = No drift; leg holds 30 degree position for full 5 seconds. 7 Limb Ataxia 1 = Present in one limb. 8 Sensory 1 = Ybpu-ii-vdewmgps sensory loss; patient feels pinprick is less sharp or is dull on theaffected side; or there is a loss of superficial pain with pinprick, but patient is aware of being touched. 9 Best Language 0 = No aphasia; normal. 10 Dysarthria 1 = Yagf-dh-cbvksobb dysarthria; patient slurs at least some words and, at worst, canbe understood with some difficulty. 11 Extinction/Inattention 0 = No abnormality. Total - 6 Tenecteplase Administered? No, Tenecteplase exclusion: Last Known Well > 4.5 Hours of Unknown Large Vessel Occlusion Suspected? No Hospital Problems on Admission: Diabetes (CMS/HCC) (POA: Unknown) Left arm weakness (POA: Unknown) Cerebrovascular accident (CVA), unspecified mechanism (CMS/HCC) (POA: Unknown) Facial droop due to acute stroke (CMS/HCC) (POA: Unknown) Neuro Imagin10/23/2022 MRI BRAIN WO CONTRAST 1.Small focus of restricted diffusion and T2 hyperintensity in the right periventricular white matter, compatible with small acute infarction. No evidence of hemorrhagic transformation. 2.No midline shift. 3.Chronic encephalomalacia and gliosis in the right occipital lobe. 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 10/22/2022 CTA: IMPRESSION: 1.No occlusion, hemodynamically significant stenosis, or aneurysm of the major intracranial arteries. ?? 2.No occlusion, hemodynamically significant stenosis, or dissection of the major neck arteries. Aelr-ln-nqyklmzn calcific atherosclerosis of the cavernous and clinoid segments of the internal carotid arteries (ICAs) and minimal calcific atherosclerosis of the left vertebral artery V4 segment without occlusion or hemodynamically significant stenosis. ?? Incidentally noted -type left posterior cerebral artery with a hypoplastic left P1 segment 10/22/2022 CTH: IMPRESSION: 1.Right medial occipital lobe with an age-indeterminate hypodensity with mcnally-white differentiation loss, which is new compared to prior brain MRI 09/12/2017 and favors a lsjrvaun-hc-rwhpfpl infarct. ?? 2.Right gangliocapsular region with an age-indeterminate hypodensity measuring 1.2 cm, which is new compared to prior brain MRI 09/12/2017 and favors a chronic lacune. Assessment Maria Beck is a 62 year old female presented for left sided weakness, left facial droop, withlast well known about 1 week ago. CTH remarkable for right medial occipital and right gangliocapsular region hypodensity. CTA with no LVO or major stenosis. MRI demonstrates a new small acute infarctin the right periventricular white matter. Stroke Type: Ischemic Stroke Mechanism (As per TOAST Classification): Cardioembolic vs Small Vessel/HTN vs ESUS Plan Right occipital and gangliocapsular ischemic stroke - TTE and Telemetry; if TTE negative, consider KATH - HbA1C, Lipid Panel, Cardiac Enzymes - q4h vitals and neurological checks - Aspirin 81daily - Lipitor 40 Blood Pressure Goals: Stroke without tPA < 180 since subacute stroke for the first 12 hours Decrease SBP goals in the morning DMT2 - follow up A1c - SSI, may need a lantus lispro regimen. She is not compliant with home insulin - Also on metformin, does not remember dose, also non compliant Core Measures tPA administration: no Anti-thrombotic: no Statin: yes, lipitor DVT prophylaxis: HSQ Swallow Evaluation: pending PT/OT Evaluation: pending Smoking cessation; will milieu counselor: pending Individual Modifiable Risk Factors Hypertension: no Hyperlipidemia: no Diabetes: yes Atrial Fibrillation: no Tobacco: yes Diabetes plan of care based on A1c: Patient's A1c pending Fabian Goldstein MD Neurology Resident. PGY-3 [facility]. * Gladys Solares MD - 10/23/2022 2:50 PM CDT Images from the original note were not included. Vascular Neurology Fellow Plan of Care Note I have personally examined this patient, discussed the plan of care with resident, and have personally reviewed the laboratory and imaging results. Please refer to progress note dated for today for further details. Routine multidisciplinary rounds were completed today with the presence of the primary team staff, residents, PT/OT/SENIOUR INSIGHT MANAGER and CM/SW. Maria Beck is a 62 year old with PMHx of DM2 and prior R occipital lobe stroke w/o residual deficits presenting with left face, arm and leg weakness after a fall on 10/14/22. Sxs thought to be attributed to fall hence delayed hospital presentation. MRI b revealed infarct in R grant radiata. Patient Vitals for the past 6 hrs: Temp Pulse BP 10/23/22 1127 97.9 ??F (36.6 ??C) 60 125/53 10/23/22 1049 -- 68 -- Recent Labs Component Name 10/23/22 0348 WBC 10.3 Recent Labs Component Name 10/23/22 0348 10/22/22 2034 10/22/22 2032 09/21/17 0420 09/18/17 0400 SODIUM - - - 138 136 POTASSIUM 3.6 3.9 - 3.8 4.3 CHLORIDE - - - 101 105 CO2 25 24 - 28 21* BUN 16 17 - 15 19 CREATININE 1.08* 1.13* - 0.70 0.62 EGFR 58* 55* 84* >60 >60 GLUCOSE 206* 289* - 113* 219* CALCIUM 9.4 9.6 - 9.1 8.7 A1c: 13.8 LDL: 76 MRI BRAIN NON CONTRAST Result Date: 10/23/2022 IMPRESSION: 1.Small focus of restricted diffusion and T2 hyperintensity in the right periventricular white matter, compatible with small acute infarction. No evidence of hemorrhagic transformation. 2.No midline shift. 3.Chronic encephalomalacia and gliosis in the right occipital lobe. 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 Report dictated by Krystian Zhao MD (residential direct support professional). I, Fatuma Green MD have personally reviewed and interpreted this examination/study. > Interpreting Provider: Fatuma Green MD on 10/23/2022 9:59 AM XR CHEST 1VW PORTABLE Result Date: 10/23/2022 IMPRESSION: No unexpected radiopaque object is identified in the gptjf-uf-dsto. No acute pulmonary process. Report dictated by George Silva MD (radiology special procedure tech). Adia Madrigal MD have personally reviewed and interpreted this examination/study. > Interpreting Provider: Adia King MD on 10/23/2022 9:30 AM XR ABDOMEN KUB PORTABLE Result Date: 10/23/2022 IMPRESSION: No unexpected radiopaque object is identified in the qcnjd-cw-fnmn. Foreshortening of the left femoral neck. Consider x-rays of the left hip. Report dictated by George Silva MD (radiology special procedure tech). Adia Madrigal MD have personally reviewed and interpreted this examination/study. > Interpreting Provider: Adia King MD on 10/23/2022 9:[address] ANGIO BRAIN NECK STROKE Result Date: 10/22/2022 IMPRESSION: 1.No occlusion, hemodynamically significant stenosis, or aneurysm of the major intracranial arteries. 2.No occlusion, hemodynamically significant stenosis, or dissection of the major neckarteries. Results of this exam were verbally discussed by Dr. Zeynep Rosenberg with Dr. Garcia on 10/22/2022 at 9:11 PM for a Critical Stroke Protocol with readback confirmation and verification. The imageswere reviewed by attending physician Dr. Zeynep Rosenberg prior to this communication. > InterpretingProvider: Zeynep Rosneberg MD, PhD on 10/22/2022 9:[address] BRAIN - Stroke Result Date: 10/22/2022 IMPRESSION: 1.Right medial occipital lobe with an age-indeterminate hypodensity with mcnally-white differentiation loss, which is new compared to prior brain MRI 09/12/2017 and favors a fvrrnvvt-da-grgowmq infarct. 2.Right gangliocapsular region with an age-indeterminate hypodensity measuring 1.2 cm, which is new compared to prior brain MRI 09/12/2017 and favors a chronic lacune. 3.No acute intracranialhemorrhage or significant mass effect. Results of this exam were verbally discussed by Dr. Zeynep Rosenberg with Dr. Garcia on 10/22/2022 at 8:47 PM for a Critical Stroke Protocol with readback confirmationand verification. The images were reviewed by attending physician Dr. Zeynep Rosenberg prior to this comm unication. > Interpreting Provider: Zeynep Rosenberg MD, PhD on 10/22/2022 9:00 PM Plan: - TTE w/ bubble study; will pursue KATH if non-revealing - ASA 81 mg, Lipitor 40 gm - aggressive glycemic control - PT/OT, telemetry Gladys Solares MD, PhD Vascular and Interventional Neurology Fellow [facility] * Tanya Perera RN - 10/23/2022 2:40 PM CDT Care Coordination Progress Note Anticipated level of care at discharge: Home, Acute Rehab Facility Discharge Plan: Discharge needs dependent on response to clinical treatment and therapy recommendations. CM will continue to follow. READMISSION RISK SCORE is 10 at 2:40 PM 10/23/2022. Anticipated Discharge Date: 10/25/22 Patient/Family provided with list of resources? Unknown Preferred Provider / High Quality Network List given?: Unknown Reason for provider choice: Unknown Family Support (Name and Phone): Extended Emergency Contact Information Primary Emergency Contact: Alka Maldonado [facility] Relation: Daughter Secondary Emergency Contact: Cristhian Beck Address: [address] Relation: Other Patient is alert & orientated or has capacity for decision making: Yes If No , Legal or Designated Decision Maker: Transportation at Discharge: family Equipment at Home: List DME patient requires but does not have: DME Provider: Medication affordability concerns: No Follow Up Appointment: Transportation to MD: Auth Number (if required): [place]: DME: Medications: Transportation: Name: Tanya Perera RN Phone: [phone] * Aleshia Wallace OT - 10/23/2022 10:47 AM CDT [facility] Physical Medicine and Rehabilitation Occupational Therapy Initial Evaluation Note Patient: Maria Beck Med Record Number: [id number] Date of : 1960 Age: [age] year old PPE worn by staff: gloves;mask - procedural PPE worn by patient: gown - patient, clean;socks - clean Co-Evaluation with PT Recommendations: Discharge OT Discharge Recommendations: Patient would benefit from ongoing therapy with home health (OT) In addition to the 1:1 evaluation of the patient, additional eval time was spent completing the chart review prior to the assessment, completing the multidisciplinary plan of care and education plan post evaluation and communicating results of the eval to other treatment team members. Nurse and Physical Therapy contacted regarding patient status and/or discharge plan. Physician Orders: Evaluation and Treat Activity Level: as tolerated PRECAUTIONS: Weight Bearing Status: Lower Extremity;Upper Extremity Weight Bearing: WBAT DIAGNOSIS: Patient Active Problem List: Cerebrovascular accident (CVA) due to occlusion of cerebral artery (CMS/HCC) Left arm weakness Cerebrovascular accident (CVA), unspecified mechanism (CMS/HCC) Facial droop due to acute stroke (CMS/HCC) Diabetes (CMS/HCC) Past Medical History: Diagnosis Date ??? Diabetes (CMS/HCC) SUBJECTIVE: Subjective: Pt agreeable to therapy. PATIENT GOALS: Patient's Primary Concern: To get better Home Situation: Type of Residence: Private Residence Lives with:: Spouse;Son Steps to Enter: 1 Handrails: None Home Structure: One Story Primary Bedroom: First Floor Primary Bathroom: First Floor Bathroom : Tub/Shower Combo Equipment at Home: Hand Held Shower;Chair-Shower;Walker-4 Wheeled with Seat;Cane-Straight Prior Level of Functioning: Mobility: Ambulate-In Home ;With Assistive Device (and assist) Fallen Within 6 Mos: 4 (3-4 per daughter) Have Help at Home?: Yes, there is help at home now Who assists you at home?: Friends/Family How often is assistance provided?: Daily Oxygen at Home: No Vision: Corrected with glasses Hearing Exceptions: Hearing concerns Who manages medications?: Self and Pain Assessment: Pain Location #1 Pain Scale/Observation: Numeric (0-10) Pain Rating Score #1: 0 OBJECTIVE: At start of therapy session, patient found in bed General Appearance: Pt supine in bed, NAD. Pt's daughter present. LDA: IV's: Peripheral line and Oxygen Nasal Cannula Edema: No edema noted Vitals: (*Assess the 3 levels of oxygen saturations both for room air and 02 unless rest on room air is 88% or less). Rest BP: 130/70 (101) HR: 70 Sp02 Sp02 95% Room Air L O2 Post Activity BP: 130/76 (86) HR: 75 Sp02 Sp02 96% L O2 Room Air Observations: Pt monitored during session. Vitals stable and pt without signs or symptoms of distress. 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, otherwise 3+/5 grossly UE Tone RUE: no abnormal tone noted LUE: no abnormal tone noted Coordination: intact serial opposition for R hand, deficits noted for L hand UE Sensation RUE: intact, no complaints of numbness or tingling LUE: no complaints of numbness or tingling ; pt reports it feels slightly different than RUE Perception: Inattention/Neglect: Appears intact Initiation: Appears intact Motor Planning: Appears intact Visual Motor Tracking: Able to track stimulus in all quads w/o difficulty (Pt reports it feels more difficult when tracking pen in L visual field) Visual Moss: (Pt reports L>R difficulty) Mobility: A gait belt and non-slip socks were used for all out of bed activity this date. Bed Mobility: Supine to Sit: Minimal Assistance (with increased time) with HOB in semi-fowlers position Sit to Supine: Stand By Assist Transfers: Sit to Stand: Minimal Assistance;Moderate Assistance Stand to Sit: Minimal Assistance;Moderate Assistance Transfer Device: Gait belt;Walker-2 Wheeled Functional Ambulation: Functional mobility of ambulation with 2-wheeled walker and Minimal Assist. Balance: Balance Scales/Tests Used: Sitting: Static/Dynamic;Standing: Static/Dynamic Sitting - Static: Good - Sitting - Dynamic: Fair + Standing - Static: Fair;With Both Upper Extremity's Support Standing - Dynamic: Fair -;With Both Upper Extremity's Support Activities of Daily Living Lower Body Dressing: Stand By Assist (To don socks while sitting EOB) ACTIVITY TOLERANCE: Patient's activity tolerance: fair. Modified [place]: Current Modified Rachel Score: 4 AM-PAC 6 Clicks Daily Activity Raw Score:: 20 TREATMENT / EDUCATION / INTERVENTIONS: While performing OT, Patient and daugther was instructed in:functional mobility training, self-care training, safety awareness/fall precautions , discharge planning, use of call light Presented to patient who demonstrates Fair understanding of instructions given. INFORMED CONSENT TO TREATMENT: Plan of care including recommended therapy, goals and frequency, discussed with patient who understands and agrees to proceed. ASSESSMENT: Functional performance limited due to: limited activities of daily living, decreased functional mobility, decreased functional balance, upper extremity functional impairments and decreased visual motor skills. Short Term Goals: Goal Formation With patient/family Patient will perform lower extremity dressing independently Patient will perform supine to/from sit with stand by assist Patient will transfer sit to stand with minimal assist, with appropriate assistive device and with good safety/judgment Patient will tolerate treatment 15 minutes and with good endurance Patient will demonstrate good understanding of safety education Fpc Goal(s): Patient to be baseline with functional mobility and self-care and should discharge to prior level of care. Plan: Plan: ADL training Functional transfer training Functional balance training Endurance training Bed mobility training Safety awareness If patient is discharged from the facility, this note serves as a discharge summary if further occupational therapy visits did not occur. Refer to filed flowsheet for further details. Following therapy session, patient left in bed, with call light within reach, with family in room, with RN in room, with RNRonald aware, and being transported to floor room. * Fortino Alejandre MSW - 10/22/2022 8:42 PM CDT ED Initial Stroke Page PTs Name: Maria Beck : 1960 Deficit Noted in Page: EMS Company: [facility] location: home Family Contact: Alka Maldonado (daugther) [phone] POA/DPOA/ Advanced Directives Available: Substance Abuse: unknown Comments: Per EMS, patient's family aware of transfer. documented in this encounter H&P Notes * Nadine Garcia MD - 10/22/2022 8:43 PM CDT Images from the original note were not included. [facility] Stroke History and Physical Maria Beck Age: [age] year old Date of : 1960 Date of Admission: 10/22/2022 Hospital Day: 1 Subjective Timeline Date LKW October 14 Time LKW unknown Code Stroke Paged 2020 Arrival at [facility] ED 2025 NIHSS Completed 2028 First Imaging Slice 2033 tPA orders placed - tPA begun - Presenting Blood pressure: 170/90 POC Glucose 259 POC INR 1 History of Present Illness Maria Beck is a 62 year old female who has a PMH of DMT2 and an old stroke with no residual deficits who presented as a code stroke for new onset left sided arm weakness, left facial droop. Her last known well was October 14. She was at a friends house for the 14 of October and had an episodeof fall while stepping off the deck. She did not hit her head and her blood glucose was high in [id number] so they attributed it to that. They are unsure if she had any noticeable weakness on the left side at that time. Patient herself states that since then for the past week she has been feeling weak on the left side. She lives with her who was unsure of the left sided weakness, thought that it would resolve. Today when her son and daughter in law were visiting, they noticed the left facial droop and noticeable left arm weakness and called the ambulance. On arrival her NIHSS was 6 see breakdown below. CTH was obtained which showed a subacute appearing small hypodensity of the basal ganglia, internal capsule and of the right medial occipital lobe. CTAwas negative for LVO. She denies history of hypertension Past Medical history: DMT2 Past Surgical history: no recent surgery Current medications: Was supposed to be on metformin and insulin but has not been taking it. Can not provide doses. Family Hx: Heart disease in brother Social Hx: smokes 1/2 PPD for 15 years, denies EtOH use and illicit drug use. Lives with . Allergy No Known Allergies Review of Systems As per HPI Objective No data found. Exam: Mental status: Awake, alert, Follows commands. Oriented x 3 Language: Fluency intact, comprehension intact, repetition intact. Visual moss: Intact bilaterally to confrontation. Neglect: No appreciable visual or tactile neglect noted. CN 3 - 12: left facial droop Motor: Tone/bulk/Abnormal movements: None. Objective strength: Proximal Upper Distal Upper Proximal Lower Distal Lower Right 5/5 5/5 5/5 5/5 Left 4-/5 4-/5 4+/5 4+/5 Muscle Stretch Reflexes BI BR PAT ACH TOES Right 2 2 2 2 Down Left 2 2 2 2 Down Sensory LT: symmetric PP: symmetric Vibration: Deferred Proprioception: Deferred. Cerebellar FNF Right Intact Left dysmetria Gait Deferred Ischemic Stroke Documentation NIHSS Stroke Scale: Interval: Baseline Time: 2028 Person Administering Scale: Nadine Garcia MD 1a Level of consciousness 0 = Alert; keenly responsive. 1b LOC questions 0 = Answers both questions correctly. 1c LOC commands 0 = Performs both tasks correctly. 2 Best gaze 0 = Normal. 3 Visual 0 = No visual loss. 4 Facial Palsy 2 = Partial paralysis (total or near-total paralysis of lower face). 5a Motor Left Arm 1 = Drift; limb holds 90 (or 45) degrees, but drifts down before full 10 seconds;does not hit bed or other support. 5b Motor Right Arm 0 = No drift; limb holds 90 (or 45) degrees for full 10 seconds. 6a Motor Left Leg 0 = No drift; leg holds 30 degree position for full 5 seconds. 6b Motor Right Leg 0 = No drift; leg holds 30 degree position for full 5 seconds. 7 Limb Ataxia 1 = Present in one limb. 8 Sensory 1 = Suci-cw-kmioxbbo sensory loss; patient feels pinprick is less sharp or is dull on theaffected side; or there is a loss of superficial pain with pinprick, but patient is aware of being touched. 9 Best Language 0 = No aphasia; normal. 10 Dysarthria 1 = Qbbe-ja-wkqgqitl dysarthria; patient slurs at least some words and, at worst, canbe understood with some difficulty. 11 Extinction/Inattention 0 = No abnormality. Total - 6 Tenecteplase Administered? No, Tenecteplase exclusion: Last Known Well > 4.5 Hours of Unknown Large Vessel Occlusion Suspected? No Hospital Problems on Admission: Diabetes (CMS/HCC) (POA: Unknown) Left arm weakness (POA: Unknown) Cerebrovascular accident (CVA), unspecified mechanism (CMS/HCC) (POA: Unknown) Facial droop due to acute stroke (CMS/HCC) (POA: Unknown) Neuro Imagin10/22/2022 CTA: IMPRESSION: 1.No occlusion, hemodynamically significant stenosis, or aneurysm of the major intracranial arteries. ?? 2.No occlusion, hemodynamically significant stenosis, or dissection of the major neck arteries. Mdbz-fv-slnbzvnn calcific atherosclerosis of the cavernous and clinoid segments of the internal carotid arteries (ICAs) and minimal calcific atherosclerosis of the left vertebral artery V4 segment without occlusion or hemodynamically significant stenosis. ?? Incidentally noted -type left posterior cerebral artery with a hypoplastic left P1 segment 10/22/2022 CTH: IMPRESSION: 1.Right medial occipital lobe with an age-indeterminate hypodensity with mcnally-white differentiation loss, which is new compared to prior brain MRI 09/12/2017 and favors a tfswhsdz-un-gqqruwu infarct. ?? 2.Right gangliocapsular region with an age-indeterminate hypodensity measuring 1.2 cm, which is new compared to prior brain MRI 09/12/2017 and favors a chronic lacune. Assessment Maria Beck is a 62 year old female presented for left sided weakness, left facial droop, withlast well known about 1 week ago. CTH remarkable for right medial occipital and right gangliocapsular region hypodensity. CTA with no LVO or major stenosis. Stroke Type: Ischemic Stroke Mechanism (As per TOAST Classification): Cardioembolic vs Small Vessel/HTN vs ESUS Plan Right occipital and gangliocapsular ischemic stroke - CTH, CTA H/N, MRI Brain, MRI H/N - TTE and Telemetry; if TTE negative, consider KATH - HbA1C, Lipid Panel, Cardiac Enzymes - UA and UDS - NPO until passes swallow - q4h vitals and neurological checks - Loaded with aspirin 325mg - Aspirin 81daily - Lipitor 40 Blood Pressure Goals: Stroke without tPA < 180 since subacute stroke for the first 12 hours Decrease SBP goals in the morning DMT2 - follow up A1c - SSI, may need a lantus lispro regimen. She is not compliant with home insulin - Also on metformin, does not remember dose, also non compliant Core Measures tPA administration: no Anti-thrombotic: no Statin: yes, lipitor DVT prophylaxis: HSQ Swallow Evaluation: pending PT/OT Evaluation: pending Smoking cessation; will milieu counselor: pending Individual Modifiable Risk Factors Hypertension: no Hyperlipidemia: no Diabetes: yes Atrial Fibrillation: no Tobacco: yes Diabetes plan of care based on A1c: Patient's A1c pending Nadine Garcia MD Neurology Resident. PGY-3 [facility]. Associated attestation - Jairo Nunez MD - 10/23/2022 2:55 PM CDT Images from the original note were not included. I have seen and examined the patient with the resident and I agree with the findings and plan of care as documented by the resident. Date of Service: 10/23/2022 Jairo Nunez MD Multidisciplinary rounds were held at 9am and the patient's care and recovery plan were reviewed and developed with the assembled team. Maria Beck is a 62 year old F who presents subacutely with L sided weakness. MR shows SV grant radiata infarction. Problem List Diabetes (CMS/HCC) (POA: Unknown) Left arm weakness (POA: Unknown) Cerebrovascular accident (CVA), unspecified mechanism (CMS/HCC) (POA: Unknown) Facial droop due to acute stroke (CMS/HCC) (POA: Unknown) See Resident note for the remaining problem specific plan. 1 MEDICATIONS FOR CURRENT ENCOUNTER: SCHEDULED MEDICATIONS: Or Or 0.9% NaCl injection 3 mL, Intracatheter, q8h aspirin chew tablet 81 mg, Oral, QDAY aspirin suppository 300 mg, Rectal, QDAY atorvastatin (Lipitor) tablet 40 mg, Oral, AT BEDTIME heparin injection 5,000 Units, Subcutaneous, q8h insulin lispro (HumaLOG;ADMelog) 100 UNIT/ML pen 0-6 Units, Subcutaneous, TID WC iopamidol (Isovue 370) 76 % contrast, Intravenous, Contrast - Once [COMPLETED] aspirin suppository 300 mg, Rectal, Once [COMPLETED] aspirin tablet 325 mg, Oral, Once CONTINUOUS MEDICATIONS: PRN MEDICATIONS: Or 0.9% NaCl injection 1-10 mL, Intracatheter, PRN dextrose 10 % IV bolus, Intravenous, PRN dextrose 10 % IV bolus, Intravenous, PRN glucagon (Glucagen) injection 1 mg, Subcutaneous, PRN glucose (Diabetic Use) (Dex4 Glucose) oral liquid, Oral, PRN glucose (Diabetic Use) oral gel, Oral, PRN glucose chew tablet 4 tablet, Oral, PRN Patient Vitals for the past 24 hrs: Temp Pulse Resp BP 10/23/22 0600 -- 74 16 129/65 10/23/22 0500 -- 58 13 106/48 10/22/222049 97.6 ??F (36.4 ??C) -- -- -- 10/22/222045 -- 78 19 157/73 10/22/222035 -- 71 10 150/72 10/22/222030 -- 77 16 -- Recent Labs Component Name 10/23/22 0348 10/22/22203309/21/17 0420 09/18/17 0400 09/15/17 0304 09/14/17 0353 09/13/17 0342 NA 138 134* - - 139 139 140 CL 105 102 - - 104 105 105 CO2 25 24 28 - 27 27 25 BUN 16 17 15 - 19 17 13 CREATININE 1.08* 1.13* 0.70 - 0.6 0.6 0.6 CALCIUM 9.4 9.6 9.1 - 9.4 9.3 9.0 PHOS - - - - 4.0 3.9 3.2 - = values in this interval not displayed. Recent Labs Component Name 10/23/2234710/22/22203309/21/17 0420 WBC 10.3 11.4* 10.6 RBC 4.09 4.19 4.77 HGB 12.4 12.8 15.1 HCT 37.1 38.2 44.3 Recent Labs Component Name 10/23/2234709/12/17 1000 CHOL 157 188 TRIG 296* 400* HDL 22* 28* LDLCALC 76 80 Recent Labs Component Name 09/13/17341 HGBA1C 13.4* EAG 338 Recent Labs Component Name 10/23/2234710/22/22203309/21/17 0420 PLTCOUNT 348 383 240 documented in this encounter Consult Notes * Shayy Calixto RD/JOSELIN - 10/24/2022 1:46 PM CDTAssociated Order(s): IP CONSULT TO NUTRITIONAL SERV Initial Nutrition Assessment Brief Synopsis: Patient is at Nutrition Risk; Specific criteria can be found in assessment below Nutrition Plan: Consistent CHO diet -- RD to modify to Consistent CHO Cardiac diet per stroke protocol Recommendations to Physician: See above Consult endocrinology for DM medication management Comments: RD consulted per stroke protocol. Per neurology notes, pt found to have prior R occipitallobe stroke and new stroke in R grant radiata. A/Ox4. Pt currently on Consistent CHO diet order. Noted hx of T2DM in chart. A1C at 13.8%. PO intake 0-50% of meals during admission. Last BM 10/23 -- no GI issues noted in chart. Noted elevated triglyceride and decreased HDL levels. RD to modify current diet order to Consistent CHO Cardiac to align with stroke protocol. RD visited pt at bedside. Noted pt on phone with daughter at time of visit, but continued to participate in interview. Pt reported appetite is fine. Denies N/V/D/C. Stated UBW is around 220# and doesnot endorse any weight loss door captain. Pt shared that she takes oral medication (Metformin) daily in the AM at home. Noted that she will start on insulin at d/c. Pt, then, received another phone call from in-room phone from another daughter. RD briefly finished interview and left Stroke diet handout for pt to review. RD encouraged contact if questions/concern arise prior to d/c. RD to monitor per clinical nutrition guidelines. Assessment: Med/Surg History and Clinical Diagnoses: 62 year old female who has a PMH of DMT2 and an old strokewith no residual deficits who presented as a code stroke for new onset left sided arm weakness, left facial droop. Height: 172.7 cm (5' 8 ) Weight: 134.3 kg (296 lb) BMI: Body mass index is 45.01 kg/m??. BMI Range: Morbidly Obese Class 3 IBW/lb (Calculated) Female: 140, Recent Weights/Methods 09/12/2017 0915 09/12/2017 1000 10/24/2022 0434 Weight: 134.3 kg (296 lb) 134.7 kg (297 lb) 134.3 kg (296 lb) Weight Method (Utilize Scales): Bedscale -- -- Wt Comments: reviewed -- weight hx limited door captain Diet order accuracy Current diet order: Consistent Carb Standard Nutrition recommendation: alter/change nutrition order P.O.Intake for the past 48 hrs: % Meal Taken Av.7 % Min: 0 % Max: 50 % Supplement(s) Consumed- Last 48 hours None Food Allergies: No known food allergies GI Concerns: None Chewing/Swallowing: None Pain affecting intake: No Estimated Needs: KCAL: 8353-8572 (25-30 kcal/kg) Protein (g): 64-76 (1.0-1.2 g/kg) Fluid (ml): 1 ml/kcal Needs based on: Kcal/kg- (Comment) (IBW - 63.6kg (stroke protocol)) Recommended Access Route: PO Laboratory values: Recent Labs Component Name 10/24/22 0148 10/23/22 0348 10/22/22203310/22/22203109/21/17 0420 09/18/17 0400 09/18/17 0400 09/15/17 0304 09/14/17 0353 BUN 15 16 17 - 15 - 19 19 17 CREATININE 1.23* 1.08* 1.13* - 0.70 - 0.62 0.6 0.6 NA 141 138 134* - - - - 139 139 POTASSIUM 4.8* 3.6 3.9 - 3.8 - 4.3 3.3* 3.3* CL 104 105 102 - - - - 104 105 CO2 27 25 24 - 28 - 21* 27 27 GLUCOSE 227* 206* 289* - 113* - 219* 189* 159* CALCIUM 9.8 9.4 9.6 - 9.1 - 8.7 9.4 9.3 PROT - - 7.5 - - - - 6.3 6.2 ALB - - 2.8* - - - - 3.0* 3.0* TBILI - - 0.2 - - - - 0.5 0.5 ALKPHOS - - 79 - - - - 88 88 ALT - - 9 - - - - 11 11 AST - - 9 - - - - 12 12 ANIONGAP 15 12 12 - 9 - 10 11 10 BCR 12 15 15 - - - - 32* 28* OSMOLALITY 300 293 290 - - - - 295 293 AGRATIO - - 0.6* - - - - 0.9* 0.9* EGFR 49* 58* 55* - >60 - >60 >60 >60 EGFRAFR - - - - >60 - >60 - - - = values in this interval not displayed. Medications: Current Facility-Administered Medications Medication ??? 0.9% NaCl injection 3 mL And ??? 0.9% NaCl injection 1-10 mL ??? aspirin chew tablet 81 mg Or ??? aspirin suppository 300 mg ??? atorvastatin (Lipitor) tablet 40 mg ??? dextrose 10 % IV bolus Or ??? dextrose 10 % IV bolus ??? glucagon (Glucagen) injection 1 mg ??? glucose (Diabetic Use) (Dex4 Glucose) oral liquid ??? glucose (Diabetic Use) oral gel ??? glucose chew tablet 4 tablet ??? heparin injection 5,000 Units ??? insulin lispro (HumaLOG;ADMelog) 100 UNIT/ML pen 0-6 Units ??? iopamidol (Isovue 370) 76 % contrast Skin/Wound: WDL Education needed: Stroke Nutrition Therapy Nutrition Care Process (1) Nutrition Diagnostic Statement: Inadequate protein-energy intake related to:: decreased ability to consume or tolerate adequate food and/or fluids due to illness as evidenced by:: estimated intake insufficient to meet requirements Nutrition Diagnostic Statement Progress: New diagnostic statement established Nutrition Intervention: Meals and snacks:;Medical Food Supplements:;Nutrition Education - Content Monitoring: GI, PO intake, WT, labs, medications Evaluation: Nutrition Goal: Total intake will meet estimated nutrient needs Nutrition Goal Timeframe: Throughout stay Nutrition Goal Progress: New goal established Shayy Calixto RD/SETH, JOSELIN Ascom: [phone] * Ольга Weiss RN - 10/24/2022 12:47 PM CDT HOME CARE REFERRAL RECEIVED HOWEVER [facility] IN PATIENT'S LOCATION IS UNABLE TO ACCEPT NEW REFERRALS AT THIS TIME THEY ARE UNABLE TO OPEN TIMELY. CASE MANAGE MADE AWARE & REFERRAL CLOSED. Suzy Weiss RN technical services consultant Liaison [facility] [phone] * Adrianna Byrd RN - 10/24/2022 8:56 AM CDTAssociated Order(s): IP CONSULT TO PAPER WOOD CUTTER I have been consulted due to the possibility or diagnosis of stroke, chart reviewed. Patient Name: Maria Beck Arrival: Start: Start (10/22/222025) EMS Activated Code Stroke: Yes Arrival Mode: EMS Arrival Service(document name here): [place] [id number] (10/22/222025) EMS BP: 170/90 (10/22/222025) Last Known Well: Last known to be well Last known well - Date: 10/22/22 (10/22/222025) Last known well - Time: 1300 (10/22/222025) Initial NIHSS Score: NIH Total: 6 (10/22/222027) Last Documented NIHSS Score: NIH Total: 5 (10/23/22 1127) Initial Blood Pressure: BP: 150/72 (10/22/222035) Current Blood Pressure: BP: 133/76 (10/24/22 0810) Stroke Risk Factors: Age, Sex, Diabetes mellitus, Prior history of Stroke/Transient Ischemic Attack and Tobacco use Quality Measures - Risk Factor Modification Antithrombotic by day 2: Received Antithrombotic: Aspirin VTE Prophylaxis by day 2: Received VTE Prophylaxis: Heparin Anticoagulant if in Afib: NA KATH/ILR? Pending workup Interventions? NA LDL= Recent Labs Component Name 10/23/22 0348 09/12/17 1000 LDLCALC 76 80 High Intensity Statin: Received HGBA1C = Recent Labs Component Name 10/23/22 0914 09/13/17 0342 HGBA1C 13.8* 13.4* Appropriate Diet for patient based on HgBA1c: Diabetic I) HGBA1C >6.5 Nutrition Intern has been consulted per protocol to provide the patient with appropriate educational resources to better manage stroke risk factors. Diabetes plan of care based on A1c: Patient's A1c is equal to or greater than 6.5%. For patients with diabetes (A1c >6.5%), SGLT-2 inhibitors or GLP-1 receptor agonists have been shown to reduce major adverse cardiovascular events. These medications require close follow up with PCP or clinical laboratory scientist and lab monitoring. Due to this reason, we have deferred treatment until outpatient follow up. Envelope Fold Operator should be consulted to provide patient education. Patient will follow with PCP/Paintless Dent Repair Technician after discharge for diabetes medications and continued disease management. Nursing Swallow Screen: Total Score of questionnaire (6 or greater did not advance to the water test): Total Row: 2 (10/22/222027) Water Test Results: Fail - (Clinical signs of aspiration noted) - Keep NPO, notify physician and place on aspiration precautions. (10/22/222027) Awaiting speech therapy evaluation Evaluated by Therapy: Received Discharge Recommendation: Home Health PT/OT Personalized Stroke Education Added to AVS: Completed Depression Screen Score = Pending PHQ-2 PHQ-9 Nursing pending course of action: 1) Complete stroke/TIA education daily. 2) Individualize stroke care plan, document daily. 3) Complete neuro checks and document as ordered by MD. 4) Complete NIHSS per MD orders. (If patient has an NIHSS deviation of 4 or greater from baseline, or per nursing judgement, please call Neurologist and repeat swallow screen evaluation.) 5) Complete depression screener for patient's diagnosed with stroke/TIA on day 2 or prior to discharge to evaluate the patient's potential for developing depression. Imaging: MRI BRAIN NON CONTRAST Result Date: 10/23/2022 IMPRESSION: 1.Small focus of restricted diffusion and T2 hyperintensity in the right periventricular white matter, compatible with small acute infarction. No evidence of hemorrhagic transformation. 2.No midline shift. 3.Chronic encephalomalacia and gliosis in the right occipital lobe. 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 Report dictated by Krystian Zhao MD (residential direct support professional). Fatuma Madrigal MD have personally reviewed and interpreted this examination/study. > Interpreting Provider: Fatuma Green MD on 10/23/2022 9:59 AM XR CHEST 1VW PORTABLE Result Date: 10/23/2022 IMPRESSION: No unexpected radiopaque object is identified in the wvktm-bo-qvqv. No acute pulmonary process. Report dictated by George Silva MD (radiology special procedure tech). Adia Madrigal MD have personally reviewed and interpreted this examination/study. > Interpreting Provider: Adia King MD on 10/23/2022 9:30 AM XR ABDOMEN KUB PORTABLE Result Date: 10/23/2022 IMPRESSION: No unexpected radiopaque object is identified in the wljmh-qv-nghb. Foreshortening of the left femoral neck. Consider x-rays of the left hip. Report dictated by George Silva MD (radiology special procedure tech). Adia Madrigal MD have personally reviewed and interpreted this examination/study. > Interpreting Provider: Adia King MD on 10/23/2022 9:[address] ANGIO BRAIN NECK STROKE Result Date: 10/22/2022 IMPRESSION: 1.No occlusion, hemodynamically significant stenosis, or aneurysm of the major intracranial arteries. 2.No occlusion, hemodynamically significant stenosis, or dissection of the major neckarteries. Results of this exam were verbally discussed by Dr. Zeynep Rosenberg with Dr. Garcia on 10/22/2022 at 9:11 PM for a Critical Stroke Protocol with readback confirmation and verification. The imageswere reviewed by attending physician Dr. Zeynep Rosenberg prior to this communication. > InterpretingProvider: Zeynep Rosenberg MD, PhD on 10/22/2022 9:[address] BRAIN - Stroke Result Date: 10/22/2022 IMPRESSION: 1.Right medial occipital lobe with an age-indeterminate hypodensity with mcnally-white differentiation loss, which is new compared to prior brain MRI 09/12/2017 and favors a lgfeomri-ku-xgnwfmo infarct. 2.Right gangliocapsular region with an age-indeterminate hypodensity measuring 1.2 cm, which is new compared to prior brain MRI 09/12/2017 and favors a chronic lacune. 3.No acute intracranialhemorrhage or significant mass effect. Results of this exam were verbally discussed by Dr. Zeynep Rosenberg with Dr. Garcia on 10/22/2022 at 8:47 PM for a Critical Stroke Protocol with readback confirmationand verification. The images were reviewed by attending physician Dr. Zeynep Rosenberg prior to this comm unication. > Interpreting Provider: Zeynep Rosenberg MD, PhD on 10/22/2022 9:00 PM Thank you for allowing me to participate in the care of Maria Beck. Adrianna Byrd RN, BSN Stroke Navigator, [facility] Ascom: [phone] Email: [email or web address] * Cindy Luevano RN - 10/23/2022 8:27 AM CDTAssociated Order(s): IP CONSULT TO PHYSICAL MED AND REHAB [facility] Rehab has initiated an evaluation per stroke protocol. Will continue to follow for medical stability and tolerance/participation in therapies. Thank you for the referral. Cindy Luevano RN, BSN Clinical Liaison [facility] [phone] * Fortino Alejandre MSW - 10/22/2022 11:55 PM CDTAssociated Order(s): IP CONSULT TO CASE MANAGEMENT Stroke Psychosocial Assessment Case Management Screen completed, welcome letter given Met with patient Lives with: self Diagnosis: The primary encounter diagnosis was Left arm weakness. Diagnoses of Cerebrovascular accident (CVA), unspecified mechanism (CMS/HCC) and Facial droop due to acute stroke (CMS/HCC) were alsopertinent to this visit. Contacts/Support: Extended Emergency Contact Information Primary Emergency Contact: Alka Maldonado [facility] Relation: Daughter Secondary Emergency Contact: Cristhian Beck Address: [address] Relation: Other Insurance: Payer/Plan Subscriber Name Rel Member # Group # [id number] * MARIA BECK Self [id number] [address] Prior level of functioning: Cognition: A&Ox4 Mental Health History: n/a Employment/income status: Retired Alcohol/Drug/Tobacco: cigarettes Prior Stroke: yes Co-morbidities: prior stroke, HTN, diabetes Medication Needs: Established Resources: Community Resource Contact Information: SW Referral: Yes If patient requires HHC at discharge, he/she requests: Anticipated level of care provider: None Equipment at Home: Current DME Provider: Recommended/Needed DME: PCP: No primary care provider on file. If no PCP, action taken: Transportation: Coping Strengths: family support Short Term Goals: PT/OT/speeh Surgical Manager Goals: return to baseline Family/Support included in planning:N/A Patient and Family Questions/Concerns: Discharge Plan: Anticipated level of care at discharge: Unknown Anticipated Discharge Date: BERNADETTE Macedo Phone: [phone] 10/22/2022 documented in this encounter ED Notes * Ronald Stearns RN - 10/23/2022 11:10 AM CDT Report given to LUTHER Sifuentes on 5N. * Ronald Stearns RN - 10/23/2022 8:42 AM CDT Pt out of room taken to MRI. Pt's daughter Alka in room. * Shiva Nayak MD - 10/23/2022 6:20 AM CDT ASSUMED CARE NOTE Patient seen as a team with the resident, Dr. Perdomo, who has also contributed to this note. Patient signed out to me by Dr. Bailey at 6:00 AM. Briefly, Maria Beck is a 62 year old female is being evaluated for left- sided weakness. Last known well was October 11. At this time the patient's condition is stable. Pending bed availability. Plan is admit to stroke neurology. Vitals: 10/22/22 2046 10/22/22 2050 10/23/22 0500 10/23/22 0600 BP: 157/73 106/48 129/65 Pulse: 78 58 74 Resp: 19 13 16 Temp: 97.6 ??F (36.4 ??C) SpO2: 93% 91% 95% ED Course: 6:30 AM Reassessed the patient. Patient is resting comfortably with no new complaints. NAD. VSS. 10:16 AM: At this time, the patient has a bed assigned with stroke neurology's service. Patient to be transferred to their inpatient bed. Clinical Impression: 1. Left arm weakness 2. Cerebrovascular accident (CVA), unspecified mechanism (CMS/HCC) 3. Facial droop due to acute stroke (CMS/HCC) Disposition: Admitted to stroke neurology By signing my name below, I, Cristhian Gaytan, attest that this documentation has been prepared underthe direction and in the presence of Dr. Nayak. Signed: Paloma Mancilla. By signing my name below, IЕлена, attest that this documentation has been prepared under the direction and in the presence of Dr. Nayak. Signed: Paloma Robles. I, Dr. Nayak, personally performed the services described in this documentation. All medical record entries made by the scribe were at my direction and in my presence. I have reviewed the chart and agree that the record reflects my personal performance and is accurate and complete. * Arline Bo RN - 10/22/2022 10:42 PM CDT Bed: [facility] Expected date: Expected time: Means of arrival: Comments: Nath 1T * Jeanne Burciaga RN - 10/22/2022 10:17 PM CDT Pt arrives with complaint of weakness to left side. Per report, last known well from family was 1300 today. Past Medical History: Diagnosis Date ??? Diabetes No past surgical history on file. * Steffany Bailey MD - 10/22/2022 8:37 PM CDT ED Attending Note Interval History: Maria Beck is a 62 year old female presenting to the ED c/o weakness. Patient's family went to visit at around 1300 today and noticed a left-sided facial droop. Patient had not been seen by family since October 12 where she appeared to be in her normal state of health. Patient has a PMHx of previous stroke with no residual deficits and type 2 diabetes. Patient reports an unwitnessed fall on 10/14 that she did not pursue any medical care following. Patient arrives to ED with stable blood pressure and glucose level of 259. Per EMS, patient has not been taking insulin as instructed. Past Medical History: Diagnosis Date ??? Diabetes No past surgical history on file. Social History Socioeconomic History ??? Marital status: Spouse name: Not on file ??? Number of children: Not on file ??? Years of education: Not on file ??? Highest education level: Not on file Occupational History ??? Not on file Tobacco Use ??? Smoking status: Every Day Packs/day: 0.50 Years: 15.00 Pack years: 7.50 Types: Cigarettes Start date: 1979 ??? Smokeless tobacco: Never Substance and Sexual Activity ??? Alcohol use: No ??? Drug use: No ??? Sexual activity: Never Other Topics Concern ??? Not on file Social History Narrative ??? Not on file Social Determinants of Health Financial Resource Strain: Not on file Food Insecurity: Not on file Transportation Needs: Not on file Stress: Not on file Housing Stability: Not on file Review of Systems: (+) positive All systems negative except as marked. Constitutional: Negative for fever HENT: Negative for sore throat. Eyes: Negative for visual changes Respiratory: Negative for SOB, cough Cardiovascular: Negative for chest pain, palpitations Gastrointestinal: Negative abdominal pain, nausea, vomiting, diarrhea Genitourinary: Negative for difficulty urinating, hematuria, dysuria Musculoskeletal: Negative for neck pain, back pain, myalgia Skin: Negative for rash, itching Neurological: Positive for left-sided weakness, facial droop, and recent fall Psychiatric: Negative for SI, hallucinations, anxiety Vitals: 10/22/22 2046 10/22/22 2050 10/23/22 0500 10/23/22 0600 BP: 157/73 106/48 129/65 Pulse: 78 58 74 Resp: 19 13 16 Temp: 97.6 ??F (36.4 ??C) SpO2: 93% 91% 95% Exam: Constitutional: well developed, well nourished, no acute distress HENT: normocephalic, atraumatic, moist oral mucosa, conjunctiva normal Eyes: PERRL, no drainage Neck: supple, normal ROM Cardiovascular: regular rate and rhythm, no murmur Respiratory: clear to auscultation bilaterally, no wheezes, no respiratory distress Abdomen: soft, non-tender, non-distended Musculoskeletal: no edema or deformities Skin: warm, dry, no lesions Neurological: awake, left-sided facial droop, left-sided weakness Psychiatric: mood and affect normal MDM: Problem List: 1) Weakness Differential diagnosis to evaluate in the emergent setting: Ischemic stroke Hemorrhagic stroke Hyperglycemia Metabolic derangement Intracranial mass Other Workup: See lab testing and radiography ordered Treatment plan: Stroke protocol Symptom control Workup with labs/imaging Reassess Results: Labs Reviewed CBC W AUTO DIFFERENTIAL - Abnormal; Notable for the following components: Result Value WBC 11.4 (*) Eosinophils Absolute 0.51 (*) All other components within normal limits COMPREHENSIVE METABOLIC PANEL - Abnormal; Notable for the following components: Creatinine 1.13 (*) Sodium 134 (*) Glucose 289 (*) Albumin 2.8 (*) Albumin/Globulin Ratio 0.6 (*) eGFR by CKD-EPI 55 (*) All other components within normal limits TROPONIN-I HIGH SENSITIVE BASELINE + 1HR - Abnormal; Notable for the following components: Troponin I High Sensitive 15 (*) All other components within normal limits BASIC METABOLIC PANEL (CALCIUM TOTAL) - Abnormal; Notable for the following components: Creatinine 1.08 (*) Glucose 206 (*) eGFR by CKD-EPI 58 (*) All other components within normal limits LIPID PROFILE - Abnormal; Notable for the following components: HDL 22 (*) Triglycerides 296 (*) All other components within normal limits CREATININE - POCT INTERFACED - Abnormal; Notable for the following components: eGFR 84 (*) All other components within normal limits GLUCOSE - POINT OF CARE - Abnormal; Notable for the following components: Glucose WB/POC 266 (*) All other components within normal limits PT-INR SLH - Normal CBC W/O DIFFERENTIAL - Normal HEMOGLOBIN A1C TROPONIN-I HIGH SENSITIVE REFLEX 1HOUR INR WHOLE BLOOD - POINT OF CARE (IP) STROKE TYPE + SCREEN PANEL BLOOD TYPE VERIFICATION CT ANGIO BRAIN NECK STROKE Final Result EXAM: CT ANGIO BRAIN NECK STROKE, DATE/TIME OF EXAM: 10/22/2022 8:52 PM, LOCATION: [facility] HISTORY: I63.9: Cerebrovascular accident (CVA), unspecified mechanism [...] No occlusion, hemodynamically significant stenosis, or aneurysm. Tmvt-bo-cuyxcfey calcific atherosclerosis of the cavernous and clinoid [...] lymph nodes. Bones demonstrate no significant abnormality. Patient is edentulous. IMPRESSION: [...] Rosenberg MD, PhD on 10/22/2022 9:[address] BRAIN - Stroke Final Result EXAM: CT BRAIN STROKE, DATE/TIME OF EXAM: 10/22/2022 8:42 PM, LOCATION: [facility] HISTORY: Code Stroke EXAMINATION: CT scan of [...] prior brain MRI 09/12/2017 and favors a wfqwfuwr-zy-ywoackg infarct. Right gangliocapsular region with an age-indeterminate [...] Bilateral lens replacement; otherwise, orbits are unremarkable. Qlkg-hz-xpvjvchq calcific atherosclerosis of the carotid siphons. IMPRESSION: 1.Right medial occipital lobe with an age-indeterminate hypodensity with mcnally-white differentiation loss, which is new compared to prior brain MRI 09/12/2017 and favors a fpqspfqp-wu-ewynnci infarct. 2.Right gangliocapsular region with an age-indeterminate [...] Rosenberg MD, PhD on 10/22/2022 9:00 PM MRI BRAIN NON CONTRAST (Results Pending) EKG Interpretation: Interpreted by me: Date: 10/22/2022 Time: 612 R&R: nl sinus rhythm with a ventricular rate of 64 bpm Additional findings: left axis deviation ED course: The patient's Oxygen Saturation Monitor was interpreted by me. The reading was 93%. The patient wason RA at the time of the reading. This is interpreted as nl. 2025 Patient arrived at ED with neurology at bedside. 2032 Patient's creatine found to be 0.79 and INR of 0.9 2033 First slice 2042 After discussion with neurology, the patient will be admitted to their service for further management of CVA. Admitting provider is Dr. Nunez. - I have reviewed the diagnostic findings with the patient and they have had an opportunity to ask me any questions they have about care, diagnosis, and reason for admission. The patient states understanding and agrees to admission. [address] Nayak pending inpatient bed assignment Consult Yes, stroke team Procedure done at this time No Ultrasound done at this time No CRITICAL CARE IN THE ED No Orders and Medicine administered during this encounter: Orders Placed This Encounter ??? CT BRAIN - Stroke ??? CT ANGIO BRAIN NECK STROKE ??? MRI BRAIN NON CONTRAST ??? CBC W AUTO DIFFERENTIAL ??? COMPREHENSIVE METABOLIC PANEL ??? PT-INR [facility] ??? BASIC METABOLIC PANEL (CALCIUM TOTAL) ??? CBC W/O DIFFERENTIAL ??? TROPONIN-I HIGH SENSITIVE BASELINE + 1HR ??? HEMOGLOBIN A1C ??? LIPID PROFILE ??? TROPONIN-I HIGH SENSITIVE REFLEX 1HOUR ??? CONSULT TO PAPER WOOD CUTTER ??? CONSULT TO VASCULAR NEUROLOGY ??? IP CONSULT TO CASE MANAGEMENT ??? IP CONSULT TO NUTRITIONAL SERV ??? IP CONSULT TO PAPER WOOD CUTTER ??? CONSULT TO REHAB ??? INR WHOLE BLOOD - POINT OF CARE (IP) STROKE ??? EKG 12-LEAD ??? AND Linked Order Group ??? 0.9% NaCl injection 3 mL ??? 0.9% NaCl injection 1-10 mL ??? iopamidol (Isovue 370) 76 % contrast ??? heparin injection 5,000 Units ??? atorvastatin (Lipitor) tablet 40 mg ??? DISCONTD: aspirin chew tablet 81 mg ??? DISCONTD: aspirin suppository 300 mg ??? OR Linked Order Group ??? aspirin chew tablet 81 mg ??? aspirin suppository 300 mg ??? OR Linked Order Group ??? aspirin tablet 325 mg ??? aspirin suppository 300 mg ??? glucose (Diabetic Use) (Dex4 Glucose) oral liquid ??? glucose (Diabetic Use) oral gel ??? glucose chew tablet 4 tablet ??? OR Linked Order Group ??? dextrose 10 % IV bolus ??? dextrose 10 % IV bolus ??? glucagon (Glucagen) injection 1 mg ??? insulin lispro (HumaLOG;ADMelog) 100 UNIT/ML pen 0-6 Units Medications 0.9% NaCl injection 3 mL (3 mL Intracatheter $ Given 10/23/22 0636) And 0.9% NaCl injection 1-10 mL (has no administration in time range) iopamidol (Isovue 370) 76 % contrast (80 mL Intravenous $ Given - Contrast 10/22/222035) heparin injection 5,000 Units (5,000 Units Subcutaneous Not Administered 10/22/222199) atorvastatin (Lipitor) tablet 40 mg (40 mg Oral $ Given 10/22/222308) aspirin chew tablet 81 mg (has no administration in time range) Or aspirin suppository 300 mg (has no administration in time range) glucose (Diabetic Use) (Dex4 Glucose) oral liquid (has no administration in time range) glucose (Diabetic Use) oral gel (has no administration in time range) glucose chew tablet 4 tablet (has no administration in time range) dextrose 10 % IV bolus (has no administration in time range) Or dextrose 10 % IV bolus (has no administration in time range) glucagon (Glucagen) injection 1 mg (has no administration in time range) insulin lispro (HumaLOG;ADMelog) 100 UNIT/ML pen 0-6 Units (has no administration in time range) aspirin tablet 325 mg (325 mg Oral $ Given 10/22/222308) Or aspirin suppository 300 mg ( Rectal See Alternative 10/22/222308) Clinical Impression: 1. Left arm weakness 2. Cerebrovascular accident (CVA), unspecified mechanism (CMS/HCC) 3. Facial droop due to acute stroke (CMS/HCC) Scripts: Disposition: Admitted to neurology / GRETEL to Dr. Nayak Follow-up: By signing my name below, I, Jenn Lewis, attest that this documentation has been prepared under the direction and in the presence of Dr. Bailey. Signed: Paloma Devries. I, Dr. Bailey, personally performed the services described in this documentation. All medical record entries made by the scribe were at my direction and in my presence. I have reviewed the chart and agree that the record reflects my personal performance and is accurate and complete. Signed: Dr. Bailey. 10/29/2022. 11:19 AM. * Arline Bo RN - 10/22/2022 8:30 PM CDT Bed: T04 Expected date: Expected time: Means of arrival: Comments: Code Stroke for [facility] Age: 62 Gender: F Deficit: L sided weakness, facial droop, aphasia Glucose Levels: 259 Last Well: 1300 ETA: 9 min Paged 2019 documented in this encounter Miscellaneous Notes * Clinical References HILDA - Adrianna Byrd RN - 10/24/2022 9:15 AM CDT 538[address] Discharge Instructions for Stroke You have a high risk for a stroke, or a TIA (transient ischemic attack). During a stroke, blood stops flowing to part of your brain. This can damage areas in the brain that control other parts of thebody. Symptoms from a stroke depend on which part of the brain has been affected. Stroke risk factors Once you?ve had a stroke, you?re at greater risk for another one. Listed below are some other factors that can raise your risk for a stroke: ?? High blood pressure: Measure your blood pressure twice a day?morning and late afternoon?at aboutthe same times every day. For best results, sit comfortably with both feet on the floor for at least two minutes before taking a measurement. When you measure your blood pressure, rest your arm on a table so the blood pressure cuff is at about the same height as your heart. Record your blood pressure and show it to your doctor at every visit. ?? High cholesterol ?? Cigarette or cigar smoking: Continued smoking after stroke is associated with a high risk of stroke recurrence and other cardiovascular disease. It?s thought that smokers are around three times more likely to have a stroke than non- smokers. After a stroke or a transient ischemic attack (TIA or mini-stroke), one of the first pieces of advice given to smokers is to quit smoking. It could be one of the most important lifestyle changes you make to help you stay healthy and reduce your risk of another stroke. ?? Diabetes: HGBA1C 13.8. At your follow up appointment with your primary care physician, be sure to discuss your diabetes management and potential modifications to your disease management plan, as you have suffered a major cardiovascular event. Medications called SGLT-2 inhibitors or GLP-1 receptor agonists have been shown to reduce major adverse cardiovascular events in patients with diabetes. These medications require close follow up with PCP or clinical laboratory scientist and some lab monitoring. Due to this reason, we have deferred treatment until outpatient follow up.? ?It is important to assess your risk for future events and prevention strategies with your outpatient care team. For more information about diabetes, visit the [place] [employer] website at www.diabetes.org. Or you eneidacall 976-131-2699.? ?? Carotid or other artery disease ?? Atrial fibrillation, atrial flutter, or other heart disease ?? Not being physically active ?? Obesity ?? Certain blood disorders, such as sickle cell anemia ?? Drinking too much alcohol ?? Abusing street drugs ?? Race ?? Gender ?? Family history of stroke ?? Diet high in salty, fried, or greasy foods Changes in daily living Doing some everyday tasks may be hard after you?ve had a stroke. But you can learn new ways to manage. In fact, doing daily activities may help you to regain muscle strength. This can help your affected arm or leg work more normally. Be patient. Give yourself time to adjust. And appreciate the progress you make. Daily activities You may be at risk of falling. Make changes to your home to help you walk more easily. A therapist will decide if you need an assistive device, such as a cane or walker, to walk safely. You may need to see an occupational therapist (OT). Or you may see a physical therapist (PT). Thesehealthcare providers can help you to learn new ways of doing things. For example, you may need to make changes in how you bathe or dress. You may also need a speech therapist. This is someone who helps you speak normally again and be able to swallow. Tips for showering or bathing ?? Test the water temperature with a hand or foot that was not affected by the stroke. ?? Use grab bars, a shower seat, a handheld showerhead, and a long-handled brush. ?? Use any other device as advised by your therapists. Tips for getting dressed ?? Dress while sitting, starting with the affected side or limb. ?? Wear shirts that pull easily over your head. Wear pants or skirts with elastic waistbands. ?? Use zippers with loops attached to the pull tabs. Lifestyle changes ?? Take your medicines exactly as directed. Don?t skip doses. ?? Begin an exercise program. Ask your provider how to get started. Ask how much activity you should try to get every day or week. You can benefit from simple activities such as walking or gardening. ?? Limit how much alcohol you drink. ?? Control your cholesterol level. Follow your provider?s advice about how to do this. ?? If you are a smoker, quit now. Join a stop-smoking program to improve your chances of success. Ask your provider about medicines or other methods to help you quit. ?? Learn stress management methods. These can help you deal with stress in your home and work life. Diet Your healthcare provider will guide you on changes you may need to make to your diet. They may advise that you see a registered dietitian for help with changes. The changes can improve your cholesterol, blood pressure, and blood sugar. Changes may include: ?? Reducing the amount of fat and cholesterol you eat ?? Reducing the amount of salt (sodium) in your diet, especially if you have high blood pressure ?? Eating more vegetables and fruits ?? Eating more lean proteins, such as fish, poultry, and beans and peas (legumes) ?? Eating less red meat and processed meats ?? Using low-fat dairy products ?? Limiting vegetable oils and nut oils ?? Limiting sweets and processed foods such as chips, cookies, and baked goods ?? Not eating trans fats. These are often found in processed foods. Don't eat any food that has hydrogenated oils listed in its ingredients. Follow-up care ?? Keep your medical appointments. Close follow-up is important to stroke rehabilitation and recovery. ?? Some medicines require blood tests to check for progress or problems. Keep follow-up appointments for any blood tests ordered by your providers. Call 911 Call 911 right away if you have any of the following symptoms of stroke: ?? Weakness, tingling, or loss of feeling on one side of your face or body ?? Sudden double vision or trouble seeing in one or both eyes ?? Sudden trouble talking or slurred speech ?? Trouble understanding others ?? Sudden, severe headache ?? Dizziness, loss of balance, or a sense of falling ?? Blackouts or seizures B.E. F.A.S.T. is an easy way to remember the signs of stroke. When you see these signs, you know that you need to call 911 fast. B.E. F.A.S.T. stands for: ?? B is for balance. Sudden loss of balance or coordination. ?? E is for eyes. Vision changes in one or both eyes. ?? F is for face drooping. One side of the face is drooping or numb. When the person smiles, the smile is uneven. ?? A is for arm weakness. One arm is weak or numb. When the person lifts both arms at the same time, one arm may drift downward. ?? S is for speech difficulty. You may notice slurred speech or trouble speaking. The person can't repeat a simple sentence correctly when asked. ?? T is for time to call 911. If someone shows any of these symptoms, even if they go away, call 911 right away. Make note of the time the symptoms first appeared. Last Reviewed Date: 2021 ?? 7087-0952 [employer]. All rights reserved. This information is not intended as a substitute for professional medical care. Always follow your healthcare professional's instructions.This information has been modified by your health care provider with permission from the publisher. * Clinical References Adrianna Spears RN - 10/24/2022 9:11 AM CDT Images from the original note were not included. The Need to Quit Smoking When You Have Diabetes - Video See how smoking affects people with diabetes and learn some strategies you can use to help you quit. To view the video go to this web address: https://bit.ly/7M7AxwT Or, scan this QR code with your smart phone ?? [employer] * Clinical References Adrianna Spears RN - 10/24/2022 9:10 AM CDT Images from the original note were not included. Diabetes - Controlling Your Blood Sugar is Important - Video Let's take a minute to talk about diabetes. Diabetes is when levels of blood sugar are too high in the blood. Blood sugar is needed by the cells in your body for energy. To view the video go to this web address: https://bit.ly/0npRkV9 Or, scan this QR code with your smart phone ?? 2022 [employer] / [employer]. All Rights Reserved. * Clinical References AVS - Adrianna Byrd RN - 10/24/2022 9:07 AM CDT Images from the original note were not included. [id number] What Is Ischemic Stroke? The brain needs a constant supply of blood to work. During a stroke, blood stops flowing to part ofthe brain. The affected area is damaged. Its functions are harmed or even lost. Most strokes are caused by a blockage in a blood vessel that supplies the brain. This is an ischemic stroke. They can also occur if a blood vessel in the brain ruptures (hemorrhagic stroke). The carotids are large arteries that carry blood from the heart to the brain. From the heart to the brain The heart is a pump. It sends oxygen-rich blood out through blood vessels called arteries. If an artery between the heart and the brain is blocked, the brain can?t get enough oxygen. Some artery blockages are caused by fatty deposits (plaque). Arteries can also be blocked by blood clots. Some clotsform on the plaque. Others can form in the heart?especially in people with atrial fibrillation, an irregular heart rhythm. If a piece of plaque or clot breaks off and enters the bloodstream, it can block flow to the brain and cause a stroke. How a stroke occurs Ischemic stroke occurs when an artery that supplies the brain is greatly narrowed or blocked. This can be caused by a buildup of plaque. It can also occur when small pieces of plaque or blood clot (emboli) break off from the blood vessel or heart into the bloodstream. The emboli flow in the blood until they get stuck in a small blood vessel in the brain. Healthy arteries. In a healthy artery, the lining of the artery wall is smooth. This lets blood flow freely from the heart to the rest of the body. The brain gets all the blood it needs to function well. Damaged arteries. High blood pressure, cigarette smoking, high cholesterol, or other problems can roughen artery saravia. This allows plaque to build up in the saravia. Blood clots may also form on the plaque. This can narrow the artery and limit blood flow. Healthy arteries Damaged arteries Know the symptoms of a stroke ?? Weakness. You may feel a sudden weakness, tingling, or a loss of feeling on one side of your face or body including your arm or leg. ?? Vision problems. You may have sudden double vision or trouble seeing in one or both eyes. ?? Speech problems. You may have sudden trouble talking, slurred speech, or problems understanding others. ?? Movement problems. You may have sudden trouble walking, dizziness, a feeling of spinning, a lossof balance, a feeling of falling, or blackouts. Remember: If you have any of these symptoms, call 911 and your doctor as soon as possible. B.E. F.A.S.T. is an easy way to remember the signs of a stroke. When you see the signs, you will know what you need to call 911 fast. B.E. F.A.S.T. stands for: ?? B is for balance. Sudden loss of balance or coordination. ?? E is for eyes. Vision changes in one or both eyes. ?? F is for face drooping. One side of the face is drooping or numb. When the person smiles, the smile is uneven. ?? A is for arm weakness. One arm is weak or numb. When the person lifts both arms and the same time, one arm may drift downward. ?? S is for speech difficulty. You may notice slurred speech or trouble speaking. The person can't repeat a simple sentence correctly when asked. ?? T is for time to call 911. If someone shows any of these symptoms, even if they go away, call 911 right away. Make note of the time the symptoms first appeared. Last Reviewed Date: 2021 ?? [id number] [employer]. All rights reserved. This information is not intended as a substitute for professional medical care. Always follow your healthcare professional's instructions. documented in this encounter Plan of Treatment Scheduled Referrals Name Type Priority Associated Diagnoses Orde r Schedule Referral to Home Health Care Outpatient Referral Routine Left arm weakness Ordered: 10/24/2022 Ref to Neurology [facility] Outpatient Referral Routine Cerebrovascular accident (CVA) due to occlusion of cerebral artery (HCC) Ordered: 10/24/2022 Referral to Home Health Care Outpatient Referral Routine Left arm weakness Ordered: 10/28/2022 documented as of this encounter Procedures Procedure Name Priority Date/Time Associated Diagnosis Comments GLUCOSE - POINT OF CARE Routine 10/24/2022 4:05 PM CDT CARDIAC EKG ORDER 10/24/2022 3:3 2 PM CDT GLUCOSE - POINT OF CARE Routine 10/24/2022 12:06 PM CDT ECHO COMPLETE W BUBBLE STUDY Routine 10/24/2022 8:45 AM CDT Cerebrovascular accident (CVA), unspecified mechanism (HCC) Left arm weakness Facial droop due to acute stroke (HCC) GLUCOSE - POINT OF CARE Routine 10/24/2022 8:12 AM CDT CBC W/O DIFFERENTIAL Routine 10/24/2022 1:48 AM CDT BASIC METABOLIC PANEL (CALCIUM TOTAL) Routine 10/24/2022 1:48 AM CDT GLUCOSE - POINT OF CARE Routine 10/23/2022 4:58 PM CDT GLUCOSE - POINT OF CARE Routine 10/23/2022 2:02 PM CDT GLUCOSE - POINT OF CARE Routine 10/23/2022 9:15 AM CDT HEMOGLOBIN A1C FILOMENA 10/23/2022 9:14 AM CDT MRI BRAIN WO CONTRAST STAT 10/23/2022 9:09 AM CDT Cerebrovascular accident (CVA), unspecified mechanism (HCC) Left arm weakness Facial droop due to acute stroke (HCC) GLUCOSE - POINT OF CARE Routine 10/23/2022 8:05 AM CDT XR ABDOMEN KUB PORTABLE STAT 10/23/2022 7:38 AM CDT Left arm weakness XR CHEST 1VW PORTABLE STAT 10/23/2022 7:38 AM CDT Left arm weakness EKG 12-LEAD STAT 10/23/2022 6:13 AM CDT Cerebrovascular accident (CVA), unspecified mechanism (HCC) TROPONIN-I HIGH SENSITIVE REFLEX 1HOUR Timed 10/23/2022 6:08 AM CDT BLOOD TYPE VERIFICATION STAT 10/23/2022 6:08 AM CDT TROPONIN-I HIGH SENSITIVE BASELINE + 1HR STAT 10/23/2022 3:48 AM CDT CBC W/O DIFFERENTIAL STAT 10/23/2022 3:48 AM CDT BASIC METABOLIC PANEL (CALCIUM TOTAL) STAT 10/23/2022 3:48 AM CDT LIPID PROFILE STAT 10/23/2022 3:48 AM CDT GLUCOSE - POINT OF CARE Routine 10/22/2022 8:[address] ANGIO BRAIN NECK STROKE STAT 10/22/2022 8:40 PM CDT Cerebrovascular accident (CVA), unspecified mechanism (HCC) CT BRAIN STROKE STAT 10/22/2022 8:35 PM CDT Cerebrovascular accident (CVA), unspecified mechanism (HCC) PT-INR [facility] STAT 10/22/2022 8:34 PM CDT TYPE + SCREEN PANEL STAT 10/22/2022 8 :34 PM CDT CBC W AUTO DIFFERENTIAL STAT 10/22/2022 8:34 PM CDT COMPREHENSIVE METABOLIC PANEL STAT 10/22/2022 8:34 PM CDT INR WHOLE BLOOD - POINT OF CARE (IP) STROKE Routine 10/22/2022 8:32 PM CDT CREATININE - POCT INTERFACED Routine 10/22/2022 8:32 PM CDT documented in this encounter Results * (ABNORMAL) GLUCOSE - POINT OF CARE (10/24/2022 4:05 PM CDT) Glucose WB/POC 325(H) 70 - 115 mg/dL 10/24/2022 4:06 PM CDT [facility] Specimen Type Arterial 10/24/2022 4:06 PM CDT [facility] Blood BLOOD SPECIMEN / Unknown 10/24/2022 4:05 PM CDT 10/24/2022 4:06 PM CDT Jairo Nunez MD LAB - POINT OF CARE ORDERABLES Performing Organization Address [facility] [place] Co de Phone Number [address] [address], [place] [phone] * CARDIAC EKG ORDER (10/24/2022 3:32 PM CDT) Narrative 10/24/2022 3:32 PM CDT Ordered by an unspecified provider. Scanned Document CARDIAC SERVICES ORD ERABLES * (ABNORMAL) GLUCOSE - POINT OF CARE (10/24/2022 12:06 PM CDT) Glucose WB/POC 316(H) 70 - 115 mg/dL 10/24/2022 12:10 PM CDT [facility] Specimen Type Arterial 10/24/2022 12:10 PM CDT [facility] Blood BLOOD SPECIMEN / Unknown 10/24/2022 12:06 PM CDT 10/24/2022 12:10 PM CDT Jairo Nunez MD LAB - POINT OF CARE ORDERABLES Performing Organization Address [facility]/ZIP Co de Phone Number [address] [address], [place] [phone] * ECHO COMPLETE W BUBBLE STUDY (10/24/2022 8:45 AM CDT) BSA [id number] m2 [facility] CV FUJ I PACS LV [...] HR 133 [facility] CV FUJ I PACS [id number] 7.611 cm [facility] CV FUJ I PACS [id number] 7.769 cm [facility] CV FUJ I PACS [...] used. Jairo Nunez MD ECHO CUPID * (ABNORMAL) GLUCOSE - POINT OF CARE (10/24/2022 8:12 AM CDT) Glucose WB/POC 278(H) 70 - 115 mg/dL 10/24/2022 8:12 AM CDT [facility] Specimen Type Arterial 10/24/2022 8:12 AM CDT [facility] Blood BLOOD SPECIMEN / Unknown 10/24/2022 8:12 AM CDT 10/24/2022 8:12 AM CDT Jairo Nunez MD LAB - POINT OF CARE ORDERABLES [facility] [address] [place] [id number], [facility] [phone] * CBC W/O DIFFERENTIAL (10/24/2022 1:48 AM CDT) WBC 8.4 3.5 - 10.5 10? 3 /uL 10/24/2022 3:04 AM [facility] RBC 4.38 3.80 - 5.20 10? 6 /uL 10/24/2022 3:04 AM [facility] Hemoglobin 13.1 12.0 - 15.6 g/dL 10/24/2022 3:04 AM [facility] Hematocrit 40.0 35.0 - 45.0 % 10/24/2022 3:04 AM [facility] MCV 91.3 80.7 - 98.3 fL 10/24/2022 3:04 AM [facility] MCH 29.9 26.7 - 34.0 pg 10/24/2022 3:04 AM [facility] MCHC 32.8 30.8 - 35.9 g/dL 10/24/2022 3:04 AM [facility] RDW-SD 39.7 36.0 - 50.0 fL 10/24/2022 3:04 AM [facility] RDW-CV 11.9 11.2 - 14.8 % 10/24/2022 3:04 AM [facility] Platelet Count 349 150 - 400 10? 3 /uL 10/24/2022 3:04 AM [facility] MPV 10.1 9.4 - 12.9 fL 10/24/2022 3:04 AM [facility] nRBC Absolute 0.00 0 10? 3 /uL 10/24/2022 3:04 AM [facility] nRBC Auto 0.0 0 /100 WBC 10/24/2022 3:04 AM [facility] Blood BLOOD SPECIMEN / Unknown Lab Venipuncture / Unknown 10/24/2022 1:48 AM CDT 10/24/2022 2:59 AM CDT Jairo Nunez MD LAB - HEMATOLOGY ORD ERABLES [facility] [address] [place] [address], [facility] [phone] * (ABNORMAL) BASIC METABOLIC PANEL (CALCIUM TOTAL) (10/24/2022 1:48 AM CDT) BUN 15 7 - 26 mg/dL 10/24/2022 3:36 AM [facility] Creatinine 1.23(H) 0.56 - 0.96 mg/dL 10/24/2022 3:36 AM [facility] Sodium 141 136 - 145 mmol/L 10/24/2022 3:36 AM [facility] Potassium 4.8(H) 3.5 - 4.5 mmol/L 10/24/2022 3:36 AM [facility] Chloride 104 98 - 107 mmol/L 10/24/2022 3:36 AM [facility] CO2 27 22 - 29 mmol/L 10/24/2022 3:36 AM [facility] Glucose 227(H) 70 - 115 mg/dL 10/24/2022 3:36 AM [facility] Calcium 9.8 8.4 - 10.2 mg/dL 10/24/2022 3:36 AM [facility] Anion Gap 15 8 - 18 10/24/2022 3:36 AM [facility] BUN/Creatinine Ratio 12 7 - 23 10/24/2022 3:36 AM [facility] Osmolality Calculated 300 270 - 300 mOsm/kg 10/24/2022 3:36 AM [facility] eGFR by CKD-EPI 49(L) >=90 mL/min/1.7 3 m2 10/24/2022 3:36 AM [facility] Blood BLOOD SPECIMEN / Unknown Lab Venipuncture / Unknown 10/24/2022 1:48 AM CDT 10/24/2022 3:17 AM CDT Jairo Nunez MD LAB - CHEMISTRY ORDE RABLES [facility] [address] [place] [address], [place] [phone] * (ABNORMAL) GLUCOSE - POINT OF CARE (10/23/2022 4:58 PM CDT) Glucose WB/POC 298(H) 70 - 115 mg/dL 10/23/2022 5:07 PM CDT [facility] Specimen Type Cap Fingerstick 2022 5:07 PM CDT [facility] Blood BLOOD SPECIMEN / Unknown 10/23/2022 4:58 PM CDT 10/23/2022 5:06 PM CDT Jairo Nunez MD LAB - POINT OF CARE ORDERABLES Performing Organization Address City[facility]/ZIP Co de Phone Number [facility] [address] [place] [phone], [place] [phone] * (ABNORMAL) GLUCOSE - POINT OF CARE (10/23/2022 2:02 PM CDT) Glucose WB/POC 289(H) 70 - 115 mg/dL 10/24/2022 12:50 AM CDT [facility] Specimen Type Cap Fingerstick 2022 12:50 AM CDT [facility] Blood BLOOD SPECIMEN / Unknown 10/23/2022 2:02 PM CDT 10/24/2022 12:50 AM CDT Jairo Nunez MD LAB - POINT OF CARE ORDERABLES [facility] [address] [place] [phone], [place] [phone] * (ABNORMAL) GLUCOSE - POINT OF CARE (10/23/2022 9:15 AM CDT) Glucose WB/POC 256(H) 70 - 115 mg/dL 10/23/2022 9:17 AM CDT [facility] Specimen Type Cap Fingerstick 2022 9:17 AM CDT [facility] Blood BLOOD SPECIMEN / Unknown 10/23/2022 9:15 AM CDT 10/23/2022 9:17 AM CDT Shiva Nayak MD LAB - POINT OF CARE ORDERABLES Performing Organization Address [facility] Co de Phone Number [facility] [address] [place] [phone], [facility] [phone] * (ABNORMAL) HEMOGLOBIN A1C (10/23/2022 9:14 AM CDT) Hemoglobin A1c 13.8(H) <=5.6 % 10/23/2022 1:53 PM CDT [facility] Estimated Average Glucose 349 mg/dL 10/23/2022 1:53 PM CDT [facility] Comment: HbA1c Interpretation: Normal : < 5.7% Pre-diabetes: 5.7-6.4% Diabetes: Equal to or greater than 6.5% Test results diagnostic of diabetes should be repeated for confirmation. Treatment target values recommended by ADA and other clinical organizations should be used to evaluate metabolic control in patients. Reference: [place] [employer], Standards of Care in Diabetes [...] CDT Shiva Nayak MD LAB - CHEMISTRY ORDE RABFLORI Performing Organization Address [facility]/ZIP Co de Phone Number [facility] [address] [place] [phone], [facility] [phone] * MRI BRAIN NON CONTRAST (10/23/2022 9:09 AM CDT) Anatomical Region Laterality Modality Head Magnetic [...] ganglia. Report dictated by Krystian Zhao MD (residential direct support professional). I, Fatuma Green MD have personally reviewed and interpreted this examination/study. > Interpreting Provider: Fatuma Green MD on 10/23/2022 9:59 AM Narrative 10/23/2022 9:59 AM CDT PROCEDURE: ??MRI BRAIN WO CONTRAST, DATE/TIME OF EXAM: ??10/23/2022 9:09 AM, LOCATION ??[facility] INDICATION: I63.9: Cerebrovascular accident (CVA), unspecified mechanism [...] right occipital lobe, compatible with chronic right [employer] territory infarction. Chronic infarcts are seen in [...] CONTRAST, DATE/TIME OF EXAM: 10/23/2022 9:09AM, LOCATION [facility] INDICATION: I63.9: Cerebrovascular accident (CVA), unspecified mechanism [...] right occipital lobe, compatible with chronic right [employer] territory infarction. Chronic infarcts are seen in [...] ganglia. Report dictated by Krystian Zhao MD (residential direct support professional). I, Fatuma Green MD have personally reviewed and interpretedthis examination/study. > Interpreting Provider: Fatuma Green MD on 10/23/2022 9:59 AM Jairo Nunez MD MR ORDERABLES * (ABNORMAL) GLUCOSE - POINT OF CARE (10/23/2022 8:05 AM CDT) Glucose WB/POC 226(H) 70 - 115 mg/dL 10/23/2022 8:06 AM CDT [facility] Specimen Type Cap Fingerstick 2022 8:06 AM CDT [facility] Blood BLOOD SPECIMEN / Unknown 10/23/2022 8:05 AM CDT 10/23/2022 8:06 AM CDT Shiva Nayak MD LAB - POINT OF CARE ORDERABLES [facility] [address] [place] [address], [facility] [phone] * XR ABDOMEN KUB PORTABLE (10/23/2022 7:38 AM CDT) Anatomical Region Laterality Modality Abdomen Radiographic Ashely ging 10/23/2022 7:41 AM CDT Impressions 10/23/2022 9:28 AM CDT IMPRESSION: No unexpected radiopaque object is identified in the wvldy-qk-klhq. Foreshortening of the left femoral neck. Consider x-rays of the left hip. Report dictated by George Silva MD (radiology special procedure tech). I, Adia King MD have personally reviewed and interpreted this examination/study. > Interpreting Provider: Adia King MD on 10/23/2022 9:28 AM Narrative 10/23/2022 9:28 AM CDT EXAMINATION: XR ABDOMEN KUB PORTABLE DATE/TIME OF EXAM: ??10/23/2022 7:38 AM, LOCATION ??[facility] HISTORY: R29.898: Left arm weakness MRI safety COMPARISON: No prior study is available for comparison. FINDINGS: No unexpected radiopaque object is identified in the oswfc-uz-jmjb. Average stool burden. There are no abnormally [...] DATE/TIME OF EXAM: 10/23/2022 7:38 AM, LOCATION [facility] HISTORY: R29.898: Left arm weakness MRI safety COMPARISON: No prior study is available for comparison. FINDINGS: No unexpected radiopaque object is identified in the ltrfk-ns-ddtj. Average stool burden. There are no abnormally [...] unexpected radiopaque object is identified in the xmdqz-xg-xwnw. Foreshortening of the left femoral neck. Consider x-rays of the lefthip. Report dictated by George Silva MD (radiology special procedure tech). Adia Madrigal MD have personally reviewed and interpreted this examination/study. > Interpreting Provider: Adia King MD on 10/23/2022 9:28 AM Shiva Nayak MD DIAGNOSTIC IMAGING O RDERABLES * XR CHEST 1VW PORTABLE (10/23/2022 7:38 AM CDT) Anatomical Region Laterality Modality Chest Radiographic Ashely ging 10/23/2022 7:39 AM CDT Impressions 10/23/2022 9:30 AM CDT IMPRESSION: No unexpected radiopaque object is identified in the sxkjr-ay-uxfg. No acute pulmonary process. Report dictated by George Silva MD (radiology special procedure tech). Adia Madrigal MD have personally reviewed and interpreted this examination/study. > Interpreting Provider: Adia King MD on 10/23/2022 9:30 AM Narrative 10/23/2022 9:30 AM CDT EXAMINATION: XR CHEST 1VW PORTABLE DATE/TIME OF EXAM: ??10/23/2022 7:38 AM, LOCATION ??[facility] HISTORY: R29.898: Left arm weakness MRI safety COMPARISON: 09/12/2017 FINDINGS: No unexpected radiopaque object is identified in the givhw-hq-vhvv. No confluent consolidation is noted. No pleural effusion is seen. No pneumothorax is identified. The cardiac silhouette is normal. Aortic atherosclerosis is noted. The superior mediastinal contours are within normal limits. No acute osseous abnormality. Old right rib fractures are seen. Procedure Note Adia King MD - 10/23/2022 EXAMINATION: XR CHEST 1VW PORTABLE DATE/TIME OF EXAM: 10/23/2022 7:38 AM, LOCATION [facility] HISTORY: R29.898: Left arm weakness MRI safety COMPARISON: 09/12/2017 FINDINGS: No unexpected radiopaque object is identified in the kzgnd-ju-opvc. No confluent consolidation is noted. No pleural effusion is seen. No pneumothorax is identified. The cardiac silhouette is normal. Aortic atherosclerosis is noted. The superior mediastinal contours are within normal limits. No acute osseous abnormality. Old right rib fractures are seen. IMPRESSION: No unexpected radiopaque object is identified in the bhwht-tq-ivuo. No acute pulmonary process. Report dictated by George Silva MD (radiology special procedure tech). I, Adia King MD have personally reviewed and interpreted this examination/study. > Interpreting Provider: Adia King MD on 10/23/2022 9:30 AM Shiva Nayak MD DIAGNOSTIC IMAGING O RDERABLES * EKG 12-LEAD (10/23/2022 6:13 AM CDT) Ventricular Rate 64 BPM [facility] Atrial Rate 64 BPM [facility] P-R Interval 170 ms [facility] QRS Duration ms 84 ms [facility] Q-T Interval ms 426 ms [facility] QTC Calculation (Bezet) 439 ms [facility] Calculated P [place] 33 degrees [facility] Calculated R [place] -52 degrees [facility] Calculated T [place] 44 degrees [facility] Interpretation EKG NORMAL SINUS RHYTHM LEFT AXIS DEVIATION POSSIBLE SEPTAL INFARCT , AGE UNDETERMINED ABNORMAL ECG WHEN COMPARED WITH ECG OF 12-SEP-2017 09:45, NO SIGNIFICANT CHANGE WAS FOUND Confirmed by GEORGE SNELL, LOCO ([id number]) on 10/24/2022 10:42:46 PM [facility] 10/23/2022 6:13 AM CDT 10/24/2022 10:42 PM CDT Steffany Bailey MD ECG ORDERABLES [facility] * (ABNORMAL) TROPONIN-I HIGH SENSITIVE REFLEX 1HOUR (10/23/2022 6:08 AM CDT) Pathologist [facility] Troponin I High Sensitive 15(H) <=14 ng/L 10/23/2022 7:26 AM CDT [facility] Delta Troponin I HS 10/23/2022 7:26 AM CDT [facility] Comment:Delta value intentio joel not calculated. Baseline to 1 hour specimen collection interval exceeded. Blood BLOOD SPECIMEN / Unknown Venipuncture / Unknown 10/23/2022 6:08 AM CDT 10/23/2022 6:39 AM CDT Jairo Nunez MD LAB - CHEMISTRY MYLA GOOD [facility] [address] [place] [address], [facility] [phone] * BLOOD TYPE VERIFICATION (10/23/2022 6:08 AM CDT) Pathologist [facility] ABO Rh O NEG 10/23/2022 7:0 5 AM CDT [facility] Blood Bank BLOOD SPECIMEN / Unknown Venipuncture / Unknown 10/23/2022 6:08 AM CDT 10/23/2022 6:21 AM CDT Leyla Weber MD LAB - BLOOD BANK ORD ENMA [facility] [address] [place] [address], [facility] [phone] * CBC W/O DIFFERENTIAL (10/23/2022 3:48 AM CDT) Pathologist [facility] WBC 10.3 3.5 - 10.5 10? 3 /uL 10/23/2022 3:57 AM CDT [facility] RBC 4.09 3.80 - 5.20 10? 6 /uL 10/23/2022 3:57 AM CDT [facility] Hemoglobin 12.4 12.0 - 15.6 g/dL 10/23/2022 3:57 AM CDT [facility] Hematocrit 37.1 35.0 - 45.0 % 10/23/2022 3:57 AM CDT [facility] MCV 90.7 80.7 - 98.3 fL 10/23/2022 3:57 AM CDT [facility] MCH 30.3 26.7 - 34.0 pg 10/23/2022 3:57 AM [facility] MCHC 33.4 30.8 - 35.9 g/dL 10/23/2022 3:57 AM [facility] RDW-SD 39.6 36.0 - 50.0 fL 10/23/2022 3:57 AM [facility] RDW-CV 11.9 11.2 - 14.8 % 10/23/2022 3:57 AM [facility] Platelet Count 348 150 - 400 10? 3 /uL 10/23/2022 3:57 AM [facility] MPV 9.6 9.4 - 12.9 fL 10/23/2022 3:57 AM [facility] nRBC Absolute 0.00 0 10? 3 /uL 10/23/2022 3:57 AM [facility] nRBC Auto 0.0 0 /100 WBC 10/23/2022 3:57 AM [facility] Blood BLOOD SPECIMEN / Unknown Venipuncture / Unknown 10/23/2022 3:48 AM CDT 10/23/2022 3:52 AM CDT Jairo Nunez MD LAB - HEMATOLOGY ORD ERABLES Performing Organization Address [facility]/State/[facility] Co de Phone Number [facility] [address] [place] [phone] [phone] * (ABNORMAL) BASIC METABOLIC PANEL (CALCIUM TOTAL) (10/23/2022 3:48 AM CDT) BUN 16 7 - 26 mg/dL 10/23/2022 4:17 AM [facility] Creatinine 1.08(H) 0.56 - 0.96 mg/dL 10/23/2022 4:17 AM [facility] Sodium 138 136 - 145 mmol/L 10/23/2022 4:17 AM [facility] Potassium 3.6 3.5 - 4.5 mmol/L 10/23/2022 4:17 AM [facility] Chloride 105 98 - 107 mmol/L 10/23/2022 4:17 AM [facility] CO2 25 22 - 29 mmol/L 10/23/2022 4:17 AM [facility] Glucose 206(H) 70 - 115 mg/dL 10/23/2022 4:17 AM [facility] Calcium 9.4 8.4 - 10.2 mg/dL 10/23/2022 4:17 AM [facility] Anion Gap 12 8 - 18 10/23/2022 4:17 AM [facility] BUN/Creatinine Ratio 15 7 - 23 10/23/2022 4:17 AM [facility] Osmolality Calculated 293 270 - 300 mOsm/kg 10/23/2022 4:17 AM [facility] eGFR by CKD-EPI 58(L) >=90 mL/min/1.7 3 m2 10/23/2022 4:17 AM [facility] Blood BLOOD SPECIMEN / Unknown Venipuncture / Unknown 10/23/2022 3:48 AM CDT 10/23/2022 4:04 AM CDT Jairo Nunez MD LAB - CHEMISTRY MYLA GOOD [facility] Organization Address City/State/ZIP Co de Phone Number [facility] [address] [place] [address], [facility] [phone] * (ABNORMAL) LIPID PROFILE (10/23/2022 3:48 AM CDT) Cholesterol Total 157 <200 mg/dL 10/23/2022 4:17 AM [facility] HDL 22(L) >40 mg/dL 10/23/2022 4:17 AM [facility] Comment: ATP III Classification of HDL Cholesterol: ? <40 mg/dL: ??Considered a major risk factor. ? >60 mg/dL: ??Considered a negative risk factor. ? LDL Calculated 76 <100 mg/dL 10/23/2022 4:17 AM [facility] Comment: ATP III Classification of LDL Cholesterol: ?<100 mg/dL: ??Optimal ? 100 - 129 mg/dL: ??Near Optimal/Above Optimal ? 130 - 159 mg/dL: ??Borderline High ? 160 - 189 mg/dL: ??High ?>190 mg/dL: ??Very High ? Triglycerides 296(H) <150 mg/dL 10/23/2022 4:17 AM CDT [facility] Comment: ATP III Classification of Triglycerides: ?<150 mg/dL: ??Normal ? 150 - 199 mg/dL: ??Borderline High ? 200 - 400 mg/dL: ??High ?>500 mg/dL: ??Very High Blood BLOOD SPECIMEN / Unknown Venipuncture / Unknown 10/23/2022 3:48 AM CDT 10/23/2022 4:04 AM CDT Jairo Nunez MD LAB - CHEMISTRY MYLA GOOD Performing Organization Address [facility]/ZIP Co de Phone Number [address] [address], [place] [phone] * (ABNORMAL) TROPONIN-I HIGH SENSITIVE BASELINE + 1HR (10/23/2022 3:48 AM CDT) Troponin I High Sensitive 15(H) <=14 ng/L 10/23/2022 4:23 AM CDT [facility] Blood BLOOD SPECIMEN / Unknown Venipuncture / Unknown 10/23/2022 3:48 AM CDT 10/23/2022 4:04 AM CDT Jairo Nunez MD LAB - CHEMISTRY MYLA GOOD Performing Organization Address City[facility]/ZIP Co de Phone Number [address] [address], [place] [phone] * (ABNORMAL) GLUCOSE - POINT OF CARE (10/22/2022 8:44 PM CDT) Glucose WB/POC 266(H) 70 - 115 mg/dL 10/22/2022 8:45 PM CDT [facility] Specimen Type Cap Fingerstick 2022 8:45 PM CDT [facility] Blood BLOOD SPECIMEN / Unknown 10/22/2022 8:44 PM CDT 10/22/2022 8:45 PM CDT Provider Unknown LAB - POINT OF CARE ORDERABLES [facility] [address] [place] [phone], [facility] [phone] * CT ANGIO BRAIN NECK STROKE (10/22/2022 [...] DATE/TIME OF EXAM: 10/22/2022 8:52 PM, LOCATION: ??[facility] HISTORY: I63.9: Cerebrovascular accident (CVA), unspecified mechanism [...] No occlusion, hemodynamically significant stenosis, or aneurysm. Jxdo-pp-vvocvhhm calcific atherosclerosis of the cavernous and clinoid [...] DATE/TIME OF EXAM: 10/22/2022 8:52 PM, LOCATION: [facility] HISTORY: I63.9: Cerebrovascular accident (CVA), unspecified mechanism [...] HEAD: No occlusion, hemodynamically significant stenosis, oraneurysm. Ketn-up-diiaeacd calcific atherosclerosis of the cavernous and clinoid [...] prior brain MRI 09/12/2017 and favors a woynojrq-ph-vhxdhdr infarct. 2.Right gangliocapsular region with an age-indeterminate [...] DATE/TIME OF EXAM: 10/22/2022 8:42 PM, LOCATION: ??[facility] HISTORY: Code Stroke EXAMINATION: CT scan of [...] prior brain MRI 09/12/2017 and favors a twblbjhf-ge-hiwaulk infarct. Right gangliocapsular region with an age-indeterminate [...] Bilateral lens replacement; otherwise, orbits are unremarkable. Ehbr-zo-vfzglplu calcific atherosclerosis of the carotid siphons. Procedure Note Zeynep Rosenberg MD - 10/22/2022 EXAM: CT BRAIN STROKE, DATE/TIME OF EXAM: 10/22/2022 8:42 PM, LOCATION:[facility] HISTORY: Code Stroke EXAMINATION: CT scan of [...] to prior brainMRI 09/12/2017 and favors a vfbqcfan-dy-luspbzk infarct. Right gangliocapsular region with an age-indeterminate [...] clear. Bilateral lensreplacement; otherwise, orbits are unremarkable. Dnqe-vl-rjaffseg calcific atherosclerosis of the carotid siphons. IMPRESSION: 1.Right medial occipital lobe with an age-indeterminate hypodensity with mcnally-white differentiation loss, which is new compared to prior brainMRI 09/12/2017 and favors a jboyudwv-pb-eiumvlp infarct. 2.Right gangliocapsular region with an age-indeterminate [...] PM Steffany Bailey MD CT ORDERABLES * TYPE + SCREEN PANEL (10/22/2022 8:34 PM CDT) Antibody Screen NEG 9:21 PM CDT [facility] ABO Rh O NEG 10/22/2022 9:21 PM CDT [facility] Blood Bank BLOOD SPECIMEN / Unknown Venipuncture / Unknown 10/22/2022 8:34 PM CDT 10/22/2022 8:39 PM CDT Steffany Bailey MD LAB - BLOOD BANK ORD ERABLES [facility] [address] [place] [address], [facility] [phone] * PT-INR [facility] (10/22/2022 8:34 PM CDT) PT 13.1 12.1 - 14.8 Seconds 10/22/2022 8:59 PM CDT [facility] INR 1.0 See Comment 10/22/2022 8:59 PM CDT [facility] Comment:The suggested therap eutic range for standard coumadin (warfarin) therapy is an INR of 2.0-3.0. For high-risk patients (Mechanical Mitral Valve Prosthesis, etc.), the suggested prophylactic therapeutic range is an INR of 2.5-3.5. Blood BLOOD SPECIMEN / Unknown Venipuncture / Unknown 10/22/2022 8:34 PM CDT 10/22/2022 8:51 PM CDT Steffany Bailey MD LAB - COAGULATION OR DERABLES [facility] [address] [place] [address], [facility] [phone] * (ABNORMAL) COMPREHENSIVE METABOLIC PANEL (10/22/2022 8:34 PM CDT) BUN 17 7 - 26 mg/dL 10/22/2022 9:18 PM [facility] Creatinine 1.13(H) 0.56 - 0.96 mg/dL 10/22/2022 9:18 PM [facility] Sodium 134(L) 136 - 145 mmol/L 10/22/2022 9:18 PM [facility] Potassium 3.9 3.5 - 4.5 mmol/L 10/22/2022 9:18 PM [facility] Chloride 102 98 - 107 mmol/L 10/22/2022 9:18 PM [facility] CO2 24 22 - 29 mmol/L 10/22/2022 9:18 PM [facility] Glucose 289(H) 70 - 115 mg/dL 10/22/2022 9:18 PM [facility] Calcium 9.6 8.4 - 10.2 mg/dL 10/22/2022 9:18 PM [facility] Protein Total 7.5 6.0 - 8.3 g/dL 10/22/2022 9:18 PM [facility] Albumin 2.8(L) 3.4 - 5.0 g/dL 10/22/2022 9:18 PM [facility] Bilirubin Total 0.2 0.2 - 1.2 mg/dL 10/22/2022 9:18 PM [facility] Alkaline Phosphatase 79 40 - 150 U/L 10/22/2022 9:18 PM [facility] ALT 9 5 - 55 U/L 10/22/2022 9:18 PM [facility] AST 9 5 - 34 U/L 10/22/2022 9:18 PM [facility] Anion Gap 12 8 - 18 10/22/2022 9:18 PM [facility] BUN/Creatinine Ratio 15 7 - 23 10/22/2022 9:18 PM [facility] Osmolality Calculated 290 270 - 300 mOsm/kg 10/22/2022 9:18 PM [facility] Albumin/Globulin Ratio 0.6(L) 1.1 - 2.3 10/22/2022 9:18 PM [facility] eGFR by CKD-EPI 55(L) >=90 mL/min/1.7 3 m2 10/22/2022 9:18 PM [facility] Blood BLOOD SPECIMEN / Unknown Venipuncture / Unknown 10/22/2022 8:34 PM CDT 10/22/2022 9:04 PM CDT Steffany Bailey MD LAB - CHEMISTRY MYLA [facility] Organization Address City/State/ZIP Co de Phone Number [address] [address], [facility] [phone] * (ABNORMAL) CBC W AUTO DIFFERENTIAL (10/22/2022 8:34 PM CDT) WBC 11.4(H) 3.5 - 10.5 10? 3 /uL 10/22/2022 8:49 PM [facility] RBC 4.19 3.80 - 5.20 10? 6 /uL 10/22/2022 8:49 PM [facility] Hemoglobin 12.8 12.0 - 15.6 g/dL 10/22/2022 8:49 PM [facility] Hematocrit 38.2 35.0 - 45.0 % 10/22/2022 8:49 PM [facility] MCV 91.2 80.7 - 98.3 fL 10/22/2022 8:49 PM [facility] MCH 30.5 26.7 - 34.0 pg 10/22/2022 8:49 PM [facility] MCHC 33.5 30.8 - 35.9 g/dL 10/22/2022 8:49 PM [facility] RDW-SD 39.7 36.0 - 50.0 fL 10/22/2022 8:49 PM [facility] RDW-CV 11.9 11.2 - 14.8 % 10/22/2022 8:49 PM [facility] Platelet Count 383 150 - 400 10? 3 /uL 10/22/2022 8:49 PM [facility] MPV 9.8 9.4 - 12.9 fL 10/22/2022 8:49 PM [facility] nRBC Absolute 0.00 0 10? 3 /uL 10/22/2022 8:49 PM [facility] nRBC Auto 0.0 0 /100 WBC 10/22/2022 8:49 PM [facility] Neutrophils % 56.4 35.0 - 70.0 % 10/22/2022 8:49 PM [facility] Lymphocytes % 30.2 20.0 - 43.0 % 10/22/2022 8:49 PM [facility] Monocytes % 7.9 5.0 - 13.0 % 10/22/2022 8:49 PM [facility] Eosinophils % 4.5 0.0 - 6.0 % 10/22/2022 8:49 PM [facility] Basophil % 0.5 0.0 - 2.0 % 10/22/2022 8:49 PM [facility] Neutrophils Absolute 6.40 1.60 - 7.00 10? 3 /uL 10/22/2022 8:49 PM [facility] Lymphocyte Absolute 3.43 1.10 - 3.90 10? 3 /uL 10/22/2022 8:49 PM [facility] Monocytes Absolute 0.90 0.26 - 1.07 10? 3 /uL 10/22/2022 8:49 PM [facility] Eosinophils Absolute 0.51(H) 0.00 - 0.47 10? 3 /uL 10/22/2022 8:49 PM [facility] Basophils Absolute 0.06 0.00 - 0.08 10? 3 /uL 10/22/2022 8:49 PM [facility] Immature Granulocytes % 0.5 0.0 - 1.0 % 10/22/2022 8:49 PM [facility] Immature Granulocytes Absolute 0.06 10/22/2022 8:49 PM CDT [facility] Blood BLOOD SPECIMEN / Unknown Venipuncture / Unknown 10/22/2022 8:34 PM CDT 10/22/2022 8:40 PM CDT Steffany Bailey MD LAB - HEMATOLOGY ORD ERABLES [address] [address], [facility] [phone] * (ABNORMAL) CREATININE - POCT INTERFACED (10/22/2022 8:32 PM CDT) Creatinine POCT 0.79 0.30 - 1.30 mg/dL 10/22/2022 8:38 PM CDT [facility] eGFR 84(L) >90 mL/min/1.7 3 m2 10/22/2022 8:38 PM CDT [facility] Blood BLOOD SPECIMEN / Unknown 10/22/2022 8:32 PM CDT 10/22/2022 8:37 PM CDT Provider Unknown LAB - POINT OF CARE ORDERABLES Performing Organization Address [facility]/ZIP Co de Phone Number [address] [address], [place] [phone] * INR WHOLE BLOOD - POINT OF CARE (IP) STROKE (10/22/2022 8:32 PM CDT) INR 0.9 0.9 - 1.2 10/22/2022 8:37 PM CDT [facility] Device [id number] 10/22/2022 8:37 PM CDT [facility] Broadcast Operations Manager ID [id number] 10/22/2022 8:37 PM CDT [facility] Blood BLOOD SPECIMEN / Unknown 10/22/2022 8:32 PM CDT 10/22/2022 8:37 PM CDT Provider Unknown LAB - POINT OF CARE ORDERABLES [facility] [address] [place] [address], [facility] [phone] documented in this encounter Visit Diagnoses Diagnosis Left arm weakness- Primary Other musculoskeletal symptoms referable to limbs Cerebrovascular accident (CVA), unspecified mechanism (HCC) Left arm weakness Other musculoskeletal symptoms referable to limbs Facial droop due to acute stroke (HCC) Cerebrovascular accident (CVA) due to occlusion of cerebral artery (HCC) Cerebrovascular accident (CVA), unspecified mechanism (HCC) Facial droop due to acute stroke (HCC) Diabetes (HCC) documented in this encounter Administered Medications Inactive Administered Medications - up to 3 most recent administrations Medication Order MAR Action Action Date Dose Rate Site 0.9% NaCl injection 1-10 mL 1-10 mL, Intracatheter, PRN, Other, peripheral line flush, Starting on Thu10/22/22 at 2030, Until Thu10/24/22 at 2044, Flush peripheral IV catheter with 1-10 mL of normal saline before and after medications and prn to clear blood from the line or to verify patency. 0.9% NaCl injection 3 mL 3 mL, Intracatheter, EVERY 8 HOURS, First dose on Thu10/22/22 at 2200, Until Discontinued, Flush peripheral IV catheter with 3 mL of normal saline every 8 hours. $ Given 10/24/2022 2:50 PM CDT 3 mL $ Given 10/24/2022 5:26 AM CDT 3 mL $ Given 10/23/2022 9:01 PM CDT 3 mL aspirin chew tablet 81 mg 81 mg, Oral, DAILY, First dose on Thu10/23/22 at 0900, Until Discontinued, May give aspirin PO or CA $ Given 10/24/2022 9:01 AM CDT 81 mg $ Given 10/23/2022 9:17 AM CDT 81 mg aspirin suppository 300 mg 300 mg, Rectal, DAILY, First dose on Thu10/23/22 at 0900, Until Discontinued, May give aspirin PO or CA aspirin tablet 325 mg 325 mg, Oral, ONCE, 1 dose, On Thu10/22/22 at 2100 $ Given 10/22/2022 11:09 PM CDT 325 mg atorvastatin (Lipitor) tablet 40 mg 40 mg, Oral, AT BEDTIME, First dose on Thu10/22/22 at 2115, Until Discontinued $ Given 10/23/2022 9:00 PM CDT 40 mg $ Given 10/22/2022 11:09 PM CDT 40 mg dextrose 10 % IV bolus 12.5 g, at 468.75 mL/hr, Intravenous, PRN, Other, Bedside Glucose less than 70 mg/dL -If NOT able to eat and/or NPO and with IV Access, Starting on Thu10/22/22 at 2352, Until Thu10/24/22 at 2044, If NOT able to eat and/or NPO and with IV Access: For Bedside Glucose 54-69 mg/dL give 12.5 g Dextrose IV STAT For Bedside Glucose LESS than 54 mg/dl verify with a second Bedside Glucose (from a different site) and give 25 g Dextrose IV STAT Re-check and Re-treat blood glucose EVERY , 10-25 minutes until blood glucose GREATER than or equal to 80 mg/dl. NOTIFY PROVIDER OF HYPOGLYCEMIC EVENT. dextrose 10 % IV bolus 25 g, at 937.5 mL/hr, Intravenous, PRN, Other, Bedside Glucose less than 70 mg/dL -If NOT able to eat and/or NPO and with IV Access, Starting on Thu10/22/22 at 2352, Until Thu10/24/22 at 2044, If NOT able to eat and/or NPO and with IV Access: For Bedside Glucose 54-69 mg/dL - give 12.5 g Dextrose IV STAT For Bedside Glucose LESS than 54 mg/dl - verify with a second Bedside Glucose (from a different site) and give 25 g Dextrose IV STAT Re-check and Re-treat blood glucose EVERY - 10-25 minutes until blood glucose GREATER than or equal to 80 mg/dl. - If repeat bedside glucose 54-79 give 12.5 g Dextrose IV STAT NOTIFY PROVIDER OF HYPOGLYCEMIC EVENT. glucagon (Glucagen) injection 1 mg 1 mg, Subcutaneous, PRN, Bedside Glucose less than 70 mg/dL - If NOT able to eat and/or NPO and withOUT IV Access, Starting on Thu10/22/22 at 2352, Until Thu10/24/22 at 2044, If NOT able to eat and/or NPO and NO IV Access: For Bedside glucose 54-69 mg/dL - Give 1 mg subcutaneous For Bedside Glucose LESS than 54 mg/dl - verify with a second bedside glucose (from a different site) - Give 1 mg subcutaneous Re-check and Re-treat blood glucose EVERY 10-25 minutes until blood glucose GREATER than or equal to 80 mg/dl. NOTIFY PROVIDER OF HYPOGLYCEMIC EVENT. Reconstitute vial with 1 mL of sterile water for injection for a final concentration of 1 mg/mL; shake vial gently; use immediately and discard unused portion glucose (Diabetic Use) (Dex4 Glucose) oral liquid Oral, PRN, Other, Bedside Glucose less than 70 mg/dL -If able to eat and does not have swallowing difficulties, Starting on Thu10/22/22 at 2352, Until Thu10/24/22 at 2044, If able to eat and can swallow thin liquids: For Bedside Glucose 54 - 69 mg/dL Give 15 grams of oral carbohydrates - 1 glucose liquid (see MAR) If patient refuses glucose liquid, then offer: - 4 ounces of fruit juice OR - 4 ounces non-diet soda OR - 8 ounces of fat-free milk For Bedside Glucose LESS than 54 mg/dL - verify with a second Bedside Glucose (from a different site) - If pt is symptomatic, do not delay treatment - If accuracy of the POC glucose is in question, confirm glucose with a STAT laboratory test. Give 30 grams of oral carbohydrates - 2 glucose liquid (see MAR) If patient refuses glucose liquid, then offer: - 8 ounces of fruit juice OR - 8 ounces non-diet soda OR - 16 ounces of fat-free milk Re-check and Re-treat blood glucose EVERY 10-25 minutes until blood glucose GREATER than or equal to 80 mg/dl. - If on recheck, bedside glucose 54-79 mg/dL - Give 15 grams of oral carbohydrates (see above for choices) NOTIFY PROVIDER OF HYPOGLYCEMIC EVENT. glucose (Diabetic Use) oral gel Oral, PRN, Other, Bedside Glucose less than 70 mg/dL -If able to eat and does not have swallowing difficulties, Starting on Thu10/22/22 at 2352, Until Thu10/24/22 at 2044, If able to eat and is better able to swallow gel: For Bedside Glucose 54 - 69 mg/dL Give 15 grams of oral carbohydrates - 1 glucose gel (see MAR) If patient refuses glucose gel, then offer: - 4 ounces of fruit juice OR - 4 ounces non-diet soda OR - 8 ounces of fat-free milk For Bedside Glucose LESS than 54 mg/dL verify with a second Bedside Glucose (from a different site) - If pt is symptomatic, do not delay treatment - If accuracy of the POC glucose is in question, confirm glucose with a STAT laboratory test Give 30 grams of oral carbohydrates - 2 glucose gels (see MAR) If patient refuses glucose gel, then offer: - 8 ounces of fruit juice OR - 8 ounces non-diet soda OR - 16 ounces of fat-free milk Re-check and Re-treat blood glucose EVERY 10-25 minutes until blood glucose GREATER than or equal to 80 mg/dl. - If on recheck, bedside glucose 54-79 mg/dL - Give 15 grams of oral carbohydrates (see above for choices) NOTIFY PROVIDER OF HYPOGLYCEMIC EVENT. glucose chew tablet 4 tablet 4 tablet (16 g), Oral, PRN, Other, Bedside Glucose less than 70 mg/dL -If able to eat and does not have swallowing difficulties, Starting on Thu10/22/22 at 2352, Until Thu10/24/22 at 2045, If able to eat and does not have swallowing difficulties: For Bedside Glucose 54 - 69 mg/dL Give 16 grams of oral carbohydrates - 4 glucose tabs (see MAR) If patient refuses glucose tabs, then offer: - 4 ounces of fruit juice OR - 4 ounces non-diet soda OR - 8 ounces of fat-free milk For Bedside Glucose LESS than 54 mg/dL - verify with a second Bedside Glucose (from a different site) - If pt is symptomatic, do not delay treatment - If accuracy of the POC glucose is in question, confirm glucose with a STAT laboratory test. Give 32 grams of oral carbohydrates - 8 glucose tabs (see MAR) If patient refuses glucose gel, then offer: - 8 ounces of fruit juice OR - 8 ounces non-diet soda OR - 16 ounces of fat-free milk Re-check and Re-treat blood glucose EVERY 10-25 minutes until blood glucose GREATER than or equal to 80 mg/dl. - If on recheck, bedside glucose 54-79 mg/dL - Give 15 grams of oral carbohydrates (see above for choices). NOTIFY PROVIDER OF HYPOGLYCEMIC EVENT. heparin injection 5,000 Units 5,000 Units, Subcutaneous, EVERY 8 HOURS, First dose on Thu10/22/22 at 2200, Until Discontinued $ Given 10/24/2022 2:52 PM CDT 5,000 Units Abdominal Tissue $ Given 10/24/2022 5:27 AM CDT 5,000 Units A bdominal Tissue $ Given 10/23/2022 9:00 PM CDT 5,000 Units A bdominal Tissue insulin lispro (HumaLOG;ADMelog) 100 UNIT/ML pen 0-6 Units 0-6 Units, Subcutaneous, 3 TIMES DAILY WITH MEALS, First dose on Thu10/23/22 at 0800, Until Discontinued, DO NOT HOLD CORRECTION BOLUS EVEN IF PATIENT IS NPO. If patient is eating meals and has orders for Mealtime Insulin Bolus, combine and give at the same time. BEDSIDE GLUCOSE MUST BE PERFORMED AND DOCUMENTED WITHIN 30-60 MINUTES OF CORRECTION INSULIN ADMINISTRATION. BG (mg/dL) LESS than 70 = follow Hypoglycemic guidelines 150-200 = give 1 unit 201-250 = give 2 units, 251-300 = give 3 units 301-350 = give 4 units 351-400 = give 5 units and notify physician GREATER than 400 = give 6 units and notify physician $ Given 10/24/2022 2:49 PM CDT 4 Units Abdominal Tissue $ Given 10/24/2022 9:01 AM CDT 3 Units Le ft Arm $ Given 10/23/2022 6:16 PM CDT 3 Units Ab dominal Tissue iopamidol (Isovue 370) 76 % contrast Intravenous, CONTRAST ONCE, Starting on Thu10/22/22 at 2036, Until Thu10/24/22 at 2034 $ Given - Contrast 10/22/2022 8:36 PM CDT 80 mL documented in this encounter Active and Recently Administered Medications Times are shown in CDT. Scheduled Medication Order 10/22/2022 10/23/2022 10/24/2022 0.9% NaCl injection 3 mL(Linked Group 1) 3 mL, Intracatheter, EVERY 8 HOURS, First dose on Thu10/22/22 at 2200, Until Discontinued, Flush peripheral IV catheter with 3 mL of normal saline every 8 hours. 2200 (Not Administered - Provider: Pati Cruz RN - Reason: Patient sleeping) 0636 ($ Given - Provider: Luis Fernando Hu RN)1403 ($ Given - Provider: Maria Moss RN)2101 ($ Given - Provider: Deborah Huffman RN) 0526 ($ Given - Provider: Deborah Huffman, LUTHER)1450 ($ Given - Provider: Maria Moss, LUTHER) aspirin chew tablet 81 mg(Linked Group 2) 81 mg, Oral, DAILY, First dose on Thu10/23/22 at 0900, Until Discontinued, May give aspirin PO or CA 0917 ($ Given - Provider: Ronald Stearns RN) 09 ($ Given - Provider: Maria Moss RN) aspirin suppository 300 mg(Linked Group 2) 300 mg, Rectal, DAILY, First dose on Thu10/23/22 at 0900, Until Discontinued, May give aspirin PO or CA 0917 (See Alternative - Provider: Ronald Stearns RN) 09 (See Alternative - Provider: Maria Moss RN) aspirin tablet 325 mg (COMPLETED)(Linked Group 3) 325 mg, Oral, ONCE, 1 dose, On Thu10/22/22 at 2100 230 ($ Given - Provider: Meghana Ross RN) atorvastatin (Lipitor) tablet 40 mg 40 mg, Oral, AT BEDTIME, First dose on Thu10/22/22 at 2115, Until Discontinued 230 ($ Given - Provider: Meghana Ross RN) 2100 ($ Given - Provider: Deborah Huffman RN) heparin injection 5,000 Units 5,000 Units, Subcutaneous, EVERY 8 HOURS, First dose on Thu10/22/22 at 2200, Until Discontinued 220 (Not Administered - Provider: Pati Cruz RN - Reason: See Comments) 0926 ($ Given - Provider: Ronald Stearns RN)1405 ($ Given - Provider: Maria Moss RN)2100 ($ Given - Provider: Deborah Huffman, LUTHER) 0527 ($ Given - Provider: Deborah Huffman RN)1452 ($ Given - Provider: Maria Moss RN) insulin lispro (HumaLOG;ADMelog) 100 UNIT/ML pen 0-6 Units 0-6 Units, Subcutaneous, 3 TIMES DAILY WITH MEALS, First dose on Thu10/23/22 at 0800, Until Discontinued, DO NOT HOLD CORRECTION BOLUS EVEN IF PATIENT IS NPO. If patient is eating meals and has orders for Mealtime Insulin Bolus, combine and give at the same time. BEDSIDE GLUCOSE MUST BE PERFORMED AND DOCUMENTED WITHIN 30-60 MINUTES OF CORRECTION INSULIN ADMINISTRATION. BG (mg/dL) LESS than 70 = follow Hypoglycemic guidelines 150-200 = give 1 unit 201-250 = give 2 units, 251-300 = give 3 units 301-350 = give 4 units 351-400 = give 5 units and notify physician GREATER than 400 = give 6 units and notify physician 0917 ($ Given - Provider: Ronald Stearns RN)1403 ($ Given - Provider: Maria Moss, RN)1816 ($ Given - Provider: Maria Moss, RN) 0901 ($ Given - Provider: Maria Moss, RN)1449 ($ Given - Provider: Maria Moss RN)1800 (Due) iopamidol (Isovue 370) 76 % contrast Intravenous, CONTRAST ONCE, Starting on Thu10/22/22 at 2035, Until Thu10/24/22 at 2034 2035 ($ Given - Contrast - Provider: Samantha Barfield, RT(R)) PRN Medication Order 10/22/2022 10/23/2022 10/24/2022 0.9% NaCl injection 1-10 mL(Linked Group 1) 1-10 mL, Intracatheter, PRN, Other, peripheral line flush, Starting on Thu10/22/22 at 2030, Until Thu10/24/22 at 2044, Flush peripheral IV catheter with 1-10 mL of normal saline before and after medications and prn to clear blood from the line or to verify patency. dextrose 10 % IV bolus(Linked Group 4) 12.5 g, at 468.75 mL/hr, Intravenous, PRN, Other, Bedside Glucose less than 70 mg/dL -If NOT able to eat and/or NPO and with IV Access, Starting on Thu10/22/22 at 2352, Until Thu10/24/22 at 2044, If NOT able to eat and/or NPO and with IV Access: For Bedside Glucose 54-69 mg/dL give 12.5 g Dextrose IV STAT For Bedside Glucose LESS than 54 mg/dl verify with a second Bedside Glucose (from a different site) and give 25 g Dextrose IV STAT Re-check and Re-treat blood glucose EVERY , 10-25 minutes until blood glucose GREATER than or equal to 80 mg/dl. NOTIFY PROVIDER OF HYPOGLYCEMIC EVENT. dextrose 10 % IV bolus(Linked Group 4) 25 g, at 937.5 mL/hr, Intravenous, PRN, Other, Bedside Glucose less than 70 mg/dL -If NOT able to eat and/or NPO and with IV Access, Starting on Thu10/22/22 at 2352, Until Thu10/24/22 at 2044, If NOT able to eat and/or NPO and with IV Access: For Bedside Glucose 54-69 mg/dL - give 12.5 g Dextrose IV STAT For Bedside Glucose LESS than 54 mg/dl - verify with a second Bedside Glucose (from a different site) and give 25 g Dextrose IV STAT Re-check and Re-treat blood glucose EVERY - 10-25 minutes until blood glucose GREATER than or equal to 80 mg/dl. - If repeat bedside glucose 54-79 give 12.5 g Dextrose IV STAT NOTIFY PROVIDER OF HYPOGLYCEMIC EVENT. glucagon (Glucagen) injection 1 mg 1 mg, Subcutaneous, PRN, Bedside Glucose less than 70 mg/dL - If NOT able to eat and/or NPO and withOUT IV Access, Starting on Thu10/22/22 at 2352, Until Thu10/24/22 at 2044, If NOT able to eat and/or NPO and NO IV Access: For Bedside glucose 54-69 mg/dL - Give 1 mg subcutaneous For Bedside Glucose LESS than 54 mg/dl - verify with a second bedside glucose (from a different site) - Give 1 mg subcutaneous Re-check and Re-treat blood glucose EVERY 10-25 minutes until blood glucose GREATER than or equal to 80 mg/dl. NOTIFY PROVIDER OF HYPOGLYCEMIC EVENT. Reconstitute vial with 1 mL of sterile water for injection for a final concentration of 1 mg/mL; shake vial gently; use immediately and discard unused portion glucose (Diabetic Use) (Dex4 Glucose) oral liquid Oral, PRN, Other, Bedside Glucose less than 70 mg/dL -If able to eat and does not have swallowing difficulties, Starting on Thu10/22/22 at 2352, Until Thu10/24/22 at 2044, If able to eat and can swallow thin liquids: For Bedside Glucose 54 - 69 mg/dL Give 15 grams of oral carbohydrates - 1 glucose liquid (see MAR) If patient refuses glucose liquid, then offer: - 4 ounces of fruit juice OR - 4 ounces non-diet soda OR - 8 ounces of fat-free milk For Bedside Glucose LESS than 54 mg/dL - verify with a second Bedside Glucose (from a different site) - If pt is symptomatic, do not delay treatment - If accuracy of the POC glucose is in question, confirm glucose with a STAT laboratory test. Give 30 grams of oral carbohydrates - 2 glucose liquid (see MAR) If patient refuses glucose liquid, then offer: - 8 ounces of fruit juice OR - 8 ounces non-diet soda OR - 16 ounces of fat-free milk Re-check and Re-treat blood glucose EVERY 10-25 minutes until blood glucose GREATER than or equal to 80 mg/dl. - If on recheck, bedside glucose 54-79 mg/dL - Give 15 grams of oral carbohydrates (see above for choices) NOTIFY PROVIDER OF HYPOGLYCEMIC EVENT. glucose (Diabetic Use) oral gel Oral, PRN, Other, Bedside Glucose less than 70 mg/dL -If able to eat and does not have swallowing difficulties, Starting on Thu10/22/22 at 2352, Until Thu10/24/22 at 2045, If able to eat and is better able to swallow gel: For Bedside Glucose 54 - 69 mg/dL Give 15 grams of oral carbohydrates - 1 glucose gel (see MAR) If patient refuses glucose gel, then offer: - 4 ounces of fruit juice OR - 4 ounces non-diet soda OR - 8 ounces of fat-free milk For Bedside Glucose LESS than 54 mg/dL verify with a second Bedside Glucose (from a different site) - If pt is symptomatic, do not delay treatment - If accuracy of the POC glucose is in question, confirm glucose with a STAT laboratory test Give 30 grams of oral carbohydrates - 2 glucose gels (see MAR) If patient refuses glucose gel, then offer: - 8 ounces of fruit juice OR - 8 ounces non-diet soda OR - 16 ounces of fat-free milk Re-check and Re-treat blood glucose EVERY 10-25 minutes until blood glucose GREATER than or equal to 80 mg/dl. - If on recheck, bedside glucose 54-79 mg/dL - Give 15 grams of oral carbohydrates (see above for choices) NOTIFY PROVIDER OF HYPOGLYCEMIC EVENT. glucose chew tablet 4 tablet 4 tablet (16 g), Oral, PRN, Other, Bedside Glucose less than 70 mg/dL -If able to eat and does not have swallowing difficulties, Starting on Thu10/22/22 at 2352, Until Thu10/24/22 at 2044, If able to eat and does not have swallowing difficulties: For Bedside Glucose 54 - 69 mg/dL Give 16 grams of oral carbohydrates - 4 glucose tabs (see MAR) If patient refuses glucose tabs, then offer: - 4 ounces of fruit juice OR - 4 ounces non-diet soda OR - 8 ounces of fat-free milk For Bedside Glucose LESS than 54 mg/dL - verify with a second Bedside Glucose (from a different site) - If pt is symptomatic, do not delay treatment - If accuracy of the POC glucose is in question, confirm glucose with a STAT laboratory test. Give 32 grams of oral carbohydrates - 8 glucose tabs (see MAR) If patient refuses glucose gel, then offer: - 8 ounces of fruit juice OR - 8 ounces non-diet soda OR - 16 ounces of fat-free milk Re-check and Re-treat blood glucose EVERY 10-25 minutes until blood glucose GREATER than or equal to 80 mg/dl. - If on recheck, bedside glucose 54-79 mg/dL - Give 15 grams of oral carbohydrates (see above for choices). NOTIFY PROVIDER OF HYPOGLYCEMIC EVENT. Linked Groups Order Group 1: SALINE LOCK, INSERT AND MAINTAIN (CANCELED) Routine, CONTINUOUS, Starting on Thu10/22/22 at 2044, Until Specified, New collection, Task Completed: Yes And 0.9% NaCl injection 3 mLJump to med 3 mL, Intracatheter, EVERY 8 HOURS, First dose on Thu10/22/22 at 2200, Until Discontinued, Flush peripheral IV catheter with 3 mL of normal saline every 8 hours. And 0.9% NaCl injection 1-10 mLJump to med 1-10 mL, Intracatheter, PRN, Other, peripheral line flush, Starting on Thu10/22/22 at 203, Until Thu10/24/22 at 2044, Flush peripheral IV catheter with 1-10 mL of normal saline before and after medications and prn to clear blood from the line or to verify patency. Group 2: aspirin chew tablet 81 mgJump to med 81 mg, Oral, DAILY, First dose on Thu10/23/22 at 0900, Until Discontinued, May give aspirin PO or CA Or aspirin suppository 300 mgJump to med 300 mg, Rectal, DAILY, First dose on Thu10/23/22 at 0900, Until Discontinued, May give aspirin PO or CA Group 3: aspirin tablet 325 mg (COMPLETED)Jump to med 325 mg, Oral, ONCE, 1 dose, On Thu10/22/22 at 2100 Or aspirin suppository 300 mg (COMPLETED) 300 mg, Rectal, ONCE, 1 dose, On Thu10/22/22 at 2100, May give rectally if unable to take orally. Group 4: dextrose 10 % IV bolusJump to med 12.5 g, at 468.75 mL/hr, Intravenous, PRN, Other, Bedside Glucose less than 70 mg/dL -If NOT able to eat and/or NPO and with IV Access, Starting on Thu10/22/22 at 2352, Until Thu10/24/22 at 2044, If NOT able to eat and/or NPO and with IV Access: For Bedside Glucose 54-69 mg/dL give 12.5 g Dextrose IV STAT For Bedside Glucose LESS than 54 mg/dl verify with a second Bedside Glucose (from a different site) and give 25 g Dextrose IV STAT Re-check and Re-treat blood glucose EVERY , 10-25 minutes until blood glucose GREATER than or equal to 80 mg/dl. NOTIFY PROVIDER OF HYPOGLYCEMIC EVENT. Or dextrose 10 % IV bolusJump to med 25 g, at 937.5 mL/hr, Intravenous, PRN, Other, Bedside Glucose less than 70 mg/dL -If NOT able to eat and/or NPO and with IV Access, Starting on Thu10/22/22 at 2352, Until Thu10/24/22 at 2044, If NOT able to eat and/or NPO and with IV Access: For Bedside Glucose 54-69 mg/dL - give 12.5 g Dextrose IV STAT For Bedside Glucose LESS than 54 mg/dl - verify with a second Bedside Glucose (from a different site) and give 25 g Dextrose IV STAT Re-check and Re-treat blood glucose EVERY - 10-25 minutes until blood glucose GREATER than or equal to 80 mg/dl. - If repeat bedside glucose 54- 79 give 12.5 g Dextrose IV STAT NOTIFY PROVIDER OF HYPOGLYCEMIC EVENT. documented in this encounter
--- OUTSIDE RECORDS SUMMARY | 2024-04-09 05:14 | XMS_ITS | Encounter Summary ---
Author Organization [facility] Address [address] [place] [address] Care Team Providers Care Hammerer Helper Name Role Phone Unavailable Primary Care Provider Unavailabl e Reason for Visit * Reason Comments Transitional Care Encounter Details Date Type Department Care Team (Late st Contact Info) Description 10/27/2022 Transitional Care Transitional Care at [address] [id number] Isabel Marc RNmobile development manager Social History Tobacco Use Types Packs/Day Years [...] Yes 10/24/2022 documented as of this encounter Miscellaneous Notes * Telephone Encounter - Isabel Marc RN - 10/27/2022 12:26 PM CDT RN 48 hour post discharge follow-up contact by telephone: Patient with recent IP discharge from [facility] on 10/24/22. This RN contacted Maria Al by telephone ([phone]) to complete 48 hour post-discharge follow-up contact for [facility] appointment. 1) How are you feeling? Patient states she is feeling about the same, last BS 384 2) How is your mobility? Patient states she is taking it slow 3) New concerns or problems? No 4) Have you had to go the ER for any reason? No 5) Any questions about your discharge diagnosis and instructions? No 6) Do you have a follow up appointment made? Confirmed [facility] appt on [facility] for 10/28/22 @ 1430. Instructed on location, parking and to bring current medications and BS log. 7) Do you currently have home health, any questions about home care? No 8) Have you filled all of your RX's? Yes, but no insulin was prescribed 9) Any questions or concerns that we can help you with? No Maria Long denied any questions related to diet, medications, or condition at this time. Patient was encouraged to call this remote mortgage underwriter with questions, concerns, barriers to care, and/or additional resources if needed. Patient verbalized understanding and agreement with plan. This RN will continue to provide post-discharge monitoring until patient completes [facility] clinic follow up. Call Duration: 5 min Isabel Marc RN, BSN Video Engineer, [facility] Office: [phone] 10/27/2022 documented in this encounter Plan of Treatment Not on file documented as of this encounter Visit Diagnoses Not on filedocumented in this encounter
--- OUTSIDE RECORDS SUMMARY | 2024-04-09 05:14 | XMS_ITS | Encounter Summary ---
Author Organization [facility] Address [address] [place] [address] Care Team Providers Care Bus Dispatcher [place] Name Role Phone Unavailable Primary Care Provider Unavailabl e Encounter Details Date Type Department Care Team (Latest Contact Info) Description 10/28/2022 Travel Social History Tobacco Use Types Packs/Day [...]
--- OUTSIDE RECORDS SUMMARY | 2024-04-09 05:16 | XMS_ITS | Encounter Summary ---
Author Organization [facility] Address Counts include 234 beds at the [facility] [place] [address] [place] [address] Care Team Providers Care Zinc Furnace Charger Name Role Phone Gerardo Bernstein Primary Care Provider + Reason for Visit * Auth/Cert Specialty Diagnoses / Procedures Referred By Devante rudolph Referred To Contact Diagnoses H25.11 Procedures RIGHT CATARACT REMOVAL WITH IOL IMPLANT Referral ID Status Reason Start Date Expiration Date Visits Re quested Visits Authorized [id number] 1 1 Encounter Details Date Type Department Care Team (Late st Contact Info) Description 02/20/2020 9:47 AM INNER LAYER SCRUBBER TENDER Anesthesia Event [facility] [address] [place] [address] Gale Marley, CONVEX GRINDER OPERATOR [address] [place] [address] Mio Aragon CRNA [address] [place] [address] Anesthesia Record Procedure Summary Procedure Name Responsible Anesthesiologist Anesthesia Start Time Anesthesia Stop Time RIGHT CATARACT REMOVAL WITH IOL IMPLANT (Right: Eye) Gale Marley CRNA 02/20/20 0947 02/20/20 1006 Events Date Time Event Comment 02/20/2020 0851 0851 AN CONVEX GRINDER OPERATOR Prepped 0947 An Start Patient ID and consent checked and patient reassessed. 0947 An Start Data 0950 Anesthesia Ready 1006 An Stop 1006 an stop data Meds Name Total midazolam 2 mg/2 mL injection 2 mg * Agents Name O2 * Blood No blood administrations on file. Lines, Drains, and Airways Type Details Placement Removal Peripheral IV Placement Date: 02/20/20; Placement Time: 906; Placed Outside of This Facility?: No; Size: 20 G; Orientation: Right; Location: Hand; Site Prep: Chlorhexidine; Local Anesthetic: None; Inserted By: Maria SLOAN; Insertion attempts: 1; Ultrasound-guided Placement?: No; Patient Tolerance: Tolerated well; Removal Date: 02/20/20; Removal Time: 10102/20/20906 by Maria Llanes RN 02/20/201016 by Jose Angel Melissa RN Surgical/Incision 02/20/20; 957; Surgical Wound; Eye; Right; SHIELD EYE ADULT (x1), TAPE PAPER 2 (x1); 02/20/20; 1230 02/20/20957 by Rossy Nickerson RN 02/20/20 123 by Automatic Discharge Provider documented in this encounter Social History Tobacco Use Types Packs/Day Years Used Date Smoking Tobacco: Light Smoker Smokeless Tobacco: Never Alcohol Use Standard Drinks/Week Comments Never 0 (1 standard drink = 0.6 oz pur e alcohol) AUDIT-C Answer Date Recorded Frequency of Alcohol Consumption Never 09/12/2019 Average Number of Drinks Not on file 020 Frequency of Binge Drinking Not on file 04/2019 Comments No Sex and Gender Information Value Date Recorded Sex Assigned at Not on file Legal Sex Female 3:12 PM CDT Gender Identity Not on file Sexual Orientation Not on file COVID-19 Exposure Response Date Recorded In the last month, have you been in contact with someone who was confirmed or suspected to have Coronavirus / COVID-19? No / Unsure 02/20/2020 8:30 AM INNER LAYER SCRUBBER TENDER documented as of this encounter OR Notes * Anesthesia Postprocedure Evaluation - Gale Marley CRNA - 02/20/2020 10:06 AM CST Anesthesia Post-op Note Maria Long Procedure(s): RIGHT CATARACT REMOVAL WITH IOL IMPLANT (Right Eye) Anesthesia type: MAC Vitals: 02/20/20845 BP: 120/56 Vitals: 02/20/20845 Pulse: 86 Vitals: 02/20/20845 Resp: 20 Vitals: 02/20/20845 Temp: 36 ??C Vitals: 02/20/20845 SpO2: 97% Patient Location: Phase II/Outpatient Level of Consciousness: awake Pain Management: adequate analgesia Airway Patency: patent Respiratory Status: acceptable Cardiovascular Status: acceptable Post-Op Nausea: none Postoperative Hydration: euvolemic Complications: no anesthesia complication R LAYER SCRUBBER TENDER * Anesthesia Preprocedure Evaluation - Veronica Joshua CRNA - 02/13/2020 11:12 AM CST Anesthesia ROS/MED History Reviewed: Patient summary , Nursing notes , ECG, Family history anesthesia, Anesthesia history , Medications Pre-Anesthetic State: alert, awake and responds appropriately Pulmonary neg pulmonary ROS Cardiovascular Exercise tolerance:good (+) hyperlipidemia ROS comment: SINUS RHYTHM LOW QRS VOLTAGE IN PRECORDIAL LEADS (QRS DEFLECTION < 1.0 mV IN CHEST LEADS) POSSIBLE ANTERIOR MYOCARDIAL INFARCTION , PROBABLY OLD (30 ms Q WAVE IN V3/V4, OR R < 0.2 mV IN V4) INFERIOR MYOCARDIAL INFARCTION , PROBABLY OLD (40+ ms Q WAVE AND/OR ST/T ABNORMALITY IN II/aVF) No previous ECG available for comparison Neuro/Psych (+) CVA GI/Hepatic/Renal neg GI/hepatic/renal ROS Endo/Other (+) diabetes mellitus Physical Evaluation Airway Mallampati: III TM Distance: >3 FB Neck ROM: normal Dental No notable dental history Pulmonary Breath sounds clear to auscultation Cardiovascular Rhythm: regular Rate: normal Anesthesia Plan ASA 3 Intravenous Induction Anesthesia type: MAC Informed Consent Anesthetic plan and risks discussed with patient of whom consent was obtained. Consent of blood products not discussed. . Cosigned by Frankie Reich MD at 02/20/2020 9:25 AM INNER LAYER SCRUBBER TENDER R LAYER SCRUBBER TENDER R LAYER SCRUBBER TENDER R LAYER SCRUBBER TENDER R LAYER SCRUBBER TENDER Associated attestation - Frankie Reich MD - 02/20/2020 9:25 AM INNER LAYER SCRUBBER TENDER I am certifying my agreement with the anesthesia plan of care and will be supervising the administration of anesthesia. documented in this encounter Plan of Treatment Not on file documented as of this encounter Visit Diagnoses Not on filedocumented in this encounter Administered Medications Inactive Administered Medications - up to 3 most recent administrations Medication Order MAR Action Action Date Dose Rate Site midazolam (VERSED) injection Intravenous, PRN, Starting on Thu02/20/20 at 0950, Until Thu02/20/20 at 1006, Anesthesia Intra-Op Given 02/20/2020 9:50 AM INNER LAYER SCRUBBER TENDER 2 mg documented in this encounter Care Teams Zinc Furnace Charger Relationship Specialty Start Date End Date Gerardo Bernstein PA PCP - General PHYSICIAN AGRICULTURE INSPECTOR 09/14/19 documented as of this encounter
--- OUTSIDE RECORDS SUMMARY | 2024-04-09 05:16 | XMS_ITS | Encounter Summary ---
Author Organization [facility] Address [address] [place] [address]. [place], [place] [address] [place] [address] Care Team Providers Care Merchandise Flow Team Member Name Role Phone Gerardo Bernstein Primary Care Provider + Encounter Details Date Type Department Care Team (Latest Contact Info) Description 02/20/2020 Travel Social History Tobacco Use Types Packs/Day [...] COVID-19? No / Unsure 02/20/2020 8:30 AM RESEARCH PROFESSOR OF BIOSTATISTICS documented as of this encounter Plan of Treatment Not on file documented as of this encounter Visit Diagnoses Not on filedocumented in this encounter Care Teams Merchandise Flow Team Member Relationship Specialty Start Date End Date Gerardo Bernstein PA PCP - General PHYSICIAN FUNERAL PREARRANGEMENT COUNSELOR 09/14/19 documented as of this encounter
--- OUTSIDE RECORDS SUMMARY | 2024-04-09 05:16 | XMS_ITS | Encounter Summary ---
Author Organization [facility] Address [address] [place] [address]. [place], [place] [address] [place] [address] Care Team Providers Care Swing Manager Name Role Phone Gerardo Bernstein Primary Care Provider + Encounter Details Date Type Department Care Team (Latest Contact Info) Description 02/17/2020 Travel Social History Tobacco Use Types Packs/Day [...] have Coronavirus / COVID-19? No / Unsure 02/17/2020 10:32 AM FIBERGLASS DOWEL DRAWING OPERATOR documented as of this encounter Plan of Treatment Not on file documented as of this encounter Visit Diagnoses Not on filedocumented in this encounter Additional Health Concerns Infection Onset Date Last Indicated Resolved Time COVID-19 Rule Out 02/17/2020 02/17/2020 02/19/2020 2:16 AM FIBERGLASS DOWEL DRAWING OPERATOR documented as of this encounter Care Teams Swing Manager Relationship Specialty Start Date End Date Gerardo Bernstein PA PCP - General PHYSICIAN SOFTWARE ASSET MANAGEMENT ANALYST 09/14/19 documented as of this encounter
--- OUTSIDE RECORDS SUMMARY | 2024-04-09 05:16 | XMS_ITS | Encounter Summary ---
Author Organization [facility] Address [address] [place] [address]. [place] [address] [place] [address] Care Team Providers Care Flexographic Press Helper Name Role Phone Gerardo Bernstein Primary Care Provider + Encounter Details Date Type Department Care Team (Latest Contact Info) Description 02/17/2020 10:33 AM HOSPITAL ACCOUNT MANAGER - 02/17/2020 11:59 PM HOSPITAL ACCOUNT MANAGER Hospital Encounter [facility] [address] [place] [address] Frankie Reich MD [address] [facility] [address] [place] [address] Discharge Disposition: Home or Self Care (Routine Discharge) Social History Tobacco Use Types Packs/Day Years [...] COVID-19? No / Unsure 02/17/2020 10:32 AM HOSPITAL ACCOUNT MANAGER documented as of this encounter Medications at Time of Discharge aspirin EC (ASPIRIN EC) 81 MG tablet Take 81 mg by mouth daily. atorvastatin 40 MG tablet Take 40 mg by mouth nightly at bedtime. empagliflozin (JARDIANCE) 25 MG tablet Take 25 mg by mouth daily. glimepiride 2 MG tablet Take 2 mg by mouth every morning before breakfast. JANUVIA 100 MG tablet Take 100 mg by mouth daily. 09/15/2019 metFORMIN 500 MG tabletIndications :1 in am and 2 in pm Take 500 mg by mouth 2 (two) times daily with meals. Indications: 1 in am and 2 in pm pioglitazone 45 MG tablet Take 45 mg by mouth. 09/15/2019 documented as of this encounter Plan of Treatment Not on file documented as of this encounter Procedures Procedure Name Priority Date/Time Associated Diagnosis Comments CORONAVIRUS (COVID 19) Routine 02/17/2020 10:35 AM HOSPITAL ACCOUNT MANAGER Preop testing documented in this encounter Results * PRE-SURGICAL/PRE-PROCEDURE CORONAVIRUS (COVID 19) (02/17/2020 10:35 AM HOSPITAL ACCOUNT MANAGER) CORONAVIRUS SARS COV 2 PCR (RESP) NOT DETECTED NOT DETECTED 02/19/2020 2:15 AM HOSPITAL ACCOUNT MANAGER [facility] Comment: A Not Detected (negative) test result for this test means that SARS- CoV-2 RNA was not present in the specimen above the limit of detection. A negative result does not rule out the possibility of COVID-19 and should not be used as the sole basis for treatment or patient management decisions. ??If COVID-19 is still suspected, based on exposure history together with other clinical findings, re-testing should be considered in consultation with public health authorities. Laboratory test results should always be considered in the context of clinical observations and epidemiological data in making a final diagnosis and patient management decisions. Please review the Fact Sheets and FDA authorized labeling available for health care providers and patients using the following websites: https://www.Techoz.Elementum/home/Covid-19/HCP/NAAT/fact-sheet2 https://www.Techo[employer].Elementum/home/Covid-19/Patients/NAAT/ fact-sheet2 This test has been authorized by the FDA under an Emergency Use Authorization (EUA) for use by authorized laboratories. Due to the current public health emergency, [facility] is receiving a high volume of samples from a wide variety of swabs and media for COVID-19 testing. In order to serve patients during this public health crisis, samples from appropriate clinical sources are being tested. Negative test results derived from specimens received in non-commercially manufactured viral collection and transport media, or in media and sample collection kits not yet authorized by FDA for COVID-19 testing should be cautiously evaluated and the patient potentially subjected to extra precautions such as additional clinical monitoring, including collection of an additional specimen. Methodology: ??Nucleic Acid Amplification Test (NAAT) includes RT-PCR or TMA Additional information about COVID-19 can be found at the [facility] website: www.MyOutdoorTV.com.[employer]um/Covid19. Test performed at [facility] [address] [place] [address] ??[phone] Director: STEVE ZURITA DO,MPH FIRST TEST NO 02/17/2020 10:33 AM [facility] EMPLOYED IN HEALTHCARE NO 02/17/2020 10:33 AM [facility] SYMPTOMATIC DEFINED BY CDC NO 02/17/2020 10:33 AM [facility] DATE OF SYMPTOM ONSET UNKNOWN 02/17/2020 10:49 AM [facility] HOSPITALIZATION STATUS NO 02/17/2020 10:33 AM [facility] PATIENT IN ICU NO 02/17/2020 10:33 AM [facility] RESIDENT OF [facility] NO 02/17/2020 10:33 AM [facility] UNKNOWN 02/17/2020 10:49 AM [facility] PATIENT'S RACE WHITE OR 02/17/2020 10:33 AM [facility] ETHNICITY NONHISPANIC 02/17/2020 10:33 AM [facility] SOURCE (QST) NASOPHARYNGEAL SWAB 02/17/2020 10:33 AM [facility] NASOPHARYNGEAL SWAB / Unknown 02/17/2020 10:35 AM HOSPITAL ACCOUNT MANAGER us Frankie Reich MD MICROBIOLOGY - GENERAL ORDERAB LES Final Result [facility] [address] [place] [address], [place] [phone] [facility] [address] [place] [address], documented in this encounter Visit Diagnoses Diagnosis Preop testing Preoperative examination, unspecified documented in this encounter Additional Health Concerns Infection Onset Date Last Indicated Resolved Time COVID-19 Rule Out 02/17/2020 02/17/2020 02/19/2020 2:16 AM HOSPITAL ACCOUNT MANAGER documented as of this encounter Care Teams Flexographic Press Helper Relationship Specialty Start Date End Date Gerardo Bernstein PA PCP - General PHYSICIAN PREDATORY GAME HUNTER 09/14/19 documented as of this encounter
--- OUTSIDE RECORDS SUMMARY | 2024-04-09 05:16 | XMS_ITS | Encounter Summary ---
Author Organization [facility] Address [address] [place] [address]. [place] [address] [place] [address] Care Team Providers Care Tare Worker Name Role Phone Gerardo Bernstein Primary Care Provider + Encounter Details Date Type Department Care Team (Latest Contact Info) Description 01/20/2020 7:00 AM CDT - 01/20/2020 10:40 AM CDT Hospital Encounter [facility] [address] [place] [address] Frankie Reich MD [address] [facility] [address] [place] [phone] Discharge Disposition: Home or Self Care [...] Binge Drinking Not on file 04/2019 Comments Unknown Sex and Gender Information Value Date Recorded Sex Assigned at Not on file Legal Sex Female 3:12 PM CDT Gender Identity Not on file Sexual Orientation Not on file COVID-19 Exposure Response Date Recorded In the last month, have you been in contact with someone who was confirmed or suspected to have Coronavirus / COVID-19? No / Unsure 01/20/2020 10:37 AM CDT documented as of this encounter Medications at [...] Associated Diagnosis Comments CORONAVIRUS (COVID 19) Routine 01/20/2020 10:39 AM CDT Preop testing documented in this encounter Results * PRE-SURGICAL/PRE-PROCEDURE CORONAVIRUS (COVID 19) (01/20/2020 10:39 AM CDT) CORONAVIRUS SARS COV 2 PCR (RESP) NOT DETECTED NOT DETECTED 01/21/2020 7:59 PM CDT [facility] Comment: A Not Detected (negative) test result [...] providers and patients using the following websites: https://www.Spruce Media.Eltechs/home/Covid-19/HCP/NAAT/fact-sheet2 https://www.Spruce Media.Eltechs/home/Covid-19/Patients/NAAT/ fact-sheet2 This test has been authorized by the FDA under an Emergency Use Authorization (EUA) for use by authorized laboratories. Due to the current public health emergency, [facility] is receiving a high volume of samples [...] about COVID-19 can be found at the [facility] website: www.[employer]/Covid19. Test performed at [facility] [address] ??[phone] Director: STEVE ZURITA DO,MPH FIRST TEST YES 01/20/2020 10:37 AM CDT [facility] EMPLOYED IN HEALTHCARE UNKNOWN 01/20/2020 10:37 AM CDT [facility] SYMPTOMATIC DEFINED BY CDC NO 01/20/2020 10:37 AM CDT [facility] HOSPITALIZATION STATUS NO 01/20/2020 10:37 AM CDT [facility] PATIENT IN ICU NO 01/20/2020 10:37 AM CDT [facility] RESIDENT OF [facility] UNKNOWN 01/20/2020 10:37 AM CDT [facility] NO 01/20/2020 11:47 AM CDT [facility] PATIENT'S RACE WHITE OR 01/20/2020 10:37 AM CDT [facility] ETHNICITY NONHISPANIC 01/20/2020 10:37 AM CDT [facility] SOURCE (QST) NASOPHARYNGEAL SWAB 01/20/2020 10:37 AM CDT [facility] NASOPHARYNGEAL SWAB / Unknown 01/20/2020 10:39 AM CDT Frankie Reich MD MICROBIOLOGY - GENERAL ORDERAB LES Final Result [facility] [address] [place] [address], [place] [phone] [facility] [address] [place] [address], documented in this encounter Visit Diagnoses Diagnosis Preop testing Preoperative examination, unspecified documented in this encounter Additional Health Concerns Infection Onset Date Last Indicated Resolved Time COVID-19 Rule Out 01/20/2020 01/20/2020 01/21/2020 8:00 PM CDT documented as of this encounter Care Teams Tare Worker Relationship Specialty Start Date End Date Gerardo Bernstein PA PCP - General PHYSICIAN CONTINUOUS IMPROVEMENT INTERN 09/14/19 documented as of this encounter
--- OUTSIDE RECORDS SUMMARY | 2024-04-09 05:16 | XMS_ITS | Encounter Summary ---
Author Organization [facility] Address [address] [place] [address]. [place] [address] [place] [address] Care Team Providers Care Decorative Greens Cutter Name Role Phone Gerardo Bernstein Primary Care Provider + Reason for Visit * Auth/Cert Specialty Diagnoses / Procedures Referred By Devante rudolph Referred To Contact Diagnoses H25.12 Procedures LEFT CATARACT REMOVAL WITH IOL IMPLANT Referral ID Status Reason Start Date Expiration Date Visits Re quested Visits Authorized [id number] 1 1 Encounter Details Date Type Department Care Team (Latest Contact Info) Description 01/23/2020 6:55 AM CDT - 01/23/2020 9:35 AM CDT Hospital Encounter [facility] [address] [place] [address] Frankie Lepe MD [address] [facility] [address] [place] [phone] Discharge Disposition: Home [...] have Coronavirus / COVID-19? No / Unsure 01/23/2020 6:55 AM CDT documented as of this encounter Last Filed Vital Signs Vital Sign Reading Time Taken Comments Blood Pressure 121/48 01/23/2020 9:15 AM CDT Pulse 81 01/23/2020 9:15 AM CDT Temperature 37.1 ??C (98.8 ??F) 01/23/2020 7:14 AM CD T Respiratory Rate 16 01/23/2020 9:15 AM CDT Oxygen Saturation 98% 01/23/2020 9:15 AM CDT Inhaled Oxygen Concentration - - Weight 97.5 kg (215 lb) 01/23/2020 7:14 AM CDT Height 175.3 cm (5' 9 ) 01/23/2020 7:14 AM CDT Body Mass Index 31.75 01/23/2020 7:14 AM CDT documented in this encounter Discharge Instructions * Discharge Instructions* Jose Angel Melissa RN - 01/23/2020 9:19 AM CDT [facility] POST-OP INSTRUCTIONS FOLLOWING CATARACT SURGERY 1. You will be sent home from surgery with a patch over your eye. DO NOT REMOVE THE PATCH FOR ANY REASON. Dr. Lepe will remove the patch at your 1st Post-Op (The day of surgery or the next day) and instruct you on how to use your eye drops. 2. SLEEP ON YOUR BACK OR EITHER SIDE. The night after surgery DO NOT SLEEP FACE DOWN . 3. DO NOT RUB OR PRESS ON YOUR EYE. Blot underneath or at the corner of your eye. 4. PROTECT YOUR EYE WHEN YOU NAP DURING THE DAY OR SLEEP AT NIGHT FOR 10 DAYS FOLLOWING SURGERY. Use the clear plastic shield (found in your surgery kit). Place the shield over the eye with paper tape across it to hold the shield in place. 5. LIMIT BENDING MUCH POSSIBLE AND KEEP HEAD FROM A DEPENDENT POSITION. Instead, bend your knees. You may want to hold onto a chair etc. To help keep your balance. 6. DO NOT LIFT ANYTHING OVER 20 POUNDS FOR 2 WEEKS. 7. DO NOT DO ANY STRENUOUS WORK OR EXERCISE FOR 2 WEEKS. For example: Where you strain or break a sweat. 8. DO NOT GET SOAP IN YOUR EYES. When you shower and shampoo. 9. DO NOT WEAR EYE MAKEUP OR USE CREAMS OR LOTIONS around your eyes for 2 weeks. 10. YOU MAY DRIVE WHEN YOUR VISION PERMITS. Ask you doctor. You must have a cpr ambulance driver for the day of surgery and your 1st post op exam. 11. ALWAYS WERE SUNGLASSES WHEN YOU GO OUTSIDE. These are found in your surgery kit. Dr. Lepe OFFICE [phone] AFTER HOURS EMERGENCY [phone] * Attachments The following attachments cannot be sent through Care Everywhere. * Cataracts Discharge Instructions (Lebanese) documented in this encounter Medications at Time [...] mouth. 09/15/2019 documented as of this encounter OR Notes * Op Note - Frankie Lepe MD - 01/23/2020 8:37 AM CDT Date: 01/23/2020 Patient Name: Maria ParkinsonO.B.: 1960 Surgeon: FRANKIE LEPE M.D. Preoperative Diagnosis: Cataract Left Postoperative Diagnosis: Cataract Left Name of Operation: Cataract Extraction (by Phacoemulsification) and Intraocular Lens Implant Anesthesia: Topical Specimen: None Description of Procedure: The eye was anesthetized with topical 0.75% bupivacaine. After intravenous sedation and placement of monitors, the patient was prepped and draped in the usual sterile manner. A lid speculum was placed. A paracentesis was made, and preservative free 1% lidocaine was instilled in the anterior chamber. The anterior chamber was then filled with Viscoat viscoelastic. A filomena keratome was used to create the wound. Continuous tear anterior capsulotomy was performed. The lens was hydro dissected before being removed with phacoemulsification. The remaining lenticular cortexwas removed with aspiration. The capsular bag was polished and filled with viscoelastic material. An intraocular lens was chosen, inspected, irrigated and placed within the capsular bag where it was seen to be centered and stable. The viscoelastic material was aspirated. The wound was closed and found to be watertight. Betadine and antibiotic drops were placed in the eye. The speculum was removed. A Underwood shield was applied. The patient tolerated the procedure well and left the operating room in satisfactory condition. Frankie Lepe MD documented in this encounter Plan of Treatment Not on file documented as of this encounter Procedures Procedure Name Priority Date/Time Associated Diagnosis Comments CATARACT REMOVAL WITH IOL IMPLANT 01/23/2020 8:39 AM CDT H25.12 Special Needs 0900 per [id number] per office POCT GLUCOSE - CHRISTY DOCKED DEVICE Routine 01/23/2020 7:25 AM CDT documented in this encounter Results * POCT glucose (01/23/2020 7:25 AM CDT) GLUCOSE POC 103 70 - 110 mg/dL 01/23/2020 7:42 AM CDT [facility] 01/23/2020 7:25 AM CDT us Frankie Lepe MD POCT ORDERABLES - DEVICE Final Result [facility] [address] [place] [address], [place] [phone] documented in this encounter Visit Diagnoses Not on filedocumented in this encounter Administered Medications Inactive Administered Medications - up to 3 most recent administrations Medication Order MAR Action Action Date Dose Rate Site besifloxacin (BESIVANCE) 0.6 % ophthalmic suspension 1 drop 1 drop, Left Eye, Every 5 min, 3 doses, First dose on Thu01/23/20 at 0745, Last dose on Thu01/23/20 at 0755, Instill to operative eye, Pre-Op Given 01/23/2020 7:46 AM CDT 1 drop Given 01/23/2020 7:41 AM CDT 1 drop Given 01/23/2020 7:35 AM CDT 1 drop BUpivacaine (PF) (MARCAINE) 0.5 % injection 0.1 mL 0.1 mL, Left Eye, Every 5 min, 3 doses, First dose on Thu01/23/20 at 0745, Last dose on Thu01/23/20 at 0755, Instill to operative eye, Pre-Op Given 01/23/2020 7:46 AM CDT 10 mLs Given 01/23/2020 7:41 AM CDT 10 mLs Given 01/23/2020 7:35 AM CDT 10 mLs flurbiprofen (OCUFEN) 0.03 % ophthalmic solution 1 drop 1 drop, Left Eye, Every 5 min, 3 doses, First dose on Thu01/23/20 at 0745, Last dose on Thu01/23/20 at 0755, Instill to operative eye, Pre-Op Given 01/23/2020 7:46 AM CDT 1 drop Given 01/23/2020 7:41 AM CDT 1 drop Given 01/23/2020 7:35 AM CDT 1 drop methazolAMIDE (NEPTAZANE) tablet 50 mg 50 mg, Oral, Once, 1 dose, On Thu01/23/20 at 0945, If NOT allergic to Sulfa, Post-Op Given 01/23/2020 9:31 AM CDT 50 m g phenylephrine (MYDFRIN) 2.5 % ophthalmic solution 1 drop 1 drop, Left Eye, Every 5 min, 3 doses, First dose on Thu01/23/20 at 0745, Last dose on Thu01/23/20 at 0755, Instill to operative eye, Pre-Op Given 01/23/2020 7:46 AM CDT 1 drop Given 01/23/2020 7:41 AM CDT 1 drop Given 01/23/2020 7:35 AM CDT 1 drop tropicamide (MYDRIACYL) 1 % ophthalmic solution 1 drop 1 drop, Left Eye, Every 5 min, 2 doses, First dose on Thu01/23/20 at 0745, Last dose on Thu01/23/20 at 0750, Instill to operative eye, Pre-Op Given 01/23/2020 7:41 AM CDT 1 drop Given 01/23/2020 7:35 AM CDT 1 drop documented in this encounter Active and Recently Administered Medications Times are shown in CDT. Scheduled Medication Order 01/21/2020 01/22/2020 01/23/2020 besifloxacin (BESIVANCE) 0.6 % ophthalmic suspension 1 drop (COMPLETED) 1 drop, Left Eye, Every 5 min, 3 doses, First dose on 01/23/20 at 0745, Last dose on Thu01/23/20 at 0755, Instill to operative eye, Pre-Op 0735 (Given - Provid er: Maria Llanes RN)0741 (Given - Provider: Maria Llanes RN)0746 (Given - Provider: Maria Llanes RN) BUpivacaine (PF) (MARCAINE) 0.5 % injection 0.1 mL (COMPLETED) 0.1 mL, Left Eye, Every 5 min, 3 doses, First dose on Thu01/23/20 at 0745, Last dose on Thu01/23/20 at 0755, Instill to operative eye, Pre-Op 0735 (Given - Provid er: Maria Llanes RN)0741 (Given - Provider: Maria Llanes RN)0746 (Given - Provider: Maria Llanes RN) flurbiprofen (OCUFEN) 0.03 % ophthalmic solution 1 drop (COMPLETED) 1 drop, Left Eye, Every 5 min, 3 doses, First dose on Thu01/23/20 at 0745, Last dose on Thu01/23/20 at 0755, Instill to operative eye, Pre-Op 0735 (Given - Provid er: aMria Llanes RN)0741 (Given - Provider: Maria Llanes RN)0746 (Given - Provider: Maria Llanes RN) methazolAMIDE (NEPTAZANE) tablet 50 mg (COMPLETED) 50 mg, Oral, Once, 1 dose, On Thu01/23/20 at 0945, If NOT allergic to Sulfa, Post-Op 0931 (Given - Provid er: Jose Angel Melissa RN) phenylephrine (MYDFRIN) 2.5 % ophthalmic solution 1 drop (COMPLETED) 1 drop, Left Eye, Every 5 min, 3 doses, First dose on Thu01/23/20 at 0745, Last dose on 10/12/20 at 0755, Instill to operative eye, Pre-Op 0735 (Given - Provid er: Maria Llanes RN)0741 (Given - Provider: Maria Llanes RN)0746 (Given - Provider: Maria Llanes RN) tropicamide (MYDRIACYL) 1 % ophthalmic solution 1 drop (COMPLETED) 1 drop, Left Eye, Every 5 min, 2 doses, First dose on Thu01/23/20 at 0745, Last dose on Thu01/23/20 at 0750, Instill to operative eye, Pre-Op 0735 (Given - Provid er: Maria Llanes RN)0741 (Given - Provider: Maria Llanes RN) PRN Medication Order 01/21/2020 01/22/2020 01/23/2020 apraclonidine (IOPIDINE) 0.5 % ophthalmic solution (CANCELED) As needed, Starting on 01/23/20 at 0851, Until Thu01/23/20 at 0908, Intra-Op 0851 (Given - Provid er: Frankie Lepe MD) EPINEPHrine 0.3 mg in balanced salts (BSS) irrigation solution (CANCELED) As needed, Starting on 01/23/20 at 0852, Until Thu01/23/20 at 0908, Intra-Op 0852 (Given - Provid er: Frankie Lepe MD) lidocaine (PF) (XYLOCAINE) 1 % injection (CANCELED) As needed, Starting on 01/23/20 at 0852, Until Thu01/23/20 at 0908, Intra-Op 0852 (Given - Provid er: Frankie Lepe MD) moxifloxacin (VIGAMOX) 0.5 % ophthalmic solution (CANCELED) As needed, Starting on 01/23/20 at 0852, Until 01/23/20 at 0908, Intra-Op 0852 (Given - Provid er: Frankie Lepe MD) povidone-iodine (BETADINE) 5 % ophthalmic solution (CANCELED) As needed, Starting on 01/23/20 at 0852, Until Thu01/23/20 at 0908, Intra-Op 0852 (Given - Provid er: Frankie Lepe MD) documented in this encounter Care Teams Decorative Greens Cutter Relationship Specialty Start Date End Date Gerardo Bernstein PA PCP - General PHYSICIAN DRY KILN OPERATOR 09/14/19 documented as of this encounter
--- OUTSIDE RECORDS SUMMARY | 2024-04-09 05:16 | XMS_ITS | Clinical Summary ---
Author Organization [facility] Address [facility] [facility] [place] [address] [place] [address] Care Team Providers Care Can Piler Name Role Phone Gerardo Bernstein Primary Care Provider + Allergies No known active allergies Medications JANUVIA 100 MG tablet Take 100 mg by mouth daily. 09/15/2019 Active pioglitazone 45 MG tablet Take 45 mg by mouth. 09/15/2019 Active metFORMIN 500 MG tabletIndicatio ns:1 in am and 2 in pm Take 500 mg by mouth 2 (two) times daily with meals. Indications: 1 in am and 2 in pm Active glimepiride 2 MG tablet Take 2 mg by mouth every morning before breakfast. Active aspirin EC (ASPIRIN EC) 81 MG tablet Take 81 mg by mouth daily. Active atorvastatin 40 MG tablet Take 40 mg by mouth nightly at bedtime. Active empagliflozin (JARDIANCE) 25 MG tablet Take 25 mg by mouth daily. Active Active Problems No known active problems Social History Tobacco Use Types Packs/Day Years [...] Sign Reading Time Taken Comments Blood Pressure 101/67 02/20/2020 10:15 AM CHAR BELT OPERATOR Pulse 80 02/20/2020 10:15 AM CHAR BELT OPERATOR Temperature 36 ??C (96.8 ??F) 02/20/2020 8:46 AM CHAR BELT OPERATOR Respiratory Rate 16 02/20/2020 10:15 AM CHAR BELT OPERATOR Oxygen Saturation 95% 02/20/2020 10:15 AM CHAR BELT OPERATOR Inhaled Oxygen Concentration - - Weight 97.5 kg (215 lb) 02/20/2020 8:46 AM CHAR BELT OPERATOR Height 172.7 cm (5' 8 ) 02/20/2020 8:46 AM CHAR BELT OPERATOR Body Mass Index 32.69 02/20/2020 8:46 AM CHAR BELT OPERATOR Plan of Treatment Health Maintenance Due Date Last Done Comments Cervical Cancer Screening Pa p Smear (Age 30 to 64) Every 3 Years 1960 Colorectal Cancer Screening Colonoscopy (10 Years) 1960 Annual Physical 07/06/1962 Pneumococcal Vaccine: Pediat rics (0 to 5 Years) and At-Risk Patients (6 to 64 Years) (1 of 2 - PCV) 07/06/1965 Hepatitis C 07/06/1977 DTaP, Tdap and Td Vaccines ( 1 - Tdap) 07/06/1978 Cervical Cancer Screening Pa p with HPV Testing (Age 30 to 64) Every 5 Years 07/06/1989 Cervical Cancer Screening with HPV 07/06/1989 Mammogram Screening 1999 Zoster Vaccines (1 of 2) 07/06/2009 COVID-19 Vaccine (2023-2 5 season) 2023 Influenza Adult (#1) 2024 RSV Immunization or 60+ Years (1 - 1-dose 75+ series) 07/06/2034 Meningococcal Vaccine Aged Out No orly cecile eligible based on patient's age to complete this topic RSV Immunizations Under 20 Months Aged Out No longer eligible based on patient's age to complete this topic Medical Devices Implanted Type Area Manager Of Care Device Identifier Shelf Expiration Date Model / Serial / Lot Iol [employer] Zcboo - [id number] Implanted:Qty: 1 on 01/23/2020 by Frankie Reich MD at [facility] Lens Left: Eye [employer] 01/21/2021 ZCB00 / [id number] / Iol [employer] Zcboo - [id number] Implanted:Qty: 1 on 02/20/2020 by Frankie Reich MD at [facility] Lens [employer] 11/03/2021 ZCB00 / [id number] / [facility] Care Teams Can Piler Relationship Specialty Start Date End Date Gerardo Bernstein PA PCP - General PHYSICIAN SUPERVISOR TANK HOUSE 09/14/19
--- OUTSIDE RECORDS SUMMARY | 2024-04-09 05:16 | XMS_ITS | Encounter Summary ---
Author Organization [facility] Address [address] [place] [address]. [place] [address] [place] [address] Care Team Providers Care Hand Outside Cutter Name Role Phone Gerardo Bernstein Primary Care Provider + Encounter Details Date Type Department Care Team (Late st Contact Info) Description 09/12/2019 Prep for Procedure [facility] [address] [place] [address] Frankie Reich MD [address] [facility] [address] [place] [address] Social History Tobacco Use Types Packs/Day Years [...] on file documented as of this encounter Plan of Treatment Not on file documented as of this encounter Visit Diagnoses Diagnosis Pre-op testing- Primary Preoperative examination, unspecified documented in this encounter Additional Health Concerns Infection Onset Date Last Indicated Resolved Time COVID-19 Rule Out 01/20/2020 01/20/2020 01/21/2020 8:00 PM CDT COVID-19 Rule Out 02/17/2020 02/17/2020 02/19/2020 2:16 AM CRUSHER FOREMAN documented as of this encounter Care Teams Hand Outside Cutter Relationship Specialty Start Date End Date Gerardo Bernstein PA PCP - General PHYSICIAN CONTACT REPRESENTATIVE 09/14/19 documented as of this encounter
--- OUTSIDE RECORDS SUMMARY | 2024-04-09 05:16 | XMS_ITS | Encounter Summary ---
Author Organization [facility] Address [address] [place] [address]. [place] [address] [place] [address] Care Team Providers Care Land Lease Information Clerk Name Role Phone Gerardo Bernstein Primary Care Provider + Encounter Details Date Type Department Care Team (Late st Contact Info) Description 01/20/[address] [facility] [address] [place] [address] Gerardo Bernstein PA [address] [place] [address] [place] [address] Social History Tobacco Use Types Packs/Day Years [...] COVID-19? No / Unsure 02/20/2020 8:30 AM INTERVENTIONAL NEURORADIOLOGIST documented as of this encounter Plan of Treatment Not on file documented as of this encounter Results * LIPID PANEL (01/20/2020 10:58 AM CDT) CHOLESTEROL 111 <200.0 MG/DL 01/20/2020 11:53 AM [facility] TRIGLYCERIDES 121 <150 MG/DL 01/20/2020 11:53 AM [facility] HDL 41 >40.0 MG/DL 01/20/2020 11:53 AM [facility] LDL (CALCULATED) 46 <100 MG/DL 01/20/20 20 11:53 AM [facility] NON HDL CHOLESTEROL 70 <130 MG/DL 01/19 11:53 AM [facility] CHOL/HDL RATIO 2.7 0.0 - 4.5 01/20/2020 11:53 AM [facility] VLDL CALCULATION 24 5 - 55 MG/DL 01/20/2020 11:53 AM [facility] LIPID INTERPRETATION 01/20/2020 11:53 AM [facility] Comment: [facility] REPORT RECOMMENDATIONS: ?ADULT ?CHILD ??LOW RISK: ?CHOLESTEROL ? <200 ? <170 ?TRIGLYCERIDE ?<150 ?--- ?HDL ? >=60 ?--- ?LDL ? <100 ? <110 ??BORDERLINE: ?CHOLESTEROL ? 200-239 ?? 170-199 ?TRIGLYCERIDE ?150-199 ? --- ?HDL ?40-59 ?--- ?LDL ? 100-159 ?? 110-129 ??HIGH RISK: ?CHOLESTEROL ? >=240 ?>=200 ?TRIGLYCERIDE ?>=200 ? --- ?HDL ?<40 ?--- ?LDL ? >=160 ?>=130 01/20/2020 10:5 8 AM CDT Gerardo LEE LABORATORY Final Re sult Performing Organization Address [facility] de Phone Number [facility] [address] [place] [address], * THYROXINE, FREE (FT4) (01/20/2020 10:58 AM CDT) FREE T4 1.07 0.76 - 1.46 NG/DL 01/20/2020 11:53 AM CDT [facility] 01/20/2020 10:5 8 AM CDT Gerardo LEE LABORATORY Final Re sult Performing Organization Address [facility] de Phone Number [facility] [address] [place] [address], * THYROID STIM HORMONE, TSH (01/20/2020 10:58 AM CDT) TSH 2.120 0.358 - 3.74 uIU/ML 01/20/2020 11:53 AM CDT [facility] Comment: HIGH DOSES OF BIOTIN MAY INTERFERE WITH THIS TEST RESULT. CORRELATION TO CLINICAL HISTORY AND PRESENTATION RECOMMENDED. 01/20/2020 10:5 8 AM CDT Gerardo LEE LABORATORY Final Re sult Performing Organization Address City/[facility]/ZIP Co de Phone Number [facility] [address] [place] [address], [place] [phone] * (ABNORMAL) PARTIAL THROMBOPLASTIN TIME,PTT (01/20/2020 10:58 AM CDT) PTT 38.2(H) 27.0 - 36.8 SEC 01/20/2020 11:38 AM CDT [facility] 01/20/2020 10:5 8 AM CDT Gerardo LEE LABORATORY Final Re sult Performing Organization Address [facility] Co de Phone Number [facility] [address] [place] [address], [place] [phone] * PROTIME/INR, VENOUS (01/20/2020 10:58 AM CDT) PROTIME 11.4 9.1 - 12.4 SEC 01/20/2020 11:38 AM CDT [facility] INR 0.9 01/20/2020 11:38 AM CDT [facility] Comment: Recommend INR ranges for Oral Anticoagulant Therapy: Mechanical Cardiac Values 2.5-3.5 All others indication 2.0-3.0 01/20/2020 10:5 8 AM CDT Gerardo LEE LABORATORY Final Re sult Performing Organization Address [facility] Co de Phone Number [facility] [address] [place] [address], [place] [phone] * (ABNORMAL) COMPREHENSIVE METABOLIC PANEL (01/20/2020 10:58 AM CDT) [facility] Signature GLUCOSE 156(H) 70 - 99 MG/DL 01/20/2020 11:53 AM T [facility] BUN 21(H) 7 - 18 MG/DL 01/20/2020 11:53 AM T [facility] CREATININE S/P/B 1.12(H) 0.55 - 1.02 MG/DL 01/20/2020 11:53 AM T [facility] SODIUM S/P/B 140 136 - 145 MMOL/L 01/20/2020 11:53 AM T [facility] POTASSIUM S/P/B 4.1 3.5 - 5.1 MMOL/L 01/20/2020 11:53 AM T [facility] CHLORIDE S/P/B 103 100 - 108 MMOL/L 01/20/2020 11:53 AM [facility] CO2 28.0 21 - 32 MMOL/L 01/20/2020 11:53 AM T [facility] CALCIUM S/P/B 9.5 8.5 - 10.1 MG/DL 01/20/2020 11:53 AM T [facility] BILIRUBIN TOTAL S/P/B 0.3 0.2 - 1.2 MG/DL 01/20/2020 11:53 AM [facility] TOTAL PROTEIN S/P/B 7.9 6.4 - 8.2 G/DL 01/20/2020 11:53 AM T [facility] ALBUMIN S/P/B 3.4 3.4 - 5.0 G/DL 01/20/2020 11:53 AM T [facility] AST 11(L) 15 - 37 U/L 01/20/2020 11:53 AM T [facility] ALT 21 14 - 55 U/L 01/20/2020 11:53 AM CDT [facility] ALKALINE PHOSPHATASE S/P/B 65 50 - 136 U/L 01/20/2020 11:53 AM CDT [facility] ANION GAP 9.0 5 - 15 MMOL/L 01/20/2020 11:53 AM CDT [facility] BUN CREATININE RATIO 18.8 6 - 26 01/20/2020 11:53 AM T [facility] A/G RATIO 0.8(L) 1.0 - 2.0 RATIO 01/20/2020 11:53 AM CDT [facility] EGFR NON-AFR. AMER. 53(L) >90 ML/MIN/1.7 3 M2 01/20/2020 11:53 AM CDT [facility] EGFR AFR. AMER. 62(L) >90 ML/MIN/1.7 3 M2 01/20/2020 11:53 AM T [facility] Comment: NOTE: eGFR is not calculated for patients <18 years of age. This is an estimated GFR (CKD EPI) and should not be used for calculating drug doses. 01/20/2020 10:5 8 AM CDT Gerardo LEE LABORATORY Final Re sult [facility] [address] [place] [phone], * (ABNORMAL) CBC W/DIFF AUTOMATED (01/20/2020 10:58 AM CDT) WBC 9.7 4.4 - 11.0 x10'3/uL 01/20/2020 11:26 AM CDT [facility] RBC 4.47(L) 4.50 - 5.10 x10'6/uL 01/20/2020 11:26 AM CDT [facility] HGB 13.5 12.3 - 15.3 G/DL 01/20/2020 11:26 AM [facility] HCT 42.5 35.9 - 44.6 % 01/20/2020 11:26 AM [facility] MCV 95.1 80.0 - 96.0 FL 01/20/2020 11:26 AM [facility] MCH 30.2 25.3 - 30.9 PG 01/20/2020 11:26 AM [facility] MCHC 31.8 31.0 - 34.1 G/DL 01/20/2020 11:26 AM [facility] RDW 12.9 12.4 - 15.1 % 01/20/2020 11:26 AM [facility] PLT 276 151 - 353 x10'3/uL 01/20/2020 11:26 AM [facility] MPV 9.7 9.6 - 12.0 FL 01/20/2020 11:26 AM [facility] RBC MORPHOLOGY NORMAL 01/20/2020 11:26 AM [facility] PLT MORPH. NORMAL 01/20/2020 11:26 AM [facility] WBC MORPHOLOGY NORMAL 01/20/2020 11:26 AM [facility] LYMPHOCYTES % 25.5 15.8 - 45.0 % 01/20/2020 11:26 AM [facility] NEUTROPHILS % 62.6 42.1 - 71.9 % 01/20/2020 11:26 AM [facility] MONOCYTES % 5.8 5.7 - 12.5 % 01/20/2020 11:26 AM [facility] EOSINOPHILS 5.3 0.0 - 5.6 % 01/20/2020 11:26 AM CDT [facility] BASOPHILS 0.6 0.0 - 1.3 % 01/20/2020 11:26 AM CDT [facility] ABS. NEUTROPHILS TOTAL 6.08(H) 1.40 - 6.00 x10'3/uL 01/20/2020 11:26 AM CDT [facility] IMMATURE GRANS % 0.2 0.0 - 0.5 % 01/20/2020 11:26 AM CDT [facility] ABS. LYMPHOCYTES 2.47 0.80 - 4.70 x10'3/uL 01/20/2020 11:26 AM CDT [facility] 01/20/2020 10:5 8 AM CDT Gerardo LEE LABORATORY Final Re sult Performing Organization Address [facility] Co de Phone Number [facility] [address] [place] [address], [place] [phone] * BLOOD TYPING, ABO AND RH (01/20/2020 10:58 AM CDT) ABO/RH O NEGATIVE 01/20/2020 11:45 AM CDT [facility] 01/20/2020 10:5 8 AM CDT us Gerardo LEE BLOOD BANK TEST ORDERABL ES Final Result Performing Organization Address [facility] Co de Phone Number [facility] [address] [place] [address], [place] [phone] documented in this encounter Visit Diagnoses Diagnosis Encounter for other specified special examinations- Primary documented in this encounter Additional Health Concerns Infection Onset Date Last Indicated Resolved Time COVID-19 Rule Out 01/20/2020 01/20/2020 01/21/2020 8:00 PM CDT COVID-19 Rule Out 02/17/2020 02/17/2020 02/19/2020 2:16 AM INTERVENTIONAL NEURORADIOLOGIST documented as of this encounter Care Teams Land Lease Information Clerk Relationship Specialty Start Date End Date Gerardo Bernstein PA PCP - General PHYSICIAN NETWORK ADMINISTRATOR 09/14/19 documented as of this encounter
--- OUTSIDE RECORDS SUMMARY | 2024-04-09 05:16 | XMS_ITS | Encounter Summary ---
Author Organization [facility] Address [address] [place] [address]. [place] [address] [place] [address] Care Team Providers Care Dry Wall Installer Name Role Phone Gerardo Bernstein Primary Care Provider + Encounter Details Date Type Department Care Team (Late st Contact Info) Description 01/20/2020 10:47 AM CDT - 01/20/2020 11:59 PM CDT Hospital Encounter [facility] [address] [place], [place] [phone] Gerardo Bernstein PA [address] [place] [address] [place] [phone] Discharge Disposition: Home or Self Care (Routine [...] Procedure Name Priority Date/Time Associated Diagnosis Comments PARTIAL THROMBOPLASTIN TIME,PTT Routine 01/20/2020 10:58 AM CDT Encounter for other specified special examinations PROTHROMBIN TIME, VENOUS Routine 01/20/2020 10:58 AM CDT Encounter for other specified special examinations COMPREHENSIVE METABOLIC PANEL Routine 01/20/2020 10:58 AM CDT Encounter for other specified special examinations LIPID PANEL Routine 01/20/2020 10:58 AM CDT Encounter for other specified special examinations HC BLOOD TYPING ABO Routine 01/20/2020 1 0:58 AM CDT Encounter for other specified special examinations CBC W/DIFF AUTOMATED Routine 01/20/2020 10:58 AM CDT Encounter for other specified special examinations THYROXINE, FREE (FT4) Routine 01/20/2020 10:58 AM CDT Encounter for other specified special examinations THYROID STIM HORMONE TSH Routine 01/20/2020 10:58 AM CDT Encounter for other specified special examinations documented in this encounter Results * LIPID PANEL (01/20/2020 10:58 AM CDT) CHOLESTEROL 111 <200.0 MG/DL 01/20/2020 11:53 AM CDT [facility] TRIGLYCERIDES 121 <150 MG/DL 01/20/2020 11:53 AM [facility] HDL 41 >40.0 MG/DL 01/20/2020 11:53 AM [facility] LDL (CALCULATED) 46 <100 MG/DL 01/20/20 20 11:53 AM [facility] NON HDL CHOLESTEROL 70 <130 MG/DL 01/19 11:53 AM [facility] CHOL/HDL RATIO 2.7 0.0 - 4.5 01/20/2020 11:53 AM [facility] VLDL CALCULATION 24 5 - 55 MG/DL 01/20/2020 11:53 AM [facility] LIPID INTERPRETATION 01/20/2020 11:53 AM [facility] Comment: [facility] REPORT RECOMMENDATIONS: ?ADULT ?CHILD ??LOW RISK: [...] LABORATORY Final Re sult Performing Organization Address [facility] de Phone Number [facility] [address] [place] [address], * THYROXINE, FREE (FT4) (01/20/2020 10:58 AM CDT) FREE T4 1.07 0.76 - 1.46 NG/DL 01/20/2020 11:53 AM CDT [facility] 01/20/2020 10:5 8 AM CDT Gerardo LEE LABORATORY Final Re sult Performing Organization Address [facility] de Phone Number [facility] [address] [place] [address], [place] [phone] * THYROID STIM HORMONE, TSH (01/20/2020 10:58 AM CDT) TSH 2.120 0.358 - 3.74 uIU/ML 01/20/2020 11:53 AM CDT [facility] Comment: HIGH DOSES OF BIOTIN MAY INTERFERE WITH THIS TEST RESULT. CORRELATION TO CLINICAL HISTORY AND PRESENTATION RECOMMENDED. 01/20/2020 10:5 8 AM CDT Gerardo LEE LABORATORY Final Re sult [facility] [address] [place] [address], [place] [phone] * (ABNORMAL) PARTIAL THROMBOPLASTIN TIME,PTT (01/20/2020 10:58 AM CDT) PTT 38.2(H) 27.0 - 36.8 SEC 01/20/2020 11:38 AM CDT [facility] 01/20/2020 10:5 8 AM CDT Gerardo LEE LABORATORY Final Re sult Performing Organization Address [facility] Co de Phone Number [facility] [address] [place] [address], [place] [phone] * PROTIME/INR, VENOUS (01/20/2020 10:58 AM CDT) PROTIME 11.4 9.1 - 12.4 SEC 01/20/2020 11:38 AM CDT [facility] INR 0.9 01/20/2020 11:38 AM CDT [facility] Comment: Recommend INR ranges for Oral Anticoagulant Therapy: Mechanical Cardiac Values 2.5-3.5 All others indication 2.0-3.0 01/20/2020 10:5 8 AM CDT Gerardo LEE LABORATORY Final Re sult Performing Organization Address City/[facility]/ZIP Co de Phone Number [facility] [address] [place] [address], [place] [phone] * (ABNORMAL) COMPREHENSIVE METABOLIC PANEL (01/20/2020 10:58 AM CDT) GLUCOSE 156(H) 70 - 99 MG/DL 01/20/2020 11:53 AM [facility] BUN 21(H) 7 - 18 MG/DL 01/20/2020 11:53 AM [facility] CREATININE S/P/B 1.12(H) 0.55 - 1.02 MG/DL 01/20/2020 11:53 AM [facility] SODIUM S/P/B 140 136 - 145 MMOL/L 01/20/2020 11:53 AM [facility] POTASSIUM S/P/B 4.1 3.5 - 5.1 MMOL/L 01/20/2020 11:53 AM [facility] CHLORIDE S/P/B 103 100 - 108 MMOL/L 01/20/2020 11:53 AM [facility] CO2 28.0 21 - 32 MMOL/L 01/20/2020 11:53 AM [facility] CALCIUM S/P/B 9.5 8.5 - 10.1 MG/DL 01/20/2020 11:53 AM [facility] BILIRUBIN TOTAL S/P/B 0.3 0.2 - 1.2 MG/DL 01/20/2020 11:53 AM [facility] TOTAL PROTEIN S/P/B 7.9 6.4 - 8.2 G/DL 01/20/2020 11:53 AM [facility] ALBUMIN S/P/B 3.4 3.4 - 5.0 G/DL 01/20/2020 11:53 AM [facility] AST 11(L) 15 - 37 U/L 01/20/2020 11:53 AM [facility] ALT 21 14 - 55 U/L 01/20/2020 11:53 AM CDT [facility] ALKALINE PHOSPHATASE S/P/B 65 50 - 136 U/L 01/20/2020 11:53 AM CDT [facility] ANION GAP 9.0 5 - 15 MMOL/L 01/20/2020 11:53 AM CDT [facility] BUN CREATININE RATIO 18.8 6 - 26 01/20/2020 11:53 AM CDT [facility] A/G RATIO 0.8(L) 1.0 - 2.0 RATIO 01/20/2020 11:53 AM CDT [facility] EGFR NON-AFR. AMER. 53(L) >90 ML/MIN/1.7 3 M2 01/20/2020 11:53 AM CDT [facility] EGFR AFR. AMER. 62(L) >90 ML/MIN/1.7 3 M2 01/20/2020 11:53 AM CDT [facility] Comment: NOTE: eGFR is not calculated for patients <18 years of age. This is an estimated GFR (CKD EPI) and should not be used for calculating drug doses. 01/20/2020 10:5 8 AM CDT Gerardo LEE LABORATORY Final Re sult [facility] [address] [place] [address], * (ABNORMAL) CBC W/DIFF AUTOMATED (01/20/2020 10:58 AM CDT) WBC 9.7 4.4 - 11.0 x10'3/uL 01/20/2020 11:26 AM CDT [facility] RBC 4.47(L) 4.50 - 5.10 x10'6/uL 01/20/2020 11:26 AM CDT [facility] HGB 13.5 12.3 - 15.3 G/DL 01/20/2020 11:26 AM [facility] HCT 42.5 35.9 - 44.6 % 01/20/2020 11:26 AM T [facility] MCV 95.1 80.0 - 96.0 FL 01/20/2020 11:26 AM [facility] MCH 30.2 25.3 - 30.9 PG 01/20/2020 11:26 AM [facility] MCHC 31.8 31.0 - 34.1 G/DL 01/20/2020 11:26 AM [facility] RDW 12.9 12.4 - 15.1 % 01/20/2020 11:26 AM [facility] PLT 276 151 - 353 x10'3/uL 01/20/2020 11:26 AM [facility] MPV 9.7 9.6 - 12.0 FL 01/20/2020 11:26 AM [facility] RBC MORPHOLOGY NORMAL 01/20/2020 11:26 AM [facility] PLT MORPH. NORMAL 01/20/2020 11:26 AM [facility] WBC MORPHOLOGY NORMAL 01/20/2020 11:26 AM [facility] LYMPHOCYTES % 25.5 15.8 - 45.0 % 01/20/2020 11:26 AM [facility] NEUTROPHILS % 62.6 42.1 - 71.9 % 01/20/2020 11:26 AM [facility] MONOCYTES % 5.8 5.7 - 12.5 % 01/20/2020 11:26 AM [facility] EOSINOPHILS 5.3 0.0 - 5.6 % 01/20/2020 11:26 AM [facility] BASOPHILS 0.6 0.0 - 1.3 % 01/20/2020 11:26 AM CDT [facility] ABS. NEUTROPHILS TOTAL 6.08(H) 1.40 - 6.00 x10'3/uL 01/20/2020 11:26 AM CDT [facility] IMMATURE GRANS % 0.2 0.0 - 0.5 % 01/20/2020 11:26 AM CDT [facility] ABS. LYMPHOCYTES 2.47 0.80 - 4.70 x10'3/uL 01/20/2020 11:26 AM CDT [facility] 01/20/2020 10:5 8 AM CDT Gerardo LEE LABORATORY Final Re sult Performing Organization Address [facility]/ZIP Co de Phone Number [facility] [address] [place] [address], * BLOOD TYPING, ABO AND RH (01/20/2020 10:58 AM CDT) ABO/RH O NEGATIVE 01/20/2020 11:45 AM CDT [facility] 01/20/2020 10:5 8 AM CDT Gerardo LEE BLOOD BANK TEST ORDERABL ES Final Result Performing Organization Address [facility] de Phone Number [facility] [address] [place] [address], [place] [phone] documented in this encounter Visit Diagnoses Diagnosis Encounter for other specified special examinations documented in this encounter Additional Health Concerns Infection Onset Date Last Indicated Resolved Time COVID-19 Rule Out 01/20/2020 01/20/2020 01/21/2020 8:00 PM CDT documented as of this encounter Care Teams Dry Wall Installer Relationship Specialty Start Date End Date Gerardo Bernstein PA PCP - General PHYSICIAN TUNNEL HEADING INSPECTOR 09/14/19 documented as of this encounter
--- OUTSIDE RECORDS SUMMARY | 2024-04-09 05:16 | XMS_ITS | Encounter Summary ---
Author Organization [facility] Address [address] [place] [address]. [place] [address] [place] [address] Care Team Providers Care Insurance Defense Paralegal Name Role Phone Gerardo Bernstein Primary Care Provider + Encounter Details Date Type Department Care Team (Late st Contact Info) Description 01/18/2020 Prep for Procedure [facility] [address] [place] [address] Frankie Reich MD [address] [facility] [address] [place] [address] Social History Tobacco Use Types [...] AM CDT documented as of this encounter Plan of Treatment Not on file documented as of this encounter Results * PRE-SURGICAL/PRE-PROCEDURE CORONAVIRUS (COVID 19) (02/17/2020 10:35 AM CHILDBIRTH EDUCATOR) CORONAVIRUS SARS COV 2 PCR (RESP) NOT DETECTED NOT DETECTED 02/19/2020 2:15 AM [employer] [facility] Comment: A Not Detected (negative) test result [...] providers and patients using the following websites: https://www.[employer]/home/Covid-19/HCP/NAAT/fact-sheet2 https://www.[employer]/home/Covid-19/Patients/NAAT/ fact-sheet2 This test has been authorized by the FDA under an Emergency Use Authorization (EUA) for use by authorized laboratories. Due to the current public health emergency, [facility] is receiving a high volume of samples [...] about COVID-19 can be found at the [employer] website: www.[employer]/Covid19. Test performed at [facility] [place] [address] [place], [place] ??[address] Director: STEVE ZURITA DO,MPH FIRST TEST NO 02/17/2020 10:33 AM [facility] EMPLOYED IN HEALTHCARE NO 02/17/2020 10:33 AM [facility] SYMPTOMATIC DEFINED BY CDC NO 02/17/2020 10:33 AM CHILDBIRTH EDUCATOR [facility] DATE OF SYMPTOM ONSET UNKNOWN 02/17/2020 10:49 AM [facility] HOSPITALIZATION STATUS NO 02/17/2020 10:33 AM [facility] PATIENT IN ICU NO 02/17/2020 10:33 AM CHILDBIRTH EDUCATOR [facility] RESIDENT OF [facility] CARE NO 02/17/2020 10:33 AM CHILDBIRTH EDUCATOR [facility] UNKNOWN 02/17/2020 10:49 AM CHILDBIRTH EDUCATOR [facility] PATIENT'S RACE WHITE OR 02/17/2020 10:33 AM [facility] ETHNICITY NONHISPANIC 02/17/2020 10:33 AM [facility] SOURCE (QST) NASOPHARYNGEAL SWAB 02/17/2020 10:33 AM [facility] NASOPHARYNGEAL SWAB / Unknown 02/17/2020 10:35 AM CHILDBIRTH EDUCATOR Frankie Reich MD MICROBIOLOGY - GENERAL ORDERAB LES Final Result Performing Organization Address [facility]/State/[facility] Co de Phone Number [facility] [address] [place] [address], [facility] [id number] [place] [address], * PRE-SURGICAL/PRE-PROCEDURE CORONAVIRUS (COVID 19) (01/20/2020 10:39 AM CDT) CORONAVIRUS SARS COV 2 PCR (RESP) NOT DETECTED NOT DETECTED 01/21/2020 7:59 PM CDT [email or web address] Comment: A Not Detected (negative) test result [...] providers and patients using the following websites: https://www.[employer]/home/Covid-19/HCP/NAAT/fact-sheet2 https://www.[employer]/home/Covid-19/Patients/NAAT/ fact-sheet2 This test has been authorized by the FDA under an Emergency Use Authorization (EUA) for use by authorized laboratories. Due to the current public health emergency, [facility] is receiving a high volume of samples [...] about COVID-19 can be found at the [employer] website: www.[employer]/Covid19. Test performed at [facility] [address] ??[phone] Director: STEVE ZURITA DO,MPH FIRST TEST YES 01/20/2020 10:37 AM CDT [facility] EMPLOYED IN HEALTHCARE UNKNOWN 01/20/2020 10:37 AM CDT [facility] SYMPTOMATIC DEFINED BY CDC NO 01/20/2020 10:37 AM CDT [facility] HOSPITALIZATION STATUS NO 01/20/2020 10:37 AM CDT [facility] PATIENT IN ICU NO 01/20/2020 10:37 AM CDT [facility] RESIDENT OF [facility] UNKNOWN 01/20/2020 10:37 AM CDT [facility] NO 01/20/2020 11:47 AM CDT [facility] PATIENT'S RACE WHITE OR 01/20/2020 10:37 AM CDT [facility] ETHNICITY NONHISPANIC 01/20/2020 10:37 AM CDT [facility] SOURCE (QST) NASOPHARYNGEAL SWAB 01/20/2020 10:37 AM CDT [facility] NASOPHARYNGEAL SWAB / Unknown 01/20/2020 10:39 AM CDT us Frankie Reich MD MICROBIOLOGY - GENERAL ORDERAB LES Final Result [facility] [address] [place] [address], [facility] [address] [place] [address], documented in this encounter Visit Diagnoses Diagnosis Preop testing- Primary Preoperative examination, unspecified documented in this encounter Additional Health Concerns Infection Onset Date Last Indicated Resolved Time COVID-19 Rule Out 01/20/2020 01/20/2020 01/21/2020 8:00 PM CDT COVID-19 Rule Out 02/17/2020 02/17/2020 02/19/2020 2:16 AM CHILDBIRTH EDUCATOR documented as of this encounter Care Teams Insurance Defense Paralegal Relationship Specialty Start Date End Date Gerardo Bernstein PA PCP - General PHYSICIAN PATIENT TRANSPORT ORDERLY 09/14/19 documented as of this encounter
--- OUTSIDE RECORDS SUMMARY | 2024-04-09 05:16 | XMS_ITS | Encounter Summary ---
Author Organization [facility] Address [facility] [facility] [place] [address] [place] [address] Care Team Providers Care Aircraft Maintenance Engineer Name Role Phone Gerardo Bernstein Primary Care Provider + Reason for Visit * Auth/Cert Specialty Diagnoses / Procedures Referred By Devante rudolph Referred To Contact Diagnoses H25.12 Procedures LEFT CATARACT REMOVAL WITH IOL IMPLANT Referral ID Status Reason Start Date Expiration Date Visits Re quested Visits Authorized [id number] 1 1 Encounter Details Date Type Department Care Team (Late st Contact Info) Description 01/23/2020 8:39 AM CDT Anesthesia Event [facility] Surgery [address] [place] [address] Veronica Joshua CRNA [address] [place] [address] Anesthesia Record Procedure Summary Procedure Name Responsible Anesthesiologist Anesthesia Start Time Anesthesia Stop Time LEFT CATARACT REMOVAL WITH IOL IMPLANT (Left: Eye) Veronica Joshua CRNA 01/23/20 0839 01/23/20 0905 Events Date Time Event Comment 01/23/2020 0710 0710 AN JOURNEYMAN PAINTER Prepped 0839 An Start Patient ID and consent checked and patient reassessed. 0839 An Start Data 0839 Anesthesia Ready 0905 An Stop 0905 an stop data 0905 Post Anesthetic Care Handoff I completed my handoff to the receiving nurse during which we: 1. Identified the patient 2. Identified the responsible provider 3. Reviewed the pertinent medical history 4. Discussed the surgical course 5. Reviewed intra-op anesthesia management and issues during anesthesia 6. Set expectations for post-procedure period 7. Allowed opportunity for questions and acknowledgement of understanding. Meds Name Total midazolam 2 mg/2 mL injection 2 mg * Agents No agents on file. * Blood No blood administrations on file. Lines, Drains, and Airways Type Details Placement Removal Surgical/Incision 01/23/20; 0851; Surgical Wound; Eye; Left; SHIELD EYE ADULT, TAPE PAPER 1 ; 01/23/20; 1135 01/23/20 0851 by Evelia Ferrara RN 01/23/20 1135 by Automatic Discharge Provider documented in this [...] AM CDT documented as of this encounter OR Notes * Anesthesia Postprocedure Evaluation - Veronica Joshua CRNA - 01/23/2020 9:05 AM CDT Anesthesia Post-op Note Maria Long Procedure(s): LEFT CATARACT REMOVAL WITH IOL IMPLANT (Left Eye) Anesthesia type: MAC Vitals: 01/23/20 0716 BP: 135/70 Vitals: 01/23/20713 Pulse: 76 Vitals: 01/23/2014 Resp: 20 Vitals: 01/23/20713 Temp: 37.1 ??C Vitals: 01/23/20713 SpO2: 96% Patient Location: PACU Level of Consciousness: awake, oriented and alert Pain Management: adequate analgesia Airway Patency: patent Respiratory Status: acceptable Cardiovascular Status: acceptable Post-Op Nausea: none Postoperative Hydration: euvolemic Complications: no anesthesia complication * Anesthesia Preprocedure Evaluation - Veronica Joshua CRNA - 01/18/2020 12:03 PM CDT Anesthesia ROS/MED History Reviewed: Patient summary , Nursing notes , Family history anesthesia, Anesthesia history , Medications Pre-Anesthetic State: alert, awake and responds appropriately Pulmonary Cardiovascular Exercise tolerance:poor (+) hyperlipidemia Neuro/Psych (+) CVA GI/Hepatic/Renal Endo/Other (+) diabetes mellitus, obese Physical Evaluation Airway Mallampati: III TM Distance: >3 FB Neck ROM: normal Dental No notable dental history Pulmonary Breath sounds clear to auscultation Cardiovascular Rhythm: regular Rate: normal Anesthesia Plan ASA 3 Intravenous Induction Anesthesia type: MAC Informed Consent Anesthetic plan and risks discussed with patient of whom consent was obtained. . Cosigned by Frankie Reich MD at 01/23/2020 7:59 AM CDT documented in this encounter Plan of Treatment Not on file documented as of this encounter Visit Diagnoses Not on filedocumented in this encounter Administered Medications Inactive Administered Medications - up to 3 most recent administrations Medication Order MAR Action Action Date Dose Rate Site midazolam (VERSED) injection Intravenous, PRN, Starting on Thu01/23/20 at 0842, Until Thu01/23/20 at 0905, Anesthesia Intra-Op Given 01/23/2020 8:42 AM CDT 2 mg documented in this encounter Care Teams Aircraft Maintenance Engineer Relationship Specialty Start Date End Date Gerardo Bernstein PA PCP - General PHYSICIAN LABORATORY COURIER 09/14/19 documented as of this encounter
--- OUTSIDE RECORDS SUMMARY | 2024-04-09 05:16 | XMS_ITS | Encounter Summary ---
Author Organization [facility] Address [address] [place] [address]. [place] [address] [place] [address] Care Team Providers Care Industrial Plant Custodian Name Role Phone Gerardo Bernstein Primary Care Provider + Encounter Details Date Type Department Care Team (Late st Contact Info) Description 01/20/2020 10:41 AM CDT - 01/20/2020 10:43 AM CDT Hospital Encounter [facility] [address] [place], [place] [id number] Gerardo Bernstein PA [address] [place] [address] [place] [address] Discharge Disposition: Home or Self Care (Routine [...] Procedure Name Priority Date/Time Associated Diagnosis Comments XR CHEST PA+LAT Routine 01/20/2020 11:30 AM CDT Radiological examination, not elsewhere classified documented in this encounter Results * XR CHEST PA+LAT (01/20/2020 11:30 AM CDT) Anatomical Region Laterality Modality Chest Radiographic Ashely ging 01/20/2020 11:4 0 AM CDT Impressions 01/20/2020 11:40 AM CDT IMPRESSION: No evidence of acute cardiopulmonary disease. Scattered interstitial fibrosis and calcified granuloma without overt failure, air-space disease or large pleural effusion. Atherosclerotic aorta without cardiomegaly. Chronic changes within the shoulders and spine. Interpreted By: Uche Zheng, 01/20/2020 11:40 AM Narrative 01/20/2020 11:40 AM CDT IMAGING STUDIES: ??XR CHEST PA+LAT ? EXAM DATE/TIME: ??01/20/2020 10:58 AM INDICATION: pre-op ?? . COMPARISON: ??No comparison.. TECHNIQUE: 2 views. Procedure Note Uche Zheng MD - 01/20/2020 IMAGING STUDIES: XR CHEST PA+LAT EXAM DATE/TIME: 01/20/2020 10:58 AM INDICATION: pre-op . COMPARISON: No comparison.. TECHNIQUE: 2 views. IMPRESSION: No evidence of acute cardiopulmonary disease. Scattered interstitial fibrosis and calcified granuloma without overt failure, air-space disease or large pleural effusion. Atherosclerotic aorta without cardiomegaly. Chronic changes within the shoulders and spine. Interpreted By: Uche Zheng, 01/20/2020 11:40 AM Gerardo [facility] Final Re sult documented in this encounter Visit Diagnoses Diagnosis Radiological examination, not elsewhere classified documented in this encounter Additional Health Concerns Infection Onset Date Last Indicated Resolved Time COVID-19 Rule Out 01/20/2020 01/20/2020 01/21/2020 8:00 PM CDT documented as of this encounter Care Teams Industrial Plant Custodian Relationship Specialty Start Date End Date Gerardo Bernstein PA PCP - General PHYSICIAN URBAN PLANNING TEACHER 09/14/19 documented as of this encounter
--- OUTSIDE RECORDS SUMMARY | 2024-04-09 05:16 | XMS_ITS | Encounter Summary ---
Author Organization [facility] Address [facility] [facility] [place] [address] [place] [address] Care Team Providers Care Media Aid Name Role Phone Gerardo Bernstein Primary Care Provider + Reason for Visit * Auth/Cert Specialty Diagnoses / Procedures Referred By Devante rudolph Referred To Contact Diagnoses H25.11 Procedures RIGHT CATARACT REMOVAL WITH IOL IMPLANT Referral ID Status Reason Start Date Expiration Date Visits Re quested Visits Authorized [id number] 1 1 Encounter Details Date Type Department Care Team (Late st Contact Info) Description 02/20/2020 10:40 AM PACKAGE DYEING MACHINE OPERATOR - 02/20/2020 11:18 AM PACKAGE DYEING MACHINE OPERATOR Surgery [facility] [address] [place] [address] Frankie Lepe MD [address] [facility] [address] [place] [phone] RIGHT CATARACT REMOVAL WITH IOL IMPLANT Surgery Details Date/Time Status Location OR Service Patient Class Case Class Case Type Trauma Case? 02/20/2020 10:[address] [facility] OR OR 2 Ophthalmology Short Stay/Outpat ient Surgery No Panel 1 Procedure LRB Anes Op Region Wound Class Comments RIGHT CATARACT REMOVAL WITH IOL IMPLANT Right Monitor Anesthesia Care Eye Clean Surgeon Surgeon Role Service Panel Frankie Lepe MD Primary Ophthalmology 1 Special Needs 2414 documented in this encounter Social History Tobacco Use Types Packs/Day Years Used Date Smoking Tobacco: Light Smoker Smokeless Tobacco: Never Alcohol Use Standard Drinks/Week Comments Never 0 (1 standard drink = 0.6 oz pur e alcohol) AUDIT-C Answer Date Recorded Frequency of Alcohol Consumption Never 09/12/2019 Average Number of Drinks Not on file 020 Frequency of Binge Drinking Not on file 060 04/2019 Comments No Sex and Gender Information [...] COVID-19? No / Unsure 02/20/2020 8:30 AM PACKAGE DYEING MACHINE OPERATOR documented as of this encounter Last Filed Vital Signs Vital Sign Reading Time Taken Comments Blood Pressure 101/67 02/20/2020 10:15 AM PACKAGE DYEING MACHINE OPERATOR Pulse 80 02/20/2020 10:15 AM PACKAGE DYEING MACHINE OPERATOR Temperature 36 ??C (96.8 ??F) 02/20/2020 8:46 AM PACKAGE DYEING MACHINE OPERATOR Respiratory Rate 16 02/20/2020 10:15 AM PACKAGE DYEING MACHINE OPERATOR Oxygen Saturation 95% 02/20/2020 10:15 AM PACKAGE DYEING MACHINE OPERATOR Inhaled Oxygen Concentration - - Weight 97.5 kg (215 lb) 02/20/2020 8:46 AM PACKAGE DYEING MACHINE OPERATOR Height 172.7 cm (5' 8 ) 02/20/2020 8:46 AM PACKAGE DYEING MACHINE OPERATOR Body Mass Index 32.69 02/20/2020 8:46 AM PACKAGE DYEING MACHINE OPERATOR documented in this encounter Discharge Instructions * Discharge Instructions* Jose Angel Melissa RN - 02/20/2020 10:20 AM PACKAGE DYEING MACHINE OPERATOR Sophia [facility] POST-OP INSTRUCTIONS FOLLOWING [...] Ask you doctor. You must have a line haul driver for the day of surgery and your 1st post op exam. 11. ALWAYS WERE SUNGLASSES WHEN YOU GO OUTSIDE. These are found in your surgery kit. Dr. Lepe OFFICE [phone] AFTER HOURS EMERGENCY [phone] AGE DYEING MACHINE OPERATOR * Attachments The following attachments cannot be sent through Care Everywhere. * Cataracts Discharge Instructions (Ecuadorean) documented in this encounter Medications at Time [...] Op Note - Frankie Lepe MD - 02/20/2020 9:22 AM CST Date: 02/20/2020 Patient Name: Maria ParkinsonO.B.: 1960 Surgeon: FRANKIE LEPE M.D. Preoperative Diagnosis: Cataract Right Postoperative Diagnosis: Cataract Right Name of Operation: Cataract Extraction (by Phacoemulsification) [...] room in satisfactory condition. Frankie Lepe MD AGE DYEING MACHINE OPERATOR documented in this encounter Plan of Treatment Not on file documented as of this encounter Procedures Procedure Name Priority Date/Time Associated Diagnosis Comments CATARACT REMOVAL WITH IOL IMPLANT 02/20/2020 9:48 AM PACKAGE DYEING MACHINE OPERATOR H25.11 Special Needs 0830 POCT GLUCOSE - CHRISTY DOCKED DEVICE Routine 02/20/2020 9:06 AM PACKAGE DYEING MACHINE OPERATOR documented in this encounter Results * (ABNORMAL) POCT glucose (02/20/2020 9:06 AM PACKAGE DYEING MACHINE OPERATOR) GLUCOSE POC 125(H) 70 - 110 mg/dL 02/20/2020 9:08 AM PACKAGE DYEING MACHINE OPERATOR [facility] 02/20/2020 9:06 AM PACKAGE DYEING MACHINE OPERATOR us Frankie Lepe MD POCT ORDERABLES - DEVICE Final Result [facility] [address] [place] [address], [place] [phone] documented in this encounter Visit Diagnoses Not on filedocumented in this encounter Administered Medications Inactive Administered Medications - up to 3 most recent administrations Medication Order MAR Action Action Date Dose Rate Site apraclonidine (IOPIDINE) 0.5 % ophthalmic solution As needed, Starting on Thu02/20/20 at 0959, Until Thu02/20/20 at 1006, Intra-Op Given 02/20/2020 10:00 AM PACKAGE DYEING MACHINE OPERATOR 1 drop besifloxacin (BESIVANCE) 0.6 % ophthalmic suspension 1 drop 1 drop, Right Eye, Every 5 min, 3 doses, First dose on Thu02/20/20 at 0900, Last dose on Thu02/20/20 at 0910, Instill to operative eye, Pre-Op Given 02/20/2020 9:10 AM PACKAGE DYEING MACHINE OPERATOR 1 drop Given 02/20/2020 9:04 AM PACKAGE DYEING MACHINE OPERATOR 1 drop Given 02/20/2020 8:58 AM PACKAGE DYEING MACHINE OPERATOR 1 drop BUpivacaine (PF) (MARCAINE) 0.5 % injection 0.1 mL 0.1 mL, Right Eye, Every 5 min, 3 doses, First dose on Thu02/20/20 at 0900, Last dose on Thu02/20/20 at 0910, Instill to operative eye, Pre-Op Given 02/20/2020 9:09 AM PACKAGE DYEING MACHINE OPERATOR 10 mLs Given 02/20/2020 9:04 AM PACKAGE DYEING MACHINE OPERATOR 10 mLs Given 02/20/2020 8:57 AM PACKAGE DYEING MACHINE OPERATOR 10 mLs EPINEPHrine 0.3 mg in balanced salts (BSS) irrigation solution As needed, Starting on Thu02/20/20 at 0958, Until Thu02/20/20 at 1006, Intra-Op Given 02/20/2020 9:58 AM PACKAGE DYEING MACHINE OPERATOR 500 mLs flurbiprofen (OCUFEN) 0.03 % ophthalmic solution 1 drop 1 drop, Right Eye, Every 5 min, 3 doses, First dose on Thu02/20/20 at 0900, Last dose on Thu02/20/20 at 0910, Instill to operative eye, Pre-Op Given 02/20/2020 9:09 AM PACKAGE DYEING MACHINE OPERATOR 1 drop Given 02/20/2020 9:04 AM PACKAGE DYEING MACHINE OPERATOR 1 drop Given 02/20/2020 8:58 AM PACKAGE DYEING MACHINE OPERATOR 1 drop lidocaine (PF) (XYLOCAINE) 1 % injection As needed, Starting on Thu02/20/20 at 0959, Until Thu02/20/20 at 1006, Intra-Op Given 02/20/2020 9:59 AM PACKAGE DYEING MACHINE OPERATOR 1 mL methazolAMIDE (NEPTAZANE) tablet 50 mg 50 mg, Oral, Once, 1 dose, On Thu02/20/20 at 1045, If NOT allergic to Sulfa, Post-Op Given 02/20/2020 10:23 AM PACKAGE DYEING MACHINE OPERATOR 50 mg moxifloxacin (VIGAMOX) 0.5 % ophthalmic solution As needed, Starting on Thu02/20/20 at 1000, Until Thu02/20/20 at 1006, Intra-Op Given 02/20/2020 10:00 AM PACKAGE DYEING MACHINE OPERATOR 1 drop phenylephrine (MYDFRIN) 2.5 % ophthalmic solution 1 drop 1 drop, Right Eye, Every 5 min, 3 doses, First dose on Thu02/20/20 at 0900, Last dose on Thu02/20/20 at 0910, Instill to operative eye, Pre-Op Given 02/20/2020 9:09 AM PACKAGE DYEING MACHINE OPERATOR 1 drop Given 02/20/2020 9:04 AM PACKAGE DYEING MACHINE OPERATOR 1 drop Given 02/20/2020 8:58 AM PACKAGE DYEING MACHINE OPERATOR 1 drop povidone-iodine (BETADINE) 5 % ophthalmic solution As needed, Starting on Thu02/20/20 at 1001, Until Thu02/20/20 at 1006, Intra-Op Given 02/20/2020 10:01 AM PACKAGE DYEING MACHINE OPERATOR 1 drop tropicamide (MYDRIACYL) 1 % ophthalmic solution 1 drop 1 drop, Right Eye, Every 5 min, 2 doses, First dose on Thu02/20/20 at 0900, Last dose on Thu02/20/20 at 0905, Instill to operative eye, Pre-Op Given 02/20/2020 9:04 AM PACKAGE DYEING MACHINE OPERATOR 1 drop Given 02/20/2020 8:58 AM PACKAGE DYEING MACHINE OPERATOR 1 drop documented in this encounter Active and Recently Administered Medications Times are shown in PACKAGE DYEING MACHINE OPERATOR. Scheduled Medication Order 02/18/2020 02/19/2020 02/20/2020 besifloxacin (BESIVANCE) 0.6 % ophthalmic suspension 1 drop (COMPLETED) 1 drop, Right Eye, Every 5 min, 3 doses, First dose on Thu02/20/20 at 0900, Last dose on Thu02/20/20 at 0910, Instill to operative eye, Pre-Op 0858 (Given - Provid er: Maria Llanes RN)09 (Given - Provider: Maria Llanes RN)09 (Given - Provider: Maria Llanes RN) BUpivacaine (PF) (MARCAINE) 0.5 % injection 0.1 mL (COMPLETED) 0.1 mL, Right Eye, Every 5 min, 3 doses, First dose on Thu02/20/20 at 0900, Last dose on Thu02/20/20 at 0910, Instill to operative eye, Pre-Op 0857 (Given - Provid er: Maria Llanes RN)09 (Given - Provider: Maria Llanes RN)09 (Given - Provider: Maria Llanes RN) flurbiprofen (OCUFEN) 0.03 % ophthalmic solution 1 drop (COMPLETED) 1 drop, Right Eye, Every 5 min, 3 doses, First dose on Thu02/20/20 at 0900, Last dose on Thu02/20/20 at 0910, Instill to operative eye, Pre-Op 0858 (Given - Provid er: Maria Llanes RN)09 (Given - Provider: Maria Llanes RN)09 (Given - Provider: Maria Llanes RN) methazolAMIDE (NEPTAZANE) tablet 50 mg (COMPLETED) 50 mg, Oral, Once, 1 dose, On Thu02/20/20 at 1045, If NOT allergic to Sulfa, Post-Op 1023 (Given - Provid er: Jose Angel Melissa RN) phenylephrine (MYDFRIN) 2.5 % ophthalmic solution 1 drop (COMPLETED) 1 drop, Right Eye, Every 5 min, 3 doses, First dose on Thu02/20/20 at 0900, Last dose on Thu02/20/20 at 0910, Instill to operative eye, Pre-Op 0858 (Given - Provid er: Maria Llanes RN)09 (Given - Provider: Maria Llanes RN)09 (Given - Provider: Maria Llanes RN) tropicamide (MYDRIACYL) 1 % ophthalmic solution 1 drop (COMPLETED) 1 drop, Right Eye, Every 5 min, 2 doses, First dose on Thu02/20/20 at 0900, Last dose on Thu02/20/20 at 0905, Instill to operative eye, Pre-Op 0858 (Given - Provid er: Maria Llanes RN)09 (Given - Provider: Maria Llanes RN) PRN Medication Order 02/18/2020 02/19/2020 02/20/2020 apraclonidine (IOPIDINE) 0.5 % ophthalmic solution (CANCELED) As needed, Starting on Thu02/20/20 at 0959, Until Thu02/20/20 at 1006, Intra-Op 0959 (Canceled Entry - Provider: Frankie Lepe MD - Comment: intraop)1000 (Given - Provider: Frankie Lepe MD - Comment: intraop) EPINEPHrine 0.3 mg in balanced salts (BSS) irrigation solution (CANCELED) As needed, Starting on Thu02/20/20 at 0958, Until Thu02/20/20 at 1006, Intra-Op 0958 (Given - Provid er: Frankie Lepe MD - Comment: intraop) lidocaine (PF) (XYLOCAINE) 1 % injection (CANCELED) As needed, Starting on Thu02/20/20 at 0959, Until Thu02/20/20 at 1006, Intra-Op 0959 (Given - Provid er: Frankie Lepe MD - Comment: intraop) moxifloxacin (VIGAMOX) 0.5 % ophthalmic solution (CANCELED) As needed, Starting on Thu02/20/20 at 1000, Until Thu02/20/20 at 1006, Intra-Op 1000 (Given - Provid er: Frankie Lepe MD - Comment: introap) povidone-iodine (BETADINE) 5 % ophthalmic solution (CANCELED) As needed, Starting on Thu02/20/20 at 1001, Until Thu02/20/20 at 1006, Intra-Op 1001 (Given - Provid er: Frankie Lepe MD - Comment: intraop) documented in this encounter Care Teams Media Aid Relationship Specialty Start Date End Date Gerardo Bernstein PA PCP - General PHYSICIAN MARKETING SPECIALIST 09/14/19 documented as of this encounter
--- OUTSIDE RECORDS SUMMARY | 2024-04-09 05:16 | XMS_ITS | Encounter Summary ---
Author Organization [facility] Address [address] [place] [address]. [place], [place] [address] [place] [address] Care Team Providers Care Gathering Machine Setter Name Role Phone Gerardo Bernstein Primary Care Provider + Encounter Details Date Type Department Care Team (Latest Contact Info) Description 01/20/2020 Travel Social History Tobacco Use Types Packs/Day [...] documented as of this encounter Care Teams Gathering Machine Setter Relationship Specialty Start Date End Date Gerardo Bernstein PA PCP - General PHYSICIAN NETWORK ENGINEER ADMINISTRATOR 09/14/19 documented as of this encounter
--- OUTSIDE RECORDS SUMMARY | 2024-04-09 05:16 | XMS_ITS | Encounter Summary ---
Author Organization [facility] Address [address] [place] [address]. [place], [place] [address] [place] [address] Care Team Providers Care Network Operations Manager Name Role Phone Gerardo Bernstein Primary Care Provider + Encounter Details Date Type Department Care Team (Latest Contact Info) Description 01/23/2020 Travel Social History Tobacco Use Types Packs/Day [...] on filedocumented in this encounter Care Teams Network Operations Manager Relationship Specialty Start Date End Date Gerardo Bernstein PA PCP - General PHYSICIAN HAND FINISHER 09/14/19 documented as of this encounter
--- OUTSIDE RECORDS SUMMARY | 2024-04-09 05:16 | XMS_ITS | Encounter Summary ---
Author Organization [facility] Address [address] [place] [address]. [place] [address] [place] [address] Care Team Providers Care Cellophane Bath Mixer Name Role Phone Gerardo Bernstein Primary Care Provider + Reason for Visit * Auth/Cert Specialty Diagnoses / Procedures Referred By Devante rudolph Referred To Contact Diagnoses H25.11 Procedures RIGHT CATARACT REMOVAL WITH IOL IMPLANT Referral ID Status Reason Start Date Expiration Date Visits Re quested Visits Authorized [id number] 1 1 Encounter Details Date Type Department Care Team (Latest Contact Info) Description 02/20/2020 8:32 AM SALES ACCOUNT DIRECTOR - 02/20/2020 10:30 AM [facility] Hospital Encounter [facility] [address] [place] [address] Frankie Lepe MD [address] [facility] [address] [phone] Discharge Disposition: Home or Self Care (Routine [...] COVID-19? No / Unsure 02/20/2020 8:30 AM SALES ACCOUNT DIRECTOR documented as of this encounter Last Filed Vital Signs Vital Sign Reading Time Taken Comments Blood Pressure 101/67 02/20/2020 10:15 AM SALES ACCOUNT DIRECTOR Pulse 80 02/20/2020 10:15 AM SALES ACCOUNT DIRECTOR Temperature 36 ??C (96.8 ??F) 02/20/2020 8:46 AM SALES ACCOUNT DIRECTOR Respiratory Rate 16 02/20/2020 10:15 AM SALES ACCOUNT DIRECTOR Oxygen Saturation 95% 02/20/2020 10:15 AM SALES ACCOUNT DIRECTOR Inhaled Oxygen Concentration - - Weight 97.5 kg (215 lb) 02/20/2020 8:46 AM SALES ACCOUNT DIRECTOR Height 172.7 cm (5' 8 ) 02/20/2020 8:46 AM SALES ACCOUNT DIRECTOR Body Mass Index 32.69 02/20/2020 8:46 AM SALES ACCOUNT DIRECTOR documented in this encounter Discharge Instructions * Discharge Instructions* Jose Angel Melissa RN - 02/20/2020 10:20 AM SALES ACCOUNT DIRECTOR Sophia [facility] POST-OP INSTRUCTIONS FOLLOWING [...] Ask you doctor. You must have a stud driver for the day of surgery and your 1st post op exam. 11. ALWAYS WERE SUNGLASSES WHEN YOU GO OUTSIDE. These are found in your surgery kit. Dr. Lepe OFFICE [phone] AFTER HOURS EMERGENCY [phone] S ACCOUNT DIRECTOR * Attachments The following attachments cannot be sent through Care Everywhere. * Cataracts Discharge Instructions (Upper Sorbian) documented in this encounter Medications at Time [...] AM CST Date: 02/20/2020 Patient Name: Maria Héctor ParkinsonO.B.: 1960 Surgeon: FRANKIE LEPE M.D. Preoperative [...] room in satisfactory condition. Frankie Lepe MD S ACCOUNT DIRECTOR documented in this encounter Plan of Treatment Not on file documented as of this encounter Procedures Procedure Name Priority Date/Time Associated Diagnosis Comments CATARACT REMOVAL WITH IOL IMPLANT 02/20/2020 9:48 AM SALES ACCOUNT DIRECTOR H25.11 Special Needs 0830 POCT GLUCOSE - CHRISTY DOCKED DEVICE Routine 02/20/2020 9:06 AM SALES ACCOUNT DIRECTOR documented in this encounter Results * (ABNORMAL) POCT glucose (02/20/2020 9:06 AM SALES ACCOUNT DIRECTOR) GLUCOSE POC 125(H) 70 - 110 mg/dL 02/20/2020 9:08 AM SALES ACCOUNT DIRECTOR [facility] 02/20/2020 9:06 AM SALES ACCOUNT DIRECTOR us Frankie Lepe MD POCT ORDERABLES - DEVICE Final Result [facility] [address] [place] [address], [place] [phone] documented in this encounter Visit Diagnoses Not [...] operative eye, Pre-Op Given 02/20/2020 9:10 AM SALES ACCOUNT DIRECTOR 1 drop Given 02/20/2020 9:04 AM SALES ACCOUNT DIRECTOR 1 drop Given 02/20/2020 8:58 AM SALES ACCOUNT DIRECTOR 1 drop BUpivacaine (PF) (MARCAINE) 0.5 % injection 0.1 mL 0.1 mL, Right Eye, Every 5 min, 3 doses, First dose on Thu02/20/20 at 0900, Last dose on Thu02/20/20 at 0910, Instill to operative eye, Pre-Op Given 02/20/2020 9:09 AM SALES ACCOUNT DIRECTOR 10 mLs Given 02/20/2020 9:04 AM SALES ACCOUNT DIRECTOR 10 mLs Given 02/20/2020 8:57 AM SALES ACCOUNT DIRECTOR 10 mLs flurbiprofen (OCUFEN) 0.03 % ophthalmic solution 1 drop 1 drop, Right Eye, Every 5 min, 3 doses, First dose on Thu02/20/20 at 0900, Last dose on Thu02/20/20 at 0910, Instill to operative eye, Pre-Op Given 02/20/2020 9:09 AM SALES ACCOUNT DIRECTOR 1 drop Given 02/20/2020 9:04 AM SALES ACCOUNT DIRECTOR 1 drop Given 02/20/2020 8:58 AM SALES ACCOUNT DIRECTOR 1 drop methazolAMIDE (NEPTAZANE) tablet 50 mg 50 mg, Oral, Once, 1 dose, On Thu02/20/20 at 1045, If NOT allergic to Sulfa, Post-Op Given 02/20/2020 10:23 AM SALES ACCOUNT DIRECTOR 50 mg phenylephrine (MYDFRIN) 2.5 % ophthalmic solution 1 drop 1 drop, Right Eye, Every 5 min, 3 doses, First dose on Thu02/20/20 at 0900, Last dose on Thu02/20/20 at 0910, Instill to operative eye, Pre-Op Given 02/20/2020 9:09 AM SALES ACCOUNT DIRECTOR 1 drop Given 02/20/2020 9:04 AM SALES ACCOUNT DIRECTOR 1 drop Given 02/20/2020 8:58 AM SALES ACCOUNT DIRECTOR 1 drop tropicamide (MYDRIACYL) 1 % ophthalmic solution 1 drop 1 drop, Right Eye, Every 5 min, 2 doses, First dose on Thu02/20/20 at 0900, Last dose on Thu02/20/20 at 0905, Instill to operative eye, Pre-Op Given 02/20/2020 9:04 AM SALES ACCOUNT DIRECTOR 1 drop Given 02/20/2020 8:58 AM SALES ACCOUNT DIRECTOR 1 drop documented in this encounter Active and Recently Administered Medications Times are shown in SALES ACCOUNT DIRECTOR. Scheduled Medication Order 02/18/2020 02/19/2020 02/20/2020 besifloxacin [...] Llanes RN)09 (Given - Provider: Maria Llanes RN)0909 (Given - Provider: Maria Llanes RN) methazolAMIDE [...] Llanes RN)09 (Given - Provider: Maria Llanes RN)0909 (Given - Provider: Maria Llanes RN) tropicamide (MYDRIACYL) 1 % ophthalmic solution 1 drop (COMPLETED) 1 drop, Right Eye, Every 5 min, 2 doses, First dose on Thu02/20/20 at 0900, Last dose on Thu02/20/20 at 0905, Instill to operative eye, Pre-Op 0858 (Given - Provid er: Maria Llanes RN)0904 (Given - Provider: Maria Llanes RN) PRN Medication Order 02/18/2020 02/19/2020 02/20/2020 apraclonidine (IOPIDINE) 0.5 % ophthalmic solution (CANCELED) As needed, Starting on 02/20/20 at 0959, Until Thu02/20/20 at 1006, Intra-Op 0959 (Canceled Entry - Provider: Frankie Lepe MD - Comment: intraop)1000 (Given - Provider: Frankie Lepe MD - Comment: intraop) EPINEPHrine 0.3 mg in balanced salts (BSS) irrigation solution (CANCELED) As needed, Starting on Thu02/20/20 at 0958, Until 02/20/20 at 1006, Intra-Op 0958 (Given - Provid er: Frankie Lepe MD - Comment: intraop) lidocaine (PF) (XYLOCAINE) 1 % injection (CANCELED) As needed, Starting on Thu02/20/20 at 0959, Until 02/20/20 at 1006, Intra-Op 0959 (Given - Provid er: Frankie Lepe MD - Comment: intraop) moxifloxacin (VIGAMOX) 0.5 % ophthalmic solution (CANCELED) As needed, Starting on Thu02/20/20 at 1000, Until 02/20/20 at 1006, Intra-Op 1000 (Given - Provid er: Frankie Lepe MD - Comment: introap) povidone-iodine (BETADINE) 5 % ophthalmic solution (CANCELED) As needed, Starting on Thu02/20/20 at 1001, Until 02/20/20 at 1006, Intra-Op 1001 (Given - Provid er: Frankie Lepe MD - Comment: intraop) documented in this encounter Care Teams Cellophane Bath Mixer Relationship Specialty Start Date End Date Gerardo Bernstein PA PCP - General PHYSICIAN HEADWAITRESS 09/14/19 documented as of this encounter
--- OUTSIDE RECORDS SUMMARY | 2024-04-09 05:16 | XMS_ITS | Encounter Summary ---
Author Organization [facility] Address [facility] [place] [address] [place] [address] Care Team Providers Care Microstrategy Architect Name Role Phone Gerardo Bernstein Primary Care Provider + Reason for Visit * Auth/Cert Specialty Diagnoses / Procedures Referred By Devante rudolph Referred To Contact Diagnoses H25.12 Procedures LEFT CATARACT REMOVAL WITH IOL IMPLANT Referral ID Status Reason Start Date Expiration Date Visits Re quested Visits Authorized [id number] 1 1 Encounter Details Date Type Department Care Team (Late st Contact Info) Description 01/23/2020 8:46 AM CDT - 01/23/2020 9:24 AM CDT Surgery [facility] [address] [place] [address] Frankie Lepe MD [address] [facility] [address] [phone] LEFT CATARACT REMOVAL WITH IOL IMPLANT Surgery Details Date/Time Status Location OR Service Patient Class Case Class Case Type Trauma Case? 01/23/2020 8:46 AM Posted [facility] OR OR 2 Ophthalmology Short Stay/Outpat ient Surgery No Panel 1 Procedure LRB Anes Op Region Wound Class Comments LEFT CATARACT REMOVAL WITH IOL IMPLANT Left Monitor Anesthesia Care Eye Clean Surgeon Surgeon Role Service Panel Frankie Lepe MD Primary Ophthalmology 1 Special Needs 0900 per [id number] per office documented in this encounter Social History Tobacco [...] Ask you doctor. You must have a scoop driver for the day of surgery and your 1st post op exam. 11. ALWAYS WERE SUNGLASSES WHEN YOU GO OUTSIDE. These are found in your surgery kit. Dr. Lepe OFFICE [phone] AFTER HOURS EMERGENCY [phone] * Attachments The following attachments cannot be [...] procedure well and left the operating room insatisfactory condition. Frankie Lepe MD documented in this encounter Plan of Treatment Not on file documented as of this encounter Procedures Procedure Name Priority Date/Time Associated Diagnosis Comments CATARACT REMOVAL WITH IOL IMPLANT 01/23/2020 8:39 AM CDT H25.12 Special Needs 0900 per [id number] per office POCT GLUCOSE - CHRISTY DOCKED DEVICE Routine 01/23/2020 7:25 AM CDT documented in this encounter Results * POCT glucose (01/23/2020 7:25 AM CDT) GLUCOSE POC 103 70 - 110 mg/dL 01/23/2020 7:42 AM CDT [facility] 01/23/2020 7:25 AM CDT us Frankie Lepe MD POCT ORDERABLES - DEVICE Final Result [facility] [address] [place] [address], [place] [phone] documented in this encounter Visit Diagnoses Not on filedocumented in this encounter Administered Medications Inactive Administered Medications - up to 3 most recent administrations Medication Order MAR Action Action Date Dose Rate Site apraclonidine (IOPIDINE) 0.5 % ophthalmic solution As needed, Starting on Thu01/23/20 at 0851, Until Thu01/23/20 at 0908, Intra-Op Given 01/23/2020 8:51 AM CDT 1 drop besifloxacin (BESIVANCE) 0.6 % ophthalmic [...] Given 01/23/2020 7:35 AM CDT 10 mLs EPINEPHrine 0.3 mg in balanced salts (BSS) irrigation solution As needed, Starting on Thu01/23/20 at 0852, Until Thu01/23/20 at 0908, Intra-Op Given 01/23/2020 8:52 AM CDT 500 mLs Left Eye flurbiprofen (OCUFEN) 0.03 % ophthalmic solution 1 drop 1 drop, Left Eye, Every 5 min, 3 doses, First dose on Thu01/23/20 at 0745, Last dose on Thu01/23/20 at 0755, Instill to operative eye, Pre-Op Given 01/23/2020 7:46 AM CDT 1 drop Given 01/23/2020 7:41 AM CDT 1 drop Given 01/23/2020 7:35 AM CDT 1 drop lidocaine (PF) (XYLOCAINE) 1 % injection As needed, Starting on Thu01/23/20 at 0852, Until Thu01/23/20 at 0908, Intra-Op Given 01/23/2020 8:52 AM CDT 1 mL Left Eye methazolAMIDE (NEPTAZANE) tablet 50 mg 50 mg, Oral, Once, 1 dose, On Thu01/23/20 at 0945, If NOT allergic to Sulfa, Post-Op Given 01/23/2020 9:31 AM CDT 50 mg moxifloxacin (VIGAMOX) 0.5 % ophthalmic solution As needed, Starting on Thu01/23/20 at 0852, Until Thu01/23/20 at 0908, Intra-Op Given 01/23/2020 8:52 AM CDT 1 drop phenylephrine (MYDFRIN) 2.5 % ophthalmic solution 1 drop 1 drop, Left Eye, Every 5 min, 3 doses, First dose on Thu01/23/20 at 0745, Last dose on Thu01/23/20 at 0755, Instill to operative eye, Pre-Op Given 01/23/2020 7:46 AM CDT 1 heather p Given 01/23/2020 7:41 AM CDT 1 drop Given 01/23/2020 7:35 AM CDT 1 drop povidone-iodine (BETADINE) 5 % ophthalmic solution As needed, Starting on Thu01/23/20 at 0852, Until Thu01/23/20 at 0908, Intra-Op Given 01/23/2020 8:52 AM CDT 2 drops tropicamide (MYDRIACYL) 1 % ophthalmic solution 1 [...] at 0852, Until 01/23/20 at 0908, Intra-Op 08 (Given - Provid er: Frankie Lepe MD) lidocaine (PF) (XYLOCAINE) 1 % injection (CANCELED) As needed, Starting on 01/23/20 at 0852, Until 01/23/20 at 0908, Intra-Op 851 (Given - Provid er: Frankie Lepe MD) moxifloxacin (VIGAMOX) 0.5 % ophthalmic solution (CANCELED) As needed, Starting on 01/23/20 at 0852, Until 01/23/20 at 0908, Intra-Op 851 (Given - Provid er: Frankie Lepe MD) povidone-iodine (BETADINE) 5 % ophthalmic solution (CANCELED) As needed, Starting on 01/23/20 at 0852, Until Thu01/23/20 at 0908, Intra-Op 851 (Given - Provid er: Frankie Lepe MD) documented in this encounter Care Teams Microstrategy Architect Relationship Specialty Start Date End Date Gerardo Bernstein PA PCP - General PHYSICIAN EXTRACTIONS TECHNOLOGIST 09/14/19 documented as of this encounter
--- OUTSIDE RECORDS SUMMARY | 2024-04-09 05:16 | XMS_ITS | Encounter Summary ---
Author Organization [facility] Address [address] [place] [address]. [place] [address] [place] [address] Care Team Providers Care Auto Tune Up Mechanic Name Role Phone Gerardo Marino Primary Care Provider + Encounter Details Date Type Department Care Team (Late st Contact Info) Description 01/20/2020 10:44 AM CDT - 01/20/2020 10:46 AM CDT Hospital Encounter [facility] [address] [place], [place] [id number] Gerardo Marino PA [address] [place] [address] [place] [address] Discharge Disposition: Home or Self [...] Procedure Name Priority Date/Time Associated Diagnosis Comments ECG 12-LEAD Routine 01/20/2020 11:18 AM CDT Preop examination documented in this encounter Results * ECG 12 lead (01/20/2020 11:18 AM CDT) 01/20/2020 11:1 8 AM CDT Narrative [facility] RAD - 01/21/2020 9:08 AM CDT ?[facility] ? Test Date: ?2020-01-20 Pat Name: ? SIGIFREDO BECK ? Department: ? Room: ? Gender: ? Female ? Rn Icu: ?? : ?1960 ? Requested By: GERARDO MARINO Order Number: [id number] ? Reading MD: ?? Abdulkadir Osman ? Measurements Intervals ?[place] ? Rate: ? 68 ? P: ?36 MA: ? 163 ?QRS: ?-38 QRSD: ? 81 ? T: ?50 QT: ? 380 ? QTc: ?406 ? Interpretive Statements SINUS RHYTHM LOW QRS VOLTAGE IN PRECORDIAL LEADS ??[QRS DEFLECTION < 1.0 mV IN CHEST LEADS] POSSIBLE ANTERIOR MYOCARDIAL INFARCTION , PROBABLY OLD [30 ms Q WAVE IN V3/V4, OR R < 0.2 mV IN V4] INFERIOR MYOCARDIAL INFARCTION , PROBABLY OLD [40+ ms Q WAVE AND/OR ST/T ABNORMALITY IN II/aVF] No previous ECG available for comparison Procedure Note Abdulkadir Osman MD - 01/21/2020 [facility] Test Date: 2020-01-20 Pat Name: SIGIFREDO BECK Department: Room: Gender: Female Rn Icu: : 1960 Requested By: GERARDO MARINO Order Number: [id number] Reading MD: Abdulkadir Osman Measurements Intervals [place] Rate: 68 P: 36 MA: 163 QRS: -38 QRSD: 81 T: 50 QT: 380 QTc: 406 Interpretive Statements SINUS RHYTHM LOW QRS VOLTAGE IN PRECORDIAL LEADS [QRS DEFLECTION < 1.0 mV IN CHESTLEADS] POSSIBLE ANTERIOR MYOCARDIAL INFARCTION , PROBABLY OLD [30 ms Q WAVE IN V3/V4, OR R < 0.2 mV IN V4] INFERIOR MYOCARDIAL INFARCTION , PROBABLY OLD [40+ ms Q WAVE AND/OR ST/T ABNORMALITY IN II/aVF] No previous ECG available for comparison us Gerardo LEE ECG ORDERABLES Final Re sult [facility] RAD documented in this encounter Visit Diagnoses Diagnosis Preop examination- Primary Preoperative examination, unspecified documented in this encounter Additional Health Concerns Infection Onset Date Last Indicated Resolved Time COVID-19 Rule Out 01/20/2020 01/20/2020 01/21/2020 8:00 PM CDT documented as of this encounter Care Teams Auto Tune Up Mechanic Relationship Specialty Start Date End Date Gerardo Marino PA PCP - General PHYSICIAN MATERIALS TECH 09/14/19 documented as of this encounter
--- OUTSIDE RECORDS SUMMARY | 2024-04-09 05:17 | XMS_ITS | CONTINUITY OF CARE DOCUMENT ---
Author Name aishwarya neff Address Unknown Organization [facility] Address [address] [place] [address] [address] [place] [address] Phone [phone] Care Team Providers Care Aoc Director Combat Plans Officer Name Role Phone Ned SNELL, Mustapha Unavailable KELLY SNELL, ESTHER Unavailable [phone] INSURANCE PROVIDERS Payer name Policy type / Coverage type Victor M red democrat ID [id number] PAY [id number]
[2024-04-09 05:24] LABS: Alanine Aminotransferase 9 U/L (6-35); Albumin Level 2.4 g/dL (3.5-5.1); Alkaline Phosphatase 93 U/L (38-126); Anion Gap 1 mmol/L (4-12); Aspartate Amino Transferase 17 U/L (14-36); Bilirubin,Total 0.3 mg/dL (0.2-1.3); Blood Urea Nitrogen 14 mg/dL (7-17); Calcium 8.2 mg/dL (8.4-10.2); Carbon Dioxide 25 mmol/L (22-30); Chloride 112 mmol/L (98-107); Estimated CRCL calculation 65 ml/min; Estimated Glomerular Filt Rate 56; Glucose 210 mg/dL (65-110); Magnesium 1.3 mg/dL (1.6-2.3); Potassium 3.4 mmol/L (3.4-5.0); Sodium 138 mmol/L (137-145)
[2024-04-09 05:31] LABS: Vancomycin Trough 15.7 ug/mL (10.0-20.0)
[2024-04-09 05:32] VITALS: BP 145/65; PULSE 74; RESP 16; TEMP 36.4; O2SAT 97
[2024-04-09] MEDS: VANCOMYCIN 1,750 MG/NS 500 ML 1,750 MG/500 ML BAG 200 MG IVPB (06:01)
[2024-04-09] MEDS: PANTOPRAZOLE 40 MG TABLET PO ×2 (08:55→21:52)
[2024-04-09] MEDS: ATORVASTATIN 40 MG TABLET PO (08:55)
[2024-04-09] MEDS: MAGNESIUM SULF 2 GM/WATER 50ML 2 GM/50 ML BAG IVPB (08:55)
[2024-04-09] MEDS: THERAPEUTIC MULTIVITAMINS/MINERALS TAB (*BKC) 1 TABLET PO (08:55)
[2024-04-09] MEDS: SODIUM BICARBONATE TAB 650 MG TABLET PO ×2 (08:55→17:15)
[2024-04-09] MEDS: MICONAZOLE NITRATE 2% CREAM 30 GM TUBE 1 APPLIC TOPICAL ×2 (08:56→21:54)
[2024-04-09] MEDS: HYDROcodone/acetaminophen (*CRX) 5-325 MG TABLET 1 TAB PO ×2 (10:13→21:52)
--- NOTE | 2024-04-09 12:34 | PM.IMPN ---
Progress Note: A&P Assessment and Plan (1) Sepsis: Code(s): A41.9 - Sepsis, unspecified organism Status: Acute Assessment and Plan: Patient presents with weakness and found to have sepsis with tachycardia, leukocytisis and elevated lactic. She received appropriate IV fluids in ED. Source is COVID, UTI and/or parotiditis. Started on Rocephin and Flagyl after Cx collected. May have conjunctivitis but sclera clear so this may be coming from the tear duct; this has improved. WBC worsened and Parotid exam worsened so Vanco added and Rocephin increased 04/03. BCx NGTD. UCx growing EColi. WBC better. Exam much improved and patient feels better Follow on culture results. (2) Anemia: Code(s): D64.9 - Anemia, unspecified Status: Acute Assessment and Plan: Hgb low on admission at 8.6. Hgb was 12 in July. She does take ASA but not Plavix at home. Suspect anemia is from recent fracture and noted ecchymosis. Stool guaiac negative by ED exam. She was having bilious emesis on admission but not felt to be coffee ground. Hgb dropped to 6.0 on 04/02 and transfused 2U PRBCs. Could be acute blood loss and/or Hgb drop from IV fluids. PPI added. Iron studies consistent with anemia of chronic disease. B12/folate normal. Hgb 6.1 04/04 and 2u PRBCs ordered again. GI consulted and appreciate their input. Trend HH and transfuse to a stable Hgb. (3) Acute parotitis: Code(s): K11.21 - Acute sialoadenitis Status: Acute Assessment and Plan: Imaging and exam confirm right parotiditis. Started on Rocephin and Flagyl MRSA nasal swab negative No fevers but WBC higher so Rocephin dose advanced and Vanco added 04/03. Clincially much better and WBC improved. Requested family bring in Lemon drops. (4) Stage 3a chronic kidney disease (CKD): Code(s): N18.31 - Chronic kidney disease, stage 3a Status: Acute Assessment and Plan: Cr normal in 2022. Cr 1.2-1.8 range July 2023 for CVA. Possibly an acute component of contrast induced nephropathy. Here, Cr 1.8 and climbed to 2.1. BUN up to 92; related to occult GI bleed? CKD probably related to DM. ROCIO related to sepsis, UTI, parotiditis, anemia, COVID, HoTN CT Abd/pelvis showing cystitis, cortical thinning of the kidneys and a 6.3cm right renal cyst. There is also gas in the bladder and left kidney likely form instrumentation but consider pyelonephritis. UCx growing EColi that is pansensitive. She was given IV fluids and UOP better. Midodrine added for HoTN. Serum bicarb 15 (AG 6) so oral bicarb added Cr down to 1.4 and BUn 50. Serum bicarb improved. Follow renal function, electrolytes and UOP. (5) UTI (urinary tract infection): Code(s): N39.0 - Urinary tract infection, site not specified Status: Acute Assessment and Plan: UA is consistent with UTI except for moderate squamous cells and relatively asymptomatic. UCx collected. CT scan showing bladder wall thickening c/w cystitis. Also with gas in the bladder and left kidney likely form instrumentation but consider pyelonephritis. Rocephin started. Green placed. UCx growing relatively woods-sensitive EColi. Continue Rocephin. Remove Green (6) LV (left ventricular) mural thrombus: Code(s): I51.3 - Intracardiac thrombosis, not elsewhere classified Status: Acute Assessment and Plan: CT Abd showing a LV thrombus. No hx of CAD or signs of CHF to suggest poor LV function. Echo in July 2023 showing normal LV systolic function with EF 55-60% and grade I diastolic dysfxn. Heparin drip was ordered but never started due to anemia Echo this admission showing LV mildly enlarged with moderately reduced LV systolic fxn with EF 40-45% and diastolic dysfunction. No visualized thrombus in the LV by Echo. Will plan to start GDT if BP allows and renal function continues to improve. held midodrine 04/08 (7) COVID: Code(s): U07.1 - COVID-19 Status: Acute Assessment and Plan: Patient found to have COVID. She believes she received the COVID vaccine. CT chest showing mild atelectasis. on room air, continue to monitor (8) Fracture, humerus closed: Code(s): S42.309A - Unspecified fracture of shaft of humerus, unspecified arm, initial encounter for closed fracture Status: Inactive Assessment and Plan: Patient with known right humerus fracture that is in 3 parts. This is associated with blood loss and bruising. No BP in right arm. Use sling as needed for comfort ortho consulted (9) Diabetes mellitus: Code(s): E11.9 - Type 2 diabetes mellitus without complications Status: Acute Assessment and Plan: Patient with DM and is poorly controlled with A1c 12.6%. She does not take her insulin at home and rarely checks her glucose. Continue AccuCheks covering with sliding scale. Hypoglycemia protocol available as needed. Continue Lantus (10) Hx of completed stroke: Code(s): Z86.73 - Personal history of transient ischemic attack (TIA), and cerebral infarction without residual deficits Status: Acute Assessment and Plan: Head CT showing old CVAs right occipital, bilateral basal ganglia, right internal capsule and right thalamus. She is on ASA but not on Plavix or lipitor at home Resume ASA when able. Lipitor restarted. Bedside swallow was normal. Started on full liquid diet due to n/v. Advanced to soft and bite sized level 6 . (11) Smoker: Code(s): F17.200 - Nicotine dependence, unspecified, uncomplicated Status: Acute Assessment and Plan: she stopped on stopping smoking Plan DVT prophylaxis - SCDs Code status - Full Subjective Date/time seen: 04/09/24 12:34 Interval history: no overnight events, pain is controlled. no fever, chills. right cheek is feeling much better now Review of Systems Review of Systems: All systems reviewed & are unremarkable except as noted in HPI and below Exam Narrative: Gen - NARD HEENT - Right parotid swelling much better. No post-auricular erythema. less tender Chest - Air entry is better and clear to auscultation. CV - RRR S1/S2 Abd - soft. NT/ND - Green secured draining clear yellow urine Ext - no pedal edema. Psych - normal mood and affect. Skin - excoriations right shoulder, posterior neck and up in to posterior hair line. no obvious bedbugs. ecchymosis right upper chest Objective Data Vital Signs Vital Signs: Vital Signs - 24 hr 04/08/24 14:00 04/08/24 21:29 04/09/24 05:32 Temperature 97.7 F 97.1 F L 97.6 F Pulse Rate 75 72 74 Respiratory Rate 14 16 16 Blood Pressure 128/64 125/63 145/65 H Pulse Oximetry 98 97 97 Intake/Output Intake/Output: Intake & Output 04/06/24 04/07/24 04/08/24 04/09/24 23:59 23:59 23:59 23:59 Intake Total 2770 1989 1200 340 Output Total 8600 957 0738 750 Balance 1720 1190 175 -410 Meds/Results Medications: Active Medications Generic Name Dose Route Start Last Admin Trade Name Freq PRN Reason Stop Dose Admin Acetaminophen 650 mg 04/02/24 09:53 Acetaminophen 325 Mg Tablet PO Q6H PRN Mild Pain (1-5) Or Fever Hydrocodone Bitart/Acetaminophen 1 tab 04/02/24 09:53 04/09/24 10:13 Hydrocodone/Acetaminophen (*Crx) 5-325 Mg Tablet PO 1 tab Q6H PRN Administration Pain Rated 6 or Greater Atorvastatin Calcium 40 mg 04/03/24 09:00 04/09/24 08:55 Atorvastatin 40 Mg Tablet PO 40 mg DAILY PRERNA Administration Dextrose 12.5 gm 04/02/24 07:07 Dextrose 50% 25 Gm/50 Ml Syringe IV PUSH PRN PRN Hypoglycemia Protocol Glucagon 1 mg 04/02/24 07:07 Glucagon For Inj 1 Mg Vial IM PRN PRN Hypoglycemia Protocol Glucose 15 gm 04/02/24 07:07 Glucose Oral Gel 15 Gm Of Glucse In 37.5 Gm Tube PO PRN PRN Hypoglycemia Protocol Metronidazole 500 mg in 100 mls @ 100 mls/hr 04/02/24 14:00 04/09/24 06:01 Flagyl 500 Mg/Iso Soln 100 Ml IVPB Infused Q8HR PRERNA Infusion Dextrose 1,000 mls @ 100 mls/hr 04/02/24 07:07 Dextrose 5% 1,000 Ml IVPB PRN PRN Hypoglycemia Protocol Ceftriaxone Sodium 2 gm in 100 mls @ 200 mls/hr 04/03/24 15:00 04/08/24 14:49 Rocephin 2 Gm/Ns 100 Ml IVPB 200 mls/hr Q24H PRERNA Administration Vancomycin HCl 1,750 mg in 500 mls @ 250 mls/hr 04/09/24 06:00 04/09/24 06:01 Vancomycin 1,750 Mg/Ns 500 Ml IVPB 200 mls/hr Q24H PRERNA Administration Insulin Aspart 4 - 8 units 04/02/24 08:00 04/09/24 08:50 Insulin Aspart (*Bkc) 100 Units/Ml SUB-Q Not Given TIDWM [facility] Protocol Insulin Glargine 12 units 04/04/24 21:00 04/08/24 21:11 Insulin Glargine (*Bkc) 100 Units/Ml SUB-Q 12 units HS PRERNA Administration Miconazole Nitrate 1 applic 04/03/24 21:00 04/09/24 08:56 Miconazole Nitrate 2% Cream 30 Gm Tube TOPICAL 1 applic Q12HR PRERNA Administration Midodrine 5 mg 04/03/24 17:00 04/08/24 12:05 Midodrine Hcl 2.5 Mg Tablet PO 5 mg TID PRERNA Administration Multivitamins/Calcium 1 tablet 04/07/24 09:00 04/09/24 08:55 Therapeutic Multivitamins/Minerals Tab (*Bkc) PO 1 tablet DAILY PRERNA Administration Ondansetron HCl 4 mg 04/02/24 09:53 04/03/24 10:47 Ondansetron Inj 4 Mg/2 Ml Vial IV PUSH 4 mg Q6H PRN Administration Nausea And Vomiting Pantoprazole Sodium 40 mg 04/06/24 09:55 04/09/24 08:55 Pantoprazole 40 Mg Tablet PO 40 mg Q12HR PRERNA Administration Sodium Bicarbonate 650 mg 04/04/24 09:00 04/09/24 08:55 Sodium Bicarbonate Tab 650 Mg Tablet PO 650 mg BID PRERNA Administration Zinc Acetate/Diphenhydramine 1 applic 04/03/24 14:15 04/08/24 08:37 Diphenhydramine 1%/Zinc 0.1% Cream 30 Gm Tube TOPICAL 1 applic QID PRN Administration Itching Radiology Results: ITS Impressions Humerus X-Ray 04/01/24 21:37 IMPRESSION: 1. Comminuted three-part fracture of proximal right humerus. Head CT 04/01/24 21:47 IMPRESSION: 1. 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 2. Mild nonspecific cerebral white matter disease, which likely represents chronic small vessel ischemic disease. 3. Right-sided parotiditis. Cervical Spine CT 04/01/24 21:50 IMPRESSION: 1. No fracture. 2. Mild cervical spondylosis. 3. Right-sided parotiditis. 4. Mild bilateral cervical lymphadenopathy, likely reactive. Chest CT 04/01/24 21:56 IMPRESSION: 1. Small pericardial effusion. 2. Comminuted fracture of proximal right humerus. Abdomen/Pelvis CT 04/02/24 06:28 IMPRESSION: 1. Cystitis. 2. Thrombus in left ventricular apex of the heart. Labs Labs: Laboratory Results - last 24 hr 04/08/24 04/08/24 04/09/24 16:28 20:24 05:00 WBC 14.2 H RBC 3.12 L Hgb 9.5 L Hct 29.0 L MCV 92.9 MCH 30.4 MCHC 32.8 RDW 14.5 Plt Count 390 H MPV 9.3 Immature Gran % (Auto) 1.1 H Neut % (Auto) 59.9 Lymph % (Auto) 20.8 [place] % (Auto) 8.9 H Eos % (Auto) 8.7 H Baso % (Auto) 0.6 Lymph # (Auto) 2.96 [place] # (Auto) 1.3 H Eos # (Auto) 1.2 H Baso # (Auto) 0.1 Abs Immat Gran (auto) 0.15 H Absolute Neuts (auto) 8.5 H Absolute Nucleated RBC 0.000 Nucleated RBC % 0.0 Sodium 138 Potassium 3.4 Chloride 112 H Carbon Dioxide 25 Anion Gap 1 L BUN 14 Creatinine 1.00 Estim Creat Clear Calc 65 Estimated GFR 56 L Glucose 210 H POC Capillary Glucose 259 H 182 H Calcium 8.2 L Magnesium 1.3 L Total Bilirubin 0.3 AST 17 ALT 9 Alkaline Phosphatase 93 Total Protein 6.0 L Albumin 2.4 L Vancomycin Trough 15.7
[2024-04-09 14:00] VITALS: BP 121/51; PULSE 88; RESP 18; TEMP 35.8; O2SAT 98
[2024-04-09] MEDS: cefTRIAXone 2 GM/NS 100 ML 2 GM/100 ML BAG IVPB (14:22)
[2024-04-09] MEDS: DIPHENHYDRAMINE 1%/ZINC 0.1% CREAM 30 GM TUBE 1 APPLIC TOPICAL (14:29)
[2024-04-09 16:45] LABS: Glucose Point of Care 198 mg/dl (65-105)
[2024-04-09 20:00] VITALS: PULSE 88; RESP 18; O2SAT 98
[2024-04-09] MEDS: INSULIN GLARGINE (*BKC) 100 UNITS/ML 12 UNITS SUB-Q (21:53)
[2024-04-09 22:00] VITALS: BP 160/77; PULSE 71; RESP 20; TEMP 36.1; O2SAT 95
[2024-04-09 22:03] LABS: Glucose Point of Care 197 mg/dl (65-105)
[2024-04-10] MEDS: metroNIDAZOLE 500 MG/ISO 100ML 500 MG/100 ML BAG 100 MG IVPB ×3 (05:26→21:12)
[2024-04-10 05:59] LABS: Immunochemical Fecal Occult Bl Negative (N)
[2024-04-10 06:00] VITALS: BP 138/69; PULSE 70; RESP 20; TEMP 36; O2SAT 98
[2024-04-10 06:00] LABS: IFOB Positive Control Positive
[2024-04-10] MEDS: VANCOMYCIN 1,750 MG/NS 500 ML 1,750 MG/500 ML BAG 125 MG IVPB (06:25)
[2024-04-10 06:27] LABS: Toxigenic C. Diff NEGATIVE (NEGATIVE)
[2024-04-10 06:42] LABS: Basophils Absolute Auto 0.1 K/mm3 (0.0-0.1); Basophils Percent Auto 0.8 % (0.2-1.2); Eosinophils Absolute Auto 1.2 K/mm3 (0-0.3); Eosinophils Percent Auto 8.5 % (0-4.4); Hematocrit 29.5 % (37.0-47.0); Hemoglobin 9.5 g/dL (12.0-15.0); Immature Granulocyte Absolute 0.15 K/mm3 (0.00-0.031); Lymphocytes Absolute Auto 2.83 K/mm3 (0.9-3.2); Lymphocytes Percent Auto 19.5 % (18.3-44.2); Mean Corpuscular HGB Conc 32.2 g/dl (32-36); Mean Corpuscular Hemoglobin 30.3 pg (26-34); Mean Corpuscular Volume 93.9 fl (80-100); Mean Platelet Volume 9.5 fl (7.4-10.4); Monocytes Percent Auto 7.2 % (2.6-8.5); Neutrophils Absolute Auto 9.1 K/mm3 (1.3-6.7); Platelet Count Result 393 k/mm3 (150-375); Red Blood Count 3.14 M/mm3 (4.2-5.4); Red Cell Distribution Width 14.7 % (11.5-14.5); White Blood Count 14.5 K/mm3 (4.5-10.0)
[2024-04-10 06:51] LABS: Alanine Aminotransferase 9 U/L (6-35); Albumin Level 2.4 g/dL (3.5-5.1); Alkaline Phosphatase 87 U/L (38-126); Anion Gap 3 mmol/L (4-12); Aspartate Amino Transferase 16 U/L (14-36); Bilirubin,Total 0.4 mg/dL (0.2-1.3); Blood Urea Nitrogen 11 mg/dL (7-17); Calcium 8.1 mg/dL (8.4-10.2); Carbon Dioxide 24 mmol/L (22-30); Chloride 112 mmol/L (98-107); Estimated CRCL calculation 59 ml/min; Estimated Glomerular Filt Rate 50; Glucose 160 mg/dL (65-110); Magnesium 1.5 mg/dL (1.6-2.3); Sodium 139 mmol/L (137-145)
[2024-04-10 08:09] LABS: Glucose Point of Care 147 mg/dl (65-105)
[2024-04-10] MEDS: MAGNESIUM SULF 2 GM/WATER 50ML 2 GM/50 ML BAG IVPB (09:37)
[2024-04-10] MEDS: POTASSIUM CHLORIDE 20 MEQ ER TABLET 40 MEQ PO (09:37)
[2024-04-10] MEDS: ATORVASTATIN 40 MG TABLET PO (09:38)
[2024-04-10] MEDS: PANTOPRAZOLE 40 MG TABLET PO ×2 (09:38→20:54)
[2024-04-10] MEDS: THERAPEUTIC MULTIVITAMINS/MINERALS TAB (*BKC) 1 TABLET PO (09:38)
[2024-04-10] MEDS: MICONAZOLE NITRATE 2% CREAM 30 GM TUBE 1 APPLIC TOPICAL ×2 (10:02→20:54)
--- NOTE | 2024-04-10 11:34 | PM.IMPN ---
Progress Note: A&P Assessment and Plan (1) Sepsis: Code(s): A41.9 - Sepsis, unspecified organism Status: Acute Assessment and Plan: Patient presents with weakness and found to have sepsis with tachycardia, leukocytisis and elevated lactic. She received appropriate IV fluids in ED. Source is COVID, UTI and/or parotiditis. Started on Rocephin and Flagyl after Cx collected. May have conjunctivitis but sclera clear so this may be coming from the tear duct; this has improved. WBC worsened and Parotid exam worsened so Vanco added and Rocephin increased 04/03. BCx NGTD. UCx growing EColi. WBC better. Exam much improved and patient feels better Follow on culture results. (2) Anemia: Code(s): D64.9 - Anemia, unspecified Status: Acute Assessment and Plan: Hgb low on admission at 8.6. Hgb was 12 in July. She does take ASA but not Plavix at home. Suspect anemia is from recent fracture and noted ecchymosis. Stool guaiac negative by ED exam. She was having bilious emesis on admission but not felt to be coffee ground. Hgb dropped to 6.0 on 04/02 and transfused 2U PRBCs. Could be acute blood loss and/or Hgb drop from IV fluids. PPI added. Iron studies consistent with anemia of chronic disease. B12/folate normal. Hgb 6.1 04/04 and 2u PRBCs ordered again. GI consulted and appreciate their input. Trend HH and transfuse to a stable Hgb. (3) Acute parotitis: Code(s): K11.21 - Acute sialoadenitis Status: Acute Assessment and Plan: Imaging and exam confirm right parotiditis. Started on Rocephin and Flagyl MRSA nasal swab negative No fevers but WBC higher so Rocephin dose advanced and Vanco added 04/03. Clincially much better and WBC improved. Requested family bring in Lemon drops. (4) Stage 3a chronic kidney disease (CKD): Code(s): N18.31 - Chronic kidney disease, stage 3a Status: Acute Assessment and Plan: Cr normal in 2022. Cr 1.2-1.8 range July 2023 for CVA. Possibly an acute component of contrast induced nephropathy. Here, Cr 1.8 and climbed to 2.1. BUN up to 92; related to occult GI bleed? CKD probably related to DM. ROCIO related to sepsis, UTI, parotiditis, anemia, COVID, [facility]TN CT Abd/pelvis showing cystitis, cortical thinning of the kidneys and a 6.3cm right renal cyst. There is also gas in the bladder and left kidney likely form instrumentation but consider pyelonephritis. UCx growing EColi that is pansensitive. She was given IV fluids and UOP better. Midodrine added for HoTN. Serum bicarb 15 (AG 6) so oral bicarb added Cr down to 1.4 and BUn 50. Serum bicarb improved. Follow renal function, electrolytes and UOP. will stop sodium bicarb tablets (5) UTI (urinary tract infection): Code(s): N39.0 - Urinary tract infection, site not specified Status: Acute Assessment and Plan: UA is consistent with UTI except for moderate squamous cells and relatively asymptomatic. UCx collected. CT scan showing bladder wall thickening c/w cystitis. Also with gas in the bladder and left kidney likely form instrumentation but consider pyelonephritis. Rocephin started. Green placed. UCx growing relatively woods-sensitive EColi. Continue Rocephin. Remove Green (6) LV (left ventricular) mural thrombus: Code(s): I51.3 - Intracardiac thrombosis, not elsewhere classified Status: Acute Assessment and Plan: CT Abd showing a LV thrombus. No hx of CAD or signs of CHF to suggest poor LV function. Echo in July 2023 showing normal LV systolic function with EF 55-60% and grade I diastolic dysfxn. Heparin drip was ordered but never started due to anemia Echo this admission showing LV mildly enlarged with moderately reduced LV systolic fxn with EF 40-45% and diastolic dysfunction. No visualized thrombus in the LV by Echo. Will plan to start GDT if BP allows and renal function continues to improve. held midodrine 04/08 Blood pressure stable will restart small dose of beta-eliazar (7) COVID: Code(s): U07.1 - COVID-19 Status: Acute Assessment and Plan: Patient found to have COVID. She believes she received the COVID vaccine. CT chest showing mild atelectasis. on room air, continue to monitor (8) Fracture, humerus closed: Code(s): S42.309A - Unspecified fracture of shaft of humerus, unspecified arm, initial encounter for closed fracture Status: Inactive Assessment and Plan: Patient with known right humerus fracture that is in 3 parts. This is associated with blood loss and bruising. No BP in right arm. Use sling as needed for comfort ortho consulted (9) Diabetes mellitus: Code(s): E11.9 - Type 2 diabetes mellitus without complications Status: Acute Assessment and Plan: Patient with DM and is poorly controlled with A1c 12.6%. She does not take her insulin at home and rarely checks her glucose. Continue AccuCheks covering with sliding scale. Hypoglycemia protocol available as needed. Continue Lantus (10) Hx of completed stroke: Code(s): Z86.73 - Personal history of transient ischemic attack (TIA), and cerebral infarction without residual deficits Status: Acute Assessment and Plan: Head CT showing old CVAs right occipital, bilateral basal ganglia, right internal capsule and right thalamus. She is on ASA but not on Plavix or lipitor at home Resume ASA when able. Lipitor restarted. Bedside swallow was normal. Started on full liquid diet due to n/v. Advanced to soft and bite sized level 6 . (11) Smoker: Code(s): F17.200 - Nicotine dependence, unspecified, uncomplicated Status: Acute Assessment and Plan: she stopped on stopping smoking Plan DVT prophylaxis - SCDs Code status - Full Subjective Date/time seen: 04/10/24 11:34 Interval history: no overnight events. No new complaints. had dark stool. However occult blood came back negative Review of Systems Review of Systems: All systems reviewed & are unremarkable except as noted in HPI and below Exam Narrative: Gen - NARD HEENT - Right parotid swelling much better. No post-auricular erythema. less tender Chest - Air entry is better and clear to auscultation. CV - RRR S1/S2 Abd - soft. NT/ND - Green secured draining clear yellow urine Ext - no pedal edema. Psych - normal mood and affect. Skin - excoriations right shoulder, posterior neck and up in to posterior hair line. no obvious bedbugs. ecchymosis right upper chest Objective Data Vital Signs Vital Signs: Vital Signs - 24 hr 04/09/24 14:00 04/09/24 20:00 04/09/24 22:00 Temperature 96.5 F L 97.0 F L Pulse Rate 88 88 71 Respiratory Rate 18 18 20 Blood Pressure 121/51 L 160/77 H Pulse Oximetry 98 98 95 Oxygen Delivery Room Air 04/10/24 06:00 Temperature 96.8 F L Pulse Rate 70 Respiratory Rate 20 Blood Pressure 138/69 Pulse Oximetry 98 Oxygen Delivery Intake/Output Intake/Output: Intake & Output 04/07/24 04/08/24 04/09/24 04/10/24 23:59 23:59 23:59 23:59 Intake Total 1989 1300 1860 580 Output Total 800 1025 750 250 Balance 6582 710 3290 330 Meds/Results Medications: Active Medications Generic Name Dose Route Start Last Admin Trade Name Freq PRN Reason Stop Dose Admin Acetaminophen 650 mg 04/02/24 09:53 Acetaminophen 325 Mg Tablet PO Q6H PRN Mild Pain (1-5) Or Fever Hydrocodone Bitart/Acetaminophen 1 tab 04/02/24 09:53 04/09/24 21:52 Hydrocodone/Acetaminophen (*Crx) 5-325 Mg Tablet PO 1 tab Q6H PRN Administration Pain Rated 6 or Greater Atorvastatin Calcium 40 mg 04/03/24 09:00 04/10/24 09:38 Atorvastatin 40 Mg Tablet PO 40 mg DAILY PRERNA Administration Dextrose 12.5 gm 04/02/24 07:07 Dextrose 50% 25 Gm/50 Ml Syringe IV PUSH PRN PRN Hypoglycemia Protocol Glucagon 1 mg 04/02/24 07:07 Glucagon For Inj 1 Mg Vial IM PRN PRN Hypoglycemia Protocol Glucose 15 gm 04/02/24 07:07 Glucose Oral Gel 15 Gm Of Glucse In 37.5 Gm Tube PO PRN PRN Hypoglycemia Protocol Metronidazole 500 mg in 100 mls @ 100 mls/hr 04/02/24 14:00 04/10/24 06:26 Flagyl 500 Mg/Iso Soln 100 Ml IVPB Infused Q8HR PRERNA Infusion Dextrose 1,000 mls @ 100 mls/hr 04/02/24 07:07 Dextrose 5% 1,000 Ml IVPB PRN PRN Hypoglycemia Protocol Ceftriaxone Sodium 2 gm in 100 mls @ 200 mls/hr 04/03/24 15:00 04/09/24 14:52 Rocephin 2 Gm/Ns 100 Ml IVPB Infused Q24H PRERNA Infusion Vancomycin HCl 1,750 mg in 500 mls @ 250 mls/hr 04/09/24 06:00 04/10/24 06:25 Vancomycin 1,750 Mg/Ns 500 Ml IVPB 125 mls/hr Q24H PRERNA Administration Insulin Aspart 4 - 8 units 04/02/24 08:00 04/10/24 09:33 Insulin Aspart (*Bkc) 100 Units/Ml SUB-Q Not Given TIDWM [facility] Protocol Insulin Glargine 12 units 04/04/24 21:00 04/09/24 21:53 Insulin Glargine (*Bkc) 100 Units/Ml SUB-Q 12 units HS PRERNA Administration Miconazole Nitrate 1 applic 04/03/24 21:00 04/10/24 10:02 Miconazole Nitrate 2% Cream 30 Gm Tube TOPICAL 1 applic Q12HR PRERNA Administration Midodrine 5 mg 04/03/24 17:00 04/08/24 12:05 Midodrine Hcl 2.5 Mg Tablet PO 5 mg TID PRERNA Administration Multivitamins/Calcium 1 tablet 04/07/24 09:00 04/10/24 09:38 Therapeutic Multivitamins/Minerals Tab (*Bkc) PO 1 tablet DAILY PRERNA Administration Ondansetron HCl 4 mg 04/02/24 09:53 04/03/24 10:47 Ondansetron Inj 4 Mg/2 Ml Vial IV PUSH 4 mg Q6H PRN Administration Nausea And Vomiting Pantoprazole Sodium 40 mg 04/06/24 09:55 04/10/24 09:38 Pantoprazole 40 Mg Tablet PO 40 mg Q12HR PRERNA Administration Zinc Acetate/Diphenhydramine 1 applic 04/03/24 14:15 04/09/24 14:29 Diphenhydramine 1%/Zinc 0.1% Cream 30 Gm Tube TOPICAL 1 applic QID PRN Administration Itching Radiology Results: ITS Impressions Humerus X-Ray 04/01/24 21:37 IMPRESSION: 1. Comminuted three-part fracture of proximal right humerus. Head CT 04/01/24 21:47 IMPRESSION: 1. 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 2. Mild nonspecific cerebral white matter disease, which likely represents chronic small vessel ischemic disease. 3. Right-sided parotiditis. Cervical Spine CT 04/01/24 21:50 IMPRESSION: 1. No fracture. 2. Mild cervical spondylosis. 3. Right-sided parotiditis. 4. Mild bilateral cervical lymphadenopathy, likely reactive. Chest CT 04/01/24 21:56 IMPRESSION: 1. Small pericardial effusion. 2. Comminuted fracture of proximal right humerus. Abdomen/Pelvis CT 04/02/24 06:28 IMPRESSION: 1. Cystitis. 2. Thrombus in left ventricular apex of the heart. Labs Labs: Laboratory Results - last 24 hr 04/09/24 04/09/24 04/10/24 16:43 21:21 05:24 WBC RBC Hgb Hct MCV MCH MCHC RDW Plt Count MPV Immature Gran % (Auto) Neut % (Auto) Lymph % (Auto) [place] % (Auto) Eos % (Auto) Baso % (Auto) Lymph # (Auto) [place] # (Auto) Eos # (Auto) Baso # (Auto) Abs Immat Gran (auto) Absolute Neuts (auto) Absolute Nucleated RBC Nucleated RBC % Sodium Potassium Chloride Carbon Dioxide Anion Gap BUN Creatinine Estim Creat Clear Calc Estimated GFR Glucose POC Capillary Glucose 198 H 197 H Calcium Magnesium Total Bilirubin AST ALT Alkaline Phosphatase Total Protein Albumin Stl Occult Blood (IFOB) Negative C. difficile (PCR) Negative Blood Type Antibody Screen 04/10/24 04/10/24 06:20 07:49 WBC 14.5 H RBC 3.14 L Hgb 9.5 L Hct 29.5 L MCV 93.9 MCH 30.3 MCHC 32.2 RDW 14.7 H Plt Count 393 H MPV 9.5 Immature Gran % (Auto) 1.0 H Neut % (Auto) 63.0 Lymph % (Auto) 19.5 [place] % (Auto) 7.2 Eos % (Auto) 8.5 H Baso % (Auto) 0.8 Lymph # (Auto) 2.83 [place] # (Auto) 1.0 H Eos # (Auto) 1.2 H Baso # (Auto) 0.1 Abs Immat Gran (auto) 0.15 H Absolute Neuts (auto) 9.1 H Absolute Nucleated RBC 0.000 Nucleated RBC % 0.0 Sodium 139 Potassium 3.0 L Chloride 112 H Carbon Dioxide 24 Anion Gap 3 L BUN 11 Creatinine 1.10 H Estim Creat Clear Calc 59 Estimated GFR 50 L Glucose 160 H POC Capillary Glucose 147 H Calcium 8.1 L Magnesium 1.5 L Total Bilirubin 0.4 AST 16 ALT 9 Alkaline Phosphatase 87 Total Protein 6.0 L Albumin 2.4 L Stl Occult Blood (IFOB) C. difficile (PCR) Blood Type O Negative Antibody Screen Negative
[2024-04-10 12:22] LABS: Glucose Point of Care 200 mg/dl (65-105)
[2024-04-10 12:39] VITALS: PULSE 72
[2024-04-10] MEDS: METOPROLOL SUCCINATE EXT REL 12.5 MG TABCR PO (12:39)
[2024-04-10] MEDS: HYDROcodone/acetaminophen (*CRX) 5-325 MG TABLET 1 TAB PO (13:09)
[2024-04-10 14:00] VITALS: BP 126/76; PULSE 120; RESP 20; TEMP 36.5; O2SAT 96
[2024-04-10] MEDS: cefTRIAXone 2 GM/NS 100 ML 2 GM/100 ML BAG IVPB (15:55)
[2024-04-10 16:53] LABS: Glucose Point of Care 159 mg/dl (65-105)
[2024-04-10 20:40] LABS: Glucose Point of Care 166 mg/dl (65-105)
[2024-04-10 20:50] VITALS: PULSE 120; RESP 20; O2SAT 96
[2024-04-10] MEDS: INSULIN GLARGINE (*BKC) 100 UNITS/ML 12 UNITS SUB-Q (20:54)
[2024-04-10 22:00] VITALS: BP 126/78; PULSE 69; RESP 20; TEMP 36.2; O2SAT 100
[2024-04-11] MEDS: metroNIDAZOLE 500 MG/ISO 100ML 500 MG/100 ML BAG 100 MG IVPB (05:11)
[2024-04-11 06:00] VITALS: BP 141/73; PULSE 79; RESP 20; TEMP 36.1; O2SAT 94
[2024-04-11] MEDS: VANCOMYCIN 1,750 MG/NS 500 ML 1,750 MG/500 ML BAG 125 MG IVPB (06:32)
[2024-04-11 07:02] LABS: Basophils Absolute Auto 0.1 K/mm3 (0.0-0.1); Basophils Percent Auto 0.7 % (0.2-1.2); Eosinophils Absolute Auto 1.1 K/mm3 (0-0.3); Eosinophils Percent Auto 9.8 % (0-4.4); Hematocrit 29.8 % (37.0-47.0); Hemoglobin 9.3 g/dL (12.0-15.0); Immature Granulocyte Absolute 0.08 K/mm3 (0.00-0.031); Immature Granulocyte Percent A 0.7 % (0-0.5); Lymphocytes Absolute Auto 2.43 K/mm3 (0.9-3.2); Lymphocytes Percent Auto 22.7 % (18.3-44.2); Mean Corpuscular HGB Conc 31.2 g/dl (32-36); Mean Corpuscular Hemoglobin 30.2 pg (26-34); Mean Corpuscular Volume 96.8 fl (80-100); Mean Platelet Volume 9.4 fl (7.4-10.4); Monocytes Absolute Auto 0.8 K/mm3 (0.1-0.6); Neutrophils Absolute Auto 6.3 K/mm3 (1.3-6.7); Neutrophils Percent Auto 59.1 % (45.5-73.1); Platelet Count Result 400 k/mm3 (150-375); Red Blood Count 3.08 M/mm3 (4.2-5.4); Red Cell Distribution Width 14.9 % (11.5-14.5); White Blood Count 10.7 K/mm3 (4.5-10.0)
[2024-04-11 07:28] LABS: Alanine Aminotransferase 10 U/L (6-35); Albumin Level 2.5 g/dL (3.5-5.1); Alkaline Phosphatase 87 U/L (38-126); Anion Gap 2 mmol/L (4-12); Aspartate Amino Transferase 18 U/L (14-36); Bilirubin,Total 0.3 mg/dL (0.2-1.3); Blood Urea Nitrogen 10 mg/dL (7-17); Calcium 8.3 mg/dL (8.4-10.2); Carbon Dioxide 25 mmol/L (22-30); Chloride 112 mmol/L (98-107); Estimated CRCL calculation 55 ml/min; Estimated Glomerular Filt Rate 45; Glucose 129 mg/dL (65-110); Magnesium 1.7 mg/dL (1.6-2.3); Sodium 139 mmol/L (137-145)
[2024-04-11 07:32] LABS: Glucose Point of Care 130 mg/dl (65-105)
[2024-04-11 07:46] LABS: Potassium 3.4 mmol/L (3.4-5.0)
[2024-04-11] MEDS: METOPROLOL SUCCINATE EXT REL 12.5 MG TABCR PO (09:01)
[2024-04-11] MEDS: THERAPEUTIC MULTIVITAMINS/MINERALS TAB (*BKC) 1 TABLET PO (09:01)
[2024-04-11] MEDS: PANTOPRAZOLE 40 MG TABLET PO ×2 (09:01→20:37)
[2024-04-11] MEDS: ATORVASTATIN 40 MG TABLET PO (09:02)
[2024-04-11] MEDS: MICONAZOLE NITRATE 2% CREAM 30 GM TUBE 1 APPLIC TOPICAL ×2 (09:02→20:37)
[2024-04-11] MEDS: MAGNESIUM OXIDE 400 MG TABLET PO (09:02)
[2024-04-11] MEDS: POTASSIUM CHLORIDE 20 MEQ ER TABLET PO (09:02)
--- NOTE | 2024-04-11 11:05 | PCNWS ---
Weekly nutritional screen. Patient is tolerating current Diabetic, soft and bite sized level 6 diet with adequate intake per pt and nurse. No weight loss reported. Pt not interested in supplements. No nutritional recommendations at this time.
[2024-04-11 11:28] LABS: Glucose Point of Care 198 mg/dl (65-105)
[2024-04-11] MEDS: AMOXICILLIN/CLAVULANATE K 875-125 MG TAB 1 TABLET PO ×2 (12:29→20:37)
[2024-04-11] MEDS: DOXYCYCLINE HYCLATE 100 MG TABLET PO ×2 (12:29→20:37)
--- NOTE | 2024-04-11 12:54 | PM.IMPN ---
Progress Note: A&P Assessment and Plan (1) Sepsis: Code(s): A41.9 - Sepsis, unspecified organism Status: Acute Assessment and Plan: Patient presents with weakness and found to have sepsis with tachycardia, leukocytisis and elevated lactic. She received appropriate IV fluids in ED. Source is COVID, UTI and/or parotiditis. Started on Rocephin and Flagyl after Cx collected. May have conjunctivitis but sclera clear so this may be coming from the tear duct; this has improved. WBC worsened and Parotid exam worsened so Vanco added and Rocephin increased 04/03. BCx NGTD. UCx growing EColi. WBC better. Exam much improved and patient feels better Follow on culture results. Will switch to Augmentin and doxycycline to finish the course (2) Anemia: Code(s): D64.9 - Anemia, unspecified Status: Acute Assessment and Plan: Hgb low on admission at 8.6. Hgb was 12 in July. She does take ASA but not Plavix at home. Suspect anemia is from recent fracture and noted ecchymosis. Stool guaiac negative by ED exam. She was having bilious emesis on admission but not felt to be coffee ground. Hgb dropped to 6.0 on 04/02 and transfused 2U PRBCs. Could be acute blood loss and/or Hgb drop from IV fluids. PPI added. Iron studies consistent with anemia of chronic disease. B12/folate normal. Hgb 6.1 04/04 and 2u PRBCs ordered again. GI consulted and appreciate their input. Trend HH and transfuse to a stable Hgb. (3) Acute parotitis: Code(s): K11.21 - Acute sialoadenitis Status: Acute Assessment and Plan: Imaging and exam confirm right parotiditis. Started on Rocephin and Flagyl MRSA nasal swab negative No fevers but WBC higher so Rocephin dose advanced and Vanco added 04/03. Clincially much better and WBC improved. Requested family bring in Lemon drops. (4) Stage 3a chronic kidney disease (CKD): Code(s): N18.31 - Chronic kidney disease, stage 3a Status: Acute Assessment and Plan: Cr normal in 2022. Cr 1.2-1.8 range July 2023 for CVA. Possibly an acute component of contrast induced nephropathy. Here, Cr 1.8 and climbed to 2.1. BUN up to 92; related to occult GI bleed? CKD probably related to DM. ROCIO related to sepsis, UTI, parotiditis, anemia, COVID, HoTN CT Abd/pelvis showing cystitis, cortical thinning of the kidneys and a 6.3cm right renal cyst. There is also gas in the bladder and left kidney likely form instrumentation but consider pyelonephritis. UCx growing EColi that is pansensitive. She was given IV fluids and UOP better. Midodrine added for HoTN. Serum bicarb 15 (AG 6) so oral bicarb added Cr down to 1.4 and BUn 50. Serum bicarb improved. Follow renal function, electrolytes and UOP. will stop sodium bicarb tablets (5) UTI (urinary tract infection): Code(s): N39.0 - Urinary tract infection, site not specified Status: Acute Assessment and Plan: UA is consistent with UTI except for moderate squamous cells and relatively asymptomatic. UCx collected. CT scan showing bladder wall thickening c/w cystitis. Also with gas in the bladder and left kidney likely form instrumentation but consider pyelonephritis. Rocephin started. Green placed. UCx growing relatively woods-sensitive EColi. Continue Rocephin. Remove Green (6) LV (left ventricular) mural thrombus: Code(s): I51.3 - Intracardiac thrombosis, not elsewhere classified Status: Acute Assessment and Plan: CT Abd showing a LV thrombus. No hx of CAD or signs of CHF to suggest poor LV function. Echo in July 2023 showing normal LV systolic function with EF 55-60% and grade I diastolic dysfxn. Heparin drip was ordered but never started due to anemia Echo this admission showing LV mildly enlarged with moderately reduced LV systolic fxn with EF 40-45% and diastolic dysfunction. No visualized thrombus in the LV by Echo. Will plan to start GDT if BP allows and renal function continues to improve. held midodrine 04/08 Blood pressure stable will r started beta-eliazar which she is tolerating well. Add losartan (7) COVID: Code(s): U07.1 - COVID-19 Status: Acute Assessment and Plan: Patient found to have COVID. She believes she received the COVID vaccine. CT chest showing mild atelectasis. on room air, continue to monitor (8) Fracture, humerus closed: Code(s): S42.309A - Unspecified fracture of shaft of humerus, unspecified arm, initial encounter for closed fracture Status: Inactive Assessment and Plan: Patient with known right humerus fracture that is in 3 parts. This is associated with blood loss and bruising. No BP in right arm. Use sling as needed for comfort ortho consulted (9) Diabetes mellitus: Code(s): E11.9 - Type 2 diabetes mellitus without complications Status: Acute Assessment and Plan: Patient with DM and is poorly controlled with A1c 12.6%. She does not take her insulin at home and rarely checks her glucose. Continue AccuCheks covering with sliding scale. Hypoglycemia protocol available as needed. Continue Lantus (10) Hx of completed stroke: Code(s): Z86.73 - Personal history of transient ischemic attack (TIA), and cerebral infarction without residual deficits Status: Acute Assessment and Plan: Head CT showing old CVAs right occipital, bilateral basal ganglia, right internal capsule and right thalamus. She is on ASA but not on Plavix or lipitor at home Resume ASA when able. Lipitor restarted. Bedside swallow was normal. Started on full liquid diet due to n/v. Advanced to soft and bite sized level 6 . (11) Smoker: Code(s): F17.200 - Nicotine dependence, unspecified, uncomplicated Status: Acute Assessment and Plan: she stopped on stopping smoking Plan DVT prophylaxis - SCDs Code status - Full Subjective Date/time seen: 04/11/24 12:54 Interval history: No overnight events. Working with therapy. Off COVID isolation now. Remains on room air. Pain controlled. Review of Systems Review of Systems: All systems reviewed & are unremarkable except as noted in HPI and below Exam Narrative: Gen - NARD HEENT - Right parotid swelling much better. No post-auricular erythema. less tender Chest - Air entry is better and clear to auscultation. CV - RRR S1/S2 Abd - soft. NT/ND - Green secured draining clear yellow urine Ext - no pedal edema. Psych - normal mood and affect. Skin - excoriations right shoulder, posterior neck and up in to posterior hair line. no obvious bedbugs. ecchymosis right upper chest Objective Data Vital Signs Vital Signs: Vital Signs - 24 hr 04/10/24 14:00 04/10/24 20:50 04/10/24 22:00 Temperature 97.7 F 97.2 F L Pulse Rate 120 H 120 H 69 Respiratory Rate 20 20 20 Blood Pressure 126/76 126/78 Pulse Oximetry 96 96 100 Oxygen Delivery Room Air 04/11/24 06:00 04/11/24 08:00 Temperature 96.9 F L Pulse Rate 79 Respiratory Rate 20 Blood Pressure 141/73 H Pulse Oximetry 94 Oxygen Delivery Room Air Intake/Output Intake/Output: Intake & Output 04/08/24 04/09/24 04/10/24 04/11/24 23:59 23:59 23:59 23:59 Intake Total 1300 1860 2910 886 Output Total 1025 750 250 Balance 275 1110 2660 886 Meds/Results Medications: Active Medications Generic Name Dose Route Start Last Admin Trade Name Freq PRN Reason Stop Dose Admin Acetaminophen 650 mg 04/02/24 09:53 Acetaminophen 325 Mg Tablet PO Q6H PRN Mild Pain (1-5) Or Fever Hydrocodone Bitart/Acetaminophen 1 tab 04/02/24 09:53 04/10/24 13:09 Hydrocodone/Acetaminophen (*Crx) 5-325 Mg Tablet PO 1 tab Q6H PRN Administration Pain Rated 6 or Greater Amoxicillin/Clavulanate Potassium 1 tablet 04/11/24 12:00 04/11/24 12:29 Amoxicillin/Clavulanate K 875-125 Mg Tab PO 1 tablet Q12HR PRERNA Administration Atorvastatin Calcium 40 mg 04/03/24 09:00 04/11/24 09:02 Atorvastatin 40 Mg Tablet PO 40 mg DAILY PRERNA Administration Dextrose 12.5 gm 04/02/24 07:07 Dextrose 50% 25 Gm/50 Ml Syringe IV PUSH PRN PRN Hypoglycemia Protocol Doxycycline Hyclate 100 mg 04/11/24 12:00 04/11/24 12:29 Doxycycline Hyclate 100 Mg Tablet PO 100 mg Q12HR PRERNA Administration Glucagon 1 mg 04/02/24 07:07 Glucagon For Inj 1 Mg Vial IM PRN PRN Hypoglycemia Protocol Glucose 15 gm 04/02/24 07:07 Glucose Oral Gel 15 Gm Of Glucse In 37.5 Gm Tube PO PRN PRN Hypoglycemia Protocol Dextrose 1,000 mls @ 100 mls/hr 04/02/24 07:07 Dextrose 5% 1,000 Ml IVPB PRN PRN Hypoglycemia Protocol Insulin Aspart 4 - 8 units 12/21/24 08:00 04/11/24 11:35 Insulin Aspart (*Bkc) 100 Units/Ml SUB-Q Not Given TIDWM [facility] Protocol Insulin Glargine 12 units 04/04/24 21:00 04/10/24 20:54 Insulin Glargine (*Bkc) 100 Units/Ml SUB-Q 12 units HS PRERNA Administration Metoprolol Succinate 12.5 mg 04/10/24 11:40 04/11/24 09:01 Metoprolol Succinate Ext Rel 12.5 Mg Tabcr PO 12.5 mg QAM PRERNA Administration Miconazole Nitrate 1 applic 04/03/24 21:00 04/11/24 09:02 Miconazole Nitrate 2% Cream 30 Gm Tube TOPICAL 1 applic Q12HR PRERNA Administration Midodrine 5 mg 04/03/24 17:00 04/08/24 12:05 Midodrine Hcl 2.5 Mg Tablet PO 5 mg TID PRERNA Administration Miscellaneous Information 1 each 04/11/24 00:01 [place] Needs To Be Renewed Or It Will Automatically Discontinue. XX 05/11/24 00:00 CLARIFY [facility] Multivitamins/Calcium 1 tablet 04/07/24 09:00 04/11/24 09:01 Therapeutic Multivitamins/Minerals Tab (*Bkc) PO 1 tablet DAILY PRERNA Administration Ondansetron HCl 4 mg 04/02/24 09:53 04/03/24 10:47 Ondansetron Inj 4 Mg/2 Ml Vial IV PUSH 4 mg Q6H PRN Administration Nausea And Vomiting Pantoprazole Sodium 40 mg 04/06/24 09:55 04/11/24 09:01 Pantoprazole 40 Mg Tablet PO 40 mg Q12HR PRERNA Administration Zinc Acetate/Diphenhydramine 1 applic 04/03/24 14:15 04/09/24 14:29 Diphenhydramine 1%/Zinc 0.1% Cream 30 Gm Tube TOPICAL 1 applic QID PRN Administration Itching Radiology Results: ITS Impressions Humerus X-Ray 04/01/24 21:37 IMPRESSION: 1. Comminuted three-part fracture of proximal right humerus. Head CT 04/01/24 21:47 IMPRESSION: 1. 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 2. Mild nonspecific cerebral white matter disease, which likely represents chronic small vessel ischemic disease. 3. Right-sided parotiditis. Cervical Spine CT 04/01/24 21:50 IMPRESSION: 1. No fracture. 2. Mild cervical spondylosis. 3. Right-sided parotiditis. 4. Mild bilateral cervical lymphadenopathy, likely reactive. Chest CT 04/01/24 21:56 IMPRESSION: 1. Small pericardial effusion. 2. Comminuted fracture of proximal right humerus. Abdomen/Pelvis CT 04/02/24 06:28 IMPRESSION: 1. Cystitis. 2. Thrombus in left ventricular apex of the heart. Labs Labs: Laboratory Results - last 24 hr 04/10/24 04/10/24 04/11/24 16:30 20:28 06:45 WBC 10.7 H RBC 3.08 L Hgb 9.3 L Hct 29.8 L MCV 96.8 MCH 30.2 MCHC 31.2 L RDW 14.9 H Plt Count 400 H MPV 9.4 Immature Gran % (Auto) 0.7 H Neut % (Auto) 59.1 Lymph % (Auto) 22.7 [place] % (Auto) 7.0 Eos % (Auto) 9.8 H Baso % (Auto) 0.7 Lymph # (Auto) 2.43 [place] # (Auto) 0.8 H Eos # (Auto) 1.1 H Baso # (Auto) 0.1 Abs Immat Gran (auto) 0.08 H Absolute Neuts (auto) 6.3 Absolute Nucleated RBC 0.000 Nucleated RBC % 0.0 Sodium 139 Potassium 3.4 Chloride 112 H Carbon Dioxide 25 Anion Gap 2 L BUN 10 Creatinine 1.20 H Estim Creat Clear Calc 55 Estimated GFR 45 L Glucose 129 H POC Capillary Glucose 159 H 166 H Calcium 8.3 L Magnesium 1.7 Total Bilirubin 0.3 AST 18 ALT 10 Alkaline Phosphatase 87 Total Protein 7.0 Albumin 2.5 L 04/11/24 04/11/24 07:29 11:25 WBC RBC Hgb Hct MCV MCH MCHC RDW Plt Count MPV Immature Gran % (Auto) Neut % (Auto) Lymph % (Auto) [place] % (Auto) Eos % (Auto) Baso % (Auto) Lymph # (Auto) [place] # (Auto) Eos # (Auto) Baso # (Auto) Abs Immat Gran (auto) Absolute Neuts (auto) Absolute Nucleated RBC Nucleated RBC % Sodium Potassium Chloride Carbon Dioxide Anion Gap BUN Creatinine Estim Creat Clear Calc Estimated GFR Glucose POC Capillary Glucose 130 H 198 H Calcium Magnesium Total Bilirubin AST ALT Alkaline Phosphatase Total Protein Albumin
[2024-04-11 14:00] VITALS: BP 139/65; PULSE 70; RESP 16; TEMP 36.1; O2SAT 100
[2024-04-11 16:27] LABS: Glucose Point of Care 182 mg/dl (65-105)
[2024-04-11 20:35] VITALS: PULSE 70; RESP 16; O2SAT 100
[2024-04-11] MEDS: INSULIN GLARGINE (*BKC) 100 UNITS/ML 12 UNITS SUB-Q (20:37)
[2024-04-11 20:55] VITALS: BP 130/87; PULSE 73; RESP 22; TEMP 37; O2SAT 98
[2024-04-11 21:14] LABS: Glucose Point of Care 195 mg/dl (65-105)
[2024-04-12 04:00] VITALS: BP 135/60; PULSE 73; RESP 18; TEMP 37.2; O2SAT 93
[2024-04-12 07:30] LABS: Basophils Absolute Auto 0.1 K/mm3 (0.0-0.1); Basophils Percent Auto 0.6 % (0.2-1.2); Eosinophils Absolute Auto 1.1 K/mm3 (0-0.3); Eosinophils Percent Auto 8.7 % (0-4.4); Hematocrit 30.4 % (37.0-47.0); Hemoglobin 9.5 g/dL (12.0-15.0); Immature Granulocyte Absolute 0.07 K/mm3 (0.00-0.031); Immature Granulocyte Percent A 0.6 % (0-0.5); Lymphocytes Absolute Auto 2.05 K/mm3 (0.9-3.2); Lymphocytes Percent Auto 16.9 % (18.3-44.2); Mean Corpuscular HGB Conc 31.3 g/dl (32-36); Mean Corpuscular Hemoglobin 29.8 pg (26-34); Mean Corpuscular Volume 95.3 fl (80-100); Mean Platelet Volume 9.7 fl (7.4-10.4); Monocytes Absolute Auto 0.8 K/mm3 (0.1-0.6); Monocytes Percent Auto 6.5 % (2.6-8.5); Neutrophils Absolute Auto 8.1 K/mm3 (1.3-6.7); Neutrophils Percent Auto 66.7 % (45.5-73.1); Platelet Count Result 383 k/mm3 (150-375); Red Blood Count 3.19 M/mm3 (4.2-5.4); Red Cell Distribution Width 14.8 % (11.5-14.5); White Blood Count 12.1 K/mm3 (4.5-10.0)
[2024-04-12 07:43] LABS: Glucose Point of Care 173 mg/dl (65-105)
[2024-04-12 07:44] LABS: Alanine Aminotransferase 9 U/L (6-35); Albumin Level 2.4 g/dL (3.5-5.1); Alkaline Phosphatase 87 U/L (38-126); Anion Gap 2 mmol/L (4-12); Aspartate Amino Transferase 17 U/L (14-36); Bilirubin,Total 0.4 mg/dL (0.2-1.3); Blood Urea Nitrogen 10 mg/dL (7-17); Calcium 8.2 mg/dL (8.4-10.2); Carbon Dioxide 24 mmol/L (22-30); Chloride 110 mmol/L (98-107); Estimated CRCL calculation 55 ml/min; Estimated Glomerular Filt Rate 45; Glucose 157 mg/dL (65-110); Magnesium 1.6 mg/dL (1.6-2.3); Potassium 3.6 mmol/L (3.4-5.0); Sodium 136 mmol/L (137-145)
[2024-04-12] MEDS: METOPROLOL SUCCINATE EXT REL 12.5 MG TABCR PO (09:17)
[2024-04-12] MEDS: THERAPEUTIC MULTIVITAMINS/MINERALS TAB (*BKC) 1 TABLET PO (09:17)
[2024-04-12] MEDS: AMOXICILLIN/CLAVULANATE K 875-125 MG TAB 1 TABLET PO ×2 (09:17→21:31)
[2024-04-12] MEDS: DOXYCYCLINE HYCLATE 100 MG TABLET PO ×2 (09:17→21:31)
[2024-04-12] MEDS: ATORVASTATIN 40 MG TABLET PO (09:17)
[2024-04-12] MEDS: MICONAZOLE NITRATE 2% CREAM 30 GM TUBE 1 APPLIC TOPICAL ×2 (09:18→21:32)
[2024-04-12] MEDS: PANTOPRAZOLE 40 MG TABLET PO ×2 (09:18→21:31)
[2024-04-12] MEDS: LOSARTAN POTASSIUM 25 MG TABLET PO (09:18)
[2024-04-12] MEDS: ACETAMINOPHEN 325 MG TABLET 650 MG PO (11:40)
[2024-04-12 11:59] LABS: Glucose Point of Care 227 mg/dl (65-105)
[2024-04-12] MEDS: INSULIN ASPART (*BKC) 100 UNITS/ML SUB-Q ×2 (12:00→17:23)
--- NOTE | 2024-04-12 12:24 | P.PNIM_ITS ---
Progress Note: A&P Assessment and Plan (1) Sepsis: Code(s): A41.9 - Sepsis, unspecified organism Status: Acute Assessment and Plan: Patient presents with weakness and found to have sepsis with tachycardia, leuk ocytisis and elevated lactic. She received appropriate IV fluids in ED. Source is COVID, UTI and/or parotiditis. Started on Rocephin and Flagyl after Cx collected. May have conjunctivitis but sclera clear so this may be coming from the tear duct; this has improved. WBC worsened and Parotid exam worsened so Vanco added and Rocephin increased 04/03. BCx NGTD. UCx growing EColi. WBC better. Exam much improved and patient feels better Follow on culture results. Will switch to Augmentin and doxycycline to finish the course (2) Anemia: Code(s): D64.9 - Anemia, unspecified Status: Acute Assessment and Plan: Hgb low on admission at 8.6. Hgb was 12 in July. She does take ASA but not Plavix at home. Suspect anemia is from recent fracture and noted ecchymosis. Stool guaiac negative by ED exam. She was having bilious emesis on admission but not felt to be coffee ground. Hgb dropped to 6.0 on 04/02 and transfused 2U PRBCs. Could be acute blood loss and/or Hgb drop from IV fluids. PPI added. Iron studies consistent with anemia of chronic disease. B12/folate normal. Hgb 6.1 04/04 and 2u PRBCs ordered again. GI consulted and appreciate their input. Trend HH and transfuse to a stable Hgb. (3) Acute parotitis: Code(s): K11.21 - Acute sialoadenitis Status: Acute Assessment and Plan: Imaging and exam confirm right parotiditis. Started on Rocephin and Flagyl MRSA nasal swab negative No fevers but WBC higher so Rocephin dose advanced and Vanco added 04/03. Clincially much better and WBC improved. Requested family bring in Lemon drops. (4) Stage 3a chronic kidney disease (CKD): Code(s): N18.31 - Chronic kidney disease, stage 3a Status: Acute Assessment and Plan: Cr normal in 2022. Cr 1.2-1.8 range July 2023 for CVA. Possibly an acute component of contrast induced nephropathy. Here, Cr 1.8 and climbed to 2.1. BUN up to 92; related to occult GI bleed? CKD probably related to DM. ROCIO related to sepsis, UTI, parotiditis, anemia, COVID, [facility]TN CT Abd/pelvis showing cystitis, cortical thinning of the kidneys and a 6.3cm right renal cyst. There is also gas in the bladder and left kidney likely form instrumentation but consider pyelonephritis. UCx growing EColi that is pansensitive. She was given IV fluids and UOP better. Midodrine added for HoTN. Serum bicarb 15 (AG 6) so oral bicarb added Cr down to 1.4 and BUn 50. Serum bicarb improved. Follow renal function, electrolytes and UOP. Discontinued Sodium bicarb tablets (5) UTI (urinary tract infection): Code(s): N39.0 - Urinary tract infection, site not specified Status: Acute Assessment and Plan: UA is consistent with UTI except for moderate squamous cells and relatively asymptomatic. UCx collected. CT scan showing bladder wall thickening c/w cystitis. Also with gas in the bladder and left kidney likely form instrumentation but consider pyelonephritis. Rocephin started. Green placed. UCx growing relatively woods-sensitive EColi. Continue Rocephin. Removed Green (6) LV (left ventricular) mural thrombus: Code(s): I51.3 - Intracardiac thrombosis, not elsewhere classified Status: Acute Assessment and Plan: CT Abd showing a LV thrombus. No hx of CAD or signs of CHF to suggest poor LV function. Echo in July 2023 showing normal LV systolic function with EF 55-60% and grade I diastolic dysfxn. Heparin drip was ordered but never started due to anemia Echo this admission showing LV mildly enlarged with moderately reduced LV syst olic fxn with EF 40-45% and diastolic dysfunction. No visualized thrombus in the LV by Echo. Will plan to start GDT if BP allows and renal function continues to improve. held midodrine 04/08 Blood pressure stable will r started beta-eliazar which she is tolerating well. Add losartan (7) COVID: Code(s): U07.1 - COVID-19 Status: Acute Assessment and Plan: Patient found to have COVID. She believes she received the COVID vaccine. CT chest showing mild atelectasis. on room air, continue to monitor (8) Fracture, humerus closed: Code(s): S42.309A - Unspecified fracture of shaft of humerus, unspecified arm, initial encounter for closed fracture Status: Inactive Assessment and Plan: Patient with known right humerus fracture that is in 3 parts. This is associated with blood loss and bruising. No BP in right arm. Use sling as needed for comfort ortho consulted (9) Diabetes mellitus: Code(s): E11.9 - Type 2 diabetes mellitus without complications Status: Acute Assessment and Plan: Patient with DM and is poorly controlled with A1c 12.6%. She does not take her insulin at home and rarely checks her glucose. Continue AccuCheks covering with sliding scale. Hypoglycemia protocol available as needed. Continue Lantus (10) Hx of completed stroke: Code(s): Z86.73 - Personal history of transient ischemic attack (TIA), and cerebral infarction without residual deficits Status: Acute Assessment and Plan: Head CT showing old CVAs right occipital, bilateral basal ganglia, right internal capsule and right thalamus. She is on ASA but not on Plavix or lipitor at home Resume ASA when able. Lipitor restarted. Bedside swallow was normal. Started on full liquid diet due to n/v. Advanced to soft and bite sized level 6 . (11) Smoker: Code(s): F17.200 - Nicotine dependence, unspecified, uncomplicated Status: Acute Assessment and Plan: she stopped on stopping smoking Plan DVT prophylaxis - SCDs Code status - Full Disposition: Awaiting placement Subjective Date/time seen: 04/12/24 12:24 Interval history: No overnight events. Working with therapy. Off COVID isolation now. Remains on room air. Pain controlled. Review of Systems Review of Systems: All systems reviewed & are unremarkable except as noted in HPI and below Exam Narrative: Gen - NARD HEENT - Right parotid swelling much better. No post-auricular erythema. less tender Chest - Air entry is better and clear to auscultation. CV - RRR S1/S2 Abd - soft. NT/ND - Green secured draining clear yellow urine Ext - no pedal edema. Psych - normal mood and affect. Skin - excoriations right shoulder, posterior neck and up in to posterior hair line. ecchymosis right upper chest Objective Data Vital Signs Vital Signs: Vital Signs - 24 hr 04/11/24 14:00 04/11/24 20:35 04/11/24 20:55 Temperature 97.0 F L 98.6 F Pulse Rate 70 70 73 Respiratory Rate 16 16 22 H Blood Pressure 139/65 130/87 Pulse Oximetry 100 100 98 Oxygen Delivery Room Air 04/12/24 04:00 Temperature 98.9 F Pulse Rate 73 Respiratory Rate 18 Blood Pressure 135/60 Pulse Oximetry 93 Oxygen Delivery Intake/Output Intake/Output: Intake & Output 04/09/24 04/10/24 04/11/24 04/12/24 23:59 23:59 23:59 23:59 Intake Total 1860 2910 1366 240 Output Total 750 250 Balance 1110 2660 1366 240 Meds/Results Medications: Active Medications Generic Name Dose Route Start Last Admin Trade Name Freq PRN Reason Stop Dose Admin Acetaminophen 650 mg 04/02/24 09:53 04/12/24 11:40 Acetaminophen 325 Mg Tablet PO 650 mg Q6H PRN Administration Mild Pain (1-5) Or Fever Amoxicillin/Clavulanate Potassium 1 tablet 04/11/24 12:00 04/12/24 09:17 Amoxicillin/Clavulanate K 875-125 Mg Tab PO 1 tablet Q12HR PRERNA Administration Atorvastatin Calcium 40 mg 04/03/24 09:00 04/12/24 09:17 Atorvastatin 40 Mg Tablet PO 40 mg DAILY PRERNA Administration Dextrose 12.5 gm 04/02/24 07:07 Dextrose 50% 25 Gm/50 Ml Syringe IV PUSH PRN PRN Hypoglycemia Protocol Doxycycline Hyclate 100 mg 04/11/24 12:00 04/12/24 09:17 Doxycycline Hyclate 100 Mg Tablet PO 100 mg Q12HR PRERNA Administration Glucagon 1 mg 04/02/24 07:07 Glucagon For Inj 1 Mg Vial IM PRN PRN Hypoglycemia Protocol Glucose 15 gm 04/02/24 07:07 Glucose Oral Gel 15 Gm Of Glucse In 37.5 Gm Tube PO PRN PRN Hypoglycemia Protocol Dextrose 1,000 mls @ 100 mls/hr 04/02/24 07:07 Dextrose 5% 1,000 Ml IVPB PRN PRN Hypoglycemia Protocol Insulin Aspart 4 - 8 units 04/02/24 08:00 04/12/24 12:00 Insulin Aspart (*Bkc) 100 Units/Ml SUB-Q 4 units TIDWM PRERNA Administration Protocol Insulin Glargine 12 units 04/04/24 21:00 04/11/24 20:37 Insulin Glargine (*Bkc) 100 Units/Ml SUB-Q 12 units HS PRERNA Administration Losartan Potassium 25 mg 04/12/24 09:00 04/12/24 09:18 Losartan Potassium 25 Mg Tablet PO 25 mg DAILY PRERNA Administration Metoprolol Succinate 12.5 mg 04/10/24 11:40 04/12/24 09:17 Metoprolol Succinate Ext Rel 12.5 Mg Tabcr PO 12.5 mg QAM PRERNA Administration Miconazole Nitrate 1 applic 04/03/24 21:00 04/12/24 09:18 Miconazole Nitrate 2% Cream 30 Gm Tube TOPICAL 1 applic Q12HR PRERNA Administration Miscellaneous Information 1 each 04/11/24 00:01 [place] Needs To Be Renewed Or It Will Automatically Discontinue. XX 05/11/24 00:00 CL[facility]IFY [facility] Multivitamins/Calcium 1 tablet 04/07/24 09:00 04/12/24 09:17 Therapeutic Multivitamins/Minerals Tab (*Bkc) PO 1 tablet DAILY PRERNA Administration Ondansetron HCl 4 mg 04/02/24 09:53 04/03/24 10:47 Ondansetron Inj 4 Mg/2 Ml Vial IV PUSH 4 mg Q6H PRN Administration Nausea And Vomiting Pantoprazole Sodium 40 mg 04/06/24 09:55 04/12/24 09:18 Pantoprazole 40 Mg Tablet PO 40 mg Q12HR PRERNA Administration Zinc Acetate/Diphenhydramine 1 applic 04/03/24 14:15 04/09/24 14:29 Diphenhydramine 1%/Zinc 0.1% Cream 30 Gm Tube TOPICAL 1 applic QID PRN Administration Itching Radiology Results: ITS Impressions Humerus X-Ray 04/01/24 21:37 IMPRESSION: 1. Comminuted three-part fracture of proximal right humerus. Head CT 04/01/24 21:47 IMPRESSION: 1. 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 2. Mild nonspecific cerebral white matter disease, which likely represents chronic small vessel ischemic disease. 3. Right-sided parotiditis. Cervical Spine CT 04/01/24 21:50 IMPRESSION: 1. No fracture. 2. Mild cervical spondylosis. 3. Right-sided parotiditis. 4. Mild bilateral cervical lymphadenopathy, likely reactive. Chest CT 04/01/24 21:56 IMPRESSION: 1. Small pericardial effusion. 2. Comminuted fracture of proximal right humerus. Abdomen/Pelvis CT 04/02/24 06:28 IMPRESSION: 1. Cystitis. 2. Thrombus in left ventricular apex of the heart. Labs Labs: Laboratory Results - last 24 hr 04/11/24 04/11/24 04/12/24 16:24 20:59 06:53 WBC 12.1 H RBC 3.19 L Hgb 9.5 L Hct 30.4 L MCV 95.3 MCH 29.8 MCHC 31.3 L RDW 14.8 H Plt Count 383 H MPV 9.7 Immature Gran % (Auto) 0.6 H Neut % (Auto) 66.7 Lymph % (Auto) 16.9 L [place] % (Auto) 6.5 Eos % (Auto) 8.7 H Baso % (Auto) 0.6 Lymph # (Auto) 2.05 [place] # (Auto) 0.8 H Eos # (Auto) 1.1 H Baso # (Auto) 0.1 Abs Immat Gran (auto) 0.07 H Absolute Neuts (auto) 8.1 H Absolute Nucleated RBC 0.000 Nucleated RBC % 0.0 Sodium 136 L Potassium 3.6 Chloride 110 H Carbon Dioxide 24 Anion Gap 2 L BUN 10 Creatinine 1.20 H Estim Creat Clear Calc 55 Estimated GFR 45 L Glucose 157 H POC Capillary Glucose 182 H 195 H Calcium 8.2 L Magnesium 1.6 Total Bilirubin 0.4 AST 17 ALT 9 Alkaline Phosphatase 87 Total Protein 6.0 L Albumin 2.4 L 04/12/24 04/12/24 07:38 11:47 WBC RBC Hgb Hct MCV MCH MCHC RDW Plt Count MPV Immature Gran % (Auto) Neut % (Auto) Lymph % (Auto) [place] % (Auto) Eos % (Auto) Baso % (Auto) Lymph # (Auto) [place] # (Auto) Eos # (Auto) Baso # (Auto) Abs Immat Gran (auto) Absolute Neuts (auto) Absolute Nucleated RBC Nucleated RBC % Sodium Potassium Chloride Carbon Dioxide Anion Gap BUN Creatinine Estim Creat Clear Calc Estimated GFR Glucose POC Capillary Glucose 173 H 227 H Calcium Magnesium Total Bilirubin AST ALT Alkaline Phosphatase Total Protein Albumin
[2024-04-12 14:00] VITALS: BP 124/56; PULSE 73; RESP 18; TEMP 36.9; O2SAT 98
[2024-04-12 16:39] LABS: Glucose Point of Care 209 mg/dl (65-105)
[2024-04-12 20:00] VITALS: PULSE 76; RESP 20; O2SAT 98
[2024-04-12 21:17] LABS: Glucose Point of Care 210 mg/dl (65-105)
[2024-04-12] MEDS: INSULIN GLARGINE (*BKC) 100 UNITS/ML 12 UNITS SUB-Q (21:31)
[2024-04-12 22:00] VITALS: BP 135/61; PULSE 76; RESP 20; TEMP 36.3; O2SAT 98
[2024-04-13 05:41] VITALS: BP 119/57; PULSE 75; RESP 18; TEMP 36.2; O2SAT 96
[2024-04-13 07:46] LABS: Basophils Absolute Auto 0.1 K/mm3 (0.0-0.1); Basophils Percent Auto 0.8 % (0.2-1.2); Eosinophils Absolute Auto 1.1 K/mm3 (0-0.3); Eosinophils Percent Auto 10.1 % (0-4.4); Hematocrit 27.4 % (37.0-47.0); Hemoglobin 8.7 g/dL (12.0-15.0); Immature Granulocyte Absolute 0.06 K/mm3 (0.00-0.031); Immature Granulocyte Percent A 0.6 % (0-0.5); Lymphocytes Absolute Auto 2.19 K/mm3 (0.9-3.2); Lymphocytes Percent Auto 20.3 % (18.3-44.2); Mean Corpuscular HGB Conc 31.8 g/dl (32-36); Mean Corpuscular Volume 94.5 fl (80-100); Mean Platelet Volume 9.6 fl (7.4-10.4); Monocytes Absolute Auto 0.8 K/mm3 (0.1-0.6); Monocytes Percent Auto 7.6 % (2.6-8.5); Neutrophils Absolute Auto 6.5 K/mm3 (1.3-6.7); Neutrophils Percent Auto 60.6 % (45.5-73.1); Platelet Count Result 338 k/mm3 (150-375); Red Cell Distribution Width 14.9 % (11.5-14.5); White Blood Count 10.8 K/mm3 (4.5-10.0)
[2024-04-13 07:53] LABS: Glucose Point of Care 183 mg/dl (65-105)
[2024-04-13 08:05] LABS: Anion Gap -1 mmol/L (4-12); Blood Urea Nitrogen 10 mg/dL (7-17); Carbon Dioxide 27 mmol/L (22-30); Chloride 111 mmol/L (98-107); Estimated CRCL calculation 47 ml/min; Estimated Glomerular Filt Rate 38; Glucose 177 mg/dL (65-110); Potassium 3.7 mmol/L (3.4-5.0); Sodium 137 mmol/L (137-145)
[2024-04-13] MEDS: METOPROLOL SUCCINATE EXT REL 12.5 MG TABCR PO (08:49)
[2024-04-13] MEDS: LOSARTAN POTASSIUM 25 MG TABLET PO (08:50)
[2024-04-13] MEDS: THERAPEUTIC MULTIVITAMINS/MINERALS TAB (*BKC) 1 TABLET PO (08:50)
[2024-04-13] MEDS: ATORVASTATIN 40 MG TABLET PO (08:50)
[2024-04-13] MEDS: PANTOPRAZOLE 40 MG TABLET PO ×2 (08:50→20:52)
[2024-04-13] MEDS: DOXYCYCLINE HYCLATE 100 MG TABLET PO ×2 (08:50→20:52)
[2024-04-13] MEDS: AMOXICILLIN/CLAVULANATE K 875-125 MG TAB 1 TABLET PO ×2 (08:50→20:52)
[2024-04-13] MEDS: MICONAZOLE NITRATE 2% CREAM 30 GM TUBE 1 APPLIC TOPICAL (08:50)
[2024-04-13] MEDS: ACETAMINOPHEN 325 MG TABLET 650 MG PO ×2 (08:52→17:42)
[2024-04-13 11:39] LABS: Glucose Point of Care 225 mg/dl (65-105)
[2024-04-13] MEDS: INSULIN ASPART (*BKC) 100 UNITS/ML SUB-Q ×2 (11:59→17:42)
--- NOTE | 2024-04-13 12:18 | PM.IMPN ---
Progress Note: A&P Assessment and Plan (1) Sepsis: Code(s): A41.9 - Sepsis, unspecified organism Status: Acute Assessment and Plan: Patient presents with weakness and found to have sepsis with tachycardia, leukocytisis and elevated lactic. She received appropriate IV fluids in ED. Source is COVID, UTI and/or parotiditis. Started on Rocephin and Flagyl after Cx collected. May have conjunctivitis but sclera clear so this may be coming from the tear duct; this has improved. WBC worsened and Parotid exam worsened so Vanco added and Rocephin increased 04/03. BCx NGTD. UCx growing EColi. WBC better. Exam much improved and patient feels better Follow on culture results. Switched to Augmentin and doxycycline to finish the course (2) Anemia: Code(s): D64.9 - Anemia, unspecified Status: Acute Assessment and Plan: Hgb low on admission at 8.6. Hgb was 12 in July. She does take ASA but not Plavix at home. Suspect anemia is from recent fracture and noted ecchymosis. Stool guaiac negative by ED exam. She was having bilious emesis on admission but not felt to be coffee ground. Hgb dropped to 6.0 on 04/02 and transfused 2U PRBCs. Could be acute blood loss and/or Hgb drop from IV fluids. PPI added. Iron studies consistent with anemia of chronic disease. B12/folate normal. Hgb 6.1 04/04 and 2u PRBCs ordered again. GI consulted and appreciate their input. Trend HH and transfuse to a stable Hgb. (3) Acute parotitis: Code(s): K11.21 - Acute sialoadenitis Status: Acute Assessment and Plan: Imaging and exam confirm right parotiditis. Started on Rocephin and Flagyl MRSA nasal swab negative No fevers but WBC higher so Rocephin dose advanced and Vanco added 04/03. Clincially much better and WBC improved. Abx changed to oral (4) Stage 3a chronic kidney disease (CKD): Code(s): N18.31 - Chronic kidney disease, stage 3a Status: Acute Assessment and Plan: Cr normal in 2022. Cr 1.2-1.8 range July 2023 for CVA. Possibly an acute component of contrast induced nephropathy. Here, Cr 1.8 and climbed to 2.1. BUN up to 92; related to occult GI bleed? CKD probably related to DM. ROCIO related to sepsis, UTI, parotiditis, anemia, COVID, HoTN CT Abd/pelvis showing cystitis, cortical thinning of the kidneys and a 6.3cm right renal cyst. There is also gas in the bladder and left kidney likely form instrumentation but consider pyelonephritis. UCx growing EColi that is pansensitive. She was given IV fluids and UOP better. Midodrine added for HoTN. Serum bicarb 15 (AG 6) so oral bicarb added Cr down to 1.2-1.4. Serum bicarb improved so bicarb tabs stopped. Follow renal function, electrolytes and UOP. (5) UTI (urinary tract infection): Code(s): N39.0 - Urinary tract infection, site not specified Status: Acute Assessment and Plan: UA is consistent with UTI except for moderate squamous cells and relatively asymptomatic. UCx collected. CT scan showing bladder wall thickening c/w cystitis. Also with gas in the bladder and left kidney likely form instrumentation but consider pyelonephritis. Rocephin started. Green placed. UCx growing relatively woods-sensitive EColi. Continue abx. Removed Green (6) LV (left ventricular) mural thrombus: Code(s): I51.3 - Intracardiac thrombosis, not elsewhere classified Status: Acute Assessment and Plan: CT Abd showing a LV thrombus. No hx of CAD or signs of CHF to suggest poor LV function. Echo in July 2023 showing normal LV systolic function with EF 55-60% and grade I diastolic dysfxn. Heparin drip was ordered but never started due to anemia Echo this admission showing LV mildly enlarged with moderately reduced LV systolic fxn with EF 40-45% and diastolic dysfunction. No visualized thrombus in the LV by Echo. Will plan to start GDT if BP allows and renal function continues to improve. held midodrine 04/08 Blood pressure stable so restarted beta-eliazar which she is tolerating well. Losartan added (7) COVID: Code(s): U07.1 - COVID-19 Status: Acute Assessment and Plan: Patient found to have COVID. She believes she received the COVID vaccine. CT chest showing mild atelectasis. on room air, continue to monitor (8) Fracture, humerus closed: Code(s): S42.309A - Unspecified fracture of shaft of humerus, unspecified arm, initial encounter for closed fracture Status: Inactive Assessment and Plan: Patient with known right humerus fracture that is in 3 parts. This is associated with blood loss and bruising. No BP in right arm. Use sling as needed for comfort ortho consulted (9) Diabetes mellitus: Code(s): E11.9 - Type 2 diabetes mellitus without complications Status: Acute Assessment and Plan: Patient with DM and is poorly controlled with A1c 12.6%. She does not take her insulin at home and rarely checks her glucose. Continue AccuCheks covering with sliding scale. Hypoglycemia protocol available as needed. Glucose still elevated. Advance Lantus (10) Hx of completed stroke: Code(s): Z86.73 - Personal history of transient ischemic attack (TIA), and cerebral infarction without residual deficits Status: Acute Assessment and Plan: Head CT showing old CVAs right occipital, bilateral basal ganglia, right internal capsule and right thalamus. She is on ASA but not on Plavix or lipitor at home Resume ASA when able. Lipitor restarted. Bedside swallow was normal. Started on full liquid diet due to n/v. Advanced to soft and bite sized level 6 . (11) Smoker: Code(s): F17.200 - Nicotine dependence, unspecified, uncomplicated Status: Acute Assessment and Plan: Patient was congratulated on stopping smoking. Plan DVT prophylaxis - SCDs Code status - Full Disposition: Awaiting placement Subjective Date/time seen: 04/13/24 12:18 Interval history: 63yo female with hx of CVAs and DM here for weakness. Assuming care. Chart reviewed. She slept well. No right jaw or ear pain. No CP or SOB. She was able to walk to the chair. No melena or hematochezia that she is aware of. Complains of right arm pain. Exam Narrative: AF 97.2 119/57 75 18 96% ra Gen - NARD sitting up in a chair HEENT - No right parotid swelling or tenderness noted Chest - CTA bilaterally, nml RR CV - RRR S1/S2 Abd - soft. NT/ND Ext - no pedal edema. Right hand edema but RUE overall only scant edema. Psych - normal mood and affect. Skin - excoriations right shoulder, posterior neck and up in to posterior hair line that are healing. Objective Data Vital Signs Vital Signs: Vital Signs - 24 hr 04/12/24 14:00 04/12/24 20:00 04/12/24 22:00 Temperature 98.4 F 97.4 F L Pulse Rate 73 76 76 Respiratory Rate 18 20 20 Blood Pressure 124/56 L 135/61 Pulse Oximetry 98 98 98 Oxygen Delivery Room Air 04/13/24 05:41 Temperature 97.2 F L Pulse Rate 75 Respiratory Rate 18 Blood Pressure 119/57 L Pulse Oximetry 96 Oxygen Delivery Intake/Output Intake/Output: Intake & Output 04/10/24 04/11/24 04/12/24 04/13/24 23:59 23:59 23:59 23:59 Intake Total 2910 1366 720 360 Output Total 250 Balance 2660 1366 720 360 Meds/Results Medications: Active Medications Generic Name Dose Route Start Last Admin Trade Name Freq PRN Reason Stop Dose Admin Acetaminophen 650 mg 04/02/24 09:53 04/13/24 08:52 Acetaminophen 325 Mg Tablet PO 650 mg Q6H PRN Administration Mild Pain (1-5) Or Fever Amoxicillin/Clavulanate Potassium 1 tablet 04/11/24 12:00 04/13/24 08:50 Amoxicillin/Clavulanate K 875-125 Mg Tab PO 1 tablet Q12HR PRERNA Administration Atorvastatin Calcium 40 mg 04/03/24 09:00 04/13/24 08:50 Atorvastatin 40 Mg Tablet PO 40 mg DAILY PRERNA Administration Dextrose 12.5 gm 04/02/24 07:07 Dextrose 50% 25 Gm/50 Ml Syringe IV PUSH PRN PRN Hypoglycemia Protocol Doxycycline Hyclate 100 mg 04/11/24 12:00 04/13/24 08:50 Doxycycline Hyclate 100 Mg Tablet PO 100 mg Q12HR PRERNA Administration Glucagon 1 mg 04/02/24 07:07 Glucagon For Inj 1 Mg Vial IM PRN PRN Hypoglycemia Protocol Glucose 15 gm 04/02/24 07:07 Glucose Oral Gel 15 Gm Of Glucse In 37.5 Gm Tube PO PRN PRN Hypoglycemia Protocol Dextrose 1,000 mls @ 100 mls/hr 04/02/24 07:07 Dextrose 5% 1,000 Ml IVPB PRN PRN Hypoglycemia Protocol Insulin Aspart 4 - 8 units 04/02/24 08:00 04/13/24 11:59 Insulin Aspart (*Bkc) 100 Units/Ml SUB-Q 4 units TIDWM PRERNA Administration Protocol Insulin Glargine 12 units 04/04/24 21:00 04/12/24 21:31 Insulin Glargine (*Bkc) 100 Units/Ml SUB-Q 12 units HS PRERNA Administration Losartan Potassium 25 mg 04/12/24 09:00 04/13/24 08:50 Losartan Potassium 25 Mg Tablet PO 25 mg DAILY PRERNA Administration Metoprolol Succinate 12.5 mg 04/10/24 11:40 04/13/24 08:49 Metoprolol Succinate Ext Rel 12.5 Mg Tabcr PO 12.5 mg QAM PRERNA Administration Miconazole Nitrate 1 applic 04/03/24 21:00 04/13/24 08:50 Miconazole Nitrate 2% Cream 30 Gm Tube TOPICAL 1 applic Q12HR PRERNA Administration Miscellaneous Information 1 each 04/11/24 00:01 [place] Needs To Be Renewed Or It Will Automatically Discontinue. XX 05/11/24 00:00 CLARIFY PRERNA Miscellaneous Information 1 each 04/13/24 00:01 Order Clarification XX 05/13/24 00:00 CLARIFY PRERNA Multivitamins/Calcium 1 tablet 04/07/24 09:00 04/13/24 08:50 Therapeutic Multivitamins/Minerals Tab (*Bkc) PO 1 tablet DAILY PRERNA Administration Ondansetron HCl 4 mg 04/02/24 09:53 04/03/24 10:47 Ondansetron Inj 4 Mg/2 Ml Vial IV PUSH 4 mg Q6H PRN Administration Nausea And Vomiting Pantoprazole Sodium 40 mg 04/06/24 09:55 04/13/24 08:50 Pantoprazole 40 Mg Tablet PO 40 mg Q12HR PRERNA Administration Zinc Acetate/Diphenhydramine 1 applic 04/03/24 14:15 04/09/24 14:29 Diphenhydramine 1%/Zinc 0.1% Cream 30 Gm Tube TOPICAL 1 applic QID PRN Administration Itching Radiology Results: ITS Impressions Humerus X-Ray 04/01/24 21:37 IMPRESSION: 1. Comminuted three-part fracture of proximal right humerus. Head CT 04/01/24 21:47 IMPRESSION: 1. 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 2. Mild nonspecific cerebral white matter disease, which likely represents chronic small vessel ischemic disease. 3. Right-sided parotiditis. Cervical Spine CT 04/01/24 21:50 IMPRESSION: 1. No fracture. 2. Mild cervical spondylosis. 3. Right-sided parotiditis. 4. Mild bilateral cervical lymphadenopathy, likely reactive. Chest CT 04/01/24 21:56 IMPRESSION: 1. Small pericardial effusion. 2. Comminuted fracture of proximal right humerus. Abdomen/Pelvis CT 04/02/24 06:28 IMPRESSION: 1. Cystitis. 2. Thrombus in left ventricular apex of the heart. Labs Labs: Laboratory Results - last 24 hr 04/12/24 04/12/24 04/13/24 16:33 20:39 07:37 WBC 10.8 H RBC 2.90 L Hgb 8.7 L Hct 27.4 L MCV 94.5 MCH 30.0 MCHC 31.8 L RDW 14.9 H Plt Count 338 MPV 9.6 Immature Gran % (Auto) 0.6 H Neut % (Auto) 60.6 Lymph % (Auto) 20.3 [place] % (Auto) 7.6 Eos % (Auto) 10.1 H Baso % (Auto) 0.8 Lymph # (Auto) 2.19 [place] # (Auto) 0.8 H Eos # (Auto) 1.1 H Baso # (Auto) 0.1 Abs Immat Gran (auto) 0.06 H Absolute Neuts (auto) 6.5 Absolute Nucleated RBC 0.000 Nucleated RBC % 0.0 Sodium 137 Potassium 3.7 Chloride 111 H Carbon Dioxide 27 Anion Gap -1 L BUN 10 Creatinine 1.40 H Estim Creat Clear Calc 47 Estimated GFR 38 L Glucose 177 H POC Capillary Glucose 209 H 210 H Calcium 8.0 L 04/13/24 04/13/24 07:44 11:25 WBC RBC Hgb Hct MCV MCH MCHC RDW Plt Count MPV Immature Gran % (Auto) Neut % (Auto) Lymph % (Auto) [place] % (Auto) Eos % (Auto) Baso % (Auto) Lymph # (Auto) [place] # (Auto) Eos # (Auto) Baso # (Auto) Abs Immat Gran (auto) Absolute Neuts (auto) Absolute Nucleated RBC Nucleated RBC % Sodium Potassium Chloride Carbon Dioxide Anion Gap BUN Creatinine Estim Creat Clear Calc Estimated GFR Glucose POC Capillary Glucose 183 H 225 H Calcium
[2024-04-13 14:00] VITALS: BP 110/32; PULSE 82; RESP 18; TEMP 36.7; O2SAT 96
[2024-04-13 17:12] LABS: Glucose Point of Care 229 mg/dl (65-105)
[2024-04-13 20:00] VITALS: PULSE 68; RESP 22; O2SAT 98
[2024-04-13] MEDS: INSULIN GLARGINE (*BKC) 100 UNITS/ML 12 UNITS SUB-Q (20:52)
[2024-04-13 21:01] LABS: Glucose Point of Care 231 mg/dl (65-105)
[2024-04-13 21:33] VITALS: BP 125/58; PULSE 68; RESP 22; TEMP 36.4; O2SAT 98
[2024-04-14 05:38] VITALS: BP 136/67; PULSE 66; RESP 14; TEMP 36.2; O2SAT 98
[2024-04-14 06:35] LABS: Hemoglobin 9.3 g/dL (12.0-15.0); Mean Corpuscular Hemoglobin 29.9 pg (26-34); Mean Corpuscular Volume 96.5 fl (80-100); Mean Platelet Volume 9.8 fl (7.4-10.4); Platelet Count Result 344 k/mm3 (150-375); Red Blood Count 3.11 M/mm3 (4.2-5.4); Red Cell Distribution Width 14.8 % (11.5-14.5); White Blood Count 10.8 K/mm3 (4.5-10.0)
[2024-04-14 06:44] LABS: Albumin Level 2.4 g/dL (3.5-5.1); Anion Gap 1 mmol/L (4-12); Blood Urea Nitrogen 11 mg/dL (7-17); Calcium 8.3 mg/dL (8.4-10.2); Carbon Dioxide 27 mmol/L (22-30); Chloride 109 mmol/L (98-107); Estimated CRCL calculation 44 ml/min; Estimated Glomerular Filt Rate 35; Glucose 168 mg/dL (65-110); Phosphorus 3.6 mg/dL (2.5-4.5); Potassium 3.8 mmol/L (3.4-5.0); Sodium 137 mmol/L (137-145)
[2024-04-14 07:55] LABS: Glucose Point of Care 165 mg/dl (65-105)
--- NOTE | 2024-04-14 08:19 | PM.IMPN ---
Progress Note: A&P Assessment and Plan (1) Sepsis: Code(s): A41.9 - Sepsis, unspecified organism Status: Acute Assessment and Plan: Patient presents with weakness and found to have sepsis with tachycardia, leukocytisis and elevated lactic. She received appropriate IV fluids in ED. Source is COVID, UTI and/or parotiditis. Started on Rocephin and Flagyl after Cx collected. May have conjunctivitis but sclera clear so this may be coming from the tear duct; this has resolved WBC worsened and Parotid exam worsened so Vanco added and Rocephin increased 04/03. BCx negative. UCx growing relatively woods-sensitive EColi. Stool Cx negative. WBC better. Parotid exam much improved and patient feels better Switched to Augmentin and doxycycline to finish a 2 week course (stop 04/15/24 after AM dose) (2) Anemia: Code(s): D64.9 - Anemia, unspecified Status: Acute Assessment and Plan: Hgb low on admission at 8.6. Hgb was 12 in July. She does take ASA but not Plavix at home. Suspect anemia is from recent fracture and noted ecchymosis. Stool guaiac negative by ED exam. She was having bilious emesis on admission but not felt to be coffee ground. Hgb dropped to 6.0 on 04/02 and transfused 2U PRBCs. Could be acute blood loss and/or Hgb drop from IV fluids. PPI added. Iron studies consistent with anemia of chronic disease. B12/folate normal. Hgb 6.1 04/04 and 2u PRBCs ordered again. GI consulted and appreciate their input. Since last transfusion, Hgb stable mostly in the 9 range. Monitor HH and transfuse to a stable Hgb. Add back ASA (3) Acute parotitis: Code(s): K11.21 - Acute sialoadenitis Status: Acute Assessment and Plan: Imaging and exam confirm right parotiditis. Started on Rocephin and Flagyl MRSA nasal swab negative No fevers but WBC higher so Rocephin dose advanced and Vanco added 04/03. Clincially much better and WBC improved. Abx changed to oral (4) Stage 3a chronic kidney disease (CKD): Code(s): N18.31 - Chronic kidney disease, stage 3a Status: Acute Assessment and Plan: Cr normal in 2023. Cr 1.2-1.8 range July 2023 for CVA. Possibly an acute component of contrast induced nephropathy. Here, Cr 1.8 and climbed to 2.1. BUN up to 92; related to occult GI bleed? CKD probably related to DM. ROCIO related to sepsis, UTI, parotiditis, anemia, COVID, HoTN CT Abd/pelvis showing cystitis, cortical thinning of the kidneys and a 6.3cm right renal cyst. There is also gas in the bladder and left kidney likely form instrumentation but consider pyelonephritis. UCx growing EColi that is pansensitive. She was given IV fluids and UOP better. Midodrine added for HoTN but able to be weaned off. Serum bicarb 15 (AG 6) so oral bicarb added Cr down to 1.2-1.45. Serum bicarb improved so bicarb tabs stopped. Follow renal function, electrolytes and UOP. (5) UTI (urinary tract infection): Code(s): N39.0 - Urinary tract infection, site not specified Status: Acute Assessment and Plan: UA is consistent with UTI except for moderate squamous cells and relatively asymptomatic. UCx collected. CT scan showing bladder wall thickening c/w cystitis. Also with gas in the bladder and left kidney likely form instrumentation but consider pyelonephritis. Rocephin started. Green placed. UCx growing relatively woods-sensitive EColi. Continue abx. Removed Green (6) LV (left ventricular) mural thrombus: Code(s): I51.3 - Intracardiac thrombosis, not elsewhere classified Status: Acute Assessment and Plan: CT Abd showing a LV thrombus. No hx of CAD or signs of CHF to suggest poor LV function. Echo in July 2023 showing normal LV systolic function with EF 55-60% and grade I diastolic dysfxn. Heparin drip was ordered but never started due to anemia Echo this admission showing LV mildly enlarged with moderately reduced LV systolic fxn with EF 40-45% and diastolic dysfunction. No visualized thrombus in the LV by Echo. Will plan to start GDT if BP allows and renal function continues to improve. held midodrine 04/08 Blood pressure stable so restarted Toprol XL which she is tolerating well. Losartan added. (7) COVID: Code(s): U07.1 - COVID-19 Status: Acute Assessment and Plan: Patient found to have COVID. She believes she received the COVID vaccine. CT chest showing mild atelectasis. on room air, continue to monitor (8) Fracture, humerus closed: Code(s): S42.309A - Unspecified fracture of shaft of humerus, unspecified arm, initial encounter for closed fracture Status: Inactive Assessment and Plan: Patient with known right humerus fracture that is in 3 parts. This is associated with blood loss and bruising. No BP in right arm. Use sling as needed for comfort ortho consulted (9) Diabetes mellitus: Code(s): E11.9 - Type 2 diabetes mellitus without complications Status: Acute Assessment and Plan: Patient with DM and is poorly controlled with A1c 12.6%. She does not take her insulin at home and rarely checks her glucose. Continue AccuCheks covering with sliding scale. Hypoglycemia protocol available as needed. Glucose still elevated. lantus advanced. Continue diab diet. (10) Hx of completed stroke: Code(s): Z86.73 - Personal history of transient ischemic attack (TIA), and cerebral infarction without residual deficits Status: Acute Assessment and Plan: Head CT showing old CVAs right occipital, bilateral basal ganglia, right internal capsule and right thalamus. She is on ASA but not on Plavix or lipitor at home Resume ASA when able. Lipitor restarted. Bedside swallow was normal. Started on full liquid diet due to n/v. Advanced to soft and bite sized level 6 . Add back ASA (11) Smoker: Code(s): F17.200 - Nicotine dependence, unspecified, uncomplicated Status: Acute Assessment and Plan: Patient was congratulated on stopping smoking. (12) Bedbug bite: Code(s): W57.XXXA - Bitten or stung by nonvenomous insect and other nonvenomous arthropods, initial encounter Status: Acute Assessment and Plan: Patient with bedbug infestation at home and was noted to have excoriation and pruritus. Her symptoms are much better but staff again found another bedbug. Infectious Disease RN notified. Continue to monitor. may impact her ability to be placed. Plan DVT prophylaxis - SCDs Code status - Full Disposition: Awaiting placement Subjective Date/time seen: 04/14/24 08:19 Interval history: 63yo female with hx of CVAs and DM here for weakness. Staff found another bedbug. Family had been visitiing. Right arm with some pain after working with PT> No CP or SOB. Not with pruritus. Exam Narrative: AF 97.1 136/67 66 14 98% ra Gen - NARD Chest - few basilar rhonchi, nml RR CV - RRR S1/S2 Abd - soft. NT/ND Ext - trace pedal edema. Psych - normal mood and affect. Skin - healing excoriations right shoulder and posterior neck along the hair line Objective Data Vital Signs Vital Signs: Vital Signs - 24 hr 04/13/24 14:00 04/13/24 20:00 04/13/24 21:33 Temperature 98.1 F 97.5 F L Pulse Rate 82 68 68 Respiratory Rate 18 22 H 22 H Blood Pressure 110/32 L 125/58 L Pulse Oximetry 96 98 98 Oxygen Delivery Room Air 04/14/24 05:38 Temperature 97.1 F L Pulse Rate 66 Respiratory Rate 14 Blood Pressure 136/67 Pulse Oximetry 98 Oxygen Delivery Intake/Output Intake/Output: Intake & Output 04/11/24 04/12/24 04/13/24 04/14/24 23:59 23:59 23:59 23:59 Intake Total 3710 774 3157 550 Output Total 350 Balance 4061 381 5283 200 Meds/Results Medications: Active Medications Generic Name Dose Route Start Last Admin Trade Name Freq PRN Reason Stop Dose Admin Acetaminophen 650 mg 04/02/24 09:53 04/13/24 17:42 Acetaminophen 325 Mg Tablet PO 650 mg Q6H PRN Administration Mild Pain (1-5) Or Fever Amoxicillin/Clavulanate Potassium 1 tablet 04/11/24 12:00 04/13/24 20:52 Amoxicillin/Clavulanate K 875-125 Mg Tab PO 1 tablet Q12HR PRERNA Administration Atorvastatin Calcium 40 mg 04/03/24 09:00 04/13/24 08:50 Atorvastatin 40 Mg Tablet PO 40 mg DAILY PRERNA Administration Dextrose 12.5 gm 04/02/24 07:07 Dextrose 50% 25 Gm/50 Ml Syringe IV PUSH PRN PRN Hypoglycemia Protocol Doxycycline Hyclate 100 mg 04/11/24 12:00 04/13/24 20:52 Doxycycline Hyclate 100 Mg Tablet PO 100 mg Q12HR PRERNA Administration Glucagon 1 mg 04/02/24 07:07 Glucagon For Inj 1 Mg Vial IM PRN PRN Hypoglycemia Protocol Glucose 15 gm 04/02/24 07:07 Glucose Oral Gel 15 Gm Of Glucse In 37.5 Gm Tube PO PRN PRN Hypoglycemia Protocol Dextrose 1,000 mls @ 100 mls/hr 04/02/24 07:07 Dextrose 5% 1,000 Ml IVPB PRN PRN Hypoglycemia Protocol Insulin Aspart 4 - 8 units 04/02/24 08:00 04/13/24 17:42 Insulin Aspart (*Bkc) 100 Units/Ml SUB-Q 4 units TIDWM PRERNA Administration Protocol Insulin Glargine 16 units 04/14/24 21:00 Insulin Glargine (*Bkc) 100 Units/Ml SUB-Q HS PRERNA Losartan Potassium 25 mg 04/12/24 09:00 04/13/24 08:50 Losartan Potassium 25 Mg Tablet PO 25 mg DAILY PRERNA Administration Metoprolol Succinate 12.5 mg 04/10/24 11:40 04/13/24 08:49 Metoprolol Succinate Ext Rel 12.5 Mg Tabcr PO 12.5 mg QAM PRERNA Administration Miscellaneous Information 1 each 04/11/24 00:01 [place] Needs To Be Renewed Or It Will Automatically Discontinue. XX 05/11/24 00:00 CLARIFY PRERNA Miscellaneous Information 1 each 04/13/24 00:01 Order Clarification XX 05/13/24 00:00 CLARIFY PRERNA Multivitamins/Calcium 1 tablet 04/07/24 09:00 04/13/24 08:50 Therapeutic Multivitamins/Minerals Tab (*Bkc) PO 1 tablet DAILY PRERNA Administration Ondansetron HCl 4 mg 04/02/24 09:53 04/03/24 10:47 Ondansetron Inj 4 Mg/2 Ml Vial IV PUSH 4 mg Q6H PRN Administration Nausea And Vomiting Pantoprazole Sodium 40 mg 04/06/24 09:55 04/13/24 20:52 Pantoprazole 40 Mg Tablet PO 40 mg Q12HR PRERNA Administration Zinc Acetate/Diphenhydramine 1 applic 04/03/24 14:15 04/09/24 14:29 Diphenhydramine 1%/Zinc 0.1% Cream 30 Gm Tube TOPICAL 1 applic QID PRN Administration Itching Radiology Results: ITS Impressions Humerus X-Ray 04/01/24 21:37 IMPRESSION: 1. Comminuted three-part fracture of proximal right humerus. Head CT 04/01/24 21:47 IMPRESSION: 1. 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 2. Mild nonspecific cerebral white matter disease, which likely represents chronic small vessel ischemic disease. 3. Right-sided parotiditis. Cervical Spine CT 04/01/24 21:50 IMPRESSION: 1. No fracture. 2. Mild cervical spondylosis. 3. Right-sided parotiditis. 4. Mild bilateral cervical lymphadenopathy, likely reactive. Chest CT 04/01/24 21:56 IMPRESSION: 1. Small pericardial effusion. 2. Comminuted fracture of proximal right humerus. Abdomen/Pelvis CT 04/02/24 06:28 IMPRESSION: 1. Cystitis. 2. Thrombus in left ventricular apex of the heart. Labs Labs: Laboratory Results - last 24 hr 04/13/24 04/13/24 04/13/24 11:25 17:00 20:16 WBC RBC Hgb Hct MCV MCH MCHC RDW Plt Count MPV Sodium Potassium Chloride Carbon Dioxide Anion Gap BUN Creatinine Estim Creat Clear Calc Estimated GFR Glucose POC Capillary Glucose 225 H 229 H 231 H Calcium Phosphorus Albumin 04/14/24 04/14/24 06:26 07:49 WBC 10.8 H RBC 3.11 L Hgb 9.3 L Hct 30.0 L MCV 96.5 MCH 29.9 MCHC 31.0 L RDW 14.8 H Plt Count 344 MPV 9.8 Sodium 137 Potassium 3.8 Chloride 109 H Carbon Dioxide 27 Anion Gap 1 L BUN 11 Creatinine 1.50 H Estim Creat Clear Calc 44 Estimated GFR 35 L Glucose 168 H POC Capillary Glucose 165 H Calcium 8.3 L Phosphorus 3.6 Albumin 2.4 L
[2024-04-14] MEDS: LOSARTAN POTASSIUM 25 MG TABLET PO (09:31)
[2024-04-14] MEDS: AMOXICILLIN/CLAVULANATE K 875-125 MG TAB 1 TABLET PO ×2 (09:31→21:15)
[2024-04-14] MEDS: PANTOPRAZOLE 40 MG TABLET PO ×2 (09:31→21:15)
[2024-04-14] MEDS: ATORVASTATIN 40 MG TABLET PO (09:31)
[2024-04-14] MEDS: DOXYCYCLINE HYCLATE 100 MG TABLET PO ×2 (09:31→21:15)
[2024-04-14] MEDS: THERAPEUTIC MULTIVITAMINS/MINERALS TAB (*BKC) 1 TABLET PO (09:31)
[2024-04-14] MEDS: METOPROLOL SUCCINATE EXT REL 12.5 MG TABCR PO (09:31)
[2024-04-14] MEDS: ACETAMINOPHEN 325 MG TABLET 650 MG PO ×2 (10:19→17:09)
[2024-04-14 11:42] LABS: Glucose Point of Care 249 mg/dl (65-105)
[2024-04-14] MEDS: INSULIN ASPART (*BKC) 100 UNITS/ML SUB-Q ×2 (11:53→17:11)
[2024-04-14 14:00] VITALS: BP 120/54; PULSE 90; RESP 18; TEMP 36.6; O2SAT 100
[2024-04-14 17:02] LABS: Glucose Point of Care 238 mg/dl (65-105)
[2024-04-14 20:57] LABS: Glucose Point of Care 300 mg/dl (65-105)
[2024-04-14] MEDS: INSULIN GLARGINE (*BKC) 100 UNITS/ML 16 UNITS SUB-Q (21:18)
[2024-04-14 21:31] VITALS: BP 118/59; PULSE 72; RESP 20; TEMP 36.4; O2SAT 97
[2024-04-15] MEDS: ACETAMINOPHEN 325 MG TABLET 650 MG PO ×2 (01:43→20:35)
[2024-04-15 03:58] VITALS: TEMP 37.5
[2024-04-15 06:00] VITALS: BP 138/75; PULSE 63; RESP 18; TEMP 36.7; O2SAT 97
[2024-04-15 08:03] LABS: Glucose Point of Care 247 mg/dl (65-105)
[2024-04-15 08:14] LABS: Hematocrit 29.7 % (37.0-47.0); Hemoglobin 9.3 g/dL (12.0-15.0); Mean Corpuscular HGB Conc 31.3 g/dl (32-36); Mean Corpuscular Hemoglobin 29.8 pg (26-34); Mean Corpuscular Volume 95.2 fl (80-100); Mean Platelet Volume 10.2 fl (7.4-10.4); Platelet Count Result 366 k/mm3 (150-375); Red Blood Count 3.12 M/mm3 (4.2-5.4); Red Cell Distribution Width 14.6 % (11.5-14.5); White Blood Count 10.7 K/mm3 (4.5-10.0)
[2024-04-15 08:35] LABS: Anion Gap -1 mmol/L (4-12); Blood Urea Nitrogen 13 mg/dL (7-17); Calcium 8.5 mg/dL (8.4-10.2); Carbon Dioxide 30 mmol/L (22-30); Chloride 108 mmol/L (98-107); Estimated CRCL calculation 55 ml/min; Estimated Glomerular Filt Rate 45; Glucose 232 mg/dL (65-110); Potassium 3.9 mmol/L (3.4-5.0); Sodium 137 mmol/L (137-145)
[2024-04-15] MEDS: INSULIN ASPART (*BKC) 100 UNITS/ML SUB-Q ×3 (09:17→18:09)
[2024-04-15 09:18] VITALS: PULSE 62
[2024-04-15] MEDS: ASPIRIN 81 MG CHEWABLE TABLET PO (09:18)
[2024-04-15] MEDS: METOPROLOL SUCCINATE EXT REL 12.5 MG TABCR PO (09:18)
[2024-04-15] MEDS: DOXYCYCLINE HYCLATE 100 MG TABLET PO (09:19)
[2024-04-15] MEDS: ATORVASTATIN 40 MG TABLET PO (09:19)
[2024-04-15] MEDS: LOSARTAN POTASSIUM 25 MG TABLET PO (09:19)
[2024-04-15] MEDS: AMOXICILLIN/CLAVULANATE K 875-125 MG TAB 1 TABLET PO (09:19)
[2024-04-15] MEDS: PANTOPRAZOLE 40 MG TABLET PO ×2 (09:19→20:35)
[2024-04-15] MEDS: THERAPEUTIC MULTIVITAMINS/MINERALS TAB (*BKC) 1 TABLET PO (09:19)
[2024-04-15 11:34] LABS: Glucose Point of Care 251 mg/dl (65-105)
--- NOTE | 2024-04-15 11:58 | P.PNIM_ITS ---
Progress Note: A&P Assessment and Plan (1) Sepsis: Code(s): A41.9 - Sepsis, unspecified organism Status: Acute Assessment and Plan: Patient presents with weakness and found to have sepsis with tachycardia, leuk ocytisis and elevated lactic. She received appropriate IV fluids in ED. Source is COVID, UTI and/or parotiditis. Started on Rocephin and Flagyl after Cx collected. May have conjunctivitis but sclera clear so this may be coming from the tear duct; this has resolved WBC worsened and Parotid exam worsened so Vanco added and Rocephin increased 04/03. BCx negative. UCx growing relatively woods-sensitive EColi. Stool Cx negative. WBC better. Parotid exam much improved and patient feels better Switched to Augmentin and doxycycline and finished a 2 week course on 04/15/24 (2) Anemia: Code(s): D64.9 - Anemia, unspecified Status: Acute Assessment and Plan: Hgb low on admission at 8.6. Hgb was 12 in July. She does take ASA but not Plavix at home. Suspect anemia is from recent fracture and noted ecchymosis. Stool guaiac negative by ED exam. She was having bilious emesis on admission but not felt to be coffee ground. Hgb dropped to 6.0 on 04/02 and transfused 2U PRBCs. Could be acute blood loss and/or Hgb drop from IV fluids. PPI added. Iron studies consistent with anemia of chronic disease. B12/folate normal. Hgb 6.1 04/04 and 2u PRBCs ordered again. GI consulted and appreciate their input. Since last transfusion, Hgb stable mostly in the 9 range. Monitor HH and transfuse to a stable Hgb. Added back ASA (3) Acute parotitis: Code(s): K11.21 - Acute sialoadenitis Status: Acute Assessment and Plan: Imaging and exam confirm right parotiditis. Started on Rocephin and Flagyl MRSA nasal swab negative No fevers but WBC higher so Rocephin dose advanced and Vanco added 04/03. Clinically much better and WBC improved. Completed abx course (4) Stage 3a chronic kidney disease (CKD): Code(s): N18.31 - Chronic kidney disease, stage 3a Status: Acute Assessment and Plan: Cr normal in 2022. Cr 1.2-1.8 range July 2023 for CVA. Possibly an acute component of contrast induced nephropathy. Here, Cr 1.8 and climbed to 2.1. BUN up to 92; related to occult GI bleed? CKD probably related to DM. ROCIO related to sepsis, UTI, parotiditis, anemia, COVID, HoTN CT Abd/pelvis showing cystitis, cortical thinning of the kidneys and a 6.3cm right renal cyst. There is also gas in the bladder and left kidney likely form instrumentation but consider pyelonephritis. UCx growing EColi that is pansensitive. She was given IV fluids and UOP better. Midodrine added for HoTN but able to be weaned off. Serum bicarb 15 (AG 6) so oral bicarb added Cr down to 1.2-1.5. Serum bicarb improved so bicarb tabs stopped. Follow renal function, electrolytes and UOP. (5) UTI (urinary tract infection): Code(s): N39.0 - Urinary tract infection, site not specified Status: Acute Assessment and Plan: UA is consistent with UTI except for moderate squamous cells and relatively asymptomatic. UCx collected. CT scan showing bladder wall thickening c/w cystitis. Also with gas in the bladder and left kidney likely form instrumentation but consider pyelonephritis. Rocephin started. Green placed. UCx growing relatively woods-sensitive EColi. Completed abx. Green out now (6) LV (left ventricular) mural thrombus: Code(s): I51.3 - Intracardiac thrombosis, not elsewhere classified Status: Acute Assessment and Plan: CT Abd showing a LV thrombus. No hx of CAD or signs of CHF to suggest poor LV function. Echo in July 2023 showing normal LV systolic function with EF 55-60% and grade I diastolic dysfxn. Heparin drip was ordered but never started due to anemia Echo this admission showing LV mildly enlarged with moderately reduced LV systolic fxn with EF 40-45% and diastolic dysfunction. No visualized thrombus in the LV by Echo. Will plan to start GDT if BP allows and renal function continues to improve. held midodrine 04/08 Blood pressure stable so restarted Toprol XL which she is tolerating this well. Losartan added. (7) COVID: Code(s): U07.1 - COVID-19 Status: Acute Assessment and Plan: Patient found to have COVID. She believes she received the COVID vaccine. CT chest showing mild atelectasis. on room air, continue to monitor (8) Fracture, humerus closed: Code(s): S42.309A - Unspecified fracture of shaft of humerus, unspecified arm, initial encounter for closed fracture Status: Inactive Assessment and Plan: Patient with known right humerus fracture that is in 3 parts. This is associated with blood loss and bruising. No BP in right arm. Use sling as needed for comfort Right arm edematous. Doppler negative for DVT but shows right basilic vein thrombosis. Add heating pad. ortho consulted. Contnue PT/OT (9) Diabetes mellitus: Code(s): E11.9 - Type 2 diabetes mellitus without complications Status: Acute Assessment and Plan: Patient with DM and is poorly controlled with A1c 12.6%. She does not take her insulin at home and rarely checks her glucose. Continue AccuCheks covering with sliding scale. Hypoglycemia protocol available as needed. Glucose still elevated. lantus advanced again. Continue diab diet. (10) Hx of completed stroke: Code(s): Z86.73 - Personal history of transient ischemic attack (TIA), and cerebral infarction without residual deficits Status: Acute Assessment and Plan: Head CT showing old CVAs right occipital, bilateral basal ganglia, right internal capsule and right thalamus. She is on ASA but not on Plavix or lipitor at home Bedside swallow was normal. Started on full liquid diet due to n/v. Advanced to soft and bite sized level 6 . Added back ASA and Lipitor. (11) Smoker: Code(s): F17.200 - Nicotine dependence, unspecified, uncomplicated Status: Acute Assessment and Plan: Patient was congratulated on stopping smoking. (12) Bedbug bite: Code(s): W57.XXXA - Bitten or stung by nonvenomous insect and other nonvenomous arthropods, initial encounter Status: Acute Assessment and Plan: Patient with bedbug infestation at home and was noted to have excoriation and pruritus. Her symptoms are much better but staff again found another bedbug. Infectious Disease RN notified. Continue to monitor. may impact her ability to be placed. Plan DVT prophylaxis - SCDs Code status - Full Disposition: Awaiting placement Subjective Date/time seen: 04/15/24 11:58 Interval history: 63yo female with hx of CVAs and DM here for weakness. Feels better. Right arm swelling. Right arm pain better. Exam Narrative: AF 98.0 138/75 62 18 97% ra Gen - NARD Chest - fCTA bilaterally, nml RR CV - RRR S1/S2 Abd - soft. NT/ND Ext - trace pedal edema. Rt hand edema. 2+ radial pulses. nml sensation to the right hand Psych - normal mood and affect. Skin - warm and dry Objective Data Vital Signs Vital Signs: Vital Signs - 24 hr 04/14/24 14:00 04/14/24 21:31 04/15/24 03:58 Temperature 97.9 F 97.6 F 99.5 F Pulse Rate 90 72 Respiratory Rate 18 20 Blood Pressure 120/54 L 118/59 L Pulse Oximetry 100 97 Oxygen Delivery 04/15/24 06:00 04/15/24 09:15 04/15/24 09:18 Temperature 98.0 F Pulse Rate 63 62 Respiratory Rate 18 Blood Pressure 138/75 Pulse Oximetry 97 Oxygen Delivery Room Air Intake/Output Intake/Output: Intake & Output 04/12/24 04/13/24 04/14/24 04/15/24 23:59 23:59 23:59 23:59 Intake Total 720 1150 2060 1130 Output Total 350 1400 Balance 720 1150 1710 -270 Meds/Results Medications: Active Medications Generic Name Dose Route Start Last Admin Trade Name Freq PRN Reason Stop Dose Admin Acetaminophen 650 mg 04/02/24 09:53 04/15/24 01:43 Acetaminophen 325 Mg Tablet PO 650 mg Q6H PRN Administration Mild Pain (1-5) Or Fever Amoxicillin/Clavulanate Potassium 1 tablet 04/11/24 12:00 04/15/24 09:19 Amoxicillin/Clavulanate K 875-125 Mg Tab PO 1 tablet Q12HR PRERNA Administration Aspirin 81 mg 04/15/24 09:00 04/15/24 09:18 Aspirin 81 Mg Chewable Tablet PO 81 mg DAILY PRERNA Administration Atorvastatin Calcium 40 mg 04/03/24 09:00 04/15/24 09:19 Atorvastatin 40 Mg Tablet PO 40 mg DAILY PRERNA Administration Dextrose 12.5 gm 04/02/24 07:07 Dextrose 50% 25 Gm/50 Ml Syringe IV PUSH PRN PRN Hypoglycemia Protocol Doxycycline Hyclate 100 mg 04/11/24 12:00 04/15/24 09:19 Doxycycline Hyclate 100 Mg Tablet PO 100 mg Q12HR PRERNA Administration Glucagon 1 mg 04/02/24 07:07 Glucagon For Inj 1 Mg Vial IM PRN PRN Hypoglycemia Protocol Glucose 15 gm 04/02/24 07:07 Glucose Oral Gel 15 Gm Of Glucse In 37.5 Gm Tube PO PRN PRN Hypoglycemia Protocol Dextrose 1,000 mls @ 100 mls/hr 04/02/24 07:07 Dextrose 5% 1,000 Ml IVPB PRN PRN Hypoglycemia Protocol Insulin Aspart 4 - 8 units 04/02/24 08:00 04/15/24 09:17 Insulin Aspart (*Bkc) 100 Units/Ml SUB-Q 4 units TIDWM PRERNA Administration Protocol Insulin Glargine 16 units 04/14/24 21:00 04/14/24 21:18 Insulin Glargine (*Bkc) 100 Units/Ml SUB-Q 16 units HS PRERNA Administration Losartan Potassium 25 mg 04/12/24 09:00 04/15/24 09:19 Losartan Potassium 25 Mg Tablet PO 25 mg DAILY PRERNA Administration Metoprolol Succinate 12.5 mg 04/10/24 11:40 04/15/24 09:18 Metoprolol Succinate Ext Rel 12.5 Mg Tabcr PO 12.5 mg QAM PRERNA Administration Miscellaneous Information 1 each 04/11/24 00:01 [place] Needs To Be Renewed Or It Will Automatically Discontinue. XX 05/11/24 00:00 CLARIFY PRERNA Miscellaneous Information 1 each 04/13/24 00:01 Order Clarification XX 05/13/24 00:00 CLARIFY PRERNA Multivitamins/Calcium 1 tablet 04/07/24 09:00 04/15/24 09:19 Therapeutic Multivitamins/Minerals Tab (*Bkc) PO 1 tablet DAILY PRERNA Administration Ondansetron HCl 4 mg 04/02/24 09:53 04/03/24 10:47 Ondansetron Inj 4 Mg/2 Ml Vial IV PUSH 4 mg Q6H PRN Administration Nausea And Vomiting Pantoprazole Sodium 40 mg 04/06/24 09:55 04/15/24 09:19 Pantoprazole 40 Mg Tablet PO 40 mg Q12HR PRERNA Administration Zinc Acetate/Diphenhydramine 1 applic 04/03/24 14:15 04/09/24 14:29 Diphenhydramine 1%/Zinc 0.1% Cream 30 Gm Tube TOPICAL 1 applic QID PRN Administration Itching Radiology Results: ITS Impressions Humerus X-Ray 04/01/24 21:37 IMPRESSION: 1. Comminuted three-part fracture of proximal right humerus. Head CT 04/01/24 21:47 IMPRESSION: 1. 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 2. Mild nonspecific cerebral white matter disease, which likely represents chronic small vessel ischemic disease. 3. Right-sided parotiditis. Cervical Spine CT 04/01/24 21:50 IMPRESSION: 1. No fracture. 2. Mild cervical spondylosis. 3. Right-sided parotiditis. 4. Mild bilateral cervical lymphadenopathy, likely reactive. Chest CT 04/01/24 21:56 IMPRESSION: 1. Small pericardial effusion. 2. Comminuted fracture of proximal right humerus. Abdomen/Pelvis CT 04/02/24 06:28 IMPRESSION: 1. Cystitis. 2. Thrombus in left ventricular apex of the heart. Labs Labs: Laboratory Results - last 24 hr 04/14/24 04/14/24 04/15/24 16:51 20:51 07:29 WBC 10.7 H RBC 3.12 L Hgb 9.3 L Hct 29.7 L MCV 95.2 MCH 29.8 MCHC 31.3 L RDW 14.6 H Plt Count 366 MPV 10.2 Sodium 137 Potassium 3.9 Chloride 108 H Carbon Dioxide 30 Anion Gap -1 L BUN 13 Creatinine 1.20 H Estim Creat Clear Calc 55 Estimated GFR 45 L Glucose 232 H POC Capillary Glucose 238 H 300 H Calcium 8.5 04/15/24 04/15/24 07:36 11:27 WBC RBC Hgb Hct MCV MCH MCHC RDW Plt Count MPV Sodium Potassium Chloride Carbon Dioxide Anion Gap BUN Creatinine Estim Creat Clear Calc Estimated GFR Glucose POC Capillary Glucose 247 H 251 H Calcium
[2024-04-15 13:54] VITALS: BP 128/69; PULSE 76; RESP 18; TEMP 36.6; O2SAT 99
--- NOTE | 2024-04-15 14:22 | PC.NURSE ---
On 04/15/24, the TUBE LANCER, [Rafaela Anaya ], provided care and completed [facility] documentation on this patient. I have reviewed the TUBE LANCER's documentation and agree with the findings.
[2024-04-15 16:33] LABS: Glucose Point of Care 223 mg/dl (65-105)
[2024-04-15] MEDS: INSULIN GLARGINE (*BKC) 100 UNITS/ML 20 UNITS SUB-Q (20:35)
[2024-04-15 20:43] LABS: Glucose Point of Care 252 mg/dl (65-105)
[2024-04-15 21:59] VITALS: BP 134/81; PULSE 78; RESP 20; TEMP 36.8; O2SAT 98
[2024-04-16 05:55] VITALS: BP 135/66; PULSE 71; RESP 18; TEMP 36.9; O2SAT 98
[2024-04-16 08:40] LABS: Glucose Point of Care 189 mg/dl (65-105)
--- NOTE | 2024-04-16 10:13 | PCNWS ---
Weekly nutritional screen. Patient is tolerating current diabetic diet, soft and bite sized consistency with adequate intake 50-100% of meals. No weight loss reported. No nutritional recommendations at this time.
[2024-04-16 10:15] VITALS: PULSE 75
[2024-04-16] MEDS: METOPROLOL SUCCINATE EXT REL 12.5 MG TABCR PO (10:15)
[2024-04-16] MEDS: LOSARTAN POTASSIUM 25 MG TABLET PO (10:16)
[2024-04-16] MEDS: THERAPEUTIC MULTIVITAMINS/MINERALS TAB (*BKC) 1 TABLET PO (10:16)
[2024-04-16] MEDS: ASPIRIN 81 MG CHEWABLE TABLET PO (10:16)
[2024-04-16] MEDS: ATORVASTATIN 40 MG TABLET PO (10:16)
[2024-04-16] MEDS: PANTOPRAZOLE 40 MG TABLET PO ×2 (10:16→20:49)
[2024-04-16 12:04] LABS: Glucose Point of Care 194 mg/dl (65-105)
--- NOTE | 2024-04-16 13:26 | PM.IMPN ---
Progress Note: A&P Assessment and Plan (1) Sepsis: Code(s): A41.9 - Sepsis, unspecified organism Status: Acute Assessment and Plan: Patient presents with weakness and found to have sepsis with tachycardia, leukocytisis and elevated lactic. She received appropriate IV fluids in ED. Source is COVID, UTI and/or parotiditis. Started on Rocephin and Flagyl after Cx collected. May have conjunctivitis but sclera clear so this may be coming from the tear duct; this has resolved WBC worsened and Parotid exam worsened so Vanco added and Rocephin increased 04/03. BCx negative. UCx growing relatively woods-sensitive EColi. Stool Cx negative. WBC better. Parotid exam much improved and patient feels better Switched to Augmentin and doxycycline and finished a 2 week course on 04/15/24 Resolved (2) Anemia: Code(s): D64.9 - Anemia, unspecified Status: Acute Assessment and Plan: Hgb low on admission at 8.6. Hgb was 12 in July. She does take ASA but not Plavix at home. Suspect anemia is from recent fracture and noted ecchymosis. Stool guaiac negative by ED exam. She was having bilious emesis on admission but not felt to be coffee ground. Hgb dropped to 6.0 on 04/02 and transfused 2U PRBCs. Could be acute blood loss and/or Hgb drop from IV fluids. PPI added. Iron studies consistent with anemia of chronic disease. B12/folate normal. Hgb 6.1 04/04 and 2u PRBCs ordered again. GI consulted and appreciate their input. Since last transfusion, Hgb stable mostly in the 9 range. Monitor HH and transfuse to a stable Hgb. Added back ASA (3) Acute parotitis: Code(s): K11.21 - Acute sialoadenitis Status: Acute Assessment and Plan: Imaging and exam confirm right parotiditis. Started on Rocephin and Flagyl MRSA nasal swab negative No fevers but WBC higher so Rocephin dose advanced and Vanco added 04/03. Clinically much better and WBC improved. Completed abx course (4) Stage 3a chronic kidney disease (CKD): Code(s): N18.31 - Chronic kidney disease, stage 3a Status: Acute Assessment and Plan: Cr normal in 2022. Cr 1.2-1.8 range July 2023 for CVA. Possibly an acute component of contrast induced nephropathy. Here, Cr 1.8 and climbed to 2.1. BUN up to 92; related to occult GI bleed? CKD probably related to DM. ROCIO related to sepsis, UTI, parotiditis, anemia, COVID, [facility] CT Abd/pelvis showing cystitis, cortical thinning of the kidneys and a 6.3cm right renal cyst. There is also gas in the bladder and left kidney likely form instrumentation but consider pyelonephritis. UCx growing EColi that is pansensitive. She was given IV fluids and UOP better. Midodrine added for HoTN but able to be weaned off. Serum bicarb 15 (AG 6) so oral bicarb added Cr down to 1.2-1.5. Serum bicarb improved so bicarb tabs stopped. Follow renal function, electrolytes and UOP periodically. (5) UTI (urinary tract infection): Code(s): N39.0 - Urinary tract infection, site not specified Status: Acute Assessment and Plan: UA is consistent with UTI except for moderate squamous cells and relatively asymptomatic. UCx collected. CT scan showing bladder wall thickening c/w cystitis. Also with gas in the bladder and left kidney likely form instrumentation but consider pyelonephritis. Rocephin started. Green placed. UCx growing relatively woods-sensitive EColi. Completed abx. Green out now (6) LV (left ventricular) mural thrombus: Code(s): I51.3 - Intracardiac thrombosis, not elsewhere classified Status: Acute Assessment and Plan: CT Abd showing a LV thrombus. No hx of CAD or signs of CHF to suggest poor LV function. Echo in July 2023 showing normal LV systolic function with EF 55-60% and grade I diastolic dysfxn. Heparin drip was ordered but never started due to anemia Echo this admission showing LV mildly enlarged with moderately reduced LV systolic fxn with EF 40-45% and diastolic dysfunction. No visualized thrombus in the LV by Echo. Will plan to start GDT if BP allows and renal function continues to improve. held midodrine 04/08 Blood pressure stable so restarted Toprol XL which she tolerated well. Losartan added. (7) COVID: Code(s): U07.1 - COVID-19 Status: Acute Assessment and Plan: Patient found to have COVID. She believes she received the COVID vaccine. CT chest showing mild atelectasis. on room air, continue to monitor (8) Fracture, humerus closed: Code(s): S42.309A - Unspecified fracture of shaft of humerus, unspecified arm, initial encounter for closed fracture Status: Inactive Assessment and Plan: Patient with known right humerus fracture that is in 3 parts. This is associated with blood loss and bruising. No BP in right arm. Use sling as needed for comfort Right arm edematous. Doppler negative for DVT but shows right basilic vein thrombosis. Heating pad added. ortho consulted. Continue PT/OT (9) Diabetes mellitus: Code(s): E11.9 - Type 2 diabetes mellitus without complications Status: Acute Assessment and Plan: Patient with DM and is poorly controlled with A1c 12.6%. She does not take her insulin at home and rarely checks her glucose. Continue AccuCheks covering with sliding scale. Hypoglycemia protocol available as needed. Glucose better this morning. Continue Lantus. Continue diabetic diet. (10) Hx of completed stroke: Code(s): Z86.73 - Personal history of transient ischemic attack (TIA), and cerebral infarction without residual deficits Status: Acute Assessment and Plan: Head CT showing old CVAs right occipital, bilateral basal ganglia, right internal capsule and right thalamus. She is on ASA but not on Plavix or lipitor at home Bedside swallow was normal. Started on full liquid diet due to n/v. Advanced to soft and bite sized level 6 . Added back ASA and Lipitor. (11) Smoker: Code(s): F17.200 - Nicotine dependence, unspecified, uncomplicated Status: Acute Assessment and Plan: Patient was congratulated on stopping smoking. (12) Bedbug bite: Code(s): W57.XXXA - Bitten or stung by nonvenomous insect and other nonvenomous arthropods, initial encounter Status: Acute Assessment and Plan: Patient with bedbug infestation at home and was noted to have excoriation and pruritus. Infectious Disease RN notified. Her symptoms are much better and no further bedbugs (last 'sighting' was incorrect). Continue to monitor. Plan DVT prophylaxis - SCDs Code status - Full Disposition: Awaiting placement Subjective Date/time seen: 04/16/24 13:26 Interval history: 63yo female with hx of CVAs and DM here for weakness. Slept okay. No n/v. Pain better. No cough. No CP or sob. Eating okay. Exam Narrative: AF 98.5 135/66 75 18 98% ra Gen - NARD Chest - CTA bilaterally, nml RR CV - RRR S1/S2 Abd - soft. NT/ND Ext - no pedal edema. Rt hand edema. Psych - normal mood and affect. Skin - warm and dry Objective Data Vital Signs Vital Signs: Vital Signs - 24 hr 04/15/24 13:54 04/15/24 21:59 04/16/24 05:55 Temperature 97.8 F 98.2 F 98.5 F Pulse Rate 76 78 71 Respiratory Rate 18 20 18 Blood Pressure 128/69 134/81 135/66 Pulse Oximetry 99 98 98 Oxygen Delivery 04/16/24 08:00 04/16/24 10:15 Temperature Pulse Rate 75 Respiratory Rate Blood Pressure Pulse Oximetry Oxygen Delivery Room Air Intake/Output Intake/Output: Intake & Output 04/13/24 04/14/24 04/15/24 04/16/24 23:59 23:59 23:59 23:59 Intake Total 1150 2060 1850 320 Output Total 350 1750 400 Balance 1150 1710 100 -80 Meds/Results Medications: Active Medications Generic Name Dose Route Start Last Admin Trade Name Freq PRN Reason Stop Dose Admin Acetaminophen 650 mg 04/02/24 09:53 04/15/24 20:35 Acetaminophen 325 Mg Tablet PO 650 mg Q6H PRN Administration Mild Pain (1-5) Or Fever Aspirin 81 mg 04/15/24 09:00 04/16/24 10:16 Aspirin 81 Mg Chewable Tablet PO 81 mg DAILY PRERNA Administration Atorvastatin Calcium 40 mg 04/03/24 09:00 04/16/24 10:16 Atorvastatin 40 Mg Tablet PO 40 mg DAILY PRERNA Administration Dextrose 12.5 gm 04/02/24 07:07 Dextrose 50% 25 Gm/50 Ml Syringe IV PUSH PRN PRN Hypoglycemia Protocol Glucagon 1 mg 04/02/24 07:07 Glucagon For Inj 1 Mg Vial IM PRN PRN Hypoglycemia Protocol Glucose 15 gm 04/02/24 07:07 Glucose Oral Gel 15 Gm Of Glucse In 37.5 Gm Tube PO PRN PRN Hypoglycemia Protocol Dextrose 1,000 mls @ 100 mls/hr 04/02/24 07:07 Dextrose 5% 1,000 Ml IVPB PRN PRN Hypoglycemia Protocol Insulin Aspart 4 - 8 units 04/02/24 08:00 04/16/24 10:17 Insulin Aspart (*Bkc) 100 Units/Ml SUB-Q Not Given TIDWM PRERNA Protocol Insulin Glargine 20 units 04/15/24 21:00 04/15/24 20:35 Insulin Glargine (*Bkc) 100 Units/Ml SUB-Q 20 units HS PRERNA Administration Losartan Potassium 25 mg 04/12/24 09:00 04/16/24 10:16 Losartan Potassium 25 Mg Tablet PO 25 mg DAILY PRERNA Administration Metoprolol Succinate 12.5 mg 04/10/24 11:40 04/16/24 10:15 Metoprolol Succinate Ext Rel 12.5 Mg Tabcr PO 12.5 mg QAM PRERNA Administration Miscellaneous Information 1 each 04/11/24 00:01 [place] Needs To Be Renewed Or It Will Automatically Discontinue. XX 05/11/24 00:00 CLARIFY [facility] Miscellaneous Information 1 each 04/13/24 00:01 Order Clarification XX 05/13/24 00:00 CLARIFY [facility] Multivitamins/Calcium 1 tablet 04/07/24 09:00 04/16/24 10:16 Therapeutic Multivitamins/Minerals Tab (*Bkc) PO 1 tablet DAILY PRERNA Administration Ondansetron HCl 4 mg 04/02/24 09:53 04/03/24 10:47 Ondansetron Inj 4 Mg/2 Ml Vial IV PUSH 4 mg Q6H PRN Administration Nausea And Vomiting Pantoprazole Sodium 40 mg 04/06/24 09:55 04/16/24 10:16 Pantoprazole 40 Mg Tablet PO 40 mg Q12HR PRERNA Administration Zinc Acetate/Diphenhydramine 1 applic 04/03/24 14:15 04/09/24 14:29 Diphenhydramine 1%/Zinc 0.1% Cream 30 Gm Tube TOPICAL 1 applic QID PRN Administration Itching Radiology Results: ITS Impressions Humerus X-Ray 04/01/24 21:37 IMPRESSION: 1. Comminuted three-part fracture of proximal right humerus. Head CT 04/01/24 21:47 IMPRESSION: 1. 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 2. Mild nonspecific cerebral white matter disease, which likely represents chronic small vessel ischemic disease. 3. Right-sided parotiditis. Cervical Spine CT 04/01/24 21:50 IMPRESSION: 1. No fracture. 2. Mild cervical spondylosis. 3. Right-sided parotiditis. 4. Mild bilateral cervical lymphadenopathy, likely reactive. Chest CT 04/01/24 21:56 IMPRESSION: 1. Small pericardial effusion. 2. Comminuted fracture of proximal right humerus. Abdomen/Pelvis CT 04/02/24 06:28 IMPRESSION: 1. Cystitis. 2. Thrombus in left ventricular apex of the heart. Venous Doppler Study 04/15/24 15:32 IMPRESSION: THROMBOSED RIGHT BASILIC VEIN. OTHERWISE, UNREMARKABLE. Labs Labs: Laboratory Results - last 24 hr 04/15/24 04/15/24 04/16/24 16:24 20:13 08:21 POC Capillary Glucose 223 H 252 H 189 H 04/16/24 11:46 POC Capillary Glucose 194 H
[2024-04-16 14:00] VITALS: BP 138/62; PULSE 73; RESP 16; TEMP 36.6; O2SAT 95
[2024-04-16 16:19] LABS: Glucose Point of Care 199 mg/dl (65-105)
[2024-04-16 20:39] LABS: Glucose Point of Care 266 mg/dl (65-105)
[2024-04-16] MEDS: INSULIN GLARGINE (*BKC) 100 UNITS/ML 20 UNITS SUB-Q (20:49)
[2024-04-16 22:00] VITALS: BP 126/55; PULSE 75; RESP 16; TEMP 36.5; O2SAT 95
[2024-04-16] MEDS: ACETAMINOPHEN 325 MG TABLET 650 MG PO (22:15)
[2024-04-17 05:11] VITALS: BP 136/80; PULSE 75; RESP 20; TEMP 36.4; O2SAT 95
[2024-04-17 08:45] LABS: Glucose Point of Care 164 mg/dl (65-105)
[2024-04-17 09:11] VITALS: PULSE 75
[2024-04-17] MEDS: LOSARTAN POTASSIUM 25 MG TABLET PO (09:11)
[2024-04-17] MEDS: THERAPEUTIC MULTIVITAMINS/MINERALS TAB (*BKC) 1 TABLET PO (09:11)
[2024-04-17] MEDS: ASPIRIN 81 MG CHEWABLE TABLET PO (09:11)
[2024-04-17] MEDS: ATORVASTATIN 40 MG TABLET PO (09:11)
[2024-04-17] MEDS: PANTOPRAZOLE 40 MG TABLET PO ×2 (09:11→20:06)
[2024-04-17] MEDS: METOPROLOL SUCCINATE EXT REL 12.5 MG TABCR PO (09:11)
[2024-04-17 12:31] LABS: Glucose Point of Care 253 mg/dl (65-105)
[2024-04-17] MEDS: INSULIN ASPART (*BKC) 100 UNITS/ML SUB-Q (12:42)
[2024-04-17 14:00] VITALS: BP 111/65; PULSE 89; RESP 16; TEMP 36.9; O2SAT 96
--- NOTE | 2024-04-17 15:04 | PM.IMPN ---
Progress Note: A&P Assessment and Plan (1) Sepsis: Code(s): A41.9 - Sepsis, unspecified organism Status: Acute Assessment and Plan: Patient presents with weakness and found to have sepsis with tachycardia, leukocytisis and elevated lactic. She received appropriate IV fluids in ED. Source is COVID, UTI and/or parotiditis. Started on Rocephin and Flagyl after Cx collected. May have conjunctivitis but sclera clear so this may be coming from the tear duct; this has resolved WBC worsened and Parotid exam worsened so Vanco added and Rocephin increased 04/03. BCx negative. UCx growing relatively woods-sensitive EColi. Stool Cx negative. WBC better. Parotid exam much improved and patient feels better Switched to Augmentin and doxycycline and finished a 2 week course on 04/15/24 Resolved (2) Anemia: Code(s): D64.9 - Anemia, unspecified Status: Acute Assessment and Plan: Hgb low on admission at 8.6. Hgb was 12 in July. She does take ASA but not Plavix at home. Suspect anemia is from recent fracture and noted ecchymosis. Stool guaiac negative by ED exam. She was having bilious emesis on admission but not felt to be coffee ground. Hgb dropped to 6.0 on 04/02 and transfused 2U PRBCs. Could be acute blood loss and/or Hgb drop from IV fluids. PPI added. Iron studies consistent with anemia of chronic disease. B12/folate normal. Hgb 6.1 04/04 and 2u PRBCs ordered again. GI consulted and appreciate their input. Since last transfusion, Hgb stable mostly in the 9 range. Monitor HH and transfuse to a stable Hgb. Added back ASA (3) Acute parotitis: Code(s): K11.21 - Acute sialoadenitis Status: Acute Assessment and Plan: Imaging and exam confirm right parotiditis. Started on Rocephin and Flagyl MRSA nasal swab negative No fevers but WBC higher so Rocephin dose advanced and Vanco added 04/03. Clinically much better and WBC improved. Completed abx course (4) Stage 3a chronic kidney disease (CKD): Code(s): N18.31 - Chronic kidney disease, stage 3a Status: Acute Assessment and Plan: Cr normal in 2022. Cr 1.2-1.8 range July 2023 for CVA. Possibly an acute component of contrast induced nephropathy. Here, Cr 1.8 and climbed to 2.1. BUN up to 92; related to occult GI bleed? CKD probably related to DM. ROCIO related to sepsis, UTI, parotiditis, anemia, COVID, HoTN CT Abd/pelvis showing cystitis, cortical thinning of the kidneys and a 6.3cm right renal cyst. There is also gas in the bladder and left kidney likely form instrumentation but consider pyelonephritis. UCx growing EColi that is pansensitive. She was given IV fluids and UOP better. Midodrine added for HoTN but able to be weaned off. Serum bicarb 15 (AG 6) so oral bicarb added Cr down to 1.2-1.5. Serum bicarb improved so bicarb tabs stopped. Follow renal function, electrolytes and UOP periodically. (5) UTI (urinary tract infection): Code(s): N39.0 - Urinary tract infection, site not specified Status: Acute Assessment and Plan: UA is consistent with UTI except for moderate squamous cells and relatively asymptomatic. UCx collected. CT scan showing bladder wall thickening c/w cystitis. Also with gas in the bladder and left kidney likely form instrumentation but consider pyelonephritis. Rocephin started. Green placed. UCx growing relatively woods-sensitive EColi. Completed abx. Green out now (6) LV (left ventricular) mural thrombus: Code(s): I51.3 - Intracardiac thrombosis, not elsewhere classified Status: Acute Assessment and Plan: CT Abd showing a LV thrombus. No hx of CAD or signs of CHF to suggest poor LV function. Echo in July 2023 showing normal LV systolic function with EF 55-60% and grade I diastolic dysfxn. Heparin drip was ordered but never started due to anemia Echo this admission showing LV mildly enlarged with moderately reduced LV systolic fxn with EF 40-45% and diastolic dysfunction. No visualized thrombus in the LV by Echo. Will plan to start GDT if BP allows and renal function continues to improve. held midodrine 04/08 Blood pressure stable so restarted Toprol XL which she tolerated well. Losartan added. (7) COVID: Code(s): U07.1 - COVID-19 Status: Acute Assessment and Plan: Patient found to have COVID. She believes she received the COVID vaccine. CT chest showing mild atelectasis. on room air, continue to monitor (8) Fracture, humerus closed: Code(s): S42.309A - Unspecified fracture of shaft of humerus, unspecified arm, initial encounter for closed fracture Status: Inactive Assessment and Plan: Patient with known right humerus fracture that is in 3 parts. This is associated with blood loss and bruising. No BP in right arm. Use sling as needed for comfort Right arm edematous. Doppler negative for DVT but shows right basilic vein thrombosis. Heating pad added. ortho consulted. Continue PT/OT (9) Diabetes mellitus: Code(s): E11.9 - Type 2 diabetes mellitus without complications Status: Acute Assessment and Plan: Patient with DM and is poorly controlled with A1c 12.6%. She does not take her insulin at home and rarely checks her glucose. Continue AccuCheks covering with sliding scale. Hypoglycemia protocol available as needed. Glucose better this morning. Continue Lantus. Continue diabetic diet. (10) Hx of completed stroke: Code(s): Z86.73 - Personal history of transient ischemic attack (TIA), and cerebral infarction without residual deficits Status: Acute Assessment and Plan: Head CT showing old CVAs right occipital, bilateral basal ganglia, right internal capsule and right thalamus. She is on ASA but not on Plavix or lipitor at home Bedside swallow was normal. Started on full liquid diet due to n/v. Advanced to soft and bite sized level 6 . Added back ASA and Lipitor. (11) Smoker: Code(s): F17.200 - Nicotine dependence, unspecified, uncomplicated Status: Acute Assessment and Plan: Patient was congratulated on stopping smoking. (12) Bedbug bite: Code(s): W57.XXXA - Bitten or stung by nonvenomous insect and other nonvenomous arthropods, initial encounter Status: Acute Assessment and Plan: Patient with bedbug infestation at home and was noted to have excoriation and pruritus. Infectious Disease RN notified. Her symptoms are much better and no further bedbugs (last 'sighting' was incorrect). Continue to monitor. Plan DVT prophylaxis - SCDs Code status - Full Disposition: Awaiting placement Subjective Date/time seen: 04/17/24 15:04 Interval history: 63yo female with hx of CVAs and DM here for weakness. No problems overnight. No CP, SOB, nausea, vomiting or cough. Exam Narrative: AF 97.5 136/80 75 20 95% ra Gen - NARD Chest - CTA bilaterally, nml RR CV - RRR S1/S2 Abd - soft. NT/ND Ext - no pedal edema. Rt hand edema. Psych - normal mood and affect. Skin - warm and dry Objective Data Vital Signs Vital Signs: Vital Signs - 24 hr 04/16/24 22:00 04/17/24 05:11 04/17/24 09:11 Temperature 97.7 F 97.5 F L Pulse Rate 75 75 75 Respiratory Rate 16 20 Blood Pressure 126/55 L 136/80 Pulse Oximetry 95 95 Intake/Output Intake/Output: Intake & Output 04/14/24 04/15/24 04/16/24 04/17/24 23:59 23:59 23:59 23:59 Intake Total 2060 1850 440 770 Output Total 350 1750 1200 670 Balance 1710 100 -760 100 Meds/Results Medications: Active Medications Generic Name Dose Route Start Last Admin Trade Name Freq PRN Reason Stop Dose Admin Acetaminophen 650 mg 04/02/24 09:53 04/16/24 22:15 Acetaminophen 325 Mg Tablet PO 650 mg Q6H PRN Administration Mild Pain (1-5) Or Fever Aspirin 81 mg 04/15/24 09:00 04/17/24 09:11 Aspirin 81 Mg Chewable Tablet PO 81 mg DAILY PRERNA Administration Atorvastatin Calcium 40 mg 04/03/24 09:00 04/17/24 09:11 Atorvastatin 40 Mg Tablet PO 40 mg DAILY PRERNA Administration Dextrose 12.5 gm 04/02/24 07:07 Dextrose 50% 25 Gm/50 Ml Syringe IV PUSH PRN PRN Hypoglycemia Protocol Glucagon 1 mg 04/02/24 07:07 Glucagon For Inj 1 Mg Vial IM PRN PRN Hypoglycemia Protocol Glucose 15 gm 04/02/24 07:07 Glucose Oral Gel 15 Gm Of Glucse In 37.5 Gm Tube PO PRN PRN Hypoglycemia Protocol Dextrose 1,000 mls @ 100 mls/hr 04/02/24 07:07 Dextrose 5% 1,000 Ml IVPB PRN PRN Hypoglycemia Protocol Insulin Aspart 4 - 8 units 04/02/24 08:00 04/17/24 12:42 Insulin Aspart (*Bkc) 100 Units/Ml SUB-Q 5 units TIDWM PRERNA Administration Protocol Insulin Glargine 20 units 04/15/24 21:00 04/16/24 20:49 Insulin Glargine (*Bkc) 100 Units/Ml SUB-Q 20 units HS PRERNA Administration Losartan Potassium 25 mg 04/12/24 09:00 04/17/24 09:11 Losartan Potassium 25 Mg Tablet PO 25 mg DAILY PRERNA Administration Metoprolol Succinate 12.5 mg 04/10/24 11:40 04/17/24 09:11 Metoprolol Succinate Ext Rel 12.5 Mg Tabcr PO 12.5 mg QAM PRERNA Administration Miscellaneous Information 1 each 04/11/24 00:01 [place] Needs To Be Renewed Or It Will Automatically Discontinue. XX 05/11/24 00:00 [facility] Miscellaneous Information 1 each 04/13/24 00:01 Order Clarification XX 05/13/24 00:00 [facility] Multivitamins/Calcium 1 tablet 04/07/24 09:00 04/17/24 09:11 Therapeutic Multivitamins/Minerals Tab (*Bkc) PO 1 tablet DAILY PRERNA Administration Ondansetron HCl 4 mg 04/02/24 09:53 04/03/24 10:47 Ondansetron Inj 4 Mg/2 Ml Vial IV PUSH 4 mg Q6H PRN Administration Nausea And Vomiting Pantoprazole Sodium 40 mg 04/06/24 09:55 04/17/24 09:11 Pantoprazole 40 Mg Tablet PO 40 mg Q12HR PRERNA Administration Zinc Acetate/Diphenhydramine 1 applic 04/03/24 14:15 04/09/24 14:29 Diphenhydramine 1%/Zinc 0.1% Cream 30 Gm Tube TOPICAL 1 applic QID PRN Administration Itching Radiology Results: ITS Impressions Humerus X-Ray 04/01/24 21:37 IMPRESSION: 1. Comminuted three-part fracture of proximal right humerus. Head CT 04/01/24 21:47 IMPRESSION: 1. 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 2. Mild nonspecific cerebral white matter disease, which likely represents chronic small vessel ischemic disease. 3. Right-sided parotiditis. Cervical Spine CT 04/01/24 21:50 IMPRESSION: 1. No fracture. 2. Mild cervical spondylosis. 3. Right-sided parotiditis. 4. Mild bilateral cervical lymphadenopathy, likely reactive. Chest CT 04/01/24 21:56 IMPRESSION: 1. Small pericardial effusion. 2. Comminuted fracture of proximal right humerus. Abdomen/Pelvis CT 04/02/24 06:28 IMPRESSION: 1. Cystitis. 2. Thrombus in left ventricular apex of the heart. Venous Doppler Study 04/15/24 15:32 IMPRESSION: THROMBOSED RIGHT BASILIC VEIN. OTHERWISE, UNREMARKABLE. Labs Labs: Laboratory Results - last 24 hr 04/16/24 04/16/24 04/17/24 16:11 20:20 08:26 POC Capillary Glucose 199 H 266 H 164 H 04/17/24 12:08 POC Capillary Glucose 253 H
[2024-04-17 17:17] LABS: Glucose Point of Care 148 mg/dl (65-105)
[2024-04-17 19:59] VITALS: BP 144/83; PULSE 74; RESP 16; TEMP 36.8; O2SAT 97
[2024-04-17] MEDS: ACETAMINOPHEN 325 MG TABLET 650 MG PO (20:06)
[2024-04-17] MEDS: INSULIN GLARGINE (*BKC) 100 UNITS/ML 23 UNITS SUB-Q (20:38)
[2024-04-17 21:19] LABS: Glucose Point of Care 171 mg/dl (65-105)
[2024-04-18 05:33] VITALS: BP 130/89; PULSE 79; RESP 16; TEMP 37.3; O2SAT 97
[2024-04-18] MEDS: ACETAMINOPHEN 325 MG TABLET 650 MG PO ×2 (05:38→15:01)
[2024-04-18 08:22] LABS: Glucose Point of Care 122 mg/dl (65-105)
[2024-04-18 10:33] VITALS: PULSE 80
[2024-04-18] MEDS: LOSARTAN POTASSIUM 25 MG TABLET PO (10:33)
[2024-04-18] MEDS: METOPROLOL SUCCINATE EXT REL 12.5 MG TABCR PO (10:33)
[2024-04-18] MEDS: ASPIRIN 81 MG CHEWABLE TABLET PO (10:33)
[2024-04-18] MEDS: ATORVASTATIN 40 MG TABLET PO (10:33)
[2024-04-18] MEDS: THERAPEUTIC MULTIVITAMINS/MINERALS TAB (*BKC) 1 TABLET PO (10:34)
[2024-04-18] MEDS: PANTOPRAZOLE 40 MG TABLET PO (10:35)
[2024-04-18 12:48] LABS: Glucose Point of Care 171 mg/dl (65-105)
[2024-04-18 14:00] VITALS: BP 135/75; PULSE 73; RESP 18; TEMP 36.9; O2SAT 99
--- NOTE | 2024-04-18 14:50 | P.DS_ITS ---
DS: Admitting Diagnosis Discharge Date 04/18/24 Admitting Diagnosis Weakness DS: Discharge Diagnosis Discharge Diagnosis (1) Sepsis: Code(s): A41.9 - Sepsis, unspecified organism Status: Acute (2) Anemia: Code(s): D64.9 - Anemia, unspecified Status: Acute (3) Acute parotitis: Code(s): K11.21 - Acute sialoadenitis Status: Acute (4) Stage 3a chronic kidney disease (CKD): Code(s): N18.31 - Chronic kidney disease, stage 3a Status: Acute (5) UTI (urinary tract infection): Code(s): N39.0 - Urinary tract infection, site not specified Status: Acute (6) LV (left ventricular) mural thrombus: Code(s): I51.3 - Intracardiac thrombosis, not elsewhere classified Status: Acute (7) COVID: Code(s): U07.1 - COVID-19 Status: Acute (8) Fracture, humerus closed: Code(s): S42.309A - Unspecified fracture of shaft of humerus, unspecified arm, initial encounter for closed fracture Status: Inactive (9) Diabetes mellitus: Code(s): E11.9 - Type 2 diabetes mellitus without complications Status: Acute (10) Hx of completed stroke: Code(s): Z86.73 - Personal history of transient ischemic attack (TIA), and cerebral infarction without residual deficits Status: Acute (11) Smoker: Code(s): F17.200 - Nicotine dependence, unspecified, uncomplicated Status: Acute (12) Bedbug bite: Code(s): W57.XXXA - Bitten or stung by nonvenomous insect and other nonvenomous arthropods, initial encounter Status: Acute DS: Summary Hospital Course Reason for hospitalization: 63yo female with hx of CVAs and DM here for weakness. Please see H&P for d etails. Hospital Course: Following issues were addressed during her hospital course: (1) Sepsis: Patient presented with weakness and found to have sepsis with tachycardia, leukocytosis and elevated lactic. She received appropriate IV fluids in ED. Source was due to COVID, UTI and/or parotiditis. Started on Rocephin and Flagyl after Cx collected. May have conjunctivitis but sclera clear so this may be coming from the tear duct; this has resolved. WBC worsened and Parotid exam worsened so Vanco added and Rocephin increased. BCx negative. UCx growing relatively woods-sensitive EColi. Stool Cx negative. WBC better. Parotid exam much improved and patient had clinical improvement. Switched to Augmentin and doxycycline and finished a 2 week course of abx. (2) Anemia: Hgb low on admission at 8.6. Hgb was 12 in July. She does take ASA but not Plavix at home. Suspect anemia is from recent fracture and noted ecchymosis. Stool guaiac negative by ED exam. She was having bilious emesis on admission but not felt to be coffee ground. Hgb dropped to 6.0 on 04/02 and transfused 2U PRBCs. Could be acute blood loss and/or Hgb drop from IV fluids. PPI added. Iron studies consistent with anemia of chronic disease. B12/folate normal. Hgb 6.1 04/04 and 2u PRBCs ordered again. GI consulted and appreciate their input. Since last transfusion, Hgb stable mostly in the 9 range. Ultimately able to add back ASA. (3) Acute parotitis: Imaging and exam confirm right parotiditis. Started on Rocephin and Flagyl. MRSA nasal swab negative. No fevers but WBC higher so Rocephin dose advanced and Vanco added. Clinically much better and WBC improved. Completed abx course (4) Stage 3a chronic kidney disease (CKD): Cr normal in 2022. Cr 1.2-1.8 range July 2023 when hospitalized for CVA but possibly an acute component of contrast induced nephropathy at that time. Here, Cr 1.8 and climbed to 2.1. BUN up to 92. CKD probably related to DM. ROCIO related to sepsis, UTI, parotiditis, anemia, COVID, HoTN. CT Abd/pelvis showing cystitis, cortical thinning of the kidneys and a 6.3cm right renal cyst. There is also gas in the bladder and left kidney likely form instrumentation but consider pyelonephritis. UCx growing EColi that was pansensitive. She was given IV fluids and UOP better. Midodrine added for HoTN but able to be weaned off. Serum bicarb 15 (AG 6) so oral bicarb added. Cr down to 1.2-1.5. Serum bicarb improved so bicarb tabs stopped. (5) UTI (urinary tract infection): UA is consistent with UTI except for moderate squamous cells and relatively asymptomatic. UCx collected. CT scan showing bladder wall thickening c/w cystitis. Also with gas in the bladder and left kidney likely form instrumentation but consider pyelonephritis. Rocephin started. Green placed. UCx growing relatively woods-sensitive EColi. Completed abx. Green out now (6) LV (left ventricular) mural thrombus: CT Abd showing a LV thrombus. No hx of CAD or signs of CHF to suggest poor LV function. Echo in July 2023 showing normal LV systolic function with EF 55-60% and grade I diastolic dysfxn. Heparin drip was ordered but never started due to anemia. Echo this admission showing LV mildly enlarged with moderately reduced LV systolic fxn with EF 40-45% and diastolic dysfunction. No visualized thrombus in the LV by Echo. Blood pressure stable so restarted Toprol XL which she tolerated well. Losartan added as well.. (7) COVID: Patient found to have COVID. She believes she received the COVID vaccine. CT chest showing mild atelectasis. She remained on room air. (8) Fracture, humerus closed: Patient with known recent right humerus fracture that is in 3 parts. This is associated with blood loss and bruising. No BP in right arm. Use sling as needed for comfort. Right arm edematous. Doppler negative for DVT but shows right basilic vein thrombosis. Heating pad added. Ortho was consulted. Continue PT/OT (9) Diabetes mellitus: Patient with DM and is poorly controlled with A1c 12.6%. She does not take her insulin at home and rarely checks her glucose. Monitored with AccuCheks covering with sliding scale. Hypoglycemia protocol was available as needed. Glucose better. (10) Hx of completed stroke: Head CT showing old CVAs right occipital, bilateral basal ganglia, right internal capsule and right thalamus. She is on ASA but not on Plavix or lipitor at home. Bedside swallow was normal. Started on full liquid diet due to n/v. Advanced to soft and bite sized level 6 . Added back ASA and Lipitor. (11) Smoker: Patient was congratulated on stopping smoking. (12) Bedbug bite: Patient with bedbug infestation at home and was noted to have excoriation and pruritus. Infectious Disease RN notified. Her symptoms are much better and no further bedbugs (last 'sighting' was incorrect). She overall did well and was able be discharged home with home health on 04/18/2024. Status at Discharge Cognitive/behavioral status at discharge: Stable Time Spent with Patient Time attestation: Total time spent providing and/or coordinating discharge services: 38 minutes Time spent: Greater than 30 minutes Exam Narrative: AF 99.1 130/89 80 16 97% ra Gen - NARD Chest - few scattered rhonchi, nml rr CV - RRR S1/S2 Abd - soft. NT/ND Ext - no pedal edema. Rt hand edema much improved. Psych - normal mood and affect. Skin - warm and dry DS: Data Data Completed and Pending Labs on day of discharge: Labs from last 24 hours 04/18/24 04/18/24 04/17/24 12:16 08:17 20:19 POC Capillary Glucose 171 H 122 H 171 H 04/17/24 17:02 POC Capillary Glucose 148 H Discharge Plan Discharge Attending physician on discharge: Gerardo Fonseca Consulting providers: Percy Deshpande; Schuyler Alvarez Discharging Clinician: Gerardo Fonseca Anticipated Discharge Date/Time: 04/18/24 15:20 Patient Disposition: Home Health Service Activity: as tolerated Diet: diabetic and other - see discharge instructions Discharge Instructions: Soft and bite size level 6 diet. Small bites with sips. Slow down the pace of oral intake. Sit upright during meals. Alternate solids and liquids. One on 1 supervision during meals. Please check glucose before meals and before bed. Record and bring into your doctor for review. Take precautions to avoid falls. Rise slowly from a lying or sitting position. Pause before standing or walking. Check daily morning weights after voiding. Call your doctor if you gain more than 3 lb in 2 days or 5 lb in 1 week. Contact your doctor or call 911 and come to the Emergency Room if you have fev ers, lightheadedness with standing or other worrisome symptoms. Avoid NSAIDs (ibuprofen, naproxen, Aleve). Tylenol is safe to take. Take your medications as prescribed. Follow-up with your primary care provider in 1-2 weeks. Please call for appointment. Thank you for using [facility] for your health care needs. Patient Instructions: Antibiotic Form Patient Language: Martiniquais Stand Alone Forms: General Discharge Information Follow-up/Referrals: Guanako,Hyacinth Knight MD [Primary Care Provider] - Call for Appointment Discharge Medications: New (DME) blood-glucose meter [OneTouch Verio Flex meter] [facility] [place] Qty: 1 0RF Rx Instructions: May substitute to in-stock meter and/or covered by insurance. Use As Directed (DME) OneTouch Verio test strips Strip Qty: 1 0RF Rx Instructions: May substitute to in-stock and/or covered by insurance strips. Use As Directed (DME) insulin syringe-needle U-100 [BD Veo Insulin Syringe UF] 1/2 mL 31 gauge x 15/64 syringe Qty: 1 0RF Rx Instructions: 0.5 mL syringe for doses up to 50 units. May substitute to meet patient needs. Use As Directed (DME) lancets [OneTouch Delica Plus Lancet] 30 gauge [facility] [place] Qty: 1 0RF Rx Instructions: May substitute to in-stock and/or covered by insurance lancets. Use As Directed losartan 25 mg Tablet 25 mg PO DAILY Qty: 30 1RF metoprolol succinate [Toprol XL] 25 mg tablet extended release 24 hr 12.5 mg PO QAM Qty: 30 1RF metoprolol succinate [Toprol XL] 25 mg tablet extended release 24 hr 12.5 mg PO QAM Qty: 30 1RF Continued aspirin 81 mg tablet,chewable 1 tablet PO DAILY atorvastatin 40 mg tablet 40 mg PO DAILY Qty: 30 1RF Patient Comments: PATIENT HASNT STARTED YET MED HASNT BEEN PICKEDUP/RECEIVED YET PER SPOUSE Changed insulin glargine [Lantus Solostar U-100 Insulin] 100 unit/mL (3 mL) insulin pen 23 unit SUBCUT HS Qty: 15 1RF Patient Comments: Patient has not taken due to running out Discontinued clopidogrel 75 mg Tablet 75 mg PO QAM 90 Days Qty: 90 1RF clotrimazole 1 % cream 1 applic TOPICAL BID PRN (Reason: Rash) Rx Instructions: Apply to left arm rash Date of admission: 04/03/24 15:49 Primary Care Provider: Guanako,Hyacinth Knight Admitting Provider: Carola Danielle Attending physician on admission: Carola Danielle Condition: Stable Hospitalist MIPS Heart Failure (Exclusion) Patient has history of Heart Transplant or Left Ventricular Assistive Device?: No IF YES, STOP HERE Heart Failure (Qualifier) Patient has current or prior documentation of LVEF less than or equal to 40%, or mod/servere depressed LVSF?: Yes IF NO, STOP HERE If Yes, Heart Failure (Qualifier) Patient was prescribed or already taking an Angiotensin-Converting Enzyme (DARIO) Inhibitor, or Antiotensin Receptor Meghna (ARB): Yes Patient was prescribed or already taking bisoprolol, carvedilol, or sustained release metoprolol succinate: Yes
[2024-04-18 16:23] LABS: Glucose Point of Care 239 mg/dl (65-105)
== END 2024-04-18 17:45 | disposition home health service (06) | DRG 720 ==
LOC: ANHED 04-02 02:52 → ANH3MEDSUR 04-02 05:13
PROVIDERS: Internal Medicine; Admitting Provider Internal Medicine; Emergency Provider Emergency Medicine; PCP Emergency Medicine; Visit Provider Internal Medicine
DX: A41.9 Sepsis, unspecified organism (principal); U07.1 COVID-19; N39.0 Urinary tract infection, site not specified; K11.21 Acute sialoadenitis; I82.611 Acute embolism and thrombosis of superficial veins of right upper extremity; N18.31 Chronic kidney disease, stage 3a; D63.8 Anemia in other chronic diseases classified elsewhere; I51.3 Intracardiac thrombosis, not elsewhere classified; E11.22 Type 2 diabetes mellitus with diabetic chronic kidney disease; T14.8XXA Other injury of unspecified body region, initial encounter; B88.8 Other specified infestations; B96.20 Unspecified Escherichia coli [E. coli] as the cause of diseases classified elsewhere; F17.210 Nicotine dependence, cigarettes, uncomplicated; W19.XXXD Unspecified fall, subsequent encounter; S42.201D Unspecified fracture of upper end of right humerus, subsequent encounter for fracture with routine healing; Z79.82 Long term (current) use of aspirin; Z86.73 Personal history of transient ischemic attack (TIA), and cerebral infarction without residual deficits
CPT/HCPCS: 36415; 36430; 70450; 71250; 72125; 73060; 74177; 80048; 80053; 80069; 80202; 80307; 81001; 82077; 82274; 82533; 82550; 82570; 82607; 82728; 82746; 82948; 83036; 83540; 83550; 83605; 83615; 83690; 83735; 84100; 84145; 84300; 84443; 84540; 85014; 85018; 85025; 85027; 85610; 85730; 85999; 86850; 86900; 86901; 86923; 87040; 87045; 87086; 87186; 87427; 87449; 87493; 87637; 87641; 92610; 93005; 93306; 93971; 96361; 96365; 96366; 96367; 97110; 97116; 97161; 97166; 97530; 97535; 99285; A4565; A9270; G0378; J0696; J1815; J1836; J2405; J2470; J3370; J3475; J7030; J7050; J7120; P9016; Q9967